=== PATIENT | female | born 1975 | race Caucasian/White ===

== ENCOUNTER → 2018-02-04 07:52 | Outpatient (CLI) | payer MEDICARE, MEDICAID, SELFPAY ==
--- NOTE | 2018-02-04 07:54 | CT_ITS ---
STUDY: CT ABDOMEN AND PELVIS WITHOUT CONTRAST REASON FOR EXAM: Female, 43 years old. Abdominal pain. History of kidney stones. RADIATION DOSAGE (If Supplied By Facility): CTDIvol = ( 22.59 ) mGy, DLP = ( 1083.76 ) mGycm TECHNIQUE: Transaxial images were obtained from the dome of the diaphragm to the symphysis pubis without oral contrast, and without intravenous contrast. Sagittal and coronal images were reconstructed. Individualized dose optimization techniques were used for this CT. COMPARISON: Comparison is made with prior examination dated May 05, 2016. FINDINGS: There is elevation of the left hemidiaphragm. Stable increased markings with areas of confluence in both lower lobes worse on the left side. This most likely than scarring. The visualized portions of the heart are within normal limits. Normal liver. Normal gallbladder and extrahepatic biliary system. Normal spleen. Normal pancreas. Normal bilateral adrenal glands. Normal right kidney. 3 mm calculus in the midportion of the left kidney. Normal visualized stomach. Normal small intestine. There are multiple colonic diverticula consistent with diverticulosis. The appendix is visualized and appears normal. Normal abdominal aorta. Normal inferior vena cava. There is borderline retroperitoneal lymphadenopathy with enlarged nodes no greater than 10mm in the short axis diameter. A Mccarthy catheter is seen within the urinary bladder. The urinary bladder is collapsed. There is evidence of a 0.9 cm x 2.5 cm calculus at the base of the bladder posteriorly. This appears to be entering the urethra. There is evidence of ulcerations in the medial aspect of the left buttock with underlying soft tissue changes. 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 There is evidence of prior Reed hip pinning of the proximal left femur. CT/Abdomen/Pelvis without Cont IMPRESSION: 2.5 cm x 0.9 cm focus at the base of the bladder posteriorly as it enters the urethra. Ulcerations in the medial aspect of the left buttock. Stable scarring and/or atelectasis at the lung bases Electronically Signed: Roosevelt Galvez MD at 13:38 EDT Tel [phone], Service support ,
--- OUTSIDE RECORDS SUMMARY | 2018-02-04 08:00 | XMS RPT_ITS ---
:1975 Author Organization [facility] Care Team Providers Name Role Phone Renzo Siu Attending Unavailable Primay Care Physicia, No Primary Care Unavailable Renzo Siu Attending Unavailable Primay Care Physicia, No Primary Care Unavailable Lavon Vicente Attending Unavailable Lavon Vicente Referring Unavailable Lavon Vicente Primary Care Unavailable PROBLEMS PROBLEMS DATE TYPE CONDITION / CODE ATTENDING STATUS SOURCE 04/13/2017 Unknown ENCOUNTER FOR SoledadabhishekRenzo Active [place] SCREENING FOR [facility] NEOPLASM OF Repository CERVIX / Z12.4(ICD-10) 03/26/2017 Unknown ABNORMAL UTERINE Renzo Siu Active [place] AND VAGINAL Community BLEEDING, Hospital UNSPECIFIED / Repository N93.9(ICD-10) PROCEDURES PROCEDURES No Procedure Records FoundRESULTS RESULTS TRANSVAGINAL Observed: 03/22/2017 Status: F Source: [place] NON- 8:13 AM [facility] REPOSITORY [facility] HOSPITALImaging [id number] [place] [id number] Non-MR#: [id number] Acct: [id number]: HENRIK GARCIA Rep #: [id number]: 1975 F 42 From: Bharathi Cade MDPCP: Care Physician,No Primary Status: REG CLIStudy: Transvaginal Non- Date of Exam: 03/22/17Exam# [id number] Ordering Dr: Renzo Siu MDSTUDY: ULTRASOUND TRANSVAGINALCLINICAL: Female, 42 years old. Postmenopausal vaginal bleedingTECHNIQUE: TransvaginalCOMPARISON: Prior study of 10/20/2016 FINDINGS:Uterus measures 7.2 x 4.5 x 3.4 cm. Uterus is heterogeneous inechogenicity. There are no myometrial masses.Normal endometrial thickness measuring 3 mm. There are no endometrialmasses, and there is no fluid in the endometrial cavity.Normal uterine cervix.Neither ovary was visualized.There is no free fluid in the pelvis. ORDER #: [id number] US/Transvaginal Non-IMPRESSION:The uterus is diffusely heterogeneous in echogenicity. There is noevidence of uterine mass. Endometrium measures 3 mm in thickness and ishyperechoic.Neither ovary was visualized.There is no fluid in the cul-de-sac.Electronically Signed:Bharathi Cade MD at 16:34 EDTTel , Service support , UP: Renzo Siu MD ; No Primary Care Physician Firestopper Technician:Signed PAP I-G W/RFX HRHPV Collected: 03/22/2017 Status: F Source: [place] 8:00 AM [facility] REPOSITORY Order Comment: CYTOLOGY INFORMATION:- CLINICAL INFORMATION: - DATE LMP/MENOPAUSE: MENOPAUSE- COLLECTION VIAL: Thin Prep Vial- SALES OFFICER SOURCE: CERVICAL/ENDOCERVICAL- COLLECTION TECHNIQUE: BRUSH/SPATULASpecimen Comment: [id number] Comment: No. of containers..01 ThinPrep Vial TYPE CODE TESTS RESULT OUT OF RANGE REFERENCE UNITS LAB L7400.0800 Normal . DIAGN Comment Result Comment: NEGATIVE FOR INTRAEPITHELIAL LESION AND MALIGNANCY. LAB L7400.0900 Normal . ADEQ Comment Result Comment: Satisfactory for evaluation. Endocervical and/or squamous metaplasticcells (endocervical component) are present. LAB L7400.1400 Normal . PERFORM Comment Result Comment: Rolo Bob, Air Press Operator (ASCP) LAB L7400.2575 Normal . TEST Comment METHOD Result Comment: This liquid based ThinPrep(R) pap test was screened withthe use of an image guided system. LAB L7400.2600 Normal . COMM . LAB L7400.2700 Normal . PAPSMR Comment Result Comment: The Pap smear is a screening test designed to aid in thedetection of premalignant and malignant conditions of theuterine cervix. It is not a diagnostic procedure andshould not be used as the sole means of detecting cervicalcancer. Both false-positive and false-negative reports dooccur. LAB L7400.2800 Normal . HPV Comment RFLX Result Comment: The HPV DNA reflex criteria were not met with this specimenresult therefore, no HPV testing was performed.Performed at: [address] [id number] Director: Joy Ryan MD, Phone: [phone] Performed By: #### L7400.0350 ####[facility] (refer to report for specific site)refer to report for address and phone number ALLERGIES ALLERGIES DATE TYPE / CODE NAME / CODE REACTION SEVERITY SOURCE 08/16/2016 Drug Sulfa Shortness of Unknown [place] Allergy/416 (Sulfonamide breath Community 303539([facility] Antibiotics)/F[address] [place]) 004450(RXNORM) Repository 08/16/2016 Drug morphine/[id number] Rash Unknown [place] Allergy/416 45(RXNORM) Community 784430([facility] ED CT) Repository 08/16/2016 Drug mometasone Rash Unknown [place] Allergy/416 furoate/[id number] Community 381944([facility] 5(RXNORM) [facility] ED [facility]) Repository 08/16/2016 Drug coconut cant breath Unknown [place] Allergy/416 oil/[id number](RX Community 094910([facility] NORM) [facility] ED CT) Repository 08/16/2016 Drug rivaroxaban/F0060 Rash Unknown [place] Allergy/416 05141(RXNORM) Community 537374([facility] ED CT) Repository 08/16/2016 Drug apixaban/[id number] Rash Unknown [place] Allergy/416 57(RXNORM) [facility] 163239([facility] ED CT) Repository 08/16/2016 Drug Sulfa Shortness of [place] Allergy/416 (Sulfonamide breath Community 979824([facility] Antibiotics)/[address] [place]) 314444(RXNORM) Repository 08/16/2016 Drug morphine/[id number] Rash [place] Allergy/416 45(RXNORM) Community 676083([facility] ED CT) Repository 08/16/2016 Drug mometasone Rash [place] Allergy/416 furoate/[id number] [facility] 354059[facility] ED [facility]) Repository 08/16/2016 Drug coconut cant breath [place] Allergy/416 oil/[id number](RX Community 407876([facility] ED CT) Repository 08/16/2016 Drug rivaroxaban/F0060 Rash [place] Allergy/416 71436(RXNORM) Community 467236([facility] ED CT) Repository 08/16/2016 Drug apixaban/[id number] Rash [place] Allergy/416 57(RXNORM) [facility] 816104([facility] ED CT) Repository ENCOUNTERS ENCOUNTERS ADMIT/DISCHARGE ACCOUNT ADMITTING ENCOUNTER LOCATION SOURCE NUMBER CLASS 02/04/2018 [id number] Ambulatory [place] 7 [facility] ing:CT Repository 03/22/2017 [id number] Ambulatory [place] 9 [facility] ing:LABSPEC Repository 03/22/2017 [id number] Ambulatory [place] 0 [facility] ing:US Repository PAYERS PAYERS ENCOUNTER GUARANTOR PAYER SUBSCRIBER SOURCE 02/04/2018 HENRIK Pascual Primary HENRIK S [place] [facility] Insurance:[place]: [facility] PART A BPolicy [id number] Number: [place] [address]Yfg: [id number] () Date:2018-01-25 02/04/2018 Secondary HENRIK S [place] Insurance:[facility]: [id number] [facility] [id number] Repository e Date:2018-01-25[address]ATTN: [place] [address]WM: 02/04/2018 Tertiary NOT GIVENUNK [place] Insurance:SELF PAY [facility] Number: Effective Repository Date:2018-01-25 03/22/2017 HENRIK [id number] Primary [facility]MEDICARE [facility] CENTERDOB: [place], [place] [address]Fka: PART A [facility] [id number] Hospital () Number: Repository [id number] Date: 03/22/2017 Secondary HENRIK [place] Insurance:[facility]: [facility] Number: [id number] Hospital [id number] Repository e Date:[address]ATTN: [place] [address]CN: 03/22/2017 HERNIK [id number] [address] Primary HENRIK [facility] Insurance:MEDICARE CANTERB[facility] CENTERDOB: [place], [place] [address]Mtk: PART A [facility] [id number] Hospital () Number: Repository [id number] Date: 03/22/2017 Secondary HENRIK [place] Insurance:CARESOURC FREE UNIONDOB: [facility] Number: [id number] Hospital [id number] Repository e Date:[address]ATTN: [place] [address]QZ:
== END ==
PROVIDERS: Family Provider Family Medicine; PCP Family Medicine; Visit Provider Family Medicine
DX: N31.9 Neuromuscular dysfunction of bladder, unspecified (principal); Z87.442 Personal history of urinary calculi
CPT/HCPCS: 74176

== ENCOUNTER 2018-03-09 08:08 | Day surgery (SDC) | payer MEDICARE, MEDICAID, SELFPAY ==
[2018-03-09 08:38] VITALS: BP 89/45; PULSE 72; RESP 16; TEMP 36.1; O2SAT 96; BMI 41.7
[2018-03-09] MEDS: Cefazolin 2 GM in 0.9% Normal Saline 100 ML IV (09:59)
--- NOTE | 2018-03-09 10:49 | PCM.DC.URO ---
Discharge Diet: No Restrictions, Light diet - advance as tolerated Discharge Activity: Return to Normal Activity, May Not Drive - for 2 days. Additional Activity Instructions:: f you have a catheter, remove on ___. If you have any problems after catheter is removed, call [phone] and ask for your doctor to be paged. Please be aware that pain medications may cause nausea. You should typically eat light foods as you take your pain medication. Pain medication may cause constipation, if this is a problem for you, please discuss with your doctor. Allergies/Adverse Reactions: Allergies apixaban [From Eliquis] Allergy (Verified 03/01/18 13:43) Rash coconut oil Allergy (Verified 03/01/18 13:43) cant breath mometasone furoate [From Elocon] Allergy (Verified 03/01/18 13:43) Rash morphine Allergy (Verified 03/01/18 13:43) Rash rivaroxaban [From Xarelto] Allergy (Verified 03/01/18 13:43) Rash Sulfa (Sulfonamide Antibiotics) Allergy (Verified 03/01/18 13:43) Shortness of breath Medications to take at Discharge Levothyroxine [Synthroid] 75 mcg PO DAILY 05/28/15 Duloxetine HCl 120 mg PO QHS 08/21/15 Nystatin [Nyamyc] 1 applicatio TOPICAL BID PRN 08/21/15 Oxybutynin Chloride [Ditropan Xl] 20 mg PO DAILY 05/26/16 Hydrocodone/Acetaminophen [[place] 5-325 Tablet] 1 each PO Q6H PRN 06/17/16 Baclofen [Lioresal] 40 mg PO Q6H 08/16/16 Gabapentin [Neurontin] 1,600 mg PO TIDCM 08/16/16 Acetaminophen [Tylenol] 650 mg PO PRN PRN 03/01/18 Ascorbic Acid [Vitamin C] 1,000 mg PO QHS 03/01/18 Bisacodyl 10 mg RC PRN PRN 03/01/18 Cephalexin [Keflex] 250 mg PO DAILY 03/01/18 Cholecalciferol (Vitamin D3) [Vitamin D3] 5,000 unit PO DAILY 03/01/18 Guaifenesin [Robitussin] 10 ml PO Q4H PRN PRN 03/01/18 Lactobacillus Rhamnosus GG [Culturelle] 1 each PO DAILY 03/01/18 Linaclotide [Linzess] 290 mcg PO DAILY 03/01/18 Methenamine Hippurate 0.5 gm PO QHS 03/01/18 Naproxen [Naprosyn] 500 mg PO BID 03/01/18 Omeprazole 20 mg PO DAILY 03/01/18 Trazodone HCl 75 mg PO QHS 03/01/18 Primary Care Physician: Lavon Vicente MD [Primary Care Provider] - Test Results: Test results from this visit will be discussed in further detail at your follow-up appointment, if applicable. Please Follow Up With: Flaco Choi MD When: please call to make an appointment.
--- NOTE | 2018-03-09 10:52 | PCM.OPRPT ---
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 This will be done with laser. Patient was taken back to the operating room at the smooth induction of general anesthesia she was placed supine on the table she underwent general anesthesia, she was placed in dorsal lithotomy position, she had SP tube this was clamped left this in place and then the urethra and vaginal area prepped and draped with Betadine in usual sterile fashion. Went into the bladder and immediately encountered a very large stone at the base of the bladder about 3 cm in size I then used 1000 laser fiber and with the settings of 3.5 J and 6 Hz laser the low stones and a tiny pieces and then as I would pull the scope out the pieces the past of the urethra and came out little tiny pieces, it took about an hour to laser out the stone once the stone was completely lasered and removed then left the SP tube in place no catheter was placed through the urethra the urine was fairly clear to the SP tube and patient anesthetic was reversed taken back to PACU good condition she will follow-up in the office in about a month for checkup. Type of Anesthesia:: General Drains: sp tube - Admit VTE Documentation VTE Present on Admission: No VTE Mechan Device Prophylaxis: SCD's VTE Pharm Prophylaxis ordered?: No
[2018-03-09 11:06] VITALS: BP 105/85; BP 89/45; PULSE 78; RESP 16; TEMP 36.3; O2SAT 94
[2018-03-09 11:17] VITALS: BP 89/45; BP 95/77; PULSE 71; RESP 16; O2SAT 93
[2018-03-09 11:32] VITALS: BP 85/40; BP 89/45; PULSE 64; RESP 16; TEMP 36.3; O2SAT 94
[2018-03-09] MEDS: Acetaminophen 325 MG Tablet 650 MG PO (12:16)
--- NOTE | 2018-03-09 12:24 | SUR.PHASEII ---
REPORT CALLED TO [facility], NURSE ALEXANDRO. TYLENOL GIVEN FOR DISCOMFORT AT 1215. [facility] CALLED TO ARRANGE TRANSPORT BACK TO [facility].
[2018-03-09 12:26] VITALS: BP 89/45
== END 2018-03-09 12:42 | disposition intermediate care facility (04) ==
LOC: SDC 08:15 → AC 08:15
PROVIDERS: Family Provider Family Medicine; PCP Family Medicine; Visit Provider Urology
PROC: (CPT 52318; principal; 2018-03-09 09:40)
DX: N21.0 Calculus in bladder (principal); N31.9 Neuromuscular dysfunction of bladder, unspecified; Z87.440 Personal history of urinary (tract) infections; G82.54 Quadriplegia, C5-C7 incomplete; I10 Essential (primary) hypertension; E66.9 Obesity, unspecified; Z68.41 Body mass index [BMI] 40.0-44.9, adult
CPT/HCPCS: 52318; J7120; J2405

== ENCOUNTER → 2018-04-05 11:25 | Outpatient (CLI) | payer MEDICARE, MEDICAID, SELFPAY ==
[2018-04-05 12:44] LABS: Follicle Stimulating Hormone 5.6 mIU/mL
[2018-04-07 11:21] LABS: HPV Reflexed? NOT INDICATED
== END ==
PROVIDERS: Visit Provider Obstetrics & Gynecology
DX: N92.6 Irregular menstruation, unspecified (principal); Z12.4 Encounter for screening for malignant neoplasm of cervix
CPT/HCPCS: 36415; 83001; 88175; G0145

== ENCOUNTER → 2018-04-15 13:21 | Outpatient (CLI) | payer MEDICARE, MEDICAID, SELFPAY ==
--- NOTE | 2018-04-15 13:25 | US_ITS ---
STUDY: ULTRASOUND BREAST - RIGHT REASON FOR EXAM: Female, 43 years old. Screening ultrasound. The patient is quadriplegic. TECHNIQUE: Axial and longitudinal images of the RIGHT breast were performed with a high resolution ultrasound transducer. COMPARISON: None. FINDINGS: RIGHT Breast: The entire breast was examined by ultrasound. 5 cysts are seen. The largest cyst measures 1.1 cm x 0.7 cm x 0.6 cm. This is at the 11:00 position in the breast at 4 cm from the nipple. IMPRESSION: Multiple cysts. ASSESSMENT CATEGORY: BIRADS Category 2: Benign. A letter regarding these results will be sent to the patient by the facility within 30 days. Electronically Signed: Roosevelt Galvez MD at 9:09 EST Tel [phone], Service support , STUDY: ULTRASOUND BREAST - LEFT REASON FOR EXAM: Female, 43 years old. Screening ultrasound. The patient is quadriplegic. TECHNIQUE: Axial and longitudinal images of the LEFT breast were performed with a high resolution ultrasound transducer. COMPARISON: None. FINDINGS: LEFT Breast: The entire breast was examined by ultrasound. 2 small cysts are seen at the 10:00 position in the breast. The larger measures 7 mm x 7 mm x 5 mm. There is a 1 cm x 1.1 cm x 0.6 cm slightly echogenic nodule at the lung o'clock position the breast at 3 cm from nipple. A similar-appearing nodule measuring 1.3 cm x 1.5 cm x 0.8 cm is seen at the 10:00 position of the breast 5 cm some nipple. It is also evidence of a 1.4 cm x 1.7 cm x 0.8 cm slightly echogenic nodule at the 9:00 position in the breast at 5 cm from nipple. These most likely represent small lipomas. US/Breast Complete Unilateral IMPRESSION: 2 small cysts in 3 small lipomas as dictated. ASSESSMENT CATEGORY: BIRADS Category 2: Benign. A letter regarding these results will be sent to the patient by the facility within 30 days. Electronically Signed: Roosevelt Galvez MD at 9:11 EST Tel [phone], Service support ,
== END ==
PROVIDERS: Family Provider Family Medicine; PCP Family Medicine; Referring Provider Obstetrics & Gynecology; Visit Provider Obstetrics & Gynecology
DX: N60.12 Diffuse cystic mastopathy of left breast (principal); G82.50 Quadriplegia, unspecified
CPT/HCPCS: 76641

== ENCOUNTER 2018-05-27 14:00 | Day surgery (SDC) | payer MEDICARE, MEDICAID, SELFPAY ==
[2018-05-27 14:24] VITALS: BP 115/74; PULSE 59; RESP 16; TEMP 36.3; O2SAT 95; BMI 40.1
--- NOTE | 2018-05-27 14:50 | RAD_ITS ---
PROCEDURE: Epidural block. DATE OF EXAMINATION: May 27, 2018. INDICATION: Female, 43 years old. Chronic back pain. FLUOROSCOPY TIME (if supplied): (0:11) minutes/seconds Intraoperative imaging provided for epidural block. RAD/Spine 1 View Any Level IMPRESSION: Intraoperative imaging provided for dural block. Electronically Signed: Roosevelt Galvez MD at 10:24 EST Tel [phone], Service support ,
[2018-05-27] MEDS: Triamcinolone Acetonide 40 MG/ML Vial (15:21)
[2018-05-27 15:30] VITALS: BP 107/81; BP 115/74; PULSE 63; RESP 16; TEMP 36.5; O2SAT 93
[2018-05-27 15:35] VITALS: BP 115/74; BP 130/72; PULSE 54; RESP 16; O2SAT 95
[2018-05-27 15:40] VITALS: BP 115/74; BP 120/66; PULSE 59; RESP 16; O2SAT 95
[2018-05-27 15:45] VITALS: BP 115/74; BP 118/83; PULSE 60; RESP 16; TEMP 36.5; O2SAT 96
[2018-05-27 17:31] VITALS: BP 115/74; BP 124/74; PULSE 63; RESP 16; O2SAT 96
--- OUTSIDE RECORDS SUMMARY | 2018-08-31 04:49 | XMS RPT_ITS ---
:1975 Author Organization OHIP Care Team Providers Name Role Phone Lavon Vicente Attending Unavailable Lavon Vicente Referring Unavailable Lavon Vicente Primary Care Unavailable Flaco Choi Attending Unavailable Flaco Choi Referring Unavailable Lavon Vicente Primary Care Unavailable Renzo Siu Attending Unavailable Renzo Siu Attending Unavailable Renzo Siu Referring Unavailable Lavon Vicente Primary Care Unavailable Kenia Hammond Attending Unavailable Kenia Hammond Referring Unavailable Lavon Vicente Primary Care Unavailable PROBLEMS PROBLEMS DATE TYPE CONDITION / CODE ATTENDING STATUS SOURCE 04/05/2018 Unknown Z12.4 - Encounter Renzo Siu Active [place]adal[place] for screening for [facility] malignant Hospital neoplasm of Repository cervix / Z12.4(ICD-10) 04/05/2018 Unknown N92.6 - Irregular Renzo Siu Active Jose Guadalupe menstruation, Community unspecified / Hospital N92.6(ICD-10) Repository PROCEDURES PROCEDURES No Procedure Records FoundRESULTS RESULTS SPINE 1 VIEW ANY Observed: 05/27/2018 Status: F Source: [place] LEVEL 3:45 AM [facility] Imaging Services [address] [place] [address] Spine 1 View Any Level MR#: [id number] Acct: [id number] Name: HENRIK GARCIA Rep #: [id number] : 1975 F 43 From: Roosevelt Galvez MD PCP: Lavon Vicente MD Status: [facility] Study: Spine 1 View Any Level Date of Exam: 05/27/18 Exam# [id number] Ordering Dr: Kenia Hammond MD PROCEDURE: Epidural block. DATE OF EXAMINATION: May 27, 2018. INDICATION: Female, 43 years old. Chronic back pain. FLUOROSCOPY TIME (if supplied): (0:11) minutes/seconds Intraoperative imaging provided for epidural block. RAD/Spine 1 View Any Level IMPRESSION: Intraoperative imaging provided for dural block. Electronically Signed: Roosevelt Galvez MD at 10:24 EST Tel [phone], Service support , CC: Kenia Hammond MD; Lavon Vicente MD Tuck Pointer: Signed BREAST COMPLETE Observed: 04/15/2018 Status: F Source: [place] UNILATERAL 1:43 PM [facility] Imaging Services [address] [place] [address] Breast Complete Unilateral MR#: [id number] Acct: [id number] Name: HENRIK GARCIA Rep #: [id number] : 1975 F 43 From: Roosevelt Galvez MD PCP: Vicente MD,Lavon Status: REG CLI Study: Breast Complete Unilateral Date of Exam: 04/15/18 Exam# [id number] Ordering Dr: Renzo Siu MD STUDY: ULTRASOUND BREAST - RIGHT REASON FOR EXAM: Female, 43 years old. Screening ultrasound. The patient is quadriplegic. TECHNIQUE: Axial and longitudinal images of the RIGHT breast were performed with a high resolution ultrasound transducer. COMPARISON: None. FINDINGS: RIGHT Breast: The entire breast was examined by ultrasound. 5 cysts are seen. The largest cyst measures 1.1 cm x 0.7 cm x 0.6 cm. This is at the 11:00 position in the breast at 4 cm from the nipple. IMPRESSION: Multiple cysts. ASSESSMENT CATEGORY: BIRADS Category 2: Benign. A letter regarding these results will be sent to the patient by the facility within 30 days. Electronically Signed: Roosevelt Galvez MD at 9:09 EST Tel [phone], Service support , STUDY: ULTRASOUND BREAST - LEFT REASON FOR EXAM: Female, 43 years old. Screening ultrasound. The patient is quadriplegic. TECHNIQUE: Axial and longitudinal images of the LEFT breast were performed with a high resolution ultrasound transducer. COMPARISON: None. FINDINGS: LEFT Breast: The entire breast was examined by ultrasound. 2 small cysts are seen at the 10:00 position in the breast. The larger measures 7 mm x 7 mm x 5 mm. There is a 1 cm x 1.1 cm x 0.6 cm slightly echogenic nodule at the lung o'clock position the breast at 3 cm from nipple. A similar-appearing nodule measuring 1.3 cm x 1.5 cm x 0.8 cm is seen at the 10:00 position of the breast 5 cm some nipple. It is also evidence of a 1.4 cm x 1.7 cm x 0.8 cm slightly echogenic nodule at the 9:00 position in the breast at 5 cm from nipple. These most likely represent small lipomas. US/Breast Complete Unilateral IMPRESSION: 2 small cysts in 3 small lipomas as dictated. ASSESSMENT CATEGORY: BIRADS Category 2: Benign. A letter regarding these results will be sent to the patient by the facility within 30 days. Electronically Signed: Roosevelt Galvez MD at 9:11 EST Tel [phone], Service support , CC: Renzo Sui MD; Lavon Vicente MD Tuck Pointer: Signed FOLLICLE STIMULATING Collected: 04/05/2018 Status: F Source: [place] HORMONE 11:29 AM [facility] [place] CODE TESTS RESULT OUT OF RANGE REFERENCE UNITS LAB L3100.5125 mIU/mL Normal FSH 5.6 Result Comment: NORMAL REFERENCE RANGES FEMALE FOLLICULAR 2.3 - 12.6 mIU/mL MID-CYCLE PEAK 5.2 - 17.5 mIU/mL LUTEAL 1.7 - 12.9 mIU/mL POST-MENOPAUSAL ON MHT 5.9 - 72.8 mIU/mL NOT ON MHT 12.7 - 132.2 mlU/mL MALE 0.7 - 10.8 mIU/mL NEW TEST METHOD AND REFERENCE RANGES NOVEMBER 02, 2011 Performed By: #### L3100.5125 #### [facility] [address] [place], [address] PAP I-G W/RFX HRHPV Collected: 04/05/2018 Status: F Source: [place] 11:20 AM [facility] [place] Order Comment: CYTOLOGY INFORMATION: - CLINICAL INFORMATION: - DATE LMP/MENOPAUSE: 03/08/18 LMP - COLLECTION VIAL: Thin Prep Vial - EMBROIDERY FINISHER SOURCE: CERVICAL/ENDOCERVICAL - COLLECTION TECHNIQUE: BRUSH/SPATULA Specimen Comment: [id number] Specimen Comment: Source.............Cervix;Endocervix Specimen Comment: LMP / Prev Treat...[id number]=[id number] Specimen Comment: No. of containers..01 ThinPrep Vial TYPE CODE TESTS RESULT OUT OF RANGE REFERENCE UNITS LAB L7400.0800 . Normal DIAGN Comment Result Comment: NEGATIVE FOR INTRAEPITHELIAL LESION AND MALIGNANCY. LAB L7400.0900 . Normal ADEQ Comment Result Comment: Satisfactory for evaluation. No endocervical component is identified. LAB L7400.1400 . Normal PERFORM Comment Result Comment: Misty Loera, Power Lineworker (ASCP) LAB L7400.2575 . Normal TEST METHOD Comment Result Comment: This liquid based ThinPrep(R) pap test was screened with the use of an image guided system. LAB L7400.2600 . Normal . COMM LAB L7400.2700 . Normal PAPSMR Comment Result Comment: The Pap smear is a screening test designed to aid in the detection of premalignant and malignant conditions of the uterine cervix. It is not a diagnostic procedure and should not be used as the sole means of detecting cervical cancer. Both false-positive and false-negative reports do occur. LAB L7400.2800 . Normal HPV RFLX Comment Result Comment: The HPV DNA reflex criteria were not met with this specimen result therefore, no HPV testing was performed. Performed at: [address] [id number] [employer] Powerplant Supervisor: Joy Ryan MD, Phone: [phone] Performed By: #### L7400.0350 #### [facility] (refer to report for specific site) refer to report for address and phone number OPERATIVE REPORT Observed: 03/09/2018 Status: F Source: [place] 10:56 AM [facility] [place] [facility] Medical Records Department [address] [place] [address] Operative Report 03/09/18 1052 MR#: [id number] Acct: [id number] Name: RADHAHENRIK S Rep #: [id number] : 1975 43 From: Flaco Choi MD PCP: Lavon Vicente MD Status: REG SDC Y Location: [place] [address] 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 This will be done with laser. Patient was taken back to the operating room at the smooth induction of general anesthesia she was placed supine on the table she underwent general anesthesia, she was placed in dorsal lithotomy position, she had SP tube this was clamped left this in place and then the urethra and vaginal area prepped and draped with Betadine in usual sterile fashion. Went into the bladder and immediately encountered a very large stone at the base of the bladder about 3 cm in size I then used 1000 laser fiber and with the settings of 3.5 J and 6 Hz laser the low stones and a tiny pieces and then as I would pull the scope out the pieces the past of the urethra and came out little tiny pieces, it took about an hour to laser out the stone once the stone was completely lasered and removed then left the SP tube in place no catheter was placed through the urethra the urine was fairly clear to the SP tube and patient anesthetic was reversed taken back to PACU good condition she will follow-up in the office in about a month for checkup. Type of Anesthesia:: General Drains: sp tube - Admit VTE Documentation VTE Present on Admission: No VTE Mechan Device Prophylaxis: SCD's VTE Pharm Prophylaxis ordered?: No 03/09/18 1056 <Electronically signed by Flaco Choi MD> Date Flaco Choi MD CC: Flaco Choi MD; Lavon Vicente MD Signed DISCHARGE INSTRUCTION Observed: 03/09/2018 Status: F Source: [place] 10:50 AM [facility] [place] [facility] Medical Records Department [address] [place] [address] Instructions for Home/Discharge Instructions 03/09/18 1049 MR#: [id number] Acct: [id number] Name: HENRIK GARCIA Rep #: [id number] : 1975 43 From: Flaco Choi MD PCP: Lavon Vicente MD Status: REG [facility] Discharge Diet: No Restrictions, Light diet - advance as tolerated Discharge Activity: Return to Normal Activity, May Not Drive - for 2 days. Additional Activity Instructions:: f you have a catheter, remove on ___. If you have any problems after catheter is removed, call [phone] and ask for your doctor to be paged. Please be aware that pain medications may cause nausea. You should typically eat light foods as you take your pain medication. Pain medication may cause constipation, if this is a problem for you, please discuss with your doctor. Allergies/Adverse Reactions: Allergies apixaban [From Eliquis] Allergy (Verified 03/01/18 13:43) Rash coconut oil Allergy (Verified 03/01/18 13:43) cant breath mometasone furoate [From Elocon] Allergy (Verified 03/01/18 13:43) Rash morphine Allergy (Verified 03/01/18 13:43) Rash rivaroxaban [From Xarelto] Allergy (Verified 03/01/18 13:43) Rash Sulfa (Sulfonamide Antibiotics) Allergy (Verified 03/01/18 13:43) Shortness of breath Medications to take at Discharge Levothyroxine [Synthroid] 75 mcg PO DAILY 05/28/15 Duloxetine HCl 120 mg PO QHS 08/21/15 Nystatin [Nyamyc] 1 applicatio TOPICAL BID PRN 08/21/15 Oxybutynin Chloride [Ditropan Xl] 20 mg PO DAILY 05/26/16 Hydrocodone/Acetaminophen [[place] 5-325 Tablet] 1 each PO Q6H PRN 06/17/16 Baclofen [Lioresal] 40 mg PO Q6H 08/16/16 Gabapentin [Neurontin] 1,600 mg PO TIDCM 08/16/16 Acetaminophen [Tylenol] 650 mg PO PRN PRN 03/01/18 Ascorbic Acid [Vitamin C] 1,000 mg PO QHS 03/01/18 Bisacodyl 10 mg RC PRN PRN 03/01/18 Cephalexin [Keflex] 250 mg PO DAILY 03/01/18 Cholecalciferol (Vitamin D3) [Vitamin D3] 5,000 unit PO DAILY 03/01/18 Guaifenesin [Robitussin] 10 ml PO Q4H PRN PRN 03/01/18 Lactobacillus Rhamnosus GG [Culturelle] 1 each PO DAILY 03/01/18 Linaclotide [Linzess] 290 mcg PO DAILY 03/01/18 Methenamine Hippurate 0.5 gm PO QHS 03/01/18 Naproxen [Naprosyn] 500 mg PO BID 03/01/18 Omeprazole 20 mg PO DAILY 03/01/18 Trazodone HCl 75 mg PO QHS 03/01/18 Primary Care Physician: Lavon Vicente MD [Primary Care Provider] - Test Results: Test results from this visit will be discussed in further detail at your follow-up appointment, if applicable. Please Follow Up With: Flaco Choi MD When: please call to make an appointment. 03/09/18 1050 <Electronically signed by Flaco Choi MD> Date Flaco Choi MD CC: Lavon Vicente MD ABDOMEN/PELVIS WITHOUT Observed: 02/04/2018 Status: F Source: [place] CONT 7:54 AM [facility] [place] [facility] Imaging Services [address] [place] [address] Abdomen/Pelvis without Cont MR#: [id number] Acct: [id number] Name: HENRIK GARCIA Rep #: [id number] : 1975 F 43 From: Roosevelt Glavez MD PCP: Lavon Vicente MD Status: REG CLI Study: Abdomen/Pelvis without Cont Date of Exam: 02/04/18 Exam# [id number] Ordering Dr: Lavon Vicente MD STUDY: CT ABDOMEN AND PELVIS WITHOUT CONTRAST REASON FOR EXAM: Female, 43 years old. Abdominal pain. History of kidney stones. RADIATION DOSAGE (If Supplied By Facility): CTDIvol = ( 22.59 ) mGy, DLP = ( 1083.76 ) mGycm TECHNIQUE: Transaxial images were obtained from the dome of the diaphragm to the symphysis pubis without oral contrast, and without intravenous contrast. Sagittal and coronal images were reconstructed. Individualized dose optimization techniques were used for this CT. COMPARISON: Comparison is made with prior examination dated May 05, 2016. FINDINGS: There is elevation of the left hemidiaphragm. Stable increased markings with areas of confluence in both lower lobes worse on the left side. This most likely than scarring. The visualized portions of the heart are within normal limits. Normal liver. Normal gallbladder and extrahepatic biliary system. Normal spleen. Normal pancreas. Normal bilateral adrenal glands. Normal right kidney. 3 mm calculus in the midportion of the left kidney. Normal visualized stomach. Normal small intestine. There are multiple colonic diverticula consistent with diverticulosis. The appendix is visualized and appears normal. Normal abdominal aorta. Normal inferior vena cava. There is borderline retroperitoneal lymphadenopathy with enlarged nodes no greater than 10mm in the short axis diameter. A Mccarthy catheter is seen within the urinary bladder. The urinary bladder is collapsed. There is evidence of a 0.9 cm x 2.5 cm calculus at the base of the bladder posteriorly. This appears to be entering the urethra. There is evidence of ulcerations in the medial aspect of the left buttock with underlying soft tissue changes. 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 There is evidence of prior Reed hip pinning of the proximal left femur. CT/Abdomen/Pelvis without Cont IMPRESSION: 2.5 cm x 0.9 cm focus at the base of the bladder posteriorly as it enters the urethra. Ulcerations in the medial aspect of the left buttock. Stable scarring and/or atelectasis at the lung bases Electronically Signed: Roosevelt Galvez MD at 13:38 EDT Tel [phone], Service support , CC: Lavon Vicente MD Tuck Pointer: Signed ALLERGIES ALLERGIES DATE TYPE / CODE NAME / CODE REACTION SEVERITY SOURCE 03/01/2018 Drug Sulfa Shortness of Unknown [place] Allergy/416 (Sulfonamide breath [facility] 338657([facility] Antibiotics)/[address]) 911141(RXNORM) Repository 03/01/2018 Drug morphine/[id number] Rash Unknown Jose Guadalupe Allergy/416 45(RXNORM) [place] 781242([facility] ED CT) Repository 03/01/2018 Drug mometasone Rash Unknown Jose Guadalupe Allergy/416 furoate/[id number] [place] [id number]([facility](RXNORM) [facility] ED [facility]) Repository 03/01/2018 Drug coconut cant breath Unknown Jose Guadalupe Allergy/416 oil/[id number](RX [facility] 688282([facility] 03/01/2018 Drug rivaroxaban/F0060 Rash Unknown Jose Guadal[place] Allergy/416 44140(RXNORM) [facility] 086350([facility] ED CT) Repository 03/01/2018 Drug apixaban/[id number] Rash Unknown [place] Allergy/416 57(RXNORM) [facility] 658373([facility] ED CT) Repository ENCOUNTERS ENCOUNTERS ADMIT/DISCHARGE ACCOUNT ADMITTING ENCOUNTER LOCATION SOURCE NUMBER CLASS 05/27/2018/ [id number] Ambulatory [place] 8 5 [facility] ing:SDCRoom: Repository AC07 04/15/2018 [id number] Ambulatory Jose Guadalupe [place] 9 [facility] ing:US Repository 04/05/2018 [id number] Ambulatory Jose Guadalupe [place] 5 [facility] ing:WOBLAB Repository 03/09/2018/ [id number] Ambulatory [place] 8 0 [facility] ing:SDCRoom: Repository AC14 02/04/2018 [id number] Ambulatory [place] 7 [facility] ing:CT Repository PAYERS PAYERS ENCOUNTER GUARANTOR PAYER SUBSCRIBER SOURCE 05/27/2018 HENRIK Pascual Primary [facility] [place]: [facility] PPOPolicy Number: [id number] [id number] Repository [place], [place] [address]Icz: e Date:4415-29-81OP () [address] [address], [place] [address]ZO: 05/27/2018 Secondary HENRIK S [place] Insurance:CARESOURC TACOMADOB: [facility] Number: [id number] Hospital [id number] Repository e Date:2018-05-06[address]ATTN: [place] [address]KW: 05/27/2018 Tertiary NOT GIVENUNK [place] Insurance:SELF PAY [facility] Number: Effective Repository Date:2018-05-06 04/15/2018 HENRIK GARCIA4110 E Primary HENRIK Dixon [facility] Insurance:MEDICARE [place]OB: [facility] PART A [place]lic [id number] Number: Repository [id number]: [id number] () Date:2018-04-05 04/15/2018 Secondary HENRIK S [place] Insurance:[facility]C [facility] Number: [id number] Hospital [id number] Repository e Date:2018-04-05[address]ATTN: [place] [address]LZ: 04/15/2018 Tertiary NOT GIVENUNK Jose Guadalupe Insurance:SELF PAY [facility] Number: Effective Repository Date:2018-04-05 04/05/2018 HENRIK GARCIA4110 E Primary HENRIK S Jose Guadalupe [facility] Insurance:MEDICARE [place]TER[place]YDOB: [facility] A [facility] [id number] Number: Repository [address]Phl: [id number] (HP) Date:2018-04-05 04/05/2018 Secondary HENRIK S [place] Insurance:[facility]: [facility] Number: [id number] Hospital [id number] Repository e Date:2018-04-05[address]ATTN: [place] [address]MD: 04/05/2018 Tertiary NOT GIVENUNK [place] Insurance:SELF PAY [facility] Number: Effective Repository Date:2018-04-05 03/09/2018 HENRIK S [id number] E Primary HENRIK S Jose Guadalupe [facility] Insurance:MEDICARE CANTERBAN[facility]UNDER[facility] CENTERDOB: [facility] A [facility] [id number] Number: Repository [id number]: [id number] (HP) Date:2018-02-15 03/09/2018 Secondary HENRIK S [place] Insurance:CAR[facility]OURC [facility]ITAL[facility]: [facility] Number: [id number] Hospital [id number] Repository e Date:2018-02-15[address]ATTN: [place] [address]YJ: 03/09/2018 Tertiary NOT GIVENUNK Jose Guadalupe Insurance:SELF PAY [facility] Number: Effective Repository Date:2018-02-15 02/04/2018 HENRIK S Primary HENRIK S Jose Guadalupe [facility] Insurance:MEDICARE CANTERBAN[facility]BIRD [facility]ICAL CENTERDOB: [address] A [facility] [id number] [facility] Number: Repository [place], [place] [address]Dbr: [id number] (HP) Date:2018-01-25 02/04/2018 Secondary HENRIK S [place] Insurance:CARESOURC [place]TER[place]YDOB: Community EPolicy Number: [id number] Hospital [id number] Repository e Date:2018-01-[address]ATTN: [place] [address]IX: 02/04/2018 Tertiary NOT GIVENUNK Jose Guadalupe Insurance:SELF PAY [facility] Number: Effective Repository Date:2018-01-25
== END 2018-05-27 17:39 | disposition home or self-care (01) ==
LOC: SDC 14:00 → AC 14:02
PROVIDERS: Family Provider Family Medicine; PCP Family Medicine; Referring Provider Anesthesiology Pain Medicine; Visit Provider Anesthesiology Pain Medicine
PROC: 3E0S3BZ Introduction of Anesthetic Agent into Epidural Space, Percutaneous Approach (ICD-10-PCS; CPT 62322; principal; 2018-05-27 14:45)
DX: M51.36 Other intervertebral disc degeneration, lumbar region (principal); G89.29 Other chronic pain; M54.9 Dorsalgia, unspecified; K21.9 Gastro-esophageal reflux disease without esophagitis; G82.50 Quadriplegia, unspecified; E03.9 Hypothyroidism, unspecified; G47.30 Sleep apnea, unspecified
CPT/HCPCS: 62323; 64483; 72020; J7120; J3490

== ENCOUNTER → 2018-07-18 13:25 | Outpatient (CLI) | payer MEDICARE, MEDICAID, SELFPAY ==
--- NOTE | 2018-07-18 13:30 | US_ITS ---
STUDY: ULTRASOUND OF THE FEMALE PELVIS - COMPLETE REASON FOR EXAM: Female, 43 years old. Prolonged menses. The patient is perimenopausal. LMP: June 03, 2018. TECHNIQUE: Transabdominal and Transvaginal TECHNICAL QUALITY: Adequate. COMPARISON: None. FINDINGS: The uterus is anteverted and is in a midline position. The uterus measures 10.7 cm x 5.5 cm x 4.6 cm. Normal uterine cervix. The endometrium measures 6.0 mm in thickness, and is hyperechoic. There is no demonstrated endometrial mass. The uterus is of heterogeneous echotexture. 2 fibroids are seen. The larger measures 2 cm x 2 cm x 1.5 cm. I.U.D. - The patient does not have an I.U.D. The right ovary is non-visualized. The left ovary is non-visualized. There is no fluid in the cul-de-sac. Polycystic ovary disease: No. US/Transvaginal Non- IMPRESSION: Enlarged fibroid uterus. Electronically Signed: Roosevelt Galvez MD at 14:54 EST , Service support ,
--- NOTE | 2018-07-18 13:30 | US_ITS ---
STUDY: ULTRASOUND OF THE FEMALE PELVIS - COMPLETE REASON FOR EXAM: Female, 43 years old. Prolonged menses. The patient is perimenopausal. LMP: June 03, 2018. TECHNIQUE: Transabdominal and Transvaginal TECHNICAL QUALITY: Adequate. COMPARISON: None. FINDINGS: The uterus is anteverted and is in a midline position. The uterus measures 10.7 cm x 5.5 cm x 4.6 cm. Normal uterine cervix. The endometrium measures 6.0 mm in thickness, and is hyperechoic. There is no demonstrated endometrial mass. The uterus is of heterogeneous echotexture. 2 fibroids are seen. The larger measures 2 cm x 2 cm x 1.5 cm. I.U.D. - The patient does not have an I.U.D. The right ovary is non-visualized. The left ovary is non-visualized. There is no fluid in the cul-de-sac. Polycystic ovary disease: No. US/Pelvic (Non ) IMPRESSION: Enlarged fibroid uterus. Electronically Signed: Roosevelt Galvez MD at 14:54 EST , Service support ,
== END ==
PROVIDERS: Family Provider Family Medicine; PCP Family Medicine; Referring Provider Obstetrics & Gynecology; Visit Provider Obstetrics & Gynecology
DX: N92.1 Excessive and frequent menstruation with irregular cycle (principal)
CPT/HCPCS: 76830; 76856

== ENCOUNTER 2018-08-27 21:01 | Observation (INO) | payer MEDICARE, MEDICAID, SELFPAY ==
[2018-08-23 11:06] VITALS: BMI 41.0
[2018-08-27 21:04] VITALS: BP 161/129; PULSE 77; RESP 20; TEMP 37.1; O2SAT 94; BMI 41.2
--- NOTE | 2018-08-27 22:04 | RAD_ITS ---
STUDY: X-RAY CHEST REASON FOR EXAM: Female, 43 years old. Decreased urine output. TECHNIQUE: 2 frontal images of the chest. COMPARISON: October 16, 2016 FINDINGS: There is no new focal consolidation. Normal size heart. Normal mediastinum and bia. Normal visualized pulmonary arteries. Normal visualized aortic arch and descending thoracic aorta. There is a dextroscoliosis of the lumbar spine. There are postsurgical changes of the lower visualized cervical spine. Normal visualized ribs, clavicles, and shoulders. There is no demonstrated abnormality of the visualized soft tissue structures of the upper abdomen. RAD/Chest 1 View (Portable) IMPRESSION: No acute cardiopulmonary process. Electronically Signed: Paula Rasheed MD at 22:49 EDT Tel , Service support ,
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
[2018-08-27 22:38] LABS: Anion Gap 5 (5-15); BUN 14 mg/dL (7-18); BUN/Creat Ratio 33.2 RATIO (10-20); Calcium,Total 8.1 mg/dL (8.5-10.1); Chloride 103 mmol/L (98-107); Creatinine, Serum 0.42 mg/dL (0.55-1.02); EST Glomerular Filtration Rate 173 mL/min (>60); Est Glom Filt Rate - Afr Amer 209 mL/min (>60); Glucose 114 mg/dL (74-106); Potassium 3.4 mmol/L (3.5-5.1); Sodium Level 135 mmol/L (136-145)
[2018-08-27 22:43] LABS: Absolute Lymphocyte Count 1.89 X10^3/ul (0.83-4.51); Absolute Neutrophil Count 12.6 X10^3/uL (2.0-7.7); Basophil# 0.02 X10^3/uL; Basophil% 0.1 % (0-1); Eosinophil# 0.01 X10^3/uL; Eosinophils% 0.1 % (0-5); Hematocrit 30.3 % (37-47); Hemoglobin 9.4 g/dl (12.0-15.0); Lymphocyte # 1.89 X10^3/ul (4.0); Lymphocyte % 11.3 % (19-41); Mean Corpuscular Hgb 25.1 pg (27.0-32.0); Mean Platelet Vol. 9.2 fl (6.2-12.0); Monocyte# 2.12 X10^3/uL; Monocyte% 12.7 % (0-10); Neutrophil # 12.57 X10^3/uL (2.7-7.7); Neutrophil % 75.4 % (47-70); Platelet Count 355 K/mm3 (150-450); RBC Distribution Width CV 16.1 % (11.6-14.6); RBC Distribution Width SD 47.9 fl (35.1-43.9); Red Blood Count 3.74 M/mm3 (4.2-5.4); White Blood Count 16.7 K/mm3 (4.4-11.0)
[2018-08-27 22:44] LABS: Differential Indicated SCAN CRITERIA MET; POSITIVE COUNT NO; POSITIVE DIFFERENTIAL YES; POSITIVE MORPHOLOGY NO
[2018-08-27] MEDS: 0.9% Normal Saline 1,000 ML 1000 ML IV (22:46)
[2018-08-27 22:51] LABS: Mucous, Urine 0 SEEN /hpf (<or=2+); Red Blood Cells-Urine 0 SEEN /hpf (0-5)
[2018-08-27 22:52] LABS: Color, Urine Yellow (Yellow); Glucose, Dipstick Normal (Normal); Ketone-Dipstick Negative (Negative); Leukocyte Esterase-Dipstick 500 /ul (Negative); Nitrite-Dipstick Negative (Negative); Occult Blood-Urine 25 /ul (Negative); Protein-Dipstick 30 mg/dl (Negative); Urine Bilirubin Dipstick Negative (Negative); Urine Clarity Sl. Cloudy (Clear); Urine Urobilinogen 1 mg/dl (Normal)
[2018-08-27] MEDS: Acetaminophen 500 MG Tablet 1000 MG PO (22:55)
[2018-08-27 22:57] VITALS: BP 82/60; PULSE 73; RESP 15; TEMP 36.6; O2SAT 97
[2018-08-27 22:59] LABS: Bacteria RARE /hpf (None Seen); White Blood Cells 0-5 SEEN /hpf (0-5)
[2018-08-27 23:00] LABS: Amorphous Sediment 1+; Squamous Epithelial Cells - UA 0-5 SEEN /hpf (5-10)
--- NOTE | 2018-08-27 23:09 | ED.RN ---
DR. FUNES MADE AWARE THAT PATIENT'S MANUAL BP IS 82/60. I WENT IN WITH HIM TO CHECK HER BACK SIDE AND SHE HAS TWO DECUBITI.
[2018-08-27 23:20] LABS: Differential Comment SCANNED; Platelet Estimate ADEQUATE (ADEQ)
[2018-08-27] MEDS: 0.9% Normal Saline 1,000 ML 999 ML IV (23:31)
[2018-08-27 23:45] VITALS: BP 80/50; PULSE 74; RESP 19
[2018-08-28] VITALS (14 sets, daily range): BP systolic 70–147; BP diastolic 40–99; PULSE 60–94; RESP 13–20; TEMP 36.1–36.7; O2SAT 93–97; BMI 40.4
--- NOTE | 2018-08-28 00:01 | ED.RN ---
PATIENT WAS REPOSITIONED ONTO HER LEFT SIDE WITH A PILLOW BEHIND HER BACK.
--- NOTE | 2018-08-28 00:02 | CT_ITS ---
STUDY: CT BRAIN WITHOUT CONTRAST REASON FOR EXAM: Female, 43 years old. Mental status changes RADIATION DOSAGE (If Supplied By Facility): CTDIvol = ( 44.99 ) mGy, DLP = ( 779.24 ) mGycm TECHNIQUE: Transaxial CT imaging of the brain was performed without administration of intravenous contrast material. Individualized dose optimization techniques were used for this CT. COMPARISON: None. FINDINGS: Normal soft tissue structures. Normal calvarium. Normal size ventricles and extra-axial spaces for the patient's age. Normal white matter tracts of the cerebral hemispheres. Normal basal ganglia and thalami. Normal brainstem. Normal cerebellum. There is no intracranial hemorrhage. There are no findings of an acute ischemic infarction. Normal visualized paranasal sinuses. CT/Brain/Head without Contrast IMPRESSION: Normal unenhanced CT scan of the brain. Electronically Signed: Cecilio Ugalde MD at 1:02 EDT , Service support ,
--- NOTE | 2018-08-28 00:10 | ED.RN ---
DR. FUNES MADE AWARE OF PATIENT'S BP OF 71/40. PATIENT HAS FLUIDS RUNNING. HE TOLD THIS NURSE TO CALL [facility] TO SEE WHAT HER BP NORMALLY IS. I CALLED [facility] AND SPOKE WITH THERESA AND SHE SAID SHE RUNS ANYWHERE FROM THE 80'S SYSTOLLIC TO [address] DR. FUNES MADE AWARE OF THIS. HE SAID TO CONTINUE GIVING PATIENT THE TWO LITERS.
[2018-08-28 00:24] LABS: Lactic Acid 0.6 mmol/L (0.4-2.0)
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
--- NOTE | 2018-08-28 02:12 | ED.RN ---
MADE AWARE OF PATIENT'S BP OF 70/52. AWAITING HOSPITALIST TO SEE HER.
[2018-08-28 03:36] LABS: Absolute Lymphocyte Count 2.37 X10^3/ul (0.83-4.51); Absolute Neutrophil Count 7.8 X10^3/uL (2.0-7.7); Basophil# 0.02 X10^3/uL; Basophil% 0.2 % (0-1); Eosinophil# 0.03 X10^3/uL; Eosinophils% 0.3 % (0-5); Hematocrit 27.8 % (37-47); Hemoglobin 8.4 g/dl (12.0-15.0); Lymphocyte # 2.37 X10^3/ul (4.0); Lymphocyte % 20.8 % (19-41); Mean Corp Hgb Conc 30.2 g/gl (32-36); Mean Corpuscular Hgb 24.5 pg (27.0-32.0); Mean Platelet Vol. 8.5 fl (6.2-12.0); Monocyte# 1.12 X10^3/uL; Monocyte% 9.8 % (0-10); Neutrophil # 7.84 X10^3/uL (2.7-7.7); Neutrophil % 68.5 % (47-70); Platelet Count 278 K/mm3 (150-450); RBC Distribution Width CV 16.1 % (11.6-14.6); Red Blood Count 3.43 M/mm3 (4.2-5.4); White Blood Count 11.4 K/mm3 (4.4-11.0)
[2018-08-28 03:37] LABS: POSITIVE COUNT NO; POSITIVE DIFFERENTIAL NO; POSITIVE MORPHOLOGY NO
[2018-08-28 03:49] LABS: Anion Gap 6 (5-15); BUN 13 mg/dL (7-18); BUN/Creat Ratio 34.8 RATIO (10-20); Calcium,Total 7.9 mg/dL (8.5-10.1); Chloride 108 mmol/L (98-107); Creatinine, Serum 0.37 mg/dL (0.55-1.02); EST Glomerular Filtration Rate 199 mL/min (>60); Est Glom Filt Rate - Afr Amer 240 mL/min (>60); Estimated Creatinine Clearance 153.46 ml/min; Glucose 96 mg/dL (74-106); Magnesium 2.2 mg/dL (1.6-2.6); Potassium 3.5 mmol/L (3.5-5.1); Sodium Level 140 mmol/L (136-145)
[2018-08-28 03:53] LABS: Ammonia < 10.0 umol/L (11-32)
[2018-08-28] MEDS: Baclofen 10 MG Tablet 40 MG PO ×4 (05:00→21:13)
[2018-08-28] MEDS: HYDROcodone Bitartrate/Apap 5/325 Tablet PO ×2 (05:00→11:59)
[2018-08-28] MEDS: Levothyroxine 75 MCG Tablet PO (05:00)
[2018-08-28] MEDS: 0.9% Normal Saline 1,000 ML 125 ML IV (05:01)
--- NOTE | 2018-08-28 05:55 | RAD_ITS ---
STUDY: X-RAY CHEST REASON FOR EXAM: Female, 43 years old. Encephalopathy, fever, hypotension TECHNIQUE: AP and lateral. Limited by patient mobility factors. COMPARISON: 08/27/2018 FINDINGS: Fusion hardware of cervical spine partially visualized. On the frontal view, there is asymmetric attenuation along the periphery of the right lung base which was not evident on the prior study, although the patient is substantially positioned differently. The opacity is not definitively seen on the lateral view, however. There is no demonstrated pleural abnormality. Normal size heart. Normal mediastinum and bia. Normal visualized pulmonary arteries. Normal visualized aortic arch and descending thoracic aorta. There is scoliosis of the thoracolumbar spine. There is no demonstrated abnormality of the visualized soft tissue structures of the upper abdomen. RAD/Chest PA and Lateral IMPRESSION: 1. Right basilar opacity on the frontal view is felt to be chest wall artifact rather than true parenchymal infiltrate. 2. No pleural effusion. Electronically Signed: Darinel Cullen MD at 7:58 EDT , Service support ,
[2018-08-28] MEDS: Gabapentin 800 MG Tablet 1600 MG PO ×3 (08:03→16:57)
--- NOTE | 2018-08-28 08:04 | NURSING ---
took pills whole easily with applesauce.
[2018-08-28] MEDS: oxyCODONE HCl Cr 10 MG Tablet PO (09:39)
[2018-08-28] MEDS: DULoxetine Hcl 60 MG Capsule 120 MG PO (09:39)
[2018-08-28] MEDS: Senna Tablet 2 TABLET PO ×2 (09:39→21:13)
[2018-08-28] MEDS: Polyethylene Glycol 3350 17 GM PACKET PO ×2 (09:43→21:13)
[2018-08-28] MEDS: Enoxaparin 40 MG/0.4 ML Syringe SC (09:43)
[2018-08-28] MEDS: Trimethoprim 100 MG Tablet PO (09:50)
[2018-08-28] MEDS: Naproxen 500 MG Tablet PO (09:50)
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
[2018-08-28] MEDS: Tolterodine Tartrate 4 MG CAP.SA PO (11:59)
[2018-08-28] MEDS: Pantoprazole Sodium 20 MG Tablet PO (12:00)
[2018-08-28] MEDS: oxyCODONE 5 MG Tablet PO ×2 (14:32→18:26)
[2018-08-28] MEDS: 0.9% Normal Saline 1,000 ML 100 ML IV (14:33)
[2018-08-28 16:14] LABS: Ferritin 78 ng/mL (8-252); Iron 27 ug/dL (50-170); Iron Binding Capacity,Total 288 ug/dL (250-450); PERCENT IRON SATURATION 9.4 % (15.0-55.0)
[2018-08-28] MEDS: traZODone 50 MG Tablet PO (21:12)
[2018-08-28] MEDS: Ascorbic Acid 500 MG Tablet 1000 MG PO (21:13)
[2018-08-28] MEDS: METHENAMINE HIPPURATE 1 GM TABLET 0.5 GM PO (21:15)
[2018-08-29] MEDS: Baclofen 10 MG Tablet 40 MG PO ×2 (02:42→08:17)
[2018-08-29] MEDS: oxyCODONE 5 MG Tablet PO ×3 (02:42→14:23)
[2018-08-29 04:00] VITALS: BP 108/54; PULSE 89; RESP 16; TEMP 36.9; O2SAT 94
[2018-08-29] MEDS: Levothyroxine 75 MCG Tablet PO (05:03)
[2018-08-29 06:17] LABS: Absolute Lymphocyte Count 2.28 X10^3/ul (0.83-4.51); Absolute Neutrophil Count 8.2 X10^3/uL (2.0-7.7); Basophil# 0.03 X10^3/uL; Basophil% 0.3 % (0-1); Eosinophil# 0.12 X10^3/uL; Hematocrit 28.6 % (37-47); Hemoglobin 8.5 g/dl (12.0-15.0); Lymphocyte # 2.28 X10^3/ul (4.0); Lymphocyte % 19.3 % (19-41); Mean Corp Hgb Conc 29.7 g/gl (32-36); Mean Corpuscular Hgb 24.7 pg (27.0-32.0); Mean Corpuscular Volume 83.1 fL (81-99); Mean Platelet Vol. 9.3 fl (6.2-12.0); Monocyte% 9.3 % (0-10); Neutrophil # 8.21 X10^3/uL (2.7-7.7); Neutrophil % 69.6 % (47-70); Platelet Count 330 K/mm3 (150-450); RBC Distribution Width CV 16.4 % (11.6-14.6); RBC Distribution Width SD 48.9 fl (35.1-43.9); Red Blood Count 3.44 M/mm3 (4.2-5.4); White Blood Count 11.8 K/mm3 (4.4-11.0)
[2018-08-29 06:28] LABS: POSITIVE COUNT NO; POSITIVE DIFFERENTIAL NO; POSITIVE MORPHOLOGY NO
[2018-08-29 06:31] LABS: Anion Gap 5 (5-15); BUN 9 mg/dL (7-18); BUN/Creat Ratio 24.4 RATIO (10-20); Calcium,Total 8.1 mg/dL (8.5-10.1); Chloride 105 mmol/L (98-107); Creatinine, Serum 0.37 mg/dL (0.55-1.02); EST Glomerular Filtration Rate 202 mL/min (>60); Est Glom Filt Rate - Afr Amer 244 mL/min (>60); Estimated Creatinine Clearance 153.46 ml/min; Glucose 125 mg/dL (74-106); Potassium 4.1 mmol/L (3.5-5.1); Sodium Level 134 mmol/L (136-145)
[2018-08-29 08:03] VITALS: O2SAT 95
[2018-08-29 08:05] VITALS: BP 109/55; PULSE 96; RESP 14; TEMP 37.5; O2SAT 94; O2SAT 95
[2018-08-29] MEDS: Enoxaparin 40 MG/0.4 ML Syringe SC (08:15)
[2018-08-29] MEDS: Gabapentin 800 MG Tablet 1600 MG PO ×2 (08:15→11:20)
[2018-08-29] MEDS: Trimethoprim 100 MG Tablet PO (08:15)
[2018-08-29] MEDS: DULoxetine Hcl 60 MG Capsule 120 MG PO (08:19)
[2018-08-29] MEDS: Senna Tablet 2 TABLET PO (08:19)
[2018-08-29] MEDS: Ondansetron ODT 4 MG Tablet PO (08:28)
--- NOTE | 2018-08-29 08:49 | NURSING ---
wound photo: right upper/inner thigh
[2018-08-29] MEDS: oxyCODONE HCl Cr 10 MG Tablet PO (10:03)
[2018-08-29 11:06] VITALS: TEMP 37.2
[2018-08-29] MEDS: Polyethylene Glycol 3350 17 GM PACKET PO (11:19)
[2018-08-29] MEDS: Pantoprazole Sodium 20 MG Tablet PO (11:21)
[2018-08-29] MEDS: Tolterodine Tartrate 4 MG CAP.SA PO (11:24)
[2018-08-29 11:57] LABS: Pathologist Review Reviewed
--- NOTE | 2018-08-29 11:58 | CASEMGMT ---
Social Work: Spoke with hospitalist who states that patient will be discharged back to [facility] today. TC to [facility]. Spoke with Lauren who is aware of D/C back to [facility] today. Clinicals faxed to Lauren. Spoke with patient regarding D/C back to [facility] today. Patient is requesting [facility] for transportation. TC to [facility]. Transport scheduled for 3:00pm. andreea Brody RN, Debora, RN and patient all aware of transportation scheduled for 3:00pm. PLAN: Patient to be discharged back to [facility] today. MEGHANN Bernard
--- NOTE | 2018-08-29 13:40 | PCM.TXEXTCAR ---
- Diet 08/28/18 03:02 Diet: Cardiac/Low Cholesterol Food consistency:: Regular Liquid Consistency:: Regular/Thin - Routine Orders/Code Status Routine Lab Work: CBC - within 3 days, BMP - within 3 days - Wound(s) RT UPPPER THIGH Wound Type: ? moisture related open area Dressing Change: AntiMicrobial (Aquacel AG, etc) - Therapies Physical Therapy: Eval and Treat Occupational Therapy: Eval and Treat - Allergies/Procedures Done in Hospital Allergies/Adverse Reactions: Allergies apixaban [From Eliquis] Allergy (Verified 08/27/18 21:04) Rash coconut oil Allergy (Verified 08/27/18 21:04) cant breath mometasone furoate [From Elocon] Allergy (Verified 08/27/18 21:04) Rash morphine Allergy (Verified 08/27/18 21:04) Rash rivaroxaban [From Xarelto] Allergy (Verified 08/27/18 21:04) Rash Sulfa (Sulfonamide Antibiotics) Allergy (Verified 08/27/18 21:04) Shortness of breath Procedures: None - Type of Care/Length of Stay Estimated LOS: Convalescent Care Less Than 30 days Type of Care Needed: Skilled Rehab Potential: Good Prognosis: Good - Additional Orders/Day of Discharge Additional Orders: Urine culture results were pending at discharge. Day of Discharge: 08/29/18 - Dietary and Speech Recommendations Dietitian Recommendations/Changes: Rec Darío bid to help w/ skin healing - please order from pharmacy. Rec diet change to 1800 marialuisa Cardiac d/t pmhx and BMI - pt confined to wheelchair. - Follow Up Care Primary Care Physician: Lavon Vicente MD [Primary Care Provider] - Please follow up with your Primary Care Physician in: as scheduled
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
[2018-08-29 13:55] VITALS: BP 106/63; PULSE 94; RESP 16; TEMP 37; O2SAT 92
[2018-08-29 14:16] VITALS: BP 106/63; PULSE 94; RESP 16; TEMP 37; O2SAT 92
--- NOTE | 2018-08-29 14:42 | NURSING ---
Report called to nurseGrace at [facility].
== END 2018-08-29 15:05 | disposition skilled nursing facility (03) ==
LOC: ED 21:54 → MS3 08-28 02:29
PROVIDERS: Admitting Provider Family Medicine; Emergency Provider Emergency Medicine; Family Provider Family Medicine; PCP Family Medicine; Visit Provider Internal Medicine
DX: T83.518A Infection and inflammatory reaction due to other urinary catheter, initial encounter (principal); Y73.8 Miscellaneous gastroenterology and urology devices associated with adverse incidents, not elsewhere classified; N39.0 Urinary tract infection, site not specified; B96.4 Proteus (mirabilis) (morganii) as the cause of diseases classified elsewhere; G93.41 Metabolic encephalopathy; E87.6 Hypokalemia; B34.9 Viral infection, unspecified; D64.9 Anemia, unspecified; E66.01 Morbid (severe) obesity due to excess calories; G82.50 Quadriplegia, unspecified; L89.109 Pressure ulcer of unspecified part of back, unspecified stage; L89.214 Pressure ulcer of right hip, stage 4; I45.6 Pre-excitation syndrome; R94.31 Abnormal electrocardiogram [ECG] [EKG]; E03.9 Hypothyroidism, unspecified; G89.4 Chronic pain syndrome; Z68.41 Body mass index [BMI] 40.0-44.9, adult; Z71.3 Dietary counseling and surveillance; Z79.899 Other long term (current) drug therapy; Z86.718 Personal history of other venous thrombosis and embolism; D50.0 Iron deficiency anemia secondary to blood loss (chronic); D25.9 Leiomyoma of uterus, unspecified; F41.9 Anxiety disorder, unspecified; F32.9 Major depressive disorder, single episode, unspecified; I10 Essential (primary) hypertension; K21.9 Gastro-esophageal reflux disease without esophagitis
CPT/HCPCS: 36415; 70450; 71045; 71046; 80048; 81001; 82140; 82728; 83540; 83550; 83605; 83735; 85025; 87040; 87077; 87086; 87088; 87186; 87633; 92610; 96360; 96361; 96372; 97802; 99218; 99285; J7030; G0378

== ENCOUNTER → 2018-08-31 14:08 | Outpatient (CLI) | payer MEDICARE, MEDICAID, SELFPAY ==
[2018-08-23 11:06] VITALS: BMI 41.0
[2018-08-28 02:46] VITALS: BMI 40.4
--- NOTE | 2018-08-31 14:11 | ECHOCS_ITS ---
Reason For Study: Preop Procedure This was a 2D Doppler, Color Flow transthoracic echocardiogram. The study was technically difficult. Contrast injection was performed. Exam performed in department. Left Ventricle Normal size and thickness. The estimated ejection fraction is 65 %. Normal diastology for age. No regional wall motion abnormalities noted. Right Ventricle Mildly dilated right ventricle. Normal systolic function. Atria Normal left atrium. Normal right atrium. Normal atrial septum. Mitral Valve The mitral valve is structurally normal. No prolapse or stenosis seen. Trivial mitral valve insufficiency. Tricuspid Valve Normal tricuspid valve. Trivial tricuspid valve insufficiency. Right ventricular systolic pressure estimated to be 23 mmHg. Aortic Valve Normal aortic valve. Trisinus/trileaflet aortic valve. Pulmonic Valve Normal pulmonic valve. Great Vessels Normal aortic root. Normal arch. Normal inferior vena cava. Inferior vena cava collapse with sniff. Pericardium/Pleural No pericardial effusion. Medication Definity0.3ml given slow IV push to enhance endocardial definition. MMode/2D Measurements & Calculations LVIDd: 4.0 cm IVSd: 1.2 cm Ao root diam: 2.4 cm LVIDs: 2.7 cm LVPWd: 1.0 cm RVDd: 4.0 cm FS: 32.6 % LAV(MOD-bp): 26.3 ml LVAd ap4: 25.8 cm2 SV(MOD-sp4): 48.5 ml LAV(MOD-bp) Indexed: 13.5 ml/m2 EDV(MOD-sp4): 75.9 ml LAV(MOD-sp2): 28.0 ml EDV(sp4-el): 79.8 ml LAV(MOD-sp4): 20.6 ml LVAs ap4: 14.2 cm2 ESV(MOD-sp4): 27.4 ml ESV(sp4-el): 28.2 ml EF(MOD-sp4): 63.9 % EF(sp4-el): 64.6 % SV(sp4-el): 51.5 ml LA A4 area: 12.3 cm2 LA dimension(2D): 2.2 cm RA A4 area: 11.2 cm2 Doppler Measurements & Calculations MV E max david: 73.2 cm/sec Lat Peak E' David: 12.6 cm/sec Med Peak E' David: 7.6 cm/sec MV A max david: 42.7 cm/sec E/E' lat: 5.8 E/E' med: 9.6 MV E/A: 1.7 Ao V2 max: 107.2 cm/sec LV V1 max: 83.8 cm/sec PA V2 max: 79.0 cm/sec Ao max P.6 mmHg LV V1 max P.8 mmHg Ao V2 mean: 79.7 cm/sec Ao mean P.8 mmHg Ao V2 VTI: 21.9 cm TR max david: 214.4 cm/sec TR max P.4 mmHg Interpretation Summary The estimated ejection fraction is 65 %. Mildly dilated right ventricle. Trivial tricuspid valve insufficiency. Right ventricular systolic pressure estimated to be 23 mmHg. There is no comparison study available. The study was technically difficult. Contrast injection was performed. Ordering Physician: Matteo [place] Referring Physician: Lavon Vicente Performed By: Aurelia Franco RDCS, RVT
== END ==
PROVIDERS: Family Provider Family Medicine; PCP Family Medicine; Referring Provider Internal Medicine Cardiovascular Disease; Visit Provider Internal Medicine Cardiovascular Disease
DX: Z01.810 Encounter for preprocedural cardiovascular examination (principal); R94.31 Abnormal electrocardiogram [ECG] [EKG]
CPT/HCPCS: 93306; Q9957; A4216; C8929

== ENCOUNTER → 2018-09-01 13:22 | Outpatient (CLI) | payer MEDICARE, MEDICAID, SELFPAY ==
[2018-08-23 11:06] VITALS: BMI 41.0
[2018-08-28 02:46] VITALS: BMI 40.4
--- NOTE | 2018-09-01 13:24 | STEWCON_ITS ---
Reason For Study: PRE-OP, ABN EKG Stress Results Protocol: Dobutamine Stress Echocardiogram Maximum Predicted HR: 176 bpm Target HR: 150 bpm % Maximum Predicted HR: 92 % DurationHeart Rate Stage (mm:ss) (bpm) BP Dose Comment BASELINE 67 102/67 DILUTED DEFINITY 6 ML USED DSE- 10 MCG 4:08 80 121/7910.00 DSE- 20 MCG 3:00 99 155/9520.00 DSE- 30 MCG 3:03 131 138/7530.00 DSE- 40 MCG 3:34 162 142/8440.00ATROPINE 0.25 MG IVP GIVEN @ 1435 RECOVERY 90 120/80 Stress Duration: 13:45 mm:ss Maximum Stress HR: 162 bpm Baseline Echocardiogram Findings The estimated ejection fraction is 65 %. Stress Echo Wall motion Data Resting WM Intermediate WM Stress WM Resting Wall Motion No regional wall motion abnormalities noted. EKG Data Normal intervals are noted. The patient was titrated from 10 mcg to a maximum of 40 mcg of dobutamine during the stress. The maximum heart rate attained was 162 beats per minute. This was 92% of maximum predicted heart rate. During dobutamine infusion, there were no ST or T wave changes noted to suggest ischemia. No clinical angina was noted. No arrhythmias noted. Interpretation Summary The estimated ejection fraction is 65 %. Normal, adequate, dobutamine echocardiogram. Negative for ischemia by EKG and echocardiographic anterior. No anginal symptoms noted. No arrhythmias noted. Appropriate blood pressure response to dobutamine. Decreased sensitivity due to poor echo windows requiring Definity agent. Test terminated due to the attainment of target heart rate. Final LVEF is 75%. No complications. The study was technically difficult. Contrast injection was performed. Ordering Physician: Matteo Perea Referring Physician: Matteo Perea Performed By: Amparo Hudson RDCS
== END ==
PROVIDERS: Family Provider Family Medicine; PCP Family Medicine; Referring Provider Internal Medicine Cardiovascular Disease; Visit Provider Internal Medicine Cardiovascular Disease
DX: Z01.810 Encounter for preprocedural cardiovascular examination (principal); R94.31 Abnormal electrocardiogram [ECG] [EKG]
CPT/HCPCS: 93017; 93350; J7040; Q9957; A4216; C8928

== ENCOUNTER 2018-09-30 09:09 | Day surgery (SDC) | payer MEDICARE, SELFPAY ==
[2018-08-28 02:46] VITALS: BMI 40.4
[2018-09-30 09:29] VITALS: BP 99/62; PULSE 83; RESP 18; TEMP 36.6; O2SAT 93; BMI 38.0
--- NOTE | 2018-09-30 09:30 | RAD_ITS ---
PROCEDURE: Lumbar epidural block L5-S1 DATE OF EXAMINATION: September 30, 2018. INDICATION: Female, 43 years old. Pain. PHYSICIAN: Alexeii FLUOROSCOPY TIME (if supplied): (0:03) minutes/seconds PROCEDURE/TECHNIQUE: No interprocedural fluoroscopic spot images are submitted. Fluoroscopy services provided for clinical procedure. Please refer to operating physician's procedure note for additional detail.. RAD/Spine 1 View Any Level IMPRESSION: Fluoroscopy services provided for clinical procedure. Please refer to operating physician's procedure note for additional detail. Electronically Signed: Robbi Cabral MD at 8:47 EDT , Service support ,
[2018-09-30] MEDS: Cefazolin 2 GM in 0.9% Normal Saline 100 ML IV (09:58)
[2018-09-30] MEDS: Triamcinolone Acetonide 40 MG/ML Vial (10:09)
[2018-09-30 10:17] VITALS: BP 111/70; BP 99/62; PULSE 71; RESP 16; TEMP 36.8; O2SAT 97
[2018-09-30 10:20] VITALS: BP 127/85; BP 99/62; PULSE 71; RESP 16; O2SAT 94
[2018-09-30 10:25] VITALS: BP 112/69; BP 99/62; PULSE 71; RESP 16; O2SAT 93
[2018-09-30 10:30] VITALS: BP 124/82; BP 99/62; PULSE 68; RESP 16; TEMP 36.6; O2SAT 92
[2018-09-30 11:26] VITALS: BP 99/62
== END 2018-09-30 11:28 | disposition skilled nursing facility (03) ==
LOC: SDC 09:10 → AC 09:11
PROVIDERS: Family Provider Family Medicine; PCP Family Medicine; Referring Provider Anesthesiology Pain Medicine; Visit Provider Anesthesiology Pain Medicine
PROC: 3E0S3BZ Introduction of Anesthetic Agent into Epidural Space, Percutaneous Approach (ICD-10-PCS; CPT 62322; principal; 2018-09-30 09:25)
DX: M54.9 Dorsalgia, unspecified (principal); E03.9 Hypothyroidism, unspecified; G82.50 Quadriplegia, unspecified; G20 Parkinson's disease; K21.9 Gastro-esophageal reflux disease without esophagitis; Z86.718 Personal history of other venous thrombosis and embolism
CPT/HCPCS: 01935; 62323; 64483; 72020; J7120

== ENCOUNTER 2018-10-05 09:00 | Inpatient (IN) | payer MEDICARE, MEDICAID, SELFPAY ==
[2018-08-28 02:46] VITALS: BMI 40.4
[2018-09-28 16:24] LABS: Hematocrit 34.2 % (37-47); Hemoglobin 10.4 g/dl (12.0-15.0); Mean Corp Hgb Conc 30.4 g/gl (32-36); Mean Corpuscular Hgb 24.5 pg (27.0-32.0); Mean Corpuscular Volume 80.5 fL (81-99); Mean Platelet Vol. 9.4 fl (6.2-12.0); Platelet Count 324 K/mm3 (150-450); RBC Distribution Width CV 17.3 % (11.6-14.6); RBC Distribution Width SD 50.7 fl (35.1-43.9); Red Blood Count 4.25 M/mm3 (4.2-5.4); White Blood Count 9.1 K/mm3 (4.4-11.0)
[2018-09-28 16:45] LABS: Scan Indicated on CBC? Y/N NO
[2018-09-28 16:47] LABS: International Normalized Ratio 1.1; Prothrombin Time (Protime)PT. 14.3 SECONDS (11.7-14.9)
[2018-09-28 16:48] LABS: Partial Thromboplast Time 33.7 Seconds (24.1-36.2)
[2018-09-28 16:56] LABS: ALB/GLOB Ratio 0.7 RATIO (0.9-2.4); AST(SGOT) 16 U/L (15-37); Alanine Aminotransfer ALT/SGPT 24 U/L (13-56); Albumin, Serum 3.1 g/dL (3.2-5.0); Alkaline Phosphatase 64 U/L (45-117); Anion Gap 8 (5-15); BUN 7 mg/dL (7-18); BUN/Creat Ratio 23.8 RATIO (10-20); Calcium,Total 8.2 mg/dL (8.5-10.1); Chloride 103 mmol/L (98-107); Creatinine, Serum 0.29 mg/dL (0.55-1.02); EST Glomerular Filtration Rate 262 mL/min (>60); Est Glom Filt Rate - Afr Amer 317 mL/min (>60); Globulin 4.7 g/dL (2.2-4.2); Glucose 83 mg/dL (74-106); Potassium 3.4 mmol/L (3.5-5.1); Protein, Total 7.8 g/dL (6.4-8.2); Sodium Level 138 mmol/L (136-145)
[2018-09-28 17:03] LABS: Internal QC Validated? YES +Cl - CLEAR BKGD; Pregnancy, Serum, hCG Quali. NEGATIVE Negative
[2018-09-28 17:30] LABS: Thyroid Stim Hormone (TSH) 0.99 uIU/mL (0.358-3.74)
[2018-10-05] VITALS (11 sets, daily range): BP systolic 88–121; BP diastolic 55–78; PULSE 67–85; RESP 16–18; TEMP 36.4–37.2; O2SAT 92–98; BMI 38.5
--- NOTE | 2018-10-05 | HYST_PTH ---
PATIENT: HENRIK GARCIA LOC: MS2 U#:[id number] AGE/SX: 43/F ROOM: MS217 RE10/05/[address]: Dr. Renzo Siu MD : 1975 BED: 1 DIS: 10/07/2018 SPEC #: [id number] RECD: 10/05/18 16:30 STATUS: NESTOR REQ #: [id number] PURNIMA: 10/05/18 00:[address]: Renzo Siu DEPT: SURGICAL PATHOLOGY RECD BY: John Pablo ENTERED: 10/06/18 08:56 SP TYPE: HYSTERECT OTHR DR: Dr. Lavon Vicente MD Tissues: Uterus, NOS Procedures: Surgery Specimen Level V HEADER OPERATION: Laparoscopy, laparotomy with repair colonic enterotomies PRE-OP DIAGNOSIS: Irregular menstruation TISSUE SUBMITTED: Uterus MICROSCOPIC DIAGNOSIS Uterus, hysterectomy: Cervix - squamous metaplasia and mild chronic inflammation. Endometrium - proliferative endometrium. Myometrium - leiomyoma and adenomyosis. AM:trevor 10/07/18 MICROSCOPIC DESCRIPTION Slides are reviewed. GROSS DESCRIPTION Received in fixative is one container labeled with the patient's name and designated uterus. The specimen consists of a hysterectomy specimen consisting of uterus with cervix weighing 104 gm and measuring 10 x 7 x 5 cm. The body of the uterus is partly disrupted at the level of cervix. A subserosal nodule is noted. The serosa is focally ragged. The ectocervical mucosa is focally congested. The external os is oval in contour. The endocervical canal measures 3.5 cm in length and the endocervical mucosa is ya, glistening and unremarkable. The triangular endometrial cavity measures 3.5 cm in length and 3 cm in width. The endometrium is congested without any mass lesion and measures <0.1 cm in thickness. Sections of the uterine wall reveal one subserosal nodule measuring 1.5 cm in diameter. Sections of this mass reveals ya whorled cut surfaces without areas of hemorrhage, necrosis or cystic degeneration. The uninvolved uterine wall measures up to 2 cm in thickness. Accounting Associate sections are submitted in seven cassettes as follows: 1 - anterior cervix, 2 - posterior cervix, 3 & 4 - anterior uterine wall, 5 & 6 - posterior uterine wall, 7 - subserosal nodular mass. / SJ:trevor 10/06/18 TC:1 CPT: 20417
--- NOTE | 2018-10-05 09:13 | DCINST_ITS ---
Discharge Diet: No Restrictions Discharge Activity: Return to Normal Activity, May Shower May shower in (days): 0 May resume sexual activity in: 8 weeks Call your doctor if your incision/area has: Continuous Slow Oozing, Sudden Increased Bleeding, Increased Pain/ Swelling, Increased Redness, Foul Smelling Discharge, Swelling at the incision site Call your doctor if you observe: Fever of 101 or Higher, Inability to urinate, Inability to have a bowel movement, Using more than one pad per hour, Shortness of breath, Chest pain, Calf discomfort, Uncontrolled pain Remove Dressing in (days):: 2 Cleanse incision/area with: Soap & Water Allergies/Adverse Reactions: Allergies apixaban [From Eliquis] Allergy (Verified 10/05/18 08:42) Rash coconut oil Allergy (Verified 10/05/18 08:42) cant breath mometasone furoate [From Elocon] Allergy (Verified 10/05/18 08:42) Rash morphine Allergy (Verified 10/05/18 08:42) Rash rivaroxaban [From Xarelto] Allergy (Verified 10/05/18 08:42) Rash Sulfa (Sulfonamide Antibiotics) Allergy (Verified 10/05/18 08:42) Shortness of breath Medications to take at Discharge Levothyroxine [Synthroid] 75 mcg PO DAILY 05/28/15 Duloxetine HCl 120 mg PO DAILY 08/21/15 Nystatin [Nyamyc] 1 applicatio TOPICAL BID PRN 08/21/15 Hydrocodone/Acetaminophen [[place] 5-325 Tablet] 1 ea PO Q8H PRN 06/17/16 Baclofen [Lioresal] 40 mg PO Q6H 08/16/16 Gabapentin [Neurontin] 1,600 mg PO TIDCM 08/16/16 Acetaminophen [Tylenol] 650 mg PO PRN PRN 03/01/18 Bisacodyl 10 mg ME PRN PRN 03/01/18 Cholecalciferol (Vitamin D3) [Vitamin D3] 5,000 unit PO DAILY 03/01/18 Guaifenesin [Robitussin] 10 ml PO Q4H PRN PRN 03/01/18 Lactobacillus Rhamnosus GG [Culturelle] 1 ea PO DAILY 03/01/18 Linaclotide [Linzess] 290 mcg PO DAILY 03/01/18 Methenamine Hippurate 0.5 gm PO QHS 03/01/18 Omeprazole 20 mg PO LUNCH 03/01/18 Trazodone HCl 50 mg PO QHS 03/01/18 Furosemide [Lasix] 40 mg PO DAILY 05/26/18 Oxybutynin Chloride [Ditropan Xl] 20 mg PO LUNCH 08/16/18 Polyethylene Glycol 3350 [Miralax] 17 gm PO QHS 08/16/18 Sennosides [Senna] 17.2 mg PO BID 08/16/18 Trimethoprim 100 mg PO DAILY 08/16/18 Citric AC/Gluconolact/Mag Carb [Renacidin Irrigation Solution] 30 ml INTRA-UTER QHS 08/27/18 Ondansetron [Zofran Odt] 4 mg PO Q12H PRN PRN 08/27/18 Oxycodone [Oxyir] 5 - 10 mg PO Q4H PRN PRN 7 Days #30 tab 10/05/18 The following prescriptions were given: Oxycodone [Oxyir] 5 - 10 mg PO Q4H PRN PRN 7 Days #30 tab PRN Reason: Mod-Severe Pain (4-10/10) Orders to be completed after discharge: Thyroid Stim Hormone (TSH) Time Frame: 09/29/18, Location: Laboratory Primary Care Physician: Lavon Vicente MD [Primary Care Provider] - Test Results: Test results from this visit will be discussed in further detail at your follow- up appointment, if applicable. Please Follow Up With: Renzo Siu MD When: one week Proposed Discharge Date: 10/06/18
--- NOTE | 2018-10-05 09:48 | OP.PCM_ITS ---
Problem List (1) Menometrorrhagia Status: Chronic Report of Operation Date of Procedure: 10/05/18 Pre-Operative Diagnosis: Menometrorrhagia Post-Operative Diagnosis: Same Surgery/Procedure Performed:: Laparoscopy, Laparotomy, Repair of Large Bowel Injury, Vaginal Hysterectomy Description of Surgical Findings:: During placement of laparoscopic ports an incidental large bowel perforation occured with trocar entering bowel in two places. The small bowel was run with no other injuries noted. There was a normal appearing uterus, cervix, ovaries, and fallopian tubes. The tubes had been previously ligated. cable installer repairer: Matteo Andre cable installer repairer: Mickie Love Type of Anesthesia:: General Anesthesiologist: Louis Lee Special Medications: none Specimen's removed: Uterus, cervix, and fallopian tubes Drains: Suprapubic catheter Estimated Blood Loss (mL): 200cc Fluids Replaced: 1400cc LR Description of Procedure: Tra was taken to the OR with IV running. She was given two grams of Cefotetan intravenously for surgical prophylaxis. General anesthesia was induced without complication. She was then prepped and draped in the dorsal lithotomy position. Attention wasa first directed to the vagina where a uterine manipulator was placed. Attention was then directed to the abdomen. A 5mm vertical incision was made in the lower base of the umbilicus and the underlying subcutaneous tissue was bluntly dissected down to the level of the fascia. The abdominal wall was then elevated and a Veress needle was placed through the umbilical defect into the abdominal cavity. The abdomen was then inflated to 15 Torr with CO2 gas. The Veress needle was then removed and replaced with a 5mm laparoscopic trocar and sleeve. The trocar was removed and replaced with the laparoscope. One additional 5 mm laparoscopic port was placed. It was placed on the left side at the level of the umbilicus and lateral to the inferior ep igastric vessel on the left side. Another 5 mm laparoscopic port was placed in the midline between the umbilicus and the pubic symphysis. Hemostasis was excellent after placement of the laparoscopic ports. At this point it was noticed that bowel contents were noted in the umbilical port site tube. Dr. Andre was called for evaluation. Decision was made to perform a laparotomy to assess for bowel injury. A midline incision was made from the umbilicus to the suprapubic area with the scalpel. The underlying subcutaneous tissue was dissected down to the level of the fascia. The fascia was then grasped with a Carolee clamp, elevated and the abdomen was entered. The fascial defect was then entended and the peritoneum entered . The large bowel injuries were then noted with two distinct laparoscopic trocar injuries noted and one small area of bowel with serosal injury. The puncture sites were repaired by Dr. Andre with interrupted sutures of silk. The bowel appeared to be closed and leak free after closure. The small bowel was inspected and found to be intact. The fascia, peritoneum and rectus muscles were closed in a mass close with 0 PDS susture. The subcutaneous tissue was closed in three layers with 2-0 Vicryl. The skin was closed with antolin. The left laparoscopic port site was closed with 4-0 Monocryl. Attention was then directed to the vagina. The cervix gra sped with two single toothed tenaculum. The cervicovaginal epithelium was then injected superficially with a dilute Pitressin solution. The Bovie cautery was then used to incise the cervicovaginal epithelium in a circumfrential manner. The vagina mucosa was then pushed superiorly. The vesicovaginal peritoneum was then identified and entered sharply. The rectovaginal peritoneum was the entered sharply and a long weighted speculum was placed through the posterior defect. The uterosacral ligaments were then grasped with curved Shimon clamps, cut, and suture ligated. These ties were held for incorporation into the vaginal cuff. The left and right uterine arteries were then grasped with Shimon clamps cut and suture ligated. The Broad ligament on each side was grasped with Shimon clamps, cut and suture ligated. The left uteroovarian ligament was then clamped cut and suture ligated. In a similar fashion the right uteroovarian ligament was clamped cut and suture ligated. The pedicles were inspected for hemostasis. Will this assured the vaginal cuff was closed. The vaginal mucosa was then closed in the midline with a single interrupted suture of 0-Vicryl. The angles were closed with 0-Vicryl with incorporation of the uterosacral ligament ties on the right and left respectively. The remainder of the vaginal cuf was closed with figure of eight sutures of 0-Vicryl. Sponge, needle, instrument, and lap counts were correct. She was reversed from anesthesia and taken to the recovery room in stable condition. Grafts/Implants Used: none - Complications Incidental enterotomy of large bowel. - Admit VTE Documentation VTE Present on Admission: No VTE Mechan Device Prophylaxis: SCD's VTE Pharm Prophylaxis ordered?: Yes
[2018-10-05] MEDS: Vasopressin 20 UNITS/ML Vial (12:20)
--- NOTE | 2018-10-05 12:29 | PCM.OPRPT ---
Problem List (1) Iatrogenic enterotomy Status: Acute Report of Operation Date of Procedure: 10/05/18 Pre-Operative Diagnosis: Iatrogenic enterotomy of the transverse colon Post-Operative Diagnosis: Same Surgery/Procedure Performed:: Exploratory laparotomy and repair of iatrogenic enterotomies to transverse colon Type of Anesthesia:: General Description of Procedure: Patient was already in the operating room and Dr. Siu was attempting to place trochars for his LAVH. He identified that his trocar at the umbilicus was in the colon and I was immediately notified. A midline incision was made from the umbilicus down to the pubic bone. Electrocautery was used we entered the abdomen sharply without difficulty and electrocautery was used to open the midline incision. I grabbed the transverse colon with a [place] identified the insertion into the colon subsequently remove this and oversewed this enterotomy which was approximately 5 mm in length with 2 layered of 3-0 silk. I then rotated the colon and looked posteriorly and saw another enterotomy I closed this with 2 layers of 3-0 GI silk there was a small serosal tear I also closed this with 2 layers of GI silk. The colon had air in it I felt and saw no other enterotomies within the colon. I proceeded to run the small bowel all of the small bowel was greatly decompressed there is no signs of any serosal injuries. I saw no hematomas the mesentery all looked viable throughout the colon and the small intestine. There was no fecal spillage. Remarkable is that may seen it was very well clean. However she obviously did not have a bowel prep. After this I reinspected my repairs they all looked intact blood supply was intact Dr. Siu closed the abdomen. - Admit VTE Documentation VTE Present on Admission: No VTE Mechan Device Prophylaxis: SCD's VTE Pharm Prophylaxis ordered?: No Reason prophylaxis not ordered:: Treatment Not Indicated
[2018-10-05] MEDS: Heparin Injection (Vial) 5,000 UNIT/ML VIAL 5000 UNIT SC ×3 (14:21→22:15)
[2018-10-05] MEDS: Ketorolac 30 MG/ML Syringe IV ×3 (14:25→22:15)
[2018-10-05] MEDS: Dextrose 5%-Lactated Ringers 1,000 ML 125 ML IV (16:06)
[2018-10-05] MEDS: HYDROmorphone 1 MG/ML Syringe IV (16:42)
[2018-10-05] MEDS: Gabapentin 800 MG Tablet 1600 MG PO (16:50)
[2018-10-05] MEDS: Baclofen 10 MG Tablet 40 MG PO ×2 (16:50→22:13)
[2018-10-05] MEDS: Furosemide 40 MG Tablet PO (16:51)
[2018-10-05] MEDS: Pantoprazole Sodium 20 MG Tablet PO (16:51)
[2018-10-05] MEDS: oxyCODONE 5 MG Tablet PO ×2 (18:21→22:23)
[2018-10-05] MEDS: HYDROmorphone 1 MG/ML Syringe 2 MG IV (19:40)
[2018-10-05] MEDS: METHENAMINE HIPPURATE 1 GM TABLET 0.5 GM PO (22:13)
[2018-10-05] MEDS: traZODone 50 MG Tablet PO (22:14)
[2018-10-05] MEDS: Acetaminophen 500 MG Tablet 1000 MG PO (22:34)
[2018-10-06] VITALS (7 sets, daily range): BP systolic 88–112; BP diastolic 54–67; PULSE 55–94; RESP 16–18; TEMP 36.3–37.2; O2SAT 93–98
[2018-10-06] MEDS: HYDROmorphone 1 MG/ML Syringe 2 MG IV ×3 (00:04→11:44)
[2018-10-06] MEDS: Dextrose 5%-Lactated Ringers 1,000 ML 125 ML IV ×2 (00:14→08:15)
[2018-10-06] MEDS: Baclofen 10 MG Tablet 40 MG PO ×4 (04:51→22:16)
[2018-10-06] MEDS: Ketorolac 30 MG/ML Syringe IV ×2 (04:51→10:32)
[2018-10-06] MEDS: Levothyroxine 75 MCG Tablet PO (04:53)
[2018-10-06] MEDS: Heparin Injection (Vial) 5,000 UNIT/ML VIAL 5000 UNIT SC ×3 (04:54→22:16)
[2018-10-06] MEDS: oxyCODONE 5 MG Tablet PO ×3 (06:23→20:06)
[2018-10-06 06:42] LABS: Hemoglobin 9.2 g/dl (12.0-15.0); Mean Corp Hgb Conc 30.7 g/gl (32-36); Mean Corpuscular Hgb 24.6 pg (27.0-32.0); Mean Corpuscular Volume 80.2 fL (81-99); Platelet Count 281 K/mm3 (150-450); RBC Distribution Width SD 49.1 fl (35.1-43.9); Red Blood Count 3.74 M/mm3 (4.2-5.4)
[2018-10-06 06:54] LABS: Neutrophil % 76.7 % (47-70); POSITIVE COUNT NO; POSITIVE DIFFERENTIAL NO; POSITIVE MORPHOLOGY NO
[2018-10-06 06:55] LABS: Absolute Lymphocyte Count 2.15 X10^3/ul (0.83-4.51); Absolute Neutrophil Count 10.4 X10^3/uL (2.0-7.7); Basophil# 0.01 X10^3/uL; Basophil% 0.1 % (0-1); Lymphocyte # 2.15 X10^3/ul (4.0); Lymphocyte % 15.9 % (19-41); Monocyte# 0.95 X10^3/uL; Neutrophil # 10.35 X10^3/uL (2.7-7.7)
[2018-10-06 07:15] LABS: ALB/GLOB Ratio 0.6 RATIO (0.9-2.4); AST(SGOT) 10 U/L (15-37); Alanine Aminotransfer ALT/SGPT 13 U/L (13-56); Albumin, Serum 2.4 g/dL (3.2-5.0); Alkaline Phosphatase 58 U/L (45-117); Anion Gap 7 (5-15); BUN 9 mg/dL (7-18); BUN/Creat Ratio 20.3 RATIO (10-20); Calcium,Total 7.6 mg/dL (8.5-10.1); Chloride 101 mmol/L (98-107); Creatinine, Serum 0.44 mg/dL (0.55-1.02); EST Glomerular Filtration Rate 163 mL/min (>60); Est Glom Filt Rate - Afr Amer 197 mL/min (>60); Estimated Creatinine Clearance 123.12 ml/min; Globulin 3.8 g/dL (2.2-4.2); Glucose 123 mg/dL (74-106); Potassium 3.4 mmol/L (3.5-5.1); Protein, Total 6.2 g/dL (6.4-8.2); Sodium Level 136 mmol/L (136-145)
--- NOTE | 2018-10-06 08:10 | PN_ITS ---
Patient Problems: Active and Suspected Problems (Last Updated 08/23/18 @ 11:29 by Elisa Vasquez) Iatrogenic enterotomy (Acute) Subjective: Other than pain she is doing well. No nausea. States passed flatus last night. Tolerating clears. Objective: Afeb VSS Urine output adequate. Hgb stable. Creatinine stable. - Physical Exam General: Alert, Oriented x3, Cooperative, No apparent distress Lungs: Clear to auscultation, Normal air movement Cardiovascular: Regular rate, Regular Rhythm Abdomen: Soft, - - Distended but not overly tender. Incision intact, no erythema. Extremities: No edema Skin: No rashes Psych/Mental Status: Normal Affect Comment: No vaginal bleeding Vital Signs Temp Pulse Resp BP Pulse Ox 97.4 F L 55 L 18 112/67 97 10/06/18 04:59 10/06/18 04:59 10/06/18 04:59 10/06/18 04:59 10/06/18 07:00 Oxygen Flow Rate (L/min) 2 Oxygen Delivery Method Room Air Weight: 204 lb Body Mass Index (BMI) 38.5 Intake and Output for Last 24 Hours 10/04/18 10/05/18 10/06/18 23:59 23:59 23:59 Intake Total 2050 / 2050 3308 / 3308 Output Total 1300 / 1300 1750 / 1750 Balance 750 / 750 1558 / 1558 Laboratory Tests Past 24 Hrs 10/06/18 10/06/18 10/06/18 06:15 06:15 06:15 WBC 13.0 H Corrected WBC RBC 3.74 L Hgb 9.2 L Hct 30.0 L MCV 80.2 L MCH 24.6 L MCHC 30.7 L RDW 17.0 H RDW Differential 49.1 H Plt Count 281 MPV 9.0 Immature Gran % (Auto) 0.300 Neut % (Auto) 76.7 H Lymph % (Auto) 15.9 L Schuyler % (Auto) 7.0 Eos % (Auto) 0.0 Baso % (Auto) 0.1 Absolute Neuts (auto) 10.4 H Absolute Lymphs (auto) 2.15 Total Counted Not Reportable Neutrophils % (Manual) Band Neutrophils % Lymphocytes % (Manual) Monocytes % (Manual) Eosinophils % (Manual) Basophils % (Manual) Metamyelocytes % Myelocytes % Promyelocytes % Blast Cells % Plasma Cell % (Manual) Other Cells % Nucleated RBCs/100 WBC Differential Comment Diff Path Review Hypersegmented Neuts Atypical Lymphocytes Reactive Lymphocytes Smudge Cells Toxic Granulation Dohle Bodies Yvonne Rods Platelet Estimate Plt Morphology Comment RBC Morphology Polychromasia Hypochromasia Poikilocytosis Basophilic Stippling Anisocytosis Microcytosis Macrocytosis Spherocytes Sickle Cells Target Cells Tear Drop Cells Ovalocytes Stomatocytes [place] Bodies [place] Cells Bite Cells Acanthocytes (Spur) Rouleaux Schistocytes Sodium Potassium Chloride Carbon Dioxide Anion Gap BUN Creatinine Cancelled Estim Creat Clear Calc Cancelled Est GFR (MDRD) Af Amer Cancelled Est GFR (MDRD) Non-Af Cancelled BUN/Creatinine Ratio Glucose Calcium Total Bilirubin AST ALT Alkaline Phosphatase Total Protein Albumin Globulin Albumin/Globulin Ratio Blood Type A POSITIVE Antibody Screen NEGATIVE 10/06/18 10/06/18 06:15 06:15 WBC Cancelled Corrected WBC Cancelled RBC Cancelled Hgb Cancelled Hct Cancelled MCV Cancelled MCH Cancelled MCHC Cancelled RDW Cancelled RDW Differential Cancelled Plt Count Cancelled MPV Cancelled Immature Gran % (Auto) Cancelled Neut % (Auto) Cancelled Lymph % (Auto) Cancelled Schuyler % (Auto) Cancelled Eos % (Auto) Cancelled Baso % (Auto) Cancelled Absolute Neuts (auto) Cancelled Absolute Lymphs (auto) Cancelled Total Counted Cancelled Neutrophils % (Manual) Cancelled Band Neutrophils % Cancelled Lymphocytes % (Manual) Cancelled Monocytes % (Manual) Cancelled Eosinophils % (Manual) Cancelled Basophils % (Manual) Cancelled Metamyelocytes % Cancelled Myelocytes % Cancelled Promyelocytes % Cancelled Blast Cells % Cancelled Plasma Cell % (Manual) Cancelled Other Cells % Cancelled Nucleated RBCs/100 WBC Cancelled Differential Comment Cancelled Diff Path Review Cancelled Hypersegmented Neuts Cancelled Atypical Lymphocytes Cancelled Reactive Lymphocytes Cancelled Smudge Cells Cancelled Toxic Granulation Cancelled Dohle Bodies Cancelled Yvonne Rods Cancelled Platelet Estimate Cancelled Plt Morphology Comment Cancelled RBC Morphology Cancelled Polychromasia Cancelled Hypochromasia Cancelled Poikilocytosis Cancelled Basophilic Stippling Cancelled Anisocytosis Cancelled Microcytosis Cancelled Macrocytosis Cancelled Spherocytes Cancelled Sickle Cells Cancelled Target Cells Cancelled Tear Drop Cells Cancelled Ovalocytes Cancelled Stomatocytes Cancelled Sanders-[place] Bodies Cancelled Kelsey Cells Cancelled Bite Cells Cancelled Acanthocytes (Spur) Cancelled Rouleaux Cancelled Schistocytes Cancelled Sodium 136 Potassium 3.4 L Chloride 101 Carbon Dioxide 28.0 Anion Gap 7 BUN 9 Creatinine 0.44 L Estim Creat Clear Calc 123.12 Est GFR (MDRD) Af Amer 197 Est GFR (MDRD) Non-Af 163 BUN/Creatinine Ratio 20.3 H Glucose 123 H Calcium 7.6 L Total Bilirubin 0.30 AST 10 L ALT 13 Alkaline Phosphatase 58 Total Protein 6.2 L Albumin 2.4 L Globulin 3.8 Albumin/Globulin Ratio 0.6 L Blood Type Antibody Screen Medical Necessity - Tobacco Use Smoking Status: Never smoker Tobacco Use: Non-smoker Assessment/Plan All Active Problems (Last Updated 08/23/18 @ 11:29 by Elisa Vasquez) Encephalopathy acute (Acute) Leukocytosis (Acute) Fever (Acute) Iatrogenic enterotomy (Acute) Pre-operative cardiovascular exam, new EKG abnormalities c/w ischemia (Acute) Abnormal EKG (Acute) Open wound of knee with complication (Acute) Open wound of left thigh (Acute) Pneumonia (Acute) Paronychia of toe of left foot (Acute) Lethargy (Acute) Altered mental status (Acute) Cocaine abuse (Resolved) DVT (deep venous thrombosis) (Resolved) HCAP (healthcare-associated pneumonia) (Resolved) Heroin use (Resolved) Doing well on POD#1 s/p Laparoscopy, laparotomy, repair of large bowel enterotomy, vaginal hysterectomy. Continue to treat pain as needed. Patient has high opiod tolerance due to chronic use. Will advance diet to regular. Anticipate discharge tomorrow if course dictates. Will repeat CBC tomorrow.
[2018-10-06] MEDS: Gabapentin 800 MG Tablet 1600 MG PO ×3 (08:14→16:30)
[2018-10-06] MEDS: Ensure Clear 120 ML Liquid PO (08:14)
--- NOTE | 2018-10-06 08:34 | CASEMGMT ---
Pt is here from [facility]. MAIKEL called Yeimy at [facility], message left and updates faxed. MAIKEL will continue to follow. MEGHANN Swann
[2018-10-06] MEDS: Bisacodyl 10 MG Suppository RECTAL (10:29)
[2018-10-06] MEDS: Polyethylene Glycol 3350 17 GM PACKET PO (10:29)
[2018-10-06] MEDS: DULoxetine Hcl 60 MG Capsule 120 MG PO (10:31)
[2018-10-06] MEDS: Furosemide 40 MG Tablet PO (10:32)
[2018-10-06] MEDS: Senna/Docusate Sodium 1 Tablet PO ×2 (10:32→22:16)
[2018-10-06] MEDS: Linacolotide 145 MCG CAPSULE 290 MCG PO (10:34)
--- NOTE | 2018-10-06 10:44 | CASEMGMT ---
Addendum entered by Audrey Chen 10/06/18 11:44: SW spoke w/pt, confirmed the plan is for pt to return to [facility] at discharge. SW will continue to follow. MEGHANN Swann Original Note: SW received a call back from [facility] confirming pt is a jail resident with [facility], they do not need a precert for pt to return as pt is there under Medicaid. They will work on getting a skilled level of care for pt when she returns to the facility. MEGHANN Swann
--- NOTE | 2018-10-06 11:02 | PCM.PN.SRG ---
Patient Problems: Active and Suspected Problems (Last Updated 08/23/18 @ 11:29 by Elisa Vasquez) Iatrogenic enterotomy (Acute) Subjective: Patient evaluated resting comfortably in bed. Patient is a paraplegic. She notes having feeling in her abdomen. Patient notes some discomfort in her abdomen. She notes she does not have regular bowel movements. - Physical Exam General: Alert, Oriented x3, Cooperative Abdomen: Bowel Sounds Present, Soft, Distended, Tender - generalized Vital Signs Temp Pulse Resp BP Pulse Ox 98.3 F 60 18 96/55 L 98 10/06/18 09:00 10/06/18 09:00 10/06/18 09:00 10/06/18 09:00 10/06/18 09:00 Oxygen Flow Rate (L/min) 2 Oxygen Delivery Method Room Air Weight: 204 lb 0.005 oz Body Mass Index (BMI) 38.5 Intake and Output for Last 24 Hours 10/04/18 10/05/18 10/06/18 23:59 23:59 23:59 Intake Total 2050 / 2050 3308 / 3308 Output Total 1300 / 1300 1750 / 1750 Balance 750 / 750 1558 / 1558 Laboratory Tests Past 24 Hrs 10/06/18 10/06/18 10/06/18 06:15 06:15 06:15 WBC 13.0 H Corrected WBC RBC 3.74 L Hgb 9.2 L Hct 30.0 L MCV 80.2 L MCH 24.6 L MCHC 30.7 L RDW 17.0 H RDW Differential 49.1 H Plt Count 281 MPV 9.0 Immature Gran % (Auto) 0.300 Neut % (Auto) 76.7 H Lymph % (Auto) 15.9 L [place] % (Auto) 7.0 Eos % (Auto) 0.0 Baso % (Auto) 0.1 Absolute Neuts (auto) 10.4 H Absolute Lymphs (auto) 2.15 Total Counted Not Reportable Neutrophils % (Manual) Band Neutrophils % Lymphocytes % (Manual) Monocytes % (Manual) Eosinophils % (Manual) Basophils % (Manual) Metamyelocytes % Myelocytes % Promyelocytes % Blast Cells % Plasma Cell % (Manual) Other Cells % Nucleated RBCs/100 WBC Differential Comment Diff Path Review Hypersegmented Neuts Atypical Lymphocytes Reactive Lymphocytes Smudge Cells Toxic Granulation Dohle Bodies Yvonne Rods Platelet Estimate Plt Morphology Comment RBC Morphology Polychromasia Hypochromasia Poikilocytosis Basophilic Stippling Anisocytosis Microcytosis Macrocytosis Spherocytes Sickle Cells Target Cells Tear Drop Cells Ovalocytes Stomatocytes [place] Bodies Kelsey Cells Bite Cells Acanthocytes (Spur) Rouleaux Schistocytes Sodium Potassium Chloride Carbon Dioxide Anion Gap BUN Creatinine Cancelled Estim Creat Clear Calc Cancelled Est GFR (MDRD) Af Amer Cancelled Est GFR (MDRD) Non-Af Cancelled BUN/Creatinine Ratio Glucose Calcium Total Bilirubin AST ALT Alkaline Phosphatase Total Protein Albumin Globulin Albumin/Globulin Ratio Blood Type A POSITIVE Antibody Screen NEGATIVE 10/06/18 10/06/18 06:15 06:15 WBC Cancelled Corrected WBC Cancelled RBC Cancelled Hgb Cancelled Hct Cancelled MCV Cancelled MCH Cancelled MCHC Cancelled RDW Cancelled RDW Differential Cancelled Plt Count Cancelled MPV Cancelled Immature Gran % (Auto) Cancelled Neut % (Auto) Cancelled Lymph % (Auto) Cancelled [place] % (Auto) Cancelled Eos % (Auto) Cancelled Baso % (Auto) Cancelled Absolute Neuts (auto) Cancelled Absolute Lymphs (auto) Cancelled Total Counted Cancelled Neutrophils % (Manual) Cancelled Band Neutrophils % Cancelled Lymphocytes % (Manual) Cancelled Monocytes % (Manual) Cancelled Eosinophils % (Manual) Cancelled Basophils % (Manual) Cancelled Metamyelocytes % Cancelled Myelocytes % Cancelled Promyelocytes % Cancelled Blast Cells % Cancelled Plasma Cell % (Manual) Cancelled Other Cells % Cancelled Nucleated RBCs/100 WBC Cancelled Differential Comment Cancelled Diff Path Review Cancelled Hypersegmented Neuts Cancelled Atypical Lymphocytes Cancelled Reactive Lymphocytes Cancelled Smudge Cells Cancelled Toxic Granulation Cancelled Dohle Bodies Cancelled Yvonne Rods Cancelled Platelet Estimate Cancelled Plt Morphology Comment Cancelled RBC Morphology Cancelled Polychromasia Cancelled Hypochromasia Cancelled Poikilocytosis Cancelled Basophilic Stippling Cancelled Anisocytosis Cancelled Microcytosis Cancelled Macrocytosis Cancelled Spherocytes Cancelled Sickle Cells Cancelled Target Cells Cancelled Tear Drop Cells Cancelled Ovalocytes Cancelled Stomatocytes Cancelled [place] Bodies Cancelled Kelsey Cells Cancelled Bite Cells Cancelled Acanthocytes (Spur) Cancelled Rouleaux Cancelled Schistocytes Cancelled Sodium 136 Potassium 3.4 L Chloride 101 Carbon Dioxide 28.0 Anion Gap 7 BUN 9 Creatinine 0.44 L Estim Creat Clear Calc 123.12 Est GFR (MDRD) Af Amer 197 Est GFR (MDRD) Non-Af 163 BUN/Creatinine Ratio 20.3 H Glucose 123 H Calcium 7.6 L Total Bilirubin 0.30 AST 10 L ALT 13 Alkaline Phosphatase 58 Total Protein 6.2 L Albumin 2.4 L Globulin 3.8 Albumin/Globulin Ratio 0.6 L Blood Type Antibody Screen Medical Necessity - Tobacco Use Smoking Status: Never smoker Tobacco Use: Non-smoker Assessment/Plan All Active Problems (Last Updated 08/23/18 @ 11:29 by Elisa Vasquez) Encephalopathy acute (Acute) Leukocytosis (Acute) Fever (Acute) Iatrogenic enterotomy (Acute) Pre-operative cardiovascular exam, new EKG abnormalities c/w ischemia (Acute) Abnormal EKG (Acute) Open wound of knee with complication (Acute) Open wound of left thigh (Acute) Pneumonia (Acute) Paronychia of toe of left foot (Acute) Lethargy (Acute) Altered mental status (Acute) Cocaine abuse (Resolved) DVT (deep venous thrombosis) (Resolved) HCAP (healthcare-associated pneumonia) (Resolved) Heroin use (Resolved) I am following this patient in conjunction with Dr. Andre S/p laparotomy with enterotomies x 2 of the transverse colon. S/p vaginal hysterectomy by Dr. Siu. Patient progressing well. Code Visit Inpatient E&M: 52414 Subs Hosp L1 - Post-op/ No charge
[2018-10-06] MEDS: Pantoprazole Sodium 20 MG Tablet PO (12:02)
[2018-10-06] MEDS: Ketorolac 10 MG Tablet PO ×2 (16:29→22:15)
[2018-10-06] MEDS: traZODone 50 MG Tablet PO (22:15)
[2018-10-06] MEDS: METHENAMINE HIPPURATE 1 GM TABLET 0.5 GM PO (22:16)
[2018-10-07] MEDS: oxyCODONE 5 MG Tablet PO ×2 (02:16→08:58)
[2018-10-07 04:42] VITALS: BP 100/52; PULSE 82; RESP 18; TEMP 36.9; O2SAT 94
[2018-10-07] MEDS: Ketorolac 10 MG Tablet PO ×2 (04:43→09:01)
[2018-10-07] MEDS: Baclofen 10 MG Tablet 40 MG PO ×2 (04:43→08:59)
[2018-10-07] MEDS: Levothyroxine 75 MCG Tablet PO (04:46)
[2018-10-07] MEDS: Heparin Injection (Vial) 5,000 UNIT/ML VIAL 5000 UNIT SC (04:46)
[2018-10-07 05:47] LABS: Absolute Lymphocyte Count 1.98 X10^3/ul (0.83-4.51); Absolute Neutrophil Count 9.1 X10^3/uL (2.0-7.7); Basophil# 0.01 X10^3/uL; Basophil% 0.1 % (0-1); Eosinophil# 0.02 X10^3/uL; Eosinophils% 0.2 % (0-5); Hematocrit 27.7 % (37-47); Hemoglobin 8.3 g/dl (12.0-15.0); Lymphocyte # 1.98 X10^3/ul (4.0); Lymphocyte % 16.8 % (19-41); Mean Corpuscular Hgb 24.2 pg (27.0-32.0); Mean Corpuscular Volume 80.8 fL (81-99); Mean Platelet Vol. 9.6 fl (6.2-12.0); Monocyte# 0.63 X10^3/uL; Monocyte% 5.3 % (0-10); Neutrophil # 9.09 X10^3/uL (2.7-7.7); Neutrophil % 77.2 % (47-70); Platelet Count 302 K/mm3 (150-450); RBC Distribution Width CV 17.2 % (11.6-14.6); RBC Distribution Width SD 48.5 fl (35.1-43.9); Red Blood Count 3.43 M/mm3 (4.2-5.4); White Blood Count 11.8 K/mm3 (4.4-11.0)
[2018-10-07 05:48] LABS: POSITIVE COUNT NO; POSITIVE DIFFERENTIAL NO; POSITIVE MORPHOLOGY NO
--- NOTE | 2018-10-07 08:51 | PCM.DC.VHY ---
Discharge Diet: No Restrictions Discharge Activity: Return to Normal Activity, May Shower May shower in (days): 0 May resume sexual activity in: 8 weeks Call your doctor if your incision/area has: Continuous Slow Oozing, Sudden Increased Bleeding, Increased Pain/ Swelling, Increased Redness, Foul Smelling Discharge, Swelling at the incision site Call your doctor if you observe: Fever of 101 or Higher, Inability to urinate, Inability to have a bowel movement, Using more than one pad per hour, Shortness of breath, Chest pain, Calf discomfort, Uncontrolled pain Remove Dressing in (days):: 3 Cleanse incision/area with: Soap & Water Allergies/Adverse Reactions: Allergies apixaban [From Eliquis] Allergy (Verified 10/05/18 08:42) Rash coconut oil Allergy (Verified 10/05/18 08:42) cant breath mometasone furoate [From Elocon] Allergy (Verified 10/05/18 08:42) Rash morphine Allergy (Verified 10/05/18 08:42) Rash rivaroxaban [From Xarelto] Allergy (Verified 10/05/18 08:42) Rash Sulfa (Sulfonamide Antibiotics) Allergy (Verified 10/05/18 08:42) Shortness of breath Medications to take at Discharge Levothyroxine [Synthroid] 75 mcg PO DAILY 05/28/15 Duloxetine HCl 120 mg PO DAILY 08/21/15 Nystatin [Nyamyc] 1 applicatio TOPICAL BID PRN 08/21/15 Hydrocodone/Acetaminophen [[place] 5-325 Tablet] 1 ea PO Q8H PRN 06/17/16 Baclofen [Lioresal] 40 mg PO Q6H 08/16/16 Gabapentin [Neurontin] 1,600 mg PO TIDCM 08/16/16 Acetaminophen [Tylenol] 650 mg PO PRN PRN 03/01/18 Bisacodyl 10 mg [place] PRN PRN 03/01/18 Cholecalciferol (Vitamin D3) [Vitamin D3] 5,000 unit PO DAILY 03/01/18 Guaifenesin [Robitussin] 10 ml PO Q4H PRN PRN 03/01/18 Lactobacillus Rhamnosus GG [Culturelle] 1 ea PO DAILY 03/01/18 Linaclotide [Linzess] 290 mcg PO DAILY 03/01/18 Methenamine Hippurate 0.5 gm PO QHS 03/01/18 Omeprazole 20 mg PO LUNCH 03/01/18 Trazodone HCl 50 mg PO QHS 03/01/18 Furosemide [Lasix] 40 mg PO DAILY 05/26/18 Oxybutynin Chloride [Ditropan Xl] 20 mg PO LUNCH 08/16/18 Polyethylene Glycol 3350 [Miralax] 17 gm PO QHS 08/16/18 Sennosides [Senna] 17.2 mg PO BID 08/16/18 Trimethoprim 100 mg PO DAILY 08/16/18 Citric AC/Gluconolact/Mag Carb [Renacidin Irrigation Solution] 30 ml INTRA-UTER QHS 08/27/18 Ondansetron [Zofran Odt] 4 mg PO Q12H PRN PRN 08/27/18 Oxycodone [Oxyir] 5 - 10 mg PO Q4H PRN PRN 7 Days #30 tab 10/05/18 HYDROmorphone tablet [Dilaudid] 2 mg PO Q3H PRN PRN 7 Days #30 tab 10/07/18 Ibuprofen 600 mg PO 4X/DAY #30 tab 10/07/18 The following prescriptions were given: HYDROmorphone tablet [Dilaudid] 2 mg PO Q3H PRN PRN 7 Days #30 tab PRN Reason: strong pain Oxycodone [Oxyir] 5 - 10 mg PO Q4H PRN PRN 7 Days #30 tab PRN Reason: Mod-Severe Pain (4-10/10) Ibuprofen 600 mg PO 4X/DAY #30 tab Orders to be completed after discharge: Thyroid Stim Hormone (TSH) Time Frame: 09/29/18, Location: Laboratory Primary Care Physician: Lavon Vicente MD [Primary Care Provider] - Test Results: Test results from this visit will be discussed in further detail at your follow-up appointment, if applicable. Please Follow Up With: Renzo Siu MD When: one week Proposed Discharge Date: 10/06/18
--- NOTE | 2018-10-07 08:55 | PN_ITS ---
Patient Problems: Active and Suspected Problems (Last Updated 08/23/18 @ 11:29 by Elisa Vasquez) Iatrogenic enterotomy (Acute) Subjective: Uncomfortable but pain reasonably controlled. No nausea or vomitting. No fevers. Tolerating PO Objective: Afeb VSS WBC decreased - Physical Exam General: Alert, Oriented x3, Cooperative, No apparent distress Lungs: Clear to auscultation, Normal air movement Cardiovascular: Regular rate, Regular Rhythm Abdomen: Soft, Obese, - - Mild distension. Incision intact, no erythema Extremities: No edema Skin: No rashes Neurological: Neuro grossly intact Psych/Mental Status: Normal Affect Comment: Scant vaginal bleeding Vital Signs Temp Pulse Resp BP Pulse Ox 98.5 F 82 18 100/52 L 94 10/07/18 04:42 10/07/18 04:42 10/07/18 04:42 10/07/18 04:42 10/07/18 04:42 Oxygen Flow Rate (L/min) 2 Oxygen Delivery Method Room Air Weight: 204 lb 0.005 oz Body Mass Index (BMI) 38.5 Intake and Output for Last 24 Hours 10/05/18 10/06/18 10/07/18 23:59 23:59 23:59 Intake Total 2049 / 2049 5298 / 5298 850 / 850 Output Total 1300 / 1300 2900 / 2900 1200 / 1200 Balance 750 / 750 2398 / 2398 -350 / -350 Laboratory Tests Past 24 Hrs 10/07/18 05:30 WBC 11.8 H RBC 3.43 L Hgb 8.3 L Hct 27.7 L MCV 80.8 L MCH 24.2 L MCHC 30.0 L RDW 17.2 H RDW Differential 48.5 H Plt Count 302 MPV 9.6 Immature Gran % (Auto) 0.400 Neut % (Auto) 77.2 H Lymph % (Auto) 16.8 L [place] % (Auto) 5.3 Eos % (Auto) 0.2 Baso % (Auto) 0.1 Absolute Neuts (auto) 9.1 H Absolute Lymphs (auto) 1.98 Total Counted Not Reportable Medical Necessity - Tobacco Use Smoking Status: Never smoker Tobacco Use: Non-smoker Assessment/Plan All Active Problems (Last Updated 08/23/18 @ 11:29 by Elisa Vasquez) Encephalopathy acute (Acute) Leukocytosis (Acute) Fever (Acute) Iatrogenic enterotomy (Acute) Pre-operative cardiovascular exam, new EKG abnormalities c/w ischemia (Acute) Abnormal EKG (Acute) Open wound of knee with complication (Acute) Open wound of left thigh (Acute) Pneumonia (Acute) Paronychia of toe of left foot (Acute) Lethargy (Acute) Altered mental status (Acute) Cocaine abuse (Resolved) DVT (deep venous thrombosis) (Resolved) HCAP (healthcare-associated pneumonia) (Resolved) Heroin use (Resolved) Doing reasonably well from postoperative standpoint. Is cleared for discharge home today. Will send home with prescriptions for ibuprofen, dilaudi, and oxycodone for pain due to narcotic tolerance issue. Will followup in office next week to remove antolin.
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
[2018-10-07] MEDS: Senna/Docusate Sodium 1 Tablet PO (08:59)
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
[2018-10-07] MEDS: Linacolotide 145 MCG CAPSULE 290 MCG PO (09:00)
[2018-10-07] MEDS: DULoxetine Hcl 60 MG Capsule 120 MG PO (09:00)
[2018-10-07] MEDS: Furosemide 40 MG Tablet PO (09:00)
[2018-10-07] MEDS: Gabapentin 800 MG Tablet 1600 MG PO (09:00)
[2018-10-07 09:05] VITALS: BP 107/56; PULSE 96; RESP 20; TEMP 37.2; O2SAT 96
--- NOTE | 2018-10-07 10:00 | NURSING ---
report called to [facility].
--- NOTE | 2018-10-07 10:08 | CASEMGMT ---
Pt is ready for discharge today back to [facility]. MAIKEL faxed all discharge instructions to [facility], schedule II to [facility]. MAIKEL set up 11am ambulance w/[facility], MAIKEL let pt, pt's RN here, Yeimy at [facility] and pt know time of discharge. SW asked pt if she would like SW to call her son to let him know she is being discharged. She states that he is working, spoke about letting her daughter know. Pt states that her daughter is in [place], then said she was in [place] somewhere. SW explained will look at the paperwork from [facility] for a number and call her, pt agreeable. SW looked at the paperwork, there is no information on daughter in the information from [facility]. SW asked pt if she has a number for daughter, and she states she does not know where daughter is. SW did then call son to let him know pt is returning to [facility] today at 11 as there seems to be no way to reach daughter. MAIKEL also asked Yeimy about pt's daughter, they have no record of pt having a daughter. No further needs, pt to [facility] today. MEGHANN Swann
--- NOTE | 2018-10-07 18:33 | NURSING ---
doug called to [facility].. conf # [id number]
== END 2018-10-07 11:05 | disposition intermediate care facility (04) | DRG 742 ==
LOC: MS2 09:02
PROVIDERS: Anesthesiology; Surgery; Admitting Provider Obstetrics & Gynecology; Family Provider Family Medicine; PCP Family Medicine; Referring Provider Obstetrics & Gynecology; Visit Provider Obstetrics & Gynecology
PROC: 0UT9FZZ Resection of Uterus, Via Natural or Artificial Opening With Percutaneous Endoscopic Assistance (ICD-10-PCS; principal; 2018-10-05 09:05)
DX: N92.1 Excessive and frequent menstruation with irregular cycle (principal); G82.50 Quadriplegia, unspecified; K91.72 Accidental puncture and laceration of a digestive system organ or structure during other procedure; Y83.8 Other surgical procedures as the cause of abnormal reaction of the patient, or of later complication, without mention of misadventure at the time of the procedure; Z53.31 Laparoscopic surgical procedure converted to open procedure; E66.01 Morbid (severe) obesity due to excess calories; Z68.38 Body mass index [BMI] 38.0-38.9, adult; S14.107S Unspecified injury at C7 level of cervical spinal cord, sequela; W16.42XS Fall into unspecified water causing other injury, sequela; E03.9 Hypothyroidism, unspecified
CPT/HCPCS: 36415; 80053; 84443; 84703; 85025; 85027; 85610; 85730; 86850; 86900; 88307; 97802; J7120; J2405

== ENCOUNTER 2018-10-09 21:22 | Inpatient (IN) | payer MEDICARE, MEDICAID, SELFPAY ==
[2018-10-09 21:23] VITALS: BP 107/83; PULSE 114; RESP 20; TEMP 38.9; O2SAT 97; BMI 41.0
[2018-10-09 22:00] VITALS: BP 110/66; PULSE 110; RESP 20; TEMP 38.9; O2SAT 97
--- NOTE | 2018-10-09 22:00 | CT_ITS ---
STUDY: CT ABDOMEN AND PELVIS WITH CONTRAST REASON FOR EXAM: Female, 43 years old. Fever and mental status changes RADIATION DOSAGE (If Supplied By Facility): CTDIvol = ( 20.57 ) mGy, DLP = ( 1800.61 ) mGycm TECHNIQUE: Transaxial images were obtained from the dome of the diaphragm to the symphysis pubis without oral contrast. 100ML IV Isovue 300 was administered. Sagittal and coronal images were reconstructed. Individualized dose optimization techniques were used for this CT. COMPARISON: Prior study of 02/04/2018 FINDINGS: There are mild streaky fibrotic or atelectatic changes of the lung bases and right middle lobe. The visualized portions of the heart are within normal limits. Normal liver. The gallbladder is mildly distended. Normal spleen. Normal pancreas. Normal bilateral adrenal glands. Normal right kidney. Normal left kidney. Normal visualized stomach. There is diffuse fatty stranding of the abdomen and pelvis. There is no evidence of small bowel ileus or obstruction. There are numerous small dense radiopacities in the cecum. There is a moderate colonic stool burden. The appendix is not identified. Normal abdominal aorta. Normal inferior vena cava. Normal retroperitoneum. A catheter is seen within a decompressed urinary bladder. There is absence of the uterus consistent with a prior hysterectomy. There is a row of vertical midline abdominal wall skin antolin. There are multiple tiny air densities along the abdominal wall deep to the staple line. There is a small fat-containing umbilical hernia with several tiny air densities within. There is a deep subcutaneous fluid collection of the anterior right pelvic region measuring 7.2 x 5.5 x 2.2 cm. There is a tiny gas collection anterior to this fluid collection. This may represent a postoperative seroma or abscess. Status post old ORIF changes of the left femur are noted. There is deformity of the right femoral head and acetabulum. There is an increase lower lumbar lordosis. CT/Abdomen/Pelvis W IV Cont ONLY IMPRESSION: 1. Mild streaky fibrotic or atelectatic changes of the lung bases and right middle lobe. 2. Mildly distended gallbladder. No calcified gallstones are seen within. 3. There is diffuse fatty stranding within the abdomen and pelvis. There is no evidence of small bowel ileus or obstruction. 4. There are numerous small dense radiopacities in the cecum. There is a moderate colonic stool burden. 5. A catheter is seen within a decompressed urinary bladder. 6. Status post hysterectomy. 7. Small fat-containing umbilical hernia with several tiny air densities within. 8. There is a deep subcutaneous fluid collection of the anterior right pelvic region with a tiny gas collection anterior to this focus. This may represent a postoperative seroma or abscess. 9. Status post old ORIF changes of the left femur. 10. Deformity of the right femoral head and acetabulum. Electronically Signed: Bharathi Cade MD at 23:14 EDT , Service support ,
--- NOTE | 2018-10-09 22:02 | ED.VISSUMM ---
- ER Visit Summary Date of Service: 10/09/18 Chief Complaint: Fever History of Present Illness: The patient is a 43 F history of anemia, quadriplegia from a prior spine injury, Pjwoy-Nzfgqcrmz-Dbjqe and kidney stones. Patient underwent a hysterectomy last week here at this hospital and had a bowel injury at the time of surgery. Patient was discharged on Wednesday. He has an indwelling Mccarthy catheter. Not having fevers since Wednesday evening. Nausea but no vomiting. Physical Examination: Middle-aged female vital signs stable temperature 102. Patient does not look septic or toxic. No acute distress. HEENT exam unremarkable. Moist with membranes. Neck nontender. Prior tracheostomy scar. Closed. Lungs clear to all station bilaterally. Heart regular rhythm rate about 115. No murmur. Chest nontender. Abdomen obese. Soft. Well-healing midline vertical hysterectomy incision. Ostomy is clean. No signs of cellulitis. No discharge. She does have bruising on her lower abdomen that I suspect was anticoagulation. Indwelling Mccarthy catheter. She is severely decreased weakness in both upper extremities from her prior quadriplegia. And has flaccid paralysis and no sensation in the lower extremities. Neurologically she is awake alert answering questions. Test Results: Because chest x-ray shows no acute on normality read by myself and radiologist. CBC shows a white count of 19,100. Hemoglobin of 9.9 previously was 8. Hematocrit 30. Electrolytes unremarkable. Normal gap and creatinine. UA positive nitrites 25-50 white cells 1+ bacteria culture was sent. She does have a chronic indwelling Mccarthy catheter. Lactic acid 1.3. Blood cultures x1 were done they were unable get the second. CT abdomen pelvis with IV contrast reveals a fluid collection in the pelvis with some air which may be a postop abscess versus a seroma per the radiologist. This will be treated as a anterior abdominal abscess until proven otherwise. Emergency Department Course and Treatment: Fever post surgery. Treated with IV fluids and Tylenol. Repeat exam no change. Patient started on IV Zosyn for both UTI and possible anterior abdominal postop abscess Treatment Plan: Admission for fever, UTI and suspected intra-abdominal postop abscess. I spoke to Dr. Brant Lauren FORMAL SERVICE WAITER covering for Dr. Renzo Siu. Disposition: Admission Impression: Status post hysterectomy Acute fever Acute intra-abdominal abscess status post hysterectomy UTI History of quadriplegia This note was generated with Dragon dictation software. It may contain incorrect words, spelling, and punctuation that were not noted in review of the chart prior to signing ED Disposition - Plan for ED Patient: Referrals: Lavon Vicente MD [Primary Care Provider] -
--- NOTE | 2018-10-09 22:05 | ED.DCSUM_ITS ---
- ER Visit Summary Date of Service: 10/09/18 Chief Complaint: Fever History of Present Illness: The patient is a 43 F history of anemia, quadriplegia from a prior spine injury, Vanqa-Cfagmeuxi-Fdcdo and kidney stones. Patient underwent a hysterectomy last week here at this hospital and had a bowel injury at the time of surgery. Patient was discharged on Wednesday. He has an indwelling Mccarthy catheter. Not having fevers since Wednesday evening. Nausea but no vomiting. Physical Examination: Middle-aged female vital signs stable temperature 102. Patient does not look septic or toxic. No acute distress. HEENT exam unremarkable. Moist with membranes. Neck nontender. Prior tracheostomy scar. Closed. Lungs clear to all station bilaterally. Heart regular rhythm rate about 115. No murmur. Chest nontender. Abdomen obese. Soft. Well-healing midline vertical hysterectomy incision. Ostomy is clean. No signs of cellulitis. No discharge. She does have bruising on her lower abdomen that I suspect was anticoagulation. Indwelling Mccarthy catheter. She is severely decreased weakness in both upper extremities from her prior quadriplegia. And has flaccid paralysis and no sensation in the lower extremities. Neurologically she is awake alert answering questions. Test Results: Because chest x-ray shows no acute on normality read by myself and radiologist. CBC shows a white count of 19,100. Hemoglobin of 9.9 previously was 8. Hematocrit 30. Electrolytes unremarkable. Normal gap and creatinine. UA positive nitrites 25-50 white cells 1+ bacteria culture was sent. She does have a chronic indwelling Mccarthy catheter. Lactic acid 1.3. Blood cultures x1 were done they were unable get the second. CT abdomen pelvis with IV contrast reveals a fluid collection in the pelvis with some air which may be a postop abscess versus a seroma per the radiologist. This will be treated as a anterior abdominal abscess until proven otherwise. Emergency Department Course and Treatment: Fever post surgery. Treated with IV fluids and Tylenol. Repeat exam no change. Patient started on IV Zosyn for both UTI and possible anterior abdominal postop abscess Treatment Plan: Admission for fever, UTI and suspected intra-abdominal postop abscess. I spoke to Dr. Brant Lauren GATE SERVICES SUPERVISOR covering for Dr. Renzo Siu. Disposition: Admission Impression: Status post hysterectomy Acute fever Acute intra-abdominal abscess status post hysterectomy UTI History of quadriplegia This note was generated with Dragon dictation software. It may contain incorrect words, spelling, and punctuation that were not noted in review of the chart prior to signing ED Disposition - Plan for ED Patient: Referrals: Lavon Vicente MD [Primary Care Provider] -
[2018-10-09 22:20] LABS: Color, Urine Yellow (Yellow); Glucose, Dipstick Normal (Normal); Ketone-Dipstick 15 mg/dl (Negative); Leukocyte Esterase-Dipstick 500 /ul (Negative); Nitrite-Dipstick Positive (Negative); Occult Blood-Urine 10 /ul (Negative); Protein-Dipstick 30 mg/dl (Negative); Urine Bilirubin Dipstick Negative (Negative); Urine Clarity Clear (Clear); Urine Urobilinogen 1 mg/dl (Normal)
[2018-10-09 22:22] LABS: Absolute Lymphocyte Count 2.52 X10^3/ul (0.83-4.51); Absolute Neutrophil Count 14.9 X10^3/uL (2.0-7.7); Basophil# 0.02 X10^3/uL; Basophil% 0.1 % (0-1); Eosinophil# 0.13 X10^3/uL; Eosinophils% 0.7 % (0-5); Hematocrit 30.9 % (37-47); Hemoglobin 9.9 g/dl (12.0-15.0); Lymphocyte # 2.52 X10^3/ul (4.0); Lymphocyte % 13.2 % (19-41); Mean Corpuscular Hgb 24.9 pg (27.0-32.0); Mean Corpuscular Volume 77.6 fL (81-99); Mean Platelet Vol. 9.1 fl (6.2-12.0); Monocyte# 1.45 X10^3/uL; Monocyte% 7.6 % (0-10); Neutrophil # 14.85 X10^3/uL (2.7-7.7); Neutrophil % 77.9 % (47-70); Platelet Count 468 K/mm3 (150-450); RBC Distribution Width CV 17.1 % (11.6-14.6); RBC Distribution Width SD 48.8 fl (35.1-43.9); Red Blood Count 3.98 M/mm3 (4.2-5.4); White Blood Count 19.1 K/mm3 (4.4-11.0)
[2018-10-09 22:29] LABS: POSITIVE COUNT NO; POSITIVE DIFFERENTIAL NO; POSITIVE MORPHOLOGY NO
--- NOTE | 2018-10-09 22:30 | RAD_ITS ---
STUDY: X-RAY CHEST REASON FOR EXAM: Female, 43 years old. Mental status change TECHNIQUE: Single AP portable view of the chest. COMPARISON: Prior study of 08/28/2018 FINDINGS: The lungs are clear and expanded. There is no demonstrated pleural abnormality. Normal size heart. Normal mediastinum and bia. Normal visualized pulmonary arteries. Normal visualized aortic arch and descending thoracic aorta. There is a thoracic dextroscoliosis. Orthopedic hardware is seen overlying the cervical region. Normal visualized ribs, clavicles, and shoulders. There is no demonstrated abnormality of the visualized soft tissue structures of the upper abdomen. RAD/Chest 1 View (Portable) IMPRESSION: Thoracic dextroscoliosis. Orthopedic hardware seen overlying the cervical region. No acute cardiopulmonary disease process is seen. Electronically Signed: Bharathi Cade MD at 23:30 EDT , Service support ,
[2018-10-09 22:31] LABS: Bacteria 1+ /hpf (None Seen); Red Blood Cells-Urine 0-5 SEEN /hpf (0-5); Squamous Epithelial Cells - UA 0-5 SEEN /hpf (5-10); White Blood Cells 25-50 SEEN /hpf (0-5)
[2018-10-09 22:32] LABS: Mucous, Urine 2+ /hpf (<or=2+)
[2018-10-09 22:33] LABS: Anion Gap 10 (5-15); BUN 11 mg/dL (7-18); BUN/Creat Ratio 27.7 RATIO (10-20); Calcium,Total 8.5 mg/dL (8.5-10.1); Chloride 101 mmol/L (98-107); EST Glomerular Filtration Rate 185 mL/min (>60); Est Glom Filt Rate - Afr Amer 224 mL/min (>60); Estimated Creatinine Clearance 135.43 ml/min; Glucose 115 mg/dL (74-106); Potassium 3.4 mmol/L (3.5-5.1); Sodium Level 138 mmol/L (136-145)
[2018-10-09] MEDS: Acetaminophen 500 MG Tablet 1000 MG PO (22:36)
[2018-10-09] MEDS: 0.9% Normal Saline 1,000 ML 999 ML IV (22:36)
[2018-10-09 22:37] LABS: Lactic Acid 1.3 mmol/L (0.4-2.0)
[2018-10-09 23:00] VITALS: BP 107/56; PULSE 102; RESP 19; TEMP 37.7; O2SAT 93
--- NOTE | 2018-10-09 23:28 | ED.RN ---
pt arrives to ed with pearl catheter in place from [facility].
[2018-10-10] VITALS (8 sets, daily range): BP systolic 96–137; BP diastolic 44–67; PULSE 74–100; RESP 16–22; TEMP 36.8–38.1; O2SAT 95–100; BMI 39.3
[2018-10-10] MEDS: HYDROcodone Bitartrate/Apap 5/325 Tablet PO (00:31)
--- NOTE | 2018-10-10 00:33 | ED.RN ---
PT WITH HX OF SLEEP APNEA. 90% ON ROOM AIR WHEN RESTING WITH EYES CLOSED. 2L NC APPLIED. SATTING 94-97% WHEN ASLEEP. DR. FUNES INFORMED.
[2018-10-10] MEDS: Ketorolac 30 MG/ML Syringe IV (00:44)
--- NOTE | 2018-10-10 01:03 | ED.RN ---
PT WITH LOW BP READING ON MONITOR, PT CUFF HAD SLID OFF HER ARM. BP CUFF RE-ADJUSTED AND REPEATED BP 111/76.
[2018-10-10] MEDS: Lactated Ringers 1,000 ML 125 ML IV ×3 (03:38→19:42)
[2018-10-10] MEDS: oxyCODONE 5 MG Tablet PO ×2 (08:39→17:23)
--- NOTE | 2018-10-10 09:17 | CASEMGMT ---
Addendum entered by Debra Rodrigues 10/10/18 11:38: SW placed transfer to extended care form on pt's chart. Original Note: Addendum entered by Debra Rodrigues 10/10/18 11:12: SW spoke with pt, introduced self and role at [facility]. Pt is alert and orientated x3. Pt confirms that she is from [facility] and plan is for pt to return there at discharge. Original Note: Social Work Note Pt was previously at 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 SW placed a call to Lauren at [facility] and left her a message regarding pt. SW faxed clinicals to [facility]. SW to continue to follow. Debra Rodrigues CUSTOMER SOLUTIONS REPRESENTATIVE, MEAT AND SEAFOOD MANAGER
--- NOTE | 2018-10-10 10:04 | NURSING ---
wound photo: abdomen
--- NOTE | 2018-10-10 10:05 | NURSING ---
wound photo: right gluteal crease
--- NOTE | 2018-10-10 12:42 | CASEMGMT ---
Social Work Note SW received message from Lauren at [facility] confirming pt is half-way resident and is able to return once medically cleared. Plan: Return to [facility] once medically cleared Debra Rodrigues REVENUE FIELD AUDITOR, BAR TACKER
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
[2018-10-10] MEDS: Gabapentin 400 MG Capsule 1600 MG PO (14:02)
[2018-10-10] MEDS: Ondansetron ODT 4 MG Tablet PO (14:02)
[2018-10-10] MEDS: Baclofen 10 MG Tablet 40 MG PO ×3 (14:03→23:32)
[2018-10-10] MEDS: Ketorolac 30 MG/ML Syringe IM ×2 (17:24→23:32)
[2018-10-10] MEDS: Polyethylene Glycol 3350 17 GM PACKET PO (21:26)
[2018-10-10] MEDS: METHENAMINE HIPPURATE 1 GM TABLET 0.5 GM PO (21:26)
[2018-10-10] MEDS: Ascorbic Acid 500 MG Tablet 1000 MG PO (21:27)
[2018-10-10] MEDS: Senna Tablet 2 TABLET PO (21:27)
[2018-10-10] MEDS: traZODone 50 MG Tablet PO (21:27)
[2018-10-11] MEDS: Lactated Ringers 1,000 ML 125 ML IV ×3 (02:59→21:07)
[2018-10-11 05:04] VITALS: BP 108/67; PULSE 70; RESP 18; TEMP 36.9; O2SAT 95
[2018-10-11] MEDS: Levothyroxine 75 MCG Tablet PO (05:10)
[2018-10-11] MEDS: Ketorolac 30 MG/ML Syringe IM (05:10)
[2018-10-11] MEDS: Baclofen 10 MG Tablet 40 MG PO ×4 (05:11→23:36)
[2018-10-11] MEDS: Acetaminophen 325 MG Tablet 650 MG PO (05:14)
[2018-10-11] MEDS: oxyCODONE 5 MG Tablet PO ×2 (05:14→20:46)
[2018-10-11 07:07] LABS: Absolute Neutrophil Count 7.2 X10^3/uL (2.0-7.7); Basophil# 0.02 X10^3/uL; Basophil% 0.2 % (0-1); Eosinophil# 0.22 X10^3/uL; Hematocrit 24.5 % (37-47); Hemoglobin 7.4 g/dl (12.0-15.0); Lymphocyte % 21.3 % (19-41); Mean Corp Hgb Conc 30.2 g/gl (32-36); Mean Corpuscular Hgb 24.2 pg (27.0-32.0); Mean Corpuscular Volume 80.1 fL (81-99); Mean Platelet Vol. 8.9 fl (6.2-12.0); Monocyte# 0.96 X10^3/uL; Monocyte% 8.9 % (0-10); Neutrophil # 7.17 X10^3/uL (2.7-7.7); Neutrophil % 66.3 % (47-70); Platelet Count 411 K/mm3 (150-450); RBC Distribution Width CV 17.5 % (11.6-14.6); RBC Distribution Width SD 48.7 fl (35.1-43.9); Red Blood Count 3.06 M/mm3 (4.2-5.4); White Blood Count 10.8 K/mm3 (4.4-11.0)
[2018-10-11 07:09] LABS: POSITIVE COUNT NO; POSITIVE DIFFERENTIAL NO; POSITIVE MORPHOLOGY NO
[2018-10-11] MEDS: Gabapentin 400 MG Capsule 1600 MG PO ×3 (07:57→18:24)
--- NOTE | 2018-10-11 08:29 | PN_ITS ---
Subjective: Appears well. No specific complaints. Tolerating PO well. States has had bowel movement. No cough or difficulty breathing. Objective: Afeb VSS. WBC decreased to 10 today. Hct 24. - Physical Exam General: Alert, Oriented x3, Cooperative, No apparent distress Lungs: Clear to auscultation, Normal air movement Cardiovascular: Regular rate, Regular Rhythm Abdomen: Bowel Sounds Present, Soft, Non Tender, Non-Distended, - - Incision appearis intact with no erythema. Sacnat drainage from upper portion of incision. Nithya in place. Extremities: No edema Skin: No rashes Psych/Mental Status: Normal Affect Comment: No vaginal bleeding Vital Signs Temp Pulse Resp BP Pulse Ox 98.5 F 70 18 108/67 95 10/11/18 05:04 10/11/18 05:04 10/11/18 05:04 10/11/18 05:04 10/11/18 05:04 Oxygen Flow Rate (L/min) 1.5 Oxygen Delivery Method Room Air Weight: 208 lb 1.862 oz Body Mass Index (BMI) 39.3 Intake and Output for Last 24 Hours 10/09/18 10/10/18 10/11/18 23:59 23:59 23:59 Intake Total 2732 / 2732 1914 / 1914 Output Total 1950 / 1950 950 / 950 Balance 782 / 782 964 / 964 Laboratory Tests Past 24 Hrs 10/11/18 06:50 WBC 10.8 RBC 3.06 L Hgb 7.4 L Hct 24.5 L MCV 80.1 L MCH 24.2 L MCHC 30.2 L RDW 17.5 H RDW Differential 48.7 H Plt Count 411 MPV 8.9 Immature Gran % (Auto) 1.300 H Neut % (Auto) 66.3 Lymph % (Auto) 21.3 Mckean % (Auto) 8.9 Eos % (Auto) 2.0 Baso % (Auto) 0.2 Absolute Neuts (auto) 7.2 Absolute Lymphs (auto) 2.30 Total Counted Not Reportable Medical Necessity - Tobacco Use Smoking Status: Never smoker Assessment/Plan All Active Problems (Last Updated 08/23/18 @ 11:29 by Elisa Vasquez) Encephalopathy acute (Acute) Leukocytosis (Acute) Fever (Acute) Iatrogenic enterotomy (Acute) Pre-operative cardiovascular exam, new EKG abnormalities c/w ischemia (Acute) Abnormal EKG (Acute) Open wound of knee with complication (Acute) Open wound of left thigh (Acute) Pneumonia (Acute) Paronychia of toe of left foot (Acute) Lethargy (Acute) Altered mental status (Acute) Cocaine abuse (Resolved) DVT (deep venous thrombosis) (Resolved) HCAP (healthcare-associated pneumonia) (Resolved) Heroin use (Resolved) Post operative fever. Urine analysis indicates UTI. Chest xray normal. CT scan with small fluid collection. fever improved and WBC lower today. WOund culture sent. Will await urine culture results and blood culture results. WIll continue piperacillin for now. Repeat CBC with diff in am tomorrow. She does not want toradol due to burning in IV. Will switch to ibuprofen.
--- NOTE | 2018-10-11 08:45 | CASEMGMT ---
Social Work Note Per progress notes, pt is not discharging today. SW faxed updated clinicals to [facility], wrote on fax sheet that pt is not medically cleared for discharge. Plan: Return to [facility] once medically cleared Debra Rodrigues MSW, PRECISION LENS GRINDER APPRENTICE
[2018-10-11 09:53] VITALS: BP 98/65; PULSE 58; RESP 18; TEMP 37.1; O2SAT 95
[2018-10-11] MEDS: Senna Tablet 2 TABLET PO ×2 (10:24→21:05)
[2018-10-11] MEDS: DULoxetine Hcl 60 MG Capsule 120 MG PO (10:25)
[2018-10-11] MEDS: Linacolotide 145 MCG CAPSULE 290 MCG PO (10:26)
[2018-10-11] MEDS: Enoxaparin 40 MG/0.4 ML Syringe SC (10:27)
[2018-10-11] MEDS: Furosemide 40 MG Tablet PO (10:27)
[2018-10-11] MEDS: Tolterodine Tartrate 4 MG CAP.SA PO (12:23)
[2018-10-11] MEDS: Pantoprazole Sodium 20 MG Tablet PO (12:23)
[2018-10-11 14:22] VITALS: BP 156/84; PULSE 54; RESP 18; TEMP 37.2; O2SAT 96
[2018-10-11 20:42] VITALS: BP 134/80; PULSE 90; RESP 16; TEMP 36.9; O2SAT 100
[2018-10-11] MEDS: Ascorbic Acid 500 MG Tablet 1000 MG PO (21:05)
[2018-10-11] MEDS: traZODone 50 MG Tablet PO (21:05)
[2018-10-11] MEDS: METHENAMINE HIPPURATE 1 GM TABLET 0.5 GM PO (21:06)
[2018-10-11] MEDS: Polyethylene Glycol 3350 17 GM PACKET PO (21:07)
[2018-10-11] MEDS: Ibuprofen 600 MG Tablet PO (23:36)
[2018-10-12 02:20] VITALS: BP 101/53; PULSE 72; RESP 18; TEMP 36.5; O2SAT 96
[2018-10-12] MEDS: Levothyroxine 75 MCG Tablet PO (05:06)
[2018-10-12] MEDS: oxyCODONE 5 MG Tablet PO ×3 (05:06→20:58)
[2018-10-12] MEDS: Baclofen 10 MG Tablet 40 MG PO ×4 (05:06→23:39)
[2018-10-12] MEDS: Lactated Ringers 1,000 ML 125 ML IV ×3 (05:08→21:46)
[2018-10-12 06:11] LABS: Absolute Lymphocyte Count 2.17 X10^3/ul (0.83-4.51); Absolute Neutrophil Count 6.6 X10^3/uL (2.0-7.7); Basophil# 0.02 X10^3/uL; Basophil% 0.2 % (0-1); Eosinophil# 0.21 X10^3/uL; Eosinophils% 2.1 % (0-5); Hematocrit 25.4 % (37-47); Hemoglobin 7.5 g/dl (12.0-15.0); Lymphocyte # 2.17 X10^3/ul (4.0); Lymphocyte % 21.5 % (19-41); Mean Corp Hgb Conc 29.5 g/gl (32-36); Mean Corpuscular Volume 81.4 fL (81-99); Mean Platelet Vol. 8.8 fl (6.2-12.0); Monocyte# 0.86 X10^3/uL; Monocyte% 8.5 % (0-10); Neutrophil # 6.62 X10^3/uL (2.7-7.7); Neutrophil % 65.7 % (47-70); Platelet Count 426 K/mm3 (150-450); RBC Distribution Width CV 17.7 % (11.6-14.6); RBC Distribution Width SD 50.1 fl (35.1-43.9); Red Blood Count 3.12 M/mm3 (4.2-5.4); White Blood Count 10.1 K/mm3 (4.4-11.0)
[2018-10-12 06:25] LABS: POSITIVE COUNT YES; POSITIVE DIFFERENTIAL NO; POSITIVE MORPHOLOGY YES
[2018-10-12] MEDS: Gabapentin 400 MG Capsule 1600 MG PO ×3 (07:33→16:44)
[2018-10-12] MEDS: DULoxetine Hcl 60 MG Capsule 120 MG PO (07:33)
[2018-10-12] MEDS: Furosemide 40 MG Tablet PO (07:33)
[2018-10-12] MEDS: Enoxaparin 40 MG/0.4 ML Syringe SC (07:34)
[2018-10-12] MEDS: Senna Tablet 2 TABLET PO (07:34)
[2018-10-12 07:43] VITALS: BP 132/97; PULSE 78; RESP 16; TEMP 36.8; O2SAT 94
--- NOTE | 2018-10-12 08:21 | PCM.PROGNOTE ---
Subjective: Seems to be doing well. No specific complaints. No BM for a few days but is passing flatus. No N/V. No chills or cough. Objective: Afeb VSS WBC stable and normal. Hgb stable - Physical Exam General: Alert, Oriented x3, Cooperative, No apparent distress Lungs: Clear to auscultation, Normal air movement Cardiovascular: Regular rate, Regular Rhythm Abdomen: Soft, Non Tender, Non-Distended, Passing Flatus, - - Incision intact with antolin in place. No erythema Extremities: No edema Psych/Mental Status: Normal Affect Comment: No vaginal bleeding Vital Signs Temp Pulse Resp BP Pulse Ox 98.3 F 78 16 132/97 H 94 10/12/18 07:43 10/12/18 07:43 10/12/18 07:43 10/12/18 07:43 10/12/18 07:43 Oxygen Flow Rate (L/min) 2 Oxygen Delivery Method Room Air Weight: 208 lb 1.862 oz Body Mass Index (BMI) 39.3 Intake and Output for Last 24 Hours 10/10/18 10/11/18 10/12/18 23:59 23:59 23:59 Intake Total 2732 / 2732 5685.2 / 5685.2 1078.6 / 1078.6 Output Total 1950 / 1950 2350 / 2350 1000 / 1000 Balance 782 / 782 3335.2 / 3335.2 78.6 / 78.6 Microbiology Past 72 Hours 10/10/18 00:27 Urine Culture - Preliminary Urine Catheter - Mccarthy Pseudomonas aeroginosa GPC Poss Enterococcus sp 10/11/18 08:00 Gram Stain - Final Wound Drainage - Aerobic & Anaerobic Swabs Laboratory Tests Past 24 Hrs 10/12/18 05:40 WBC 10.1 RBC 3.12 L Hgb 7.5 L Hct 25.4 L MCV 81.4 MCH 24.0 L MCHC 29.5 L RDW 17.7 H RDW Differential 50.1 H Plt Count 426 MPV 8.8 Immature Gran % (Auto) 2.000 H Neut % (Auto) 65.7 Lymph % (Auto) 21.5 Bandera % (Auto) 8.5 Eos % (Auto) 2.1 Baso % (Auto) 0.2 Absolute Neuts (auto) 6.6 Absolute Lymphs (auto) 2.17 Total Counted Not Reportable Diff Path Review October Medical Necessity - Tobacco Use Smoking Status: Never smoker Assessment/Plan All Active Problems (Last Updated 08/23/18 @ 11:29 by Elisa Vasquez) Encephalopathy acute (Acute) Leukocytosis (Acute) Fever (Acute) Iatrogenic enterotomy (Acute) Pre-operative cardiovascular exam, new EKG abnormalities c/w ischemia (Acute) Abnormal EKG (Acute) Open wound of knee with complication (Acute) Open wound of left thigh (Acute) Pneumonia (Acute) Paronychia of toe of left foot (Acute) Lethargy (Acute) Altered mental status (Acute) Cocaine abuse (Resolved) DVT (deep venous thrombosis) (Resolved) HCAP (healthcare-associated pneumonia) (Resolved) Heroin use (Resolved) Continues to be afebrile. Urine culture with Pseudomonas. Wound culture and blood cultures pending. Will continue antibiotics for an additional 24 hours then consider d/s antibiotics. Will consider removing surgical antolin tomorrow.
[2018-10-12] MEDS: Linacolotide 145 MCG CAPSULE 290 MCG PO (09:43)
[2018-10-12] MEDS: Pantoprazole Sodium 20 MG Tablet PO (11:44)
[2018-10-12] MEDS: Tolterodine Tartrate 4 MG CAP.SA PO (13:34)
[2018-10-12 13:39] VITALS: BP 153/85; PULSE 53; RESP 16; TEMP 36.7; O2SAT 95
[2018-10-12 21:30] VITALS: BP 130/73; PULSE 74; RESP 16; TEMP 37; O2SAT 97
[2018-10-12] MEDS: METHENAMINE HIPPURATE 1 GM TABLET 0.5 GM PO (21:44)
[2018-10-12] MEDS: traZODone 50 MG Tablet PO (21:44)
[2018-10-12] MEDS: Ascorbic Acid 500 MG Tablet 1000 MG PO (21:44)
[2018-10-12] MEDS: Ibuprofen 600 MG Tablet PO (23:39)
[2018-10-13] MEDS: Acetaminophen 325 MG Tablet 650 MG PO ×2 (01:07→20:55)
[2018-10-13] MEDS: Ondansetron ODT 4 MG Tablet PO ×2 (01:07→08:55)
[2018-10-13 02:21] VITALS: BP 122/74; PULSE 74; RESP 16; TEMP 38.2; O2SAT 94
[2018-10-13] MEDS: oxyCODONE 5 MG Tablet PO ×3 (03:24→17:26)
[2018-10-13] MEDS: 0.9% NaCl Peripheral Flush Adult/Peds IV (03:25)
[2018-10-13] MEDS: Baclofen 10 MG Tablet 40 MG PO ×3 (06:50→17:22)
[2018-10-13] MEDS: Levothyroxine 75 MCG Tablet PO (06:51)
[2018-10-13] MEDS: Ibuprofen 600 MG Tablet PO (06:51)
[2018-10-13 07:00] VITALS: TEMP 36.4
--- NOTE | 2018-10-13 08:11 | PCM.PROGNOTE ---
Subjective: Feeling more uncomfortable today. Complains the catheter is bothering her. Tolerating PO well. States had BM and is passing flatus. No N/V. Objective: Tm100.8 at 2 am today otherwise afebrile - Physical Exam General: Alert, Oriented x3, Cooperative, No apparent distress Lungs: Clear to auscultation, Normal air movement Cardiovascular: Regular rate, Regular Rhythm Abdomen: Soft, Non Tender, Non-Distended, - - Incision appears intact without erythema. Nithya were removed today and replaced with steri strips. Very small amount or serous drainage at umbilicus. Extremities: No edema Skin: - - Bruising present left lower abdomen. Psych/Mental Status: Normal Affect Comment: No vaginal bleeding. Vital Signs Temp Pulse Resp BP Pulse Ox 97.5 F L 74 16 122/74 H 94 10/13/18 07:00 10/13/18 02:21 10/13/18 02:21 10/13/18 02:21 10/13/18 02:21 Oxygen Flow Rate (L/min) 2 Oxygen Delivery Method Nasal Cannula Weight: 208 lb 1.862 oz Body Mass Index (BMI) 39.3 Intake and Output for Last 24 Hours 10/11/18 10/12/18 10/13/18 23:59 23:59 23:59 Intake Total 5685.2 / 5685.2 3552.6 / 3552.6 2307.3 / 2307.3 Output Total 2350 / 2350 2500 / 2500 2850 / 2850 Balance 3335.2 / 3335.2 1052.6 / 1052.6 -542.7 / -542.7 Microbiology Past 72 Hours 10/10/18 00:27 Urine Culture - Final Urine Catheter - Mccarthy Pseudomonas aeroginosa Enterococcus faecalis 10/11/18 08:00 Gram Stain - Final Wound Drainage - Aerobic & Anaerobic Swabs Wound Culture - Preliminary Staphylococcus aureus 10/09/18 23:20 Blood Culture - Preliminary Blood Culture (Wb) - Anticubital Left No growth in 48 hours. 10/09/18 21:35 Blood Culture - Preliminary Blood Culture (Wb) - Anticubital Left No growth in 48 hours. Medical Necessity - Tobacco Use Smoking Status: Never smoker Assessment/Plan All Active Problems (Last Updated 08/23/18 @ 11:29 by Elisa Vasquez) Encephalopathy acute (Acute) Leukocytosis (Acute) Fever (Acute) Iatrogenic enterotomy (Acute) Pre-operative cardiovascular exam, new EKG abnormalities c/w ischemia (Acute) Abnormal EKG (Acute) Open wound of knee with complication (Acute) Open wound of left thigh (Acute) Pneumonia (Acute) Paronychia of toe of left foot (Acute) Lethargy (Acute) Altered mental status (Acute) Cocaine abuse (Resolved) DVT (deep venous thrombosis) (Resolved) HCAP (healthcare-associated pneumonia) (Resolved) Heroin use (Resolved) Admitted for postoperative fever. Was afebrile until last night with one temp of 100.8. No further fevers. WBC checked again today. Urine culture results with Pseudomonas and enterococcus which has been treated with piperacillin. Wound culture with lei mueller but may have been skin contaminant. Will add Bactrim to regimen. Jenera were removed today without difficulty and incision appears intact without erythema. Given fever last night will not discharge at this time. Will continue antibiotics and reassess tomorrow. Will consult with Dr. Choi regarding suprapubic catheter discomfort as was due for monthly replacement last week.
[2018-10-13 08:21] LABS: Absolute Lymphocyte Count 2.15 X10^3/ul (0.83-4.51); Absolute Neutrophil Count 7.2 X10^3/uL (2.0-7.7); Basophil# 0.02 X10^3/uL; Basophil% 0.2 % (0-1); Eosinophil# 0.14 X10^3/uL; Eosinophils% 1.4 % (0-5); Hematocrit 24.5 % (37-47); Hemoglobin 7.5 g/dl (12.0-15.0); Lymphocyte # 2.15 X10^3/ul (4.0); Lymphocyte % 20.9 % (19-41); Mean Corp Hgb Conc 30.6 g/gl (32-36); Mean Corpuscular Volume 78.3 fL (81-99); Mean Platelet Vol. 8.2 fl (6.2-12.0); Monocyte# 0.65 X10^3/uL; Monocyte% 6.3 % (0-10); Neutrophil % 69.9 % (47-70); POSITIVE COUNT NO; POSITIVE DIFFERENTIAL NO; POSITIVE MORPHOLOGY NO; Platelet Count 413 K/mm3 (150-450); RBC Distribution Width CV 17.6 % (11.6-14.6); Red Blood Count 3.13 M/mm3 (4.2-5.4); White Blood Count 10.3 K/mm3 (4.4-11.0)
[2018-10-13 08:42] VITALS: BP 117/57; PULSE 85; RESP 16; TEMP 36.9; O2SAT 94
[2018-10-13] MEDS: Gabapentin 400 MG Capsule 1600 MG PO ×3 (08:45→21:05)
[2018-10-13] MEDS: Lactated Ringers 1,000 ML 125 ML IV ×2 (08:45→17:22)
[2018-10-13] MEDS: Enoxaparin 40 MG/0.4 ML Syringe SC (08:47)
[2018-10-13] MEDS: Linacolotide 145 MCG CAPSULE 290 MCG PO (08:48)
[2018-10-13] MEDS: Furosemide 40 MG Tablet PO (08:48)
[2018-10-13] MEDS: DULoxetine Hcl 60 MG Capsule 120 MG PO (08:49)
[2018-10-13 08:56] VITALS: PULSE 80
[2018-10-13 09:28] LABS: Pathologist Review Reviewed
--- NOTE | 2018-10-13 09:54 | CASEMGMT ---
As per Dr. Siu' note, pt is not ready today. SW faxed clinicals to [facility], will continue to follow. MEGHANN Swann
[2018-10-13] MEDS: Tolterodine Tartrate 4 MG CAP.SA PO (12:48)
[2018-10-13] MEDS: Pantoprazole Sodium 20 MG Tablet PO (12:49)
[2018-10-13 16:03] VITALS: BP 142/69; PULSE 72; RESP 16; TEMP 36.9; O2SAT 92
[2018-10-13 20:17] VITALS: BP 113/72; PULSE 71; RESP 16; TEMP 36.7; O2SAT 96
[2018-10-13] MEDS: Ascorbic Acid 500 MG Tablet 1000 MG PO (21:06)
[2018-10-13] MEDS: traZODone 50 MG Tablet PO (21:06)
[2018-10-13] MEDS: METHENAMINE HIPPURATE 1 GM TABLET 0.5 GM PO (21:07)
[2018-10-14] MEDS: Baclofen 10 MG Tablet 40 MG PO ×4 (01:48→18:02)
[2018-10-14] MEDS: Lactated Ringers 1,000 ML 125 ML IV ×2 (01:49→10:08)
[2018-10-14 02:04] VITALS: BP 127/79; PULSE 77; RESP 16; TEMP 36.7; O2SAT 95
[2018-10-14] MEDS: oxyCODONE 5 MG Tablet PO ×3 (02:10→18:02)
[2018-10-14] MEDS: Acetaminophen 325 MG Tablet 650 MG PO ×2 (06:42→15:50)
[2018-10-14] MEDS: Gabapentin 400 MG Capsule 1600 MG PO ×3 (06:43→22:22)
[2018-10-14] MEDS: Levothyroxine 75 MCG Tablet PO (06:44)
--- NOTE | 2018-10-14 08:25 | PCM.PROGNOTE ---
Subjective: Feels well this morning. Suprapubic catheter seems to be leaking. Tolerating PO. Passing flatus and having BMs. Objective: Afeb VSS WBC normal yesterday. Hgb stable - Physical Exam General: Alert, Oriented x3, Cooperative, No apparent distress Lungs: Clear to auscultation, Normal air movement Cardiovascular: Regular rate, Regular Rhythm Abdomen: Soft, Non Tender, Non-Distended, - - Incision intact. No erythema or significant drainage Psych/Mental Status: Normal Affect Comment: No vaginal bleeding Vital Signs Temp Pulse Resp BP Pulse Ox 98.0 F 77 16 127/79 H 95 10/14/18 02:04 10/14/18 02:04 10/14/18 02:04 10/14/18 02:04 10/14/18 02:04 Oxygen Flow Rate (L/min) 2 Oxygen Delivery Method Nasal Cannula Weight: 208 lb 1.862 oz Body Mass Index (BMI) 39.3 Intake and Output for Last 24 Hours 10/12/18 10/13/18 10/14/18 23:59 23:59 23:59 Intake Total 3552.6 / 3552.6 4626.3 / 4626.3 2852 / 2852 Output Total 2500 / 2500 5050 / 5050 3350 / 3350 Balance 1052.6 / 1052.6 -423.7 / -423.7 -498 / -498 Microbiology Past 72 Hours 10/11/18 08:00 Gram Stain - Final Wound Drainage - Aerobic & Anaerobic Swabs Wound Culture - Final Meth. resistant Staph. aureus Enterococcus faecalis Anaerobic Culture - Preliminary Checking for anaerobes, further studies to follow. 10/10/18 00:27 Urine Culture - Final Urine Catheter - Mccarthy Pseudomonas aeroginosa Enterococcus faecalis 10/09/18 23:20 Blood Culture - Preliminary Blood Culture (Wb) - Anticubital Left No growth in 48 hours. 10/09/18 21:35 Blood Culture - Preliminary Blood Culture (Wb) - Anticubital Left No growth in 48 hours. Laboratory Tests Past 24 Hrs 10/12/18 05:40 Diff Path Review Reviewed Medical Necessity - Tobacco Use Smoking Status: Never smoker Assessment/Plan All Active Problems (Last Updated 08/23/18 @ 11:29 by Elisa Vasquez) Encephalopathy acute (Acute) Leukocytosis (Acute) Fever (Acute) Iatrogenic enterotomy (Acute) Pre-operative cardiovascular exam, new EKG abnormalities c/w ischemia (Acute) Abnormal EKG (Acute) Open wound of knee with complication (Acute) Open wound of left thigh (Acute) Pneumonia (Acute) Paronychia of toe of left foot (Acute) Lethargy (Acute) Altered mental status (Acute) Cocaine abuse (Resolved) DVT (deep venous thrombosis) (Resolved) HCAP (healthcare-associated pneumonia) (Resolved) Heroin use (Resolved) Doing well with no fevers and normal WBC yesterday. Will stop zosyn. Will add PO doxycycline after skin/wound culture from umbilical site grew MRSA. There is no evidence of significant infection and culture may be skin eligio. Dr. Rodriguez will see patient today and possibly change suprapubic catheter. If is stable could consider discharge this afternoon or tomorrow. Continue to watch fever profile.
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
[2018-10-14 09:30] VITALS: O2SAT 94
--- NOTE | 2018-10-14 10:01 | CASEMGMT ---
Addendum entered by Debra Rodrigues 10/14/18 14:33: Pt is not discharging today. MAIKEL placed a call to Lauren at [facility] and left her a message informing her that pt is not discharging today, likely D/C tomorrow. Original Note: Social Work Note SW faxed updated clinicals to [facility]. Green sheet and transportation form on pt's chart. Plan: Return to [facility] once medically cleared Debra Rodrigues ENGINE WIPER, NEUROLOGIST
[2018-10-14 10:16] VITALS: BP 123/58; PULSE 65; RESP 16; TEMP 36.7; O2SAT 97
[2018-10-14] MEDS: Furosemide 40 MG Tablet PO (10:22)
[2018-10-14] MEDS: Enoxaparin 40 MG/0.4 ML Syringe SC (10:23)
[2018-10-14] MEDS: Doxycycline 100 MG CAPSULE PO ×2 (10:24→22:28)
[2018-10-14] MEDS: DULoxetine Hcl 60 MG Capsule 120 MG PO (10:36)
--- NOTE | 2018-10-14 12:22 | PCM.DC ---
- Discharge Diagnoses Reason(s) for Visit for Discharge Instructions: Post operative fever, urinary tract infection You will use the following diet at home:: No restrictions Your food should be the consistency of: Regular Your liquids should be the consistency of: Regular/Thin Discharge Activity: Return to Normal Activity Call your doctor if your incision/area has: Sudden Increased Bleeding, Increased Pain/ Swelling, Increased Redness, Foul Smelling Discharge, Swelling at the incision site Call your doctor if you observe: Fever of 101 or Higher, Change in Color, Inability to have a bowel movement, Shortness of breath, Chest pain, Calf discomfort, Uncontrolled pain Change Dressing in (Days):: 1 - change abdominal dressing three times daily or if becomes wet Cleanse incision/area with: Soap & Water, Keep Dressing Clean & Dry, - - May cleanse area with routine sanitary wipes Catheter: - - suprapubic catheter to S/D Additional Dressing/Incision Instructions:: Apply Bactroban (mupirocin ointment ) three times daily to umbilical portion of incision Additional Instructions: change steri strips daily Allergies/Adverse Reactions: Allergies apixaban [From Eliquis] Allergy (Verified 10/09/18 21:32) Rash coconut oil Allergy (Verified 10/09/18 21:32) cant breath mometasone furoate [From Elocon] Allergy (Verified 10/09/18 21:32) Rash morphine Allergy (Verified 10/09/18 21:32) Rash rivaroxaban [From Xarelto] Allergy (Verified 10/09/18 21:32) Rash Sulfa (Sulfonamide Antibiotics) Allergy (Verified 10/09/18 21:32) Shortness of breath Medications to take at Discharge Levothyroxine [Synthroid] 75 mcg PO DAILY 05/28/15 Duloxetine HCl 120 mg PO DAILY 08/21/15 Hydrocodone/Acetaminophen [[place] 5-325 Tablet] 1 ea PO Q4H PRN 06/17/16 Baclofen [Lioresal] 40 mg PO Q6H 08/16/16 Gabapentin [Neurontin] 1,600 mg PO TIDCM 08/16/16 Acetaminophen [Tylenol] 650 mg PO Q4H PRN PRN 03/01/18 Bisacodyl 10 mg UT PRN PRN 03/01/18 Cholecalciferol (Vitamin D3) [Vitamin D3] 5,000 unit PO DAILY 03/01/18 Guaifenesin [Robitussin] 10 ml PO Q4H PRN PRN 03/01/18 Lactobacillus Rhamnosus GG [Culturelle] 1 ea PO DAILY 03/01/18 Linaclotide [Linzess] 290 mcg PO DAILY 03/01/18 Methenamine Hippurate 0.5 gm PO QHS 03/01/18 Omeprazole 20 mg PO LUNCH 03/01/18 Trazodone HCl 50 mg PO QHS 03/01/18 Furosemide [Lasix] 40 mg PO DAILY 05/26/18 Oxybutynin Chloride [Ditropan Xl] 20 mg PO LUNCH 08/16/18 Polyethylene Glycol 3350 [Miralax] 17 gm PO QHS 08/16/18 Sennosides [Senna] 17.2 mg PO BID 08/16/18 Trimethoprim 100 mg PO DAILY 08/16/18 Citric AC/Gluconolact/Mag Carb [Renacidin Irrigation Solution] 30 ml INTRA-UTER QHS 08/27/18 Ascorbic Acid [C-1000] 1,000 mg PO QHS 10/09/18 Oxycodone Myristate [Xtampza ER] 9 mg PO BID 10/09/18 Ibuprofen [Motrin] 600 mg PO Q6H PRN PRN #30 tab 10/13/18 Nystatin Powder [Mycostatin Powder] 1 applic TOPICAL BID PRN bottle 10/13/18 Ondansetron [Zofran Odt] 4 mg PO Q4H PRN PRN tablet 10/13/18 Oxycodone [Oxyir] 5 mg PO Q6H PRN PRN 7 Days #30 tab 10/13/18 Tolterodine Tartrate [Detrol LA] 4 mg PO LUNCH cap.sa 10/13/18 Amox/Clavulanate Tablet [Augmentin Tablet] 500 mg PO Q8 #21 tab 10/14/18 Doxycycline 100 mg PO BID #20 cap 10/14/18 Mupirocin [Bactroban] 1 applic TOPICAL TID 10 Days #1 tube 10/14/18 The following prescriptions were given: Ibuprofen [Motrin] 600 mg PO Q6H PRN PRN #30 tab PRN Reason: Mild Pain (1-3/10) Oxycodone [Oxyir] 5 mg PO Q6H PRN PRN 7 Days #30 tab PRN Reason: Severe Pain (6-03/23) Amox/Clavulanate Tablet [Augmentin Tablet] 500 mg PO Q8 #21 tab Doxycycline 100 mg PO BID #20 cap Mupirocin [Bactroban] 1 applic TOPICAL TID 10 Days #1 tube Primary Care Physician: Lavon Vicente MD [Primary Care Provider] - Test Results: Test results from this visit will be discussed in further detail at your follow-up appointment, if applicable. Please Follow Up With: Renzo Siu MD - When comes for post op visit please have come on gurney/flat When: one week Proposed Discharge Date: 10/15/18
--- NOTE | 2018-10-14 12:26 | DCINST_ITS ---
- Discharge Diagnoses Reason(s) for Visit for Discharge Instructions: Post operative fever, urinary tract infection You will use the following diet at home:: No restrictions Your food should be the consistency of: Regular Your liquids should be the consistency of: Regular/Thin Discharge Activity: Return to Normal Activity Call your doctor if your incision/area has: Sudden Increased Bleeding, Increased Pain/ Swelling, Increased Redness, Foul Smelling Discharge, Swelling at the incision site Call your doctor if you observe: Fever of 101 or Higher, Change in Color, Inability to have a bowel movement, Shortness of breath, Chest pain, Calf discomfort, Uncontrolled pain Change Dressing in (Days):: 1 - change abdominal dressing three times daily or if becomes wet Cleanse incision/area with: Soap & Water, Keep Dressing Clean & Dry, - - May cleanse area with routine sanitary wipes Catheter: - - suprapubic catheter to S/D Additional Dressing/Incision Instructions:: Apply Bactroban (mupirocin ointment ) three times daily to umbilical portion of incision Additional Instructions: change steri strips daily Allergies/Adverse Reactions: Allergies apixaban [From Eliquis] Allergy (Verified 10/09/18 21:32) Rash coconut oil Allergy (Verified 10/09/18 21:32) cant breath mometasone furoate [From Elocon] Allergy (Verified 10/09/18 21:32) Rash morphine Allergy (Verified 10/09/18 21:32) Rash rivaroxaban [From Xarelto] Allergy (Verified 10/09/18 21:32) Rash Sulfa (Sulfonamide Antibiotics) Allergy (Verified 10/09/18 21:32) Shortness of breath Medications to take at Discharge Levothyroxine [Synthroid] 75 mcg PO DAILY 05/28/15 Duloxetine HCl 120 mg PO DAILY 08/21/15 Hydrocodone/Acetaminophen [[place] 5-325 Tablet] 1 ea PO Q4H PRN 06/17/16 Baclofen [Lioresal] 40 mg PO Q6H 08/16/16 Gabapentin [Neurontin] 1,600 mg PO TIDCM 08/16/16 Acetaminophen [Tylenol] 650 mg PO Q4H PRN PRN 03/01/18 Bisacodyl 10 mg ME PRN PRN 03/01/18 Cholecalciferol (Vitamin D3) [Vitamin D3] 5,000 unit PO DAILY 03/01/18 Guaifenesin [Robitussin] 10 ml PO Q4H PRN PRN 03/01/18 Lactobacillus Rhamnosus GG [Culturelle] 1 ea PO DAILY 03/01/18 Linaclotide [Linzess] 290 mcg PO DAILY 03/01/18 Methenamine Hippurate 0.5 gm PO QHS 03/01/18 Omeprazole 20 mg PO LUNCH 03/01/18 Trazodone HCl 50 mg PO QHS 03/01/18 Furosemide [Lasix] 40 mg PO DAILY 05/26/18 Oxybutynin Chloride [Ditropan Xl] 20 mg PO LUNCH 08/16/18 Polyethylene Glycol 3350 [Miralax] 17 gm PO QHS 08/16/18 Sennosides [Senna] 17.2 mg PO BID 08/16/18 Trimethoprim 100 mg PO DAILY 08/16/18 Citric AC/Gluconolact/Mag Carb [Renacidin Irrigation Solution] 30 ml INTRA-UTER QHS 08/27/18 Ascorbic Acid [C-1000] 1,000 mg PO QHS 10/09/18 Oxycodone Myristate [Xtampza ER] 9 mg PO BID 10/09/18 Ibuprofen [Motrin] 600 mg PO Q6H PRN PRN #30 tab 10/13/18 Nystatin Powder [Mycostatin Powder] 1 applic TOPICAL BID PRN bottle 10/13/18 Ondansetron [Zofran Odt] 4 mg PO Q4H PRN PRN tablet 10/13/18 Oxycodone [Oxyir] 5 mg PO Q6H PRN PRN 7 Days #30 tab 10/13/18 Tolterodine Tartrate [Detrol LA] 4 mg PO LUNCH cap.sa 10/13/18 Amox/Clavulanate Tablet [Augmentin Tablet] 500 mg PO Q8 #21 tab 10/14/18 Doxycycline 100 mg PO BID #20 cap 10/14/18 Mupirocin [Bactroban] 1 applic TOPICAL TID 10 Days #1 tube 10/14/18 The following prescriptions were given: Ibuprofen [Motrin] 600 mg PO Q6H PRN PRN #30 tab PRN Reason: Mild Pain (1-3/10) Oxycodone [Oxyir] 5 mg PO Q6H PRN PRN 7 Days #30 tab PRN Reason: Severe Pain (6-03/23) Amox/Clavulanate Tablet [Augmentin Tablet] 500 mg PO Q8 #21 tab Doxycycline 100 mg PO BID #20 cap Mupirocin [Bactroban] 1 applic TOPICAL TID 10 Days #1 tube Primary Care Physician: Lavon Vicente MD [Primary Care Provider] - Test Results: Test results from this visit will be discussed in further detail at your follow- up appointment, if applicable. Please Follow Up With: Renzo Siu MD - When comes for post op visit please have come on gurney/flat When: one week Proposed Discharge Date: 10/15/18
[2018-10-14] MEDS: Amox/Clavulanate 500 MG Tablet PO ×2 (13:56→18:03)
[2018-10-14] MEDS: Tolterodine Tartrate 4 MG CAP.SA PO (13:57)
[2018-10-14] MEDS: Pantoprazole Sodium 20 MG Tablet PO (13:58)
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
[2018-10-14] MEDS: Lidocaine Jelly 2% 20 ML Syringe (URO-JET) 20 APPLIC TOPICAL (16:40)
[2018-10-14 18:35] VITALS: BP 98/67; PULSE 95; RESP 18; TEMP 36.6; O2SAT 97
[2018-10-14 21:27] VITALS: BP 125/90; PULSE 78; RESP 18; TEMP 36.9; O2SAT 99
[2018-10-14] MEDS: Ibuprofen 600 MG Tablet PO (21:29)
[2018-10-14] MEDS: Senna Tablet 2 TABLET PO (22:22)
[2018-10-14] MEDS: traZODone 50 MG Tablet PO (22:22)
[2018-10-14] MEDS: Ascorbic Acid 500 MG Tablet 1000 MG PO (22:23)
[2018-10-14] MEDS: Nystatin Powder 15gm Bottle 1 APPLIC TOPICAL (22:25)
[2018-10-14] MEDS: METHENAMINE HIPPURATE 1 GM TABLET 0.5 GM PO (22:28)
[2018-10-15] MEDS: oxyCODONE 5 MG Tablet PO (00:30)
[2018-10-15] MEDS: Baclofen 10 MG Tablet 40 MG PO ×2 (00:30→06:56)
[2018-10-15 02:50] VITALS: BP 109/67; PULSE 74; RESP 16; TEMP 36.8; O2SAT 98
[2018-10-15] MEDS: Levothyroxine 75 MCG Tablet PO (06:56)
[2018-10-15] MEDS: Gabapentin 400 MG Capsule 1600 MG PO (06:56)
[2018-10-15 07:35] VITALS: O2SAT 98
[2018-10-15] MEDS: Amox/Clavulanate 500 MG Tablet PO (08:22)
[2018-10-15 08:23] VITALS: BP 113/73; PULSE 71; RESP 16; TEMP 36.6; O2SAT 96
[2018-10-15 08:25] VITALS: PULSE 80; O2SAT 96
--- NOTE | 2018-10-15 09:19 | PCM.PROGNOTE ---
Patient Problems: Active and Suspected Problems (Last Reviewed 10/14/18 @ 16:33 by Jocelin Rodriguez MD) Neurogenic bladder (Acute) Urinary retention (Acute) Subjective: Appears well today. Tolerating PO well. Passing flatus. No N/V. Pain well managed. No fevers/chills. Objective: Afeb VSS - Physical Exam General: Alert, Oriented x3, Cooperative, No apparent distress Abdomen: Soft, Non Tender, Non-Distended, - - Incision with no erythema--some serous drainage from upper portion of incision but no significant areas of separation Psych/Mental Status: Normal Affect Comment: No vaginal bleeding Vital Signs Temp Pulse Resp BP Pulse Ox 97.9 F 71 16 113/73 96 10/15/18 08:23 10/15/18 08:23 10/15/18 08:23 10/15/18 08:23 10/15/18 08:23 Oxygen Flow Rate (L/min) 1 Oxygen Delivery Method Nasal Cannula Weight: 208 lb 1.862 oz Body Mass Index (BMI) 39.3 Intake and Output for Last 24 Hours 10/13/18 10/14/18 10/15/18 23:59 23:59 23:59 Intake Total 4626.3 / 4626.3 4754 / 4754 1320 / 1320 Output Total 5050 / 5050 7500 / 7500 4000 / 4000 Balance -423.7 / -423.7 -2746 / -2746 -2680 / -2680 Microbiology Past 72 Hours 10/09/18 23:20 Blood Culture - Final Blood Culture (Wb) - Anticubital Left No growth in 5 days. 10/09/18 21:35 Blood Culture - Final Blood Culture (Wb) - Anticubital Left No growth in 5 days. 10/11/18 08:00 Gram Stain - Final Wound Drainage - Aerobic & Anaerobic Swabs Wound Culture - Final Meth. resistant Staph. aureus Enterococcus faecalis Anaerobic Culture - Preliminary Checking for anaerobes, further studies to follow. 10/10/18 00:27 Urine Culture - Final Urine Catheter - [place] Pseudomonas aeroginosa Enterococcus faecalis Medical Necessity - Tobacco Use Smoking Status: Never smoker Assessment/Plan All Active Problems (Last Reviewed 10/14/18 @ 16:33 by Jocelin Rodriguez MD) Encephalopathy acute (Acute) Leukocytosis (Acute) Fever (Acute) Iatrogenic enterotomy (Acute) Neurogenic bladder (Acute) Urinary retention (Acute) Pre-operative cardiovascular exam, new EKG abnormalities c/w ischemia (Acute) Abnormal EKG (Acute) Open wound of knee with complication (Acute) Open wound of left thigh (Acute) Pneumonia (Acute) Paronychia of toe of left foot (Acute) Lethargy (Acute) Altered mental status (Acute) Cocaine abuse (Resolved) DVT (deep venous thrombosis) (Resolved) HCAP (healthcare-associated pneumonia) (Resolved) Heroin use (Resolved) Doing well on HD#6. Suprapubic catheter was replaced yesterday by Dr. Rodriguez. She remains afebrile. Will discharge to her nursing facility. Instructions given. Will continue PO antibiotics for 7-10 days. Followup in my office in one week.
[2018-10-15] MEDS: DULoxetine Hcl 60 MG Capsule 120 MG PO (10:15)
[2018-10-15] MEDS: Linacolotide 145 MCG CAPSULE 290 MCG PO (10:15)
[2018-10-15] MEDS: Senna Tablet 2 TABLET PO (10:15)
[2018-10-15] MEDS: Doxycycline 100 MG CAPSULE PO (10:15)
[2018-10-15] MEDS: Furosemide 40 MG Tablet PO (10:15)
[2018-10-15] MEDS: Enoxaparin 40 MG/0.4 ML Syringe SC (10:16)
[2018-10-15 10:23] VITALS: BP 98/58; PULSE 80; RESP 18; TEMP 36.7; O2SAT 93
== END 2018-10-15 11:04 | disposition skilled nursing facility (03) | DRG 698 ==
LOC: ED 10-10 00:21 → MS2 10-10 00:59 → MS3 10-13 17:49
PROVIDERS: Admitting Provider Obstetrics & Gynecology; Emergency Provider Emergency Medicine; Family Provider Family Medicine; PCP Family Medicine; Visit Provider Obstetrics & Gynecology
DX: T83.518A Infection and inflammatory reaction due to other urinary catheter, initial encounter (principal); G82.50 Quadriplegia, unspecified; N39.0 Urinary tract infection, site not specified; E03.9 Hypothyroidism, unspecified; E66.01 Morbid (severe) obesity due to excess calories; Z68.39 Body mass index [BMI] 39.0-39.9, adult; S14.107S Unspecified injury at C7 level of cervical spinal cord, sequela; W16.42XS Fall into unspecified water causing other injury, sequela
CPT/HCPCS: 36415; 71045; 74177; 80048; 81001; 83605; 85025; 87040; 87070; 87075; 87077; 87086; 87088; 87184; 87186; 87205; 97802; 99285; J7030; J7040; J7120; Q9967; A4216

== ENCOUNTER 2019-03-16 12:04 | Day surgery (SDC) | payer MEDICARE, MEDICAID, SELFPAY ==
[2018-10-10 02:04] VITALS: BMI 39.3
[2019-03-16 12:40] VITALS: BP 115/74; PULSE 85; RESP 16; TEMP 36.6; O2SAT 93; BMI 38.1
[2019-03-16] MEDS: Lactated Ringers 1,000 ML 30 ML IV (13:25)
--- NOTE | 2019-03-16 15:30 | RAD_ITS ---
STUDY: X-RAY - LUMBAR SPINE REASON FOR EXAM: Female, 44 years old. Lumbar block TECHNIQUE: 1 view(s) of the lumbar spine were obtained. COMPARISON: None FINDINGS: Single fluoroscopic view of the lumbar spine submitted for documentation purposes. Localization examination. RAD/Spine 1 View Any Level IMPRESSION: Single fluoroscopic view of the lumbar spine for localization. Electronically Signed: Brendon Nguyen, at 16:06 EDT Tel , Service support ,
[2019-03-16] MEDS: Triamcinolone Acetonide 40 MG/ML Vial (15:39)
[2019-03-16 15:48] VITALS: BP 115/74; BP 87/63; PULSE 86; RESP 14; TEMP 36.3; O2SAT 95
[2019-03-16 15:55] VITALS: BP 115/74; BP 91/61; PULSE 75; RESP 16; O2SAT 94
[2019-03-16 16:00] VITALS: BP 115/74; BP 93/61; PULSE 82; RESP 16; O2SAT 91
[2019-03-16 16:05] VITALS: BP 115/74; BP 96/66; PULSE 81; RESP 16; TEMP 36.2; O2SAT 94
[2019-03-16 16:27] VITALS: BP 115/74
== END 2019-03-16 16:52 | disposition skilled nursing facility (03) ==
LOC: SDC 12:05 → AC 12:07
PROVIDERS: Family Provider Family Medicine; PCP Family Medicine; Referring Provider Anesthesiology Pain Medicine; Visit Provider Anesthesiology Pain Medicine
PROC: 3E0S3BZ Introduction of Anesthetic Agent into Epidural Space, Percutaneous Approach (ICD-10-PCS; CPT 62322; principal; 2019-03-16 13:25)
DX: M51.16 Intervertebral disc disorders with radiculopathy, lumbar region (principal); M51.17 Intervertebral disc disorders with radiculopathy, lumbosacral region; G62.9 Polyneuropathy, unspecified; G82.50 Quadriplegia, unspecified; Z79.899 Other long term (current) drug therapy; Z79.891 Long term (current) use of opiate analgesic; K21.9 Gastro-esophageal reflux disease without esophagitis; Z86.718 Personal history of other venous thrombosis and embolism; N31.9 Neuromuscular dysfunction of bladder, unspecified; F41.9 Anxiety disorder, unspecified; I45.6 Pre-excitation syndrome; G47.30 Sleep apnea, unspecified; F12.21 Cannabis dependence, in remission; F11.11 Opioid abuse, in remission
CPT/HCPCS: 64483; 72020; J7120

== ENCOUNTER → 2019-06-20 08:01 | Outpatient (CLI) | payer MEDICARE, MEDICAID, SELFPAY ==
--- NOTE | 2019-06-20 08:04 | CT_ITS ---
STUDY: CT ABDOMEN AND PELVIS WITH CONTRAST REASON FOR EXAM: Female, 44 years old. 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 Oral and amp; IV Readi-CAT and amp; 100mL Isovue-300 was administered. Sagittal and coronal images were reconstructed. Individualized dose optimization techniques were used for this CT. COMPARISON: Comparison is made with prior study dated January 24, 2010. FINDINGS: Mild increased linear markings at the lung bases suggestive of bibasilar atelectasis. The visualized portions of the heart are within normal limits. Normal liver. Normal gallbladder and extrahepatic biliary system. Normal spleen. Normal pancreas. Normal bilateral adrenal glands. Normal right kidney. Normal left kidney. Normal visualized stomach. Normal small intestine. Normal colon. The appendix is visualized and appears normal. Normal abdominal aorta. Normal inferior vena cava. Normal retroperitoneum. Contracted small capacity urinary bladder with the bladder wall thickening. A catheter is seen within. There is a 4.3 cm x 3.2 cm cyst in the left ovary. Normal abdominal wall. Known spina bifida. I suspect a 4.7 cm x 6.6 cm soft tissue density in the region of the perineum extending into the overlying skin most likely represent an decubitus ulceration. Deformity of the right femoral head most likely secondary to avascular necrosis. There is evidence of a screw in compressive sideplate device in the left femur. CT/Abdomen/Pelvis WITH Contrast IMPRESSION: Left ovarian cyst. Small capacity urinary bladder. A Mccarthy catheter seen within it. Deformity of the right femoral head. Electronically Signed: Roosevelt Galvez at 9:30 EST , Service support ,
== END ==
PROVIDERS: Family Provider Family Medicine; PCP Family Medicine
DX: R10.9 Unspecified abdominal pain (principal); K59.00 Constipation, unspecified
CPT/HCPCS: 74177; Q9967

== ENCOUNTER 2019-08-09 15:21 | Day surgery (SDC) | payer MEDICARE, MEDICAID, SELFPAY ==
[2019-08-09] VITALS (10 sets, daily range): BP systolic 85–118; BP diastolic 52–76; PULSE 76–87; RESP 16–18; TEMP 36.4–36.7; O2SAT 93–99; BMI 38.7
[2019-08-09] MEDS: Lactated Ringers 1,000 ML 100 ML IV (16:19)
--- NOTE | 2019-08-09 16:45 | RAD_ITS ---
STUDY: X-RAY - LUMBAR SPINE REASON FOR EXAM: Female, 44 years old. BLOCK, LUMBAR, L5-S1 -- 9.6 SEC TECHNIQUE: 9.6 seconds of fluoroscopy was utilized and 2 C-arm images were performed. COMPARISON: None FINDINGS: An epidural injection with a small amount of contrast material was performed by Dr. Hammond, and films and imaging were completed to Dr. Hammond satisfaction. RAD/Spine 1 View Any Level IMPRESSION: An epidural injection was performed under the direction of Dr. Hammond and completed to Dr. Conklin''s satisfaction Electronically Signed: Brant Curiel, at 14:41 EST Tel , Service support ,
[2019-08-09] MEDS: Triamcinolone Acetonide 40 MG/ML Vial (17:17)
== END 2019-08-09 18:42 | disposition skilled nursing facility (03) ==
LOC: SDC 15:22 → AC 15:23
PROVIDERS: PCP Family Medicine; Referring Provider Anesthesiology Pain Medicine; Visit Provider Anesthesiology Pain Medicine
PROC: 3E0S3BZ Introduction of Anesthetic Agent into Epidural Space, Percutaneous Approach (ICD-10-PCS; CPT 62322; principal; 2019-08-09 16:40)
DX: M51.16 Intervertebral disc disorders with radiculopathy, lumbar region (principal); G20 Parkinson's disease; G82.50 Quadriplegia, unspecified; G62.9 Polyneuropathy, unspecified
CPT/HCPCS: 62323; 64483; 72020; J7120

== ENCOUNTER → 2019-10-18 15:13 | Outpatient (CLI) | payer MEDICARE, MEDICAID, SELFPAY ==
[2019-08-09 16:01] VITALS: BMI 38.7
== END ==
PROVIDERS: PCP Family Medicine; Visit Provider Family Medicine
DX: J98.8 Other specified respiratory disorders (principal)
CPT/HCPCS: 87635; U0004

== ENCOUNTER 2020-01-19 11:44 | Day surgery (SDC) | payer MEDICARE, MEDICAID, SELFPAY ==
[2019-08-09 16:01] VITALS: BMI 38.7
[2020-01-19] VITALS (9 sets, daily range): BP systolic 97–139; BP diastolic 62–82; PULSE 72–80; RESP 12–16; TEMP 36.4–36.8; O2SAT 94–96; BMI 40.6
[2020-01-19] MEDS: Lactated Ringers 1,000 ML 100 ML IV (12:13)
--- NOTE | 2020-01-19 12:59 | RAD_ITS ---
STUDY: X-RAY - LUMBAR SPINE REASON FOR EXAM: Female, 45 years old. LUMBAR EPIDURAL L5-S1 -- 21.3 SECONDS, 9.08 MGY TECHNIQUE: Single coned-down view(s) of the lumbar spine were obtained. COMPARISON: None FINDINGS: A spinal needle is seen overlying the L4-L5 level. Contrast is seen. RAD/Spine 1 View Any Level IMPRESSION: Spinal needle is at the L4-L5 level. Electronically Signed: Roosevelt Galvez, at 13:45 EDT , Service support ,
[2020-01-19] MEDS: Triamcinolone Acetonide 40 MG/ML Vial (13:10)
== END 2020-01-19 14:33 ==
LOC: SDC 11:45
PROVIDERS: PCP Family Medicine; Referring Provider Anesthesiology Pain Medicine; Visit Provider Anesthesiology Pain Medicine
PROC: 3E0S3BZ Introduction of Anesthetic Agent into Epidural Space, Percutaneous Approach (ICD-10-PCS; CPT 62322; principal; 2020-01-19 12:10)
DX: M54.16 Radiculopathy, lumbar region (principal); M54.17 Radiculopathy, lumbosacral region; M54.2 Cervicalgia; M54.12 Radiculopathy, cervical region; G82.20 Paraplegia, unspecified; M54.13 Radiculopathy, cervicothoracic region; M51.37 Other intervertebral disc degeneration, lumbosacral region; M51.36 Other intervertebral disc degeneration, lumbar region; Z99.3 Dependence on wheelchair
CPT/HCPCS: 62323; 64483; 72020

== ENCOUNTER 2020-05-24 05:51 | Day surgery (SDC) | payer MEDICARE, SELFPAY ==
[2020-01-19 12:01] VITALS: BMI 40.6
[2020-05-24 06:15] VITALS: BP 110/55; PULSE 97; RESP 18; TEMP 36.5; O2SAT 94; BMI 40.2
[2020-05-24] MEDS: Lactated Ringers 1,000 ML 100 ML IV (06:45)
--- NOTE | 2020-05-24 07:30 | RAD_ITS ---
PROCEDURE: Epidural injection. DATE OF EXAMINATION: 05/24/2020 INDICATION: Female, 45 years old. Chronic back pain. FLUOROSCOPY TIME (if supplied): (4 seconds) minutes/seconds. A single intraoperative image was submitted. Intraoperative imaging provided for lumbar epidural injection. RAD/Spine 1 View Any Level IMPRESSION: Intraoperative imaging provided for lumbar epidural injection. Electronically Signed: Roosevelt Galvez, at 14:16 EST , Service support ,
[2020-05-24] MEDS: Triamcinolone Acetonide 40 MG/ML Vial (07:50)
[2020-05-24] MEDS: Lidocaine 0.5% (50 ml) 50 ML Vial (07:50)
[2020-05-24 08:00] VITALS: BP 110/55; BP 90/60; PULSE 72; RESP 16; TEMP 36.4; O2SAT 92
[2020-05-24 08:05] VITALS: BP 110/55; BP 96/60; PULSE 72; RESP 16; O2SAT 94
[2020-05-24 08:10] VITALS: BP 105/71; BP 110/55; PULSE 68; RESP 16; O2SAT 92
[2020-05-24 08:15] VITALS: BP 100/68; BP 110/55; PULSE 68; RESP 16; TEMP 36.8; O2SAT 94
[2020-05-24 09:13] VITALS: BP 110/55
== END 2020-05-24 09:16 | disposition skilled nursing facility (03) ==
LOC: SDC 05:52 → AC 05:53
PROVIDERS: PCP Family Medicine; Referring Provider Anesthesiology Pain Medicine; Visit Provider Anesthesiology Pain Medicine
PROC: 3E0S3BZ Introduction of Anesthetic Agent into Epidural Space, Percutaneous Approach (ICD-10-PCS; CPT 62322; principal; 2020-05-24 07:25)
DX: M54.16 Radiculopathy, lumbar region (principal); M54.17 Radiculopathy, lumbosacral region; M51.36 Other intervertebral disc degeneration, lumbar region; M96.1 Postlaminectomy syndrome, not elsewhere classified; G82.50 Quadriplegia, unspecified
CPT/HCPCS: 62323; 64483; 72020; J7120

== ENCOUNTER 2020-10-11 13:11 | Day surgery (SDC) | payer MEDICARE, SELFPAY ==
[2020-10-11] VITALS (10 sets, daily range): BP systolic 78–114; BP diastolic 50–74; PULSE 65–79; RESP 16–18; TEMP 36.3–36.5; O2SAT 92–95; BMI 40.2
[2020-10-11] MEDS: Lactated Ringers 1,000 ML 100 ML IV (13:54)
--- NOTE | 2020-10-11 14:15 | RAD_ITS ---
PROCEDURE: Caudal block. DATE OF EXAMINATION: 10/11/2020 INDICATION: Female, 45 years old. Chronic low back pain. FLUOROSCOPY TIME (if supplied): (8 seconds) minutes/seconds. One image was obtained. Intraoperative image provided for caudal block. RAD/Fluor Guidance for Spine Inj IMPRESSION: Intraoperative imaging provided for caudal block. Electronically Signed: Roosevelt Galvez MD at 8:50 EDT , Service support ,
[2020-10-11] MEDS: Triamcinolone Acetonide 40 MG/ML Vial (14:25)
[2020-10-11] MEDS: Lidocaine 0.5% (50 ml) 50 ML Vial (14:25)
== END 2020-10-11 16:37 ==
LOC: SDC 13:11 → AC 13:12
PROVIDERS: PCP Family Medicine; Referring Provider Anesthesiology Pain Medicine; Visit Provider Anesthesiology Pain Medicine
PROC: 3E0S3BZ Introduction of Anesthetic Agent into Epidural Space, Percutaneous Approach (ICD-10-PCS; CPT 62282; principal; 2020-10-11 11:25)
DX: M54.5 Low back pain (principal); G89.29 Other chronic pain; M51.36 Other intervertebral disc degeneration, lumbar region; M54.16 Radiculopathy, lumbar region; M51.37 Other intervertebral disc degeneration, lumbosacral region; M54.17 Radiculopathy, lumbosacral region
CPT/HCPCS: 20552; 64483; 77003; J7120

== ENCOUNTER → 2020-11-22 05:11 | Outpatient (REF) | payer MEDICARE, SELFPAY ==
[2020-10-11 13:36] VITALS: BMI 40.2
[2020-11-22 08:55] LABS: Color, Urine Yellow (Yellow); Glucose, Dipstick Normal (Normal); Ketone-Dipstick Negative (Negative); Leukocyte Esterase-Dipstick 500 /ul (Negative); Nitrite-Dipstick Negative (Negative); Occult Blood-Urine 150 /ul (Negative); Protein-Dipstick 30 mg/dl (Negative); Specific Gravity, Urine 1.005 (1.002-1.030); Urine Bilirubin Dipstick Negative (Negative); Urine Clarity Sl. Cloudy (Clear); Urine Urobilinogen Normal (Normal)
== END ==
LOC: OLS.SW500 05:11
PROVIDERS: PCP Family Medicine; Visit Provider Family Medicine
DX: R10.30 Lower abdominal pain, unspecified (principal)
CPT/HCPCS: 81002; 87077; 87086; 87088; 87186

== ENCOUNTER → 2020-11-24 17:58 | Outpatient (REF) | payer MEDICARE, SELFPAY ==
[2020-10-11 13:36] VITALS: BMI 40.2
[2020-11-24 18:38] LABS: Absolute Neutrophil Count 6.6 X10^3/uL (2.0-7.7); Basophil# 0.04 X10^3/uL; Basophil% 0.4 % (0-1); Eosinophil# 0.06 X10^3/uL; Eosinophils% 0.6 % (0-5); Hematocrit 41.5 % (37-47); Hemoglobin 12.9 g/dL (12.0-15.0); Lymphocyte % 26.4 % (19-41); Mean Corp Hgb Conc 31.1 g/dL (32-36); Mean Corpuscular Hgb 26.2 pg (27.0-32.0); Mean Corpuscular Volume 84.3 fL (81-99); Mean Platelet Vol. 9.4 fl (6.2-12.0); Monocyte# 0.45 X10^3/uL; Monocyte% 4.6 % (0-10); NRBC Flagged by Analyzer 0 % (0-5); Neutrophil # 6.63 X10^3/uL (2.7-7.7); Neutrophil % 67.5 % (47-70); Platelet Count 362 K/mm3 (150-450); RBC Distribution Width CV 15.6 % (11.6-14.6); RBC Distribution Width SD 47.6 fl (35.1-43.9); Red Blood Count 4.92 M/mm3 (4.2-5.4); White Blood Count 9.8 K/mm3 (4.4-11.0)
[2020-11-24 19:28] LABS: ALB/GLOB Ratio 0.7 RATIO (0.9-2.4); AST(SGOT) 27 U/L (15-37); Alanine Aminotransfer ALT/SGPT 38 U/L (13-56); Alkaline Phosphatase 86 U/L (45-117); Anion Gap 12 (5-15); BUN 10 mg/dL (7-18); BUN/Creat Ratio 30.8 RATIO (10-20); Chloride 98 mmol/L (98-107); Creatinine, Serum 0.32 mg/dL (0.55-1.02); EST Glomerular Filtration Rate 231 mL/min (>60); Est Glom Filt Rate - Afr Amer 280 mL/min (>60); Globulin 4.5 g/dL (2.2-4.2); Glucose 119 mg/dL (74-106); Potassium 2.6 mmol/L (3.5-5.1); Protein, Total 7.5 g/dL (6.4-8.2); Sodium Level 138 mmol/L (136-145)
== END ==
LOC: OLS.SW500 17:58
PROVIDERS: PCP Family Medicine; Referring Provider Family Medicine; Visit Provider Family Medicine
DX: R53.83 Other fatigue (principal)
CPT/HCPCS: 36415; 80053; 85025

== ENCOUNTER → 2020-11-25 04:00 | Outpatient (REF) | payer MEDICARE, SELFPAY ==
[2020-10-11 13:36] VITALS: BMI 40.2
[2020-11-25 07:43] LABS: Anion Gap 4 (5-15); BUN 9 mg/dL (7-18); BUN/Creat Ratio 22.4 RATIO (10-20); Calcium,Total 9.2 mg/dL (8.5-10.1); Chloride 101 mmol/L (98-107); EST Glomerular Filtration Rate 181 mL/min (>60); Est Glom Filt Rate - Afr Amer 219 mL/min (>60); Glucose 105 mg/dL (74-106); Potassium 3.2 mmol/L (3.5-5.1); Sodium Level 137 mmol/L (136-145)
== END ==
LOC: OLS.SW500 04:00
PROVIDERS: PCP Family Medicine; Visit Provider Family Medicine
DX: E87.6 Hypokalemia (principal); G82.50 Quadriplegia, unspecified
CPT/HCPCS: 36415; 80048

== ENCOUNTER → 2020-12-24 05:00 | Outpatient (REF) | payer MEDICARE, SELFPAY ==
[2020-10-11 13:36] VITALS: BMI 40.2
[2020-12-24 08:15] LABS: Anion Gap 6 (5-15); BUN 9 mg/dL (7-18); Calcium,Total 8.3 mg/dL (8.5-10.1); Chloride 102 mmol/L (98-107); Creatinine, Serum 0.29 mg/dL (0.55-1.02); EST Glomerular Filtration Rate 264 mL/min (>60); Est Glom Filt Rate - Afr Amer 319 mL/min (>60); Glucose 92 mg/dL (74-106); Potassium 3.4 mmol/L (3.5-5.1); Sodium Level 140 mmol/L (136-145)
== END ==
LOC: OLS.SW500 05:00
PROVIDERS: PCP Family Medicine; Visit Provider Family Medicine
DX: E87.5 Hyperkalemia (principal)
CPT/HCPCS: 36415; 80048

== ENCOUNTER → 2021-01-17 05:00 | Outpatient (REF) | payer MEDICARE, SELFPAY ==
[2020-10-11 13:36] VITALS: BMI 40.2
[2021-01-17 07:57] LABS: Anion Gap 4 (5-15); BUN 11 mg/dL (7-18); BUN/Creat Ratio 49.1 RATIO (10-20); Calcium,Total 8.6 mg/dL (8.5-10.1); Chloride 104 mmol/L (98-107); Creatinine, Serum 0.22 mg/dL (0.55-1.02); EST Glomerular Filtration Rate 355 mL/min (>60); Est Glom Filt Rate - Afr Amer 430 mL/min (>60); Glucose 83 mg/dL (74-106); Potassium 3.4 mmol/L (3.5-5.1); Sodium Level 140 mmol/L (136-145)
== END ==
LOC: OLS.SW500 05:00
PROVIDERS: PCP Family Medicine; Referring Provider Family Medicine; Visit Provider Family Medicine
DX: N31.9 Neuromuscular dysfunction of bladder, unspecified (principal)
CPT/HCPCS: 36415; 80048

== ENCOUNTER 2021-02-03 13:47 | Day surgery (SDC) | payer MEDICARE, MEDICAID, SELFPAY ==
[2021-02-03] VITALS (7 sets, daily range): BP systolic 89–131; BP diastolic 63–90; PULSE 69–80; RESP 16–18; TEMP 36.2–36.7; O2SAT 92–97; BMI 38.4
[2021-02-03] MEDS: Lactated Ringers 1,000 ML 100 ML IV (15:14)
--- NOTE | 2021-02-03 15:35 | RAD_ITS ---
PROCEDURE: Caudal block. DATE OF EXAMINATION: 02/03/2021 INDICATION: Female, 46 years old. Chronic low back pain FLUOROSCOPY TIME (if supplied): (6 seconds) minutes/seconds. One image was obtained. RAD/Fluor Guidance for Spine Inj IMPRESSION: Intraoperative imaging provided for caudal block. Electronically Signed: Roosevelt Galvez MD at 16:06 EDT , Service support ,
[2021-02-03] MEDS: Triamcinolone Acetonide 40 MG/ML Vial (15:45)
[2021-02-03] MEDS: Lidocaine 0.5% (50 ml) 50 ML Vial (15:45)
== END 2021-02-03 16:26 ==
LOC: SDC 13:48 → AC 13:50
PROVIDERS: PCP Family Medicine; Visit Provider Anesthesiology Pain Medicine
PROC: 3E0S3BZ Introduction of Anesthetic Agent into Epidural Space, Percutaneous Approach (ICD-10-PCS; CPT 62282; principal; 2021-02-03 15:25)
DX: M54.16 Radiculopathy, lumbar region (principal); M51.36 Other intervertebral disc degeneration, lumbar region; M51.37 Other intervertebral disc degeneration, lumbosacral region; G20 Parkinson's disease; G82.50 Quadriplegia, unspecified
CPT/HCPCS: 62323; 64483; 77003; J7120

== ENCOUNTER → 2021-02-20 05:00 | Outpatient (REF) | payer MEDICARE, SELFPAY ==
[2021-02-20 07:27] LABS: Hematocrit 40.5 % (37-47); Hemoglobin 12.4 g/dL (12.0-15.0); Mean Corp Hgb Conc 30.6 g/dL (32-36); Mean Corpuscular Hgb 26.9 pg (27.0-32.0); Mean Corpuscular Volume 87.9 fL (81-99); Mean Platelet Vol. 9.5 fl (6.2-12.0); Platelet Count 385 K/mm3 (150-450); RBC Distribution Width CV 15.4 % (11.6-14.6); RBC Distribution Width SD 50.3 fl (35.1-43.9); Red Blood Count 4.61 M/mm3 (4.2-5.4); White Blood Count 10.1 K/mm3 (4.4-11.0)
[2021-02-20 08:15] LABS: Anion Gap 5 (5-15); BUN 14 mg/dL (7-18); BUN/Creat Ratio 43.2 RATIO (10-20); Calcium,Total 8.5 mg/dL (8.5-10.1); Chloride 103 mmol/L (98-107); Creatinine, Serum 0.32 mg/dL (0.55-1.02); EST Glomerular Filtration Rate 232 mL/min (>60); Est Glom Filt Rate - Afr Amer 281 mL/min (>60); Glucose 79 mg/dL (74-106); Potassium 3.5 mmol/L (3.5-5.1); Sodium Level 139 mmol/L (136-145); Thyroid Stim Hormone (TSH) 1.45 uIU/mL (0.358-3.74)
[2021-02-20 10:49] LABS: Vitamin D,25 Hydroxy 30.9 ng/mL
== END ==
LOC: OLS.SW500 05:00
PROVIDERS: PCP Family Medicine; Visit Provider Family Medicine
DX: E55.9 Vitamin D deficiency, unspecified (principal); R53.83 Other fatigue; E03.9 Hypothyroidism, unspecified
CPT/HCPCS: 36415; 80048; 82306; 84443; 85027

== ENCOUNTER → 2021-03-18 04:00 | Outpatient (REF) | payer MEDICARE, SELFPAY ==
[2021-03-18 07:28] LABS: Iron 48 ug/dL (50-170); Iron Binding Capacity,Total 291 ug/dL (250-450)
== END ==
LOC: OLS.SW500 04:00
PROVIDERS: PCP Family Medicine; Visit Provider Family Medicine
DX: D50.9 Iron deficiency anemia, unspecified (principal)
CPT/HCPCS: 36415; 83540; 83550

== ENCOUNTER 2021-04-21 13:17 | Emergency (ER) | payer MEDICARE, SELFPAY ==
[2021-04-21 13:18] VITALS: BP 153/84; PULSE 60; RESP 18; TEMP 37; O2SAT 93; BMI 44.4
--- NOTE | 2021-04-21 14:24 | EKG12_ITS ---
Test Reason : CP Blood Pressure : / mmHG Vent. Rate : 064 BPM Atrial Rate : 064 BPM P-R Int : 140 ms QRS Dur : 084 ms QT Int : 412 ms P-R-T Axes : 066 041 033 degrees QTc Int : 425 ms Normal sinus rhythm Normal ECG Confirmed by LUIS HAMILTON, LORNA ([id number]), editor city MAUREEN RAMIREZ ([id number]) on 04/23/2021 9:16:56 AM Referred By: RUTHIE Confirmed By:LORNA SMITH MD
[2021-04-21] MEDS: Morphine 4 MG/ML Syringe IV (14:54)
[2021-04-21] MEDS: 0.9% Normal Saline 1,000 ML 1000 ML IV (14:55)
[2021-04-21 14:57] LABS: Absolute Lymphocyte Count 3.57 X10^3/uL (0.83-4.51); Absolute Neutrophil Count 6.5 X10^3/uL (2.0-7.7); Basophil# 0.04 X10^3/uL; Basophil% 0.4 % (0-1); Eosinophil# 0.22 X10^3/uL; Hematocrit 41.8 % (37-47); Lymphocyte # 3.57 X10^3/ul (0.83-4.51); Mean Corp Hgb Conc 31.1 g/dL (32-36); Mean Corpuscular Hgb 27.1 pg (27.0-32.0); Mean Corpuscular Volume 87.1 fL (81-99); Mean Platelet Vol. 9.6 fl (6.2-12.0); Monocyte# 0.85 X10^3/uL; Monocyte% 7.6 % (0-10); NRBC Flagged by Analyzer 0 % (0-5); Neutrophil # 6.45 X10^3/uL (2.7-7.7); Neutrophil % 57.6 % (47-70); Platelet Count 338 K/mm3 (150-450); RBC Distribution Width CV 15.1 % (11.6-14.6); RBC Distribution Width SD 48.4 fl (35.1-43.9); White Blood Count 11.2 K/mm3 (4.4-11.0)
[2021-04-21 15:04] LABS: Mucous, Urine 0 SEEN /hpf (<or=2+)
[2021-04-21 15:19] LABS: Color, Urine Yellow (Yellow); Glucose, Dipstick Normal (Normal); Ketone-Dipstick Negative (Negative); Leukocyte Esterase-Dipstick 500 /ul (Negative); Nitrite-Dipstick Positive (Negative); Occult Blood-Urine 150 /ul (Negative); Protein-Dipstick 100 mg/dl (Negative); Urine Clarity Sl. Cloudy (Clear); Urine Urobilinogen 4 mg/dl (Normal)
[2021-04-21 15:20] LABS: Urine Bilirubin Dipstick 1 mg/dL (Negative)
--- NOTE | 2021-04-21 15:25 | EDS_ITS ---
HPI History of Present Illness Chief Complaint: Complaint Informant: patient Onset/Context/Timing Onset: Weeks (1) Context: Gradual Onset Timing: Continuous Quality: Sharp Location: Suprapubic Worsened by: Spasms Relieved by: Nothing Narrative Narrative: Patient presents with bladder pain and spasms that have been getting worse over the past few days. Patient states she also has had an elevated blood pressure over the last week. Patient states her pain is localized to the suprapubic area. Patient states the pain is sharp. Patient states it is worse whenever her bladder spasms. Patient states nothing seems to help with it. Patient does admit to a headache. Patient also admits to some pain in her chest whenever her bladder spasms. Patient admits to some nausea and vomiting with the bladder spasms as well. Patient denies any fevers or chills. Patient is a quadriplegic and has a chronic suprapubic catheter in place. [facility] Medical History Abnormal EKG Chronic headaches Chronic pain Cocaine abuse Deep vein thrombosis of right lower extremity Depression Exogenous obesity Heroin use History of Rsguc-Tjajjizxu-Dczwt (WPW) syndrome Hx: UTI (urinary tract infection) Hypothyroidism Left femoral shaft fracture Malnutrition of mild degree Paraplegia Pre-operative cardiovascular exam, new EKG abnormalities c/w ischemia Quadriparesis Right ischial pressure sore, stage 4 Spinal cord injury (2010) Suprapubic catheter Home Medications levothyroxine 75 mcg PO DAILY 05/28/15 [History Last Taken 05/23/20] duloxetine 120 mg PO QHS 08/21/15 [History Last Taken 05/23/20] baclofen 40 mg PO Q6H 08/16/16 [History Last Taken 05/23/20] gabapentin 1,600 mg PO TIDCM 08/16/16 [History Last Taken 10/11/20] acetaminophen 650 mg PO Q4H PRN PRN 03/01/18 [History Last Taken 05/23/20] bisacodyl 10 mg [place] QHS 03/01/18 [History Last Taken 05/23/20] omeprazole 20 mg PO LUNCH 03/01/18 [History Last Taken 05/23/20] furosemide 40 mg PO BREAKFAST 05/26/18 [History Last Taken 05/23/20] sennosides 17.2 mg PO BID 08/16/18 [History Last Taken 05/23/20] trimethoprim 100 mg PO 1500 08/16/18 [History Last Taken 05/23/20] ibuprofen 600 mg PO Q6H PRN PRN #30 tab 10/13/18 [Rx Last Taken 05/23/20] nystatin 1 applic TOPICAL BID PRN bottle 10/13/18 [Rx Last Taken 05/23/20] ondansetron 4 mg PO Q4H PRN PRN tab 10/13/18 [Rx Last Taken 05/23/20] cholecalciferol (vitamin D3) 2,000 unit PO 1500 08/08/19 [History Last Taken 05/23/20] oxycodone 5 mg PO Q8H PRN 08/08/19 [History Last Taken 05/24/20] phenazopyridine 200 mg PO PRN PRN 08/08/19 [History Last Taken 05/23/20] polyethylene glycol 3350 17 gm PO QHS 08/08/19 [History Last Taken 05/23/20] ferrous gluconate 239 mg PO 1500 05/22/20 [History Last Taken 05/23/20] Artificial Tears 2 drp EACH EYE Q4H PRN PRN 10/11/20 [History Last Taken Unknown] buspirone 7.5 mg PO TID 10/11/20 [History Last Taken Unknown] cetirizine [Zyrtec] 10 mg PO DAILY 10/11/20 [History Last Taken Unknown] docusate sodium [Colace] 100 mg PO DAILY 10/11/20 [History Last Taken Unknown] fluticasone furoate 1 spray NASAL DAILY 10/11/20 [History Last Taken Unknown] melatonin 5 mg PO QHS 10/11/20 [History Last Taken Unknown] oxybutynin chloride 5 mg PO BID 10/11/20 [History Last Taken Unknown] simethicone 80 mg PO 4X/DAY PRN 10/11/20 [History Last Taken Unknown] sodium chloride [Saline Mist] 2 spray INTRANASAL Q2H PRN 10/11/20 [History Last Taken Unknown] amoxicillin-pot clavulanate 875 mg PO Q12H #20 tablet 04/21/21 [Rx Last Taken Unknown] furosemide 20 mg PO DAILY 04/21/21 [History Last Taken Unknown] oxycodone [OxyContin] 10 mg PO Q12H 04/21/21 [History Last Taken Unknown] Allergy/AdvReac Type Severity Reaction Status Date / Time apixaban [From Eliquis] Allergy Rash Verified 04/21/21 13:22 coconut oil Allergy cant breath Verified 04/21/21 13:22 mometasone furoate Allergy Rash Verified 04/21/21 13:22 [From Elocon] nitrofurantoin Allergy Unknown Verified 04/21/21 13:22 rivaroxaban [From Xarelto] Allergy Rash Verified 04/21/21 13:22 Sulfa (Sulfonamide Allergy Shortness Verified 04/21/21 13:22 Antibiotics) of breath Family History (System 02/01/19 @ 15:39 by Janelle Farnsworth) Mother Diabetes Grandfather CAD (coronary artery disease) Colon cancer Grandmother Breast cancer Aunt Ovarian cancer Surgical History History of tracheostomy (2010) Social History Smoking Status: Never smoker ROS ROS ED Constitutional Constitutional ED: Denies chills or fever(s) Eyes Eyes: Denies blurry vision or change in vision ENT ENT ED: Denies rhinorrhea or sore throat Cardiovascular Cardiovascular: Reports chest pain; Denies palpitations Respiratory/Chest Respiratory/Chest: Denies cough or dyspnea Gastrointestinal Gastrointestinal: Reports nausea and vomiting Genitourinary Genitourinary ED: Denies dysuria or hematuria Musculoskeletal Musculoskeletal: Reports back pain; Denies neck pain Integumentary Denies abscess or rash Neurologic Neurologic: Reports headache(s); Denies weakness Allergic/Immunologic Allergic/Immunologic ED: Denies mouth swelling or urticaria EXAM Physical Exam Const Vital Signs: 04/21/21 13:18 04/21/21 16:20 Temperature 98.6 F Temperature Source Oral Pulse Rate 60 65 Respiratory Rate 18 14 Blood Pressure 153/84 H 131/82 H Blood Pressure Mean 107 98 Pulse Ox 93 96 Oxygen Delivery Method Room Air Room Air Positive well nourished and well developed General Appearance ED: well developed HEENT Reports moist mucous membranes Neck supple and no JVD Resp normal respiratory effort and clear to auscultation bilaterally Cardio regular rate, regular rhythm and no murmurs GI normal to inspection, nondistended, normoactive bowel sounds Palpation: soft and tender suprapubic; Negative for guarding or rebound tenderness present Extremity normal to inspection General Extremety ED: Negative for edema or tenderness General Extremity: Negative for edema Neuro oriented x3, CN's II-XII intact bilaterally and no sensory deficits noted Sensorium / Orientation: alert Motor Exam: strength 5/5 throughout Psych mental status grossly normal Skin no rashes or lesions noted MDM MDM MDM Narrative Medical decision making narrative: EKG was obtained. On my interpretation, it showed a normal sinus rhythm with a rate of 64. OH interval, QRS interval, and QTc intervals were all normal. [place] was normal. There are no acute ST or T wave changes. CBC shows a slight leukocytosis of 11.2. Comprehensive metabolic profile was essentially within normal limits. Urinalysis shows leukocyte esterase of 500 with 25-50 white blood cells. There is 3+ bacteria. There is positive nitrates. Occult blood was 150 with 10-25 red blood cells. Urine culture was ordered. Patient was given a dose of Rocephin here. Patient was given a prescription for Augmentin. Patient was instructed to follow-up with her primary care physician in 3 to 5 days. Patient understood and was agreeable with the plan. All questions were answered. Lab Data Attestation: I reviewed the patient's lab results. Labs: Laboratory Results - last 24 hr 04/21/21 04/21/21 04/21/21 14:45 14:45 15:00 WBC 11.2 H RBC 4.80 Hgb 13.0 Hct 41.8 MCV 87.1 MCH 27.1 MCHC 31.1 L RDW Std Deviation 48.4 H RDW Coeff of Juan Antonio 15.1 H Plt Count 338 MPV 9.6 Immature Gran % (Auto) 0.400 Neut % (Auto) 57.6 Lymph % (Auto) 32.0 [place] % (Auto) 7.6 Eos % (Auto) 2.0 Baso % (Auto) 0.4 Absolute Neuts (auto) 6.5 Absolute Lymphs (auto) 3.57 Nucleated RBC % 0 Sodium 139 Potassium 3.4 L Chloride 105 Carbon Dioxide 28.0 Anion Gap 6 BUN 10 Creatinine 0.58 Estim Creat Clear Calc 90.48 Est GFR (MDRD) Af Amer 142 Est GFR (MDRD) Non-Af 118 BUN/Creatinine Ratio 17.2 Glucose 115 H Calcium 8.8 Total Bilirubin 0.40 AST 16 ALT 29 Alkaline Phosphatase 87 Troponin I High Sens 20 Total Protein 7.8 Albumin 2.9 L Globulin 4.9 H Albumin/Globulin Ratio 0.6 L Urine Color Yellow Urine Clarity Sl. Cloudy Urine pH 7.0 Ur Specific [place] 1.010 Urine Protein 100 H Urine Glucose (UA) Normal Urine Ketones Negative Urine Occult Blood 150 H Urine Nitrite Positive H Urine Bilirubin 1 H Urine Urobilinogen 4 H Ur Leukocyte Esterase 500 H Urine RBC 10-25 SEEN Urine WBC 25-50 SEEN Ur Squamous Epith Cells 0-5 SEEN Urine Bacteria 3+ Urine Mucus 0 SEEN EKG Initial EKG: Attestation: I personally reviewed and interpreted this EKG as follows: Interpretation: Sinus Rhythm (64) and No Acute Injury Pattern Prior EKG tracings: available for review Prior: Unchanged (05/25/2016) Discharge Plan Triage Chief Complaint: Complaint ED Provider: [place] Dx/Rx/DC Orders Clinical Impression: Urinary tract infection Prescriptions: New amoxicillin-pot clavulanate [amoxicillin-pot clavulanate] 875 MG tablet 875 mg PO Q12H Qty: 20 RF: 0 No Action levothyroxine 75 MCG tablet 75 mcg PO DAILY RF: 0 duloxetine 60 MG capsule,delayed release(DR/EC) 120 mg PO QHS RF: 0 gabapentin 400 MG capsule 1,600 mg PO TIDCM RF: 0 baclofen 10 MG tablet 40 mg PO Q6H RF: 0 acetaminophen 325 MG tablet 650 mg PO Q4H PRN PRN (Reason: Pain) RF: 0 bisacodyl 10 MG suppository 10 mg [place] QHS RF: 0 omeprazole 20 MG capsule,delayed release(DR/EC) 20 mg PO LUNCH RF: 0 furosemide 40 MG tablet 40 mg PO BREAKFAST RF: 0 sennosides 8.6 MG tablet 17.2 mg PO BID RF: 0 trimethoprim 100 MG tablet 100 mg PO 1500 RF: 0 nystatin 1 APPLIC bottle 1 applic topical BID PRN (Reason: skin irritation) RF: 0 ibuprofen 600 MG tablet 600 mg PO Q6H PRN PRN (Reason: Mild Pain (1-3/10)) Qty: 30 RF: 1 ondansetron 4 MG tablet 4 mg PO Q4H PRN PRN (Reason: Nausea) RF: 0 polyethylene glycol 3350 17 GM packet 17 gm PO QHS RF: 0 phenazopyridine 100 MG tablet 200 mg PO PRN PRN (Reason: Bladder Spasm) RF: 0 oxycodone 5 MG tablet 5 mg PO Q8H PRN (Reason: Pain Or Fever) RF: 0 cholecalciferol (vitamin D3) 2,000 UNIT capsule 2,000 unit PO 1500 RF: 0 ferrous gluconate 236 MG tablet 239 mg PO 1500 RF: 0 Artificial Tears 2 drp EACH EYE Q4H PRN PRN (Reason: Dry Eyes) RF: 0 buspirone 5 mg Tablet 7.5 mg PO TID RF: 0 docusate sodium [Colace] 100 mg Capsule 100 mg PO DAILY RF: 0 oxybutynin chloride 5 mg Tablet 5 mg PO BID RF: 0 sodium chloride [Saline Mist] 0.65 % Aerosol,[place] 2 spray INTRANASAL Q2H PRN (Reason: Congestion) RF: 0 Zyrtec 10 mg Capsule 10 mg PO DAILY RF: 0 simethicone 80 mg Tablet 80 mg PO 4X/DAY PRN (Reason: Abdominal Distention) RF: 0 melatonin 3 mg Capsule 5 mg PO QHS RF: 0 fluticasone furoate 1 spray NASAL DAILY RF: 0 furosemide 20 mg Tablet 20 mg PO DAILY RF: 0 oxycodone [OxyContin] 10 mg Tablet,Oral Only,Ext.Rel.12 Hr 10 mg PO Q12H RF: 0 Primary Care Provider: Lavon Vicente Referrals: Lavon Vicente MD [Primary Care Provider] - 3-5 Days Disposition Disposition: [facility] Facility Discharge Location: [facility]
[2021-04-21 15:30] LABS: ALB/GLOB Ratio 0.6 RATIO (0.9-2.4); AST(SGOT) 16 U/L (15-37); Alanine Aminotransfer ALT/SGPT 29 U/L (13-56); Albumin, Serum 2.9 g/dL (3.2-5.0); Alkaline Phosphatase 87 U/L (45-117); Anion Gap 6 (5-15); BUN 10 mg/dL (7-18); BUN/Creat Ratio 17.2 RATIO (10-20); Calcium,Total 8.8 mg/dL (8.5-10.1); Chloride 105 mmol/L (98-107); Creatinine, Serum 0.58 mg/dL (0.55-1.02); EST Glomerular Filtration Rate 118 mL/min (>60); Est Glom Filt Rate - Afr Amer 142 mL/min (>60); Estimated Creatinine Clearance 90.48 ml/min; Globulin 4.9 g/dL (2.2-4.2); Glucose 115 mg/dL (74-106); Potassium 3.4 mmol/L (3.5-5.1); Protein, Total 7.8 g/dL (6.4-8.2); Sodium Level 139 mmol/L (136-145); Troponin-I HS 20 pg/mL (3.0-54.0)
[2021-04-21 15:32] LABS: White Blood Cells 25-50 SEEN /hpf (0-5)
[2021-04-21 15:33] LABS: Bacteria 3+ /hpf (None Seen); Red Blood Cells-Urine 10-25 SEEN /hpf (0-5); Squamous Epithelial Cells - UA 0-5 SEEN /hpf (5-10)
[2021-04-21 16:20] VITALS: BP 131/82; PULSE 65; RESP 14; O2SAT 96
[2021-04-21] MEDS: Ceftriaxone 1 GM/50 ML BAG IV (16:33)
--- NOTE | 2021-04-21 16:53 | NURSING ---
CALLED [facility], ETA IS 45 TO 60 MIN
== END 2021-04-21 18:14 | disposition skilled nursing facility (03) ==
PROVIDERS: Emergency Provider Emergency Medicine; PCP Family Medicine
DX: N39.0 Urinary tract infection, site not specified (principal); Z93.0 Tracheostomy status; G82.50 Quadriplegia, unspecified; E03.9 Hypothyroidism, unspecified; F14.10 Cocaine abuse, uncomplicated; F32.9 Major depressive disorder, single episode, unspecified; G89.29 Other chronic pain; Z79.01 Long term (current) use of anticoagulants; Z79.51 Long term (current) use of inhaled steroids; Z79.891 Long term (current) use of opiate analgesic; Z87.440 Personal history of urinary (tract) infections
CPT/HCPCS: 80053; 81001; 84484; 85025; 87077; 87086; 87088; 87186; 87426; 93005; 96361; 96365; 96375; 99285; J7030

== ENCOUNTER 2021-04-22 19:42 | Emergency (ER) | payer MEDICARE, SELFPAY ==
[2021-04-22 19:45] VITALS: BP 155/103; PULSE 72; RESP 10; TEMP 36.6; O2SAT 96; BMI 43.8
[2021-04-22 19:49] VITALS: BP 155/103; PULSE 72; RESP 10; TEMP 36.6; O2SAT 96
--- NOTE | 2021-04-22 20:22 | RAD_ITS ---
EXAM: XR CHEST, 1 VIEW CLINICAL INDICATION: weakness TECHNIQUE: Frontal view of the chest. This report was created using [employer] report generation technology. COMPARISON: None. FINDINGS: LUNGS AND PLEURAL SPACES: Unremarkable. No consolidation or edema. No pneumothorax. No effusion. HEART: Unremarkable. Cardiac silhouette not enlarged. MEDIASTINUM: Central airways and mediastinal contour are unremarkable. BONES/JOINTS: Cervical spinal fusion hardware noted. SOFT TISSUES: Unremarkable. RAD/Chest 1 View (Portable) IMPRESSION: No acute findings in the chest. Electronically Signed: Yusuf Melo MD at 21:15 EST , Service support ,
[2021-04-22 20:55] LABS: Absolute Lymphocyte Count 4.23 X10^3/uL (0.83-4.51); Absolute Neutrophil Count 6.4 X10^3/uL (2.0-7.7); Basophil# 0.05 X10^3/uL; Basophil% 0.4 % (0-1); Eosinophil# 0.27 X10^3/uL; Eosinophils% 2.3 % (0-5); Hematocrit 42.5 % (37-47); Hemoglobin 13.1 g/dL (12.0-15.0); Lymphocyte # 4.23 X10^3/ul (0.83-4.51); Lymphocyte % 36.2 % (19-41); Mean Corp Hgb Conc 30.8 g/dL (32-36); Mean Corpuscular Hgb 27.3 pg (27.0-32.0); Mean Corpuscular Volume 88.5 fL (81-99); Mean Platelet Vol. 9.6 fl (6.2-12.0); Monocyte# 0.68 X10^3/uL; Monocyte% 5.8 % (0-10); NRBC Flagged by Analyzer 0 % (0-5); Neutrophil # 6.41 X10^3/uL (2.7-7.7); Platelet Count 314 K/mm3 (150-450); RBC Distribution Width CV 15.3 % (11.6-14.6); RBC Distribution Width SD 49.5 fl (35.1-43.9); White Blood Count 11.7 K/mm3 (4.4-11.0)
[2021-04-22 21:18] LABS: Anion Gap 6 (5-15); BUN 9 mg/dL (7-18); BUN/Creat Ratio 18.9 RATIO (10-20); Calcium,Total 9.1 mg/dL (8.5-10.1); Chloride 102 mmol/L (98-107); Creatinine, Serum 0.48 mg/dL (0.55-1.02); EST Glomerular Filtration Rate 148 mL/min (>60); Est Glom Filt Rate - Afr Amer 179 mL/min (>60); Estimated Creatinine Clearance 109.33 ml/min; Glucose 103 mg/dL (74-106); Lactic Acid 1.7 mmol/L (0.4-1.9); Potassium 4.3 mmol/L (3.5-5.1); Sodium Level 136 mmol/L (136-145)
[2021-04-22] MEDS: Ketorolac 30 MG/ML Syringe IV (21:42)
--- NOTE | 2021-04-22 21:49 | ED.RN ---
pt refused covid test stating she was tested at [facility] and it was negative.
--- NOTE | 2021-04-22 22:31 | ED.RN ---
PT has asked again for more anxiety medication for her generalized anxiety. PT has a hx of anxiety but no PRN meds she gets at her ECF. PT also stated her pain has not improved. aware.
[2021-04-22 22:32] VITALS: BP 108/58; PULSE 75; RESP 18
--- NOTE | 2021-04-22 22:40 | EDS_ITS ---
HPI History of Present Illness Chief Complaint: Weakness Narrative Narrative: Patient is a 46-year-old female from the [place] [facility] who stays there because of quadriplegia. She has a chronic indwelling suprapubic catheter. She was seen in the ER yesterday and diagnosed with a UTI. She states today she has had increased generalized weakness and therefore was sent back to the hospital for evaluation. [facility] Medical History Abnormal EKG Chronic headaches Chronic pain Cocaine abuse Deep vein thrombosis of right lower extremity Depression Exogenous obesity Heroin use History of Sjzqd-Nwmruxrgt-Ezcrn (WPW) syndrome Hx: UTI (urinary tract infection) Hypothyroidism Left femoral shaft fracture Malnutrition of mild degree Paraplegia Pre-operative cardiovascular exam, new EKG abnormalities c/w ischemia Quadriparesis Right ischial pressure sore, stage 4 Spinal cord injury (2010) Suprapubic catheter Home Medications levothyroxine 75 mcg PO DAILY 05/28/15 [History Last Taken 04/22/21] duloxetine 120 mg PO QHS 08/21/15 [History Last Taken 04/21/21] baclofen 40 mg PO Q6H 08/16/16 [History Last Taken 04/22/21] acetaminophen 650 mg PO Q4H PRN PRN 03/01/18 [History Last Taken 04/21/21] bisacodyl 10 mg NE QHS 03/01/18 [History Last Taken 04/21/21] omeprazole 20 mg PO LUNCH 03/01/18 [History Last Taken 04/22/21] furosemide 40 mg PO BREAKFAST 05/26/18 [History Last Taken 04/22/21] sennosides 17.2 mg PO BID 08/16/18 [History Last Taken 04/22/21] trimethoprim 100 mg PO 1500 08/16/18 [History Last Taken 04/22/21] cholecalciferol (vitamin D3) 2,000 unit PO LUNCH 08/08/19 [History Last Taken 04/22/21] oxycodone 5 mg PO Q8H PRN 08/08/19 [History Last Taken 04/22/21] polyethylene glycol 3350 17 gm PO QHS 08/08/19 [History Last Taken 04/21/21] docusate sodium [Colace] 200 mg PO QHS 10/11/20 [History Last Taken 04/21/21] amoxicillin-pot clavulanate 875 mg PO Q12H #20 tablet 04/21/21 [Rx Last Taken 04/22/21] furosemide 20 mg PO LUNCH 04/21/21 [History Last Taken 04/22/21] oxycodone [OxyContin] 10 mg PO Q12H 04/21/21 [History Last Taken 04/22/21] acetaminophen 650 mg NE Q4H PRN 04/22/21 [History Last Taken 04/22/21] acidophilus-pectin, citrus [Acidophilus Probiotic] 1 cap PO DAILY 04/22/21 [History Last Taken 04/22/21] buspirone 7.5 mg PO BID 04/22/21 [History Last Taken 04/22/21] ferrous gluconate 240 mg PO DAILY 04/22/21 [History Last Taken 04/22/21] gabapentin 1,600 mg PO TID 04/22/21 [History Last Taken 04/22/21] isosorbide mononitrate 30 mg PO QHS 04/22/21 [History Last Taken 04/21/21] oxybutynin chloride 30 mg PO DAILY 04/22/21 [History Last Taken 04/22/21] potassium chloride 10 meq PO DAILY 04/22/21 [History Last Taken 04/22/21] Allergy/AdvReac Type Severity Reaction Status Date / Time apixaban [From Eliquis] Allergy Rash Verified 04/21/21 13:22 coconut oil Allergy cant breath Verified 04/21/21 13:22 mometasone furoate Allergy Rash Verified 04/21/21 13:22 [From Elocon] morphine Allergy NEEDS Verified 04/22/21 19:43 FOLLOW-UP nitrofurantoin Allergy Unknown Verified 04/21/21 13:22 rivaroxaban [From Xarelto] Allergy Rash Verified 04/21/21 13:22 Sulfa (Sulfonamide Allergy Shortness Verified 04/21/21 13:22 Antibiotics) of breath Family History (System 02/01/19 @ 15:39 by Janelle Farnsworth) Mother Diabetes Grandfather CAD (coronary artery disease) Colon cancer Grandmother Breast cancer Aunt Ovarian cancer Surgical History History of tracheostomy (2010) Social History Smoking Status: Never smoker ROS ROS ED Constitutional Constitutional ED: Denies chills or fever(s) ENT ENT ED: Denies sore throat Cardiovascular Cardiovascular: Denies chest pain Respiratory/Chest Respiratory/Chest: Denies cough or dyspnea Gastrointestinal Gastrointestinal: Reports abdominal pain; Denies diarrhea, nausea or vomiting Genitourinary Genitourinary ED: Denies dysuria Musculoskeletal Musculoskeletal: Reports myalgias Integumentary Denies rash Neurologic Neurologic: Reports weakness; Denies headache(s) EXAM Physical Exam Const Vital Signs: 04/22/21 19:45 04/22/21 19:49 04/22/21 19:50 Temperature 97.9 F 97.9 F Temperature Source Oral Oral Pulse Rate 72 72 Respiratory Rate 10 L 10 L Respiratory Effort Normal Respiratory Pattern Normal Blood Pressure 155/103 H 155/103 H Blood Pressure Mean 120 120 Pulse Ox 96 96 Oxygen Delivery Method Room Air Room Air 04/22/21 22:32 Temperature Temperature Source Pulse Rate 75 Respiratory Rate 18 Respiratory Effort Respiratory Pattern Blood Pressure 108/58 L Blood Pressure Mean 74 Pulse Ox Oxygen Delivery Method Positive well nourished, well developed and obese General Appearance ED: well developed Nutritional Appearance: obese Eyes PERRL and EOMs intact bilaterally Neck supple Neck Narrative: No meningeal signs Chest Wall palpation of chest normal Resp normal respiratory effort and clear to auscultation bilaterally Cardio regular rate and regular rhythm GI normal to inspection, nondistended, normoactive bowel sounds, non-tender, non- distended and no masses GI Narrative: No voluntary guarding or rigidity no pulsatile mass Auscultation: normoactive bowel sounds Palpation: soft Narrative: Patient has a suprapubic catheter in place with no surrounding secondary soft tissue changes to suggest infection Extremity Extremity Narrative: Patient has chronic changes to her extremity secondary to the quadriplegia but no new/acute findings Neuro oriented x3 and CN's II-XII intact bilaterally Sensorium / Orientation: alert Psych mental status grossly normal MDM MDM MDM Narrative Medical decision making narrative: Patient presented to the ER afebrile and had a normal neurologic exam excluding her normal quadriplegia. She was just diagnosed with a UTI the other day and otherwise has no obvious changes to suggest urosepsis at this time. A basic work-up was obtained which shows just slight elevation to the white count at 11.7 but this is stable compared to her value from yesterday to 11.2. Lactic acid is also normal and she does not have acute kidney injury changes noted. Therefore this time I do not feel there is need for placement in the hospital and patient will be discharged back to [place] [facility]. Lab Data Attestation: I reviewed the patient's lab results. Labs: Laboratory Results - last 24 hr 04/22/21 04/22/21 04/22/21 19:58 19:58 19:58 WBC 11.7 H RBC 4.80 Hgb 13.1 Hct 42.5 MCV 88.5 MCH 27.3 MCHC 30.8 L RDW Std Deviation 49.5 H RDW Coeff of Juan Antonio 15.3 H Plt Count 314 MPV 9.6 Immature Gran % (Auto) 0.300 Neut % (Auto) 55.0 Lymph % (Auto) 36.2 [place] % (Auto) 5.8 Eos % (Auto) 2.3 Baso % (Auto) 0.4 Absolute Neuts (auto) 6.4 Absolute Lymphs (auto) 4.23 Nucleated RBC % 0 Sodium 136 Potassium 4.3 Chloride 102 Carbon Dioxide 28.0 Anion Gap 6 BUN 9 Creatinine 0.48 L Estim Creat Clear Calc 109.33 Est GFR (MDRD) Af Amer 179 Est GFR (MDRD) Non-Af 148 BUN/Creatinine Ratio 18.9 Glucose 103 Lactic Acid 1.7 Calcium 9.1 Magnesium 2.0 Radiography Diagnostic Testing: Clinical Impression(s) from Imaging Studies Chest X-Ray 04/22/21 20:22 IMPRESSION: No acute findings in the chest. Electronically Signed: Yusuf Melo MD at 21:15 EST , Service support , Discharge Plan Triage Chief Complaint: Weakness ED Provider: Vic Howe Dx/Rx/DC Orders Clinical Impression: Urinary tract infection Instructions: Urinary Tract Infections in Women Prescriptions: No Action levothyroxine 75 MCG tablet 75 mcg PO DAILY RF: 0 duloxetine 60 MG capsule,delayed release(DR/EC) 120 mg PO QHS RF: 0 baclofen 10 MG tablet 40 mg PO Q6H RF: 0 acetaminophen 325 MG tablet 650 mg PO Q4H PRN PRN (Reason: Pain) RF: 0 bisacodyl 10 MG suppository 10 mg NE QHS RF: 0 omeprazole 20 MG capsule,delayed release(DR/EC) 20 mg PO LUNCH RF: 0 furosemide 40 MG tablet 40 mg PO BREAKFAST RF: 0 sennosides 8.6 MG tablet 17.2 mg PO BID RF: 0 trimethoprim 100 MG tablet 100 mg PO 1500 RF: 0 polyethylene glycol 3350 17 GM packet 17 gm PO QHS RF: 0 oxycodone 5 MG tablet 5 mg PO Q8H PRN (Reason: Severe Pain (Scale Score 7-10)) RF: 0 cholecalciferol (vitamin D3) 2,000 UNIT capsule 2,000 unit PO LUNCH RF: 0 docusate sodium [Colace] 100 mg Capsule 200 mg PO QHS RF: 0 furosemide 20 mg Tablet 20 mg PO LUNCH RF: 0 oxycodone [OxyContin] 10 mg Tablet,Oral Only,Ext.Rel.12 Hr 10 mg PO Q12H RF: 0 amoxicillin-pot clavulanate [amoxicillin-pot clavulanate] 875 MG tablet 875 mg PO Q12H Qty: 20 RF: 0 isosorbide mononitrate 30 mg Tablet Extended Release 24 Hr 30 mg PO QHS RF: 0 acidophilus-pectin, citrus [Acidophilus Probiotic] 100 million cell-10 mg Capsule 1 cap PO DAILY RF: 0 potassium chloride 10 mEq Capsule, Extended Release 10 meq PO DAILY RF: 0 acetaminophen 650 mg Suppository 650 mg NE Q4H PRN (Reason: Pain) RF: 0 oxybutynin chloride 10 mg Tablet Extended Release 24hr 30 mg PO DAILY RF: 0 gabapentin 800 mg Tablet 1,600 mg PO TID RF: 0 ferrous gluconate 240 mg (27 mg iron) Tablet 240 mg PO DAILY RF: 0 buspirone 7.5 mg Tablet 7.5 mg PO BID RF: 0 Primary Care Provider: Lavon Vicente Referrals: Lavon Vicente MD [Primary Care Provider] - Disposition Disposition: Home, Self Care
[2021-04-22] MEDS: Ceftriaxone 1 GM/50 ML BAG IV (23:13)
[2021-04-22] MEDS: fentaNYL 100 MCG/2 ML Ampul 25 MCG IV (23:13)
[2021-04-22] MEDS: hydrOXYzine 50 MG/ML Vial IM (23:13)
[2021-04-22] MEDS: Ondansetron 4 MG/2 ML Vial IV (23:14)
--- NOTE | 2021-04-22 23:14 | ED.RN ---
Attempted to use scanner multiple times, unable.
[2021-04-23 00:06] VITALS: BP 108/70; PULSE 80; RESP 14; O2SAT 94
== END 2021-04-23 01:26 | disposition home or self-care (01) ==
PROVIDERS: Emergency Provider Emergency Medicine; PCP Family Medicine
DX: N39.0 Urinary tract infection, site not specified (principal); E03.9 Hypothyroidism, unspecified; F32.9 Major depressive disorder, single episode, unspecified; G82.50 Quadriplegia, unspecified; G89.29 Other chronic pain; E66.9 Obesity, unspecified; F14.10 Cocaine abuse, uncomplicated; Z79.01 Long term (current) use of anticoagulants; Z79.51 Long term (current) use of inhaled steroids; Z79.891 Long term (current) use of opiate analgesic; Z87.440 Personal history of urinary (tract) infections; Z93.0 Tracheostomy status; Z86.718 Personal history of other venous thrombosis and embolism
CPT/HCPCS: 71045; 80048; 83605; 83735; 85025; 96361; 96365; 96372; 96375; 99285; J7030; J7040; A4216; J2405

== ENCOUNTER → 2021-05-02 05:00 | Outpatient (REF) | payer MEDICARE, MEDICAID, SELFPAY ==
[2021-05-02 08:05] LABS: Anion Gap 5 (5-15); BUN 11 mg/dL (7-18); BUN/Creat Ratio 27.8 RATIO (10-20); Calcium,Total 8.8 mg/dL (8.5-10.1); Chloride 104 mmol/L (98-107); EST Glomerular Filtration Rate 184 mL/min (>60); Est Glom Filt Rate - Afr Amer 222 mL/min (>60); Glucose 96 mg/dL (74-106); Potassium 3.5 mmol/L (3.5-5.1); Sodium Level 138 mmol/L (136-145)
== END ==
LOC: OLS.SW500 05:00
PROVIDERS: PCP Family Medicine; Visit Provider Family Medicine
DX: Z01.818 Encounter for other preprocedural examination (principal)
CPT/HCPCS: 36415; 80048

== ENCOUNTER → 2021-05-06 05:00 | Outpatient (REF) | payer MEDICARE, SELFPAY ==
[2021-05-06 09:47] LABS: Hematocrit 37.6 % (37-47); Hemoglobin 11.3 g/dL (12.0-15.0); Mean Corp Hgb Conc 30.1 g/dL (32-36); Mean Corpuscular Hgb 26.9 pg (27.0-32.0); Mean Corpuscular Volume 89.5 fL (81-99); Mean Platelet Vol. 9.3 fl (6.2-12.0); Platelet Count 348 K/mm3 (150-450); RBC Distribution Width CV 15.2 % (11.6-14.6); RBC Distribution Width SD 50.1 fl (35.1-43.9); White Blood Count 9.4 K/mm3 (4.4-11.0)
[2021-05-06 10:01] LABS: Anion Gap 5 (5-15); BUN 9 mg/dL (7-18); BUN/Creat Ratio 25.4 RATIO (10-20); Calcium,Total 8.4 mg/dL (8.5-10.1); Chloride 105 mmol/L (98-107); Creatinine, Serum 0.36 mg/dL (0.55-1.02); EST Glomerular Filtration Rate 208 mL/min (>60); Est Glom Filt Rate - Afr Amer 252 mL/min (>60); Glucose 100 mg/dL (74-106); Potassium 3.5 mmol/L (3.5-5.1); Sodium Level 139 mmol/L (136-145)
== END ==
LOC: OLS.SW500 05:00
PROVIDERS: PCP Family Medicine; Visit Provider Family Medicine
DX: R53.83 Other fatigue (principal)
CPT/HCPCS: 36415; 80048; 85027

== ENCOUNTER → 2021-05-07 06:10 | Outpatient (REF) | payer MEDICARE, SELFPAY ==
[2021-05-07 08:28] LABS: Color, Urine Yellow (Yellow); Glucose, Dipstick Normal (Normal); Ketone-Dipstick Negative (Negative); Leukocyte Esterase-Dipstick 500 /ul (Negative); Nitrite-Dipstick Negative (Negative); Occult Blood-Urine 50 /ul (Negative); Protein-Dipstick 15 mg/dl (Negative); Urine Bilirubin Dipstick Negative (Negative); Urine Clarity Clear (Clear); Urine Urobilinogen Normal (Normal)
== END ==
LOC: OLS.SW500 06:10
PROVIDERS: PCP Family Medicine; Visit Provider Family Medicine
DX: N31.9 Neuromuscular dysfunction of bladder, unspecified (principal); R53.83 Other fatigue
CPT/HCPCS: 81002; 87077; 87086; 87088; 87186

== ENCOUNTER → 2021-05-26 04:30 | Outpatient (REF) | payer MEDICARE, SELFPAY ==
[2021-05-26 07:35] LABS: Mucous, Urine 0 SEEN /hpf (<or=2+)
[2021-05-26 08:52] LABS: Color, Urine Yellow (Yellow); Glucose, Dipstick Normal (Normal); Ketone-Dipstick Negative (Negative); Leukocyte Esterase-Dipstick 500 /ul (Negative); Nitrite-Dipstick Positive (Negative); Occult Blood-Urine 250 /ul (Negative); Protein-Dipstick 100 mg/dl (Negative); Urine Clarity Sl. Cloudy (Clear); Urine Urobilinogen 12 mg/dl (Normal)
[2021-05-26 08:53] LABS: Urine Bilirubin Dipstick 6 mg/dL (Negative)
[2021-05-26 08:58] LABS: Bacteria 1+ /hpf (None Seen); Red Blood Cells-Urine 5-10 SEEN /hpf (0-5); Squamous Epithelial Cells - UA 0-5 SEEN /hpf (5-10); White Blood Cells 50-100 SEEN /hpf (0-5)
== END ==
LOC: OLS.SW500 04:30
PROVIDERS: PCP Family Medicine; Visit Provider Family Medicine
DX: N39.0 Urinary tract infection, site not specified (principal)
CPT/HCPCS: 81001; 87077; 87086; 87088; 87186

== ENCOUNTER 2021-05-27 18:25 | Emergency (ER) | payer MEDICARE, SELFPAY ==
[2021-05-27 18:27] VITALS: BP 138/97; PULSE 87; RESP 18; TEMP 36; O2SAT 89; BMI 44.1
[2021-05-27 18:48] VITALS: BP 94/67; PULSE 51; RESP 11; O2SAT 97
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
--- NOTE | 2021-05-27 19:41 | RAD_ITS ---
EXAM: XR CHEST, 1 VIEW CLINICAL INDICATION: Hypoxia TECHNIQUE: Frontal view of the chest. This report was created using [employer] report generation technology. COMPARISON: 04/22/2021 9:14 PM.. FINDINGS: LUNGS AND PLEURAL SPACES: Unremarkable. No consolidation or edema. No pneumothorax. No effusion. HEART: Unremarkable. Cardiac silhouette not enlarged. MEDIASTINUM: Central airways and mediastinal contour are unremarkable. BONES/JOINTS: Cervical spinal fusion hardware noted. Stable scoliosis. SOFT TISSUES: Unremarkable. RAD/Chest 1 View (Portable) IMPRESSION: No acute findings in the chest. No change from XR Chest 1 View with report dated 04/22/2021 9:14 PM. Electronically Signed: Yusuf Melo MD at 20:09 EST , Service support ,
[2021-05-27 19:53] LABS: Mucous, Urine 0 SEEN /hpf (<or=2+)
[2021-05-27 19:53] LABS: Absolute Lymphocyte Count 2.72 X10^3/uL (0.83-4.51); Absolute Neutrophil Count 6.7 X10^3/uL (2.0-7.7); Basophil# 0.05 X10^3/uL; Basophil% 0.5 % (0-1); Eosinophil# 0.24 X10^3/uL; Eosinophils% 2.3 % (0-5); Hematocrit 43.3 % (37-47); Hemoglobin 13.2 g/dL (12.0-15.0); Lymphocyte # 2.72 X10^3/ul (0.83-4.51); Mean Corp Hgb Conc 30.5 g/dL (32-36); Mean Corpuscular Hgb 26.7 pg (27.0-32.0); Mean Corpuscular Volume 87.5 fL (81-99); Mean Platelet Vol. 9.5 fl (6.2-12.0); Monocyte% 6.7 % (0-10); NRBC Flagged by Analyzer 0 % (0-5); Neutrophil # 6.73 X10^3/uL (2.7-7.7); Neutrophil % 64.2 % (47-70); Platelet Count 388 K/mm3 (150-450); RBC Distribution Width CV 14.7 % (11.6-14.6); RBC Distribution Width SD 47.5 fl (35.1-43.9); Red Blood Count 4.95 M/mm3 (4.2-5.4); White Blood Count 10.5 K/mm3 (4.4-11.0)
[2021-05-27 19:57] LABS: Color, Urine Amber (Yellow); Glucose, Dipstick Normal (Normal); Ketone-Dipstick 5 mg/dl (Negative); Leukocyte Esterase-Dipstick 500 /ul (Negative); Nitrite-Dipstick Positive (Negative); Occult Blood-Urine 250 /ul (Negative); Protein-Dipstick 100 mg/dl (Negative); Specific Gravity, Urine 1.015 (1.002-1.030); Urine Bilirubin Dipstick 3 mg/dL (Negative); Urine Clarity Cloudy (Clear); Urine Urobilinogen 8 mg/dl (Normal); Urine pH 6.5 (5.0 - 8.0)
[2021-05-27 20:02] LABS: Anion Gap 11 (5-15); BUN 17 mg/dL (7-18); BUN/Creat Ratio 31.3 RATIO (10-20); Calcium,Total 9.2 mg/dL (8.5-10.1); Chloride 102 mmol/L (98-107); Creatinine, Serum 0.54 mg/dL (0.55-1.02); EST Glomerular Filtration Rate 128 mL/min (>60); Est Glom Filt Rate - Afr Amer 154 mL/min (>60); Estimated Creatinine Clearance 97.19 ml/min; Glucose 125 mg/dL (74-106); Potassium 3.3 mmol/L (3.5-5.1); Sodium Level 139 mmol/L (136-145)
[2021-05-27 20:13] LABS: White Blood Cells >100 SEEN /hpf (0-5)
[2021-05-27 20:14] LABS: Bacteria 2+ /hpf (None Seen); Red Blood Cells-Urine 50-100 SEEN /hpf (0-5); Squamous Epithelial Cells - UA 5-10 SEEN /hpf (5-10)
[2021-05-27] MEDS: Ceftriaxone 1 GM/50 ML BAG IV (20:34)
[2021-05-27 20:59] VITALS: BP 106/60; PULSE 63; RESP 18; O2SAT 96
[2021-05-27 21:43] VITALS: BP 116/81; PULSE 73; RESP 18; O2SAT 92
--- NOTE | 2021-05-27 21:46 | NURSING ---
spoke with KALI king [facility]-told her the changes that are being made to pts antibiotic and she verbalized understanding.
== END 2021-05-27 23:07 | disposition home or self-care (01) ==
PROVIDERS: Emergency Provider Emergency Medicine; PCP Family Medicine
DX: N39.0 Urinary tract infection, site not specified (principal); G82.50 Quadriplegia, unspecified; Z87.440 Personal history of urinary (tract) infections; E03.9 Hypothyroidism, unspecified; F32.A Depression, unspecified; G89.29 Other chronic pain; Z79.01 Long term (current) use of anticoagulants; Z79.51 Long term (current) use of inhaled steroids; Z79.891 Long term (current) use of opiate analgesic
CPT/HCPCS: 71045; 80048; 81001; 85025; 87077; 87086; 87088; 87186; 99285; J7040; A4216

== ENCOUNTER → 2021-06-16 04:00 | Outpatient (REF) | payer MEDICARE, SELFPAY ==
[2021-06-16 09:07] LABS: Hematocrit 37.4 % (37-47); Hemoglobin 11.2 g/dL (12.0-15.0); Mean Corp Hgb Conc 29.9 g/dL (32-36); Mean Corpuscular Hgb 26.5 pg (27.0-32.0); Mean Corpuscular Volume 88.6 fL (81-99); Mean Platelet Vol. 9.3 fl (6.2-12.0); Platelet Count 353 K/mm3 (150-450); RBC Distribution Width CV 15.1 % (11.6-14.6); Red Blood Count 4.22 M/mm3 (4.2-5.4); White Blood Count 8.3 K/mm3 (4.4-11.0)
[2021-06-16 09:29] LABS: Anion Gap 4 (5-15); BUN 10 mg/dL (7-18); BUN/Creat Ratio 21.1 RATIO (10-20); Calcium,Total 8.7 mg/dL (8.5-10.1); Chloride 107 mmol/L (98-107); Creatinine, Serum 0.47 mg/dL (0.55-1.02); EST Glomerular Filtration Rate 149 mL/min (>60); Est Glom Filt Rate - Afr Amer 181 mL/min (>60); Glucose 87 mg/dL (74-106); Potassium 4.1 mmol/L (3.5-5.1); Sodium Level 141 mmol/L (136-145)
== END ==
LOC: OLS.SW500 04:00
PROVIDERS: PCP Family Medicine; Referring Provider Family Medicine; Visit Provider Family Medicine
DX: Z87.442 Personal history of urinary calculi (principal)
CPT/HCPCS: 36415; 80048; 85027

== ENCOUNTER 2021-07-21 14:02 | Day surgery (SDC) | payer MEDICARE, SELFPAY ==
[2021-07-21 14:17] VITALS: BP 102/66; PULSE 85; RESP 16; TEMP 37; O2SAT 93; BMI 41.1
--- NOTE | 2021-07-21 14:30 | RAD_ITS ---
PROCEDURE: Caudal block. DATE OF EXAMINATION: 07/21/2021. INDICATION: Female, 46 years old. Chronic low back pain. FLUOROSCOPY TIME (if supplied): (7.2 seconds) minutes/seconds. 2 images were obtained. RAD/Fluor Guidance for Spine Inj IMPRESSION: Intraoperative imaging provided for caudal. Electronically Signed: Roosevelt Galvez MD at 8:08 EST ,
[2021-07-21] MEDS: Lactated Ringers 1,000 ML 15 ML IV (15:00)
[2021-07-21] MEDS: Lidocaine 0.5% (50 ml) 50 ML Vial (15:17)
[2021-07-21] MEDS: Triamcinolone Acetonide 40 MG/ML Vial (15:20)
[2021-07-21 15:25] VITALS: BP 102/66; BP 109/73; PULSE 89; RESP 16; TEMP 37; O2SAT 94
[2021-07-21 15:30] VITALS: BP 102/66; BP 92/57; PULSE 83; RESP 16; O2SAT 92
[2021-07-21 15:40] VITALS: BP 102/66; BP 109/78; PULSE 81; RESP 16; O2SAT 91
[2021-07-21 15:45] VITALS: BP 102/66; BP 105/70; PULSE 78; RESP 16; TEMP 36.6; O2SAT 94
[2021-07-21 16:15] VITALS: BP 102/66
== END 2021-07-21 23:59 | disposition home or self-care (01) ==
LOC: SDC 14:07 → AC 14:08
PROVIDERS: PCP Family Medicine; Referring Provider Anesthesiology Pain Medicine; Visit Provider Anesthesiology Pain Medicine
PROC: 3E0S3BZ Introduction of Anesthetic Agent into Epidural Space, Percutaneous Approach (ICD-10-PCS; CPT 62282; principal; 2021-07-21 14:25)
DX: M54.16 Radiculopathy, lumbar region (principal); G82.50 Quadriplegia, unspecified; G82.20 Paraplegia, unspecified; G20 Parkinson's disease; M54.17 Radiculopathy, lumbosacral region; M51.36 Other intervertebral disc degeneration, lumbar region; M51.37 Other intervertebral disc degeneration, lumbosacral region; M19.90 Unspecified osteoarthritis, unspecified site; K21.9 Gastro-esophageal reflux disease without esophagitis; Z86.79 Personal history of other diseases of the circulatory system; Z87.440 Personal history of urinary (tract) infections; E03.9 Hypothyroidism, unspecified
CPT/HCPCS: 62323; 64483; 77003; J2405

== ENCOUNTER 2021-08-13 00:45 | Outpatient (REF) | payer MEDICARE, SELFPAY ==
[2021-08-13 09:01] LABS: Mucous, Urine 0 SEEN /hpf (<or=2+); Red Blood Cells-Urine 0 SEEN /hpf (0-5)
[2021-08-13 09:24] LABS: Color, Urine Yellow (Yellow); Glucose, Dipstick Normal (Normal); Ketone-Dipstick 5 mg/dl (Negative); Leukocyte Esterase-Dipstick 500 /ul (Negative); Nitrite-Dipstick Positive (Negative); Occult Blood-Urine 250 /ul (Negative); Protein-Dipstick 100 mg/dl (Negative); Urine Bilirubin Dipstick Negative (Negative); Urine Clarity Clear (Clear); Urine Urobilinogen Normal (Normal)
[2021-08-13 09:34] LABS: Bacteria 4+ /hpf (None Seen); Squamous Epithelial Cells - UA 0-5 SEEN /hpf (5-10); White Blood Cells 50-100 SEEN /hpf (0-5)
== END 2021-08-13 23:59 | disposition home or self-care (01) ==
LOC: OLS.SW500 00:45
PROVIDERS: PCP Family Medicine; Referring Provider Family Medicine; Visit Provider Family Medicine
DX: N39.0 Urinary tract infection, site not specified (principal)
CPT/HCPCS: 81001; 87077; 87086; 87088; 87186

== ENCOUNTER → 2021-08-21 | Outpatient (REF) | payer MEDICARE, SELFPAY ==
[2021-08-21 08:13] LABS: Hematocrit 36.4 % (37-47); Hemoglobin 11.3 g/dL (12.0-15.0); Mean Corpuscular Hgb 28.4 pg (27.0-32.0); Mean Corpuscular Volume 91.5 fL (81-99); Mean Platelet Vol. 8.9 fl (6.2-12.0); Platelet Count 351 K/mm3 (150-450); RBC Distribution Width CV 15.7 % (11.6-14.6); RBC Distribution Width SD 51.8 fl (35.1-43.9); Red Blood Count 3.98 M/mm3 (4.2-5.4)
[2021-08-21 08:27] LABS: Vitamin D,25 Hydroxy 26.9 ng/mL
[2021-08-21 08:38] LABS: Anion Gap 4 (5-15); BUN 13 mg/dL (7-18); BUN/Creat Ratio 38.8 RATIO (10-20); Calcium,Total 8.7 mg/dL (8.5-10.1); Chloride 106 mmol/L (98-107); Creatinine, Serum 0.34 mg/dL (0.55-1.02); EST Glomerular Filtration Rate 223 mL/min (>60); Est Glom Filt Rate - Afr Amer 269 mL/min (>60); Glucose 120 mg/dL (74-106); Potassium 3.7 mmol/L (3.5-5.1); Sodium Level 138 mmol/L (136-145); Thyroid Stim Hormone (TSH) 1.55 uIU/mL (0.358-3.74)
== END | disposition home or self-care (01) ==
LOC: OLS.SW500 04:00
PROVIDERS: PCP Family Medicine; Visit Provider Family Medicine
DX: E03.9 Hypothyroidism, unspecified (principal); R53.83 Other fatigue; E55.9 Vitamin D deficiency, unspecified
CPT/HCPCS: 36415; 80048; 82306; 84443; 85027

== ENCOUNTER 2021-09-12 08:01 | Day surgery (SDC) | payer MEDICARE, MEDICAID, SELFPAY ==
[2021-09-12] VITALS (8 sets, daily range): BP systolic 95–127; BP diastolic 60–79; PULSE 80–94; RESP 16; TEMP 36.9–37.4; O2SAT 89–97; BMI 43.4
[2021-09-12] MEDS: Lactated Ringers 1,000 ML 15 ML IV (08:32)
[2021-09-12] MEDS: Vancomycin IV 1,000 MG/200 ML BAG 200 MG IV (08:49)
--- NOTE | 2021-09-12 09:00 | RAD_ITS ---
PROCEDURE: SI joint injections DATE OF EXAMINATION: 09/12/2021 INDICATION: Female, 46 years old. Pelvic pain and stiffness PHYSICIAN: Dr. Hammond FLUOROSCOPY TIME (if supplied): (9.7) seconds, 1 cm image RADIATION DOSAGE (If Supplied By Facility): CTDIvol = ( 5.71 ) mGy, DLP = ( ) mGycm CONSENT: The risks, benefits and alternatives to the procedure were explained to the patient, and the patient agreed to the procedure and signed the consent. SEDATION: Local STERILE BARRIER TECHNIQUE: The following sterile barrier precautions were used during the procedure: hand hygiene; use of 2% chlorhexidine aseptic; use of a cap, mask, sterile gown, sterile gloves, sterile full body drape, and a large sterile sheet. PROCEDURE/TECHNIQUE: (All elements of maximal sterile barrier technique followed, including US elements as applicable) The risks, benefits, and alternatives to the procedure were explained to patient, and the patient agreed to the procedure and signed a consent form for the procedure. A timeout was performed to confirm the patient''s identity, the type of procedure, to be performed and the site of entry. Fluoroscopic guidance was performed by the operating room technologist to aid Dr. Hammond with bilateral SI joint injections. No complications noted. RAD/Fluoro Guided Needle Placement IMPRESSION: No complications noted during bilateral SI joint injections Electronically Signed: Fidel Ambrose MD at 8:40 EDT ,
[2021-09-12] MEDS: Bupivacaine 0.25% 30 ML Vial (11:24)
[2021-09-12] MEDS: Triamcinolone Acetonide 40 MG/ML Vial (11:24)
[2021-09-12] MEDS: oxyCODONE HCl Cr 10 MG Tablet PO (12:26)
== END 2021-09-12 23:59 | disposition home or self-care (01) ==
LOC: SDC 08:08 → AC 08:11
PROVIDERS: PCP Family Medicine; Referring Provider Anesthesiology Pain Medicine; Visit Provider Anesthesiology Pain Medicine
PROC: 3E0U3GC Introduction of Other Therapeutic Substance into Joints, Percutaneous Approach (ICD-10-PCS; CPT 27096; principal; 2021-09-12 09:30)
DX: M54.16 Radiculopathy, lumbar region (principal); L89.314 Pressure ulcer of right buttock, stage 4; G82.50 Quadriplegia, unspecified; G82.20 Paraplegia, unspecified; G20 Parkinson's disease; Z93.59 Other cystostomy status; M46.1 Sacroiliitis, not elsewhere classified; M51.36 Other intervertebral disc degeneration, lumbar region; M51.37 Other intervertebral disc degeneration, lumbosacral region; M54.17 Radiculopathy, lumbosacral region; E03.9 Hypothyroidism, unspecified; G89.29 Other chronic pain; F32.A Depression, unspecified; Z86.79 Personal history of other diseases of the circulatory system; Z87.440 Personal history of urinary (tract) infections
CPT/HCPCS: 27096; 01250; 76000; 77002; J7120

== ENCOUNTER → 2021-10-27 | Outpatient (REF) | payer MEDICARE, MEDICAID, SELFPAY ==
[2021-10-29 08:55] LABS: Mucous, Urine 0 SEEN /hpf (<or=2+); Red Blood Cells-Urine 0 SEEN /hpf (0-5)
[2021-10-29 09:20] LABS: Color, Urine Yellow (Yellow); Glucose, Dipstick Normal (Normal); Ketone-Dipstick Negative (Negative); Leukocyte Esterase-Dipstick 500 /ul (Negative); Nitrite-Dipstick Positive (Negative); Occult Blood-Urine 25 /ul (Negative); Protein-Dipstick 15 mg/dl (Negative); Urine Bilirubin Dipstick Negative (Negative); Urine Clarity Cloudy (Clear); Urine Urobilinogen Normal (Normal)
[2021-10-29 10:07] LABS: Amorphous Sediment 2+; Bacteria 2+ /hpf (None Seen); Squamous Epithelial Cells - UA 0-5 SEEN /hpf (5-10); Triple Phosphate Crystals Ur 1+ /hpf (<or=1+); White Blood Cells 10-25 SEEN /hpf (0-5)
== END | disposition home or self-care (01) ==
LOC: OLS.SW500 04:00
PROVIDERS: PCP Family Medicine; Visit Provider Family Medicine
DX: R30.0 Dysuria (principal)
CPT/HCPCS: 81001; 87077; 87086; 87088; 87186

== ENCOUNTER → 2021-11-24 | Outpatient (REF) | payer MEDICARE, MEDICAID, SELFPAY ==
[2021-11-24 09:14] LABS: Ferritin 90 ng/mL (8-252); Iron 59 ug/dL (50-170); Iron Binding Capacity,Total 294 ug/dL (250-450)
== END | disposition home or self-care (01) ==
LOC: OLS.SW500 04:00
PROVIDERS: PCP Family Medicine; Referring Provider Family Medicine; Visit Provider Family Medicine
DX: D64.9 Anemia, unspecified (principal); G82.50 Quadriplegia, unspecified
CPT/HCPCS: 36415; 82728; 83540; 83550

== ENCOUNTER → 2021-12-24 | Outpatient (REF) | payer MEDICARE, MEDICAID, SELFPAY ==
[2021-12-24 08:21] LABS: Bacteria 0 SEEN /hpf (None Seen); Mucous, Urine 0 SEEN /hpf (<or=2+)
[2021-12-24 09:27] LABS: Color, Urine Yellow (Yellow); Glucose, Dipstick Normal (Normal); Ketone-Dipstick Negative (Negative); Leukocyte Esterase-Dipstick 500 /ul (Negative); Nitrite-Dipstick Negative (Negative); Occult Blood-Urine 50 /ul (Negative); Protein-Dipstick 30 mg/dl (Negative); Urine Bilirubin Dipstick Negative (Negative); Urine Clarity Sl. Cloudy (Clear); Urine Urobilinogen Normal (Normal)
[2021-12-24 09:37] LABS: Squamous Epithelial Cells - UA 0-5 SEEN /hpf (5-10); White Blood Cells 0-5 SEEN /hpf (0-5)
[2021-12-24 09:38] LABS: Red Blood Cells-Urine 0-5 SEEN /hpf (0-5)
== END | disposition home or self-care (01) ==
LOC: OLS.SW500 08:20
PROVIDERS: PCP Family Medicine; Visit Provider Family Medicine
DX: R30.0 Dysuria (principal)
CPT/HCPCS: 81001; 87077; 87086; 87088; 87186

== ENCOUNTER 2022-01-09 09:20 | Day surgery (SDC) | payer MEDICARE, MEDICAID, SELFPAY ==
[2022-01-09 09:51] VITALS: BP 101/40; PULSE 91; RESP 18; TEMP 36.7; O2SAT 92; BMI 45.3
[2022-01-09] MEDS: Lactated Ringers 1,000 ML 15 ML IV (10:11)
--- NOTE | 2022-01-09 11:35 | RAD_ITS ---
PROCEDURE: Caudal block DATE OF EXAMINATION: 01/09/2022. INDICATION: Female, 46 years old. Chronic low back pain. FLUOROSCOPY TIME (if supplied): (9.9 seconds) minutes/seconds. 2 images were submitted. RAD/Fluor Guidance for Spine Inj IMPRESSION: Intraoperative imaging provided for caudal block. Electronically Signed: Roosevelt Galvez MD at 12:27 EDT ,
[2022-01-09] MEDS: Triamcinolone Acetonide 40 MG/ML Vial (11:45)
[2022-01-09] MEDS: Lidocaine 0.5% (50 ml) 50 ML Vial (11:45)
[2022-01-09 11:56] VITALS: BP 101/40; BP 101/73; PULSE 99; RESP 16; TEMP 37.3; O2SAT 94
[2022-01-09 12:01] VITALS: BP 101/40; BP 148/100; PULSE 106; RESP 16; O2SAT 92
[2022-01-09 12:06] VITALS: BP 101/40; BP 113/82; PULSE 105; RESP 16; O2SAT 92
[2022-01-09 12:11] VITALS: BP 101/40; BP 125/85; PULSE 102; RESP 16; TEMP 36.9; O2SAT 93
[2022-01-09 12:34] VITALS: BP 101/40
== END 2022-01-09 12:53 | disposition home or self-care (01) ==
LOC: SDC 09:25 → AC 09:25
PROVIDERS: PCP Family Medicine; Referring Provider Anesthesiology Pain Medicine; Visit Provider Anesthesiology Pain Medicine
PROC: 3E0S3BZ Introduction of Anesthetic Agent into Epidural Space, Percutaneous Approach (ICD-10-PCS; CPT 62282; principal; 2022-01-09 10:25)
DX: M51.16 Intervertebral disc disorders with radiculopathy, lumbar region (principal); G82.50 Quadriplegia, unspecified; G20 Parkinson's disease; M54.50 Low back pain, unspecified; G89.29 Other chronic pain; E03.9 Hypothyroidism, unspecified
CPT/HCPCS: 62323; 64483; 77003; J7120

== ENCOUNTER → 2022-01-13 | Outpatient (REF) | payer MEDICARE, MEDICAID, SELFPAY ==
[2022-01-13 08:47] LABS: Mucous, Urine 0 SEEN /hpf (<or=2+); Squamous Epithelial Cells - UA 0 SEEN /hpf (5-10)
[2022-01-13 09:32] LABS: Color, Urine Yellow (Yellow); Glucose, Dipstick Normal (Normal); Ketone-Dipstick Negative (Negative); Leukocyte Esterase-Dipstick 500 /ul (Negative); Nitrite-Dipstick Positive (Negative); Occult Blood-Urine 50 /ul (Negative); Protein-Dipstick 15 mg/dl (Negative); Urine Clarity Sl. Cloudy (Clear); Urine Urobilinogen 4 mg/dl (Normal)
[2022-01-13 09:33] LABS: Urine Bilirubin Dipstick 3 mg/dL (Negative)
[2022-01-13 09:49] LABS: Bacteria 1+ /hpf (None Seen); Red Blood Cells-Urine 0-5 SEEN /hpf (0-5); Triple Phosphate Crystals Ur 2+ /hpf (<or=1+); White Blood Cells 25-50 SEEN /hpf (0-5)
== END ==
LOC: OLS.SW500 04:30
PROVIDERS: PCP Family Medicine; Visit Provider Family Medicine
DX: N39.0 Urinary tract infection, site not specified (principal)
CPT/HCPCS: 81001; 87077; 87086; 87088; 87186

== ENCOUNTER → 2022-02-19 | Outpatient (REF) | payer MEDICARE, MEDICAID, SELFPAY ==
[2022-02-19 07:37] LABS: Hemoglobin 11.3 g/dL (12.0-15.0); Mean Corp Hgb Conc 30.5 g/dL (32-36); Mean Corpuscular Hgb 27.6 pg (27.0-32.0); Mean Corpuscular Volume 90.2 fL (81-99); Mean Platelet Vol. 9.2 fl (6.2-12.0); Platelet Count 301 K/mm3 (150-450); RBC Distribution Width SD 52.4 fl (35.1-43.9); White Blood Count 6.8 K/mm3 (4.4-11.0)
[2022-02-19 07:57] LABS: Anion Gap 8 (5-15); BUN 11 mg/dL (7-18); Calcium,Total 8.8 mg/dL (8.5-10.1); Chloride 103 mmol/L (98-107); Creatinine, Serum 0.46 mg/dL (0.55-1.02); EST Glomerular Filtration Rate 154 mL/min (>60); Est Glom Filt Rate - Afr Amer 187 mL/min (>60); Glucose 191 mg/dL (74-106); Potassium 3.8 mmol/L (3.5-5.1); Sodium Level 140 mmol/L (136-145); Thyroid Stim Hormone (TSH) 2.26 uIU/mL (0.358-3.74)
[2022-02-19 08:21] LABS: Vitamin D,25 Hydroxy 32.3 ng/mL
== END ==
LOC: OLS.SW500 05:00
PROVIDERS: PCP Family Medicine; Visit Provider Family Medicine
DX: E03.9 Hypothyroidism, unspecified (principal); E55.9 Vitamin D deficiency, unspecified
CPT/HCPCS: 36415; 80048; 82306; 84443; 85027

== ENCOUNTER → 2022-02-27 | Outpatient (REF) | payer MEDICARE, MEDICAID, SELFPAY ==
[2022-02-27 08:06] LABS: Mucous, Urine 0 SEEN /hpf (<or=2+)
[2022-02-27 08:22] LABS: Color, Urine Yellow (Yellow); Glucose, Dipstick Normal (Normal); Ketone-Dipstick Negative (Negative); Leukocyte Esterase-Dipstick 500 /ul (Negative); Nitrite-Dipstick Negative (Negative); Occult Blood-Urine 250 /ul (Negative); Protein-Dipstick 15 mg/dl (Negative); Urine Bilirubin Dipstick Negative (Negative); Urine Clarity Sl. Cloudy (Clear); Urine Urobilinogen Normal (Normal)
[2022-02-27 08:37] LABS: Red Blood Cells-Urine 25-50 SEEN /hpf (0-5); Squamous Epithelial Cells - UA 0-5 SEEN /hpf (5-10); White Blood Cells 25-50 SEEN /hpf (0-5)
[2022-02-27 08:38] LABS: Bacteria 1+ /hpf (None Seen)
== END ==
LOC: OLS.SW500 08:05
PROVIDERS: PCP Family Medicine; Visit Provider Family Medicine
DX: R41.82 Altered mental status, unspecified (principal)
CPT/HCPCS: 81001; 87077; 87086; 87088; 87186

== ENCOUNTER → 2022-03-18 | Outpatient (REF) | payer MEDICARE, MEDICAID, SELFPAY ==
[2022-03-18 09:05] LABS: Iron 45 ug/dL (50-170); Iron Binding Capacity,Total 281 ug/dL (250-450)
== END ==
LOC: OLS.SW500 05:00
PROVIDERS: PCP Family Medicine; Visit Provider Family Medicine
DX: D50.9 Iron deficiency anemia, unspecified (principal)
CPT/HCPCS: 36415; 83540; 83550

== ENCOUNTER → 2022-03-27 | Outpatient (REF) | payer MEDICARE, MEDICAID, SELFPAY ==
[2022-03-27 15:29] LABS: Mucous, Urine 0 SEEN /hpf (<or=2+)
[2022-03-27 15:32] LABS: Color, Urine Yellow (Yellow); Glucose, Dipstick Normal (Normal); Ketone-Dipstick Negative (Negative); Leukocyte Esterase-Dipstick 500 /ul (Negative); Nitrite-Dipstick Positive (Negative); Occult Blood-Urine 250 /ul (Negative); Protein-Dipstick 30 mg/dl (Negative); Urine Bilirubin Dipstick Negative (Negative); Urine Clarity Cloudy (Clear); Urine Urobilinogen Normal (Normal)
[2022-03-27 15:51] LABS: Bacteria 4+ /hpf (None Seen); Red Blood Cells-Urine 10-25 SEEN /hpf (0-5); Squamous Epithelial Cells - UA 0-5 SEEN /hpf (5-10); White Blood Cells 10-25 SEEN /hpf (0-5)
[2022-03-27 15:52] LABS: Triple Phosphate Crystals Ur 3+ /hpf (<or=1+)
== END ==
LOC: OLS.SW500 14:35
PROVIDERS: PCP Family Medicine; Referring Provider Family Medicine; Visit Provider Family Medicine
DX: N31.9 Neuromuscular dysfunction of bladder, unspecified (principal); N39.0 Urinary tract infection, site not specified
CPT/HCPCS: 81001; 87077; 87086; 87088; 87186

== ENCOUNTER 2022-06-03 05:59 | Inpatient (IN) | payer MEDICARE, MEDICAID, SELFPAY ==
[2022-06-03] VITALS (7 sets, daily range): BP systolic 95–159; BP diastolic 60–108; PULSE 59–99; RESP 11–20; TEMP 36–36.9; O2SAT 90–97; BMI 44.4; BMI 49.9
--- NOTE | 2022-06-03 06:14 | EKG12_ITS ---
Test Reason : alt ms Blood Pressure : / mmHG Vent. Rate : 059 BPM Atrial Rate : 059 BPM P-R Int : 192 ms QRS Dur : 092 ms QT Int : 460 ms P-R-T Axes : 049 037 067 degrees QTc Int : 455 ms Sinus bradycardia Otherwise normal ECG Confirmed by LUIS HAMILTON, LORNA ([id number]), photograph editor MAUREEN RAMIREZ ([id number]) on 06/04/2022 8:18:06 AM Referred By: Confirmed By:LORNA SMITH MD
--- NOTE | 2022-06-03 06:14 | CT_ITS ---
EXAM: CT HEAD WITHOUT INTRAVENOUS CONTRAST CLINICAL INDICATION: Altered mental status TECHNIQUE: Multiple axial images were obtained of the head without intravenous contrast. This CT exam was performed using one or more of the following dose reduction techniques: automated exposure control, adjustment of the mA and/or kV according to patient size, and/or use of iterative reconstruction technique. This report was created using [employer] report generation technology. RADIATION DOSE: CTDIvol = 44.99 mGy, DLP = 1727.20 mGy-cm. COMPARISON: None. FINDINGS: BRAIN AND EXTRA-AXIAL SPACES: Unremarkable. No intra- or extra-axial hemorrhage. No evidence of acute infarct. No intracranial mass or mass effect. There is preservation of the patterson/white matter interface. Posterior fossa structures are unremarkable. Ventricles are appropriate for age. No hydrocephalus. Basal cisterns are patent. BONES/JOINTS: Unremarkable. No discrete lytic or blastic abnormalities. SINUSES: Unremarkable as visualized. Clear. MASTOID AIR CELLS: Unremarkable. Clear. ORBITS: Visualized globes, extraocular muscles, optic nerves and retrobulbar fat appear unremarkable. CT/Brain/Head without Contrast IMPRESSION: Negative head/brain CT without intravenous contrast. Electronically Signed: Juan Luis Todd MD at 7:16 EST ,
--- NOTE | 2022-06-03 06:14 | RAD_ITS ---
EXAM: XR CHEST, 1 VIEW CLINICAL INDICATION: Altered mental status TECHNIQUE: Frontal view of the chest. This report was created using [employer] report generation technology. COMPARISON: None. FINDINGS: LIMITATIONS: Rotated LPO. LUNGS AND PLEURAL SPACES: Diffuse increased density left mid and lower hemithorax. No pneumothorax. No effusion. HEART: Unremarkable. Cardiac silhouette not enlarged. MEDIASTINUM: Central airways and mediastinal contour are unremarkable. BONES/JOINTS: Anterior and posterior cervical fusion hardware are unchanged. SOFT TISSUES: Unremarkable. RAD/Chest 1 View (Portable) IMPRESSION: Diffuse increased density left mid and lower hemithorax. This may in part be due to artifact from rotation but consolidation cannot be excluded. Right lung is clear. Electronically Signed: Juan Luis Todd MD at 7:13 EST ,
--- NOTE | 2022-06-03 06:25 | EX.ED.DYSGE1 ---
HPI History of Present Illness Chief Complaint: Alt LOC Informant: EMS and SNF Limited: stupor Onset/Context/Timing Onset: Today Timing: Continuous Quality: Altered mental status Location: Generalized Narrative Narrative: Patient presents with altered mental status that was noticed this morning. Patient was noted to be unresponsive this morning. care home staff states that patient has had similar symptoms with prior urinary tract infections. Patient is nonverbal and is a poor informant. care home denies any fevers or chills. care home denies any nausea or vomiting. [facility] Medical History Abnormal EKG Chronic headaches Chronic pain Cocaine abuse Deep vein thrombosis of right lower extremity Depression Exogenous obesity Heroin use History of Ewnsb-Uqipsgncd-Icqzy (WPW) syndrome Hx: UTI (urinary tract infection) Hypothyroidism Left femoral shaft fracture Malnutrition of mild degree Neuromuscular dysfunction of bladder Paraplegia Pre-operative cardiovascular exam, new EKG abnormalities c/w ischemia Quadriparesis Right ischial pressure sore, stage 4 Spinal cord injury (2010) Suprapubic catheter Home Medications levothyroxine 75 mcg tablet 75 mcg PO DAILY 05/28/15 [History Last Taken 04/22/21] duloxetine 60 mg capsule,delayed release 90 mg PO QHS 08/21/15 [History Last Taken 04/21/21] baclofen 10 mg tablet 40 mg PO Q6H SPASMS 08/16/16 [History Last Taken 04/22/21] acetaminophen 325 mg tablet 650 mg PO Q4H PRN PRN Pain 03/01/18 [History Last Taken 04/21/21] bisacodyl 10 mg rectal suppository 10 mg NM QHS PRN Constipation 03/01/18 [History Last Taken 04/21/21] omeprazole 20 mg capsule,delayed release 20 mg PO LUNCH 03/01/18 [History Last Taken 04/22/21] furosemide 40 mg tablet 40 mg PO BREAKFAST 05/26/18 [History Last Taken 04/22/21] sennosides 8.6 mg tablet 17.2 mg PO BID 08/16/18 [History Last Taken 04/22/21] trimethoprim 100 mg tablet 100 mg PO 1500 08/16/18 [History Last Taken 04/22/21] cholecalciferol (vitamin D3) 50 mcg (2,000 unit) capsule 2,000 unit PO LUNCH SUPPLEMENT 08/08/19 [History Last Taken 04/22/21] oxycodone 5 mg tablet 5 mg PO Q8H PRN Severe Pain (Scale Score 7-10) 08/08/19 [History Last Taken 04/22/21] polyethylene glycol 3350 17 gram oral powder packet 17 gm PO QHS 08/08/19 [History Last Taken 04/21/21] docusate sodium 100 mg capsule (Colace) 200 mg PO QHS 10/11/20 [History Last Taken 04/21/21] furosemide 20 mg tablet 20 mg PO LUNCH 04/21/21 [History Last Taken 04/22/21] oxycodone 10 mg tablet,crush resistant,extended release 12 hr (OxyContin) 10 mg PO Q12H 04/21/21 [History Last Taken 04/22/21] acetaminophen 650 mg rectal suppository 650 mg NM Q4H PRN Pain 04/22/21 [History Last Taken 04/22/21] buspirone 7.5 mg tablet 10 mg PO TID 04/22/21 [History Last Taken 04/22/21] ferrous gluconate 240 mg (27 mg iron) tablet 240 mg PO DAILY 04/22/21 [History Last Taken 04/22/21] gabapentin 800 mg tablet 1,600 mg PO TID NEUROPATHY 04/22/21 [History Last Taken 04/22/21] isosorbide mononitrate 30 mg tablet,extended release 24 hr 30 mg PO QHS 04/22/21 [History Last Taken 04/21/21] oxybutynin chloride 10 mg tablet,extended release 24 hr 30 mg PO DAILY BLADDER 04/22/21 [History Last Taken 04/22/21] potassium chloride 10 mEq capsule,extended release 10 meq PO DAILY 04/22/21 [History Last Taken 04/22/21] phenazopyridine 200 mg tablet (Pyridium) 200 mg PO TID PRN Bladder Spasms 05/27/21 [History Last Taken Unknown] guaifenesin 600 mg tablet,extended release 600 mg PO BID PRN Cough 06/03/22 [History Last Taken Unknown] melatonin 5 mg tablet 5 mg PO QHS 06/03/22 [History Last Taken Unknown] mirtazapine 30 mg tablet 30 mg PO QHS 06/03/22 [History Last Taken Unknown] paroxetine HCl 10 mg tablet 10 mg PO QHS 06/03/22 [History Last Taken Unknown] Allergy/AdvReac Type Severity Reaction Status Date / Time apixaban [From Eliquis] Allergy Rash Verified 01/09/22 09:50 coconut oil Allergy cant breath Verified 01/09/22 09:50 mometasone furoate Allergy Rash Verified 01/09/22 09:50 [From Elocon] nitrofurantoin Allergy Unknown Verified 01/09/22 09:50 rivaroxaban [From Xarelto] Allergy Rash Verified 01/09/22 09:50 Sulfa (Sulfonamide Allergy Shortness Verified 01/09/22 09:50 Antibiotics) of breath Penicillins AdvReac NEEDS Verified 01/09/22 09:50 FOLLOW-UP Family History Mother Diabetes Grandfather CAD (coronary artery disease) Colon cancer Grandmother Breast cancer Aunt Ovarian cancer Surgical History History of tracheostomy (2010) Social History Smoking Status: Never smoker ROS ROS ED Review of Systems ROS Unobtainable: due to mental status EXAM Physical Exam Const Vital Signs: 06/03/22 06:00 06/03/22 06:14 Temperature 96.8 F L Temperature Source Temporal Pulse Rate 59 L Respiratory Rate 11 L Blood Pressure 95/60 Blood Pressure Mean 71 Pulse Ox 92 90 Oxygen Delivery Method Nasal Cannula Nasal Cannula Oxygen Flow Rate (L/min) 2 2 Positive well nourished, well developed and obese General Appearance ED: well developed Nutritional Appearance: obese HEENT Reports moist mucous membranes Neck supple and no JVD Resp normal respiratory effort and clear to auscultation bilaterally Cardio regular rate and regular rhythm GI non-tender and non-distended Palpation: soft Neuro Sensorium / Orientation: lethargic Skin no rashes or lesions noted MDM MDM MDM Narrative Medical decision making narrative: Patient was given IV fluids. EKG was obtained. On my interpretation, it showed a normal sinus rhythm with a rate of 59. NM interval, QRS interval, and QTc intervals were all normal. [place] was normal. There are no acute ST or T wave changes. CBC showed a mild anemia with a hemoglobin of 10.7 and hematocrit 35.3. Comprehensive metabolic profile was obtained and was essentially within normal limits. Lactate was normal. Urinalysis shows leukocyte esterase of 500 with positive nitrites. There were greater than 100 white blood cells. There is 4+ bacteria. There were 10-25 red blood cells. Blood cultures were obtained. Urine culture was obtained. Patient was given a dose of Rocephin here. Chest x-ray was obtained. There is 1 view. On my interpretation, there is a left-sided infiltrate. There is a questionable effusion. There is cardiomegaly noted. Bony thorax is normal. Radiologist interpretation is pending. CT scan of the brain was obtained and is pending. COVID-19 rapid antigen was obtained and was negative. Influenza A and influenza B rapid antigens were negative. Care of the patient was turned over to the oncoming physician. Patient will likely need to be admitted. Lab Data Attestation: I reviewed the patient's lab results. Labs: Laboratory Results - last 24 hr 06/03/22 06/03/22 06/03/22 06:15 06:15 06:15 WBC 7.9 RBC 4.04 L Hgb 10.7 L Hct 35.3 L MCV 87.4 MCH 26.5 L MCHC 30.3 L RDW Std Deviation 50.6 H RDW Coeff of Juan Antonio 15.8 H Plt Count 363 MPV 8.8 Immature Gran % (Auto) 0.500 Neut % (Auto) 52.3 Lymph % (Auto) 36.2 [place] % (Auto) 6.8 Eos % (Auto) 3.7 Baso % (Auto) 0.5 Absolute Neuts (auto) 4.1 Absolute Lymphs (auto) 2.86 Nucleated RBC % 0 Sodium 138 Potassium 3.8 Chloride 102 Carbon Dioxide 31.0 Anion Gap 5 BUN 20 H Creatinine 0.40 L Estim Creat Clear Calc 142.28 Est GFR (MDRD) Af Amer 216 Est GFR (MDRD) Non-Af 178 BUN/Creatinine Ratio 49.4 H Glucose 127 H Lactic Acid 0.8 Calcium 8.7 Total Bilirubin 0.20 AST 39 H ALT 69 H Alkaline Phosphatase 96 Total Protein 7.6 Albumin 2.9 L Globulin 4.7 H Albumin/Globulin Ratio 0.6 L Urine Color Urine Clarity Urine pH Ur Specific [place] Urine Protein Urine Glucose (UA) Urine Ketones Urine Occult Blood Urine Nitrite Urine Bilirubin Urine Urobilinogen Ur Leukocyte Esterase Urine RBC Urine WBC Ur Squamous Epith Cells Ur Transition Epith Cell Ur Renal Epithelial Cell Triple Phos Crystals Amorphous Sediment Urine Bacteria Urine Mucus 06/03/22 06:30 WBC RBC Hgb Hct MCV MCH MCHC RDW Std Deviation RDW Coeff of Juan Antonio Plt Count MPV Immature Gran % (Auto) Neut % (Auto) Lymph % (Auto) [place] % (Auto) Eos % (Auto) Baso % (Auto) Absolute Neuts (auto) Absolute Lymphs (auto) Nucleated RBC % Sodium Potassium Chloride Carbon Dioxide Anion Gap BUN Creatinine Estim Creat Clear Calc Est GFR (MDRD) Af Amer Est GFR (MDRD) Non-Af BUN/Creatinine Ratio Glucose Lactic Acid Calcium Total Bilirubin AST ALT Alkaline Phosphatase Total Protein Albumin Globulin Albumin/Globulin Ratio Urine Color Yellow Urine Clarity Cloudy Urine pH 7.0 Ur Specific [place] 1.015 Urine Protein 100 H Urine Glucose (UA) Normal Urine Ketones 15 H Urine Occult Blood 150 H Urine Nitrite Positive H Urine Bilirubin 3 H Urine Urobilinogen 4 H Ur Leukocyte Esterase 500 H Urine RBC 10-25 SEEN Urine WBC >100 SEEN Ur Squamous Epith Cells 0-5 SEEN Ur Transition Epith Cell 0-5 SEEN Ur Renal Epithelial Cell 0-5 SEEN Triple Phos Crystals 1+ Amorphous Sediment 2+ Urine Bacteria 4+ Urine Mucus 0 SEEN Radiography Chest X-Ray - ED: 1 View, Read by ED Physician, Read by Radiologist and Left Infiltrate EKG Initial EKG: Attestation: I personally reviewed and interpreted this EKG as follows: Interpretation: Sinus Rhythm (59) and No Acute Injury Pattern Prior EKG tracings: available for review Prior: Unchanged (04/21/2021) Discharge Plan Triage Chief Complaint: Alt LOC ED Provider: [place] Dx/Rx/DC Orders Clinical Impression: Encephalopathy, Urinary tract infection Prescriptions: No Action levothyroxine 75 MCG tablet 75 mcg PO DAILY Label Comments: HYPOTHYROIDISM duloxetine 60 MG capsule,delayed release(DR/EC) 90 mg PO QHS Label Comments: ANXIETY baclofen 10 MG tablet 40 mg PO Q6H acetaminophen 325 MG tablet 650 mg PO Q4H PRN PRN (Reason: Pain) bisacodyl 10 MG suppository 10 mg NM QHS PRN (Reason: Constipation) omeprazole 20 MG capsule,delayed release(DR/EC) 20 mg PO LUNCH furosemide 40 MG tablet 40 mg PO BREAKFAST sennosides 8.6 MG tablet 17.2 mg PO BID trimethoprim 100 MG tablet 100 mg PO 1500 polyethylene glycol 3350 17 GM packet 17 gm PO QHS oxycodone 5 MG tablet 5 mg PO Q8H PRN (Reason: Severe Pain (Scale Score 7-10)) cholecalciferol (vitamin D3) 2,000 UNIT capsule 2,000 unit PO LUNCH docusate sodium [Colace] 100 mg Capsule 200 mg PO QHS furosemide 20 mg Tablet 20 mg PO LUNCH oxycodone [OxyContin] 10 mg Tablet,Oral Only,Ext.Rel.12 Hr 10 mg PO Q12H isosorbide mononitrate 30 mg Tablet Extended Release 24 Hr 30 mg PO QHS potassium chloride 10 mEq Capsule, Extended Release 10 meq PO DAILY acetaminophen 650 mg Suppository 650 mg NM Q4H PRN (Reason: Pain) oxybutynin chloride 10 mg Tablet Extended Release 24hr 30 mg PO DAILY gabapentin 800 mg Tablet 1,600 mg PO TID ferrous gluconate 240 mg (27 mg iron) Tablet 240 mg PO DAILY buspirone 7.5 mg Tablet 10 mg PO TID phenazopyridine [Pyridium] 200 mg Tablet 200 mg PO TID PRN (Reason: Bladder Spasms) guaifenesin 600 mg Tablet Extended Release 600 mg PO BID PRN (Reason: Cough) melatonin 5 mg Tablet 5 mg PO QHS mirtazapine 30 mg Tablet 30 mg PO QHS Primary Care Provider: Lavon Vicente Referrals: Lavon Vicente MD [Primary Care Provider] -
[2022-06-03 06:28] LABS: Absolute Lymphocyte Count 2.86 X10^3/uL (0.83-4.51); Absolute Neutrophil Count 4.1 X10^3/uL (2.0-7.7); Basophil# 0.04 X10^3/uL; Basophil% 0.5 % (0-1); Eosinophil# 0.29 X10^3/uL; Eosinophils% 3.7 % (0-5); Hematocrit 35.3 % (37-47); Hemoglobin 10.7 g/dL (12.0-15.0); Lymphocyte # 2.86 X10^3/ul (0.83-4.51); Lymphocyte % 36.2 % (19-41); Mean Corp Hgb Conc 30.3 g/dL (32-36); Mean Corpuscular Hgb 26.5 pg (27.0-32.0); Mean Corpuscular Volume 87.4 fL (81-99); Mean Platelet Vol. 8.8 fl (6.2-12.0); Monocyte# 0.54 X10^3/uL; Monocyte% 6.8 % (0-10); NRBC Flagged by Analyzer 0 % (0-5); Neutrophil # 4.13 X10^3/uL (2.7-7.7); Neutrophil % 52.3 % (47-70); Platelet Count 363 K/mm3 (150-450); RBC Distribution Width CV 15.8 % (11.6-14.6); RBC Distribution Width SD 50.6 fl (35.1-43.9); Red Blood Count 4.04 M/mm3 (4.2-5.4); White Blood Count 7.9 K/mm3 (4.4-11.0)
[2022-06-03 06:38] LABS: Mucous, Urine 0 SEEN /hpf (<or=2+)
[2022-06-03 06:44] LABS: Color, Urine Yellow (Yellow); Glucose, Dipstick Normal (Normal); Ketone-Dipstick 15 mg/dl (Negative); Leukocyte Esterase-Dipstick 500 /ul (Negative); Nitrite-Dipstick Positive (Negative); Occult Blood-Urine 150 /ul (Negative); Protein-Dipstick 100 mg/dl (Negative); Specific Gravity, Urine 1.015 (1.002-1.030); Urine Bilirubin Dipstick 3 mg/dL (Negative); Urine Clarity Cloudy (Clear); Urine Urobilinogen 4 mg/dl (Normal)
[2022-06-03 06:47] LABS: ALB/GLOB Ratio 0.6 RATIO (0.9-2.4); AST(SGOT) 39 U/L (15-37); Alanine Aminotransfer ALT/SGPT 69 U/L (13-56); Albumin, Serum 2.9 g/dL (3.2-5.0); Alkaline Phosphatase 96 U/L (45-117); Anion Gap 5 (5-15); BUN 20 mg/dL (7-18); BUN/Creat Ratio 49.4 RATIO (10-20); Calcium,Total 8.7 mg/dL (8.5-10.1); Chloride 102 mmol/L (98-107); EST Glomerular Filtration Rate 178 mL/min (>60); Est Glom Filt Rate - Afr Amer 216 mL/min (>60); Estimated Creatinine Clearance 142.28 ml/min; Globulin 4.7 g/dL (2.2-4.2); Glucose 127 mg/dL (74-106); Potassium 3.8 mmol/L (3.5-5.1); Protein, Total 7.6 g/dL (6.4-8.2); Sodium Level 138 mmol/L (136-145)
[2022-06-03 06:51] LABS: Lactic Acid 0.8 mmol/L (0.4-1.9)
[2022-06-03 07:05] LABS: Amorphous Sediment 2+; Bacteria 4+ /hpf (None Seen); Red Blood Cells-Urine 10-25 SEEN /hpf (0-5); Squamous Epithelial Cells - UA 0-5 SEEN /hpf (5-10); Triple Phosphate Crystals Ur 1+ /hpf (<or=1+); White Blood Cells >100 SEEN /hpf (0-5)
[2022-06-03 07:06] LABS: Renal Epithelial Cells 0-5 SEEN /hpf (0-5); Transitional Epithelial - Ur 0-5 SEEN /hpf (0-5)
[2022-06-03 07:09] LABS: International Normalized Ratio 1.2; Prothrombin Time (Protime)PT. 14.6 SECONDS (11.7-14.9)
[2022-06-03 07:10] LABS: Partial Thromboplast Time 34.1 Seconds (24.1-36.2)
[2022-06-03] MEDS: Ceftriaxone 1 GM/50 ML BAG IV (07:11)
--- NOTE | 2022-06-03 07:50 | NURSING ---
DR MAYELA SAXENA
--- NOTE | 2022-06-03 08:00 | NURSING ---
MED SURG NUAMAH ENCEPHALOPATHY, UTI, PNEUMONIA
--- NOTE | 2022-06-03 08:00 | NURSING ---
CV ICU 204
--- NOTE | 2022-06-03 08:02 | HP.PCM.HOS_ITS ---
HPI - General General Date of Admission: 06/03/22 Date of Service: 06/03/22 Chief Complaint: Altered mental status HPI Narrative HENRIK GARCIA, is a 47 F who presents with the above that was noted on the morning of admission. Patient was said to be unresponsive in the [place] [facility]. Patient has history of quadriplegia, recurrent history of UTI. She is at the moment alert oriented to self. She has a history of Proteus UTI. Her vitals in the ED showed blood pressure of 95/60, heart rate 59, respiratory rate 11, temperature 96.8 F, oxygen sat is 92% on 2 L of oxygen. WBC count is 7.9, hemoglobin 10.7, platelet count 363, INR 1.2, CMP is unremarkable. UA was cloudy, nitrite positive, leukocyte esterase positive, WBC more than 100. CT of the brain was unremarkable. Admitting chest x-ray showed diffuse increased density in the left mid and lower hemithorax. [facility] Medical History Abnormal EKG Chronic headaches Chronic pain Cocaine abuse Deep vein thrombosis of right lower extremity Depression Exogenous obesity Heroin use History of Rqchh-Gtksxtalp-Gslht (WPW) syndrome Hx: UTI (urinary tract infection) Hypothyroidism Left femoral shaft fracture Malnutrition of mild degree Neuromuscular dysfunction of bladder Paraplegia Pre-operative cardiovascular exam, new EKG abnormalities c/w ischemia Quadriparesis Right ischial pressure sore, stage 4 Spinal cord injury (2010) Suprapubic catheter Home Medications levothyroxine 75 mcg tablet 75 mcg PO DAILY 05/28/15 [History Last Taken 04/22/21] duloxetine 60 mg capsule,delayed release 90 mg PO QHS 08/21/15 [History Last Taken 04/21/21] baclofen 10 mg tablet 40 mg PO Q6H SPASMS 08/16/16 [History Last Taken 04/22/21] acetaminophen 325 mg tablet 650 mg PO Q4H PRN PRN Pain 03/01/18 [History Last Taken 04/21/21] bisacodyl 10 mg rectal suppository 10 mg MI QHS PRN Constipation 03/01/18 [History Last Taken 04/21/21] omeprazole 20 mg capsule,delayed release 20 mg PO LUNCH 03/01/18 [History Last Taken 04/22/21] furosemide 40 mg tablet 40 mg PO BREAKFAST 05/26/18 [History Last Taken 04/22/21] sennosides 8.6 mg tablet 17.2 mg PO BID 08/16/18 [History Last Taken 04/22/21] trimethoprim 100 mg tablet 100 mg PO 1500 08/16/18 [History Last Taken 04/22/21] cholecalciferol (vitamin D3) 50 mcg (2,000 unit) capsule 2,000 unit PO LUNCH SUPPLEMENT 08/08/19 [History Last Taken 04/22/21] oxycodone 5 mg tablet 5 mg PO Q8H PRN Severe Pain (Scale Score 7-10) 08/08/19 [History Last Taken 04/22/21] polyethylene glycol 3350 17 gram oral powder packet 17 gm PO QHS 08/08/19 [History Last Taken 04/21/21] docusate sodium 100 mg capsule (Colace) 200 mg PO QHS 10/11/20 [History Last Taken 04/21/21] furosemide 20 mg tablet 20 mg PO LUNCH 04/21/21 [History Last Taken 04/22/21] oxycodone 10 mg tablet,crush resistant,extended release 12 hr (OxyContin) 10 mg PO Q12H 04/21/21 [History Last Taken 04/22/21] acetaminophen 650 mg rectal suppository 650 mg MI Q4H PRN Pain 04/22/21 [History Last Taken 04/22/21] buspirone 7.5 mg tablet 10 mg PO TID 04/22/21 [History Last Taken 04/22/21] ferrous gluconate 240 mg (27 mg iron) tablet 240 mg PO DAILY 04/22/21 [History Last Taken 04/22/21] gabapentin 800 mg tablet 1,600 mg PO TID NEUROPATHY 04/22/21 [History Last Taken 04/22/21] isosorbide mononitrate 30 mg tablet,extended release 24 hr 30 mg PO QHS 04/22/21 [History Last Taken 04/21/21] oxybutynin chloride 10 mg tablet,extended release 24 hr 30 mg PO DAILY BLADDER 04/22/21 [History Last Taken 04/22/21] potassium chloride 10 mEq capsule,extended release 10 meq PO DAILY 04/22/21 [History Last Taken 04/22/21] phenazopyridine 200 mg tablet (Pyridium) 200 mg PO TID PRN Bladder Spasms 05/27/21 [History Last Taken Unknown] diphenhydramine HCl 25 mg capsule (Benadryl) 25 mg PO TID PRN ITCHING 06/03/22 [History Last Taken Unknown] diphenhydramine HCl 25 mg tablet (Benadryl Allergy) 25 mg PO Q6H PRN Itching 06/03/22 [History Last Taken Unknown] guaifenesin 600 mg tablet,extended release 600 mg PO BID PRN Cough 06/03/22 [History Last Taken Unknown] ibuprofen 600 mg tablet 600 mg PO Q6H PRN Pain 06/03/22 [History Last Taken Unknown] loperamide 2 mg tablet 1 mg PO Q4H PRN Diarrhea 06/03/22 [History Last Taken Unknown] magnesium hydroxide 400 mg/5 mL oral suspension (Milk of Magnesia) 30 ml PO DAILY PRN Constipation 06/03/22 [History Last Taken Unknown] melatonin 5 mg tablet 5 mg PO QHS 06/03/22 [History Last Taken Unknown] mirtazapine 30 mg tablet 30 mg PO QHS 06/03/22 [History Last Taken Unknown] ondansetron HCl 4 mg tablet 4 mg PO Q4H PRN Nausea 06/03/22 [History Last Taken Unknown] paroxetine HCl 10 mg tablet 10 mg PO QHS 06/03/22 [History Last Taken Unknown] simethicone 80 mg tablet 80 mg PO DAILY PRN Gastric Reflux 06/03/22 [History Last Taken Unknown] Allergy/AdvReac Type Severity Reaction Status Date / Time apixaban [From Eliquis] Allergy Rash Verified 01/09/22 09:50 coconut oil Allergy cant breath Verified 01/09/22 09:50 mometasone furoate Allergy Rash Verified 01/09/22 09:50 [From Elocon] nitrofurantoin Allergy Unknown Verified 01/09/22 09:50 rivaroxaban [From Xarelto] Allergy Rash Verified 01/09/22 09:50 Sulfa (Sulfonamide Allergy Shortness Verified 01/09/22 09:50 Antibiotics) of breath Penicillins AdvReac NEEDS Verified 01/09/22 09:50 FOLLOW-UP Family History Mother Diabetes Grandfather CAD (coronary artery disease) Colon cancer Grandmother Breast cancer Aunt Ovarian cancer Surgical History History of tracheostomy (2010) Social History Smoking Status: Never smoker ROS Review of Systems ROS Unobtainable: due to encephalopathy Vital Signs Vital Signs Vital Signs: 06/03/22 06:00 06/03/22 06:14 06/03/22 07:33 Temperature 96.8 F L Temperature Source Temporal Pulse Rate 59 L Respiratory Rate 11 L Blood Pressure 95/60 121/64 H Blood Pressure Mean 71 83 Pulse Ox 92 90 Oxygen Delivery Method Nasal Cannula Nasal Cannula Oxygen Flow Rate (L/min) 2 2 Weight Weight: 113.9 kg Body Mass Index (BMI) 44.4 Physical Exam Narrative Physical exam: General: Alert, Oriented only to self, morbidly obese, pale, no jaundice HEENT: Atraumatic Oral: Moist Mucosa Neck: Supple Lungs: Diminished to auscultation Cardiovascular: HS I+II, regular, no murmurs Abdomen: Bowel Sounds Present, Soft, Non Tender Extremities: Bilateral pedal edema +1, deformity of both feet Skin: No rashes, No breakdown Neurological: Quadriplegic Psych/Mental Status: Appropriate Results Lab / Micro Data Result Diagrams: 06/03/22 06:15 06/03/22 06:15 Labs: Laboratory Results - last 24 hr 06/03/22 06:15: WBC 7.9, RBC 4.04 L, Hgb 10.7 L, Hct 35.3 L, MCV 87.4, MCH 26.5 L, MCHC 30.3 L, RDW Std Deviation 50.6 H, RDW Coeff of Juan Antonio 15.8 H, Plt Count 363, MPV 8.8, Immature Gran % (Auto) 0.500, Neut % (Auto) 52.3, Lymph % (Auto) 36.2, [place] % (Auto) 6.8, Eos % (Auto) 3.7, Baso % (Auto) 0.5, Absolute Neuts (auto) 4.1, Absolute Lymphs (auto) 2.86, Nucleated RBC % 0 06/03/22 06:15: PT 14.6, INR 1.2, APTT 34.1 06/03/22 06:15: Sodium 138, Potassium 3.8, Chloride 102, Carbon Dioxide 31.0, Anion Gap 5, BUN 20 H, Creatinine 0.40 L, Estim Creat Clear Calc 142.28, Est GFR (MDRD) Af Amer 216, Est GFR (MDRD) Non-Af 178, BUN/Creatinine Ratio 49.4 H, Glucose 127 H, Calcium 8.7, Total Bilirubin 0.20, AST 39 H, ALT 69 H, Alkaline Phosphatase 96, Total Protein 7.6, Albumin 2.9 L, Globulin 4.7 H, A lbumin/Globulin Ratio 0.6 L 06/03/22 06:15: Lactic Acid 0.8 06/03/22 06:30: Urine Color Yellow, Urine Clarity Cloudy, Urine pH 7.0, Ur Specific [place] 1.015, Urine Protein 100 H, Urine Glucose (UA) Normal, Urine Ketones 15 H, Urine Occult Blood 150 H, Urine Nitrite Positive H, Urine Bilirubin 3 H, Urine Urobilinogen 4 H, Ur Leukocyte Esterase 500 H, Urine RBC 10-25 SEEN, Urine WBC >100 SEEN, Ur Squamous Epith Cells 0-5 SEEN, Ur Transition Epith Cell 0-5 SEEN, Ur Renal Epithelial Cell 0-5 SEEN, Triple Phos Crystals 1+, Amorphous Sediment 2+, Urine Bacteria 4+, Urine Mucus 0 SEEN Micro: Microbiology 06/03/22 06:30 Nasal Secretion SARS-CoV-2 & FLU Antigen (Rapid) - Final Radiology Impression Brain CT 06/03/22 06:14 IMPRESSION: Negative head/brain CT without intravenous contrast. Electronically Signed: Juan Luis Todd MD at 7:16 EST , Chest X-Ray 06/03/22 06:14 IMPRESSION: Diffuse increased density left mid and lower hemithorax. This may in part be due to artifact from rotation but consolidation cannot be excluded. Right lung is clear. Electronically Signed: Juan Luis Todd MD at 7:13 EST , Assessment & Plan Assessment/Plan (1) Altered mental status: QUALIFIERS: Altered mental status type: somnolence Qualified Code(s): R40.0 - Somnolence PLAN: Plan 1. Acute metabolic encephalopathy secondary to acute UTI/acute pneumonia We will hold Benadryl, gabapentin, Remeron, melatonin, baclofen, cymbalta, oxybutynin on home med list Will continue to monitor 2. Acute left-sided pneumonia, without hypoxia Chest x-ray shows left-sided pneumonia Started on IV ceftriaxone and doxycycline; will continue same Check urine Legionella and streptococcal antigen 3. Acute UTI , admitting UA suggestive of acute UTI. History of Proteus UTI, continue on IV ceftriaxone Follow-up on urine cultures 4. Hypothyroidism, continue on Synthroid 5. Anxiety/depression, continue Paxil 6. Morbid obesity, BMI 50.0, patient may be a candidate for referral to obesity clinic 7. Quadriplegia, bedbound, complicates care 8. DVT PPx- Lovenox SC Charges/Coding Visit Charges Inpatient E&M: 89667 Init Hosp L3
--- NOTE | 2022-06-03 08:57 | NURSING ---
removed buprenorphine patch from left shoulder from ECF, flushed down the toilet with Nathaniel Cifuentes RN witness.
[2022-06-03] MEDS: 0.9% Normal Saline 1,000 ML 75 ML IV ×2 (09:19→22:08)
[2022-06-03] MEDS: Enoxaparin 40 MG/0.4 ML Syringe SC (12:46)
[2022-06-03] MEDS: busPIRone 5 MG Tablet 10 MG PO ×2 (12:46→22:12)
[2022-06-03] MEDS: Levothyroxine 75 MCG Tablet PO (12:46)
[2022-06-03] MEDS: Pantoprazole Sodium 20 MG Tablet PO (12:46)
[2022-06-03] MEDS: Cholecalciferol (VIT D3) 25 MCG TABLET (1,000 UNITS) 50 MCG PO (12:46)
[2022-06-03] MEDS: Senna Tablet 2 TABLET PO ×2 (12:46→22:12)
[2022-06-03] MEDS: Ondansetron 4 MG/2 ML Vial IV ×2 (15:39→23:42)
[2022-06-03] MEDS: PARoxetine 10 MG Tablet PO (22:12)
[2022-06-03] MEDS: Polyethylene Glycol 3350 17 GM PACKET PO (22:13)
[2022-06-03] MEDS: Docusate Sodium 100 MG Capsule 200 MG PO (22:13)
[2022-06-03] MEDS: Isosorbide Mononitrate 30 MG Tablet PO (22:13)
[2022-06-04] VITALS (8 sets, daily range): BP systolic 101–171; BP diastolic 59–98; PULSE 93–110; RESP 16–20; TEMP 35.8–37.2; O2SAT 86–94
[2022-06-04] MEDS: hydrALAZINE 20 MG/ML Vial 5 MG IV (03:05)
[2022-06-04 03:30] LABS: Absolute Lymphocyte Count 2.27 X10^3/uL (0.83-4.51); Absolute Neutrophil Count 3.7 X10^3/uL (2.0-7.7); Basophil# 0.04 X10^3/uL; Basophil% 0.6 % (0-1); Eosinophil# 0.25 X10^3/uL; Eosinophils% 3.7 % (0-5); Hematocrit 33.4 % (37-47); Hemoglobin 9.9 g/dL (12.0-15.0); Lymphocyte # 2.27 X10^3/ul (0.83-4.51); Lymphocyte % 33.2 % (19-41); Mean Corp Hgb Conc 29.6 g/dL (32-36); Mean Corpuscular Hgb 26.2 pg (27.0-32.0); Mean Corpuscular Volume 88.4 fL (81-99); Mean Platelet Vol. 9.2 fl (6.2-12.0); Monocyte# 0.54 X10^3/uL; Monocyte% 7.9 % (0-10); NRBC Flagged by Analyzer 0 % (0-5); Neutrophil # 3.71 X10^3/uL (2.7-7.7); Neutrophil % 54.3 % (47-70); Platelet Count 331 K/mm3 (150-450); RBC Distribution Width CV 15.9 % (11.6-14.6); RBC Distribution Width SD 51.3 fl (35.1-43.9); Red Blood Count 3.78 M/mm3 (4.2-5.4); White Blood Count 6.8 K/mm3 (4.4-11.0)
[2022-06-04 04:11] LABS: ALB/GLOB Ratio 0.6 RATIO (0.9-2.4); AST(SGOT) 53 U/L (15-37); Alanine Aminotransfer ALT/SGPT 59 U/L (13-56); Albumin, Serum 2.8 g/dL (3.2-5.0); Alkaline Phosphatase 87 U/L (45-117); Anion Gap 5 (5-15); BUN 17 mg/dL (7-18); BUN/Creat Ratio 61.2 RATIO (10-20); Calcium,Total 8.6 mg/dL (8.5-10.1); Chloride 105 mmol/L (98-107); Creatinine, Serum 0.28 mg/dL (0.55-1.02); EST Glomerular Filtration Rate 275 mL/min (>60); Est Glom Filt Rate - Afr Amer 333 mL/min (>60); Estimated Creatinine Clearance 176.49 ml/min; Globulin 4.4 g/dL (2.2-4.2); Glucose 122 mg/dL (74-106); Potassium 4.1 mmol/L (3.5-5.1); Protein, Total 7.2 g/dL (6.4-8.2); Sodium Level 139 mmol/L (136-145)
[2022-06-04] MEDS: Levothyroxine 75 MCG Tablet PO (05:06)
[2022-06-04] MEDS: busPIRone 5 MG Tablet 10 MG PO ×3 (05:06→20:38)
[2022-06-04] MEDS: Enoxaparin 40 MG/0.4 ML Syringe SC (08:58)
[2022-06-04] MEDS: Senna Tablet 2 TABLET PO ×2 (08:59→20:39)
[2022-06-04] MEDS: Ceftriaxone 1 GM/50 ML BAG IV (09:02)
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
[2022-06-04] MEDS: Gabapentin 800 MG Tablet 1600 MG PO ×3 (09:44→20:42)
--- NOTE | 2022-06-04 11:11 | CASEMGMT ---
SW Note SW met with patient's RN Nirmala and inquired about patient's orientation. RN reported patient was oriented x3 and [place] [facility] [place] SW met with patient and introduced herself and role as [facility] at [facility]. SW inquired about patient's living arrangements and length of stay at [facility]. Patient explained she has lived at [facility] since 2017 and wanted to return there. SW explained she would contact [facility] and provide updates regarding patient's stay at [facility]. SW also explained the plan for discharge at this moment was for tomorrow. Patient stated she was ready to go back today but understood she needed to be medically ready before discharge. Updates sent to [facility] via [employer]. Plan: Return to [facility] Sparkle SALGADO,JUNIOR
[2022-06-04] MEDS: Pantoprazole Sodium 20 MG Tablet PO (12:04)
[2022-06-04] MEDS: Ondansetron 4 MG/2 ML Vial IV ×2 (12:04→20:38)
[2022-06-04] MEDS: 0.9% Saline Lock 10 ML Syringe IV ×2 (12:05→20:38)
[2022-06-04] MEDS: Cholecalciferol (VIT D3) 25 MCG TABLET (1,000 UNITS) 50 MCG PO (12:05)
[2022-06-04] MEDS: Polyethylene Glycol 3350 17 GM PACKET PO (20:36)
[2022-06-04] MEDS: Isosorbide Mononitrate 30 MG Tablet PO (20:38)
[2022-06-04] MEDS: PARoxetine 10 MG Tablet PO (20:38)
[2022-06-05 03:13] VITALS: BP 97/39; PULSE 92; RESP 20; TEMP 36.8; O2SAT 94
[2022-06-05 05:26] LABS: Absolute Lymphocyte Count 2.91 X10^3/uL (0.83-4.51); Absolute Neutrophil Count 3.7 X10^3/uL (2.0-7.7); Basophil# 0.05 X10^3/uL; Basophil% 0.7 % (0-1); Eosinophil# 0.21 X10^3/uL; Eosinophils% 2.8 % (0-5); Hematocrit 33.7 % (37-47); Hemoglobin 10.4 g/dL (12.0-15.0); Lymphocyte # 2.91 X10^3/ul (0.83-4.51); Lymphocyte % 38.7 % (19-41); Mean Corp Hgb Conc 30.9 g/dL (32-36); Mean Corpuscular Hgb 27.1 pg (27.0-32.0); Mean Corpuscular Volume 87.8 fL (81-99); Mean Platelet Vol. 8.7 fl (6.2-12.0); Monocyte# 0.57 X10^3/uL; Monocyte% 7.6 % (0-10); NRBC Flagged by Analyzer 0.3 % (0-5); Neutrophil # 3.74 X10^3/uL (2.7-7.7); Neutrophil % 49.7 % (47-70); Platelet Count 313 K/mm3 (150-450); RBC Distribution Width CV 15.7 % (11.6-14.6); RBC Distribution Width SD 50.2 fl (35.1-43.9); Red Blood Count 3.84 M/mm3 (4.2-5.4); White Blood Count 7.5 K/mm3 (4.4-11.0)
[2022-06-05 05:55] LABS: ALB/GLOB Ratio 0.6 RATIO (0.9-2.4); AST(SGOT) 27 U/L (15-37); Alanine Aminotransfer ALT/SGPT 56 U/L (13-56); Albumin, Serum 2.8 g/dL (3.2-5.0); Alkaline Phosphatase 83 U/L (45-117); Anion Gap 7 (5-15); BUN 9 mg/dL (7-18); BUN/Creat Ratio 20.1 RATIO (10-20); Calcium,Total 8.7 mg/dL (8.5-10.1); Chloride 104 mmol/L (98-107); Creatinine, Serum 0.45 mg/dL (0.55-1.02); EST Glomerular Filtration Rate 159 mL/min (>60); Est Glom Filt Rate - Afr Amer 192 mL/min (>60); Estimated Creatinine Clearance 109.82 ml/min; Globulin 4.6 g/dL (2.2-4.2); Glucose 142 mg/dL (74-106); Potassium 3.6 mmol/L (3.5-5.1); Protein, Total 7.4 g/dL (6.4-8.2); Sodium Level 138 mmol/L (136-145)
[2022-06-05] MEDS: busPIRone 5 MG Tablet 10 MG PO (07:07)
[2022-06-05] MEDS: Levothyroxine 75 MCG Tablet PO (07:07)
[2022-06-05] MEDS: Ondansetron 4 MG/2 ML Vial IV (07:07)
[2022-06-05] MEDS: 0.9% Saline Lock 10 ML Syringe IV ×2 (07:10→09:40)
[2022-06-05] MEDS: Gabapentin 800 MG Tablet 1600 MG PO (07:13)
[2022-06-05 08:52] VITALS: O2SAT 95
[2022-06-05] MEDS: Senna Tablet 2 TABLET PO (09:43)
[2022-06-05 09:47] VITALS: BP 116/69; PULSE 100; RESP 18; TEMP 36.6; O2SAT 94
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
[2022-06-05] MEDS: oxyCODONE 5 MG Tablet 10 MG PO (10:47)
--- NOTE | 2022-06-05 10:52 | CASEMGMT ---
Social Work Per physician pt is ready for discharge today. Discharge orders sent to [facility] via [facility]. Transportation arranged with [facility] for [address] via cot. Nursing updated and informed pt. Pt states she will notify her family. [facility] updated on time of discharge. Disposition: [facility], intermediate level of care MARYANN Mccord
== END 2022-06-05 12:08 | disposition skilled nursing facility (03) | DRG 193 ==
LOC: ED 07:37 → ICU 08:07 → MS3 06-04 11:55
PROVIDERS: Admitting Provider Internal Medicine; Emergency Provider Emergency Medicine; PCP Family Medicine; Visit Provider Internal Medicine
DX: J18.9 Pneumonia, unspecified organism (principal); G93.41 Metabolic encephalopathy; G82.50 Quadriplegia, unspecified; Z68.43 Body mass index [BMI] 50.0-59.9, adult; N39.0 Urinary tract infection, site not specified; E66.01 Morbid (severe) obesity due to excess calories; E03.9 Hypothyroidism, unspecified; M54.9 Dorsalgia, unspecified; Z79.01 Long term (current) use of anticoagulants; G89.29 Other chronic pain; R40.0 Somnolence; B96.4 Proteus (mirabilis) (morganii) as the cause of diseases classified elsewhere; Z66 Do not resuscitate; Z51.5 Encounter for palliative care; F32.A Depression, unspecified
CPT/HCPCS: 36415; 70450; 71045; 80053; 81001; 83605; 85025; 85610; 85730; 87040; 87077; 87086; 87088; 87186; 87428; 87449; 93005; 97802; 99251; 99285; J7030; J7040; A4216; G0463; J2405

== ENCOUNTER → 2022-07-02 | Outpatient (REF) | payer MEDICARE, MEDICAID, SELFPAY ==
[2022-07-03 08:53] LABS: Color, Urine Straw (Yellow); Glucose, Dipstick Normal (Normal); Ketone-Dipstick Negative (Negative); Leukocyte Esterase-Dipstick 500 /ul (Negative); Nitrite-Dipstick Negative (Negative); Occult Blood-Urine Negative /ul (Negative); Protein-Dipstick Negative (Negative); Specific Gravity, Urine 1.005 (1.002-1.030); Urine Bilirubin Dipstick Negative (Negative); Urine Clarity Clear (Clear); Urine Urobilinogen Normal (Normal)
== END ==
LOC: OLS.SW 10:00
PROVIDERS: PCP Family Medicine; Visit Provider Family Medicine
DX: R41.82 Altered mental status, unspecified (principal)
CPT/HCPCS: 81002; 87077; 87086; 87088; 87186

== ENCOUNTER 2022-07-24 19:05 | Emergency (ER) | payer MEDICARE, MEDICAID, SELFPAY ==
[2022-07-24] VITALS (7 sets, daily range): BP systolic 91–166; BP diastolic 54–112; PULSE 80–107; RESP 12–20; TEMP 36.7–36.9; O2SAT 92–98; BMI 52.3
--- NOTE | 2022-07-24 19:14 | EKG12_ITS ---
Test Reason : EDEMA Blood Pressure : / mmHG Vent. Rate : 071 BPM Atrial Rate : 071 BPM P-R Int : 166 ms QRS Dur : 084 ms QT Int : 400 ms P-R-T Axes : 058 014 059 degrees QTc Int : 434 ms Normal sinus rhythm Normal ECG Confirmed by BRONWYN HAMILTON, BRANDON ([id number]), purchase request editor MAUREEN RAMIREZ ([id number]) on 07/27/2022 12:44:58 PM Referred By: Confirmed By:BRANDON BARNHART MD
--- NOTE | 2022-07-24 19:14 | CT_ITS ---
INDICATION: Confusion EXAMINATION: CT BRAIN - CT Head or Brain W/O Contrast Injection TECHNIQUE: Multiple axial images were obtained of the head without intravenous contrast. A radiation dose optimization technique was used for this scan. IV Contrast dosage and agent: None. COMPARISON: 06/03/2022 FINDINGS: BRAIN PARENCHYMA: No intra- or extra-axial hemorrhage. No evidence of acute infarct. No intracranial mass or mass effect. Posterior fossa structures are unremarkable. CSF SPACES: Stable. No hydrocephalus. Basal cisterns are patent. CALVARIUM, SKULL BASE, PARANASAL SINUSES AND MASTOID AIR CELLS: Scattered mucoperiosteal thickening. No discrete lytic or blastic abnormalities. ORBITS: Both globes, extraocular muscles, optic nerves and retrobulbar fat appear unremarkable. CT/Brain/Head without Contrast IMPRESSION: No acute intracranial findings. Electronically Signed: Bradley Matthews MD at 20:54 EST ,
--- NOTE | 2022-07-24 19:17 | EDS_ITS ---
HPI History of Present Illness Chief Complaint: Confusion Narrative Narrative: 47-year-old female, multiple medical problems, presents with reported confusion, and reported hypoxia. She states that she may have felt like she started feeling confused this morning. She states that she is a resident of [facility] [place], and they sent her in because they told her she was acting confused. She has had problems like this in the past when she has a urinary tract infection. In review of her EMR, she does have a suprapubic catheter. She denies any fevers or chills, but states, it spann when she urinates. Additionally, it was reported that she was hypoxic at the snf but she denies any fevers or chills. No cough or shortness of breath. She states she wears 4 L of oxygen at all times and that started when COVID-19 started in 2019. She has chronic headaches, and states she has had a headache today. She presents for evaluation of her reported confusion. 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 Hx: UTI (urinary tract infection) Hypothyroidism Left femoral shaft fracture Malnutrition of mild degree Neuromuscular dysfunction of bladder Paraplegia Pre-operative cardiovascular exam, new EKG abnormalities c/w ischemia Quadriparesis Right ischial pressure sore, stage 4 Spinal cord injury (2010) Suprapubic catheter Home Medications levothyroxine 75 mcg tablet 75 mcg PO DAILY 05/28/15 [History Last Taken 04/22/21] duloxetine 60 mg capsule,delayed release 90 mg PO QHS 08/21/15 [History Last Taken 04/21/21] baclofen 10 mg tablet 40 mg PO Q6H SPASMS 08/16/16 [History Last Taken 04/22/21] acetaminophen 325 mg tablet 650 mg PO Q4H PRN PRN Pain 03/01/18 [History Last Taken 04/21/21] bisacodyl 10 mg rectal suppository 10 mg TX QHS PRN Constipation 03/01/18 [History Last Taken 04/21/21] omeprazole 20 mg capsule,delayed release 20 mg PO LUNCH 03/01/18 [History Last Taken 04/22/21] furosemide 40 mg tablet 40 mg PO BREAKFAST 05/26/18 [History Last Taken 04/22/21] sennosides 8.6 mg tablet 17.2 mg PO BID 08/16/18 [History Last Taken 04/22/21] cholecalciferol (vitamin D3) 50 mcg (2,000 unit) capsule 2,000 unit PO LUNCH SUPPLEMENT 08/08/19 [History Last Taken 04/22/21] polyethylene glycol 3350 17 gram oral powder packet 17 gm PO QHS 08/08/19 [History Last Taken 04/21/21] docusate sodium 100 mg capsule (Colace) 200 mg PO QHS 10/11/20 [History Last Taken 04/21/21] furosemide 20 mg tablet 20 mg PO LUNCH 04/21/21 [History Last Taken 04/22/21] buspirone 7.5 mg tablet 10 mg PO TID 04/22/21 [History Last Taken 04/22/21] gabapentin 800 mg tablet 1,600 mg PO TID NEUROPATHY 04/22/21 [History Last Taken 04/22/21] isosorbide mononitrate 30 mg tablet,extended release 24 hr 30 mg PO QHS 04/22/21 [History Last Taken 04/21/21] oxybutynin chloride 10 mg tablet,extended release 24 hr 30 mg PO DAILY BLADDER 04/22/21 [History Last Taken 04/22/21] potassium chloride 10 mEq capsule,extended release 10 meq PO DAILY 04/22/21 [History Last Taken 04/22/21] phenazopyridine 200 mg tablet (Pyridium) 200 mg PO TID PRN Bladder Spasms 05/27/21 [History Last Taken Unknown] loperamide 2 mg tablet 1 mg PO Q4H PRN Diarrhea 06/03/22 [History Last Taken Unknown] magnesium hydroxide 400 mg/5 mL oral suspension (Milk of Magnesia) 30 ml PO DAILY PRN Constipation 06/03/22 [History Last Taken Unknown] melatonin 5 mg tablet 5 mg PO QHS 06/03/22 [History Last Taken Unknown] mirtazapine 30 mg tablet 30 mg PO QHS 06/03/22 [History Last Taken Unknown] ondansetron HCl 4 mg tablet 4 mg PO Q4H PRN Nausea 06/03/22 [History Last Taken Unknown] paroxetine HCl 10 mg tablet 10 mg PO QHS 06/03/22 [History Last Taken Unknown] simethicone 80 mg tablet 80 mg PO DAILY PRN Gastric Reflux 06/03/22 [History Last Taken Unknown] buprenorphine 10 mcg/hour weekly transdermal patch (Butrans) 1 patch transdermal Q7D pain 06/04/22 [History Last Taken Unknown] cefdinir 300 mg capsule 300 mg PO BID 5 days #10 caps 06/05/22 [Rx Last Taken Unknown] doxycycline monohydrate 100 mg capsule 100 mg PO BID 3 days #6 caps 06/05/22 [Rx Last Taken Unknown] Allergy/AdvReac Type Severity Reaction Status Date / Time apixaban [From Eliquis] Allergy Rash Verified 07/24/22 19:15 coconut oil Allergy cant breath Verified 07/24/22 19:15 mometasone furoate Allergy Rash Verified 07/24/22 19:15 [From Elocon] morphine Allergy NEEDS Verified 07/24/22 19:15 FOLLOW-UP nitrofurantoin Allergy Unknown Verified 07/24/22 19:15 rivaroxaban [From Xarelto] Allergy Rash Verified 07/24/22 19:15 Sulfa (Sulfonamide Allergy Shortness Verified 07/24/22 19:15 Antibiotics) of breath Penicillins AdvReac NEEDS Verified 07/24/22 19:15 FOLLOW-UP Family History Mother Diabetes Grandfather CAD (coronary artery disease) Colon cancer Grandmother Breast cancer Aunt Ovarian cancer Surgical History History of tracheostomy (2010) Social History Smoking Status: Never smoker ROS ROS ED ROS Narrative Constitutional: No fever, no chills. HEENT: No sore throat. No neck pain. No loss of vision. No rhinorrhea. Cardiovascular: No chest pain. No palpitations. No pedal edema. Respiratory: No cough, no shortness of breath. Reported hypoxia at snf facility. Abdominal: No abdominal pain. No nausea. No vomiting. Genitourinary: Positive burning with urination/dysuria. No hematuria. Musculoskeletal: No myalgias. No arthralgias. Neurologic: No headaches. No dizziness. No lightheadedness. Skin: No rash. No change in color. Psychiatric: No depression. No anxiety. EXAM Physical Exam Narrative Exam Narrative: Afebrile. Vital signs noted. HEENT: Normocephalic. Atraumatic. PERRL, EOMI. Neck soft and supple. No point tenderness or step off. Cardiovascular: Regular rate and rhythm. No murmurs, rubs, or gallops appreciated. Respiratory: No tachypnea. Lungs clear to auscultation bilaterally. Gastrointestinal: Abdomen soft, nontender, with normoactive bowel sounds. No re bound or guarding. Neurological: Awake. Alert. Oriented to person, place, and time. When asked year, initially she said 2017-psych. Nonfocal, nonlateralizing. Skin: No rash. Normal color. No pallor. Musculoskeletal: No pedal edema. Full range of motion extremities. Const Vital Signs: 07/24/22 19:06 07/24/22 19:11 07/24/22 19:11 Temperature 98.4 F 98.4 F 98.4 F Temperature Source Temporal Temporal Temporal Pulse Rate 99 107 H 107 H Respiratory Rate 18 14 18 Blood Pressure 159/104 H 159/104 H 159/104 H Blood Pressure Mean 122 122 122 Pulse Ox 98 96 97 Oxygen Delivery Method Room Air Nasal Cannula Nasal Cannula Oxygen Flow Rate (L/min) 4 4 07/24/22 20:44 07/24/22 20:44 07/24/22 21:02 Temperature 98.0 F 98.0 F Temperature Source Oral Oral Pulse Rate 105 H 104 H 102 H Respiratory Rate 13 12 17 Blood Pressure 91/65 91/65 166/107 H Blood Pressure Mean 73 73 126 Pulse Ox 92 92 92 Oxygen Delivery Method Room Air Room Air Room Air Oxygen Flow Rate (L/min) MDM MDM MDM Narrative Medical decision making narrative: Comprehensive work-up was pursued. I reviewed her laboratory work. CBC shows normal white count of 9.7 with hemoglobin normal at 12.9, hematocrit 42.6. Platelet count normal at 343. To look for electrolyte imbalance as a cause of her confusion or dehydration, I obtained a CMP and reviewed it but she has a normal sodium of 138, potassium normal at 4.7, CO2 of 25. Creatinine low at 0.39 with a normal BUN of 9. Glucose appropriately elevated at 128 with a normal anion gap of 8. In review of his AST is slightly elevated at 55 with an ALT of 45. Urinalysis from the suprapubic catheter was obtained and she has 5- 10 WBCs and 2+ bacteria with it being turbid. She may be colonized, but given her confusion, this will be sent for culture. I will start her on Keflex which she has taken in the past. However, she states that an order needs to be written instead of a prescription. I discussed patient with Dr. Vitale who will write a prescription or orders for 3 days for antibiotics to cover her while urine culture awaits. Her lactic acid is normal at 1.4 so she is not septic. To look for causes of her confusion that was reported such as hepatic encephalopathy I obtained an ammonia level which is normal and less than 10. CT of the brain was obtained. I reviewed the radiology report after my interpretation shows no evidence of acute hemorrhage, and radiology confirms no acute process. I reviewed and interpreted her chest x-ray which shows no evidence of pneumonia or pneumothorax. I reviewed the radiology report and they also confirmed that there is no acute process. At this point in time, I do feel she can be discharged back to the snf facility. Regarding her reported hypoxia, so only certain positions that she lies in, and she has been satting well on her nasal cannula oxygen here. Furthermore, I reviewed her snf paperwork independently and there is a DNR comfort care only order from the [facility]. I feel she be discharged back to the snf facility. Disposition is discharged in stable condition. Lab Data Attestation: I reviewed the patient's lab results. Labs: Laboratory Results - last 24 hr 07/24/22 07/24/22 07/24/22 19:33 20:01 20:27 WBC 9.7 RBC 4.90 Hgb 12.9 Hct 42.6 MCV 86.9 MCH 26.3 L MCHC 30.3 L RDW Std Deviation 49.7 H RDW Coeff of Juan Antonio 15.8 H Plt Count 349 MPV 9.0 Immature Gran % (Auto) 0.200 Neut % (Auto) 58.0 Lymph % (Auto) 32.8 [place] % (Auto) 5.5 Eos % (Auto) 3.1 Baso % (Auto) 0.4 Absolute Neuts (auto) 5.6 Absolute Lymphs (auto) 3.18 Nucleated RBC % 0 Sodium 138 Potassium 4.7 Chloride 105 Carbon Dioxide 25.0 Anion Gap 8 BUN 9 Creatinine 0.39 L Estim Creat Clear Calc 126.71 Est GFR (MDRD) Af Amer 227 Est GFR (MDRD) Non-Af 188 BUN/Creatinine Ratio 23.3 H Glucose 128 H Lactic Acid Calcium 9.6 Total Bilirubin 0.50 AST 55 H ALT 45 Alkaline Phosphatase 91 Ammonia Total Protein 9.0 H Albumin 3.4 Globulin 5.6 H Albumin/Globulin Ratio 0.6 L Urine Color Yellow Urine Clarity Turbid Urine pH 7.0 Ur Specific [place] 1.010 Urine Protein 30 H Urine Glucose (UA) Normal Urine Ketones Negative Urine Occult Blood 150 H Urine Nitrite Negative Urine Bilirubin Negative Urine Urobilinogen Normal Ur Leukocyte Esterase 500 H Urine RBC 5-10 SEEN Urine WBC 5-10 SEEN Ur Squamous Epith Cells 0 SEEN Amorphous Sediment 2+ Urine Bacteria 2+ Urine Mucus 0 SEEN 07/24/22 07/24/22 20:27 20:27 WBC RBC Hgb Hct MCV MCH MCHC RDW Std Deviation RDW Coeff of Juan Antonio Plt Count MPV Immature Gran % (Auto) Neut % (Auto) Lymph % (Auto) [place] % (Auto) Eos % (Auto) Baso % (Auto) Absolute Neuts (auto) Absolute Lymphs (auto) Nucleated RBC % Sodium Potassium Chloride Carbon Dioxide Anion Gap BUN Creatinine Estim Creat Clear Calc Est GFR (MDRD) Af Amer Est GFR (MDRD) Non-Af BUN/Creatinine Ratio Glucose Lactic Acid 1.4 Calcium Total Bilirubin AST ALT Alkaline Phosphatase Ammonia < 10.0 L Total Protein Albumin Globulin Albumin/Globulin Ratio Urine Color Urine Clarity Urine pH Ur Specific [place] Urine Protein Urine Glucose (UA) Urine Ketones Urine Occult Blood Urine Nitrite Urine Bilirubin Urine Urobilinogen Ur Leukocyte Esterase Urine RBC Urine WBC Ur Squamous Epith Cells Amorphous Sediment Urine Bacteria Urine Mucus Radiography Diagnostic Testing: Clinical Impression(s) from Imaging Studies Brain CT 07/24/22 19:14 IMPRESSION: No acute intracranial findings. Electronically Signed: Bradley Matthews MD at 20:54 EST , Chest X-Ray 07/24/22 19:54 IMPRESSION: No radiographic evidence of acute cardiopulmonary disease. Electronically Signed: Bradley Matthews MD at 20:32 EST , Discharge Plan Triage Chief Complaint: Confusion ED Provider: Marc Beasley Dx/Rx/DC Orders Clinical Impression: UTI (urinary tract infection), Suprapubic catheter, Morbid obesity, Confusion Instructions: ED Confusion, ED Cystitis Female Adult Prescriptions: No Action levothyroxine 75 MCG tablet 75 mcg PO DAILY Label Comments: HYPOTHYROIDISM duloxetine 60 MG capsule,delayed release(DR/EC) 90 mg PO QHS Label Comments: ANXIETY baclofen 10 MG tablet 40 mg PO Q6H acetaminophen 325 MG tablet 650 mg PO Q4H PRN PRN (Reason: Pain) bisacodyl 10 MG suppository 10 mg TX QHS PRN (Reason: Constipation) omeprazole 20 MG capsule,delayed release(DR/EC) 20 mg PO LUNCH furosemide 40 MG tablet 40 mg PO BREAKFAST sennosides 8.6 MG tablet 17.2 mg PO BID polyethylene glycol 3350 17 GM packet 17 gm PO QHS cholecalciferol (vitamin D3) 2,000 UNIT capsule 2,000 unit PO LUNCH docusate sodium [Colace] 100 mg Capsule 200 mg PO QHS furosemide 20 mg Tablet 20 mg PO LUNCH isosorbide mononitrate 30 mg Tablet Extended Release 24 Hr 30 mg PO QHS potassium chloride 10 mEq Capsule, Extended Release 10 meq PO DAILY oxybutynin chloride 10 mg Tablet Extended Release 24hr 30 mg PO DAILY gabapentin 800 mg Tablet 1,600 mg PO TID buspirone 7.5 mg Tablet 10 mg PO TID phenazopyridine [Pyridium] 200 mg Tablet 200 mg PO TID PRN (Reason: Bladder Spasms) melatonin 5 mg Tablet 5 mg PO QHS mirtazapine 30 mg Tablet 30 mg PO QHS paroxetine HCl 10 mg Tablet 10 mg PO QHS simethicone 80 mg Tablet 80 mg PO DAILY PRN (Reason: Gastric Reflux) magnesium hydroxide [Milk of Magnesia] 400 mg/5 mL Suspension 30 ml PO DAILY PRN (Reason: Constipation) loperamide 2 mg Tablet 1 mg PO Q4H PRN (Reason: Diarrhea) Rx Instructions: administer after each loose stool until symptoms controlled; do not exceed 8 mg per 24 hrs ondansetron HCl 4 mg Tablet 4 mg PO Q4H PRN (Reason: Nausea) buprenorphine [Butrans] 10 mcg/hour Patch Weekly 1 patch TRANSDERMAL Q7D cefdinir 300 mg capsule 300 mg PO BID 5 Days Qty: 10 0RF doxycycline monohydrate 100 mg capsule 100 mg PO BID 3 Days Qty: 6 0RF Primary Care Provider: Lavon Vicente Referrals: Lavon Vicente MD [Primary Care Provider] - As soon as possible Disposition Disposition: Shelter Facility Discharge Location: [facility]
--- NOTE | 2022-07-24 19:54 | RAD_ITS ---
INDICATION: Shortness of Breath EXAMINATION/TECHNIQUE: X-RAY - portable upright AP chest x-ray COMPARISON: 04/22/2021 FINDINGS: LINES/DEVICES: None. LUNGS: No consolidation, edema or effusion. No pneumothorax. MEDIASTINUM AND CARDIOVASCULAR STRUCTURES: Cardiac silhouette stable and upper normal limits. BONES AND SOFT TISSUES: No acute changes. RAD/Chest 1 View (Portable) IMPRESSION: No radiographic evidence of acute cardiopulmonary disease. Electronically Signed: Bradley Matthews MD at 20:32 EST ,
[2022-07-24 20:15] LABS: Mucous, Urine 0 SEEN /hpf (<or=2+); Squamous Epithelial Cells - UA 0 SEEN /hpf (5-10)
[2022-07-24 20:16] LABS: Color, Urine Yellow (Yellow); Glucose, Dipstick Normal (Normal); Ketone-Dipstick Negative (Negative); Leukocyte Esterase-Dipstick 500 /ul (Negative); Nitrite-Dipstick Negative (Negative); Occult Blood-Urine 150 /ul (Negative); Protein-Dipstick 30 mg/dl (Negative); Urine Bilirubin Dipstick Negative (Negative); Urine Clarity Turbid (Clear); Urine Urobilinogen Normal (Normal)
[2022-07-24 20:26] LABS: ALB/GLOB Ratio 0.6 RATIO (0.9-2.4); AST(SGOT) 55 U/L (15-37); Alanine Aminotransfer ALT/SGPT 45 U/L (13-56); Albumin, Serum 3.4 g/dL (3.2-5.0); Alkaline Phosphatase 91 U/L (45-117); Anion Gap 8 (5-15); BUN 9 mg/dL (7-18); BUN/Creat Ratio 23.3 RATIO (10-20); Calcium,Total 9.6 mg/dL (8.5-10.1); Chloride 105 mmol/L (98-107); Creatinine, Serum 0.39 mg/dL (0.55-1.02); EST Glomerular Filtration Rate 188 mL/min (>60); Est Glom Filt Rate - Afr Amer 227 mL/min (>60); Estimated Creatinine Clearance 126.71 ml/min; Globulin 5.6 g/dL (2.2-4.2); Glucose 128 mg/dL (74-106); Potassium 4.7 mmol/L (3.5-5.1); Sodium Level 138 mmol/L (136-145)
[2022-07-24 20:30] LABS: Amorphous Sediment 2+; Bacteria 2+ /hpf (None Seen); Red Blood Cells-Urine 5-10 SEEN /hpf (0-5); White Blood Cells 5-10 SEEN /hpf (0-5)
[2022-07-24 20:37] LABS: Absolute Lymphocyte Count 3.18 X10^3/uL (0.83-4.51); Absolute Neutrophil Count 5.6 X10^3/uL (2.0-7.7); Basophil# 0.04 X10^3/uL; Basophil% 0.4 % (0-1); Eosinophils% 3.1 % (0-5); Hematocrit 42.6 % (37-47); Hemoglobin 12.9 g/dL (12.0-15.0); Lymphocyte # 3.18 X10^3/ul (0.83-4.51); Lymphocyte % 32.8 % (19-41); Mean Corp Hgb Conc 30.3 g/dL (32-36); Mean Corpuscular Hgb 26.3 pg (27.0-32.0); Mean Corpuscular Volume 86.9 fL (81-99); Monocyte# 0.53 X10^3/uL; Monocyte% 5.5 % (0-10); NRBC Flagged by Analyzer 0 % (0-5); Neutrophil # 5.62 X10^3/uL (2.7-7.7); Platelet Count 349 K/mm3 (150-450); RBC Distribution Width CV 15.8 % (11.6-14.6); RBC Distribution Width SD 49.7 fl (35.1-43.9); White Blood Count 9.7 K/mm3 (4.4-11.0)
[2022-07-24 21:01] LABS: Lactic Acid 1.4 mmol/L (0.4-1.9)
[2022-07-24 21:07] LABS: Ammonia < 10.0 umol/L (11-32)
[2022-07-24] MEDS: Cephalexin 250 MG Capsule 500 MG PO (21:59)
== END 2022-07-24 22:35 | disposition skilled nursing facility (03) ==
PROVIDERS: Emergency Provider Emergency Medicine; PCP Family Medicine; Visit Provider Emergency Medicine
DX: N39.0 Urinary tract infection, site not specified (principal); L89.134 Pressure ulcer of right lower back, stage 4; G82.20 Paraplegia, unspecified; E44.1 Mild protein-calorie malnutrition; E66.01 Morbid (severe) obesity due to excess calories; R09.02 Hypoxemia; E03.9 Hypothyroidism, unspecified; R41.0 Disorientation, unspecified
CPT/HCPCS: 70450; 71045; 80053; 81001; 82140; 83605; 85025; 87077; 87086; 87088; 87186; 93005; 99285; A4216

== ENCOUNTER 2022-09-12 09:06 | Inpatient (IN) | payer MEDICARE, MEDICAID, SELFPAY ==
[2022-09-12] VITALS (13 sets, daily range): BP systolic 86–181; BP diastolic 61–109; PULSE 68–110; RESP 16–29; TEMP 36.4–37.8; O2SAT 94–99; BMI 50.5; BMI 49.6
--- NOTE | 2022-09-12 10:03 | EKG12_ITS ---
Test Reason : SOB/CP Blood Pressure : / mmHG Vent. Rate : 088 BPM Atrial Rate : 088 BPM P-R Int : 164 ms QRS Dur : 080 ms QT Int : 366 ms P-R-T Axes : 051 036 068 degrees QTc Int : 442 ms Normal sinus rhythm Nonspecific ST and T wave abnormality Abnormal ECG Confirmed by DEJA HAMILTON, SOURAV ([id number]), deputy editor in chief STEFANI SARMIENTO ([id number]) on 09/14/2022 11:16:33 AM Referred By: KHOA Confirmed By:ALEKS SHORT MD
--- NOTE | 2022-09-12 10:03 | RAD_ITS ---
HISTORY: chest pain. TECHNIQUE: XR Chest 1 View. COMPARISON: 07/24/2022. FINDINGS: CARDIOMEDIASTINAL BORDERS: Stable borderline cardiomegaly. LUNGS: Mild pulmonary vascular congestion and perihilar opacities. PLEURA: Probable trace pleural effusions. OSSEOUS STRUCTURES: Cervical spinal fixation hardware again seen. Scoliosis. RAD/Chest 1 View (Portable) IMPRESSION: Mild pulmonary vascular congestion and perihilar opacities, concerning for mild pulmonary edema. Electronically Signed: Mary Keller MD at 11:03 EDT ,
--- NOTE | 2022-09-12 10:05 | ED.VIS.DYS ---
HPI History of Present Illness Chief Complaint: Shortness of Breath Narrative Narrative: 47-year-old female with history of paraplegia, neurogenic bladder presenting with cough, shortness of breath x3 to 4 days. Patient states that she is producing sputum. She does not noted any body aches or fevers. She states she was told when she arrived that she had a temperature of 100.1. She also reports intermittent chest pains which occur when she is coughing. Patient also states she has blood in her urine. She is concerned she might have a UTI. She states that she supposed to be establishing with Dr. Rodriguez next week. Previously she saw somebody at [place]. She has a suprapubic catheter. 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 Hx: UTI (urinary tract infection) Hypothyroidism Left femoral shaft fracture Malnutrition of mild degree Neuromuscular dysfunction of bladder Paraplegia Pre-operative cardiovascular exam, new EKG abnormalities c/w ischemia Quadriparesis Right ischial pressure sore, stage 4 Spinal cord injury (2010) Suprapubic catheter Home Medications levothyroxine 75 mcg tablet 75 mcg PO DAILY 05/28/15 [History Last Taken 04/22/21] duloxetine 60 mg capsule,delayed release 90 mg PO QHS 08/21/15 [History Last Taken 04/21/21] baclofen 10 mg tablet 40 mg PO Q6H SPASMS 08/16/16 [History Last Taken 04/22/21] acetaminophen 325 mg tablet 650 mg PO Q4H PRN PRN Pain 03/01/18 [History Last Taken 04/21/21] bisacodyl 10 mg rectal suppository 10 mg OH QHS PRN Constipation 03/01/18 [History Last Taken 04/21/21] omeprazole 20 mg capsule,delayed release 20 mg PO LUNCH 03/01/18 [History Last Taken 04/22/21] furosemide 40 mg tablet 40 mg PO BREAKFAST 05/26/18 [History Last Taken 04/22/21] sennosides 8.6 mg tablet 17.2 mg PO BID 08/16/18 [History Last Taken 04/22/21] cholecalciferol (vitamin D3) 50 mcg (2,000 unit) capsule 2,000 unit PO LUNCH SUPPLEMENT 08/08/19 [History Last Taken 04/22/21] polyethylene glycol 3350 17 gram oral powder packet 17 gm PO QHS 08/08/19 [History Last Taken 04/21/21] docusate sodium 100 mg capsule (Colace) 200 mg PO QHS 10/11/20 [History Last Taken 04/21/21] furosemide 20 mg tablet 20 mg PO LUNCH 04/21/21 [History Last Taken 04/22/21] buspirone 7.5 mg tablet 10 mg PO TID 04/22/21 [History Last Taken 04/22/21] gabapentin 800 mg tablet 1,600 mg PO TID NEUROPATHY 04/22/21 [History Last Taken 04/22/21] isosorbide mononitrate 30 mg tablet,extended release 24 hr 30 mg PO QHS 04/22/21 [History Last Taken 04/21/21] oxybutynin chloride 10 mg tablet,extended release 24 hr 30 mg PO DAILY BLADDER 04/22/21 [History Last Taken 04/22/21] potassium chloride 10 mEq capsule,extended release 10 meq PO DAILY 04/22/21 [History Last Taken 04/22/21] phenazopyridine 200 mg tablet (Pyridium) 200 mg PO TID PRN Bladder Spasms 05/27/21 [History Last Taken Unknown] loperamide 2 mg tablet 1 mg PO Q4H PRN Diarrhea 06/03/22 [History Last Taken Unknown] magnesium hydroxide 400 mg/5 mL oral suspension (Milk of Magnesia) 30 ml PO DAILY PRN Constipation 06/03/22 [History Last Taken Unknown] melatonin 5 mg tablet 5 mg PO QHS 06/03/22 [History Last Taken Unknown] mirtazapine 30 mg tablet 15 mg PO QHS 06/03/22 [History Last Taken Unknown] ondansetron HCl 4 mg tablet 4 mg PO Q4H PRN Nausea 06/03/22 [History Last Taken Unknown] paroxetine HCl 10 mg tablet 10 mg PO QHS 06/03/22 [History Last Taken Unknown] simethicone 80 mg tablet 80 mg PO DAILY PRN Gastric Reflux 06/03/22 [History Last Taken Unknown] buprenorphine 15 mcg/hour weekly transdermal patch (Butrans) 1 mcg transdermal QWEEK 09/12/22 [History Last Taken Unknown] cephalexin 250 mg capsule 250 mg PO DAILY 09/12/22 [History Last Taken Unknown] cetirizine 10 mg tablet 10 mg PO DAILY 09/12/22 [History Last Taken Unknown] Allergy/AdvReac Type Severity Reaction Status Date / Time apixaban [From Eliquis] Allergy Rash Verified 09/12/22 09:06 coconut oil Allergy cant breath Verified 09/12/22 09:06 mometasone furoate Allergy Rash Verified 09/12/22 09:06 [From Elocon] morphine Allergy NEEDS Verified 09/12/22 09:06 FOLLOW-UP nitrofurantoin Allergy Unknown Verified 09/12/22 09:06 rivaroxaban [From Xarelto] Allergy Rash Verified 09/12/22 09:06 Sulfa (Sulfonamide Allergy Shortness Verified 09/12/22 09:06 Antibiotics) of breath Penicillins AdvReac NEEDS Verified 09/12/22 09:06 FOLLOW-UP Family History Mother Diabetes Grandfather CAD (coronary artery disease) Colon cancer Grandmother Breast cancer Aunt Ovarian cancer Surgical History History of tracheostomy (2010) Social History Smoking Status: Never smoker ROS ROS ED Review of Systems ROS Unobtainable: Denies due to encephalopathy Constitutional Constitutional ED: Reports fever(s); Denies chills Eyes Eyes: Denies change in vision or diplopia ENT ENT ED: Denies rhinorrhea or sore throat Cardiovascular Cardiovascular: Reports chest pain Respiratory/Chest Respiratory/Chest: Reports cough and dyspnea Gastrointestinal Gastrointestinal: Denies abdominal pain, nausea or other Genitourinary Genitourinary ED: Reports hematuria Musculoskeletal Musculoskeletal: Denies arthralgias or back pain Integumentary Denies abscess Neurologic Neurologic: Denies headache(s) or paresthesias EXAM Physical Exam Const Vital Signs: 09/12/22 09:06 09/12/22 09:29 09/12/22 09:31 Temperature 100.1 F H 100.1 F H Temperature Source Oral Oral Pulse Rate 91 68 Respiratory Rate 29 H 16 Respiratory Effort Short of Breath Labored Accessory Muscle Use Respiratory Depth Normal Respiratory Pattern Tachypnea Blood Pressure 181/109 H 96/78 Blood Pressure Mean 133 84 Pulse Ox 94 94 Oxygen Delivery Method Nasal Cannula Nasal Cannula Nasal Cannula Oxygen Flow Rate (L/min) 4 4 4 09/12/22 10:10 09/12/22 11:53 09/12/22 13:12 Temperature 98.9 F Temperature Source Oral Pulse Rate 110 H 96 Respiratory Rate 22 H 16 Respiratory Effort Respiratory Depth Respiratory Pattern Blood Pressure 116/69 86/61 L Blood Pressure Mean 84 69 Pulse Ox 94 96 94 Oxygen Delivery Method Nasal Cannula Nasal Cannula Oxygen Flow Rate (L/min) 4 4 09/12/22 13:54 Temperature 97.6 F L Temperature Source Oral Pulse Rate 92 Respiratory Rate 20 H Respiratory Effort Respiratory Depth Respiratory Pattern Blood Pressure 107/67 Blood Pressure Mean 80 Pulse Ox 99 Oxygen Delivery Method Nasal Cannula Oxygen Flow Rate (L/min) 6 Positive well nourished and obese General Appearance ED: NAD Nutritional Appearance: obese HEENT Reports moist mucous membranes atraumatic Eyes PERRL and EOMs intact bilaterally Neck no lymphadenopathy Resp normal respiratory effort and clear to auscultation bilaterally Auscultation: Negative for rales, rhonchi or wheezes Cardio regular rate and regular rhythm GI non-tender Auscultation: normoactive bowel sounds Neuro oriented x3 and CN's II-XII intact bilaterally Motor Exam: strength 5/5 throughout Psych mental status grossly normal MDM MDM MDM Narrative Medical decision making narrative: Patient presenting with shortness of breath and coughing for the last few days. Is a low-grade fever on arrival. Otherwise her vital signs are stable. Patient complaining of intermittent chest pain with coughing as well. Differential includes but is not limited to ACS, PE, aortic dissection, pneumonia, pneumothorax, muscle strain, costochondritis. CBC to assess white blood cell count, hemoglobin, platelets, differential. BMP to assess renal function, electrolytes, glucose, anion gap. D-dimer to assess for PE/DVT. High-sensitivity troponin. Test for cardiac source as well as EKG and chest x-ray. EKG on my interpretation shows a sinus rhythm 88 bpm without sign ischemic change or dysrhythmia. Chest x-ray on my interpretation shows concern for vascular congestion but does appear to show a right-sided infiltrate. CBC shows leukocytosis at 17.3 with left shift. Hemoglobin macular stable. Platelets are normal. D-dimer not elevated 1.11 and patient had a CTA of the chest which shows right-sided pneumonia fairly diffusely. No evidence of PE or dissection. High-sensitivity troponin came back at 7 BMP shows normal renal function and electrolytes. Glucose slightly elevated 141 without anion gap. Urinalysis consistent with UTI. Review of the medical record shows that her last urine culture showed resistance pattern to oral antibiotics. She also has VRE. Given the pneumonia and UTI I think she benefit from inpatient care. Discussed with the hospitalist who recommended meropenem given her allergy to penicillin and linezolid given she has a history of VRE. Patient was amenable to hospitalization. Admitted in stable condition. Impression: 1. Chest pain 2. Right-sided pneumonia 3. UTI Lab Data Labs: Laboratory Results - last 24 hr 09/12/22 09/12/22 09/12/22 09:20 09:20 09:20 WBC 17.3 H RBC 4.67 Hgb 12.3 Hct 40.2 MCV 86.1 MCH 26.3 L MCHC 30.6 L RDW Std Deviation 50.2 H RDW Coeff of Juan Antonio 15.9 H Plt Count 321 MPV 9.4 Immature Gran % (Auto) 0.300 Neut % (Auto) 84.0 H Lymph % (Auto) 8.3 L Dickinson % (Auto) 5.4 Eos % (Auto) 1.7 Baso % (Auto) 0.3 Absolute Neuts (auto) 14.5 H Absolute Lymphs (auto) 1.43 Nucleated RBC % 0 D-Dimer Quant (PE/DVT) 1.11 H* Sodium 136 Potassium 3.5 Chloride 100 Carbon Dioxide 29.0 Anion Gap 7 BUN 6 L Creatinine 0.35 L Estim Creat Clear Calc 148.33 Est GFR (MDRD) Af Amer 256 Est GFR (MDRD) Non-Af 211 BUN/Creatinine Ratio 17.2 Glucose 141 H Calcium 9.0 Troponin I High Sens 8 B-Natriuretic Peptide Urine Color Urine Clarity Urine pH Ur Specific [place] Urine Protein Urine Glucose (UA) Urine Ketones Urine Occult Blood Urine Nitrite Urine Bilirubin Urine Urobilinogen Ur Leukocyte Esterase Urine RBC Urine WBC Ur Squamous Epith Cells Urine Bacteria Urine Mucus 09/12/22 09/12/22 09/12/22 09:20 10:05 12:55 WBC RBC Hgb Hct MCV MCH MCHC RDW Std Deviation RDW Coeff of Juan Antonio Plt Count MPV Immature Gran % (Auto) Neut % (Auto) Lymph % (Auto) Dickinson % (Auto) Eos % (Auto) Baso % (Auto) Absolute Neuts (auto) Absolute Lymphs (auto) Nucleated RBC % D-Dimer Quant (PE/DVT) Sodium Potassium Chloride Carbon Dioxide Anion Gap BUN Creatinine Estim Creat Clear Calc Est GFR (MDRD) Af Amer Est GFR (MDRD) Non-Af BUN/Creatinine Ratio Glucose Calcium Troponin I High Sens 7 B-Natriuretic Peptide 45.3 Urine Color Red Urine Clarity Cloudy Urine pH 8.0 Ur Specific [place] 1.015 Urine Protein 100 H Urine Glucose (UA) Normal Urine Ketones Negative Urine Occult Blood 250 H Urine Nitrite Negative Urine Bilirubin Negative Urine Urobilinogen Normal Ur Leukocyte Esterase 500 H Urine RBC > 100 SEEN Urine WBC 10-25 SEEN Ur Squamous Epith Cells 0 SEEN Urine Bacteria 2+ Urine Mucus 0 SEEN Radiography Diagnostic Testing: Clinical Impression(s) from Imaging Studies Chest X-Ray 09/12/22 10:03 IMPRESSION: Mild pulmonary vascular congestion and perihilar opacities, concerning for mild pulmonary edema. Electronically Signed: Mary Keller MD at 11:03 EDT , Chest CTA 09/12/22 10:52 IMPRESSION: No evidence of acute pulmonary embolism or aortic aneurysm or dissection. Diffuse right-sided pneumonia. Bibasilar atelectasis. Enlarged steatotic liver. Electronically Signed: Steven Rodney MD at 12:23 EDT , Discharge Plan Disposition Disposition: Acute Care Hospital [facility] Discharge Date/Time: 09/12/22 15:44
[2022-09-12] MEDS: fentaNYL 100 MCG/2 ML Ampul 25 MCG IV (10:12)
[2022-09-12] MEDS: Ondansetron 4 MG/2 ML Vial IV (10:12)
[2022-09-12] MEDS: Acetaminophen 500 MG Tablet 1000 MG PO (10:13)
[2022-09-12 10:20] LABS: Mucous, Urine 0 SEEN /hpf (<or=2+); Squamous Epithelial Cells - UA 0 SEEN /hpf (5-10)
[2022-09-12 10:29] LABS: Color, Urine Red (Yellow); Glucose, Dipstick Normal (Normal); Ketone-Dipstick Negative (Negative); Leukocyte Esterase-Dipstick 500 /ul (Negative); Nitrite-Dipstick Negative (Negative); Occult Blood-Urine 250 /ul (Negative); Protein-Dipstick 100 mg/dl (Negative); Specific Gravity, Urine 1.015 (1.002-1.030); Urine Bilirubin Dipstick Negative (Negative); Urine Clarity Cloudy (Clear); Urine Urobilinogen Normal (Normal)
[2022-09-12 10:33] LABS: Absolute Lymphocyte Count 1.43 X10^3/uL (0.83-4.51); Absolute Neutrophil Count 14.5 X10^3/uL (2.0-7.7); Basophil# 0.05 X10^3/uL; Basophil% 0.3 % (0-1); Eosinophil# 0.29 X10^3/uL; Eosinophils% 1.7 % (0-5); Hematocrit 40.2 % (37-47); Hemoglobin 12.3 g/dL (12.0-15.0); Lymphocyte # 1.43 X10^3/ul (0.83-4.51); Lymphocyte % 8.3 % (19-41); Mean Corp Hgb Conc 30.6 g/dL (32-36); Mean Corpuscular Hgb 26.3 pg (27.0-32.0); Mean Corpuscular Volume 86.1 fL (81-99); Mean Platelet Vol. 9.4 fl (6.2-12.0); Monocyte# 0.94 X10^3/uL; Monocyte% 5.4 % (0-10); NRBC Flagged by Analyzer 0 % (0-5); Neutrophil # 14.49 X10^3/uL (2.7-7.7); Platelet Count 321 K/mm3 (150-450); RBC Distribution Width CV 15.9 % (11.6-14.6); RBC Distribution Width SD 50.2 fl (35.1-43.9); Red Blood Count 4.67 M/mm3 (4.2-5.4); White Blood Count 17.3 K/mm3 (4.4-11.0)
[2022-09-12 10:50] LABS: D-Dimer Quantitative (DVT/PE) 1.11 FEU/ug/m (0.27-0.49)
--- NOTE | 2022-09-12 10:52 | CT_ITS ---
EXAM: CT ANGIOGRAPHY CHEST WITH INTRAVENOUS CONTRAST CLINICAL INDICATION: chest pain TECHNIQUE: Helically acquired angiography images were obtained of the chest with intravenous contrast. This CT exam was performed using one or more of the following dose reduction techniques: automated exposure control, adjustment of the mA and/or kV according to patient size, and/or use of iterative reconstruction technique. This report was created using [employer] report generation technology. MIP reconstructed images were created and reviewed. CONTRAST: IV 100mL [id number] COMPARISON: None. FINDINGS: PULMONARY ARTERIES: Normal. Normal in caliber. No evidence of pulmonary embolism. AORTA: Normal. Normal in caliber. No evidence of dissection. GREAT VESSELS OF AORTIC ARCH: Normal. Normal in caliber. No evidence of dissection. LUNGS AND PLEURAL SPACES: Airspace opacification throughout the right lung consistent with pneumonia. Additional bibasilar atelectatic changes. No mass. No pleural effusion or thickening. HEART: Normal. Heart size is normal. No pericardial effusion. No signs of right heart strain, ratio of right ventricle to left ventricle measures less than 1. MEDIASTINUM: Normal. No mediastinal or hilar adenopathy. Esophagus is unremarkable. No hiatal hernia. THYROID: Normal. No thyroid lesions. BONES/JOINTS: Normal. No suspicious lytic or blastic abnormality. LYMPH NODES: Mildly enlarged right pretracheal lymph nodes may represent reactive change. LIVER: Liver appears enlarged and diffusely steatotic. CT/CTA Chest W/WO Contrast IMPRESSION: No evidence of acute pulmonary embolism or aortic aneurysm or dissection. Diffuse right-sided pneumonia. Bibasilar atelectasis. Enlarged steatotic liver. Electronically Signed: Steven Rodney MD at 12:23 EDT ,
[2022-09-12 10:54] LABS: Bacteria 2+ /hpf (None Seen); Red Blood Cells-Urine > 100 SEEN /hpf (0-5); White Blood Cells 10-25 SEEN /hpf (0-5)
[2022-09-12 11:14] LABS: Anion Gap 7 (5-15); BUN 6 mg/dL (7-18); BUN/Creat Ratio 17.2 RATIO (10-20); Chloride 100 mmol/L (98-107); Creatinine, Serum 0.35 mg/dL (0.55-1.02); EST Glomerular Filtration Rate 211 mL/min (>60); Est Glom Filt Rate - Afr Amer 256 mL/min (>60); Estimated Creatinine Clearance 148.33 ml/min; Glucose 141 mg/dL (74-106); Potassium 3.5 mmol/L (3.5-5.1); Sodium Level 136 mmol/L (136-145); Troponin-I HS (w/2H Reflex) 8 pg/mL (3.0-54.0)
[2022-09-12] MEDS: 0.9% Normal Saline 1,000 ML 1000 ML IV (11:59)
[2022-09-12 12:17] LABS: Reflex Troponin-HS? (from REC) Y
[2022-09-12 13:04] LABS: BNP,B-Type NATRIURETIC PEPTIDE 45.3 pg/mL (0-100)
[2022-09-12] MEDS: Ceftriaxone 1 GM/50 ML BAG IV (13:09)
[2022-09-12 13:16] LABS: Troponin-I HS 7 pg/mL (3.0-54.0)
[2022-09-12] MEDS: 0.9% Normal Saline 1,000 ML 999 ML IV (13:53)
--- NOTE | 2022-09-12 14:49 | PCM.HP.STD ---
HPI - General General Date of Admission: 09/12/22 Date of Service: 09/12/22 Chief Complaint: SOB HPI Narrative Ms. Reed is a 47-year-old female with a history of paraplegia since 2010 with a suprapubic catheter and history of UTIs as well as DVT of right lower extremity, and morbid obesity who presented to [facility] from [facility] 09/12 due to shortness of breath for 3 to 4 days with sputum production and she was also concerned she might have a UTI because there was blood in her suprapubic catheter. In ED her white blood cell count was 17.3, D-dimer 1.11, troponin 8 and then 7, BNP 45, and UA suggestive of UTI. CT obtained that demonstrated diffuse right-sided pneumonia and bibasilar atelectasis as well as enlarged steatotic liver. Hospitalist consulted for admission for UTI, pneumonia, IV antibiotics. Patient evaluated at bedside and she reports she has had shortness of breath worsening over the past week and productive cough that she has felt very bad overall. Has not had her temperature measured and she is unsure if she was febrile. Reports that she has chest pain when she coughs or takes a deep breath and that is very uncomfortable for her. Had a slight headache earlier today. Also concerned she had a UTI due to blood in her suprapubic catheter. Denies any bedsores at present or other wounds of note. 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 Hx: UTI (urinary tract infection) Hypothyroidism Left femoral shaft fracture Malnutrition of mild degree Neuromuscular dysfunction of bladder Paraplegia Pre-operative cardiovascular exam, new EKG abnormalities c/w ischemia Quadriparesis Right ischial pressure sore, stage 4 Spinal cord injury (2010) Suprapubic catheter Home Medications levothyroxine 75 mcg tablet 75 mcg PO DAILY 05/28/15 [History Last Taken 04/22/21] duloxetine 60 mg capsule,delayed release 90 mg PO QHS 08/21/15 [History Last Taken 04/21/21] baclofen 10 mg tablet 40 mg PO Q6H SPASMS 08/16/16 [History Last Taken 04/22/21] acetaminophen 325 mg tablet 650 mg PO Q4H PRN PRN Pain 03/01/18 [History Last Taken 04/21/21] bisacodyl 10 mg rectal suppository 10 mg [place] QHS PRN Constipation 03/01/18 [History Last Taken 04/21/21] omeprazole 20 mg capsule,delayed release 20 mg PO LUNCH 03/01/18 [History Last Taken 04/22/21] furosemide 40 mg tablet 40 mg PO BREAKFAST 05/26/18 [History Last Taken 04/22/21] sennosides 8.6 mg tablet 17.2 mg PO BID 08/16/18 [History Last Taken 04/22/21] cholecalciferol (vitamin D3) 50 mcg (2,000 unit) capsule 2,000 unit PO LUNCH SUPPLEMENT 08/08/19 [History Last Taken 04/22/21] polyethylene glycol 3350 17 gram oral powder packet 17 gm PO QHS 08/08/19 [History Last Taken 04/21/21] docusate sodium 100 mg capsule (Colace) 200 mg PO QHS 10/11/20 [History Last Taken 04/21/21] furosemide 20 mg tablet 20 mg PO LUNCH 04/21/21 [History Last Taken 04/22/21] buspirone 7.5 mg tablet 10 mg PO TID 04/22/21 [History Last Taken 04/22/21] gabapentin 800 mg tablet 1,600 mg PO TID NEUROPATHY 04/22/21 [History Last Taken 04/22/21] isosorbide mononitrate 30 mg tablet,extended release 24 hr 30 mg PO QHS 04/22/21 [History Last Taken 04/21/21] oxybutynin chloride 10 mg tablet,extended release 24 hr 30 mg PO DAILY BLADDER 04/22/21 [History Last Taken 04/22/21] potassium chloride 10 mEq capsule,extended release 10 meq PO DAILY 04/22/21 [History Last Taken 04/22/21] phenazopyridine 200 mg tablet (Pyridium) 200 mg PO TID PRN Bladder Spasms 05/27/21 [History Last Taken Unknown] loperamide 2 mg tablet 1 mg PO Q4H PRN Diarrhea 06/03/22 [History Last Taken Unknown] magnesium hydroxide 400 mg/5 mL oral suspension (Milk of Magnesia) 30 ml PO DAILY PRN Constipation 06/03/22 [History Last Taken Unknown] melatonin 5 mg tablet 5 mg PO QHS 06/03/22 [History Last Taken Unknown] mirtazapine 30 mg tablet 15 mg PO QHS 06/03/22 [History Last Taken Unknown] ondansetron HCl 4 mg tablet 4 mg PO Q4H PRN Nausea 06/03/22 [History Last Taken Unknown] paroxetine HCl 10 mg tablet 10 mg PO QHS 06/03/22 [History Last Taken Unknown] simethicone 80 mg tablet 80 mg PO DAILY PRN Gastric Reflux 06/03/22 [History Last Taken Unknown] buprenorphine 15 mcg/hour weekly transdermal patch (Butrans) 1 mcg transdermal QWEEK 09/12/22 [History Last Taken Unknown] cephalexin 250 mg capsule 250 mg PO DAILY 09/12/22 [History Last Taken Unknown] cetirizine 10 mg tablet 10 mg PO DAILY 09/12/22 [History Last Taken Unknown] Allergy/AdvReac Type Severity Reaction Status Date / Time apixaban [From Eliquis] Allergy Rash Verified 09/12/22 09:06 coconut oil Allergy cant breath Verified 09/12/22 09:06 mometasone furoate Allergy Rash Verified 09/12/22 09:06 [From Elocon] morphine Allergy NEEDS Verified 09/12/22 09:06 FOLLOW-UP nitrofurantoin Allergy Unknown Verified 09/12/22 09:06 rivaroxaban [From Xarelto] Allergy Rash Verified 09/12/22 09:06 Sulfa (Sulfonamide Allergy Shortness Verified 09/12/22 09:06 Antibiotics) of breath Penicillins AdvReac NEEDS Verified 09/12/22 09:06 FOLLOW-UP Family History Mother Diabetes Grandfather CAD (coronary artery disease) Colon cancer Grandmother Breast cancer Aunt Ovarian cancer Surgical History History of tracheostomy (2010) Social History Smoking Status: Never smoker ROS ROS Narrative General: Has felt generally unwell HENT: Earlier had a headache, denies stuffy nose, denies sore throat EYES: Denies changes in vision Resp: Shortness of breath and productive cough Cardiac: Denies chest pain GI: Denies abdominal pain, feels she needs to have a bowel movement, denies nausea/vomiting : Red in her suprapubic catheter bag Extremity: Reports she does feel little bit swollen MSK: Cannot move legs Neuro: Paraplegic Heme: Bleeding and suprapubic catheter Skin: Denies rashes Psychiatric: No complaints voiced Vital Signs Vital Signs Vital Signs: 09/12/22 09:06 09/12/22 09:29 09/12/22 09:31 Temperature 100.1 F H 100.1 F H Temperature Source Oral Oral Pulse Rate 91 68 Respiratory Rate 29 H 16 Respiratory Effort Short of Breath Labored Accessory Muscle Use Respiratory Depth Normal Respiratory Pattern Tachypnea Blood Pressure 181/109 H 96/78 Blood Pressure Mean 133 84 Pulse Ox 94 94 Oxygen Delivery Method Nasal Cannula Nasal Cannula Nasal Cannula Oxygen Flow Rate (L/min) 4 4 4 09/12/22 10:10 09/12/22 11:53 09/12/22 13:12 Temperature 98.9 F Temperature Source Oral Pulse Rate 110 H 96 Respiratory Rate 22 H 16 Respiratory Effort Respiratory Depth Respiratory Pattern Blood Pressure 116/69 86/61 L Blood Pressure Mean 84 69 Pulse Ox 94 96 94 Oxygen Delivery Method Nasal Cannula Nasal Cannula Oxygen Flow Rate (L/min) 4 4 09/12/22 13:54 Temperature 97.6 F L Temperature Source Oral Pulse Rate 92 Respiratory Rate 20 H Respiratory Effort Respiratory Depth Respiratory Pattern Blood Pressure 107/67 Blood Pressure Mean 80 Pulse Ox 99 Oxygen Delivery Method Nasal Cannula Oxygen Flow Rate (L/min) 6 Weight Weight: 121.5 kg Body Mass Index (BMI) 50.5 Physical Exam Narrative General: Alert, oriented, no apparent distress HEENT: Atraumatic, normocephalic Eyes: Anicteric, normal conjunctiva, extraocular movements grossly intact Neck: Supple Respiratory: Diffuse wheezes, coarse throughout, slight increased work of breathing Cardiovascular: Regular rate and rhythm GI: Soft, nontender, nondistended Extremities: Trace edema bilateral lower extremities Musculoskeletal: Does not move lower extremities Neuro: Paraplegic Skin: Seems to have a faint red rash on left arm Psych: Cooperative Results Lab / Micro Data Result Diagrams: 09/12/22 09:20 09/12/22 09:20 Labs: Laboratory Results - last 24 hr 09/12/22 09:20: WBC 17.3 H, RBC 4.67, Hgb 12.3, Hct 40.2, MCV 86.1, MCH 26.3 L, MCHC 30.6 L, RDW Std Deviation 50.2 H, RDW Coeff of [place] 15.9 H, Plt Count 321, MPV 9.4, Immature Gran % (Auto) 0.300, Neut % (Auto) 84.0 H, Lymph % (Auto) 8.3 L, [place] % (Auto) 5.4, Eos % (Auto) 1.7, Baso % (Auto) 0.3, Absolute Neuts (auto) 14.5 H, Absolute Lymphs (auto) 1.43, Nucleated RBC % 0 09/12/22 09:20: Sodium 136, Potassium 3.5, Chloride 100, Carbon Dioxide 29.0, Anion Gap 7, BUN 6 L, Creatinine 0.35 L, Estim Creat Clear Calc 148.33, Est GFR (MDRD) Af Amer 256, Est GFR (MDRD) Non-Af 211, BUN/Creatinine Ratio 17.2, Glucose 141 H, Calcium 9.0, Troponin I High Sens 8 09/12/22 09:20: D-Dimer Quant (PE/DVT) 1.11 H* 09/12/22 09:20: B-Natriuretic Peptide 45.3 09/12/22 10:05: Urine Color Red, Urine Clarity Cloudy, Urine pH 8.0, Ur Specific [place] 1.015, Urine Protein 100 H, Urine Glucose (UA) Normal, Urine Ketones Negative, Urine Occult Blood 250 H, Urine Nitrite Negative, Urine Bilirubin Negative, Urine Urobilinogen Normal, Ur Leukocyte Esterase 500 H, Urine RBC > 100 SEEN, Urine WBC 10-25 SEEN, Ur Squamous Epith Cells 0 SEEN, Urine Bacteria 2+, Urine Mucus 0 SEEN 09/12/22 12:55: Troponin I High Sens 7 Micro: Microbiology 09/12/22 09:32 Nasal Secretion SARS-CoV-2 & FLU Antigen (Rapid) - Final Radiology Impression Chest X-Ray 09/12/22 10:03 IMPRESSION: Mild pulmonary vascular congestion and perihilar opacities, concerning for mild pulmonary edema. Electronically Signed: Mary Keller MD at 11:03 EDT , Chest CTA 09/12/22 10:52 IMPRESSION: No evidence of acute pulmonary embolism or aortic aneurysm or dissection. Diffuse right-sided pneumonia. Bibasilar atelectasis. Enlarged steatotic liver. Electronically Signed: Steven Rodney MD at 12:23 EDT , Assessment & Plan Assessment/Plan (1) Pneumonia: PLAN: Plan #Urinary tract infection/neurogenic bladder status post suprapubic catheter -In the past she has grown VRE as well as Morganella and Proteus with various resistance patterns. -White blood cell count 17 but is vitally stable, blood pressure recorded of 86/61 was rechecked by ED physician and systolic was in the 1 teens. Tmax of 100.1. Heart rates been in the 90s, had one heart rate of 110 -Do not think that she is septic at this time -Given penicillin allergy she will be started on Merrem given VRE she will be given linezolid -UA suggestive of UTI -Cultures ordered -We will plan to consult ID -Of note she is supposed to see Dr. Rodriguez next week to establish care #Right-sided pneumonia/shortness of breath/history of sleep apnea noncompliant with CPAP -CT with diffuse right-sided pneumonia -COVID-negative -We will obtain respiratory cultures, respiratory panel -DuoNebs and as needed albuterol -Sputum culture -Urine antigens -We will also send Pro-Ye for antibiotic de-escalation purposes -Mucinex, I/S -On Merrem and linezolid, will add azithromycin for atypicals though less likely -Received 2 L of IV fluid -CTA negative for PE, BNP 45 -Suspect this is all secondary to pneumonia -Discussed BiPAP if breathing worsens and she is very resistant to this. Does report that she is DO NOT RESUSCITATE but okay for intubation however -Theoretically willing to try BiPAP if no other option #Paraplegia secondary to spinal cord injury in 2010 -Continue home pain medications -Suprapubic catheter care -Home medications listed as BuSpar, mirtazapine, Paxil, Cymbalta. Paxil is an SSRI and Cymbalta as an SNRI certainly should not be used together due to increased risk of side effects, will attempt to verify if she is taking both of these. We will hold BuSpar, Paxil, Cymbalta while getting linezolid but will de-escalate this as quickly as possible so she can resume her home medications #Hypothyroidism -Continue Synthroid #Morbid obesity -BMI 50.6 kg/m? -Complicates treatment, prognosis, outcomes -Recommend weight loss and lifestyle changes #DVT ppx: Lovenox subcu Shari Pastor MD Time spent in the patient's overall evaluation,decision-making process, review of diagnostic data, adjustment of management, discussion with other providers, nursing nursing and ancillary staff involved in patient's care documentation, 60 minutes Charges/Coding Visit Charges Inpatient E&M: 34892 Init Hosp L2
[2022-09-12] MEDS: Linezolid 600 MG 600 MG/300 ML BAG 200 MG IV ×2 (15:30→23:08)
[2022-09-12 15:53] LABS: Lactic Acid 0.9 mmol/L (0.4-1.9)
[2022-09-12 15:57] LABS: Procalcitonin 0.15 ng/mL (0.00-0.09)
[2022-09-12] MEDS: Baclofen 10 MG Tablet 40 MG PO ×2 (17:38→22:41)
[2022-09-12] MEDS: Ipratropium/Albuterol Sulfate 3 ML AMPUL.NEB INHALATION ×2 (20:37→23:25)
[2022-09-12] MEDS: MELATONIN 10 MG TABLET 5 MG PO (22:37)
[2022-09-12] MEDS: Polyethylene Glycol 3350 17 GM PACKET PO (22:38)
[2022-09-12] MEDS: guaiFENesin 1,200 MG Tablet 1200 MG PO (22:38)
[2022-09-12] MEDS: Mirtazapine 15 MG Tablet PO (22:40)
[2022-09-12] MEDS: Senna Tablet 2 TABLET PO (22:40)
[2022-09-12] MEDS: 0.9% Saline Lock 10 ML Syringe IV (23:07)
[2022-09-12] MEDS: Gabapentin 800 MG Tablet 1600 MG PO (23:07)
[2022-09-13] VITALS (10 sets, daily range): BP systolic 93–123; BP diastolic 60–78; PULSE 82–114; RESP 17–26; TEMP 36.1–36.9; O2SAT 87–99; BMI 49.9
[2022-09-13] MEDS: Ipratropium/Albuterol Sulfate 3 ML AMPUL.NEB INHALATION ×6 (03:44→23:55)
[2022-09-13] MEDS: Gabapentin 800 MG Tablet 1600 MG PO ×3 (05:35→23:00)
[2022-09-13] MEDS: Baclofen 10 MG Tablet 40 MG PO ×4 (05:37→22:52)
[2022-09-13] MEDS: Levothyroxine 75 MCG Tablet PO (05:37)
[2022-09-13 08:23] LABS: Absolute Lymphocyte Count 2.59 X10^3/uL (0.83-4.51); Absolute Neutrophil Count 6.5 X10^3/uL (2.0-7.7); Basophil# 0.04 X10^3/uL; Basophil% 0.4 % (0-1); Eosinophil# 0.31 X10^3/uL; Eosinophils% 3.1 % (0-5); Hematocrit 33.5 % (37-47); Hemoglobin 9.9 g/dL (12.0-15.0); Lymphocyte # 2.59 X10^3/ul (0.83-4.51); Lymphocyte % 25.5 % (19-41); Mean Corp Hgb Conc 29.6 g/dL (32-36); Mean Corpuscular Hgb 26.2 pg (27.0-32.0); Mean Corpuscular Volume 88.6 fL (81-99); Mean Platelet Vol. 9.1 fl (6.2-12.0); Monocyte# 0.62 X10^3/uL; Monocyte% 6.1 % (0-10); NRBC Flagged by Analyzer 0 % (0-5); Neutrophil # 6.53 X10^3/uL (2.7-7.7); Neutrophil % 64.4 % (47-70); Platelet Count 298 K/mm3 (150-450); RBC Distribution Width CV 16.3 % (11.6-14.6); RBC Distribution Width SD 52.8 fl (35.1-43.9); Red Blood Count 3.78 M/mm3 (4.2-5.4); White Blood Count 10.1 K/mm3 (4.4-11.0)
[2022-09-13 08:47] LABS: ALB/GLOB Ratio 0.6 RATIO (0.9-2.4); AST(SGOT) 21 U/L (15-37); Alanine Aminotransfer ALT/SGPT 38 U/L (13-56); Albumin, Serum 2.6 g/dL (3.2-5.0); Alkaline Phosphatase 77 U/L (45-117); Anion Gap 3 (5-15); BUN 6 mg/dL (7-18); BUN/Creat Ratio 18.3 RATIO (10-20); Calcium,Total 8.7 mg/dL (8.5-10.1); Chloride 105 mmol/L (98-107); Creatinine, Serum 0.33 mg/dL (0.55-1.02); EST Glomerular Filtration Rate 227 mL/min (>60); Est Glom Filt Rate - Afr Amer 275 mL/min (>60); Estimated Creatinine Clearance 157.32 ml/min; Globulin 4.4 g/dL (2.2-4.2); Glucose 113 mg/dL (74-106); Sodium Level 138 mmol/L (136-145); Thyroid Stim Hormone (TSH) 1.88 uIU/mL (0.358-3.74)
[2022-09-13] MEDS: Linezolid 600 MG 600 MG/300 ML BAG 200 MG IV ×2 (09:44→22:54)
[2022-09-13] MEDS: Loratadine 10 MG Tablet PO (09:51)
[2022-09-13] MEDS: guaiFENesin 1,200 MG Tablet 1200 MG PO ×2 (09:51→22:50)
[2022-09-13] MEDS: Senna Tablet 2 TABLET PO ×2 (09:51→22:51)
[2022-09-13] MEDS: Tolterodine Tartrate 4 MG CAP.SA PO (09:52)
--- NOTE | 2022-09-13 10:02 | PN.HOSP_ITS ---
Reason for Visit Reason for Visit: Diagnoses Pneumonia, unspecified organism (09/12/22) Subjective Subjective Continues to have shortness of breath and cough, reports she feels slightly improved Objective Data Objective Data Vital Signs: Vital Signs Temp Pulse Resp BP Pulse Ox O2 Del Method O2 Flow Rate 97 F L 88 18 110/68 87 Nasal Cannula 6 09/13/22 04:20 09/13/22 07:30 09/13/22 07:30 09/13/22 04:20 09/13/22 07:30 09/13/22 07:30 09/13/22 07:30 Oxygen Flow Rate (L/min) 6 Oxygen Delivery Method Nasal Cannula Weight: 120 kg Body Mass Index (BMI) 49.9 Intake & Output: Intake and Output for Last 24 Hours 09/11/22 09/12/22 09/13/22 23:59 23:59 23:59 Intake Total 2865 / 2865 540 / 540 Output Total 1 / 501 900 / 900 Balance 2864 / 2364 -360 / -360 Lab / Micro Data Result Diagrams: 09/13/22 08:00 09/13/22 08:00 Labs: Laboratory Results - last 24 hr 09/12/22 09:20: WBC 17.3 H, RBC 4.67, Hgb 12.3, Hct 40.2, MCV 86.1, MCH 26.3 L, MCHC 30.6 L, RDW Std Deviation 50.2 H, RDW Coeff of Juan Antonio 15.9 H, Plt Count 321, MPV 9.4, Immature Gran % (Auto) 0.300, Neut % (Auto) 84.0 H, Lymph % (Auto) 8.3 L, [place] % (Auto) 5.4, Eos % (Auto) 1.7, Baso % (Auto) 0.3, Absolute Neuts (auto) 14.5 H, Absolute Lymphs (auto) 1.43, Nucleated RBC % 0 09/12/22 09:20: Sodium 136, Potassium 3.5, Chloride 100, Carbon Dioxide 29.0, Anion Gap 7, BUN 6 L, Creatinine 0.35 L, Estim Creat Clear Calc 148.33, Est GFR (MDRD) Af Amer 256, Est GFR (MDRD) Non-Af 211, BUN/Creatinine Ratio 17.2, Glucose 141 H, Calcium 9.0, Troponin I High Sens 8 09/12/22 09:20: D-Dimer Quant (PE/DVT) 1.11 H* 09/12/22 09:20: B-Natriuretic Peptide 45.3 09/12/22 10:05: Urine Color Red, Urine Clarity Cloudy, Urine pH 8.0, Ur Specific [place] 1.015, Urine Protein 100 H, Urine Glucose (UA) Normal, Urine Ketones Negative, Urine Occult Blood 250 H, Urine Nitrite Negative, Urine Bilirubin Negative, Urine Urobilinogen Normal, Ur Leukocyte Esterase 500 H, Urine RBC > 100 SEEN, Urine WBC 10-25 SEEN, Ur Squamous Epith Cells 0 SEEN, Urine Bacteria 2+, Urine Mucus 0 SEEN 09/12/22 12:55: Troponin I High Sens 7 09/12/22 15:15: Lactic Acid 0.9 09/12/22 15:15: Procalcitonin 0.15 H 09/13/22 08:00: WBC 10.1, RBC 3.78 L, Hgb 9.9 L, Hct 33.5 L, MCV 88.6, MCH 26.2 L, MCHC 29.6 L, RDW Std Deviation 52.8 H, RDW Coeff of [place] 16.3 H, Plt Count 298, MPV 9.1, Immature Gran % (Auto) 0.500, Neut % (Auto) 64.4, Lymph % (Auto) 25.5, [place] % (Auto) 6.1, Eos % (Auto) 3.1, Baso % (Auto) 0.4, Absolute Neuts (auto) 6.5, Absolute Lymphs (auto) 2.59, Nucleated RBC % 0 09/13/22 08:00: Sodium 138, Potassium 3.0 L, Chloride 105, Carbon Dioxide 30.0, Anion Gap 3 L, BUN 6 L, Creatinine 0.33 L, Estim Creat Clear Calc 157.32, Est GFR (MDRD) Af Amer 275, Est GFR (MDRD) Non-Af 227, BUN/Creatinine Ratio 18.3, Glucose 113 H, Calcium 8.7, Total Bilirubin 0.30, AST 21, ALT 38, Alkaline Phosphatase 77, Total Protein 7.0, Albumin 2.6 L, Globulin 4.4 H, Albumin/Globulin Ratio 0.6 L, TSH 1.88 Micro: Microbiology 09/12/22 16:29 Mucosa - Nose Respiratory Panel (PCR) - Final Rhinovirus 09/12/22 09:32 Nasal Secretion SARS-CoV-2 & FLU Antigen (Rapid) - Final Radiography Diagnostic Testing: Radiology Impression Chest X-Ray 09/12/22 10:03 IMPRESSION: Mild pulmonary vascular congestion and perihilar opacities, concerning for mild pulmonary edema. Electronically Signed: Mary Keller MD at 11:03 EDT , Chest CTA 09/12/22 10:52 IMPRESSION: No evidence of acute pulmonary embolism or aortic aneurysm or dissection. Diffuse right-sided pneumonia. Bibasilar atelectasis. Enlarged steatotic liver. Electronically Signed: Steven Rodney MD at 12:23 EDT , Physical Exam Narrative General: Alert, oriented, no apparent distress HEENT: Atraumatic, normocephalic Eyes: Anicteric, normal conjunctiva, extraocular movements grossly intact Neck: Supple Respiratory: Diffuse wheezes, coarse throughout, slight increased work of breathing Cardiovascular: Regular rate and rhythm GI: Soft, nontender, nondistended Extremities: Trace edema bilateral lower extremities Musculoskeletal: Does not move lower extremities Neuro: Paraplegic Skin: No overt rashes appreciated Psych: Cooperative Assessment & Plan Assessment/Plan (1) Pneumonia: PLAN: Plan #Urinary tract infection/neurogenic bladder status post suprapubic catheter -In the past she has grown VRE as well as Morganella and Proteus with various resistance patterns. -White blood cell count 17 but is vitally stable, blood pressure recorded of 86/61 was rechecked by ED physician and systolic was in the 1 teens. Tmax of 100.1. Heart rates been in the 90s, had one heart rate of 110 -Do not think that she is septic at this time -Given penicillin allergy she will be started on Merrem given VRE she will be given linezolid -UA suggestive of UTI -Cultures ordered -We will plan to consult ID -Of note she is supposed to see Dr. Rodriguez next week to establish care -/2: Urine culture and blood culture is pending, ID consult pending #Right-sided pneumonia/shortness of breath/history of sleep apnea noncompliant with CPAP/rhinovirus -CT with diffuse right-sided pneumonia -COVID-negative -We will obtain respiratory cultures, respiratory panel -DuoNebs and as needed albuterol -Sputum culture -Urine antigens -We will also send Pro-Ye for antibiotic de-escalation purposes -Mucinex, I/S -On Merrem and linezolid, will add azithromycin for atypicals though less likely -Received 2 L of IV fluid -CTA negative for PE, BNP 45 -Suspect this is all secondary to pneumonia -Discussed BiPAP if breathing worsens and she is very resistant to this. Does report that she is DO NOT RESUSCITATE but okay for intubation however -Theoretically willing to try BiPAP if no other option -/2: Positive for rhinovirus, continue supportive care. Antibiotics continued as per #1 and will de-escalate as appropriate with cultures and appreciate ID recommendations #Paraplegia secondary to spinal cord injury in 2010 -Continue home pain medications -Suprapubic catheter care -Home medications listed as BuSpar, mirtazapine, Paxil, Cymbalta. Paxil is an SSRI and Cymbalta as an SNRI certainly should not be used together due to increased risk of side effects, will attempt to verify if she is taking both of these. We will hold BuSpar, Paxil, Cymbalta while getting linezolid but will de-escalate this as quickly as possible so she can resume her home medications #Hypothyroidism -Continue Synthroid #Morbid obesity -BMI 50.6 kg/m? -Complicates treatment, prognosis, outcomes -Recommend weight loss and lifestyle changes #DVT ppx: Lovenox subcu Shari Pastor MD Time spent in the patient's overall evaluation,decision-making process, review of diagnostic data, adjustment of management, discussion with other providers, nursing nursing and ancillary staff involved in patient's care documentation, 30 minutes Charges/Coding Visit Charges Inpatient E&M: 98042 Subs Hosp L2
[2022-09-13] MEDS: Pantoprazole Sodium 20 MG Tablet PO (11:34)
[2022-09-13] MEDS: Potassium Chloride Oral Tablet 20 MEQ 60 MEQ PO (11:34)
[2022-09-13 11:49] LABS: Probe Check PASS
[2022-09-13 11:50] LABS: M R Staph aureus DNA By PCR POSITIVE (Negative)
[2022-09-13] MEDS: Lactulose 20 GM/30 ML UDC PO (14:05)
[2022-09-13] MEDS: MELATONIN 10 MG TABLET 5 MG PO (22:50)
[2022-09-13] MEDS: Mirtazapine 15 MG Tablet PO (22:52)
[2022-09-13] MEDS: Polyethylene Glycol 3350 17 GM PACKET PO (23:00)
[2022-09-14 03:45] VITALS: PULSE 90; RESP 16
[2022-09-14] MEDS: Ipratropium/Albuterol Sulfate 3 ML AMPUL.NEB INHALATION ×4 (03:45→14:35)
[2022-09-14 04:20] VITALS: BP 112/60; PULSE 89; RESP 18; TEMP 36.1; O2SAT 95
[2022-09-14] MEDS: Gabapentin 800 MG Tablet 1600 MG PO ×2 (05:58→14:02)
[2022-09-14] MEDS: Levothyroxine 75 MCG Tablet PO (05:59)
[2022-09-14] MEDS: Baclofen 10 MG Tablet 40 MG PO ×2 (05:59→12:26)
[2022-09-14 06:00] VITALS: BMI 50.7
[2022-09-14 06:14] LABS: Absolute Lymphocyte Count 2.16 X10^3/uL (0.83-4.51); Absolute Neutrophil Count 5.6 X10^3/uL (2.0-7.7); Basophil# 0.05 X10^3/uL; Basophil% 0.6 % (0-1); Eosinophil# 0.38 X10^3/uL; Eosinophils% 4.2 % (0-5); Hematocrit 34.7 % (37-47); Hemoglobin 10.1 g/dL (12.0-15.0); Lymphocyte # 2.16 X10^3/ul (0.83-4.51); Mean Corp Hgb Conc 29.1 g/dL (32-36); Mean Corpuscular Hgb 26.2 pg (27.0-32.0); Mean Corpuscular Volume 89.9 fL (81-99); Mean Platelet Vol. 9.2 fl (6.2-12.0); Monocyte# 0.75 X10^3/uL; Monocyte% 8.3 % (0-10); NRBC Flagged by Analyzer 0 % (0-5); Neutrophil # 5.62 X10^3/uL (2.7-7.7); Neutrophil % 62.5 % (47-70); Platelet Count 277 K/mm3 (150-450); RBC Distribution Width CV 16.1 % (11.6-14.6); RBC Distribution Width SD 53.1 fl (35.1-43.9); Red Blood Count 3.86 M/mm3 (4.2-5.4)
[2022-09-14 06:36] LABS: ALB/GLOB Ratio 0.6 RATIO (0.9-2.4); AST(SGOT) 23 U/L (15-37); Alanine Aminotransfer ALT/SGPT 36 U/L (13-56); Albumin, Serum 2.5 g/dL (3.2-5.0); Alkaline Phosphatase 73 U/L (45-117); Anion Gap 2 (5-15); BUN 8 mg/dL (7-18); BUN/Creat Ratio 34.8 RATIO (10-20); Calcium,Total 8.3 mg/dL (8.5-10.1); Chloride 106 mmol/L (98-107); Creatinine, Serum 0.23 mg/dL (0.55-1.02); EST Glomerular Filtration Rate 342 mL/min (>60); Est Glom Filt Rate - Afr Amer 414 mL/min (>60); Estimated Creatinine Clearance 225.72 ml/min; Globulin 4.2 g/dL (2.2-4.2); Glucose 117 mg/dL (74-106); Potassium 3.8 mmol/L (3.5-5.1); Protein, Total 6.7 g/dL (6.4-8.2); Sodium Level 139 mmol/L (136-145)
[2022-09-14 08:05] VITALS: PULSE 92; RESP 18; O2SAT 98
[2022-09-14 09:40] VITALS: BP 108/53; PULSE 95; RESP 18; TEMP 37.2; O2SAT 95
[2022-09-14] MEDS: guaiFENesin 1,200 MG Tablet 1200 MG PO (11:00)
[2022-09-14] MEDS: Senna Tablet 2 TABLET PO (11:00)
[2022-09-14] MEDS: Loratadine 10 MG Tablet PO (11:00)
[2022-09-14] MEDS: Tolterodine Tartrate 4 MG CAP.SA PO (11:00)
--- NOTE | 2022-09-14 11:00 | PCM.CONS.GEN ---
Assessment & Plan Assessment/Plan (1) Pneumonia: PLAN: Strongly suspect viral pneumonia at this point will discontinue parenteral antibacterial therapy and continue supportive care. HPI Consult Data Date of Consult: 09/14/22 HPI Narrative Reason for Consultation: Pneumonia/urinary tract infection HPI Narrative: HENRIK GARCIA, is a 47 F who presents from [facility] with a history of spinal cord disease has a suprapubic Mccarthy catheter in place who presents with chest congestion/productive phlegm. Patient has underlying lung disease and baseline on 4 L of oxygen at the facility. Low-grade fever during this admission initially. Chest film reviewed. Blood cultures remain sterile. Respiratory specimen isolated rhinovirus. No hemoptysis. No pleuritic chest pain. Patient overall clinically stable on broad-spectrum antimicrobial therapy empirically. No gastrointestinal distress. Overall hemodynamically stable. 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 Hx: UTI (urinary tract infection) Hypothyroidism Left femoral shaft fracture Malnutrition of mild degree Neuromuscular dysfunction of bladder Paraplegia Pre-operative cardiovascular exam, new EKG abnormalities c/w ischemia Quadriparesis Right ischial pressure sore, stage 4 Spinal cord injury (2010) Suprapubic catheter Home Medications levothyroxine 75 mcg tablet 75 mcg PO DAILY 05/28/15 [History Last Taken 04/22/21] duloxetine 60 mg capsule,delayed release 90 mg PO QHS 08/21/15 [History Last Taken 04/21/21] baclofen 10 mg tablet 40 mg PO Q6H SPASMS 08/16/16 [History Last Taken 04/22/21] acetaminophen 325 mg tablet 650 mg PO Q4H PRN PRN Pain 03/01/18 [History Last Taken 04/21/21] bisacodyl 10 mg rectal suppository 10 mg [place] QHS PRN Constipation 03/01/18 [History Last Taken 04/21/21] omeprazole 20 mg capsule,delayed release 20 mg PO LUNCH 03/01/18 [History Last Taken 04/22/21] furosemide 40 mg tablet 40 mg PO BREAKFAST 05/26/18 [History Last Taken 04/22/21] sennosides 8.6 mg tablet 17.2 mg PO BID 08/16/18 [History Last Taken 04/22/21] cholecalciferol (vitamin D3) 50 mcg (2,000 unit) capsule 2,000 unit PO LUNCH SUPPLEMENT 08/08/19 [History Last Taken 04/22/21] polyethylene glycol 3350 17 gram oral powder packet 17 gm PO QHS 08/08/19 [History Last Taken 04/21/21] docusate sodium 100 mg capsule (Colace) 200 mg PO QHS 10/11/20 [History Last Taken 04/21/21] furosemide 20 mg tablet 20 mg PO LUNCH 04/21/21 [History Last Taken 04/22/21] buspirone 7.5 mg tablet 10 mg PO TID 04/22/21 [History Last Taken 04/22/21] gabapentin 800 mg tablet 1,600 mg PO TID NEUROPATHY 04/22/21 [History Last Taken 04/22/21] isosorbide mononitrate 30 mg tablet,extended release 24 hr 30 mg PO QHS 04/22/21 [History Last Taken 04/21/21] oxybutynin chloride 10 mg tablet,extended release 24 hr 30 mg PO DAILY BLADDER 04/22/21 [History Last Taken 04/22/21] potassium chloride 10 mEq capsule,extended release 10 meq PO DAILY 04/22/21 [History Last Taken 04/22/21] phenazopyridine 200 mg tablet (Pyridium) 200 mg PO TID PRN Bladder Spasms 05/27/21 [History Last Taken Unknown] loperamide 2 mg tablet 1 mg PO Q4H PRN Diarrhea 06/03/22 [History Last Taken Unknown] magnesium hydroxide 400 mg/5 mL oral suspension (Milk of Magnesia) 30 ml PO DAILY PRN Constipation 06/03/22 [History Last Taken Unknown] melatonin 5 mg tablet 5 mg PO QHS 06/03/22 [History Last Taken Unknown] mirtazapine 30 mg tablet 15 mg PO QHS 06/03/22 [History Last Taken Unknown] ondansetron HCl 4 mg tablet 4 mg PO Q4H PRN Nausea 06/03/22 [History Last Taken Unknown] paroxetine HCl 10 mg tablet 10 mg PO QHS 06/03/22 [History Last Taken Unknown] simethicone 80 mg tablet 80 mg PO DAILY PRN Gastric Reflux 06/03/22 [History Last Taken Unknown] buprenorphine 15 mcg/hour weekly transdermal patch (Butrans) 1 mcg transdermal QWEEK 09/12/22 [History Last Taken Unknown] cephalexin 250 mg capsule 250 mg PO DAILY 09/12/22 [History Last Taken Unknown] cetirizine 10 mg tablet 10 mg PO DAILY 09/12/22 [History Last Taken Unknown] Allergy/AdvReac Type Severity Reaction Status Date / Time apixaban [From Eliquis] Allergy Rash Verified 09/12/22 09:06 coconut oil Allergy cant breath Verified 09/12/22 09:06 mometasone furoate Allergy Rash Verified 09/12/22 09:06 [From Elocon] morphine Allergy NEEDS Verified 09/12/22 09:06 FOLLOW-UP nitrofurantoin Allergy Unknown Verified 09/12/22 09:06 rivaroxaban [From Xarelto] Allergy Rash Verified 09/12/22 09:06 Sulfa (Sulfonamide Allergy Shortness Verified 09/12/22 09:06 Antibiotics) of breath Penicillins AdvReac NEEDS Verified 09/12/22 09:06 FOLLOW-UP Family History Mother Diabetes Grandfather CAD (coronary artery disease) Colon cancer Grandmother Breast cancer Aunt Ovarian cancer Surgical History History of tracheostomy (2010) Social History Smoking Status: Never smoker ROS ROS Narrative As stated in history of present illness others negative Physical Exam Narrative Alert responsive does not appear toxic on nasal cannula O2. Lungs with some scattered rhonchi heart exam S1-S2 abdomen is obese but soft. Mccarthy catheter in place/suprapubic Lab / Micro Data Result Diagrams: 09/14/22 05:29 09/14/22 05:29 Labs: Laboratory Results - last 24 hr 09/13/22 09:35: MRSA (PCR) POSITIVE H 09/14/22 05:29: WBC 9.0, RBC 3.86 L, Hgb 10.1 L, Hct 34.7 L, MCV 89.9, MCH 26.2 L, MCHC 29.1 L, RDW Std Deviation 53.1 H, RDW Coeff of Juan Antonio 16.1 H, Plt Count 277, MPV 9.2, Immature Gran % (Auto) 0.400, Neut % (Auto) 62.5, Lymph % (Auto) 24.0, [place] % (Auto) 8.3, Eos % (Auto) 4.2, Baso % (Auto) 0.6, Absolute Neuts (auto) 5.6, Absolute Lymphs (auto) 2.16, Nucleated RBC % 0 09/14/22 05:29: Sodium 139, Potassium 3.8, Chloride 106, Carbon Dioxide 31.0, Anion Gap 2 L, BUN 8, Creatinine 0.23 L, Estim Creat Clear Calc 225.72, Est GFR (MDRD) Af Amer 414, Est GFR (MDRD) Non-Af 342, BUN/Creatinine Ratio 34.8 H, Glucose 117 H, Calcium 8.3 L, Total Bilirubin 0.20, AST 23, ALT 36, Alkaline Phosphatase 73, Total Protein 6.7, Albumin 2.5 L, Globulin 4.2, Albumin/Globulin Ratio 0.6 L Micro: Microbiology 09/13/22 09:35 Suprapubic Tap Urine Culture - Preliminary 09/13/22 09:35 Urine Catheter - Catheter Legionella Antigen - Final 09/13/22 09:35 Urine Catheter - Catheter Streptococcus pneumoniae Antigen (M - Final
[2022-09-14 11:20] VITALS: PULSE 88; RESP 18
--- NOTE | 2022-09-14 11:29 | CASEMGMT ---
SW spoke with patient regarding discharge planning and patient reports she would like to return to [facility] [place]. Pt declined list of SNF providers. Kelly Kim FOOD AND BEVERAGE ASSISTANT, HIGH LIFT DRIVER
--- NOTE | 2022-09-14 11:43 | PCM.PN.HOSP ---
Reason for Visit Reason for Visit: Diagnoses Pneumonia, unspecified organism (09/12/22) Subjective Subjective Patient is a 47-year-old lady with paraplegia secondary to spinal cord injury in 2010 presented with shortness of breath CT demonstrated a right-sided pneumonia admitted to monitored bed for further manage Objective Data Objective Data Vital Signs: Vital Signs Temp Pulse Resp BP Pulse Ox O2 Del Method O2 Flow Rate 99.0 F 95 18 108/53 L 95 Nasal Cannula 5 09/14/22 09:40 09/14/22 09:40 09/14/22 09:40 09/14/22 09:40 09/14/22 09:40 09/14/22 09:40 09/14/22 09:40 Oxygen Flow Rate (L/min) 5 Oxygen Delivery Method Nasal Cannula Weight: 121.8 kg Body Mass Index (BMI) 50.7 Intake & Output: Intake and Output for Last 24 Hours 09/12/22 09/13/22 09/14/22 23:59 23:59 23:59 Intake Total 2865 / 2865 1795 / 1795 540 / 540 Output Total 1575 / 1975 1000 / 1000 Balance 2864 / 2364 220 / -180 -460 / -460 Lab / Micro Data Result Diagrams: 09/14/22 05:29 09/14/22 05:29 Labs: Laboratory Results - last 24 hr 09/13/22 09:35: MRSA (PCR) POSITIVE H 09/14/22 05:29: WBC 9.0, RBC 3.86 L, Hgb 10.1 L, Hct 34.7 L, MCV 89.9, MCH 26.2 L, MCHC 29.1 L, RDW Std Deviation 53.1 H, RDW Coeff of Juan [place] 16.1 H, Plt Count 277, MPV 9.2, Immature Gran % (Auto) 0.400, Neut % (Auto) 62.5, Lymph % (Auto) 24.0, [place] % (Auto) 8.3, Eos % (Auto) 4.2, Baso % (Auto) 0.6, Absolute Neuts (auto) 5.6, Absolute Lymphs (auto) 2.16, Nucleated RBC % 0 09/14/22 05:29: Sodium 139, Potassium 3.8, Chloride 106, Carbon Dioxide 31.0, Anion Gap 2 L, BUN 8, Creatinine 0.23 L, Estim Creat Clear Calc 225.72, Est GFR (MDRD) Af Amer 414, Est GFR (MDRD) Non-Af 342, BUN/Creatinine Ratio 34.8 H, Glucose 117 H, Calcium 8.3 L, Total Bilirubin 0.20, AST 23, ALT 36, Alkaline Phosphatase 73, Total Protein 6.7, Albumin 2.5 L, Globulin 4.2, Albumin/Globulin Ratio 0.6 L Micro: Microbiology 09/13/22 09:35 Suprapubic Tap Urine Culture - Preliminary 09/13/22 09:35 Urine Catheter - Catheter Legionella Antigen - Final 09/13/22 09:35 Urine Catheter - Catheter Streptococcus pneumoniae Antigen (M - Final 09/12/22 16:29 Mucosa - Nose Respiratory Panel (PCR) - Final Rhinovirus 09/12/22 09:32 Nasal Secretion SARS-CoV-2 & FLU Antigen (Rapid) - Final Physical Exam Narrative GENERAL: cooperative HEENT: Atraumatic; normocephalic EYES; Anicteric, Normal Conjunctiva NECK; supple, normal thyroid, RESPIRATORY: Diminished to auscultation CARDIOVASCULAR: Regular S1 S2, GI: soft, normoactive bowel sounds, : No Renal angle tenderness; EXTREMITIES: No edema, no clubbing, MUSCULOSKELETAL: no muscle wasting NEURO: Awake; paraplegic SKIN: No Rash PSYCH; Flat affect Assessment & Plan Assessment/Plan (1) Pneumonia: PLAN: Plan Patient is a 47-year-old lady with paraplegia secondary to spinal cord injury in 2010 presented with shortness of breath CT demonstrated a right-sided pneumonia admitted to monitored bed for further management 1. Pneumonia ? Initially thought to be bacterial placed on broad-spectrum antibiotic therapy. Patient seen by Dr. Ho with ID who recommended discontinuation of IV antibiotics his suspicion was patient 2. Neurogenic bladder ? Status post suprapubic catheter placement ? Patient has history of recurrent bladder infection 3. Paraplegia ? From spinal cord injury supportive care 4. GERD ? On PPI 5. Hypothyroidism - Patient is on levothyroxine home dose continued 6. Class III obesity with BMI of 50.7 ? Weight loss advised 7. DVT prophylaxis - On enoxaparin Time spent in the patient's overall evaluation,decision-making process, review of diagnostic data, adjustment of management, discussion with other providers, nursing nursing and ancillary staff involved in patient's care documentation, 38-minute minutes Charges/Coding Visit Charges Inpatient E&M: 24216 Subs Hosp L2
--- NOTE | 2022-09-14 11:44 | CASEMGMT ---
Addendum entered by Audrey Chen 09/14/22 11:45: Social Work No precert is needed for pt to return, she has a bed hold. MEGHANN Swann Original Note: Social Work SW sent updates via [facility] to [facility]. MEGHANN Swann
[2022-09-14] MEDS: 0.9% Saline Lock 10 ML Syringe IV (12:28)
[2022-09-14] MEDS: Pantoprazole Sodium 20 MG Tablet PO (12:28)
--- NOTE | 2022-09-14 12:41 | PCM.TXEXTCAR ---
Diet Diet Order/Speech Therapy: 09/12/22 15:51 Diet: Cardiac: Calorie-Controlled Food consistency:: Regular Liquid Consistency:: Regular/Thin How many daily calories?: 1999 calorie Problem/Diagnosis (1) Pneumonia: Status: Acute Code(s): J18.9 - Pneumonia, unspecified organism Plan Patient is a 47-year-old lady with paraplegia secondary to spinal cord injury in 2010 presented with shortness of breath CT demonstrated a right-sided pneumonia admitted to monitored bed for further management 1. Pneumonia ? Initially thought to be bacterial placed on broad-spectrum antibiotic therapy. Patient seen by Dr. Ho with ID who recommended discontinuation of IV antibiotics his suspicion was patient 2. Neurogenic bladder ? Status post suprapubic catheter placement ? Patient has history of recurrent bladder infection 3. Paraplegia ? From spinal cord injury supportive care 4. GERD ? On PPI 5. Hypothyroidism - Patient is on levothyroxine home dose continued 6. Class III obesity with BMI of 50.7 ? Weight loss advised 7. DVT prophylaxis - On enoxaparin Time spent in the patient's overall evaluation,decision-making process, review of diagnostic data, adjustment of management, discussion with other providers, nursing nursing and ancillary staff involved in patient's care documentation, 38-minute minutes Allergies/Procedures Done in Hospital Allergies apixaban [From Eliquis] Allergy (Verified 09/12/22 09:06) Rash coconut oil Allergy (Verified 09/12/22 09:06) cant breath mometasone furoate [From Elocon] Allergy (Verified 09/12/22 09:06) Rash morphine Allergy (Verified 09/12/22 09:06) NEEDS FOLLOW-UP nitrofurantoin Allergy (Verified 09/12/22 09:06) Unknown rivaroxaban [From Xarelto] Allergy (Verified 09/12/22 09:06) Rash Sulfa (Sulfonamide Antibiotics) Allergy (Verified 09/12/22 09:06) Shortness of breath Penicillins Adverse Reaction (Verified 09/12/22 09:06) NEEDS FOLLOW-UP Type of Care/Length of Stay Estimated LOS: Convalescent Care Less Than 30 days Type of Care Needed: Skilled Rehab Potential: Good Prognosis: Good Additional Orders/Day of Discharge Day of Discharge: 09/14/22 Discharge Plan Admission Admit Date/Time: 09/12/22 14:49 Attending Provider: Renzo Alva Primary Care Provider: Lavon Vicente Consulting Providers: Shari Pastor ; Paul Walsh Discharge Orders/Prescriptions Prescriptions: Continued levothyroxine 75 MCG tablet 75 mcg PO DAILY Label Comments: HYPOTHYROIDISM duloxetine 60 MG capsule,delayed release(DR/EC) 90 mg PO QHS Label Comments: ANXIETY baclofen 10 MG tablet 40 mg PO Q6H acetaminophen 325 MG tablet 650 mg PO Q4H PRN PRN (Reason: Pain) bisacodyl 10 MG suppository 10 mg [place] QHS PRN (Reason: Constipation) omeprazole 20 MG capsule,delayed release(DR/EC) 20 mg PO LUNCH furosemide 40 MG tablet 40 mg PO BREAKFAST sennosides 8.6 MG tablet 17.2 mg PO BID polyethylene glycol 3350 17 GM packet 17 gm PO QHS cholecalciferol (vitamin D3) 2,000 UNIT capsule 2,000 unit PO LUNCH docusate sodium [Colace] 100 mg Capsule 200 mg PO QHS furosemide 20 mg Tablet 20 mg PO LUNCH isosorbide mononitrate 30 mg Tablet Extended Release 24 Hr 30 mg PO QHS potassium chloride 10 mEq Capsule, Extended Release 10 meq PO DAILY oxybutynin chloride 10 mg Tablet Extended Release 24hr 30 mg PO DAILY gabapentin 800 mg Tablet 1,600 mg PO TID buspirone 7.5 mg Tablet 10 mg PO TID phenazopyridine [Pyridium] 200 mg Tablet 200 mg PO TID PRN (Reason: Bladder Spasms) melatonin 5 mg Tablet 5 mg PO QHS mirtazapine 30 mg Tablet 15 mg PO QHS paroxetine HCl 10 mg Tablet 10 mg PO QHS simethicone 80 mg Tablet 80 mg PO DAILY PRN (Reason: Gastric Reflux) magnesium hydroxide [Milk of Magnesia] 400 mg/5 mL Suspension 30 ml PO DAILY PRN (Reason: Constipation) loperamide 2 mg Tablet 1 mg PO Q4H PRN (Reason: Diarrhea) Rx Instructions: administer after each loose stool until symptoms controlled; do not exceed 8 mg per 24 hrs ondansetron HCl 4 mg Tablet 4 mg PO Q4H PRN (Reason: Nausea) buprenorphine [Butrans] 15 mcg/hour patch weekly 1 mcg transdermal QWEEK cetirizine 10 mg Tablet 10 mg PO DAILY Discontinued cephalexin 250 mg capsule 250 mg PO DAILY Referrals / Follow Up: Lavon Vicente MD [Primary Care Provider] - Within 1 Week Disposition Disposition (needs filled in before D/C Order can be placed): Nursing Home Facility
--- NOTE | 2022-09-14 12:42 | DS.PCM_ITS ---
Providers Date of Admission: 09/12/22 Date of Discharge: 09/14/22 Primary Care Physician: Dr. 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 Pneumonia ? Initially thought to be bacterial placed on broad-spectrum antibiotic therapy. Patient seen by Dr. Ho with ID who recommended discontinuation of IV a ntibiotics his suspicion was patient 2. Neurogenic bladder ? Status post suprapubic catheter placement ? Patient has history of recurrent bladder infection 3. Paraplegia ? From spinal cord injury supportive care 4. GERD ? On PPI 5. Hypothyroidism - Patient is on levothyroxine home dose continued 6. Class III obesity with BMI of 50.7 ? Weight loss advised 7. DVT prophylaxis - On enoxaparin Time spent in the patient's overall evaluation,decision-making process, review of diagnostic data, adjustment of management, discussion with other providers, nursing nursing and ancillary staff involved in patient's care documentation, 38-minute minutes Medications at Discharge Home Medications levothyroxine 75 mcg tablet 75 mcg PO DAILY 05/28/15 duloxetine 60 mg capsule,delayed release 90 mg PO QHS 08/21/15 baclofen 10 mg tablet 40 mg PO Q6H SPASMS 08/16/16 acetaminophen 325 mg tablet 650 mg PO Q4H PRN PRN Pain 03/01/18 bisacodyl 10 mg rectal suppository 10 mg [place] QHS PRN Constipation 03/01/18 omeprazole 20 mg capsule,delayed release 20 mg PO LUNCH 03/01/18 furosemide 40 mg tablet 40 mg PO BREAKFAST 05/26/18 sennosides 8.6 mg tablet 17.2 mg PO BID 08/16/18 cholecalciferol (vitamin D3) 50 mcg (2,000 unit) capsule 2,000 unit PO LUNCH SUPPLEMENT 08/08/19 polyethylene glycol 3350 17 gram oral powder packet 17 gm PO QHS 08/08/19 docusate sodium 100 mg capsule (Colace) 200 mg PO QHS 10/11/20 furosemide 20 mg tablet 20 mg PO LUNCH 04/21/21 buspirone 7.5 mg tablet 10 mg PO TID 04/22/21 gabapentin 800 mg tablet 1,600 mg PO TID NEUROPATHY 04/22/21 isosorbide mononitrate 30 mg tablet,extended release 24 hr 30 mg PO QHS 04/22/21 oxybutynin chloride 10 mg tablet,extended release 24 hr 30 mg PO DAILY BLADDER 04/22/21 potassium chloride 10 mEq capsule,extended release 10 meq PO DAILY 04/22/21 phenazopyridine 200 mg tablet (Pyridium) 200 mg PO TID PRN Bladder Spasms 05/27/21 loperamide 2 mg tablet 1 mg PO Q4H PRN Diarrhea 06/03/22 magnesium hydroxide 400 mg/5 mL oral suspension (Milk of Magnesia) 30 ml PO DAILY PRN Constipation 06/03/22 melatonin 5 mg tablet 5 mg PO QHS 06/03/22 mirtazapine 30 mg tablet 15 mg PO QHS 06/03/22 ondansetron HCl 4 mg tablet 4 mg PO Q4H PRN Nausea 06/03/22 paroxetine HCl 10 mg tablet 10 mg PO QHS 06/03/22 simethicone 80 mg tablet 80 mg PO DAILY PRN Gastric Reflux 06/03/22 buprenorphine 15 mcg/hour weekly transdermal patch (Butrans) 1 mcg transdermal QWEEK 09/12/22 cetirizine 10 mg tablet 10 mg PO DAILY 09/12/22 Hospital Course Summary of Care Provided Minutes Spent on Discharge: 38 Physical Exam Narrative GENERAL: cooperative HEENT: Atraumatic; normocephalic EYES; Anicteric, Normal Conjunctiva NECK; supple, normal thyroid, RESPIRATORY: Diminished to auscultation CARDIOVASCULAR: Regular S1 S2, GI: soft, normoactive bowel sounds, : No Renal angle tenderness; EXTREMITIES: No edema, no clubbing, MUSCULOSKELETAL: no muscle wasting NEURO: Awake; paraplegic SKIN: No Rash PSYCH; Flat affect Weight / BMI Weight Weight: 121.8 kg Body Mass Index (BMI) 50.7 ABG / Lab / Microbiology Data Result Diagrams: 09/14/22 05:29 09/14/22 05:29 Laboratory: Laboratory Results - last 24 hr 09/14/22 05:29: WBC 9.0, RBC 3.86 L, Hgb 10.1 L, Hct 34.7 L, MCV 89.9, MCH 26.2 L, MCHC 29.1 L, RDW Std Deviation 53.1 H, RDW Coeff of Juan Antonio 16.1 H, Plt Count 277, MPV 9.2, Immature Gran % (Auto) 0.400, Neut % (Auto) 62.5, Lymph % (Auto) 24.0, [place] % (Auto) 8.3, Eos % (Auto) 4.2, Baso % (Auto) 0.6, Absolute Neuts (auto) 5.6, Absolute Lymphs (auto) 2.16, Nucleated RBC % 0 09/14/22 05:29: Sodium 139, Potassium 3.8, Chloride 106, Carbon Dioxide 31.0, Anion Gap 2 L, BUN 8, Creatinine 0.23 L, Estim Creat Clear Calc 225.72, Est GFR (MDRD) Af Amer 414, Est GFR (MDRD) Non-Af 342, BUN/Creatinine Ratio 34.8 H, Glucose 117 H, Calcium 8.3 L, Total Bilirubin 0.20, AST 23, ALT 36, Alkaline Phosphatase 73, Total Protein 6.7, Albumin 2.5 L, Globulin 4.2, Albumin/Globulin Ratio 0.6 L Microbiology: Microbiology 09/13/22 09:35 Suprapubic Tap Urine Culture - Preliminary 09/13/22 09:35 Urine Catheter - Catheter Legionella Antigen - Final 09/13/22 09:35 Urine Catheter - Catheter Streptococcus pneumoniae Antigen (M - Final 09/12/22 16:29 Mucosa - Nose Respiratory Panel (PCR) - Final Rhinovirus 09/12/22 09:32 Nasal Secretion SARS-CoV-2 & FLU Antigen (Rapid) - Final D/C Instructions Discharge Diet: No restrictions Discharge Activity: Return to Normal Activity Call your doctor if you observe: Fever of 101 or Higher, Shortness of breath, Fainting spells and Chest pain Meaningful Use Info Meaningful Use Diagnoses (Choose all that apply): None applicable Discharge Plan Admission Admit Date/Time: 09/12/22 14:49 Attending Provider: Renzo Alva Primary Care Provider: Lavon Vicente Consulting Providers: Shari Pastor ; Paul Walsh Discharge Orders/Prescriptions Prescriptions: Continued levothyroxine 75 MCG tablet 75 mcg PO DAILY Label Comments: HYPOTHYROIDISM duloxetine 60 MG capsule,delayed release(DR/EC) 90 mg PO QHS Label Comments: ANXIETY baclofen 10 MG tablet 40 mg PO Q6H acetaminophen 325 MG tablet 650 mg PO Q4H PRN PRN (Reason: Pain) bisacodyl 10 MG suppository 10 mg [place] QHS PRN (Reason: Constipation) omeprazole 20 MG capsule,delayed release(DR/EC) 20 mg PO LUNCH furosemide 40 MG tablet 40 mg PO BREAKFAST sennosides 8.6 MG tablet 17.2 mg PO BID polyethylene glycol 3350 17 GM packet 17 gm PO QHS cholecalciferol (vitamin D3) 2,000 UNIT capsule 2,000 unit PO LUNCH docusate sodium [Colace] 100 mg Capsule 200 mg PO QHS furosemide 20 mg Tablet 20 mg PO LUNCH isosorbide mononitrate 30 mg Tablet Extended Release 24 Hr 30 mg PO QHS potassium chloride 10 mEq Capsule, Extended Release 10 meq PO DAILY oxybutynin chloride 10 mg Tablet Extended Release 24hr 30 mg PO DAILY gabapentin 800 mg Tablet 1,600 mg PO TID buspirone 7.5 mg Tablet 10 mg PO TID phenazopyridine [Pyridium] 200 mg Tablet 200 mg PO TID PRN (Reason: Bladder Spasms) melatonin 5 mg Tablet 5 mg PO QHS mirtazapine 30 mg Tablet 15 mg PO QHS paroxetine HCl 10 mg Tablet 10 mg PO QHS simethicone 80 mg Tablet 80 mg PO DAILY PRN (Reason: Gastric Reflux) magnesium hydroxide [Milk of Magnesia] 400 mg/5 mL Suspension 30 ml PO DAILY PRN (Reason: Constipation) loperamide 2 mg Tablet 1 mg PO Q4H PRN (Reason: Diarrhea) Rx Instructions: administer after each loose stool until symptoms controlled; do not exceed 8 mg per 24 hrs ondansetron HCl 4 mg Tablet 4 mg PO Q4H PRN (Reason: Nausea) buprenorphine [Butrans] 15 mcg/hour patch weekly 1 mcg transdermal QWEEK cetirizine 10 mg Tablet 10 mg PO DAILY Discontinued cephalexin 250 mg capsule 250 mg PO DAILY Referrals / Follow Up: Vicente,Lavon, MD [Primary Care Provider] - Within 1 Week Disposition Disposition (needs filled in before D/C Order can be placed): Custodial Facility Charges/Coding Visit Charges Inpatient E&M: 89658 Disch Hosp >30min
--- NOTE | 2022-09-14 13:25 | CASEMGMT ---
SW notified patient of transportation time scheduled at 2:30. Pt reports needing help gathering her things when she leaves and reported right shoulder pain. Pt's nurse notified. Kelly Kim MANAGER TESTING, SUPERVISOR MULTIFOCAL LENS
--- NOTE | 2022-09-14 13:27 | CASEMGMT ---
Social Work Pt is ready for discharge back to [facility]. Pt has a bed hold there, intermediate level of care. SW sent all discharge paperwork to [facility] via [facility]. SW set up 2:30pm ambulance w/Physicians. SW let pt, pt's daughter, bedside RN and CC know time of transport, all in agreement. MEGHANN Swann
--- NOTE | 2022-09-14 13:49 | PHA.DC.MR ---
Pharmacy Service has performed discharge medication reconciliation for this patient. The patient's discharge medication list was reviewed for discrepancies and discrepancies were resolved. Home Medications levothyroxine 75 mcg tablet 75 mcg PO DAILY 05/28/15 duloxetine 60 mg capsule,delayed release 90 mg PO QHS 08/21/15 baclofen 10 mg tablet 40 mg PO Q6H SPASMS 08/16/16 acetaminophen 325 mg tablet 650 mg PO Q4H PRN PRN Pain 03/01/18 bisacodyl 10 mg rectal suppository 10 mg [place] QHS PRN Constipation 03/01/18 omeprazole 20 mg capsule,delayed release 20 mg PO LUNCH 03/01/18 furosemide 40 mg tablet 40 mg PO BREAKFAST 05/26/18 sennosides 8.6 mg tablet 17.2 mg PO BID 08/16/18 cholecalciferol (vitamin D3) 50 mcg (2,000 unit) capsule 2,000 unit PO LUNCH SUPPLEMENT 08/08/19 polyethylene glycol 3350 17 gram oral powder packet 17 gm PO QHS 08/08/19 docusate sodium 100 mg capsule (Colace) 200 mg PO QHS 10/11/20 furosemide 20 mg tablet 20 mg PO LUNCH 04/21/21 buspirone 7.5 mg tablet 10 mg PO TID 04/22/21 gabapentin 800 mg tablet 1,600 mg PO TID NEUROPATHY 04/22/21 isosorbide mononitrate 30 mg tablet,extended release 24 hr 30 mg PO QHS 04/22/21 oxybutynin chloride 10 mg tablet,extended release 24 hr 30 mg PO DAILY BLADDER 04/22/21 potassium chloride 10 mEq capsule,extended release 10 meq PO DAILY 04/22/21 phenazopyridine 200 mg tablet (Pyridium) 200 mg PO TID PRN Bladder Spasms 05/27/21 loperamide 2 mg tablet 1 mg PO Q4H PRN Diarrhea 06/03/22 magnesium hydroxide 400 mg/5 mL oral suspension (Milk of Magnesia) 30 ml PO DAILY PRN Constipation 06/03/22 melatonin 5 mg tablet 5 mg PO QHS 06/03/22 mirtazapine 30 mg tablet 15 mg PO QHS 06/03/22 ondansetron HCl 4 mg tablet 4 mg PO Q4H PRN Nausea 06/03/22 paroxetine HCl 10 mg tablet 10 mg PO QHS 12/21/22 simethicone 80 mg tablet 80 mg PO DAILY PRN Gastric Reflux 06/03/22 buprenorphine 15 mcg/hour weekly transdermal patch (Butrans) 1 mcg transdermal QWEEK 09/12/22 cetirizine 10 mg tablet 10 mg PO DAILY 09/12/22
[2022-09-14] MEDS: Acetaminophen 325 MG Tablet 650 MG PO (14:02)
[2022-09-14 14:07] VITALS: BP 110/64; PULSE 97; RESP 20; TEMP 36.5; O2SAT 97
--- NOTE | 2022-09-14 14:51 | NURSING ---
[facility] called and report given
== END 2022-09-14 14:57 | disposition skilled nursing facility (03) | DRG 194 ==
LOC: ED 13:52 → PCU 09-13 08:25
PROVIDERS: Admitting Provider Internal Medicine; Emergency Provider Student in an Organized Health Care Education/Training Program; PCP Family Medicine; Visit Provider Internal Medicine
DX: J18.9 Pneumonia, unspecified organism (principal); G82.20 Paraplegia, unspecified; Z68.43 Body mass index [BMI] 50.0-59.9, adult; N39.0 Urinary tract infection, site not specified; E66.01 Morbid (severe) obesity due to excess calories; E03.9 Hypothyroidism, unspecified; K21.9 Gastro-esophageal reflux disease without esophagitis; G89.29 Other chronic pain; B95.2 Enterococcus as the cause of diseases classified elsewhere; N31.9 Neuromuscular dysfunction of bladder, unspecified; Z79.899 Other long term (current) drug therapy; Z79.01 Long term (current) use of anticoagulants; Z66 Do not resuscitate; Z80.0 Family history of malignant neoplasm of digestive organs
CPT/HCPCS: 36415; 71045; 71275; 80048; 80053; 81001; 83605; 83880; 84145; 84443; 84484; 85025; 85379; 87040; 87086; 87088; 87186; 87428; 87449; 87633; 87641; 93005; 94640; 94668; 97161; 97165; 99252; 99285; J2020; J2185; J7030; Q9967; A4216; G0463; J2405

== ENCOUNTER → 2022-09-16 | Outpatient (REF) | payer MEDICARE, MEDICAID, SELFPAY ==
[2022-09-16 08:51] LABS: Hematocrit 33.6 % (37-47); Hemoglobin 9.8 g/dL (12.0-15.0); Mean Corp Hgb Conc 29.2 g/dL (32-36); Mean Corpuscular Volume 89.1 fL (81-99); Mean Platelet Vol. 9.1 fl (6.2-12.0); Platelet Count 304 K/mm3 (150-450); RBC Distribution Width CV 15.8 % (11.6-14.6); Red Blood Count 3.77 M/mm3 (4.2-5.4); White Blood Count 7.9 K/mm3 (4.4-11.0)
[2022-09-16 09:03] LABS: Anion Gap 6 (5-15); BUN 6 mg/dL (7-18); BUN/Creat Ratio 21.1 RATIO (10-20); Calcium,Total 8.7 mg/dL (8.5-10.1); Chloride 99 mmol/L (98-107); Creatinine, Serum 0.28 mg/dL (0.55-1.02); EST Glomerular Filtration Rate 268 mL/min (>60); Est Glom Filt Rate - Afr Amer 324 mL/min (>60); Glucose 131 mg/dL (74-106); Potassium 3.5 mmol/L (3.5-5.1); Sodium Level 137 mmol/L (136-145)
== END ==
LOC: OLS.SW 05:00
PROVIDERS: PCP Family Medicine; Visit Provider Family Medicine
DX: D64.9 Anemia, unspecified (principal)
CPT/HCPCS: 36415; 80048; 85027

== ENCOUNTER → 2022-09-18 | Outpatient (REF) | payer MEDICARE, MEDICAID, SELFPAY ==
[2022-09-18 07:27] LABS: Hematocrit 35.4 % (37-47); Hemoglobin 11.3 g/dL (12.0-15.0); Mean Corp Hgb Conc 31.9 g/dL (32-36); Mean Corpuscular Volume 81.6 fL (81-99); Mean Platelet Vol. 9.7 fl (6.2-12.0); Platelet Count 255 K/mm3 (150-450); RBC Distribution Width CV 15.1 % (11.6-14.6); Red Blood Count 4.34 M/mm3 (4.2-5.4); White Blood Count 8.1 K/mm3 (4.4-11.0)
== END ==
LOC: OLS.SW 05:55
PROVIDERS: PCP Family Medicine; Visit Provider Family Medicine
DX: D64.9 Anemia, unspecified (principal)
CPT/HCPCS: 36415; 85027

== ENCOUNTER 2022-10-28 13:30 | Day surgery (SDC) | payer MEDICARE, MEDICAID, SELFPAY ==
[2022-10-28] VITALS (8 sets, daily range): BP systolic 84–120; BP diastolic 52–102; PULSE 83–94; RESP 16–18; TEMP 36.4–36.8; O2SAT 95–98; BMI 49.7
[2022-10-28] MEDS: Lidocaine 0.5% (50 ml) 50 ML Vial (13:43)
[2022-10-28] MEDS: Triamcinolone Acetonide 40 MG/ML Vial (13:43)
[2022-10-28] MEDS: Lactated Ringers 1,000 ML 15 ML IV (14:05)
--- NOTE | 2022-10-28 14:15 | RAD_ITS ---
PROCEDURE: Caudal block. DATE OF EXAMINATION: October 28, 2022 INDICATION: Female, 47 years old. Chronic low back pain. FLUOROSCOPY TIME (if supplied): (9 seconds) minutes/seconds. 9.31 mGy. One image was submitted. RAD/Spine 1 View Any Level IMPRESSION: Intraoperative imaging provided for caudal block. Electronically Signed: Roosevelt Galvez MD at 9:02 EDT ,
--- NOTE | 2022-10-28 15:55 | SUR.PHASEII ---
patient awaiting transport back to care facility.
== END 2022-10-28 18:05 | disposition home or self-care (01) ==
LOC: SDC 13:38 → AC 13:38
PROVIDERS: PCP Family Medicine; Referring Provider Anesthesiology Pain Medicine; Visit Provider Anesthesiology Pain Medicine
PROC: 3E0S3BZ Introduction of Anesthetic Agent into Epidural Space, Percutaneous Approach (ICD-10-PCS; CPT 62282; principal; 2022-10-28 13:55)
DX: M51.17 Intervertebral disc disorders with radiculopathy, lumbosacral region (principal); L89.314 Pressure ulcer of right buttock, stage 4; G82.50 Quadriplegia, unspecified; G20 Parkinson's disease; E44.1 Mild protein-calorie malnutrition; M51.36 Other intervertebral disc degeneration, lumbar region; N31.9 Neuromuscular dysfunction of bladder, unspecified; E03.9 Hypothyroidism, unspecified; E66.9 Obesity, unspecified; F32.9 Major depressive disorder, single episode, unspecified; M19.90 Unspecified osteoarthritis, unspecified site; Z79.899 Other long term (current) drug therapy; Z79.890 Hormone replacement therapy
CPT/HCPCS: 62323; 01992; 64483; 72020; J7120

== ENCOUNTER 2022-11-06 08:59 | Emergency (ER) | payer MEDICARE, MEDICAID, SELFPAY ==
[2022-11-06 09:05] VITALS: BP 102/71; PULSE 78; TEMP 36; O2SAT 95; BMI 52.9
--- NOTE | 2022-11-06 09:07 | CT_ITS ---
STUDY: CT BRAIN WITHOUT CONTRAST REASON FOR EXAM: Female, 47 years old. mental status changes, paralyze, best scan possible due to body habitus RADIATION DOSAGE (If Supplied By Facility): CTDIvol = ( 44.99 ) mGy, DLP = ( 863.60 ) mGycm TECHNIQUE: Transaxial CT imaging of the brain was performed without administration of intravenous contrast material. Individualized dose optimization techniques were used for this CT. COMPARISON: Head CT dated July 24, 2022 FINDINGS: Obvious attenuation artifact is present throughout the lower part of the brain and posterior fossa as well as asymmetrically prominent on the left side of the cerebral hemisphere. No dense artery sign is seen that would indicate an acute MCA infarct. Normal soft tissue structures. Normal calvarium. Normal size ventricles and extra-axial spaces for the patient''s age. There are areas of decreased attenuation within the white matter tracts of the supratentorial brain, consistent with microvascular disease changes. Normal basal ganglia and thalami. There is no intracranial hemorrhage. There are no findings of an acute ischemic infarction. Normal visualized paranasal sinuses. CT/Brain/Head without Contrast IMPRESSION: Chronic ischemic changes of the brain. Electronically Signed: Juanjo Regalado MD at 10:34 EDT ,
--- NOTE | 2022-11-06 09:08 | EKG12_ITS ---
Test Reason : ALT LOC Blood Pressure : / mmHG Vent. Rate : 077 BPM Atrial Rate : 077 BPM P-R Int : 134 ms QRS Dur : 090 ms QT Int : 444 ms P-R-T Axes : 022 021 069 degrees QTc Int : 502 ms Normal sinus rhythm Prolonged QT Abnormal ECG Confirmed by BRONWYN HAMILTON, BRANDON ([id number]), news copy editor MAUREEN RAMIREZ ([id number]) on 11/10/2022 10:12:53 AM Referred By: GÓMEZ Confirmed By:BRANDON BARNHART MD
--- NOTE | 2022-11-06 09:11 | EX.ED.DYSGE1 ---
HPI History of Present Illness Chief Complaint: Alt LOC Narrative Narrative: Patient is a 47-year-old female who is presenting from [place] with change in mental status, confusion. Patient has a history of illicit drug use. EMS reports that family has a history of illicit drug use as well. Patient has been to the ER in hospital previously for illicit drug overdoses. It is uncertain if patient ingested anything today or not. Patient is coming from [facility] which is a longterm facility. Patient's physician is Dr. Lavon Vicente. Patient has past medical history of quadriplegia, unspecified. Patient has polyneuropathy, chronic anemia, major depressive disorder, anxiety, hypothyroidism, metabolic encephalopathy, chronic urinary tract infections, GERD. Patient has allergies to Macrobid, penicillins, sulfa. Patient does use baclofen as needed for muscle relaxation, patient also wears a extended buprenorphine transdermal patch. Patient takes Wellbutrin. Patient takes Keflex prophylactically 250 mg a day to help prevent recurrent UTIs. Patient is on Lasix, thyroid medication. Patient appears to be acting at baseline at this time. Patient is answering questions appropriately. Patient has no acute complaints of headache, chest pain, shortness of breath, nausea or vomiting. Patient is moving her arms and legs, does not appear to be quadriplegic. Patient arrived by EMS. No other acute complaints. 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 Hx: UTI (urinary tract infection) Hypothyroidism Left femoral shaft fracture Malnutrition of mild degree Neuromuscular dysfunction of bladder Paraplegia Pre-operative cardiovascular exam, new EKG abnormalities c/w ischemia Quadriparesis Right ischial pressure sore, stage 4 Spinal cord injury (2010) Suprapubic catheter Home Medications levothyroxine 75 mcg tablet 75 mcg PO DAILY 05/28/15 [History Last Taken 04/22/21] duloxetine 60 mg capsule,delayed release 90 mg PO QHS 08/21/15 [History Last Taken 04/21/21] baclofen 10 mg tablet 40 mg PO Q6H SPASMS 08/16/16 [History Last Taken 04/22/21] acetaminophen 325 mg tablet 650 mg PO Q4H PRN PRN Pain 03/01/18 [History Last Taken 04/21/21] bisacodyl 10 mg rectal suppository 10 mg [place] QHS PRN Constipation 03/01/18 [History Last Taken 04/21/21] omeprazole 20 mg capsule,delayed release 20 mg PO LUNCH 03/01/18 [History Last Taken 04/22/21] furosemide 40 mg tablet 40 mg PO BREAKFAST 05/26/18 [History Last Taken 04/22/21] sennosides 8.6 mg tablet 17.2 mg PO BID 08/16/18 [History Last Taken 04/22/21] cholecalciferol (vitamin D3) 50 mcg (2,000 unit) capsule 2,000 unit PO LUNCH SUPPLEMENT 08/08/19 [History Last Taken 04/22/21] polyethylene glycol 3350 17 gram oral powder packet 17 gm PO QHS 08/08/19 [History Last Taken 04/21/21] docusate sodium 100 mg capsule (Colace) 200 mg PO QHS 10/11/20 [History Last Taken 04/21/21] furosemide 20 mg tablet 20 mg PO LUNCH 04/21/21 [History Last Taken 04/22/21] buspirone 7.5 mg tablet 10 mg PO TID 04/22/21 [History Last Taken 04/22/21] gabapentin 800 mg tablet 1,600 mg PO TID NEUROPATHY 04/22/21 [History Last Taken 04/22/21] isosorbide mononitrate 30 mg tablet,extended release 24 hr 30 mg PO QHS 04/22/21 [History Last Taken 04/21/21] oxybutynin chloride 10 mg tablet,extended release 24 hr 30 mg PO DAILY BLADDER 04/22/21 [History Last Taken 04/22/21] potassium chloride 10 mEq capsule,extended release 10 meq PO DAILY 04/22/21 [History Last Taken 04/22/21] phenazopyridine 200 mg tablet (Pyridium) 200 mg PO TID PRN Bladder Spasms 05/27/21 [History Last Taken Unknown] loperamide 2 mg tablet 1 mg PO Q4H PRN Diarrhea 06/03/22 [History Last Taken Unknown] magnesium hydroxide 400 mg/5 mL oral suspension (Milk of Magnesia) 30 ml PO DAILY PRN Constipation 06/03/22 [History Last Taken Unknown] melatonin 5 mg tablet 5 mg PO QHS 06/03/22 [History Last Taken Unknown] mirtazapine 30 mg tablet 15 mg PO QHS 06/03/22 [History Last Taken Unknown] ondansetron HCl 4 mg tablet 4 mg PO Q4H PRN Nausea 06/03/22 [History Last Taken Unknown] paroxetine HCl 10 mg tablet 20 mg PO QHS 06/03/22 [History Last Taken Unknown] simethicone 80 mg tablet 80 mg PO DAILY PRN Gastric Reflux 06/03/22 [History Last Taken Unknown] buprenorphine 15 mcg/hour weekly transdermal patch (Butrans) 1 mcg transdermal QWEEK 09/12/22 [History Last Taken Unknown] cetirizine 10 mg tablet 10 mg PO DAILY 09/12/22 [History Last Taken Unknown] cephalexin 250 mg capsule 250 mg PO DAILY 11/06/22 [History Last Taken Unknown] ciprofloxacin HCl 500 mg tablet 500 mg PO BID #20 TABLETS 11/06/22 [Rx Last Taken Unknown] Allergy/AdvReac Type Severity Reaction Status Date / Time apixaban [From Eliquis] Allergy Rash Verified 09/12/22 09:06 coconut oil Allergy cant breath Verified 09/12/22 09:06 mometasone furoate Allergy Rash Verified 09/12/22 09:06 [From Elocon] nitrofurantoin Allergy Unknown Verified 09/12/22 09:06 rivaroxaban [From Xarelto] Allergy Rash Verified 09/12/22 09:06 Sulfa (Sulfonamide Allergy Shortness Verified 09/12/22 09:06 Antibiotics) of breath Penicillins AdvReac NEEDS Verified 09/12/22 09:06 FOLLOW-UP Family History Mother Diabetes Grandfather CAD (coronary artery disease) Colon cancer Grandmother Breast cancer Aunt Ovarian cancer Surgical History History of tracheostomy (2010) Social History Smoking Status: Never smoker ROS ROS ED ROS Narrative REVIEW OF SYSTEMS: Unless otherwise stated in this report the patient's positive and negative responses for review of systems for constitutional, eyes, ENT, cardiovascular, respiratory, gastrointestinal, neurological, , musculoskeletal, and integument systems and related systems to the presenting problem are either stated in the history of present illness or were not pertinent or were negative for the symptoms and/or complaints related to the presenting medical problem. EXAM Physical Exam Narrative Exam Narrative: Vital signs reviewed and patient is not hypoxic. General: The patient appears well and in no apparent distress. Patient is resting comfortably on cart. Not toxic, lethargic, or listless. Poor hygiene, patient arrived from nursing facility. Skin: Warm, dry, no pallor noted. There is no rash noted. Patient states that she has no skin breakdown to her sacrum or coccyx. Head: Normocephalic, atraumatic Eye: Normal conjunctiva, no drainage, EOMI. PERRL. Pupils are 3/2, equal, bilateral. Ears, Nose, Mouth, and Throat: oral mucosa is moist. Nares patent. Mouth without vesicles. Cardiovascular: Regular Rate and Rhythm, no murmurs, gallops, or rubs Respiratory: Patient is in no distress, no accessory muscle use, lungs are clear to auscultation, no wheezing, rales or rhonchi Back: non-tender, no CVA tenderness bilaterally to percussion. NO CTLS midline or paraspinal tenderness to palpation. GI: Soft, morbidly obese, morbidly obese, no tenderness to palpation, no masses appreciated. No rebound, guarding, or rigidity noted. Musculoskeletal: The patient has full range of motion of all extremities and joints with no difficulty. Patient does have movement of her arms, patient does have plantar and dorsiflexion of bilateral feet equally. Patient has no motor, no sensory deficits that are new or acute according to EMS inside her normal baseline.. Patient does have indwelling Mccarthy catheter. Neurological: A&O x2, slightly confused at time, normal speech, no focal or acute new neurological deficits. Psychiatric: Cooperative Const Vital Signs: 11/06/22 09:05 11/06/22 09:15 11/06/22 10:03 Temperature 96.8 F L Temperature Source Temporal Pulse Rate 78 62 Respiratory Rate 10 L Blood Pressure 102/71 120/89 H Blood Pressure Mean 81 99 Pulse Ox 95 97 Oxygen Delivery Method Nasal Cannula Nasal Cannula Nasal Cannula Oxygen Flow Rate (L/min) 2 2 2 11/06/22 12:13 11/06/22 12:50 11/06/22 13:13 Temperature Temperature Source Pulse Rate 64 65 76 Respiratory Rate 16 16 18 Blood Pressure 102/85 H 109/74 117/85 H Blood Pressure Mean 90 95 Pulse Ox 96 96 99 Oxygen Delivery Method Nasal Cannula Nasal Cannula Oxygen Flow Rate (L/min) 2 [facility] Lab Data Labs: Laboratory Results - last 24 hr 11/06/22 11/06/22 11/06/22 09:10 09:10 09:10 WBC 11.9 H RBC 4.64 Hgb 11.8 L Hct 38.5 MCV 83.0 MCH 25.4 L MCHC 30.6 L RDW Std Deviation 47.9 H RDW Coeff of Juan Antonio 15.9 H Plt Count 360 MPV 9.0 Immature Gran % (Auto) 0.600 Neut % (Auto) 64.3 Lymph % (Auto) 28.6 [place] % (Auto) 4.8 Eos % (Auto) 1.3 Baso % (Auto) 0.4 Absolute Neuts (auto) 7.6 Absolute Lymphs (auto) 3.39 Nucleated RBC % 0 Sodium 143 Potassium 4.5 Chloride 103 Carbon Dioxide 36.0 H Anion Gap 4 L BUN 12 Creatinine 0.45 L Estim Creat Clear Calc 115.37 Est GFR (MDRD) Af Amer 192 Est GFR (MDRD) Non-Af 159 BUN/Creatinine Ratio 26.8 H Glucose 157 H Lactic Acid Calcium 8.7 Total Bilirubin 0.30 AST 33 ALT 58 H Alkaline Phosphatase 117 Total Protein 7.7 Albumin 3.1 L Globulin 4.6 H Albumin/Globulin Ratio 0.7 L Lipase 42 Urine Color Urine Clarity Urine pH Ur Specific [place] Urine Protein Urine Glucose (UA) Urine Ketones Urine Occult Blood Urine Nitrite Urine Bilirubin Urine Urobilinogen Ur Leukocyte Esterase Urine RBC Urine WBC Ur Squamous Epith Cells Urine Bacteria Urine Mucus Urine Opiates Screen Urine Methadone Screen Ur Barbiturates Screen Ur Phencyclidine Scrn Ur Amphetamines Screen MDMA (Ecstasy) Screen U Benzodiazepines Scrn Urine Cocaine Screen U Cannabinoids Screen Ur Drug Screen Comment Ethyl Alcohol 6.0 11/06/22 11/06/22 11/06/22 09:10 10:51 10:51 WBC RBC Hgb Hct MCV MCH MCHC RDW Std Deviation RDW Coeff of Juan Antonio Plt Count MPV Immature Gran % (Auto) Neut % (Auto) Lymph % (Auto) [place] % (Auto) Eos % (Auto) Baso % (Auto) Absolute Neuts (auto) Absolute Lymphs (auto) Nucleated RBC % Sodium Potassium Chloride Carbon Dioxide Anion Gap BUN Creatinine Estim Creat Clear Calc Est GFR (MDRD) Af Amer Est GFR (MDRD) Non-Af BUN/Creatinine Ratio Glucose Lactic Acid 1.2 Calcium Total Bilirubin AST ALT Alkaline Phosphatase Total Protein Albumin Globulin Albumin/Globulin Ratio Lipase Urine Color Yellow Urine Clarity Cloudy Urine pH 6.5 Ur Specific [place] 1.020 Urine Protein 100 H Urine Glucose (UA) Normal Urine Ketones Negative Urine Occult Blood 150 H Urine Nitrite Positive H Urine Bilirubin Negative Urine Urobilinogen Normal Ur Leukocyte Esterase 500 H Urine RBC 0 SEEN Urine WBC >100 SEEN Ur Squamous Epith Cells 0-5 SEEN Urine Bacteria 3+ Urine Mucus 0 SEEN Urine Opiates Screen NEGATIVE Urine Methadone Screen NEGATIVE Ur Barbiturates Screen NEGATIVE Ur Phencyclidine Scrn NEGATIVE Ur Amphetamines Screen NEGATIVE MDMA (Ecstasy) Screen NEGATIVE U Benzodiazepines Scrn NEGATIVE Urine Cocaine Screen NEGATIVE U Cannabinoids Screen NEGATIVE Ur Drug Screen Comment Ethyl Alcohol Patient has positive nitrites, leuk esterase positive, greater than 100 white blood cells, bacteria seen as well, urine culture is pending. ABG Data ABG results: ABG 11/06/22 09:27 Specimen Type BHUPINDER VBG pH 7.41 VBG pO2 48 H VBG HCO3 34 H VBG Total CO2 36 H VBG O2 Sat (Calc) 82 H VBG Base Excess 9 H POC Mix VBG pCO2 Pt Tmp 54.1 H O2 Delivery Device Cannula Liter Flow 2.0 Radiography Chest X-Ray - ED: 2 View and Read by ED Physician (Chest x-ray shows no acute new pleural effusions, infiltrate, or any new acute cardiopulmonary disease. ) Diagnostic Testing: Clinical Impression(s) from Imaging Studies Brain CT 11/06/22 09:07 IMPRESSION: Chronic ischemic changes of the brain. Electronically Signed: Juanjo Regalado MD at 10:34 EDT , Chest X-Ray 11/06/22 10:20 IMPRESSION: 1. Appearance of chronic pulmonary vascular congestion and interstitial prominence similar to what was seen on the September 12, 2022 study. No definite new area of consolidation is seen. Electronically Signed: Juanjo Regalado MD at 10:58 EDT Reading Location ID and State: [facility] / [place] , Service support , EKG Initial EKG: Attestation: I personally reviewed and interpreted this EKG as follows: Comments: EKG interpretation. Artifact noted. Normal sinus rhythm at 77 beats a minute. Normal axis deviation. No acute ST elevation, no acute ectopy. QTc of 502 Additional Tests and Interventions Additional Tests or Interventions: Patient has responded somewhat to IV fluids and feels better. Patient does have evidence of urinary tract infection, IV Rocephin has been given. Patient does take Keflex prophylactically every day to prevent her chronic urinary tract infections. Patient will be placed on Cipro for 7 days to help treat chronic urinary tract infection. Patient does have indwelling Mccarthy catheter. Patient will be transferred back to nursing facility for antibiotics, continue hydration, and follow-up with correction physician Dr Jay Discharge Plan Triage Chief Complaint: Alt LOC ED Provider: Brendon Acharya Dx/Rx/DC Orders Clinical Impression: Confusion, Dehydration, UTI (urinary tract infection) Instructions: Urinary Tract Infections in Women, Dehydration, ED Confusion Prescriptions: New ciprofloxacin HCl [ciprofloxacin HCl] 500 mg tablet 500 mg PO BID Qty: 20 0RF No Action levothyroxine 75 MCG tablet 75 mcg PO DAILY Label Comments: HYPOTHYROIDISM duloxetine 60 MG capsule,delayed release(DR/EC) 90 mg PO QHS Label Comments: ANXIETY baclofen 10 MG tablet 40 mg PO Q6H acetaminophen 325 MG tablet 650 mg PO Q4H PRN PRN (Reason: Pain) bisacodyl 10 MG suppository 10 mg [place] QHS PRN (Reason: Constipation) omeprazole 20 MG capsule,delayed release(DR/EC) 20 mg PO LUNCH furosemide 40 MG tablet 40 mg PO BREAKFAST sennosides 8.6 MG tablet 17.2 mg PO BID polyethylene glycol 3350 17 GM packet 17 gm PO QHS cholecalciferol (vitamin D3) 2,000 UNIT capsule 2,000 unit PO LUNCH docusate sodium [Colace] 100 mg Capsule 200 mg PO QHS furosemide 20 mg Tablet 20 mg PO LUNCH isosorbide mononitrate 30 mg Tablet Extended Release 24 Hr 30 mg PO QHS potassium chloride 10 mEq Capsule, Extended Release 10 meq PO DAILY oxybutynin chloride 10 mg Tablet Extended Release 24hr 30 mg PO DAILY gabapentin 800 mg Tablet 1,600 mg PO TID buspirone 7.5 mg Tablet 10 mg PO TID phenazopyridine [Pyridium] 200 mg Tablet 200 mg PO TID PRN (Reason: Bladder Spasms) melatonin 5 mg Tablet 5 mg PO QHS mirtazapine 30 mg Tablet 15 mg PO QHS paroxetine HCl 10 mg Tablet 20 mg PO QHS simethicone 80 mg Tablet 80 mg PO DAILY PRN (Reason: Gastric Reflux) magnesium hydroxide [Milk of Magnesia] 400 mg/5 mL Suspension 30 ml PO DAILY PRN (Reason: Constipation) loperamide 2 mg Tablet 1 mg PO Q4H PRN (Reason: Diarrhea) Rx Instructions: administer after each loose stool until symptoms controlled; do not exceed 8 mg per 24 hrs ondansetron HCl 4 mg Tablet 4 mg PO Q4H PRN (Reason: Nausea) buprenorphine [Butrans] 15 mcg/hour patch weekly 1 mcg transdermal QWEEK cetirizine 10 mg Tablet 10 mg PO DAILY cephalexin 250 mg capsule 250 mg PO DAILY Primary Care Provider: Lavon Vicente Referrals: Lavon Vicente MD [Primary Care Provider] - Activity Restrictions/Additional Instructions: Increase fluids Disposition Disposition: Home, Self Care
[2022-11-06] MEDS: 0.9% Normal Saline 1,000 ML 150 ML IV (09:26)
[2022-11-06 09:27] LABS: Absolute Lymphocyte Count 3.39 X10^3/uL (0.83-4.51); Absolute Neutrophil Count 7.6 X10^3/uL (2.0-7.7); Basophil# 0.05 X10^3/uL; Basophil% 0.4 % (0-1); Eosinophil# 0.15 X10^3/uL; Eosinophils% 1.3 % (0-5); Hematocrit 38.5 % (37-47); Hemoglobin 11.8 g/dL (12.0-15.0); Lymphocyte # 3.39 X10^3/ul (0.83-4.51); Lymphocyte % 28.6 % (19-41); Mean Corp Hgb Conc 30.6 g/dL (32-36); Mean Corpuscular Hgb 25.4 pg (27.0-32.0); Monocyte# 0.57 X10^3/uL; Monocyte% 4.8 % (0-10); NRBC Flagged by Analyzer 0 % (0-5); Neutrophil # 7.64 X10^3/uL (2.7-7.7); Neutrophil % 64.3 % (47-70); Platelet Count 360 K/mm3 (150-450); RBC Distribution Width CV 15.9 % (11.6-14.6); RBC Distribution Width SD 47.9 fl (35.1-43.9); Red Blood Count 4.64 M/mm3 (4.2-5.4); White Blood Count 11.9 K/mm3 (4.4-11.0)
[2022-11-06 09:31] LABS: Blood Gas Specimen Type VEN; O2 Delivery Device Cannula; VBG BASE EXCESS 9 mmol/L (-1.0-3.5); VBG Bicarbonate 34 mmol/L (22-26); VBG PO2 48 mmHg (25-40); VBG SO2 82 % (50-70); VBG TCO2 36 mmol/L (23-33); VBG pCO2 54.1 mmHg (41-51); VBG pH 7.41 (7.32-7.42)
[2022-11-06 09:41] LABS: ALB/GLOB Ratio 0.7 RATIO (0.9-2.4); AST(SGOT) 33 U/L (15-37); Alanine Aminotransfer ALT/SGPT 58 U/L (13-56); Albumin, Serum 3.1 g/dL (3.2-5.0); Alkaline Phosphatase 117 U/L (45-117); Anion Gap 4 (5-15); BUN 12 mg/dL (7-18); BUN/Creat Ratio 26.8 RATIO (10-20); Calcium,Total 8.7 mg/dL (8.5-10.1); Chloride 103 mmol/L (98-107); Creatinine, Serum 0.45 mg/dL (0.55-1.02); EST Glomerular Filtration Rate 159 mL/min (>60); Est Glom Filt Rate - Afr Amer 192 mL/min (>60); Estimated Creatinine Clearance 115.37 ml/min; Globulin 4.6 g/dL (2.2-4.2); Glucose 157 mg/dL (74-106); Lipase 42 U/L (13-75); Potassium 4.5 mmol/L (3.5-5.1); Protein, Total 7.7 g/dL (6.4-8.2); Sodium Level 143 mmol/L (136-145)
[2022-11-06 09:45] LABS: Lactic Acid 1.2 mmol/L (0.4-1.9)
[2022-11-06 10:03] VITALS: BP 120/89; PULSE 62; RESP 10; O2SAT 97
--- NOTE | 2022-11-06 10:20 | RAD_ITS ---
STUDY: X-RAY CHEST REASON FOR EXAM: Female, 47 years old. confusion TECHNIQUE: Single AP portable view of the chest. The images are under penetrated. COMPARISON: September 12, 2022 FINDINGS: Stable cervical spine hardware. The patient is not positioned correctly and there is underpenetration of the film due to large body habitus. Appearance of chronic pulmonary vascular congestion and interstitial prominence similar to what was seen on the September 12, 2022 study. No definite new area of consolidation is seen. There is mild cardiac enlargement. Normal mediastinum and bia. Normal visualized pulmonary arteries. There is atherosclerotic tortuosity of the aortic arch and descending thoracic aorta. There are diffuse degenerative changes of the visualized thoracic spine. Normal visualized ribs, clavicles, and shoulders. There is no demonstrated abnormality of the visualized soft tissue structures of the upper abdomen. RAD/Chest 1 View (Portable) IMPRESSION: 1. Appearance of chronic pulmonary vascular congestion and interstitial prominence similar to what was seen on the September 12, 2022 study. No definite new area of consolidation is seen. Electronically Signed: Juanjo Regalado MD at 10:58 EDT ,
[2022-11-06 10:56] LABS: Mucous, Urine 0 SEEN /hpf (<or=2+); Red Blood Cells-Urine 0 SEEN /hpf (0-5)
[2022-11-06 10:58] LABS: Color, Urine Yellow (Yellow); Glucose, Dipstick Normal (Normal); Ketone-Dipstick Negative (Negative); Leukocyte Esterase-Dipstick 500 /ul (Negative); Nitrite-Dipstick Positive (Negative); Occult Blood-Urine 150 /ul (Negative); Protein-Dipstick 100 mg/dl (Negative); Urine Bilirubin Dipstick Negative (Negative); Urine Clarity Cloudy (Clear); Urine Urobilinogen Normal (Normal); Urine pH 6.5 (5.0 - 8.0)
[2022-11-06 11:05] LABS: Bacteria 3+ /hpf (None Seen); Squamous Epithelial Cells - UA 0-5 SEEN /hpf (5-10); White Blood Cells >100 SEEN /hpf (0-5)
[2022-11-06 11:17] LABS: Amphetamine Urine VISTA NEGATIVE (<1000 ng/mL); Barbiturate Urine VISTA NEGATIVE (< 200 ng/mL); Benzodiazepine Urine VISTA NEGATIVE (< 200 ng/mL); Cocaine Urine VISTA NEGATIVE (< 300 ng/mL); Ecstacy Urine VISTA NEGATIVE (< 500 ng/mL); Methadone Urine VISTA NEGATIVE (< 300 ng/mL); PCP Urine VISTA NEGATIVE (< 25 ng/mL); THC Urine VISTA NEGATIVE (< 50 ng/mL); Vista UDS pH Range 7
[2022-11-06 12:13] VITALS: BP 102/85; PULSE 64; RESP 16; O2SAT 96
[2022-11-06 12:50] VITALS: BP 109/74; PULSE 65; RESP 16; O2SAT 96
[2022-11-06 13:13] VITALS: BP 117/85; PULSE 76; RESP 18; O2SAT 99
[2022-11-06] MEDS: Ceftriaxone 1 GM/50 ML BAG IV (13:15)
== END 2022-11-06 16:30 | disposition home or self-care (01) ==
PROVIDERS: Emergency Provider Emergency Medicine; PCP Family Medicine; Visit Provider Emergency Medicine
DX: N39.0 Urinary tract infection, site not specified (principal); D64.9 Anemia, unspecified; E03.9 Hypothyroidism, unspecified; G62.9 Polyneuropathy, unspecified; G93.41 Metabolic encephalopathy; F41.9 Anxiety disorder, unspecified; F32.9 Major depressive disorder, single episode, unspecified; E86.0 Dehydration; R41.0 Disorientation, unspecified; Z79.899 Other long term (current) drug therapy
CPT/HCPCS: 70450; 71045; 80053; 80307; 81001; 82077; 82803; 83605; 83690; 85025; 93005; 99285; J7030; A4216

== ENCOUNTER 2022-11-09 14:40 | Emergency (ER) | payer MEDICARE, MEDICAID, SELFPAY ==
[2022-11-09] VITALS (7 sets, daily range): BP systolic 107–198; BP diastolic 66–99; PULSE 78–89; RESP 15–20; TEMP 36.4–37; O2SAT 94–97; BMI 48.1
--- NOTE | 2022-11-09 15:13 | CT_ITS ---
STUDY: CT ABDOMEN AND PELVIS WITHOUT CONTRAST REASON FOR EXAM: Female, 47 years old. Abdominal pain. RADIATION DOSAGE (If Supplied By Facility): CTDIvol = ( 32.37 ) mGy, DLP = ( 1795.35 ) mGycm TECHNIQUE: Transaxial images were obtained from the dome of the diaphragm to the symphysis pubis without oral contrast, and without intravenous contrast. Sagittal and coronal images were reconstructed. Individualized dose optimization techniques were used for this CT. COMPARISON: June 20, 2019. FINDINGS: The study is limited due to poor patient positioning and misalignment of the sagittal and coronal images to the position of the patient. The visualized lung bases are unremarkable. The visualized portions of the heart are within normal limits. Hepatic steatosis without mass. Normal gallbladder and extrahepatic biliary system. Normal spleen. Normal pancreas. Normal bilateral adrenal glands. Normal right kidney. Normal left kidney. Normal visualized ureters. Normal visualized stomach. Normal small intestine. Normal colon. There is non-visualization of the appendix. Normal abdominal aorta. Normal inferior vena cava. Normal retroperitoneum. Urinary bladder is thick-walled and collapsed about a purpura Mccarthy catheter. There appear to be multiple large calculi dependently within the bladder lumen. Status post hysterectomy. There is no adnexal mass or pelvic lymphadenopathy. No free air or free fluid is seen within the peritoneal cavity Normal abdominal wall. There is marked erosive changes of the right hip with surrounding fluid. This could be secondary to infection or inflammatory process. There is evidence of internal fixation of a now healed left femoral fracture. CT/Abdomen/Pelvis without Cont IMPRESSION: 1. Limited study due to patient condition. 2. Multiple bladder calculi with suprapubic Mccarthy catheter within the urinary bladder lumen. 3. Hepatic steatosis. 4. Question infection versus marked arthrosis of the right hip. Electronically Signed: Oral Dodd DO at 17:02 EDT ,
--- NOTE | 2022-11-09 15:40 | EDS_ITS ---
HPI History of Present Illness Chief Complaint: Complaint Informant: patient Onset/Context/Timing Onset: Today Context: Sudden Onset Timing: Continuous Quality: Hematuria Location: Urine Worsened by: Nothing Relieved by: Nothing Narrative Narrative: Patient presents with hematuria that was noticed today. Patient has a suprapubic catheter in place chronically. long-term staff noted some blood in the urine today. Patient denies any dysuria however. Patient admits to some nausea and vomiting. Patient denies any fevers or chills. Patient denies any pain. long-term staff does report the patient did have some vaginal bleeding today as well. Patient is a poor informant. 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 Hx: UTI (urinary tract infection) Hypothyroidism Left femoral shaft fracture Malnutrition of mild degree Neuromuscular dysfunction of bladder Paraplegia Pre-operative cardiovascular exam, new EKG abnormalities c/w ischemia Quadriparesis Right ischial pressure sore, stage 4 Spinal cord injury (2010) Suprapubic catheter Home Medications levothyroxine 75 mcg tablet 75 mcg PO DAILY 05/28/15 [History Last Taken 04/22/21] duloxetine 60 mg capsule,delayed release 90 mg PO QHS 08/21/15 [History Last Taken 04/21/21] baclofen 10 mg tablet 40 mg PO Q6H SPASMS 08/16/16 [History Last Taken 04/22/21] acetaminophen 325 mg tablet 650 mg PO Q4H PRN PRN Pain 03/01/18 [History Last Taken 04/21/21] bisacodyl 10 mg rectal suppository 10 mg MD QHS PRN Constipation 03/01/18 [History Last Taken 04/21/21] omeprazole 20 mg capsule,delayed release 20 mg PO LUNCH 03/01/18 [History Last Taken 04/22/21] furosemide 40 mg tablet 40 mg PO BREAKFAST 05/26/18 [History Last Taken 04/22/21] sennosides 8.6 mg tablet 17.2 mg PO BID 08/16/18 [History Last Taken 04/22/21] cholecalciferol (vitamin D3) 50 mcg (2,000 unit) capsule 2,000 unit PO LUNCH SUPPLEMENT 08/08/19 [History Last Taken 04/22/21] polyethylene glycol 3350 17 gram oral powder packet 17 gm PO QHS 08/08/19 [History Last Taken 04/21/21] docusate sodium 100 mg capsule (Colace) 200 mg PO QHS 10/11/20 [History Last Taken 04/21/21] furosemide 20 mg tablet 20 mg PO LUNCH 04/21/21 [History Last Taken 04/22/21] buspirone 7.5 mg tablet 10 mg PO TID 04/22/21 [History Last Taken 04/22/21] gabapentin 800 mg tablet 1,600 mg PO TID NEUROPATHY 04/22/21 [History Last Taken 04/22/21] isosorbide mononitrate 30 mg tablet,extended release 24 hr 30 mg PO QHS 04/22/21 [History Last Taken 04/21/21] oxybutynin chloride 10 mg tablet,extended release 24 hr 30 mg PO DAILY BLADDER 04/22/21 [History Last Taken 04/22/21] potassium chloride 10 mEq capsule,extended release 10 meq PO DAILY 04/22/21 [History Last Taken 04/22/21] phenazopyridine 200 mg tablet (Pyridium) 200 mg PO TID PRN Bladder Spasms 05/27/21 [History Last Taken Unknown] loperamide 2 mg tablet 1 mg PO Q4H PRN Diarrhea 06/03/22 [History Last Taken Unknown] magnesium hydroxide 400 mg/5 mL oral suspension (Milk of Magnesia) 30 ml PO DAILY PRN Constipation 06/03/22 [History Last Taken Unknown] melatonin 5 mg tablet 5 mg PO QHS 06/03/22 [History Last Taken Unknown] mirtazapine 30 mg tablet 15 mg PO QHS 06/03/22 [History Last Taken Unknown] ondansetron HCl 4 mg tablet 4 mg PO Q4H PRN Nausea 06/03/22 [History Last Taken Unknown] paroxetine HCl 10 mg tablet 20 mg PO QHS 06/03/22 [History Last Taken Unknown] simethicone 80 mg tablet 80 mg PO DAILY PRN Gastric Reflux 06/03/22 [History Last Taken Unknown] buprenorphine 15 mcg/hour weekly transdermal patch (Butrans) 1 mcg transdermal Q WEEK 09/12/22 [History Last Taken Unknown] cetirizine 10 mg tablet 10 mg PO DAILY 09/12/22 [History Last Taken Unknown] cephalexin 250 mg capsule 250 mg PO DAILY 11/06/22 [History Last Taken Unknown] ciprofloxacin HCl 500 mg tablet 500 mg PO BID #20 TABLETS 11/06/22 [Rx Last Taken Unknown] levofloxacin 500 mg tablet 500 mg PO DAILY #7 tabs 11/09/22 [Rx Last Taken Unknown] Allergy/AdvReac Type Severity Reaction Status Date / Time apixaban [From Eliquis] Allergy Rash Verified 09/12/22 09:06 coconut oil Allergy cant breath Verified 09/12/22 09:06 mometasone furoate Allergy Rash Verified 09/12/22 09:06 [From Elocon] nitrofurantoin Allergy Unknown Verified 09/12/22 09:06 rivaroxaban [From Xarelto] Allergy Rash Verified 09/12/22 09:06 Sulfa (Sulfonamide Allergy Shortness Verified 09/12/22 09:06 Antibiotics) of breath Penicillins AdvReac NEEDS Verified 09/12/22 09:06 FOLLOW-UP Family History Mother Diabetes Grandfather CAD (coronary artery disease) Colon cancer Grandmother Breast cancer Aunt Ovarian cancer Surgical History History of tracheostomy (2010) Social History Smoking Status: Never smoker ROS ROS ED Constitutional Constitutional ED: Denies chills or fever(s) Eyes Eyes: Denies blurry vision or change in vision ENT ENT ED: Denies rhinorrhea or sore throat Cardiovascular Cardiovascular: Denies chest pain or palpitations Respiratory/Chest Respiratory/Chest: Denies cough or dyspnea Gastrointestinal Gastrointestinal: Reports nausea and vomiting Genitourinary Genitourinary ED: Reports hematuria; Denies dysuria Musculoskeletal Musculoskeletal: Denies back pain or neck pain Integumentary Denies abscess or rash Neurologic Neurologic: Denies headache(s) or weakness Allergic/Immunologic Allergic/Immunologic ED: Denies mouth swelling or urticaria EXAM Physical Exam Const Vital Signs: 11/09/22 14:41 11/09/22 14:45 11/09/22 16:35 Temperature 98.6 F 98.6 F 98 F Temperature Source Oral Oral Temporal Pulse Rate 83 78 82 Respiratory Rate 15 19 H 20 H Blood Pressure 120/79 107/66 147/98 H Blood Pressure Mean 92 79 114 Pulse Ox 95 94 Oxygen Delivery Method Room Air Room Air 11/09/22 16:55 11/09/22 17:13 Temperature 97.5 F L Temperature Source Temporal Pulse Rate 80 82 Respiratory Rate 20 H 20 H Blood Pressure 198/96 H 157/99 H Blood Pressure Mean 130 118 Pulse Ox 97 Oxygen Delivery Method Room Air Positive well nourished, well developed and obese General Appearance ED: well developed and NAD Nutritional Appearance: obese HEENT Reports moist mucous membranes Neck supple and no JVD Resp normal respiratory effort and clear to auscultation bilaterally Cardio regular rate and regular rhythm GI normal to inspection, nondistended, normoactive bowel sounds and non-tender GI Narrative: There is a suprapubic catheter in place. There is no erythema or edema around the catheter. It is draining yellow urine with some blood in it. Palpation: soft Extremity normal to inspection General Extremety ED: Negative for edema or tenderness General Extremity: Negative for edema Neuro oriented x3, CN's II-XII intact bilaterally and no sensory deficits noted Sensorium / Orientation: alert Motor Exam: strength 5/5 throughout Psych mental status grossly normal Skin no rashes or lesions noted MDM MDM MDM Narrative Medical decision making narrative: Differential diagnosis includes urinary tract infection, coagulopathy, ureteral calculus, bladder mass, and renal mass. CBC will be obtained to assess for leukocytosis and anemia. Basic metabolic profile will be obtained to assess for renal function and electrolyte abnormality. Urinalysis will be obtained to assess for urinary tract infection and hematuria. Lactate will be obtained to assess for sepsis. PT with INR and PTT will be obtained to assess for coagulopathy. Blood cultures and urine culture will be ordered to assess for urine infection and sepsis. CT scan of the abdomen and pelvis will be obtained to assess for ureteral calculus, bladder mass, and renal mass. Lab Data Attestation: I reviewed the patient's lab results. Lab results narrative: CBC shows a mild leukocytosis of 12.3 but was otherwise within normal limits. PT was INR and PTT were reviewed and were within normal limits. Basic metabolic profile was reviewed and was essentially within normal limits. Serum lactate was reviewed and was normal at 1.6. Urinalysis was reviewed. Urine ketones were 150. Leukocyte esterase was 500 with greater than 100 red blood cells and 50-100 white blood cells. There is rare bacteria. There are positive nitrites. Urine culture was obtained. Labs: Laboratory Results - last 24 hr 11/09/22 11/09/22 11/09/22 15:26 15:50 15:50 WBC 12.3 H RBC 4.68 Hgb 12.4 Hct 38.9 MCV 83.1 MCH 26.5 L MCHC 31.9 L RDW Std Deviation 46.9 H RDW Coeff of Juan Antonio 15.9 H Plt Count 391 MPV 9.1 Immature Gran % (Auto) 0.300 Neut % (Auto) 65.6 Lymph % (Auto) 23.2 Leslie % (Auto) 7.2 Eos % (Auto) 3.3 Baso % (Auto) 0.4 Absolute Neuts (auto) 8.1 H Absolute Lymphs (auto) 2.85 Nucleated RBC % 0 PT 14.0 INR 1.1 APTT 30.2 Sodium 139 Potassium 3.6 Chloride 106 Carbon Dioxide 20.0 L Anion Gap 13 BUN 18 Creatinine 0.30 L Estim Creat Clear Calc 173.05 Est GFR (MDRD) Af Amer 299 Est GFR (MDRD) Non-Af 247 BUN/Creatinine Ratio 59.0 H Glucose 100 Lactic Acid Calcium 8.6 Urine Color Urine Clarity Urine pH Ur Specific [place] Urine Protein Urine Glucose (UA) Urine Ketones Urine Occult Blood Urine Nitrite Urine Bilirubin Urine Urobilinogen Ur Leukocyte Esterase Urine RBC Urine WBC Ur Squamous Epith Cells Urine Bacteria Urine Mucus 11/09/22 11/09/22 15:50 16:32 WBC RBC Hgb Hct MCV MCH MCHC RDW Std Deviation RDW Coeff of Juan Antonio Plt Count MPV Immature Gran % (Auto) Neut % (Auto) Lymph % (Auto) Leslie % (Auto) Eos % (Auto) Baso % (Auto) Absolute Neuts (auto) Absolute Lymphs (auto) Nucleated RBC % PT INR APTT Sodium Potassium Chloride Carbon Dioxide Anion Gap BUN Creatinine Estim Creat Clear Calc Est GFR (MDRD) Af Amer Est GFR (MDRD) Non-Af BUN/Creatinine Ratio Glucose Lactic Acid 1.6 Calcium Urine Color Latonya Urine Clarity Cloudy Urine pH 6.0 Ur Specific [place] 1.025 Urine Protein 100 H Urine Glucose (UA) Normal Urine Ketones 150 A* Urine Occult Blood 250 H Urine Nitrite Positive H Urine Bilirubin 1 H Urine Urobilinogen 1 H Ur Leukocyte Esterase 500 H Urine RBC > 100 SEEN Urine WBC 50-100 SEEN Ur Squamous Epith Cells 0-5 SEEN Urine Bacteria RARE Urine Mucus 0 SEEN Radiography Diagnostic Testing: Clinical Impression(s) from Imaging Studies Abdomen/Pelvis CT 11/09/22 15:13 IMPRESSION: 1. Limited study due to patient condition. 2. Multiple bladder calculi with suprapubic Mccarthy catheter within the urinary bladder lumen. 3. Hepatic steatosis. 4. Question infection versus marked arthrosis of the right hip. Electronically Signed: Oral DoddDO at 17:02 EDT Reading Location ID and State: [address] [place] [address] Tel [phone], Service support , CT scan of the abdomen pelvis was obtained. There are multiple bladder calculi and a suprapubic catheter. There is arthritis of the right hip and questionable infection. This was interpreted by the radiologist and was also independently reviewed by myself. Treatment and Re-Evaluation :: Patient was advised of her findings. Prior records were reviewed. Urine culture from 09/13/22 was reviewed and showed Enterococcus and Morganella which was sensitive to meropenem and vancomycin. Patient was given a dose of this h ere in the emergency department. Patient has no sirs criteria or evidence of sepsis. I feel the patient to be discharged back to the extended care facility. Patient is agreeable with this. Urine and blood cultures were obtained and are pending. Patient will be given a prescription for Levaquin. Patient understood and was agreeable with the plan. All questions were answered. Discharge Plan Triage Chief Complaint: Complaint ED Provider: [place] Dx/Rx/DC Orders Clinical Impression: Urinary tract infection, Hemorrhagic cystitis Prescriptions: New levofloxacin [levofloxacin] 500 mg tablet 500 mg PO DAILY Qty: 7 0RF No Action levothyroxine 75 MCG tablet 75 mcg PO DAILY Label Comments: HYPOTHYROIDISM duloxetine 60 MG capsule,delayed release(DR/EC) 90 mg PO QHS Label Comments: ANXIETY baclofen 10 MG tablet 40 mg PO Q6H acetaminophen 325 MG tablet 650 mg PO Q4H PRN PRN (Reason: Pain) bisacodyl 10 MG suppository 10 mg MD QHS PRN (Reason: Constipation) omeprazole 20 MG capsule,delayed release(DR/EC) 20 mg PO LUNCH furosemide 40 MG tablet 40 mg PO BREAKFAST sennosides 8.6 MG tablet 17.2 mg PO BID polyethylene glycol 3350 17 GM packet 17 gm PO QHS cholecalciferol (vitamin D3) 2,000 UNIT capsule 2,000 unit PO LUNCH docusate sodium [Colace] 100 mg Capsule 200 mg PO QHS furosemide 20 mg Tablet 20 mg PO LUNCH isosorbide mononitrate 30 mg Tablet Extended Release 24 Hr 30 mg PO QHS potassium chloride 10 mEq Capsule, Extended Release 10 meq PO DAILY oxybutynin chloride 10 mg Tablet Extended Release 24hr 30 mg PO DAILY gabapentin 800 mg Tablet 1,600 mg PO TID buspirone 7.5 mg Tablet 10 mg PO TID phenazopyridine [Pyridium] 200 mg Tablet 200 mg PO TID PRN (Reason: Bladder Spasms) melatonin 5 mg Tablet 5 mg PO QHS mirtazapine 30 mg Tablet 15 mg PO QHS paroxetine HCl 10 mg Tablet 20 mg PO QHS simethicone 80 mg Tablet 80 mg PO DAILY PRN (Reason: Gastric Reflux) magnesium hydroxide [Milk of Magnesia] 400 mg/5 mL Suspension 30 ml PO DAILY PRN (Reason: Constipation) loperamide 2 mg Tablet 1 mg PO Q4H PRN (Reason: Diarrhea) Rx Instructions: administer after each loose stool until symptoms controlled; do not exceed 8 mg per 24 hrs ondansetron HCl 4 mg Tablet 4 mg PO Q4H PRN (Reason: Nausea) buprenorphine [Butrans] 15 mcg/hour patch weekly 1 mcg transdermal QWEEK cetirizine 10 mg Tablet 10 mg PO DAILY cephalexin 250 mg capsule 250 mg PO DAILY ciprofloxacin HCl [ciprofloxacin HCl] 500 mg tablet 500 mg PO BID Qty: 20 0RF Primary Care Provider: Lavon Vicente Referrals: Lavon Vicente MD [Primary Care Provider] - 5-7 Days Disposition Disposition: Home, Self Care
[2022-11-09 16:13] LABS: Absolute Lymphocyte Count 2.85 X10^3/uL (0.83-4.51); Absolute Neutrophil Count 8.1 X10^3/uL (2.0-7.7); Basophil# 0.05 X10^3/uL; Basophil% 0.4 % (0-1); Eosinophil# 0.41 X10^3/uL; Eosinophils% 3.3 % (0-5); Hematocrit 38.9 % (37-47); Hemoglobin 12.4 g/dL (12.0-15.0); Lymphocyte # 2.85 X10^3/ul (0.83-4.51); Lymphocyte % 23.2 % (19-41); Mean Corp Hgb Conc 31.9 g/dL (32-36); Mean Corpuscular Hgb 26.5 pg (27.0-32.0); Mean Corpuscular Volume 83.1 fL (81-99); Mean Platelet Vol. 9.1 fl (6.2-12.0); Monocyte# 0.89 X10^3/uL; Monocyte% 7.2 % (0-10); NRBC Flagged by Analyzer 0 % (0-5); Neutrophil # 8.05 X10^3/uL (2.7-7.7); Neutrophil % 65.6 % (47-70); Platelet Count 391 K/mm3 (150-450); RBC Distribution Width CV 15.9 % (11.6-14.6); RBC Distribution Width SD 46.9 fl (35.1-43.9); Red Blood Count 4.68 M/mm3 (4.2-5.4); White Blood Count 12.3 K/mm3 (4.4-11.0)
[2022-11-09 16:15] LABS: POSITIVE COUNT NO; POSITIVE DIFFERENTIAL NO; POSITIVE MORPHOLOGY NO
[2022-11-09 16:17] LABS: International Normalized Ratio 1.1; Partial Thromboplast Time 30.2 Seconds (24.1-36.2)
[2022-11-09 16:19] LABS: Anion Gap 13 (5-15); BUN 18 mg/dL (7-18); Calcium,Total 8.6 mg/dL (8.5-10.1); Chloride 106 mmol/L (98-107); EST Glomerular Filtration Rate 247 mL/min (>60); Est Glom Filt Rate - Afr Amer 299 mL/min (>60); Estimated Creatinine Clearance 173.05 ml/min; Glucose 100 mg/dL (74-106); Potassium 3.6 mmol/L (3.5-5.1); Sodium Level 139 mmol/L (136-145)
[2022-11-09 16:33] LABS: Lactic Acid 1.6 mmol/L (0.4-1.9)
[2022-11-09 16:39] LABS: Mucous, Urine 0 SEEN /hpf (<or=2+)
[2022-11-09 16:46] LABS: Color, Urine Amber (Yellow); Glucose, Dipstick Normal (Normal); Leukocyte Esterase-Dipstick 500 /ul (Negative); Nitrite-Dipstick Positive (Negative); Occult Blood-Urine 250 /ul (Negative); Protein-Dipstick 100 mg/dl (Negative); Specific Gravity, Urine 1.025 (1.002-1.030); Urine Clarity Cloudy (Clear); Urine Urobilinogen 1 mg/dl (Normal)
[2022-11-09 17:03] LABS: Ketone-Dipstick 150 mg/dl (Negative); Urine Bilirubin Dipstick 1 mg/dL (Negative)
[2022-11-09 17:04] LABS: Red Blood Cells-Urine > 100 SEEN /hpf (0-5); White Blood Cells 50-100 SEEN /hpf (0-5)
[2022-11-09 17:05] LABS: Bacteria RARE /hpf (None Seen); Squamous Epithelial Cells - UA 0-5 SEEN /hpf (5-10)
--- NOTE | 2022-11-09 18:23 | NURSING ---
CALLED AND SET UP TRANSPORT BACK TO [facility]-- ETA [id number]
== END 2022-11-09 22:16 | disposition home or self-care (01) ==
PROVIDERS: Emergency Provider Emergency Medicine; PCP Family Medicine; Visit Provider Emergency Medicine
DX: N39.0 Urinary tract infection, site not specified (principal); E03.9 Hypothyroidism, unspecified; Z79.899 Other long term (current) drug therapy; F32.A Depression, unspecified
CPT/HCPCS: 74176; 80048; 81001; 83605; 85025; 85610; 85730; 87040; 87077; 87086; 87088; 87186; 99285; J2185; J7040; J7050; A4216

== ENCOUNTER → 2022-11-10 | Outpatient (REF) | payer MEDICARE, MEDICAID, SELFPAY ==
[2022-11-10 09:01] LABS: Anion Gap 15 (5-15); BUN 15 mg/dL (7-18); BUN/Creat Ratio 39.5 RATIO (10-20); Calcium,Total 8.2 mg/dL (8.5-10.1); Chloride 106 mmol/L (98-107); Creatinine, Serum 0.38 mg/dL (0.55-1.02); EST Glomerular Filtration Rate 191 mL/min (>60); Est Glom Filt Rate - Afr Amer 232 mL/min (>60); Glucose 87 mg/dL (74-106); Potassium 3.7 mmol/L (3.5-5.1); Sodium Level 137 mmol/L (136-145)
== END ==
LOC: OLS.SW 05:00
PROVIDERS: PCP Family Medicine; Visit Provider Family Medicine
DX: R41.82 Altered mental status, unspecified (principal)
CPT/HCPCS: 36415; 80048

== ENCOUNTER → 2022-11-11 | Outpatient (REF) | payer MEDICARE, MEDICAID, SELFPAY ==
[2022-11-11 18:42] LABS: Hematocrit 37.5 % (37-47); Hemoglobin 11.9 g/dL (12.0-15.0); Mean Corp Hgb Conc 31.7 g/dL (32-36); Mean Corpuscular Hgb 25.9 pg (27.0-32.0); Mean Corpuscular Volume 81.5 fL (81-99); Mean Platelet Vol. 9.3 fl (6.2-12.0); Platelet Count 384 K/mm3 (150-450); RBC Distribution Width SD 47.1 fl (35.1-43.9); White Blood Count 11.2 K/mm3 (4.4-11.0)
[2022-11-11 18:57] LABS: Vitamin D,25 Hydroxy 35.2 ng/mL
[2022-11-11 19:03] LABS: ALB/GLOB Ratio 0.7 RATIO (0.9-2.4); AST(SGOT) 62 U/L (15-37); Alanine Aminotransfer ALT/SGPT 72 U/L (13-56); Albumin, Serum 3.1 g/dL (3.2-5.0); Alkaline Phosphatase 94 U/L (45-117); Anion Gap 13 (5-15); BUN 22 mg/dL (7-18); BUN/Creat Ratio 40.7 RATIO (10-20); Calcium,Total 9.2 mg/dL (8.5-10.1); Chloride 105 mmol/L (98-107); Creatinine, Serum 0.54 mg/dL (0.55-1.02); EST Glomerular Filtration Rate 127 mL/min (>60); Est Glom Filt Rate - Afr Amer 154 mL/min (>60); Globulin 4.6 g/dL (2.2-4.2); Glucose 102 mg/dL (74-106); Potassium 3.3 mmol/L (3.5-5.1); Protein, Total 7.7 g/dL (6.4-8.2); Sodium Level 139 mmol/L (136-145); Thyroid Stim Hormone (TSH) 1.58 uIU/mL (0.358-3.74)
[2022-11-12 10:23] LABS: Color, Urine Yellow (Yellow); Glucose, Dipstick Normal (Normal); Leukocyte Esterase-Dipstick 500 /ul (Negative); Nitrite-Dipstick Negative (Negative); Occult Blood-Urine 250 /ul (Negative); Protein-Dipstick 100 mg/dl (Negative); Urine Clarity Sl. Cloudy (Clear); Urine Urobilinogen Normal (Normal)
[2022-11-12 10:39] LABS: Amphetamine Urine VISTA NEGATIVE (<1000 ng/mL); Barbiturate Urine VISTA NEGATIVE (< 200 ng/mL); Benzodiazepine Urine VISTA NEGATIVE (< 200 ng/mL); Cocaine Urine VISTA NEGATIVE (< 300 ng/mL); Ecstacy Urine VISTA NEGATIVE (< 500 ng/mL); Methadone Urine VISTA NEGATIVE (< 300 ng/mL); PCP Urine VISTA NEGATIVE (< 25 ng/mL); THC Urine VISTA NEGATIVE (< 50 ng/mL); Vista UDS pH Range 6
[2022-11-12 11:34] LABS: Urine Bilirubin Dipstick 1 mg/dL (Negative)
[2022-11-12 11:36] LABS: Ketone-Dipstick 150 mg/dl (Negative)
== END ==
LOC: OLS.SW 18:07
PROVIDERS: PCP Family Medicine; Visit Provider Family Medicine
DX: R41.82 Altered mental status, unspecified (principal); E55.9 Vitamin D deficiency, unspecified; Z79.899 Other long term (current) drug therapy
CPT/HCPCS: 36415; 80053; 80307; 81002; 82140; 82306; 84443; 85027; 87086; 87088; 87186

== ENCOUNTER 2022-11-14 19:39 | Inpatient (IN) | payer MEDICARE, MEDICAID, SELFPAY ==
[2022-11-14] VITALS (7 sets, daily range): BP systolic 131–149; BP diastolic 74–91; PULSE 97–116; RESP 18–20; TEMP 36.5–37.3; O2SAT 92–100; BMI 37.1
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
[2022-11-14 21:14] LABS: Color, Urine Yellow (Yellow); Glucose, Dipstick Normal (Normal); Ketone-Dipstick 15 mg/dl (Negative); Leukocyte Esterase-Dipstick 500 /ul (Negative); Nitrite-Dipstick Negative (Negative); Occult Blood-Urine 250 /ul (Negative); Protein-Dipstick 500 mg/dl (Negative); Urine Clarity Cloudy (Clear); Urine Urobilinogen 1 mg/dl (Normal); Urine pH 6.5 (5.0 - 8.0)
--- NOTE | 2022-11-14 21:14 | ED.RN ---
superpubic cath changed by dr terry. urine speciman obtained from new catheter. nazia louie.
[2022-11-14 21:21] LABS: Urine Bilirubin Dipstick 1 mg/dL (Negative)
[2022-11-14 21:25] LABS: Absolute Lymphocyte Count 3.91 X10^3/uL (0.83-4.51); Absolute Neutrophil Count 7.3 X10^3/uL (2.0-7.7); Basophil# 0.05 X10^3/uL; Basophil% 0.4 % (0-1); Eosinophils% 1.6 % (0-5); Hematocrit 41.7 % (37-47); Hemoglobin 13.2 g/dL (12.0-15.0); Lymphocyte # 3.91 X10^3/ul (0.83-4.51); Mean Corp Hgb Conc 31.7 g/dL (32-36); Mean Corpuscular Hgb 26.2 pg (27.0-32.0); Mean Corpuscular Volume 82.7 fL (81-99); Mean Platelet Vol. 9.4 fl (6.2-12.0); Monocyte# 1.15 X10^3/uL; Monocyte% 9.1 % (0-10); NRBC Flagged by Analyzer 0 % (0-5); Neutrophil # 7.27 X10^3/uL (2.7-7.7); Neutrophil % 57.6 % (47-70); Platelet Count 376 K/mm3 (150-450); RBC Distribution Width CV 16.8 % (11.6-14.6); RBC Distribution Width SD 50.3 fl (35.1-43.9); Red Blood Count 5.04 M/mm3 (4.2-5.4); White Blood Count 12.6 K/mm3 (4.4-11.0)
[2022-11-14 21:39] LABS: International Normalized Ratio 1.1; Prothrombin Time (Protime)PT. 13.8 SECONDS (11.7-14.9)
[2022-11-14 21:40] LABS: Partial Thromboplast Time 20.8 Seconds (24.1-36.2)
[2022-11-14 21:44] LABS: ALB/GLOB Ratio 0.6 RATIO (0.9-2.4); AST(SGOT) 55 U/L (15-37); Alanine Aminotransfer ALT/SGPT 72 U/L (13-56); Albumin, Serum 3.3 g/dL (3.2-5.0); Alkaline Phosphatase 99 U/L (45-117); Anion Gap 8 (5-15); BUN 22 mg/dL (7-18); BUN/Creat Ratio 29.5 RATIO (10-20); Calcium,Total 9.4 mg/dL (8.5-10.1); Chloride 101 mmol/L (98-107); Creatinine, Serum 0.75 mg/dL (0.55-1.02); EST Glomerular Filtration Rate 88 mL/min (>60); Est Glom Filt Rate - Afr Amer 106 mL/min (>60); Estimated Creatinine Clearance 69.22 ml/min; Globulin 5.2 g/dL (2.2-4.2); Glucose 116 mg/dL (74-106); Potassium 3.3 mmol/L (3.5-5.1); Protein, Total 8.5 g/dL (6.4-8.2); Sodium Level 140 mmol/L (136-145)
[2022-11-14 21:55] LABS: Lactic Acid 2.3 mmol/L (0.4-1.9)
[2022-11-14] MEDS: Ondansetron 4 MG/2 ML Vial IV (21:56)
[2022-11-14 23:52] LABS: Bacteria 2+ /hpf (None Seen); Hyaline Cast 0-5 SEEN /lpf (0-5); Mucous, Urine 1+ /hpf (<or=2+); Red Blood Cells-Urine 10-25 SEEN /hpf (0-5); Squamous Epithelial Cells - UA 10-25 SEEN /hpf (5-10); Transitional Epithelial - Ur 0-5 SEEN /hpf (0-5); White Blood Cells 50-100 SEEN /hpf (0-5)
[2022-11-15] VITALS (7 sets, daily range): BP systolic 98–148; BP diastolic 60–104; PULSE 89–105; RESP 18; TEMP 37.1–38; O2SAT 93–100; BMI 46.1
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
[2022-11-15 01:21] LABS: Reflex Lactate? Y
[2022-11-15] MEDS: Baclofen 10 MG Tablet 40 MG PO ×4 (01:51→16:58)
[2022-11-15] MEDS: Potassium Chloride Oral Tablet 20 MEQ 40 MEQ PO (01:51)
[2022-11-15] MEDS: Nystatin Ointment 1 APPLIC TOPICAL ×2 (01:51→21:22)
[2022-11-15 02:11] LABS: Lactic Acid 1.1 mmol/L (0.4-1.9)
[2022-11-15] MEDS: FLUCONAZOLE 150 MG TABLET PO (04:30)
[2022-11-15 05:49] LABS: Absolute Lymphocyte Count 3.63 X10^3/uL (0.83-4.51); Basophil# 0.05 X10^3/uL; Basophil% 0.5 % (0-1); Eosinophil# 0.25 X10^3/uL; Eosinophils% 2.3 % (0-5); Hematocrit 39.7 % (37-47); Hemoglobin 12.5 g/dL (12.0-15.0); Lymphocyte # 3.63 X10^3/ul (0.83-4.51); Lymphocyte % 33.3 % (19-41); Mean Corp Hgb Conc 31.5 g/dL (32-36); Mean Corpuscular Hgb 26.1 pg (27.0-32.0); Mean Corpuscular Volume 82.9 fL (81-99); Mean Platelet Vol. 9.4 fl (6.2-12.0); Monocyte# 0.93 X10^3/uL; Monocyte% 8.5 % (0-10); NRBC Flagged by Analyzer 0 % (0-5); Neutrophil % 55.1 % (47-70); Platelet Count 324 K/mm3 (150-450); RBC Distribution Width CV 16.5 % (11.6-14.6); Red Blood Count 4.79 M/mm3 (4.2-5.4); White Blood Count 10.9 K/mm3 (4.4-11.0)
[2022-11-15] MEDS: Gabapentin 800 MG Tablet 1600 MG PO ×3 (06:11→21:19)
[2022-11-15] MEDS: Menthol/Lanolin/Calamine/Znox 113 GM Tube 1 APPLIC TOPICAL ×2 (06:11→21:20)
[2022-11-15] MEDS: busPIRone 5 MG Tablet 10 MG PO ×3 (06:11→21:20)
[2022-11-15] MEDS: Levothyroxine 75 MCG Tablet PO (06:11)
[2022-11-15 06:18] LABS: ALB/GLOB Ratio 0.7 RATIO (0.9-2.4); AST(SGOT) 48 U/L (15-37); Alanine Aminotransfer ALT/SGPT 60 U/L (13-56); Alkaline Phosphatase 87 U/L (45-117); Anion Gap 8 (5-15); BUN 20 mg/dL (7-18); BUN/Creat Ratio 48.5 RATIO (10-20); Calcium,Total 8.8 mg/dL (8.5-10.1); Chloride 102 mmol/L (98-107); Creatinine, Serum 0.41 mg/dL (0.55-1.02); EST Glomerular Filtration Rate 174 mL/min (>60); Est Glom Filt Rate - Afr Amer 211 mL/min (>60); Estimated Creatinine Clearance 126.62 ml/min; Globulin 4.4 g/dL (2.2-4.2); Glucose 110 mg/dL (74-106); Potassium 3.7 mmol/L (3.5-5.1); Protein, Total 7.4 g/dL (6.4-8.2); Sodium Level 138 mmol/L (136-145)
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
[2022-11-15] MEDS: Furosemide 40 MG Tablet PO (08:48)
[2022-11-15] MEDS: Tolterodine Tartrate 2 MG CAP.SA PO (08:59)
[2022-11-15] MEDS: Loratadine 10 MG Tablet PO (08:59)
[2022-11-15] MEDS: Linezolid 600 MG Tablet PO ×2 (08:59→21:20)
[2022-11-15] MEDS: Potassium Chloride Oral Tablet 10 MEQ PO (09:00)
[2022-11-15] MEDS: NYSTATIN 500,000 UNIT/5 ML UDC 500000 UNIT PO ×2 (09:00→14:16)
[2022-11-15] MEDS: Senna Tablet 1 TABLET PO ×2 (09:01→21:22)
--- NOTE | 2022-11-15 12:03 | NURSING ---
This RN called [facility] and informed of order for PICC line. Waiting call back from them for ETA.
[2022-11-15] MEDS: Pantoprazole Sodium 20 MG Tablet PO (12:27)
[2022-11-15] MEDS: Furosemide 20 MG Tablet PO (12:27)
[2022-11-15] MEDS: Cholecalciferol (VIT D3) 25 MCG TABLET (1,000 UNITS) 50 MCG PO (12:29)
[2022-11-15] MEDS: Ondansetron ODT 4 MG Tablet PO ×2 (16:57→21:19)
[2022-11-15] MEDS: Mirtazapine 15 MG Tablet PO (21:19)
[2022-11-15] MEDS: MELATONIN 10 MG TABLET 5 MG PO (21:20)
[2022-11-15] MEDS: Isosorbide Mononitrate 30 MG Tablet PO (21:21)
[2022-11-15] MEDS: Acetaminophen 325 MG Tablet 650 MG PO (21:25)
[2022-11-15] MEDS: Phenazopyridine 95 MG Tablet 190 MG PO (21:25)
[2022-11-16 04:00] VITALS: BP 122/69; PULSE 97; RESP 20; TEMP 36.9; O2SAT 97
[2022-11-16] MEDS: Baclofen 10 MG Tablet 40 MG PO ×2 (04:35→11:20)
[2022-11-16] MEDS: Levothyroxine 75 MCG Tablet PO (04:35)
[2022-11-16] MEDS: Gabapentin 800 MG Tablet 1600 MG PO ×2 (04:35→14:36)
[2022-11-16] MEDS: Bisacodyl 10 MG Suppository RC (04:35)
[2022-11-16] MEDS: busPIRone 5 MG Tablet 10 MG PO ×2 (04:35→14:36)
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
[2022-11-16 07:28] LABS: Absolute Lymphocyte Count 1.85 X10^3/uL (0.83-4.51); Absolute Neutrophil Count 6.1 X10^3/uL (2.0-7.7); Basophil# 0.03 X10^3/uL; Basophil% 0.3 % (0-1); Eosinophil# 0.17 X10^3/uL; Eosinophils% 1.9 % (0-5); Hematocrit 39.1 % (37-47); Hemoglobin 12.2 g/dL (12.0-15.0); Lymphocyte # 1.85 X10^3/ul (0.83-4.51); Lymphocyte % 21.1 % (19-41); Mean Corp Hgb Conc 31.2 g/dL (32-36); Mean Corpuscular Hgb 25.8 pg (27.0-32.0); Mean Corpuscular Volume 82.8 fL (81-99); Mean Platelet Vol. 9.5 fl (6.2-12.0); Monocyte# 0.56 X10^3/uL; Monocyte% 6.4 % (0-10); NRBC Flagged by Analyzer 0 % (0-5); Neutrophil # 6.13 X10^3/uL (2.7-7.7); Platelet Count 260 K/mm3 (150-450); RBC Distribution Width CV 15.9 % (11.6-14.6); RBC Distribution Width SD 48.6 fl (35.1-43.9); Red Blood Count 4.72 M/mm3 (4.2-5.4); White Blood Count 8.8 K/mm3 (4.4-11.0)
[2022-11-16] MEDS: Furosemide 40 MG Tablet PO ×2 (08:51→11:19)
[2022-11-16] MEDS: Linezolid 600 MG Tablet PO (08:53)
[2022-11-16] MEDS: Senna Tablet 1 TABLET PO (08:53)
[2022-11-16] MEDS: Tolterodine Tartrate 2 MG CAP.SA PO (08:53)
[2022-11-16] MEDS: Potassium Chloride Oral Tablet 10 MEQ PO (08:56)
[2022-11-16] MEDS: Nystatin Powder 15gm Bottle 1 APPLIC TOPICAL (08:57)
[2022-11-16] MEDS: Nystatin Ointment 1 APPLIC TOPICAL (08:57)
[2022-11-16] MEDS: Loratadine 10 MG Tablet PO (08:57)
[2022-11-16] MEDS: Menthol/Lanolin/Calamine/Znox 113 GM Tube 1 APPLIC TOPICAL (08:58)
[2022-11-16 09:00] LABS: ALB/GLOB Ratio 0.6 RATIO (0.9-2.4); AST(SGOT) 25 U/L (15-37); Alanine Aminotransfer ALT/SGPT 42 U/L (13-56); Albumin, Serum 2.7 g/dL (3.2-5.0); Alkaline Phosphatase 90 U/L (45-117); Anion Gap 9 (5-15); BUN 16 mg/dL (7-18); BUN/Creat Ratio 42.3 RATIO (10-20); Calcium,Total 8.8 mg/dL (8.5-10.1); Chloride 100 mmol/L (98-107); Creatinine, Serum 0.38 mg/dL (0.55-1.02); EST Glomerular Filtration Rate 193 mL/min (>60); Est Glom Filt Rate - Afr Amer 233 mL/min (>60); Estimated Creatinine Clearance 136.62 ml/min; Globulin 4.6 g/dL (2.2-4.2); Glucose 121 mg/dL (74-106); Potassium 3.1 mmol/L (3.5-5.1); Protein, Total 7.3 g/dL (6.4-8.2); Sodium Level 135 mmol/L (136-145)
[2022-11-16 10:00] VITALS: BP 99/72; PULSE 88; RESP 18; TEMP 36.2; O2SAT 97
--- NOTE | 2022-11-16 10:52 | CASEMGMT ---
Social Work Pt is admitted from [facility]. SW met with pt and introduced self and role of SW. 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 beverley Pérez internet marketing assistant updated and to send clinical updates to [facility]. Plan: [facility], when medically ready MARYANN Mccord
--- NOTE | 2022-11-16 11:07 | CASEMGMT ---
Discharge Planning Patient resides at [facility]. Referral sent via [employer]. Inquired if she was bedhold and/or need a pre-cert. Elisa Pinto
[2022-11-16] MEDS: Potassium Chloride Oral Soln 20 MEQ/15 ML UDC 60 MEQ PO (11:18)
[2022-11-16] MEDS: Furosemide 20 MG Tablet PO (11:20)
[2022-11-16] MEDS: Cholecalciferol (VIT D3) 25 MCG TABLET (1,000 UNITS) 50 MCG PO (11:32)
[2022-11-16] MEDS: Pantoprazole Sodium 20 MG Tablet PO (11:32)
--- NOTE | 2022-11-16 12:31 | PCM.CONS.GEN ---
Assessment & Plan Assessment/Plan (1) UTI (urinary tract infection): QUALIFIERS: Urinary tract infection type: acute cystitis Hematuria presence: without hematuria Qualified Code(s): N30.00 - Acute cystitis without hematuria (2) VRE infection (vancomycin resistant Enterococcus): PLAN: Cont linezolid, plan on 10 days total of abx. Ok for d/c back to ECF with one more week of linezolid. Will stop zosyn. Sx improving. If she continues to have recurrent uti, would consider methenamine for usp prophylaxis. Will follow, thank you, wrote rx HPI Consult Data Date of Consult: 11/16/22 HPI Narrative Reason for Consultation: uti HPI Narrative: HENRIK GARCIA, is a 47 F with quadriplegia and suprapubic catheter in place, c/o 2-3 weeks of persistent uti with associated dysuria, burning, and not feeling well. No improvement with outpt po cipro and keflex at ECF. Ucx grew VRE, admitted here on linezolid/zosyn. Feeling better, pain much improved. No abd pain or flankpain. No n/v/d. Full ROS performed and neg except as noted above. 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 Hx: UTI (urinary tract infection) Hypothyroidism Left femoral shaft fracture Malnutrition of mild degree Neuromuscular dysfunction of bladder Paraplegia Pre-operative cardiovascular exam, new EKG abnormalities c/w ischemia Quadriparesis Right ischial pressure sore, stage 4 Spinal cord injury (2010) Suprapubic catheter Home Medications levothyroxine 75 mcg tablet 75 mcg PO DAILY hypothyroidism 05/28/15 [History Last Taken 04/22/21] duloxetine 60 mg capsule,delayed release 90 mg PO QHS depression 08/21/15 [History Last Taken 04/21/21] baclofen 10 mg tablet 40 mg PO Q6H SPASMS 08/16/16 [History Last Taken 04/22/21] acetaminophen 325 mg tablet 650 mg PO Q4H PRN PRN Pain or fever 03/01/18 [History Last Taken 04/21/21] bisacodyl 10 mg rectal suppository 10 mg MT QHS PRN Constipation 03/01/18 [History Last Taken 04/21/21] omeprazole 20 mg capsule,delayed release 20 mg PO DAILY GERD 03/01/18 [History Last Taken 04/22/21] furosemide 40 mg tablet 40 mg PO BREAKFAST edema 05/26/18 [History Last Taken 04/22/21] sennosides 8.6 mg tablet 17.2 mg PO BID constipation 08/16/18 [History Last Taken 04/22/21] cholecalciferol (vitamin D3) 50 mcg (2,000 unit) capsule 2,000 unit PO LUNCH SUPPLEMENT 08/08/19 [History Last Taken 04/22/21] polyethylene glycol 3350 17 gram oral powder packet 17 gm PO QHS constipation 08/08/19 [History Last Taken 04/21/21] docusate sodium 100 mg capsule (Colace) 200 mg PO QHS constipation 10/11/20 [History Last Taken 04/21/21] furosemide 20 mg tablet 20 mg PO LUNCH edema 04/21/21 [History Last Taken 04/22/21] buspirone 7.5 mg tablet 10 mg PO TID anxiety 04/22/21 [History Last Taken 04/22/21] gabapentin 800 mg tablet 1,600 mg PO TID NEUROPATHY 04/22/21 [History Last Taken 04/22/21] isosorbide mononitrate 30 mg tablet,extended release 24 hr 30 mg PO QHS angina 04/22/21 [History Last Taken 04/21/21] oxybutynin chloride 10 mg tablet,extended release 24 hr 30 mg PO DAILY Bladder spasms 04/22/21 [History Last Taken 04/22/21] potassium chloride 10 mEq capsule,extended release 10 meq PO DAILY hypokalemia 04/22/21 [History Last Taken 04/22/21] phenazopyridine 200 mg tablet (Pyridium) 200 mg PO TID PRN Bladder Spasms 05/27/21 [History Last Taken Unknown] loperamide 2 mg tablet 1 mg PO Q4H PRN Diarrhea 06/03/22 [History Last Taken Unknown] magnesium hydroxide 400 mg/5 mL oral suspension (Milk of Magnesia) 30 ml PO DAILY PRN Constipation 06/03/22 [History Last Taken Unknown] melatonin 5 mg tablet 5 mg PO QHS insomnia 06/03/22 [History Last Taken Unknown] mirtazapine 30 mg tablet 15 mg PO QHS insomnia 06/03/22 [History Last Taken Unknown] ondansetron HCl 4 mg tablet 4 mg PO Q4H PRN Nausea 06/03/22 [History Last Taken Unknown] paroxetine HCl 10 mg tablet 20 mg PO DINNER anxiety 06/03/22 [History Last Taken Unknown] simethicone 80 mg tablet 80 mg PO DAILY PRN Gastric Reflux 06/03/22 [History Last Taken Unknown] buprenorphine 15 mcg/hour weekly transdermal patch (Butrans) 1 mcg transdermal FR pain 09/12/22 [History Last Taken 11/14/22] cetirizine 10 mg tablet 10 mg PO QPM allergies 09/12/22 [History Last Taken Unknown] cephalexin 250 mg capsule 250 mg PO DAILY Recurrent UTI 11/06/22 [History Last Taken Unknown] ciprofloxacin HCl 500 mg tablet 500 mg PO BID #20 TABLETS 11/06/22 [Rx Last Taken Unknown] levofloxacin 500 mg tablet 500 mg PO DAILY #7 tabs 11/09/22 [Rx Last Taken Unknown] albuterol sulfate 0.63 mg/3 mL solution for nebulization 0.63 mg inhalation Q4H PRN sob/wheezing 11/14/22 [History Last Taken Unknown] Allergy/AdvReac Type Severity Reaction Status Date / Time apixaban [From Eliquis] Allergy Rash Verified 09/12/22 09:06 coconut oil Allergy cant breath Verified 09/12/22 09:06 mometasone furoate Allergy Rash Verified 09/12/22 09:06 [From Elocon] nitrofurantoin Allergy Unknown Verified 09/12/22 09:06 rivaroxaban [From Xarelto] Allergy Rash Verified 09/12/22 09:06 Sulfa (Sulfonamide Allergy Shortness Verified 09/12/22 09:06 Antibiotics) of breath Penicillins AdvReac NEEDS Verified 09/12/22 09:06 FOLLOW-UP Family History Mother Diabetes Grandfather CAD (coronary artery disease) Colon cancer Grandmother Breast cancer Aunt Ovarian cancer Surgical History History of tracheostomy (2010) Social History Smoking Status: Never smoker Physical Exam Const alert, oriented x3 and no apparent distress General Appearance: cooperative HEENT normocephalic and head/scalp atraumatic Eyes PERRL and EOMs intact bilaterally Resp normal air movement and clear to auscultation bilaterally Cardio regular rate and regular rhythm GI soft to palpation, non-tender and non-distended Extremity General Extremity: edema Skin no rashes or lesions noted Neuro CN's II-XII intact bilaterally Lab / Micro Data Result Diagrams: 11/16/22 06:25 11/16/22 06:25 Labs: Laboratory Results - last 24 hr 11/16/22 06:25: WBC 8.8, RBC 4.72, Hgb 12.2, Hct 39.1, MCV 82.8, MCH 25.8 L, MCHC 31.2 L, RDW Std Deviation 48.6 H, RDW Coeff of Juan Antonio 15.9 H, Plt Count 260, MPV 9.5, Immature Gran % (Auto) 0.300, Neut % (Auto) 70.0, Lymph % (Auto) 21.1, [place] % (Auto) 6.4, Eos % (Auto) 1.9, Baso % (Auto) 0.3, Absolute Neuts (auto) 6.1, Absolute Lymphs (auto) 1.85, Nucleated RBC % 0 11/16/22 06:25: Sodium 135 L, Potassium 3.1 L, Chloride 100, Carbon Dioxide 26.0, Anion Gap 9, BUN 16, Creatinine 0.38 L, Estim Creat Clear Calc 136.62, Est GFR (MDRD) Af Amer 233, Est GFR (MDRD) Non-Af 193, BUN/Creatinine Ratio 42.3 H, Glucose 121 H, Calcium 8.8, Total Bilirubin 0.50, AST 25, ALT 42, Alkaline Phosphatase 90, Total Protein 7.3, Albumin 2.7 L, Globulin 4.6 H, Albumin/Globulin Ratio 0.6 L Micro: Microbiology 11/14/22 20:50 Urine, Catheterized Urine Culture - Final Escherichia coli Vancomycin Resist. E. faecium
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
[2022-11-16 14:40] VITALS: BP 113/69; PULSE 100; RESP 18; TEMP 36.9; O2SAT 97
--- NOTE | 2022-11-16 14:40 | CASEMGMT ---
Social Work Per physician, pt is ready for discharge today. Orders sent to [facility] via [facility]. [facility] arranged [facility] for 4:30 corn picker via cot. Pt updated on discharge status and agreeable to plan. Pt denies SW calling family to notify. Pt, nurse and [facility] updated on discharge time. Plan: [facility], intermediate level of care MARYANN Mccord
--- NOTE | 2022-11-16 15:17 | PHA.DC.MR ---
Pharmacy Service has performed discharge medication reconciliation for this patient. The patient's discharge medication list was reviewed for discrepancies and discrepancies were resolved. Home Medications levothyroxine 75 mcg tablet 75 mcg PO DAILY hypothyroidism 05/28/15 duloxetine 60 mg capsule,delayed release 90 mg PO QHS depression 08/21/15 baclofen 10 mg tablet 40 mg PO Q6H SPASMS 08/16/16 acetaminophen 325 mg tablet 650 mg PO Q4H PRN PRN Pain or fever 03/01/18 bisacodyl 10 mg rectal suppository 10 mg [place] QHS PRN Constipation 03/01/18 omeprazole 20 mg capsule,delayed release 20 mg PO DAILY GERD 03/01/18 furosemide 40 mg tablet 40 mg PO BREAKFAST edema 05/26/18 sennosides 8.6 mg tablet 17.2 mg PO BID constipation 08/16/18 cholecalciferol (vitamin D3) 50 mcg (2,000 unit) capsule 2,000 unit PO LUNCH SUPPLEMENT 08/08/19 polyethylene glycol 3350 17 gram oral powder packet 17 gm PO QHS constipation 08/08/19 docusate sodium 100 mg capsule (Colace) 200 mg PO QHS constipation 10/11/20 furosemide 20 mg tablet 20 mg PO LUNCH edema 04/21/21 buspirone 7.5 mg tablet 10 mg PO TID anxiety 04/22/21 gabapentin 800 mg tablet 1,600 mg PO TID NEUROPATHY 04/22/21 isosorbide mononitrate 30 mg tablet,extended release 24 hr 30 mg PO QHS angina 04/22/21 oxybutynin chloride 10 mg tablet,extended release 24 hr 30 mg PO DAILY Bladder spasms 04/22/21 potassium chloride 10 mEq capsule,extended release 10 meq PO DAILY hypokalemia 04/22/21 phenazopyridine 200 mg tablet (Pyridium) 200 mg PO TID PRN Bladder Spasms 05/27/21 loperamide 2 mg tablet 1 mg PO Q4H PRN Diarrhea 06/03/22 magnesium hydroxide 400 mg/5 mL oral suspension (Milk of Magnesia) 30 ml PO DAILY PRN Constipation 06/03/22 melatonin 5 mg tablet 5 mg PO QHS insomnia 06/03/22 mirtazapine 30 mg tablet 15 mg PO QHS insomnia 06/03/22 ondansetron HCl 4 mg tablet 4 mg PO Q4H PRN Nausea 06/03/22 simethicone 80 mg tablet 80 mg PO DAILY PRN Gastric Reflux 06/03/22 buprenorphine 15 mcg/hour weekly transdermal patch (Butrans) 1 mcg transdermal FR pain 09/12/22 cetirizine 10 mg tablet 10 mg PO QPM allergies 09/12/22 linezolid 600 mg tablet 600 mg PO BID 7 days #14 tabs 11/16/22 nystatin 100,000 unit/gram topical powder (Nyamyc) 1 applic topical BID #15 grams 11/16/22
== END 2022-11-16 18:34 | disposition skilled nursing facility (03) | DRG 698 ==
LOC: ED 23:51 → MS3 11-15 00:21
PROVIDERS: Physician Assistant; Emergency Provider Emergency Medicine; PCP Family Medicine; Visit Provider Internal Medicine
DX: T83.510A Infection and inflammatory reaction due to cystostomy catheter, initial encounter (principal); G82.50 Quadriplegia, unspecified; E44.0 Moderate protein-calorie malnutrition; J96.11 Chronic respiratory failure with hypoxia; Z68.42 Body mass index [BMI] 45.0-49.9, adult; N30.00 Acute cystitis without hematuria; Z16.21 Resistance to vancomycin; E66.01 Morbid (severe) obesity due to excess calories; E03.9 Hypothyroidism, unspecified; F41.9 Anxiety disorder, unspecified; F32.A Depression, unspecified; E66.9 Obesity, unspecified; Z79.01 Long term (current) use of anticoagulants; Z79.899 Other long term (current) drug therapy; G89.29 Other chronic pain; B37.9 Candidiasis, unspecified; A49.1 Streptococcal infection, unspecified site
CPT/HCPCS: 36415; 80053; 81002; 83605; 83735; 85025; 85610; 85730; 87040; 87077; 87086; 87088; 87186; 94668; 99252; 99285; A4216; G0463; J2405

== ENCOUNTER → 2023-01-21 | Outpatient (REF) | payer MEDICARE, MEDICAID, SELFPAY ==
[2023-01-21 09:08] LABS: Absolute Lymphocyte Count 3.22 X10^3/uL (0.83-4.51); Absolute Neutrophil Count 6.7 X10^3/uL (2.0-7.7); Basophil# 0.06 X10^3/uL; Basophil% 0.5 % (0-1); Eosinophil# 0.37 X10^3/uL; Eosinophils% 3.3 % (0-5); Hematocrit 37.7 % (37-47); Hemoglobin 10.9 g/dL (12.0-15.0); Lymphocyte # 3.22 X10^3/ul (0.83-4.51); Lymphocyte % 28.8 % (19-41); Mean Corp Hgb Conc 28.9 g/dL (32-36); Mean Corpuscular Hgb 24.8 pg (27.0-32.0); Mean Corpuscular Volume 85.7 fL (81-99); Mean Platelet Vol. 9.9 fl (6.2-12.0); Monocyte% 7.1 % (0-10); NRBC Flagged by Analyzer 0 % (0-5); Neutrophil % 59.9 % (47-70); Platelet Count 352 K/mm3 (150-450); RBC Distribution Width CV 17.1 % (11.6-14.6); RBC Distribution Width SD 53.5 fl (35.1-43.9); White Blood Count 11.2 K/mm3 (4.4-11.0)
[2023-01-21 09:12] LABS: Color, Urine Brown (Yellow); Glucose, Dipstick Normal (Normal); Ketone-Dipstick 5 mg/dl (Negative); Leukocyte Esterase-Dipstick 100 /ul (Negative); Nitrite-Dipstick Positive (Negative); Occult Blood-Urine 150 /ul (Negative); Protein-Dipstick 500 mg/dl (Negative); Specific Gravity, Urine 1.015 (1.002-1.030); Urine Clarity Cloudy (Clear); Urine Urobilinogen 8 mg/dl (Normal)
[2023-01-21 09:14] LABS: Urine Bilirubin Dipstick 6 mg/dL (Negative)
== END ==
LOC: OLS.SW 05:00
PROVIDERS: PCP Family Medicine; Visit Provider Family Medicine
DX: N39.0 Urinary tract infection, site not specified (principal)
CPT/HCPCS: 36415; 81002; 85025; 87077; 87086; 87088; 87186

== ENCOUNTER 2023-01-26 20:05 | Emergency (ER) | payer MEDICARE, MEDICAID, SELFPAY ==
[2023-01-26 20:06] VITALS: BP 169/109; PULSE 82; RESP 20; TEMP 36.9; BMI 46.9
[2023-01-26 21:11] VITALS: BP 98/60; PULSE 87; RESP 20; TEMP 36.6; O2SAT 93
[2023-01-26 21:49] LABS: Absolute Lymphocyte Count 3.16 X10^3/uL (0.83-4.51); Absolute Neutrophil Count 4.8 X10^3/uL (2.0-7.7); Basophil# 0.06 X10^3/uL; Basophil% 0.7 % (0-1); Eosinophil# 0.25 X10^3/uL; Eosinophils% 2.8 % (0-5); Hematocrit 36.2 % (37-47); Lymphocyte # 3.16 X10^3/ul (0.83-4.51); Lymphocyte % 35.3 % (19-41); Mean Corp Hgb Conc 30.4 g/dL (32-36); Mean Corpuscular Hgb 25.7 pg (27.0-32.0); Mean Corpuscular Volume 84.6 fL (81-99); Mean Platelet Vol. 8.9 fl (6.2-12.0); Monocyte# 0.63 X10^3/uL; NRBC Flagged by Analyzer 0 % (0-5); Neutrophil % 53.6 % (47-70); Platelet Count 370 K/mm3 (150-450); RBC Distribution Width CV 16.4 % (11.6-14.6); RBC Distribution Width SD 50.8 fl (35.1-43.9); Red Blood Count 4.28 M/mm3 (4.2-5.4)
[2023-01-26 22:05] VITALS: BP 98/60; PULSE 77; RESP 18; TEMP 36.6; O2SAT 96
[2023-01-26 22:10] LABS: ALB/GLOB Ratio 0.6 RATIO (0.9-2.4); AST(SGOT) 21 U/L (15-37); Alanine Aminotransfer ALT/SGPT 29 U/L (13-56); Albumin, Serum 2.8 g/dL (3.2-5.0); Alkaline Phosphatase 95 U/L (45-117); Anion Gap 4 (5-15); BUN 11 mg/dL (7-18); BUN/Creat Ratio 23.6 RATIO (10-20); Calcium,Total 8.8 mg/dL (8.5-10.1); Chloride 103 mmol/L (98-107); Creatinine, Serum 0.47 mg/dL (0.55-1.02); EST Glomerular Filtration Rate 151 mL/min (>60); Est Glom Filt Rate - Afr Amer 183 mL/min (>60); Estimated Creatinine Clearance 109.26 ml/min; Globulin 4.9 g/dL (2.2-4.2); Glucose 112 mg/dL (74-106); Potassium 3.9 mmol/L (3.5-5.1); Protein, Total 7.7 g/dL (6.4-8.2); Sodium Level 139 mmol/L (136-145)
[2023-01-26 22:34] VITALS: PULSE 144
--- NOTE | 2023-01-26 22:49 | EKG12_ITS ---
Test Reason : RYTHM CHANGE Blood Pressure : / mmHG Vent. Rate : 090 BPM Atrial Rate : 090 BPM P-R Int : 156 ms QRS Dur : 088 ms QT Int : 374 ms P-R-T Axes : 062 -04 070 degrees QTc Int : 457 ms Normal sinus rhythm with sinus arrhythmia Normal ECG When compared with ECG of 06-NOV-2022 09:05, No significant change was found Confirmed by BRONWYN HAMILTON, BRANDON ([id number]), associate entertainment editor STEFANI SARMIENTO ([id number]) on 03/31/2023 1:58:00 PM Referred By: BETTIE Confirmed By:BRANDON BARNHART MD
[2023-01-26 23:42] VITALS: BP 108/77; PULSE 88; RESP 18; O2SAT 93
--- NOTE | 2023-01-26 23:42 | EDS_ITS ---
HPI HPI - Female History of Present Illness Chief Complaint: Vag Bleeding Informant: patient Narrative Narrative: Patient is a 48-year-old female with history of C7 quadriplegia, suprapubic indwelling catheter and prior hysterectomy presenting with vaginal bleeding. Apparently patient developed vaginal bleeding tonight at her nursing facility ([facility]). She wanted to be evaluated in the emergency room so she was transferred here. Shows the past few days she has had some burning around her bladder and her left lower pelvis and was prescribed antibiotics for this today however she has not started them yet. She is not any blood thinners. She states she has had some increased fatigue and feeling hot and cold denies any fever. No other complaints or concerns at this time. She states her last bowel movement was 5 days ago and quite large. She feels confident the bleeding is not coming from her rectum. 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 Hx: UTI (urinary tract infection) Hypothyroidism Left femoral shaft fracture Malnutrition of mild degree Neuromuscular dysfunction of bladder Paraplegia Pre-operative cardiovascular exam, new EKG abnormalities c/w ischemia Quadriparesis Right ischial pressure sore, stage 4 Spinal cord injury (2010) Suprapubic catheter Home Medications levothyroxine 75 mcg tablet 75 mcg PO DAILY hypothyroidism 05/28/15 [History Last Taken 04/22/21] duloxetine 60 mg capsule,delayed release 90 mg PO QHS depression 08/21/15 [History Last Taken 04/21/21] baclofen 10 mg tablet 40 mg PO Q6H SPASMS 08/16/16 [History Last Taken 04/22/21] acetaminophen 325 mg tablet 650 mg PO Q4H PRN PRN Pain or fever 03/01/18 [History Last Taken 04/21/21] bisacodyl 10 mg rectal suppository 10 mg DC QHS PRN Constipation 03/01/18 [History Last Taken 04/21/21] omeprazole 20 mg capsule,delayed release 20 mg PO DAILY GERD 03/01/18 [History L ast Taken 04/22/21] furosemide 40 mg tablet 40 mg PO BREAKFAST edema 05/26/18 [History Last Taken 04/22/21] sennosides 8.6 mg tablet 17.2 mg PO BID constipation 08/16/18 [History Last Taken 04/22/21] cholecalciferol (vitamin D3) 50 mcg (2,000 unit) capsule 2,000 unit PO LUNCH SUPPLEMENT 08/08/19 [History Last Taken 04/22/21] polyethylene glycol 3350 17 gram oral powder packet 17 gm PO QHS constipation 08/08/19 [History Last Taken 04/21/21] docusate sodium 100 mg capsule (Colace) 200 mg PO QHS constipation 10/11/20 [History Last Taken 04/21/21] furosemide 20 mg tablet 20 mg PO LUNCH edema 04/21/21 [History Last Taken 04/22/21] buspirone 7.5 mg tablet 10 mg PO TID anxiety 04/22/21 [History Last Taken 04/22/21] gabapentin 800 mg tablet 1,600 mg PO TID NEUROPATHY 04/22/21 [History Last Taken 04/22/21] isosorbide mononitrate 30 mg tablet,extended release 24 hr 30 mg PO QHS angina 04/22/21 [History Last Taken 04/21/21] oxybutynin chloride 10 mg tablet,extended release 24 hr 30 mg PO DAILY Bladder spasms 04/22/21 [History Last Taken 04/22/21] potassium chloride 10 mEq capsule,extended release 10 meq PO DAILY hypokalemia 04/22/21 [History Last Taken 04/22/21] phenazopyridine 200 mg tablet (Pyridium) 200 mg PO TID PRN Bladder Spasms 05/27/21 [History Last Taken Unknown] loperamide 2 mg tablet 1 mg PO Q4H PRN Diarrhea 06/03/22 [History Last Taken Unknown] magnesium hydroxide 400 mg/5 mL oral suspension (Milk of Magnesia) 30 ml PO DAILY PRN Constipation 06/03/22 [History Last Taken Unknown] melatonin 5 mg tablet 5 mg PO QHS insomnia 06/03/22 [History Last Taken Unknown] mirtazapine 30 mg tablet 15 mg PO QHS insomnia 06/03/22 [History Last Taken Unknown] ondansetron HCl 4 mg tablet 4 mg PO Q4H PRN Nausea 06/03/22 [History Last Taken Unknown] simethicone 80 mg tablet 80 mg PO DAILY PRN Gastric Reflux 06/03/22 [History Last Taken Unknown] buprenorphine 15 mcg/hour weekly transdermal patch (Butrans) 1 mcg transdermal FR pain 09/12/22 [History Last Taken 11/14/22] cetirizine 10 mg tablet 10 mg PO QPM allergies 09/12/22 [History Last Taken Unknown] linezolid 600 mg tablet 600 mg PO BID 7 days #14 tabs 11/16/22 [Rx Last Taken Unknown] nystatin 100,000 unit/gram topical powder (Nyamyc) 1 applic topical BID #15 grams 11/16/22 [Rx Last Taken Unknown] Allergy/AdvReac Type Severity Reaction Status Date / Time apixaban [From Eliquis] Allergy Rash Verified 09/12/22 09:06 coconut oil Allergy cant breath Verified 09/12/22 09:06 mometasone furoate Allergy Rash Verified 09/12/22 09:06 [From Elocon] nitrofurantoin Allergy Unknown Verified 09/12/22 09:06 rivaroxaban [From Xarelto] Allergy Rash Verified 09/12/22 09:06 Sulfa (Sulfonamide Allergy Shortness Verified 09/12/22 09:06 Antibiotics) of breath Penicillins AdvReac NEEDS Verified 09/12/22 09:06 FOLLOW-UP Family History Mother Diabetes Grandfather CAD (coronary artery disease) Colon cancer Grandmother Breast cancer Aunt Ovarian cancer Surgical History History of tracheostomy (2010) Social History Smoking Status: Never smoker ROS ROS ED Constitutional Constitutional ED: Reports chills; Denies fever(s) Cardiovascular Cardiovascular: Denies chest pain Respiratory/Chest Respiratory/Chest: Denies cough or dyspnea Gastrointestinal Gastrointestinal: Reports abdominal pain; Denies diarrhea, nausea or vomiting Genitourinary Genitourinary ED: Reports other Details: Vaginal bleeding, suprapubic pain Musculoskeletal Musculoskeletal: Denies arthralgias or myalgias Integumentary Denies rash Neurologic Neurologic: Reports other Details: C6/7 quadriplegic ; Denies headache(s) Psychiatric Psychiatric: Denies anxiety Hematologic/Lymphatic Hematologic/Lymphatic: Denies easy bleeding or easy bruising EXAM Physical Exam Const Vital Signs: 01/26/23 20:06 01/26/23 21:11 01/26/23 22:05 Temperature 98.5 F 97.8 F 98 F Temperature Source Oral Temporal Temporal Pulse Rate 82 87 77 Respiratory Rate 20 H 20 H 18 Blood Pressure 169/109 H 98/60 Blood Pressure Mean 129 72 Pulse Ox 93 96 Oxygen Delivery Method Nasal Cannula Nasal Cannula Oxygen Flow Rate (L/min) 4 4 01/26/23 22:05 01/26/23 22:34 Temperature 98 F Temperature Source Temporal Pulse Rate 77 144 H Respiratory Rate 18 Blood Pressure 98/60 Blood Pressure Mean 72 Pulse Ox 96 Oxygen Delivery Method Nasal Cannula Oxygen Flow Rate (L/min) 4 Positive well nourished, well developed and obese Constitutional Narrative: Chronically ill-appearing General Appearance ED: well developed Nutritional Appearance: obese HEENT Reports moist mucous membranes Eyes PERRL Neck supple Chest Wall inspection of chest normal and palpation of chest normal Resp normal respiratory effort and clear to auscultation bilaterally Cardio regular rate and regular rhythm GI normal to inspection, nondistended, normoactive bowel sounds, soft to palpation and non-tender GI Narrative: Suprapubic Mccarthy catheter in place, mild maceration of the surrounding skin but no cellulitic changes, no drainage appreciated Narrative: Patient does appear to have bleeding coming from her vagina. There seems to be a slow trickle. No laceration or skin tear of the area appreciated. No blood on rectal exam. Extremity Extremity Narrative: Atrophy and abnormal tone of the extremities Neuro oriented x3 Sensorium / Orientation: alert Psych mental status grossly normal Skin no rashes or lesions noted MDM MDM MDM Narrative Medical decision making narrative: I waited for vaginal bleeding. Her hemoglobin is actually improved today from her baseline at 11.0. Her vital signs are normal. She does not have signs of acute blood loss. She does have vaginal bleeding that will need to be evaluated further by BUSINESS CONTINUITY COORDINATOR. Initially spoke with [facility], she is previously seen Dr. Lauren however she is not currently established with them. I then spoke with [facility] BUSINESS CONTINUITY COORDINATOR, Dr. Storm. She does not feel that imaging or emergent gynecologic evaluation is indicated patient can follow-up in the office in the next week or so. Given return precautions including symptomatic anemia, significant hemorrhage or heavy bleeding. Discharged in stable condition. While in the ER patient does develop episode of tachycardia. She goes up to 144 beats per minutes but is completely asymptomatic and resting. She then normalizes again on her own without any intervention. EKG was obtained but did not capture this tachycardia. It showed normal sinus rhythm at a rate of 90 bpm with sinus arrhythmia. This is interpreted by myself. No ST segment changes. Patient tells me that she gets these episodes from time to time. I do not think this requires further inpatient/ER evaluation. Lab Data Attestation: I reviewed the patient's lab results. Labs: Laboratory Results - last 24 hr 01/26/23 21:35 WBC 9.0 RBC 4.28 Hgb 11.0 L Hct 36.2 L MCV 84.6 MCH 25.7 L MCHC 30.4 L RDW Std Deviation 50.8 H RDW Coeff of Juan Antonio 16.4 H Plt Count 370 MPV 8.9 Immature Gran % (Auto) 0.600 Neut % (Auto) 53.6 Lymph % (Auto) 35.3 Castro % (Auto) 7.0 Eos % (Auto) 2.8 Baso % (Auto) 0.7 Absolute Neuts (auto) 4.8 Absolute Lymphs (auto) 3.16 Nucleated RBC % 0 Sodium 139 Potassium 3.9 Chloride 103 Carbon Dioxide 32.0 Anion Gap 4 L BUN 11 Creatinine 0.47 L Estim Creat Clear Calc 109.26 Est GFR (MDRD) Af Amer 183 Est GFR (MDRD) Non-Af 151 BUN/Creatinine Ratio 23.6 H Glucose 112 H Calcium 8.8 Total Bilirubin 0.20 AST 21 ALT 29 Alkaline Phosphatase 95 Total Protein 7.7 Albumin 2.8 L Globulin 4.9 H Albumin/Globulin Ratio 0.6 L Blood Type A POSITIVE Antibody Screen NEGATIVE Differential Diagnosis Differential Diagnosis: Acute blood loss anemia, cervical bleeding, vaginal tear, rectal bleeding Discharge Plan Triage Chief Complaint: Vag Bleeding ED Provider: Christine Lee Dx/Rx/DC Orders Clinical Impression: Abnormal vaginal bleeding Prescriptions: No Action levothyroxine 75 MCG tablet 75 mcg PO DAILY Patient Comments: HYPOTHYROIDISM duloxetine 60 MG capsule,delayed release(DR/EC) 90 mg PO QHS Hold Instructions: Resume on 11/23/22. Patient Comments: ANXIETY baclofen 10 MG tablet 40 mg PO Q6H acetaminophen 325 MG tablet 650 mg PO Q4H PRN PRN (Reason: Pain or fever) bisacodyl 10 MG suppository 10 mg DC QHS PRN (Reason: Constipation) omeprazole 20 MG capsule,delayed release(DR/EC) 20 mg PO DAILY furosemide 40 MG tablet 40 mg PO BREAKFAST sennosides 8.6 MG tablet 17.2 mg PO BID polyethylene glycol 3350 17 GM packet 17 gm PO QHS cholecalciferol (vitamin D3) 2,000 UNIT capsule 2,000 unit PO LUNCH docusate sodium [Colace] 100 mg Capsule 200 mg PO QHS furosemide 20 mg Tablet 20 mg PO LUNCH isosorbide mononitrate 30 mg Tablet Extended Release 24 Hr 30 mg PO QHS potassium chloride 10 mEq Capsule, Extended Release 10 meq PO DAILY oxybutynin chloride 10 mg Tablet Extended Release 24hr 30 mg PO DAILY gabapentin 800 mg Tablet 1,600 mg PO TID buspirone 7.5 mg Tablet 10 mg PO TID phenazopyridine [Pyridium] 200 mg Tablet 200 mg PO TID PRN (Reason: Bladder Spasms) melatonin 5 mg Tablet 5 mg PO QHS mirtazapine 30 mg Tablet 15 mg PO QHS simethicone 80 mg Tablet 80 mg PO DAILY PRN (Reason: Gastric Reflux) magnesium hydroxide [Milk of Magnesia] 400 mg/5 mL Suspension 30 ml PO DAILY PRN (Reason: Constipation) loperamide 2 mg Tablet 1 mg PO Q4H PRN (Reason: Diarrhea) Rx Instructions: administer after each loose stool until symptoms controlled; do not exceed 8 mg per 24 hrs ondansetron HCl 4 mg Tablet 4 mg PO Q4H PRN (Reason: Nausea) buprenorphine [Butrans] 15 mcg/hour patch weekly 1 mcg transdermal FR cetirizine 10 mg Tablet 10 mg PO QPM linezolid 600 mg Tablet 600 mg PO BID 7 Days Qty: 14 0RF nystatin [Nyamyc] 100,000 unit/gram Powder 1 applic topical BID Qty: 15 0RF Protocol: *Topical Application Instructions APPLICATION INSTRUCTIONS: to folds and groin Rx Instructions: Apply to [facility] Primary Care Provider: Lavon Vicente Referrals: Trista Elizabeth MD [Med Staff - Active Staff] - 1 Week Lavon Vicente MD [Primary Care Provider] - Activity Restrictions/Additional Instructions: Hemoglobin is stable today. While you are having bleeding from your vagina the exact cause is not clear. I spoke with the quality control assessor who recommends follow- up in the next week or so. If you start passing large lots multiple times, soak through a pad an hour for 2 to 3 hours in a row, become lightheaded or have a change in vital signs please return to the emergency room. Otherwise you should be able to follow-up with a quality control assessor. Disposition Disposition: Prison Facility Discharge Location: [facility]
--- NOTE | 2023-01-27 02:30 | ED.RN ---
REPORT CALLED TO [facility].
== END 2023-01-27 02:47 | disposition skilled nursing facility (03) ==
PROVIDERS: Emergency Provider Emergency Medicine; PCP Family Medicine; Visit Provider Emergency Medicine
DX: N93.9 Abnormal uterine and vaginal bleeding, unspecified (principal); G82.20 Paraplegia, unspecified; I49.8 Other specified cardiac arrhythmias; E03.9 Hypothyroidism, unspecified
CPT/HCPCS: 80053; 85025; 86850; 86900; 86901; 93005; 99285; A4216

== ENCOUNTER → 2023-02-01 | Outpatient (REF) | payer MEDICARE, MEDICAID, SELFPAY ==
[2023-02-01 08:23] LABS: Hematocrit 37.3 % (37-47); Hemoglobin 10.9 g/dL (12.0-15.0); Mean Corp Hgb Conc 29.2 g/dL (32-36); Mean Corpuscular Hgb 25.2 pg (27.0-32.0); Mean Corpuscular Volume 86.1 fL (81-99); Mean Platelet Vol. 9.4 fl (6.2-12.0); Platelet Count 359 K/mm3 (150-450); RBC Distribution Width CV 16.2 % (11.6-14.6); Red Blood Count 4.33 M/mm3 (4.2-5.4); White Blood Count 9.9 K/mm3 (4.4-11.0)
== END ==
LOC: OLS.SW 06:25
PROVIDERS: PCP Family Medicine; Referring Provider Family Medicine; Visit Provider Family Medicine
DX: Z79.899 Other long term (current) drug therapy (principal)
CPT/HCPCS: 36415; 85027

== ENCOUNTER → 2023-02-02 | Outpatient (REF) | payer MEDICARE, MEDICAID, SELFPAY ==
[2023-02-02 09:22] LABS: Hematocrit 33.6 % (37-47); Hemoglobin 10.1 g/dL (12.0-15.0); Mean Corp Hgb Conc 30.1 g/dL (32-36); Mean Corpuscular Hgb 25.2 pg (27.0-32.0); Mean Corpuscular Volume 83.8 fL (81-99); Mean Platelet Vol. 9.4 fl (6.2-12.0); Platelet Count 346 K/mm3 (150-450); RBC Distribution Width SD 49.2 fl (35.1-43.9); Red Blood Count 4.01 M/mm3 (4.2-5.4); White Blood Count 9.1 K/mm3 (4.4-11.0)
== END ==
LOC: OLS.SW 05:00
PROVIDERS: PCP Family Medicine; Visit Provider Family Medicine
DX: D64.9 Anemia, unspecified (principal)
CPT/HCPCS: 36415; 85027

== ENCOUNTER → 2023-02-22 | Outpatient (REF) | payer MEDICARE, MEDICAID, SELFPAY | LOC: OLS.SW 05:00 | PROVIDERS: PCP Family Medicine; Visit Provider Family Medicine | DX: T14.8XXA Other injury of unspecified body region, initial encounter (principal) | CPT/HCPCS: 87070; 87077; 87186; 87205 ==

== ENCOUNTER → 2023-02-26 | Outpatient (REF) | payer MEDICARE, MEDICAID, SELFPAY | LOC: OLS.SW 05:50 | PROVIDERS: PCP Family Medicine; Visit Provider Family Medicine | DX: R07.0 Pain in throat (principal) | CPT/HCPCS: 87070 ==

== ENCOUNTER → 2023-03-09 | Outpatient (REF) | payer MEDICARE, MEDICAID, SELFPAY ==
[2023-03-09 08:28] LABS: Mucous, Urine 0 SEEN /hpf (<or=2+); Red Blood Cells-Urine 0 SEEN /hpf (0-5)
[2023-03-09 08:47] LABS: Color, Urine Yellow (Yellow); Glucose, Dipstick Normal (Normal); Ketone-Dipstick Negative (Negative); Leukocyte Esterase-Dipstick 500 /ul (Negative); Nitrite-Dipstick Positive (Negative); Occult Blood-Urine 10 /ul (Negative); Protein-Dipstick 30 mg/dl (Negative); Urine Bilirubin Dipstick Negative (Negative); Urine Clarity Cloudy (Clear); Urine Urobilinogen Normal (Normal)
[2023-03-09 09:22] LABS: Amorphous Sediment 1+; Bacteria 1+ /hpf (None Seen); Squamous Epithelial Cells - UA 5-10 SEEN /hpf (5-10); Triple Phosphate Crystals Ur 1+ /hpf (<or=1+); White Blood Cells 10-25 SEEN /hpf (0-5)
== END ==
LOC: OLS.SW 06:45
PROVIDERS: PCP Family Medicine; Referring Provider Family Medicine; Visit Provider Family Medicine
DX: R82.90 Unspecified abnormal findings in urine (principal)
CPT/HCPCS: 81001; 87077; 87086; 87088; 87186

== ENCOUNTER 2023-03-17 11:47 | Day surgery (SDC) | payer MEDICARE, MEDICAID, SELFPAY ==
[2023-03-17] VITALS (9 sets, daily range): BP systolic 72–100; BP diastolic 43–65; PULSE 77–97; RESP 16–18; TEMP 36.4–37.1; O2SAT 91–99; BMI 44.9
[2023-03-17] MEDS: Lactated Ringers 1,000 ML 15 ML IV (12:33)
--- NOTE | 2023-03-17 13:56 | RAD_ITS ---
PROCEDURE: Caudal block. DATE OF EXAMINATION: March 17, 2023. INDICATION: Female, 48 years old. Chronic low back pain. FLUOROSCOPY TIME (if supplied): (6.5 seconds) minutes/seconds. 4.84 mGy RAD/Fluor Guidance for Spine Inj IMPRESSION: Intraoperative imaging provided for caudal block. Electronically Signed: Roosevelt Galvez MD at 15:05 EDT ,
[2023-03-17] MEDS: Triamcinolone Acetonide 40 MG/ML Vial (14:10)
[2023-03-17] MEDS: Lidocaine 0.5% (50 ml) 50 ML Vial (14:10)
== END 2023-03-17 15:42 | disposition home or self-care (01) ==
LOC: SDC 11:51 → AC 11:52
PROVIDERS: PCP Family Medicine; Referring Provider Anesthesiology Pain Medicine; Visit Provider Anesthesiology Pain Medicine
PROC: 3E0S3BZ Introduction of Anesthetic Agent into Epidural Space, Percutaneous Approach (ICD-10-PCS; CPT 62282; principal; 2023-03-17 13:25)
DX: M54.50 Low back pain, unspecified (principal); G89.29 Other chronic pain; G20.A1 Parkinson's disease without dyskinesia, without mention of fluctuations; M54.18 Radiculopathy, sacral and sacrococcygeal region; M51.36 Other intervertebral disc degeneration, lumbar region; M51.37 Other intervertebral disc degeneration, lumbosacral region
CPT/HCPCS: 62323; 64483; 77003; J7120; J2405

== ENCOUNTER 2023-07-02 22:21 | Inpatient (IN) | payer MEDICARE, MEDICAID, SELFPAY ==
[2023-07-02 22:22] VITALS: BP 186/104; PULSE 87; RESP 16; TEMP 36.7; O2SAT 97; BMI 42.7
--- NOTE | 2023-07-02 22:25 | ED.RN ---
Witnessed approximate one minute tonic clonic seizure. MD notified, orders received.
--- NOTE | 2023-07-02 22:30 | RAD_ITS ---
STUDY: X-RAY CHEST REASON FOR EXAM: Female, 48 years old. altered mental status TECHNIQUE: Single AP portable view of the chest. COMPARISON: 11/06/2022 FINDINGS: Poor inspiration with some bibasilar atelectasis. There is no demonstrated pleural abnormality. There is moderate cardiac enlargement. Normal mediastinum and bia. Normal visualized pulmonary arteries. Normal visualized aortic arch and descending thoracic aorta. There is a dextroscoliosis of the thoracic spine. Normal visualized ribs, clavicles, and shoulders. There is no demonstrated abnormality of the visualized soft tissue structures of the upper abdomen. RAD/Chest 1 View (Portable) IMPRESSION: Poor inspiration with some bibasilar atelectasis. Cardiomegaly. Electronically Signed: Yuri Cerna MD at 23:56 EST ,
--- NOTE | 2023-07-02 22:36 | ED.RN ---
2228 pt started rolling her eyes in the back of her head and her arms flailing in the air. pulse ox [address] Aguila made aware,orders entered.
--- NOTE | 2023-07-02 22:42 | EX.ED.DYSGE1 ---
HPI History of Present Illness Chief Complaint: Alt LOC Narrative Narrative: 48-year-old female presenting to the ER with altered mental status. She is unable to give a history. Nurses report was limited. Last known well was dinnertime around 6 PM. 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 Hx: UTI (urinary tract infection) Hypothyroidism Left femoral shaft fracture Malnutrition of mild degree Neuromuscular dysfunction of bladder Paraplegia Pre-operative cardiovascular exam, new EKG abnormalities c/w ischemia Quadriparesis Right ischial pressure sore, stage 4 Spinal cord injury (2010) Suprapubic catheter Home Medications levothyroxine 75 mcg tablet 75 mcg PO DAILY hypothyroidism 05/28/15 [History Last Taken 04/22/21] duloxetine 60 mg capsule,delayed release 90 mg PO QHS depression 08/21/15 [History Last Taken 04/21/21] baclofen 10 mg tablet 40 mg PO Q6H SPASMS 08/16/16 [History Last Taken 04/22/21] acetaminophen 325 mg tablet 650 mg PO Q4H PRN PRN Pain or fever 03/01/18 [History Last Taken 04/21/21] bisacodyl 10 mg rectal suppository 10 mg NC QHS PRN Constipation 03/01/18 [History Last Taken 04/21/21] omeprazole 20 mg capsule,delayed release 20 mg PO LUNCH GERD 03/01/18 [History Last Taken 04/22/21] furosemide 40 mg tablet 40 mg PO BREAKFAST edema 05/26/18 [History Last Taken 04/22/21] sennosides 8.6 mg tablet 17.2 mg PO BID constipation 08/16/18 [History Last Taken 04/22/21] cholecalciferol (vitamin D3) 50 mcg (2,000 unit) capsule 2,000 unit PO LUNCH SUPPLEMENT 08/08/19 [History Last Taken 04/22/21] polyethylene glycol 3350 17 gram oral powder packet 17 gm PO QHS constipation 08/08/19 [History Last Taken 04/21/21] docusate sodium 100 mg capsule (Colace) 200 mg PO BID constipation 10/11/20 [History Last Taken 04/21/21] furosemide 20 mg tablet 20 mg PO LUNCH edema 04/21/21 [History Last Taken 04/22/21] gabapentin 800 mg tablet 1,600 mg PO TID NEUROPATHY 04/22/21 [History Last Taken 04/22/21] isosorbide mononitrate 30 mg tablet,extended release 24 hr 30 mg PO QHS angina 04/22/21 [History Last Taken 04/21/21] oxybutynin chloride 10 mg tablet,extended release 24 hr 30 mg PO DAILY Bladder spasms 04/22/21 [History Last Taken 04/22/21] potassium chloride 10 mEq capsule,extended release 10 meq PO LUNCH hypokalemia 04/22/21 [History Last Taken 04/22/21] phenazopyridine 200 mg tablet (Pyridium) 200 mg PO TID PRN Bladder Spasms 05/27/21 [History Last Taken Unknown] loperamide 2 mg tablet 1 mg PO Q4H PRN Diarrhea 06/03/22 [History Last Taken Unknown] magnesium hydroxide 400 mg/5 mL oral suspension (Milk of Magnesia) 30 ml PO DAILY PRN Constipation 06/03/22 [History Last Taken Unknown] melatonin 5 mg tablet 5 mg PO QHS insomnia 06/03/22 [History Last Taken Unknown] mirtazapine 30 mg tablet 15 mg PO QHS insomnia 06/03/22 [History Last Taken Unknown] ondansetron HCl 4 mg tablet 4 mg PO Q4H PRN Nausea 06/03/22 [History Last Taken Unknown] simethicone 80 mg tablet 80 mg PO DAILY PRN Gastric Reflux 06/03/22 [History Last Taken Unknown] buprenorphine 15 mcg/hour weekly transdermal patch (Butrans) 20 mcg transdermal Q7D pain 09/12/22 [History Last Taken 07/01/23] cetirizine 10 mg tablet 10 mg PO QPM allergies 09/12/22 [History Last Taken Unknown] linezolid 600 mg tablet 600 mg PO BID 7 days #14 tabs 11/16/22 [Rx Last Taken Unknown] nystatin 100,000 unit/gram topical powder (Nyamyc) 1 applic topical BID #15 grams 11/16/22 [Rx Last Taken Unknown] benzonatate 100 mg capsule 100 mg PO Q6H PRN 07/02/23 [History Last Taken Unknown] buspirone 10 mg tablet 10 mg PO BID 07/02/23 [History Last Taken Unknown] cetirizine 10 mg capsule (All Day Allergy (cetirizine)) 10 mg PO DAILY PRN allergies 07/02/23 [History Last Taken Unknown] diphenhydramine HCl 25 mg tablet (Allergy (diphenhydramine)) 50 mg PO Q8H PRN itching 07/02/23 [History Last Taken Unknown] fosfomycin tromethamine 3 gram oral packet 3 g PO X1 07/02/23 [History Last Taken Unknown] ibuprofen 200 mg tablet (Advil) 400 mg PO Q6H 07/02/23 [History Last Taken Unknown] linaclotide 145 mcg capsule (Linzess) 145 mcg PO LUNCH constipation 07/02/23 [History Last Taken Unknown] mirabegron 25 mg tablet,extended release 24 hr (Myrbetriq) 25 mg PO LUNCH 07/02/23 [History Last Taken Unknown] paroxetine HCl 10 mg tablet 20 mg PO QHS 07/02/23 [History Last Taken Unknown] trazodone 50 mg tablet 50 mg PO QHS 07/02/23 [History Last Taken Unknown] Allergy/AdvReac Type Severity Reaction Status Date / Time apixaban [From Eliquis] Allergy Rash Verified 07/02/23 22:41 coconut oil Allergy cant breath Verified 07/02/23 22:41 mometasone furoate Allergy Rash Verified 07/02/23 22:41 [From Elocon] nitrofurantoin Allergy Unknown Verified 07/02/23 22:41 rivaroxaban [From Xarelto] Allergy Rash Verified 07/02/23 22:41 Sulfa (Sulfonamide Allergy Shortness Verified 07/02/23 22:41 Antibiotics) of breath Penicillins AdvReac NEEDS Verified 07/02/23 22:41 FOLLOW-UP Family History Mother Diabetes Grandfather CAD (coronary artery disease) Colon cancer Grandmother Breast cancer Aunt Ovarian cancer Surgical History History of tracheostomy (2010) Social History Smoking Status: Never smoker ROS ROS ED Review of Systems ROS Unobtainable: due to mental condition and due to mental status EXAM Physical Exam Const Vital Signs: 07/02/23 22:22 07/02/23 23:13 07/02/23 23:14 Temperature 98.0 F Temperature Source Temporal Pulse Rate 87 132 H Respiratory Rate 16 26 H Blood Pressure 186/104 H Blood Pressure Mean 131 Pulse Ox 97 96 Oxygen Delivery Method Room Air Nasal Cannula Nasal Cannula Oxygen Flow Rate (L/min) 4 2 07/02/23 23:55 Temperature 98.1 F Temperature Source Temporal Pulse Rate 118 H Respiratory Rate 23 H Blood Pressure 167/96 H Blood Pressure Mean 119 Pulse Ox 94 Oxygen Delivery Method Nasal Cannula Oxygen Flow Rate (L/min) 2 Positive obese General Appearance ED: Negative for pallor Nutritional Appearance: obese HEENT Reports moist mucous membranes Eyes PERRL Resp normal respiratory effort and clear to auscultation bilaterally Auscultation: Negative for rales, rhonchi or wheezes Cardio regular rate and regular rhythm GI normal to inspection, nondistended, normoactive bowel sounds Neuro Neuro Narrative: Altered mental status Psych Psych Narrative: Confused Skin General Skin Exam: Negative for jaundice or pallor MDM MDM MDM Narrative Medical decision making narrative: Patient presenting with altered mental status. Apparently last known to be well at dinnertime this evening. Discussed with her daughter Hailey who stated that she saw her the day before yesterday at her [facility] and she was awake and alert at her baseline. She did note that the patient at that time had chunks in her suprapubic catheter and this was changed. Patient's daughter states that when she gets UTIs she gets very lethargic. There was concern for possible seizure when the patient arrived as the patient was very confused. On examination she is not having anything tonic-clonic. Her arms and are rigid. She is staring straight ahead with no visual threat. Differential includes seizure, intracranial hemorrhage, UTI, pneumonia, COVID, influenza, RSV, dehydration, anemia, electrolyte abnormalities. Septic workup was undertaken as the patient had an episode of hypoxia while was in the room and appears to be altered. Will obtain COVID, influenza, RSV swabs. Urinalysis to assess for UTI. Patient given IV fluids. Patient initially had a normal sinus rhythm but became tachycardic. His second liter of fluids was ordered. I did roll the patient to look at her sacral region and I do not see any signs of decubitus ulcer present currently. There are some erythema noted in the perineal region. Patient covered in stool. Patient with history of VRE and Pseudomonas UTI and she was covered with linezolid and Zosyn which she had been given before by infectious disease. Urinalysis consistent with UTI. Patient pancultured prior to antibiotics given. CBC shows a leukocytosis of 17.1. Hemoglobin 11.9. Platelets normal at 408. Renal function and electrolytes within normal limits. Glucose 162 without anion gap. LFTs are normal. CPK within normal limits. Lactic acid elevated at 5.7. Patient has remained slightly hypertensive. She still little tachycardic. She is on 2 L of oxygen via nasal cannula which is not outside of her baseline by looking back in the record. CT brain was obtained and is negative for acute intracranial findings. Chest x-ray my interpretation shows no acute process. Reevaluation at 11:55 PM the patient's heart rate is down to about 112. Patient is still normotensive and actually little hypertensive. COVID, flu, RSV all negative. Patient is still receiving IV fluids. Discussed with hospitalist for admission and is recommended the patient be put in ICU. Impression: 1. Delirium 2. UTI 3. Sepsis 4. Tachycardia 5. Lactic acidosis Lab Data Attestation: I reviewed the patient's lab results. Labs: Laboratory Results - last 24 hr 07/02/23 07/02/23 07/02/23 22:45 22:45 23:10 WBC Cancelled Corrected WBC Cancelled RBC Cancelled Hgb Cancelled Hct Cancelled MCV Cancelled MCH Cancelled MCHC Cancelled RDW Std Deviation Cancelled RDW Coeff of Juan Antonio Cancelled Plt Count Cancelled MPV Cancelled Immature Gran % (Auto) Cancelled Neut % (Auto) Cancelled Lymph % (Auto) Cancelled [place] % (Auto) Cancelled Eos % (Auto) Cancelled Baso % (Auto) Cancelled Absolute Neuts (auto) Cancelled Absolute Lymphs (auto) Cancelled Total Counted Cancelled Neutrophils % (Manual) Cancelled Band Neutrophils % Cancelled Lymphocytes % (Manual) Cancelled Monocytes % (Manual) Cancelled Eosinophils % (Manual) Cancelled Basophils % (Manual) Cancelled Metamyelocytes % Cancelled Myelocytes % Cancelled Promyelocytes % Cancelled Blast Cells % Cancelled Plasma Cell % (Manual) Cancelled Other Cells % Cancelled Nucleated RBC % Cancelled Nucleated RBCs/100 WBC Cancelled Differential Comment Cancelled Diff Path Review Cancelled Hypersegmented Neuts Cancelled Atypical Lymphocytes Cancelled Reactive Lymphocytes Cancelled Smudge Cells Cancelled Toxic Granulation Cancelled Toxic Vacuolation Cancelled Dohle Bodies Cancelled Yvonne Rods Cancelled Platelet Estimate Cancelled Plt Morphology Comment Cancelled RBC Morphology Cancelled Cancelled Polychromasia Cancelled Hypochromasia Cancelled Poikilocytosis Cancelled Basophilic Stippling Cancelled Anisocytosis Cancelled Microcytosis Cancelled Macrocytosis Cancelled Spherocytes Cancelled Sickle Cells Cancelled Target Cells Cancelled Tear Drop Cells Cancelled Ovalocytes Cancelled Stomatocytes Cancelled Sanders-[place] Bodies Cancelled Brimson Cells Cancelled Bite Cells Cancelled Crenated Cell Cancelled Acanthocytes (Spur) Cancelled Rouleaux Cancelled Schistocytes Cancelled PT Cancelled INR Cancelled APTT Cancelled Sodium 139 Potassium 3.7 Chloride 101 Carbon Dioxide 27.0 Anion Gap 11 BUN 10 Creatinine 0.56 Estim Creat Clear Calc 149.60 Est GFR (MDRD) Af Amer 149 Est GFR (MDRD) Non-Af 123 BUN/Creatinine Ratio 18.0 Glucose 162 H Lactic Acid 5.7 H* Calcium 9.6 Total Bilirubin 0.50 AST 25 ALT 40 Alkaline Phosphatase 96 Total Creatine Kinase 137 Troponin I High Sens 35 Total Protein 9.2 H Albumin 3.6 Globulin 5.6 H Albumin/Globulin Ratio 0.6 L Urine Color Yellow Urine Clarity Turbid Urine pH 7.0 Ur Specific [place] 1.010 Urine Protein 500 H Urine Glucose (UA) Normal Urine Ketones 150 A* Urine Occult Blood 250 H Urine Nitrite Positive H Urine Bilirubin 1 H Urine Urobilinogen 1 H Ur Leukocyte Esterase 500 H Urine RBC 10-25 SEEN Urine WBC 50-100 SEEN Ur Squamous Epith Cells 0-5 SEEN Ur Transition Epith Cell 0-5 SEEN Amorphous Sediment 1+ Urine Bacteria 3+ Urine Mucus 0 SEEN 07/02/23 23:15 WBC 17.1 H Corrected WBC RBC 4.65 Hgb 11.9 L Hct 38.5 MCV 82.8 MCH 25.6 L MCHC 30.9 L RDW Std Deviation 47.5 H RDW Coeff of Juan Antonio 15.8 H Plt Count 408 MPV 9.3 Immature Gran % (Auto) 0.500 Neut % (Auto) 86.2 H Lymph % (Auto) 8.7 L [place] % (Auto) 4.0 Eos % (Auto) 0.3 Baso % (Auto) 0.3 Absolute Neuts (auto) 14.7 H Absolute Lymphs (auto) 1.49 Total Counted Neutrophils % (Manual) Band Neutrophils % Lymphocytes % (Manual) Monocytes % (Manual) Eosinophils % (Manual) Basophils % (Manual) Metamyelocytes % Myelocytes % Promyelocytes % Blast Cells % Plasma Cell % (Manual) Other Cells % Nucleated RBC % 0 Nucleated RBCs/100 WBC Differential Comment Diff Path Review Hypersegmented Neuts Atypical Lymphocytes Reactive Lymphocytes Smudge Cells Toxic Granulation Toxic Vacuolation Dohle Bodies Yvonne Rods Platelet Estimate Plt Morphology Comment RBC Morphology Polychromasia Hypochromasia Poikilocytosis Basophilic Stippling Anisocytosis Microcytosis Macrocytosis Spherocytes Sickle Cells Target Cells Tear Drop Cells Ovalocytes Stomatocytes Sanders-[place] Bodies Brimson Cells Bite Cells Crenated Cell Acanthocytes (Spur) Rouleaux Schistocytes PT 14.2 INR 1.1 APTT 29.3 Sodium Potassium Chloride Carbon Dioxide Anion Gap BUN Creatinine Estim Creat Clear Calc Est GFR (MDRD) Af Amer Est GFR (MDRD) Non-Af BUN/Creatinine Ratio Glucose Lactic Acid Calcium Total Bilirubin AST ALT Alkaline Phosphatase Total Creatine Kinase Troponin I High Sens Total Protein Albumin Globulin Albumin/Globulin Ratio Urine Color Urine Clarity Urine pH Ur Specific [place] Urine Protein Urine Glucose (UA) Urine Ketones Urine Occult Blood Urine Nitrite Urine Bilirubin Urine Urobilinogen Ur Leukocyte Esterase Urine RBC Urine WBC Ur Squamous Epith Cells Ur Transition Epith Cell Amorphous Sediment Urine Bacteria Urine Mucus Radiography Diagnostic Testing: Clinical Impression(s) from Imaging Studies Chest X-Ray 07/02/23 22:30 IMPRESSION: Poor inspiration with some bibasilar atelectasis. Cardiomegaly. Electronically Signed: Yuri Cerna MD at 23:56 EST , Brain CT 07/02/23 23:25 IMPRESSION: Normal unenhanced CT scan of the brain. Acute left sphenoid sinusitis Electronically Signed: Yuri Cerna MD at 23:45 EST , Discharge Plan Triage Chief Complaint: Alt LOC ED Provider: Estevan Aguila Dx/Rx/DC Orders Prescriptions: No Action levothyroxine 75 MCG tablet 75 mcg PO DAILY Patient Comments: HYPOTHYROIDISM duloxetine 60 MG capsule,delayed release(DR/EC) 90 mg PO QHS Hold Instructions: Resume on 11/23/22. Patient Comments: ANXIETY baclofen 10 MG tablet 40 mg PO Q6H acetaminophen 325 MG tablet 650 mg PO Q4H PRN PRN (Reason: Pain or fever) bisacodyl 10 MG suppository 10 mg NC QHS PRN (Reason: Constipation) omeprazole 20 MG capsule,delayed release(DR/EC) 20 mg PO LUNCH furosemide 40 MG tablet 40 mg PO BREAKFAST sennosides 8.6 MG tablet 17.2 mg PO BID polyethylene glycol 3350 17 GM packet 17 gm PO QHS cholecalciferol (vitamin D3) 2,000 UNIT capsule 2,000 unit PO LUNCH docusate sodium [Colace] 100 mg Capsule 200 mg PO BID furosemide 20 mg Tablet 20 mg PO LUNCH isosorbide mononitrate 30 mg Tablet Extended Release 24 Hr 30 mg PO QHS potassium chloride 10 mEq Capsule, Extended Release 10 meq PO LUNCH oxybutynin chloride 10 mg Tablet Extended Release 24hr 30 mg PO DAILY gabapentin 800 mg Tablet 1,600 mg PO TID phenazopyridine [Pyridium] 200 mg Tablet 200 mg PO TID PRN (Reason: Bladder Spasms) melatonin 5 mg Tablet 5 mg PO QHS mirtazapine 30 mg Tablet 15 mg PO QHS simethicone 80 mg Tablet 80 mg PO DAILY PRN (Reason: Gastric Reflux) magnesium hydroxide [Milk of Magnesia] 400 mg/5 mL Suspension 30 ml PO DAILY PRN (Reason: Constipation) loperamide 2 mg Tablet 1 mg PO Q4H PRN (Reason: Diarrhea) Rx Instructions: administer after each loose stool until symptoms controlled; do not exceed 8 mg per 24 hrs ondansetron HCl 4 mg Tablet 4 mg PO Q4H PRN (Reason: Nausea) buprenorphine [Butrans] 15 mcg/hour patch weekly 20 mcg transdermal Q7D cetirizine 10 mg Tablet 10 mg PO QPM linezolid 600 mg Tablet 600 mg PO BID 7 Days Qty: 14 0RF nystatin [Nyamyc] 100,000 unit/gram Powder 1 applic topical BID Qty: 15 0RF Protocol: *Topical Application Instructions APPLICATION INSTRUCTIONS: to folds and groin Rx Instructions: Apply to p[place] diphenhydramine HCl [Allergy (diphenhydramine)] 25 mg tablet 50 mg PO Q8H PRN (Reason: itching) benzonatate 100 mg capsule 100 mg PO Q6H PRN buspirone 10 mg tablet 10 mg PO BID fosfomycin tromethamine 3 gram packet 3 g PO X1 Rx Instructions: one time only for uti ibuprofen [Advil] 200 mg tablet 400 mg PO Q6H Linzess 145 mcg capsule 145 mcg PO LUNCH paroxetine HCl 10 mg tablet 20 mg PO QHS trazodone 50 mg tablet 50 mg PO QHS All Day Allergy (cetirizine) 10 mg capsule 10 mg PO DAILY PRN (Reason: allergies) Myrbetriq 25 mg tablet extended release 24 hr 25 mg PO LUNCH Primary Care Provider: Lavon Vicente Referrals: Lavon Vicente MD [Primary Care Provider] -
[2023-07-02] MEDS: LORazepam 2 MG/ML Syringe 1 MG IV (22:43)
[2023-07-02] MEDS: 0.9% Normal Saline (1000mL) 1,000 ML 999 ML IV ×2 (22:49→23:54)
--- OUTSIDE RECORDS SUMMARY | 2023-07-02 22:55 | XMS RPT_ITS | CCD ---
Author Name Unknown Address [facility] [place] [address] Organization [facility] Care Team Providers Care Financial Administration Officer Name Role Phone PHYSICIAN, PATIENT UNSURE Primary Care Physician Unavailable Patricia Guo Unavailable [phone] Lavon Dowd MD Unavailable [phone] Lavon Dowd MD Primary Care Provider [phone] LAVON DOWD Referring Unavailable LAVON DOWD Primary Care Unavailable ROSA MARIA MARTINEZ Attending Unavailable LONI CUEVAS Attending Unav ailable PHYSICIAN, PATIENT UNSURE Primary Care Unavai labrajni PHYSICIAN, PATIENT UNSURE Primary Care Unavai lable LONI CUEVAS Attending Unav ailable Allergies Allergy Classification Reported Allergen(s) Allergy Type Date of Onset Reaction(s) Facility (5 sources) Coconut extract; Translations: [Cocos nucifera (organism)] Drug Allergy RASH, CLOSES OFF AIRWAY [facility] (4 sources) Morphine; Translations: [morphine] Drug Allergy 5 Unknown [facility] (3 sources) Amoxicillin; Translations: [amoxicillin] Drug Allergy [facility] (3 sources) Penicillin; Translations: [penicillin] Drug Allergy [facility] (2 sources) apixaban; Translations: [APIXABAN] Drug Allergy 5 Unknown [facility] (2 sources) Mometasone; Translations: [MOMETASONE] Drug Allergy 9 Unknown [facility] Work Phone: (2 sources) Nitrofurantoin; Translations: [NITROFURANTOIN] Drug Allergy 9 Unknown [facility] Work Phone: (2 sources) Sulfonamides (Antibiotic); Translations: [SULFA (SULFONAMIDE ANTIBIOTICS)] Propensity to adverse reactions to drug 9 Unknown [facility] Work Phone: Medications Current Medications Medication Drug Class(es) Dates Sig (Normalized) Sig (Original) acetaminophen 325 mg oral capsule (6 sources) Start: 04-03-2019 Tylenol 325 mg oral capsule Dose : 325 mg = 1 cap(s), Oral, q4h, PRN as needed for fever, # 20 cap(s), 0 Refill(s) Start Date: 04/03/19 Status: Ordered Completed/Discontinued Medications Medication Drug Class(es) Dates Sig (Normalized) Sig (Original) ALPRAZolam 0.5 mg oral tablet (1 source) Benzodiazepine take 1 tablet by yuliet th every eight hours as needed ALPRAZolam (XANAX) 0.5 mg tablet Take 0.5 mg by mouth three times daily as needed. 0 Active Problems Problem Classification Problem Date Documented Da te Episodic/Chronic Abdominal pain (5 sources) Acute abdominal pain 07-01-2020 Episodic Anxiety disorders (5 sources) Anxiety disorder 07-01-2020 Chronic Calculus of urinary tract (7 sources) Urinary bladder stone; Translations: [Calculus in bladder] Onset: 07-28-2021 07-01-2020 Episodic Results Test Name Value Interpretation Reference Range Facil ity Vital Signs Date Time Vital Sign Value Performing Clinician Faci lity 10-06-2022 11:29-0400 Body height 160 cm Rosa Maria Wakoopa Work Phone: [facility] 10-06-2022 11:29-0400 Body temperature 97 [degF] Rosa Maria ToroDrip In Work Phone: [facility] 10-06-2022 11:29-0400 Body weight 104.33 kg Rosa Maria Wakoopa Work Phone: [facility] 10-06-2022 11:29-0400 Diastolic blood pressure 70 mm[Hg] Rosa Maria Martinez PA-C Work Phone: [facility] 10-06-2022 11:29-0400 Heart rate 86 /min Rosa Maria Martinez PA-C Work Phone: [facility] 10-06-2022 11:29-0400 Respiratory rate 16 /min Rosa Maria Martinez PA-C Work Phone: [facility] 10-06-2022 11:29-0400 SaO2% (BldA) [Mass fraction] 100 % Rosa Maria Martinez PA-C Work Phone: [facility] 10-06-2022 11:29-0400 Systolic blood pressure 110 mm[Hg] Rosa Maria Martinez PA-C Work Phone: [facility] 07-28-2021 17:53-0500 Body temperature 97.34 [degF] DR MAGDY VOGT MD [facility] 07-28-2021 17:53-0500 Diastolic blood pressure 90 mm[Hg] DR MAGDY VOGT MD [facility] 07-28-2021 17:53-0500 Heart rate 85 /min DR MAGDY VOGT MD [facility] 07-28-2021 17:53-0500 Mean blood pressure 109 mm[Hg] DR MAGDY VOGT MD [facility] 07-28-2021 17:53-0500 Reason For Taking VItal Signs DR MAGDY VOGT MD [facility] 07-28-2021 17:53-0500 Respiratory rate 16 /min DR MAGDY VOGT MD [facility] 07-28-2021 17:53-0500 Systolic blood pressure 146 mm[Hg] DR MAGDY VOGT MD [facility] 07-28-2021 16:09-0500 Body temperature 97.16 [degF] DR MAGDY VOGT MD [facility] 07-28-2021 16:09-0500 Diastolic blood pressure 91 mm[Hg] DR MAGDY VOGT MD [facility] 07-28-2021 16:09-0500 Heart rate 81 /min DR MAGDY VOGT MD [facility] 07-28-2021 16:09-0500 Mean blood pressure 110 mm[Hg] DR MAGDY VOGT MD [facility] 07-28-2021 16:09-0500 Reason For Taking VItal Signs DR MAGDY VOGT MD [facility] 07-28-2021 16:09-0500 Respiratory rate 16 /min DR MAGDY VOGT MD [facility] 07-28-2021 16:09-0500 Systolic blood pressure 148 mm[Hg] DR MAGDY VOGT MD [facility] 07-28-2021 15:56-0500 Body temperature 98.06 [degF] DR MAGDY VOGT MD [facility] 07-28-2021 15:56-0500 Diastolic Blood Pressure NBP [address] MAGDY VOGT MD [facility] 07-28-2021 15:56-0500 Heart rate 85 /min DR MAGDY VOGT MD [facility] 07-28-2021 15:56-0500 Mean blood pressure 101 mm[Hg] DR MAGDY VOGT MD [facility] 07-28-2021 15:56-0500 Respiratory rate 16 /min DR MAGDY VOGT MD [facility] 07-28-2021 15:56-0500 Systolic Blood Pressure NBP [address] MAGDY VOGT MD [facility] 07-28-2021 15:40-0500 Diastolic Blood Pressure NBP [address] MAGDY VOGT MD [facility] 07-28-2021 15:40-0500 Heart rate 87 /min DR MAGDY VOGT MD [facility] 07-28-2021 15:40-0500 Mean blood pressure 108 mm[Hg] DR MAGDY VOGT MD [facility] 07-28-2021 15:40-0500 Systolic Blood Pressure NBP [address] MAGDY VOGT MD [facility] 07-28-2021 15:24-0500 Diastolic Blood Pressure NBP [address] MAGDY VOGT MD [facility] 07-28-2021 15:24-0500 Heart rate 91 /min DR MAGDY VOGT MD [facility] 07-28-2021 15:24-0500 Mean blood pressure 103 mm[Hg] DR MAGDY VOGT MD [facility] 07-28-2021 15:24-0500 Systolic Blood Pressure NBP [address] MAGDY VOGT MD [facility] 07-28-2021 10:28-0500 Body height [address] MAGDY VOGT MD [facility] 07-28-2021 10:28-0500 Diastolic blood pressure 93 mm[Hg] DR MAGDY VOGT MD [facility] 07-28-2021 10:28-0500 Heart rate 79 /min DR MAGDY VOGT MD [facility] 07-28-2021 10:28-0500 Mean blood pressure 113 mm[Hg] DR MAGDY VOGT MD [facility] 07-28-2021 10:28-0500 Systolic blood pressure 153 mm[Hg] DR MAGDY VOGT MD [facility] 07-28-2021 10:23-0500 Body weight 100.[address] MAGDY VOGT MD [facility] Encounters Encounter Date Encounter Type Care Provider Facility Start: 07-01-2023 End: 07-01-2023 Patient encounter procedure LONI GARCIA [facility] Start: 06-21-2023 ambulatory PATIENT UNSURE PHYSICIAN Facility:B Start: 04-21-2023 End: 04-22-2023 ambulatory LONI GARCIA Facility:A Start: 04-21-2023 End: 04-21-2023 Patient encounter procedure LONI PAGE CERTIFIED PHYSICAL 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-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 Start: 06-14-2022 DEPRESSION ASSESSMENT DEPRESSION ASSESSMENT [facility] Start: 2019 COLOGUARD (FIT-DNA) COLOGUARD (FIT-DNA) [facility] Start: 2019 Colonoscopy COLONOSCOPY [facility] Start: 2019 COLORECTAL CANCER SCREENING COLORECTAL CANCER SCREENING [facility] Start: [address] COLONOGRAPHY [facility] Start: 2019 DIABETES SCREEN DIABETES SCREEN [facility] Start: 2019 FECAL OCCULT BLOOD FECAL OCCULT BLOOD [facility] Start: 2019 LIPID SCREEN LIPID SCREEN [facility] Start: 2019 SIGMOIDOSCOPY SIGMOIDOSCOPY [facility] Start: 2014 Mammography MAMMOGRAM [facility] Start: 01-11-2004 HPV TESTING HPV TESTING [facility] Start: 1995 PAP TESTING PAP TESTING [facility] Start: 1993 Urine microalbumin profile DTAP,TDAP,TD (1 - Tdap) [facility] Start: 01-11-1992 HEPATITIS C SCREENING HEPATITIS C SCREENING [facility] Start: 01-11-1992 HIV SCREENING HIV SCREENING [facility] Start: 1974 HEPATITIS B (1 of 3 - 3-dose series) HEPATITIS B (1 of 3 - 3-dose series) [facility] End: 11-05-2023 US KIDNEY/BLADDER US KIDNEY/BLADDER Radiology Routine Bladder stones 1 Occurrences starting 10/06/2022 until 11/05/2023 [facility] Work Phone: Payers Date Payer Category Payer Medicare [employer] PPO [id number] 2022-Present [phone] [address] [address] [place] [address] PPO [id number] 2022 Medicare [id number] 2014 Medicaid [employer] [id number] 2014-Present [phone] [address] [place] [address] Medicaid [id number] 2014 Medicaid [id number] 1974 Unknown [id number] 1974 Unknown [id number] Social History Date Type Detail Facility Start: 04-03-2019 End: 04-05-2019 Never smoked tobacco (finding) [facility] Sex Assigned At Female [facility] Start: 04-05-2019 Tobacco use and exposure Smokeless tobacco non-user [facility] Start: 10-06-2022 Alcohol intake Current non-dr curatorial specialist of alcohol (finding) [facility] Start: 1975 Sex Assigned At Not on file [facility] Clinical Notes 01-15-2021 to 07-01-2023 Rosa Maria Martinez PA-C - 10/06/2022 7:02 PM [facility]iology[facility]iologyRadiology Note Date & Type Note Facility 07-01-2023 Note ORIGINAL EXAMINATION: CT OF THE ABDOMEN AND PELVIS WITHOUT CONTRAST 07/01/2023 12:01 pm TECHNIQUE: CT of the abdomen and pelvis was performed without the administration of intravenous contrast. Multiplanar reformatted images are provided for review. Automated exposure control, iterative reconstruction, and/or weight based adjustment of the mA/kV was utilized to reduce the radiation dose to as low as reasonably achievable. COMPARISON: 04/09/2021. HISTORY: ORDERING SYSTEM PROVIDED HISTORY: Reason for Exam: bladder stones FINDINGS: There is fatty infiltration of the liver. Spleen, pancreas, and left kidney are unremarkable. There is mild right hydronephrosis. The urinary bladder is decompressed with a Mccarthy catheter in place. There are 6 urinary bladder calculi measuring 1.2-1.6 cm in diameter. Previously there were larger but fewer calculi with an overall similar volume. There is no abdominal aortic aneurysm. There is no lymphadenopathy. There is no bowel obstruction. There is no free air or free fluid. ORIF hardware is again demonstrated in the left hip. There is stable dysplastic appearance of the right hip with stable degenerative changes. There is no acute bony abnormality. There is subsegmental atelectasis at the lung bases. IMPRESSION: Mild right hydronephrosis. Multiple prominent urinary bladder calculi again demonstrated. Fatty infiltration of the liver. Other stable chronic findings as described above. Interpreted by: Yaya Todd Preliminary Report By: Yaya Todd Electronically signed By Yaya Todd Dictated Date: 07/01/2023 1:02:43 PM Prelim Date: 07/01/2023 1:15:25 PM Sign Date: 07/01/2023 1:15:25 PM Ordering Provider: [facility] 10-06-2022 Note HNO ID: [id number] Author: Rosa Maria Martinez PA-C Service: ? Author Type: Physician Protective Services Officer Type: Progress Notes Filed: 10/06/2022 7:08 PM Note Text: [facility] NEW PATIENT CLINIC NOTE SERVICE DATE: 10/06/2022 SERVICE TIME: 7:02 PM NAME: Tra Reed CHIEF COMPLAINT: Bladder Stone History HISTORY OF PRESENT ILLNESS: Tra Reed is a 47 year old female presenting with known history of Bladder Stones s/p Cystolithopaxy 1Numerous 1-2 cm bladder calculi s/p cystolitholapaxy (04/03/19) The patient reports she is concerned that she may have more bladder stones and may need therapy Will get a new US to check on this issuw and then make referral to Staff Urologist if needed. LUTS: DYSURIA: no URGENCY: No FREQUENCY:6 per day NOCTURIA: 2 per night STRAINING TO VOID: No EMPTIES COMPLETELY: No UTI: 2 past 12 months GROSS HEMATURIA: no UA DIPSTICK POSITIVE ONLY: no Other symptoms: LABS: No results found for: TESTOST No results found for: TESTFREE No results found for: PSA Hematocrit (%) Date Value 02/18/2019 35.4 No results found for: PSA No results found for: CREAT . MEDICATIONS: Sennosides 8.6 mg cap Take 17.2 mg by mouth twice daily. POLYETHYLENE GLYCOL 3350 ORAL Take 17 g by mouth daily at bedtime. docusate sodium (COLACE) 100 mg capsule Take 200 mg by mouth daily at bedtime. ISOSORBIDE MONONITRATE ORAL Take 30 mg by mouth daily at bedtime. potassium chloride ER (KLOR-CON M10) 10 mEq tablet Take 10 mEq by mouth once daily. busPIRone (BUSPAR) 7.5 mg tablet Take 7.5 mg by mouth three times daily. OXYBUTYNIN CHLORIDE ORAL Take 30 mg by mouth once daily. phenazopyridine (PYRIDIUM) 200 mg tablet Take 200 mg by mouth three times daily as needed. melatonin 5 mg tablet Take 5 mg by mouth daily at bedtime. mirtazapine (REMERON) 30 mg tablet Take 30 mg by mouth daily at bedtime. PARoxetine (PAXIL) 10 mg tablet Take 10 mg by mouth daily at bedtime. simethicone, chewable (GAS RELIEF, SIMETHICONE,) 80 mg chewable tablet Take 80 mg by mouth once daily as needed. magnesium hydroxide (MILK OF MAGNESIA) 400 mg/5 mL suspension Take 30 mL by mouth once daily as needed. buprenorphine (BUTRANS) 15 mcg/hour patch Apply 1 Patch as directed one time a week. Cetirizine 10 mg cap Take 10 mg by mouth once daily. omeprazole (PRILOSEC) 20 mg capsule Take 20 mg by mouth once daily. Cholecalciferol, Vitamin D3, 1,000 unit cap Take 2,000 Units by mouth once daily. baclofen (LIORESAL) 20 mg tablet Take 40 mg by mouth every 6 hours as needed. DULoxetine (CYMBALTA) 60 mg capsule Take 60 mg by mouth twice daily. 90 mg by mouth at bedtime furosemide (LASIX) 40 mg tablet Take 40 mg by mouth once daily. Also takes 20 MG by mouth at lunch gabapentin (NEURONTIN) 800 mg tablet Take 800 mg by mouth. 2 tablets every 8 hours levothyroxine (SYNTHROID) 75 mcg tablet Take 75 mcg by mouth once daily. acetaminophen (TYLENOL) 325 mg tablet Take 650 mg by mouth every 6 hours as needed. Every 4 hours as needed BISACODYL RECTAL 10 mg by RECTAL route at bedtime as needed. sodium phosphate,mono-dibasic (FLEET ENEMA RECTAL) by RECTAL route as needed. (Patient not taking: Reported on 10/06/2022) mirabegron (MYRBETRIQ) 25 mg Tb24 Take 25 mg by mouth once daily. (Patient not taking: Reported on 10/06/2022) lactobacillus rhamnosus (CULTURELLE) 10 billion cell capsule Take 1 capsule by mouth once daily. (Patient not taking: Reported on 10/06/2022) oxyCODONE myristate (XTAMPZA ER) 36 mg CSpT Take 36 mg by mouth twice daily for 30 days. peg 3350-Electrolytes (GOLYTELY) 236-22.74-6.74 -5.86 gram suspension Refer to printed patient instructions that will be mailed to you. (Patient not taking: Reported on 10/06/2022) nystatin (MYCOSTATIN) powder Apply to affected area four times daily. (Patient not taking: Reported on 10/06/2022) clotrimazole (LOTRIMIN, CLOTRIM) 1 % cream Apply to affected area twice daily. (Patient not taking: Reported on 10/06/2022) Ascorbic Acid 1,000 mg tablet Take 1,000 mg by mouth once daily. (Patient not taking: Reported on 10/06/2022) amitriptyline (ELAVIL) 25 mg tablet Take 25 mg by mouth daily at bedtime. (Patient not taking: Reported on 10/06/2022) Ascorbic Acid 500 mg wafr Take by mouth twice daily. (Patient not taking: Reported on 10/06/2022) IRON POLYSACCHARIDE COMPLEX (FERREX 150 ORAL) Take by mouth once daily. (Patient not taking: Reported on 10/06/2022) ALPRAZolam (XANAX) 0.5 mg tablet Take 0.5 mg by mouth three times daily as needed. 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 [facility] 10-06-2022 History of Present illness Narrative Images from the original note were not included. [facility] NEW PATIENT CLINIC NOTE SERVICE DATE: 10/06/2022 SERVICE TIME: 7:02 PM NAME: Tra Reed CHIEF COMPLAINT: Bladder Stone History HISTORY OF PRESENT ILLNESS: Tra Reed is a 47 year old female presenting with known history of Bladder Stones s/p Cystolithopaxy 1Numerous 1-2 cm bladder calculi s/p cystolitholapaxy (04/03/19) The patient reports she is concerned that she may have more bladder stones and may need therapy Will get a new US to check on this issuw and then make referral to Staff Urologist if needed. LUTS: DYSURIA: no URGENCY: No FREQUENCY:6 per day NOCTURIA: 2 per night STRAINING TO VOID: No EMPTIES COMPLETELY: No UTI: 2 past 12 months GROSS HEMATURIA: no UA DIPSTICK POSITIVE ONLY: no Other symptoms: LABS: No results found for: TESTOST No results found for: TESTFREE No results found for: PSA Hematocrit (%) Date Value 02/18/2019 35.4 No results found for: PSA No results found for: CREAT . MEDICATIONS: Sennosides 8.6 mg cap Take 17.2 mg by mouth twice daily. POLYETHYLENE GLYCOL 3350 ORAL Take 17 g by mouth daily at bedtime. docusate sodium (COLACE) 100 mg capsule Take 200 mg by mouth daily at bedtime. ISOSORBIDE MONONITRATE ORAL Take 30 mg by mouth daily at bedtime. potassium chloride ER (KLOR-CON M10) 10 mEq tablet Take 10 mEq by mouth once daily. busPIRone (BUSPAR) 7.5 mg tablet Take 7.5 mg by mouth three times daily. OXYBUTYNIN CHLORIDE ORAL Take 30 mg by mouth once daily. phenazopyridine (PYRIDIUM) 200 mg tablet Take 200 mg by mouth three times daily as needed. melatonin 5 mg tablet Take 5 mg by mouth daily at bedtime. mirtazapine (REMERON) 30 mg tablet Take 30 mg by mouth daily at bedtime. PARoxetine (PAXIL) 10 mg tablet Take 10 mg by mouth daily at bedtime. simethicone, chewable (GAS RELIEF, SIMETHICONE,) 80 mg chewable tablet Take 80 mg by mouth once daily as needed. magnesium hydroxide (MILK OF MAGNESIA) 400 mg/5 mL suspension Take 30 mL by mouth once daily as needed. buprenorphine (BUTRANS) 15 mcg/hour patch Apply 1 Patch as directed one time a week. Cetirizine 10 mg cap Take 10 mg by mouth once daily. omeprazole (PRILOSEC) 20 mg capsule Take 20 mg by mouth once daily. Cholecalciferol, Vitamin D3, 1,000 unit cap Take 2,000 Units by mouth once daily. baclofen (LIORESAL) 20 mg tablet Take 40 mg by mouth every 6 hours as needed. DULoxetine (CYMBALTA) 60 mg capsule Take 60 mg by mouth twice daily. 90 mg by mouth at bedtime furosemide (LASIX) 40 mg tablet Take 40 mg by mouth once daily. Also takes 20 MG by mouth at lunch gabapentin (NEURONTIN) 800 mg tablet Take 800 mg by mouth. 2 tablets every 8 hours levothyroxine (SYNTHROID) 75 mcg tablet Take 75 mcg by mouth once daily. acetaminophen (TYLENOL) 325 mg tablet Take 650 mg by mouth every 6 hours as needed. Every 4 hours as needed BISACODYL RECTAL 10 mg by RECTAL route at bedtime as needed. sodium phosphate,mono-dibasic (FLEET ENEMA RECTAL) by RECTAL route as needed. (Patient not taking: Reported on 10/06/2022) mirabegron (MYRBETRIQ) 25 mg Tb24 Take 25 mg by mouth once daily. (Patient not taking: Reported on 10/06/2022) lactobacillus rhamnosus (CULTURELLE) 10 billion cell capsule Take 1 capsule by mouth once daily. (Patient not taking: Reported on 10/06/2022) oxyCODONE myristate (XTAMPZA ER) 36 mg CSpT Take 36 mg by mouth twice daily for 30 days. peg 3350-Electrolytes (GOLYTELY) 236-22.74-6.74 -5.86 gram suspension Refer to printed patient instructions that will be mailed to you. (Patient not taking: Reported on 10/06/2022) nystatin (MYCOSTATIN) powder Apply to affected area four times daily. (Patient not taking: Reported on 10/06/2022) clotrimazole (LOTRIMIN, CLOTRIM) 1 % cream Apply to affected area twice daily. (Patient not taking: Reported on 10/06/2022) Ascorbic Acid 1,000 mg tablet Take 1,000 mg by mouth once daily. (Patient not taking: Reported on 10/06/2022) amitriptyline (ELAVIL) 25 mg tablet Take 25 mg by mouth daily at bedtime. (Patient not taking: Reported on 10/06/2022) Ascorbic Acid 500 mg wafr Take by mouth twice daily. (Patient not taking: Reported on 10/06/2022) IRON POLYSACCHARIDE COMPLEX (FERREX 150 ORAL) Take by mouth once daily. (Patient not taking: Reported on 10/06/2022) ALPRAZolam (XANAX) 0.5 mg tablet Take 0.5 mg by mouth three times daily as needed. 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 Allergic rhinitis Anemia, unspecified Anxiety Constipated Edema Encephalopathy Hypothyroidism Hypothyroidism Laceration of unsp part of small intestine, subs encntr Major depressive disorder Muscle spasm Neuralgia and neuritis, unspecified Neuromuscular dysfunction of bladder Nutritional anemia past med WPWhite syndrome PMH - PAST MEDICAL HISTORY OF Back pain, torn ligaments Polyneuropathy Pressure ulcer of right buttock Quadriplegia (HCC) UTI (urinary tract infection) Vitamin D deficiency PAST SURGICAL HISTORY: PAST SURGICAL HISTORY Procedure Laterality Date LIG/TRNSXJ FLP TUBE ABDL/VAG APPR UNI/BI 1991 Tubal ligation FAMILY HISTORY: FAMILY HISTORY Problem Relation Age of Onset No Family History No Family History colon cancer/polyps SOCIAL HISTORY: Social Connections: Not on file REVIEW OF SYSTEMS: GENERAL: No fever, chills, weight loss, or fatigue. ENMT: Negative CARDIOVASCULAR:NO CHEST PAIN, PALPITATIONS, ANKLE EDEMA RESPIRATORY: No chronic cough, wheezing, dyspnea, hemoptysis. GENITOURINARY: SEE HPI MUSCULOSKELETAL:NO CHRONIC BACK PAIN, ARTHRITIS, CHRONIC NECK PAIN SKIN: NO VARICOSE VEINS, RASH, ABNORMAL ITCHING HEME/LYMPH/IMMUNE:Negative for prolonged bleeding, bruising easily or swollen nodes NEUROLOGICAL: NO HEADACHES, NUMBNESS, SEIZURES, STROKE DIABETES: no All other systems reviewed and are negative PHYSICAL EXAMINATION: Blood pressure 110/70, pulse 86, temperature 36.1 C (97 F), temperature source Temporal, resp. rate 16, height 160 cm (5' 3 ), weight 104.3 kg (230 lb), last menstrual period 07/15/2009, SpO2 100 %. GENERAL: WNL nutrition, no deformities, healthy appearing NEURO: Awake, alert and oriented x 3 and Normal gait PSYCH: No signs of depression, anxiety, or agitation ENMT (Ear, Nose, Mouth, Throat): No masses, adenopathy, icterus. Thyroid nonpalpable RESP: NL effort, no retractions or purse-lip breathing. CV: No extremity swelling, varices, edema, pallor, erythema GASTROINTESTINAL: Soft, nontender, nondistended, no masses. HERNIAS: None SKIN: No rash, lesions No palpable lymphadenopathy MUSCULOSKELETAL: Extremities normal. No deformities, edema, clubbing or skin discoloration. PROBLEM LIST REVIEW: Yes LABS: PROCEDURES: IMAGING: Renal/Bladder US - Pending IMPRESSION/PLAN: 47 year old female with 1. Bladder stones - ICD9: 594.1, ICD10: N21.0 (primary diagnosis) 2. Paraplegia (HCC) - ICD9: 344.1, ICD10: G82.20 > Renal /Bladder US - Pending I spent a total of 30 minutes on the date of the service which included preparing to see the patient, face to face patient care, completing clinical documentation, obtaining and/or reviewing separately obtained history, performing a medically appropriate examination, counseling and educating the patient/family/caregiver, ordering medications, tests, or procedures, and care coordination. LIZ Herrmann, MT, GUILHERME documented in this encounter [facility] [place] 07-28-2021 Hospital Discharge instructions Patient Education 07/28/2021 17:04:30 1-[facility] Discharge Instructions Template (03/2018)(CUSTOM) [facility] SAME DAY SURGERY DISCHARGE INSTRUCTIONS PLEASE FOLLOW THE INSTRUCTIONS BELOW MARKED WITH AN X: _x__ Regular Diet: Start with clear liquids, then soup and crackers and gradually add other foods. _x__ Drink extra fluids. ___ Special Diet Instructions: ___ ACTIVITY: _x__ Since you have had an anesthetic, it would be advisable not to drive, drink alcohol, or make major decisions over the next 24 hours. You may require more rest tonight and tomorrow. ___ May resume regular activity as tolerated. ___ Restrict activity as follows: ___ ___ Walk Only ___ ___ Do not go up and down stairs. ___ Do not ride in car until ___ ___ Do not drive car. ___ Do not have sexual intercourse. ___ No heavy lifting, pushing or straining. _x__ Other: _Follow all verbal and written post operative instructions from Dr Vogt.__ BATHING/SHOWERING: ___ Sponge bathe until office visit. ___ Sitting in tub of warm water may relieve discomfort. ___ May tub bathe ___ May shower ___ On day after surgery sit in tub of warm water to soak off dressing. DRESSING: ___ Keep operative area dry and clean for ___ ___ Check the operative area for signs of bleeding. Apply pressure to the bleeding site if necessary and call your physician. ___ Change dressing as necessary using sterile dressing material or bandaid. ___ Reinforce dressing as necessary. ___ Change and care for wound as follows: ___ ___ Wear bra for ___ days following breast surgery for comfort. ___ Change drip pad as needed. ___ Wear scrotal support for comfort. WATCH FOR SIGNS OF INFECTION: (Usually appears 36-48 hours after surgery) Increased temperature (101 degrees Fahrenheit or higher) Redness or swelling Increased pain Foul odor or drainage. If you have any questions, please call your doctor at the number listed on your follow up instructions. Follow all instructions given to you by your physician. Please complete and return the survey you will be receiving in the mail to help us better serve our patients. Form: 1522 ([id number]) R: 09/20 Follow Up Care 05/19/2021 14:15:41 With:MAGDY VOGT MD, [facility], Urology Service Address: [phone] When: Unknown Comments:Follow-up as scheduled [facility] 01-15-2021 Evaluation + Plan note Future Appointments Future Scheduled TestsBasic Metabolic Panel 01/15/21Basic Metabolic Panel 04/30/21Urine Culture 04/30/21Complete Blood Count 04/30/21XR Abdomen AP 01/15/21 [facility] 01-15-2021 Evaluation + Plan note Future Scheduled TestsBasic Metabolic Panel 01/15/21Basic Metabolic Panel 04/30/21Urine Culture 04/30/21Complete Blood Count 04/30/21XR Abdomen AP 01/15/21XR Abdomen AP 09/08/21 [facility] Evaluation + Plan note Future Appointments Appointment Date:04/30/2021 01:40:00 PM Scheduled Provider:LONI PAGE Location:[facility] Appointment Type:[facility] OV Future Scheduled TestsBasic Metabolic Panel 01/15/21XR Abdomen AP 01/15/21 [facility] Evaluation + Plan note Future Appointments Appointment Date:06/21/2023 02:40:00 PM Scheduled Provider:LONI PAGE APRN-TRACK SUPERINTENDENT Location:UROLOGY Appointment Type:URO OV Future Scheduled TestsCT Abdomen and Pelvis w/o contrast 04/21/23 [facility]arr[facility] No data available for this section [facility] Hospital Discharge instructions No data available for this section [facility] Progress note No data available for this section [facility] Reason for referral (narrative)* Diagnostic Procedure Only (Routine) - Authorized Specialty Diagnoses / Procedures Referred By Contac t Referred To Contact US IMAGING Diagnoses Bladder stones Procedures US KIDNEY/BLADDER US RETROPERITONEAL REAL TIME W/IMAGE COMPLETE Rosa Maria Martinez PA-C [address] [place] [address] Us Imaging Referral ID Status Reason Start Date Expiration Date Visits Requested Visits Authorized [id number] Authorized Auto-Generat ed Referral 10/06/2022 11/05/2023 1 1 [facility] Summary Purpose Family History No Family History Records Found No data available for this section No Family History Records Found No data available for this section Advance Directives No Advanced Directives Records FoundNo Advanced Directives Records Found Additional Source Comments Source Comments (unrecognize d section and content) In the event this informatio n is protected by the Federal Confidentiality of Alcohol and Drug Abuse Patient Records regulations: The Federal rules restrict any use of the information to criminally investigate or prosecute any alcohol or drug abuse patient.[facility] Reason for Visit (unrecogniz ed section and content) Care Teams (unrecognized sec tion and content) Care Team Personnel Name: PHYSICIAN, PATIENT UNSURE Member Role: Primary Care Physician Care Team Related Persons Name: HEMANT ONTIVEROS Name: ZARI ALVARADO Name: JOELLEN GERMAIN INFORMATION SOURCE (unrecogn ized section and content) DATE CREATED AUTHOR AUTHOR'S ORGANIZ ATION 06/22/2023 [facility] ([place]) FOR RECORDS PERTAINING TO PATIENTS WHO ARE OR HAVE BEEN ENROLLED IN A CHEMICAL DEPENDENCY/SUBSTANCEABUSE PROGRAM, SOME INFORMATION MAY BE OMITTED. This clinical summary was aggregated from multiple sources. Caution should be exercised in using it in the provision of clinical care. This summary normalizes information from multiple sources, and as a consequence, information in this document may materially change the coding, format and clinical context of patient data. In addition, data may be omitted in some cases. CLINICAL DECISIONS SHOULD BE BASED ON THE PRIMARY CLINICAL RECORDS. [facility]. provides no warranty or guarantee of the accuracy or completeness of information in this document.
[2023-07-02 23:13] LABS: Mucous, Urine 0 SEEN /hpf (<or=2+)
[2023-07-02 23:14] VITALS: PULSE 132; RESP 26; O2SAT 96
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
[2023-07-02 23:20] LABS: ALB/GLOB Ratio 0.6 RATIO (0.9-2.4); AST(SGOT) 25 U/L (15-37); Alanine Aminotransfer ALT/SGPT 40 U/L (13-56); Albumin, Serum 3.6 g/dL (3.2-5.0); Alkaline Phosphatase 96 U/L (45-117); Anion Gap 11 (5-15); BUN 10 mg/dL (7-18); CPK Total, Creatine Kinase 137 U/L (26-192); Calcium,Total 9.6 mg/dL (8.5-10.1); Chloride 101 mmol/L (98-107); Creatinine, Serum 0.56 mg/dL (0.55-1.02); EST Glomerular Filtration Rate 123 mL/min (>60); Est Glom Filt Rate - Afr Amer 149 mL/min (>60); Globulin 5.6 g/dL (2.2-4.2); Glucose 162 mg/dL (74-106); Potassium 3.7 mmol/L (3.5-5.1); Protein, Total 9.2 g/dL (6.4-8.2); Sodium Level 139 mmol/L (136-145); Troponin-I HS 35 pg/mL (3.0-54.0)
[2023-07-02 23:23] LABS: Color, Urine Yellow (Yellow); Glucose, Dipstick Normal (Normal); Leukocyte Esterase-Dipstick 500 /ul (Negative); Nitrite-Dipstick Positive (Negative); Occult Blood-Urine 250 /ul (Negative); Protein-Dipstick 500 mg/dl (Negative); Urine Clarity Turbid (Clear); Urine Urobilinogen 1 mg/dl (Normal)
[2023-07-02 23:24] LABS: Ketone-Dipstick 150 mg/dl (Negative); Urine Bilirubin Dipstick 1 mg/dL (Negative)
--- NOTE | 2023-07-02 23:25 | CT_ITS ---
STUDY: CT BRAIN WITHOUT CONTRAST REASON FOR EXAM: Female, 48 years old. SEIZURE RADIATION DOSAGE (If Supplied By Facility): CTDIvol = ( 44.99 ) mGy, DLP = ( 863.60 ) mGycm TECHNIQUE: Transaxial CT imaging of the brain was performed without administration of intravenous contrast material. Individualized dose optimization techniques were used for this CT. COMPARISON: 11/06/2022 FINDINGS: Normal soft tissue structures. Normal calvarium. Normal size ventricles and extra-axial spaces for the patient''s age. Normal white matter tracts of the cerebral hemispheres. Normal basal ganglia and thalami. Normal brainstem. Normal cerebellum. There is no intracranial hemorrhage. There are no findings of an acute ischemic infarction. Air-fluid level in the left sphenoid sinus consistent with acute sinusitis. CT/Brain/Head without Contrast IMPRESSION: Normal unenhanced CT scan of the brain. Acute left sphenoid sinusitis Electronically Signed: Yuri Cerna MD at 23:45 EST ,
[2023-07-02 23:26] LABS: Absolute Lymphocyte Count 1.49 X10^3/uL (0.83-4.51); Absolute Neutrophil Count 14.7 X10^3/uL (2.0-7.7); Basophil# 0.05 X10^3/uL; Basophil% 0.3 % (0-1); Eosinophil# 0.05 X10^3/uL; Eosinophils% 0.3 % (0-5); Hematocrit 38.5 % (37-47); Hemoglobin 11.9 g/dL (12.0-15.0); Lymphocyte # 1.49 X10^3/ul (0.83-4.51); Lymphocyte % 8.7 % (19-41); Mean Corp Hgb Conc 30.9 g/dL (32-36); Mean Corpuscular Hgb 25.6 pg (27.0-32.0); Mean Corpuscular Volume 82.8 fL (81-99); Mean Platelet Vol. 9.3 fl (6.2-12.0); Monocyte# 0.68 X10^3/uL; NRBC Flagged by Analyzer 0 % (0-5); Neutrophil # 14.74 X10^3/uL (2.7-7.7); Neutrophil % 86.2 % (47-70); Platelet Count 408 K/mm3 (150-450); RBC Distribution Width CV 15.8 % (11.6-14.6); RBC Distribution Width SD 47.5 fl (35.1-43.9); Red Blood Count 4.65 M/mm3 (4.2-5.4); White Blood Count 17.1 K/mm3 (4.4-11.0)
[2023-07-02 23:30] LABS: Lactic Acid 5.7 mmol/L (0.4-1.9)
[2023-07-02 23:31] VITALS: BP 155/97; PULSE 111; RESP 24; TEMP 37; O2SAT 95
[2023-07-02 23:42] LABS: International Normalized Ratio 1.1; Prothrombin Time (Protime)PT. 14.2 SECONDS (11.7-14.9)
[2023-07-02] MEDS: Piperacil/Tazobactam 3.375 GM in 0.9% Normal Saline (50mL MB+) 50 ML IV (23:42)
[2023-07-02 23:43] LABS: Partial Thromboplast Time 29.3 Seconds (24.1-36.2)
[2023-07-02 23:44] LABS: Amorphous Sediment 1+; Bacteria 3+ /hpf (None Seen); Red Blood Cells-Urine 10-25 SEEN /hpf (0-5); Squamous Epithelial Cells - UA 0-5 SEEN /hpf (5-10); Transitional Epithelial - Ur 0-5 SEEN /hpf (0-5); White Blood Cells 50-100 SEEN /hpf (0-5)
[2023-07-02 23:55] VITALS: BP 167/96; PULSE 118; RESP 23; TEMP 36.7; O2SAT 94
[2023-07-03] VITALS (38 sets, daily range): BP systolic 94–240; BP diastolic 49–167; PULSE 63–120; RESP 17–31; TEMP 36.1–36.6; O2SAT 90–96; BMI 41.0
--- NOTE | 2023-07-03 | ED.RN ---
Multiple attempts to put another iv in x3,unsuccessful at this time.
--- OUTSIDE RECORDS SUMMARY | 2023-07-03 00:05 | XMS RPT_ITS | CCD ---
Author Name Unknown Address [address] [place] [address] Organization [facility] Care Team Providers Care Cytogenetics Laboratory Manager Name Role Phone PHYSICIAN, PATIENT UNSURE Primary Care Physician Unavailable Patricia Guo Unavailable Lavon Dowd MD Unavailable Lavon Dowd MD Primary Care Provider [phone] LAVON DOWD Referring Unavailable LAVON DOWD Primary Care Unavailable ROSA MARIA HEWITT Attending Unavailable PHYSICIAN, PATIENT UNSURE Primary Care LONI Melissa Attending Unav ailable PHYSICIAN, PATIENT UNSURE Primary Care LONI Melissa Attending Dylan ailable Allergies Allergy Classification Reported Allergen(s) Allergy Type Date of Onset Reaction(s) Facility (5 sources) Coconut extract; Translations: [Cocos nucifera (organism)] Drug Allergy RASH, CLOSES OFF AIRWAY [facility] (4 sources) Morphine; Translations: [morphine] Drug Allergy 5 Unknown [facility] (3 sources) Amoxicillin; Translations: [amoxicillin] Drug Allergy [facility] (3 sources) Penicillin; Translations: [penicillin] Drug Allergy [facility] (2 sources) apixaban; Translations: [APIXABAN] Drug Allergy 5 Unknown [facility] (2 sources) Mometasone; Translations: [MOMETASONE] Drug Allergy 9 Unknown [facility] Work Phone: (2 sources) Nitrofurantoin; Translations: [NITROFURANTOIN] Drug Allergy 9 Unknown [facility] Work Phone: (2 sources) Sulfonamides (Antibiotic); Translations: [SULFA (SULFONAMIDE ANTIBIOTICS)] Propensity to adverse reactions to drug 9 Unknown [facility] Work Phone: Medications Current Medications Medication Drug [...] 11:29-0400 Body height 160 cm Rosa Maria [employer] Work Phone: [facility] 10-06-2022 11:290400 Body temperature 97 [degF] Rosa Maria [employer] Work Phone: [facility] 10-06-2022 11:29-0400 Body weight 104.33 kg Rosa Maria Hewitt PA-C Work Phone: [facility] 10-06-2022 11:29-0400 Diastolic blood pressure 70 mm[Hg] Rosa Maria Hewitt PA-C Work Phone: [facility] 10-06-2022 11:29-0400 Heart rate 86 /min Rosa Maria Hewitt PA-C Work Phone: [facility] 10-06-2022 11:29-0400 Respiratory rate 16 /min Rosa Maria Hewitt PA-C Work Phone: [facility] 10-06-2022 11:29-0400 SaO2% (BldA) [Mass fraction] 100 % Rosa Maria Hewitt PA-C Work Phone: [facility] 10-06-2022 11:29-0400 Systolic blood pressure 110 mm[Hg] Rosa Maria Hewitt PA-C Work Phone: [facility] 07-28-2021 17:53-0500 Body temperature 97.34 [degF] DR MAGDY ROE MD [facility] 07-28-2021 17:53-0500 Diastolic blood pressure 90 mm[Hg] DR MAGDY ROE MD [facility] 07-28-2021 17:53-0500 Heart rate 85 /min DR MAGDY ROE MD [facility] 07-28-2021 17:53-0500 Mean blood pressure 109 mm[Hg] DR MAGDY ROE MD [facility] 07-28-2021 17:53-0500 Reason For Taking VItal Signs DR MAGDY ROE MD [facility] 07-28-2021 17:53-0500 Respiratory rate 16 /min DR MAGDY ROE MD [facility] 07-28-2021 17:53-0500 Systolic blood pressure 146 mm[Hg] DR MAGDY ROE MD [facility] 07-28-2021 16:09-0500 Body temperature 97.16 [degF] DR MAGDY ROE MD [facility] 07-28-2021 16:09-0500 Diastolic blood pressure 91 mm[Hg] DR MAGDY ROE MD [facility] 07-28-2021 16:09-0500 Heart rate 81 /min DR MAGDY ROE MD [facility] 07-28-2021 16:09-0500 Mean blood pressure 110 mm[Hg] DR MAGDY ROE MD [facility] 07-28-2021 16:09-0500 Reason For Taking VItal Signs DR MAGDY ROE MD [facility] 07-28-2021 16:09-0500 Respiratory rate 16 /min DR MAGDY ROE MD [facility] 07-28-2021 16:09-0500 Systolic blood pressure 148 mm[Hg] DR MAGDY ROE MD [facility] 07-28-2021 15:56-0500 Body temperature 98.06 [degF] DR MAGDY ROE MD [facility] 07-28-2021 15:56-0500 Diastolic Blood Pressure NBP [address] MAGDY ROE MD [facility] 07-28-2021 15:56-0500 Heart rate 85 /min DR MAGDY ROE MD [facility] 07-28-2021 15:56-0500 Mean blood pressure 101 mm[Hg] DR MAGDY ROE MD [facility] 07-28-2021 15:56-0500 Respiratory rate 16 /min DR MAGDY ROE MD [facility] 07-28-2021 15:56-0500 Systolic Blood Pressure NBP [address] MAGDY ROE MD [facility] 07-28-2021 15:40-0500 Diastolic Blood Pressure NBP [address] MAGDY ROE MD [facility] 07-28-2021 15:40-0500 Heart rate 87 /min DR MAGDY ROE MD [facility] 07-28-2021 15:40-0500 Mean blood pressure 108 mm[Hg] DR MAGDY ROE MD [facility] 07-28-2021 15:40-0500 Systolic Blood Pressure NBP [address] MAGDY ROE MD [facility] 07-28-2021 15:24-0500 Diastolic Blood Pressure NBP [address] MAGDY ROE MD [facility] 07-28-2021 15:24-0500 Heart rate 91 /min DR MAGDY ROE MD [facility] 07-28-2021 15:24-0500 Mean blood pressure 103 mm[Hg] DR MAGDY ROE MD [facility] 07-28-2021 15:24-0500 Systolic Blood Pressure NBP [address] MAGDY ROE MD [facility] 07-28-2021 10:28-0500 Body height [address] MAGDY ROE MD [facility] 07-28-2021 10:28-0500 Diastolic blood pressure 93 mm[Hg] DR MAGDY ROE MD [facility] 07-28-2021 10:28-0500 Heart rate 79 /min DR MAGDY ROE MD [facility] 07-28-2021 10:28-0500 Mean blood pressure 113 mm[Hg] DR MAGDY ROE MD [facility] 07-28-2021 10:28-0500 Systolic blood pressure 153 mm[Hg] DR MAGDY ROE MD [facility] 07-28-2021 10:23-0500 Body weight 100.[address] MAGDY ROE MD [facility] Encounters Encounter Date Encounter Type Care Provider Facility Start: 07-01-2023 End: 07-02-2023 ambulatory PATIENT UNSURE PHYSICIAN Facility:B Start: 07-01-2023 End: 07-01-2023 Patient encounter procedure LONI PAGE EMPLOYMENT COUNSELOR-RADIOLOGY EQUIPMENT SERVICER [facility] Start: 04-21-2023 End: 04-22-2023 ambulatory PATIENT UNSURE PHYSICIAN Facility:A Start: 04-21-2023 End: 04-21-2023 Patient encounter procedure LONI Herron CAMILO EMPLOYMENT COUNSELOR-RADIOLOGY EQUIPMENT SERVICER [facility] Start: 10-06-2022 End: 10-06-2022 ambulatory LAVON DOWD Facility:[facility] Start: 10-06-2022 End: 10-06-2022 Patient encounter procedure Rosa Maria Hewitt PA-C Work Phone: Urology Procedures Date Procedure Procedure Detail Performing Clinician Abdominal hysterectomy CHASE HENLEY CAMILO EMPLOYMENT COUNSELOR-RADIOLOGY EQUIPMENT SERVICER Closed fracture of c ervical spine (disorder) DR MAGDY ROE MD Plan of Treatment Date Care Activity Detail Author Start: 02-12-2023 [facility] Start: 06-14-2022 DEPRESSION ASSESSMENT DEPRESSION ASSESSMENT [facility] Start: 2019 COLOGUARD (FIT-DNA) COLOGUARD (FIT-DNA) [facility] Start: 2019 Colonoscopy COLONOSCOPY [facility] Start: 2019 COLORECTAL CANCER SCREENING COLORECTAL CANCER SCREENING [facility] Start: [address] COLONOGRAPHY [facility] Start: 2019 DIABETES SCREEN DIABETES SCREEN [facility] Start: 2019 FECAL OCCULT BLOOD FECAL OCCULT BLOOD [facility] Start: 2019 LIPID SCREEN LIPID SCREEN [facility] Start: 2019 SIGMOIDOSCOPY SIGMOIDOSCOPY [facility] Start: 2014 Mammography MAMMOGRAM [facility] Start: 01-11-2004 HPV TESTING HPV TESTING [facility] Start: 1995 PAP TESTING PAP TESTING [facility] Start: 1993 Urine microalbumin profile DTAP,TDAP,TD (1 - Tdap) [facility] Start: 01-11-1992 HEPATITIS C SCREENING HEPATITIS C SCREENING [facility] Start: 01-11-1992 HIV SCREENING HIV SCREENING [facility] Start: 1974 HEPATITIS B (1 of 3 - 3-dose series) HEPATITIS B (1 of 3 - 3-dose series) [facility] End: 11-05-2023 US KIDNEY/BLADDER US KIDNEY/BLADDER Radiology Routine Bladder stones 1 Occurrences starting 10/06/2022 until 11/05/2023 [facility] Work Phone: Payers Date Payer Category Payer Medicare [facility] MED[facility] ADVANTAGE PPO [id number] 2022-Present [phone] [address] [address] [place] [address] PPO [id number] 2022 Medicare [id number] 2014 Medicaid [employer] [facility] [employer] [id number] 2014-Present [phone] [address] [place] [address] Medicaid [id number] 2014 Medicaid [id number] 1974 Unknown [id number] 1974 Unknown [id number] Social History Date Type Detail Facility Start: 04-03-2019 End: 04-05-2019 Never smoked tobacco (finding) [facility] Sex Assigned At Female [facility] Start: 04-05-2019 Tobacco use and exposure Smokeless tobacco non-user [facility] Start: 10-06-2022 Alcohol intake Current non-dr electrotype molder of alcohol (finding) [facility] Start: 1975 Sex Assigned At Not on file [facility] Clinical Notes 01-15-2021 to 07-01-2023 Rosa Maria Hewitt PA-C - 10/06/2022 7:02 PM EDTLaboratoryRadiologyLaboratoryRadiologyLaboratoryRadiologyRadiology Note [...] Sign Date: 07/01/2023 1:15:25 PM Ordering Provider: LONI SAXENAHMAN [facility] 10-06-2022 Note HNO ID: [id number] Author: Rosa Maria Hewitt PA-C Service: ? Author Type: Physician Hot Molder Type: Progress Notes Filed: 10/06/2022 7:08 PM Note Text: [facility] NEW PATIENT CLINIC NOTE SERVICE DATE: [...] of unsp part (more content not included)... [facility] 10-06-2022 History of Present illness Narrative Images from the original note were not included. [facility] NEW PATIENT CLINIC NOTE SERVICE DATE: [...] [place], [place], GUILHERME documented in this encounter [facility] 07-28-2021 Hospital Discharge instructions Patient Education 07/28/2021 17:04:30 1-[facility] Discharge Instructions Template (03/2018)(CUSTOM) JUAN JOSE [...] and written post operative instructions from Dr Roe.__ BATHING/SHOWERING: ___ Sponge bathe until office visit. [...] us better serve our patients. Form: 1522 ([id number]) R: 09/20 Follow Up Care 05/19/2021 14:15:41 With:MAGDY ROE MD, [facility], Urology Service Address: [phone] When: Unknown Comments:Follow-up as scheduled [facility] 01-15-2021 Evaluation + Plan note Future Appointments Future Scheduled TestsBasic Metabolic Panel 01/15/21Basic Metabolic Panel 04/30/21Urine Culture 04/30/21Complete Blood Count 04/30/21XR Abdomen AP 01/15/21 [facility] 01-15-2021 Evaluation + Plan note Future Scheduled TestsBasic Metabolic Panel 01/15/21Basic Metabolic Panel 04/30/21Urine Culture 04/30/21Complete Blood Count 04/30/21XR Abdomen AP 01/15/21XR Abdomen AP 09/08/21 [facility] Evaluation + Plan note Future Appointments Appointment Date:04/30/2021 01:40:00 PM Scheduled Provider:LONI PAGE Location:[facility] Appointment Type:[facility] Future Scheduled TestsBasic Metabolic Panel 01/15/21XR Abdomen AP 01/15/21 [facility] Evaluation + Plan note Future Appointments Appointment Date:06/21/2023 02:40:00 PM Scheduled Provider:LONI PAGE Location:UROLOGY Appointment Type:URO OV Future Scheduled TestsCT Abdomen and Pelvis w/o contrast 04/21/23 [facility] Narrative No data available for this section [facility] Hospital Discharge instructions No data available for this section [facility] Progress note No data available for this section [facility] Reason for referral (narrative)* Diagnostic Procedure Only (Routine) - Authorized Specialty Diagnoses / Procedures Referred By Contac t Referred To Contact US IMAGING Diagnoses Bladder stones Procedures US KIDNEY/BLADDER US RETROPERITONEAL REAL TIME W/IMAGE COMPLETE Rosa Maria Hewitt PA-C [address] [place] [address] [facility] Referral ID Status Reason Start Date Expiration Date Visits Requested Visits Authorized [id number] Authorized Auto-Generat ed Referral 10/06/2022 11/05/2023 1 1 [facility] Summary Purpose Family History No Family History Records Found No data available for this section No data available for this section No Family History Records Found Advance Directives No Advanced Directives Records FoundNo Advanced Directives Records Found Additional Source Comments Source Comments (unrecognize d section and content) In the event this informatio n is protected by the Federal Confidentiality of Alcohol and Drug Abuse Patient Records regulations: The Federal rules restrict any use of the information to criminally investigate or prosecute any alcohol or drug abuse patient.[facility] Reason for Visit (unrecogniz ed section and content) Care Teams (unrecognized sec tion and content) INFORMATION SOURCE (unrecogn ized section and content) DATE CREATED AUTHOR AUTHOR'S ORGANIZ ATION 07/02/2023 [facility] ([place] FOR RECORDS PERTAINING TO PATIENTS WHO ARE [...] BE BASED ON THE PRIMARY CLINICAL RECORDS. [facility] [employer] [facility]. provides no warranty or guarantee of the accuracy or completeness of information in this document.
[2023-07-03] MEDS: Linezolid 600 MG 600 MG/300 ML BAG 200 MG IV ×3 (00:08→21:06)
[2023-07-03] MEDS: 0.9% Normal Saline (1000mL) 1,000 ML 999 ML IV ×2 (00:10→01:46)
--- OUTSIDE RECORDS SUMMARY | 2023-07-03 00:55 | XMS RPT_ITS | CCD ---
Author Name Unknown Address [address] [place] [address] Organization [facility] Care Team Providers Care Marketing Designer Name Role Phone PHYSICIAN, PATIENT UNSURE Primary Care Physician Unavailable Patricia Guo Unavailable Lavon Dowd MD Unavailable Lavon Dowd MD Primary Care Provider LAVON DOWD Referring Unavailable LAVON DOWD Primary Care Unavailable ROSA MARIA HEWITT Attending Unavailable PHYSICIAN, PATIENT UNSURE Primary Care LONI Melissa Attending Unav ailable PHYSICIAN, PATIENT UNSURE Primary Care LONI Melissa Attending Dylan ailable Allergies Allergy Classification Reported Allergen(s) Allergy Type Date of Onset Reaction(s) Facility (5 sources) Coconut extract; Translations: [Cocos nucifera (organism)] Drug Allergy RASH, CLOSES OFF AIRWAY [facility] (4 sources) Morphine; Translations: [morphine] Drug Allergy [address] [facility] (3 sources) Amoxicillin; Translations: [amoxicillin] Drug Allergy [facility] (3 sources) Penicillin; Translations: [penicillin] Drug Allergy [facility] (2 sources) apixaban; Translations: [APIXABAN] Drug Allergy 5 Unknown [facility] (2 sources) Mometasone; Translations: [MOMETASONE] Drug Allergy 9 Unknown [facility] Work Phone: (2 sources) Nitrofurantoin; Translations: [NITROFURANTOIN] Drug Allergy 9 Unknown [facility] Work Phone: (2 sources) Sulfonamides (Antibiotic); Translations: [SULFA (SULFONAMIDE ANTIBIOTICS)] Propensity to adverse reactions to drug 9 Unknown [facility] Work Phone: Medications Current Medications Medication Drug [...] 11:29-0400 Body height 160 cm Rosa Maria [employer] Work Phone: [facility] 10-06-2022 11:290400 Body temperature 97 [degF] Rosa Maria [employer] Work Phone: [facility] 10-06-2022 11:29-0400 Body weight 104.33 kg Rosa Maria Hewitt PA-C Work Phone: [facility] 10-06-2022 11:29-0400 Diastolic blood pressure 70 mm[Hg] Rosa Maria Hewitt PA-C Work Phone: [facility] 10-06-2022 11:29-0400 Heart rate 86 /min Rosa Maria Hewitt PA-C Work Phone: [facility] 10-06-2022 11:29-0400 Respiratory rate 16 /min Rosa Maria Hewitt PA-C Work Phone: [facility] 10-06-2022 11:29-0400 SaO2% (BldA) [Mass fraction] 100 % Rosa Maria Hewitt PA-C Work Phone: [facility] 10-06-2022 11:29-0400 Systolic blood pressure 110 mm[Hg] Rosa Maria Hewitt PA-C Work Phone: [facility] 07-28-2021 17:53-0500 Body temperature 97.34 [degF] DR MAGDY ROE MD [facility] 07-28-2021 17:53-0500 Diastolic blood pressure 90 mm[Hg] DR MAGDY ROE MD [facility] 07-28-2021 17:53-0500 Heart rate 85 /min DR MAGDY ROE MD [facility] 07-28-2021 17:53-0500 Mean blood pressure 109 mm[Hg] DR MAGDY ROE MD [facility] 07-28-2021 17:53-0500 Reason For Taking VItal Signs DR MAGDY ROE MD [facility] 07-28-2021 17:53-0500 Respiratory rate 16 /min DR MAGDY ROE MD [facility] 07-28-2021 17:53-0500 Systolic blood pressure 146 mm[Hg] DR MAGDY ROE MD [facility] 07-28-2021 16:09-0500 Body temperature 97.16 [degF] DR MAGDY ROE MD [facility] 07-28-2021 16:09-0500 Diastolic blood pressure 91 mm[Hg] DR MAGDY ROE MD [facility] 07-28-2021 16:09-0500 Heart rate 81 /min DR MAGDY ROE MD [facility] 07-28-2021 16:09-0500 Mean blood pressure 110 mm[Hg] DR MAGDY ROE MD [facility] 07-28-2021 16:09-0500 Reason For Taking VItal Signs DR MAGDY ROE MD [facility] 07-28-2021 16:09-0500 Respiratory rate 16 /min DR MAGDY ROE MD [facility] 07-28-2021 16:09-0500 Systolic blood pressure 148 mm[Hg] DR MAGDY ROE MD [facility] 07-28-2021 15:56-0500 Body temperature 98.06 [degF] DR MAGDY ROE MD [facility] 07-28-2021 15:56-0500 Diastolic Blood Pressure NBP [address] MAGDY ROE MD [facility] 07-28-2021 15:56-0500 Heart rate 85 /min DR MAGDY ROE MD [facility] 07-28-2021 15:56-0500 Mean blood pressure 101 mm[Hg] DR MAGDY ROE MD [facility] 07-28-2021 15:56-0500 Respiratory rate 16 /min DR MAGDY ROE MD [facility] 07-28-2021 15:56-0500 Systolic Blood Pressure NBP [address] MAGDY ROE MD [facility] 07-28-2021 15:40-0500 Diastolic Blood Pressure NBP [address] MAGDY ROE MD [facility] 07-28-2021 15:40-0500 Heart rate 87 /min DR MAGDY ROE MD [facility] 07-28-2021 15:40-0500 Mean blood pressure 108 mm[Hg] DR MAGDY ROE MD [facility] 07-28-2021 15:40-0500 Systolic Blood Pressure NBP [address] MAGDY ROE MD [facility] 07-28-2021 15:24-0500 Diastolic Blood Pressure NBP [address] MAGDY ROE MD [facility] 07-28-2021 15:24-0500 Heart rate 91 /min DR MAGDY ROE MD [facility] 07-28-2021 15:24-0500 Mean blood pressure 103 mm[Hg] DR MAGDY ROE MD [facility] 07-28-2021 15:24-0500 Systolic Blood Pressure NBP [address] MAGDY ROE MD [facility] 07-28-2021 10:28-0500 Body height [address] MAGDY ROE MD [facility] 07-28-2021 10:28-0500 Diastolic blood pressure 93 mm[Hg] DR MAGDY ROE MD [facility] 07-28-2021 10:28-0500 Heart rate 79 /min DR MAGDY ROE MD [facility] 07-28-2021 10:28-0500 Mean blood pressure 113 mm[Hg] DR MAGDY ROE MD [facility] 07-28-2021 10:28-0500 Systolic blood pressure 153 mm[Hg] DR MAGDY ROE MD [facility] 07-28-2021 10:23-0500 Body weight 100.[address] MAGDY ROE MD [facility] Encounters Encounter Date Encounter Type Care Provider Facility Start: 07-01-2023 End: 07-02-2023 ambulatory PATIENT UNSURE PHYSICIAN Facility:B Start: 07-01-2023 End: 07-01-2023 Patient encounter procedure LONI PAGE COMPUTER DISCOVERY TEACHER-CAR RENTAL SALES ASSISTANT [facility] Start: 04-21-2023 End: 04-22-2023 ambulatory PATIENT UNSURE PHYSICIAN Facility:A Start: 04-21-2023 End: 04-21-2023 Patient encounter procedure LONI Herron CAMILO COMPUTER DISCOVERY TEACHER-CAR RENTAL SALES ASSISTANT [facility] Start: 10-06-2022 End: 10-06-2022 ambulatory LAVON DOWD Facility:[facility] Start: 10-06-2022 End: 10-06-2022 Patient encounter procedure Rosa Maria Hewitt PA-C Work Phone: Urology Procedures Date Procedure Procedure Detail Performing Clinician Abdominal hysterectomy CHASE HENLEY CAMILO COMPUTER DISCOVERY TEACHER-CAR RENTAL SALES ASSISTANT Closed fracture of c ervical spine (disorder) DR MAGDY ROE MD Plan of Treatment Date Care Activity Detail Author Start: 02-12-2023 [facility] Start: 06-14-2022 DEPRESSION ASSESSMENT DEPRESSION ASSESSMENT [facility] Start: 2019 COLOGUARD (FIT-DNA) COLOGUARD (FIT-DNA) [facility] Start: 2019 Colonoscopy COLONOSCOPY [facility] Start: 2019 COLORECTAL CANCER SCREENING COLORECTAL CANCER SCREENING [facility] Start: [address] COLONOGRAPHY [facility] Start: 2019 DIABETES SCREEN DIABETES SCREEN [facility] Start: 2019 FECAL OCCULT BLOOD FECAL OCCULT BLOOD [facility] Start: 2019 LIPID SCREEN LIPID SCREEN [facility] Start: 2019 SIGMOIDOSCOPY SIGMOIDOSCOPY [facility] Start: 2014 Mammography MAMMOGRAM [facility] Start: 01-11-2004 HPV TESTING HPV TESTING [facility] Start: 1995 PAP TESTING PAP TESTING [facility] Start: 1993 Urine microalbumin profile DTAP,TDAP,TD (1 - Tdap) [facility] Start: 01-11-1992 HEPATITIS C SCREENING HEPATITIS C SCREENING [facility] Start: 01-11-1992 HIV SCREENING HIV SCREENING [facility] Start: 1974 HEPATITIS B (1 of 3 - 3-dose series) HEPATITIS B (1 of 3 - 3-dose series) [facility] End: 11-05-2023 US KIDNEY/BLADDER US KIDNEY/BLADDER Radiology Routine Bladder stones 1 Occurrences starting 10/06/2022 until 11/05/2023 [facility] Work Phone: Payers Date Payer Category Payer Medicare [facility] MEDICARE [facility] MEDICARE ADVANTAGE PPO [id number] 2022-Present [phone] [address] [address] [place] [address] PPO [id number] 2022 Medicare [id number] 2014 Medicaid [employer] [facility] [employer] [id number] 2014-Present [phone] [address] [place] [address] Medicaid [id number] 2014 Medicaid [id number] 1975 Unknown [id number] 1974 Unknown [id number] Social History Date Type Detail Facility Start: 04-03-2019 End: 04-05-2019 Never smoked tobacco (finding) [facility] Sex Assigned At Female [facility] Start: 04-05-2019 Tobacco use and exposure Smokeless tobacco non-user [facility] Start: 10-06-2022 Alcohol intake Current non-dr engineering team supervisor of alcohol (finding) [facility] Start: 1975 Sex Assigned At Not on file [facility] Clinical Notes 01-15-2021 to 07-01-2023 Rosa Maria [...] 07/01/2023 1:15:25 PM Ordering Provider: LONI SAXENAHMAN [facility] 10-06-2022 Note HNO ID: [id number] Author: Rosa Maria Hewitt PA-C Service: ? Author Type: Physician Multigraph Operator Type: Progress Notes Filed: 10/06/2022 7:08 PM Note Text: [facility] [place] [facility] NEW PATIENT CLINIC NOTE SERVICE DATE: 10/06/2022 [...] of unsp part (more content not included)... [facility] 10-06-2022 History of Present illness Narrative Images from the original note were not included. [facility] [place] [facility] NEW PATIENT CLINIC NOTE SERVICE DATE: 10/06/2022 [...] [place], [place], GUILHERME documented in this encounter [facility] 07-28-2021 Hospital Discharge instructions Patient Education 07/28/2021 17:04:30 1-[facility] Discharge Instructions Template (03/2018)(CUSTOM) JUAN JOSE SAME [...] us better serve our patients. Form: 1522 (71001) R: 09/20 Follow Up Care 05/19/2021 14:15:41 With:MAGDY ROE MD, [facility], Urology Service Address: [phone] When: Unknown Comments:Follow-up as scheduled [facility] 01-15-2021 Evaluation + Plan note Future Appointments Future Scheduled TestsBasic Metabolic Panel 01/15/21Basic Metabolic Panel 04/30/21Urine Culture 04/30/21Complete Blood Count 04/30/21XR Abdomen AP 01/15/21 [facility] 01-15-2021 Evaluation + Plan note Future Scheduled TestsBasic Metabolic Panel 01/15/21Basic Metabolic Panel 04/30/21Urine Culture 04/30/21Complete Blood Count 04/30/21XR Abdomen AP 01/15/21XR Abdomen AP 09/08/21 [facility] Evaluation + Plan note Future Appointments Appointment Date:04/30/2021 01:40:00 PM Scheduled Provider:LONI PAGE Location:[facility] Appointment Type:[facility] Future Scheduled TestsBasic Metabolic Panel 01/15/21XR Abdomen AP 01/15/[address] [facility] Evaluation + Plan note Future Appointments Appointment Date:06/21/2023 02:40:00 PM Scheduled Provider:LONI PAGE Location:UROLOGY Appointment Type:URO OV Future Scheduled TestsCT Abdomen and Pelvis w/o contrast 04/21/23 [facility] Narrative No data available for this section [facility] Hospital Discharge instructions No data available for this section [facility] Progress note No data available for this section [facility] Reason for referral (narrative)* Diagnostic Procedure Only (Routine) - Authorized Specialty Diagnoses / Procedures Referred By Contac t Referred To Contact US IMAGING Diagnoses Bladder stones Procedures US KIDNEY/BLADDER US RETROPERITONEAL REAL TIME W/IMAGE COMPLETE Rosa Maria Hewitt PA-C [address] [place] [address] Us Imaging Referral ID Status Reason Start Date Expiration Date Visits Requested Visits Authorized [id number] Authorized Auto-Generat ed Referral 10/06/2022 11/05/2023 1 1 [facility] Summary Purpose Family History No Family History [...] or prosecute any alcohol or drug abuse patient.[facility] Reason for Visit (unrecogniz ed section and content) Care Teams (unrecognized sec tion and content) INFORMATION SOURCE (unrecogn ized section and content) DATE CREATED AUTHOR AUTHOR'S ORGANIZ ATION 07/02/2023 [facility] ([place]) FOR RECORDS PERTAINING TO PATIENTS [...] BE BASED ON THE PRIMARY CLINICAL RECORDS. [facility] [employer] [facility]. provides no warranty or guarantee of the accuracy or completeness of information in this document.
[2023-07-03] MEDS: hydrALAZINE 20 MG/ML Vial 10 MG IV ×2 (02:16→22:13)
[2023-07-03] MEDS: levETIRAcetam IV 1,000 MG/100 ML BAG 400 MG IV ×3 (02:16→21:05)
[2023-07-03] MEDS: 0.9% Saline Lock 10 ML Syringe IV ×2 (02:16→20:00)
[2023-07-03 02:55] LABS: Reflex Lactate? Y
[2023-07-03 03:26] LABS: Blood Gas Specimen Type VEN; O2 Delivery Device Not entered; SITE Not entered; VBG BASE EXCESS -1 mmol/L (-1.0-3.5); VBG Bicarbonate 23 mmol/L (22-26); VBG PO2 90 mmHg (25-40); VBG SO2 98 % (50-70); VBG TCO2 24 mmol/L (23-33); VBG pCO2 29.7 mmHg (41-51); VBG pH 7.49 (7.32-7.42)
[2023-07-03 03:35] LABS: Lactic Acid 1.2 mmol/L (0.4-1.9)
[2023-07-03] MEDS: Piperacil/Tazobactam 3.375 GM in 0.9% Normal Saline (50mL MB+) 50 ML IV ×3 (05:17→22:14)
--- NOTE | 2023-07-03 06:05 | EX.PCM.CONCC ---
Assessment & Plan Assessment/Plan (1) Sepsis: PLAN: Plan RECOMMENDATIONS: 1. Continue broad-spectrum antimicrobials as ordered. 2. Wean supplemental oxygen to maintain saturations at or above 90%. 3. Initiate seizure precautions. 4. Continue Keppra, pending evaluation by neurology. EEG is pending. 5. Check TSH and arterial blood gas. 6. Withhold sedating medications if feasible. IMPRESSIONS: 1. Sepsis The patient presented to the hospital with sepsis due to probable urinary tract source of infection with acute sepsis related organ dysfunction as evidenced by altered mental status and lactic acidemia. She did receive supplemental IV fluid hydration and remains hemodynamically stable at the present time. There is no need for vasopressor support. Plan to continue broad-spectrum antimicrobials. On account of the patient's history of multidrug-resistant organisms, will obtain infectious diseases consultation. 2. Encephalopathy Clinical concern for underlying sepsis as precipitating etiology. However, there was some concern documented in the emergency department about potential seizure activity. The patient does not have any pre-existing epilepsy diagnosis. She was treated with IV Ativan and started on Keppra. This will be continued, pending neurology evaluation and EEG. Recommend checking TSH and obtain arterial blood gas. 3. History of pressure ulcer with osteomyelitis/hypothyroidism/history of DVT/depression/anxiety/chronic pain syndrome Complicates care, management, recovery and prognosis. Attempt to minimize sedating medications as feasible. Check TSH level. Remainder of supportive care as noted above. This note was generated with [employer] dictation software. It may contain incorrect words, spelling, and punctuation that were not noted in checking the note before signing. HPI Consult Data Date of Consult: 07/04/23 HPI Narrative Reason for Consultation: Sepsis HPI Narrative: The patient is a 48-year-old female, with a history as outlined below, who presented to the emergency department on July 02 with altered mental status. The patient currently resides at a local [facility] facility. She has a history of morbid obesity, hypothyroidism, baseline quadriplegia, neurogenic bladder with suprapubic catheter and frequent UTIs, history of VRE, Esumv-Kvargrjyk-Bnpaa syndrome, chronic pain syndrome and chronic wounds. History pertinent to the patient's hospitalization was obtained primarily via chart review, as the patient is not able to provide any additional history. On presentation to the emergency department, the patient was documented to be afebrile and maintaining appropriate oxygen saturations on room air. Initial laboratory evaluation revealed a white blood cell count of 17,000. Coagulation profile was normal. Chemistry profile was unremarkable, with the exception of a lactate of 5.7. Urine analysis was positive for nitrites and leukocyte esterase. 3+ urine bacteria was noted. CT head was unremarkable. Chest x-ray demonstrated cardiomegaly along with bibasilar atelectasis. The patient received supplemental IV fluid hydration and was initiated on antimicrobials. There was apparent concern for potential seizures in the emergency department, which was medically managed with IV Ativan. The patient was also started on Keppra. She was admitted to the medical intensive care unit for further management. EEG and neurology consultations are pending. She is hemodynamically stable at the present time. Her lactic acidemia has resolved. [facility] Medical History Abnormal EKG Chronic headaches Chronic pain Cocaine abuse Deep vein thrombosis of right lower extremity Depression Exogenous obesity Heroin use History of Nkrun-Uifmmqjkx-Qthyy (WPW) syndrome Hx: UTI (urinary tract infection) Hypothyroidism Left femoral shaft fracture Malnutrition of mild degree Neuromuscular dysfunction of bladder Paraplegia Pre-operative cardiovascular exam, new EKG abnormalities c/w ischemia Quadriparesis Right ischial pressure sore, stage 4 Spinal cord injury (2010) Suprapubic catheter Home Medications levothyroxine 75 mcg tablet 75 mcg PO DAILY hypothyroidism 05/28/15 [History Last Taken 04/22/21] duloxetine 60 mg capsule,delayed release 90 mg PO QHS depression 08/21/15 [History Last Taken 04/21/21] baclofen 10 mg tablet 40 mg PO Q6H SPASMS 08/16/16 [History Last Taken 04/22/21] acetaminophen 325 mg tablet 650 mg PO Q4H PRN PRN Pain or fever 03/01/18 [History Last Taken 04/21/21] bisacodyl 10 mg rectal suppository 10 mg SC QHS PRN Constipation 03/01/18 [History Last Taken 04/21/21] omeprazole 20 mg capsule,delayed release 20 mg PO LUNCH GERD 03/01/18 [History Last Taken 04/22/21] furosemide 40 mg tablet 40 mg PO BREAKFAST edema 05/26/18 [History Last Taken 04/22/21] sennosides 8.6 mg tablet 17.2 mg PO BID constipation 08/16/18 [History Last Taken 04/22/21] cholecalciferol (vitamin D3) 50 mcg (2,000 unit) capsule 2,000 unit PO LUNCH SUPPLEMENT 08/08/19 [History Last Taken 04/22/21] polyethylene glycol 3350 17 gram oral powder packet 17 gm PO QHS constipation 08/08/19 [History Last Taken 04/21/21] docusate sodium 100 mg capsule (Colace) 200 mg PO BID constipation 10/11/20 [History Last Taken 04/21/21] furosemide 20 mg tablet 20 mg PO LUNCH edema 04/21/21 [History Last Taken 04/22/21] gabapentin 800 mg tablet 1,600 mg PO TID NEUROPATHY 04/22/21 [History Last Taken 04/22/21] isosorbide mononitrate 30 mg tablet,extended release 24 hr 30 mg PO QHS angina 04/22/21 [History Last Taken 04/21/21] oxybutynin chloride 10 mg tablet,extended release 24 hr 30 mg PO DAILY Bladder spasms 04/22/21 [History Last Taken 04/22/21] potassium chloride 10 mEq capsule,extended release 10 meq PO LUNCH hypokalemia 04/22/21 [History Last Taken 04/22/21] phenazopyridine 200 mg tablet (Pyridium) 200 mg PO TID PRN Bladder Spasms 05/27/21 [History Last Taken Unknown] loperamide 2 mg tablet 1 mg PO Q4H PRN Diarrhea 06/03/22 [History Last Taken Unknown] magnesium hydroxide 400 mg/5 mL oral suspension (Milk of Magnesia) 30 ml PO DAILY PRN Constipation 06/03/22 [History Last Taken Unknown] melatonin 5 mg tablet 5 mg PO QHS insomnia 06/03/22 [History Last Taken Unknown] mirtazapine 30 mg tablet 15 mg PO QHS insomnia 06/03/22 [History Last Taken Unknown] ondansetron HCl 4 mg tablet 4 mg PO Q4H PRN Nausea 06/03/22 [History Last Taken Unknown] simethicone 80 mg tablet 80 mg PO DAILY PRN Gastric Reflux 06/03/22 [History Last Taken Unknown] buprenorphine 15 mcg/hour weekly transdermal patch (Butrans) 20 mcg transdermal Q7D pain 09/12/22 [History Last Taken 07/01/23] cetirizine 10 mg tablet 10 mg PO QPM allergies 09/12/22 [History Last Taken Unknown] linezolid 600 mg tablet 600 mg PO BID 7 days #14 tabs 11/16/22 [Rx Last Taken Unknown] nystatin 100,000 unit/gram topical powder (Nyamyc) 1 applic topical BID #15 grams 11/16/22 [Rx Last Taken Unknown] benzonatate 100 mg capsule 100 mg PO Q6H PRN 07/02/23 [History Last Taken Unknown] buspirone 10 mg tablet 10 mg PO BID 07/02/23 [History Last Taken Unknown] cetirizine 10 mg capsule (All Day Allergy (cetirizine)) 10 mg PO DAILY PRN allergies 07/02/23 [History Last Taken Unknown] diphenhydramine HCl 25 mg tablet (Allergy (diphenhydramine)) 50 mg PO Q8H PRN itching 07/02/23 [History Last Taken Unknown] fosfomycin tromethamine 3 gram oral packet 3 g PO X1 07/02/23 [History Last Taken Unknown] ibuprofen 200 mg tablet (Advil) 400 mg PO Q6H 07/02/23 [History Last Taken Unknown] linaclotide 145 mcg capsule (Linzess) 145 mcg PO LUNCH constipation 07/02/23 [History Last Taken Unknown] mirabegron 25 mg tablet,extended release 24 hr (Myrbetriq) 25 mg PO LUNCH 07/02/23 [History Last Taken Unknown] paroxetine HCl 10 mg tablet 20 mg PO QHS 07/02/23 [History Last Taken Unknown] trazodone 50 mg tablet 50 mg PO QHS 07/02/23 [History Last Taken Unknown] Allergy/AdvReac Type Severity Reaction Status Date / Time apixaban [From Eliquis] Allergy Rash Verified 07/02/23 22:41 coconut oil Allergy cant breath Verified 07/02/23 22:41 mometasone furoate Allergy Rash Verified 07/02/23 22:41 [From Elocon] nitrofurantoin Allergy Unknown Verified 07/02/23 22:41 rivaroxaban [From Xarelto] Allergy Rash Verified 07/02/23 22:41 Sulfa (Sulfonamide Allergy Shortness Verified 07/02/23 22:41 Antibiotics) of breath Penicillins AdvReac NEEDS Verified 07/02/23 22:41 FOLLOW-UP Family History Mother Diabetes Grandfather CAD (coronary artery disease) Colon cancer Grandmother Breast cancer Aunt Ovarian cancer Surgical History History of tracheostomy (2010) Social History Smoking Status: Never smoker ROS Review of Systems ROS Unobtainable: due to mental status Physical Exam Const Constitutional Narrative: The patient is alert but not currently responsive or interactive in any meaningful manner. She repeatedly snorts but will not answer questions. HEENT normocephalic and head/scalp atraumatic Eyes PERRL, EOMs intact bilaterally and conjunctivae normal Neck supple General: trachea midline Chest inspection of chest normal Resp normal respiratory effort Auscultation: diminished lung sounds; Negative for rales, rhonchi or wheezes Cardio S1 normal heart sound and S2 normal heart sound Rate: tachycardic GI normal to inspection, nondistended, normoactive bowel sounds GI Narrative: Suprapubic catheter present Extremity no clubbing, cyanosis or edema Skin no rashes or lesions noted Psych Mood & Affect: flat affect Lab / Micro Data 07/04/23 04:40 07/04/23 04:40 Labs: Laboratory Results - last 24 hr 07/02/23 22:45: WBC Cancelled, Corrected WBC Cancelled, RBC Cancelled, Hgb Cancelled, Hct Cancelled, MCV Cancelled, MCH Cancelled, MCHC Cancelled, RDW Std Deviation Cancelled, RDW Coeff of Juan Antonio Cancelled, Plt Count Cancelled, MPV Cancelled, Immature Gran % (Auto) Cancelled, Neut % (Auto) Cancelled, Lymph % (Auto) Cancelled, [place] % (Auto) Cancelled, Eos % (Auto) Cancelled, Baso % (Auto) Cancelled, Absolute Neuts (auto) Cancelled, Absolute Lymphs (auto) Cancelled, Total Counted Cancelled, Neutrophils % (Manual) Cancelled, Band Neutrophils % Cancelled, Lymphocytes % (Manual) Cancelled, Monocytes % (Manual) Cancelled, Eosinophils % (Manual) Cancelled, Basophils % (Manual) Cancelled, Metamyelocytes % Cancelled, Myelocytes % Cancelled, Promyelocytes % Cancelled, Blast Cells % Cancelled, Plasma Cell % (Manual) Cancelled, Other Cells % Cancelled, Nucleated RBC % Cancelled, Nucleated RBCs/100 WBC Cancelled, Differential Comment Cancelled, Diff Path Review Cancelled, Hypersegmented Neuts Cancelled, Atypical Lymphocytes Cancelled, Reactive Lymphocytes Cancelled, Smudge Cells Cancelled, Toxic Granulation Cancelled, Toxic Vacuolation Cancelled, Dohle Bodies Cancelled, Yvonne Rods Cancelled, Platelet Estimate Cancelled, Plt Morphology Comment Cancelled, RBC Morphology Cancelled 07/02/23 22:45: RBC Morphology Cancelled, Polychromasia Cancelled, Hypochromasia Cancelled, Poikilocytosis Cancelled, Basophilic Stippling Cancelled, Anisocytosis Cancelled, Microcytosis Cancelled, Macrocytosis Cancelled, Spherocytes Cancelled, Sickle Cells Cancelled, Target Cells Cancelled, Tear Drop Cells Cancelled, Ovalocytes Cancelled, Stomatocytes Cancelled, Sanders-Radar Base Bodies Cancelled, [place] Cells Cancelled, Bite Cells Cancelled, Crenated Cell Cancelled, Acanthocytes (Spur) Cancelled, Rouleaux Cancelled, Schistocytes Cancelled, PT Cancelled, INR Cancelled, APTT Cancelled, Sodium 139, Potassium 3.7, Chloride 101, Carbon Dioxide 27.0, Anion Gap 11, BUN 10, Creatinine 0.56, Estim Creat Clear Calc 149.60, Est GFR (MDRD) Af Amer 149, Est GFR (MDRD) Non-Af 123, BUN/Creatinine Ratio 18.0, Glucose 162 H, Lactic Acid 5.7 H*, Calcium 9.6, Total Bilirubin 0.50, AST 25, ALT 40, Alkaline Phosphatase 96, Total Creatine Kinase 137, Troponin I High Sens 35, Total Protein 9.2 H, Albumin 3.6, Globulin 5.6 H, Albumin/Globulin Ratio 0.6 L 07/02/23 23:10: Urine Color Yellow, Urine Clarity Turbid, Urine pH 7.0, Ur Specific [place] 1.010, Urine Protein 500 H, Urine Glucose (UA) Normal, Urine Ketones 150 A*, Urine Occult Blood 250 H, Urine Nitrite Positive H, Urine Bilirubin 1 H, Urine Urobilinogen 1 H, Ur Leukocyte Esterase 500 H, Urine RBC 10-25 SEEN, Urine WBC 50-100 SEEN, Ur Squamous Epith Cells 0-5 SEEN, Ur Transition Epith Cell 0-5 SEEN, Amorphous Sediment 1+, Urine Bacteria 3+, Urine Mucus 0 SEEN 07/02/23 23:15: WBC 17.1 H, RBC 4.65, Hgb 11.9 L, Hct 38.5, MCV 82.8, MCH 25.6 L, MCHC 30.9 L, RDW Std Deviation 47.5 H, RDW Coeff of Juan Antonio 15.8 H, Plt Count 408, MPV 9.3, Immature Gran % (Auto) 0.500, Neut % (Auto) 86.2 H, Lymph % (Auto) 8.7 L, [place] % (Auto) 4.0, Eos % (Auto) 0.3, Baso % (Auto) 0.3, Absolute Neuts (auto) 14.7 H, Absolute Lymphs (auto) 1.49, Nucleated RBC % 0, PT 14.2, INR 1.1, APTT 29.3 07/03/23 03:04: Lactic Acid 1.2 Micro: Microbiology 07/02/23 22:55 Mucosa - Nose SARS-CoV-2, Influenza & RSV (PCR) - Final ABG Data ABG results: ABG 07/03/23 03:21 Specimen Type BHUPINDER Sample Site Not entered O2 % 2.0 VBG pH 7.49 H VBG pO2 90 H VBG HCO3 23 VBG Total CO2 24 VBG O2 Sat (Calc) 98 H VBG Base Excess -1 POC Mix VBG pCO2 Pt Tmp 29.7 L O2 Delivery Device Not entered Imagaing Radiology Impression Chest X-Ray 07/02/23 22:30 IMPRESSION: Poor inspiration with some bibasilar atelectasis. Cardiomegaly. Electronically Signed: Yuri Cerna MD at 23:56 EST , Brain CT 07/02/23 23:25 IMPRESSION: Normal unenhanced CT scan of the brain. Acute left sphenoid sinusitis Electronically Signed: Yuri Cerna MD at 23:45 EST , Charges/Coding Visit Charges Inpatient E&M: 06658 Init Hosp L3
[2023-07-03 07:11] LABS: Allen Test Positive; Base Excess 1 mmol/L (-2 to +2); Bicarbonate 24.3 mmol/L (22-26); Blood Gas Specimen Type ART; Mode Not entered; O2 Delivery Device Room Air; PO2 54 mmHG (75-100); SITE R Radial; SO2 90 % (95-99); Total Carbon Dioxide 25 mmol/L; pCO2 33.5 mmHg (35-45); pH 7.47 (7.35-7.45)
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
[2023-07-03 07:28] LABS: Thyroid Stim Hormone (TSH) 1.86 uIU/mL (0.358-3.74)
[2023-07-03 09:37] LABS: Hematocrit 33.2 % (37-47); Hemoglobin 10.1 g/dL (12.0-15.0); Mean Corp Hgb Conc 30.4 g/dL (32-36); Mean Corpuscular Hgb 25.8 pg (27.0-32.0); Mean Corpuscular Volume 84.9 fL (81-99); Mean Platelet Vol. 9.4 fl (6.2-12.0); POSITIVE DIFFERENTIAL YES; POSITIVE MORPHOLOGY YES; Platelet Count 336 K/mm3 (150-450); RBC Distribution Width CV 15.9 % (11.6-14.6); RBC Distribution Width SD 49.2 fl (35.1-43.9); Red Blood Count 3.91 M/mm3 (4.2-5.4); White Blood Count 14.8 K/mm3 (4.4-11.0)
[2023-07-03 09:58] LABS: Anion Gap 6 (5-15); BUN 7 mg/dL (7-18); BUN/Creat Ratio 23.7 RATIO (10-20); Calcium,Total 7.8 mg/dL (8.5-10.1); Chloride 110 mmol/L (98-107); EST Glomerular Filtration Rate 256 mL/min (>60); Est Glom Filt Rate - Afr Amer 309 mL/min (>60); Glucose 188 mg/dL (74-106); Potassium 3.3 mmol/L (3.5-5.1); Sodium Level 140 mmol/L (136-145)
[2023-07-03 09:59] LABS: Differential Indicated MANUAL DIFF
[2023-07-03 10:01] LABS: Lymphocyte 13 % (19-41); Monocyte 4 % (0-10); Neutrophil-Segmented 83 % (47-70); Platelet Estimate ADEQUATE (ADEQ); Red Cell Morphology NORM C+C NORMAL (NORM C&C); Total Cells Counted 100 (MANUAL DIFF)
[2023-07-03 10:02] LABS: Absolute Lymphocyte Count 1.92 X10^3/uL (0.83-4.51); Absolute Neutrophil Count 12.3 X10^3/uL (2.0-7.7)
[2023-07-03] MEDS: Miconazole Nitrate 43 GM Bottle 1 APPLIC TOPICAL ×2 (10:48→21:08)
[2023-07-03] MEDS: Enoxaparin 40 MG/0.4 ML Syringe SC ×2 (10:48→21:08)
[2023-07-03] MEDS: Potassium Chloride 10mEq/100mL 10 MEQ/100 ML IV.SOLN. 100 MEQ IV BOLUS ×2 (12:28→13:37)
--- NOTE | 2023-07-03 12:55 | NEURO.CONS ---
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 Spasms Polyethylene Glycol 17 gm 07/03/23 22:00 Polyethylene Glycol 3350 17 Gm Packet PO QHS [facility] Potassium Chloride 10 meq 07/03/23 12:00 07/03/23 11:57 Potassium Chloride Oral Tablet 10 Meq PO Not Given LUNCH [facility] Senna 1 tablet 07/03/23 10:00 07/03/23 09:40 Senna Tablet PO Not Given BID [facility] Simethicone 80 mg 07/03/23 00:50 Simethicone 80 Mg Chewable Tablet PO DAILY PRN PRN Gastric Reflux Sodium Chloride 10 - 40 ml 07/03/23 00:56 07/03/23 02:16 0.9% Saline Lock 10 Ml Syringe IV 20 ml UD PRN Administration SALINE FLUSH Tolterodine Tartrate 4 mg 07/03/23 10:00 07/03/23 09:40 Tolterodine Tartrate 4 Mg Cap.Sa PO Not Given DAILY MIRIAM Trazodone HCl 50 mg 07/03/23 22:00 Trazodone 50 Mg Tablet PO QHS MIRIAM
[2023-07-03] MEDS: Baclofen 10 MG Tablet 40 MG PO ×2 (14:20→20:00)
--- NOTE | 2023-07-03 14:24 | CASEMGMT ---
Social Work Pt is here from [facility]. SW called daughter as pt is not alert and oriented at this time. Daughter confirms plan will be for pt to return to [facility] at discharge, SNF list not needed at this time. SW sent updates to [facility] via [employer]. Pt has a bedhold and can return when medically ready. As per physician pt will be here through the weekend. SW to follow up on Wednesday. MEGHANN Swann
--- NOTE | 2023-07-03 15:23 | CASEMGMT ---
Social Work SW sent a message via [employer] requesting [facility] fax over LW/POA if they have them on file for pt. MEGHANN Swann
[2023-07-03] MEDS: busPIRone 5 MG Tablet 10 MG PO (20:00)
[2023-07-03] MEDS: SimETHICONE 80 MG Chewable Tablet PO (20:00)
[2023-07-03] MEDS: Ondansetron 4 MG/2 ML Vial IV (20:20)
[2023-07-03] MEDS: Docusate Sodium 100 MG Capsule 200 MG PO (21:08)
[2023-07-03] MEDS: Polyethylene Glycol 3350 17 GM PACKET PO (21:08)
[2023-07-03] MEDS: DULoxetine Hcl 30 MG Capsule 90 MG PO (21:08)
[2023-07-03] MEDS: Menthol/Lanolin/Calamine/Znox 113 GM Tube 1 APPLIC TOPICAL (21:14)
[2023-07-03] MEDS: Gabapentin 800 MG Tablet 1600 MG PO (22:14)
[2023-07-03] MEDS: MELATONIN 10 MG TABLET 5 MG PO (22:14)
[2023-07-04] VITALS (17 sets, daily range): BP systolic 91–176; BP diastolic 50–96; PULSE 67–102; RESP 16–28; TEMP 36.3–36.7; O2SAT 88–98; BMI 40.7
[2023-07-04] MEDS: Baclofen 10 MG Tablet 40 MG PO ×4 (00:16→18:01)
[2023-07-04 04:49] LABS: Absolute Lymphocyte Count 3.03 X10^3/uL (0.83-4.51); Absolute Neutrophil Count 5.9 X10^3/uL (2.0-7.7); Basophil# 0.04 X10^3/uL; Basophil% 0.4 % (0-1); Eosinophil# 0.11 X10^3/uL; Eosinophils% 1.1 % (0-5); Hematocrit 32.1 % (37-47); Lymphocyte # 3.03 X10^3/ul (0.83-4.51); Lymphocyte % 30.5 % (19-41); Mean Corp Hgb Conc 31.2 g/dL (32-36); Mean Corpuscular Hgb 25.7 pg (27.0-32.0); Mean Corpuscular Volume 82.5 fL (81-99); Mean Platelet Vol. 9.5 fl (6.2-12.0); Monocyte# 0.77 X10^3/uL; Monocyte% 7.8 % (0-10); NRBC Flagged by Analyzer 0 % (0-5); Neutrophil # 5.93 X10^3/uL (2.7-7.7); Neutrophil % 59.8 % (47-70); Platelet Count 325 K/mm3 (150-450); RBC Distribution Width CV 15.9 % (11.6-14.6); RBC Distribution Width SD 48.3 fl (35.1-43.9); Red Blood Count 3.89 M/mm3 (4.2-5.4); White Blood Count 9.9 K/mm3 (4.4-11.0)
[2023-07-04 05:07] LABS: ALB/GLOB Ratio 0.6 RATIO (0.9-2.4); AST(SGOT) 20 U/L (15-37); Alanine Aminotransfer ALT/SGPT 29 U/L (13-56); Albumin, Serum 2.7 g/dL (3.2-5.0); Alkaline Phosphatase 66 U/L (45-117); Anion Gap 5 (5-15); BUN 5 mg/dL (7-18); BUN/Creat Ratio 17.9 RATIO (10-20); Calcium,Total 8.2 mg/dL (8.5-10.1); Chloride 110 mmol/L (98-107); Creatinine, Serum 0.28 mg/dL (0.55-1.02); EST Glomerular Filtration Rate 273 mL/min (>60); Est Glom Filt Rate - Afr Amer 330 mL/min (>60); Estimated Creatinine Clearance 292.29 ml/min; Globulin 4.4 g/dL (2.2-4.2); Glucose 122 mg/dL (74-106); Potassium 2.8 mmol/L (3.5-5.1); Protein, Total 7.1 g/dL (6.4-8.2); Sodium Level 142 mmol/L (136-145)
--- NOTE | 2023-07-04 05:38 | PCM.PN.INT ---
Assessment & Plan Assessment/Plan (1) Sepsis: PLAN: Plan RECOMMENDATIONS: 1. Continue broad-spectrum antimicrobials as ordered. 2. Continue seizure precautions and Keppra per neurology. 3. Continue baclofen per home regimen. 4. Await results of EEG. 5. Electrolyte repletion. IMPRESSIONS: 1. Sepsis The patient presented to the hospital with sepsis due to probable urinary tract source of infection with acute sepsis related organ dysfunction as evidenced by altered mental status and lactic acidemia. She did receive supplemental IV fluid hydration and remains hemodynamically stable at the present time. There is no need for vasopressor support. Plan to continue broad-spectrum antimicrobials. On account of the patient's history of multidrug-resistant organisms, infectious diseases consultation is pending. 2. Encephalopathy Clinical concern for underlying sepsis as precipitating etiology. However, there was some concern documented in the emergency department about potential seizure activity. The patient does not have any pre-existing epilepsy diagnosis. She was treated with IV Ativan and started on Keppra. This will be continued, per neurology recommendations. EEG results are pending. The patient is much more alert and appropriately interactive today. 3. History of pressure ulcer with osteomyelitis/hypothyroidism/history of DVT/depression/anxiety/chronic pain syndrome Complicates care, management, recovery and prognosis. Continue current supportive care as noted above. This note was generated with onefinest[employer] dictation software. It may contain incorrect words, spelling, and punctuation that were not noted in checking the note before signing. Subjective Subjective The patient was seen and examined at the bedside this morning. Events from the last 24 hours have been reviewed. The patient is currently afebrile, hemodynamically stable and maintaining appropriate oxygen saturations on room air. The patient is documented to be overall net +2.9 L for the hospitalization. White count has normalized this morning. Hemoglobin is stable. Potassium is low at 2.8. The patient is much more alert and interactive this morning. She has no specific complaints. Objective Data Objective Data The patient's most recent lab work, culture data and imaging studies have all been personally reviewed. Preliminary urine culture dated July 02 is demonstrating growth of a gram-negative luann. Vital Signs: Vital Signs Temp Pulse Resp BP Pulse Ox O2 Del Method O2 Flow Rate 97.6 F L 72 20 H 159/90 H 94 Room Air 2 07/04/23 01:00 07/04/23 05:00 07/04/23 05:00 07/04/23 05:00 07/04/23 05:00 07/04/23 05:00 07/04/23 02:00 Oxygen Flow Rate (L/min) 2 Oxygen Delivery Method Room Air Weight: 238 lb 15.697 oz Body Mass Index (BMI) 41.0 Intake & Output: Intake and Output for Last 24 Hours 07/02/23 07/03/23 07/04/23 23:59 23:59 23:59 Intake Total 6030 / 6030 50 / 50 Output Total 3150 / 3150 Balance 2880 / 2880 50 / 50 Lab / Micro Data Attestation: I reviewed the patient's lab results. 07/04/23 04:40 07/04/23 04:40 Labs: Laboratory Results - last 24 hr 07/02/23 22:45: TSH 1.86 07/03/23 03:04: WBC 14.8 H, RBC 3.91 L, Hgb 10.1 L, Hct 33.2 L, MCV 84.9, MCH 25.8 L, MCHC 30.4 L, RDW Std Deviation 49.2 H, RDW Coeff of Juan Antonio 15.9 H, Plt Count 336, MPV 9.4, Neut % (Auto) Not Reportable, Absolute Neuts (auto) 12.3 H, Absolute Lymphs (auto) 1.92, Total Counted 100, Neutrophils % (Manual) 83 H, Lymphocytes % (Manual) 13 L, Monocytes % (Manual) 4, Platelet Estimate ADEQUATE, RBC Morphology NORM C+C, Sodium 140, Potassium 3.3 L, Chloride 110 H, Carbon Dioxide 24.0, Anion Gap 6, BUN 7, Creatinine 0.30 L, Estim Creat Clear Calc 272.80, Est GFR (MDRD) Af Amer 309, Est GFR (MDRD) Non-Af 256, BUN/Creatinine Ratio 23.7 H, Glucose 188 H, Calcium 7.8 L 07/04/23 04:40: WBC 9.9, RBC 3.89 L, Hgb 10.0 L, Hct 32.1 L, MCV 82.5, MCH 25.7 L, MCHC 31.2 L, RDW Std Deviation 48.3 H, RDW Coeff of Juan Antonio 15.9 H, Plt Count 325, MPV 9.5, Immature Gran % (Auto) 0.400, Neut % (Auto) 59.8, Lymph % (Auto) 30.5, [place] % (Auto) 7.8, Eos % (Auto) 1.1, Baso % (Auto) 0.4, Absolute Neuts (auto) 5.9, Absolute Lymphs (auto) 3.03, Nucleated RBC % 0, Sodium 142, Potassium 2.8 L, Chloride 110 H, Carbon Dioxide 27.0, Anion Gap 5, BUN 5 L, Creatinine 0.28 L, Estim Creat Clear Calc 292.29, Est GFR (MDRD) Af Amer 330, Est GFR (MDRD) Non-Af 273, BUN/Creatinine Ratio 17.9, Glucose 122 H, Calcium 8.2 L, Total Bilirubin 0.40, AST 20, ALT 29, Alkaline Phosphatase 66, Total Protein 7.1, Albumin 2.7 L, Globulin 4.4 H, Albumin/Globulin Ratio 0.6 L Micro: Microbiology 07/02/23 23:10 Urine, Catheterized Urine Culture - Preliminary Gram negative luann 07/02/23 22:55 Mucosa - Nose SARS-CoV-2, Influenza & RSV (PCR) - Final ABG Data ABG results: ABG 07/03/23 07:08 Specimen Type ART Sample Site R Radial pH 7.47 H Bicarbonate Actual 24.3 Total CO2 25 Base Excess 1 O2 Saturation 90 L O2 % 21.0 ABG pCO2 33.5 L ABG pO2 54 L Yeyo Test Positive O2 Delivery Device Room Air Vent Mode Not entered Physical Exam Const alert and no apparent distress Constitutional Narrative: Answers questions appropriately. HEENT normocephalic, head/scalp atraumatic and moist oral mucous membranes Eyes PERRL, EOMs intact bilaterally and conjunctivae normal Neck supple General: trachea midline Chest inspection of chest normal Resp normal respiratory effort Auscultation: diminished lung sounds; Negative for rales, rhonchi or wheezes Cardio regular rate, regular rhythm, S1 normal heart sound and S2 normal heart sound GI normal to inspection, nondistended, normoactive bowel sounds GI Narrative: Suprapubic catheter present Extremity no clubbing, cyanosis or edema Skin no rashes or lesions noted Neuro Neuro Narrative: Rhythmic contractions of right upper extremity. Psych Mood & Affect: flat affect Charges/Coding Visit Charges Inpatient E&M: 60374 Subs Hosp L2
[2023-07-04] MEDS: Levothyroxine 75 MCG Tablet PO (05:58)
[2023-07-04] MEDS: Gabapentin 800 MG Tablet 1600 MG PO ×3 (05:58→21:38)
[2023-07-04] MEDS: Piperacil/Tazobactam 3.375 GM in 0.9% Normal Saline (50mL MB+) 50 ML IV ×2 (05:59→14:16)
[2023-07-04] MEDS: Menthol/Lanolin/Calamine/Znox 113 GM Tube 1 APPLIC TOPICAL ×3 (05:59→21:39)
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
[2023-07-04] MEDS: Potassium Chloride 10mEq/100mL 10 MEQ/100 ML IV.SOLN. 100 MEQ IV BOLUS ×4 (08:02→11:46)
[2023-07-04] MEDS: Potassium Chloride Oral Soln 20 MEQ/15 ML UDC 40 MEQ PO (08:11)
[2023-07-04] MEDS: Miconazole Nitrate 43 GM Bottle 1 APPLIC TOPICAL ×2 (09:21→21:39)
[2023-07-04] MEDS: Enoxaparin 40 MG/0.4 ML Syringe SC (09:21)
[2023-07-04] MEDS: Docusate Sodium 100 MG Capsule 200 MG PO (09:21)
[2023-07-04] MEDS: Tolterodine Tartrate 4 MG CAP.SA PO (09:22)
[2023-07-04] MEDS: busPIRone 5 MG Tablet 10 MG PO ×2 (09:24→21:38)
--- NOTE | 2023-07-04 09:42 | NEURO.PNOTE ---
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 Unclear if this was a seizure or could be related to infection or event baclofen withdrawal (As unclear when last dose was taken). Exam significantly improved this morning and patient is back to baseline . She does not remember what happened. She is able to swallow PO medications . Suspect toxic metabolic encephalopathy, in the setting of UTI and baclofen widdrawl. Resolved now. EEG consistent with mild to moderate encephalopathy. No IEA or seizures. Diagnosis: Suspect toxic metabolic encephalopathy, in the setting of UTI and baclofen widdrawl. Resolved now. Plan: Awaiting MRI brain , if negative no fruther recommendations . EEG report is attached. Continue home baclofen and discontinue Keppra. Transfer to [facility] for the following reasons: none I personally attended this patient and spent a total time of 30 minutes evaluating this patient including clinical assessment, review of chart, medical history imaging, and determining appropriate treatment and workup. Jonna Mansfield MD [facility] Neurology Department Subject: Neurology Subjective HENRIK GARCIA is a 48 year old F, who we are seeing in consultation today for advice on the management of staring event and related patient care. EEG Results Procedure Details EEG Procedure Details: Patient: HENRIK GARCIA , Phone: Cell: 0 Weight: 0.0 lb lb Patient ID: [id number] Date of : 1975 Sex: Female Age: 48 years old Height: 0.0 in in Inpatient routine EEG report: Study start time: 07/03/2023 09:48 AM End Time: 07/03/2023 10:09 AM History: 48 year old female admitted with starting event concerning for seizure Indication: rule out seizure Technical Description: This is a 21-channel digital EEG recording with time-locked video and single-channel electrocardiogram. Electrodes are placed according to the 10 to 20 International System. Additional T1 and T2 electrodes were placed. The patient was monitored continuously by EEG technicians by video and EEG recording was reviewed intermittently with annotations to the EEG record made every two hours. Portions of this record are reviewed using bandpass filters of 1 to 70 Hz and sensitivity of 7mV/mm. EEG DESCRIPTION Background: This recording was obtained during awake and drowsy state. In the maximally alert state, a posterior dominant rhythm was a symmetric, poorly modulated 5-6 Hz with a normal frequency-amplitude gradient. During drowsiness, there was attenuation of the waking background. Stage II sleep architecture was not observed. Background was comprised of diffuse admixed delta theta slow activity. Activation Procedures: Photic stimulation induced normal physiological response. Sporadic Epileptiform Discharges: none Focal slow activity: none Rhythmic or Periodic activity: none Seizures: none Patient Events: none EEG DIAGNOSIS Diffuse slow activity, mild to moderate in degree CLINICAL INTERPRETATION This routine EEG is indicative of mild to moderate degree of encephalopathy. EEG performed by: [facility] JOHNSON Brown [facility] JOHNSON Brown M.D. Neurology Objective Data Objective Data Vital Signs: Vital Signs Temp Pulse Resp BP Pulse Ox O2 Del Method O2 Flow Rate 97.4 F L 83 28 H 103/56 L 94 Room Air 2 07/04/23 08:00 07/04/23 08:00 07/04/23 08:00 07/04/23 08:00 07/04/23 08:00 07/04/23 08:00 07/04/23 07:00 Oxygen Flow Rate (L/min) 2 Oxygen Delivery Method Room Air Weight: 108.2 kg Body Mass Index (BMI) 40.7 Intake & Output: Intake and Output for Last 24 Hours 07/02/23 07/03/23 07/04/23 23:59 23:59 23:59 Intake Total 6030 / 6030 150 / 150 Output Total 3150 / 3150 500 / 500 Balance 2880 / 2880 -350 / -350 Lab / Micro Data 07/04/23 04:40 07/04/23 04:40 Labs: Laboratory Results - last 24 hr 07/03/23 03:04: WBC 14.8 H, RBC 3.91 L, Hgb 10.1 L, Hct 33.2 L, MCV 84.9, MCH 25.8 L, MCHC 30.4 L, RDW Std Deviation 49.2 H, RDW Coeff of Juan Antonio 15.9 H, Plt Count 336, MPV 9.4, Neut % (Auto) Not Reportable, Absolute Neuts (auto) 12.3 H, Absolute Lymphs (auto) 1.92, Total Counted 100, Neutrophils % (Manual) 83 H, Lymphocytes % (Manual) 13 L, Monocytes % (Manual) 4, Platelet Estimate ADEQUATE, RBC Morphology NORM C+C, Sodium 140, Potassium 3.3 L, Chloride 110 H, Carbon Dioxide 24.0, Anion Gap 6, BUN 7, Creatinine 0.30 L, Estim Creat Clear Calc 272.80, Est GFR (MDRD) Af Amer 309, Est GFR (MDRD) Non-Af 256, BUN/Creatinine Ratio 23.7 H, Glucose 188 H, Calcium 7.8 L 07/04/23 04:40: WBC 9.9, RBC 3.89 L, Hgb 10.0 L, Hct 32.1 L, MCV 82.5, MCH 25.7 L, MCHC 31.2 L, RDW Std Deviation 48.3 H, RDW Coeff of Juan Antonio 15.9 H, Plt Count 325, MPV 9.5, Immature Gran % (Auto) 0.400, Neut % (Auto) 59.8, Lymph % (Auto) 30.5, [place] % (Auto) 7.8, Eos % (Auto) 1.1, Baso % (Auto) 0.4, Absolute Neuts (auto) 5.9, Absolute Lymphs (auto) 3.03, Nucleated RBC % 0, Sodium 142, Potassium 2.8 L, Chloride 110 H, Carbon Dioxide 27.0, Anion Gap 5, BUN 5 L, Creatinine 0.28 L, Estim Creat Clear Calc 292.29, Est GFR (MDRD) Af Amer 330, Est GFR (MDRD) Non-Af 273, BUN/Creatinine Ratio 17.9, Glucose 122 H, Calcium 8.2 L, Total Bilirubin 0.40, AST 20, ALT 29, Alkaline Phosphatase 66, Total Protein 7.1, Albumin 2.7 L, Globulin 4.4 H, Albumin/Globulin Ratio 0.6 L Micro: Microbiology 07/02/23 23:10 Urine, Catheterized Urine Culture - Preliminary Proteus mirabilis 07/02/23 22:55 Mucosa - Nose SARS-CoV-2, Influenza & RSV (PCR) - Final Physical Exam Neuro Neuro Narrative: -? General: Laying comfortably in bed; in no acute distress. -? HENT: Normal oropharynx and mucosa. Normal external appearance of ears and nose. Exophthalmos. -? Neck: Supple, no pain or tenderness -? CV:? No peripheral edema. -? Pulmonary:? Normal respiratory effort. -? Ext: No cyanosis, edema, or deformity -? Skin: No rash. Normal palpation of skin.? -? Musculoskeletal: full range of motion; no joint tenderness. Normal digits and nails by inspection. No clubbing. -? NEURO: -? Mental Status: The patient was -? Language: speech is .? Naming, repetition, fluency, and comprehension intact. -? Cranial Nerves: PERRL mm/brisk. EOMI, visual black full, no facial asymmetry, facial sensation intact, hearing intact, tongue midline, no evidence of atrophy or fibrillations. As performed by the nurse/MAGDALENA Sternocleidomastoid and trapezius were equally strong. Soft palate raises equally, no uvular deviations -? Motor: normal bulk, tone, and strength throughout. No pronator drift or satelliting. Upper and lower extremities equal bilaterally. -? R L SA EE EF WE WF Clinical Research Tech HF KE KF DF PF -? Detailed reflex exam as performed by the nurse/MAGDALENA and witnessed by the physician: R L Biceps Patellar Ankle Babinski -? Tone: is normal and bulk is normal -? Sensation- Intact to light touch bilaterally -? Coordination: No dysmetria on [id number], finger follow finger or [id number]. -? Gait- Gait initiation was normal. Narrow base with good heel strike and stride length was observed during ambulation. Turns were in stride. Patient was able to walk normally in tandem. Romberg was normal.
[2023-07-04] MEDS: Linezolid 600 MG 600 MG/300 ML BAG 200 MG IV ×2 (10:43→22:34)
[2023-07-04] MEDS: Cholecalciferol (VIT D3) 25 MCG TABLET (1,000 UNITS) 50 MCG PO (11:47)
[2023-07-04] MEDS: Pantoprazole Sodium 20 MG Tablet PO (11:47)
[2023-07-04] MEDS: Potassium Chloride Oral Tablet 10 MEQ PO (11:49)
[2023-07-04] MEDS: Vibegron 75 MG TABLET PO (11:49)
[2023-07-04 18:12] LABS: BUN 5 mg/dL (7-18); BUN/Creat Ratio 16.7 RATIO (10-20); EST Glomerular Filtration Rate 251 mL/min (>60); Est Glom Filt Rate - Afr Amer 304 mL/min (>60); Estimated Creatinine Clearance 272.52 ml/min; Glucose 138 mg/dL (74-106)
[2023-07-04 18:13] LABS: Anion Gap 4 (5-15); Calcium,Total 9.2 mg/dL (8.5-10.1); Chloride 112 mmol/L (98-107); Potassium 4.1 mmol/L (3.5-5.1); Sodium Level 142 mmol/L (136-145)
[2023-07-04] MEDS: 0.9% Saline Lock 10 ML Syringe IV (21:31)
[2023-07-04] MEDS: Paroxetine 20 MG Tablet PO (21:38)
[2023-07-04] MEDS: DULoxetine Hcl 30 MG Capsule 90 MG PO (21:38)
[2023-07-04] MEDS: Polyethylene Glycol 3350 17 GM PACKET PO (21:38)
[2023-07-04] MEDS: MELATONIN 10 MG TABLET 5 MG PO (21:38)
[2023-07-04] MEDS: Acetaminophen 325 MG Tablet 650 MG PO (22:57)
[2023-07-05] VITALS (10 sets, daily range): BP systolic 100–230; BP diastolic 58–119; PULSE 61–91; RESP 16–18; TEMP 36.1–36.8; O2SAT 92–96; BMI 41.0
[2023-07-05] MEDS: SimETHICONE 80 MG Chewable Tablet PO (00:10)
[2023-07-05] MEDS: Baclofen 10 MG Tablet 40 MG PO ×4 (00:10→17:52)
[2023-07-05] MEDS: Piperacil/Tazobactam 3.375 GM in 0.9% Normal Saline (50mL MB+) 50 ML IV ×4 (00:10→21:45)
[2023-07-05] MEDS: Acetaminophen 325 MG Tablet 650 MG PO ×4 (04:09→19:49)
[2023-07-05 04:32] LABS: Absolute Lymphocyte Count 3.76 X10^3/uL (0.83-4.51); Absolute Neutrophil Count 6.2 X10^3/uL (2.0-7.7); Basophil# 0.07 X10^3/uL; Basophil% 0.6 % (0-1); Eosinophil# 0.35 X10^3/uL; Eosinophils% 3.1 % (0-5); Hematocrit 34.8 % (37-47); Hemoglobin 10.7 g/dL (12.0-15.0); Lymphocyte # 3.76 X10^3/ul (0.83-4.51); Lymphocyte % 33.4 % (19-41); Mean Corp Hgb Conc 30.7 g/dL (32-36); Mean Corpuscular Hgb 25.5 pg (27.0-32.0); Mean Corpuscular Volume 82.9 fL (81-99); Mean Platelet Vol. 9.3 fl (6.2-12.0); Monocyte# 0.84 X10^3/uL; Monocyte% 7.5 % (0-10); NRBC Flagged by Analyzer 0 % (0-5); Neutrophil # 6.19 X10^3/uL (2.7-7.7); Platelet Count 337 K/mm3 (150-450); RBC Distribution Width SD 48.3 fl (35.1-43.9); White Blood Count 11.3 K/mm3 (4.4-11.0)
[2023-07-05 05:07] LABS: ALB/GLOB Ratio 0.6 RATIO (0.9-2.4); AST(SGOT) 31 U/L (15-37); Alanine Aminotransfer ALT/SGPT 36 U/L (13-56); Albumin, Serum 3.1 g/dL (3.2-5.0); Alkaline Phosphatase 83 U/L (45-117); Anion Gap 6 (5-15); BUN 6 mg/dL (7-18); BUN/Creat Ratio 18.9 RATIO (10-20); Calcium,Total 8.9 mg/dL (8.5-10.1); Chloride 109 mmol/L (98-107); Creatinine, Serum 0.32 mg/dL (0.55-1.02); EST Glomerular Filtration Rate 235 mL/min (>60); Est Glom Filt Rate - Afr Amer 284 mL/min (>60); Estimated Creatinine Clearance 256.42 ml/min; Globulin 4.8 g/dL (2.2-4.2); Glucose 121 mg/dL (74-106); Potassium 3.7 mmol/L (3.5-5.1); Protein, Total 7.9 g/dL (6.4-8.2); Sodium Level 140 mmol/L (136-145)
[2023-07-05] MEDS: Menthol/Lanolin/Calamine/Znox 113 GM Tube 1 APPLIC TOPICAL ×3 (05:44→20:02)
[2023-07-05] MEDS: Levothyroxine 75 MCG Tablet PO (05:44)
[2023-07-05] MEDS: Gabapentin 800 MG Tablet 1600 MG PO ×3 (05:44→23:00)
[2023-07-05] MEDS: Miconazole Nitrate 43 GM Bottle 1 APPLIC TOPICAL ×2 (08:05→20:01)
[2023-07-05] MEDS: Tolterodine Tartrate 4 MG CAP.SA PO (08:07)
--- NOTE | 2023-07-05 08:19 | PCM.PN.INT ---
Assessment & Plan Assessment/Plan (1) Sepsis: PLAN: Plan RECOMMENDATIONS: 1. Continue antibiotics, pending finalized culture results. 2. Continue baclofen per home regimen. 3. Encourage incentive spirometer use while in bed. 4. Will sign off from a critical care perspective. Please call with any additional questions. IMPRESSIONS: 1. Sepsis The patient presented to the hospital with sepsis due to probable urinary tract source of infection with acute sepsis related organ dysfunction as evidenced by altered mental status and lactic acidemia. She did receive supplemental IV fluid hydration and remains hemodynamically stable at the present time. There is no need for vasopressor support. The patient's mentation has improved with supportive care. Plan to continue antimicrobials, pending finalized culture results. 2. Encephalopathy Clinical concern for underlying sepsis as precipitating etiology. However, there was some concern documented in the emergency department about potential seizure activity. The patient does not have any pre-existing epilepsy diagnosis. She was treated with IV Ativan and started on Keppra. Although the patient was seen by neurology, her mental status has improved with supportive care, including antibiotics. 3. History of pressure ulcer with osteomyelitis/hypothyroidism/history of DVT/depression/anxiety/chronic pain syndrome Complicates care, management, recovery and prognosis. Continue current supportive care as noted above. This note was generated with [employer]ong[employer] dictation software. It may contain incorrect words, spelling, and punctuation that were not noted in checking the note before signing. Subjective Subjective The patient was seen and examined at the bedside this morning. Events from the last 24 hours have been reviewed. The patient is currently afebrile, hemodynamically stable and maintaining appropriate oxygen saturations on room air. Morning labs are stable. Objective Data Objective Data The patient's most recent lab work, culture data and imaging studies have all been personally reviewed. Preliminary urine culture dated July 02 is demonstrating growth of Proteus mirabilis. Vital Signs: Vital Signs Temp Pulse Resp BP Pulse Ox O2 Del Method O2 Flow Rate 98 F 66 16 190/119 H 95 Room Air 2 07/05/23 08:10 07/05/23 08:10 07/05/23 08:10 07/05/23 08:10 07/05/23 08:10 07/05/23 08:10 07/04/23 07:00 Oxygen Flow Rate (L/min) 2 Oxygen Delivery Method Room Air Weight: 240 lb 1.334 oz Body Mass Index (BMI) 41.0 Intake & Output: Intake and Output for Last 24 Hours 07/03/23 07/04/23 07/05/23 23:59 23:59 23:59 Intake Total 6030 / 6030 1250 / 1250 590 / 590 Output Total 3150 / 3150 1375 / 1725 625 / 625 Balance 2880 / 2880 -125 / -475 -35 / -35 Lab / Micro Data Attestation: I reviewed the patient's lab results. 07/05/23 03:50 07/05/23 03:50 Labs: Laboratory Results - last 24 hr 07/04/23 16:57: Sodium 142, Potassium 4.1, Chloride 112 H, Carbon Dioxide 26.0, Anion Gap 4 L, BUN 5 L, Creatinine 0.30 L, Estim Creat Clear Calc 272.52, Est GFR (MDRD) Af Amer 304, Est GFR (MDRD) Non-Af 251, BUN/Creatinine Ratio 16.7, Glucose 138 H, Calcium 9.2 07/05/23 03:50: WBC 11.3 H, RBC 4.20, Hgb 10.7 L, Hct 34.8 L, MCV 82.9, MCH 25.5 L, MCHC 30.7 L, RDW Std Deviation 48.3 H, RDW Coeff of Juan Antonio 16.0 H, Plt Count 337, MPV 9.3, Immature Gran % (Auto) 0.400, Neut % (Auto) 55.0, Lymph % (Auto) 33.4, [place] % (Auto) 7.5, Eos % (Auto) 3.1, Baso % (Auto) 0.6, Absolute Neuts (auto) 6.2, Absolute Lymphs (auto) 3.76, Nucleated RBC % 0, Sodium 140, Potassium 3.7, Chloride 109 H, Carbon Dioxide 25.0, Anion Gap 6, BUN 6 L, Creatinine 0.32 L, Estim Creat Clear Calc 256.42, Est GFR (MDRD) Af Amer 284, Est GFR (MDRD) Non-Af 235, BUN/Creatinine Ratio 18.9, Glucose 121 H, Calcium 8.9, Total Bilirubin 0.50, AST 31, ALT 36, Alkaline Phosphatase 83, Total Protein 7.9, Albumin 3.1 L, Globulin 4.8 H, Albumin/Globulin Ratio 0.6 L Micro: Microbiology 07/02/23 23:10 Urine, Catheterized Urine Culture - Preliminary Proteus mirabilis 07/03/23 02:05 Urine Catheter - Mccarthy Urine Culture - Preliminary Gram negative luann 07/02/23 22:55 Mucosa - Nose SARS-CoV-2, Influenza & RSV (PCR) - Final ABG Data ABG results: ABG 07/03/23 07:08 Specimen Type ART Sample Site R Radial pH 7.47 H Bicarbonate Actual 24.3 Total CO2 25 Base Excess 1 O2 Saturation 90 L O2 % 21.0 ABG pCO2 33.5 L ABG pO2 54 L Yeyo Test Positive O2 Delivery Device Room Air Vent Mode Not entered Physical Exam Const alert and no apparent distress Constitutional Narrative: Answers questions appropriately. HEENT normocephalic, head/scalp atraumatic and moist oral mucous membranes Eyes PERRL, EOMs intact bilaterally and conjunctivae normal Neck supple General: trachea midline Chest inspection of chest normal Resp normal respiratory effort Auscultation: diminished lung sounds; Negative for rales, rhonchi or wheezes Cardio regular rate, regular rhythm, S1 normal heart sound and S2 normal heart sound GI normal to inspection, nondistended, normoactive bowel sounds GI Narrative: Suprapubic catheter present Extremity no clubbing, cyanosis or edema Skin no rashes or lesions noted Neuro Neuro Narrative: Rhythmic contractions of right upper extremity. Psych Mood & Affect: flat affect Charges/Coding Visit Charges Inpatient E&M: 95995 Subs Hosp L2
--- NOTE | 2023-07-05 09:13 | PN.HOSP_ITS ---
Reason for Visit Reason for Visit: Diagnoses Sepsis, unspecified organism (07/03/23) Unspecified convulsions (07/03/23) Objective Data Objective Data Vital Signs: Vital Signs Temp Pulse Resp BP Pulse Ox O2 Del Method O2 Flow Rate 98 F 66 16 190/119 H 95 Room Air 2 07/05/23 08:10 07/05/23 08:10 07/05/23 08:10 07/05/23 08:10 07/05/23 08:10 07/05/23 08:10 07/04/23 07:00 Oxygen Flow Rate (L/min) 2 Oxygen Delivery Method Room Air Weight: 240 lb 1.334 oz Body Mass Index (BMI) 41.0 Intake & Output: Intake and Output for Last 24 Hours 07/03/23 07/04/23 07/05/23 23:59 23:59 23:59 Intake Total 6030 / 6030 1250 / 1250 590 / 590 Output Total 3150 / 3150 1375 / 1725 625 / 625 Balance 2880 / 2880 -125 / -475 -35 / -35 Lab / Micro Data 07/05/23 03:50 07/05/23 03:50 Labs: Laboratory Results - last 24 hr 07/04/23 16:57: Sodium 142, Potassium 4.1, Chloride 112 H, Carbon Dioxide 26.0, Anion Gap 4 L, BUN 5 L, Creatinine 0.30 L, Estim Creat Clear Calc 272.52, Est GFR (MDRD) Af Amer 304, Est GFR (MDRD) Non-Af 251, BUN/Creatinine Ratio 16.7, Glucose 138 H, Calcium 9.2 07/05/23 03:50: WBC 11.3 H, RBC 4.20, Hgb 10.7 L, Hct 34.8 L, MCV 82.9, MCH 25.5 L, MCHC 30.7 L, RDW Std Deviation 48.3 H, RDW Coeff of Juan Antonio 16.0 H, Plt Count 337, MPV 9.3, Immature Gran % (Auto) 0.400, Neut % (Auto) 55.0, Lymph % (Auto) 33.4, [place] % (Auto) 7.5, Eos % (Auto) 3.1, Baso % (Auto) 0.6, Absolute Neuts (auto) 6.2, Absolute Lymphs (auto) 3.76, Nucleated RBC % 0, Sodium 140, Potassium 3.7, Chloride 109 H, Carbon Dioxide 25.0, Anion Gap 6, BUN 6 L, Creatinine 0.32 L, Estim Creat Clear Calc 256.42, Est GFR (MDRD) Af Amer 284, Est GFR (MDRD) Non-Af 235, BUN/Creatinine Ratio 18.9, Glucose 121 H, Calcium 8.9, Total Bilirubin 0.50, AST 31, ALT 36, Alkaline Phosphatase 83, Total Protein 7.9, Albumin 3.1 L, Globulin 4.8 H, Albumin/Globulin Ratio 0.6 L Micro: Microbiology 07/03/23 02:05 Urine Catheter - Mccarthy Urine Culture - Preliminary Pseudomonas aeruginosa Gram negative luann GPC Poss Enterococcus sp Gram negative luann#2 07/02/23 23:10 Urine, Catheterized Urine Culture - Preliminary Proteus mirabilis 07/02/23 22:55 Mucosa - Nose SARS-CoV-2, Influenza & RSV (PCR) - Final Physical Exam Narrative Seen and examined. Nurse told me that patient is having severe abdominal pain. When asked questions he said it is all over diffuse. The pain started about last night, 10/10 intensity, cramping in nature and patient could not state the initial starting location of abdominal pain. She also had one-time loose bowel movement. No bloody bowel movement Physical exam: General: Alert, Oriented x3, Cooperative, morbid obesity BMI 41.2 kg square meter HEENT: Atraumatic, PERRLA, EOMI, Normocephalic Oral: Oral mucosa dry. No Gingival or Mucosal Lesions/ Ulcerations Neck: Supple, No JVD, Negative Carotid Bruits Lungs: Air entry diminished in bilateral lung bases. No crepitation/rhonchi Cardiovascular: Regular rate, Regular Rhythm, Normal S1, Normal S2, No murmurs Abdomen: Bowel Sounds hyper. Soft, mild tenderness but no appreciable : No renal angle tenderness. No suprapubic tenderness. Extremities: Slight edema, Capillary Refill Less than 3 Seconds Skin: No rashes, No breakdown Musculoskeletal: Functional quadriplegia. Could not move her legs, chronic paraplegia. No Tenderness to Palpation of Joints or Extremities Neurological: Cranial nerves II-XII grossly intact, chronic neurological deficit. Psych/Mental Status: Normal Affect, Appropriate. Assessment & Plan Assessment/Plan (1) Seizure: PLAN: Plan HENRIK RADHA, is a 48 F was [facility] for altered mental status. Per daughter she was at her baseline 6 PM the previous evening, brought to ED and had seizure-like activity and was also found to have evidence of UTI and concern for sepsis. Patient continued on Zosyn and linezolid and started on Keppra with EEG ordered and [facility] teleneurology consult. 1. Sepsis secondary to Acute Cystitis; without hematuria in the setting of C7 spinal cord injury with quadriplegia, neurogenic bladder and suprapubic catheter with frequent UTI's - Admit to ICU for treatment for treatment of sepsis protocol under contact precautions. Continue IV Zosyn begun in the ER and continue Linezolid as previous. Give Tylenol prn for pain or fever. 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 still. Lactic acid improved from 5.7 to 1.2. Infectious diseases consulted. -07/04: Patient on broad-spectrum antibiotics, urine culture with Proteus, ID consult pending, blood cultures pending 07/05: Urine culture shows multiple organisms Pseudomonas more than 100,000 colonies GNR, GPC possible Enterococcus and GNR 2 suggestive of contamination. 2. Septic/metabolic encephalopathy arising from #1 - Continue supportive care and monitor for improvement. -07/03: Treat underlying etiology, patient still confused -07/04: Patient on broad-spectrum antibiotics, underlying etiology being treated, patient significantly improving with treatment of infection 07/05: Patient screaming and moaning. She said her abdomen is hurting all over but could not give detailed history of characteristic of abdominal pain. On exam, abdomen feels soft with increased bowel sounds. No guarding/rigidity. Started on Seroquel. 3. Suspected absence-type seizure in the ER requiring treatment with IV Ativan compounding #1 & #2 - Check EEG to confirm suspicion. Start Keppra 1g IV BID. Finally, we will consult [facility] teleneurology with help appreciated in advance. -07/03: On Keppra, teleneurology consult, EEG ordered. CT in ED with acute left sphenoid sinusitis but otherwise unremarkable -07/04: Patient evaluated by teleneurology, EEG with mild to moderate encephalopathy with no seizure activity, neuro recommended to pursue MRI and lee Tovar 07/05 patient went for MRI 4. New onset abdominal pain: Abdomen is soft with generalized abdominal pain no other specific tender points. Pain medication given. Had one-time loose bowel movement. Monitor if abdominal pain does not get better will need imaging CT abdomen and pelvis. 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 Wound RN to see patient on-rounds in the AM with consult appreciated in advance. -07/03: Local wound care, cont linezolid -07/04: Wound care consult, ID consult, continue present management 5. Hypothyroidism - Resume Synthroid as previous and check TSH. -07/03: TSH within normal limits 6. Morbid obesity; with BMI of 42.7 this admission - Weight loss will be recommended but is unlikely given her paralysis. -07/03: Updated BMI 40.9 7. History of WPW syndrome - Noted. 8. History of RLE DVT; with listed allergies to Apixaban & Xarelto (rash) - Noted. 9. History of Left femur fracture - Noted. 10. History of cocaine and heroin abuse - Noted. 11. Depression with anxiety - Continue home medications as previous. 12. GERD - Resume PPI as previous. 13. Chronic headaches - Stable. 14. Chronic pain; on Buprenorphine patch - Continue Buprenorphine patch as previous. 15. DVT prophylaxis - Lovenox 40 mg sq BID Charges/Coding Visit Charges Inpatient E&M: 70149 Subs Hosp L2
[2023-07-05] MEDS: HYDROmorphone 0.5 MG/0.5 ML SYRINGE IV ×3 (09:32→19:50)
[2023-07-05] MEDS: hydrALAZINE 20 MG/ML Vial 10 MG IV (09:32)
--- NOTE | 2023-07-05 10:00 | MRI_ITS ---
HISTORY: AMS. TECHNIQUE: Multiplanar and multisequence MR images of the brain were obtained without contrast. 281 images. COMPARISON: CT 07/02/2023. FINDINGS: BRAIN PARENCHYMA: Mild zones of increased T2 FLAIR signal in the bilateral posterior parietal and temporal occipital lobes. Nonspecific white matter change in the right frontal lobe. No abnormal focus of restricted diffusion. No acute intracranial hemorrhage identified. CSF SPACES: Cerebral ventricles, cortical sulci, and other extra-axial CSF spaces within normal limits in size for age. No significant midline shift or other mass effect.No extra-axial fluid collection. VASCULAR SYSTEM: Major intracranial flow voids are maintained. PARANASAL SINUSES AND MASTOID AIR CELLS: Trace fluid in the sphenoid sinus. ORBITS: Symmetric contents. MRI/Brain without Contrast IMPRESSION: Mild zones of increased T2 FLAIR signal in the bilateral posterior parietal and temporal occipital lobes, which can be seen with acute hypertensive encephalopathy, status epilepticus, or hypoglycemia. No evidence for acute infarct. Very mild chronic white matter changes. Electronically Signed: Mary Keller MD at 15:56 EST ,
[2023-07-05] MEDS: QUEtiapine 25 MG Tablet PO (10:52)
[2023-07-05] MEDS: busPIRone 5 MG Tablet 10 MG PO ×2 (10:52→19:49)
[2023-07-05] MEDS: Pantoprazole Sodium 20 MG Tablet PO (10:53)
[2023-07-05] MEDS: Potassium Chloride Oral Tablet 10 MEQ PO (10:53)
[2023-07-05] MEDS: Cholecalciferol (VIT D3) 25 MCG TABLET (1,000 UNITS) 50 MCG PO (10:54)
[2023-07-05] MEDS: Vibegron 75 MG TABLET PO (10:54)
[2023-07-05] MEDS: Linezolid 600 MG 600 MG/300 ML BAG 200 MG IV ×2 (11:13→19:50)
--- NOTE | 2023-07-05 13:44 | CASEMGMT ---
Discharge Planning Updates sent via [facility] to [facility]. Elisa Pinto, Discharge Planning Asst.
[2023-07-05] MEDS: LORazepam 0.5 MG Tablet PO (14:01)
--- NOTE | 2023-07-05 15:16 | CON.PCM.ID_ITS ---
Assessment & Plan Assessment/Plan (1) VRE infection (vancomycin resistant Enterococcus): (2) UTI (urinary tract infection): QUALIFIERS: Urinary tract infection type: acute cystitis Hematuria presence: without hematuria Qualified Code(s): N30.00 - Acute cystitis without hematuria PLAN: Ucx with enterococcus, PsA-like, GNR x2. H/o VRE. On linezolid/zosyn, improving, will continue. Will follow, thank you HPI Consult Data Date of Consult: 07/05/23 HPI Narrative Reason for Consultation: uti HPI Narrative: HENRIK GARCIA, is a 48 F with quadriplegia, suprapubic catheter, recurrent uti, presented 07/02 with altered mental status. She does not recall what happened or when she got sick. Denies fever or chills, no abd pain. Admitted, now on zosyn and linezolid, feeling better. Full ROS performed and neg except as noted above. [facility] Medical History Abnormal EKG Chronic headaches Chronic pain Cocaine abuse Deep vein thrombosis of right lower extremity Depression Exogenous obesity Heroin use History of Eelif-Ylsdwdvgf-Cbvbu (WPW) syndrome Hx: UTI (urinary tract infection) Hypothyroidism Left femoral shaft fracture Malnutrition of mild degree Neuromuscular dysfunction of bladder Paraplegia Pre-operative cardiovascular exam, new EKG abnormalities c/w ischemia Quadriparesis Right ischial pressure sore, stage 4 Spinal cord injury (2010) Suprapubic catheter Home Medications levothyroxine 75 mcg tablet 75 mcg PO DAILY hypothyroidism 05/28/15 [History Last Taken 04/22/21] duloxetine 60 mg capsule,delayed release 90 mg PO QHS depression 08/21/15 [History Last Taken 04/21/21] baclofen 10 mg tablet 40 mg PO Q6H SPASMS 08/16/16 [History Last Taken 04/22/21] acetaminophen 325 mg tablet 650 mg PO Q4H PRN PRN Pain or fever 03/01/18 [History Last Taken 04/21/21] bisacodyl 10 mg rectal suppository 10 mg [place] QHS PRN Constipation 03/01/18 [History Last Taken 04/21/21] omeprazole 20 mg capsule,delayed release 20 mg PO LUNCH GERD 03/01/18 [History Last Taken 04/22/21] furosemide 40 mg tablet 40 mg PO BREAKFAST edema 05/26/18 [History Last Taken 04/22/21] sennosides 8.6 mg tablet 17.2 mg PO BID constipation 08/16/18 [History Last Taken 04/22/21] cholecalciferol (vitamin D3) 50 mcg (2,000 unit) capsule 2,000 unit PO LUNCH SUPPLEMENT 08/08/19 [History Last Taken 04/22/21] polyethylene glycol 3350 17 gram oral powder packet 17 gm PO QHS constipation 08/08/19 [History Last Taken 04/21/21] docusate sodium 100 mg capsule (Colace) 200 mg PO BID constipation 10/11/20 [History Last Taken 04/21/21] furosemide 20 mg tablet 20 mg PO LUNCH edema 04/21/21 [History Last Taken ] gabapentin 800 mg tablet 1,600 mg PO TID NEUROPATHY 04/22/21 [History Last Taken 04/22/21] isosorbide mononitrate 30 mg tablet,extended release 24 hr 30 mg PO QHS angina 04/22/21 [History Last Taken 04/21/21] oxybutynin chloride 10 mg tablet,extended release 24 hr 30 mg PO DAILY Bladder spasms 04/22/21 [History Last Taken 04/22/21] potassium chloride 10 mEq capsule,extended release 10 meq PO LUNCH hypokalemia 04/22/21 [History Last Taken 04/22/21] phenazopyridine 200 mg tablet (Pyridium) 200 mg PO TID PRN Bladder Spasms 05/27/21 [History Last Taken Unknown] loperamide 2 mg tablet 1 mg PO Q4H PRN Diarrhea 06/03/22 [History Last Taken Unknown] magnesium hydroxide 400 mg/5 mL oral suspension (Milk of Magnesia) 30 ml PO DAILY PRN Constipation 06/03/22 [History Last Taken Unknown] melatonin 5 mg tablet 5 mg PO QHS insomnia 06/03/22 [History Last Taken Unknown] mirtazapine 30 mg tablet 15 mg PO QHS insomnia 06/03/22 [History Last Taken Unknown] ondansetron HCl 4 mg tablet 4 mg PO Q4H PRN Nausea 06/03/22 [History Last Taken Unknown] simethicone 80 mg tablet 80 mg PO DAILY PRN Gastric Reflux 06/03/22 [History Last Taken Unknown] buprenorphine 15 mcg/hour weekly transdermal patch (Butrans) 20 mcg transdermal Q7D pain 09/12/22 [History Last Taken 07/01/23] cetirizine 10 mg tablet 10 mg PO QPM allergies 09/12/22 [History Last Taken Unknown] linezolid 600 mg tablet 600 mg PO BID 7 days #14 tabs 11/16/22 [Rx Last Taken Unknown] nystatin 100,000 unit/gram topical powder (Nyamyc) 1 applic topical BID #15 grams 11/16/22 [Rx Last Taken Unknown] benzonatate 100 mg capsule 100 mg PO Q6H PRN 07/02/23 [History Last Taken Unknown] buspirone 10 mg tablet 10 mg PO BID 07/02/23 [History Last Taken Unknown] cetirizine 10 mg capsule (All Day Allergy (cetirizine)) 10 mg PO DAILY PRN allergies 07/02/23 [History Last Taken Unknown] diphenhydramine HCl 25 mg tablet (Allergy (diphenhydramine)) 50 mg PO Q8H PRN itching 07/02/23 [History Last Taken Unknown] fosfomycin tromethamine 3 gram oral packet 3 g PO X1 07/02/23 [History Last Taken Unknown] ibuprofen 200 mg tablet (Advil) 400 mg PO Q6H 07/02/23 [History Last Taken Unknown] linaclotide 145 mcg capsule (Linzess) 145 mcg PO LUNCH constipation 07/02/23 [History Last Taken Unknown] mirabegron 25 mg tablet,extended release 24 hr (Myrbetriq) 25 mg PO LUNCH 07/02/23 [History Last Taken Unknown] paroxetine HCl 10 mg tablet 20 mg PO QHS 07/02/23 [History Last Taken Unknown] trazodone 50 mg tablet 50 mg PO QHS 07/02/23 [History Last Taken Unknown] Allergy/AdvReac Type Severity Reaction Status Date / Time apixaban [From Eliquis] Allergy Rash Verified 07/02/23 22:41 coconut oil Allergy cant breath Verified 07/02/23 22:41 mometasone furoate Allergy Rash Verified 07/02/23 22:41 [From Elocon] nitrofurantoin Allergy Unknown Verified 07/02/23 22:41 rivaroxaban [From Xarelto] Allergy Rash Verified 07/02/23 22:41 Sulfa (Sulfonamide Allergy Shortness Verified 07/02/23 22:41 Antibiotics) of breath Penicillins AdvReac NEEDS Verified 07/02/23 22:41 FOLLOW-UP Family History Mother Diabetes Grandfather CAD (coronary artery disease) Colon cancer Grandmother Breast cancer Aunt Ovarian cancer Surgical History History of tracheostomy (2010) Social History Smoking Status: Never smoker Physical Exam Const alert, oriented x3 and no apparent distress General Appearance: cooperative HEENT normocephalic and head/scalp atraumatic Eyes PERRL and EOMs intact bilaterally Neck supple and No nodes Resp normal air movement and clear to auscultation bilaterally Cardio regular rate and regular rhythm GI soft to palpation, non-tender and non-distended Extremity General Extremity: Negative for edema Skin no rashes or lesions noted Neuro CN's II-XII intact bilaterally Lab / Micro Data Attestation: I reviewed the patient's lab results. 07/05/23 03:50 07/05/23 03:50 Labs: Laboratory Results - last 24 hr 07/04/23 16:57: Sodium 142, Potassium 4.1, Chloride 112 H, Carbon Dioxide 26.0, Anion Gap 4 L, BUN 5 L, Creatinine 0.30 L, Estim Creat Clear Calc 272.52, Est GFR (MDRD) Af Amer 304, Est GFR (MDRD) Non-Af 251, BUN/Creatinine Ratio 16.7, Glucose 138 H, Calcium 9.2 07/05/23 03:50: WBC 11.3 H, RBC 4.20, Hgb 10.7 L, Hct 34.8 L, MCV 82.9, MCH 25.5 L, MCHC 30.7 L, RDW Std Deviation 48.3 H, RDW Coeff of Juan Antonio 16.0 H, Plt Count 337, MPV 9.3, Immature Gran % (Auto) 0.400, Neut % (Auto) 55.0, Lymph % (Auto) 33.4, [place] % (Auto) 7.5, Eos % (Auto) 3.1, Baso % (Auto) 0.6, Absolute Neuts (auto) 6.2, Absolute Lymphs (auto) 3.76, Nucleated RBC % 0, Sodium 140, Potassium 3.7, Chloride 109 H, Carbon Dioxide 25.0, Anion Gap 6, BUN 6 L, Creatinine 0.32 L, Estim Creat Clear Calc 256.42, Est GFR (MDRD) Af Amer 284, Est GFR (MDRD) Non-Af 235, BUN/Creatinine Ratio 18.9, Glucose 121 H, Calcium 8.9, Total Bilirubin 0.50, AST 31, ALT 36, Alkaline Phosphatase 83, Total Protein 7.9, Albumin 3.1 L, Globulin 4.8 H, Albumin/Globulin Ratio 0.6 L Micro: Microbiology 07/02/23 22:45 Blood Culture (Wb) - Arm Left Blood Culture - Preliminary No growth in 48 hours. 07/02/23 23:15 Blood Culture (Wb) - Arm Left Blood Culture - Preliminary No growth in 48 hours. 07/02/23 23:10 Urine, Catheterized Urine Culture - Preliminary Proteus mirabilis GPC Poss Enterococcus sp 07/03/23 02:05 Urine Catheter - Mccarthy Urine Culture - Preliminary Pseudomonas aeruginosa Gram negative luann GPC Poss Enterococcus sp Gram negative luann#2
--- NOTE | 2023-07-05 16:30 | RAD_ITS ---
STUDY: X-RAY - ABDOMEN/PELVIS REASON FOR EXAM: Female, 48 years old. abdominal pain TECHNIQUE: Single AP view of the abdomen / pelvis. COMPARISON: None. FINDINGS: Normal visualized lung bases. There is an unremarkable bowel gas pattern. There is no demonstrated free abdominal air. The visualized liver, spleen and kidneys are grossly normal in size and morphology. Normal soft tissue structures. Scoliosis. Severe DJD right hip. Hardware left hip. Diffuse demineralization decreases sensitivity. RAD/Abdomen Single View (Portable) IMPRESSION: Normal x-ray examination of the abdomen and pelvis. Electronically Signed: David Moreno MD at 17:43 EST ,
[2023-07-05] MEDS: MELATONIN 10 MG TABLET 5 MG PO (19:48)
[2023-07-05] MEDS: Paroxetine 20 MG Tablet PO (19:49)
[2023-07-05] MEDS: DULoxetine Hcl 30 MG Capsule 90 MG PO (19:49)
[2023-07-05] MEDS: DiphenhydrAMINE 25 MG Capsule 50 MG PO (19:50)
[2023-07-05] MEDS: Ondansetron 4 MG/2 ML Vial IV (20:08)
[2023-07-05] MEDS: 0.9% Saline Lock 10 ML Syringe IV (20:08)
[2023-07-06] MEDS: Baclofen 10 MG Tablet 40 MG PO ×5 (00:36→22:03)
[2023-07-06] MEDS: HYDROmorphone 0.5 MG/0.5 ML SYRINGE IV ×5 (02:08→21:59)
[2023-07-06] MEDS: 0.9% Saline Lock 10 ML Syringe IV ×5 (02:09→22:13)
[2023-07-06 05:45] VITALS: BP 110/64; PULSE 60; RESP 14; TEMP 36.6; O2SAT 96
[2023-07-06 06:00] VITALS: BMI 41.5
[2023-07-06] MEDS: Piperacil/Tazobactam 3.375 GM in 0.9% Normal Saline (50mL MB+) 50 ML IV ×3 (06:15→21:55)
[2023-07-06] MEDS: Gabapentin 800 MG Tablet 1600 MG PO ×3 (06:16→21:58)
[2023-07-06] MEDS: Levothyroxine 75 MCG Tablet PO (06:16)
[2023-07-06 07:59] LABS: Absolute Lymphocyte Count 1.79 X10^3/uL (0.83-4.51); Absolute Neutrophil Count 5.5 X10^3/uL (2.0-7.7); Basophil# 0.07 X10^3/uL; Basophil% 0.8 % (0-1); Eosinophil# 0.33 X10^3/uL; Hematocrit 37.4 % (37-47); Hemoglobin 11.5 g/dL (12.0-15.0); Lymphocyte # 1.79 X10^3/ul (0.83-4.51); Lymphocyte % 21.7 % (19-41); Mean Corp Hgb Conc 30.7 g/dL (32-36); Mean Corpuscular Hgb 25.4 pg (27.0-32.0); Mean Corpuscular Volume 82.6 fL (81-99); Mean Platelet Vol. 9.3 fl (6.2-12.0); Monocyte# 0.54 X10^3/uL; Monocyte% 6.5 % (0-10); NRBC Flagged by Analyzer 0 % (0-5); Neutrophil # 5.51 X10^3/uL (2.7-7.7); Neutrophil % 66.8 % (47-70); Platelet Count 282 K/mm3 (150-450); RBC Distribution Width CV 15.8 % (11.6-14.6); RBC Distribution Width SD 47.5 fl (35.1-43.9); Red Blood Count 4.53 M/mm3 (4.2-5.4); White Blood Count 8.3 K/mm3 (4.4-11.0)
[2023-07-06 08:02] VITALS: BP 175/94; PULSE 74; RESP 16; TEMP 36.6; O2SAT 97
[2023-07-06 08:26] LABS: ALB/GLOB Ratio 0.6 RATIO (0.9-2.4); AST(SGOT) 35 U/L (15-37); Alanine Aminotransfer ALT/SGPT 42 U/L (13-56); Alkaline Phosphatase 72 U/L (45-117); Anion Gap 5 (5-15); BUN 9 mg/dL (7-18); BUN/Creat Ratio 34.5 RATIO (10-20); Calcium,Total 9.5 mg/dL (8.5-10.1); Chloride 110 mmol/L (98-107); Creatinine, Serum 0.26 mg/dL (0.55-1.02); EST Glomerular Filtration Rate 295 mL/min (>60); Est Glom Filt Rate - Afr Amer 356 mL/min (>60); Estimated Creatinine Clearance 318.08 ml/min; Globulin 4.9 g/dL (2.2-4.2); Glucose 92 mg/dL (74-106); Potassium 3.5 mmol/L (3.5-5.1); Protein, Total 7.9 g/dL (6.4-8.2); Sodium Level 141 mmol/L (136-145)
[2023-07-06] MEDS: busPIRone 5 MG Tablet 10 MG PO ×2 (09:31→22:01)
[2023-07-06] MEDS: Miconazole Nitrate 43 GM Bottle 1 APPLIC TOPICAL ×2 (09:32→21:59)
[2023-07-06] MEDS: Tolterodine Tartrate 4 MG CAP.SA PO (09:32)
[2023-07-06] MEDS: Acetaminophen 325 MG Tablet 650 MG PO ×2 (09:33→18:26)
--- NOTE | 2023-07-06 10:25 | PN.ID_ITS ---
Physical Exam Narrative C/o moderate abd pain, no fever, no back pain Const alert and no apparent distress Resp normal air movement and clear to auscultation bilaterally Cardio regular rate and regular rhythm GI soft to palpation and non-distended Palpation: tender Skin no rashes or lesions noted ID ID: Route of nutrition/ use of supplements: [] Nutritional Intake: [] IV Site: [] Mccarthy Catheter: [] Assessment & Plan Assessment/Plan (1) VRE infection (vancomycin resistant Enterococcus): (2) UTI (urinary tract infection): QUALIFIERS: Urinary tract infection type: acute cystitis Hematuria presence: without hematuria Qualified Code(s): N30.00 - Acute c ystitis without hematuria PLAN: Ucx with enterococcus, PsA x2, GNR, proteus. H/o VRE. Will stop linezolid, cont zosyn. Will order midline. With worsened abd pain, will check CT. Will follow
--- NOTE | 2023-07-06 10:25 | CT_ITS ---
STUDY: CT ABDOMEN AND PELVIS WITH AND WITHOUT CONTRAST REASON FOR EXAM: Female, 48 years old. Diffuse abdominal pain. UTI and sepsis. Suprapubic catheter. The patient is paraplegic. RADIATION DOSAGE (If Supplied By Facility): CTDIvol = ( 34.07 ) mGy, DLP = ( 4113.18 ) mGycm TECHNIQUE: Transaxial images were obtained from the dome of the diaphragm to the symphysis pubis without oral contrast. IV 100mL Isovue-370 was administered. Sagittal and coronal images were reconstructed. Individualized dose optimization techniques were used for this CT. COMPARISON: Comparison is made with prior study dated November 09, 2022. FINDINGS: Focal infiltrate in the posterior medial segment of the left lower lobe. Minimal increased markings at the right lung base suggestive of a atelectasis and/or scarring. The visualized portions of the heart are within normal limits. There is decreased attenuation of the liver consistent with steatosis. Questionable tiny gallstones along the dependent portion of the gallbladder lumen. Normal spleen. Normal pancreas. Normal bilateral adrenal glands. Normal right kidney. Normal left kidney. Normal visualized stomach. Normal small intestine. Normal colon. The appendix is visualized and appears normal. Normal abdominal aorta. Normal inferior vena cava. Normal retroperitoneum. A suprapubic catheter is seen within the urinary bladder. Urinary bladder is empty. Multiple bladder calculi are seen. There is absence of the uterus consistent with a prior hysterectomy. Normal abdominal wall. There is evidence of spina bifida. Marked degree of levoconvex scoliosis. Prior pinning of the proximal left femur. As again, there is evidence of erosive changes of the right hip joint with a surrounding fluid suggestive of a joint effusion. Inflammatory processes should be pulled back. CT/CT Abd/Pelvis W/WO Contrast IMPRESSION: Multiple stones are seen within the urinary bladder and urethra. A catheter seen within a decompressed urinary bladder. Possible tiny gallstones. Left basilar infiltrate. Findings suggestive of a linear scarring and/or atelectasis at the right lung base. Stable appearance of the right hip joint with fluid and erosive changes of the femur. Electronically Signed: Roosevelt Galvez MD at 11:35 EST ,
[2023-07-06] MEDS: Vibegron 75 MG TABLET PO (11:42)
[2023-07-06] MEDS: Potassium Chloride Oral Tablet 10 MEQ PO (11:42)
[2023-07-06] MEDS: Cholecalciferol (VIT D3) 25 MCG TABLET (1,000 UNITS) 50 MCG PO (11:43)
[2023-07-06] MEDS: Pantoprazole Sodium 20 MG Tablet PO (11:43)
[2023-07-06] MEDS: Menthol/Lanolin/Calamine/Znox 113 GM Tube 1 APPLIC TOPICAL ×2 (13:35→21:59)
--- NOTE | 2023-07-06 13:48 | PCM.OP.PRO ---
Procedure Report Date of Procedure: 07/06/23 Assessment & Plan Assessment/Plan (1) VRE infection (vancomycin resistant Enterococcus): (2) UTI (urinary tract infection): QUALIFIERS: Urinary tract infection type: acute cystitis Hematuria presence: without hematuria Qualified Code(s): N30.00 - Acute cystitis without hematuria PLAN: Midline insertion in right basilic: Patient identity was verified with two patient identifiers. Hands were sanitized. The patient was positioned supine with right arm at 90 degrees. The patient's upper arm vasculature was assessed using ultrasound, and the right basilic vein was externally marked. An external measurement was obtained of 14 cm. Cap, mask, and prep gloves were donned. The underdrape was placed under the patient's arm. The site was prepped with chlorhexidine, and tourniquet was loosely applied. Prep gloves were discarded, and hands were sanitized. The sterile kit was opened with additional supplies dropped in. Sterile gown and gloves were donned, and the patient was draped. The sterile kit was assembled with all needle, introducer, connector, and catheter flushed with sterile normal saline. The marked site of insertion was anesthetized with 1% lidocaine. Patient tolerated well. The right basilic vein was then accessed using ultrasound guidance and guidewire was inserted to safety ethel. The tourniquet was released. The access needle was removed while securing the guidewire in place. The site was again anesthetized with 1% lidocaine, prior to insertion of introducer sheath and dilator. Patient tolerated well. The catheter was trimmed to a length of 14 cm, and a flushed needleless connector was attached. The catheter was then inserted through the introducer sheath, slowly. There was no resistance on insertion. The introducer sheath was retracted and peeled away, incrementally, while keeping the catheter secured. The catheter was fully inserted leaving 0 cm external. Blood return was verified and the midline was flushed with sterile normal saline in a pulsatile fashion. Total sterile flushes used for the insertion was to 10 ml syringes, one from the kit. Finally, the insertion site was cleaned with chlorhexidine, and the catheter was secured using a StatLock. The site was covered with a Tegaderm CHG Dressing. Baseline arm circumference was obtained at the insertion site and measured 46 cm. The primary and charge nurse are aware that the midline is ready for use. REF: [id number] LOT: [id number] Procedures Radiology Radiology Access Procedures: MIDL
[2023-07-06 14:00] VITALS: BP 127/79; PULSE 68; RESP 16; TEMP 36.5; O2SAT 95
--- NOTE | 2023-07-06 15:03 | PCM.CONS.U ---
HPI Consult Data Date of Consult: 07/06/23 HPI Narrative Reason for Consultation: Bladder stones HPI Narrative: HENRIK GARCIA, is a 48 F who presents To the hospital just multiple medical problems she has a chronic suprapubic tube she has large stones in her bladder that are probably at night is for infection. I put her on the schedule for tomorrow under general anesthesia if okay with hospitalist service for cystoscopy laser lithotripsy of stones in her bladder and placement of a new suprapubic catheter. And peeled midnight will get consent from the patient and add on for tomorrow for the operating room to laser the bladder stones. 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 Hx: UTI (urinary tract infection) Hypothyroidism Left femoral shaft fracture Malnutrition of mild degree Neuromuscular dysfunction of bladder Paraplegia Pre-operative cardiovascular exam, new EKG abnormalities c/w ischemia Quadriparesis Right ischial pressure sore, stage 4 Spinal cord injury (2010) Suprapubic catheter Home Medications levothyroxine 75 mcg tablet 75 mcg PO DAILY hypothyroidism 05/28/15 [History Last Taken 04/22/21] duloxetine 60 mg capsule,delayed release 90 mg PO QHS depression 08/21/15 [History Last Taken 04/21/21] baclofen 10 mg tablet 40 mg PO Q6H SPASMS 08/16/16 [History Last Taken 04/22/21] acetaminophen 325 mg tablet 650 mg PO Q4H PRN PRN Pain or fever 03/01/18 [History Last Taken 04/21/21] bisacodyl 10 mg rectal suppository 10 mg [place] QHS PRN Constipation 03/01/18 [History Last Taken 04/21/21] omeprazole 20 mg capsule,delayed release 20 mg PO LUNCH GERD 03/01/18 [History Last Taken 04/22/21] furosemide 40 mg tablet 40 mg PO BREAKFAST edema 05/26/18 [History Last Taken 04/22/21] sennosides 8.6 mg tablet 17.2 mg PO BID constipation 08/16/18 [History Last Taken 04/22/21] cholecalciferol (vitamin D3) 50 mcg (2,000 unit) capsule 2,000 unit PO LUNCH SUPPLEMENT 08/08/19 [History Last Taken 04/22/21] polyethylene glycol 3350 17 gram oral powder packet 17 gm PO QHS constipation 08/08/19 [History Last Taken 04/21/21] docusate sodium 100 mg capsule (Colace) 200 mg PO BID constipation 10/11/20 [History Last Taken 04/21/21] furosemide 20 mg tablet 20 mg PO LUNCH edema 04/21/21 [History Last Taken 04/22/21] gabapentin 800 mg tablet 1,600 mg PO TID NEUROPATHY 04/22/21 [History Last Taken 04/22/21] isosorbide mononitrate 30 mg tablet,extended release 24 hr 30 mg PO QHS angina 04/22/21 [History Last Taken 04/21/21] oxybutynin chloride 10 mg tablet,extended release 24 hr 30 mg PO DAILY Bladder spasms 04/22/21 [History Last Taken 04/22/21] potassium chloride 10 mEq capsule,extended release 10 meq PO LUNCH hypokalemia 04/22/21 [History Last Taken 04/22/21] phenazopyridine 200 mg tablet (Pyridium) 200 mg PO TID PRN Bladder Spasms 05/27/21 [History Last Taken Unknown] loperamide 2 mg tablet 1 mg PO Q4H PRN Diarrhea 06/03/22 [History Last Taken Unknown] magnesium hydroxide 400 mg/5 mL oral suspension (Milk of Magnesia) 30 ml PO DAILY PRN Constipation 06/03/22 [History Last Taken Unknown] melatonin 5 mg tablet 5 mg PO QHS insomnia 06/03/22 [History Last Taken Unknown] mirtazapine 30 mg tablet 15 mg PO QHS insomnia 06/03/22 [History Last Taken Unknown] ondansetron HCl 4 mg tablet 4 mg PO Q4H PRN Nausea 06/03/22 [History Last Taken Unknown] simethicone 80 mg tablet 80 mg PO DAILY PRN Gastric Reflux 06/03/22 [History Last Taken Unknown] buprenorphine 15 mcg/hour weekly transdermal patch (Butrans) 20 mcg transdermal Q7D pain 09/12/22 [History Last Taken 07/01/23] cetirizine 10 mg tablet 10 mg PO QPM allergies 09/12/22 [History Last Taken Unknown] nystatin 100,000 unit/gram topical powder (Nyamyc) 1 applic topical BID #15 grams 11/16/22 [Rx Last Taken Unknown] benzonatate 100 mg capsule 100 mg PO Q6H PRN 07/02/23 [History Last Taken Unknown] buspirone 10 mg tablet 10 mg PO BID 07/02/23 [History Last Taken Unknown] cetirizine 10 mg capsule (All Day Allergy (cetirizine)) 10 mg PO DAILY PRN allergies 07/02/23 [History Last Taken Unknown] diphenhydramine HCl 25 mg tablet (Allergy (diphenhydramine)) 50 mg PO Q8H PRN itching 07/02/23 [History Last Taken Unknown] ibuprofen 200 mg tablet (Advil) 400 mg PO Q6H 07/02/23 [History Last Taken Unknown] linaclotide 145 mcg capsule (Linzess) 145 mcg PO LUNCH constipation 07/02/23 [History Last Taken Unknown] mirabegron 25 mg tablet,extended release 24 hr (Myrbetriq) 25 mg PO LUNCH 07/02/23 [History Last Taken Unknown] paroxetine HCl 10 mg tablet 20 mg PO QHS 07/02/23 [History Last Taken Unknown] trazodone 50 mg tablet 50 mg PO QHS 07/02/23 [History Last Taken Unknown] piperacillin-tazobactam 3.375 gram intravenous solution 3.375 g IV Q8H 4 days 07/06/23 [Rx Last Taken Unknown] Allergy/AdvReac Type Severity Reaction Status Date / Time apixaban [From Eliquis] Allergy Rash Verified 07/02/23 22:41 coconut oil Allergy cant breath Verified 07/02/23 22:41 mometasone furoate Allergy Rash Verified 07/02/23 22:41 [From Elocon] nitrofurantoin Allergy Unknown Verified 07/02/23 22:41 rivaroxaban [From Xarelto] Allergy Rash Verified 07/02/23 22:41 Sulfa (Sulfonamide Allergy Shortness Verified 07/02/23 22:41 Antibiotics) of breath Penicillins AdvReac NEEDS Verified 07/02/23 22:41 FOLLOW-UP Family History Mother Diabetes Grandfather CAD (coronary artery disease) Colon cancer Grandmother Breast cancer Aunt Ovarian cancer Surgical History History of tracheostomy (2010) Social History Smoking Status: Never smoker Lab / Micro Data 07/06/23 07:20 07/06/23 07:20 Labs: Laboratory Results - last 24 hr 07/06/23 07:20: WBC 8.3, RBC 4.53, Hgb 11.5 L, Hct 37.4, MCV 82.6, MCH 25.4 L, MCHC 30.7 L, RDW Std Deviation 47.5 H, RDW Coeff of Juan Antonio 15.8 H, Plt Count 282, MPV 9.3, Immature Gran % (Auto) 0.200, Neut % (Auto) 66.8, Lymph % (Auto) 21.7, [place] % (Auto) 6.5, Eos % (Auto) 4.0, Baso % (Auto) 0.8, Absolute Neuts (auto) 5.5, Absolute Lymphs (auto) 1.79, Nucleated RBC % 0, Sodium 141, Potassium 3.5, Chloride 110 H, Carbon Dioxide 26.0, Anion Gap 5, BUN 9, Creatinine 0.26 L, Estim Creat Clear Calc 318.08, Est GFR (MDRD) Af Amer 356, Est GFR (MDRD) Non-Af 295, BUN/Creatinine Ratio 34.5 H, Glucose 92, Calcium 9.5, Total Bilirubin 0.40, AST 35, ALT 42, Alkaline Phosphatase 72, Total Protein 7.9, Albumin 3.0 L, Globulin 4.9 H, Albumin/Globulin Ratio 0.6 L Micro: Microbiology 07/03/23 02:05 Urine Catheter - Mccarthy Urine Culture - Preliminary Pseudomonas aeruginosa Pseudomonas aeruginosa#2 Enterococcus faecalis Gram negative luann 07/02/23 23:10 Urine, Catheterized Urine Culture - Final Proteus mirabilis Enterococcus faecalis 07/02/23 22:45 Blood Culture (Wb) - Arm Left Blood Culture - Preliminary No growth in 48 hours. 07/02/23 23:15 Blood Culture (Wb) - Arm Left Blood Culture - Preliminary No growth in 48 hours. Imagaing Radiology Impression Brain MRI 07/05/23 10:00 IMPRESSION: Mild zones of increased T2 FLAIR signal in the bilateral posterior parietal and temporal occipital lobes, which can be seen with acute hypertensive encephalopathy, status epilepticus, or hypoglycemia. No evidence for acute infarct. Very mild chronic white matter changes. Electronically Signed: Mary Keller MD at 15:56 EST , KUB X-Ray 07/05/23 16:30 IMPRESSION: Normal x-ray examination of the abdomen and pelvis. Electronically Signed: David Moreno MD at 17:43 EST , Abdomen/Pelvis CT 07/06/23 10:25 IMPRESSION: Multiple stones are seen within the urinary bladder and urethra. A catheter seen within a decompressed urinary bladder. Possible tiny gallstones. Left basilar infiltrate. Findings suggestive of a linear scarring and/or atelectasis at the right lung base. Stable appearance of the right hip joint with fluid and erosive changes of the femur. Electronically Signed: Roosevelt Galvez MD at 11:35 EST ,
--- NOTE | 2023-07-06 16:25 | PN.HOSP_ITS ---
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 (07/03/23) Objective Data Objective Data Vital Signs: Vital Signs Temp Pulse Resp BP Pulse Ox O2 Del Method O2 Flow Rate 97.7 F L 68 16 127/79 H 95 Room Air 2 07/06/23 14:00 07/06/23 14:00 07/06/23 14:00 07/06/23 14:00 07/06/23 14:00 07/06/23 14:16 07/06/23 04:36 Oxygen Flow Rate (L/min) 2 Oxygen Delivery Method Room Air Weight: 243 lb 6.245 oz Body Mass Index (BMI) 41.5 Intake & Output: Intake and Output for Last 24 Hours 07/04/23 07/05/23 07/06/23 23:59 23:59 23:59 Intake Total 1250 / 1250 1290 / 1530 580 / 580 Output Total 1375 / 1725 2025 / 2225 800 / 800 Balance -125 / -475 -735 / -695 -220 / -220 Lab / Micro Data 07/06/23 07:20 07/06/23 07:20 Labs: Laboratory Results - last 24 hr 07/06/23 07:20: WBC 8.3, RBC 4.53, Hgb 11.5 L, Hct 37.4, MCV 82.6, MCH 25.4 L, MCHC 30.7 L, RDW Std Deviation 47.5 H, RDW Coeff of Juan Antonio 15.8 H, Plt Count 282, MPV 9.3, Immature Gran % (Auto) 0.200, Neut % (Auto) 66.8, Lymph % (Auto) 21.7, Hendricks % (Auto) 6.5, Eos % (Auto) 4.0, Baso % (Auto) 0.8, Absolute Neuts (auto) 5.5, Absolute Lymphs (auto) 1.79, Nucleated RBC % 0, Sodium 141, Potassium 3.5, Chloride 110 H, Carbon Dioxide 26.0, Anion Gap 5, BUN 9, Creatinine 0.26 L, Estim Creat Clear Calc 318.08, Est GFR (MDRD) Af Amer 356, Est GFR (MDRD) Non-Af 295, BUN/Creatinine Ratio 34.5 H, Glucose 92, Calcium 9.5, Total Bilirubin 0.40, AST 35, ALT 42, Alkaline Phosphatase 72, Total Protein 7.9, Albumin 3.0 L, Globulin 4.9 H, Albumin/Globulin Ratio 0.6 L Micro: Microbiology 07/03/23 02:05 Urine Catheter - Mccarthy Urine Culture - Preliminary Pseudomonas aeruginosa Pseudomonas aeruginosa#2 Enterococcus faecalis Gram negative luann 07/02/23 23:10 Urine, Catheterized Urine Culture - Final Proteus mirabilis Enterococcus faecalis 07/02/23 22:45 Blood Culture (Wb) - Arm Left Blood Culture - Preliminary No growth in 48 hours. 07/02/23 23:15 Blood Culture (Wb) - Arm Left Blood Culture - Preliminary No growth in 48 hours. 07/02/23 22:55 Mucosa - Nose SARS-CoV-2, Influenza & RSV (PCR) - Final Radiography Diagnostic Testing: Radiology Impression KUB X-Ray 07/05/23 16:30 IMPRESSION: Normal x-ray examination of the abdomen and pelvis. Electronically Signed: David Moreno MD at 17:43 EST , Abdomen/Pelvis CT 07/06/23 10:25 IMPRESSION: Multiple stones are seen within the urinary bladder and urethra. A catheter seen within a decompressed urinary bladder. Possible tiny gallstones. Left basilar infiltrate. Findings suggestive of a linear scarring and/or atelectasis at the right lung base. Stable appearance of the right hip joint with fluid and erosive changes of the femur. Electronically Signed: Roosevelt Galvez MD at 11:35 EST , Physical Exam Narrative Seen and examined. Patient looks better as compared to yesterday still has abdominal pain. No fever. KUB reviewed. CT abdomen was ordered further. It shows bladder and ureteral stones. Has indwelling suprapubic catheter. Having bowel movement. Physical exam: General: Awake. Oriented x3, Cooperative, morbid obesity BMI 41.2 kg square meter HEENT: Atraumatic, PERRLA, EOMI, Normocephalic Oral: Oral mucosa dry. No Gingival or Mucosal Lesions/ Ulcerations Neck: Supple, No JVD, Negative Carotid Bruits Lungs: Air entry diminished in bilateral lung bases. No crepitation/rhonchi Cardiovascular: Regular rate, Regular Rhythm, Normal S1, Normal S2, No murmurs Abdomen: Bowel Sounds hyper. Soft, mild tenderness but no appreciable : Indwelling suprapubic catheter. No renal angle tenderness. No suprapubic tenderness. Extremities: Slight edema, Capillary Refill Less than 3 Seconds Skin: No rashes, No breakdown Musculoskeletal: Functional quadriplegia. Could not move her legs, chronic paraplegia. No Tenderness to Palpation of Joints or Extremities Neurological: Cranial nerves II-XII grossly intact, chronic neurological deficit. Psych/Mental Status: Flat affect. Patient more quiet today as compared to yesterday Assessment & Plan Assessment/Plan (1) Seizure: PLAN: Plan HENRIK GARCIA, is a 48 F was admitted on 07/02/2023 from [facility] for altered mental status. Per daughter she was at her baseline 6 PM the previous evening, brought to ED and had seizure-like activity and was also found to have evidence of UTI and concern for sepsis. Patient continued on Zosyn and linezolid and s tarted on Keppra with EEG ordered and [facility] teleneurology consult. 1. Sepsis secondary to Acute Cystitis; without hematuria in the setting of C7 spinal cord injury with quadriplegia, neurogenic bladder and suprapubic catheter with frequent UTI's - Admit to ICU for treatment for treatment of sepsis protocol under contact precautions. Continue IV Zosyn begun in the ER and continue Linezolid as previous. Give Tylenol prn for pain or fever. 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 still. Lactic acid improved from 5.7 to 1.2. Infectious diseases consulted. -07/04: Patient on broad-spectrum antibiotics, urine culture with Proteus, ID consult pending, blood cultures pending 07/05: Urine culture shows multiple organisms Pseudomonas more than 100,000 co lonies GNR, GPC possible Enterococcus and GNR 2 suggestive of contamination. 07/06: CT abdomen was done. It shows large bladder stone and multiple other stones in the bladder and urethra. Patient also has a midline inserted in right basilic vein. Chronic suprapubic indwelling catheter. Plan for cystoscopy with laser lithotripsy and placement of new suprapubic catheter tomorrow under general anesthesia. Patient on Tolterodine and Vibregron 2. Septic/metabolic encephalopathy arising from #1 - Continue supportive care and monitor for improvement. -07/03: Treat underlying etiology, patient still confused -07/04: Patient on broad-spectrum antibiotics, underlying etiology being treated, patient significantly improving with treatment of infection 07/05: Patient screaming and moaning. She said her abdomen is hurting all over but could not give detailed history of characteristic of abdominal pain. On exam, abdomen feels soft with increased bowel sounds. No guarding/rigidity. Started on Seroquel. 3. Suspected absence-type seizure in the ER requiring treatment with IV Ativan compounding #1 & #2 - Check EEG to confirm suspicion. Start Keppra 1g IV BID. Finally, we will consult [facility] telene[facility] with help appreciated in advance. -07/03: On Keppra, teleneurology consult, EEG ordered. CT in ED with acute left sphenoid sinusitis but otherwise unremarkable -07/04: Patient evaluated by teleneurology, EEG with mild to moderate encephalopathy with no seizure activity, neuro recommended to pursue MRI and discontinue Keppra 07/05 patient went for MRI 4. New onset abdominal pain: Abdomen is soft with generalized abdominal pain no other specific tender points. Pain medication given. Had one-time loose bowel movement. Monitor if abdominal pain does not get better will need imaging CT abdomen and pelvis. 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 Wound RN to see patient on-rounds in the AM with consult appreciated in advance. -07/03: Local wound care, cont linezolid -07/04: Wound care consult, ID consult, continue present management 5. Hypothyroidism - Resume Synthroid as previous and check TSH. -07/03: TSH within normal limits 6. Morbid obesity; with BMI of 42.7 this admission - Weight loss will be recommended but is unlikely given her paralysis. -07/03: Updated BMI 40.9 7. History of WPW syndrome - Noted. 8. History of RLE DVT; with listed allergies to Apixaban & Xarelto (rash) - Noted. 9. History of Left femur fracture - Noted. 10. History of cocaine and heroin abuse - Noted. 11. Depression with anxiety - Continue home medications as previous. 12. GERD - Resume PPI as previous. 13. Chronic headaches - Stable. 14. Chronic pain; on Buprenorphine patch - Continue Buprenorphine patch as previous. 15. DVT prophylaxis - Lovenox 40 mg sq BID Charges/Coding Visit Charges Inpatient E&M: 68705 Subs Hosp L2
[2023-07-06 20:00] VITALS: BP 110/81; PULSE 76; RESP 18; TEMP 36.1; O2SAT 100
[2023-07-06] MEDS: DiphenhydrAMINE 25 MG Capsule 50 MG PO (21:58)
[2023-07-06] MEDS: QUEtiapine 25 MG Tablet PO (22:00)
[2023-07-06] MEDS: Paroxetine 20 MG Tablet PO (22:01)
[2023-07-06] MEDS: MELATONIN 10 MG TABLET 5 MG PO (22:02)
[2023-07-06] MEDS: DULoxetine Hcl 30 MG Capsule 90 MG PO (22:03)
[2023-07-07] VITALS (12 sets, daily range): BP systolic 127–189; BP diastolic 76–119; PULSE 75–114; RESP 16–18; TEMP 36.3–36.6; O2SAT 95–100; BMI 41.5
[2023-07-07] MEDS: Piperacil/Tazobactam 3.375 GM in 0.9% Normal Saline (50mL MB+) 50 ML IV ×3 (05:40→20:34)
[2023-07-07 07:58] LABS: Absolute Lymphocyte Count 2.27 X10^3/uL (0.83-4.51); Absolute Neutrophil Count 3.5 X10^3/uL (2.0-7.7); Basophil# 0.04 X10^3/uL; Basophil% 0.6 % (0-1); Eosinophil# 0.32 X10^3/uL; Eosinophils% 4.8 % (0-5); Hematocrit 36.3 % (37-47); Hemoglobin 10.9 g/dL (12.0-15.0); Lymphocyte # 2.27 X10^3/ul (0.83-4.51); Lymphocyte % 33.9 % (19-41); Mean Corpuscular Hgb 25.4 pg (27.0-32.0); Mean Corpuscular Volume 84.6 fL (81-99); Mean Platelet Vol. 9.6 fl (6.2-12.0); Monocyte# 0.51 X10^3/uL; Monocyte% 7.6 % (0-10); NRBC Flagged by Analyzer 0 % (0-5); Neutrophil # 3.53 X10^3/uL (2.7-7.7); Neutrophil % 52.7 % (47-70); POSITIVE COUNT YES; Platelet Count 270 K/mm3 (150-450); RBC Distribution Width CV 16.1 % (11.6-14.6); RBC Distribution Width SD 49.4 fl (35.1-43.9); Red Blood Count 4.29 M/mm3 (4.2-5.4); White Blood Count 6.7 K/mm3 (4.4-11.0)
[2023-07-07 08:28] LABS: Differential Indicated SCAN CRITERIA MET
[2023-07-07 08:32] LABS: ALB/GLOB Ratio 0.6 RATIO (0.9-2.4); AST(SGOT) 27 U/L (15-37); Alanine Aminotransfer ALT/SGPT 43 U/L (13-56); Alkaline Phosphatase 72 U/L (45-117); Anion Gap 4 (5-15); BUN 11 mg/dL (7-18); BUN/Creat Ratio 42.1 RATIO (10-20); Calcium,Total 8.7 mg/dL (8.5-10.1); Chloride 109 mmol/L (98-107); Creatinine, Serum 0.26 mg/dL (0.55-1.02); EST Glomerular Filtration Rate 295 mL/min (>60); Est Glom Filt Rate - Afr Amer 356 mL/min (>60); Estimated Creatinine Clearance 317.09 ml/min; Globulin 4.8 g/dL (2.2-4.2); Glucose 117 mg/dL (74-106); Potassium 3.7 mmol/L (3.5-5.1); Protein, Total 7.8 g/dL (6.4-8.2); Sodium Level 137 mmol/L (136-145)
[2023-07-07] MEDS: HYDROmorphone 0.5 MG/0.5 ML SYRINGE IV (08:36)
[2023-07-07] MEDS: 0.9% Saline Lock 10 ML Syringe IV (08:36)
[2023-07-07] MEDS: Docusate Sodium 100 MG Capsule 200 MG PO (08:38)
[2023-07-07] MEDS: busPIRone 5 MG Tablet 10 MG PO ×2 (08:38→20:14)
[2023-07-07] MEDS: Miconazole Nitrate 43 GM Bottle 1 APPLIC TOPICAL ×2 (08:39→20:18)
[2023-07-07] MEDS: Tolterodine Tartrate 4 MG CAP.SA PO (08:39)
[2023-07-07] MEDS: Senna Tablet 1 TABLET PO ×2 (08:40→20:17)
[2023-07-07] MEDS: Pantoprazole Sodium 20 MG Tablet PO (08:46)
[2023-07-07] MEDS: Ondansetron 4 MG/2 ML Vial IV (09:19)
[2023-07-07] MEDS: Acetaminophen 325 MG Tablet 650 MG PO (09:24)
[2023-07-07] MEDS: 0.9% Normal Saline (1000mL) 1,000 ML 15 ML IV (13:17)
--- NOTE | 2023-07-07 13:58 | PCM.PN.HOSP ---
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 (07/03/23) Objective Data Objective Data Vital Signs: Vital Signs Temp Pulse Resp BP Pulse Ox O2 Del Method O2 Flow Rate 97.8 F 75 16 163/110 H 97 Room Air 2 07/07/23 08:00 07/07/23 08:00 07/07/23 08:00 07/07/23 08:00 07/07/23 08:00 07/07/23 08:00 07/06/23 04:36 Oxygen Flow Rate (L/min) 2 Oxygen Delivery Method Room Air Weight: 242 lb 1.081 oz Body Mass Index (BMI) 41.5 Intake & Output: Intake and Output for Last 24 Hours 07/05/23 07/06/23 07/07/23 23:59 23:59 23:59 Intake Total 1290 / 1530 630 / 870 340 / 340 Output Total 2025 / 2225 800 / 1100 550 / 550 Balance -735 / -695 -170 / -230 -210 / -210 Lab / Micro Data 07/07/23 06:55 07/07/23 06:55 Labs: Laboratory Results - last 24 hr 07/07/23 06:55: WBC 6.7, RBC 4.29, Hgb 10.9 L, Hct 36.3 L, MCV 84.6, MCH 25.4 L, MCHC 30.0 L, RDW Std Deviation 49.4 H, RDW Coeff of Juan Antonio 16.1 H, Plt Count 270, MPV 9.6, Immature Gran % (Auto) 0.400, Neut % (Auto) 52.7, Lymph % (Auto) 33.9, Gulf % (Auto) 7.6, Eos % (Auto) 4.8, Baso % (Auto) 0.6, Absolute Neuts (auto) 3.5, Absolute Lymphs (auto) 2.27, Nucleated RBC % 0, Sodium 137, Potassium 3.7, Chloride 109 H, Carbon Dioxide 24.0, Anion Gap 4 L, BUN 11, Creatinine 0.26 L, Estim Creat Clear Calc 317.09, Est GFR (MDRD) Af Amer 356, Est GFR (MDRD) Non-Af 295, BUN/Creatinine Ratio 42.1 H, Glucose 117 H, Calcium 8.7, Total Bilirubin 0.30, AST 27, ALT 43, Alkaline Phosphatase 72, Total Protein 7.8, Albumin 3.0 L, Globulin 4.8 H, Albumin/Globulin Ratio 0.6 L Micro: Microbiology 07/03/23 02:05 Urine Catheter - Mccarthy Urine Culture - Final Pseudomonas aeruginosa Enterococcus faecalis Proteus mirabilis 07/02/23 23:10 Urine, Catheterized Urine Culture - Final Proteus mirabilis Enterococcus faecalis 07/02/23 22:45 Blood Culture (Wb) - Arm Left Blood Culture - Preliminary No growth in 48 hours. 07/02/23 23:15 Blood Culture (Wb) - Arm Left Blood Culture - Preliminary No growth in 48 hours. 07/02/23 22:55 Mucosa - Nose SARS-CoV-2, Influenza & RSV (PCR) - Final Physical Exam Narrative Seen and examined. Patient is more awake and complaining of upper abdominal pain. CT abdomen reported bladder stone but abdominal pain not consistent with the CT report. CT abdomen/pelvis shows bladder and ureteral stones. Has indwelling suprapubic catheter. Had bowel movement. Physical exam: General: Awake. Oriented x3, Cooperative, morbid obesity BMI 41.2 kg square meter HEENT: Atraumatic, PERRLA, EOMI, Normocephalic Oral: Oral mucosa dry. No Gingival or Mucosal Lesions/ Ulcerations Neck: Supple, No JVD, Negative Carotid Bruits Lungs: Air entry diminished in bilateral lung bases. No crepitation/rhonchi Cardiovascular: Regular rate, Regular Rhythm, Normal S1, Normal S2, No murmurs Abdomen: Bowel Sounds present soft, mild upper abdominal tenderness, no guarding/rigidity. No rebound tenderness. : Indwelling suprapubic catheter. No renal angle tenderness. No suprapubic tenderness. Extremities: Slight edema, Capillary Refill Less than 3 Seconds Skin: No rashes, No breakdown Musculoskeletal: Functional quadriplegia. Could not move her legs, chronic paraplegia. No Tenderness to Palpation of Joints or Extremities Neurological: Cranial nerves II-XII grossly intact, chronic neurological deficit. Psych/Mental Status: Flat affect. Patient more quiet today as compared to yesterday Assessment & Plan Assessment/Plan (1) Seizure: PLAN: Plan HENRIK RADHA, is a 48 F was admitted on 07/02/2023 from [facility] for altered mental status. Per daughter she was at her baseline 6 PM the previous evening, brought to ED and had seizure-like activity and was also found to have evidence of UTI and concern for sepsis. Patient continued on Zosyn and linezolid and started on Keppra with EEG ordered and [facility] teleneurology consult. 1. Sepsis secondary to Acute Cystitis; without hematuria in the setting of C7 spinal cord injury with quadriplegia, neurogenic bladder and suprapubic catheter with frequent UTI's - Admit to ICU for treatment for treatment of sepsis protocol under contact precautions. Continue IV Zosyn begun in the ER and continue Linezolid as previous. Give Tylenol prn for pain or fever. 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 still. Lactic acid improved from 5.7 to 1.2. Infectious diseases consulted. -07/04: Patient on broad-spectrum antibiotics, urine culture with Proteus, ID consult pending, blood cultures pending 07/05: Urine culture shows multiple organisms Pseudomonas more than 100,000 colonies GNR, GPC possible Enterococcus and GNR 2 suggestive of contamination. 07/06: CT abdomen was done. It shows large bladder stone and multiple other stones in the bladder and urethra. Patient also has a midline inserted in right basilic vein. Chronic suprapubic indwelling catheter. Plan for cystoscopy with laser lithotripsy and placement of new suprapubic catheter tomorrow under general anesthesia. Patient on Tolterodine and Vibregron 07/07: Patient going for cystoscopy as mentioned above. 2. Septic/metabolic encephalopathy arising from #1 - Continue supportive care and monitor for improvement. -07/03: Treat underlying etiology, patient still confused -07/04: Patient on broad-spectrum antibiotics, underlying etiology being treated, patient significantly improving with treatment of infection 07/05: Patient screaming and moaning. She said her abdomen is hurting all over but could not give detailed history of characteristic of abdominal pain. On exam, abdomen feels soft with increased bowel sounds. No guarding/rigidity. Started on Seroquel. 07/07: Patient is more lucid and follows simple command. 3. Suspected absence-type seizure in the ER requiring treatment with IV Ativan compounding #1 & #2 - Check EEG to confirm suspicion. Start Keppra 1g IV BID. Finally, consult [facility] tel[facility] with help appreciated in advance. -07/03: On Keppra, teleneurology consult, EEG ordered. CT in ED with acute left sphenoid sinusitis but otherwise unremarkable -07/04: Patient evaluated by teleneurology, EEG with mild to moderate encephalopathy with no seizure activity, neuro recommended to pursue MRI and discontinue Keppra 07/05 patient went for MRI 07/07: MRI brain shows no evidence for acute infarct. Increased T2 flair signal in bilateral posterior parietal temporal and occipital lobes. 4. New onset abdominal pain: Abdomen is soft with generalized abdominal pain no other specific tender points. Pain medication given. Had one-time loose bowel movement. Patient having bowel movement. 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 Wound RN to see patient on-rounds in the AM with consult appreciated in advance. -07/03: Local wound care, cont linezolid -07/04: Wound care consult, ID consult, continue present management 5. Hypothyroidism - Resume Synthroid as previous and check TSH. -07/03: TSH within normal limits 6. Morbid obesity; with BMI of 42.7 this admission - Weight loss will be recommended but is unlikely given her paralysis. -07/03: Updated BMI 40.9 7. History of WPW syndrome - Noted. 8. History of RLE DVT; with listed allergies to Apixaban & Xarelto (rash) - Noted. 9. History of Left femur fracture - Noted. 10. History of cocaine and heroin abuse - Noted. 11. Depression with anxiety - Continue home medications as previous. 12. GERD - Resume PPI as previous. 13. Chronic headaches - Stable. 14. Chronic pain; on Buprenorphine patch - Continue Buprenorphine patch as previous. 15. DVT prophylaxis - Lovenox 40 mg sq BID Clinical Impression(s) from Imaging Studies Chest X-Ray 07/02/23 22:30 IMPRESSION: Poor inspiration with some bibasilar atelectasis. Cardiomegaly. Electronically Signed: Yuri Cerna MD at 23:56 EST , Brain CT 07/02/23 23:25 IMPRESSION: Normal unenhanced CT scan of the brain. Acute left sphenoid sinusitis Electronically Signed: Yuri Cerna MD at 23:45 EST , Brain MRI 07/05/23 10:00 IMPRESSION: Mild zones of increased T2 FLAIR signal in the bilateral posterior parietal and temporal occipital lobes, which can be seen with acute hypertensive encephalopathy, status epilepticus, or hypoglycemia. No evidence for acute infarct. Very mild chronic white matter changes. Electronically Signed: Mary Keller MD at 15:56 EST , KUB X-Ray 07/05/23 16:30 IMPRESSION: Normal x-ray examination of the abdomen and pelvis. Electronically Signed: David Moreno MD at 17:43 EST , Abdomen/Pelvis CT 07/06/23 10:25 IMPRESSION: Multiple stones are seen within the urinary bladder and urethra. A catheter seen within a decompressed urinary bladder. Possible tiny gallstones. Left basilar infiltrate. Findings suggestive of a linear scarring and/or atelectasis at the right lung base. Stable appearance of the right hip joint with fluid and erosive changes of the femur. Electronically Signed: Roosevelt Galvez MD at 11:35 EST , Charges/Coding Visit Charges Inpatient E&M: 07648 Subs Hosp L2
--- NOTE | 2023-07-07 15:39 | OP.PCM_ITS ---
Report of Operation Date of Procedure: 07/07/23 Pre-Operative Diagnosis: Bladder stones Post-Operative Diagnosis: Bladder stones Surgery/Procedure Performed:: Cystoscopy via an established suprapubic tube site and litholapaxy and laser of bladder stones greater than 5 cm in size Description of Surgical Findings:: Patient was taken back to the operating room at a smooth induction of anesthesia, she was taken back to the operating room where she was left supine on the table because of immobility put her in stirrups we took out the suprapubic catheter and then through the suprapubic site went in with a 26 [place] continuous-flow Olympus bipolar cystoscope with a laser sheath I then engaged the stones and laser lithotripsy took a long time to break the stones with laser lithotripsy and then Ellik out all the bladder stone pieces out of the bladder and continue lasering after about an hour and a half of lasering all the stones were taken care of flushed all the stones and then we placed a new 22 [place] catheter through the suprapubic site and placed to gravity drainage. She can continue with suprapubic catheter management as before her anesthetic was reversed taken back to PACU good good condition and successful removal of a si gnificant amount of stones that were accumulated within her bladder. Surgeon: Flaco Choi Type of Anesthesia: General Admit VTE Documentation VTE Present on Admission: No VTE Mechan Device Prophylaxis: SCD's VTE Pharm Prophylaxis ordered?: No
[2023-07-07] MEDS: Baclofen 10 MG Tablet 40 MG PO (18:13)
[2023-07-07] MEDS: Gabapentin 800 MG Tablet 1600 MG PO ×2 (18:13→20:17)
[2023-07-07] MEDS: MELATONIN 10 MG TABLET 5 MG PO (20:13)
[2023-07-07] MEDS: Polyethylene Glycol 3350 17 GM PACKET PO (20:16)
[2023-07-07] MEDS: Menthol/Lanolin/Calamine/Znox 113 GM Tube 1 APPLIC TOPICAL (20:18)
[2023-07-07] MEDS: Paroxetine 20 MG Tablet PO (20:18)
[2023-07-07] MEDS: DULoxetine Hcl 30 MG Capsule 90 MG PO (20:32)
[2023-07-07] MEDS: Buprenorphine 15 MCG PATCH.TDWK 1 PATCH TD (21:39)
[2023-07-08 00:25] VITALS: BP 122/79; PULSE 82; RESP 18; TEMP 36.4; O2SAT 98
[2023-07-08] MEDS: Baclofen 10 MG Tablet 40 MG PO ×3 (00:27→11:18)
[2023-07-08] MEDS: HYDROmorphone 0.5 MG/0.5 ML SYRINGE IV (00:33)
[2023-07-08] MEDS: 0.9% Saline Lock 10 ML Syringe IV ×2 (00:34→05:17)
[2023-07-08 04:19] VITALS: BMI 41.1
[2023-07-08] MEDS: Levothyroxine 75 MCG Tablet PO (05:12)
[2023-07-08] MEDS: Gabapentin 800 MG Tablet 1600 MG PO (05:12)
[2023-07-08] MEDS: Menthol/Lanolin/Calamine/Znox 113 GM Tube 1 APPLIC TOPICAL (05:12)
[2023-07-08] MEDS: Piperacil/Tazobactam 3.375 GM in 0.9% Normal Saline (50mL MB+) 50 ML IV (05:17)
[2023-07-08 05:21] VITALS: BP 134/79; PULSE 81; RESP 16; TEMP 36.4; O2SAT 98
[2023-07-08 07:10] LABS: Absolute Lymphocyte Count 1.94 X10^3/uL (0.83-4.51); Absolute Neutrophil Count 3.2 X10^3/uL (2.0-7.7); Basophil# 0.02 X10^3/uL; Basophil% 0.4 % (0-1); Hemoglobin 11.6 g/dL (12.0-15.0); Lymphocyte # 1.94 X10^3/ul (0.83-4.51); Lymphocyte % 34.4 % (19-41); Mean Corp Hgb Conc 30.5 g/dL (32-36); Mean Corpuscular Hgb 25.5 pg (27.0-32.0); Mean Corpuscular Volume 83.5 fL (81-99); Mean Platelet Vol. 9.2 fl (6.2-12.0); Monocyte# 0.43 X10^3/uL; Monocyte% 7.6 % (0-10); NRBC Flagged by Analyzer 0 % (0-5); Neutrophil # 3.21 X10^3/uL (2.7-7.7); Neutrophil % 56.9 % (47-70); Platelet Count 370 K/mm3 (150-450); RBC Distribution Width CV 15.9 % (11.6-14.6); RBC Distribution Width SD 48.1 fl (35.1-43.9); Red Blood Count 4.55 M/mm3 (4.2-5.4); White Blood Count 5.6 K/mm3 (4.4-11.0)
[2023-07-08 07:40] LABS: ALB/GLOB Ratio 0.7 RATIO (0.9-2.4); AST(SGOT) 42 U/L (15-37); Alanine Aminotransfer ALT/SGPT 64 U/L (13-56); Albumin, Serum 3.2 g/dL (3.2-5.0); Alkaline Phosphatase 72 U/L (45-117); Anion Gap 3 (5-15); BUN 9 mg/dL (7-18); BUN/Creat Ratio 32.4 RATIO (10-20); Calcium,Total 8.6 mg/dL (8.5-10.1); Chloride 103 mmol/L (98-107); Creatinine, Serum 0.28 mg/dL (0.55-1.02); EST Glomerular Filtration Rate 274 mL/min (>60); Est Glom Filt Rate - Afr Amer 331 mL/min (>60); Estimated Creatinine Clearance 292.59 ml/min; Globulin 4.9 g/dL (2.2-4.2); Glucose 111 mg/dL (74-106); Potassium 3.4 mmol/L (3.5-5.1); Protein, Total 8.1 g/dL (6.4-8.2); Sodium Level 134 mmol/L (136-145)
--- NOTE | 2023-07-08 09:09 | TREXTCAR_ITS ---
Diet Diet Order/Speech Therapy: 07/07/23 15:39 Diet: Regular - General Is pt able to select menu?: No Routine Orders/Code Status Suppository Type: Dulcolax 10mg Suppository Frequency: Daily PRN Therapies Weight Bearing: Weight bearing as tolerated Extremity Affected:: Bilateral Lower Physical Therapy: Eval and Treat Occupational Therapy: Eval and Treat Speech Therapy: Eval and Treat Problem/Diagnosis (1) Seizure: Status: Acute Code(s): R56.9 - Unspecified convulsions Plan HENRIK GARCIA, is a 48 F was admitted on 07/02/2023 from [facility] for altered mental status. Per daughter she was at her baseline 6 PM the previous evening, brought to ED and had seizure-like activity and was also found to have evidence of UTI and concern for sepsis. Patient continued on Zosyn and linezolid and started on Keppra with EEG ordered and [facility] tel[facility] consult. 1. Sepsis secondary to Acute Cystitis; without hematuria in the setting of C7 spinal cord injury with quadriplegia, neurogenic bladder and suprapubic catheter with frequent UTI's - Admit to ICU for treatment for treatment of sepsis protocol under contact precautions. Continue IV Zosyn begun in the ER and continue Linezolid as previous. Give Tylenol prn for pain or fever. 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 still. Lactic acid improved from 5.7 to 1.2. Infectious diseases consulted. -07/04: Patient on broad-spectrum antibiotics, urine culture with Proteus, ID consult pending, blood cultures pending 07/05: Urine culture shows multiple organisms Pseudomonas more than 100,000 colonies GNR, GPC possible Enterococcus and GNR 2 suggestive of contamination. 07/06: CT abdomen was done. It shows large bladder stone and multiple other stones in the bladder and urethra. Patient also has a midline inserted in right basilic vein. Chronic suprapubic indwelling catheter. Plan for cystoscopy with laser lithotripsy and placement of new suprapubic catheter tomorrow under general anesthesia. Patient on Tolterodine and Vibregron 07/07: Patient going for cystoscopy as mentioned above. 2. Septic/metabolic encephalopathy arising from #1 - Continue supportive care and monitor for improvement. -07/03: Treat underlying etiology, patient still confused -07/04: Patient on broad-spectrum antibiotics, underlying etiology being treated, patient significantly improving with treatment of infection 07/05: Patient screaming and moaning. She said her abdomen is hurting all over but could not give detailed history of characteristic of abdominal pain. On exam, abdomen feels soft with increased bowel sounds. No guarding/rigidity. Started on Seroquel. 07/07: Patient is more lucid and follows simple command. 3. Suspected absence-type seizure in the ER requiring treatment with IV Ativan compounding #1 & #2 - Check EEG to confirm suspicion. Start Keppra 1g IV BID. Finally, consult [facility] with help appreciated in advance. -07/03: On Keppra, teleneurology consult, EEG ordered. CT in ED with acute left sphenoid sinusitis but otherwise unremarkable -07/04: Patient evaluated by teleneurology, EEG with mild to moderate encephalopathy with no seizure activity, neuro recommended to pursue MRI and discontinue Keppra 07/05 patient went for MRI 07/07: MRI brain shows no evidence for acute infarct. Increased T2 flair signal in bilateral posterior parietal temporal and occipital lobes. 4. New onset abdominal pain: Abdomen is soft with generalized abdominal pain no other specific tender points. Pain medication given. Had one-time loose bowel movement. Patient having bowel movement. 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 Wound RN to see patient on-rounds in the AM with consult appreciated in advance. -07/03: Local wound care, cont linezolid -07/04: Wound care consult, ID consult, continue present management 5. Hypothyroidism - Resume Synthroid as previous and check TSH. -07/03: TSH within normal limits 6. Morbid obesity; with BMI of 42.7 this admission - Weight loss will be recommended but is unlikely given her paralysis. -07/03: Updated BMI 40.9 7. History of WPW syndrome - Noted. 8. History of RLE DVT; with listed allergies to Apixaban & Xarelto (rash) - Noted. 9. History of Left femur fracture - Noted. 10. History of cocaine and heroin abuse - Noted. 11. Depression with anxiety - Continue home medications as previous. 12. GERD - Resume PPI as previous. 13. Chronic headaches - Stable. 14. Chronic pain; on Buprenorphine patch - Continue Buprenorphine patch as previous. 15. DVT prophylaxis - Lovenox 40 mg sq BID Clinical Impression(s) from Imaging Studies Chest X-Ray 07/02/23 22:30 IMPRESSION: Poor inspiration with some bibasilar atelectasis. Cardiomegaly. Electronically Signed: Yuri Cerna MD at 23:56 EST , Brain CT 07/02/23 23:25 IMPRESSION: Normal unenhanced CT scan of the brain. Acute left sphenoid sinusitis Electronically Signed: Yuri Cerna MD at 23:45 EST , Brain MRI 07/05/23 10:00 IMPRESSION: Mild zones of increased T2 FLAIR signal in the bilateral posterior parietal and temporal occipital lobes, which can be seen with acute hypertensive encephalopathy, status epilepticus, or hypoglycemia. No evidence for acute infarct. Very mild chronic white matter changes. Electronically Signed: Mary Keller MD at 15:56 EST , KUB X-Ray 07/05/23 16:30 IMPRESSION: Normal x-ray examination of the abdomen and pelvis. Electronically Signed: David Moreno MD at 17:43 EST , Abdomen/Pelvis CT 07/06/23 10:25 IMPRESSION: Multiple stones are seen within the urinary bladder and urethra. A catheter seen within a decompressed urinary bladder. Possible tiny gallstones. Left basilar infiltrate. Findings suggestive of a linear scarring and/or atelectasis at the right lung base. Stable appearance of the right hip joint with fluid and erosive changes of the femur. Electronically Signed: Roosevelt Galvez MD at 11:35 EST , Allergies/Procedures Done in Hospital Allergies apixaban [From Eliquis] Allergy (Verified 07/02/23 22:41) Rash coconut oil Allergy (Verified 07/02/23 22:41) cant breath mometasone furoate [From Elocon] Allergy (Verified 07/02/23 22:41) Rash nitrofurantoin Allergy (Verified 07/02/23 22:41) Unknown rivaroxaban [From Xarelto] Allergy (Verified 07/02/23 22:41) Rash Sulfa (Sulfonamide Antibiotics) Allergy (Verified 07/02/23 22:41) Shortness of breath Penicillins Adverse Reaction (Verified 07/02/23 22:41) NEEDS FOLLOW-UP Type of Care/Length of Stay Estimated LOS: More Than 30 Days Type of Care Needed: Intermediate Rehab Potential: Fair Prognosis: Fair Additional Orders/Day of Discharge Day of Discharge: 07/08/23 Dietary and Speech Recommendations Dietitian Recommendations/Changes: continue regular diet w/ texture modifications as indicated; will monitor PO intake, results of CT and adjust diet/add ONS as indicated. Discharge Plan Admission Admit Date/Time: 07/03/23 00:01 Primary Reason for Your Visit: Complicated Pseudomonas CAUTI with stones Attending Provider: Raad Hope Primary Care Provider: Lavon Vicente Consulting Providers: Margarita Cortez; Alana Cavazos; Anabell Patterson; Jonna Mansfield; Renzo De Paz; Paul Walsh; Tyrell Rodriguez; Harper Quach; Wendy Correa; Javier Alfredo; Shelly Fernandez; John Minor; Roman Saunders; Keven Joseph; Jes Dumont; Fernando Salcedo; Urbano Oquendo; Duane Reyna; Jono Sharp; Heidi Carmona; Kladuia Mercado; Dulce Livingston; Yaya Neff; Beba Lewis; NAIDA CRUM; Navjot Meadows; Jacklyn Queen; Shari Pastor; Flaco Choi Instructions Additional Instructions / Restrictions: Patient has a right arm PICC line. Discharge Orders/Prescriptions Prescriptions: New Zosyn in dextrose (iso-osm) 3.375 gram/50 mL piggyback 3.375 g IV Q8H 7 Days Rx Instructions: dx: pseudomonas infection acidophilus-pectin, citrus 25 million cell -100 mg Tablet 2 tab PO BID Qty: 0 0RF menthol-zinc oxide [Calmoseptine] 0.44-20.6 % Ointment 1 applic topical TID Qty: 0 0RF Protocol: *Topical Application Instructions APPLICATION INSTRUCTIONS: Apply to affected area(s) Continued levothyroxine 75 MCG tablet 75 mcg PO DAILY Patient Comments: HYPOTHYROIDISM duloxetine 60 MG capsule,delayed release(DR/EC) 90 mg PO QHS Hold Instructions: Resume on 11/23/22. Patient Comments: ANXIETY baclofen 10 MG tablet 40 mg PO Q6H acetaminophen 325 MG tablet 650 mg PO Q4H PRN PRN (Reason: Pain or fever) bisacodyl 10 MG suppository [address] QHS PRN (Reason: Constipation) omeprazole 20 MG capsule,delayed release(DR/EC) 20 mg PO LUNCH furosemide 40 MG tablet 40 mg PO BREAKFAST sennosides 8.6 MG tablet 17.2 mg PO BID polyethylene glycol 3350 17 GM packet 17 gm PO QHS cholecalciferol (vitamin D3) 2,000 UNIT capsule 2,000 unit PO LUNCH docusate sodium [Colace] 100 mg Capsule 200 mg PO BID furosemide 20 mg Tablet 20 mg PO LUNCH isosorbide mononitrate 30 mg Tablet Extended Release 24 Hr 30 mg PO QHS oxybutynin chloride 10 mg Tablet Extended Release 24hr 30 mg PO DAILY gabapentin 800 mg Tablet 1,600 mg PO TID phenazopyridine [Pyridium] 200 mg Tablet 200 mg PO TID PRN (Reason: Bladder Spasms) melatonin 5 mg Tablet 5 mg PO QHS mirtazapine 30 mg Tablet 15 mg PO QHS simethicone 80 mg Tablet 80 mg PO DAILY PRN (Reason: Gastric Reflux) magnesium hydroxide [Milk of Magnesia] 400 mg/5 mL Suspension 30 ml PO DAILY PRN (Reason: Constipation) loperamide 2 mg Tablet 1 mg PO Q4H PRN (Reason: Diarrhea) Rx Instructions: administer after each loose stool until symptoms controlled; do not exceed 8 mg per 24 hrs ondansetron HCl 4 mg Tablet 4 mg PO Q4H PRN (Reason: Nausea) buprenorphine [Butrans] 15 mcg/hour patch weekly 20 mcg transdermal Q7D cetirizine 10 mg Tablet 10 mg PO QPM nystatin [Nyamyc] 100,000 unit/gram Powder 1 applic topical BID Qty: 15 0RF Protocol: *Topical Application Instructions APPLICATION INSTRUCTIONS: to folds and groin Rx Instructions: Apply to pannus diphenhydramine HCl [Allergy (diphenhydramine)] 25 mg tablet 50 mg PO Q8H PRN (Reason: itching) benzonatate 100 mg capsule 100 mg PO Q6H PRN buspirone 10 mg tablet 10 mg PO BID Linzess 145 mcg capsule 145 mcg PO LUNCH paroxetine HCl 10 mg tablet 20 mg PO QHS trazodone 50 mg tablet 50 mg PO QHS All Day Allergy (cetirizine) 10 mg capsule 10 mg PO DAILY PRN (Reason: allergies) Myrbetriq 25 mg tablet extended release 24 hr 25 mg PO LUNCH Changed potassium chloride 10 mEq Capsule, Extended Release 20 meq PO LUNCH Qty: 30 0RF Discontinued linezolid 600 mg Tablet 600 mg PO BID 7 Days Qty: 14 0RF fosfomycin tromethamine 3 gram packet 3 g PO X1 Rx Instructions: one time only for uti ibuprofen [Advil] 200 mg tablet 400 mg PO Q6H Referrals / Follow Up: Lavon Vicente MD [Primary Care Provider] - Flaco Choi MD [Med Staff - Active Staff] - Within 1 Month Paul Walsh MD [Med Staff - Active Staff] - Disposition Disposition (needs filled in before D/C Order can be placed): Intermediate Facility
[2023-07-08] MEDS: Loperamide 2 MG Capsule PO ×2 (09:19→13:22)
[2023-07-08] MEDS: busPIRone 5 MG Tablet 10 MG PO (09:19)
[2023-07-08] MEDS: Miconazole Nitrate 43 GM Bottle 1 APPLIC TOPICAL (09:20)
[2023-07-08] MEDS: Tolterodine Tartrate 4 MG CAP.SA PO (09:20)
[2023-07-08] MEDS: Acetaminophen 325 MG Tablet 650 MG PO (09:23)
--- NOTE | 2023-07-08 09:32 | CASEMGMT ---
Discharge Planning Updates [facility] Elisa Pinto, Discharge Planning Asst.
--- NOTE | 2023-07-08 10:08 | PCM.PN.ID ---
Physical Exam Narrative Feeling better, no abd pain, no fever Const alert and no apparent distress General Appearance: cooperative Resp normal air movement and clear to auscultation bilaterally Cardio regular rate and regular rhythm GI soft to palpation, non-tender and non-distended Skin no rashes or lesions noted ID ID: Route of nutrition/ use of supplements: [] Nutritional Intake: [] IV Site: [] Mccarthy Catheter: [] Assessment & Plan Assessment/Plan (1) VRE infection (vancomycin resistant Enterococcus): (2) UTI (urinary tract infection): QUALIFIERS: Urinary tract infection type: acute cystitis Hematuria presence: without hematuria Qualified Code(s): N30.00 - Acute cystitis without hematuria PLAN: Ucx with enterococcus, PsA x2, GNR, proteus. H/o VRE. Cont zosyn for one more week. Taken to OR 07/07/[address] Choi for bladder lithotripsy. Will follow as needed, wrote rx, d/w primary team
[2023-07-08] MEDS: Pantoprazole Sodium 20 MG Tablet PO (11:17)
[2023-07-08] MEDS: Potassium Chloride Oral Tablet 10 MEQ PO (11:17)
[2023-07-08] MEDS: Cholecalciferol (VIT D3) 25 MCG TABLET (1,000 UNITS) 50 MCG PO (11:17)
[2023-07-08] MEDS: Vibegron 75 MG TABLET PO (11:18)
--- NOTE | 2023-07-08 12:50 | PCM.DC.SUM ---
Providers Date of Admission: 07/03/23 Date of Discharge: 07/08/23 Primary Care Physician: Dr. Lavon Vicente MD Consultations 07/03/23 00:12 Tele [Consult: Tele-Neurology] Routine Consulting Provider: [facility] Reason for Consult: Suspected Absence-type Seizure EMERGENT Consult: No Notified: Yes Date Notified: 07/03/23 Time Notified: 09:20 Method of Notification: Answering Service Method of Consult:: Telemedicine Nursing Unit Staff Notify [facility] of Tele-Neurology Consult: Yes 07/03/23 00:50 Consult: Vocational Technical Education Director / Pulmonary Medicine Routine Consulting Provider: Intensivists/Pulmonary Med Reason for Consult: Sepsis with Septic Encephalopathy 2/2 UTI with suprapubic cath EMERGENT Consult: No Notified: Yes Date Notified: 07/03/23 Time Notified: 00:10 Method of Notification: Text 07/03/23 06:53 Consult: Infectious Disease Routine Consulting Provider: Paul Walsh Reason for Consult: Sepsis, h/o multidrug resistance EMERGENT Consult: No Notified: Yes Date Notified: 07/03/23 Time Notified: 06:53 Method of Notification: Answering Service 07/06/23 13:43 Consult: Urology Routine Consulting Provider: Flaco Choi Reason for Consult: Multiple stones in the urinary bladder and urethra. Indwelling suprapubic EMERGENT Consult: No Notified: Yes Date Notified: 07/06/23 Time Notified: 13:43 Method of Notification: Text Reason For Visit: UTI WITH SEPSIS AND SEPTIC ENCEPHALOPATHY Diagnosis Discharge Diagnosis (1) Seizure: Status: Acute Code(s): R56.9 - Unspecified convulsions ashutosh Ambrosio a 48 F was admitted on 07/02/2023 from [facility] for altered mental status. Per daughter she was at her baseline 6 PM the previous evening, brought to ED and had seizure-like activity and was also found to have evidence of UTI and concern for sepsis. Patient continued on Zosyn and linezolid and started on Keppra with EEG ordered and [facility] consult. 1. Sepsis secondary to Acute Cystitis; without hematuria in the setting of C7 spinal cord injury with quadriplegia, neurogenic bladder and suprapubic catheter with frequent UTI's - Admit to ICU for treatment for treatment of sepsis protocol under contact precautions. Continue IV Zosyn begun in the ER and continue Linezolid as previous. Give Tylenol prn for pain or fever. 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 still. Lactic acid improved from 5.7 to 1.2. Infectious diseases consulted. -07/04: Patient on broad-spectrum antibiotics, urine culture with Proteus, ID consult pending, blood cultures pending 07/05: Urine culture shows multiple organisms Pseudomonas more than 100,000 colonies GNR, GPC possible Enterococcus and GNR 2 suggestive of contamination. 07/06: CT abdomen was done. It shows large bladder stone and multiple other stones in the bladder and urethra. Patient also has a midline inserted in right basilic vein. Chronic suprapubic indwelling catheter. Plan for cystoscopy with laser lithotripsy and placement of new suprapubic catheter tomorrow under general anesthesia. Patient on Tolterodine and Vibregron 07/07: Patient going for cystoscopy as mentioned above. 07/08: Patient had cystoscopy on 07/07 and litholapaxy and laser of bladder stones greater than 5 cm in size was done and a new 22 [place]i suprapubic catheter was inserted. Successful removal of significant amount of stones were done. Patient was seen by ID and wrote prescription for Zosyn through midline which was inserted in right arm on 07/07. 2. Septic/metabolic encephalopathy arising from #1 - Continue supportive care and monitor for improvement. -07/03: Treat underlying etiology, patient still confused -07/04: Patient on broad-spectrum antibiotics, underlying etiology being treated, patient significantly improving with treatment of infection 07/05: Patient screaming and moaning. She said her abdomen is hurting all over but could not give detailed history of characteristic of abdominal pain. On exam, abdomen feels soft with increased bowel sounds. No guarding/rigidity. Started on Seroquel. 07/07: Patient is more lucid and follows simple command. 07/08: Acute encephalopathy resolved. 3. Suspected absence-type seizure in the ER requiring treatment with IV Ativan compounding #1 & #2 - Check EEG to confirm suspicion. Start Keppra 1g IV BID. Finally, consult [facility] with help appreciated in advance. -07/03: On Keppra, teleneurology consult, EEG ordered. CT in ED with acute left sphenoid sinusitis but otherwise unremarkable -07/04: Patient evaluated by teleneurology, EEG with mild to moderate encephalopathy with no seizure activity, neuro recommended to pursue MRI and discontinue Keppra 07/05 patient went for MRI 07/07: MRI brain shows no evidence for acute infarct. Increased T2 flair signal in bilateral posterior parietal temporal and occipital lobes. 4. New onset abdominal pain most likely due to stool/bladder stone: Abdomen is soft with generalized abdominal pain no other specific tender points. Pain medication given. Had one-time loose bowel movement. Patient having bowel movement. 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 Wound RN to see patient on-rounds in the AM with consult appreciated in advance. -07/03: Local wound care, cont linezolid -07/04: Wound care consult, ID consult, continue present management 5. Hypothyroidism - Resume Synthroid as previous and check TSH. -07/03: TSH within normal limits 6. Morbid obesity; with BMI of 42.7 this admission - Weight loss will be recommended but is unlikely given her paralysis. -07/03: Updated BMI 40.9 7. History of WPW syndrome - Noted. 8. History of RLE DVT; with listed allergies to Apixaban & Xarelto (rash) - Noted. 9. History of Left femur fracture - Noted. 10. History of cocaine and heroin abuse - Noted. 11. Depression with anxiety - Continue home medications as previous. 12. GERD - Resume PPI as previous. 13. Chronic headaches - Stable. 14. Chronic pain; on Buprenorphine patch - Continue Buprenorphine patch as previous. 15. DVT prophylaxis - Lovenox 40 mg sq BID Discharge medication reconciliation done. Discharge follow-up instructions completed. Discharge process discussed with the patient and all questions were answered to patient's satisfaction. Follow with PCP in 1 to 2 weeks Total time spent, exact 35 minutes on discharge meds reconciliation, examination, coordination of care with nurses and ancillary staff, review of imaging and blood test and discussion with the patient on follow-up instructions. Clinical Impression(s) from Imaging Studies Chest X-Ray 07/02/23 22:30 IMPRESSION: Poor inspiration with some bibasilar atelectasis. Cardiomegaly. Electronically Signed: Yuri Cerna MD at 23:56 EST , Brain CT 07/02/23 23:25 IMPRESSION: Normal unenhanced CT scan of the brain. Acute left sphenoid sinusitis Electronically Signed: Yuri Cerna MD at 23:45 EST , Brain MRI 07/05/23 10:00 IMPRESSION: Mild zones of increased T2 FLAIR signal in the bilateral posterior parietal and temporal occipital lobes, which can be seen with acute hypertensive encephalopathy, status epilepticus, or hypoglycemia. No evidence for acute infarct. Very mild chronic white matter changes. Electronically Signed: Mary Keller MD at 15:56 EST , KUB X-Ray 07/05/23 16:30 IMPRESSION: Normal x-ray examination of the abdomen and pelvis. Electronically Signed: David Moreno MD at 17:43 EST , Abdomen/Pelvis CT 07/06/23 10:25 IMPRESSION: Multiple stones are seen within the urinary bladder and urethra. A catheter seen within a decompressed urinary bladder. Possible tiny gallstones. Left basilar infiltrate. Findings suggestive of a linear scarring and/or atelectasis at the right lung base. Stable appearance of the right hip joint with fluid and erosive changes of the femur. Electronically Signed: Roosevelt Galvez MD at 11:35 EST , Medications at Discharge Home Medications levothyroxine 75 mcg tablet 75 mcg PO DAILY hypothyroidism 05/28/15 duloxetine 60 mg capsule,delayed release 90 mg PO QHS depression 08/21/15 baclofen 10 mg tablet 40 mg PO Q6H SPASMS 08/16/16 acetaminophen 325 mg tablet 650 mg PO Q4H PRN PRN Pain or fever 03/01/18 bisacodyl 10 mg rectal suppository 10 mg [place] QHS PRN Constipation 03/01/18 omeprazole 20 mg capsule,delayed release 20 mg PO LUNCH GERD 03/01/18 furosemide 40 mg tablet 40 mg PO BREAKFAST edema 05/26/18 sennosides 8.6 mg tablet 17.2 mg PO BID constipation 08/16/18 cholecalciferol (vitamin D3) 50 mcg (2,000 unit) capsule 2,000 unit PO LUNCH SUPPLEMENT 08/08/19 polyethylene glycol 3350 17 gram oral powder packet 17 gm PO QHS constipation 08/08/19 docusate sodium 100 mg capsule (Colace) 200 mg PO BID constipation 10/11/20 furosemide 20 mg tablet 20 mg PO LUNCH edema 04/21/21 gabapentin 800 mg tablet 1,600 mg PO TID NEUROPATHY 04/22/21 isosorbide mononitrate 30 mg tablet,extended release 24 hr 30 mg PO QHS angina 04/22/21 oxybutynin chloride 10 mg tablet,extended release 24 hr 30 mg PO DAILY Bladder spasms 04/22/21 phenazopyridine 200 mg tablet (Pyridium) 200 mg PO TID PRN Bladder Spasms 05/27/21 loperamide 2 mg tablet 1 mg PO Q4H PRN Diarrhea 06/03/22 magnesium hydroxide 400 mg/5 mL oral suspension (Milk of Magnesia) 30 ml PO DAILY PRN Constipation 06/03/22 melatonin 5 mg tablet 5 mg PO QHS insomnia 06/03/22 mirtazapine 30 mg tablet 15 mg PO QHS insomnia 06/03/22 ondansetron HCl 4 mg tablet 4 mg PO Q4H PRN Nausea 06/03/22 simethicone 80 mg tablet 80 mg PO DAILY PRN Gastric Reflux 06/03/22 buprenorphine 15 mcg/hour weekly transdermal patch (Butrans) 20 mcg transdermal Q7D pain 09/12/22 cetirizine 10 mg tablet 10 mg PO QPM allergies 09/12/22 nystatin 100,000 unit/gram topical powder (Nyamyc) 1 applic topical BID #15 grams 11/16/22 benzonatate 100 mg capsule 100 mg PO Q6H PRN 07/02/23 buspirone 10 mg tablet 10 mg PO BID 07/02/23 cetirizine 10 mg capsule (All Day Allergy (cetirizine)) 10 mg PO DAILY PRN allergies 07/02/23 diphenhydramine HCl 25 mg tablet (Allergy (diphenhydramine)) 50 mg PO Q8H PRN itching 07/02/23 linaclotide 145 mcg capsule (Linzess) 145 mcg PO LUNCH constipation 07/02/23 mirabegron 25 mg tablet,extended release 24 hr (Myrbetriq) 25 mg PO LUNCH 07/02/23 paroxetine HCl 10 mg tablet 20 mg PO QHS 07/02/23 trazodone 50 mg tablet 50 mg PO QHS 07/02/23 acidophilus 25 million cell-pectin, citrus 100 mg tablet 2 tab PO BID #0 tabs 07/08/23 menthol 0.44 %-zinc oxide 20.6 % topical ointment (Calmoseptine) 1 applic topical TID #0 grams 07/08/23 piperacillin-tazobactam 3.375 gram/50 mL dextrose(iso-os) IV piggyback (Zosyn) 3.375 g (56.25 mL) IV Q8H 7 days 07/08/23 potassium chloride 10 mEq capsule,extended release 20 meq (2 x 10 mEq) PO LUNCH hypokalemia #30 caps 07/08/23 Physical Exam Narrative Seen and examined. Patient is more awake and complaining of upper abdominal pain. CT abdomen reported bladder stone but abdominal pain not consistent with the CT report. CT abdomen/pelvis shows bladder and ureteral stones. Has indwelling suprapubic catheter. Had bowel movement. Physical exam: General: Awake. Oriented x3, Cooperative, morbid obesity BMI 41.2 kg square meter HEENT: Atraumatic, PERRLA, EOMI, Normocephalic Oral: Oral mucosa dry. No Gingival or Mucosal Lesions/ Ulcerations Neck: Supple, No JVD, Negative Carotid Bruits Lungs: Air entry diminished in bilateral lung bases. No crepitation/rhonchi Cardiovascular: Regular rate, Regular Rhythm, Normal S1, Normal S2, No murmurs Abdomen: Bowel Sounds present soft, no tenderness, no guarding/rigidity. No rebound tenderness. : Indwelling suprapubic catheter. Mild pus flecks. No renal angle tenderness. No suprapubic tenderness. Extremities: Right arm PICC line. No palpable swelling or tenderness in right arm. Slight edema, Capillary Refill Less than 3 Seconds Skin: No rashes, No breakdown Musculoskeletal: Functional quadriplegia. Could not move her legs, chronic paraplegia. No Tenderness to Palpation of Joints or Extremities Neurological: Cranial nerves II-XII grossly intact, chronic neurological deficit. Psych/Mental Status: Flat affect. Patient more quiet and lucid Weight / BMI Weight Weight: 239 lb 6.752 oz Body Mass Index (BMI) 41.1 ABG / Lab / Microbiology Data 07/08/23 06:15 07/08/23 06:15 Laboratory: Laboratory Results - last 24 hr 07/08/23 06:15: WBC 5.6, RBC 4.55, Hgb 11.6 L, Hct 38.0, MCV 83.5, MCH 25.5 L, MCHC 30.5 L, RDW Std Deviation 48.1 H, RDW Coeff of Juan Antonio 15.9 H, Plt Count 370, MPV 9.2, Immature Gran % (Auto) 0.700, Neut % (Auto) 56.9, Lymph % (Auto) 34.4, [place] % (Auto) 7.6, Eos % (Auto) 0.0, Baso % (Auto) 0.4, Absolute Neuts (auto) 3.2, Absolute Lymphs (auto) 1.94, Nucleated RBC % 0, Sodium 134 L, Potassium 3.4 L, Chloride 103, Carbon Dioxide 28.0, Anion Gap 3 L, BUN 9, Creatinine 0.28 L, Estim Creat Clear Calc 292.59, Est GFR (MDRD) Af Amer 331, Est GFR (MDRD) Non-Af 274, BUN/Creatinine Ratio 32.4 H, Glucose 111 H, Calcium 8.6, Total Bilirubin 0.30, AST 42 H, ALT 64 H, Alkaline Phosphatase 72, Total Protein 8.1, Albumin 3.2, Globulin 4.9 H, Albumin/Globulin Ratio 0.7 L Microbiology: Microbiology 07/02/23 23:15 Blood Culture (Wb) - Arm Left Blood Culture - Final No growth in 5 days. 07/02/23 22:45 Blood Culture (Wb) - Arm Left Blood Culture - Final No growth in 5 days. 07/03/23 02:05 Urine Catheter - Mccarthy Urine Culture - Final Pseudomonas aeruginosa Enterococcus faecalis Proteus mirabilis 07/02/23 23:10 Urine, Catheterized Urine Culture - Final Proteus mirabilis Enterococcus faecalis 07/02/23 22:55 Mucosa - Nose SARS-CoV-2, Influenza & RSV (PCR) - Final Meaningful Use Info Meaningful Use Diagnoses (Choose all that apply): None applicable Discharge Plan Admission Admit Date/Time: 07/03/23 00:01 Primary Reason for Your Visit: Complicated Pseudomonas CAUTI with stones Attending Provider: Raad Hope Primary Care Provider: Lavon Vicente Consulting Providers: Margarita Cortez; Alana Cavazos; Anabell Patterson; Jonna Mansfield; Renzo De Paz; Paul Walsh; Tyrell Rodriguez; Harper Quach; Wendy Correa; Javier Alfredo; Shelly Fernandez; John Minor; Roman Saunders; Keven Joseph; Jes Dumont; Fernando Salcedo; Urbano Oquendo; Duane Reyna; Jono Sharp; Heiid Carmona; Klaudia Mercado; Dulce Livingston; Yaya Neff; Beba Lewis; NAIDA CRUM; Navjot Meadows; Jacklyn Queen; Shari Pastor; Flaco Choi Instructions Additional Instructions / Restrictions: Patient has a right arm PICC line. Discharge Orders/Prescriptions Prescriptions: New Zosyn in dextrose (iso-osm) 3.375 gram/50 mL piggyback 3.375 g IV Q8H 7 Days Rx Instructions: dx: pseudomonas infection acidophilus-pectin, citrus 25 million cell -100 mg Tablet 2 tab PO BID Qty: 0 0RF menthol-zinc oxide [Calmoseptine] 0.44-20.6 % Ointment 1 applic topical TID Qty: 0 0RF Protocol: *Topical Application Instructions APPLICATION INSTRUCTIONS: Apply to affected area(s) Continued levothyroxine 75 MCG tablet 75 mcg PO DAILY Patient Comments: HYPOTHYROIDISM duloxetine 60 MG capsule,delayed release(DR/EC) 90 mg PO QHS Hold Instructions: Resume on 11/23/22. Patient Comments: ANXIETY baclofen 10 MG tablet 40 mg PO Q6H acetaminophen 325 MG tablet 650 mg PO Q4H PRN PRN (Reason: Pain or fever) bisacodyl 10 MG suppository 10 mg WV QHS PRN (Reason: Constipation) omeprazole 20 MG capsule,delayed release(DR/EC) 20 mg PO LUNCH furosemide 40 MG tablet 40 mg PO BREAKFAST sennosides 8.6 MG tablet 17.2 mg PO BID polyethylene glycol 3350 17 GM packet 17 gm PO QHS cholecalciferol (vitamin D3) 2,000 UNIT capsule 2,000 unit PO LUNCH docusate sodium [Colace] 100 mg Capsule 200 mg PO BID furosemide 20 mg Tablet 20 mg PO LUNCH isosorbide mononitrate 30 mg Tablet Extended Release 24 Hr 30 mg PO QHS oxybutynin chloride 10 mg Tablet Extended Release 24hr 30 mg PO DAILY gabapentin 800 mg Tablet 1,600 mg PO TID phenazopyridine [Pyridium] 200 mg Tablet 200 mg PO TID PRN (Reason: Bladder Spasms) melatonin 5 mg Tablet 5 mg PO QHS mirtazapine 30 mg Tablet 15 mg PO QHS simethicone 80 mg Tablet 80 mg PO DAILY PRN (Reason: Gastric Reflux) magnesium hydroxide [Milk of Magnesia] 400 mg/5 mL Suspension 30 ml PO DAILY PRN (Reason: Constipation) loperamide 2 mg Tablet 1 mg PO Q4H PRN (Reason: Diarrhea) Rx Instructions: administer after each loose stool until symptoms controlled; do not exceed 8 mg per 24 hrs ondansetron HCl 4 mg Tablet 4 mg PO Q4H PRN (Reason: Nausea) buprenorphine [Butrans] 15 mcg/hour patch weekly 20 mcg transdermal Q7D cetirizine 10 mg Tablet 10 mg PO QPM nystatin [Nyamyc] 100,000 unit/gram Powder 1 applic topical BID Qty: 15 0RF Protocol: *Topical Application Instructions APPLICATION INSTRUCTIONS: to folds and groin Rx Instructions: Apply to pannus diphenhydramine HCl [Allergy (diphenhydramine)] 25 mg tablet 50 mg PO Q8H PRN (Reason: itching) benzonatate 100 mg capsule 100 mg PO Q6H PRN buspirone 10 mg tablet 10 mg PO BID Linzess 145 mcg capsule 145 mcg PO LUNCH paroxetine HCl 10 mg tablet 20 mg PO QHS trazodone 50 mg tablet 50 mg PO QHS All Day Allergy (cetirizine) 10 mg capsule 10 mg PO DAILY PRN (Reason: allergies) Myrbetriq 25 mg tablet extended release 24 hr 25 mg PO LUNCH Changed potassium chloride 10 mEq Capsule, Extended Release 20 meq PO LUNCH Qty: 30 0RF Discontinued linezolid 600 mg Tablet 600 mg PO BID 7 Days Qty: 14 0RF fosfomycin tromethamine 3 gram packet 3 g PO X1 Rx Instructions: one time only for uti ibuprofen [Advil] 200 mg tablet 400 mg PO Q6H Referrals / Follow Up: Flaco Choi MD [Med Staff - Active Staff] - Within 1 Month Lavon Vicente MD [Primary Care Provider] - Paul Walsh MD [Med Staff - Active Staff] - Disposition Disposition (needs filled in before D/C Order can be placed): [facility] Charges/Coding Visit Charges Inpatient E&M: 18261 Disch Hosp >30min
--- NOTE | 2023-07-08 12:51 | CASEMGMT ---
Discharge Planning Discharge orders, signed med list, and transport time sent to [facility] via [facility]. Physicians will transport patient by cot at 1:30p. Nursing, SW, patient, and her daughter updated. Elisa Pinto, Discharge Planning Asst.
--- NOTE | 2023-07-08 13:38 | PHA.DC.MR.R ---
Pharmacy [place] Med Reconciliation Pharmacy Service has performed discharge medication reconciliation for this patient. The patient's discharge medication list was reviewed for discrepancies and discrepancies were resolved. Medications at Discharge Home Medications levothyroxine 75 mcg tablet 75 mcg PO DAILY hypothyroidism 05/28/15 duloxetine 60 mg capsule,delayed release 90 mg PO QHS depression 08/21/15 baclofen 10 mg tablet 40 mg PO Q6H SPASMS 08/16/16 acetaminophen 325 mg tablet 650 mg PO Q4H PRN PRN Pain or fever 03/01/18 bisacodyl 10 mg rectal suppository 10 mg [place] QHS PRN Constipation 03/01/18 omeprazole 20 mg capsule,delayed release 20 mg PO LUNCH GERD 03/01/18 furosemide 40 mg tablet 40 mg PO BREAKFAST edema 05/26/18 sennosides 8.6 mg tablet 17.2 mg PO BID constipation 08/16/18 cholecalciferol (vitamin D3) 50 mcg (2,000 unit) capsule 2,000 unit PO LUNCH SUPPLEMENT 08/08/19 polyethylene glycol 3350 17 gram oral powder packet 17 gm PO QHS constipation 08/08/19 docusate sodium 100 mg capsule (Colace) 200 mg PO BID constipation 10/11/20 furosemide 20 mg tablet 20 mg PO LUNCH edema 04/21/21 gabapentin 800 mg tablet 1,600 mg PO TID NEUROPATHY 04/22/21 isosorbide mononitrate 30 mg tablet,extended release 24 hr 30 mg PO QHS angina 04/22/21 oxybutynin chloride 10 mg tablet,extended release 24 hr 30 mg PO DAILY Bladder spasms 04/22/21 phenazopyridine 200 mg tablet (Pyridium) 200 mg PO TID PRN Bladder Spasms 05/27/21 loperamide 2 mg tablet 1 mg PO Q4H PRN Diarrhea 06/03/22 magnesium hydroxide 400 mg/5 mL oral suspension (Milk of Magnesia) 30 ml PO DAILY PRN Constipation 06/03/22 melatonin 5 mg tablet 5 mg PO QHS insomnia 06/03/22 mirtazapine 30 mg tablet 15 mg PO QHS insomnia 06/03/22 ondansetron HCl 4 mg tablet 4 mg PO Q4H PRN Nausea 06/03/22 simethicone 80 mg tablet 80 mg PO DAILY PRN Gastric Reflux 06/03/22 buprenorphine 15 mcg/hour weekly transdermal patch (Butrans) 20 mcg transdermal Q7D pain 09/12/22 cetirizine 10 mg tablet 10 mg PO QPM allergies 09/12/22 nystatin 100,000 unit/gram topical powder (Nyamyc) 1 applic topical BID #15 grams 11/16/22 benzonatate 100 mg capsule 100 mg PO Q6H PRN 07/02/23 buspirone 10 mg tablet 10 mg PO BID 07/02/23 cetirizine 10 mg capsule (All Day Allergy (cetirizine)) 10 mg PO DAILY PRN allergies 07/02/23 diphenhydramine HCl 25 mg tablet (Allergy (diphenhydramine)) 50 mg PO Q8H PRN itching 07/02/23 linaclotide 145 mcg capsule (Linzess) 145 mcg PO LUNCH constipation 07/02/23 mirabegron 25 mg tablet,extended release 24 hr (Myrbetriq) 25 mg PO LUNCH 07/02/23 paroxetine HCl 10 mg tablet 20 mg PO QHS 07/02/23 trazodone 50 mg tablet 50 mg PO QHS 07/02/23 acidophilus 25 million cell-pectin, citrus 100 mg tablet 2 tab PO BID #0 tabs 07/08/23 menthol 0.44 %-zinc oxide 20.6 % topical ointment (Calmoseptine) 1 applic topical TID #0 grams 07/08/23 piperacillin-tazobactam 3.375 gram/50 mL dextrose(iso-os) IV piggyback (Zosyn) 3.375 g (56.25 mL) IV Q8H 7 days 07/08/23 potassium chloride 10 mEq capsule,extended release 20 meq (2 x 10 mEq) PO LUNCH hypokalemia #30 caps 07/08/23
== END 2023-07-08 13:51 | disposition skilled nursing facility (03) | DRG 698 ==
LOC: ED 22:48 → ICU 07-03 00:47 → PCU 07-04 12:41
PROVIDERS: Internal Medicine; Internal Medicine Critical Care Medicine; Urology; Admitting Provider Internal Medicine; Emergency Provider Student in an Organized Health Care Education/Training Program; PCP Family Medicine; Referring Provider Internal Medicine; Visit Provider Internal Medicine
PROC: 0TCB8ZZ Extirpation of Matter from Bladder, Via Natural or Artificial Opening Endoscopic (ICD-10-PCS; principal; 2023-07-07 14:05)
DX: T83.511A Infection and inflammatory reaction due to indwelling urethral catheter, initial encounter (principal); G93.41 Metabolic encephalopathy; A41.59 Other Gram-negative sepsis; L89.134 Pressure ulcer of right lower back, stage 4; L89.314 Pressure ulcer of right buttock, stage 4; G82.20 Paraplegia, unspecified; E87.20 Acidosis, unspecified; Z68.41 Body mass index [BMI] 40.0-44.9, adult; Z16.21 Resistance to vancomycin; N30.00 Acute cystitis without hematuria; R56.9 Unspecified convulsions; E66.01 Morbid (severe) obesity due to excess calories; E03.9 Hypothyroidism, unspecified; F41.8 Other specified anxiety disorders; J01.30 Acute sphenoidal sinusitis, unspecified; K21.9 Gastro-esophageal reflux disease without esophagitis; N31.9 Neuromuscular dysfunction of bladder, unspecified; Z80.0 Family history of malignant neoplasm of digestive organs; Z79.01 Long term (current) use of anticoagulants; B96.5 Pseudomonas (aeruginosa) (mallei) (pseudomallei) as the cause of diseases classified elsewhere; G89.4 Chronic pain syndrome; N21.0 Calculus in bladder; Z86.14 Personal history of Methicillin resistant Staphylococcus aureus infection; Z86.718 Personal history of other venous thrombosis and embolism; R51.9 Headache, unspecified; B96.4 Proteus (mirabilis) (morganii) as the cause of diseases classified elsewhere; B95.2 Enterococcus as the cause of diseases classified elsewhere; Y84.8 Other medical procedures as the cause of abnormal reaction of the patient, or of later complication, without mention of misadventure at the time of the procedure
CPT/HCPCS: 36415; 36600; 70450; 70551; 71045; 74018; 74178; 80048; 80053; 81001; 82550; 82803; 83605; 84443; 84484; 85025; 85610; 85730; 87040; 87077; 87086; 87088; 87184; 87186; 87631; 93005; 95819; 99285; J2020; J7030; J7040; Q9967; A4216; J1940; J2405

== ENCOUNTER → 2023-07-28 | Outpatient (REF) | payer MEDICARE, MEDICAID, SELFPAY ==
[2023-07-28 09:54] LABS: Hematocrit 34.1 % (37-47); Hemoglobin 10.1 g/dL (12.0-15.0); Mean Corp Hgb Conc 29.6 g/dL (32-36); Mean Corpuscular Hgb 24.9 pg (27.0-32.0); Mean Platelet Vol. 9.7 fl (6.2-12.0); Platelet Count 362 K/mm3 (150-450); RBC Distribution Width CV 15.7 % (11.6-14.6); RBC Distribution Width SD 47.8 fl (35.1-43.9); Red Blood Count 4.06 M/mm3 (4.2-5.4); White Blood Count 7.4 K/mm3 (4.4-11.0)
[2023-07-28 10:30] LABS: ALB/GLOB Ratio 0.6 RATIO (0.9-2.4); AST(SGOT) 19 U/L (15-37); Alanine Aminotransfer ALT/SGPT 31 U/L (13-56); Albumin, Serum 2.8 g/dL (3.2-5.0); Alkaline Phosphatase 90 U/L (45-117); Anion Gap 5 (5-15); BUN 13 mg/dL (7-18); BUN/Creat Ratio 33.7 RATIO (10-20); Calcium,Total 8.8 mg/dL (8.5-10.1); Chloride 104 mmol/L (98-107); Creatinine, Serum 0.39 mg/dL (0.55-1.02); EST Glomerular Filtration Rate 188 mL/min (>60); Est Glom Filt Rate - Afr Amer 227 mL/min (>60); Globulin 4.8 g/dL (2.2-4.2); Glucose 124 mg/dL (74-106); Potassium 3.7 mmol/L (3.5-5.1); Protein, Total 7.6 g/dL (6.4-8.2); Sodium Level 140 mmol/L (136-145)
== END ==
LOC: OLS.SW 04:00
PROVIDERS: PCP Family Medicine; Referring Provider Family Medicine; Visit Provider Family Medicine
DX: D64.9 Anemia, unspecified (principal); E03.9 Hypothyroidism, unspecified; N39.0 Urinary tract infection, site not specified; E55.9 Vitamin D deficiency, unspecified; F33.9 Major depressive disorder, recurrent, unspecified; R41.82 Altered mental status, unspecified
CPT/HCPCS: 36415; 80053; 85027

== ENCOUNTER → 2023-08-11 | Outpatient (REF) | payer MEDICARE, MEDICAID, SELFPAY ==
[2023-08-11 08:28] LABS: Hematocrit 36.1 % (37-47); Hemoglobin 10.9 g/dL (12.0-15.0); Mean Corp Hgb Conc 30.2 g/dL (32-36); Mean Corpuscular Hgb 25.3 pg (27.0-32.0); Mean Corpuscular Volume 83.8 fL (81-99); Mean Platelet Vol. 9.4 fl (6.2-12.0); Platelet Count 323 K/mm3 (150-450); RBC Distribution Width CV 15.6 % (11.6-14.6); RBC Distribution Width SD 47.7 fl (35.1-43.9); Red Blood Count 4.31 M/mm3 (4.2-5.4); White Blood Count 7.8 K/mm3 (4.4-11.0)
[2023-08-11 09:16] LABS: ALB/GLOB Ratio 0.6 RATIO (0.9-2.4); AST(SGOT) 24 U/L (15-37); Alanine Aminotransfer ALT/SGPT 29 U/L (13-56); Alkaline Phosphatase 98 U/L (45-117); Anion Gap 7 (5-15); BUN 16 mg/dL (7-18); Calcium,Total 9.6 mg/dL (8.5-10.1); Chloride 102 mmol/L (98-107); Creatinine, Serum 0.41 mg/dL (0.55-1.02); EST Glomerular Filtration Rate 175 mL/min (>60); Est Glom Filt Rate - Afr Amer 212 mL/min (>60); Globulin 5.4 g/dL (2.2-4.2); Glucose 121 mg/dL (74-106); Potassium 3.8 mmol/L (3.5-5.1); Protein, Total 8.4 g/dL (6.4-8.2); Sodium Level 136 mmol/L (136-145)
== END ==
LOC: OLS.SW 05:00
PROVIDERS: PCP Family Medicine; Visit Provider Family Medicine
DX: D64.9 Anemia, unspecified (principal); N39.0 Urinary tract infection, site not specified; E03.9 Hypothyroidism, unspecified; N31.9 Neuromuscular dysfunction of bladder, unspecified; E46 Unspecified protein-calorie malnutrition; G93.41 Metabolic encephalopathy; G62.9 Polyneuropathy, unspecified
CPT/HCPCS: 36415; 80053; 85027

== ENCOUNTER → 2023-09-06 | Outpatient (REF) | payer MEDICARE, MEDICAID, SELFPAY ==
[2023-09-06 09:39] LABS: Color, Urine Yellow (Yellow); Glucose, Dipstick Normal (Normal); Ketone-Dipstick Negative (Negative); Leukocyte Esterase-Dipstick 500 /ul (Negative); Nitrite-Dipstick Positive (Negative); Occult Blood-Urine 25 /ul (Negative); Protein-Dipstick Negative (Negative); Urine Bilirubin Dipstick Negative (Negative); Urine Clarity Clear (Clear); Urine Urobilinogen Normal (Normal)
== END ==
LOC: OLS.SW 06:00
PROVIDERS: PCP Family Medicine; Visit Provider Family Medicine
DX: N39.0 Urinary tract infection, site not specified (principal)
CPT/HCPCS: 81002; 87077; 87086; 87088; 87186

== ENCOUNTER → 2023-09-07 | Outpatient (REF) | payer MEDICARE, MEDICAID, SELFPAY ==
[2023-09-07 09:31] LABS: Hematocrit 31.3 % (37-47); Hemoglobin 9.5 g/dL (12.0-15.0); Mean Corp Hgb Conc 30.4 g/dL (32-36); Mean Corpuscular Hgb 25.5 pg (27.0-32.0); Mean Corpuscular Volume 84.1 fL (81-99); Mean Platelet Vol. 9.5 fl (6.2-12.0); Platelet Count 267 K/mm3 (150-450); RBC Distribution Width CV 15.8 % (11.6-14.6); RBC Distribution Width SD 47.5 fl (35.1-43.9); Red Blood Count 3.72 M/mm3 (4.2-5.4); White Blood Count 6.6 K/mm3 (4.4-11.0)
[2023-09-07 09:47] LABS: Vitamin D,25 Hydroxy 39.8 ng/mL
[2023-09-07 09:53] LABS: ALB/GLOB Ratio 0.6 RATIO (0.9-2.4); AST(SGOT) 14 U/L (15-37); Alanine Aminotransfer ALT/SGPT 21 U/L (13-56); Albumin, Serum 2.7 g/dL (3.2-5.0); Alkaline Phosphatase 82 U/L (45-117); Anion Gap 8 (5-15); BUN 13 mg/dL (7-18); BUN/Creat Ratio 38.6 RATIO (10-20); Calcium,Total 8.6 mg/dL (8.5-10.1); Chloride 101 mmol/L (98-107); Creatinine, Serum 0.34 mg/dL (0.55-1.02); EST Glomerular Filtration Rate 219 mL/min (>60); Est Glom Filt Rate - Afr Amer 265 mL/min (>60); Globulin 4.3 g/dL (2.2-4.2); Glucose 158 mg/dL (74-106); Potassium 3.6 mmol/L (3.5-5.1); Sodium Level 138 mmol/L (136-145); T4 Free Direct 1.11 ng/dL (0.76-1.46); Thyroid Stim Hormone (TSH) 4.04 uIU/mL (0.358-3.74)
== END ==
LOC: OLS.SW 05:00
PROVIDERS: PCP Family Medicine; Visit Provider Family Medicine
DX: E03.9 Hypothyroidism, unspecified (principal); N39.0 Urinary tract infection, site not specified; E55.9 Vitamin D deficiency, unspecified; D64.9 Anemia, unspecified; E46 Unspecified protein-calorie malnutrition
CPT/HCPCS: 36415; 80053; 82306; 84439; 84443; 85027

== ENCOUNTER → 2023-10-01 | Outpatient (REF) | payer MEDICARE, MEDICAID, SELFPAY ==
[2023-10-01 07:43] LABS: Bacteria 0 SEEN /hpf (None Seen); Mucous, Urine 0 SEEN /hpf (<or=2+); Red Blood Cells-Urine 0 SEEN /hpf (0-5); Squamous Epithelial Cells - UA 0 SEEN /hpf (5-10); White Blood Cells 0 SEEN /hpf (0-5)
[2023-10-01 08:37] LABS: Color, Urine Yellow (Yellow); Glucose, Dipstick Normal (Normal); Ketone-Dipstick Negative (Negative); Leukocyte Esterase-Dipstick 500 /ul (Negative); Nitrite-Dipstick Positive (Negative); Occult Blood-Urine Negative /ul (Negative); Protein-Dipstick 30 mg/dl (Negative); Specific Gravity, Urine 1.015 (1.002-1.030); Urine Bilirubin Dipstick Negative (Negative); Urine Clarity Cloudy (Clear); Urine Urobilinogen Normal (Normal)
[2023-10-01 08:45] LABS: Triple Phosphate Crystals Ur 3+ /hpf (<or=1+)
== END ==
LOC: OLS.SW 00:30
PROVIDERS: PCP Family Medicine; Referring Provider Family Medicine; Visit Provider Family Medicine
DX: N39.0 Urinary tract infection, site not specified (principal)
CPT/HCPCS: 81001; 87077; 87086; 87088; 87186

== ENCOUNTER → 2023-10-19 | Outpatient (CLI) | payer MEDICARE, MEDICAID, SELFPAY ==
--- NOTE | 2023-10-19 08:25 | CT_ITS ---
STUDY: CT ABDOMEN AND PELVIS WITHOUT CONTRAST REASON FOR EXAM: Female, 48 years old. UTI RADIATION DOSAGE (If Supplied By Facility): CTDIvol = ( 20.14 ) mGy, DLP = ( 1512.03 ) mGycm TECHNIQUE: Transaxial images were obtained from the dome of the diaphragm to the symphysis pubis without oral contrast, and without intravenous contrast. Sagittal and coronal images were reconstructed. Individualized dose optimization techniques were used for this CT. COMPARISON: Comparison is made with prior study dated July 06, 2023. FINDINGS: Increased markings at the right lung base suggestive of scarring. Stable heterogeneous consolidation with bronchiectasis in the posterior medial segment of the left lower lobe. The visualized portions of the heart are within normal limits. There is decreased attenuation of the liver consistent with steatosis. I suspect layering gallstones within the gallbladder. Normal spleen. Normal pancreas. Normal bilateral adrenal glands. Normal right kidney. Normal left kidney. Normal visualized stomach. Normal small intestine. Large amount of fecal material is seen in the colon. The appendix is visualized and appears normal. Normal abdominal aorta. Normal inferior vena cava. There is a small retroperitoneal lymphadenopathy with enlarged nodes no greater than 10mm in the short axis diameter. A Mccarthy catheter is seen within an empty urinary bladder. There is absence of the uterus consistent with a prior hysterectomy. Normal abdominal wall. Once again, there is evidence of a levoconvex scoliosis as well as spina bifida. Stable marked degree of joint space timing of the right hip joint with evidence of erosive changes and the hip joint effusion. CT/Abdomen/Pelvis without Cont IMPRESSION: A Mccarthy catheter is seen within the urinary bladder. Urinary bladder is empty. Fatty infiltration of the liver. Findings suggestive of gallstones within the gallbladder lumen. Increased markings at the lung bases worse at the left lung base suggestive of bibasilar scarring. Electronically Signed: Roosevelt Galvez MD at 10:23 EDT ,
== END | disposition home or self-care (01) ==
LOC: CT 08:24
PROVIDERS: PCP Family Medicine; Referring Provider Internal Medicine Infectious Disease; Visit Provider Internal Medicine Infectious Disease
DX: N39.0 Urinary tract infection, site not specified (principal)
CPT/HCPCS: 74176

== ENCOUNTER → 2023-11-12 05:00 | Outpatient (REF) | payer MEDICARE, MEDICAID, SELFPAY ==
[2023-11-12 07:48] LABS: Mucous, Urine 0 SEEN /hpf (<or=2+)
[2023-11-12 07:48] LABS: Hematocrit 32.4 % (37-47); Hemoglobin 9.5 g/dL (12.0-15.0); Mean Corp Hgb Conc 29.3 g/dL (32-36); Mean Corpuscular Hgb 24.3 pg (27.0-32.0); Mean Corpuscular Volume 82.9 fL (81-99); Mean Platelet Vol. 9.2 fl (6.2-12.0); Platelet Count 282 K/mm3 (150-450); RBC Distribution Width CV 15.5 % (11.6-14.6); RBC Distribution Width SD 46.4 fl (35.1-43.9); Red Blood Count 3.91 M/mm3 (4.2-5.4); White Blood Count 5.4 K/mm3 (4.4-11.0)
[2023-11-12 08:00] LABS: Anion Gap 3 (5-15); BUN 13 mg/dL (7-18); BUN/Creat Ratio 29.2 RATIO (10-20); Calcium,Total 8.9 mg/dL (8.5-10.1); Chloride 100 mmol/L (98-107); Creatinine, Serum 0.44 mg/dL (0.55-1.02); EST Glomerular Filtration Rate 159 mL/min (>60); Est Glom Filt Rate - Afr Amer 192 mL/min (>60); Glucose 197 mg/dL (74-106); Potassium 3.8 mmol/L (3.5-5.1); Sodium Level 137 mmol/L (136-145)
[2023-11-12 08:18] LABS: Color, Urine Amber (Yellow); Glucose, Dipstick Normal (Normal); Ketone-Dipstick Negative (Negative); Leukocyte Esterase-Dipstick 500 /ul (Negative); Nitrite-Dipstick Positive (Negative); Occult Blood-Urine 25 /ul (Negative); Protein-Dipstick 30 mg/dl (Negative); Urine Clarity Sl. Cloudy (Clear); Urine Urobilinogen 4 mg/dl (Normal)
[2023-11-12 08:19] LABS: Urine Bilirubin Dipstick 3 mg/dL (Negative)
[2023-11-12 08:35] LABS: Amorphous Sediment 2+; Bacteria 2+ /hpf (None Seen); Triple Phosphate Crystals Ur 2+ /hpf (<or=1+)
[2023-11-12 08:36] LABS: Squamous Epithelial Cells - UA 0-5 SEEN /hpf (5-10)
[2023-11-12 08:42] LABS: Red Blood Cells-Urine 0-5 SEEN /hpf (0-5); White Blood Cells 0-5 SEEN /hpf (0-5)
== END ==
LOC: OLS.SW 05:00
PROVIDERS: PCP Family Medicine; Visit Provider Family Medicine
DX: N39.0 Urinary tract infection, site not specified (principal); I82.409 Acute embolism and thrombosis of unspecified deep veins of unspecified lower extremity; E78.5 Hyperlipidemia, unspecified
CPT/HCPCS: 36415; 80048; 81001; 85027; 87077; 87086; 87088; 87186

== ENCOUNTER → 2023-11-19 | Outpatient (REF) | payer MEDICARE, MEDICAID, SELFPAY ==
[2023-11-19 09:18] LABS: Hemoglobin A1c 5.9 % (3.8-5.6)
[2023-11-19 09:21] LABS: Vitamin D,25 Hydroxy 32.7 ng/mL
[2023-11-19 09:23] LABS: Thyroid Stim Hormone (TSH) 2.79 uIU/mL (0.358-3.74)
== END ==
LOC: OLS.SW 04:00
PROVIDERS: PCP Family Medicine; Referring Provider Family Medicine; Visit Provider Family Medicine
DX: E66.9 Obesity, unspecified (principal); E03.9 Hypothyroidism, unspecified
CPT/HCPCS: 36415; 82306; 83036; 84443

== ENCOUNTER → 2023-11-25 06:10 | Outpatient (REF) | payer MEDICARE, MEDICAID, SELFPAY ==
[2023-11-25 10:31] LABS: Anion Gap 6 (5-15); BUN 16 mg/dL (7-18); BUN/Creat Ratio 57.1 RATIO (10-20); Calcium,Total 9.1 mg/dL (8.5-10.1); Chloride 102 mmol/L (98-107); Creatinine, Serum 0.28 mg/dL (0.55-1.02); EST Glomerular Filtration Rate 271 mL/min (>60); Est Glom Filt Rate - Afr Amer 328 mL/min (>60); Glucose 120 mg/dL (74-106); Sodium Level 138 mmol/L (136-145)
== END ==
LOC: OLS.SW 06:10
PROVIDERS: PCP Family Medicine; Visit Provider Family Medicine
DX: E87.70 Fluid overload, unspecified (principal)
CPT/HCPCS: 36415; 80048

== ENCOUNTER 2024-01-28 10:06 | Day surgery (SDC) | payer MEDICARE, MEDICAID, SELFPAY ==
[2024-01-28 11:00] VITALS: BP 100/64; PULSE 87; RESP 16; TEMP 36.6; O2SAT 95; BMI 46.3
[2024-01-28] MEDS: Lactated Ringers 1,000 ML 15 ML IV (11:00)
[2024-01-28 11:48] VITALS: BP 160/80; O2SAT 100
--- NOTE | 2024-01-28 12:15 | RAD_ITS ---
HISTORY: CAUDAL BLOCK COMPARISON: None TECHNIQUE: A total of 1 fluoroscopic images were saved without a radiologist present. FINDINGS: Total fluoroscopy time: 3.6 seconds Cumulative air kerma: 4.32 mGy RAD/Fluor Guidance for Spine Inj IMPRESSION: Fluoroscopic assistance for caudal block. Please see operative report for additional information. Electronically Signed: Keven Mckoy MD at 8:20 EDT ,
[2024-01-28 12:17] VITALS: BP 184/138; O2SAT 100
[2024-01-28 12:20] VITALS: O2SAT 100
[2024-01-28] MEDS: Lidocaine 0.5% (50 ml) 50 ML Vial (12:22)
[2024-01-28] MEDS: Triamcinolone Acetonide 40 MG/ML Vial (12:23)
[2024-01-28 12:57] VITALS: BP 89/63; PULSE 71; RESP 18; O2SAT 94
--- NOTE | 2024-01-28 13:03 | SUR.PHASEII ---
THIS NURSE ATTEMPTED TO CALL [facility] AND GIVE REPORT ON THE PATIENT. I ASKED FOR HER NURSE AND WAS TRANSFERED. I GOT A VOICEMAIL AND LEFT ONE THE NURSE THAT SHE WAS RETURNING, VITALS STABLE AND SHE WAS DONE UNDER A STRAIGHT LOCAL AND TO CALL WITH ANY QUESTIONS.
--- NOTE | 2024-01-28 13:10 | SUR.PHASEII ---
SQUAD STAFF HELPED ME ROLL PATIENT TO THE SIDE SO I COULD LOOK AT HER CAUDAL PUNCTURE SITE. SITE IS COVERED WITH A BANDAID AND IT IS DRY AND INTACT.
== END 2024-01-28 13:12 | disposition home or self-care (01) ==
LOC: SDC 10:09 → AC 10:09
PROVIDERS: PCP Family Medicine; Referring Provider Anesthesiology Pain Medicine; Visit Provider Anesthesiology Pain Medicine
PROC: 3E0S3BZ Introduction of Anesthetic Agent into Epidural Space, Percutaneous Approach (ICD-10-PCS; CPT 62282; principal; 2024-01-28 12:15)
DX: M54.18 Radiculopathy, sacral and sacrococcygeal region (principal); M48.061 Spinal stenosis, lumbar region without neurogenic claudication
CPT/HCPCS: 62323; 64483; 77003; J7120

== ENCOUNTER → 2024-02-16 05:00 | Outpatient (REF) | payer MEDICARE, MEDICAID, SELFPAY ==
[2024-02-16 09:16] LABS: Hematocrit 34.7 % (37-47); Hemoglobin 10.3 g/dL (12.0-15.0); Mean Corp Hgb Conc 29.7 g/dL (32-36); Mean Corpuscular Hgb 23.7 pg (27.0-32.0); Mean Platelet Vol. 9.3 fl (6.2-12.0); Platelet Count 281 K/mm3 (150-450); RBC Distribution Width CV 16.2 % (11.6-14.6); RBC Distribution Width SD 46.5 fl (35.1-43.9); Red Blood Count 4.34 M/mm3 (4.2-5.4)
[2024-02-16 09:36] LABS: Anion Gap 6 (5-15); BUN 9 mg/dL (7-18); BUN/Creat Ratio 26.5 RATIO (10-20); Chloride 98 mmol/L (98-107); Creatinine, Serum 0.34 mg/dL (0.55-1.02); EST Glomerular Filtration Rate 217 mL/min (>60); Est Glom Filt Rate - Afr Amer 262 mL/min (>60); Glucose 105 mg/dL (74-106); Potassium 3.6 mmol/L (3.5-5.1); Sodium Level 135 mmol/L (136-145)
== END ==
LOC: OLS.SW 05:00
PROVIDERS: PCP Family Medicine; Visit Provider Family Medicine
DX: Z01.812 Encounter for preprocedural laboratory examination (principal)
CPT/HCPCS: 36415; 80048; 85027

== ENCOUNTER → 2024-02-17 05:00 | Outpatient (REF) | payer MEDICARE, MEDICAID, SELFPAY ==
[2024-02-17 08:57] LABS: Anion Gap 6 (5-15); BUN 11 mg/dL (7-18); BUN/Creat Ratio 26.4 RATIO (10-20); Calcium,Total 8.8 mg/dL (8.5-10.1); Chloride 101 mmol/L (98-107); Creatinine, Serum 0.42 mg/dL (0.55-1.02); EST Glomerular Filtration Rate 172 mL/min (>60); Est Glom Filt Rate - Afr Amer 208 mL/min (>60); Glucose 166 mg/dL (74-106); Potassium 3.2 mmol/L (3.5-5.1); Sodium Level 139 mmol/L (136-145)
== END ==
LOC: OLS.SW 05:00
PROVIDERS: PCP Family Medicine; Visit Provider Family Medicine
DX: R60.9 Edema, unspecified (principal)
CPT/HCPCS: 36415; 80048

== ENCOUNTER → 2024-02-24 | Outpatient (REF) | payer MEDICARE, MEDICAID, SELFPAY ==
[2024-02-24 10:00] LABS: Anion Gap 3 (5-15); BUN 14 mg/dL (7-18); BUN/Creat Ratio 43.2 RATIO (10-20); Calcium,Total 9.3 mg/dL (8.5-10.1); Chloride 102 mmol/L (98-107); Creatinine, Serum 0.32 mg/dL (0.55-1.02); EST Glomerular Filtration Rate 229 mL/min (>60); Est Glom Filt Rate - Afr Amer 277 mL/min (>60); Glucose 90 mg/dL (74-106); Potassium 4.2 mmol/L (3.5-5.1); Sodium Level 137 mmol/L (136-145)
== END ==
LOC: OLS.SW 05:50
PROVIDERS: PCP Family Medicine; Visit Provider Family Medicine
DX: J96.21 Acute and chronic respiratory failure with hypoxia (principal); G93.41 Metabolic encephalopathy
CPT/HCPCS: 36415; 80048

== ENCOUNTER → 2024-03-09 | Outpatient (REF) | payer MEDICARE, MEDICAID, SELFPAY ==
[2024-03-09 08:19] LABS: Hematocrit 32.4 % (37-47); Hemoglobin 9.5 g/dL (12.0-15.0); Mean Corp Hgb Conc 29.3 g/dL (32-36); Mean Corpuscular Hgb 23.8 pg (27.0-32.0); Mean Corpuscular Volume 81.2 fL (81-99); Mean Platelet Vol. 9.4 fl (6.2-12.0); Platelet Count 318 K/mm3 (150-450); RBC Distribution Width CV 17.2 % (11.6-14.6); Red Blood Count 3.99 M/mm3 (4.2-5.4); White Blood Count 6.6 K/mm3 (4.4-11.0)
[2024-03-09 08:45] LABS: ALB/GLOB Ratio 0.6 RATIO (0.9-2.4); AST(SGOT) 14 U/L (15-37); Alanine Aminotransfer ALT/SGPT 24 U/L (13-56); Albumin, Serum 2.7 g/dL (3.2-5.0); Alkaline Phosphatase 93 U/L (45-117); Anion Gap 5 (5-15); BUN 12 mg/dL (7-18); Calcium,Total 8.9 mg/dL (8.5-10.1); Chloride 104 mmol/L (98-107); Creatinine, Serum 0.29 mg/dL (0.55-1.02); EST Glomerular Filtration Rate 257 mL/min (>60); Est Glom Filt Rate - Afr Amer 311 mL/min (>60); Globulin 4.5 g/dL (2.2-4.2); Glucose 123 mg/dL (74-106); Potassium 3.4 mmol/L (3.5-5.1); Protein, Total 7.2 g/dL (6.4-8.2); Sodium Level 141 mmol/L (136-145); T4 Free Direct 1.26 ng/dL (0.76-1.46)
== END ==
LOC: OLS.SW 07:00
PROVIDERS: PCP Family Medicine; Visit Provider Family Medicine
DX: Z79.899 Other long term (current) drug therapy (principal)
CPT/HCPCS: 36415; 80053; 82306; 84439; 84443; 85027

== ENCOUNTER → 2024-03-16 | Outpatient (REF) | payer MEDICARE, MEDICAID, SELFPAY ==
[2024-03-16 10:57] LABS: Anion Gap 3 (5-15); BUN 9 mg/dL (7-18); BUN/Creat Ratio 34.6 RATIO (10-20); Calcium,Total 8.7 mg/dL (8.5-10.1); Chloride 102 mmol/L (98-107); Creatinine, Serum 0.26 mg/dL (0.55-1.02); EST Glomerular Filtration Rate 295 mL/min (>60); Est Glom Filt Rate - Afr Amer 357 mL/min (>60); Glucose 105 mg/dL (74-106); Potassium 3.7 mmol/L (3.5-5.1); Sodium Level 138 mmol/L (136-145)
== END ==
LOC: OLS.SW 05:55
PROVIDERS: PCP Family Medicine; Visit Provider Family Medicine
DX: E87.6 Hypokalemia (principal)
CPT/HCPCS: 36415; 80048

== ENCOUNTER → 2024-03-17 | Outpatient (REF) | payer MEDICARE, MEDICAID, SELFPAY ==
[2024-03-17 08:48] LABS: BNP,B-Type NATRIURETIC PEPTIDE 13.4 pg/mL (0-100)
== END ==
LOC: OLS.SW 07:38
PROVIDERS: PCP Family Medicine; Visit Provider Family Medicine
DX: R60.9 Edema, unspecified (principal)
CPT/HCPCS: 36415; 83880

== ENCOUNTER → 2024-04-12 | Outpatient (REF) | payer MEDICARE, MEDICAID, SELFPAY ==
[2024-04-12 08:31] LABS: Anion Gap 4 (5-15); BUN 13 mg/dL (7-18); BUN/Creat Ratio 39.2 RATIO (10-20); Calcium,Total 8.8 mg/dL (8.5-10.1); Chloride 104 mmol/L (98-107); Creatinine, Serum 0.33 mg/dL (0.55-1.02); EST Glomerular Filtration Rate 222 mL/min (>60); Est Glom Filt Rate - Afr Amer 269 mL/min (>60); Glucose 104 mg/dL (74-106); Potassium 3.7 mmol/L (3.5-5.1); Sodium Level 140 mmol/L (136-145)
== END ==
LOC: OLS.SW 05:00
PROVIDERS: PCP Family Medicine; Visit Provider Family Medicine
DX: E66.01 Morbid (severe) obesity due to excess calories (principal); J96.21 Acute and chronic respiratory failure with hypoxia; Z68.42 Body mass index [BMI] 45.0-49.9, adult
CPT/HCPCS: 36415; 80048

== ENCOUNTER → 2024-05-25 19:00 | Outpatient (REF) | payer MEDICARE, MEDICAID, SELFPAY | LOC: OLS.SW 19:00 | PROVIDERS: PCP Family Medicine; Visit Provider Family Medicine | DX: Z13.9 Encounter for screening, unspecified (principal); K59.00 Constipation, unspecified | CPT/HCPCS: 82274 ==

== ENCOUNTER → 2024-06-12 | Outpatient (REF) | payer MEDICARE, MEDICAID, SELFPAY ==
[2024-06-12 09:27] LABS: Absolute Lymphocyte Count 2.55 X10^3/uL (0.83-4.51); Absolute Neutrophil Count 3.3 X10^3/uL (2.0-7.7); Basophil# 0.05 X10^3/uL; Basophil% 0.7 % (0-1); Eosinophil# 0.35 X10^3/uL; Eosinophils% 5.2 % (0-5); Hematocrit 32.9 % (37-47); Hemoglobin 9.9 g/dL (12.0-15.0); Lymphocyte # 2.55 X10^3/ul (0.83-4.51); Lymphocyte % 37.6 % (19-41); Mean Corp Hgb Conc 30.1 g/dL (32-36); Mean Corpuscular Volume 83.1 fL (81-99); Mean Platelet Vol. 9.4 fl (6.2-12.0); Monocyte% 7.4 % (0-10); NRBC Flagged by Analyzer 0 % (0-5); Neutrophil # 3.32 X10^3/uL (2.7-7.7); Neutrophil % 48.8 % (47-70); Platelet Count 342 K/mm3 (150-450); RBC Distribution Width SD 48.2 fl (35.1-43.9); Red Blood Count 3.96 M/mm3 (4.2-5.4); White Blood Count 6.8 K/mm3 (4.4-11.0)
[2024-06-12 09:41] LABS: Vitamin B12 414 pg/mL (211-911); Vitamin D,25 Hydroxy 41.4 ng/mL
[2024-06-12 09:51] LABS: ALB/GLOB Ratio 0.5 RATIO (0.9-2.4); AST(SGOT) 18 U/L (15-37); Alanine Aminotransfer ALT/SGPT 27 U/L (13-56); Albumin, Serum 2.8 g/dL (3.2-5.0); Alkaline Phosphatase 94 U/L (45-117); Anion Gap 8 (5-15); BUN 11 mg/dL (7-18); BUN/Creat Ratio 30.7 RATIO (10-20); Calcium,Total 8.8 mg/dL (8.5-10.1); Chloride 102 mmol/L (98-107); Cholesterol 184 mg/dL (200); Creatinine, Serum 0.36 mg/dL (0.55-1.02); EST Glomerular Filtration Rate 204 mL/min (>60); Est Glom Filt Rate - Afr Amer 247 mL/min (>60); Globulin 5.1 g/dL (2.2-4.2); Glucose 106 mg/dL (74-106); High Density Lipoprotein 58 mg/dL; Potassium 3.4 mmol/L (3.5-5.1); Protein, Total 7.9 g/dL (6.4-8.2); Sodium Level 139 mmol/L (136-145); Triglycerides 91 mg/dL; Very Low Density Lipoprotein 18 mg/dL (5-40)
== END ==
LOC: OLS.SW 05:00
PROVIDERS: PCP Family Medicine; Visit Provider Internal Medicine
DX: E03.9 Hypothyroidism, unspecified (principal); Z79.899 Other long term (current) drug therapy
CPT/HCPCS: 36415; 80053; 80061; 82306; 82607; 84443; 85025

== ENCOUNTER 2024-07-03 10:51 | Day surgery (SDC) | payer MEDICARE, MEDICAID, SELFPAY ==
[2024-07-03] VITALS (8 sets, daily range): BP systolic 93–137; BP diastolic 71–108; PULSE 83–95; RESP 17–20; TEMP 36.3–36.6; O2SAT 95–98; BMI 47.2
--- NOTE | 2024-07-03 12:13 | PRE.ANES_ITS ---
ASA Classification* ASA Classification ASA Classification: 3 Assessment & Plan Anesthesia* Anesthesia Assessment Anesthesia Assessment: Discussed sedation and/or anesthesia options, risks, benefits, and alternatives with patient/parents/legal guardian/POA. Questions invited. The patient/parents/legal guardian/POA seems to understand and agrees to proceed with anesthesia plan. Reviewed the physical assessment, medical history, allergy history and patient home medications list prior to surgery/procedure/anesthetic and documented any changes. Performed airway and anesthesia risk assessments. Anesthesia Type Anesthesia Type: MAC History Source History Obtained from:: Patient and Chart Anesthesia Focused Assessment* Temperature: 97.4 F Pulse Rate: 84 Blood Pressure: 93/71 Respiratory Rate: 17 Pulse Ox: 98 Oxygen Delivery Method: Room Air Airway Assessment Mouth opens: 2 cm Mallampati Score: II Teeth Condition: Dentures and Full Neck Range of motion (ROM): Full ROM Focused Labs Anesthesia Preop lab: CBC WBC 7.0 K/mm3 (4.4-11.0) 07/03/24 07:50 RBC 3.95 M/mm3 (4.2-5.4) L 07/03/24 07:50 Hgb 10.1 g/dL (12.0-15.0) L 07/03/24 07:50 Hct 33.1 % (37-47) L 07/03/24 07:50 Plt Count 312 K/mm3 (150-450) 07/03/24 07:50 CHEMISTRY Potassium 3.8 mmol/L (3.5-5.1) 07/03/24 07:50 Sodium 138 mmol/L (136-145) 07/03/24 07:50 Magnesium 2.0 mg/dL (1.6-2.6) 11/15/22 05:08 BUN 12 mg/dL (7-18) 07/03/24 07:50 Creatinine 0.30 mg/dL (0.55-1.02) L 07/03/24 07:50 Glucose 105 mg/dL (74-106) 07/03/24 07:50 TSH 4.310 uIU/mL (0.358-3.740) H 06/12/24 07:35 COAG PT 14.2 SECONDS (11.7-14.9) 07/02/23 23:15 Pre-Assessment Diagnosis/Proposed Procedure Planned Operative Procedure(s): Caudal Injection Anesthesia History 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 When Was Last Pacemaker Check QUESTION #4 FULL TEXT: You/Your Family Experience fever (hyperthermia) with Anesthesia Any additional information?: Yes Hx Hospitalization: Yes Any Problems With Anesthesia: No Cholinesterase deficiency: No You/your family experience fever (hyperthermia) with anesthesia: No Last Oral Intake Last Oral intake: Last Oral Intake NPO since 06:00 07/03/24 11:20 Meds taken in AM with sips of Yes 07/03/24 11:20 water? 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 Female HX of Motion Sickness HX of N/V After Surgery Non-Smoker Duration of Surgery greater than 60 minutes Number of Risk Factors PONV Score Any additional information?: Yes Female: Yes HX of Motion Sickness: No HX of N/V After Surgery: No Non-Smoker: No Duration of Surgery greater than 60 minutes: No Number of Risk Factors: 1 PONV Score: Low Risk Height & Weight Height & Weight: Anesthesia: Height & Weight Height 5 ft 1 in 07/03/24 11:20 Weight: 113.398 kg 07/03/24 11:20 Body Mass Index (BMI) 47.2 07/03/24 11:20 Respiratory Assessment Respiratory Assessment - brake machine operator: Respiratory Tract Infection Hx - brake machine operator Hx Respiratory Tract Infection No 05/22/20 15:50 STOP Sleep Apnea STOP Sleep Apnea - brake machine operator: STOP Sleep Apnea - brake machine operator Hx Hypertension No 07/03/23 00:53 Hx Sleep Apnea Yes 07/07/23 17:33 CPAP No: noncompliant 07/07/23 15:55 BIPAP No 07/03/23 00:53 Do you snore loudly (louder than talking or can be heard Do you often feel tired/ fatigued/ sleepy during daytime? Has anyone observed you stop breathing during sleep? STOP Results QUESTION #5 FULL TEXT : Do you snore loudly (louder than talking or can be heard through closed doors)? 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 Specify any problems Hx of Preganancy in last 3 Months Nurse Filling Out Transfusion & Questions: Date: Time: Patient unable to answer at this time (ie. 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: /Reproductive Hx- brake machine operator Hx Now Gestational Age (in weeks): EDC: Hx Hx Para Hx Section SAB No 07/05/23 14:54 PFSH Medical History Seizure Neuromuscular dysfunction of bladder History of Kynle-Bmgsjcavc-Ucqrp (WPW) syndrome Spinal cord injury (2010) Abnormal EKG Pre-operative cardiovascular exam, new EKG abnormalities c/w ischemia Exogenous obesity Paraplegia Malnutrition of mild degree Cocaine abuse Heroin use Chronic headaches Right ischial pressure sore, stage 4 Left femoral shaft fracture Deep vein thrombosis of right lower extremity Hypothyroidism Chronic pain Hx: UTI (urinary tract infection) Depression Suprapubic catheter Quadriparesis Home Medications ?Medication ?Instructions ?Recorded ?Last Taken ?Type levothyroxine 75 mcg tablet 75 mcg PO DAILY hypothyroidism 05/28/15 07/03/24 History duloxetine 60 mg capsule,delayed 90 mg PO QHS depression 08/21/15 07/02/24 Hi story release baclofen 10 mg tablet 40 mg PO Q6H SPASMS 08/16/16 04/22/21 History acetaminophen 325 mg tablet 650 mg PO Q4H PRN PRN Pain or fever 03/01/18 04/21/21 History bisacodyl 10 mg rectal suppository 10 mg KS QHS PRN Constipation 03/01/18 04/21/21 History omeprazole 20 mg capsule,delayed 20 mg PO LUNCH GERD 03/01/18 07/02/24 History release furosemide 40 mg tablet 40 mg PO BREAKFAST edema 05/26/18 07/03/24 History sennosides 8.6 mg tablet 17.2 mg PO BID constipation 08/16/18 07/02/24 History cholecalciferol (vitamin D3) 50 2,000 unit PO LUNCH SUPPLEMENT 08/08/19 07/02/24 History mcg (2,000 unit) capsule polyethylene glycol 3350 17 gram 17 gm PO QHS constipation 08/08/19 04/21/21 History oral powder packet docusate sodium 100 mg capsule 200 mg PO BID constipation 10/11/20 04/21/21 History (Colace) furosemide 20 mg tablet 20 mg PO .evening edema 04/21/21 07/02/24 History gabapentin 800 mg tablet 1,600 mg PO BID NEUROPATHY 04/22/21 07/03/24 History isosorbide mononitrate 30 mg 30 mg PO QHS angina 04/22/21 07/02/24 History tablet,extended release 24 hr oxybutynin chloride 10 mg 30 mg PO DAILY Bladder spasms 04/22/21 07/02/24 History tablet,extended release 24 hr phenazopyridine 200 mg tablet 200 mg PO TID PRN Bladder Spasms 05/27/21 Unknown History (Pyridium) loperamide 2 mg tablet 1 mg PO Q4H PRN Diarrhea 06/03/22 Unknown History magnesium hydroxide 400 mg/5 mL 30 ml PO DAILY PRN Constipation 06/03/22 07/02/24 History oral suspension (Milk of Magnesia) melatonin 5 mg tablet 5 mg PO QHS insomnia 06/03/22 07/02/24 History mirtazapine 30 mg tablet 15 mg PO QHS insomnia 06/03/22 07/02/24 History ondansetron HCl 4 mg tablet 4 mg PO Q4H PRN Nausea 06/03/22 Unknown History simethicone 80 mg tablet 80 mg PO DAILY PRN Gastric Reflux 06/03/22 Unknown History buprenorphine 15 mcg/hour weekly 20 mcg transdermal Q7D pain 09/12/22 07/03/24 History transdermal patch (Butrans) cetirizine 10 mg tablet 10 mg PO QPM allergies 09/12/22 07/02/24 History nystatin 100,000 unit/gram topical 1 applic topical BID #15 grams 11/16/22 07/02/24 Rx powder (Nyamyc) benzonatate 100 mg capsule 100 mg PO Q6H PRN 07/02/23 Unknown History buspirone 10 mg tablet 10 mg PO BID 07/02/23 07/02/24 History cetirizine 10 mg capsule (All Day 10 mg PO DAILY PRN allergies 07/02/23 07/03/24 History Allergy (cetirizine)) diphenhydramine HCl 25 mg tablet 50 mg PO Q8H PRN itching 07/02/23 Unknown History (Allergy (diphenhydramine)) linaclotide 145 mcg capsule 145 mcg PO LUNCH constipation 07/02/23 07/02/24 History (Linzess) mirabegron 25 mg tablet,extended 25 mg PO LUNCH 07/02/23 07/02/24 History release 24 hr (Myrbetriq) paroxetine HCl 10 mg tablet 20 mg PO QHS 07/02/23 07/02/24 History trazodone 50 mg tablet 50 mg PO QHS 07/02/23 07/02/24 History acidophilus 25 million 2 tab PO BID #0 tabs 07/08/23 Unknown Rx cell-pectin, citrus 100 mg tablet menthol 0.44 %-zinc oxide 20.6 % 1 applic topical TID #0 grams 07/08/23 07/02/24 Rx topical ointment (Calmoseptine) piperacillin-tazobactam 3.375 3.375 g (56.25 mL) IV Q8H 7 days 07/08/23 Unknown Rx gram/50 mL dextrose(iso-os) IV piggyback (Zosyn) potassium chloride 10 mEq 20 meq (2 x 10 mEq) PO LUNCH 07/08/23 07/02/24 Rx capsule,extended release hypokalemia #30 caps gabapentin 600 mg tablet 1,200 mg PO QHS 07/03/24 07/02/24 History (Neurontin) Allergy/AdvReac Type Severity Reaction Status Date / Time apixaban (From Eliquis) Allergy Rash Verified 07/03/24 11:05 coconut oil Allergy cant breath Verified 07/03/24 11:05 mometasone furoate (From Allergy Rash Verified 07/03/24 11:05 Elocon) nitrofurantoin Allergy Unknown Verified 07/03/24 11:05 rivaroxaban (From Xarelto) Allergy Rash Verified 07/03/24 11:05 Sulfa (Sulfonamide Allergy Shortness Verified 07/03/24 11:05 Antibiotics) of breath Penicillins AdvReac NEEDS Verified 07/03/24 11:05 FOLLOW-UP Family History Mother Diabetes Grandfather CAD (coronary artery disease) Colon cancer Grandmother Breast cancer Aunt Ovarian cancer Surgical History History of tracheostomy (2010) Social History Smoking Status: Never smoker Review of Systems (Anesthesia) ROS Narrative System reviewed and no additional complaints, except as documented.
--- NOTE | 2024-07-03 12:15 | RAD_ITS ---
PROCEDURE: Caudal block. DATE OF EXAMINATION: July 03, 2024 INDICATION: Female, 49 years old. Chronic low-back pain FLUOROSCOPY TIME (if supplied): (5.1 second) minutes/seconds. 4.37 mGy. One image was provided. RAD/Fluor Guidance for Spine Inj IMPRESSION: Intraoperative imaging provided for caudal block. Electronically Signed: Roosevelt Galvez MD at 15:10 EST ,
[2024-07-03] MEDS: Triamcinolone Acetonide 40 MG/ML Vial (12:32)
[2024-07-03] MEDS: Lidocaine 0.5% (50 ml) 50 ML Vial (12:32)
--- NOTE | 2024-07-03 12:44 | PCM.POST.ANE ---
Anesthesia: Postop Eval I Current Vital Signs Temperature: 97.8 F Pulse Rate: 95 Blood Pressure: 108/78 Respiratory Rate: 20 Pulse Ox: 95 Assessment Airway patent: Yes Spontaneous unlabored respirations: Yes nausea: No Vomiting: No Anesthesia Complication: No Fluid Hydration Crystalloid volume administer (ml): 0 Total IV fluid infused: 0 Progress Note Anesthesia document: Postop Eval 1 completed: Yes
--- NOTE | 2024-07-03 14:21 | POSTOPAN2_ITS ---
Anesthesia Postop Eval I Sum Postop Eval Completion status Anesthesia document: Postop Eval 1 completed: Yes Anesthesia Postop Eval I Summary Anesthesia Postop Eval I Summary: Anesthesia Postop Eval I: Assessment Summary Airway patent Yes 07/03/24 12:44 MILL MACHINIST.CSIR Spontaneous unlabored Yes 07/03/24 12:44 MILL MACHINIST.CSIR respirations Mental status nausea No 07/03/24 12:44 MILL MACHINIST.CSIR Vomiting No 07/03/24 12:44 MILL MACHINIST.CSIR Anesthesia Postop Eval I: Fluid Summary Crystalloid volume administer 0 07/03/24 12:44 MILL MACHINIST.CSIR (ml) Colloids volume administered ( ml) Blood Product volume administered (ml) Total IV fluid infused 0 07/03/24 12:44 MILL MACHINIST.CSIR Anesthesia Postop Eval I: Summary Notes Anesthesia Complication No 07/03/24 12:44 MILL MACHINIST.CSIR Anesthesia Complication Comment: Post-operative progress note Anesthesia: Postop Eval II Evaluation Mental status: Awake Pain Level: 2 nausea: No Vomiting: No Complications Anesthesia Complication: No
--- NOTE | 2024-07-03 14:21 | PCM.POSTANE2 ---
Anesthesia Postop Eval I Sum Postop Eval Completion status Anesthesia document: Postop Eval 1 completed: Yes Anesthesia Postop Eval I Summary Anesthesia Postop Eval I Summary: Anesthesia Postop Eval I: Assessment Summary Airway patent Yes 07/03/24 12:44 HEATER OPERATOR.CSIR Spontaneous unlabored Yes 07/03/24 12:44 HEATER OPERATOR.CSIR respirations Mental status nausea No 07/03/24 12:44 HEATER OPERATOR.CSIR Vomiting No 07/03/24 12:44 HEATER OPERATOR.CSIR Anesthesia Postop Eval I: Fluid Summary Crystalloid volume administer 0 07/03/24 12:44 HEATER OPERATOR.CSIR (ml) Colloids volume administered ( ml) Blood Product volume administered (ml) Total IV fluid infused 0 07/03/24 12:44 HEATER OPERATOR.CSIR Anesthesia Postop Eval I: Summary Notes Anesthesia Complication No 07/03/24 12:44 HEATER OPERATOR.CSIR Anesthesia Complication Comment: Post-operative progress note Anesthesia: Postop Eval II Evaluation Mental status: Awake Pain Level: 2 nausea: No Vomiting: No Complications Anesthesia Complication: No
== END 2024-07-03 14:30 | disposition home or self-care (01) ==
LOC: SDC 10:51 → AC 10:52
PROVIDERS: PCP Family Medicine; Referring Provider Anesthesiology Pain Medicine; Visit Provider Anesthesiology Pain Medicine
PROC: 3E0S3BZ Introduction of Anesthetic Agent into Epidural Space, Percutaneous Approach (ICD-10-PCS; CPT 62282; principal; 2024-07-03 11:55)
DX: M54.18 Radiculopathy, sacral and sacrococcygeal region (principal); G82.50 Quadriplegia, unspecified; G20.A1 Parkinson's disease without dyskinesia, without mention of fluctuations; M54.50 Low back pain, unspecified; G89.29 Other chronic pain; Z99.3 Dependence on wheelchair
CPT/HCPCS: 62323; 64483; 77003; A4216

== ENCOUNTER → 2024-07-03 | Outpatient (REF) | payer MEDICARE, MEDICAID, SELFPAY ==
[2024-07-03 09:33] LABS: Mucous, Urine 0 SEEN /hpf (<or=2+); Red Blood Cells-Urine 0 SEEN /hpf (0-5)
[2024-07-03 10:05] LABS: Color, Urine Yellow (Yellow); Glucose, Dipstick Normal (Normal); Ketone-Dipstick Negative (Negative); Leukocyte Esterase-Dipstick 500 /ul (Negative); Nitrite-Dipstick Positive (Negative); Occult Blood-Urine 50 /ul (Negative); Protein-Dipstick 15 mg/dl (Negative); Urine Bilirubin Dipstick Negative (Negative); Urine Clarity Sl. Cloudy (Clear); Urine Urobilinogen 1 mg/dl (Normal)
[2024-07-03 10:05] LABS: Absolute Lymphocyte Count 2.57 X10^3/uL (0.83-4.51); Absolute Neutrophil Count 3.5 X10^3/uL (2.0-7.7); Basophil# 0.04 X10^3/uL; Basophil% 0.6 % (0-1); Eosinophil# 0.27 X10^3/uL; Eosinophils% 3.9 % (0-5); Hematocrit 33.1 % (37-47); Hemoglobin 10.1 g/dL (12.0-15.0); Lymphocyte # 2.57 X10^3/ul (0.83-4.51); Lymphocyte % 36.8 % (19-41); Mean Corp Hgb Conc 30.5 g/dL (32-36); Mean Corpuscular Hgb 25.6 pg (27.0-32.0); Mean Corpuscular Volume 83.8 fL (81-99); Mean Platelet Vol. 9.6 fl (6.2-12.0); Monocyte# 0.56 X10^3/uL; NRBC Flagged by Analyzer 0 % (0-5); Neutrophil # 3.53 X10^3/uL (2.7-7.7); Neutrophil % 50.4 % (47-70); Platelet Count 312 K/mm3 (150-450); RBC Distribution Width CV 15.4 % (11.6-14.6); Red Blood Count 3.95 M/mm3 (4.2-5.4)
[2024-07-03 10:15] LABS: Bacteria 1+ /hpf (None Seen); Squamous Epithelial Cells - UA 0-5 SEEN /hpf (5-10); White Blood Cells 0-5 SEEN /hpf (0-5)
[2024-07-03 10:16] LABS: Anion Gap 4 (5-15); BUN 12 mg/dL (7-18); BUN/Creat Ratio 40.3 RATIO (10-20); Chloride 100 mmol/L (98-107); EST Glomerular Filtration Rate 252 mL/min (>60); Est Glom Filt Rate - Afr Amer 305 mL/min (>60); Glucose 105 mg/dL (74-106); Potassium 3.8 mmol/L (3.5-5.1); Sodium Level 138 mmol/L (136-145)
[2024-07-03 10:16] LABS: Amorphous Sediment 2+; Triple Phosphate Crystals Ur 1+ /hpf (<or=1+)
== END ==
LOC: OLS.SW 07:50
PROVIDERS: PCP Family Medicine; Visit Provider Internal Medicine
DX: N39.0 Urinary tract infection, site not specified (principal); R53.81 Other malaise
CPT/HCPCS: 36415; 80048; 81001; 85025; 87086; 87088

== ENCOUNTER → 2024-07-05 16:00 | Outpatient (REF) | payer MEDICARE, MEDICAID, SELFPAY ==
[2024-07-06 08:00] LABS: Mucous, Urine 0 SEEN /hpf (<or=2+); Squamous Epithelial Cells - UA 0 SEEN /hpf (5-10)
[2024-07-06 08:35] LABS: Color, Urine Yellow (Yellow); Glucose, Dipstick Normal (Normal); Ketone-Dipstick 5 mg/dl (Negative); Leukocyte Esterase-Dipstick 500 /ul (Negative); Nitrite-Dipstick Positive (Negative); Occult Blood-Urine 250 /ul (Negative); Protein-Dipstick 30 mg/dl (Negative); Urine Bilirubin Dipstick Negative (Negative); Urine Clarity Sl. Cloudy (Clear); Urine Urobilinogen Normal (Normal)
[2024-07-06 09:13] LABS: Bacteria 1+ /hpf (None Seen); Calcium Oxalate Crystals Ur 2+ /hpf (<or=2+); Red Blood Cells-Urine 0-5 SEEN /hpf (0-5); Triple Phosphate Crystals Ur 1+ /hpf (<or=1+); White Blood Cells 25-50 SEEN /hpf (0-5)
== END ==
LOC: OLS.SW 16:00
PROVIDERS: PCP Family Medicine; Visit Provider Internal Medicine
DX: N39.0 Urinary tract infection, site not specified (principal)
CPT/HCPCS: 81001; 87077; 87086; 87088; 87186

== ENCOUNTER → 2024-07-07 | Outpatient (REF) | payer MEDICARE, MEDICAID, SELFPAY ==
[2024-07-07 07:47] LABS: Absolute Lymphocyte Count 3.08 X10^3/uL (0.83-4.51); Absolute Neutrophil Count 5.3 X10^3/uL (2.0-7.7); Basophil# 0.05 X10^3/uL; Basophil% 0.5 % (0-1); Eosinophil# 0.08 X10^3/uL; Eosinophils% 0.9 % (0-5); Hematocrit 33.2 % (37-47); Hemoglobin 10.2 g/dL (12.0-15.0); Lymphocyte # 3.08 X10^3/ul (0.83-4.51); Lymphocyte % 32.7 % (19-41); Mean Corp Hgb Conc 30.7 g/dL (32-36); Mean Corpuscular Hgb 25.5 pg (27.0-32.0); Mean Platelet Vol. 9.5 fl (6.2-12.0); Monocyte# 0.88 X10^3/uL; Monocyte% 9.4 % (0-10); NRBC Flagged by Analyzer 0 % (0-5); Neutrophil # 5.29 X10^3/uL (2.7-7.7); Neutrophil % 56.2 % (47-70); Platelet Count 359 K/mm3 (150-450); RBC Distribution Width CV 15.7 % (11.6-14.6); RBC Distribution Width SD 47.6 fl (35.1-43.9); White Blood Count 9.4 K/mm3 (4.4-11.0)
[2024-07-07 08:36] LABS: ALB/GLOB Ratio 0.6 RATIO (0.9-2.4); AST(SGOT) 10 U/L (15-37); Alanine Aminotransfer ALT/SGPT 15 U/L (13-56); Alkaline Phosphatase 86 U/L (45-117); Anion Gap 5 (5-15); BUN 18 mg/dL (7-18); BUN/Creat Ratio 52.6 RATIO (10-20); Chloride 101 mmol/L (98-107); Creatinine, Serum 0.34 mg/dL (0.55-1.02); EST Glomerular Filtration Rate 215 mL/min (>60); Est Glom Filt Rate - Afr Amer 260 mL/min (>60); Globulin 4.8 g/dL (2.2-4.2); Glucose 102 mg/dL (74-106); Protein, Total 7.8 g/dL (6.4-8.2); Sodium Level 138 mmol/L (136-145)
== END ==
LOC: OLS.SW 05:00
PROVIDERS: PCP Family Medicine; Visit Provider Internal Medicine
DX: N39.0 Urinary tract infection, site not specified (principal); E03.9 Hypothyroidism, unspecified; N31.9 Neuromuscular dysfunction of bladder, unspecified
CPT/HCPCS: 36415; 80053; 85025

== ENCOUNTER → 2024-07-25 05:00 | Outpatient (REF) | payer MEDICARE, MEDICAID, SELFPAY ==
[2024-07-25 08:33] LABS: Thyroid Stim Hormone (TSH) 0.989 uIU/mL (0.358-3.740)
== END ==
LOC: OLS.SW 05:00
PROVIDERS: PCP Family Medicine; Visit Provider Internal Medicine
DX: E03.9 Hypothyroidism, unspecified (principal); E55.9 Vitamin D deficiency, unspecified
CPT/HCPCS: 36415; 84443

== ENCOUNTER → 2024-09-06 | Outpatient (REF) | payer MEDICARE, MEDICAID, SELFPAY ==
[2024-09-06 08:38] LABS: Hematocrit 31.5 % (37-47); Hemoglobin 9.7 g/dL (12.0-15.0); Mean Corp Hgb Conc 30.8 g/dL (32-36); Mean Corpuscular Volume 84.5 fL (81-99); Mean Platelet Vol. 9.6 fl (6.2-12.0); Platelet Count 295 K/mm3 (150-450); RBC Distribution Width CV 16.5 % (11.6-14.6); RBC Distribution Width SD 51.1 fl (35.1-43.9); Red Blood Count 3.73 M/mm3 (4.2-5.4); White Blood Count 6.5 K/mm3 (4.4-11.0)
[2024-09-06 09:28] LABS: Vitamin D,25 Hydroxy 31.2 ng/mL (30-100)
[2024-09-06 09:31] LABS: AST(SGOT) 20 U/L (<=31); Alanine Aminotransfer ALT/SGPT 15 U/L (<=34); Albumin, Serum 3.4 g/dL (3.5-5.0); Alkaline Phosphatase 59 U/L (35-104); Anion Gap 11 (5-15); BUN 9 mg/dL (4-19); BUN/Creat Ratio 35.3 RATIO (10-20); Calcium,Total 6.8 mg/dL (7.6-11.0); Carbon Dioxide 27.9 mmol/L (21.0-32.0); Chloride 103 mmol/L (98-108); Creatinine, Serum 0.25 mg/dL (0.70-1.20); EST Glomerular Filtration Rate 135 (>60); Globulin 3.4 g/dL (2.2-4.2); Glucose 110 mg/dL (70-99); Potassium 3.9 mmol/L (3.3-5.1); Protein, Total 6.9 g/dL (5.9-8.4); Sodium Level 142 mmol/L (133-145); Total Bilirubin < 0.15 mg/dL (0.00-1.30)
== END ==
LOC: OLS.SW 05:00
PROVIDERS: PCP Family Medicine; Visit Provider Family Medicine
DX: D64.9 Anemia, unspecified (principal); E03.9 Hypothyroidism, unspecified; J96.21 Acute and chronic respiratory failure with hypoxia; E55.9 Vitamin D deficiency, unspecified; G62.9 Polyneuropathy, unspecified
CPT/HCPCS: 36415; 80053; 82306; 84439; 84443; 85027

== ENCOUNTER → 2024-10-06 | Outpatient (REF) | payer MEDICARE, MEDICAID, SELFPAY ==
[2024-10-06 08:32] LABS: Absolute Lymphocyte Count 2.68 X10^3/uL (0.83-4.51); Absolute Neutrophil Count 5.5 X10^3/uL (2.0-7.7); Basophil# 0.04 X10^3/uL; Basophil% 0.4 % (0-1); Eosinophil# 0.32 X10^3/uL; Eosinophils% 3.5 % (0-5); Lymphocyte # 2.68 X10^3/ul (0.83-4.51); Lymphocyte % 29.3 % (19-41); Mean Corp Hgb Conc 30.3 g/dL (32-36); Mean Corpuscular Hgb 25.3 pg (27.0-32.0); Mean Corpuscular Volume 83.5 fL (81-99); Mean Platelet Vol. 9.6 fl (6.2-12.0); Monocyte# 0.61 X10^3/uL; Monocyte% 6.7 % (0-10); NRBC Flagged by Analyzer 0 % (0-5); Neutrophil # 5.47 X10^3/uL (2.7-7.7); Neutrophil % 59.7 % (47-70); Platelet Count 357 K/mm3 (150-450); RBC Distribution Width CV 15.4 % (11.6-14.6); RBC Distribution Width SD 47.2 fl (35.1-43.9); Red Blood Count 3.95 M/mm3 (4.2-5.4); White Blood Count 9.2 K/mm3 (4.4-11.0)
[2024-10-06 09:04] LABS: AST(SGOT) 15 U/L (<=31); Alanine Aminotransfer ALT/SGPT 10 U/L (<=34); Albumin, Serum 3.6 g/dL (3.5-5.0); Alkaline Phosphatase 77 U/L (35-104); Anion Gap 14 (5-15); BUN 7 mg/dL (4-19); BUN/Creat Ratio 24.7 RATIO (10-20); Calcium,Total 8.3 mg/dL (7.6-11.0); Carbon Dioxide 26.1 mmol/L (21.0-32.0); Chloride 98 mmol/L (98-108); Creatinine, Serum 0.28 mg/dL (0.70-1.20); EST Glomerular Filtration Rate 131 (>60); Globulin 3.5 g/dL (2.2-4.2); Glucose 127 mg/dL (70-99); Potassium 3.7 mmol/L (3.3-5.1); Protein, Total 7.1 g/dL (5.9-8.4); Sodium Level 138 mmol/L (133-145); Total Bilirubin 0.23 mg/dL (0.00-1.30)
== END ==
LOC: OLS.SW 06:40
PROVIDERS: PCP Family Medicine; Visit Provider Internal Medicine
DX: D64.9 Anemia, unspecified (principal); J96.21 Acute and chronic respiratory failure with hypoxia
CPT/HCPCS: 36415; 80053; 85025

== ENCOUNTER → 2024-12-04 | Outpatient (REF) | payer MEDICARE, MEDICAID, SELFPAY ==
[2024-12-04 10:28] LABS: AST(SGOT) 17 U/L (<=31); Alanine Aminotransfer ALT/SGPT 11 U/L (<=34); Albumin, Serum 3.7 g/dL (3.5-5.0); Alkaline Phosphatase 86 U/L (35-104); Anion Gap 16 (5-15); BUN 10 mg/dL (4-19); BUN/Creat Ratio 39.2 RATIO (10-20); Carbon Dioxide 23.9 mmol/L (21.0-32.0); Chloride 99 mmol/L (98-108); Creatinine, Serum 0.27 mg/dL (0.70-1.20); EST Glomerular Filtration Rate 133 (>60); Globulin 3.7 g/dL (2.2-4.2); Glucose 120 mg/dL (70-99); Potassium 3.6 mmol/L (3.3-5.1); Protein, Total 7.4 g/dL (5.9-8.4); Sodium Level 139 mmol/L (133-145); T4 Total, Thyroxin 9.6 ug/dL (4.8-13.9); Total Bilirubin 0.18 mg/dL (0.00-1.30)
== END ==
LOC: OLS.SW 05:00
PROVIDERS: PCP Family Medicine; Visit Provider Internal Medicine
DX: D64.9 Anemia, unspecified (principal); E03.9 Hypothyroidism, unspecified
CPT/HCPCS: 36415; 80053; 84436; 84443

== ENCOUNTER → 2024-12-05 | Outpatient (REF) | payer MEDICARE, MEDICAID, SELFPAY ==
--- OUTSIDE RECORDS SUMMARY | 2024-12-05 04:55 | XMS RPT_ITS | CCD ---
Author Organization [facility] Care Team Providers Care Vending Mechanic Name Role Phone PHYSICIAN, PATIENT UNSURE Primary Care Physician Unavailable Dr. Lavon Vicente Primary Care Provider Dr. Romero River Emergency Provider Simin, Dr. Shaw Admit Provider Simin, Dr. Shaw Attending Provider [facility], Dr. Shaw Other Provider Dr. Lavon Vicente Primary Care Provider [facility] Valeria [place] [place], Dr. Shaw Attending Provider [facility], Dr. Shaw Other Provider Dr. Estevan Aguila Emergency Provider Dr. Shari Pastor Admit Provider Dr. Shari Pastor Attending Provider Dr. Shari Pastor Other Provider Dr. Renzo Alva Attending Provider Unavailable Dr. Renzo Alva Other Provider Unavailable Dr. Paul Walsh Other Provider Dr. Lavon Vicente Primary Care Provider Dr. Romero [place] Emergency Provider [place], Dr. [facility] Admit Provider Dr. Valeria Duval Attending Provider Dr. Valeria Duval Other Provider Patricia uGo Nancie Unavailable Lavon Vicente MD Unavailable Lavon Vicente MD Primary Care Provider Dr. Lavon Vicente Primary Care Provider Dr. Lavon Vicente Primary Care Provider Dr. Estevan Aguila Emergency Provider Dr. Shari aPstor Admit Provider Dr. Shari Pastor Attending Provider Dr. Shari Pastor Other Provider Dr. Renzo Alva Attending Provider Unavailable Dr. Renzo Alva Other Provider Unavailable Dr. Paul Walsh Other Provider Dr. Scott Downey Emergency Provider Dr. Romero Howe Admit Provider Dr. Romero Howe Attending Provider Dr. Romero Howe Other Provider LAVON VICENTE Referring Unavailable LAVON VICENTE Primary Care Unavailable ROSA MARIA MARTINEZ Attending Unavailable Dr. Lavon Vicente Primary Care Provider Dr. Shari Pastor Attending Provider Dr. Shari Pastor Other Provider Dr. Paul Walsh Other Provider Dr. Lavon Vicente Primary Care Provider Dr. Estevan Aguila Emergency Provider Dr. Renzo De Paz Admit Provider Unavailabl e De Paz, Dr. Muller Referring Provider Unavail able De Paz, Dr. Muller Other Provider Unavailabl e Dr. Salas Ely Other Provider Dr. Zana Fish Other Provider Dr. Francisco Pitts Attending Provider Dr. Francisco Pitts Other Provider Dr. Benjamin Morse Other Provider Dr. Janett Stallings Other Provider Dr. Barrie Berkowitz Other Provider Dr. Tia Marks Other Provider Dr. Isela Chris Other Provider Unavailable Dr. Sulaiman Hardin Other Provider [phone] Mesfin Van Other Provider Dr. Patricio Myers Other Provider Dr. Malik Fair Other Provider [phone] Margarita Cortez Other Provider Dr. Alana Cavazos Other Provider MD Dulce Livingston Other Provider Tawanda, MS Yaya Other Provider MD Beba Lewis Other Provider MD NAIDA MCCARTHY Other Provider MD Anabell Patterson Other Provider Dr. Jonna Mansfield Other Provider MD Navjot Meadows Other Provider MD Jacklyn Queen Other Provider Dr. Paul Walsh Other Provider Dr. Shari Pastor Other Provider MD Tyrell Rodriguez Other Provider Unavailable MD Harper Quach Other Provider Unavailable Dr. Wendy Correa Other Provider [phone] Javier Alfredo Other Provider [phone] Shelly Fernandez Other Provider Dr. John Minor Other Provider Dr. Roman Saunders Other Provider Dr. Keven Joseph Other Provider [phone] Jes Dumont Other Provider [phone] Fernando Salcedo Other Provider Dr. Urbano Oquendo Other Provider [phone] Duane Reyna Other Provider Dr. Jono Sharp Other Provider Dr. Heiid Carmona Other Provider Unavailable MD Klaudia Mercado Other Provider Unavailable Dr. Shari Pastor Attending Provider Dr. Raad Hope Other Provider Dr. Raad Hope Attending Provider Dr. Flaco Choi Other Provider ENRRIQUE Conte-Gopal West Attending Provider JULES HAMILTON, DR DOLL R Primary Care Physician Dr. Lavon Vicente Primary Care Provider Dr. Estevan Aguila Emergency Provider [phone] Dr. Renzo De Paz Admit Provider Unavailabl e Dr. Renzo De Paz Referring Provider Unavail able Dr. Renzo De Paz Other Provider Unavailabl e Dr. Salas Ely Other Provider Dr. Zana Fish Other Provider Dr. Francisco Pitts Attending Provider Dr. Francisco Pitts Other Provider Dr. Benjamin Morse Other Provider Dr. Janett Stallings Other Provider Dr. Barrie Berkowitz Other Provider Dr. Tia Marks Other Provider Dr. Isela Chris Other Provider Unavailable Dr. Sulaiman Hardin Other Provider Dr. Mesfin Van Other Provider Dr. Patricio Myers Other Provider Dr. Malik Fair Other Provider Dr. Margarita Cortez Other Provider Dr. Alana Cavazos Other Provider MD Dulce Livingston Other Provider Tawanda, MS Yaya Other Provider MD Beba Lewis Other Provider MD NAIDA MCCARTHY Other Provider MD Anabell Patterson Other Provider Dr. Jonna Mansfield Other Provider MD Navjot Meadows Other Provider MD Jacklyn Queen Other Provider Dr. Paul Walsh Other Provider Dr. Shari Pastor Other Provider MD Tyrell Rodriguez Other Provider Unavailable MD Harper Quach Other Provider Unavailable Dr. Wendy Correa Other Provider Dr. Javier Alfredo Other Provider Dr. Shelly Fernandez Other Provider Dr. John Minor Other Provider Dr. Roman Saunders Other Provider Dr. Keven Joseph Other Provider Dr. Jes Dumont Other Provider Dr. Fernando Salcedo Other Provider Dr. Urbano Oquendo Other Provider Dr. Duane Reyna Other Provider Dr. Jono Sharp Other Provider Dr. Heidi Carmona Other Provider Unavailable MD Klaudia Mercado Other Provider Unavailable Dr. Shari Pastor Attending Provider Jayy, Dr. Shankar Other Provider Jayy, Dr. Shankar Attending Provider Dr. Flaco Choi Other Provider DOV Conte Attending Provider CAMILO GARCIA, ISREAL Herron Attending Dylan VICENTE MD, DR LAVON Kapadia Primary Care Unavailabl e CAMILO GARCIA, ISREAL Herron Attending Dylan VICENTE MD, DR LAVON Kapadia Primary Care Unavailabl e CAMILO GARCIA, ISREAL Herron Attending Dylan VICENTE MD, DR LAVON Kapadia Primary Care Unavailabl e CAMILO GARCIA, ISREAL Herron Attending Unav ailable PHYSICIAN, PATIENT UNSURE Primary Care Danie GARCIA, ISREAL Herron Attending Unav ailable PHYSICIAN, PATIENT UNSURE Primary Care Danie VICENTE MD, DR LAVON Kapadia Primary Care Unavailabl e CAMILO GARCIA, ISREAL Herron Attending Dylan VICENTE MD, DR LAVON Kapadia Primary Care Unavailabl e CAMILO GARCIA, ISREAL Herron Attending Dylan RENEE MD, DR CRESPO Attending Unavailhayes VICENTE MD, DR LAVON Kapadia Primary Care Unavailsrinivas CANTU MD, [employer] Consulting Sheryl RENEE MD, DR CRESPO Consulting Unavailhayes Vicente MD, Dr. Doll Primary Care Provider Navdeep HAMILTON, Dr. Sheikh Attending Provider UnavailDr. Kenia Ca MD Attending Provider Manish HAMILTON, Dr. Aquino Referring Provider Lavon Charles Attending Provider Unavailable Jules HAMILTON, Dr. Doll Primary Care Provider Navdeep HAMILTON, Dr. Sheikh Attending Provider UnavailLavon Banks Primary Care Unavailable Lavon Vicente Attending Unavailable Vicente, Lavon Primary Care Unavailable Vicente, Lavon Attending Unavailable Vicente, Lavon Attending Unavailable Vicente, Lavon Primary Care Unavailable Vicente, Lavon Primary Care Unavailable Basali, Ayman Attending Unavailable Basali, Ayman Referring Unavailable Vicente, Lavon Primary Care Unavailable Basali, Ayman Attending Unavailable Basali, Ayman Referring Unavailable Vicente, Lavon Primary Care Unavailable Vicente, Lavon Attending Unavailable Gudla OLS, Kori Attending Unavailable Vicente, Lavon Primary Care Unavailable Vicente, Lavon Primary Care Unavailable Vicente, Lavon Attending Unavailable Vicente, Lavon Attending Unavailable Vicente, Lavon Primary Care Unavailable Gudla OLS, Kori Attending Unavailable Vicente, Lavon Primary Care Unavailable Vicente, Lavon Primary Care Unavailable Gudla OLS, Kori Attending Unavailable Vicente, Lavon Primary Care Unavailable Gudla OLS, Kori Attending Unavailable Vicente, Lavon Primary Care Unavailable Gudla OLS, Kori Attending Unavailable Gudla OLS, Kori Attending Unavailable Vicente, Lavon Primary Care Unavailable Vicente, Lavon Primary Care Unavailable Gudla OLS, Kori Attending Unavailable Vicetne, Lavon Primary Care Unavailable Vicente, Lavon Attending Unavailable Vicente, Lavon Primary Care Unavailable Gudla OLS, Kori Attending Unavailable Vicente, Lavon Attending Unavailable Vicente, Lavon Primary Care Unavailable Vicente, Lavon Attending Unavailable Vicente, Lavon Primary Care Unavailable Allergies Allergy Classification Reported Allergen(s) Allergy Type Date of Onset Reaction(s) Facility (9 sources) Coconut extract; Translations: [Cocos nucifera (organism)] Drug Allergy RASH, CLOSES OFF AIRWAY [facility] (12 sources) Morphine; Translations: [morphine] Drug Allergy 05-15-20 15 [facility] (7 sources) Amoxicillin; Translations: [amoxicillin] Drug Allergy [facility] (7 sources) Penicillin; Translations: [penicillin] Drug Allergy [facility] (20 sources) apixaban; Translations: [APIXABAN] Drug Allergy 05-15-20 15 [facility] (20 sources) Coconut Oil Drug Allergy 09-13-19 22 cant breath [facility] (20 sources) Mometasone Drug Allergy 04-05-20 Unknown [facility] (20 sources) Nitrofurantoin; Translations: [NITROFURANTOIN] Drug Allergy 04-05-20 Unknown [facility] (20 sources) Penicillins; Translations: [Penicillins] Propensity to adverse reactions 09-13-19 NEEDS FOLLOW-UP [facility] (20 sources) rivaroxaban Drug Allergy 09-13-19 Rash [facility] (20 sources) Sulfonamides (Antibiotic); Translations: [SULFA (SULFONAMIDE ANTIBIOTICS)] Allergy to substance 04-05-20 Unknown [facility] (1 source) Mometasone; Translations: [MOMETASONE] Drug Allergy 04-05-20 [facility] (1 source) apixaban Drug Allergy 07-03-19 [facility] (1 source) Coconut Oil Drug Allergy 07-03-19 [facility] (1 source) Mometasone Drug Allergy 07-03-19 [facility] (1 source) Nitrofurantoin Drug Allergy 07-03-19 [facility] (1 source) rivaroxaban Drug Allergy 07-03-19 [facility] Medications Current Medications Medication Drug Class(es) Dates Sig (Normalized) Sig (Original) acetaminophen 120 mg rectal suppository (20 sources) Start: 08-04-2023 take 1 dose rectal route four times daily acetaminophen 120 mg rectal suppository Dose : 120 mg = 1 supp, Rectal, q4hr, PRN for pain, 650mg QID, 0 Refill(s) Start Date: 08/04/23 Status: Ordered Start: 04-22-2021 End: 06-05-2022 Acetaminophen 650 mg Supposi tory Discontinued 650 mg RC Q4H as needed for Pain April 22, 2021 1:00am June 05, 2022 11:25am Start: 04-03-2019 Tylenol 325 mg oral capsule Dose : 325 mg = 1 cap(s), Oral, q4h, PRN as needed for fever, # 20 cap(s), 0 Refill(s) Start Date: 04/03/19 Status: Ordered Start: 03-01-2018 take 2 tablets by sc ut every four hours as needed for pain Acetaminophen 325 MG tablet Active 650 mg PO EVERY 4 HOURS NEEDED as needed for Pain or fever March 01, 2018 12:00am Start: 03-01-2018 Start: 08-10-2014 End: 10-01-2014 take 2 tablets by mouth every six hours as needed for pain Acetaminophen (Tylenol) 325 MG tablet Discontinued 650 mg PO EVERY 6 HOURS NEEDED as needed for HEADACHE/ACHES/PAIN August 10, 2014 1:00am October 01, 2014 3:29pm Start: 08-10-2014 End: 10-01-2014 Comment on above: Take 650 mg by mouth every 6 hours as needed. Every 4 hours as needed Acidophilus Extra Strength (7 sources) Start: 07-28-2021 Acidophilus Extra Strength Oral, qDay, 0 Refill(s) Start Date: 07/28/21 Status: Ordered Acidophilus-Pectin, Converse 25 million cell -100 mg Tablet (2 sources) Start: 07-08-2023 take 1 tablet by mouth twice daily Acidophilus-Pectin, Converse 25 million cell -100 mg Tablet Active 2 {tbl} PO TWICE A DAY July 08, 2023 1:00am Artificial Tears ophthalmic solution (9 sources) Start: 04-03-2019 take 1 dose into the eye(s) twice daily as needed Artificial Tears ophthalmic solution Dose = 1 drop(s), Eyes, both, BID, PRN as needed for dry eyes, # 30 mL, 0 Refill(s) Start Date: 04/03/19 Status: Ordered baclofen 20 mg oral tablet (20 sources) gamma-Aminobutyri c Acid-ergic Agonist Start: 04-03-2019 baclofen 20 mg oral tablet Dose : 40 mg = 2 tab(s), Oral, QID, 0 Refill(s) Start Date: 04/03/19 Status: Ordered Start: 08-16-2016 [facility] 4 tablets by [facility] every six hours Baclofen 10 MG tablet Active 40 mg PO EVERY 6 HOURS August 16, 2016 10:43pm Start: 05-27-2016 End: 08-16-2016 take 2 tablets by mouth every six hours as needed for muscle spasms Baclofen 10 MG tablet Discontinued 20 mg PO EVERY 6 HOURS NEEDED as needed for BLADDER SPASMS 0 May 27, 2016 1:00am August 16, 2016 10:44pm Start: 05-27-2016 End: 08-16-2016 Start: 05-27-2016 End: 08-16-2016 take 20 mg by mouth every six hours as needed Baclofen Discontinued 20 MG PO EVERY 6 HOURS NEEDED 0 May 27, 2016 12:00am August 16, 2016 9:44pm Start: 05-26-2016 End: 05-27-2016 Baclofen 20 MG tablet Discon tinued 1 - 2 {tbl} PO EVERY 6 HOURS NEEDED as needed for Bladder Spasms May 26, 2016 1:00am May 27, 2016 5:18pm Start: 05-28-2015 End: 08-22-2015 take 1 tablet by mouth every six hours as needed for muscle spasms Baclofen 20 MG tablet Discontinued 20 mg PO EVERY 6 HOURS as needed for Spasms May 28, 2015 1:00am August 22, 2015 3:02pm Start: 05-04-2014 End: 10-18-2014 take 1 tablet by mouth four times daily Baclofen 20 MG tablet Discontinued 20 mg PO 4 TIMES DAILY August 10, 2014 9:55am October 18, 2014 4:17pm Start: 05-04-2014 End: 10-18-2014 Start: 03-22-2013 End: 04-27-2014 take 2 tablets by mouth three times daily Baclofen 20 MG tablet Discontinued 40 mg PO THREE TIMES A DAY March 22, 2013 12:00am April 27, 2014 6:21pm Start: 03-22-2013 End: 04-27-2014 Start: 03-22-2013 End: 04-27-2014 take 40 mg by mouth three times daily Baclofen Discontinued 40 MG PO THREE TIMES A DAY March 21, 2013 11:00pm April 27, 2014 5:21pm take 2 tablets by [facility] every six hours as needed baclofen (LIORESAL) 20 mg tablet Take 40 mg by mouth every 6 hours as needed. 0 Active Comment on above: Take 40 mg by mouth every 6 hours as needed. benzonatate 100 mg oral capsule (10 sources) Non-narcotic Antitussive Start: 024 take 1 capsule by mouth every six hours as needed Benzonatate 100 mg capsule Active 100 mg PO EVERY 6 HOURS NEEDED July 02, 2023 1:00am bisacodyl 5 mg oral delayed release tablet (2 sources) Start: 019 bisacodyl 5 mg oral delayed release tablet Dose : 10 mg = 2 tab(s), Oral, qDay, PRN constipation, 0 Refill(s) Start Date: 04/03/19 Status: Ordered 168 hr buprenorphine 0.02 mg/hr transdermal system (20 sources) Partial Opioid Agonist Start: 024 apply 1 dose transdermal route every week buprenorphine 20 mcg/hr transdermal film, extended release Dose = 1 patch(es), Transdermal, qWeek, # 4 patch(es), 0 Refill(s), 113.6 Start Date: 08/04/23 Status: Ordered Start: 09-12-2022 apply 15 ug transder mal route every week Buprenorphine (Butrans) 15 mcg/hour patch weekly Active 20 ug TD Q7D September 12, 2022 12:00am Start: 09-12-2022 Start: 06-04-2022 apply 10 ug transder mal route every week Buprenorphine (Butrans) 10 mcg/hour Patch Weekly Active 1 PATCH TD Q7D June 04, 2022 12:00am Comment on above: Apply 1 Patch as dir ected one time a week. busPIRone hydrochloride 10 mg oral tablet (20 sources) Start: 07-02-2023 take 1 tablet by mouth twice daily Buspirone 10 mg tablet Active 10 mg PO TWICE A DAY July 02, 2023 1:00am Start: 06-23-2021 busPIRone 5 mg oral tablet 0 Refill(s) Start Date: 06/23/21 Status: Ordered Start: 04-22-2021 End: 07-02-2023 take 10 mg by mouth three times daily Buspirone 7.5 mg Tablet Discontinued 10 mg PO THREE TIMES A DAY April 22, 2021 1:00am July 03, 2023 12:18am Start: 04-22-2021 End: 07-02-2023 Start: 04-22-2021 take 7.5 mg by mouth twice daily Buspirone Active 7.5 MG PO TWICE A DAY April 22, 2021 12:00am Start: 02-26-2021 BUSPIRONE HYDR OCHLORIDE 7.5 MG TABS BUSPIRONE HYDROCHLORIDE 7.5 MG TABS, 0 Refill(s), 103 Start Date: 02/26/21 Status: Ordered take 1 tablet by yuliet th three times daily busPIRone (BUSPAR) 7.5 mg tablet Take 7.5 mg by mouth three times daily. 0 Active Comment on above: Take 7.5 mg by mouth three times daily. calcium carbonate 500 mg oral tablet (2 sources) Start: 04-03-20 Maalox Antacid Barrier 500 mg oral tablet, chewable Dose : 500 mg = 1 tab(s), Chewed, TID, PRN for indigestion, # 30 tab(s), 0 Refill(s) Start Date: 04/03/19 Status: Ordered cefdinir 300 mg oral capsule (3 sources) Cephalosporin Antibacterial Start: 06-05-20 take 300 mg by mouth twice daily Cefdinir Active 300 MG PO TWICE A DAY 03 18June 05, 2022 12:00am cetirizine hydrochloride 10 mg oral capsule (20 sources) Histamine-1 Receptor Antagonist Start: 07-02-19 take 1 capsule by mouth once daily as needed Cetirizine (All Day Allergy (Cetirizine)) 10 mg capsule Active 10 mg PO DAILY as needed for allergies July 02, 2023 1:00am Start: 09-12-2022 take 1 tablet by yuliet once daily in the evening Cetirizine 10 mg Tablet Active 10 mg PO EVERY EVENING September 12, 2022 12:00am Start: 04-30-2021 cetirizine 0 R efill(s) Start Date: 04/30/21 Status: Ordered take 1 capsule by mo [facility] once daily Cetirizine 10 mg cap Take 10 mg by mouth once daily. 0 Active Comment on above: Take 10 mg by mouth once daily. cholecalciferol 0.05 mg oral capsule (20 sources) Vitamin D Start: 08-08-19 take 1 capsule by mouth at lunch Cholecalciferol (Vitamin D3) 2,000 UNIT capsule Active 2000 U PO WITH LUNCH August 08, 2019 1:00am Start: 08-08-2019 take 2 capsules by m [facility] once daily Cholecalciferol, Vitamin D3, 1,000 unit cap Take 2,000 Units by mouth once daily. 0 Active Comment on above: Take 2,000 Units by mouth once daily. diphenhydrAMINE hydrochloride 25 mg oral tablet (20 sources) Histamine-1 Receptor Antagonist Start: 07-02-19 take 2 tablets by mouth every eight hours as needed Diphenhydramine Hcl (Allergy (Diphenhydramine)) 25 mg tablet Active 50 mg PO Q8H as needed for itching July 02, 2023 1:00am Start: 06-03-2022 End: 06-05-2022 take 1 tablet by mouth every six hours as needed Diphenhydramine Hcl (Benadryl Allergy) 25 mg Tablet Discontinued 25 mg PO EVERY 6 HOURS as needed for Itching June 03, 2022 1:00am June 05, 2022 11:14am Start: 06-03-2022 End: 06-05-2022 Start: 07-28-2021 End: 06-05-2022 take 1 capsule by mouth three times daily as needed Diphenhydramine Hcl (Benadryl) 25 mg Capsule Discontinued 25 mg PO THREE TIMES A DAY as needed for ITCHING June 03, 2022 1:00am June 05, 2022 11:14am docusate sodium 100 mg oral capsule (20 sources) Start: 02-26-2021 docusate sodiu m 100 mg oral capsule Dose : 100 mg = 1 cap(s), Oral, BID, PRN as needed for constipation, # 20 cap(s), 0 Refill(s) Start Date: 02/26/21 Status: Ordered Start: 10-11-2020 take 2 capsules by m outh twice daily Docusate Sodium (Colace) 100 mg Capsule Active 200 mg PO TWICE A DAY October 11, 2020 12:00am Start: 10-11-2020 Start: 08-10-2014 End: 10-01-2014 take 1 capsule by mouth twice daily Docusate Sodium (Dok) 100 MG capsule Discontinued 100 mg PO TWICE A DAY August 10, 2014 1:00am October 01, 2014 3:29pm Start: 08-10-2014 End: 10-01-2014 Comment on above: Take 200 mg by mouth daily at bedtime. doxycycline monohydrate 100 mg oral capsule (3 sources) Tetracycline-class Drug Start: 2 take 100 mg by mouth twice daily Doxycycline Monohydrate Active 100 MG PO TWICE A DAY 6 3 June 05, 2022 12:00am DULoxetine 60 mg delayed release oral capsule (20 sources) Serotonin and Norepinephrine Reuptake Inhibitor Start: 6 Duloxetine 60 MG capsule,delayed release(DR/EC) Active 90 mg PO AT BEDTIME August 21, 2015 1:00am Start: 08-21-2015 DULoxetine 60 mg oral delayed release capsule Dose : 120 mg = 2 cap(s), Oral, qDay, 0 Refill(s) Start Date: 04/03/19 Status: Ordered Start: 08-21-2015 take 90 mg by mouth at bedtime Duloxetine Active 90 MG PO AT BEDTIME August 21, 2015 12:00am Start: 08-21-2015 take 120 mg by mouth at bedtim e Duloxetine Active 120 MG PO AT BEDTIME August 21, 2015 12:00am Start: 03-22-2013 End: 08-10-2014 take 2 capsules by mouth at bedtime Duloxetine 60 MG capsule Discontinued 120 mg PO AT BEDTIME March 22, 2013 12:00am August 10, 2014 9:56am Start: 03-22-2013 End: 08-10-2014 Start: 03-22-2013 End: 08-10-2014 take 120 mg by mouth at bedtime Duloxetine Discontinue d 120 MG PO AT BEDTIME March 21, 2013 11:00pm August 10, 2014 8:56am Comment on above: Take 60 mg by mouth twice daily. 90 mg by mouth at bedtime ferrous gluconate 240 mg oral tablet (18 sources) Start: 1 ferrous gluconate 240 mg (27 mg elemental iron) oral tablet Dose : 240 mg = 1 tab(s), Oral, qDay, 0 Refill(s) Start Date: 07/28/21 Status: Ordered Fleet Enema 7 g-19 g rectal enema (9 sources) Start: 9 take 1 dose rectal route once as needed for constipation Fleet Enema 7 g-19 g rectal enema Dose = 1 EA, Rectal, Once, PRN for constipation, # 133 mL, 0 Refill(s) Start Date: 04/03/19 Status: Ordered Flonase 50 mcg/inh nasal spray (2 sources) Start: 1 take 1 dose nasal route twice daily Flonase 50 mcg/inh nasal spray Dose = 1 spray(s), Nostril, each, BID, 0 Refill(s) Start Date: 02/26/21 Status: Ordered furosemide 20 mg oral tablet (20 sources) Loop Diuretic Start: Start: 04-03-2019 Furosemide 20 mg Tablet Active 20 mg PO .evening April 21, 2021 1:00am Start: 05-26-2018 take 1 tablet by yuliet th at breakfast Furosemide 40 MG tablet Active 40 mg PO WITH BREAKFAST May 26, 2018 1:00am Start: 10-01-2014 End: 10-18-2014 take 1 tablet by mouth once daily Furosemide 40 MG tablet Discontinued 40 mg PO DAILY October 01, 2014 12:00am October 18, 2014 4:17pm Start: 03-22-2013 End: 08-10-2014 take 2 tablets by mouth once daily Furosemide 20 MG tablet Discontinued 40 mg PO DAILY March 22, 2013 12:00am August 10, 2014 9:56am Start: 03-22-2013 End: 08-10-2014 Comment on above: Take 40 mg by mouth once daily. Also takes 20 MG by mouth at lunch gabapentin 600 mg oral tablet (20 sources) Anti-epileptic Agent Start: 07-03-2024 take 2 tablets by mouth at bedtime Gabapentin (Neurontin) 600 mg tablet Active 1200 mg PO AT BEDTIME July 03, 2024 1:00am Start: 04-22-2021 take 2 tablets by mo ut twice daily Gabapentin 800 mg Tablet Active 1600 mg PO TWICE A DAY April 22, 2021 1:00am Start: 04-22-2021 Start: 04-03-2019 gabapentin 800 mg oral tablet Dose : 1,600 mg = 2 tab(s), Oral, TID, 0 Refill(s) Start Date: 04/03/19 Status: Ordered Start: 05-27-2016 End: 08-16-2016 take 2 capsules by mouth three times daily at mealtime Gabapentin 400 MG capsule Discontinued 800 mg PO 3 TIMES DAILY WITH MEALS May 27, 2016 1:00am August 16, 2016 10:44pm Start: 05-27-2016 End: 08-16-2016 Start: 05-05-2016 End: 05-27-2016 take 2 tablets by mouth three times daily at mealtime Gabapentin 800 MG tablet Discontinued 1600 mg PO 3 TIMES DAILY WITH MEALS May 05, 2016 1:00am May 27, 2016 5:18pm Start: 05-05-2016 End: 05-27-2016 Start: 05-28-2015 End: 08-22-2015 take 2 tablets by mouth every eight hours Gabapentin 800 MG tablet Discontinued 1600 mg PO Q8H May 28, 2015 1:00am August 22, 2015 3:00pm Start: 05-28-2015 End: 08-22-2015 Start: 05-28-2015 End: 08-22-2015 take 1600 mg by mouth every eight hours Gabapentin Discontinued 1600 MG PO Q8H May 28, 2015 12:00am August 22, 2015 2:00pm Start: 07-31-2014 End: 08-10-2014 Gabapentin 600 MG tablet Discontinued 1600 mg PO Q8H July 31, 2014 2:12pm August 10, 2014 9:45am Start: 07-31-2014 End: 08-10-2014 Start: 07-31-2014 End: 10-01-2014 take 2 tablets by mouth every eight hours Gabapentin 800 MG tablet Discontinued 1600 mg PO Q8H August 10, 2014 9:55am October 01, 2014 3:29pm Start: 07-31-2014 End: 10-01-2014 Start: 07-31-2014 End: 10-01-2014 take 1600 mg by mouth every eight hours Gabapentin Discontinued 1600 MG PO Q8H August 10, 2014 8:55am October 01, 2014 2:29pm Start: 04-27-2014 End: 05-03-2014 take 2 tablets by mouth three times daily at mealtime Gabapentin 600 MG tablet Discontinued 1200 mg PO 3 TIMES DAILY WITH MEALS April 27, 2014 1:00am May 03, 2014 4:02pm Start: 04-27-2014 End: 04-27-2014 take 1 tablet by mouth three times daily Gabapentin 800 MG tablet Discontinued 800 mg PO DIRECTED April 27, 2014 1:00am April 27, 2014 6:21pm take 1 1/2 three times a day Start: 04-27-2014 End: 05-03-2014 Start: 04-27-2014 End: 04-27-2014 Start: 04-27-2014 End: 05-03-2014 take 1200 mg by mouth three times daily at mealtime Gabapentin Discontinued 1200 MG PO 3 TIMES DAILY WITH MEALS April 27, 2014 12:00am May 03, 2014 3:02pm Start: 03-22-2013 End: 04-27-2014 take 4 capsules by mouth three times daily Gabapentin 400 MG capsule Discontinued 1600 mg PO THREE TIMES A DAY March 22, 2013 12:00am April 27, 2014 2:21pm Start: 03-22-2013 End: 04-27-2014 Start: 03-22-2013 End: 04-27-2014 take 1600 mg by mouth three times daily Gabapentin Discontinued 1600 MG PO THREE TIMES A DAY March 21, 2013 11:00pm April 27, 2014 1:21pm Comment on above: Take 800 mg by mouth . 2 tablets every 8 hours Inulin / Lactobacillus rhamnosus GG (2 sources) Start: 9 [facility] oral tablet, chewable Chewed, qDay, 0 Refill(s) Start Date: 04/03/19 Status: Ordered 24 hr isosorbide mononitrate 30 mg extended release oral tablet (20 sources) Nitrate Vasodilator Start: take 1 tablet by mouth at bedtime, then take 1 tablet by mouth every twenty-four hours Isosorbide Mononitrate 30 mg Tablet Extended Release 24 Hr Active 30 mg PO AT BEDTIME April 22, 2021 1:00am Comment on above: Take 30 mg by mouth daily at bedtime. lactobacillus acidophilus [id number] unt / pectin 100 mg oral tablet (10 sources) Start: 4 Start: 04-22-2021 take 1 capsule by [facility] once daily Acidophilus-Pectin, [place] (Acidophilus Probiotic) 100 million cell-10 mg Capsule Active 1 CAP PO DAILY April 22, 2021 8:50pm levothyroxine sodium 0.075 mg oral tablet (20 sources) l-Thyroxine Start: 04-03-2019 levothyroxine 75 mcg (0.075 mg) oral tablet Dose : 75 mcg = 1 tab(s), Oral, qDay, # 30 tab(s), 0 Refill(s) Start Date: 04/03/19 Status: Ordered Start: 05-28-2015 take 1 tablet by yuliet once daily Levothyroxine 75 MCG tablet Active 75 ug PO DAILY May 28, 2015 1:00am Start: 03-22-2013 End: 10-01-2014 Levothyroxine 50 MCG tablet Discontinued 75 ug PO DAILY August 10, 2014 9:55am October 01, 2014 3:29pm Start: 03-22-2013 End: 10-01-2014 Comment on above: Take 75 mcg by mouth once daily. linaclotide 0.145 mg oral capsule (20 sources) Guanylate Cyclase-C Agonist Start: 08-04-2023 Linzess 145 mcg oral capsule 0 Refill(s) Start Date: 08/04/23 Status: Ordered Start: 07-02-2023 take 1 capsule by mo [facility] at lunch Linaclotide (Linzess) 145 mcg capsule Active 145 ug PO WITH LUNCH July 02, 2023 1:00am Start: 07-02-2023 Start: 04-03-2019 Linzess 290 mc g oral capsule Dose : 290 mcg = 1 cap(s), Oral, qDay, # 30 cap(s), 0 Refill(s) Start Date: 04/03/19 Status: Ordered Start: 07-31-2014 End: 10-01-2014 take 1 capsule by mouth once daily Linaclotide (Linzess) 290 MCG capsule Discontinued 290 ug PO DAILY August 10, 2014 9:55am October 01, 2014 3:29pm Start: 03-22-2013 End: 05-03-2014 take 1 capsule by mouth once daily Linaclotide (Linzess) 290 MCG capsule Discontinued 290 ug PO DAILY March 22, 2013 12:00am May 03, 2014 4:03pm loperamide hydrochloride 2 mg oral tablet (20 sources) Opioid Agonist Start: 06-03-2022 take 4 tablets by mouth every twenty-four hours as needed for diarrhea Loperamide 2 mg Tablet Active 1 mg PO Q4H as needed for Diarrhea June 03, 2022 1:00am administer after each loose stool until symptoms controlled; do not exceed 8 mg per 24 hrs Start: 06-03-2022 Start: 02-26-2021 loperamide 2 m g oral tablet Dose : 2 mg = 1 tab(s), Oral, q4h, PRN as needed for loose stool, # 24 tab(s), 0 Refill(s) Start Date: 02/26/21 Status: Ordered Magnesium Hydroxide (13 sources) Start: 06-03-2022 take 1 mL by mouth o nce daily as needed for constipation Magnesium Hydroxide (Milk Of Magnesia) 400 mg/5 mL Suspension Active 30 mL PO DAILY as needed for Constipation June 03, 2022 1:00am Start: 06-03-2022 take 1 mL by mouth once daily Magnesium Hydroxide (Milk Of Magnesia) 400 mg/5 mL Suspension Active 30 ML PO DAILY June 03, 2022 1:00am Start: 06-03-2022 take 1 mL by mouth once daily Magnesium Hydroxide (Milk Of Magnesia) 400 mg/5 mL Suspension Active 30 ML PO DAILY June 03, 2022 12:00am take 30 mL by mouth once daily as needed magnesium hydroxide (MILK OF MAGNESIA) 400 mg/5 mL suspension Take 30 mL by mouth once daily as needed. 0 Active Comment on above: Take 30 mL by mouth once daily as needed. melatonin 5 mg oral tablet (20 sources) Start: 02-26-2021 take 1 tablet by mouth at bedtime Melatonin 5 mg Tablet Active 5 mg PO AT BEDTIME June 03, 2022 1:00am Comment on above: Take 5 mg by mouth d aily at bedtime. Menthol / Zinc Oxide (2 sources) Start: 07-08-2023 Menthol-Zinc Oxide (Calmoseptine) 0.44-20.6 % Ointment Active 1 NMA TOPICAL THREE TIMES A DAY 0 July 08, 2023 1:00am Please contact the information source for Protocol details. Milk of Magnesia 8% oral suspension (9 sources) Start: 04-03-2019 Milk of Magnesia 8% oral suspension 2.4 gram(s) Dose = 30 mL, Oral, qHS, PRN for constipation, 0 Refill(s) Start Date: 04/03/19 Status: Ordered 24 hr mirabegron 25 mg extended release oral tablet (17 sources) beta3-Adrenergic Agonist Start: 04-21-2023 End: 07-20-2023 take 1 tablet by mouth every twenty-four hours at lunch Mirabegron (Myrbetriq) 25 mg tablet extended release 24 hr Active 25 mg PO WITH LUNCH July 02, 2023 1:00am take 25 mg by mouth once daily m irabegron (MYRBETRIQ) 25 mg Tb24 Take 25 mg by mouth once daily. 0 Active Comment on above: Take 25 mg by mouth once daily. mirtazapine 30 mg oral tablet (20 sources) Start: 06-03-2022 Mirtazapine 30 mg Tablet Active 15 mg PO AT BEDTIME June 03, 2022 1:00am Start: 06-03-2022 Start: 12-21-2022 take 15 mg by mouth at bedtime Mirtazapine Active 15 MG PO AT BEDTIME June 03, 2022 12:00am Comment on above: Take 30 mg by mouth daily at bedtime. Nasacort Allergy 24HR 55 mcg/inh nasal spray (1 source) Start: 07-28-2021 take 1 dose nasal route once daily Nasacort Allergy 24HR 55 mcg/inh nasal spray Dose = 1 spray(s), Nostril, each, qDay, # 16.9 mL, 0 Refill(s) Start Date: 07/28/21 Status: Ordered nystatin 100 unt/mg topical powder (20 sources) Polyene Antifungal Start: 11-16-2022 Nystatin (Nyamyc) 100,000 unit/gram Powder Active 1 NMA TOPICAL TWICE A DAY November 16, 2022 12:00am Apply to pannus Please contact the information source for Protocol details. Start: 11-16-2022 Start: 11-16-2022 Nystatin (Nyam yc) 100,000 unit/gram Powder Active 1 APPLIC TOPICAL TWICE A DAY November 15, 2022 11:00pm Apply to pannus Start: 04-03-2019 nystatin 100,0 00 units/g topical cream Apply 1 magdalena, Topical, BID, # 15 gram(s), 0 Refill(s), Cream Start Date: 04/03/19 Status: Ordered Start: 08-21-2015 End: 10-13-2018 Nystatin 60 GM powder Discon tinued 1 APPLICATIO topical TWICE A DAY as needed for skin irritation August 21, 2015 1:00am October 13, 2018 7:46am Start: 08-21-2015 End: 10-13-2018 Start: 08-21-2015 End: 10-13-2018 Nystatin Discontinued 1 APPL ICATIO topical TWICE A DAY August 21, 2015 12:00am October 13, 2018 6:46am Start: 03-22-2013 End: 03-22-2013 [facility] Discontinued THREE TI MES A DAY March 22, 2013 6:34pm March 22, 2013 10:09pm Start: 03-22-2013 End: 03-22-2013 [facility] Discontinued THREE TI MES A DAY March 21, 2013 11:00pm March 22, 2013 9:09pm Start: 03-22-2013 End: 03-22-2013 [facility] Discontinued THREE TI MES A DAY March 22, 2013 12:00am March 22, 2013 10:09pm nystatin (MYCOST ATIN) powder Apply to affected area four times daily. 0 Active Comment on above: Apply to affected ar ea four times daily. nystatin 100,000 units/g topical cream (3 sources) Start: 9 nystatin 100,000 units/g topical cream Apply 1 amgdalena, Topical, BID, # 15 gram(s), 0 Refill(s), Cream Start Date: 04/03/19 Status: Ordered omeprazole 20 mg delayed release oral capsule (20 sources) Proton Pump Inhibitor Start: 8 take 1 capsule by mouth at lunch Omeprazole 20 MG capsule,delayed release(DR/EC) Active 20 mg PO WITH LUNCH March 01, 2018 12:00am Comment on above: Take 20 mg by mouth once daily. ondansetron 4 mg oral tablet (20 sources) Serotonin-3 Receptor Antagonist Start: 9 take 1 tablet by mouth every four hours as needed for nausea Ondansetron Hcl 4 mg Tablet Active 4 mg PO Q4H as needed for Nausea June 03, 2022 1:00am Start: 08-27-2018 End: 10-13-2018 take 1 tablet by mouth every four hours as needed for nausea Ondansetron 4 MG tablet Discontinued 4 mg PO EVERY 4 HOURS NEEDED as needed for Nausea August 27, 2018 12:00am October 13, 2018 7:46am Start: 02-01-2014 End: 04-24-2014 take 1 tablet by mouth every eight hours as needed for nausea Ondansetron Hcl 8 MG tablet Discontinued 8 mg PO EVERY 8 HOURS NEEDED as needed for nausea and emesis February 01, 2014 12:00am April 24, 2014 5:09pm oxybutynin chloride 5 mg oral tablet (20 sources) Cholinergic Muscarinic Antagonist Start: 03-01-2024 oxybutynin 5 mg oral tablet Dose : 10 mg = 2 tab(s), Oral, TID, 0 Refill(s) Start Date: 03/01/24 Status: Ordered Start: 06-23-2021 oxybutynin 15 mg/24 hr oral tablet, extended release 0 Refill(s) Start Date: 06/23/21 Status: Ordered Start: 04-22-2021 take 1 tablet by yuliet th once daily Oxybutynin Chloride 10 mg Tablet Extended Release 24hr Active 30 mg PO DAILY April 22, 2021 1:00am Start: 04-22-2021 take 30 mg by mouth once daily O XYBUTYNIN CHLORIDE ORAL Take 30 mg by mouth once daily. 0 Active Comment on above: Take 30 mg by mouth once daily. PARoxetine hydrochloride 20 mg oral tablet (20 sources) Serotonin Reuptake Inhibitor Start: 03-01-2024 PARoxetine 20 mg oral tablet Dose : 20 mg = 1 tab(s), Oral, qDay, 0 Refill(s) Start Date: 03/01/24 Status: Ordered Start: 07-02-2023 take 2 tablets by mo [facility] at bedtime Paroxetine Hcl 10 mg tablet Active 20 mg PO AT BEDTIME July 02, 2023 1:00am Start: 07-02-2023 Start: 07-02-2023 take 20 mg by mouth at bedtime Paroxetine Hcl Active 20 MG PO AT BEDTIME July 02, 2023 12:00am Start: 06-03-2022 End: 11-16-2022 take 2 tablets by mouth at dinner Paroxetine Hcl 10 mg Tablet Discontinued 20 mg PO WITH DINNER June 03, 2022 1:00am November 16, 2022 2:05pm On Hold: Resume on 11/23/22. Start: 06-03-2022 End: 11-16-2022 Start: 06-03-2022 End: 11-16-2022 take 20 mg by mouth at dinner Paroxetine Hcl Discontin ued 20 MG PO WITH DINNER June 03, 2022 12:00am November 16, 2022 1:05pm Comment on above: Take 10 mg by mouth daily at bedtime. phenazopyridine hydrochloride 100 mg oral tablet (20 sources) Start: take 1 tablet by mouth three times daily as needed Pyridium 100 mg oral tablet See Instructions, PRN as needed for urinary discomfort, 1 tab(s) Oral TID 3 day(s) PRN for catheter changes, # 3 cap(s), 0 Refill(s), Chronic suprapubic catheter Start Date: 05/17/24 Status: Ordered Start: 04-03-2019 take 1 tablet by yuliet three times daily as needed for muscle spasms Phenazopyridine (Pyridium) 200 mg Tablet Active 200 mg PO THREE TIMES A DAY as needed for Bladder Spasms May 27, 2021 1:00am Comment on above: Take 200 mg by mouth three times daily as needed. piperacillin 3000 mg / tazobactam 375 mg injection (20 sources) Penicillin-class Antibacterial, beta Lactamase Inhibitor Start: 07-08-2023 Piperacillin-Tazobactam -Dextrs (Zosyn In Dextrose (Iso-Osm)) 3.375 gram/50 mL piggyback Active 3.375 g IV Q8H July 08, 2023 1:00am dx: pseudomonas infection Start: 05-03-2014 End: 05-08-2014 take 3.375 g intravenously every six hours Piperacillin-Tazobactam Discontinued 3.375 GM IV EVERY 6 HOURS May 03, 2014 4:02pm May 08, 2014 1:55pm Start: 05-03-2014 End: 05-08-2014 Piperacillin-Tazobactam 3.37 5 GM/16.875 ML Vial Discontinued 3.375 g IV EVERY 6 HOURS May 03, 2014 1:00am May 08, 2014 1:55pm Start: 05-03-2014 End: 05-08-2014 Start: 05-03-2014 End: 05-08-2014 take 3.375 g intravenously every six hours Piperacillin-Tazobactam Discontinued 3.375 GM IV EVERY 6 HOURS May 03, 2014 12:00am May 08, 2014 12:55pm Start: 05-03-2014 End: 05-08-2014 take 3.375 g intravenously every six hours Piperacillin-Tazobactam Discontinued 3.375 GM IV EVERY 6 HOURS May 03, 2014 1:00am May 08, 2014 1:55pm polyethylene glycol 3350 83764 mg powder for oral solution (20 sources) Osmotic Laxative Start: 08-08-2019 take 17 g by mouth at bedtime Polyethylene Glycol 3350 17 GM packet Active 17 g PO AT BEDTIME August 08, 2019 1:00am Start: 03-22-2013 End: 10-01-2014 take 17 g by mouth once daily as needed for constipation Polyethylene Glycol 3350 17 GM Packet Discontinued 17 g PO DAILY as needed for Constipation August 10, 2014 9:55am October 01, 2014 3:29pm polyethylene glycol 3350 oral powder for reconstitution (1 source) Start: 07-28-2021 take 17 doses by mouth once daily as needed for constipation polyethylene glycol 3350 oral powder for reconstitution Dose : 17 gram(s) =, Oral, Daily, PRN Constipation, 0 Refill(s) Start Date: 07/28/21 Status: Ordered potassium chloride 10 meq extended release oral capsule (20 sources) Start: 07-08-2023 take 2 capsules by mouth at lunch Potassium Chloride 10 mEq Capsule, Extended Release Active 20 meq PO WITH LUNCH July 08, 2023 1:15pm Start: 04-22-2021 End: 07-08-2023 take 1 capsule by mouth at lunch Potassium Chloride 10 mEq Capsule, Extended Release Discontinued 10 meq PO WITH LUNCH April 22, 2021 1:00am July 08, 2023 1:16pm Start: 02-26-2021 Potassium Chlo ride (Qeb-Pfwb-Rgx M10) 10 mEq oral tablet, extended release 0 Refill(s) Start Date: 02/26/21 Status: Ordered potassium chlori de ER (KLOR-CON M10) 10 mEq tablet Take 10 mEq by mouth once daily. 0 Active Comment on above: Take 10 mEq by mouth once daily. Renacidin irrigation solution (2 sources) Start: 04-03-2019 Renacidin irrigation solution 0 Refill(s) Start Date: 04/03/19 Status: Ordered Senna Leaves (3 sources) Start: 04-03-2019 senna 8.6 mg oral tablet Dose : 8.6 mg = 1 tab(s), Oral, BID, PRN for constipation, 0 Refill(s) Start Date: 04/03/19 Status: Ordered Sennosides (6 sources) Start: 08-16-2018 take 17.2 mg by mouth twice daily Sennosides Active 17.2 MG PO TWICE A DAY August 16, 2018 12:00am Start: 08-16-2018 take 17.2 mg by mout h twice daily Sennosides Active 17.2 MG PO TWICE A DAY August 16, 2018 1:00am Sennosides 8.6 MG tablet (2 sources) Start: 08-16-2018 take 2 tablets by mouth twice daily Sennosides 8.6 MG tablet Active 17.2 mg PO TWICE A DAY August 16, 2018 1:00am sennosides, [facility] living 8.6 mg oral tablet (20 sources) Start: 04-03-2019 senna 8.6 mg o ral tablet Dose : 8.6 mg = 1 tab(s), Oral, BID, PRN for constipation, 0 Refill(s) Start Date: 04/03/19 Status: Ordered Start: 08-16-2018 take 17.2 mg by mout h twice daily Sennosides Active 17.2 MG PO TWICE A DAY August 16, 2018 12:00am Start: 09-11-2014 End: 10-01-2014 Sennosides (Senexon) 8.8 MG/ 5 ML Ml Discontinued 2 {tbl} PO DAILY September 11, 2014 12:00am October 01, 2014 3:29pm Start: 09-11-2014 End: 10-01-2014 Start: 09-11-2014 End: 10-01-2014 take 2 tablets by mouth once daily Sennosides (Senexon) 8.8 MG/5 ML Ml Discontinued 2 TABLET PO DAILY September 10, 2014 11:00pm October 01, 2014 2:29pm take 2 capsules by m outh twice daily Sennosides 8.6 mg cap Take 17.2 mg by mouth twice daily. 0 Active Comment on above: Take 17.2 mg by mout h twice daily. simethicone 80 mg oral capsule (20 sources) Start: 06-03-20 take 1 tablet by mouth once daily as needed for gastroesophageal reflux disease Simethicone 80 mg Tablet Active 80 mg PO DAILY as needed for Gastric Reflux June 03, 2022 1:00am Start: 04-03-2019 simethicone 80 mg oral tablet Dose : 80 mg = 1 tab(s), Chewed, QID, PRN for gas, # 60 tab(s), 0 Refill(s) Start Date: 04/03/19 Status: Ordered Comment on above: Take 80 mg by mouth once daily as needed. Trazodone (16 sources) Serotonin Reuptake Inhibitor Start: 08-04-2023 traZODone Oral, 0 Refill(s) Start Date: 08/04/23 Status: Ordered Start: 07-02-2023 take 1 tablet by mouth at bedt eda Trazodone 50 mg tablet Active 50 mg PO AT BEDTIME July 02, 2023 1:00am Start: 07-02-2023 Start: 04-03-2019 traZODone 100 mg oral tablet Dose : 100 mg = 1 tab(s), Oral, qHS, # 60 tab(s), 0 Refill(s) Start Date: 04/03/19 Status: Ordered triamcinolone acetonide 0.055 mg/actuat metered dose nasal spray (6 sources) Corticosteroid Start: 07-28-2021 take 1 dose nasal route once daily Nasacort Allergy 24HR 55 mcg/inh nasal spray Dose = 1 spray(s), Nostril, each, qDay, # 16.9 mL, 0 Refill(s) Start Date: 07/28/21 Status: Ordered Vitamin D with Minerals oral tablet, chewable (2 sources) Start: 04-03-2019 take 1 tablet by mouth once daily Vitamin D with Minerals oral tablet, chewable Dose = 1 tab(s), Chewed, qDay, # 90 tab(s), 0 Refill(s) Start Date: 04/03/19 Status: Ordered Vitamin D3 (9 sources) Start: 02-26-2021 Vitamin D3 Dos e : 2,000 unit(s) = 1 tab(s), Oral, Daily, # 60 tab(s), 0 Refill(s) Start Date: 02/26/21 Status: Ordered (20 sources) Start: 07-08-2023 Start: 06-03-2022 Start: 06-03-2022 End: 06-05-2022 Start: 08-16-2018 Start: 09-20-2014 End: 10-01-2014 Start: 09-20-2014 End: 10-01-2014 Start: 08-10-2014 End: 09-20-2014 Start: 03-22-2013 End: 03-22-2013 Completed/Discontinued Medications Medication Drug Class(es) Dates Sig (Normalized) Sig (Original) albuterol 0.21 mg/ml inhalation solution (18 sources) beta2-Adrenergic Agonist Start: 11-14-2022 End: 11-16-2022 take 0.63 mg by inhalation every four hours as needed for wheezing Albuterol Sulfate 0.63 mg/3 mL solution for nebulization Discontinued 0.63 mg INHALATION Q4H as needed for sob/wheezing November 14, 2022 12:00am November 16, 2022 2:05pm ALPRAZolam 0.25 mg oral tablet (20 sources) Benzodiazepine Start: 11-25-2014 End: 11-28-2014 take 1 tablet by mouth three times daily as needed for anxiety Alprazolam 0.25 MG tablet Discontinued 0.25 mg PO 3 TIMES DAILY NEEDED as needed for Anxiety November 25, 2014 12:00am November 28, 2014 12:44pm Start: 09-11-2014 End: 10-01-2014 take 1 tablet by mouth three times daily as needed for anxiety Alprazolam 0.25 MG tablet Discontinued 0.25 mg PO 3 TIMES DAILY NEEDED as needed for Anxiety September 20, 2014 3:17pm October 01, 2014 3:29pm take 1 tablet by yuliet th every eight hours as needed ALPRAZolam (XANAX) 0.5 mg tablet Take 0.5 mg by mouth three times daily as needed. 0 Active Comment on above: Take 0.5 mg by mouth three times daily as needed. amitriptyline hydrochloride 25 mg oral tablet (1 source) Tricyclic Antidepressant take 1 tablet by mouth once daily at bedtime amitriptyline (ELAVIL) 25 mg tablet Take 25 mg by mouth daily at bedtime. 0 Active Comment on above: Take 25 mg by mouth daily at bedtime. amoxicillin 875 mg / clavulanate 125 mg oral tablet (20 sources) Penicillin-class Antibacterial Start: End: take 1 tablet by mouth twice daily at mealtime Amoxicillin-Pot Clavulanate 875 MG tablet Discontinued 875 mg PO Q12H April 27, 2014 1:00am April 27, 2014 6:21pm one po bid with food Zderw-Xuej-Trvxx-Angel ag-Mv-Min (Darío (With Collagen)) 1 PACKET Packet (20 sources) Start: 015 End: take 1 dose by mouth twice daily at mealtime Vxytk-Brsf-Kdbep-Col lag-Mv-Min (Darío (With Collagen)) 1 PACKET Packet Discontinued 1 PACKET PO TWICE DAILY WITH MEALS September 20, 2014 3:12pm October 01, 2014 3:29pm Start: 09-20-2014 End: 10-01-2014 take 1 dose by mouth twice daily at mealtime Jkjys-Pvhj-Kijwk-Rjdpck-Yh-Jfc (Darío (W ith Collagen)) 1 PACKET Packet Discontinued 1 NMA PO TWICE DAILY WITH MEALS September 20, 2014 12:00am October 01, 2014 3:29pm Start: 09-20-2014 End: 10-01-2014 take 1 dose by mouth twice daily at mealtime Fzsgj-Dioj-Fsnsr-Rrbedv-Ij-Kbe (Darío (W ith Collagen)) 1 PACKET Packet Discontinued 1 PACKET PO TWICE DAILY WITH MEALS September 19, 2014 11:00pm October 01, 2014 2:29pm Start: 09-20-2014 End: 10-01-2014 take 1 dose by mouth twice daily at mealtime Dotug-Ipyz-Rfmqv-Drwmrj-Bd-Cuh (Darío (W ith Collagen)) 1 PACKET Packet Discontinued 1 PACKET PO TWICE DAILY WITH MEALS September 20, 2014 12:00am October 01, 2014 3:29pm ascorbic acid 500 mg oral tablet (20 sources) Vitamin C Start: 05-03-2014 End: 10-01-2014 take 2 tablets by mouth once daily Ascorbic Acid (Vitamin C) (Vitamin C) 500 MG tablet Discontinued 1000 mg PO DAILY August 10, 2014 9:55am October 01, 2014 3:29pm take 1 tablet by mouth once katya y Ascorbic Acid 1,000 mg tablet Take 1,000 mg by mouth once daily. 0 Active Ascorbic Acid 50 0 mg wafr Take by mouth twice daily. 0 Active Comment on above: Take by mouth twice daily. Take 1,000 mg by yuliet th once daily. bisacodyl 10 mg rectal suppository (20 sources) Stimulant Laxative Start: 04-03-2019 Bisac-Evac 10 mg rectal suppository Dose : 10 mg = 1 supp, Rectal, Daily, PRN for constipation, # 10 supp, 0 Refill(s) Start Date: 04/03/19 Status: Ordered Start: 03-01-2018 Bisacodyl 10 M G suppository Active 10 mg [place] AT BEDTIME as needed for Constipation March 01, 2018 12:00am Start: 03-01-2018 take 10 mg rectal ro [place] every twenty-four hours as needed BISACODYL RECTAL 10 mg by RECTAL route at bedtime as needed. 0 Active Comment on above: 10 mg by RECTAL route at bedtime as need ed. cefepime (20 sources) Cephalosporin Antibacterial Start: 09-21-19 End: 10-02-19 take 1 g intravenously every eight hours Cefepime Discontinued 1 GM IV EVERY 8 HOURS 126 September 20, 2014 2:17pm October 01, 2014 10:17am Start: 09-20-2014 End: 10-01-2014 take 1 g intravenously every eight hours Cefepime Discontinued 1 GM IV EVERY 8 HOURS 126 September 20, 2014 3:17pm October 01, 2014 11:17am Start: 08-10-2014 End: 09-20-2014 take 1 g intravenously every eight hours Cefepime Discontinued 1 GM IV EVERY 8 HOURS 126 August 10, 2014 9:39am September 20, 2014 3:17pm Start: 08-10-2014 End: 09-20-2014 take 1 g intravenously every eight hours Cefepime Discontinued 1 GM IV EVERY 8 HOURS 126 August 10, 2014 12:00am September 20, 2014 2:17pm Start: 08-10-2014 End: 09-20-2014 take 1 g intravenously every eight hours Cefepime Discontinued 1 GM IV EVERY 8 HOURS 126 August 10, 2014 1:00am September 20, 2014 3:17pm Cefepime 1 GM/10 ML Vial (4 sources) Start: 09-20-2014 End: 10-01-2014 Cefepime 1 GM/10 ML Vial Dis continued 1 g IV EVERY 8 HOURS 126 September 20, 2014 3:17pm October 01, 2014 11:17am Start: 08-10-2014 End: 09-20-2014 Cefepime 1 GM/10 ML Vial Dis continued 1 g IV EVERY 8 HOURS 126 August 10, 2014 1:00am September 20, 2014 3:17pm cephalexin 250 mg oral capsule (20 sources) Cephalosporin Antibacterial Start: 11-06-2022 End: 11-16-2022 take 1 capsule by mouth once daily Cephalexin 250 mg capsule Discontinued 250 mg PO DAILY November 06, 2022 12:00am November 16, 2022 12:36pm Start: 09-12-2022 End: 09-14-2022 take 1 capsule by mouth once daily Cephalexin 250 mg capsule Discontinued 250 mg PO DAILY September 12, 2022 12:00am September 14, 2022 12:17pm Start: 05-27-2021 End: 06-26-2021 take 1 capsule by mouth three times daily Cephalexin (Keflex) 500 mg Capsule Active 500 MG PO THREE TIMES A DAY May 27, 2021 8:09pm ciprofloxacin 500 mg oral tablet (20 sources) Quinolone Antimicrobial Start: 11-06-2022 End: 11-16-2022 take [id number] tablet by mouth twice daily Ciprofloxacin Hcl 500 mg tablet Discontinued 500 mg PO TWICE A DAY November 06, 2022 12:00am November 16, 2022 12:36pm for 10 days 11/06-11/17/22 Start: 11-06-2022 End: 11-16-2022 Start: 05-27-2021 take 500 mg by mouth twice daily Ciprofloxacin Hcl Active 500 MG PO TWICE A DAY May 27, 2021 10:03pm Start: 03-25-2013 End: 04-21-2013 take 1 tablet by mouth twice daily Ciprofloxacin Hcl 500 MG tablet Discontinued 500 mg PO TWICE A DAY March 25, 2013 12:00am April 21, 2013 11:42pm Start: 03-25-2013 End: 04-21-2013 clotrimazole 10 mg/ml topical cream (1 source) Azole Antifungal clotrimazole (L OTRIMIN, CLOTRIM) 1 % cream Apply to affected area twice daily. 0 Active Comment on above: Apply to affected ar ea twice daily. docusate sodium 50 mg / sennosides, senior living 8.6 mg oral tablet (20 sources) Start: 07-31-2014 End: 08-10-2014 Sennosides-Docusate Sodium (Senna Plus Tablet) 1 EACH tablet Discontinued 2 NMA PO DAILY July 31, 2014 1:00am August 10, 2014 9:56am Start: 07-31-2014 End: 08-10-2014 0.3 ml enoxaparin sodium 100 mg/ml prefilled syringe (20 sources) Low Molecular Weight Heparin Start: 05-03-2014 End: 05-08-2014 Enoxaparin 30 MG/0.3 ML syringe Discontinued 30 mg SC DAILY@0600 1 May 03, 2014 1:00am May 08, 2014 1:54pm Start: 05-03-2014 End: 05-08-2014 fluconazole 100 mg oral tablet (20 sources) Azole Antifungal Start: 07-31-2014 End: 10-01-2014 take 1 tablet by mouth once daily Fluconazole 100 MG tablet Discontinued 100 mg PO DAILY August 10, 2014 9:55am October 01, 2014 3:29pm fosfomycin 3000 mg powder for oral solution (10 sources) Start: 07-02-2023 End: 07-06-2023 take 3 g by mouth once for urinary tract infection Fosfomycin Tromethamine 3 gram packet Discontinued 3 g PO ONE TIME July 02, 2023 1:00am July 06, 2023 10:58am one time only for uti Start: 07-02-2023 End: 07-06-2023 12 hr guaiFENesin 600 mg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 [address] [place], [address] RDW CV Normal 11.6-14.6 [facility] Comment on above: Order Comment: - Result Comment: This specimen has been REJECTED due to Laboratory criteria: Clotted. LAB has been notified of need of recollection. 12/04/24 0850 [facility] Performed By: #### L 500.2500, M100.2200, L400.0001, L100.0100 #### [facility] [address] [place], [address] RDW SD Normal 35.1-43.9 [facility] Comment on above: Order Comment: 517-2 Result Comment: This specimen has been REJECTED due to Laboratory criteria: Clotted. LAB has been notified of need of recollection. 12/04/24 0850 [facility] Performed By: #### L 500.2500, M100.2200, L400.0001, L100.0100 #### [facility] [address] [place], [address] WBC Normal 4.4-11.0 [facility] Comment on above: Order Comment: -2 Result Comment: This specimen has been REJECTED due to Laboratory criteria: Clotted. LAB has been notified of need of recollection. 12/04/24 0850 [facility] Performed By: #### L 500.2500, M100.2200, L400.0001, L100.0100 #### [facility] [address] [place], [address] Comprehensive Metabolic Prof ilon 12-04-2024 Albumin [Mass/Vol] 3.7 g/dL Normal 3.5-5.0 [facility] Comment on above: Order Comment: 517-2 Performed By: #### L 500.2500, M100.2200, L400.0001, L100.0100 #### [facility] [address] [place], [address] Albumin/Globulin [Mass ratio] 1.0 {ratio} Normal 0.9-2.4 [facility] Comment on above: Order Comment: 517-2 Performed By: #### L 500.2500, M100.2200, L400.0001, L100.0100 #### [facility] [address] [place], [address] ALK PHOS 86 U/L Normal 35-104 [facility] Comment on above: Order Comment: 517-2 Performed By: #### L 500.2500, M100.2200, L400.0001, L100.0100 #### [facility] [address] [place], [address] ALT [Catalytic activity/Vol] 11 U/L Normal <=34 [facility] Comment on above: Order Comment: 517-2 Performed By: #### L 500.2500, M100.2200, L400.0001, L100.0100 #### [facility] [address] [place], [address] AST [Catalytic activity/Vol] 17 U/L Normal <=31 [facility] Comment on above: Order Comment: 517-2 Performed By: #### L 500.2500, M100.2200, L400.0001, L100.0100 #### [facility] [address] [place], [address] Bilirubin [Mass/Vol] 0.18 mg/dL Normal 0.00-1.30 [facility] Comment on above: Order Comment: 517-2 Performed By: #### L 500.2500, M100.2200, L400.0001, L100.0100 #### [facility] [address] [place], [address] BUN/CRE 39.2 RATIO High 10-20 [facility] Comment on above: Order Comment: 517-2 Performed By: #### L 500.2500, M100.2200, L400.0001, L100.0100 #### [facility] [address] [place], [address] Calcium [Mass/Vol] 9.0 mg/dL Normal 7.6-11.0 [facility] Comment on above: Order Comment: 517-2 Performed By: #### L 500.2500, M100.2200, L400.0001, L100.0100 #### [facility] [address] [place], [address] Chloride [Moles/Vol] 99 mmol/L Normal 98-108 [facility] Comment on above: Order Comment: 517-2 Performed By: #### L 500.2500, M100.2200, L400.0001, L100.0100 #### [facility] [address] [place], [address] CO2 [Moles/Vol] 23.9 mmol/L Normal 21.0-32.0 [facility] Comment on above: Order Comment: 517-2 Performed By: #### L 500.2500, M100.2200, L400.0001, L100.0100 #### [facility] [address] [place], [address] Creatinine [Mass/Vol] 0.27 mg/dL Low 0.70-1.20 [facility] Comment on above: Order Comment: 517-2 Performed By: #### L 500.2500, M100.2200, L400.0001, L100.0100 #### [facility] [address] [place], [address] GAP 16 High 5-15 [facility] Comment on above: Order Comment: 517-2 Performed By: #### L 500.2500, M100.2200, L400.0001, L100.0100 #### [facility] [address] [place], [address] GFR/1.73 sq M.predicted among non-blacks MDRD (S/P/Bld) [Vol rate/Area] 133 mL/min/{1.73_m2} Normal >60 [facility] Comment on above: Order Comment: 517-2 Result Comment: mL/m in/1.73m2 CKD-EPI Creatinine Equation (2020) Performed By: #### L 500.2500, M100.2200, L400.0001, L100.0100 #### [facility] [address] [place], [address] Globulin (S) [Mass/Vol] 3.7 g/dL Normal 2.2-4.2 [facility] Comment on above: Order Comment: 517-2 Performed By: #### L 500.2500, M100.2200, L400.0001, L100.0100 #### [facility] [address] [place], [address] Glucose [Mass/Vol] 120 mg/dL High 70-99 [facility] Comment on above: Order Comment: 517-2 Performed By: #### L 500.2500, M100.2200, L400.0001, L100.0100 #### [facility] [address] [place], [address] Potassium [Moles/Vol] 3.6 mmol/L Normal 3.3-5.1 [facility] Comment on above: Order Comment: 517-2 Performed By: #### L 500.2500, M100.2200, L400.0001, L100.0100 #### [facility] [address] [place], [address] Sodium [Moles/Vol] 139 mmol/L Normal 133-145 [facility] Comment on above: Order Comment: 517-2 Performed By: #### L 500.2500, M100.2200, L400.0001, L100.0100 #### [facility] [address] [place], [address] T PROT 7.4 g/dL Normal 5.9-8.4 [facility] Comment on above: Order Comment: 517-2 Performed By: #### L 500.2500, M100.2200, L400.0001, L100.0100 #### [facility] [address] [place], [address] Urea nitrogen [Mass/Vol] 10 mg/dL Normal 4-19 [facility] Comment on above: Order Comment: 517-2 Performed By: #### L 500.2500, M100.2200, L400.0001, L100.0100 #### [facility] [address] [place], [address] T4 Total, Thyroxinon 025 T4 [Mass/Vol] 9.6 ug/dL Normal 4.8-13.9 [facility] Comment on above: Order Comment: 517-2 Performed By: #### L 500.2500, M100.2200, L400.0001, L100.0100 #### [facility] [address] [place], [address] Thyroid Stim Hormone (TSH)on 12-04-2024 TSH 2.040 uIU/mL Normal 0.300-4.200 [facility] Comment on above: Order Comment: 517-2 Performed By: #### L 500.2500, M100.2200, L400.0001, L100.0100 #### [facility] [address] [place], [address] Absolute lymphocyte countOrd ered By: Kori Sethi on 10-06-2024 Lymphocytes Auto (Unsp spec) [#/Vol] 2.68 10*3/uL 0.83-4.51 [facility] Absolute neutrophil countOrd ered By: Kori Sethi on 10-06-2024 Neutrophils (Bld) [#/Vol] 5.5 10*3/uL 2.0-7.7 [facility] Anion gap in Serum or Plasma Ordered By: Kori Sethi on 10-06-2024 Anion gap [Moles/Vol] 14 mmol/L 5- [facility] Automated lymphocyte count a s percentage of total leukocytesOrdered By: Kori Sethi on 10-06-2024 Lymphocytes/100 WBC Auto (Unsp spec) 29.3 % 19- [facility] BUN/creatinine ratioOrdered By: Kori Sethi on 10-06-2024 Urea nitrogen/Creatinine [Mass ratio] 24.7 mg/mg High 10-20 [facility] Basophil percentageOrdered B y: Kori Sethi on 10-06-2024 Basophils/100 WBC (Bld) 0.4 % 0-1 [facility] Bilirubin, totalOrdered By: Kori Sethi on 10-06-2024 Bilirubin [Mass/Vol] 0.23 mg/dL 0.00-1.30 [facility] CBC W/Diff, Automatedon 09-13 Absolute Lymph 2.68 X10 3/uL Normal 0.83-4.51 [facility] Comment on above: Performed By: #### L 500.2500, M100.2200, L400.0001, L100.0100 #### [facility] [address] [place], [address] Absolute Neut 5.5 X10 3/uL Normal 2.0-7.7 [facility] Comment on above: Performed By: #### L 500.2500, M100.2200, L400.0001, L100.0100 #### [facility] [address] [place], [address] Basophils/100 WBC (Bld) 0.4 % Normal 0-1 [facility] Comment on above: Performed By: #### L 500.2500, M100.2200, L400.0001, L100.0100 #### [facility] [address] [place], [address] Eosinophils/100 WBC (Bld) 3.5 % Normal 0-5 [facility] Comment on above: Performed By: #### L 500.2500, M100.2200, L400.0001, L100.0100 #### [facility] [address] [place], [address] Erythrocyte distribution width (RBC) [Ratio] 15.4 % High 11.6-14.6 [facility] Comment on above: Performed By: #### L 500.2500, M100.2200, L400.0001, L100.0100 #### [facility] [address] [place], [address] Hematocrit (Bld) [Volume fraction] 33.0 % Low 37-47 [facility] Comment on above: Performed By: #### L 500.2500, M100.2200, L400.0001, L100.0100 #### [facility] [address] [place], [address] Hemoglobin (Bld) [Mass/Vol] 10.0 g/dL Low 12.0-15.0 [facility] Comment on above: Performed By: #### L 500.2500, M100.2200, L400.0001, L100.0100 #### [facility] [address] [place], [address] IG% 0.400 Normal 0.0-0.9 [facility] Comment on above: Result Comment: IG% - Immature Granulocytes (promyelocytes, myelocytes and metamyelocytes) > 1% indicates that a LEFT SHIFT is Present. Performed By: #### L 500.2500, M100.2200, L400.0001, L100.0100 #### [facility] [address] [place], [address] Lymphocytes/100 WBC (Bld) 29.3 % Normal 19-41 [facility] Comment on above: Performed By: #### L 500.2500, M100.2200, L400.0001, L100.0100 #### [facility] [address] [place], [address] MCH (RBC) [Entitic mass] 25.3 pg Low 27.0-32.0 [facility] Comment on above: Performed By: #### L 500.2500, M100.2200, L400.0001, L100.0100 #### [facility] [address] [place], [address] MCHC (RBC) [Mass/Vol] 30.3 g/dL Low 32-36 [facility] Comment on above: Performed By: #### L 500.2500, M100.2200, L400.0001, L100.0100 #### [facility] [address] [place], [address] MCV (RBC) [Entitic vol] 83.5 fL Normal 81-99 [facility] Comment on above: Performed By: #### L 500.2500, M100.2200, L400.0001, L100.0100 #### [facility] [address] [place], [address] Monocytes/100 WBC (Bld) 6.7 % Normal 0-10 [facility] Comment on above: Performed By: #### L 500.2500, M100.2200, L400.0001, L100.0100 #### [facility] [address] [place], [address] Neutrophils/100 WBC (Bld) 59.7 % Normal 47-70 [facility] Comment on above: Performed By: #### L 500.2500, M100.2200, L400.0001, L100.0100 #### [facility] [address] [place], [address] Nucleated RBC (Bld) [#/Vol] 0 10*3/uL Normal 0-5 [facility] Comment on above: Performed By: #### L 500.2500, M100.2200, L400.0001, L100.0100 #### [facility] [address] [place], [address] Platelet mean volume (Bld) [Entitic vol] 9.6 fL Normal 6.2-12.0 [facility] Comment on above: Performed By: #### L 500.2500, M100.2200, L400.0001, L100.0100 #### [facility] [address] [place], [address] Platelets (Bld) [#/Vol] 357 10*3/uL Normal 150-450 [facility] Comment on above: Performed By: #### L 500.2500, M100.2200, L400.0001, L100.0100 #### [facility] [address] [place], [address] RBC (Bld) [#/Vol] 3.95 10*6/uL Low 4.2-5.4 [facility] Comment on above: Performed By: #### L 500.2500, M100.2200, L400.0001, L100.0100 #### [facility] [address] [place], [address] RDW SD 47.2 fl High 35.1-43.9 [facility] Comment on above: Performed By: #### L 500.2500, M100.2200, L400.0001, L100.0100 #### [facility] [address] [place], [address] WBC (Bld) [#/Vol] 9.2 10*3/uL Normal 4.4-11.0 [facility] Comment on above: Performed By: #### L 500.2500, M100.2200, L400.0001, L100.0100 #### [facility] [address] [place], [address] Carbon dioxide, total [Moles /volume] in Central venous bloodOrdered By: Kori Sethi on 10-06-2024 CO2 [Moles/Vol] 26.1 mmol/L 21.0-32.0 [facility] Chloride assayOrdered By: Edenilson Sethi on 10-06-2024 Chloride [Moles/Vol] 98 mmol/L 98-108 [facility] Comprehensive Metabolic Prof ilon 10-06-2024 Albumin [Mass/Vol] 3.6 g/dL Normal 3.5-5.0 [facility] Comment on above: Performed By: #### L 500.2500, M100.2200, L400.0001, L100.0100 #### [facility] [address] [place], [address] Albumin/Globulin [Mass ratio] 1.0 {ratio} Normal 0.9-2.4 [facility] Comment on above: Performed By: #### L 500.2500, M100.2200, L400.0001, L100.0100 #### [facility] [address] [place], [address] ALK PHOS 77 U/L Normal 35-104 [facility] Comment on above: Performed By: #### L 500.2500, M100.2200, L400.0001, L100.0100 #### [facility] [address] [place], [address] ALT [Catalytic activity/Vol] 10 U/L Normal <=34 [facility] Comment on above: Performed By: #### L 500.2500, M100.2200, L400.0001, L100.0100 #### [facility] [address] [place], [address] AST [Catalytic activity/Vol] 15 U/L Normal <=31 [facility] Comment on above: Performed By: #### L 500.2500, M100.2200, L400.0001, L100.0100 #### [facility] [address] [place], [address] Bilirubin [Mass/Vol] 0.23 mg/dL Normal 0.00-1.30 [facility] Comment on above: Performed By: #### L 500.2500, M100.2200, L400.0001, L100.0100 #### [facility] [address] [place], [address] BUN/CRE 24.7 RATIO High 10-20 [facility] Comment on above: Performed By: #### L 500.2500, M100.2200, L400.0001, L100.0100 #### [facility] [address] [place], [address] Calcium [Mass/Vol] 8.3 mg/dL Normal 7.6-11.0 [facility] Comment on above: Performed By: #### L 500.2500, M100.2200, L400.0001, L100.0100 #### [facility] [address] [place], [address] Chloride [Moles/Vol] 98 mmol/L Normal 98-108 [facility] Comment on above: Performed By: #### L 500.2500, M100.2200, L400.0001, L100.0100 #### [facility] [address] [place], [address] CO2 [Moles/Vol] 26.1 mmol/L Normal 21.0-32.0 [facility] Comment on above: Performed By: #### L 500.2500, M100.2200, L400.0001, L100.0100 #### [facility] [address] [place], [address] Creatinine [Mass/Vol] 0.28 mg/dL Low 0.70-1.20 [facility] Comment on above: Performed By: #### L 500.2500, M100.2200, L400.0001, L100.0100 #### [facility] [address] [place], [address] GAP 14 Normal 5-15 [facility] Comment on above: Performed By: #### L 500.2500, M100.2200, L400.0001, L100.0100 #### [facility] [address] [place], [address] GFR/1.73 sq M.predicted among non-blacks MDRD (S/P/Bld) [Vol rate/Area] 131 mL/min/{1.73_m2} Normal >60 [facility] Comment on above: Result Comment: mL/m in/1.73m2 CKD-EPI Creatinine Equation (2020) Performed By: #### L 500.2500, M100.2200, L400.0001, L100.0100 #### [facility] [address] [place], [address] Globulin (S) [Mass/Vol] 3.5 g/dL Normal 2.2-4.2 [facility] Comment on above: Performed By: #### L 500.2500, M100.2200, L400.0001, L100.0100 #### [facility] [address] [place], [address] Glucose [Mass/Vol] 127 mg/dL High 70-99 [facility] Comment on above: Performed By: #### L 500.2500, M100.2200, L400.0001, L100.0100 #### [facility] [address] [place], [address] Potassium [Moles/Vol] 3.7 mmol/L Normal 3.3-5.1 [facility] Comment on above: Performed By: #### L 500.2500, M100.2200, L400.0001, L100.0100 #### [facility] [address] [place], [address] Sodium [Moles/Vol] 138 mmol/L Normal 133-145 [facility] Comment on above: Performed By: #### L 500.2500, M100.2200, L400.0001, L100.0100 #### [facility] [address] [place], [address] T PROT 7.1 g/dL Normal 5.9-8.4 [facility] Comment on above: Performed By: #### L 500.2500, M100.2200, L400.0001, L100.0100 #### [facility] [address] [place], [address] Urea nitrogen [Mass/Vol] 7 mg/dL Normal 4-19 [facility] Comment on above: Performed By: #### L 500.2500, M100.2200, L400.0001, L100.0100 #### [facility] [address] [place], [address] Eosinophil percentageOrdered By: Kori Sethi on 10-06-2024 Eosinophils/100 WBC (Bld) 3.5 % 0-5 [facility] Erythrocyte distribution wid th ratioOrdered By: Kori Sethi on 10-06-2024 Erythrocyte distribution width (RBC) [Ratio] 15.4 % High 11.6-14.6 [facility] Erythrocyte distribution wid th standard deviationOrdered By: Kori Sethi on 10-06-2024 Erythrocyte distribution width (RBC) [Ratio] 47.2 fl High 35.1-43.9 [facility] Glomerular filtration rate ( GFR) estimation/1.73 sq m using serum, plasma, or whole bOrdered By: Kori Sethi on 10-06-2024 GFR/1.73 sq M.predicted among non-blacks MDRD (S/P/Bld) [Vol rate/Area] 131 mL/min/{1.73_m2} >60 [facility] Comment on above: mL/min/1.73m2 CKD-EP I Creatinine Equation (2020) Hematocrit Auto (Bld) [Volum e fraction]Ordered By: Kori Sethi on 10-06-2024 Hematocrit (Bld) [Volume fraction] 33.0 % Low 37-47 [facility] Hemoglobin measurementOrdere d By: Kori Sethi on 10-06-2024 Hemoglobin (Bld) [Mass/Vol] 10.0 g/dL Low 12.0-15.0 [facility] Immature granulocytes/100 WB C Auto (Bld)Ordered By: Kori Sethi on 10-06-2024 Immature granulocytes/100 WBC (Bld) 0.400 % 0.0-0.9 [facility] Comment on above: IG% - Immature Granu locytes (promyelocytes, myelocytes and metamyelocytes) > 1% indicates that a LEFT SHIFT is Present. Laboratory - Chemistry and C hemistry - challengeOrdered By: Kori Sethi on 10-06-2024 AST [Catalytic activity/Vol] 15 U/L <32 [facility] MCV (mean corpuscular volume ) determinationOrdered By: Kori Sethi on 10-06-2024 MCV (RBC) [Entitic vol] 83.5 fL 81-99 [facility] Mean corpuscular hemoglobin (MCH) determinationOrdered By: Kori Sethi on 10-06-2024 MCH (RBC) [Entitic mass] 25.3 pg Low 27.0-32.0 [facility] Mean corpuscular hemoglobin concentration (MCHC) determinationOrdered By: Kori Sethi on 10-06-2024 MCHC (RBC) [Mass/Vol] 30.3 g/dL Low 32-36 [facility] Mean platelet volume determi nationOrdered By: Kori Sethi on 10-06-2024 Platelet mean volume (Bld) [Entitic vol] 9.6 fL 6.2-12.0 [facility] Monocyte percentageOrdered B y: Kori Sethi on 10-06-2024 Monocytes/100 WBC (Bld) 6.7 % 0-10 [facility] Neutrophil percentageOrdered By: Kori Sethi on 10-06-2024 Neutrophils/100 WBC (Bld) 59.7 % 47-70 [facility] Nucleated red blood cell per centageOrdered By: Kori Sethi on 10-06-2024 Nucleated RBC/100 WBC (Bld) [Ratio] 0 % 0-5 [facility] Platelet countOrdered By: Edenilson Sethi on 10-06-2024 Platelets (Bld) [#/Vol] 357 10*3/uL 150-450 [facility] Potassium measurement (mass/ volume)Ordered By: Kori Sethi on 10-06-2024 Potassium (Unsp spec) [Mass/Vol] 3.7 mmol/L 3.3-5.1 [facility] RBC Auto (Bld) [#/Vol]Ordere d By: Kori Sethi on 10-06-2024 RBC (Bld) [#/Vol] 3.95 10*6/uL Low 4.2-5.4 [facility] Serum creatinine measurement (mass/volume)Ordered By: Kori Sethi on 10-06-2024 Creatinine [Mass/Vol] 0.28 mg/dL Low 0.70-1.20 [facility] Serum globulin measurementOr dered By: Kori Sethi on 10-06-2024 Globulin (S) [Mass/Vol] 3.5 g/dL 2.2-4.2 [facility] Serum glucose measurement (m ass/volume)Ordered By: Kori Sethi on 10-06-2024 Glucose [Mass/Vol] 127 mg/dL High 70-99 [facility] Serum or plasma alanine lyon otransferase (ALT) measurementOrdered By: Kori Sethi on 10-06-2024 ALT [Catalytic activity/Vol] 10 U/L <35 [facility] Serum or plasma albumin miguel angel urement (mass/volume)Ordered By: Kori Sethi on 10-06-2024 Albumin [Mass/Vol] 3.6 g/dL 3.5-5.0 [facility] Serum or plasma albumin/glob ulin mass ratioOrdered By: Kori Sethi on 10-06-2024 Albumin/Globulin [Mass ratio] 1.0 {ratio} 0.9-2.4 [facility] Serum or plasma alkaline raghu sphatase measurementOrdered By: Kori Sethi on 10-06-2024 ALP [Catalytic activity/Vol] 77 U/L 35-104 [facility] Serum or plasma calcium miguel angel urement (mass/volume)Ordered By: Kori Sethi on 10-06-2024 Calcium [Mass/Vol] 8.3 mg/dL 7.6-11.0 [facility] Serum or plasma urea nitroge n measurement (mass/volume)Ordered By: Kori Sethi on 10-06-2024 Urea nitrogen [Mass/Vol] 7 mg/dL 4-19 [facility] Sodium levelOrdered By: Bailey Sethi on 10-06-2024 Sodium [Moles/Vol] 138 mmol/L 133-145 [facility] Total proteinOrdered By: Shavonne Sethi on 10-06-2024 Protein [Mass/Vol] 7.1 g/dL 5.9-8.4 [facility] White blood cell (WBC) count Ordered By: Kori Sethi on 10-06-2024 WBC (Bld) [#/Vol] 9.2 10*3/uL 4.4-11.0 [facility] Anion gap in Serum or Plasma Ordered By: Lavon Vicente on 09-06-2024 Anion gap [Moles/Vol] 11 mmol/L 5-15 [facility] BUN/creatinine ratioOrdered By: Lavon Vicente on 09-06-2024 Urea nitrogen/Creatinine [Mass ratio] 35.3 mg/mg High 10-20 [facility] Bilirubin, totalOrdered By: Lavon Vicente on 09-06-2024 Bilirubin [Mass/Vol] mg/dL 0.00-1.30 [facility] CBC-Complete Blood Cnt No Di ffon 09-06-2024 Erythrocyte distribution width (RBC) [Ratio] 16.5 % High 11.6-14.6 [facility] Comment on above: Order Comment: 517.2 Performed By: #### L 500.2500, M100.2200, L400.0001, L100.0100 #### [facility] [address] [place], [address] Hematocrit (Bld) [Volume fraction] 31.5 % Low 37-47 [facility] Comment on above: Order Comment: 517.2 Performed By: #### L 500.2500, M100.2200, L400.0001, L100.0100 #### [facility] [address] [place], [address] Hemoglobin (Bld) [Mass/Vol] 9.7 g/dL Low 12.0-15.0 [facility] Comment on above: Order Comment: 517.2 Performed By: #### L 500.2500, M100.2200, L400.0001, L100.0100 #### [facility] [facility] [address] [place], [address] MCH (RBC) [Entitic mass] 26.0 pg Low 27.0-32.0 [facility] Comment on above: Order Comment: 517.2 Performed By: #### L 500.2500, M100.2200, L400.0001, L100.0100 #### [facility] [address] [place], [address] MCHC (RBC) [Mass/Vol] 30.8 g/dL Low 32-36 [facility] Comment on above: Order Comment: 517.2 Performed By: #### L 500.2500, M100.2200, L400.0001, L100.0100 #### [facility] [address] [place], [address] MCV (RBC) [Entitic vol] 84.5 fL Normal 81-99 [facility] Comment on above: Order Comment: 517.2 Performed By: #### L 500.2500, M100.2200, L400.0001, L100.0100 #### [facility] [address] [place], [address] Platelet mean volume (Bld) [Entitic vol] 9.6 fL Normal 6.2-12.0 [facility] Comment on above: Order Comment: 517.2 Performed By: #### L 500.2500, M100.2200, L400.0001, L100.0100 #### [facility] [address] [place], [address] Platelets (Bld) [#/Vol] 295 10*3/uL Normal 150-450 [facility] Comment on above: Order Comment: 517.2 Performed By: #### L 500.2500, M100.2200, L400.0001, L100.0100 #### [facility] [address] [place], [address] RBC (Bld) [#/Vol] 3.73 10*6/uL Low 4.2-5.4 [facility] Comment on above: Order Comment: 517.2 Performed By: #### L 500.2500, M100.2200, L400.0001, L100.0100 #### [facility] [address] [place], [address] RDW SD 51.1 fl High 35.1-43.9 [facility] Comment on above: Order Comment: 517.2 Performed By: #### L 500.2500, M100.2200, L400.0001, L100.0100 #### [facility] [address] [place], [address] WBC (Bld) [#/Vol] 6.5 10*3/uL Normal 4.4-11.0 [facility] Comment on above: Order Comment: 517.2 Performed By: #### L 500.2500, M100.2200, L400.0001, L100.0100 #### [facility] [address] [place], [address] Carbon dioxide, total [Moles /volume] in Central venous bloodOrdered By: Lavon Vicente on 09-06-2024 CO2 [Moles/Vol] 27.9 mmol/L 21.0-32.0 [facility] Chloride assayOrdered By: Cristi Vicente on 09-06-2024 Chloride [Moles/Vol] 103 mmol/L 98-108 [facility] Comprehensive Metabolic Prof ilon 09-06-2024 Albumin [Mass/Vol] 3.4 g/dL Low 3.5-5.0 [facility] Comment on above: Order Comment: 517.2 Performed By: #### L 500.2500, M100.2200, L400.0001, L100.0100 #### [facility] [address] [place], [address] Albumin/Globulin [Mass ratio] 1.0 {ratio} Normal 0.9-2.4 [facility] Comment on above: Order Comment: 517.2 Performed By: #### L 500.2500, M100.2200, L400.0001, L100.0100 #### [facility] [address] [place], [address] ALK PHOS 59 U/L Normal 35-104 [facility] Comment on above: Order Comment: 517.2 Performed By: #### L 500.2500, M100.2200, L400.0001, L100.0100 #### [facility] [address] [place] [place], [address] ALT [Catalytic activity/Vol] 15 U/L Normal <=34 [facility] Comment on above: Order Comment: 517.2 Performed By: #### L 500.2500, M100.2200, L400.0001, L100.0100 #### [facility] [address] [place], [address] AST [Catalytic activity/Vol] 20 U/L Normal <=31 [facility] Comment on above: Order Comment: 517.2 Performed By: #### L 500.2500, M100.2200, L400.0001, L100.0100 #### [facility] [address] [place], [address] BUN/CRE 35.3 RATIO High 10-20 [facility] Comment on above: Order Comment: 517.2 Performed By: #### L 500.2500, M100.2200, L400.0001, L100.0100 #### [facility] [address] [place], [address] Calcium [Mass/Vol] 6.8 mg/dL Low 7.6-11.0 [facility] Comment on above: Order Comment: 517.2 Performed By: #### L 500.2500, M100.2200, L400.0001, L100.0100 #### [facility] [address] [place], [address] Chloride [Moles/Vol] 103 mmol/L Normal 98-108 [facility] Comment on above: Order Comment: 517.2 Performed By: #### L 500.2500, M100.2200, L400.0001, L100.0100 #### [facility] [address] [place], [address] CO2 [Moles/Vol] 27.9 mmol/L Normal 21.0-32.0 [facility] Comment on above: Order Comment: 517.2 Performed By: #### L 500.2500, M100.2200, L400.0001, L100.0100 #### [facility] [address] [place], [address] Creatinine [Mass/Vol] 0.25 mg/dL Low 0.70-1.20 [facility] Comment on above: Order Comment: 517.2 Performed By: #### L 500.2500, M100.2200, L400.0001, L100.0100 #### [facility] [address] [place], [address] GAP 11 Normal 5-15 [facility] Comment on above: Order Comment: 517.2 Performed By: #### L 500.2500, M100.2200, L400.0001, L100.0100 #### [facility] [address] [place], [address] GFR/1.73 sq M.predicted among non-blacks MDRD (S/P/Bld) [Vol rate/Area] 135 mL/min/{1.73_m2} Normal >60 [facility] Comment on above: Order Comment: 517.2 Result Comment: mL/m in/1.73m2 CKD-EPI Creatinine Equation (2020) Performed By: #### L 500.2500, M100.2200, L400.0001, L100.0100 #### [facility] [address] [place], [address] Globulin (S) [Mass/Vol] 3.4 g/dL Normal 2.2-4.2 [facility] Comment on above: Order Comment: 517.2 Performed By: #### L 500.2500, M100.2200, L400.0001, L100.0100 #### [facility] [address] [place], [address] Glucose [Mass/Vol] 110 mg/dL High 70-99 [facility] Comment on above: Order Comment: 517.2 Performed By: #### L 500.2500, M100.2200, L400.0001, L100.0100 #### [facility] [address] [place], [address] Potassium [Moles/Vol] 3.9 mmol/L Normal 3.3-5.1 [facility] Comment on above: Order Comment: 517.2 Performed By: #### L 500.2500, M100.2200, L400.0001, L100.0100 #### [facility] [address] [place], [address] Sodium [Moles/Vol] 142 mmol/L Normal 133-145 [facility] Comment on above: Order Comment: 517.2 Performed By: #### L 500.2500, M100.2200, L400.0001, L100.0100 #### [facility] [address] [place], [address] T BILI < 0.15 Normal 0.00-1.30 [facility] Comment on above: Order Comment: 517.2 Performed By: #### L 500.2500, M100.2200, L400.0001, L100.0100 #### [facility] [address] [place], [address] T PROT 6.9 g/dL Normal 5.9-8.4 [facility] Comment on above: Order Comment: 517.2 Performed By: #### L 500.2500, M100.2200, L400.0001, L100.0100 #### [facility] [address] [place], [address] Urea nitrogen [Mass/Vol] 9 mg/dL Normal 4-19 [facility] Comment on above: Order Comment: 517.2 Performed By: #### L 500.2500, M100.2200, L400.0001, L100.0100 #### [facility] [address] [place], [address] Erythrocyte distribution wid th (RBC) [Ratio]Ordered By: Lavon Vicente on 09-06-2024 Erythrocyte distribution width (RBC) [Entitic vol] 51.1 fL High 35.1-43.9 [facility] Erythrocyte distribution wid th ratioOrdered By: Lavon Vicente on 09-06-2024 Erythrocyte distribution width (RBC) [Ratio] 16.5 % High 11.6-14.6 [facility] Erythrocyte distribution wid th standard deviationOrdered By: Lavon Vicente on 09-06-2024 Erythrocyte distribution width (RBC) [Ratio] 51.1 fl High 35.1-43.9 [facility] GFR/1.73 sq M.predicted juvenal g non-blacks MDRD (S/P/Bld) [Vol rate/Area]Ordered By: Lavon Vicente on 09-06-2024 Estimated GFR (MDRD) Non-Af Amer 135 >60 [facility] Comment on above: mL/min/1.73m2 CKD-EP I Creatinine Equation (2020) Glomerular filtration rate ( GFR) estimation/1.73 sq m using serum, plasma, or whole bOrdered By: Lavon Vicente on 09-06-2024 GFR/1.73 sq M.predicted among non-blacks MDRD (S/P/Bld) [Vol rate/Area] 135 mL/min/{1.73_m2} >60 [facility] Comment on above: mL/min/1.73m2 CKD-EP I Creatinine Equation (2020) Hematocrit Auto (Bld) [Volum e fraction]Ordered By: Lavon Vicente on 09-06-2024 Hematocrit (Bld) [Volume fraction] 31.5 % Low 37-47 [facility] Hemoglobin measurementOrdere d By: Lavon Vicente on 09-06-2024 Hemoglobin (Bld) [Mass/Vol] 9.7 g/dL Low 12.0-15.0 [facility] L506.1001on 09-06-2024 Vitamin D 25-OH 31.2 ng/mL Normal 30-100 [facility] Comment on above: Order Comment: 517-2 Result Comment: Rosalba min D Status Deficiency: <20 ng/mL (50nmol/L) Insufficiency: 20-30 ng/mL (50-75 nmol/L) Sufficiency: 30-100 ng/mL (75-250 nmol/L) Toxicity: >100 ng/mL (>250 nmol/L) Performed By: #### L 500.4050, L503.0105, L506.1000, L100.0100, L500.4100, L501.9520 #### [facility] [address] [place], [place], [id number] Laboratory - Chemistry and C hemistry - challengeOrdered By: Lavon Vicente on 09-06-2024 AST [Catalytic activity/Vol] 20 U/L <32 [facility] MCV (mean corpuscular volume ) determinationOrdered By: Lavon Vicente on 09-06-2024 MCV (RBC) [Entitic vol] 84.5 fL 81-99 [facility] Mean corpuscular hemoglobin (MCH) determinationOrdered By: Lavon Vicente on 09-06-2024 MCH (RBC) [Entitic mass] 26.0 pg Low 27.0-32.0 [facility] Mean corpuscular hemoglobin concentration (MCHC) determinationOrdered By: Lavon Vicente on 09-06-2024 MCHC (RBC) [Mass/Vol] 30.8 g/dL Low 32-36 [facility] Mean platelet volume determi nationOrdered By: Lavon Vicente on 09-06-2024 Platelet mean volume (Bld) [Entitic vol] 9.6 fL 6.2-12.0 [facility] Platelet countOrdered By: Cristi Vicente on 09-06-2024 Platelets (Bld) [#/Vol] 295 10*3/uL 150-450 [facility] Potassium (Unsp spec) [Mass/ Vol]Ordered By: Lavon Vicente on 09-06-2024 Potassium [Moles/Vol] 3.9 mmol/L 3.3-5.1 [facility] Potassium measurement (mass/ volume)Ordered By: Lavon Vicente on 09-06-2024 Potassium (Unsp spec) [Mass/Vol] 3.9 mmol/L 3.3-5.1 [facility] RBC Auto (Bld) [#/Vol]Ordere d By: Lavon Vicente on 09-06-2024 RBC (Bld) [#/Vol] 3.73 10*6/uL Low 4.2-5.4 [facility] Serum creatinine measurement (mass/volume)Ordered By: Lavon Vicente on 09-06-2024 Creatinine [Mass/Vol] 0.25 mg/dL Low 0.70-1.20 [facility] Serum globulin measurementOr dered By: Lavon Vicente on 09-06-2024 Globulin (S) [Mass/Vol] 3.4 g/dL 2.2-4.2 [facility] Serum glucose measurement (m ass/volume)Ordered By: Lavon Vicente on 09-06-2024 Glucose [Mass/Vol] 110 mg/dL High 70-99 [facility] Serum or plasma alanine lyon otransferase (ALT) measurementOrdered By: Lavon Vicente on 09-06-2024 ALT [Catalytic activity/Vol] 15 U/L <35 [facility] Serum or plasma albumin miguel angel urement (mass/volume)Ordered By: Lavon Vicente on 09-06-2024 Albumin [Mass/Vol] 3.4 g/dL Low 3.5-5.0 [facility] Serum or plasma albumin/glob ulin mass ratioOrdered By: Lavon Vicente on 09-06-2024 Albumin/Globulin [Mass ratio] 1.0 {ratio} 0.9-2.4 [facility] Serum or plasma alkaline raghu sphatase measurementOrdered By: Lavon Vicente on 09-06-2024 ALP [Catalytic activity/Vol] 59 U/L 35-104 [facility] Serum or plasma calcium miguel angel urement (mass/volume)Ordered By: Lavon Vicente on 09-06-2024 Calcium [Mass/Vol] 6.8 mg/dL Low 7.6-11.0 [facility] Serum or plasma urea nitroge n measurement (mass/volume)Ordered By: Lavon Vicente on 09-06-2024 Urea nitrogen [Mass/Vol] 9 mg/dL 4-19 [facility] Sodium levelOrdered By: Lavon Vicente on 09-06-2024 Sodium [Moles/Vol] 142 mmol/L 133-145 [facility] T4 Free Directon 09-06-2024 T4 FREE DIRECT 1.40 ng/dL Normal 0.76-1.46 [facility] Comment on above: Order Comment: 517-2 Performed By: #### L 500.4050, L503.0105, L506.1000, L100.0100, L500.4100, L501.9520 #### [facility] [address] [place], [place], [address] T4 freeOrdered By: Lavon syed on 09-06-2024 Free T4 [Mass/Vol] 1.40 ng/dL 0.76-1.46 [facility] TSH DL <= 0.005 mIU/L QnOrde red By: Lavon Vicente on 09-06-2024 Thyroid Stimulating Hormone (TSH) 2.120 uIU/mL 0.300-4.200 [facility] TSH Qn 2.120 uIU/mL 0.300-4.200 [facility] Thyroid Stim Hormone (TSH)on 09-06-2024 TSH 2.120 uIU/mL Normal 0.300-4.200 [facility] Comment on above: Order Comment: 517-2 Performed By: #### L 500.4050, L503.0105, L506.1000, L100.0100, L500.4100, L501.9520 #### [facility] [address] [place], [place], [address] Total proteinOrdered By: Estefany Vicente on 09-06-2024 Protein [Mass/Vol] 6.9 g/dL 5.9-8.4 [facility] Vitamin D, 25-hydroxyOrdered By: Lavon Vicente on 09-06-2024 Vitamin D 25-Hydroxy 31.2 ng/mL 30-100 [facility] Comment on above: Vitamin D StatusDefi ciency: <20 ng/mL (50nmol/L)Insufficiency: 20-30 ng/mL (50-75 nmol/L)Sufficiency: 30-100 ng/mL (75-250 nmol/L)Toxicity: >100 ng/mL (>250 nmol/L) White blood cell (WBC) count Ordered By: Lavon Vicente on 09-06-2024 WBC (Bld) [#/Vol] 6.5 10*3/uL 4.4-11.0 [facility] Serum or plasma thyroid stim ulating hormone (TSH) measurement (units/volume)Ordered By: Kori Sethi on 07-25-2024 TSH Qn 0.989 uIU/mL 0.358-3.740 [facility] TSH QnOrdered By: Kori Robbins la on 07-25-2024 Thyroid Stimulating Hormone (TSH) 0.989 uIU/mL 0.358-3.740 [facility] Thyroid Stim Hormone (TSH)on 07-25-2024 TSH 0.989 uIU/mL Normal 0.358-3.740 [facility] Comment on above: Order Comment: 517.2 Performed By: #### L 500.2500, M100.2200, L400.0001, L100.0100 #### [facility] [address] [place], [address] Absolute lymphocyte countOrd ered By: Kori Sethi on 07-14-2024 Lymphocytes Auto (Unsp spec) [#/Vol] 2.86 10*3/uL 0.83-4.51 [facility] Absolute neutrophil countOrd ered By: Kori Sethi on 07-14-2024 Neutrophils (Bld) [#/Vol] 5.7 10*3/uL 2.0-7.7 [facility] Albumin to globulin ratioOrd ered By: Kori Sethi on 07-14-2024 Albumin/Globulin [Mass ratio] 0.6 {ratio} Low 0.9-2.4 [facility] Automated lymphocyte count a s percentage of total leukocytesOrdered By: Kori Sethi on 07-14-2024 Lymphocytes/100 WBC Auto (Unsp spec) 30.2 % 19-41 [facility] Basophil percentageOrdered B y: Kori Sethi on 07-14-2024 Basophils/100 WBC (Bld) 0.5 % 0-1 [facility] Bilirubin, totalOrdered By: Kori Sethi on 07-14-2024 Bilirubin [Mass/Vol] 0.20 mg/dL 0.20-1.00 [facility] Comment on above: For patients on eltr ombopag therapy, use of Dimension Amanda TBIL is not recommended. Blood urea nitrogen (BUN)/cr eatinine ratioOrdered By: Kori Sethi on 07-14-2024 Urea nitrogen/Creatinine [Mass ratio] 43.2 mg/mg High 10-20 [facility] CBC W/Diff, Automatedon -3 Absolute Lymph 2.86 X10 3/uL Normal 0.83-4.51 [facility] Comment on above: Order Comment: 517-2 Performed By: #### L 500.2500, M100.2200, L400.0001, L100.0100 #### [facility] [address] [place], [address] Absolute Neut 5.7 X10 3/uL Normal 2.0-7.7 [facility] Comment on above: Order Comment: 517-2 Performed By: #### L 500.2500, M100.2200, L400.0001, L100.0100 #### [facility] [address] [place], [address] Basophils/100 WBC (Bld) 0.5 % Normal 0-1 [facility] Comment on above: Order Comment: 517-2 Performed By: #### L 500.2500, M100.2200, L400.0001, L100.0100 #### [facility] [address] [place], [address] Eosinophils/100 WBC (Bld) 2.5 % Normal 0-5 [facility] Comment on above: Order Comment: 517-2 Performed By: #### L 500.2500, M100.2200, L400.0001, L100.0100 #### [facility] [address] [place], [address] Erythrocyte distribution width (RBC) [Ratio] 16.2 % High 11.6-14.6 [facility] Comment on above: Order Comment: 517-2 Performed By: #### L 500.2500, M100.2200, L400.0001, L100.0100 #### [facility] [address] [place], [address] Hematocrit (Bld) [Volume fraction] 32.1 % Low 37-47 [facility] Comment on above: Order Comment: 517-2 Performed By: #### L 500.2500, M100.2200, L400.0001, L100.0100 #### [facility] [address] [place], [address] Hemoglobin (Bld) [Mass/Vol] 9.9 g/dL Low 12.0-15.0 [facility] Comment on above: Order Comment: 517-2 Performed By: #### L 500.2500, M100.2200, L400.0001, L100.0100 #### [facility] [address] [place], [address] IG% 0.400 Normal 0.0-0.9 [facility] Comment on above: Order Comment: 517-2 Result Comment: IG% - Immature Granulocytes (promyelocytes, myelocytes and metamyelocytes) > 1% indicates that a LEFT SHIFT is Present. Performed By: #### L 500.2500, M100.2200, L400.0001, L100.0100 #### [facility] [address] [place], [address] Lymphocytes/100 WBC (Bld) 30.2 % Normal 19-41 [facility] Comment on above: Order Comment: 517-2 Performed By: #### L 500.2500, M100.2200, L400.0001, L100.0100 #### [facility] [address] [place], [address] MCH (RBC) [Entitic mass] 25.7 pg Low 27.0-32.0 [facility] Comment on above: Order Comment: 517-2 Performed By: #### L 500.2500, M100.2200, L400.0001, L100.0100 #### [facility] [address] [place], [address] MCHC (RBC) [Mass/Vol] 30.8 g/dL Low 32-36 [facility] Comment on above: Order Comment: 517-2 Performed By: #### L 500.2500, M100.2200, L400.0001, L100.0100 #### [facility] [address] [place], [address] MCV (RBC) [Entitic vol] 83.4 fL Normal 81-99 [facility] Comment on above: Order Comment: 517-2 Performed By: #### L 500.2500, M100.2200, L400.0001, L100.0100 #### [facility] [address] [place], [address] Monocytes/100 WBC (Bld) 6.8 % Normal 0-10 [facility] Comment on above: Order Comment: 517-2 Performed By: #### L 500.2500, M100.2200, L400.0001, L100.0100 #### [facility] [address] [place], [address] Neutrophils/100 WBC (Bld) 59.6 % Normal 47-70 [facility] Comment on above: Order Comment: 517-2 Performed By: #### L 500.2500, M100.2200, L400.0001, L100.0100 #### [facility] [address] [place], [address] Nucleated RBC (Bld) [#/Vol] 0 10*3/uL Normal 0-5 [facility] Comment on above: Order Comment: 517-2 Performed By: #### L 500.2500, M100.2200, L400.0001, L100.0100 #### [facility] [address] [place], [address] Platelet mean volume (Bld) [Entitic vol] 9.2 fL Normal 6.2-12.0 [facility] Comment on above: Order Comment: 517-2 Performed By: #### L 500.2500, M100.2200, L400.0001, L100.0100 #### [facility] [address] [place], [address] Platelets (Bld) [#/Vol] 338 10*3/uL Normal 150-450 [facility] Comment on above: Order Comment: 517-2 Performed By: #### L 500.2500, M100.2200, L400.0001, L100.0100 #### [facility] [address] [place], [address] RBC (Bld) [#/Vol] 3.85 10*6/uL Low 4.2-5.4 [facility] Comment on above: Order Comment: 517-2 Performed By: #### L 500.2500, M100.2200, L400.0001, L100.0100 #### [facility] [address] [place], [address] RDW SD 48.8 fl High 35.1-43.9 [facility] Comment on above: Order Comment: 517-2 Performed By: #### L 500.2500, M100.2200, L400.0001, L100.0100 #### [facility] [address] [place], [address] WBC (Bld) [#/Vol] 9.5 10*3/uL Normal 4.4-11.0 [facility] Comment on above: Order Comment: 517-2 Performed By: #### L 500.2500, M100.2200, L400.0001, L100.0100 #### [facility] [address] [place], [address] Carbon dioxide measurementOr dered By: Kori Sethi on 07-14-2024 CO2 [Moles/Vol] 32.0 mmol/L 21.0-32.0 [facility] Chloride measurementOrdered By: Kori Sethi on 07-14-2024 Chloride [Moles/Vol] 102 mmol/L 98-107 [facility] Comprehensive Metabolic Prof ilon 07-14-2024 Albumin [Mass/Vol] 2.8 g/dL Low 3.2-5.0 [facility] Comment on above: Order Comment: 517-2 Performed By: #### L 500.2500, M100.2200, L400.0001, L100.0100 #### [facility] [address] [place], [address] Albumin/Globulin [Mass ratio] 0.6 {ratio} Low 0.9-2.4 [facility] Comment on above: Order Comment: 517-2 Performed By: #### L 500.2500, M100.2200, L400.0001, L100.0100 #### [facility] [address] [place], [address] ALK P 86 U/L Normal 45-117 [facility] Comment on above: Order Comment: 517-2 Performed By: #### L 500.2500, M100.2200, L400.0001, L100.0100 #### [facility] [address] [place], [address] ALT [Catalytic activity/Vol] 15 U/L Normal 13-56 [facility] Comment on above: Order Comment: 517-2 Performed By: #### L 500.2500, M100.2200, L400.0001, L100.0100 #### [facility] [address] [place], [address] AST [Catalytic activity/Vol] 8 U/L Low 15-37 [facility] Comment on above: Order Comment: 517-2 Performed By: #### L 500.2500, M100.2200, L400.0001, L100.0100 #### [facility] [address] [place], [address] Bilirubin [Mass/Vol] 0.20 mg/dL Normal 0.20-1.00 [facility] Comment on above: Order Comment: 517-2 Result Comment: For patients on eltrombopag therapy, use of Dimension Amanda TBIL is not recommended. Performed By: #### L 500.2500, M100.2200, L400.0001, L100.0100 #### [facility] [address] [place], [address] BUN/CRE 43.2 RATIO High 10-20 [facility] Comment on above: Order Comment: 517-2 Performed By: #### L 500.2500, M100.2200, L400.0001, L100.0100 #### [facility] [address] [place], [address] CA,Total 8.6 mg/dL Normal 8.5-10.1 [facility] Comment on above: Order Comment: 517-2 Performed By: #### L 500.2500, M100.2200, L400.0001, L100.0100 #### [facility] [address] [place], [address] Chloride [Moles/Vol] 102 mmol/L Normal 98-107 [facility] Comment on above: Order Comment: 517-2 Performed By: #### L 500.2500, M100.2200, L400.0001, L100.0100 #### [facility] [address] [place], [address] CO2 [Moles/Vol] 32.0 mmol/L Normal 21.0-32.0 [facility] Comment on above: Order Comment: 517-2 Performed By: #### L 500.2500, M100.2200, L400.0001, L100.0100 #### [facility] [address] [place], [address] Creatinine [Mass/Vol] 0.32 mg/dL Low 0.55-1.02 [facility] Comment on above: Order Comment: 517-2 Result Comment: The validity of the calculated GFR GFRAA in patients over 70 years has not been determined. Clinical correlation is essential. Performed By: #### L 500.2500, M100.2200, L400.0001, L100.0100 #### [facility] [address] [place], [address] EST GFR - AA 277 mL/min Normal >60 [facility] Comment on above: Order Comment: 517-2 Result Comment: Afri can Guamanian GFR Calc Performed By: #### L 500.2500, M100.2200, L400.0001, L100.0100 #### [facility] [facility] [address] [place], [address] GAP 4 Low 5-15 [facility] Comment on above: Order Comment: 517-2 Performed By: #### L 500.2500, M100.2200, L400.0001, L100.0100 #### [facility] [address] [place], [address] GFR/1.73 sq M.predicted among non-blacks MDRD (S/P/Bld) [Vol rate/Area] 229 mL/min/{1.73_m2} Normal >60 [facility] Comment on above: Order Comment: -2 Result Comment: Non- GFR Calc Performed By: #### L 500.2500, M100.2200, L400.0001, L100.0100 #### [facility] [address] [place], [address] Globulin (S) [Mass/Vol] 4.5 g/dL High 2.2-4.2 [facility] Comment on above: Order Comment: 517-2 Performed By: #### L 500.2500, M100.2200, L400.0001, L100.0100 #### [facility] [address] [place], [address] Glucose [Mass/Vol] 105 mg/dL Normal 74-106 [facility] Comment on above: Order Comment: 517-2 Result Comment: Fast ing Glucose result from 100 to 125 mg/dL suggests IMPAIRED HOMEOSTASIS per A.D.A. criteria. Performed By: #### L 500.2500, M100.2200, L400.0001, L100.0100 #### [facility] [address] [place], [address] Potassium [Moles/Vol] 3.8 mmol/L Normal 3.5-5.1 [facility] Comment on above: Order Comment: 517-2 Performed By: #### L 500.2500, M100.2200, L400.0001, L100.0100 #### [facility] [address] [place], [address] Sodium [Moles/Vol] 137 mmol/L Normal 136-145 [facility] Comment on above: Order Comment: 517-2 Performed By: #### L 500.2500, M100.2200, L400.0001, L100.0100 #### [facility] [address] [place], [address] T PROT 7.3 g/dL Normal 6.4-8.2 [facility] Comment on above: Order Comment: 517-2 Performed By: #### L 500.2500, M100.2200, L400.0001, L100.0100 #### [facility] [address] [place], [address] Urea nitrogen [Mass/Vol] 14 mg/dL Normal 7-18 [facility] Comment on above: Order Comment: 517-2 Performed By: #### L 500.2500, M100.2200, L400.0001, L100.0100 #### [facility] [address] [place], [address] Eosinophil percentageOrdered By: Kori Sethi on 07-14-2024 Eosinophils/100 WBC (Bld) 2.5 % 0-5 [facility] Erythrocyte distribution wid th (RBC) [Ratio]Ordered By: Kori Sethi on 07-14-2024 Erythrocyte distribution width (RBC) [Entitic vol] 48.8 fL High 35.1-43.9 [facility] Erythrocyte distribution wid th ratioOrdered By: Kori eSthi on 07-14-2024 Erythrocyte distribution width (RBC) [Ratio] 16.2 % High 11.6-14.6 [facility] Erythrocyte distribution wid th standard deviationOrdered By: Kori Sethi on 07-14-2024 Erythrocyte distribution width (RBC) [Ratio] 48.8 fl High 35.1-43.9 [facility] Estimated glomerular filtrat ion rate (GFR) AmericanOrdered By: Kori Sethi on 07-14-2024 Estimated GFR (MDRD) Amer 277 mL/min >60 [facility] Comment on above: GFR Calc Glomerular filtration rate ( GFR) estimationOrdered By: Kori Sethi on 07-14-2024 Estimated GFR (MDRD) Non-Af Amer 229 mL/min >60 [facility] Comment on above: Non- GFR Calc GFR/1.73 sq M.predicted among non-blacks MDRD (S/P/Bld) [Vol rate/Area] 229 mL/min/{1.73_m2} >60 [facility] Comment on above: Non- GFR Calc Glucose measurementOrdered B y: Kori Sethi on 07-14-2024 Glucose [Mass/Vol] 105 mg/dL 74-106 [facility] Comment on above: Fasting Glucose resu lt from 100 to 125 mg/dL suggests IMPAIRED HOMEOSTASIS per A.D.A. criteria. Hematocrit Auto (Bld) [Volum e fraction]Ordered By: Kori Sethi on 07-14-2024 Hematocrit (Bld) [Volume fraction] 32.1 % Low 37-47 [facility] Hemoglobin measurementOrdere d By: Kori Sethi on 07-14-2024 Hemoglobin (Bld) [Mass/Vol] 9.9 g/dL Low 12.0-15.0 [facility] Immature granulocytes/100 WB C Auto (Bld)Ordered By: Kori Sethi on 07-14-2024 Immature granulocytes/100 WBC (Bld) 0.400 % 0.0-0.9 [facility] Comment on above: IG% - Immature Granu locytes (promyelocytes, myelocytes and metamyelocytes) > 1% indicates that a LEFT SHIFT is Present. Laboratory - Chemistry and C hemistry - challengeOrdered By: Kori Sethi on 07-14-2024 AST [Catalytic activity/Vol] 8 U/L Low 15-37 [facility] Lymphocytes Auto (Unsp spec) [#/Vol]Ordered By: Kori Sethi on 07-14-2024 Lymphocytes (Bld) [#/Vol] 2.86 10*3/uL 0.83-4.51 [facility] Lymphocytes/100 WBC Auto (Un sp spec)Ordered By: Kori Sethi on 07-14-2024 Lymphocytes/100 WBC (Bld) 30.2 % 19-41 [facility] MCV (mean corpuscular volume ) determinationOrdered By: Kori Sethi on 07-14-2024 MCV (RBC) [Entitic vol] 83.4 fL 81-99 [facility] Mean corpuscular hemoglobin (MCH) determinationOrdered By: Kori Sethi on 07-14-2024 MCH (RBC) [Entitic mass] 25.7 pg Low 27.0-32.0 [facility] Mean corpuscular hemoglobin concentration (MCHC) determinationOrdered By: Kori Sethi on 07-14-2024 MCHC (RBC) [Mass/Vol] 30.8 g/dL Low 32-36 [facility] Mean platelet volume determi nationOrdered By: Kori Sethi on 07-14-2024 Platelet mean volume (Bld) [Entitic vol] 9.2 fL 6.2-12.0 [facility] Monocyte percentageOrdered B y: Kori Sethi on 07-14-2024 Monocytes/100 WBC (Bld) 6.8 % 0-10 [facility] Neutrophil percentageOrdered By: Kori Sethi on 07-14-2024 Neutrophils/100 WBC (Bld) 59.6 % 47-70 [facility] Nucleated red blood cell per centageOrdered By: Kori Sethi on 07-14-2024 Nucleated RBC/100 WBC (Bld) [Ratio] 0 % 0-5 [facility] Platelet countOrdered By: Edenilson Sethi on 07-14-2024 Platelets (Bld) [#/Vol] 338 10*3/uL 150-450 [facility] Potassium measurementOrdered By: Kori Sethi on 07-14-2024 Potassium [Moles/Vol] 3.8 mmol/L 3.5-5.1 [facility] RBC Auto (Bld) [#/Vol]Ordere d By: Kori Sethi on 07-14-2024 RBC (Bld) [#/Vol] 3.85 10*6/uL Low 4.2-5.4 [facility] Serum anion gap measurementO rdered By: Kori Sethi on 07-14-2024 Anion gap [Moles/Vol] 4 mmol/L Low 5-15 [facility] Serum globulin measurementOr dered By: Kori Sethi on 07-14-2024 Globulin (S) [Mass/Vol] 4.5 g/dL High 2.2-4.2 [facility] Serum or plasma alanine lyon otransferase (ALT) measurementOrdered By: Kori Sethi on 07-14-2024 ALT [Catalytic activity/Vol] 15 U/L 13-56 [facility] Serum or plasma albumin miguel angel urement (mass/volume)Ordered By: Kori Sethi on 07-14-2024 Albumin [Mass/Vol] 2.8 g/dL Low 3.2-5.0 [facility] Serum or plasma alkaline raghu sphatase measurementOrdered By: Kori Sethi on 07-14-2024 ALP [Catalytic activity/Vol] 86 U/L 45-117 [facility] Serum or plasma calcium miguel angel urement (mass/volume)Ordered By: Kori Sethi on 07-14-2024 Calcium [Mass/Vol] 8.6 mg/dL 8.5-10.1 [facility] Serum or plasma creatinine m easurement (mass/volume)Ordered By: Kori Sethi on 07-14-2024 Creatinine [Mass/Vol] 0.32 mg/dL Low 0.55-1.02 [facility] Comment on above: The validity of the calculated GFR & GFRAA in patients over 70 years has not been determined. Clinical correlation is essential. Serum or plasma urea nitroge n measurement (mass/volume)Ordered By: Kori Sethi on 07-14-2024 Urea nitrogen [Mass/Vol] 14 mg/dL 7-18 [facility] Sodium levelOrdered By: Bailey Sethi on 07-14-2024 Sodium [Moles/Vol] 137 mmol/L 136-145 [facility] Total proteinOrdered By: Shavonne Sethi on 07-14-2024 Protein [Mass/Vol] 7.3 g/dL 6.4-8.2 [facility] White blood cell (WBC) count Ordered By: Kori Sethi on 07-14-2024 WBC (Bld) [#/Vol] 9.5 10*3/uL 4.4-11.0 [facility] Urine Cultureon 07-09-2024 [facility] Providencia stuartii [place] Count >100,000 Escherichia coli Escherichia coli EFAC [place] Count >100,000 Enterococcus faecalis Ampicillin Islt SUNG Ampicillin+Sulbac Islt SUNG 8 S Cefepime Islt SUNG <=0.12 cefTRIAXone Islt SUNG <=0.25 S Ciprofloxacin Islt SUNG 0.25 S Gentamicin Islt SUNG 8 R levoFLOXacin Islt SUNG 1 I Meropenem Islt SUNG <=0.25 S Nitrofurantoin Islt SUNG 128 R Pip+Tazo Islt SUNG <=4 S TMP SMX Islt SUNG 40 S Escherichia coli: REACTION Ampicillin Islt SUNG <=2 S Ampicillin+Sulbac Islt SUNG <=2 S Cefepime Islt SUNG <=0.12 cefTRIAXone Islt SUNG <=0.25 S Ciprofloxacin Islt SUNG >=4 R B-Lactamase Extended Susc Islt NEG Gentamicin Islt SUNG <=1 S levoFLOXacin Islt SUNG >=8 R Meropenem Islt SUNG <=0.25 S Nitrofurantoin Islt SUNG <=16 S Pip+Tazo Islt SUNG <=4 S TMP SMX Islt SUNG >=320 R Enterococcus faecalis: REACTION Ampicillin Islt SUNG <=2 S Ciprofloxacin Islt SUNG >=8 R Gentamicin Synergy Susc Islt SYN-R levoFLOXacin Islt SUNG >=8 R Linezolid Islt SUNG 2 S Nitrofurantoin Islt SUNG <=16 S Streptomycin High Pot Susc Islt SYN-S S Tetracycline Islt SUNG >=16 R Vancomycin Islt SUNG 1 S Normal [facility] Comment on above: Performed By: #### L 500.2500, M100.2200, L400.0001, L100.0100 #### [facility] [place], [address] Absolute lymphocyte countOrd ered By: Kori Sethi on 07-07-2024 Lymphocytes Auto (Unsp spec) [#/Vol] 3.08 10*3/uL 0.83-4.51 [facility] Absolute neutrophil countOrd ered By: Kori Sethi on 07-07-2024 Neutrophils (Bld) [#/Vol] 5.3 10*3/uL 2.0-7.7 [facility] Albumin to globulin ratioOrd ered By: Kori Sethi on 07-07-2024 Albumin/Globulin [Mass ratio] 0.6 {ratio} Low 0.9-2.4 [facility] Automated lymphocyte count a s percentage of total leukocytesOrdered By: Kori Sethi on 07-07-2024 Lymphocytes/100 WBC Auto (Unsp spec) 32.7 % 19-41 [facility] Basophil percentageOrdered B y: Kori Sethi on 07-07-2024 Basophils/100 WBC (Bld) 0.5 % 0-1 [facility] Bilirubin, totalOrdered By: Kori Sethi on 07-07-2024 Bilirubin [Mass/Vol] 0.20 mg/dL 0.20-1.00 [facility] Comment on above: For patients on eltr ombopag therapy, use of Dimension Amanda TBIL is not recommended. Blood urea nitrogen (BUN)/cr eatinine ratioOrdered By: Kori Sethi on 07-07-2024 Urea nitrogen/Creatinine [Mass ratio] 52.6 mg/mg High 10-20 [facility] CBC W/Diff, Automatedon 06-15 Absolute Lymph 3.08 X10 3/uL Normal 0.83-4.51 [facility] Comment on above: Order Comment: 517-2 Performed By: #### L 500.4050, L503.0105, L506.1000, L100.0100, L500.4100, L501.9520 #### [facility] [address] [place], [address] Absolute Neut 5.3 X10 3/uL Normal 2.0-7.7 [facility] Comment on above: Order Comment: 517-2 Performed By: #### L 500.4050, L503.0105, L506.1000, L100.0100, L500.4100, L501.9520 #### [facility] [address] [place], [address] Basophils/100 WBC (Bld) 0.5 % Normal 0-1 [facility] Comment on above: Order Comment: 517-2 Performed By: #### L 500.4050, L503.0105, L506.1000, L100.0100, L500.4100, L501.9520 #### [facility] [address] [place], [address] Eosinophils/100 WBC (Bld) 0.9 % Normal 0-5 [facility] Comment on above: Order Comment: 517-2 Performed By: #### L 500.4050, L503.0105, L506.1000, L100.0100, L500.4100, L501.9520 #### [facility] [address] [place], [address] Erythrocyte distribution width (RBC) [Ratio] 15.7 % High 11.6-14.6 [facility] Comment on above: Order Comment: 517-2 Performed By: #### L 500.4050, L503.0105, L506.1000, L100.0100, L500.4100, L501.9520 #### [facility] [address] [place], [address] Hematocrit (Bld) [Volume fraction] 33.2 % Low 37-47 [facility] Comment on above: Order Comment: 517-2 Performed By: #### L 500.4050, L503.0105, L506.1000, L100.0100, L500.4100, L501.9520 #### [facility] [address] [place], [address] Hemoglobin (Bld) [Mass/Vol] 10.2 g/dL Low 12.0-15.0 [facility] Comment on above: Order Comment: 517-2 Performed By: #### L 500.4050, L503.0105, L506.1000, L100.0100, L500.4100, L501.9520 #### [facility] [address] [place], [address] IG% 0.300 Normal 0.0-0.9 [facility] Comment on above: Order Comment: 517-2 Result Comment: IG% - Immature Granulocytes (promyelocytes, myelocytes and metamyelocytes) > 1% indicates that a LEFT SHIFT is Present. Performed By: #### L 500.4050, L503.0105, L506.1000, L100.0100, L500.4100, L501.9520 #### [facility] [address] [place], [address] Lymphocytes/100 WBC (Bld) 32.7 % Normal 19-41 [facility] Comment on above: Order Comment: 517-2 Performed By: #### L 500.4050, L503.0105, L506.1000, L100.0100, L500.4100, L501.9520 #### [facility] [address] [place], [address] MCH (RBC) [Entitic mass] 25.5 pg Low 27.0-32.0 [facility] Comment on above: Order Comment: 517-2 Performed By: #### L 500.4050, L503.0105, L506.1000, L100.0100, L500.4100, L501.9520 #### [facility] [address] [place], [address] MCHC (RBC) [Mass/Vol] 30.7 g/dL Low 32-36 [facility] Comment on above: Order Comment: 517-2 Performed By: #### L 500.4050, L503.0105, L506.1000, L100.0100, L500.4100, L501.9520 #### [facility] [address] [place], [address] MCV (RBC) [Entitic vol] 83.0 fL Normal 81-99 [facility] Comment on above: Order Comment: 517-2 Performed By: #### L 500.4050, L503.0105, L506.1000, L100.0100, L500.4100, L501.9520 #### [facility] [address] [place], [address] Monocytes/100 WBC (Bld) 9.4 % Normal 0-10 [facility] Comment on above: Order Comment: 517-2 Performed By: #### L 500.4050, L503.0105, L506.1000, L100.0100, L500.4100, L501.9520 #### [facility] [address] [place], [address] Neutrophils/100 WBC (Bld) 56.2 % Normal 47-70 [facility] Comment on above: Order Comment: 517-2 Performed By: #### L 500.4050, L503.0105, L506.1000, L100.0100, L500.4100, L501.9520 #### [facility] [address] [place], [address] Nucleated RBC (Bld) [#/Vol] 0 10*3/uL Normal 0-5 [facility] Comment on above: Order Comment: 517-2 Performed By: #### L 500.4050, L503.0105, L506.1000, L100.0100, L500.4100, L501.9520 #### [facility] [address] [place], [address] Platelet mean volume (Bld) [Entitic vol] 9.5 fL Normal 6.2-12.0 [facility] Comment on above: Order Comment: 517-2 Performed By: #### L 500.4050, L503.0105, L506.1000, L100.0100, L500.4100, L501.9520 #### [facility] [address] [place], [address] Platelets (Bld) [#/Vol] 359 10*3/uL Normal 150-450 [facility] Comment on above: Order Comment: 517-2 Performed By: #### L 500.4050, L503.0105, L506.1000, L100.0100, L500.4100, L501.9520 #### [facility] [address] [place], [address] RBC (Bld) [#/Vol] 4.00 10*6/uL Low 4.2-5.4 [facility] Comment on above: Order Comment: 517-2 Performed By: #### L 500.4050, L503.0105, L506.1000, L100.0100, L500.4100, L501.9520 #### [facility] [address] [place], [address] RDW SD 47.6 fl High 35.1-43.9 [facility] Comment on above: Order Comment: 517-2 Performed By: #### L 500.4050, L503.0105, L506.1000, L100.0100, L500.4100, L501.9520 #### [facility] [address] [place], [address] WBC (Bld) [#/Vol] 9.4 10*3/uL Normal 4.4-11.0 [facility] Comment on above: Order Comment: 517-2 Performed By: #### L 500.4050, L503.0105, L506.1000, L100.0100, L500.4100, L501.9520 #### [facility] [address] [place], [address] Carbon dioxide measurementOr dered By: Kori Sethi on 07-07-2024 CO2 [Moles/Vol] 32.0 mmol/L 21.0-32.0 [facility] Chloride measurementOrdered By: Kori Sethi on 07-07-2024 Chloride [Moles/Vol] 101 mmol/L 98-107 [facility] Comprehensive Metabolic Prof ilon 07-07-2024 Albumin [Mass/Vol] 3.0 g/dL Low 3.2-5.0 [facility] Comment on above: Order Comment: 517-2 Performed By: #### L 500.4050, L503.0105, L506.1000, L100.0100, L500.4100, L501.9520 #### [facility] [address] [place], [address] Albumin/Globulin [Mass ratio] 0.6 {ratio} Low 0.9-2.4 [facility] Comment on above: Order Comment: 517-2 Performed By: #### L 500.4050, L503.0105, L506.1000, L100.0100, L500.4100, L501.9520 #### [facility] [address] [place], [address] ALK P 86 U/L Normal 45-117 [facility] Comment on above: Order Comment: 517-2 Performed By: #### L 500.4050, L503.0105, L506.1000, L100.0100, L500.4100, L501.9520 #### [facility] [address] [place], [address] ALT [Catalytic activity/Vol] 15 U/L Normal 13-56 [facility] Comment on above: Order Comment: 517-2 Performed By: #### L 500.4050, L503.0105, L506.1000, L100.0100, L500.4100, L501.9520 #### [facility] [address] [place], [address] AST [Catalytic activity/Vol] 10 U/L Low 15-37 [facility] Comment on above: Order Comment: 517-2 Performed By: #### L 500.4050, L503.0105, L506.1000, L100.0100, L500.4100, L501.9520 #### [facility] [address] [place], [address] Bilirubin [Mass/Vol] 0.20 mg/dL Normal 0.20-1.00 [facility] Comment on above: Order Comment: 517-2 Result Comment: For patients on eltrombopag therapy, use of Dimension Amanda TBIL is not recommended. Performed By: #### L 500.4050, L503.0105, L506.1000, L100.0100, L500.4100, L501.9520 #### [facility] [address] [place], [address] BUN/CRE 52.6 RATIO High 10-20 [facility] Comment on above: Order Comment: 517-2 Performed By: #### L 500.4050, L503.0105, L506.1000, L100.0100, L500.4100, L501.9520 #### [facility] [address] [place], [address] CA,Total 9.0 mg/dL Normal 8.5-10.1 [facility] Comment on above: Order Comment: 517-2 Performed By: #### L 500.4050, L503.0105, L506.1000, L100.0100, L500.4100, L501.9520 #### [facility] [address] [place], [address] Chloride [Moles/Vol] 101 mmol/L Normal 98-107 [facility] Comment on above: Order Comment: 517-2 Performed By: #### L 500.4050, L503.0105, L506.1000, L100.0100, L500.4100, L501.9520 #### [facility] [address] [place], [address] CO2 [Moles/Vol] 32.0 mmol/L Normal 21.0-32.0 [facility] Comment on above: Order Comment: -2 Performed By: #### L 500.4050, L503.0105, L506.1000, L100.0100, L500.4100, L501.9520 #### [facility] [address] [place], [address] Creatinine [Mass/Vol] 0.34 mg/dL Low 0.55-1.02 [facility] Comment on above: Order Comment: -2 Result Comment: The validity of the calculated GFR GFRAA in patients over 70 years has not been determined. Clinical correlation is essential. Performed By: #### L 500.4050, L503.0105, L506.1000, L100.0100, L500.4100, L501.9520 #### [facility] [address] [place], [address] EST GFR - AA 260 mL/min Normal >60 [facility] Comment on above: Order Comment: -2 Result Comment: Afri can Guamanian GFR Calc Performed By: #### L 500.4050, L503.0105, L506.1000, L100.0100, L500.4100, L501.9520 #### [facility] [address] [place], [address] GAP 5 Normal 5-15 [facility] Comment on above: Order Comment: 517-2 Performed By: #### L 500.4050, L503.0105, L506.1000, L100.0100, L500.4100, L501.9520 #### [facility] [address] [place], [address] GFR/1.73 sq M.predicted among non-blacks MDRD (S/P/Bld) [Vol rate/Area] 215 mL/min/{1.73_m2} Normal >60 [facility] Comment on above: Order Comment: 517-2 Result Comment: Non- GFR Calc Performed By: #### L 500.4050, L503.0105, L506.1000, L100.0100, L500.4100, L501.9520 #### [facility] [address] [place], [address] Globulin (S) [Mass/Vol] 4.8 g/dL High 2.2-4.2 [facility] Comment on above: Order Comment: 517-2 Performed By: #### L 500.4050, L503.0105, L506.1000, L100.0100, L500.4100, L501.9520 #### [facility] [address] [place], [address] Glucose [Mass/Vol] 102 mg/dL Normal 74-106 [facility] Comment on above: Order Comment: 517-2 Result Comment: Fast ing Glucose result from 100 to 125 mg/dL suggests IMPAIRED HOMEOSTASIS per A.D.A. criteria. Performed By: #### L 500.4050, L503.0105, L506.1000, L100.0100, L500.4100, L501.9520 #### [facility] [address] [place], [address] Potassium [Moles/Vol] 4.0 mmol/L Normal 3.5-5.1 [facility] Comment on above: Order Comment: 517-2 Performed By: #### L 500.4050, L503.0105, L506.1000, L100.0100, L500.4100, L501.9520 #### [facility] [address] [place], [address] Sodium [Moles/Vol] 138 mmol/L Normal 136-145 [facility] Comment on above: Order Comment: 517-2 Performed By: #### L 500.4050, L503.0105, L506.1000, L100.0100, L500.4100, L501.9520 #### [facility] [address] [place], [place], [id number] T PROT 7.8 g/dL Normal 6.4-8.2 [facility] Comment on above: Order Comment: 517-2 Performed By: #### L 500.4050, L503.0105, L506.1000, L100.0100, L500.4100, L501.9520 #### [facility] [address] [place], [address] Urea nitrogen [Mass/Vol] 18 mg/dL Normal 7-18 [facility] Comment on above: Order Comment: 517-2 Performed By: #### L 500.4050, L503.0105, L506.1000, L100.0100, L500.4100, L501.9520 #### [facility] [address] [place], [place], [id number] Eosinophil percentageOrdered By: Kori Sethi on 07-07-2024 Eosinophils/100 WBC (Bld) 0.9 % 0-5 [facility] Erythrocyte distribution wid th (RBC) [Ratio]Ordered By: Kori Sethi on 07-07-2024 Erythrocyte distribution width (RBC) [Entitic vol] 47.6 fL High 35.1-43.9 [facility] Erythrocyte distribution wid th ratioOrdered By: Kori Sethi on 07-07-2024 Erythrocyte distribution width (RBC) [Ratio] 15.7 % High 11.6-14.6 [facility] Erythrocyte distribution wid th standard deviationOrdered By: Kori Sethi on 07-07-2024 Erythrocyte distribution width (RBC) [Ratio] 47.6 fl High 35.1-43.9 [facility] Estimated glomerular filtrat ion rate (GFR) AmericanOrdered By: Kori Sethi on 07-07-2024 Estimated GFR (MDRD) Amer 260 mL/min >60 [facility] Comment on above: GFR Calc Glomerular filtration rate ( GFR) estimationOrdered By: Kori Sethi on 07-07-2024 Estimated GFR (MDRD) Non-Af Amer 215 mL/min >60 [facility] Comment on above: Non- GFR Calc GFR/1.73 sq M.predicted among non-blacks MDRD (S/P/Bld) [Vol rate/Area] 215 mL/min/{1.73_m2} >60 [facility] Comment on above: Non- GFR Calc Glucose measurementOrdered B y: Kori Sethi on 07-07-2024 Glucose [Mass/Vol] 102 mg/dL 74-106 [facility] Comment on above: Fasting Glucose resu lt from 100 to 125 mg/dL suggests IMPAIRED HOMEOSTASIS per A.D.A. criteria. Hematocrit Auto (Bld) [Volum e fraction]Ordered By: Kori Sethi on 07-07-2024 Hematocrit (Bld) [Volume fraction] 33.2 % Low 37-47 [facility] Hemoglobin measurementOrdere d By: Kori Sethi on 07-07-2024 Hemoglobin (Bld) [Mass/Vol] 10.2 g/dL Low 12.0-15.0 [facility] Immature granulocytes/100 WB C Auto (Bld)Ordered By: Kroi Sethi on 07-07-2024 Immature granulocytes/100 WBC (Bld) 0.300 % 0.0-0.9 [facility] Comment on above: IG% - Immature Granu locytes (promyelocytes, myelocytes and metamyelocytes) > 1% indicates that a LEFT SHIFT is Present. Laboratory - Chemistry and C hemistry - challengeOrdered By: Kori Sethi on 07-07-2024 AST [Catalytic activity/Vol] 10 U/L Low 15-37 [facility] Lymphocytes Auto (Unsp spec) [#/Vol]Ordered By: Kori Sethi on 07-07-2024 Lymphocytes (Bld) [#/Vol] 3.08 10*3/uL 0.83-4.51 [facility] Lymphocytes/100 WBC Auto (Un sp spec)Ordered By: Kori Sethi on 07-07-2024 Lymphocytes/100 WBC (Bld) 32.7 % 19-41 [facility] MCV (mean corpuscular volume ) determinationOrdered By: Kori Sethi on 07-07-2024 MCV (RBC) [Entitic vol] 83.0 fL 81-99 [facility] Mean corpuscular hemoglobin (MCH) determinationOrdered By: Kori Sethi on 07-07-2024 MCH (RBC) [Entitic mass] 25.5 pg Low 27.0-32.0 [facility] Mean corpuscular hemoglobin concentration (MCHC) determinationOrdered By: Kori Sethi on 07-07-2024 MCHC (RBC) [Mass/Vol] 30.7 g/dL Low 32-36 [facility] Mean platelet volume determi nationOrdered By: Kori Sethi on 07-07-2024 Platelet mean volume (Bld) [Entitic vol] 9.5 fL 6.2-12.0 [facility] Monocyte percentageOrdered B y: Kori Sethi on 07-07-2024 Monocytes/100 WBC (Bld) 9.4 % 0-10 [facility] Neutrophil percentageOrdered By: Kori Sethi on 07-07-2024 Neutrophils/100 WBC (Bld) 56.2 % 47-70 [facility] Nucleated red blood cell per centageOrdered By: Kori Sethi on 07-07-2024 Nucleated RBC/100 WBC (Bld) [Ratio] 0 % 0-5 [facility] Platelet countOrdered By: Edenilson Sethi on 07-07-2024 Platelets (Bld) [#/Vol] 359 10*3/uL 150-450 [facility] Potassium measurementOrdered By: Kori Sethi on 07-07-2024 Potassium [Moles/Vol] 4.0 mmol/L 3.5-5.1 [facility] RBC Auto (Bld) [#/Vol]Ordere d By: Kori Sethi on 07-07-2024 RBC (Bld) [#/Vol] 4.00 10*6/uL Low 4.2-5.4 [facility] Serum anion gap measurementO rdered By: Kori Sethi on 07-07-2024 Anion gap [Moles/Vol] 5 mmol/L 5-15 [facility] Serum globulin measurementOr dered By: Kori Sethi on 07-07-2024 Globulin (S) [Mass/Vol] 4.8 g/dL High 2.2-4.2 [facility] Serum or plasma alanine lyon otransferase (ALT) measurementOrdered By: Kori Sethi on 07-07-2024 ALT [Catalytic activity/Vol] 15 U/L 13-56 [facility] Serum or plasma albumin miguel angel urement (mass/volume)Ordered By: Kori Sethi on 07-07-2024 Albumin [Mass/Vol] 3.0 g/dL Low 3.2-5.0 [facility] Serum or plasma alkaline raghu sphatase measurementOrdered By: Kori Sethi on 07-07-2024 ALP [Catalytic activity/Vol] 86 U/L 45-117 [facility] Serum or plasma calcium miguel angel urement (mass/volume)Ordered By: Kori Sethi on 07-07-2024 Calcium [Mass/Vol] 9.0 mg/dL 8.5-10.1 [facility] Serum or plasma creatinine m easurement (mass/volume)Ordered By: Kori Sethi on 07-07-2024 Creatinine [Mass/Vol] 0.34 mg/dL Low 0.55-1.02 [facility] Comment on above: The validity of the calculated GFR & GFRAA in patients over 70 years has not been determined. Clinical correlation is essential. Serum or plasma urea nitroge n measurement (mass/volume)Ordered By: Kori Sethi on 07-07-2024 Urea nitrogen [Mass/Vol] 18 mg/dL 7-18 [facility] Sodium levelOrdered By: Nanciejfjoel Sethi on 07-07-2024 Sodium [Moles/Vol] 138 mmol/L 136-145 [facility] Total proteinOrdered By: Shavonne Appiahnatividadhayes on 07-07-2024 Protein [Mass/Vol] 7.8 g/dL 6.4-8.2 [facility] White blood cell (WBC) count Ordered By: Koriojnathan Sethi on 07-07-2024 WBC (Bld) [#/Vol] 9.4 10*3/uL 4.4-11.0 [facility] Urinalysis, Completeon 07-06 BACTERIA 1+ /hpf Normal None Seen [facility] Comment on above: Order Comment: NORMA TER SPECIMEN Performed By: #### L 500.2500, M100.2200, L400.0001, L100.0100 #### [facility] [address] [place], [address] CA OX CRYSTAL 2+ /hpf Normal [facility] Comment on above: Order Comment: NORMA TER SPECIMEN Performed By: #### L 500.2500, M100.2200, L400.0001, L100.0100 #### [facility] [address] [place], [address] RBC 0-5 SEEN Normal 0-5 [facility] Comment on above: Order Comment: NORMA TER SPECIMEN Performed By: #### L 500.2500, M100.2200, L400.0001, L100.0100 #### [facility] [address] [place], [address] TRIPLE PHOS 1+ /hpf Normal [facility] Comment on above: Order Comment: NORMA TER SPECIMEN Performed By: #### L 500.2500, M100.2200, L400.0001, L100.0100 #### [facility] [address] [place], [address] WBC 25-50 SEEN Normal 0-5 [facility] Comment on above: Order Comment: NORMA TER SPECIMEN Performed By: #### L 500.2500, M100.2200, L400.0001, L100.0100 #### [facility] [address] [place], [address] EPI,SQUAMOUS 0 SEEN Normal 5-10 [facility] Comment on above: Order Comment: NORMA TER SPECIMEN Performed By: #### L 500.2500, M100.2200, L400.0001, L100.0100 #### [facility] [address] [place], [address] Mucus Ql (Urine sed) 0 SEEN Normal [facility] Comment on above: Order Comment: NORMA TER SPECIMEN Performed By: #### L 500.2500, M100.2200, L400.0001, L100.0100 #### [facility] [address] [place], [address] Bilirubin Test strip Ql (U)O rdered By: Kori Sethi on 07-05-2024 Bilirubin Ql (U) Negative Negative [facility] Calcium oxalate crystals LM Ql (Urine sed)Ordered By: Kori Sethi on 07-05-2024 Urine Calcium Oxalate Crystals 2+ /hpf [facility] Calcium oxalate crystals det ection in urine sediment by light microscopyOrdered By: Kori Sethi on 07-05-2024 Calcium oxalate crystals LM Ql (Urine sed) 2+ /hpf [facility] Epithelial cells.squamous LM Ql (Urine sed)Ordered By: Kori Sethi on 07-05-2024 Epithelial cells.squamous LM.HPF (Urine sed) [#/Area] 0 /[HPF] 5-10 [facility] Glucose Ql (U)Ordered By: Edenilson Sethi on 07-05-2024 Urine Glucose (UA) Normal mg/dl Normal [facility] Ketones Test strip Ql (U)Ord ered By: Kori Sethi on 07-05-2024 Ketones Ql (U) 5 mg/dl High Negative [facility] Microscopic analysis of urin e for red blood cells (RBC)Ordered By: Kori Sethi on 07-05-2024 Microscopic analysis of urine for red blood cells (RBC) 0-5 SEEN /hpf 0-5 [facility] Urine RBC 0-5 SEEN /hpf 0-5 [facility] Mucus LM Ql (Urine sed)Order ed By: Kori Sethi on 07-05-2024 Mucus Ql (Urine sed) 0 SEEN /hpf [facility] Nitrite Test strip Ql (U)Ord ered By: Kori Sethi on 07-05-2024 Nitrite Ql (U) Positive High Negative [facility] Protein Test strip Ql (U)Ord ered By: Kori Sethi on 07-05-2024 Protein Ql (U) 30 mg/dl High Negative [facility] Squamous epithelial cells de tection in urine sediment by light microscopyOrdered By: Kori Sethi on 07-05-2024 Epithelial cells.squamous LM Ql (Urine sed) 0 SEEN /hpf 5-10 [facility] Triple phosphate crystals LM Ql (Urine sed)Ordered By: Kori Sethi on 07-05-2024 Urine Triple Phosphate Crystals 1+ /hpf [facility] Triple phosphate crystals de tection in urine sediment by light microscopyOrdered By: Kori Sethi on 07-05-2024 Triple phosphate crystals LM Ql (Urine sed) 1+ /hpf [facility] Urine blood detectionOrdered By: Kori Sethi on 07-05-2024 Urine Occult Blood 250 /ul High Negative [facility] Urine clarityOrdered By: Shavonne Sethi on 07-05-2024 Clarity (U) Sl. Cloudy Clear [facility] Urine color determinationOrd ered By: Kori Sethi on 07-05-2024 Color (U) Yellow Yellow [facility] Urine cultureOrdered By: Shavonne Sethi on 07-05-2024 Bacteria identified Cx Nom (U) Providencia stuartii Abnormal [facility] Bacteria identified Cx Nom (U) Escherichia coli Abnormal [facility] Bacteria identified Cx Nom (U) Enterococcus faecalis Abnormal [facility] Urine glucose detectionOrder ed By: Kori Sethi on 07-05-2024 Glucose Ql (U) Normal mg/dl Normal [facility] Urine leukocyte esterase det ection by dipstickOrdered By: Kori Sethi on 07-05-2024 Leukocyte esterase Test strip Ql (U) 500 /ul High Negative [facility] Urine pHOrdered By: Kori finnegan on 07-05-2024 pH (U) 7.0 [pH] 5.0 - 8.0 [facility] Urine sediment bacteria coun t by microscopy (number/high power field)Ordered By: Kori Sethi on 07-05-2024 Bacteria LM.HPF (Urine sed) [#/Area] 1 /[HPF] None Seen [facility] Urine specific gravity measu rementOrdered By: Kori Sethi on 07-05-2024 Specific gravity (U) [Rel density] 1.010 1.002-1.030 [facility] Urine urobilinogen measureme ntOrdered By: Kori Sethi on 07-05-2024 Urobilinogen Ql (U) Normal mg/dl Normal [facility] Urobilinogen Ql (U)Ordered B y: Kori Sethi on 07-05-2024 Urine Urobilinogen Normal mg/dl Normal [facility] White blood cell countOrdere d By: Kori Sethi on 07-05-2024 Urine WBC 25-50 SEEN /hpf 0-5 [facility] White blood cell count 25-50 SEEN /hpf 0-5 [facility] Urine Cultureon 07-04-2024 URC Mixed Gram Pos Gram Neg Org [place] Count 80,000-100,000 [facility] Mixed contaminants. Submit a new specimen if indicated. Normal [facility] Comment on above: Performed By: #### L 500.2500, M100.2200, L400.0001, L100.0100 #### [facility] [address] [place], [address] Absolute lymphocyte countOrd ered By: Kori Sethi on 07-03-2024 Lymphocytes Auto (Unsp spec) [#/Vol] 2.57 10*3/uL 0.83-4.51 [facility] Absolute neutrophil countOrd ered By: Kori Sethi on 07-03-2024 Neutrophils (Bld) [#/Vol] 3.5 10*3/uL 2.0-7.7 [facility] Amorphous sediment detection in urine sediment by light microscopyOrdered By: Kori Sethi on 07-03-2024 Amorphous sediment LM Ql (Urine sed) 2+ [facility] Automated lymphocyte count a s percentage of total leukocytesOrdered By: Kori Sethi on 07-03-2024 Lymphocytes/100 WBC Auto (Unsp spec) 36.8 % - [facility] Basic Metabolic Profile (BMP )on 07-03-2024 BUN/CRE 40.3 RATIO High 10- [facility] Comment on above: Performed By: #### L 500.2500, M100.2200, L400.0001, L100.0100 #### [facility] [address] [place], [address] CA,Total 9.0 mg/dL Normal 8.5-10.1 [facility] Comment on above: Performed By: #### L 500.2500, M100.2200, L400.0001, L100.0100 #### [facility] [address] [place], [address] Chloride [Moles/Vol] 100 mmol/L Normal 98-107 [facility] Comment on above: Performed By: #### L 500.2500, M100.2200, L400.0001, L100.0100 #### [facility] [address] [place], [address] CO2 [Moles/Vol] 34.0 mmol/L High 21.0-32.0 [facility] Comment on above: Performed By: #### L 500.2500, M100.2200, L400.0001, L100.0100 #### [facility] [address] [place], [address] Creatinine [Mass/Vol] 0.30 mg/dL Low 0.55-1.02 [facility] Comment on above: Result Comment: The validity of the calculated GFR GFRAA in patients over 70 years has not been determined. Clinical correlation is essential. Performed By: #### L 500.2500, M100.2200, L400.0001, L100.0100 #### [facility] [address] [place], [address] EST GFR - AA 305 mL/min Normal >60 [facility] Comment on above: Result Comment: Afri can Guamanian GFR Calc Performed By: #### L 500.2500, M100.2200, L400.0001, L100.0100 #### [facility] [address] [place], [address] GAP 4 Low 5-15 [facility] Comment on above: Performed By: #### L 500.2500, M100.2200, L400.0001, L100.0100 #### [facility] [address] [place], [address] GFR/1.73 sq M.predicted among non-blacks MDRD (S/P/Bld) [Vol rate/Area] 252 mL/min/{1.73_m2} Normal >60 [facility] Comment on above: Result Comment: Non- GFR Calc Performed By: #### L 500.2500, M100.2200, L400.0001, L100.0100 #### [facility] [address] [place], [address] Glucose [Mass/Vol] 105 mg/dL Normal 74-106 [facility] Comment on above: Result Comment: Fast ing Glucose result from 100 to 125 mg/dL suggests IMPAIRED HOMEOSTASIS per A.D.A. criteria. Performed By: #### L 500.2500, M100.2200, L400.0001, L100.0100 #### [facility] [address] [place], [address] Potassium [Moles/Vol] 3.8 mmol/L Normal 3.5-5.1 [facility] Comment on above: Performed By: #### L 500.2500, M100.2200, L400.0001, L100.0100 #### [facility] [address] [place], [address] Sodium [Moles/Vol] 138 mmol/L Normal 136-145 [facility] Comment on above: Performed By: #### L 500.2500, M100.2200, L400.0001, L100.0100 #### [facility] [address] [place], [address] Urea nitrogen [Mass/Vol] 12 mg/dL Normal 7-18 [facility] Comment on above: Performed By: #### L 500.2500, M100.2200, L400.0001, L100.0100 #### [facility] [address] [place], [address] Basophil percentageOrdered B y: Kori Sethi on 07-03-2024 Basophils/100 WBC (Bld) 0.6 % 0-1 [facility] Bilirubin Test strip Ql (U)O rdered By: Kori Sethi on 07-03-2024 Bilirubin Ql (U) Negative Negative [facility] Blood urea nitrogen (BUN)/cr eatinine ratioOrdered By: Kori Sethi on 07-03-2024 Urea nitrogen/Creatinine [Mass ratio] 40.3 mg/mg High 10-20 [facility] CBC W/Diff, Automatedon 06-15 Absolute Lymph 2.57 X10 3/uL Normal 0.83-4.51 [facility] Comment on above: Performed By: #### L 500.2500, M100.2200, L400.0001, L100.0100 #### [facility] [address] [place], [address] Absolute Neut 3.5 X10 3/uL Normal 2.0-7.7 [facility] Comment on above: Performed By: #### L 500.2500, M100.2200, L400.0001, L100.0100 #### [facility] [address] [place], [address] Basophils/100 WBC (Bld) 0.6 % Normal 0-1 [facility] Comment on above: Performed By: #### L 500.2500, M100.2200, L400.0001, L100.0100 #### [facility] [address] [place], [address] Eosinophils/100 WBC (Bld) 3.9 % Normal 0-5 [facility] Comment on above: Performed By: #### L 500.2500, M100.2200, L400.0001, L100.0100 #### [facility] [address] [place], [address] Erythrocyte distribution width (RBC) [Ratio] 15.4 % High 11.6-14.6 [facility] Comment on above: Performed By: #### L 500.2500, M100.2200, L400.0001, L100.0100 #### [facility] [address] [place], [address] Hematocrit (Bld) [Volume fraction] 33.1 % Low 37-47 [facility] Comment on above: Performed By: #### L 500.2500, M100.2200, L400.0001, L100.0100 #### [facility] [address] [place], [address] Hemoglobin (Bld) [Mass/Vol] 10.1 g/dL Low 12.0-15.0 [facility] Comment on above: Performed By: #### L 500.2500, M100.2200, L400.0001, L100.0100 #### [facility] [address] [place], [address] IG% 0.300 Normal 0.0-0.9 [facility] Comment on above: Result Comment: IG% - Immature Granulocytes (promyelocytes, myelocytes and metamyelocytes) > 1% indicates that a LEFT SHIFT is Present. Performed By: #### L 500.2500, M100.2200, L400.0001, L100.0100 #### [facility] [address] [place], [address] Lymphocytes/100 WBC (Bld) 36.8 % Normal 19-41 [facility] Comment on above: Performed By: #### L 500.2500, M100.2200, L400.0001, L100.0100 #### [facility] [address] [place], [address] MCH (RBC) [Entitic mass] 25.6 pg Low 27.0-32.0 [facility] Comment on above: Performed By: #### L 500.2500, M100.2200, L400.0001, L100.0100 #### [facility] [address] [place], [address] MCHC (RBC) [Mass/Vol] 30.5 g/dL Low 32-36 [facility] Comment on above: Performed By: #### L 500.2500, M100.2200, L400.0001, L100.0100 #### [facility] [address] [place], [address] MCV (RBC) [Entitic vol] 83.8 fL Normal 81-99 [facility] Comment on above: Performed By: #### L 500.2500, M100.2200, L400.0001, L100.0100 #### [facility] [address] [place], [address] Monocytes/100 WBC (Bld) 8.0 % Normal 0-10 [facility] Comment on above: Performed By: #### L 500.2500, M100.2200, L400.0001, L100.0100 #### [facility] [address] [place], [address] Neutrophils/100 WBC (Bld) 50.4 % Normal 47-70 [facility] Comment on above: Performed By: #### L 500.2500, M100.2200, L400.0001, L100.0100 #### [facility] [address] [place], [address] Nucleated RBC (Bld) [#/Vol] 0 10*3/uL Normal 0-5 [facility] Comment on above: Performed By: #### L 500.2500, M100.2200, L400.0001, L100.0100 #### [facility] [address] [place], [address] Platelet mean volume (Bld) [Entitic vol] 9.6 fL Normal 6.2-12.0 [facility] Comment on above: Performed By: #### L 500.2500, M100.2200, L400.0001, L100.0100 #### [facility] [address] [place], [address] Platelets (Bld) [#/Vol] 312 10*3/uL Normal 150-450 [facility] Comment on above: Performed By: #### L 500.2500, M100.2200, L400.0001, L100.0100 #### [facility] [address] [place], [address] RBC (Bld) [#/Vol] 3.95 10*6/uL Low 4.2-5.4 [facility] Comment on above: Performed By: #### L 500.2500, M100.2200, L400.0001, L100.0100 #### [facility] [address] [place], [address] RDW SD 47.0 fl High 35.1-43.9 [facility] Comment on above: Performed By: #### L 500.2500, M100.2200, L400.0001, L100.0100 #### [facility] [address] [place], [address] WBC (Bld) [#/Vol] 7.0 10*3/uL Normal 4.4-11.0 [facility] Comment on above: Performed By: #### L 500.2500, M100.2200, L400.0001, L100.0100 #### [facility] [address] [place], [address] Carbon dioxide measurementOr dered By: Kori Sethi on 07-03-2024 CO2 [Moles/Vol] 34.0 mmol/L High 21.0-32.0 [facility] Chloride measurementOrdered By: Korijonathan Sethi on 07-03-2024 Chloride [Moles/Vol] 100 mmol/L 98-107 [facility] Eosinophil percentageOrdered By: Kori Sethi on 07-03-2024 Eosinophils/100 WBC (Bld) 3.9 % 0-5 [facility] Epithelial cells.squamous LM Ql (Urine sed)Ordered By: Kori Sethi on 07-03-2024 Epithelial cells.squamous LM.HPF (Urine sed) [#/Area] 0 /[HPF] 5-10 [facility] Erythrocyte distribution wid th (RBC) [Ratio]Ordered By: Kori Sethi on 07-03-2024 Erythrocyte distribution width (RBC) [Entitic vol] 47.0 fL High 35.1-43.9 [facility] Erythrocyte distribution wid th ratioOrdered By: Kori Sethi on 07-03-2024 Erythrocyte distribution width (RBC) [Ratio] 15.4 % High 11.6-14.6 [facility] Erythrocyte distribution wid th standard deviationOrdered By: Korijonathan Sethi on 07-03-2024 Erythrocyte distribution width (RBC) [Ratio] 47.0 fl High 35.1-43.9 [facility] Estimated glomerular filtrat ion rate (GFR) AmericanOrdered By: Kori Sethi on 07-03-2024 Estimated GFR (MDRD) Amer 305 mL/min >60 [facility] Comment on above: GFR Calc Fluor Guidance for Spine Inj on 07-03-2024 Fluor Guidance for Spine Inj [facility] Imaging Services [address] [place], [place] [address] Fluor Guidance for Spine Inj MR#: [id number] Acct: [id number] Name: HENRIK REED Rep #: [id number] : 1975 F 49 From: Roosevelt wall MD PCP: Dr. Lavon Vicente MD Status: [facility] Study: Fluor Guidance for Spine Inj Date of Exam: Exam# [id number] Ordering Dr: [place] [id number] PROCEDURE: Caudal block. DATE OF EXAMINATION: July 03, 2024 INDICATION: Female, 49 years old. Chronic low-back pain FLUOROSCOPY TIME (if supplied): (5.1 second) minutes/seconds. 4.37 mGy. One image was provided. RAD/Fluor Guidance for Spine Inj IMPRESSION: Intraoperative imaging provided for caudal block. Electronically Signed: Roosevelt Galvez MD at 15:10 EST Reading Location ID and State: [address] [place] [address] , Service support , CC: Dr. Kenia Hammond MD; Dr. Lavon Vicente MD Floor Assembler: Signed Normal [facility] Glomerular filtration rate ( GFR) estimationOrdered By: Kori Sethi on 07-03-2024 Estimated GFR (MDRD) Non-Af Amer 252 mL/min >60 [facility] Comment on above: Non- GFR Calc GFR/1.73 sq M.predicted among non-blacks MDRD (S/P/Bld) [Vol rate/Area] 252 mL/min/{1.73_m2} >60 [facility] Comment on above: Non- GFR Calc Glucose Ql (U)Ordered By: Edenilson Sethi on 07-03-2024 Urine Glucose (UA) Normal mg/dl Normal [facility] Glucose measurementOrdered B y: Kori Sethi on 07-03-2024 Glucose [Mass/Vol] 105 mg/dL 74-106 [facility] Comment on above: Fasting Glucose resu lt from 100 to 125 mg/dL suggests IMPAIRED HOMEOSTASIS per A.D.A. criteria. Hematocrit Auto (Bld) [Volum e fraction]Ordered By: Kori Sethi on 07-03-2024 Hematocrit (Bld) [Volume fraction] 33.1 % Low 37-47 [facility] Hemoglobin measurementOrdere d By: Kori Sethi on 07-03-2024 Hemoglobin (Bld) [Mass/Vol] 10.1 g/dL Low 12.0-15.0 [facility] Immature granulocytes/100 WB C Auto (Bld)Ordered By: Kori Sethi on 07-03-2024 Immature granulocytes/100 WBC (Bld) 0.300 % 0.0-0.9 [facility] Comment on above: IG% - Immature Granu locytes (promyelocytes, myelocytes and metamyelocytes) > 1% indicates that a LEFT SHIFT is Present. Ketones Test strip Ql (U)Ord ered By: Kori Sethi on 07-03-2024 Ketones Ql (U) Negative Negative [facility] Lymphocytes Auto (Unsp spec) [#/Vol]Ordered By: Kori Sethi on 07-03-2024 Lymphocytes (Bld) [#/Vol] 2.57 10*3/uL 0.83-4.51 [facility] Lymphocytes/100 WBC Auto (Un sp spec)Ordered By: Kori Sethi on 07-03-2024 Lymphocytes/100 WBC (Bld) 36.8 % 19-41 [facility] MCV (mean corpuscular volume ) determinationOrdered By: Kori Sethi on 07-03-2024 MCV (RBC) [Entitic vol] 83.8 fL 81-99 [facility] MR/POSTOP.ANEon 07-03-2024 MR/POSTOP.ANE [facility] Medical Records Department [address] [address] Anesthesia Postop Eval I 07/03/24 1244 MR#: [id number] Acct: [id number] Name: HENRIK REED Rep #: [id number] : 1975 49 From: Allie Ritchie PCP: Dr. Lavon Vicente MD Status:[facility] Y Race: C Location: [place] [address] Anesthesia: Postop Eval I Current Vital Signs Temperature: 97.8 F Pulse Rate: 95 Blood Pressure: 108/78 Respiratory Rate: 20 Pulse Ox: 95 Assessment Airway patent: Yes Spontaneous unlabored respirations: Yes nausea: No Vomiting: No Anesthesia Complication: No Fluid Hydration Crystalloid volume administer (ml): 0 Total IV fluid infused: 0 Progress Note Anesthesia document: Postop Eval 1 completed: Yes 07/03/24 1245 Date Allie Ahuja Signature: Date CC: Signed Normal [facility] MR/[id number] [facility]-03-2024 [facility] Medical Records Department [address] [place] [address] Anesthesia Postop Eval II 07/03/24 1421 MR#: [id number] Acct: [id number] Name: HENRIK REED Rep #: [id number] : 1975 49 From: Filiberto Ureña MD PCP: Dr. Lavon Vicente MD Status:[facility] Y Race: C Location: [place] [address] Anesthesia Postop Eval I Sum Postop Eval Completion status Anesthesia document: Postop Eval 1 completed: Yes Anesthesia Postop Eval I Summary Anesthesia Postop Eval I Summary: Anesthesia Postop Eval I: Assessment Summary Airway patent Yes 07/03/24 12:44 EXEC. CREATIVE DIRECTOR.CSIR Spontaneous unlabored Yes 07/03/24 12:44 EXEC. CREATIVE DIRECTOR.CSIR respirations Mental status nausea No 07/03/24 12:44 EXEC. CREATIVE DIRECTOR.CSIR Vomiting No 07/03/24 12:44 EXEC. CREATIVE DIRECTOR.CSIR Anesthesia Postop Eval I: Fluid Summary Crystalloid volume administer 0 07/03/24 12:44 EXEC. CREATIVE DIRECTOR.CSIR (ml) Colloids volume administered ( ml) Blood Product volume administered (ml) Total IV fluid infused 0 07/03/24 12:44 EXEC. CREATIVE DIRECTOR.CSIR Anesthesia Postop Eval I: Summary Notes Anesthesia Complication No 07/03/24 12:44 EXEC. CREATIVE DIRECTOR.CSIR Anesthesia Complication Comment: Post-operative progress note Anesthesia: Postop Eval II Evaluation Mental status: Awake Pain Level: 2 nausea: No Vomiting: No Complications Anesthesia Complication: No 07/03/24 1421 Date Filiberto Ureña MD Cosigner Signature: Date CC: Signed Normal [facility] Mean corpuscular hemoglobin (MCH) determinationOrdered By: Kori Sethi on 07-03-2024 MCH (RBC) [Entitic mass] 25.6 pg Low 27.0-32.0 [facility] Mean corpuscular hemoglobin concentration (MCHC) determinationOrdered By: Kori Stehi on 07-03-2024 MCHC (RBC) [Mass/Vol] 30.5 g/dL Low 32-36 [facility] Mean platelet volume determi nationOrdered By: Kori Sethi on 07-03-2024 Platelet mean volume (Bld) [Entitic vol] 9.6 fL 6.2-12.0 [facility] Microscopic analysis of urin e for red blood cells (RBC)Ordered By: Kori Sethi on 07-03-2024 Microscopic analysis of urine for red blood cells (RBC) 0 SEEN /hpf 0-5 [facility] Urine RBC 0 SEEN /hpf 0-5 [facility] Monocyte percentageOrdered B y: Kori Sethi on 07-03-2024 Monocytes/100 WBC (Bld) 8.0 % 0-10 [facility] Mucus LM Ql (Urine sed)Order ed By: Kori Sethi on 07-03-2024 Mucus Ql (Urine sed) 0 SEEN /hpf [facility] Neutrophil percentageOrdered By: Kori Sethi on 07-03-2024 Neutrophils/100 WBC (Bld) 50.4 % 47-70 [facility] Nitrite Test strip Ql (U)Ord ered By: Kori Sethi on 07-03-2024 Nitrite Ql (U) Positive High Negative [facility] Nucleated red blood cell per centageOrdered By: Kori Sethi on 07-03-2024 Nucleated RBC/100 WBC (Bld) [Ratio] 0 % 0-5 [facility] Platelet countOrdered By: Edenilson Sethi on 07-03-2024 Platelets (Bld) [#/Vol] 312 10*3/uL 150-450 [facility] Potassium measurementOrdered By: Kori Sethi on 07-03-2024 Potassium [Moles/Vol] 3.8 mmol/L 3.5-5.1 [facility] Protein Test strip Ql (U)Ord ered By: Kori Sethi on 07-03-2024 Protein Ql (U) 15 mg/dl High Negative [facility] RBC Auto (Bld) [#/Vol]Ordere d By: Kori Sethi on 07-03-2024 RBC (Bld) [#/Vol] 3.95 10*6/uL Low 4.2-5.4 Located [facility] Serum anion gap measurementO rdered By: Kori Sethi on 07-03-2024 Anion gap [Moles/Vol] 4 mmol/L Low 5-15 [facility] Serum or plasma calcium miguel angel urement (mass/volume)Ordered By: Kori Sethi on 07-03-2024 Calcium [Mass/Vol] 9.0 mg/dL 8.5-10.1 [facility] Serum or plasma creatinine m easurement (mass/volume)Ordered By: Kori Sethi on 01-20-2025 Creatinine [Mass/Vol] 0.30 mg/dL Low 0.55-1.02 [facility] Comment on above: The validity of the calculated GFR & GFRAA in patients over 70 years has not been determined. Clinical correlation is essential. Serum or plasma urea nitroge n measurement (mass/volume)Ordered By: Kori Sethi on 07-03-2024 Urea nitrogen [Mass/Vol] 12 mg/dL 7-18 [facility] Sodium levelOrdered By: Baiely Sethi on 07-03-2024 Sodium [Moles/Vol] 138 mmol/L 136-145 [facility] Squamous epithelial cells de tection in urine sediment by light microscopyOrdered By: Kori Sethi on 07-03-2024 Epithelial cells.squamous LM Ql (Urine sed) 0-5 SEEN /hpf 5-10 [facility] Triple phosphate crystals LM Ql (Urine sed)Ordered By: Kori Sethi on 07-03-2024 Urine Triple Phosphate Crystals 1+ /hpf [facility] Triple phosphate crystals de tection in urine sediment by light microscopyOrdered By: Kori Sethi on 07-03-2024 Triple phosphate crystals LM Ql (Urine sed) 1+ /hpf [facility] Urinalysis, Completeon 07-03 AMORPHOUS 2+ Normal [facility] Comment on above: Order Comment: NORMA TER SPECIMEN Performed By: #### L 500.2500, M100.2200, L400.0001, L100.0100 #### [facility] [address] [place], [address] TRIPLE PHOS 1+ /hpf Normal [facility] Comment on above: Order Comment: NORMA TER SPECIMEN Performed By: #### L 500.2500, M100.2200, L400.0001, L100.0100 #### [facility] [address] [place], [address] BACTERIA 1+ /hpf Normal None Seen [facility] Comment on above: Order Comment: NORMA TER SPECIMEN Performed By: #### L 500.2500, M100.2200, L400.0001, L100.0100 #### [facility] [address] [place], [address] EPI,SQUAMOUS 0-5 SEEN Normal 5-10 [facility] Comment on above: Order Comment: NORMA TER SPECIMEN Performed By: #### L 500.2500, M100.2200, L400.0001, L100.0100 #### [facility] [address] [place], [address] WBC 0-5 SEEN Normal 0-5 [facility] Comment on above: Order Comment: NORMA TER SPECIMEN Performed By: #### L 500.2500, M100.2200, L400.0001, L100.0100 #### [facility] [address] [place], [address] Mucus Ql (Urine sed) 0 SEEN Normal [facility] Comment on above: Order Comment: NORMA TER SPECIMEN Performed By: #### L 500.2500, M100.2200, L400.0001, L100.0100 #### [facility] [address] [place], [address] RBC 0 SEEN Normal 0-5 [facility] Comment on above: Order Comment: NORMA TER SPECIMEN Performed By: #### L 500.2500, M100.2200, L400.0001, L100.0100 #### [facility] [address] [place], [address] Urine blood detectionOrdered By: Kori Sethi on 07-03-2024 Urine Occult Blood 50 /ul High Negative [facility] Urine clarityOrdered By: Shavonne Sethi on 07-03-2024 Clarity (U) Sl. Cloudy Clear [facility] Urine color determinationOrd ered By: Kori Sethi on 07-03-2024 Color (U) Yellow Yellow [facility] Urine cultureOrdered By: Shavonne Sethi on 07-03-2024 Bacteria identified Cx Nom (U) Mixed Gram Pos & Gram Neg Org Abnormal [facility] Urine glucose detectionOrder ed By: Kori Sethi on 07-03-2024 Glucose Ql (U) Normal mg/dl Normal [facility] Urine leukocyte esterase det ection by dipstickOrdered By: Kori Sethi on 07-03-2024 Leukocyte esterase Test strip Ql (U) 500 /ul High Negative [facility] Urine pHOrdered By: Kori Rider udla on 07-03-2024 pH (U) 8.0 [pH] 5.0 - 8.0 [facility] Urine sediment bacteria coun t by microscopy (number/high power field)Ordered By: Kori Sethi on 07-03-2024 Bacteria LM.HPF (Urine sed) [#/Area] 1 /[HPF] None Seen [facility] Urine specific gravity measu rementOrdered By: Kori Sethi on 07-03-2024 Specific gravity (U) [Rel density] 1.010 1.002-1.030 [facility] Urine urobilinogen measureme ntOrdered By: Kori Sethi on 07-03-2024 Urobilinogen Ql (U) 1 mg/dl High Normal [facility] Urobilinogen Ql (U)Ordered B y: Kori Sethi on 07-03-2024 Urobilinogen (U) [Mass/Vol] 1 mg/dL High Normal [facility] White blood cell (WBC) count Ordered By: Kori Sethi on 07-03-2024 WBC (Bld) [#/Vol] 7.0 10*3/uL 4.4-11.0 [facility] White blood cell countOrdere d By: Kori Sethi on 07-03-2024 Urine WBC 0-5 SEEN /hpf 0-5 [facility] White blood cell count 0-5 SEEN /hpf 0-5 [facility] 29-HY-Zoyosgs DOrdered By: Nancie Sethi on 06-12-2024 Vitamin D 25-Hydroxy 41.4 ng/mL [facility] Comment on above: Vitamin D 25(OH) Sta tus Range Deficiency <20 ng/mL (50nmol/L) Insufficiency 20 - 30 ng/mL (50 - 75 nmol/L) Sufficiency 30 - 100 ng/mL (75 - 250 nmol/L) Toxicity >100 ng/mL (>250 nmol/L) Absolute neutrophil countOrd ered By: Kori Sethi on 06-12-2024 Neutrophils (Bld) [#/Vol] 3.3 10*3/uL 2.0-7.7 [facility] Albumin to globulin ratioOrd ered By: Kori Sethi on 06-12-2024 Albumin/Globulin [Mass ratio] 0.5 {ratio} Low 0.9-2.4 [facility] Basophil percentageOrdered B y: Kori Sethi on 06-12-2024 Basophils/100 WBC (Bld) 0.7 % 0-1 [facility] Bilirubin, totalOrdered By: Kori Sethi on 06-12-2024 Bilirubin [Mass/Vol] 0.30 mg/dL 0.20-1.00 [facility] Comment on above: For patients on eltr ombopag therapy, use of Dimension Amanda TBIL is not recommended. Blood urea nitrogen (BUN)/cr eatinine ratioOrdered By: Kori Sethi on 06-12-2024 Urea nitrogen/Creatinine [Mass ratio] 30.7 mg/mg High 10-20 [facility] CBC W/Diff, Automatedon 05-16 Absolute Lymph 2.55 X10 3/uL Normal 0.83-4.51 [facility] Comment on above: Order Comment: 517-2 Performed By: #### L 500.4050, L503.0105, L506.1000, L100.0100, L500.4100, L501.9520 #### [facility] [address] [place], [address] Absolute Neut 3.3 X10 3/uL Normal 2.0-7.7 [facility] Comment on above: Order Comment: 517-2 Performed By: #### L 500.4050, L503.0105, L506.1000, L100.0100, L500.4100, L501.9520 #### [facility] [address] [place], [address] Basophils/100 WBC (Bld) 0.7 % Normal 0-1 [facility] Comment on above: Order Comment: 517-2 Performed By: #### L 500.4050, L503.0105, L506.1000, L100.0100, L500.4100, L501.9520 #### [facility] [address] [place], [address] Eosinophils/100 WBC (Bld) 5.2 % High 0-5 [facility] Comment on above: Order Comment: 517-2 Performed By: #### L 500.4050, L503.0105, L506.1000, L100.0100, L500.4100, L501.9520 #### [facility] [address] [place], [address] Erythrocyte distribution width (RBC) [Ratio] 16.0 % High 11.6-14.6 [facility] Comment on above: Order Comment: 517-2 Performed By: #### L 500.4050, L503.0105, L506.1000, L100.0100, L500.4100, L501.9520 #### [facility] [address] [place], [address] Hematocrit (Bld) [Volume fraction] 32.9 % Low 37-47 [facility] Comment on above: Order Comment: 517-2 Performed By: #### L 500.4050, L503.0105, L506.1000, L100.0100, L500.4100, L501.9520 #### [facility] [address] [place], [address] Hemoglobin (Bld) [Mass/Vol] 9.9 g/dL Low 12.0-15.0 [facility] Comment on above: Order Comment: 517-2 Performed By: #### L 500.4050, L503.0105, L506.1000, L100.0100, L500.4100, L501.9520 #### [facility] [address] [place], [address] IG% 0.300 Normal 0.0-0.9 [facility] Comment on above: Order Comment: 517-2 Result Comment: IG% - Immature Granulocytes (promyelocytes, myelocytes and metamyelocytes) > 1% indicates that a LEFT SHIFT is Present. Performed By: #### L 500.4050, L503.0105, L506.1000, L100.0100, L500.4100, L501.9520 #### [facility] [address] [place], [address] Lymphocytes/100 WBC (Bld) 37.6 % Normal 19-41 [facility] Comment on above: Order Comment: 517-2 Performed By: #### L 500.4050, L503.0105, L506.1000, L100.0100, L500.4100, L501.9520 #### [facility] [address] [place], [address] MCH (RBC) [Entitic mass] 25.0 pg Low 27.0-32.0 [facility] Comment on above: Order Comment: 517-2 Performed By: #### L 500.4050, L503.0105, L506.1000, L100.0100, L500.4100, L501.9520 #### [facility] [address] [place], [address] MCHC (RBC) [Mass/Vol] 30.1 g/dL Low 32-36 [facility] Comment on above: Order Comment: 517-2 Performed By: #### L 500.4050, L503.0105, L506.1000, L100.0100, L500.4100, L501.9520 #### [facility] [address] [place], [address] MCV (RBC) [Entitic vol] 83.1 fL Normal 81-99 [facility] Comment on above: Order Comment: 517-2 Performed By: #### L 500.4050, L503.0105, L506.1000, L100.0100, L500.4100, L501.9520 #### [facility] [address] [place], [address] Monocytes/100 WBC (Bld) 7.4 % Normal 0-10 [facility] Comment on above: Order Comment: 517-2 Performed By: #### L 500.4050, L503.0105, L506.1000, L100.0100, L500.4100, L501.9520 #### [facility] [address] [place], [address] Neutrophils/100 WBC (Bld) 48.8 % Normal 47-70 [facility] Comment on above: Order Comment: 517-2 Performed By: #### L 500.4050, L503.0105, L506.1000, L100.0100, L500.4100, L501.9520 #### [facility] [address] [place], [address] Nucleated RBC (Bld) [#/Vol] 0 10*3/uL Normal 0-5 [facility] Comment on above: Order Comment: 517-2 Performed By: #### L 500.4050, L503.0105, L506.1000, L100.0100, L500.4100, L501.9520 #### [facility] [address] [place], [address] Platelet mean volume (Bld) [Entitic vol] 9.4 fL Normal 6.2-12.0 [facility] Comment on above: Order Comment: 517-2 Performed By: #### L 500.4050, L503.0105, L506.1000, L100.0100, L500.4100, L501.9520 #### [facility] [address] [place], [address] Platelets (Bld) [#/Vol] 342 10*3/uL Normal 150-450 [facility] Comment on above: Order Comment: 517-2 Performed By: #### L 500.4050, L503.0105, L506.1000, L100.0100, L500.4100, L501.9520 #### [facility] [address] [place], [address] RBC (Bld) [#/Vol] 3.96 10*6/uL Low 4.2-5.4 [facility] Comment on above: Order Comment: 517-2 Performed By: #### L 500.4050, L503.0105, L506.1000, L100.0100, L500.4100, L501.9520 #### [facility] [address] [place], [address] RDW SD 48.2 fl High 35.1-43.9 [facility] Comment on above: Order Comment: 517-2 Performed By: #### L 500.4050, L503.0105, L506.1000, L100.0100, L500.4100, L501.9520 #### [facility] [address] [place], [address] WBC (Bld) [#/Vol] 6.8 10*3/uL Normal 4.4-11.0 [facility] Comment on above: Order Comment: 517-2 Performed By: #### L 500.4050, L503.0105, L506.1000, L100.0100, L500.4100, L501.9520 #### [facility] [address] [place], [address] Carbon dioxide measurementOr dered By: Kori Sethi on 06-12-2024 CO2 [Moles/Vol] 29.0 mmol/L 21.0-32.0 [facility] Chloride measurementOrdered By: Kori Sethi on 06-12-2024 Chloride [Moles/Vol] 102 mmol/L 98-107 [facility] Comprehensive Metabolic Prof ilon 06-12-2024 Albumin [Mass/Vol] 2.8 g/dL Low 3.2-5.0 [facility] Comment on above: Order Comment: 517-2 Performed By: #### L 500.4050, L503.0105, L506.1000, L100.0100, L500.4100, L501.9520 #### [facility] [address] [place], [address] Albumin/Globulin [Mass ratio] 0.5 {ratio} Low 0.9-2.4 [facility] Comment on above: Order Comment: 517-2 Performed By: #### L 500.4050, L503.0105, L506.1000, L100.0100, L500.4100, L501.9520 #### [facility] [address] [place], [address] ALK P 94 U/L Normal 45-117 [facility] Comment on above: Order Comment: 517-2 Performed By: #### L 500.4050, L503.0105, L506.1000, L100.0100, L500.4100, L501.9520 #### [facility] [address] [place], [address] ALT [Catalytic activity/Vol] 27 U/L Normal 13-56 [facility] Comment on above: Order Comment: 517-2 Performed By: #### L 500.4050, L503.0105, L506.1000, L100.0100, L500.4100, L501.9520 #### [facility] [address] [place], [address] AST [Catalytic activity/Vol] 18 U/L Normal 15-37 [facility] Comment on above: Order Comment: 517-2 Performed By: #### L 500.4050, L503.0105, L506.1000, L100.0100, L500.4100, L501.9520 #### [facility] [address] [place], [address] Bilirubin [Mass/Vol] 0.30 mg/dL Normal 0.20-1.00 [facility] Comment on above: Order Comment: 517-2 Result Comment: For patients on eltrombopag therapy, use of Dimension Amanda TBIL is not recommended. Performed By: #### L 500.4050, L503.0105, L506.1000, L100.0100, L500.4100, L501.9520 #### [facility] [address] [place], [address] BUN/CRE 30.7 RATIO High 10-20 [facility] Comment on above: Order Comment: 517-2 Performed By: #### L 500.4050, L503.0105, L506.1000, L100.0100, L500.4100, L501.9520 #### [facility] [address] [place], [address] CA,Total 8.8 mg/dL Normal 8.5-10.1 [facility] Comment on above: Order Comment: 517-2 Performed By: #### L 500.4050, L503.0105, L506.1000, L100.0100, L500.4100, L501.9520 #### [facility] [address] [place], [address] Chloride [Moles/Vol] 102 mmol/L Normal 98-107 [facility] Comment on above: Order Comment: 517-2 Performed By: #### L 500.4050, L503.0105, L506.1000, L100.0100, L500.4100, L501.9520 #### [facility] [address] [place], [address] CO2 [Moles/Vol] 29.0 mmol/L Normal 21.0-32.0 [facility] Comment on above: Order Comment: 517-2 Performed By: #### L 500.4050, L503.0105, L506.1000, L100.0100, L500.4100, L501.9520 #### [facility] [address] [place], [address] Creatinine [Mass/Vol] 0.36 mg/dL Low 0.55-1.02 [facility] Comment on above: Order Comment: Result Comment: The validity of the calculated GFR GFRAA in patients over 70 years has not been determined. Clinical correlation is essential. Performed By: #### L 500.4050, L503.0105, L506.1000, L100.0100, L500.4100, L501.9520 #### [facility] [address] [place], [address] EST GFR - AA 247 mL/min Normal >60 [facility] Comment on above: Order Comment: Result Comment: Afri can Guamanian GFR Calc Performed By: #### L 500.4050, L503.0105, L506.1000, L100.0100, L500.4100, L501.9520 #### [facility] [address] [place], [address] GAP 8 Normal 5-15 [facility] Comment on above: Order Comment: -2 Performed By: #### L 500.4050, L503.0105, L506.1000, L100.0100, L500.4100, L501.9520 #### [facility] [address] [place], [address] GFR/1.73 sq M.predicted among non-blacks MDRD (S/P/Bld) [Vol rate/Area] 204 mL/min/{1.73_m2} Normal >60 [facility] Comment on above: Order Comment: Result Comment: Non- GFR Calc Performed By: #### L 500.4050, L503.0105, L506.1000, L100.0100, L500.4100, L501.9520 #### [facility] [address] [place], [address] Globulin (S) [Mass/Vol] 5.1 g/dL High 2.2-4.2 [facility] Comment on above: Order Comment: 517-2 Performed By: #### L 500.4050, L503.0105, L506.1000, L100.0100, L500.4100, L501.9520 #### [facility] [address] [place], [address] Glucose [Mass/Vol] 106 mg/dL Normal 74-106 [facility] Comment on above: Order Comment: 517-2 Result Comment: Fast ing Glucose result from 100 to 125 mg/dL suggests IMPAIRED HOMEOSTASIS per A.D.A. criteria. Performed By: #### L 500.4050, L503.0105, L506.1000, L100.0100, L500.4100, L501.9520 #### [facility] [address] [place], [address] Potassium [Moles/Vol] 3.4 mmol/L Low 3.5-5.1 [facility] Comment on above: Order Comment: 517-2 Performed By: #### L 500.4050, L503.0105, L506.1000, L100.0100, L500.4100, L501.9520 #### [facility] [address] [place], [address] Sodium [Moles/Vol] 139 mmol/L Normal 136-145 [facility] Comment on above: Order Comment: 517-2 Performed By: #### L 500.4050, L503.0105, L506.1000, L100.0100, L500.4100, L501.9520 #### [facility] [address] [place], [address] T PROT 7.9 g/dL Normal 6.4-8.2 [facility] Comment on above: Order Comment: 517-2 Performed By: #### L 500.4050, L503.0105, L506.1000, L100.0100, L500.4100, L501.9520 #### [facility] [address] [place], [address] Urea nitrogen [Mass/Vol] 11 mg/dL Normal 7-18 [facility] Comment on above: Order Comment: 517-2 Performed By: #### L 500.4050, L503.0105, L506.1000, L100.0100, L500.4100, L501.9520 #### [facility] [address] [place], [address] Eosinophil percentageOrdered By: Kori Sethi on 06-12-2024 Eosinophils/100 WBC (Bld) 5.2 % High 0-5 [facility] Erythrocyte distribution wid th (RBC) [Ratio]Ordered By: Kori Sethi on 06-12-2024 Erythrocyte distribution width (RBC) [Entitic vol] 48.2 fL High 35.1-43.9 [facility] Erythrocyte distribution wid th ratioOrdered By: Kori Sethi on 06-12-2024 Erythrocyte distribution width (RBC) [Ratio] 16.0 % High 11.6-14.6 [facility] Estimated glomerular filtrat ion rate (GFR) AmericanOrdered By: Kori Sethi on 06-12-2024 Estimated GFR (MDRD) Amer 247 mL/min >60 [facility] Comment on above: GFR Calc Glomerular filtration rate ( GFR) estimationOrdered By: Kori Sethi on 06-12-2024 Estimated GFR (MDRD) Non-Af Amer 204 mL/min >60 [facility] Comment on above: Non- GFR Calc Glucose measurementOrdered B y: Kori Sethi on 06-12-2024 Glucose [Mass/Vol] 106 mg/dL 74-106 [facility] Comment on above: Fasting Glucose resu lt from 100 to 125 mg/dL suggests IMPAIRED HOMEOSTASIS per A.D.A. criteria. Hematocrit Auto (Bld) [Volum e fraction]Ordered By: Kori Sethi on 06-12-2024 Hematocrit (Bld) [Volume fraction] 32.9 % Low 37-47 [facility] Hemoglobin measurementOrdere d By: Kori Sethi on 06-12-2024 Hemoglobin (Bld) [Mass/Vol] 9.9 g/dL Low 12.0-15.0 [facility] High density lipoprotein (HD L) measurementOrdered By: Kori Sethi on 06-12-2024 Cholesterol in HDL [Mass/Vol] 58 mg/dL >40 [facility] Comment on above: The drugs N-Acetylcy steine and Metamizole may falsely depress this assay. Reference Range HDL <40 mg/dL Low HDL Cholesterol HDL >or= 60 mg/dL High HDL Cholesterol Immature granulocytes/100 WB C Auto (Bld)Ordered By: Kori Sethi on 06-12-2024 Immature granulocytes/100 WBC (Bld) 0.300 % 0.0-0.9 [facility] Comment on above: IG% - Immature Granu locytes (promyelocytes, myelocytes and metamyelocytes) > 1% indicates that a LEFT SHIFT is Present. Laboratory - Chemistry and C hemistry - challengeOrdered By: Kori Sethi on 06-12-2024 AST [Catalytic activity/Vol] 18 U/L 15-37 [facility] Lipid Profileon 06-12-2024 Cholesterol [Mass/Vol] 184 mg/dL Normal 200 [facility] Comment on above: Order Comment: 517-2 Result Comment: <200 mg/dL Desirable 200-240 mg/dL Borderline >240 mg/dL High Risk Performed By: #### L 500.4050, L503.0105, L506.1000, L100.0100, L500.4100, L501.9520 #### [facility] [address] [place], [address] Cholesterol in HDL [Mass/Vol] 58 mg/dL Normal [facility] Comment on above: Order Comment: 517-2 Result Comment: The drugs N-Acetylcysteine and Metamizole may falsely depress this assay. Reference Range HDL <40 mg/dL Low HDL Cholesterol HDL >or= 60 mg/dL High HDL Cholesterol Performed By: #### L 500.4050, L503.0105, L506.1000, L100.0100, L500.4100, L501.9520 #### [facility] [address] [place], [address] Cholesterol in LDL [Mass/Vol] 108 mg/dL Normal 0-130 [facility] Comment on above: Order Comment: 517-2 Performed By: #### L 500.4050, L503.0105, L506.1000, L100.0100, L500.4100, L501.9520 #### [facility] [address] [place], [address] Cholesterol in VLDL [Mass/Vol] 18 mg/dL Normal 5-40 [facility] Comment on above: Order Comment: 517-2 Performed By: #### L 500.4050, L503.0105, L506.1000, L100.0100, L500.4100, L501.9520 #### [facility] [address] [place], [address] Triglyceride [Mass/Vol] 91 mg/dL Normal [facility] Comment on above: Order Comment: 517-2 Result Comment: The drugs N-Acetylcysteine and Metamizole may falsely depress this assay. Serum Triglycerides Reference Interval Normal <150 mg/dL Borderline high 150 - 199 mg/dL High 200 - 499 mg/dL Very High > or = 500 mg/dL Performed By: #### L 500.4050, L503.0105, L506.1000, L100.0100, L500.4100, L501.9520 #### [facility] [address] [place], [address] Low density lipoprotein (LDL ) cholesterol measurementOrdered By: Kori Sethi on 06-12-2024 Cholesterol in LDL [Mass/Vol] 108 mg/dL 0-130 [facility] Lymphocytes Auto (Unsp spec) [#/Vol]Ordered By: Kori Sethi on 06-12-2024 Lymphocytes (Bld) [#/Vol] 2.55 10*3/uL 0.83-4.51 [facility] Lymphocytes/100 WBC Auto (Un sp spec)Ordered By: Kori Sethi on 06-12-2024 Lymphocytes/100 WBC (Bld) 37.6 % 19-41 [facility] MCV (mean corpuscular volume ) determinationOrdered By: Kori Sethi on 06-12-2024 MCV (RBC) [Entitic vol] 83.1 fL 81-99 [facility] Mean corpuscular hemoglobin (MCH) determinationOrdered By: Kori Sethi on 06-12-2024 MCH (RBC) [Entitic mass] 25.0 pg Low 27.0-32.0 [facility] Mean corpuscular hemoglobin concentration (MCHC) determinationOrdered By: Kori Sethi on 06-12-2024 MCHC (RBC) [Mass/Vol] 30.1 g/dL Low 32-36 [facility] Mean platelet volume determi nationOrdered By: Kori Sethi on 06-12-2024 Platelet mean volume (Bld) [Entitic vol] 9.4 fL 6.2-12.0 [facility] Monocyte percentageOrdered B y: Kori Sethi on 06-12-2024 Monocytes/100 WBC (Bld) 7.4 % 0-10 [facility] Neutrophil percentageOrdered By: Kori Sethi on 06-12-2024 Neutrophils/100 WBC (Bld) 48.8 % 47-70 [facility] Nucleated red blood cell per centageOrdered By: Kori Sethi on 06-12-2024 Nucleated RBC/100 WBC (Bld) [Ratio] 0 % 0-5 [facility] Platelet countOrdered By: Edenilson Sethi on 06-12-2024 Platelets (Bld) [#/Vol] 342 10*3/uL 150-450 [facility] Potassium measurementOrdered By: Kori Sethi on 06-12-2024 Potassium [Moles/Vol] 3.4 mmol/L Low 3.5-5.1 [facility] RBC Auto (Bld) [#/Vol]Ordere d By: Kori Sethi on 06-12-2024 RBC (Bld) [#/Vol] 3.96 10*6/uL Low 4.2-5.4 [facility] Serum anion gap measurementO rdered By: Kori Sethi on 06-12-2024 Anion gap [Moles/Vol] 8 mmol/L 5-15 [facility] Serum globulin measurementOr dered By: Kori Sethi on 06-12-2024 Globulin (S) [Mass/Vol] 5.1 g/dL High 2.2-4.2 [facility] Serum or plasma alanine lyon otransferase (ALT) measurementOrdered By: Kori Sethi on 06-12-2024 ALT [Catalytic activity/Vol] 27 U/L 13-56 [facility] Serum or plasma albumin miguel angel urement (mass/volume)Ordered By: Kori Sethi on 06-12-2024 Albumin [Mass/Vol] 2.8 g/dL Low 3.2-5.0 [facility] Serum or plasma alkaline raghu sphatase measurementOrdered By: Kori Sethi on 06-12-2024 ALP [Catalytic activity/Vol] 94 U/L 45-117 [facility] Serum or plasma calcium miguel angel urement (mass/volume)Ordered By: Kori Sethi on 06-12-2024 Calcium [Mass/Vol] 8.8 mg/dL 8.5-10.1 [facility] Serum or plasma cholesterol measurement (mass/volume)Ordered By: Kori Sethi on 06-12-2024 Cholesterol [Mass/Vol] 184 mg/dL <200 [facility] Comment on above: <200 mg/dL Desirable 200-240 mg/dL Borderline >240 mg/dL High Risk Serum or plasma creatinine m easurement (mass/volume)Ordered By: Kori Sethi on 06-12-2024 Creatinine [Mass/Vol] 0.36 mg/dL Low 0.55-1.02 [facility] Comment on above: The validity of the calculated GFR & GFRAA in patients over 70 years has not been determined. Clinical correlation is essential. Serum or plasma urea nitroge n measurement (mass/volume)Ordered By: Kori Sethi on 06-12-2024 Urea nitrogen [Mass/Vol] 11 mg/dL 7-18 [facility] Sodium levelOrdered By: Bailey Sethi on 06-12-2024 Sodium [Moles/Vol] 139 mmol/L 136-145 [facility] TSH QnOrdered By: Kori patterson on 06-12-2024 Thyroid Stimulating Hormone (TSH) 4.310 uIU/mL High 0.358-3.740 [facility] Thyroid Stim Hormone (TSH)on 06-12-2024 TSH 4.310 uIU/mL High 0.358-3.740 [facility] Comment on above: Order Comment: 517-2 Performed By: #### L 500.4050, L503.0105, L506.1000, L100.0100, L500.4100, L501.9520 #### [facility] [address] [place], [address] Total proteinOrdered By: Shavonne Sethi on 06-12-2024 Protein [Mass/Vol] 7.9 g/dL 6.4-8.2 [facility] Triglycerides measurementOrd ered By: Kori Sethi on 06-12-2024 Triglyceride [Mass/Vol] 91 mg/dL <199 [facility] Comment on above: The drugs N-Acetylcy steine and Metamizole may falsely depress this assay.Serum Triglycerides Reference Interval Normal <150 mg/dL Borderline high 150 - 199 mg/dL High 200 - 499 mg/dL Very High > or = 500 mg/dL Very low density lipoprotein (VLDL) cholesterol measurementOrdered By: Kori Sethi on 06-12-2024 VLDL Cholesterol 18 mg/dL 5-40 [facility] Vitamin B12on 06-12-2024 Cobalamin (Vitamin B12) [Mass/Vol] 414 pg/mL Normal 211-911 [facility] Comment on above: Order Comment: 517-2 Performed By: #### L 500.4050, L503.0105, L506.1000, L100.0100, L500.4100, L501.9520 #### [facility] [address] [place], [address] Vitamin B12 measurementOrder ed By: Kori Sethi on 06-12-2024 Cobalamin (Vitamin B12) [Mass/Vol] 414 pg/mL 211-911 [facility] Vitamin D,25 Hydroxyon 06-12 Vitamin D 25-OH 41.4 ng/mL Normal [facility] Comment on above: Order Comment: 517-2 Result Comment: Rosalba min D 25(OH) Status Range Deficiency <20 ng/mL (50nmol/L) Insufficiency 20 - 30 ng/mL (50 - 75 nmol/L) Sufficiency 30 - 100 ng/mL (75 - 250 nmol/L) Toxicity >100 ng/mL (>250 nmol/L) Performed By: #### L 500.4050, L503.0105, L506.1000, L100.0100, L500.4100, L501.9520 #### [facility] [address] [place], [address] White blood cell (WBC) count Ordered By: Kori Sethi on 06-12-2024 WBC (Bld) [#/Vol] 6.8 10*3/uL 4.4-11.0 [facility] Stool Occult Blood iFOBon STOB Negative Normal [facility] Comment on above: Performed By: #### L 500.2500, M100.2200, L400.0001, L100.0100 #### [facility] [address] [place], [address] Basic Metabolic Profile (BMP )on 04-12-2024 BUN/CRE 39.2 RATIO High 04-02 [facility] Comment on above: Order Comment: 517.2 Performed By: #### L 500.2500, M100.2200, L400.0001, L100.0100 #### [facility] [address] [place], [address] CA,Total 8.8 mg/dL Normal 8.5-10.1 [facility] Comment on above: Order Comment: 517.2 Performed By: #### L 500.2500, M100.2200, L400.0001, L100.0100 #### [facility] [address] [place], [address] Chloride [Moles/Vol] 104 mmol/L Normal 98-107 [facility] Comment on above: Order Comment: 517.2 Performed By: #### L 500.2500, M100.2200, L400.0001, L100.0100 #### [facility] [address] [place], [address] CO2 [Moles/Vol] 32.0 mmol/L Normal 21.0-32.0 [facility] Comment on above: Order Comment: 517.2 Performed By: #### L 500.2500, M100.2200, L400.0001, L100.0100 #### [facility] [address] [place], [address] Creatinine [Mass/Vol] 0.33 mg/dL Low 0.55-1.02 [facility] Comment on above: Order Comment: 517.2 Result Comment: The validity of the calculated GFR GFRAA in patients over 70 years has not been determined. Clinical correlation is essential. Performed By: #### L 500.2500, M100.2200, L400.0001, L100.0100 #### [facility] [address] [place], [address] EST GFR - AA 269 mL/min Normal >60 [facility] Comment on above: Order Comment: 517.2 Result Comment: Afri can Guamanian GFR Calc Performed By: #### L 500.2500, M100.2200, L400.0001, L100.0100 #### [facility] [address] [place], [address] GAP 4 Low 5-15 [facility] Comment on above: Order Comment: 517.2 Performed By: #### L 500.2500, M100.2200, L400.0001, L100.0100 #### [facility] [address] [place], [address] GFR/1.73 sq M.predicted among non-blacks MDRD (S/P/Bld) [Vol rate/Area] 222 mL/min/{1.73_m2} Normal >60 [facility] Comment on above: Order Comment: 517.2 Result Comment: Non- GFR Calc Performed By: #### L 500.2500, M100.2200, L400.0001, L100.0100 #### [facility] [address] [place], [address] Glucose [Mass/Vol] 104 mg/dL Normal 74-106 [facility] Comment on above: Order Comment: 517.2 Result Comment: Fast ing Glucose result from 100 to 125 mg/dL suggests IMPAIRED HOMEOSTASIS per A.D.A. criteria. Performed By: #### L 500.2500, M100.2200, L400.0001, L100.0100 #### [facility] [address] [place], [address] Potassium [Moles/Vol] 3.7 mmol/L Normal 3.5-5.1 [facility] Comment on above: Order Comment: 517.2 Performed By: #### L 500.2500, M100.2200, L400.0001, L100.0100 #### [facility] [address] [place], [address] Sodium [Moles/Vol] 140 mmol/L Normal 136-145 [facility] Comment on above: Order Comment: 517.2 Performed By: #### L 500.2500, M100.2200, L400.0001, L100.0100 #### [facility] [address] [place], [address] Urea nitrogen [Mass/Vol] 13 mg/dL Normal 7-18 [facility] Comment on above: Order Comment: 517.2 Performed By: #### L 500.2500, M100.2200, L400.0001, L100.0100 #### [facility] [address] [place], [address] BNP,B-Type NATRIURETIC PEPTI Zuhair 03-17-2024 Natriuretic peptide B (Bld) [Mass/Vol] 13.4 pg/mL Normal 0-100 [facility] Comment on above: Order Comment: 516-1 Performed By: #### L 500.2500, M100.2200, L400.0001, L100.0100 #### [facility] [address] [place], [address] Basic Metabolic Profile (BMP )on 03-16-2024 BUN/CRE 34.6 RATIO High 10-20 [facility] Comment on above: Performed By: #### L 500.2500, M100.2200, L400.0001, L100.0100 #### [facility] [address] [place], [address] CA,Total 8.7 mg/dL Normal 8.5-10.1 [facility] Comment on above: Performed By: #### L 500.2500, M100.2200, L400.0001, L100.0100 #### [facility] [address] [place], [address] Chloride [Moles/Vol] 102 mmol/L Normal 98-107 [facility] Comment on above: Performed By: #### L 500.2500, M100.2200, L400.0001, L100.0100 #### [facility] [address] [place], [address] CO2 [Moles/Vol] 32.0 mmol/L Normal 21.0-32.0 [facility] Comment on above: Performed By: #### L 500.2500, M100.2200, L400.0001, L100.0100 #### [facility] [address] [place], [address] Creatinine [Mass/Vol] 0.26 mg/dL Low 0.55-1.02 [facility] Comment on above: Result Comment: The validity of the calculated GFR GFRAA in patients over 70 years has not been determined. Clinical correlation is essential. Performed By: #### L 500.2500, M100.2200, L400.0001, L100.0100 #### [facility] [address] [place], [address] EST GFR - AA 357 mL/min Normal >60 [facility] Comment on above: Result Comment: Afri can Guamanian GFR Calc Performed By: #### L 500.2500, M100.2200, L400.0001, L100.0100 #### [facility] [address] [place], [address] GAP 3 Low 5-15 [facility] Comment on above: Performed By: #### L 500.2500, M100.2200, L400.0001, L100.0100 #### [facility] [address] [place], [address] GFR/1.73 sq M.predicted among non-blacks MDRD (S/P/Bld) [Vol rate/Area] 295 mL/min/{1.73_m2} Normal >60 [facility] Comment on above: Result Comment: Non- GFR Calc Performed By: #### L 500.2500, M100.2200, L400.0001, L100.0100 #### [facility] [address] [place], [address] Glucose [Mass/Vol] 105 mg/dL Normal 74-106 [facility] Comment on above: Result Comment: Fast ing Glucose result from 100 to 125 mg/dL suggests IMPAIRED HOMEOSTASIS per A.D.A. criteria. Performed By: #### L 500.2500, M100.2200, L400.0001, L100.0100 #### [facility] [address] [place], [address] Potassium [Moles/Vol] 3.7 mmol/L Normal 3.5-5.1 [facility] Comment on above: Performed By: #### L 500.2500, M100.2200, L400.0001, L100.0100 #### [facility] [address] [place], [address] Sodium [Moles/Vol] 138 mmol/L Normal 136-145 [facility] Comment on above: Performed By: #### L 500.2500, M100.2200, L400.0001, L100.0100 #### [facility] [address] [place], [address] Urea nitrogen [Mass/Vol] 9 mg/dL Normal 7-18 [facility] Comment on above: Performed By: #### L 500.2500, M100.2200, L400.0001, L100.0100 #### [facility] [address] [place], [address] CBC-Complete Blood Cnt No Di ffon 03-09-2024 Erythrocyte distribution width (RBC) [Ratio] 17.2 % High 11.6-14.6 [facility] Comment on above: Performed By: #### L 500.2500, M100.2200, L400.0001, L100.0100 #### [facility] [address] [place], [address] Hematocrit (Bld) [Volume fraction] 32.4 % Low 37-47 [facility] Comment on above: Performed By: #### L 500.2500, M100.2200, L400.0001, L100.0100 #### [facility] [address] [place], [address] Hemoglobin (Bld) [Mass/Vol] 9.5 g/dL Low 12.0-15.0 [facility] Comment on above: Performed By: #### L 500.2500, M100.2200, L400.0001, L100.0100 #### [facility] [address] [place], [address] MCH (RBC) [Entitic mass] 23.8 pg Low 27.0-32.0 [facility] Comment on above: Performed By: #### L 500.2500, M100.2200, L400.0001, L100.0100 #### [facility] [address] [place], [address] MCHC (RBC) [Mass/Vol] 29.3 g/dL Low 32-36 [facility] Comment on above: Performed By: #### L 500.2500, M100.2200, L400.0001, L100.0100 #### [facility] [address] [place], [address] MCV (RBC) [Entitic vol] 81.2 fL Normal 81-99 [facility] Comment on above: Performed By: #### L 500.2500, M100.2200, L400.0001, L100.0100 #### [facility] [address] [place], [address] Platelet mean volume (Bld) [Entitic vol] 9.4 fL Normal 6.2-12.0 [facility] Comment on above: Performed By: #### L 500.2500, M100.2200, L400.0001, L100.0100 #### [facility] [address] [place], [address] Platelets (Bld) [#/Vol] 318 10*3/uL Normal 150-450 [facility] Comment on above: Performed By: #### L 500.2500, M100.2200, L400.0001, L100.0100 #### [facility] [address] [place], [address] RBC (Bld) [#/Vol] 3.99 10*6/uL Low 4.2-5.4 [facility] Comment on above: Performed By: #### L 500.2500, M100.2200, L400.0001, L100.0100 #### [facility] [address] [place], [address] RDW SD 50.0 fl High 35.1-43.9 [facility] Comment on above: Performed By: #### L 500.2500, M100.2200, L400.0001, L100.0100 #### [facility] [address] [place], [address] WBC (Bld) [#/Vol] 6.6 10*3/uL Normal 4.4-11.0 [facility] Comment on above: Performed By: #### L 500.2500, M100.2200, L400.0001, L100.0100 #### [facility] [address] [place], [address] Comprehensive Metabolic Prof [facility] 03-09-2024 Albumin [Mass/Vol] 2.7 g/dL Low 3.2-5.0 [facility] Comment on above: Order Comment: N Performed By: #### L 500.2500, M100.2200, L400.0001, L100.0100 #### [facility] [address] [place], [address] Albumin/Globulin [Mass ratio] 0.6 {ratio} Low 0.9-2.4 [facility] Comment on above: Order Comment: N Performed By: #### L 500.2500, M100.2200, L400.0001, L100.0100 #### [facility] [address] [place], [address] ALK P 93 U/L Normal 45-117 [facility] Comment on above: Order Comment: N Performed By: #### L 500.2500, M100.2200, L400.0001, L100.0100 #### [facility] [address] [place], [address] ALT [Catalytic activity/Vol] 24 U/L Normal 13-56 [facility] Comment on above: Order Comment: N Performed By: #### L 500.2500, M100.2200, L400.0001, L100.0100 #### [facility] [address] [place], [address] AST [Catalytic activity/Vol] 14 U/L Low 15-37 [facility] Comment on above: Order Comment: N Performed By: #### L 500.2500, M100.2200, L400.0001, L100.0100 #### [facility] [address] [place], [address] Bilirubin [Mass/Vol] 0.20 mg/dL Normal 0.20-1.00 [facility] Comment on above: Order Comment: N Result Comment: For patients on eltrombopag therapy, use of Dimension Amanda TBIL is not recommended. Performed By: #### L 500.2500, M100.2200, L400.0001, L100.0100 #### [facility] [address] [place], [address] BUN/CRE 41.0 RATIO High 10-20 [facility] Comment on above: Order Comment: N Performed By: #### L 500.2500, M100.2200, L400.0001, L100.0100 #### [facility] [address] [place], [address] CA,Total 8.9 mg/dL Normal 8.5-10.1 [facility] Comment on above: Order Comment: N Performed By: #### L 500.2500, M100.2200, L400.0001, L100.0100 #### [facility] [address] [place], [address] Chloride [Moles/Vol] 104 mmol/L Normal 98-107 [facility] Comment on above: Order Comment: N Performed By: #### L 500.2500, M100.2200, L400.0001, L100.0100 #### [facility] [address] [place], [address] CO2 [Moles/Vol] 32.0 mmol/L Normal 21.0-32.0 [facility] Comment on above: Order Comment: N Performed By: #### L 500.2500, M100.2200, L400.0001, L100.0100 #### [facility] [address] [place], [address] Creatinine [Mass/Vol] 0.29 mg/dL Low 0.55-1.02 [facility] Comment on above: Order Comment: N Result Comment: The validity of the calculated GFR GFRAA in patients over 70 years has not been determined. Clinical correlation is essential. Performed By: #### L 500.2500, M100.2200, L400.0001, L100.0100 #### [facility] [address] [place], [address] EST GFR - AA 311 mL/min Normal >60 [facility] Comment on above: Order Comment: N Result Comment: Afri can Guamanian GFR Calc Performed By: #### L 500.2500, M100.2200, L400.0001, L100.0100 #### [facility] [address] [place], [address] GAP 5 Normal 5-15 [facility] Comment on above: Order Comment: N Performed By: #### L 500.2500, M100.2200, L400.0001, L100.0100 #### [facility] [address] [place], [address] GFR/1.73 sq M.predicted among non-blacks MDRD (S/P/Bld) [Vol rate/Area] 257 mL/min/{1.73_m2} Normal >60 [facility] Comment on above: Order Comment: N Result Comment: Non- GFR Calc Performed By: #### L 500.2500, M100.2200, L400.0001, L100.0100 #### [facility] [address] [place], [address] Globulin (S) [Mass/Vol] 4.5 g/dL High 2.2-4.2 [facility] Comment on above: Order Comment: N Performed By: #### L 500.2500, M100.2200, L400.0001, L100.0100 #### [facility] [address] [place], [address] Glucose [Mass/Vol] 123 mg/dL High 74-106 [facility] Comment on above: Order Comment: N Result Comment: Fast ing Glucose result from 100 to 125 mg/dL suggests IMPAIRED HOMEOSTASIS per A.D.A. criteria. Performed By: #### L 500.2500, M100.2200, L400.0001, L100.0100 #### [facility] [address] [place], [address] Potassium [Moles/Vol] 3.4 mmol/L Low 3.5-5.1 [facility] Comment on above: Order Comment: N Performed By: #### L 500.2500, M100.2200, L400.0001, L100.0100 #### [facility] [address] [place], [address] Sodium [Moles/Vol] 141 mmol/L Normal 136-145 [facility] Comment on above: Order Comment: N Performed By: #### L 500.2500, M100.2200, L400.0001, L100.0100 #### [facility] [address] [place], [address] T PROT 7.2 g/dL Normal 6.4-8.2 [facility] Comment on above: Order Comment: N Performed By: #### L 500.2500, M100.2200, L400.0001, L100.0100 #### [facility] [address] [place], [address] Urea nitrogen [Mass/Vol] 12 mg/dL Normal 7-18 [facility] Comment on above: Order Comment: N Performed By: #### L 500.2500, M100.2200, L400.0001, L100.0100 #### [facility] [address] [place], [address] T4 Free Directon 03-09-2024 T4 FREE DIRECT 1.26 ng/dL Normal 0.76-1.46 [facility] Comment on above: Order Comment: N Performed By: #### L 500.2500, M100.2200, L400.0001, L100.0100 #### [facility] [address] [place], [address] Thyroid Stim Hormone (TSH)on 03-09-2024 TSH 1.790 uIU/mL Normal 0.358-3.740 [facility] Comment on above: Order Comment: N Performed By: #### L 500.2500, M100.2200, L400.0001, L100.0100 #### [facility] [address] [place], [address] Vitamin D,25 Hydroxyon 03-09 Vitamin D 25-OH 37.0 ng/mL Normal [facility] Comment on above: Result Comment: Rosalba min D 25(OH) Status Range Deficiency <20 ng/mL (50nmol/L) Insufficiency 20 - 30 ng/mL (50 - 75 nmol/L) Sufficiency 30 - 100 ng/mL (75 - 250 nmol/L) Toxicity >100 ng/mL (>250 nmol/L) Performed By: #### L 500.2500, M100.2200, L400.0001, L100.0100 #### [facility] [place], [address] [facility] 03-04-2024 Calculi constituents See Below Normal [facility] Comment on above: Result Comment: The calculus has been analyzed and found to contain the following substances: Calcium Oxalate, Calcium Phosphate and Magnesium Ammonium Phosphate. Performed By: #### Z CALC #### [place] [address] Final Surgical Pathology Rep [facility] 03-03-2024 Final Surgical Pathology Report . Pathology Reports Accession: Collected Date/Time: Received Date/Time: Pathologist: [id number] 03/01/2024 12:30 EDT 03/01/2024 14:13 EDT CURRY BRADEN MD Final Surgical Pathology Report DIAGNOSIS: BLADDER STONES: - URINARY CALCULI, SEE GROSS DESCRIPTION FOR DETAILS CLINICAL INFORMATION: Procedure: CYSTOLITHOLAPAXY WITH THULIUM LASER ND CYSTOGRAM Preoperative Diagnosis: BLADDER STONES Postoperative Diagnosis: BLADDER STONES SPECIMEN: A BLADDER STONES GROSS DESCRIPTION: All parts labelled with patient name and [id number] Received in a fresh container labeled "bladder calculi" are 2 light ya stones measuring 0.7 cm greatest dimension and 0.9 x 0.8 cm greatest dimension. Gross examination only. Belkys Marr, Grossing Skull Splitter/ Dr. Matteo Vieira, Pathologist Performed by Belkys Marr MICROSCOPIC DESCRIPTION: The microscopic examination is performed, except in the case of Gross Only. Electronically Signed by TALIA BRADEN Sign out Date: 03/03/2024 16:25 Performing Lab: [facility], [address] [place] [address] Pathology Dept Disclaimer If ancillary studies were utilized, the following Laboratory Developed Test (LDT) disclaimer will apply: Under CLIA requirements, [facility] is qualified to perform high complexity testing. For all ancillary stains, positive and negative controls stain appropriately. Performance characteristics of immunohistochemical and chromogenic in-situ hybridization tests have been determined by [facility]. These tests are used for clinical purposes, They should not be regarded as investigational or for research. Normal [facility] XR FLUORO < 1HR TECH TIMEon 03-02-2024 XR FLUORO < 1HR TECH TIME ORIGINAL EXAMINATION: SPOT FLUOROSCOPIC IMAGES 03/01/2024 4:15 pm TECHNIQUE: Fluoroscopy was provided by the radiology department for procedure. Radiologist was not present during examination. FLUOROSCOPY DOSE AND TYPE: Total dose: 2.97 cumulative air kerma (mGy) Fluoro time: 0 minutes 5 seconds COMPARISON: Abdominal radiograph 02/28/2024 HISTORY: ORDERING SYSTEM PROVIDED HISTORY: Reason for Exam: cystogram/bladder stones Intra-procedural imaging. FINDINGS: 4 fluoroscopic images were obtained demonstrating guidance for cystogram. Limited distension of urinary bladder limits evaluation. Left vesicoureteral reflux is noted. IMPRESSION: Intra-procedural fluoroscopic spot images as above. Please see procedure report for further details. I have personally reviewed the images of this examination, and agree with the resident's findings and interpretation. Interpreted by: Corey Lomeli MD Preliminary Report By: Isreal Viera Electronically signed By Corey Lomeli MD Dictated Date: 03/02/2024 12:12:55 AM Prelim Date: 03/02/2024 12:14:26 AM Sign Date: 03/02/2024 3:50:53 AM Ordering Provider: CHERIE Martinez [facility] .Auto Diffon 03-01-2024 Basophil, Absolute 0.1 10 3/mcL Normal 0.0-0.3 [facility] Comment on above: Performed By: #### A DAPHNIE, CBC, BMP, ADIFF, GFR #### [address] [address] Basophils/100 WBC (Bld) 0.7 % Normal 0.0-2.5 [facility] Comment on above: Performed By: #### A DAPHNEI, CBC, BMP, ADIFF, GFR #### [address] [address] Eosinophil, Absolute 0.2 10 3/mcL Normal 0.0-0.7 [facility] Comment on above: Performed By: #### A DAPHNIE, CBC, BMP, ADIFF, GFR #### [address] [address] Eosinophils/100 WBC (Bld) 2.3 % Normal 0.0-6.0 [facility] Comment on above: Performed By: #### A DAPHNIE, CBC, BMP, ADIFF, GFR #### [address] [address] Lymphocyte, Absolute 2.5 10 3/mcL Normal 0.9-4.3 [facility] Comment on above: Performed By: #### A DAPHNIE, CBC, BMP, ADIFF, GFR #### [address] [address] Lymphocytes/100 WBC (Bld) 30.7 % Normal 20.0-40.0 [facility] Comment on above: Performed By: #### A DAPHNIE, CBC, BMP, ADIFF, GFR #### [address] [address] Monocyte, Absolute 0.5 10 3/mcL Normal 0.1-1.4 [facility] Comment on above: Performed By: #### A DAPHNIE, CBC, BMP, ADIFF, GFR #### [address] [address] Monocytes/100 WBC (Bld) 6.7 % Normal 2.0-13.0 [facility] Comment on above: Performed By: #### A DAPHNIE, CBC, BMP, ADIFF, GFR #### [address] [address] Neutrophils/100 WBC (Bld) 59.6 % Normal 50.0-75.0 [facility] Comment on above: Performed By: #### A DAPHNIE, CBC, BMP, ADIFF, GFR #### [address] [address] .GFRon 03-01-2024 GFR Non- >60 Normal [facility] Comment on above: Result Comment: GFR Population mean for , Non- Americans Ages 20-29 = 116 mL/min/1.73 sq.m. Ages 30-39 = 107 mL/min/1.73 sq.m. Ages 40-49 = 99 mL/min/1.73 sq.m. Ages 50-59 = 93 mL/min/1.73 sq.m. Ages 60-69 = 85 mL/min/1.73 sq.m. Ages 70+ = 75 mL/min/1.73 sq.m. Chronic Kidney Disease: Less than 60 mL/min/1.73 square meters End Stage Renal Disease: Less than 15 mL/min/1.73 square meters Performed By: #### A DAPHNIE, CBC, BMP, ADIFF, GFR #### [address] [address] GFR >60 Normal [facility] Comment on above: Result Comment: GFR Population mean for , Non- Americans Ages 20-29 = 116 mL/min/1.73 sq.m. Ages 30-39 = 107 mL/min/1.73 sq.m. Ages 40-49 = 99 mL/min/1.73 sq.m. Ages 50-59 = 93 mL/min/1.73 sq.m. Ages 60-69 = 85 mL/min/1.73 sq.m. Ages 70+ = 75 mL/min/1.73 sq.m. Chronic Kidney Disease: Less than 60 mL/min/1.73 square meters End Stage Renal Disease: Less than 15 mL/min/1.73 square meters Performed By: #### A DAPHNIE, CBC, BMP, ADIFF, GFR #### [address] [address] .NEUABSon 03-01-2024 Neutrophil, Absolute 4.8 10 3/mcL Normal 2.3-8.1 [facility] Comment on above: Performed By: #### A DAPHNIE, CBC, BMP, ADIFF, GFR #### [address] [address] [facility] BUN/Creatinine Ratio 59.1 ratio High 10.0-22.0 [facility] Comment on above: Order Comment: hemol yzed 03/01/2024 08:54:15 EDJoel landeros Performed By: #### A DAPHNIE, CBC, BMP, ADIFF, GFR #### [address] [address] Calcium [Mass/Vol] 9.3 mg/dL Normal 8.7-10.4 [facility] Comment on above: Order Comment: hemol yzed 03/01/2024 08:54:15 EDT leti Performed By: #### A DAPHNIE, CBC, BMP, ADIFF, GFR #### [address] [address] Chloride [Moles/Vol] 103 mmol/L Normal 98-110 [facility] Comment on above: Order Comment: hemol yzed 03/01/2024 08:54:15 EDT leti Performed By: #### A DAPHNIE, CBC, BMP, ADIFF, GFR #### [address] [address] CO2 [Moles/Vol] 36 mmol/L High 22-32 [facility] Comment on above: Order Comment: hemol yzed 03/01/2024 08:54:15 EDT leti Performed By: #### A DAPHNIE, CBC, BMP, ADIFF, GFR #### [address] [address] Creatinine [Mass/Vol] 0.22 mg/dL Low 0.50-1.20 [facility] Comment on above: Order Comment: hemol yzed 03/01/2024 08:54:15 EDT leti Result Comment: Test ing performed on [employer] analyzer using enzymatic creatinine methodology. Performed By: #### A DAPHNIE, CBC, BMP, ADIFF, GFR #### [address] [address] Electrolyte Balance 1.0 mEq/L Low 4.0-15.0 [facility] Comment on above: Order Comment: hemol yzed 03/01/2024 08:54:15 EDT leti Performed By: #### A DAPHNIE, CBC, BMP, ADIFF, GFR #### [address] [address] Glucose [Mass/Vol] 111 mg/dL High 70-110 [facility] Comment on above: Order Comment: hemol yzed 03/01/2024 08:54:15 EDT leti Performed By: #### A DAPHNIE, CBC, BMP, ADIFF, GFR #### [address] [address] Potassium [Moles/Vol] 3.8 mmol/L Normal 3.5-5.0 [facility] Comment on above: Order Comment: hemol yzed 03/01/2024 08:54:15 EDT leti Performed By: #### A DAPHNIE, CBC, BMP, ADIFF, GFR #### [address] [address] Sodium [Moles/Vol] 140 mmol/L Normal 136-145 [facility] Comment on above: Order Comment: hemol yzed 03/01/2024 08:54:15 EDT leti Performed By: #### A DAPHNIE, CBC, BMP, ADIFF, GFR #### [place] [id number] Urea nitrogen [Mass/Vol] 13.0 mg/dL Normal 8.0-22.0 [facility] Comment on above: Order Comment: hemol yzed 03/01/2024 08:54:15 EDT leti Performed By: #### A DAPHNIE, CBC, BMP, ADIFF, GFR #### [place] [id number] CBCon 03-01-2024 Erythrocyte distribution width (RBC) [Ratio] 17.3 % High 11.5-15.5 [facility] Comment on above: Performed By: #### A DAPHNIE, CBC, BMP, ADIFF, GFR #### [address] [address] Hematocrit (Bld) [Volume fraction] 33.0 % Low 34.0-46.0 [facility] Comment on above: Performed By: #### A DAPHNIE, CBC, BMP, ADIFF, GFR #### [address] [address] Hgb 10.6 G/dL Low 12.0-16.0 [facility] Comment on above: Performed By: #### A DAPHNIE, CBC, BMP, ADIFF, GFR #### [address] [address] MCH (RBC) [Entitic mass] 24.8 pg Low 27.0-33.0 [facility] Comment on above: Performed By: #### A DAPHNIE, CBC, BMP, ADIFF, GFR #### [address] [address] MCHC 32.1 G/dL Normal 32.0-36.0 [facility] Comment on above: Performed By: #### A DAPHNIE, CBC, BMP, ADIFF, GFR #### [address] [address] MCV (RBC) [Entitic vol] 77.1 fL Low 80.0-99.0 [facility] Comment on above: Performed By: #### A DAPHNIE, CBC, BMP, ADIFF, GFR #### [address] [address] Platelet 304 10 3/mcL Normal 150-450 [facility] Comment on above: Performed By: #### A DAPHNIE, CBC, BMP, ADIFF, GFR #### [address] [address] Platelet mean volume (Bld) [Entitic vol] 7.4 fL Normal 6.6-10.5 [facility] Comment on above: Performed By: #### A DAPHNIE, CBC, BMP, ADIFF, GFR #### [address] [address] RBC 4.28 10 6/mcL Normal 4.10-5.30 [facility] Comment on above: Performed By: #### A DAPHNIE, CBC, BMP, ADIFF, GFR #### [address] [address] WBC 8.1 10 3/mcL Normal 4.5-10.8 [facility] Comment on above: Performed By: #### A DAPHNIE, CBC, BMP, ADIFF, GFR #### [address] [address] LABORATORYOrdered By: SYSTEM SYSTEM on 03-01-2024 Calcium [Mass/Vol] 9.3 mg/dL Normal 8.7 - 10. 4 mg/dL AH ADM SS Chloride [Moles/Vol] 103 mmol/L Normal 98 - 11 0 mEq/L AH ADM SS CO2 [Moles/Vol] 36 mmol/L High 22 - 32 mEq/L AH ADM SS Creatinine [Mass/Vol] 0.22 mg/dL Low 0.50 - 1.20 mg/dL ADM SS Comment on above: Interpretive Data: T esting performed on [employer] analyzer using enzymatic creatinine methodology. Electrolyte Balance 1.0 mEq/L Low 4.0 - 15 .0 mEq/L ADM SS GFR/1.73 sq M.predicted among blacks MDRD (S/P/Bld) [Vol rate/Area] ml/min/1.73sqm Invalid Interpretation Code [employer] S Comment on above: Interpretive Data: GFR Population mean for , Non- Americans Ages 20-29 = 116 mL/min/1.73 sq.m. Ages 30-39 = 107 mL/min/1.73 sq.m. Ages 40-49 = 99 mL/min/1.73 sq.m. Ages 50-59 = 93 mL/min/1.73 sq.m. Ages 60-69 = 85 mL/min/1.73 sq.m. Ages 70+ = 75 mL/min/1.73 sq.m. Chronic Kidney Disease: Less than 60 mL/min/1.73 square meters End Stage Renal Disease: Less than 15 mL/min/1.73 square meters GFR/1.73 sq M.predicted among non-blacks MDRD (S/P/Bld) [Vol rate/Area] ml/min/1.73sqm Invalid Interpretation Code [employer] S Comment on above: Interpretive Data: GFR Population mean for , Non- Americans Ages 20-29 = 116 mL/min/1.73 sq.m. Ages 30-39 = 107 mL/min/1.73 sq.m. Ages 40-49 = 99 mL/min/1.73 sq.m. Ages 50-59 = 93 mL/min/1.73 sq.m. Ages 60-69 = 85 mL/min/1.73 sq.m. Ages 70+ = 75 mL/min/1.73 sq.m. Chronic Kidney Disease: Less than 60 mL/min/1.73 square meters End Stage Renal Disease: Less than 15 mL/min/1.73 square meters Glucose [Mass/Vol] 111 mg/dL High 70 - 110 mg/dL ADM SS Potassium [Moles/Vol] 3.8 mmol/L Normal 3.5 - 5.0 mEq/L ADM SS Sodium [Moles/Vol] 140 mmol/L Normal 136 - 145 mEq/L AH ADM SS Urea nitrogen [Mass/Vol] 13.0 mg/dL Normal 8.0 - 22.0 mg/dL AH ADM SS Urea nitrogen/Creatinine [Mass ratio] 59.1 ratio High 10.0 - 22.0 ratio AH ADM SS Basophils (Bld) [#/Vol] 0.1 103/mcL Normal 0.0 - 0.3 10^3/mcL AH Workflow SS Basophils/100 WBC (Bld) 0.7 % Normal 0.0 - 2.5 % AH Workflow SS Eosinophils (Bld) [#/Vol] 0.2 103/mcL Normal 0.0 - 0.7 10^3/mcL AH Workflow SS Eosinophils/100 WBC (Bld) 2.3 % Normal 0.0 - 6.0 % AH Workflow SS Erythrocyte distribution width (RBC) [Ratio] 17.3 % High 11.5 - 15.5 % AH Workflow SS Hematocrit (Bld) [Volume fraction] 33.0 % Low 34.0 - 46.0 % AH Workflow SS Hemoglobin (Bld) [Mass/Vol] 10.6 G/dL Low 12.0 - 16.0 G/dL AH Workflow SS Lymphocytes (Bld) [#/Vol] 2.5 103/mcL Normal 0.9 - 4.3 10^3/mcL AH Workflow SS Lymphocytes/100 WBC (Bld) 30.7 % Normal 20.0 - 40.0 % AH Workflow SS MCH (RBC) [Entitic mass] 24.8 pg Low 27.0 - 33.0 pg AH Workflow SS MCHC 32.1 G/dL Normal 32.0 - 36.0 G/dL AH Workflow SS MCV (RBC) [Entitic vol] 77.1 fL Low 80.0 - 99.0 fL AH Workflow SS Monocytes (Bld) [#/Vol] 0.5 103/mcL Normal 0.1 - 1.4 10^3/mcL AH Workflow SS Monocytes/100 WBC (Bld) 6.7 % Normal 2.0 - 13.0 % AH Workflow SS Neutrophils (Bld) [#/Vol] 4.8 103/mcL Normal 2.3 - 8.1 10^3/mcL AH Workflow SS Neutrophils/100 WBC (Bld) 59.6 % Normal 50.0 - 75.0 % AH Workflow SS Platelet mean volume (Bld) [Entitic vol] 7.4 fL Normal 6.6 - 10.5 fL AH Workflow SS Platelets (Bld) [#/Vol] 304 103/mcL Normal 150 - 450 10^3/mcL AH Workflow SS RBC (Bld) [#/Vol] 4.28 106/mcL Normal 4.10 - 5.3 0 10^6/mcL AH Workflow SS WBC (Bld) [#/Vol] 8.1 103/mcL Normal 4.5 - 10.8 10^3/mcL AH Workflow SS XR ABDOMEN APon 03-01-2024 XR ABDOMEN AP ORIGINAL EXAMINATION: 2 SUPINE XRAY VIEW(S) OF THE ABDOMEN 03/01/2024 8:15 am COMPARISON: Abdominal x-ray January 27, 2024 CT abdomen and pelvis November 30, 2023 HISTORY: ORDERING SYSTEM PROVIDED HISTORY: Reason for Exam: bladder stones FINDINGS: This exam is limited due to body habitus and patient positioning. There is paucity of gas. Pelvic phleboliths are seen. The previously visualized large bladder uroliths are not in the field of view on this exam. No acute osseous abnormality. IMPRESSION: Limited exam with paucity of bowel gas. Previously visualized bladder uroliths were not in the field of view of this exam. I have personally reviewed the images of this examination and agree with the resident's findings and interpretation. Interpreted by: Niko Rendon DO Preliminary Report By: Gadiel Brito Electronically signed By Niko Rendon DO Dictated Date: 03/01/2024 1:46:11 PM Prelim Date: 03/01/2024 2:10:42 PM Sign Date: 03/01/2024 2:10:42 PM Ordering Provider: CHERIE RENEE [facility] MAIN Basic Metabolic Profile (BMP )on 02-24-2024 BUN/CRE 43.2 RATIO High 10-20 [facility] Comment on above: Performed By: #### L 500.2500, M100.2200, L400.0001, L100.0100 #### [facility] [address] [place], [address] CA,Total 9.3 mg/dL Normal 8.5-10.1 [facility] Comment on above: Performed By: #### L 500.2500, M100.2200, L400.0001, L100.0100 #### [facility] [address] [place], [address] Chloride [Moles/Vol] 102 mmol/L Normal 98-107 [facility] Comment on above: Performed By: #### L 500.2500, M100.2200, L400.0001, L100.0100 #### [facility] [address] [place], [address] CO2 [Moles/Vol] 32.0 mmol/L Normal 21.0-32.0 [facility] Comment on above: Performed By: #### L 500.2500, M100.2200, L400.0001, L100.0100 #### [facility] [address] [place], [address] Creatinine [Mass/Vol] 0.32 mg/dL Low 0.55-1.02 [facility] Comment on above: Result Comment: The validity of the calculated GFR GFRAA in patients over 70 years has not been determined. Clinical correlation is essential. Performed By: #### L 500.2500, M100.2200, L400.0001, L100.0100 #### [facility] [address] [place], [address] EST GFR - AA 277 mL/min Normal >60 [facility] Comment on above: Result Comment: Afri can Guamanian GFR Calc Performed By: #### L 500.2500, M100.2200, L400.0001, L100.0100 #### [facility] [address] [place], [address] GAP 3 Low 5-15 [facility] Comment on above: Performed By: #### L 500.2500, M100.2200, L400.0001, L100.0100 #### [facility] [address] [place], [address] GFR/1.73 sq M.predicted among non-blacks MDRD (S/P/Bld) [Vol rate/Area] 229 mL/min/{1.73_m2} Normal >60 [facility] Comment on above: Result Comment: Non- GFR Calc Performed By: #### L 500.2500, M100.2200, L400.0001, L100.0100 #### [facility] [address] [place], [address] Glucose [Mass/Vol] 90 mg/dL Normal 74-106 [facility] Comment on above: Performed By: #### L 500.2500, M100.2200, L400.0001, L100.0100 #### [facility] [address] [place], [address] Potassium [Moles/Vol] 4.2 mmol/L Normal 3.5-5.1 [facility] Comment on above: Performed By: #### L 500.2500, M100.2200, L400.0001, L100.0100 #### [facility] [address] [place], [address] Sodium [Moles/Vol] 137 mmol/L Normal 136-145 [facility] Comment on above: Performed By: #### L 500.2500, M100.2200, L400.0001, L100.0100 #### [facility] [address] [place], [address] Urea nitrogen [Mass/Vol] 14 mg/dL Normal 7-18 [facility] Comment on above: Performed By: #### L 500.2500, M100.2200, L400.0001, L100.0100 #### [facility] [address] [place], [address] Basic Metabolic Profile (BMP )on 02-17-2024 BUN/CRE 26.4 RATIO High 10-20 [facility] Comment on above: Order Comment: 517.2 Performed By: #### L 500.2500, M100.2200, L400.0001, L100.0100 #### [facility] [address] [place], [address] CA,Total 8.8 mg/dL Normal 8.5-10.1 [facility] Comment on above: Order Comment: 517.2 Performed By: #### L 500.2500, M100.2200, L400.0001, L100.0100 #### [facility] [address] [place], [address] Chloride [Moles/Vol] 101 mmol/L Normal 98-107 [facility] Comment on above: Order Comment: 517.2 Performed By: #### L 500.2500, M100.2200, L400.0001, L100.0100 #### [facility] [address] [place], [address] CO2 [Moles/Vol] 32.0 mmol/L Normal 21.0-32.0 [facility] Comment on above: Order Comment: 517.2 Performed By: #### L 500.2500, M100.2200, L400.0001, L100.0100 #### [facility] [address] [place], [address] Creatinine [Mass/Vol] 0.42 mg/dL Low 0.55-1.02 [facility] Comment on above: Order Comment: 517.2 Result Comment: The validity of the calculated GFR GFRAA in patients over 70 years has not been determined. Clinical correlation is essential. Performed By: #### L 500.2500, M100.2200, L400.0001, L100.0100 #### [facility] [address] [place], [address] EST GFR - AA 208 mL/min Normal >60 [facility] Comment on above: Order Comment: 517.2 Result Comment: Afri can Guamanian GFR Calc Performed By: #### L 500.2500, M100.2200, L400.0001, L100.0100 #### [facility] [address] [place], [address] GAP 6 Normal 5-15 [facility] Comment on above: Order Comment: 517.2 Performed By: #### L 500.2500, M100.2200, L400.0001, L100.0100 #### [facility] [address] [place], [address] GFR/1.73 sq M.predicted among non-blacks MDRD (S/P/Bld) [Vol rate/Area] 172 mL/min/{1.73_m2} Normal >60 [facility] Comment on above: Order Comment: 517.2 Result Comment: Non- GFR Calc Performed By: #### L 500.2500, M100.2200, L400.0001, L100.0100 #### [facility] [address] [place], [address] Glucose [Mass/Vol] 166 mg/dL High 74-106 [facility] Comment on above: Order Comment: 517.2 Result Comment: Fast ing Glucose result greater than or equal to 126 mg/dL suggests DIABETES MELLITUS per A.D.A. criteria. Performed By: #### L 500.2500, M100.2200, L400.0001, L100.0100 #### [facility] [address] [place], [address] Potassium [Moles/Vol] 3.2 mmol/L Low 3.5-5.1 [facility] Comment on above: Order Comment: 517.2 Performed By: #### L 500.2500, M100.2200, L400.0001, L100.0100 #### [facility] [address] [place], [address] Sodium [Moles/Vol] 139 mmol/L Normal 136-145 [facility] Comment on above: Order Comment: 517.2 Performed By: #### L 500.2500, M100.2200, L400.0001, L100.0100 #### [facility] [address] [place], [address] Urea nitrogen [Mass/Vol] 11 mg/dL Normal 7-18 [facility] Comment on above: Order Comment: 517.2 Performed By: #### L 500.2500, M100.2200, L400.0001, L100.0100 #### [facility] [address] [place], [address] Basic Metabolic Profile (BMP )on 02-16-2024 BUN/CRE 26.5 RATIO High 10-20 [facility] Comment on above: Order Comment: 517.2 Performed By: #### L 500.2500, M100.2200, L400.0001, L100.0100 #### [facility] [address] [place], [address] CA,Total 9.0 mg/dL Normal 8.5-10.1 [facility] Comment on above: Order Comment: 517.2 Performed By: #### L 500.2500, M100.2200, L400.0001, L100.0100 #### [facility] [address] [place], [address] Chloride [Moles/Vol] 98 mmol/L Normal 98-107 [facility] Comment on above: Order Comment: 517.2 Performed By: #### L 500.2500, M100.2200, L400.0001, L100.0100 #### [facility] [address] [place], [address] CO2 [Moles/Vol] 31.0 mmol/L Normal 21.0-32.0 [facility] Comment on above: Order Comment: 517.2 Performed By: #### L 500.2500, M100.2200, L400.0001, L100.0100 #### [facility] [address] [place], [address] Creatinine [Mass/Vol] 0.34 mg/dL Low 0.55-1.02 [facility] Comment on above: Order Comment: 517.2 Result Comment: The validity of the calculated GFR GFRAA in patients over 70 years has not been determined. Clinical correlation is essential. Performed By: #### L 500.2500, M100.2200, L400.0001, L100.0100 #### [facility] [address] [place], [address] EST GFR - AA 262 mL/min Normal >60 [facility] Comment on above: Order Comment: 517.2 Result Comment: Afri can Guamanian GFR Calc Performed By: #### L 500.2500, M100.2200, L400.0001, L100.0100 #### [facility] [address] [place], [address] GAP 6 Normal 5-15 [facility] Comment on above: Order Comment: 517.2 Performed By: #### L 500.2500, M100.2200, L400.0001, L100.0100 #### [facility] [address] [place], [address] GFR/1.73 sq M.predicted among non-blacks MDRD (S/P/Bld) [Vol rate/Area] 217 mL/min/{1.73_m2} Normal >60 [facility] Comment on above: Order Comment: 517.2 Result Comment: Non- GFR Calc Performed By: #### L 500.2500, M100.2200, L400.0001, L100.0100 #### [facility] [address] [place], [address] Glucose [Mass/Vol] 105 mg/dL Normal 74-106 [facility] Comment on above: Order Comment: 517.2 Result Comment: Fast ing Glucose result from 100 to 125 mg/dL suggests IMPAIRED HOMEOSTASIS per A.D.A. criteria. Performed By: #### L 500.2500, M100.2200, L400.0001, L100.0100 #### [facility] [address] [place], [address] Potassium [Moles/Vol] 3.6 mmol/L Normal 3.5-5.1 [facility] Comment on above: Order Comment: 517.2 Performed By: #### L 500.2500, M100.2200, L400.0001, L100.0100 #### [facility] [address] [place], [address] Sodium [Moles/Vol] 135 mmol/L Low 136-145 [facility] Comment on above: Order Comment: 517.2 Performed By: #### L 500.2500, M100.2200, L400.0001, L100.0100 #### [facility] [address] [place], [address] Urea nitrogen [Mass/Vol] 9 mg/dL Normal 7-18 [facility] Comment on above: Order Comment: 517.2 Performed By: #### L 500.2500, M100.2200, L400.0001, L100.0100 #### [facility] [address] [place], [address] CBC-Complete Blood Cnt No Di ffon 02-16-2024 Erythrocyte distribution width (RBC) [Ratio] 16.2 % High 11.6-14.6 [facility] Comment on above: Order Comment: 517.2 Performed By: #### L 500.2500, M100.2200, L400.0001, L100.0100 #### [facility] [address] [place], [address] Hematocrit (Bld) [Volume fraction] 34.7 % Low 37-47 [facility] Comment on above: Order Comment: 517.2 Performed By: #### L 500.2500, M100.2200, L400.0001, L100.0100 #### [facility] [address] [place], [address] Hemoglobin (Bld) [Mass/Vol] 10.3 g/dL Low 12.0-15.0 [facility] Comment on above: Order Comment: 517.2 Performed By: #### L 500.2500, M100.2200, L400.0001, L100.0100 #### [facility] [address] [place], [address] MCH (RBC) [Entitic mass] 23.7 pg Low 27.0-32.0 [facility] Comment on above: Order Comment: 517.2 Performed By: #### L 500.2500, M100.2200, L400.0001, L100.0100 #### [facility] [address] [place], [address] MCHC (RBC) [Mass/Vol] 29.7 g/dL Low 32-36 [facility] Comment on above: Order Comment: 517.2 Performed By: #### L 500.2500, M100.2200, L400.0001, L100.0100 #### [facility] [address] [place], [address] MCV (RBC) [Entitic vol] 80.0 fL Low 81-99 [facility] Comment on above: Order Comment: 517.2 Performed By: #### L 500.2500, M100.2200, L400.0001, L100.0100 #### [facility] [address] [place], [address] Platelet mean volume (Bld) [Entitic vol] 9.3 fL Normal 6.2-12.0 [facility] Comment on above: Order Comment: 517.2 Performed By: #### L 500.2500, M100.2200, L400.0001, L100.0100 #### [facility] [address] [place], [address] Platelets (Bld) [#/Vol] 281 10*3/uL Normal 150-450 [facility] Comment on above: Order Comment: 517.2 Performed By: #### L 500.2500, M100.2200, L400.0001, L100.0100 #### [facility] [address] [place] [place], [address] RBC (Bld) [#/Vol] 4.34 10*6/uL Normal 4.2-5.4 [facility] Comment on above: Order Comment: 517.2 Performed By: #### L 500.2500, M100.2200, L400.0001, L100.0100 #### [facility] [address] [place], [address] RDW SD 46.5 fl High 35.1-43.9 [facility] Comment on above: Order Comment: 517.2 Performed By: #### L 500.2500, M100.2200, L400.0001, L100.0100 #### [facility] [address] [place] [place], [address] WBC (Bld) [#/Vol] 5.0 10*3/uL Normal 4.4-11.0 [facility] Comment on above: Order Comment: 517.2 Performed By: #### L 500.2500, M100.2200, L400.0001, L100.0100 #### [facility] [address] [place] [place], [address] [facility] Sp[facility] Inj on 01-28-2024 [facility] Imaging Services [address] [place] [address] [facility] MR#: [id number] Acct: [id number] Name: HENRIK REED Rep #: [id number] : 1975 F 49 From: Keven Mckoy MD PCP: Dr. Lavon Vicente MD Status: [facility] Study: [facility] for Spine Inj Date of Exam: Exam# [id number] Ordering [place]: [place] [id number] HISTORY: CAUDAL BLOCK COMPARISON: None TECHNIQUE: A total of 1 fluoroscopic images were saved without a radiologist present. FINDINGS: Total fluoroscopy time: 3.6 seconds Cumulative air kerma: 4.32 mGy RAD/Fluor Guidance for Spine Inj IMPRESSION: Fluoroscopic assistance for caudal block. Please see operative report for additional information. Electronically Signed: Keven Mckoy MD at 8:20 EDT , CC: Dr. Kenia Hammond MD; Dr. Lavon Vicente MD Floor Assembler: Signed Normal [facility] US RENALon 01-27-2024 US RENAL ORIGINAL EXAMINATION: ULTRASOUND OF THE KIDNEYS 01/27/2024 9:08 am COMPARISON: CT abdomen pelvis 07/01/2023. HISTORY: ORDERING SYSTEM PROVIDED HISTORY: Reason for Exam: right hydronephrosis All images are recorded and archived. FINDINGS: Right and left kidneys measured 2.8 x 4.6 x 5.8 cm, and 11.0 x 5.6 x 5.5 cm respectively. Kidneys demonstrate normal cortical echogenicity. No hydronephrosis or intrarenal stones. No focal lesions. Urinary bladder drained via functioning Mccarthy catheter. Bladder mucosa is not diagnostically imaged. IMPRESSION: 1. Normal ultrasound of the kidneys. 2. Urinary bladder drained via functioning Mccarthy catheter. Interpreted by: Niko Rendon DO Preliminary Report By: Niko Rendon DO Electronically signed By Niko Rendon DO Dictated Date: 01/27/2024 1:15:11 PM Prelim Date: 01/27/2024 1:20:23 PM Sign Date: 01/27/2024 1:20:23 PM Ordering Provider: ISREAL PAGE [facility] ([place]) XR ABDOMEN APon 01-27-2024 XR ABDOMEN AP ORIGINAL EXAMINATION: ONE SUPINE XRAY VIEW(S) OF THE ABDOMEN01/27/2024 9:42 am ABDOMEN 1 VIEW/KUB EXAM DESCRIPTION: COMPARISON: CT abdomen pelvis July 01, 2023 HISTORY: ORDERING SYSTEM PROVIDED HISTORY: Reason for Exam: Bladder stones FINDINGS: Examination is limited due to patient body habitus and positioning. 2 supine views of the abdomen and pelvis were obtained. Bowel gas pattern is nonobstructed without dilatation, air-fluid level, or free air. Large stool burden is present. Large calcifications partially obscured by overlying stool near the pubic symphysis... The osseous structures are unremarkable. IMPRESSION: Limited exam. Nonspecific nonobstructed bowel gas pattern. Large stool burden. Multiple large bladder uroliths partially obscured by stool. Interpreted by: Renzo Sheridan MD Preliminary Report By: Renzo Sheridan MD Electronically signed By Renzo Sheridan MD Dictated Date: 01/27/2024 10:46:52 PM Prelim Date: 01/27/2024 10:48:47 PM Sign Date: 01/27/2024 10:48:47 PM Ordering Provider: ISREAL PAGE [facility] ([place]) Basophil percentageOrdered B y: Lavon Vicente on 10-21-2023 Basophil percentage 9.4 g/dL 12.0-15.0 [facility] Basophil percentage 137 mg/dL 74-106 [facility] Basophil percentage 7.5 g/dL 6.4-8.2 [facility] Basophil percentage 0.20 mg/dL 0.20-1.00 [facility] Basophil percentage 138 mmol/L 136-145 [facility] Basophil percentage 3.4 mmol/L 3.5-5.1 [facility] Basophil percentage 101 mmol/L 98-107 [facility] Basophils (Bld) [#/Vol] 8.3 10*3/uL 4.4-11.0 [facility] Determination of erythrocyte mean corpuscular volume (MCV)Ordered By: Lavon Vicente on 10-21-2023 MCV (RBC) [Entitic vol] 83.5 fL 81-99 [facility] Erythrocyte distribution wid th ratioOrdered By: Lavon Vicente on 10-21-2023 Erythrocyte distribution width (RBC) [Ratio] 15.6 % 11.6-14.6 [facility] Erythrocyte distribution wid th standard deviationOrdered By: Lavon Vicente on 10-21-2023 Erythrocyte distribution width (RBC) [Entitic vol] 47.5 fL 35.1-43.9 [facility] Hematocrit Auto (Bld) [Volum e fraction]Ordered By: Lavon Vicente on 10-21-2023 Hematocrit (Bld) [Volume fraction] 31.3 % 37-47 [facility] No Panel InformationOrdered By: Lavon Vicente on 10-21-2023 25.1 pg 27.0-32.0 [facility] 30.0 g/dL 32-36 [facility] 293 K/mm3 150-450 [facility] 9.3 fl 6.2-12.0 [facility] 304 mL/min >60 [facility] 367 mL/min >60 [facility] 47.2 RATIO 10-20 [facility] 4.8 g/dL 2.2-4.2 [facility] 0.6 RATIO 0.9-2.4 [facility] 114 U/L 45-117 [facility] 20 U/L 13-56 [facility] 34.0 mmol/L 21.0-32.0 [facility] RBC Auto (Bld) [#/Vol]Ordere d By: Lavon Vicente on 10-21-2023 RBC (Bld) [#/Vol] 3.75 10*6/uL 4.2-5.4 [facility] Serum or plasma calcium miguel angel urement (mass/volume)Ordered By: Lavon Vicente on 10-21-2023 Calcium [Mass/Vol] 8.5 mg/dL 8.5-10.1 [facility] Serum or plasma creatinine m easurement (mass/volume)Ordered By: Lavon Vicente on 10-21-2023 Creatinine [Mass/Vol] 0.25 mg/dL 0.55-1.02 [facility] Serum or plasma urea nitroge n measurement (mass/volume)Ordered By: Lavon Vicente on 10-21-2023 Urea nitrogen [Mass/Vol] 12 mg/dL 7-18 [facility] Thin prep Papanicolaou smear with manual screeningOrdered By: Lavon Vicente on 10-21-2023 Thin prep Papanicolaou smear with manual screening 2.7 g/dL 3.2-5.0 [facility] Thin prep Papanicolaou smear with manual screening 14 U/L 15-37 [facility] Thin prep Papanicolaou smear with manual screening 3 5-15 [facility] Basophil percentageOrdered B y: Lavon Vicente on 10-15-2023 Basophil percentage 10.2 g/dL 12.0-15.0 [facility] Basophil percentage 126 mg/dL 74-106 [facility] Basophil percentage 7.8 g/dL 6.4-8.2 [facility] Basophil percentage 0.20 mg/dL 0.20-1.00 [facility] Basophil percentage 137 mmol/L 136-145 [facility] Basophil percentage 4.0 mmol/L 3.5-5.1 [facility] Basophil percentage 100 mmol/L 98-107 [facility] Basophils (Bld) [#/Vol] 8.8 10*3/uL 4.4-11.0 [facility] Determination of erythrocyte mean corpuscular volume (MCV)Ordered By: Laovn Vicente on 10-15-2023 MCV (RBC) [Entitic vol] 81.8 fL 81-99 [facility] Erythrocyte distribution wid th ratioOrdered By: Lavon Vicente on 10-15-2023 Erythrocyte distribution width (RBC) [Ratio] 15.5 % 11.6-14.6 [facility] Erythrocyte distribution wid th standard deviationOrdered By: Lavon Vicente on 10-15-2023 Erythrocyte distribution width (RBC) [Entitic vol] 46.4 fL 35.1-43.9 [facility] Hematocrit Auto (Bld) [Volum e fraction]Ordered By: Lavon Vicente on 10-15-2023 Hematocrit (Bld) [Volume fraction] 33.8 % 37-47 [facility] No Panel InformationOrdered By: Lavon Vicente on 10-15-2023 24.7 pg 27.0-32.0 [facility] 30.2 g/dL 32-36 [facility] 301 K/mm3 150-450 [facility] 9.4 fl 6.2-12.0 [facility] 253 mL/min >60 [facility] 306 mL/min >60 [facility] 50.3 RATIO 10-20 [facility] 4.9 g/dL 2.2-4.2 [facility] 0.6 RATIO 0.9-2.4 [facility] 121 U/L 45-117 [facility] 27 U/L 13-56 [facility] 35.0 mmol/L 21.0-32.0 [facility] RBC Auto (Bld) [#/Vol]Ordere d By: Lavon Vicente on 10-15-2023 RBC (Bld) [#/Vol] 4.13 10*6/uL 4.2-5.4 [facility] Serum or plasma calcium miguel angel urement (mass/volume)Ordered By: Lavon Vicente on 10-15-2023 Calcium [Mass/Vol] 9.2 mg/dL 8.5-10.1 [facility] Serum or plasma creatinine m easurement (mass/volume)Ordered By: Lavon Vicente on 10-15-2023 Creatinine [Mass/Vol] 0.30 mg/dL 0.55-1.02 [facility] Serum or plasma urea nitroge n measurement (mass/volume)Ordered By: Lavon Vicente on 10-15-2023 Urea nitrogen [Mass/Vol] 15 mg/dL 7-18 [facility] Thin prep Papanicolaou smear with manual screeningOrdered By: Lavon Vicente on 10-15-2023 Thin prep Papanicolaou smear with manual screening 2.9 g/dL 3.2-5.0 [facility] Thin prep Papanicolaou smear with manual screening 20 U/L 15-37 [facility] Thin prep Papanicolaou smear with manual screening 2 5-15 [facility] Bacteria identified Cx Nom ( U)Ordered By: Lavon Vicente on 10-01-2023 Culture, urine Proteus mirabilis [facility] Basophil percentageOrdered B y: Lavon Vicente on 10-01-2023 Basophil percentage 0 SEEN /hpf 0-5 [facility] Bilirubin Test strip Ql (U)O rdered By: Lavon Vicente on 10-01-2023 Bilirubin Ql (U) Negative Negative [facility] Ketones Test strip Ql (U)Ord ered By: Lavon Vicente on 10-01-2023 Ketones Ql (U) Negative Negative [facility] Magnesium ammonium phosphate crystal detectionOrdered By: Lavon Vicente on 10-01-2023 Triple phosphate crystals LM Ql (Urine sed) 3+ /hpf [facility] Mucus LM Ql (Urine sed)Order ed By: Lavon Vicente on 10-01-2023 Mucus Ql (Urine sed) 0 SEEN /hpf [facility] Nitrite Test strip Ql (U)Ord ered By: Lavon Vicente on 10-01-2023 Nitrite Ql (U) Positive Negative [facility] No Panel InformationOrdered By: Lavon Vicente on 10-01-2023 0 SEEN /hpf 0-5 [facility] Protein Test strip Ql (U)Ord ered By: Lavon Vicente on 10-01-2023 Protein Ql (U) 30 mg/dl Negative [facility] Squamous epithelial cells de tection in urine sediment by light microscopyOrdered By: Lavon Vicente on 10-01-2023 Epithelial cells.squamous LM Ql (Urine sed) 0 SEEN /hpf 5-10 [facility] Urine blood detectionOrdered By: Lavon Vicente on 10-01-2023 RBC Ql (U) Negative Negative [facility] Urine clarityOrdered By: Estefany Vicente on 10-01-2023 Clarity (U) Cloudy Clear [facility] Urine color determinationOrd ered By: Lavon Vicente on 10-01-2023 Color (U) Yellow Yellow [facility] Urine glucose detectionOrder ed By: Lavon Vicente on 10-01-2023 Glucose Ql (U) Normal mg/dl Normal [facility] Urine leukocyte esterase det ection by dipstickOrdered By: Lavon Vicente on 10-01-2023 Leukocyte esterase Test strip Ql (U) 500 /ul Negative [facility] Urine pHOrdered By: Lavon alcala on 10-01-2023 pH (U) 9.0 [pH] 5.0 - 8.0 [facility] Urine sediment bacteria coun t by microscopy (number/high power field)Ordered By: Lavon Vicente on 10-01-2023 Bacteria LM.HPF (Urine sed) [#/Area] 0 /[HPF] None Seen [facility] Urine specific gravity measu rementOrdered By: Lavon Vicente on 10-01-2023 Specific gravity (U) [Rel density] 1.015 1.002-1.030 [facility] Urine urobilinogen measureme ntOrdered By: Lavon Vicente on 10-01-2023 Urobilinogen Ql (U) Normal mg/dl Normal [facility] Basophil percentageOrdered B y: Lavon Vicente on 09-07-2023 Basophil percentage 9.5 g/dL 12.0-15.0 [facility] Basophil percentage 158 mg/dL 74-106 [facility] Basophil percentage 7.0 g/dL 6.4-8.2 [facility] Basophil percentage 0.20 mg/dL 0.20-1.00 [facility] Basophil percentage 138 mmol/L 136-145 [facility] Basophil percentage 3.6 mmol/L 3.5-5.1 [facility] Basophil percentage 101 mmol/L 98-107 [facility] Basophils (Bld) [#/Vol] 6.6 10*3/uL 4.4-11.0 [facility] Determination of erythrocyte mean corpuscular volume (MCV)Ordered By: Lavon Vicente on 09-07-2023 MCV (RBC) [Entitic vol] 84.1 fL 81-99 [facility] Erythrocyte distribution wid th ratioOrdered By: Lavon Vicente on 09-07-2023 Erythrocyte distribution width (RBC) [Ratio] 15.8 % 11.6-14.6 [facility] Erythrocyte distribution wid th standard deviationOrdered By: Lavon Vicente on 09-07-2023 Erythrocyte distribution width (RBC) [Entitic vol] 47.5 fL 35.1-43.9 [facility] Hematocrit Auto (Bld) [Volum e fraction]Ordered By: Lavon Vicente on 09-07-2023 Hematocrit (Bld) [Volume fraction] 31.3 % 37-47 [facility] No Panel InformationOrdered By: Lavon Vicente on 09-07-2023 25.5 pg 27.0-32.0 [facility] 30.4 g/dL 32-36 [facility] 267 K/mm3 150-450 [facility] 9.5 fl 6.2-12.0 [facility] 219 mL/min >60 [facility] 265 mL/min >60 [facility] 38.6 RATIO 10-20 [facility] 4.3 g/dL 2.2-4.2 [facility] 0.6 RATIO 0.9-2.4 [facility] 82 U/L 45-117 [facility] 21 U/L 13-56 [facility] 29.0 mmol/L 21.0-32.0 [facility] 39.8 ng/mL [facility] RBC Auto (Bld) [#/Vol]Ordere d By: Lavon Vicente on 09-07-2023 RBC (Bld) [#/Vol] 3.72 10*6/uL 4.2-5.4 [facility] Serum or plasma calcium miguel angel urement (mass/volume)Ordered By: Lavon Vicente on 09-07-2023 Calcium [Mass/Vol] 8.6 mg/dL 8.5-10.1 [facility] Serum or plasma creatinine m easurement (mass/volume)Ordered By: Lavon Vicente on 09-07-2023 Creatinine [Mass/Vol] 0.34 mg/dL 0.55-1.02 [facility] Serum or plasma thyroid stim ulating hormone (TSH) measurement (units/volume)Ordered By: Lavon Vicente on 09-07-2023 TSH Qn 4.04 uIU/mL 0.358-3.74 [facility] Serum or plasma urea nitroge n measurement (mass/volume)Ordered By: Lavon Vicente on 09-07-2023 Urea nitrogen [Mass/Vol] 13 mg/dL 7-18 [facility] Thin prep Papanicolaou smear with manual screeningOrdered By: Lavon Vicente on 09-07-2023 Thin prep Papanicolaou smear with manual screening 2.7 g/dL 3.2-5.0 [facility] Thin prep Papanicolaou smear with manual screening 14 U/L 15-37 [facility] Thin prep Papanicolaou smear with manual screening 8 5-15 [facility] Thin prep Papanicolaou smear with manual screening 1.11 ng/dL 0.76-1.46 [facility] Bacteria identified Cx Nom ( U)Ordered By: Lavon Vicente on 09-06-2023 Culture, urine Proteus mirabilis [facility] Culture, urine Meth. resistant Stap h. aureus [facility] Bilirubin Test strip Ql (U)O rdered By: Lavon Vicente on 09-06-2023 Bilirubin Ql (U) Negative Negative [facility] Ketones Test strip Ql (U)Ord ered By: Lavon Vicente on 09-06-2023 Ketones Ql (U) Negative Negative [facility] Nitrite Test strip Ql (U)Ord ered By: Lavon Vicente on 09-06-2023 Nitrite Ql (U) Positive Negative [facility] Protein Test strip Ql (U)Ord ered By: Lavon Vicente on 09-06-2023 Protein Ql (U) Negative Negative [facility] Urine blood detectionOrdered By: Lavon Vicente on 09-06-2023 RBC Ql (U) 25 /ul Negative [facility] Urine clarityOrdered By: Estefany Vicente on 09-06-2023 Clarity (U) Clear Clear [facility] Urine color determinationOrd ered By: Lavon Vicente on 09-06-2023 Color (U) Yellow Yellow [facility] Urine glucose detectionOrder ed By: Lavon Vicente on 09-06-2023 Glucose Ql (U) Normal mg/dl Normal [facility] Urine leukocyte esterase det ection by dipstickOrdered By: Lavon Vicente on 09-06-2023 Leukocyte esterase Test strip Ql (U) 500 /ul Negative [facility] Urine pHOrdered By: Lavon alcala on 09-06-2023 pH (U) 8.0 [pH] 5.0 - 8.0 [facility] Urine specific gravity measu rementOrdered By: Lavon Vicente on 09-06-2023 Specific gravity (U) [Rel density] 1.010 1.002-1.030 [facility] Urine urobilinogen measureme ntOrdered By: Lavon Vicente on 09-06-2023 Urobilinogen Ql (U) Normal mg/dl Normal [facility] Basophil percentageOrdered B y: Lavon Vicente on 08-11-2023 Basophil percentage 10.9 g/dL 12.0-15.0 [facility] Basophil percentage 121 mg/dL 74-106 [facility] Basophil percentage 8.4 g/dL 6.4-8.2 [facility] Basophil percentage 0.30 mg/dL 0.20-1.00 [facility] Basophil percentage 136 mmol/L 136-145 [facility] Basophil percentage 3.8 mmol/L 3.5-5.1 [facility] Basophil percentage 102 mmol/L 98-107 [facility] Basophils (Bld) [#/Vol] 7.8 10*3/uL 4.4-11.0 [facility] Determination of erythrocyte mean corpuscular volume (MCV)Ordered By: Lavon Vicente on 08-11-2023 MCV (RBC) [Entitic vol] 83.8 fL 81-99 [facility] Erythrocyte distribution wid th ratioOrdered By: Lavon Vicente on 08-11-2023 Erythrocyte distribution width (RBC) [Ratio] 15.6 % 11.6-14.6 [facility] Erythrocyte distribution wid th standard deviationOrdered By: Lavon Vicente on 08-11-2023 Erythrocyte distribution width (RBC) [Entitic vol] 47.7 fL 35.1-43.9 [facility] Hematocrit Auto (Bld) [Volum e fraction]Ordered By: Lavon Vicente on 08-11-2023 Hematocrit (Bld) [Volume fraction] 36.1 % 37-47 [facility] No Panel InformationOrdered By: Lavon Vicente on 08-11-2023 25.3 pg 27.0-32.0 [facility] 30.2 g/dL 32-36 [facility] 323 K/mm3 150-450 [facility] 9.4 fl 6.2-12.0 [facility] 175 mL/min >60 [facility] 212 mL/min >60 [facility] 39.0 RATIO 10-20 [facility] 5.4 g/dL 2.2-4.2 [facility] 0.6 RATIO 0.9-2.4 [facility] 98 U/L 45-117 [facility] 29 U/L 13-56 [facility] 27.0 mmol/L 21.0-32.0 [facility] RBC Auto (Bld) [#/Vol]Ordere d By: Lavon Vicente on 08-11-2023 RBC (Bld) [#/Vol] 4.31 10*6/uL 4.2-5.4 [facility] Serum or plasma calcium miguel angel urement (mass/volume)Ordered By: Lavon Vicente on 08-11-2023 Calcium [Mass/Vol] 9.6 mg/dL 8.5-10.1 [facility] Serum or plasma creatinine m easurement (mass/volume)Ordered By: Lavon Vicente on 08-11-2023 Creatinine [Mass/Vol] 0.41 mg/dL 0.55-1.02 [facility] Serum or plasma urea nitroge n measurement (mass/volume)Ordered By: Lavon Vicente on 08-11-2023 Urea nitrogen [Mass/Vol] 16 mg/dL 7-18 [facility] Thin prep Papanicolaou smear with manual screeningOrdered By: Lavon Vicente on 08-11-2023 Thin prep Papanicolaou smear with manual screening 3.0 g/dL 3.2-5.0 [facility] Thin prep Papanicolaou smear with manual screening 24 U/L 15-37 [facility] Thin prep Papanicolaou smear with manual screening 7 5-15 [facility] Basophil percentageOrdered B y: Lavon Vicente on 07-28-2023 Basophil percentage 10.1 g/dL 12.0-15.0 [facility] Basophil percentage 124 mg/dL 74-106 [facility] Basophil percentage 7.6 g/dL 6.4-8.2 [facility] Basophil percentage 0.20 mg/dL 0.20-1.00 [facility] Basophil percentage 140 mmol/L 136-145 [facility] Basophil percentage 3.7 mmol/L 3.5-5.1 [facility] Basophil percentage 104 mmol/L 98-107 [facility] Basophils (Bld) [#/Vol] 7.4 10*3/uL 4.4-11.0 [facility] Determination of erythrocyte mean corpuscular volume (MCV)Ordered By: Lavon Vicente on 07-28-2023 MCV (RBC) [Entitic vol] 84.0 fL 81-99 [facility] Erythrocyte distribution wid th ratioOrdered By: Lavon Vicente on 07-28-2023 Erythrocyte distribution width (RBC) [Ratio] 15.7 % 11.6-14.6 [facility] Erythrocyte distribution wid th standard deviationOrdered By: Lavon Vicente on 07-28-2023 Erythrocyte distribution width (RBC) [Entitic vol] 47.8 fL 35.1-43.9 [facility] Hematocrit Auto (Bld) [Volum e fraction]Ordered By: Lavon Vicente on 07-28-2023 Hematocrit (Bld) [Volume fraction] 34.1 % 37-47 [facility] No Panel InformationOrdered By: Lavon Vicente on 07-28-2023 24.9 pg 27.0-32.0 [facility] 29.6 g/dL 32-36 [facility] 362 K/mm3 150-450 [facility] 9.7 fl 6.2-12.0 [facility] 188 mL/min >60 [facility] 227 mL/min >60 [facility] 33.7 RATIO 10-20 [facility] 4.8 g/dL 2.2-4.2 [facility] 0.6 RATIO 0.9-2.4 [facility] 90 U/L 45-117 [facility] 31 U/L 13-56 [facility] 31.0 mmol/L 21.0-32.0 [facility] RBC Auto (Bld) [#/Vol]Ordere d By: Lavon Vicente on 07-28-2023 RBC (Bld) [#/Vol] 4.06 10*6/uL 4.2-5.4 [facility] Serum or plasma calcium miguel angel urement (mass/volume)Ordered By: Lavon Vicente on 07-28-2023 Calcium [Mass/Vol] 8.8 mg/dL 8.5-10.1 [facility] Serum or plasma creatinine m easurement (mass/volume)Ordered By: Lavon Vicente on 07-28-2023 Creatinine [Mass/Vol] 0.39 mg/dL 0.55-1.02 [facility] Serum or plasma urea nitroge n measurement (mass/volume)Ordered By: Lavon Vicente on 07-28-2023 Urea nitrogen [Mass/Vol] 13 mg/dL 7-18 [facility] Thin prep Papanicolaou smear with manual screeningOrdered By: Lavon Vicente on 07-28-2023 Thin prep Papanicolaou smear with manual screening 2.8 g/dL 3.2-5.0 [facility] Thin prep Papanicolaou smear with manual screening 19 U/L 15-37 [facility] Thin prep Papanicolaou smear with manual screening 5 5-15 [facility] Basophil percentageOrdered B y: Lavon Vicente on 07-14-2023 Basophil percentage 10.0 g/dL 12.0-15.0 [facility] Basophil percentage 102 mg/dL 74-106 [facility] Basophil percentage 6.8 g/dL 6.4-8.2 [facility] Basophil percentage 0.20 mg/dL 0.20-1.00 [facility] Basophil percentage 142 mmol/L 136-145 [facility] Basophil percentage 3.8 mmol/L 3.5-5.1 [facility] Basophil percentage 104 mmol/L 98-107 [facility] Basophils (Bld) [#/Vol] 7.3 10*3/uL 4.4-11.0 [facility] Determination of erythrocyte mean corpuscular volume (MCV)Ordered By: Lavon Vicente on 07-14-2023 MCV (RBC) [Entitic vol] 86.5 fL 81-99 [facility] Erythrocyte distribution wid th ratioOrdered By: Lavon Vicente on 07-14-2023 Erythrocyte distribution width (RBC) [Ratio] 16.2 % 11.6-14.6 [facility] Erythrocyte distribution wid th standard deviationOrdered By: Lavon Vicente on 07-14-2023 Erythrocyte distribution width (RBC) [Entitic vol] 50.8 fL 35.1-43.9 [facility] Hematocrit Auto (Bld) [Volum e fraction]Ordered By: Lavon Vicente on 07-14-2023 Hematocrit (Bld) [Volume fraction] 33.9 % 37-47 [facility] No Panel InformationOrdered By: Lavon Vicente on 07-14-2023 25.5 pg 27.0-32.0 [facility] 29.5 g/dL 32-36 [facility] 304 K/mm3 150-450 [facility] 258 mL/min >60 [facility] 312 mL/min >60 [facility] 47.8 RATIO 10-20 [facility] 4.0 g/dL 2.2-4.2 [facility] 0.7 RATIO 0.9-2.4 [facility] 70 U/L 45-117 [facility] 32 U/L 13-56 [facility] 30.0 mmol/L 21.0-32.0 [facility] 37.3 ng/mL [facility] Platelet mean volume Ankur-Ec ker (Bld) [Entitic vol]Ordered By: Lavon Vicente on 07-14-2023 Platelet mean volume (Bld) [Entitic vol] 10.0 fL 6.2-12.0 [facility] RBC Auto (Bld) [#/Vol]Ordere d By: Lavon Vicente on 07-14-2023 RBC (Bld) [#/Vol] 3.92 10*6/uL 4.2-5.4 [facility] Serum or plasma calcium miguel angel urement (mass/volume)Ordered By: Lavon Vicente on 07-14-2023 Calcium [Mass/Vol] 8.6 mg/dL 8.5-10.1 oste [facility] Serum or plasma creatinine m easurement (mass/volume)Ordered By: Lavon Vicente on 07-14-2023 Creatinine [Mass/Vol] 0.29 mg/dL 0.55-1.02 [facility] Serum or plasma thyroid stim ulating hormone (TSH) measurement (units/volume)Ordered By: Lavon Vicente on 07-14-2023 TSH Qn 1.99 uIU/mL 0.358-3.74 [facility] Serum or plasma urea nitroge n measurement (mass/volume)Ordered By: Lavon Vicente on 07-14-2023 Urea nitrogen [Mass/Vol] 14 mg/dL 7-18 [facility] Thin prep Papanicolaou smear with manual screeningOrdered By: Lavon Vicente on 07-14-2023 Thin prep Papanicolaou smear with manual screening 2.8 g/dL 3.2-5.0 [facility] Thin prep Papanicolaou smear with manual screening 23 U/L 15-37 [facility] Thin prep Papanicolaou smear with manual screening 8 5-15 [facility] Thin prep Papanicolaou smear with manual screening 1.48 ng/dL 0.76-1.46 [facility] Whole blood hemoglobin A1c/t otal hemoglobin ratio (mass fraction)Ordered By: Lavon Vicente on 07-14-2023 HbA1c (Bld) [Mass fraction] 5.6 % 3.8-5.6 [facility] Absolute lymphocyte countOrd ered By: Shari Pastor on 07-08-2023 Lymphocytes Auto (Unsp spec) [#/Vol] 1.94 10*3/uL 0.83-4.51 [facility] Automated lymphocyte count a s percentage of total leukocytesOrdered By: Shari Pastor on 07-08-2023 Lymphocytes/100 WBC Auto (Unsp spec) 34.4 % 19-41 [facility] Basophil percentageOrdered B y: Shari Pastor on 07-08-2023 Basophil percentage 11.6 g/dL 12.0-15.0 [facility] Basophil percentage 111 mg/dL 74-106 [facility] Basophil percentage 8.1 g/dL 6.4-8.2 [facility] Basophil percentage 0.30 mg/dL 0.20-1.00 [facility] Basophil percentage 134 mmol/L 136-145 [facility] Basophil percentage 3.4 mmol/L 3.5-5.1 [facility] Basophil percentage 103 mmol/L 98-107 [facility] Basophils (Bld) [#/Vol] 5.6 10*3/uL 4.4-11.0 [facility] Basophils (Bld) [#/Vol] 3.2 10*3/uL 2.0-7.7 [facility] Basophils/100 WBC (Bld) 56.9 % 47-70 [facility] Basophils/100 WBC (Bld) 7.6 % 0-10 [facility] Basophils/100 WBC (Bld) 0.0 % 0-5 [facility] Basophils/100 WBC (Bld) 0.4 % 0-1 [facility] Determination of erythrocyte mean corpuscular volume (MCV)Ordered By: Shari Pastor on 07-08-2023 MCV (RBC) [Entitic vol] 83.5 fL 81-99 [facility] Erythrocyte distribution wid th ratioOrdered By: Shari Pastor on 07-08-2023 Erythrocyte distribution width (RBC) [Ratio] 15.9 % 11.6-14.6 [facility] Erythrocyte distribution wid th standard deviationOrdered By: Shari Pastor on 07-08-2023 Erythrocyte distribution width (RBC) [Entitic vol] 48.1 fL 35.1-43.9 [facility] Hematocrit Auto (Bld) [Volum e fraction]Ordered By: Shari Pastor on 07-08-2023 Hematocrit (Bld) [Volume fraction] 38.0 % 37-47 [facility] Immature granulocytes/100 WB C Auto (Bld)Ordered By: Shari Pastor on 07-08-2023 Immature granulocytes/100 WBC (Bld) 0.700 % 0.0-0.9 [facility] No Panel InformationOrdered By: Shari Pastor on 07-08-2023 25.5 pg 27.0-32.0 [facility] 30.5 g/dL 32-36 [facility] 370 K/mm3 150-450 [facility] 0 % 0-5 [facility] 274 mL/min >60 [facility] 331 mL/min >60 [facility] 292.59 ml/min [facility] 32.4 RATIO 10-20 [facility] 4.9 g/dL 2.2-4.2 [facility] 0.7 RATIO 0.9-2.4 [facility] 72 U/L 45-117 [facility] 64 U/L 13-56 [facility] 28.0 mmol/L 21.0-32.0 [facility] Platelet mean volume Ankur-Ec ker (Bld) [Entitic vol]Ordered By: Shari Pastor on 07-08-2023 Platelet mean volume (Bld) [Entitic vol] 9.2 fL 6.2-12.0 [facility] RBC Auto (Bld) [#/Vol]Ordere d By: Shari Pastor on 07-08-2023 RBC (Bld) [#/Vol] 4.55 10*6/uL 4.2-5.4 [facility] Serum or plasma calcium miguel angel urement (mass/volume)Ordered By: Shari Pastor on 07-08-2023 Calcium [Mass/Vol] 8.6 mg/dL 8.5-10.1 [facility] Serum or plasma creatinine m easurement (mass/volume)Ordered By: Shari Pastor on 07-08-2023 Creatinine [Mass/Vol] 0.28 mg/dL 0.55-1.02 [facility] Serum or plasma urea nitroge n measurement (mass/volume)Ordered By: Shari Pastor on 07-08-2023 Urea nitrogen [Mass/Vol] 9 mg/dL 7-18 [facility] Thin prep Papanicolaou smear with manual screeningOrdered By: Shari Pastor on 07-08-2023 Thin prep Papanicolaou smear with manual screening 3.2 g/dL 3.2-5.0 [facility] Thin prep Papanicolaou smear with manual screening 42 U/L 15-37 [facility] Thin prep Papanicolaou smear with manual screening 3 5-15 [facility] Assessment of wrist artery p atency prior to arterial punctureOrdered By: Renzo Del Angel on 07-03-2023 Arterial patency Wrist artery --pre arterial puncture Positive [facility] Bacteria identified Cx Nom ( U)Ordered By: Renzo Del Angel on 07-03-2023 Culture, urine Pseudomonas aeruginosa [facility] Culture, urine Enterococcus faecalis [facility] Culture, urine Proteus mirabilis [facility] Culture, urine Pseudomonas aeruginosa [facility] Culture, urine Enterococcus faecalis [facility] Culture, urine Proteus mirabilis [facility] Base excessOrdered By: Renzo Del Angel on 07-03-2023 Base excess Calc (BldV) [Moles/Vol] 1 mmol/L -2-2 [facility] Base excess Calc (BldV) [Moles/Vol] -1 mmol/L -1.0-3.5 [facility] Basophil percentageOrdered B y: Renzo Del Angel on 07-03-2023 Basophil percentage 25 mmol/L [facility] Basophils/100 WBC (Bld) 90 % 95-99 [facility] Basophil percentageOrdered B y: Estevan Aguila on 07-03-2023 Basophil percentage 1.2 mmol/L 0.4-2.0 [facility] Blood lymphocytes/100 leukoc ytesOrdered By: Shari Pastor on 07-03-2023 Lymphocytes/100 WBC (Bld) 13 % 19-41 [facility] Blood monocytes/100 leukocyt esOrdered By: Shari Pastor on 07-03-2023 Monocytes/100 WBC (Bld) 4 % 0-10 [facility] Blood platelet adequacy dete ction by light microscopyOrdered By: Shari Pastor on 07-03-2023 Platelets LM Ql (Bld) ADEQUATE ADEQ [facility] Blood segmented neutrophils/ 100 leukocytesOrdered By: Shari Pastor on 01-20-2024 Segmented neutrophils/100 WBC (Bld) 83 % 47-70 [facility] CO2 (BldV) [Moles/Vol]Ordere d By: Renzo Del Angel on 07-03-2023 CO2 [Moles/Vol] 24 mmol/L 23-33 [facility] Measurement, pHOrdered By: Judd Del Angel on 07-03-2023 pH (Unsp spec) 7.47 [pH] 7.35-7.45 [facility] No Panel InformationOrdered By: Renzo Del Angel on 07-03-2023 ART [facility] R Radial [facility] Not entered [facility] Room Air [facility] 21.0 [facility] 24.3 mmol/L - [facility] PCO2 venousOrdered By: Renzo Del Angel on 07-03-2023 CO2 (BldV) [Partial pressure] 29.7 mm[Hg] 41-51 [facility] PO2 venousOrdered By: Renzo Del Angel on 07-03-2023 Oxygen (BldV) [Partial pressure] 90 mm[Hg] 25-40 [facility] Partial pressure of carbon d ioxide measurementOrdered By: Renzo Del Angel on 07-03-2023 CO2 (Dial fld) [Partial pressure] 33.5 mmHg 35-45 [facility] Partial pressure of oxygen m easurementOrdered By: Renzo Del Angel on 07-03-2023 Oxygen [Partial pressure] in Capillary blood by Transcutaneous O2 monitor 54 mmHG 75-100 [facility] RBC morphologyOrdered By: Cristi Pastor on 07-03-2023 RBC morphology finding Nom (Bld) NORM C+C NORMAL NORM C&C [facility] Total cell countOrdered By: Shari Pastor on 07-03-2023 Cells counted Molgen (Bld/Tiss) [#] 100 MANUAL DIFF [facility] Venous blood bicarbonate shantel surementOrdered By: Renzo Del Angel on 07-03-2023 HCO3 (BldCoV) [Moles/Vol] 23 mmol/L - [facility] Venous blood oxygen saturati on (pure mass fraction)Ordered By: Renzo Del Angel on 07-03-2023 SaO2% (BldV) [Pure mass fraction] 98 % 50-70 [facility] Venous blood pH measurementO rdered By: Renzo Del Angel on 07-03-2023 pH (BldV) 7.49 [pH] 7.32-7.42 [facility] Absolute lymphocyte countOrd ered By: Estevan Aguila on 07-02-2023 Lymphocytes Auto (Unsp spec) [#/Vol] 1.49 10*3/uL 0.83-4.51 [facility] Activated partial thrombopla stin time (aPTT) in platelet poor plasma by coagulation aOrdered By: Estevan Aguila on 07-02-2023 aPTT Coag (PPP) [Time] 29.3 s 24.1-36.2 [facility] Amorphous sediment detection in urine sediment by light microscopyOrdered By: Estevan Aguila on 07-02-2023 Amorphous sediment LM Ql (Urine sed) 1+ [facility] Automated lymphocyte count a s percentage of total leukocytesOrdered By: Estevan Aguila on 07-02-2023 Lymphocytes/100 WBC Auto (Unsp spec) 8.7 % 19-41 [facility] Basophil percentageOrdered B y: Estevan Aguila on 07-02-2023 Basophils/100 WBC (Bld) 0.3 % 0-1 [facility] Eosinophils/100 WBC (Bld) 0.3 % 0-5 [facility] Hemoglobin (Bld) [Mass/Vol] 11.9 g/dL 12.0-15.0 [facility] Monocytes/100 WBC (Bld) 4.0 % 0-10 [facility] Neutrophils (Bld) [#/Vol] 14.7 10*3/uL 2.0-7.7 [facility] Neutrophils/100 WBC (Bld) 86.2 % 47-70 [facility] WBC (Bld) [#/Vol] 17.1 10*3/uL 4.4-11.0 [facility] Basophil percentage 50-100 SEEN /hpf 0-5 [facility] Bilirubin [Mass/Vol] 0.50 mg/dL 0.20-1.00 [facility] Comment on above: For patients on eltr ombopag therapy, use of Dimension Amanda TBIL is not recommended. Chloride [Moles/Vol] 101 mmol/L 98-107 [facility] Glucose [Mass/Vol] 162 mg/dL 74-106 [facility] Comment on above: Fasting Glucose resu lt greater than or equal to 126 mg/dL suggests DIABETES MELLITUS per A.D.A. criteria. Lactate [Moles/Vol] 5.7 mmol/L 0.4-2.0 [facility] Comment on above: Critical Result(s) C alled at: 23:28:10 07/02/2023 by: Boo Nieves. TO BLANKA RN (ED). Results read back by same. Potassium [Moles/Vol] 3.7 mmol/L 3.5-5.1 [facility] Protein [Mass/Vol] 9.2 g/dL 6.4-8.2 [facility] Sodium [Moles/Vol] 139 mmol/L 136-145 [facility] Bilirubin Test strip Ql (U)O rdered By: Estevan Aguila on 07-02-2023 Bilirubin Ql (U) 1 mg/dL Negative [facility] Comment on above: COLOR OF URINE MAY A FFECT DIPSTICK RESULTS. Determination of erythrocyte mean corpuscular volume (MCV)Ordered By: Estevan Aguila on 07-02-2023 MCV (RBC) [Entitic vol] 82.8 fL 81-99 [facility] Erythrocyte distribution wid th ratioOrdered By: Estevan Aguila on 07-02-2023 Erythrocyte distribution width (RBC) [Ratio] 15.8 % 11.6-14.6 [facility] Erythrocyte distribution wid th standard deviationOrdered By: Estevan Aguila on 07-02-2023 Erythrocyte distribution width (RBC) [Entitic vol] 47.5 fL 35.1-43.9 [facility] Hematocrit Auto (Bld) [Volum e fraction]Ordered By: Estevan Aguila on 07-02-2023 Hematocrit (Bld) [Volume fraction] 38.5 % 37-47 [facility] Immature granulocytes/100 WB C Auto (Bld)Ordered By: Estevan Aguila on 07-02-2023 Immature granulocytes/100 WBC (Bld) 0.500 % 0.0-0.9 [facility] Comment on above: IG% - Immature Granu locytes (promyelocytes, myelocytes and metamyelocytes) > 1% indicates that a LEFT SHIFT is Present. International normalized rat io (INR) calculationOrdered By: Estevan Aguila on 07-02-2023 INR Coag (PPP) [Relative time] 1.1 {INR} [facility] Ketones Test strip Ql (U)Ord ered By: Estevan Aguila on 07-02-2023 Ketones Ql (U) 150 mg/dl Negative [facility] Comment on above: CRITICAL VALUE *HCRI TICAL VALUE VERIFIED. CALLED TO [id number] [facility].RESULTS READ BACK BY SAME . Laboratory - Chemistry and C hemistry - challengeOrdered By: Estevan Aguila on 07-02-2023 Albumin/Globulin [Mass ratio] 0.6 {ratio} 0.9-2.4 [facility] ALP [Catalytic activity/Vol] 96 U/L 45-117 [facility] ALT [Catalytic activity/Vol] 40 U/L 13-56 [facility] CK [Catalytic activity/Vol] 137 U/L 26-192 [facility] CO2 [Moles/Vol] 27.0 mmol/L 21.0-32.0 [facility] Globulin (S) [Mass/Vol] 5.6 g/dL 2.2-4.2 [facility] Urea nitrogen/Creatinine [Mass ratio] 18.0 mg/mg 10-20 [facility] Laboratory - CoagulationOrde red By: Estevan Aguila on 07-02-2023 PT Coag (PPP) [Time] 14.2 s 11.7-14.9 [facility] Laboratory - Hematology and Cell countsOrdered By: Estevan Aguila on 07-02-2023 MCH (RBC) [Entitic mass] 25.6 pg 27.0-32.0 [facility] MCHC (RBC) [Mass/Vol] 30.9 g/dL 32-36 [facility] Nucleated RBC/100 WBC (Bld) [Ratio] 0 % 0-5 [facility] Platelets (Bld) [#/Vol] 408 10*3/uL 150-450 [facility] Laboratory - Microbiology an d Antimicrobial susceptibilityOrdered By: Estevan Aguila on 07-02-2023 SARS-CoV-2 (COVID-19) RNA NBA+probe Ql (Unsp spec) [facility] Mucus LM Ql (Urine sed)Order ed By: Estevan Aguila on 07-02-2023 Mucus Ql (Urine sed) 0 SEEN /hpf [facility] Nitrite Test strip Ql (U)Ord ered By: Estevan Aguila on 07-02-2023 Nitrite Ql (U) Positive Negative [facility] No Panel InformationOrdered By: Estevan Aguila on 07-02-2023 14.2 SECONDS 11.7-14.9 [facility] No growth in 5 days. [facility] Urine RBC 10-25 SEEN /hpf 0-5 [facility] 10-25 SEEN /hpf 0-5 [facility] Estimated Creatinine Clearance Calc 149.60 ml/min [facility] Estimated GFR (MDRD) Amer 149 mL/min >60 [facility] Comment on above: GFR Calc Estimated GFR (MDRD) Non-Af Amer 123 mL/min >60 [facility] Comment on above: Non- GFR Calc Troponin I High Sensitivity 35 pg/mL 3.0-54.0 [facility] Comment on above: Please Note: New [place] t Units and Gender Specific Reference Ranges. For more information see Policy Stat Procedure Amanda High Sensitivity Troponin (TNIH) and attachments. 137 U/L 26-192 [facility] 35 pg/mL 3.0-54.0 [facility] No growth in 5 days. [facility] Platelet mean volume Ankur-Ec ker (Bld) [Entitic vol]Ordered By: Estevan Aguila on 07-02-2023 Platelet mean volume (Bld) [Entitic vol] 9.3 fL 6.2-12.0 [facility] Protein Test strip Ql (U)Ord ered By: Estevan Aguila on 07-02-2023 Protein Ql (U) 500 mg/dl Negative [facility] RBC Auto (Bld) [#/Vol]Ordere d By: Estevan Aguila on 07-02-2023 RBC (Bld) [#/Vol] 4.65 10*6/uL 4.2-5.4 [facility] Serum or plasma calcium miguel angel urement (mass/volume)Ordered By: Estevan Aguila on 07-02-2023 Calcium [Mass/Vol] 9.6 mg/dL 8.5-10.1 [facility] Serum or plasma creatinine m easurement (mass/volume)Ordered By: Estevan Aguila on 07-02-2023 Creatinine [Mass/Vol] 0.56 mg/dL 0.55-1.02 [facility] Comment on above: The validity of the calculated GFR & GFRAA in patients over 70 years has not been determined. Clinical correlation is essential. Serum or plasma thyroid stim ulating hormone (TSH) measurement (units/volume)Ordered By: Francisco Pitts on 07-02-2023 TSH Qn 1.86 uIU/mL 0.358-3.74 [facility] Serum or plasma urea nitroge n measurement (mass/volume)Ordered By: Estevan Aguila on 07-02-2023 Urea nitrogen [Mass/Vol] 10 mg/dL 7-18 [facility] Squamous epithelial cells de tection in urine sediment by light microscopyOrdered By: Estevan Aguila on 07-02-2023 Epithelial cells.squamous LM Ql (Urine sed) 0-5 SEEN /hpf 5-10 [facility] Thin prep Papanicolaou smear with manual screeningOrdered By: Estevan Aguila on 07-02-2023 Thin prep Papanicolaou smear with manual screening 3.6 g/dL 3.2-5.0 [facility] Thin prep Papanicolaou smear with manual screening 25 U/L 15-37 [facility] Thin prep Papanicolaou smear with manual screening 11 5-15 [facility] Transitional cells detection in urine sediment by light microscopyOrdered By: Esetvan Aguila on 07-02-2023 Transitional cells LM Ql (Urine sed) 0-5 SEEN /hpf 0-5 [facility] Urine blood detectionOrdered By: Estevan Aguila on 07-02-2023 RBC Ql (U) 250 /ul Negative [facility] Urine clarityOrdered By: Alejandro Aguila on 07-02-2023 Clarity (U) Turbid Clear [facility] Urine color determinationOrd ered By: Estevan Aguila on 07-02-2023 Color (U) Yellow Yellow [facility] Urine glucose detectionOrder ed By: Estevan Aguila on 07-02-2023 Glucose Ql (U) Normal mg/dl Normal [facility] Urine leukocyte esterase det ection by dipstickOrdered By: Estevan Aguila on 07-02-2023 Leukocyte esterase Test strip Ql (U) 500 /ul Negative [facility] Urine pHOrdered By: Estevan Dorman chuck on 07-02-2023 pH (U) 7.0 [pH] 5.0 - 8.0 [facility] Urine sediment bacteria coun t by microscopy (number/high power field)Ordered By: Estevan Aguila on 07-02-2023 Bacteria LM.HPF (Urine sed) [#/Area] 3 /[HPF] None Seen [facility] Urine specific gravity measu rementOrdered By: Estevan Aguila on 07-02-2023 Specific gravity (U) [Rel density] 1.010 1.002-1.030 [facility] Urine urobilinogen measureme ntOrdered By: Estevan Aguila on 07-02-2023 Urobilinogen Ql (U) 1 mg/dl Normal [facility] CT ABDOMEN/PELVIS W/O CONTRA STon 07-01-2023 CT ABDOMEN/PELVIS W/O CONTRAST ORIGINAL EXAMINATION: CT OF THE ABDOMEN AND [...] Sign Date: 07/01/2023 1:15:25 PM Ordering Provider: ISREAL PAGE [facility] ([place]) Amorphous sediment detection in urine sediment by light microscopyOrdered By: Lavon Vicente on 03-09-2023 Amorphous sediment LM Ql (Urine sed) 1+ [facility] Basophil percentageOrdered B y: Lavon Vicente on 03-09-2023 Basophil percentage 10-25 SEEN /hpf 0-5 [facility] Bilirubin Test strip Ql (U)O rdered By: Lavon Vicente on 03-09-2023 Bilirubin Ql (U) Negative Negative [facility] Culture, urineOrdered By: Cristi Vicente on 03-09-2023 Bacteria identified Cx Nom (U) Pseudomonas aeruginosa [facility] Bacteria identified Cx Nom (U) Proteus mirabilis [facility] Bacteria identified Cx Nom (U) Vancomycin Resist. E. faecalis [facility] Ketones Test strip Ql (U)Ord ered By: Lavon Vicente on 03-09-2023 Ketones Ql (U) Negative Negative [facility] Magnesium ammonium phosphate crystal detectionOrdered By: Lavon Vicente on 03-09-2023 Triple phosphate crystals LM Ql (Urine sed) 1+ /hpf [facility] Mucus LM Ql (Urine sed)Order ed By: Lavon Vicente on 03-09-2023 Mucus Ql (Urine sed) 0 SEEN /hpf [facility] Nitrite Test strip Ql (U)Ord ered By: Lavon Vicente on 03-09-2023 Nitrite Ql (U) Positive Negative [facility] Protein Test strip Ql (U)Ord ered By: Lavon Vicente on 03-09-2023 Protein Ql (U) 30 mg/dl Negative [facility] Squamous epithelial cells de tection in urine sediment by light microscopyOrdered By: Lavon Vicente on 03-09-2023 Epithelial cells.squamous LM Ql (Urine sed) 5-10 SEEN /hpf 5-10 [facility] Urine blood detectionOrdered By: Lavon Vicente on 03-09-2023 RBC Ql (U) 10 /ul Negative [facility] RBC Ql (U) 0 SEEN /hpf 0-5 [facility] Urine clarityOrdered By: Estefany Vicente on 03-09-2023 Clarity (U) Cloudy Clear [facility] Urine color determinationOrd ered By: Lavon Vicente on 03-09-2023 Color (U) Yellow Yellow [facility] Urine glucose detectionOrder ed By: Lavon Vicente on 03-09-2023 Glucose Ql (U) Normal mg/dl Normal [facility] Urine leukocyte esterase det ection by dipstickOrdered By: Lavon Vicente on 03-09-2023 Leukocyte esterase Test strip Ql (U) 500 /ul Negative [facility] Urine pHOrdered By: Lavon alcala on 03-09-2023 pH (U) 7.0 [pH] 5.0 - 8.0 [facility] Urine sediment bacteria coun t by microscopy (number/high power field)Ordered By: Lavon Vicente on 03-09-2023 Bacteria LM.HPF (Urine sed) [#/Area] 1 /[HPF] None Seen [facility] Urine specific gravity measu rementOrdered By: Lavon Vicente on 03-09-2023 Specific gravity (U) [Rel density] 1.010 1.002-1.030 [facility] Urobilinogen Auto test strip Ql (U)Ordered By: Lavon Vicente on 03-09-2023 Urobilinogen Ql (U) Normal mg/dl Normal [facility] Throat specimen bacteria irma ntification by cultureOrdered By: Lavon Vicente on 02-26-2023 Bacteria identified Cx Nom (Throat) streptococcus isolated. [facility] Bacteria identified Cx Nom ( Wound)Ordered By: Lavon Vicente on 02-22-2023 Routine wound culture Meth. resistant St aph. aureus [facility] Routine wound culture Streptococcus group A [facility] Gram stain for investigation of transfusion reactionOrdered By: Lavon Vicente on 02-22-2023 Microscopic observation Gram stain Nom (Unsp spec) [facility] Basophil percentageOrdered B y: Lavon Vicente on 02-02-2023 Basophils (Bld) [#/Vol] 9.1 10*3/uL 4.4-11.0 [facility] Blood erythrocytes count (nu mber/volume)Ordered By: Lavon Vicente on 02-02-2023 RBC (Bld) [#/Vol] 4.01 10*6/uL 4.2-5.4 [facility] Blood hemoglobin measurement (mass/volume)Ordered By: Lavon Vicente on 02-02-2023 Hemoglobin (Bld) [Mass/Vol] 10.1 g/dL 12.0-15.0 [facility] Blood platelet mean volumeOr dered By: Lavon Vicente on 02-02-2023 Platelet mean volume (Bld) [Entitic vol] 9.4 fL 6.2-12.0 [facility] Determination of erythrocyte mean corpuscular volume (MCV)Ordered By: Lavon Vicente on 02-02-2023 MCV (RBC) [Entitic vol] 83.8 fL 81-99 [facility] Hematocrit Auto (Bld) [Volum e fraction]Ordered By: Lavon Vicente on 02-02-2023 Hematocrit (Bld) [Volume fraction] 33.6 % 37-47 [facility] MCHC Auto (RBC) [Mass/Vol]Or dered By: Lavon Vicente on 02-02-2023 MCHC (RBC) [Mass/Vol] 30.1 g/dL 32-36 [facility] No Panel InformationOrdered By: Lavon Vicente on 02-02-2023 25.2 pg 27.0-32.0 [facility] 16.0 % 11.6-14.6 [facility] 49.2 fl 35.1-43.9 [facility] Platelets bldOrdered By: Estefany Vicente on 02-02-2023 Platelets (Bld) [#/Vol] 346 10*3/uL 150-450 [facility] Basophil percentageOrdered B y: Lavon Vicente on 02-01-2023 Basophils (Bld) [#/Vol] 9.9 10*3/uL 4.4-11.0 [facility] Blood erythrocytes count (nu mber/volume)Ordered By: Lavon Vicente on 02-01-2023 RBC (Bld) [#/Vol] 4.33 10*6/uL 4.2-5.4 [facility] Blood hemoglobin measurement (mass/volume)Ordered By: Lavon Vicente on 02-01-2023 Hemoglobin (Bld) [Mass/Vol] 10.9 g/dL 12.0-15.0 [facility] Blood platelet mean volumeOr dered By: Lavon Vicente on 02-01-2023 Platelet mean volume (Bld) [Entitic vol] 9.4 fL 6.2-12.0 [facility] Determination of erythrocyte mean corpuscular volume (MCV)Ordered By: Lavon Vicente on 02-01-2023 MCV (RBC) [Entitic vol] 86.1 fL 81-99 [facility] Hematocrit Auto (Bld) [Volum e fraction]Ordered By: Lavon Vicente on 02-01-2023 Hematocrit (Bld) [Volume fraction] 37.3 % 37-47 [facility] MCHC Auto (RBC) [Mass/Vol]Or dered By: Lavon Vicente on 02-01-2023 MCHC (RBC) [Mass/Vol] 29.2 g/dL 32-36 [facility] No Panel InformationOrdered By: Lavon Vicente on 02-01-2023 25.2 pg 27.0-32.0 [facility] 16.2 % 11.6-14.6 [facility] 51.0 fl 35.1-43.9 [facility] Platelets bldOrdered By: Estefany Vicente on 02-01-2023 Platelets (Bld) [#/Vol] 359 10*3/uL 150-450 [facility] Absolute lymphocyte countOrd ered By: Christine Lee on 01-26-2023 Lymphocytes Auto (Unsp spec) [#/Vol] 3.16 10*3/uL 0.83-4.51 [facility] Basophil percentageOrdered B y: Christine Lee on 01-26-2023 Basophil percentage 112 mg/dL 74-106 [facility] Basophil percentage 7.7 g/dL 6.4-8.2 [facility] Basophil percentage 0.20 mg/dL 0.20-1.00 [facility] Basophil percentage 139 mmol/L 136-145 [facility] Basophil percentage 3.9 mmol/L 3.5-5.1 [facility] Basophil percentage 103 mmol/L 98-107 [facility] Basophils (Bld) [#/Vol] 9.0 10*3/uL 4.4-11.0 [facility] Basophils (Bld) [#/Vol] 4.8 10*3/uL 2.0-7.7 [facility] Basophils/100 WBC (Bld) 53.6 % 47-70 [facility] Basophils/100 WBC (Bld) 2.8 % 0-5 [facility] Basophils/100 WBC (Bld) 0.7 % 0-1 [facility] Blood erythrocytes count (nu mber/volume)Ordered By: Christine Lee on 01-26-2023 RBC (Bld) [#/Vol] 4.28 10*6/uL 4.2-5.4 [facility] Blood hemoglobin measurement (mass/volume)Ordered By: Christine Lee on 01-26-2023 Hemoglobin (Bld) [Mass/Vol] 11.0 g/dL 12.0-15.0 [facility] Blood lymphocytes/100 leukoc ytesOrdered By: Christine Lee on 01-26-2023 Lymphocytes/100 WBC (Bld) 35.3 % 19-41 [facility] Blood monocytes/100 leukocyt esOrdered By: Christine Lee on 01-26-2023 Monocytes/100 WBC (Bld) 7.0 % 0-10 [facility] Blood platelet mean volumeOr dered By: Christine Lee on 01-26-2023 Platelet mean volume (Bld) [Entitic vol] 8.9 fL 6.2-12.0 [facility] Determination of erythrocyte mean corpuscular volume (MCV)Ordered By: Christine Lee on 01-26-2023 MCV (RBC) [Entitic vol] 84.6 fL 81-99 [facility] Hematocrit Auto (Bld) [Volum e fraction]Ordered By: Christine Lee on 01-26-2023 Hematocrit (Bld) [Volume fraction] 36.2 % 37-47 [facility] MCHC Auto (RBC) [Mass/Vol]Or dered By: Christine Lee on 01-26-2023 MCHC (RBC) [Mass/Vol] 30.4 g/dL 32-36 [facility] No Panel InformationOrdered By: Christine Lee on 01-26-2023 25.7 pg 27.0-32.0 [facility] 16.4 % 11.6-14.6 [facility] 50.8 fl 35.1-43.9 [facility] 0.600 % 0.0-0.9 [facility] 0 % 0-5 [facility] 151 mL/min >60 [facility] 183 mL/min >60 [facility] 109.26 ml/min [facility] 23.6 RATIO 10-20 [facility] 4.9 g/dL 2.2-4.2 [facility] 95 U/L 45-117 [facility] 29 U/L 13-56 [facility] 32.0 mmol/L 21.0-32.0 [facility] Platelets bldOrdered By: Diya Lee on 01-26-2023 Platelets (Bld) [#/Vol] 370 10*3/uL 150-450 [facility] Serum or plasma albumin miguel angel urement (mass/volume)Ordered By: Christine Lee on 01-26-2023 Albumin [Mass/Vol] 2.8 g/dL 3.2-5.0 [facility] Serum or plasma albumin/glob ulin mass ratioOrdered By: Christine Lee on 01-26-2023 Albumin/Globulin [Mass ratio] 0.6 {ratio} 0.9-2.4 [facility] Serum or plasma calcium miguel angel urement (mass/volume)Ordered By: Christine Lee on 01-26-2023 Calcium [Mass/Vol] 8.8 mg/dL 8.5-10.1 [facility] Serum or plasma creatinine m easurement (mass/volume)Ordered By: Christine Lee on 01-26-2023 Creatinine [Mass/Vol] 0.47 mg/dL 0.55-1.02 [facility] Serum or plasma urea nitroge n measurement (mass/volume)Ordered By: Christine Lee on 01-26-2023 Urea nitrogen [Mass/Vol] 11 mg/dL 7-18 [facility] Thin prep Papanicolaou smear with manual screeningOrdered By: Christine Lee on 01-26-2023 Thin prep Papanicolaou smear with manual screening 21 U/L 15-37 [facility] Thin prep Papanicolaou smear with manual screening 4 5-15 [facility] Absolute lymphocyte countOrd ered By: Lavon Vicente on 01-21-2023 Lymphocytes Auto (Unsp spec) [#/Vol] 3.22 10*3/uL 0.83-4.51 [facility] Bacteria identified Cx Nom ( U)Ordered By: Lavon Vicente on 01-21-2023 Culture, urine Morganella morganii sp morgani [facility] Culture, urine Pseudomonas aeruginosa [facility] Basophil percentageOrdered B y: Lavon Vicente on 01-21-2023 Basophils (Bld) [#/Vol] 11.2 10*3/uL 4.4-11.0 [facility] Basophils (Bld) [#/Vol] 6.7 10*3/uL 2.0-7.7 [facility] Basophils/100 WBC (Bld) 59.9 % 47-70 [facility] Basophils/100 WBC (Bld) 3.3 % 0-5 [facility] Basophils/100 WBC (Bld) 0.5 % 0-1 [facility] Bilirubin Test strip Ql (U)O rdered By: Lavon Vicente on 01-21-2023 Bilirubin Ql (U) 6 mg/dL Negative [facility] Blood erythrocytes count (nu mber/volume)Ordered By: Lavon Vicente on 01-21-2023 RBC (Bld) [#/Vol] 4.40 10*6/uL 4.2-5.4 [facility] Blood hemoglobin measurement (mass/volume)Ordered By: Lavon Vicente on 01-21-2023 Hemoglobin (Bld) [Mass/Vol] 10.9 g/dL 12.0-15.0 [facility] Blood lymphocytes/100 leukoc ytesOrdered By: Lavon Vicente on 01-21-2023 Lymphocytes/100 WBC (Bld) 28.8 % 19-41 [facility] Blood monocytes/100 leukocyt esOrdered By: Lavon Vicente on 01-21-2023 Monocytes/100 WBC (Bld) 7.1 % 0-10 [facility] Blood platelet mean volumeOr dered By: Lavon Vicente on 01-21-2023 Platelet mean volume (Bld) [Entitic vol] 9.9 fL 6.2-12.0 [facility] Determination of erythrocyte mean corpuscular volume (MCV)Ordered By: Lavon Vicente on 01-21-2023 MCV (RBC) [Entitic vol] 85.7 fL 81-99 [facility] Hematocrit Auto (Bld) [Volum e fraction]Ordered By: Lavon Vicente on 01-21-2023 Hematocrit (Bld) [Volume fraction] 37.7 % 37-47 [facility] Ketones Test strip Ql (U)Ord ered By: Lavon Vicente on 01-21-2023 Ketones Ql (U) 5 mg/dl Negative [facility] MCHC Auto (RBC) [Mass/Vol]Or dered By: Lavon Vicente on 01-21-2023 MCHC (RBC) [Mass/Vol] 28.9 g/dL 32-36 [facility] Nitrite Test strip Ql (U)Ord ered By: Lavon Vicente on 01-21-2023 Nitrite Ql (U) Positive Negative [facility] No Panel InformationOrdered By: Lavon Vicente on 01-21-2023 24.8 pg 27.0-32.0 [facility] 17.1 % 11.6-14.6 [facility] 53.5 fl 35.1-43.9 [facility] 0.400 % 0.0-0.9 [facility] 0 % 0-5 [facility] Platelets bldOrdered By: Estefany Vicente on 01-21-2023 Platelets (Bld) [#/Vol] 352 10*3/uL 150-450 [facility] Protein Test strip Ql (U)Ord ered By: Lavon Vicente on 01-21-2023 Protein Ql (U) 500 mg/dl Negative [facility] Urine blood detectionOrdered By: Lavon Vicente on 01-21-2023 RBC Ql (U) 150 /ul Negative [facility] Urine clarityOrdered By: Estefany Vicente on 01-21-2023 Clarity (U) Cloudy Clear [facility] Urine color determinationOrd ered By: Lavon Vicente on 01-21-2023 Color (U) Brown Yellow [facility] Urine glucose detectionOrder ed By: Lavon Vicente on 01-21-2023 Glucose Ql (U) Normal mg/dl Normal [facility] Urine leukocyte esterase det ection by dipstickOrdered By: Lavon Vicente on 01-21-2023 Leukocyte esterase Test strip Ql (U) 100 /ul Negative [facility] Urine pHOrdered By: Lavon alcala on 01-21-2023 pH (U) 8.0 [pH] 5.0 - 8.0 [facility] Urine specific gravity measu rementOrdered By: Lavon Vicente on 01-21-2023 Specific gravity (U) [Rel density] 1.015 1.002-1.030 [facility] Urobilinogen Auto test strip Ql (U)Ordered By: Lavon Vicente on 01-21-2023 Urobilinogen Ql (U) 8 mg/dl Normal [facility] Absolute lymphocyte countOrd ered By: Dr. Pastor on 11-16-2022 Lymphocytes Auto (Unsp spec) [#/Vol] 1.85 10*3/uL 0.83-4.51 [facility] Bacteria identified Cx Nom ( U)Ordered By: Nancy Wilcox on 11-16-2022 Culture, urine Escherichia coli [facility] Culture, urine Vancomycin Resist. E . faecium [facility] Basophil percentageOrdered B y: Dr. Pastor on 11-16-2022 Basophil percentage 121 mg/dL 74-106 [facility] Basophil percentage 7.3 g/dL 6.4-8.2 [facility] Basophil percentage 0.50 mg/dL 0.20-1.00 [facility] Basophil percentage 135 mmol/L 136-145 [facility] Basophil percentage 3.1 mmol/L 3.5-5.1 [facility] Basophil percentage 100 mmol/L 98-107 [facility] Basophils (Bld) [#/Vol] 8.8 10*3/uL 4.4-11.0 [facility] Basophils (Bld) [#/Vol] 6.1 10*3/uL 2.0-7.7 [facility] Basophils/100 WBC (Bld) 70.0 % 47-70 [facility] Basophils/100 WBC (Bld) 1.9 % 0-5 [facility] Basophils/100 WBC (Bld) 0.3 % 0-1 [facility] Blood erythrocytes count (nu mber/volume)Ordered By: Dr. Pastor on 11-16-2022 RBC (Bld) [#/Vol] 4.72 10*6/uL 4.2-5.4 [facility] Blood hemoglobin measurement (mass/volume)Ordered By: Dr. Pastor on 11-16-2022 Hemoglobin (Bld) [Mass/Vol] 12.2 g/dL 12.0-15.0 [facility] Blood lymphocytes/100 leukoc ytesOrdered By: Dr. Pastor on 11-16-2022 Lymphocytes/100 WBC (Bld) 21.1 % 19-41 [facility] Blood monocytes/100 leukocyt esOrdered By: Dr. Pastor on 11-16-2022 Monocytes/100 WBC (Bld) 6.4 % 0-10 [facility] Blood platelet mean volumeOr dered By: Dr. Pastor on 11-16-2022 Platelet mean volume (Bld) [Entitic vol] 9.5 fL 6.2-12.0 [facility] Determination of erythrocyte mean corpuscular volume (MCV)Ordered By: Dr. Pastor on 11-16-2022 MCV (RBC) [Entitic vol] 82.8 fL 81-99 [facility] Hematocrit Auto (Bld) [Volum e fraction]Ordered By: Dr. Pastor on 11-16-2022 Hematocrit (Bld) [Volume fraction] 39.1 % 37-47 [facility] MCHC Auto (RBC) [Mass/Vol]Or dered By: Dr. Pastor on 11-16-2022 MCHC (RBC) [Mass/Vol] 31.2 g/dL 32-36 [facility] No Panel InformationOrdered By: Dr. Pastor on 11-16-2022 25.8 pg 27.0-32.0 [facility] 15.9 % 11.6-14.6 [facility] 48.6 fl 35.1-43.9 [facility] 0.300 % 0.0-0.9 [facility] 0 % 0-5 [facility] 193 mL/min >60 [facility] 233 mL/min >60 [facility] 136.62 ml/min [facility] 42.3 RATIO 10-20 [facility] 4.6 g/dL 2.2-4.2 [facility] 90 U/L 45-117 [facility] 42 U/L 13-56 [facility] 26.0 mmol/L 21.0-32.0 [facility] Platelets bldOrdered By: Dr. Pastor on 11-16-2022 Platelets (Bld) [#/Vol] 260 10*3/uL 150-450 [facility] Serum or plasma albumin miguel angel urement (mass/volume)Ordered By: Dr. Pastor on 11-16-2022 Albumin [Mass/Vol] 2.7 g/dL 3.2-5.0 [facility] Serum or plasma albumin/glob ulin mass ratioOrdered By: Dr. Pastor on 11-16-2022 Albumin/Globulin [Mass ratio] 0.6 {ratio} 0.9-2.4 [facility] Serum or plasma calcium miguel angel urement (mass/volume)Ordered By: Dr. Pastor on 11-16-2022 Calcium [Mass/Vol] 8.8 mg/dL 8.5-10.1 [facility] Serum or plasma creatinine m easurement (mass/volume)Ordered By: Dr. Pastor on 11-16-2022 Creatinine [Mass/Vol] 0.38 mg/dL 0.55-1.02 [facility] Serum or plasma urea nitroge n measurement (mass/volume)Ordered By: Dr. Pastor on 11-16-2022 Urea nitrogen [Mass/Vol] 16 mg/dL 7-18 [facility] Thin prep Papanicolaou smear with manual screeningOrdered By: Dr. Pastor on 11-16-2022 Thin prep Papanicolaou smear with manual screening 25 U/L 15-37 [facility] Thin prep Papanicolaou smear with manual screening 9 5-15 [facility] Basophil percentageOrdered B y: Nancy Wilcox on 11-15-2022 Basophil percentage 1.1 mmol/L 0.4-2.0 [facility] No Panel InformationOrdered By: Dr. Howe on 11-15-2022 2.0 mg/dL 1.6-2.6 [facility] No Panel InformationOrdered By: Dr. River on 11-15-2022 No growth in 5 days. [facility] Absolute lymphocyte countOrd ered By: Nancy Wilcox on 11-14-2022 Lymphocytes Auto (Unsp spec) [#/Vol] 3.91 10*3/uL 0.83-4.51 [facility] Bacteria identified Cx Nom ( U)Ordered By: Nancy Wilcox on 11-14-2022 Culture, urine Escherichia coli [facility] Culture, urine Vancomycin Resist. E . faecium [facility] Bacteria identified Cx Nom ( U)Ordered By: Lavon Vicente on 11-14-2022 Culture, urine Vancomycin Resist. E . faecium [facility] Basophil percentageOrdered B y: Nancy Wilcox on 11-14-2022 Basophil percentage 116 mg/dL 74-106 [facility] Basophil percentage 8.5 g/dL 6.4-8.2 [facility] Basophil percentage 0.40 mg/dL 0.20-1.00 [facility] Basophil percentage 140 mmol/L 136-145 [facility] Basophil percentage 3.3 mmol/L 3.5-5.1 [facility] Basophil percentage 101 mmol/L 98-107 [facility] Basophil percentage 2.3 mmol/L 0.4-2.0 [facility] Basophils (Bld) [#/Vol] 12.6 10*3/uL 4.4-11.0 [facility] Basophils (Bld) [#/Vol] 7.3 10*3/uL 2.0-7.7 [facility] Basophils/100 WBC (Bld) 57.6 % 47-70 [facility] Basophils/100 WBC (Bld) 1.6 % 0-5 [facility] Basophils/100 WBC (Bld) 0.4 % 0-1 [facility] Basophil percentage 50-100 SEEN /hpf 0-5 [facility] Bilirubin Test strip Ql (U)O rdered By: Nancy Wilcox on 11-14-2022 Bilirubin Ql (U) 1 mg/dL Negative [facility] Blood erythrocytes count (nu mber/volume)Ordered By: Nancy Wilcox on 11-14-2022 RBC (Bld) [#/Vol] 5.04 10*6/uL 4.2-5.4 [facility] Blood hemoglobin measurement (mass/volume)Ordered By: Nancy Wilcox on 11-14-2022 Hemoglobin (Bld) [Mass/Vol] 13.2 g/dL 12.0-15.0 [facility] Blood lymphocytes/100 leukoc ytesOrdered By: Nancy Wilcox on 11-14-2022 Lymphocytes/100 WBC (Bld) 31.0 % 19-41 [facility] Blood monocytes/100 leukocyt esOrdered By: Nancy Wilcox on 11-14-2022 Monocytes/100 WBC (Bld) 9.1 % 0-10 [facility] Blood platelet mean volumeOr dered By: Nancy Wilcox on 11-14-2022 Platelet mean volume (Bld) [Entitic vol] 9.4 fL 6.2-12.0 [facility] Determination of erythrocyte mean corpuscular volume (MCV)Ordered By: Nancy Wilcox on 11-14-2022 MCV (RBC) [Entitic vol] 82.7 fL 81-99 [facility] Hematocrit Auto (Bld) [Volum e fraction]Ordered By: Nancy Wilcox on 11-14-2022 Hematocrit (Bld) [Volume fraction] 41.7 % 37-47 [facility] Hyaline casts LM.LPF (Urine sed) [#/Area]Ordered By: Nancy Wilcox on 11-14-2022 Hyaline casts (Urine sed) [#/Area] 0 /[LPF] 0-5 [facility] INR in Blood by Coagulation assayOrdered By: Nancy Wilcox on 11-14-2022 INR Coag (Bld) [Relative time] 1.1 {INR} [facility] Ketones Test strip Ql (U)Ord ered By: Nancy Wilcox on 11-14-2022 Ketones Ql (U) 15 mg/dl Negative [facility] MCHC Auto (RBC) [Mass/Vol]Or dered By: Nancy Wilcox on 11-14-2022 MCHC (RBC) [Mass/Vol] 31.7 g/dL 32-36 [facility] Mucus LM Ql (Urine sed)Order ed By: Nancy Wilcox on 11-14-2022 Mucus Ql (Urine sed) 1+ /hpf [facility] Nitrite Test strip Ql (U)Ord ered By: Nancy Wilcox on 11-14-2022 Nitrite Ql (U) Negative Negative [facility] No Panel InformationOrdered By: Nancy Wilcox on 11-14-2022 No growth in 5 days. [facility] 26.2 pg 27.0-32.0 [facility] 16.8 % 11.6-14.6 [facility] 50.3 fl 35.1-43.9 [facility] 0.300 % 0.0-0.9 [facility] 0 % 0-5 [facility] 13.8 SECONDS 11.7-14.9 [facility] 20.8 Seconds 24.1-36.2 [facility] 88 mL/min >60 [facility] 106 mL/min >60 [facility] 69.22 ml/min [facility] 29.5 RATIO 10-20 [facility] 5.2 g/dL 2.2-4.2 [facility] 99 U/L 45-117 [facility] 72 U/L 13-56 [facility] 31.0 mmol/L 21.0-32.0 [facility] 0-5 SEEN /hpf 0-5 [facility] Platelets bldOrdered By: Rebecca Wilcox on 11-14-2022 Platelets (Bld) [#/Vol] 376 10*3/uL 150-450 [facility] Protein Test strip Ql (U)Ord ered By: Nancy Wilcox on 11-14-2022 Protein Ql (U) 500 mg/dl Negative [facility] Serum or plasma albumin miguel angel urement (mass/volume)Ordered By: Nancy Wilcox on 11-14-2022 Albumin [Mass/Vol] 3.3 g/dL 3.2-5.0 [facility] Serum or plasma albumin/glob ulin mass ratioOrdered By: Nancy Wilcox on 11-14-2022 Albumin/Globulin [Mass ratio] 0.6 {ratio} 0.9-2.4 [facility] Serum or plasma calcium miguel angel urement (mass/volume)Ordered By: Nancy Wilcox on 11-14-2022 Calcium [Mass/Vol] 9.4 mg/dL 8.5-10.1 [facility] Serum or plasma creatinine m easurement (mass/volume)Ordered By: Nancy Wilcox on 11-14-2022 Creatinine [Mass/Vol] 0.75 mg/dL 0.55-1.02 [facility] Serum or plasma urea nitroge n measurement (mass/volume)Ordered By: Nancy Wilcox on 11-14-2022 Urea nitrogen [Mass/Vol] 22 mg/dL 7-18 [facility] Squamous epithelial cells de tection in urine sediment by light microscopyOrdered By: Nancy Wilcox on 11-14-2022 Epithelial cells.squamous LM Ql (Urine sed) 10-25 SEEN /hpf 5-10 [facility] Thin prep Papanicolaou smear with manual screeningOrdered By: Nancy Wilcox on 11-14-2022 Thin prep Papanicolaou smear with manual screening 55 U/L 15-37 [facility] Thin prep Papanicolaou smear with manual screening 8 5-15 [facility] Urine blood detectionOrdered By: Nancy Wilcox on 11-14-2022 RBC Ql (U) 250 /ul Negative [facility] RBC Ql (U) 10-25 SEEN /hpf 0-5 [facility] Urine clarityOrdered By: Rebecca Wilcox on 11-14-2022 Clarity (U) Cloudy Clear [facility] Urine color determinationOrd ered By: Nancy Wilcox on 11-14-2022 Color (U) Yellow Yellow [facility] Urine glucose detectionOrder ed By: Nancy Wilcox on 11-14-2022 Glucose Ql (U) Normal mg/dl Normal [facility] Urine leukocyte esterase det ection by dipstickOrdered By: Nancy Wilcox on 11-14-2022 Leukocyte esterase Test strip Ql (U) 500 /ul Negative [facility] Urine pHOrdered By: Nancy martinez on 11-14-2022 pH (U) 6.5 [pH] 5.0 - 8.0 [facility] Urine sediment bacteria coun t by microscopy (number/high power field)Ordered By: Nancy Wilcox on 11-14-2022 Bacteria LM.HPF (Urine sed) [#/Area] 2 /[HPF] None Seen [facility] Urine specific gravity measu rementOrdered By: Nancy Wilcox on 11-14-2022 Specific gravity (U) [Rel density] 1.020 1.002-1.030 [facility] Urobilinogen Auto test strip Ql (U)Ordered By: Nancy Wilcox on 11-14-2022 Urobilinogen Ql (U) 1 mg/dl Normal [facility] Bacteria identified Cx Nom ( U)Ordered By: Dr. River on 11-13-2022 Culture, urine Vancomycin Resist. E . faecium [facility] Bacteria identified Cx Nom ( U)Ordered By: Lavon Vicente on 11-12-2022 Culture, urine Vancomycin Resist. E . faecium [facility] Bilirubin Test strip Ql (U)O rdered By: Lavon Vicente on 11-12-2022 Bilirubin Ql (U) 1 mg/dL Negative [facility] Ketones Test strip Ql (U)Ord ered By: Lavon Vicente on 11-12-2022 Ketones Ql (U) 150 mg/dl Negative [facility] Nitrite Test strip Ql (U)Ord ered By: Lavon Vicente on 11-12-2022 Nitrite Ql (U) Negative Negative [facility] No Panel InformationOrdered By: Lavon Vicente on 11-12-2022 [facility] Negative < 50 ng/mL [facility] Protein Test strip Ql (U)Ord ered By: Lavon Vicente on 11-12-2022 Protein Ql (U) 100 mg/dl Negative [facility] Urine blood detectionOrdered By: Lavon Vicente on 11-12-2022 RBC Ql (U) 250 /ul Negative [facility] Urine clarityOrdered By: Estefany Vicente on 11-12-2022 Clarity (U) Sl. Cloudy Clear [facility] Urine color determinationOrd ered By: Lavon Vicente on 11-12-2022 Color (U) Yellow Yellow [facility] Urine glucose detectionOrder ed By: Lavon Vicente on 11-12-2022 Glucose Ql (U) Normal mg/dl Normal [facility] Urine leukocyte esterase det ection by dipstickOrdered By: Lavon Vicente on 11-12-2022 Leukocyte esterase Test strip Ql (U) 500 /ul Negative [facility] Urine pHOrdered By: Lavon alcala on 11-12-2022 pH (U) 6.0 [pH] 5.0 - 8.0 [facility] Urine phencyclidine (PCP) de tectionOrdered By: Lavon Vicente on 11-12-2022 Phencyclidine Ql (U) Negative < 25 ng/mL [facility] Urine specific gravity measu rementOrdered By: Lavon Vicente on 11-12-2022 Specific gravity (U) [Rel density] 1.020 1.002-1.030 [facility] Urobilinogen Auto test strip Ql (U)Ordered By: Lavon Vicente on 11-12-2022 Urobilinogen Ql (U) Normal mg/dl Normal [facility] Basophil percentageOrdered B y: Lavon Vicente on 11-11-2022 Basophil percentage 102 mg/dL 74-106 [facility] Basophil percentage 7.7 g/dL 6.4-8.2 [facility] Basophil percentage 0.40 mg/dL 0.20-1.00 [facility] Basophil percentage 139 mmol/L 136-145 [facility] Basophil percentage 3.3 mmol/L 3.5-5.1 [facility] Basophil percentage 105 mmol/L 98-107 [facility] Basophil percentage 26.0 umol/L 11-32 [facility] Basophils (Bld) [#/Vol] 11.2 10*3/uL 4.4-11.0 [facility] Blood erythrocytes count (nu mber/volume)Ordered By: Lavon Vicente on 11-11-2022 RBC (Bld) [#/Vol] 4.60 10*6/uL 4.2-5.4 [facility] Blood hemoglobin measurement (mass/volume)Ordered By: Lavon Vicente on 11-11-2022 Hemoglobin (Bld) [Mass/Vol] 11.9 g/dL 12.0-15.0 [facility] Blood platelet mean volumeOr dered By: Lavon Vicente on 11-11-2022 Platelet mean volume (Bld) [Entitic vol] 9.3 fL 6.2-12.0 [facility] Determination of erythrocyte mean corpuscular volume (MCV)Ordered By: Lavon Vicente on 11-11-2022 MCV (RBC) [Entitic vol] 81.5 fL 81-99 [facility] Hematocrit Auto (Bld) [Volum e fraction]Ordered By: Lavon Vicente on 11-11-2022 Hematocrit (Bld) [Volume fraction] 37.5 % 37-47 [facility] MCHC Auto (RBC) [Mass/Vol]Or dered By: Lavon Vicente on 11-11-2022 MCHC (RBC) [Mass/Vol] 31.7 g/dL 32-36 [facility] No Panel InformationOrdered By: Lavon Vicente on 11-11-2022 25.9 pg 27.0-32.0 [facility] 16.0 % 11.6-14.6 [facility] 47.1 fl 35.1-43.9 [facility] 127 mL/min >60 [facility] 154 mL/min >60 [facility] [facility]7 RATIO 10-20 [facility] 4.6 g/dL 2.2-4.2 [facility] 94 U/L 45-117 [facility] 72 U/L 13-56 [facility] 21.0 mmol/L 21.0-32.0 [facility] 1.58 uIU/mL 0.358-3.74 [facility] 35.2 ng/mL [facility] Platelets bldOrdered By: Estefany Vicente on 11-11-2022 Platelets (Bld) [#/Vol] 384 10*3/uL 150-450 [facility] Serum or plasma albumin miguel angel urement (mass/volume)Ordered By: Lavon Vicente on 11-11-2022 Albumin [Mass/Vol] 3.1 g/dL 3.2-5.0 [facility] Serum or plasma albumin/glob ulin mass ratioOrdered By: Lavon Vicente on 11-11-2022 Albumin/Globulin [Mass ratio] 0.7 {ratio} 0.9-2.4 [facility] Serum or plasma calcium miguel angel urement (mass/volume)Ordered By: Lavon Vicente on 11-11-2022 Calcium [Mass/Vol] 9.2 mg/dL 8.5-10.1 [facility] Serum or plasma creatinine m easurement (mass/volume)Ordered By: Lavon Vicente on 11-11-2022 Creatinine [Mass/Vol] 0.54 mg/dL 0.55-1.02 [facility] Serum or plasma urea nitroge n measurement (mass/volume)Ordered By: Lavon Vicente on 11-11-2022 Urea nitrogen [Mass/Vol] 22 mg/dL 7-18 [facility] Thin prep Papanicolaou smear with manual screeningOrdered By: Lavon Vicente on 11-11-2022 Thin prep Papanicolaou smear with manual screening 62 U/L 15-37 [facility] Thin prep Papanicolaou smear with manual screening 13 5-15 [facility] Basophil percentageOrdered B y: Lavon Vicente on 11-10-2022 Basophil percentage 87 mg/dL 74-106 [facility] Basophil percentage 137 mmol/L 136-145 [facility] Basophil percentage 3.7 mmol/L 3.5-5.1 [facility] Basophil percentage 106 mmol/L 98-107 [facility] No Panel InformationOrdered By: Lavon Vicente on 11-10-2022 191 mL/min >60 [facility] 232 mL/min >60 [facility] 39.5 RATIO 10-20 [facility] 16.0 mmol/L 21.0-32.0 [facility] Serum or plasma calcium miguel angel urement (mass/volume)Ordered By: Lavon Vicente on 11-10-2022 Calcium [Mass/Vol] 8.2 mg/dL 8.5-10.1 [facility] Serum or plasma creatinine m easurement (mass/volume)Ordered By: Lavon Vicente on 11-10-2022 Creatinine [Mass/Vol] 0.38 mg/dL 0.55-1.02 [facility] Serum or plasma urea nitroge n measurement (mass/volume)Ordered By: Lavon Vicente on 11-10-2022 Urea nitrogen [Mass/Vol] 15 mg/dL - [facility] Thin prep Papanicolaou smear with manual screeningOrdered By: Lavon Vicente on 11-10-2022 Thin prep Papanicolaou smear with manual screening 15 -15 [facility] Absolute lymphocyte countOrd ered By: Dr. River on 11-09-2022 Lymphocytes Auto (Unsp spec) [#/Vol] 2.85 10*3/uL 0.83-4.51 [facility] Bacteria identified Cx Nom ( U)Ordered By: Romero River on 11-09-2022 Culture, urine Vancomycin Resist. E . faecium [facility] Basophil percentageOrdered B y: Dr. River on 11-09-2022 Basophil percentage 50-100 SEEN /hpf 0-5 [facility] Basophil percentage 1.6 mmol/L 0.4-2.0 [facility] Basophils (Bld) [#/Vol] 12.3 10*3/uL 4.4-11.0 [facility] Basophils (Bld) [#/Vol] 8.1 10*3/uL 2.0-7.7 [facility] Basophils/100 WBC (Bld) 0.4 % 0-1 [facility] Basophils/100 WBC (Bld) 65.6 % 47-70 [facility] Basophils/100 WBC (Bld) 3.3 % 0-5 [facility] Eosinophils/100 WBC (Bld) 3.3 % 0-5 [facility] Lactate [Moles/Vol] 1.6 mmol/L 0.4-2.0 [facility] Neutrophils (Bld) [#/Vol] 8.1 10*3/uL 2.0-7.7 [facility] Neutrophils/100 WBC (Bld) 65.6 % 47-70 [facility] WBC (Bld) [#/Vol] 12.3 10*3/uL 4.4-11.0 [facility] Basophil percentage 100 mg/dL 74-106 [facility] Basophil percentage 139 mmol/L 136-145 [facility] Basophil percentage 3.6 mmol/L 3.5-5.1 [facility] Basophil percentage 106 mmol/L 98-107 [facility] Chloride [Moles/Vol] 106 mmol/L 98-107 [facility] Glucose [Mass/Vol] 100 mg/dL 74-106 [facility] Comment on above: Fasting Glucose resu lt from 100 to 125 mg/dL suggests IMPAIRED HOMEOSTASIS per A.D.A. criteria. Potassium [Moles/Vol] 3.6 mmol/L 3.5-5.1 [facility] Comment on above: Moderate Hemolysis, Result may be falsely increased. Sodium [Moles/Vol] 139 mmol/L 136-145 [facility] Bilirubin Test strip Ql (U)O rdered By: Dr. River on 11-09-2022 Bilirubin Ql (U) 1 mg/dL Negative [facility] Comment on above: COLOR OF URINE MAY A FFECT DIPSTICK RESULTS. Blood erythrocytes count (nu mber/volume)Ordered By: Dr. River on 11-09-2022 RBC (Bld) [#/Vol] 4.68 10*6/uL 4.2-5.4 [facility] Blood hemoglobin measurement (mass/volume)Ordered By: Dr. River on 11-09-2022 Hemoglobin (Bld) [Mass/Vol] 12.4 g/dL 12.0-15.0 [facility] Blood lymphocytes/100 leukoc ytesOrdered By: Dr. River on 11-09-2022 Lymphocytes/100 WBC (Bld) 23.2 % 19-41 [facility] Blood monocytes/100 leukocyt esOrdered By: Dr. River on 11-09-2022 Monocytes/100 WBC (Bld) 7.2 % 0-10 [facility] Blood platelet mean volumeOr dered By: Dr. River on 11-09-2022 Platelet mean volume (Bld) [Entitic vol] 9.1 fL 6.2-12.0 [facility] Determination of erythrocyte mean corpuscular volume (MCV)Ordered By: Dr. River on 11-09-2022 MCV (RBC) [Entitic vol] 83.1 fL 81-99 [facility] Hematocrit Auto (Bld) [Volum e fraction]Ordered By: Dr. Rivre on 11-09-2022 Hematocrit (Bld) [Volume fraction] 38.9 % 37-47 [facility] INR in Blood by Coagulation assayOrdered By: Dr. River on 11-09-2022 INR Coag (Bld) [Relative time] 1.1 {INR} [facility] Ketones Test strip Ql (U)Ord ered By: Dr. River on 11-09-2022 Ketones Ql (U) 150 mg/dl Negative [facility] Comment on above: CRITICAL VALUE *HCRI TICAL VALUE VERIFIED. CALLED TO 11/09/22 1703 Roman Bradford.RESULTS READ BACK BY SAME JUN CHAVEZ. Laboratory - Chemistry and C hemistry - challengeOrdered By: Dr. River on 11-09-2022 CO2 [Moles/Vol] 20.0 mmol/L 21.0-32.0 [facility] Urea nitrogen/Creatinine [Mass ratio] 59.0 mg/mg 10-20 [facility] Laboratory - CoagulationOrde red By: Dr. River on 11-09-2022 aPTT Coag (Bld) [Time] 30.2 s 24.1-36.2 [facility] PT Coag (PPP) [Time] 14.0 s 11.7-14.9 [facility] Laboratory - Hematology and Cell countsOrdered By: Dr. River on 11-09-2022 Erythrocyte distribution width (RBC) [Entitic vol] 46.9 fL 35.1-43.9 [facility] Erythrocyte distribution width (RBC) [Ratio] 15.9 % 11.6-14.6 [facility] Immature granulocytes/100 WBC (Bld) 0.300 % 0.0-0.9 [facility] Comment on above: IG% - Immature Granu locytes (promyelocytes, myelocytes and metamyelocytes) > 1% indicates that a LEFT SHIFT is Present. MCH (RBC) [Entitic mass] 26.5 pg 27.0-32.0 [facility] Nucleated RBC/100 WBC (Bld) [Ratio] 0 % 0-5 [facility] MCHC Auto (RBC) [Mass/Vol]Or dered By: Dr. River on 11-09-2022 MCHC (RBC) [Mass/Vol] 31.9 g/dL 32-36 [facility] Mucus LM Ql (Urine sed)Order ed By: Dr. River on 11-09-2022 Mucus Ql (Urine sed) 0 SEEN /hpf [facility] Nitrite Test strip Ql (U)Ord ered By: Dr. River on 11-09-2022 Nitrite Ql (U) Positive Negative [facility] No Panel InformationOrdered By: Dr. River on 11-09-2022 26.5 pg 27.0-32.0 [facility] 15.9 % 11.6-14.6 [facility] 46.9 fl 35.1-43.9 [facility] 0.300 % 0.0-0.9 [facility] 0 % 0-5 [facility] 14.0 SECONDS 11.7-14.9 [facility] 30.2 Seconds 24.1-36.2 [facility] Estimated Creatinine Clearance Calc 173.05 ml/min [facility] Estimated GFR (MDRD) Amer 299 mL/min >60 [facility] Comment on above: GFR Calc Estimated GFR (MDRD) Non-Af Amer 247 mL/min >60 [facility] Comment on above: Non- GFR Calc 247 mL/min >60 [facility] 299 mL/min >60 [facility] 173.05 ml/min [facility] 59.0 RATIO 10-20 [facility] 20.0 mmol/L 21.0-32.0 [facility] No Panel InformationOrdered By: Romero River on 11-09-2022 No growth in 5 days. [facility] Platelets bldOrdered By: Dr. River on 11-09-2022 Platelets (Bld) [#/Vol] 391 10*3/uL 150-450 [facility] Protein Test strip Ql (U)Ord ered By: Dr. River on 11-09-2022 Protein Ql (U) 100 mg/dl Negative [facility] Serum or plasma calcium miguel angel urement (mass/volume)Ordered By: Dr. River on 11-09-2022 Calcium [Mass/Vol] 8.6 mg/dL 8.5-10.1 [facility] Serum or plasma creatinine m easurement (mass/volume)Ordered By: Dr. River on 11-09-2022 Creatinine [Mass/Vol] 0.30 mg/dL 0.55-1.02 [facility] Comment on above: The validity of the calculated GFR & GFRAA in patients over 70 years has not been determined. Clinical correlation is essential. Serum or plasma urea nitroge n measurement (mass/volume)Ordered By: Dr. River on 11-09-2022 Urea nitrogen [Mass/Vol] 18 mg/dL 7-18 [facility] Squamous epithelial cells de tection in urine sediment by light microscopyOrdered By: Dr. River on 11-09-2022 Epithelial cells.squamous LM Ql (Urine sed) 0-5 SEEN /hpf 5-10 [facility] Thin prep Papanicolaou smear with manual screeningOrdered By: Dr. River on 11-09-2022 Thin prep Papanicolaou smear with manual screening 13 5-15 [facility] Urine blood detectionOrdered By: Dr. River on 11-09-2022 RBC Ql (U) 250 /ul Negative [facility] RBC Ql (U) > 100 SEEN /hpf 0-5 [facility] Urine clarityOrdered By: Dr. River on 11-09-2022 Clarity (U) Cloudy Clear [facility] Urine color determinationOrd ered By: Dr. River on 11-09-2022 Color (U) Latonya Yellow [facility] Urine glucose detectionOrder ed By: Dr. River on 11-09-2022 Glucose Ql (U) Normal mg/dl Normal [facility] Urine leukocyte esterase det ection by dipstickOrdered By: Dr. River on 11-09-2022 Leukocyte esterase Test strip Ql (U) 500 /ul Negative [facility] Urine pHOrdered By: Dr. Janae payton on 11-09-2022 pH (U) 6.0 [pH] 5.0 - 8.0 [facility] Urine sediment bacteria coun t by microscopy (number/high power field)Ordered By: Dr. River on 11-09-2022 Bacteria LM.HPF (Urine sed) [#/Area] RARE /hpf None Seen [facility] Urine specific gravity measu rementOrdered By: Dr. River on 11-09-2022 Specific gravity (U) [Rel density] 1.025 1.002-1.030 [facility] Urobilinogen Auto test strip Ql (U)Ordered By: Dr. River on 11-09-2022 Urobilinogen Ql (U) 1 mg/dl Normal [facility] Absolute lymphocyte countOrd ered By: Dr. Acharya on 11-06-2022 Lymphocytes Auto (Unsp spec) [#/Vol] 3.39 10*3/uL 0.83-4.51 [facility] Basophil percentageOrdered B y: Dr. Acharya on 11-06-2022 Basophil percentage >100 SEEN /hpf 0-5 [facility] Basophil percentage 157 mg/dL 74-106 [facility] Basophil percentage 7.7 g/dL 6.4-8.2 [facility] Basophil percentage 0.30 mg/dL 0.20-1.00 [facility] Basophil percentage 143 mmol/L 136-145 [facility] Basophil percentage 4.5 mmol/L 3.5-5.1 [facility] Basophil percentage 103 mmol/L 98-107 [facility] Basophil percentage 1.2 mmol/L 0.4-2.0 [facility] Basophils (Bld) [#/Vol] 11.9 10*3/uL 4.4-11.0 [facility] Basophils (Bld) [#/Vol] 7.6 10*3/uL 2.0-7.7 [facility] Basophils/100 WBC (Bld) 0.4 % 0-1 [facility] Basophils/100 WBC (Bld) 64.3 % 47-70 [facility] Basophils/100 WBC (Bld) 1.3 % 0-5 [facility] Bilirubin [Mass/Vol] 0.30 mg/dL 0.20-1.00 [facility] Comment on above: For patients on eltr ombopag therapy, use of Dimension Amanda TBIL is not recommended. Chloride [Moles/Vol] 103 mmol/L 98-107 [facility] Eosinophils/100 WBC (Bld) 1.3 % 0-5 [facility] Glucose [Mass/Vol] 157 mg/dL 74-106 [facility] Comment on above: Fasting Glucose resu lt greater than or equal to 126 mg/dL suggests DIABETES MELLITUS per A.D.A. criteria. Lactate [Moles/Vol] 1.2 mmol/L 0.4-2.0 [facility] Neutrophils (Bld) [#/Vol] 7.6 10*3/uL 2.0-7.7 [facility] Neutrophils/100 WBC (Bld) 64.3 % 47-70 [facility] Potassium [Moles/Vol] 4.5 mmol/L 3.5-5.1 [facility] Protein [Mass/Vol] 7.7 g/dL 6.4-8.2 [facility] Sodium [Moles/Vol] 143 mmol/L 136-145 [facility] WBC (Bld) [#/Vol] 11.9 10*3/uL 4.4-11.0 [facility] Bilirubin Test strip Ql (U)O rdered By: Dr. Acharya on 11-06-2022 Bilirubin Ql (U) Negative Negative [facility] Blood erythrocytes count (nu mber/volume)Ordered By: Dr. Acharya on 11-06-2022 RBC (Bld) [#/Vol] 4.64 10*6/uL 4.2-5.4 [facility] Blood hemoglobin measurement (mass/volume)Ordered By: Dr. Acharya on 11-06-2022 Hemoglobin (Bld) [Mass/Vol] 11.8 g/dL 12.0-15.0 [facility] Blood lymphocytes/100 leukoc ytesOrdered By: Dr. Acharya on 11-06-2022 Lymphocytes/100 WBC (Bld) 28.6 % 19-41 [facility] Blood monocytes/100 leukocyt esOrdered By: Dr. Acharya on 11-06-2022 Monocytes/100 WBC (Bld) 4.8 % 0-10 [facility] Blood platelet mean volumeOr dered By: Dr. Acharya on 11-06-2022 Platelet mean volume (Bld) [Entitic vol] 9.0 fL 6.2-12.0 [facility] Determination of erythrocyte mean corpuscular volume (MCV)Ordered By: Dr. Acharya on 11-06-2022 MCV (RBC) [Entitic vol] 83.0 fL 81-99 [facility] HCO3 (BldA) [Moles/Vol]Order ed By: Dr. Acharya on 11-06-2022 HCO3 (Bld) [Moles/Vol] 34 mmol/L - [facility] Hematocrit Auto (Bld) [Volum e fraction]Ordered By: Dr. Acharya on 11-06-2022 Hematocrit (Bld) [Volume fraction] 38.5 % 37-47 [facility] Ketones Test strip Ql (U)Ord ered By: Dr. Acharya on 11-06-2022 Ketones Ql (U) Negative Negative [facility] Laboratory - Chemistry and C hemistry - challengeOrdered By: Dr. Acharya on 11-06-2022 CO2 [Moles/Vol] 36 mmol/L 23-33 [facility] ALP [Catalytic activity/Vol] 117 U/L 45-117 [facility] ALT [Catalytic activity/Vol] 58 U/L 13-56 [facility] CO2 [Moles/Vol] 36.0 mmol/L 21.0-32.0 [facility] Globulin (S) [Mass/Vol] 4.6 g/dL 2.2-4.2 [facility] Lipase [Catalytic activity/Vol] 42 U/L 13-75 [facility] Comment on above: Please note:LIPASE r evised reference range effective 22. New Lipase methodology. Expected to produce lower values than the previous assay method. NEW Reference Range: 13 - 75 U/L Urea nitrogen/Creatinine [Mass ratio] 26.8 mg/mg 10-20 [facility] Laboratory - Drug toxicology Ordered By: Dr. Acharya on 11-06-2022 Amphetamines Ql (U) Negative <1000 ng/mL [facility] Benzodiazepines Ql (U) Negative < 200 ng/mL [facility] Cannabinoids Screen Ql (U) Negative < 50 ng/mL [facility] Cocaine Ql (U) Negative < 300 ng/mL [facility] Opiates Ql (U) Negative < 300 ng/mL [facility] Laboratory - Hematology and Cell countsOrdered By: Dr. Acharya on 11-06-2022 Erythrocyte distribution width (RBC) [Entitic vol] 47.9 fL 35.1-43.9 [facility] Erythrocyte distribution width (RBC) [Ratio] 15.9 % 11.6-14.6 [facility] Immature granulocytes/100 WBC (Bld) 0.600 % 0.0-0.9 [facility] Comment on above: IG% - Immature Granu locytes (promyelocytes, myelocytes and metamyelocytes) > 1% indicates that a LEFT SHIFT is Present. MCH (RBC) [Entitic mass] 25.4 pg 27.0-32.0 [facility] Nucleated RBC/100 WBC (Bld) [Ratio] 0 % 0-5 [facility] MCHC Auto (RBC) [Mass/Vol]Or dered By: Dr. Acharya on 11-06-2022 MCHC (RBC) [Mass/Vol] 30.6 g/dL 32-36 [facility] Mucus LM Ql (Urine sed)Order ed By: Dr. Acharya on 11-06-2022 Mucus Ql (Urine sed) 0 SEEN /hpf [facility] Nitrite Test strip Ql (U)Ord ered By: Dr. Acharya on 11-06-2022 Nitrite Ql (U) Positive Negative [facility] No Panel InformationOrdered By: Dr. Acharya on 11-06-2022 MDMA (Ecstasy) Screen Negative < 500 ng/mL [facility] Urine Barbiturates Screen Negative < 200 ng/mL [facility] Urine Drug Screen Comment [facility] Comment on above: CONFIRMATORY TESTING FOR ALL POSITIVE URINE DRUG SCREENRESULTS WILL ONLY BE SENT OUT UPON PHYSICIAN ORDER. VISTA Urine Drug Screen methods provide only preliminaryanalytical test results. A more specific alternate chemicalmethod must be used in order to obtain a confirmedanalytical result. Gas chromatography/mass spectrometery(GC/MS) is the preferred confirmatory method. Clinicalconsideration and professional judgement should be appliedto any drug of abuse test result, particularly whenpreliminary positive results are used. URINE TCA TESTING MUST BE ORDERED SEPARATELY. USE TESTMNEMONIC: [facility] Urine Methadone Screen Negative < 300 ng/mL [facility] Negative < 50 ng/mL [facility] Bed Mix Venous Bld PCO2 at Pat Temp 54.1 mmHg 41-51 [facility] Blood Gas Liter Flow 2.0 /min [facility] Blood Gas Specimen Type BHUPINDER [facility] Oxygen Delivery Device Cannula [facility] Venous Blood Base Excess 9 mmol/L -1.0-3.5 [facility] BHUPINDER [facility] Cannula [facility] 2.0 /min [facility] 54.1 mmHg 41-51 [facility] 9 mmol/L -1.0-3.5 [facility] 82 % 50-70 [facility] 36 mmol/L 23-33 [facility] Estimated Creatinine Clearance Calc 115.37 ml/min [facility] Estimated GFR (MDRD) Amer 192 mL/min >60 [facility] Comment on above: GFR Calc Estimated GFR (MDRD) Non-Af Amer 159 mL/min >60 [facility] Comment on above: Non- GFR Calc Ethyl Alcohol Level 6.0 mg/dL [facility] Comment on above: The serum:whole bloo d ethanol ratio is approximately 1.14and varies slightly with hematocrit. Medical Alcohol reference interval and critical value innon-tolerant individuals; 50 - 100 Impairment 100 Intoxication 100 - 250 Severe Poisoning 250 - 400 Deep/possible fatal coma 25.4 pg 27.0-32.0 [facility] 15.9 % 11.6-14.6 [facility] 47.9 fl 35.1-43.9 [facility] 0.600 % 0.0-0.9 [facility] 0 % 0-5 [facility] 159 mL/min >60 [facility] 192 mL/min >60 [facility] 115.37 ml/min [facility] 26.8 RATIO 10-20 [facility] 4.6 g/dL 2.2-4.2 [facility] 42 U/L 13-75 [facility] 117 U/L 45-117 [facility] 58 U/L 13-56 [facility] 36.0 mmol/L 21.0-32.0 [facility] 6.0 mg/dL [facility] PO2 venousOrdered By: Dr. Cristi otto on 11-06-2022 Oxygen (BldV) [Partial pressure] 48 mm[Hg] 25-40 [facility] Platelets bldOrdered By: Dr. Acharya on 11-06-2022 Platelets (Bld) [#/Vol] 360 10*3/uL 150-450 [facility] Protein Test strip Ql (U)Ord ered By: Dr. Acharya on 11-06-2022 Protein Ql (U) 100 mg/dl Negative [facility] Serum or plasma albumin miguel angel urement (mass/volume)Ordered By: Dr. Acharya on 11-06-2022 Albumin [Mass/Vol] 3.1 g/dL 3.2-5.0 [facility] Serum or plasma albumin/glob ulin mass ratioOrdered By: Dr. Acharya on 11-06-2022 Albumin/Globulin [Mass ratio] 0.7 {ratio} 0.9-2.4 [facility] Serum or plasma calcium miguel angel urement (mass/volume)Ordered By: Dr. Acharya on 11-06-2022 Calcium [Mass/Vol] 8.7 mg/dL 8.5-10.1 [facility] Serum or plasma creatinine m easurement (mass/volume)Ordered By: Dr. Acharya on 11-06-2022 Creatinine [Mass/Vol] 0.45 mg/dL 0.55-1.02 [facility] Comment on above: The validity of the calculated GFR & GFRAA in patients over 70 years has not been determined. Clinical correlation is essential. Serum or plasma urea nitroge n measurement (mass/volume)Ordered By: Dr. Acharya on 11-06-2022 Urea nitrogen [Mass/Vol] 12 mg/dL 7-18 [facility] Squamous epithelial cells de tection in urine sediment by light microscopyOrdered By: Dr. Acharya on 11-06-2022 Epithelial cells.squamous LM Ql (Urine sed) 0-5 SEEN /hpf 5-10 [facility] Thin prep Papanicolaou smear with manual screeningOrdered By: Dr. Acharya on 11-06-2022 Thin prep Papanicolaou smear with manual screening 33 U/L 15-37 [facility] Thin prep Papanicolaou smear with manual screening 4 5-15 [facility] Urine blood detectionOrdered By: Dr. Acharya on 11-06-2022 RBC Ql (U) 150 /ul Negative [facility] RBC Ql (U) 0 SEEN /hpf 0-5 [facility] Urine clarityOrdered By: Dr. Acharya on 11-06-2022 Clarity (U) Cloudy Clear [facility] Urine color determinationOrd ered By: Dr. Acharya on 11-06-2022 Color (U) Yellow Yellow [facility] Urine glucose detectionOrder ed By: Dr. Acharya on 11-06-2022 Glucose Ql (U) Normal mg/dl Normal [facility] Urine leukocyte esterase det ection by dipstickOrdered By: Dr. Acharya on 11-06-2022 Leukocyte esterase Test strip Ql (U) 500 /ul Negative [facility] Urine pHOrdered By: Dr. Acharya on 11-06-2022 pH (U) 6.5 [pH] 5.0 - 8.0 [facility] Urine phencyclidine (PCP) de tectionOrdered By: Dr. Acharya on 11-06-2022 Phencyclidine Ql (U) Negative < 25 ng/mL [facility] Urine sediment bacteria coun t by microscopy (number/high power field)Ordered By: Dr. Acharya on 11-06-2022 Bacteria LM.HPF (Urine sed) [#/Area] 3 /[HPF] None Seen [facility] Urine specific gravity measu rementOrdered By: Dr. Acharya on 11-06-2022 Specific gravity (U) [Rel density] 1.020 1.002-1.030 [facility] Urobilinogen Auto test strip Ql (U)Ordered By: Dr. Acharya on 11-06-2022 Urobilinogen Ql (U) Normal mg/dl Normal [facility] Vital signsOrdered By: Dr. Edmundo cruz on 11-06-2022 Oxygen saturation in Blood 82 % 50-70 [facility] pH measurementOrdered By: Dr Kimberly Acharya on 11-06-2022 pH (Unsp spec) 7.41 [pH] 7.32-7.42 [facility] CNPNon 10-21-2022 CNPN Telephone (UROLWS) HENRIK REED ([id number]) 1975 F Date Time Provider Department 10/21/22 ROSA MARIA MARTINEZ During your visit today, we recorded the following information about you: Justine Morrow Pss 10/21/2022 12:53 PM Signed long-term is calling to let provider know that patient is declining to complete ultrasound at this time so they have stopped r/s. Will call us back to schedule when patient is ready to schedule Allergies As of Date: 10/21/2022 Noted Allergy Reaction ELIQUIS (APIXABAN) 05/15/2015 16 - Unknown MOMETASONE 04/05/2019 16 - Unknown MORPHINE 05/15/2015 16 - Unknown NITROFURANTOIN 04/05/2019 16 - Unknown SULFA (SULFONAMIDE ANTIBIOTICS) 04/05/2019 16 - Unknown Date Reviewed: 04/12/2019 Reviewed by: Karis Calderon Ct - Fully Assessed Reason for Visit: Patient Update [1234] Prescriptions as of 11/20/2022 - Sennosides 8.6 mg cap Take 17.2 mg by mouth twice daily. - POLYETHYLENE GLYCOL 3350 ORAL Take 17 g by mouth daily at bedtime. - docusate sodium (COLACE) 100 mg capsule Take 200 mg by mouth daily at bedtime. - ISOSORBIDE MONONITRATE ORAL Take 30 mg by mouth daily at bedtime. - potassium chloride ER (KLOR-CON M10) 10 mEq tablet Take 10 mEq by mouth once daily. - busPIRone (BUSPAR) 7.5 mg tablet Take 7.5 mg by mouth three times daily. - OXYBUTYNIN CHLORIDE ORAL Take 30 mg by mouth once daily. - phenazopyridine (PYRIDIUM) 200 mg tablet Take 200 mg by mouth three times daily as needed. - melatonin 5 mg tablet Take 5 mg by mouth daily at bedtime. - mirtazapine (REMERON) 30 mg tablet Take 30 mg by mouth daily at bedtime. - PARoxetine (PAXIL) 10 mg tablet Take 10 mg by mouth daily at bedtime. - simethicone, chewable (GAS RELIEF, SIMETHICONE,) 80 mg chewable tablet Take 80 mg by mouth once daily as needed. - magnesium hydroxide (MILK OF MAGNESIA) 400 mg/5 mL suspension Take 30 mL by mouth once daily as needed. - buprenorphine (BUTRANS) 15 mcg/hour patch Apply 1 Patch as directed one time a week. - Cetirizine 10 mg cap Take 10 mg by mouth once daily. - sodium phosphate,mono-dibasic (FLEET ENEMA RECTAL) by RECTAL route as needed. - omeprazole (PRILOSEC) 20 mg capsule Take 20 mg by mouth once daily. - mirabegron (MYRBETRIQ) 25 mg Tb24 Take 25 mg by mouth once daily. - lactobacillus rhamnosus (CULTURELLE) 10 billion cell capsule Take 1 capsule by mouth once daily. - oxyCODONE myristate (XTAMPZA ER) 36 mg CSpT Take 36 mg by mouth twice daily for 30 days. - peg 3350-Electrolytes (GOLYTELY) 236-22.74-6.74 -5.86 gram suspension Refer to printed patient instructions that will be mailed to you. - nystatin (MYCOSTATIN) powder Apply to affected area four times daily. - clotrimazole (LOTRIMIN, CLOTRIM) 1 % cream Apply to affected area twice daily. - Cholecalciferol, Vitamin D3, 1,000 unit cap Take 2,000 Units by mouth once daily. - Ascorbic Acid 1,000 mg tablet Take 1,000 mg by mouth once daily. - amitriptyline (ELAVIL) 25 mg tablet Take 25 mg by mouth daily at bedtime. - Ascorbic Acid 500 mg wafr Take by mouth twice daily. - baclofen (LIORESAL) 20 mg tablet Take 40 mg by mouth every 6 hours as needed. - DULoxetine (CYMBALTA) 60 mg capsule Take 60 mg by mouth twice daily. 90 mg by mouth at bedtime - IRON POLYSACCHARIDE COMPLEX (FERREX 150 ORAL) Take by mouth once daily. - furosemide (LASIX) 40 mg tablet Take 40 mg by mouth once daily. Also takes 20 MG by mouth at lunch - gabapentin (NEURONTIN) 800 mg tablet Take 800 mg by mouth. 2 tablets every 8 hours - levothyroxine (SYNTHROID) 75 mcg tablet Take 75 mcg by mouth once daily. - acetaminophen (TYLENOL) 325 mg tablet Take 650 mg by mouth every 6 hours as needed. Every 4 hours as needed - ALPRAZolam (XANAX) 0.5 mg tablet Take 0.5 mg by mouth three times daily as needed. - BISACODYL RECTAL 10 mg by RECTAL route at bedtime as needed. Problem List As Of Date 10/21/2022 Noted Resolved Chronic pain disorder [G89.4] 05/15/2015 Paraplegia (HCC) [G82.20] 05/15/2015 Encounter Status:Closed by JUSTINE SIMMONS on 11/20/22 [facility] 10-06-2022 CNOV Office Visit (UROLWS ) HENRIK REED ([id number]) 1975 F Date Time Provider Department 10/06/22 11:20 AM ROSA MARIA MARTINEZ During your visit today, we recorded the following information about you: Temperature Pulse Respiration Blood pressure 97 degrees 86/minute 16/minute 110/70 Weight Height 104.3 kg 1.6 m Rosa Maria Martinez PA-C 10/06/2022 7:08 PM Signed [facility] NEW PATIENT CLINIC NOTE SERVICE DATE: 10/06/2022 SERVICE TIME: 7:02 PM NAME: Henrik Reed CHIEF COMPLAINT: Bladder Stone History HISTORY OF PRESENT ILLNESS: Henrik Reed is a 47 year old female [...] needed. (Patient not taking: Reported on 10/06/2022) PAS (more content not included)... Normal [facility] 09-30-2022 DARRIAN Telephone (AIDAN) HENRIK REED ([id number]) 1975 F Date Time Provider Department 09/30/22 ROSA MARIA MARTINEZ During your visit today, we recorded the following information about you: Karis Valdez LPN 09/30/2022 4:46 PM Signed Wrong number. Karis José Miguel HOSPITAL SECRETARY 09/30/2022 4:47 PM Signed Busy signal. Karis José Miguel HOSPITAL SECRETARY Karis José Miguel HOSPITAL SECRETARY 10/02/2022 3:36 PM Signed Busy signal. Karis José Miguel HOSPITAL SECRETARY Karis José Miguel CABRERA 10/05/2022 8:33 AM Signed Called patient's mothers number- no answer. Left message. Karis Valdez RICK Karis Valdez RICK 10/06/2022 2:39 PM Signed Patient seen today for office visit with Rosa Maria Martinez PA-C and updated phone number in MeeDoc. Patient does reside at [facility]. Karis Valdez RICK Allergies As of Date: 09/30/2022 Noted Allergy Reaction ELIQUIS (APIXABAN) 05/15/2015 16 - Unknown MOMETASONE 04/05/2019 16 - Unknown MORPHINE 05/15/2015 16 - Unknown NITROFURANTOIN 04/05/2019 16 - Unknown SULFA (SULFONAMIDE ANTIBIOTICS) 04/05/2019 16 - Unknown Date Reviewed: 04/12/2019 Reviewed by: Karis Hernández - Fully Assessed Reason for Visit: Appointment [[id number]] Prescriptions as of 10/06/2022 - Sennosides 8.6 mg cap Take 17.2 mg by mouth twice daily. - POLYETHYLENE GLYCOL 3350 ORAL Take 17 g by mouth daily at bedtime. - docusate sodium (COLACE) 100 mg capsule Take 200 mg by mouth daily at bedtime. - ISOSORBIDE MONONITRATE ORAL Take 30 mg by mouth daily at bedtime. - potassium chloride ER (KLOR-CON M10) 10 mEq tablet Take 10 mEq by mouth once daily. - busPIRone (BUSPAR) 7.5 mg tablet Take 7.5 mg by mouth three times daily. - OXYBUTYNIN CHLORIDE ORAL Take 30 mg by mouth once daily. - phenazopyridine (PYRIDIUM) 200 mg tablet Take 200 mg by mouth three times daily as needed. - melatonin 5 mg tablet Take 5 mg by mouth daily at bedtime. - mirtazapine (REMERON) 30 mg tablet Take 30 mg by mouth daily at bedtime. - PARoxetine (PAXIL) 10 mg tablet Take 10 mg by mouth daily at bedtime. - simethicone, chewable (GAS RELIEF, SIMETHICONE,) 80 mg chewable tablet Take 80 mg by mouth once daily as needed. - magnesium hydroxide (MILK OF MAGNESIA) 400 mg/5 mL suspension Take 30 mL by mouth once daily as needed. - buprenorphine (BUTRANS) 15 mcg/hour patch Apply 1 Patch as directed one time a week. - Cetirizine 10 mg cap Take 10 mg by mouth once daily. - sodium phosphate,mono-dibasic (FLEET ENEMA RECTAL) by RECTAL route as needed. - omeprazole (PRILOSEC) 20 mg capsule Take 20 mg by mouth once daily. - mirabegron (MYRBETRIQ) 25 mg Tb24 Take 25 mg by mouth once daily. - lactobacillus rhamnosus (CULTURELLE) 10 billion cell capsule Take 1 capsule by mouth once daily. - oxyCODONE myristate (XTAMPZA ER) 36 mg CSpT Take 36 mg by mouth twice daily for 30 days. - peg 3350-Electrolytes (GOLYTELY) 236-22.74-6.74 -5.86 gram suspension Refer to printed patient instructions that will be mailed to you. - nystatin (MYCOSTATIN) powder Apply to affected area four times daily. - clotrimazole (LOTRIMIN, CLOTRIM) 1 % cream Apply to affected area twice daily. - Cholecalciferol, Vitamin D3, 1,000 unit cap Take 2,000 Units by mouth once daily. - Ascorbic Acid 1,000 mg tablet Take 1,000 mg by mouth once daily. - amitriptyline (ELAVIL) 25 mg tablet Take 25 mg by mouth daily at bedtime. - Ascorbic Acid 500 mg wafr Take by mouth twice daily. - baclofen (LIORESAL) 20 mg tablet Take 40 mg by mouth every 6 hours as needed. - DULoxetine (CYMBALTA) 60 mg capsule Take 60 mg by mouth twice daily. 90 mg by mouth at bedtime - IRON POLYSACCHARIDE COMPLEX (FERREX 150 ORAL) Take by mouth once daily. - furosemide (LASIX) 40 mg tablet Take 40 mg by mouth once daily. Also takes 20 MG by mouth at lunch - gabapentin (NEURONTIN) 800 mg tablet Take 800 mg by mouth. 2 tablets every 8 hours - levothyroxine (SYNTHROID) 75 mcg tablet Take 75 mcg by mouth once daily. - acetaminophen (TYLENOL) 325 mg tablet Take 650 mg by mouth every 6 hours as needed. Every 4 hours as needed - ALPRAZolam (XANAX) 0.5 mg tablet Take 0.5 mg by mouth three times daily as needed. - BISACODYL RECTAL 10 mg by RECTAL route at bedtime as needed. Problem List As Of Date 09/30/2022 Noted Resolved Chronic pain disorder [G89.4] 05/15/2015 Paraplegia (HCC) [G82.20] 05/15/2015 Encounter Status:Closed by KARIS VALDEZ LPN on 10/02/22 Normal [facility] Basophil percentageOrdered B y: Lavon Vicente on 09-18-2022 Basophils (Bld) [#/Vol] 8.1 10*3/uL 4.4-11.0 [facility] WBC (Bld) [#/Vol] 8.1 10*3/uL 4.4-11.0 [facility] Blood erythrocytes count (nu mber/volume)Ordered By: Lavon Vicente on 09-18-2022 RBC (Bld) [#/Vol] 4.34 10*6/uL 4.2-5.4 [facility] Blood hemoglobin measurement (mass/volume)Ordered By: Lavon Vicente on 09-18-2022 Hemoglobin (Bld) [Mass/Vol] 11.3 g/dL 12.0-15.0 [facility] Blood platelet mean volumeOr dered By: Lavon Vicente on 09-18-2022 Platelet mean volume (Bld) [Entitic vol] 9.7 fL 6.2-12.0 [facility] Determination of erythrocyte mean corpuscular volume (MCV)Ordered By: Lavon Vicente on 09-18-2022 MCV (RBC) [Entitic vol] 81.6 fL 81-99 [facility] Comment on above: Delta: 89.1 on 09/16 Hematocrit Auto (Bld) [Volum e fraction]Ordered By: Lavon Vicente on 09-18-2022 Hematocrit (Bld) [Volume fraction] 35.4 % 37-47 [facility] Laboratory - Hematology and Cell countsOrdered By: Lavon Vicente on 09-18-2022 Erythrocyte distribution width (RBC) [Entitic vol] 45.0 fL 35.1-43.9 [facility] Erythrocyte distribution width (RBC) [Ratio] 15.1 % 11.6-14.6 [facility] MCH (RBC) [Entitic mass] 26.0 pg 27.0-32.0 [facility] - Microbiology an d Antimicrobial susceptibilityOrdered By: Dr. Pastor on 09-18-2022 Bacteria identified Cx Nom (Bld) No growth in 5 days. [facility] MCHC Auto (RBC) [Mass/Vol]Or dered By: Lavon Vicente on 09-18-2022 MCHC (RBC) [Mass/Vol] 31.9 g/dL 32-36 [facility] Comment on above: Delta: 29.2 on 09/16 No Panel InformationOrdered By: Lavon Vicente on 09-18-2022 26.0 pg 27.0-32.0 [facility] 15.1 % 11.6-14.6 [facility] 45.0 fl 35.1-43.9 [facility] No Panel InformationOrdered By: Dr. Pastor on 09-18-2022 No growth in 5 days. [facility] Platelets bldOrdered By: Estefany Vicente on 09-18-2022 Platelets (Bld) [#/Vol] 255 10*3/uL 150-450 [facility] Bacteria identified Cx Nom ( U)Ordered By: Dr. Pastor on 09-16-2022 Culture, urine Enterococcus faecalis [facility] Culture, urine Morganella morganii sp morgani [facility] Basophil percentageOrdered B y: Lavon Vicente on 09-16-2022 Basophil percentage 131 mg/dL 74-106 [facility] Basophil percentage 137 mmol/L 136-145 [facility] Basophil percentage 3.5 mmol/L 3.5-5.1 [facility] Basophil percentage 99 mmol/L 98-107 [facility] Basophils (Bld) [#/Vol] 7.9 10*3/uL 4.4-11.0 [facility] Chloride [Moles/Vol] 99 mmol/L 98-107 [facility] Glucose [Mass/Vol] 131 mg/dL 74-106 [facility] Comment on above: Fasting Glucose resu lt greater than or equal to 126 mg/dL suggests DIABETES MELLITUS per A.D.A. criteria. Potassium [Moles/Vol] 3.5 mmol/L 3.5-5.1 [facility] Sodium [Moles/Vol] 137 mmol/L 136-145 [facility] WBC (Bld) [#/Vol] 7.9 10*3/uL 4.4-11.0 [facility] Blood erythrocytes count (nu mber/volume)Ordered By: Lavon Vicente on 09-16-2022 RBC (Bld) [#/Vol] 3.77 10*6/uL 4.2-5.4 [facility] Blood hemoglobin measurement (mass/volume)Ordered By: Lavon Vicente on 09-16-2022 Hemoglobin (Bld) [Mass/Vol] 9.8 g/dL 12.0-15.0 [facility] Blood platelet mean volumeOr dered By: Lavon Vicente on 09-16-2022 Platelet mean volume (Bld) [Entitic vol] 9.1 fL 6.2-12.0 [facility] Culture, urineOrdered By: Dr Kimberly Pastor on 09-16-2022 Bacteria identified Cx Nom (U) Enterococcus faecalis [facility] Bacteria identified Cx Nom (U) Morganella morganii sp morgani [facility] Determination of erythrocyte mean corpuscular volume (MCV)Ordered By: Lavon Vicente on 09-16-2022 MCV (RBC) [Entitic vol] 89.1 fL 81-99 [facility] Hematocrit Auto (Bld) [Volum e fraction]Ordered By: Lavon Vicente on 09-16-2022 Hematocrit (Bld) [Volume fraction] 33.6 % 37-47 [facility] Laboratory - Chemistry and C hemistry - challengeOrdered By: Lavon Vicente on 09-16-2022 CO2 [Moles/Vol] 32.0 mmol/L 21.0-32.0 [facility] Urea nitrogen/Creatinine [Mass ratio] 21.1 mg/mg 10-20 [facility] - Hematology and Cell countsOrdered By: Lavon Vicente on 09-16-2022 Erythrocyte distribution width (RBC) [Entitic vol] 52.0 fL 35.1-43.9 [facility] Erythrocyte distribution width (RBC) [Ratio] 15.8 % 11.6-14.6 [facility] MCH (RBC) [Entitic mass] 26.0 pg 27.0-32.0 [facility] MCHC Auto (RBC) [Mass/Vol]Or dered By: Lavon Vicente on 09-16-2022 MCHC (RBC) [Mass/Vol] 29.2 g/dL 32-36 [facility] No Panel InformationOrdered By: Lavon Vicente on 09-16-2022 Estimated GFR (MDRD) Amer 324 mL/min >60 [facility] Comment on above: GFR Calc Estimated GFR (MDRD) Non-Af Amer 268 mL/min >60 [facility] Comment on above: Non- GFR Calc 26.0 pg 27.0-32.0 [facility] 15.8 % 11.6-14.6 [facility] 52.0 fl 35.1-43.9 [facility] 268 mL/min >60 [facility] 324 mL/min >60 [facility] 21.1 RATIO 10-20 [facility] 32.0 mmol/L 21.0-32.0 [facility] Platelets bldOrdered By: Estefany Vicente on 09-16-2022 Platelets (Bld) [#/Vol] 304 10*3/uL 150-450 [facility] Serum or plasma calcium miguel angel urement (mass/volume)Ordered By: Lavon Vicente on 09-16-2022 Calcium [Mass/Vol] 8.7 mg/dL 8.5-10.1 [facility] Serum or plasma creatinine m easurement (mass/volume)Ordered By: Lavon Vicente on 09-16-2022 Creatinine [Mass/Vol] 0.28 mg/dL 0.55-1.02 [facility] Comment on above: The validity of the calculated GFR & GFRAA in patients over 70 years has not been determined. Clinical correlation is essential. Serum or plasma urea nitroge n measurement (mass/volume)Ordered By: Lavon Vicente on 09-16-2022 Urea nitrogen [Mass/Vol] 6 mg/dL 7-18 [facility] Thin prep Papanicolaou smear with manual screeningOrdered By: Lavon Vicente on 09-16-2022 Thin prep Papanicolaou smear with manual screening 6 5-15 [facility] Absolute lymphocyte countOrd ered By: Dr. Pastor on 09-14-2022 Lymphocytes Auto (Unsp spec) [#/Vol] 2.16 10*3/uL 0.83-4.51 [facility] Basophil percentageOrdered B y: Dr. Pastor on 09-14-2022 Basophil percentage 117 mg/dL 74-106 [facility] Basophil percentage 6.7 g/dL 6.4-8.2 [facility] Basophil percentage 0.20 mg/dL 0.20-1.00 [facility] Basophil percentage 139 mmol/L 136-145 [facility] Basophil percentage 3.8 mmol/L 3.5-5.1 [facility] Basophil percentage 106 mmol/L 98-107 [facility] Basophils (Bld) [#/Vol] 9.0 10*3/uL 4.4-11.0 [facility] Basophils (Bld) [#/Vol] 5.6 10*3/uL 2.0-7.7 [facility] Basophils/100 WBC (Bld) 0.6 % 0-1 [facility] Basophils/100 WBC (Bld) 62.5 % 47-70 [facility] Basophils/100 WBC (Bld) 4.2 % 0-5 [facility] Bilirubin [Mass/Vol] 0.20 mg/dL 0.20-1.00 [facility] Comment on above: For patients on eltr ombopag therapy, use of Dimension Amanda TBIL is not recommended. Chloride [Moles/Vol] 106 mmol/L 98-107 [facility] Eosinophils/100 WBC (Bld) 4.2 % 0-5 [facility] Glucose [Mass/Vol] 117 mg/dL 74-106 [facility] Comment on above: Fasting Glucose resu lt from 100 to 125 mg/dL suggests IMPAIRED HOMEOSTASIS per A.D.A. criteria. Neutrophils (Bld) [#/Vol] 5.6 10*3/uL 2.0-7.7 [facility] Neutrophils/100 WBC (Bld) 62.5 % 47-70 [facility] Potassium [Moles/Vol] 3.8 mmol/L 3.5-5.1 [facility] Protein [Mass/Vol] 6.7 g/dL 6.4-8.2 [facility] Sodium [Moles/Vol] 139 mmol/L 136-145 [facility] WBC (Bld) [#/Vol] 9.0 10*3/uL 4.4-11.0 [facility] Blood erythrocytes count (nu mber/volume)Ordered By: Dr. Pastor on 09-14-2022 RBC (Bld) [#/Vol] 3.86 10*6/uL 4.2-5.4 [facility] Blood hemoglobin measurement (mass/volume)Ordered By: Dr. Pastor on 09-14-2022 Hemoglobin (Bld) [Mass/Vol] 10.1 g/dL 12.0-15.0 [facility] Blood lymphocytes/100 leukoc ytesOrdered By: Dr. Pastor on 09-14-2022 Lymphocytes/100 WBC (Bld) 24.0 % 19-41 [facility] Blood monocytes/100 leukocyt esOrdered By: Dr. Pastor on 09-14-2022 Monocytes/100 WBC (Bld) 8.3 % 0-10 [facility] Blood platelet mean volumeOr dered By: Dr. Pastor on 09-14-2022 Platelet mean volume (Bld) [Entitic vol] 9.2 fL 6.2-12.0 [facility] Determination of erythrocyte mean corpuscular volume (MCV)Ordered By: Dr. Pastor on 09-14-2022 MCV (RBC) [Entitic vol] 89.9 fL 81-99 [facility] Hematocrit Auto (Bld) [Volum e fraction]Ordered By: Dr. Pastor on 09-14-2022 Hematocrit (Bld) [Volume fraction] 34.7 % 37-47 [facility] Laboratory - Chemistry and C hemistry - challengeOrdered By: Dr. Pastor on 09-14-2022 ALP [Catalytic activity/Vol] 73 U/L 45-117 [facility] ALT [Catalytic activity/Vol] 36 U/L 13-56 [facility] CO2 [Moles/Vol] 31.0 mmol/L 21.0-32.0 [facility] Globulin (S) [Mass/Vol] 4.2 g/dL 2.2-4.2 [facility] Urea nitrogen/Creatinine [Mass ratio] 34.8 mg/mg 10-20 [facility] Laboratory - Hematology and Cell countsOrdered By: Dr. Pastor on 09-14-2022 Erythrocyte distribution width (RBC) [Entitic vol] 53.1 fL 35.1-43.9 [facility] Erythrocyte distribution width (RBC) [Ratio] 16.1 % 11.6-14.6 [facility] Immature granulocytes/100 WBC (Bld) 0.400 % 0.0-0.9 [facility] Comment on above: IG% - Immature Granu locytes (promyelocytes, myelocytes and metamyelocytes) > 1% indicates that a LEFT SHIFT is Present. MCH (RBC) [Entitic mass] 26.2 pg 27.0-32.0 [facility] Nucleated RBC/100 WBC (Bld) [Ratio] 0 % 0-5 [facility] MCHC Auto (RBC) [Mass/Vol]Or dered By: Dr. Pastor on 09-14-2022 MCHC (RBC) [Mass/Vol] 29.1 g/dL 32-36 [facility] No Panel InformationOrdered By: Dr. Pastor on 09-14-2022 Estimated Creatinine Clearance Calc 225.72 ml/min [facility] Estimated GFR (MDRD) Amer 414 mL/min >60 [facility] Comment on above: GFR Calc Estimated GFR (MDRD) Non-Af Amer 342 mL/min >60 [facility] Comment on above: Non- GFR Calc 26.2 pg 27.0-32.0 [facility] 16.1 % 11.6-14.6 [facility] 53.1 fl 35.1-43.9 [facility] 0.400 % 0.0-0.9 [facility] 0 % 0-5 [facility] 342 mL/min >60 [facility] 414 mL/min >60 [facility] 225.72 ml/min [facility] 34.8 RATIO 10-20 [facility] 4.2 g/dL 2.2-4.2 [facility] 73 U/L 45-117 [facility] 36 U/L 13-56 [facility] 31.0 mmol/L 21.0-32.0 [facility] Platelets bldOrdered By: Dr. Pastor on 09-14-2022 Platelets (Bld) [#/Vol] 277 10*3/uL 150-450 [facility] Serum or plasma albumin miguel angel urement (mass/volume)Ordered By: Dr. Pastor on 09-14-2022 Albumin [Mass/Vol] 2.5 g/dL 3.2-5.0 [facility] Serum or plasma albumin/glob ulin mass ratioOrdered By: Dr. Pastor on 09-14-2022 Albumin/Globulin [Mass ratio] 0.6 {ratio} 0.9-2.4 [facility] Serum or plasma calcium miguel angel urement (mass/volume)Ordered By: Dr. Pastor on 09-14-2022 Calcium [Mass/Vol] 8.3 mg/dL 8.5-10.1 [facility] Serum or plasma creatinine m easurement (mass/volume)Ordered By: Dr. Pastor on 09-14-2022 Creatinine [Mass/Vol] 0.23 mg/dL 0.55-1.02 [facility] Comment on above: The validity of the calculated GFR & GFRAA in patients over 70 years has not been determined. Clinical correlation is essential. Serum or plasma urea nitroge n measurement (mass/volume)Ordered By: Dr. Pastor on 09-14-2022 Urea nitrogen [Mass/Vol] 8 mg/dL 7-18 [facility] Thin prep Papanicolaou smear with manual screeningOrdered By: Dr. Pastor on 09-14-2022 Thin prep Papanicolaou smear with manual screening 23 U/L 15-37 [facility] Thin prep Papanicolaou smear with manual screening 2 5-15 [facility] No Panel InformationOrdered By: Dr. Pastor on 09-13-2022 Methicillin-Resist S.aureus DNA PCR Positive Negative [facility] Comment on above: RESULTS CALLED TO JOSE CARLOS MORGAN 09/13/22 1150 Ma[address] Nolen.REPORT READ BACK BY JOSE MARIA.Copy of report sent to Infection Control Printer MS#[id number] NIMA. Positive Negative [facility] Thyroid Stimulating Hormone (TSH) 1.88 uIU/mL 0.358-3.74 [facility] 1.88 uIU/mL 0.358-3.74 [facility] Absolute lymphocyte countOrd ered By: Dr. Aguila on 09-12-2022 Lymphocytes Auto (Unsp spec) [#/Vol] 1.43 10*3/uL 0.83-4.51 [facility] Basophil percentageOrdered B y: Dr. Pastor on 09-12-2022 Basophil percentage 0.9 mmol/L 0.4-2.0 [facility] Lactate [Moles/Vol] 0.9 mmol/L 0.4-2.0 [facility] Basophil percentageOrdered B y: Dr. Aguila on 09-12-2022 Basophil percentage 10-25 SEEN /hpf 0-5 [facility] Basophils/100 WBC (Bld) 0.3 % 0-1 [facility] Chloride [Moles/Vol] 100 mmol/L 98-107 [facility] Eosinophils/100 WBC (Bld) 1.7 % 0-5 [facility] Glucose [Mass/Vol] 141 mg/dL 74-106 [facility] Comment on above: Fasting Glucose resu lt greater than or equal to 126 mg/dL suggests DIABETES MELLITUS per A.D.A. criteria. Neutrophils (Bld) [#/Vol] 14.5 10*3/uL 2.0-7.7 [facility] Neutrophils/100 WBC (Bld) 84.0 % 47-70 [facility] Potassium [Moles/Vol] 3.5 mmol/L 3.5-5.1 [facility] Sodium [Moles/Vol] 136 mmol/L 136-145 [facility] WBC (Bld) [#/Vol] 17.3 10*3/uL 4.4-11.0 [facility] Bilirubin Test strip Ql (U)O rdered By: Dr. Aguila on 09-12-2022 Bilirubin Ql (U) Negative Negative [facility] Blood erythrocytes count (nu mber/volume)Ordered By: Dr. Aguila on 09-12-2022 RBC (Bld) [#/Vol] 4.67 10*6/uL 4.2-5.4 [facility] Blood hemoglobin measurement (mass/volume)Ordered By: Dr. Aguila on 09-12-2022 Hemoglobin (Bld) [Mass/Vol] 12.3 g/dL 12.0-15.0 [facility] Blood lymphocytes/100 leukoc ytesOrdered By: Dr. Aguila on 09-12-2022 Lymphocytes/100 WBC (Bld) 8.3 % 19-41 [facility] Blood monocytes/100 leukocyt esOrdered By: Dr. Aguila on 09-12-2022 Monocytes/100 WBC (Bld) 5.4 % 0-10 [facility] Blood platelet mean volumeOr dered By: Dr. Aguila on 09-12-2022 Platelet mean volume (Bld) [Entitic vol] 9.4 fL 6.2-12.0 [facility] Determination of erythrocyte mean corpuscular volume (MCV)Ordered By: Dr. Aguila on 09-12-2022 MCV (RBC) [Entitic vol] 86.1 fL 81-99 [facility] Hematocrit Auto (Bld) [Volum e fraction]Ordered By: Dr. Aguila on 09-12-2022 Hematocrit (Bld) [Volume fraction] 40.2 % 37-47 [facility] Influenza virus A and B and SARS-CoV-2 (COVID-19) Ag panel - Upper respiratory specimOrdered By: Dr. Aguila on 09-12-2022 SARS-CoV-2 (COVID-19) RNA NBA+probe Ql (Resp) [facility] Ketones Test strip Ql (U)Ord ered By: Dr. Aguila on 09-12-2022 Ketones Ql (U) Negative Negative [facility] Laboratory - Chemistry and C hemistry - challengeOrdered By: Dr. Aguila on 09-12-2022 CO2 [Moles/Vol] 29.0 mmol/L 21.0-32.0 [facility] Natriuretic peptide B (Bld) [Mass/Vol] 45.3 pg/mL 0-100 [facility] Urea nitrogen/Creatinine [Mass ratio] 17.2 mg/mg 10-20 [facility] Laboratory - Hematology and Cell countsOrdered By: Dr. Aguila on 09-12-2022 Erythrocyte distribution width (RBC) [Entitic vol] 50.2 fL 35.1-43.9 [facility] Erythrocyte distribution width (RBC) [Ratio] 15.9 % 11.6-14.6 [facility] Immature granulocytes/100 WBC (Bld) 0.300 % 0.0-0.9 [facility] Comment on above: IG% - Immature Granu locytes (promyelocytes, myelocytes and metamyelocytes) > 1% indicates that a LEFT SHIFT is Present. MCH (RBC) [Entitic mass] 26.3 pg 27.0-32.0 [facility] Nucleated RBC/100 WBC (Bld) [Ratio] 0 % 0-5 [facility] MCHC Auto (RBC) [Mass/Vol]Or dered By: Dr. Aguila on 09-12-2022 MCHC (RBC) [Mass/Vol] 30.6 g/dL 32-36 [facility] Mucus LM Ql (Urine sed)Order ed By: Dr. Aguila on 09-12-2022 Mucus Ql (Urine sed) 0 SEEN /hpf [facility] Nitrite Test strip Ql (U)Ord ered By: Dr. Aguila on 09-12-2022 Nitrite Ql (U) Negative Negative [facility] No Panel InformationOrdered By: Dr. Aguila on 09-12-2022 Troponin I High Sensitivity 7 pg/mL 3.0-54.0 [facility] Comment on above: Please Note: New Tameka t Units and Gender Specific Reference Ranges. For more information see Policy Stat Procedure Amanda High Sensitivity Troponin (TNIH) and attachments. 7 pg/mL 3.0-54.0 [facility] D-Dimer Quantitative (PE/DVT) 1.11 FEU/ug/m 0.27-0.49 [facility] Comment on above: D-Dimer ELEVATED (>0 .49): Additional studies and clinicalassessments are indicated to conclude diagnosis of:Deep Vein Thrombosis (DVT) or Pulmonary Embolism (PE)CRITICAL VALUE VERIFIED. CALLED TO BALWINDER BETANCOURT09/12/22 1050 Whit Brito.RESULTS READ BACK BY SAME . Estimated Creatinine Clearance Calc 148.33 ml/min [facility] Estimated GFR (MDRD) Amer 256 mL/min >60 [facility] Comment on above: GFR Calc Estimated GFR (MDRD) Non-Af Amer 211 mL/min >60 [facility] Comment on above: Non- GFR Calc 1.11 FEU/ug/m 0.27-0.49 [facility] 45.3 pg/mL 0-100 [facility] Platelets bldOrdered By: Dr. Aguila on 09-12-2022 Platelets (Bld) [#/Vol] 321 10*3/uL 150-450 [facility] Protein Test strip Ql (U)Ord ered By: Dr. Aguila on 09-12-2022 Protein Ql (U) 100 mg/dl Negative [facility] Respiratory pathogens DNA an d RNA 12b panel NBA+probe (Unsp spec)Ordered By: Dr. Pastor on 09-12-2022 Respiratory Panel (PCR) Rhinovirus [facility] Rhinovirus [facility] Serum or plasma calcium miguel angel urement (mass/volume)Ordered By: Dr. Aguila on 09-12-2022 Calcium [Mass/Vol] 9.0 mg/dL 8.5-10.1 [facility] Serum or plasma creatinine m easurement (mass/volume)Ordered By: Dr. Agiula on 09-12-2022 Creatinine [Mass/Vol] 0.35 mg/dL 0.55-1.02 [facility] Comment on above: The validity of the calculated GFR & GFRAA in patients over 70 years has not been determined. Clinical correlation is essential. Serum or plasma urea nitroge n measurement (mass/volume)Ordered By: Dr. Aguila on 09-12-2022 Urea nitrogen [Mass/Vol] 6 mg/dL 7-18 [facility] Serum procalcitonin measurem entOrdered By: Dr. Pastor on 09-12-2022 Procalcitonin [Mass/Vol] 0.15 ng/mL 0.00-0.09 [facility] Comment on above: A procalcitonin (PCT ) level above 2.0 ng/mL on the first day of ICU admission is associated with a high risk for progression to severe sepsis and/or septic shock. A PCT level below 0.5 ng/mL on the first day of ICU admission is associated with a low risk for progression to severe and/or septic shock. Note: Concentrations <0.5 ng/mL do not exclude an infection on account of localized infections (without systemic signs) which can be associated with such low concentrations, or a systemic infection in its initial stages (<6 hours). Furthermore, increased procalcitonin can occur without infection. PCT concentrations between 0.5 and 2.0 ng/mL should be interpreted taking into account the patient's history. It is recommended to retest PCT within 6-24 hours if any concentrations <2 ng/mL are obtained. Squamous epithelial cells de tection in urine sediment by light microscopyOrdered By: Dr. Aguila on 09-12-2022 Epithelial cells.squamous LM Ql (Urine sed) 0 SEEN /hpf 5-10 [facility] Thin prep Papanicolaou smear with manual screeningOrdered By: Dr. Aguila on 09-12-2022 Thin prep Papanicolaou smear with manual screening 7 5-15 [facility] Urine blood detectionOrdered By: Dr. Aguila on 09-12-2022 RBC Ql (U) 250 /ul Negative [facility] RBC Ql (U) > 100 SEEN /hpf 0-5 [facility] Urine clarityOrdered By: Dr. Aguila on 09-12-2022 Clarity (U) Cloudy Clear [facility] Urine color determinationOrd ered By: Dr. Aguila on 09-12-2022 Color (U) Red Yellow [facility] Urine glucose detectionOrder ed By: Dr. Aguila on 09-12-2022 Glucose Ql (U) Normal mg/dl Normal [facility] Urine leukocyte esterase det ection by dipstickOrdered By: Dr. Aguila on 09-12-2022 Leukocyte esterase Test strip Ql (U) 500 /ul Negative [facility] Urine pHOrdered By: Dr. Taiwo rosado on 09-12-2022 pH (U) 8.0 [pH] 5.0 - 8.0 [facility] Urine sediment bacteria coun t by microscopy (number/high power field)Ordered By: Dr. Aguila on 09-12-2022 Bacteria LM.HPF (Urine sed) [#/Area] 2 /[HPF] None Seen [facility] Urine specific gravity measu rementOrdered By: Dr. Aguila on 09-12-2022 Specific gravity (U) [Rel density] 1.015 1.002-1.030 [facility] Urobilinogen Auto test strip Ql (U)Ordered By: Dr. Aguila on 09-12-2022 Urobilinogen Ql (U) Normal mg/dl Normal [facility] Bacteria identified Cx Nom ( U)Ordered By: Dr. Beasley on 07-26-2022 Culture, urine Morganella morganii sp [facility] Culture, urineOrdered By: Dr Kimberly Beasley on 07-26-2022 Bacteria identified Cx Nom (U) Morganella morganii sp [facility] Absolute lymphocyte countOrd ered By: Dr. Beasley on 07-24-2022 Lymphocytes Auto (Unsp spec) [#/Vol] 3.18 10*3/uL 0.83-4.51 [facility] Amorphous sediment detection in urine sediment by light microscopyOrdered By: Dr. Beasley on 07-24-2022 Amorphous sediment LM Ql (Urine sed) 2+ [facility] Basophil percentageOrdered B y: Dr. Beasley on 07-24-2022 Basophil percentage < 10.0 umol/L 11-32 [facility] Basophil percentage 1.4 mmol/L 0.4-2.0 [facility] Basophils (Bld) [#/Vol] 9.7 10*3/uL 4.4-11.0 [facility] Basophils (Bld) [#/Vol] 5.6 10*3/uL 2.0-7.7 [facility] Basophils/100 WBC (Bld) 0.4 % 0-1 [facility] Basophils/100 WBC (Bld) 58.0 % 47-70 [facility] Basophils/100 WBC (Bld) 3.1 % 0-5 [facility] Eosinophils/100 WBC (Bld) 3.1 % 0-5 [facility] Lactate [Moles/Vol] 1.4 mmol/L 0.4-2.0 [facility] Neutrophils (Bld) [#/Vol] 5.6 10*3/uL 2.0-7.7 [facility] Neutrophils/100 WBC (Bld) 58.0 % 47-70 [facility] WBC (Bld) [#/Vol] 9.7 10*3/uL 4.4-11.0 [facility] Basophil percentage 5-10 SEEN /hpf 0-5 [facility] Basophil percentage 128 mg/dL 74-106 [facility] Basophil percentage 9.0 g/dL 6.4-8.2 [facility] Basophil percentage 0.50 mg/dL 0.20-1.00 [facility] Basophil percentage 138 mmol/L 136-145 [facility] Basophil percentage 4.7 mmol/L 3.5-5.1 [facility] Basophil percentage 105 mmol/L 98-107 [facility] Bilirubin [Mass/Vol] 0.50 mg/dL 0.20-1.00 [facility] Comment on above: For patients on eltr ombopag therapy, use of Dimension Amanda TBIL is not recommended. Chloride [Moles/Vol] 105 mmol/L 98-107 [facility] Glucose [Mass/Vol] 128 mg/dL 74-106 [facility] Comment on above: Fasting Glucose resu lt greater than or equal to 126 mg/dL suggests DIABETES MELLITUS per A.D.A. criteria. Potassium [Moles/Vol] 4.7 mmol/L 3.5-5.1 [facility] Comment on above: Moderate Hemolysis, Result may be falsely increased. Protein [Mass/Vol] 9.0 g/dL 6.4-8.2 [facility] Sodium [Moles/Vol] 138 mmol/L 136-145 [facility] Bilirubin Test strip Ql (U)O rdered By: Dr. Beasley on 07-24-2022 Bilirubin Ql (U) Negative Negative [facility] Blood erythrocytes count (nu mber/volume)Ordered By: Dr. Beasley on 07-24-2022 RBC (Bld) [#/Vol] 4.90 10*6/uL 4.2-5.4 [facility] Blood hemoglobin measurement (mass/volume)Ordered By: Dr. Beasley on 07-24-2022 Hemoglobin (Bld) [Mass/Vol] 12.9 g/dL 12.0-15.0 [facility] Blood lymphocytes/100 leukoc ytesOrdered By: Dr. Beasley on 07-24-2022 Lymphocytes/100 WBC (Bld) 32.8 % 19-41 [facility] Blood monocytes/100 leukocyt esOrdered By: Dr. Beasley on 07-24-2022 Monocytes/100 WBC (Bld) 5.5 % 0-10 [facility] Blood platelet mean volumeOr dered By: Dr. Beasley on 07-24-2022 Platelet mean volume (Bld) [Entitic vol] 9.0 fL 6.2-12.0 [facility] Determination of erythrocyte mean corpuscular volume (MCV)Ordered By: Dr. Beasley on 07-24-2022 MCV (RBC) [Entitic vol] 86.9 fL 81-99 [facility] Hematocrit Auto (Bld) [Volum e fraction]Ordered By: Dr. Beasley on 07-24-2022 Hematocrit (Bld) [Volume fraction] 42.6 % 37-47 [facility] Ketones Test strip Ql (U)Ord ered By: Dr. Beasley on 07-24-2022 Ketones Ql (U) Negative Negative [facility] Laboratory - Chemistry and C hemistry - challengeOrdered By: Dr. Beasley on 07-24-2022 ALP [Catalytic activity/Vol] 91 U/L 45-117 [facility] ALT [Catalytic activity/Vol] 45 U/L 13-56 [facility] CO2 [Moles/Vol] 25.0 mmol/L 21.0-32.0 [facility] Globulin (S) [Mass/Vol] 5.6 g/dL 2.2-4.2 [facility] Urea nitrogen/Creatinine [Mass ratio] 23.3 mg/mg 10-20 [facility] Laboratory - Hematology and Cell countsOrdered By: Dr. Beasley on 07-24-2022 Erythrocyte distribution width (RBC) [Entitic vol] 49.7 fL 35.1-43.9 [facility] Erythrocyte distribution width (RBC) [Ratio] 15.8 % 11.6-14.6 [facility] Immature granulocytes/100 WBC (Bld) 0.200 % 0.0-0.9 [facility] Comment on above: IG% - Immature Granu locytes (promyelocytes, myelocytes and metamyelocytes) > 1% indicates that a LEFT SHIFT is Present. MCH (RBC) [Entitic mass] 26.3 pg 27.0-32.0 [facility] Nucleated RBC/100 WBC (Bld) [Ratio] 0 % 0-5 [facility] MCHC Auto (RBC) [Mass/Vol]Or dered By: Dr. Beasley on 07-24-2022 MCHC (RBC) [Mass/Vol] 30.3 g/dL 32-36 [facility] Mucus LM Ql (Urine sed)Order ed By: Dr. Beasley on 07-24-2022 Mucus Ql (Urine sed) 0 SEEN /hpf [facility] Nitrite Test strip Ql (U)Ord ered By: Dr. Beasley on 07-24-2022 Nitrite Ql (U) Negative Negative [facility] No Panel InformationOrdered By: Dr. Beasley on 07-24-2022 26.3 pg 27.0-32.0 [facility] 15.8 % 11.6-14.6 [facility] 49.7 fl 35.1-43.9 [facility] 0.200 % 0.0-0.9 [facility] 0 % 0-5 [facility] Estimated Creatinine Clearance Calc 126.71 ml/min [facility] Estimated GFR (MDRD) Amer 227 mL/min >60 [facility] Comment on above: GFR Calc Estimated GFR (MDRD) Non-Af Amer 188 mL/min >60 [facility] Comment on above: Non- GFR Calc 188 mL/min >60 [facility] 227 mL/min >60 [facility] 126.71 ml/min [facility] 23.3 RATIO 10-20 [facility] 5.6 g/dL 2.2-4.2 [facility] 91 U/L 45-117 [facility] 45 U/L 13-56 [facility] 25.0 mmol/L 21.0-32.0 [facility] Platelets bldOrdered By: Dr. Beasley on 07-24-2022 Platelets (Bld) [#/Vol] 349 10*3/uL 150-450 [facility] Protein Test strip Ql (U)Ord ered By: Dr. Beasley on 07-24-2022 Protein Ql (U) 30 mg/dl Negative [facility] Serum or plasma albumin miguel angel urement (mass/volume)Ordered By: Dr. Beasley on 07-24-2022 Albumin [Mass/Vol] 3.4 g/dL 3.2-5.0 [facility] Serum or plasma albumin/glob ulin mass ratioOrdered By: Dr. Beasley on 07-24-2022 Albumin/Globulin [Mass ratio] 0.6 {ratio} 0.9-2.4 [facility] Serum or plasma calcium miguel angel urement (mass/volume)Ordered By: Dr. Beasley on 07-24-2022 Calcium [Mass/Vol] 9.6 mg/dL 8.5-10.1 [facility] Serum or plasma creatinine m easurement (mass/volume)Ordered By: Dr. Beasley on 07-24-2022 Creatinine [Mass/Vol] 0.39 mg/dL 0.55-1.02 [facility] Comment on above: The validity of the calculated GFR & GFRAA in patients over 70 years has not been determined. Clinical correlation is essential. Serum or plasma urea nitroge n measurement (mass/volume)Ordered By: Dr. Beasley on 07-24-2022 Urea nitrogen [Mass/Vol] 9 mg/dL 7-18 [facility] Squamous epithelial cells de tection in urine sediment by light microscopyOrdered By: Dr. Beasley on 07-24-2022 Epithelial cells.squamous LM Ql (Urine sed) 0 SEEN /hpf 5-10 [facility] Thin prep Papanicolaou smear with manual screeningOrdered By: Dr. Beasley on 07-24-2022 Thin prep Papanicolaou smear with manual screening 55 U/L 15-37 [facility] Comment on above: Moderate Hemolysis, Result may be falsely increased. Thin prep Papanicolaou smear with manual screening 8 5-15 [facility] Urine blood detectionOrdered By: Dr. Beasley on 07-24-2022 RBC Ql (U) 150 /ul Negative [facility] RBC Ql (U) 5-10 SEEN /hpf 0-5 [facility] Urine clarityOrdered By: Dr. Beasley on 07-24-2022 Clarity (U) Turbid Clear [facility] Urine color determinationOrd ered By: Dr. Beasley on 07-24-2022 Color (U) Yellow Yellow [facility] Urine glucose detectionOrder ed By: Dr. Beasley on 07-24-2022 Glucose Ql (U) Normal mg/dl Normal [facility] Urine leukocyte esterase det ection by dipstickOrdered By: Dr. Beasley on 07-24-2022 Leukocyte esterase Test strip Ql (U) 500 /ul Negative [facility] Urine pHOrdered By: Dr. Devika stout on 07-24-2022 pH (U) 7.0 [pH] 5.0 - 8.0 [facility] Urine sediment bacteria coun t by microscopy (number/high power field)Ordered By: Dr. Beasley on 07-24-2022 Bacteria LM.HPF (Urine sed) [#/Area] 2 /[HPF] None Seen [facility] Urine specific gravity measu rementOrdered By: Dr. Beasley on 07-24-2022 Specific gravity (U) [Rel density] 1.010 1.002-1.030 [facility] Urobilinogen Auto test strip Ql (U)Ordered By: Dr. Beasley on 07-24-2022 Urobilinogen Ql (U) Normal mg/dl Normal [facility] Culture, urineOrdered By: Cristi Vicente on 07-07-2022 Bacteria identified Cx Nom (U) Morganella morganii sp morgani [facility] Bacteria identified Cx Nom (U) Proteus mirabilis [facility] Bacteria identified Cx Nom (U) Vancomycin Resist. E. faecalis [facility] Bilirubin Test strip Ql (U)O rdered By: Lavon Vicente on 07-02-2022 Bilirubin Ql (U) Negative Negative [facility] Ketones Test strip Ql (U)Ord ered By: Lavon Vicente on 07-02-2022 Ketones Ql (U) Negative Negative [facility] Nitrite Test strip Ql (U)Ord ered By: Lavon Vicente on 07-02-2022 Nitrite Ql (U) Negative Negative [facility] Protein Test strip Ql (U)Ord ered By: Lavon Vicente on 07-02-2022 Protein Ql (U) Negative Negative [facility] Urine blood detectionOrdered By: Lavon Vicente on 07-02-2022 RBC Ql (U) Negative Negative [facility] Urine clarityOrdered By: Estefany Vicente on 07-02-2022 Clarity (U) Clear Clear [facility] Urine color determinationOrd ered By: Lavon Vicente on 07-02-2022 Color (U) Straw Yellow [facility] Urine glucose detectionOrder ed By: Lavon Vicente on 07-02-2022 Glucose Ql (U) Normal mg/dl Normal [facility] Urine leukocyte esterase det ection by dipstickOrdered By: Lavon Vicente on 07-02-2022 Leukocyte esterase Test strip Ql (U) 500 /ul Negative [facility] Urine pHOrdered By: Lavon alcala on 07-02-2022 pH (U) 7.0 [pH] 5.0 - 8.0 [facility] Urine specific gravity measu rementOrdered By: Lavon Vicente on 07-02-2022 Specific gravity (U) [Rel density] 1.005 1.002-1.030 [facility] Urobilinogen Auto test strip Ql (U)Ordered By: Lavon Vicente on 07-02-2022 Urobilinogen Ql (U) Normal mg/dl Normal [facility] Laboratory - Microbiology an d Antimicrobial susceptibilityOrdered By: Dr. River on 06-08-2022 Bacteria identified Cx Nom (Bld) No growth in 5 days. [facility] Absolute lymphocyte countOrd ered By: Dr. Duval on 06-05-2022 Lymphocytes Auto (Unsp spec) [#/Vol] 2.91 10*3/uL 0.83-4.51 [facility] Basophil percentageOrdered B y: Dr. Duval on 06-05-2022 Basophils/100 WBC (Bld) 0.7 % 0-1 [facility] Bilirubin [Mass/Vol] 0.30 mg/dL 0.20-1.00 [facility] Comment on above: For patients on eltr ombopag therapy, use of Dimension Amanda TBIL is not recommended. Chloride [Moles/Vol] 104 mmol/L 98-107 [facility] Eosinophils/100 WBC (Bld) 2.8 % 0-5 [facility] Glucose [Mass/Vol] 142 mg/dL 74-106 [facility] Comment on above: Fasting Glucose resu lt greater than or equal to 126 mg/dL suggests DIABETES MELLITUS per A.D.A. criteria. Neutrophils (Bld) [#/Vol] 3.7 10*3/uL 2.0-7.7 [facility] Neutrophils/100 WBC (Bld) 49.7 % 47-70 [facility] Potassium [Moles/Vol] 3.6 mmol/L 3.5-5.1 [facility] Protein [Mass/Vol] 7.4 g/dL 6.4-8.2 [facility] Sodium [Moles/Vol] 138 mmol/L 136-145 [facility] WBC (Bld) [#/Vol] 7.5 10*3/uL 4.4-11.0 [facility] Blood erythrocytes count (nu mber/volume)Ordered By: Dr. Duval on 06-05-2022 RBC (Bld) [#/Vol] 3.84 10*6/uL 4.2-5.4 [facility] Blood hemoglobin measurement (mass/volume)Ordered By: Dr. Duval on 06-05-2022 Hemoglobin (Bld) [Mass/Vol] 10.4 g/dL 12.0-15.0 [facility] Blood lymphocytes/100 leukoc ytesOrdered By: Dr. Duval on 06-05-2022 Lymphocytes/100 WBC (Bld) 38.7 % 19-41 [facility] Blood monocytes/100 leukocyt esOrdered By: Dr. Duval on 06-05-2022 Monocytes/100 WBC (Bld) 7.6 % 0-10 [facility] Blood platelet mean volumeOr dered By: Dr. Duval on 06-05-2022 Platelet mean volume (Bld) [Entitic vol] 8.7 fL 6.2-12.0 [facility] Culture, urineOrdered By: Dr Kimberly River on 06-05-2022 Bacteria identified Cx Nom (U) Proteus mirabilis [facility] Determination of erythrocyte mean corpuscular volume (MCV)Ordered By: Dr. Duval on 06-05-2022 MCV (RBC) [Entitic vol] 87.8 fL 81-99 [facility] Hematocrit Auto (Bld) [Volum e fraction]Ordered By: Dr. Duval on 06-05-2022 Hematocrit (Bld) [Volume fraction] 33.7 % 37-47 [facility] Laboratory - Chemistry and C hemistry - challengeOrdered By: Dr. Duval on 06-05-2022 ALP [Catalytic activity/Vol] 83 U/L 45-117 [facility] ALT [Catalytic activity/Vol] 56 U/L 13-56 [facility] CO2 [Moles/Vol] 27.0 mmol/L 21.0-32.0 [facility] Globulin (S) [Mass/Vol] 4.6 g/dL 2.2-4.2 [facility] Urea nitrogen/Creatinine [Mass ratio] 20.1 mg/mg 10-20 [facility] Laboratory - Hematology and Cell countsOrdered By: Dr. Duval on 06-05-2022 Erythrocyte distribution width (RBC) [Entitic vol] 50.2 fL 35.1-43.9 [facility] Erythrocyte distribution width (RBC) [Ratio] 15.7 % 11.6-14.6 [facility] Immature granulocytes/100 WBC (Bld) 0.500 % 0.0-0.9 [facility] Comment on above: IG% - Immature Granu locytes (promyelocytes, myelocytes and metamyelocytes) > 1% indicates that a LEFT SHIFT is Present. MCH (RBC) [Entitic mass] 27.1 pg 27.0-32.0 [facility] Nucleated RBC/100 WBC (Bld) [Ratio] 0.3 % 0-5 [facility] MCHC Auto (RBC) [Mass/Vol]Or dered By: Dr. Duval on 06-05-2022 MCHC (RBC) [Mass/Vol] 30.9 g/dL 32-36 [facility] No Panel InformationOrdered By: Dr. Duval on 06-05-2022 Estimated Creatinine Clearance Calc 109.82 ml/min [facility] Estimated GFR (MDRD) Amer 192 mL/min >60 [facility] Comment on above: GFR Calc Estimated GFR (MDRD) Non-Af Amer 159 mL/min >60 [facility] Comment on above: Non- GFR Calc Platelets bldOrdered By: Dr. Duval on 06-05-2022 Platelets (Bld) [#/Vol] 313 10*3/uL 150-450 [facility] Serum or plasma albumin miguel angel urement (mass/volume)Ordered By: Dr. Duval on 06-05-2022 Albumin [Mass/Vol] 2.8 g/dL 3.2-5.0 [facility] Serum or plasma albumin/glob ulin mass ratioOrdered By: Dr. Duval on 06-05-2022 Albumin/Globulin [Mass ratio] 0.6 {ratio} 0.9-2.4 [facility] Serum or plasma calcium miguel angel urement (mass/volume)Ordered By: Dr. Duval on 06-05-2022 Calcium [Mass/Vol] 8.7 mg/dL 8.5-10.1 [facility] Serum or plasma creatinine m easurement (mass/volume)Ordered By: Dr. Duval on 06-05-2022 Creatinine [Mass/Vol] 0.45 mg/dL 0.55-1.02 [facility] Comment on above: The validity of the calculated GFR & GFRAA in patients over 70 years has not been determined. Clinical correlation is essential. Serum or plasma urea nitroge n measurement (mass/volume)Ordered By: Dr. Duval on 06-05-2022 Urea nitrogen [Mass/Vol] 9 mg/dL 7-18 [facility] Thin prep Papanicolaou smear with manual screeningOrdered By: Dr. Duval on 06-05-2022 Thin prep Papanicolaou smear with manual screening 27 U/L 15-37 [facility] Thin prep Papanicolaou smear with manual screening 7 5-15 [facility] Absolute lymphocyte counton 06-03-2022 Lymphocytes Auto (Unsp spec) [#/Vol] 2.86 10*3/uL 0.83-4.51 [facility] Work Phone: Amorphous sediment detection in urine sediment by light microscopyOrdered By: Dr. River on 06-03-2022 Amorphous sediment LM Ql (Urine sed) 2+ [facility] Basophil percentageOrdered B y: Dr. River on 06-03-2022 Basophil percentage >100 SEEN /hpf 0-5 [facility] Lactate [Moles/Vol] 0.8 mmol/L 0.4-2.0 [facility] Basophil percentageon 2021 Basophils/100 WBC (Bld) 0.5 % 0-1 [facility] Work Phone: Bilirubin [Mass/Vol] 0.20 mg/dL 0.20-1.00 [facility] Work Phone: Comment on above: For patients on eltr ombopag therapy, use of Dimension Amanda TBIL is not recommended. Chloride [Moles/Vol] 102 mmol/L 98-107 [facility] Work Phone: Eosinophils/100 WBC (Bld) 3.7 % 0-5 [facility] Work Phone: Glucose [Mass/Vol] 127 mg/dL 74-106 [facility] Work Phone: [phone] Comment on above: Fasting Glucose resu lt greater than or equal to 126 mg/dL suggests DIABETES MELLITUS per A.D.A. criteria. Neutrophils (Bld) [#/Vol] 4.1 10*3/uL 2.0-7.7 [facility] Work Phone: Neutrophils/100 WBC (Bld) 52.3 % 47-70 [facility] Work Phone: Potassium [Moles/Vol] 3.8 mmol/L 3.5-5.1 [facility] Work Phone: Comment on above: Slight Hemolysis, Re sult may be falsely increased. Protein [Mass/Vol] 7.6 g/dL 6.4-8.2 [facility] Work Phone: Sodium [Moles/Vol] 138 mmol/L 136-145 [facility] Work Phone: WBC (Bld) [#/Vol] 7.9 10*3/uL 4.4-11.0 [facility] Work Phone: Bilirubin Test strip Ql (U)O rdered By: Dr. River on 06-03-2022 Bilirubin Ql (U) 3 mg/dL Negative [facility] Comment on above: COLOR OF URINE MAY A FFECT DIPSTICK RESULTS. Blood erythrocytes count (nu mber/volume)on 06-03-2022 RBC (Bld) [#/Vol] 4.04 10*6/uL 4.2-5.4 [facility] Work Phone: Blood hemoglobin measurement (mass/volume)on 06-03-2022 Hemoglobin (Bld) [Mass/Vol] 10.7 g/dL 12.0-15.0 [facility] Work Phone: Blood lymphocytes/100 leukoc yteson 06-03-2022 Lymphocytes/100 WBC (Bld) 36.2 % 19-41 [facility] Work Phone: Blood monocytes/100 leukocyt eson 06-03-2022 Monocytes/100 WBC (Bld) 6.8 % 0-10 [facility] Work Phone: Blood platelet mean volumeon 06-03-2022 Platelet mean volume (Bld) [Entitic vol] 8.8 fL 6.2-12.0 [facility] Work Phone: Determination of erythrocyte mean corpuscular volume (MCV)on 06-03-2022 MCV (RBC) [Entitic vol] 87.4 fL 81-99 [facility] Work Phone: [phone] Hematocrit Auto (Bld) [Volum e fraction]on 06-03-2022 Hematocrit (Bld) [Volume fraction] 35.3 % 37-47 [facility] Work Phone: INR in Blood by Coagulation assayOrdered By: Dr. River on 06-03-2022 INR Coag (Bld) [Relative time] 1.2 {INR} [facility] Influenza virus A and B and SARS-CoV-2 (COVID-19) Ag panel - Upper respiratory specimOrdered By: Dr. River on 06-03-2022 SARS-CoV-2 (COVID-19) RNA NBA+probe Ql (Resp) [facility] Ketones Test strip Ql (U)Ord ered By: Dr. River on 06-03-2022 Ketones Ql (U) 15 mg/dl Negative [facility] Laboratory - Chemistry and C hemistry - challengeon 06-03-2022 ALP [Catalytic activity/Vol] 96 U/L 45-117 [facility] Work Phone: ALT [Catalytic activity/Vol] 69 U/L 13-56 [facility] Work Phone: CO2 [Moles/Vol] 31.0 mmol/L 21.0-32.0 [facility] Work Phone: Globulin (S) [Mass/Vol] 4.7 g/dL 2.2-4.2 [facility] Work Phone: Urea nitrogen/Creatinine [Mass ratio] 49.4 mg/mg 10-20 [facility] Work Phone: Laboratory - CoagulationOrde red By: Dr. River on 06-03-2022 aPTT Coag (Bld) [Time] 34.1 s 24.1-36.2 [facility] PT Coag (PPP) [Time] 14.6 s 11.7-14.9 [facility] Laboratory - Hematology and Cell countson 06-03-2022 Erythrocyte distribution width (RBC) [Entitic vol] 50.6 fL 35.1-43.9 [facility] Work Phone: Erythrocyte distribution width (RBC) [Ratio] 15.8 % 11.6-14.6 [facility] Work Phone: Immature granulocytes/100 WBC (Bld) 0.500 % 0.0-0.9 [facility] Work Phone: Comment on above: IG% - Immature Granu locytes (promyelocytes, myelocytes and metamyelocytes) > 1% indicates that a LEFT SHIFT is Present. MCH (RBC) [Entitic mass] 26.5 pg 27.0-32.0 [facility] Work Phone: Nucleated RBC/100 WBC (Bld) [Ratio] 0 % 0-5 [facility] Work Phone: MCHC Auto (RBC) [Mass/Vol]on 06-03-2022 MCHC (RBC) [Mass/Vol] 30.3 g/dL 32-36 [facility] Work Phone: Magnesium ammonium phosphate crystal detectionOrdered By: Dr. River on 06-03-2022 Triple phosphate crystals LM Ql (Urine sed) 1+ /hpf [facility] Mucus LM Ql (Urine sed)Order ed By: Dr. River on 06-03-2022 Mucus Ql (Urine sed) 0 SEEN /hpf [facility] Nitrite Test strip Ql (U)Ord ered By: Dr. River on 06-03-2022 Nitrite Ql (U) Positive Negative [facility] No Panel InformationOrdered By: Dr. River on 06-03-2022 Urine Transitional Epithelial Cells 0-5 SEEN /hpf 0-5 [facility] No Panel Informationon 06-03 Estimated Creatinine Clearance Calc 142.28 ml/min [facility] Work Phone: Estimated GFR (MDRD) Amer 216 mL/min >60 [facility] Work Phone: Comment on above: GFR Calc Estimated GFR (MDRD) Non-Af Amer 178 mL/min >60 [facility] Work Phone: Comment on above: Non- GFR Calc Platelets bldon 06-03-2022 Platelets (Bld) [#/Vol] 363 10*3/uL 150-450 [facility] Work Phone: Protein Test strip Ql (U)Ord ered By: Dr. River on 06-03-2022 Protein Ql (U) 100 mg/dl Negative [facility] Serum or plasma albumin miguel angel urement (mass/volume)on 06-03-2022 Albumin [Mass/Vol] 2.9 g/dL 3.2-5.0 [facility] Work Phone: Serum or plasma albumin/glob ulin mass ratioon 06-03-2022 Albumin/Globulin [Mass ratio] 0.6 {ratio} 0.9-2.4 [facility] Work Phone: Serum or plasma calcium miguel angel urement (mass/volume)on 06-03-2022 Calcium [Mass/Vol] 8.7 mg/dL 8.5-10.1 [facility] Work Phone: [phone] Serum or plasma creatinine m easurement (mass/volume)on 06-03-2022 Creatinine [Mass/Vol] 0.40 mg/dL 0.55-1.02 [facility] Work Phone: Comment on above: The validity of the calculated GFR & GFRAA in patients over 70 years has not been determined. Clinical correlation is essential. Serum or plasma urea nitroge n measurement (mass/volume)on 06-03-2022 Urea nitrogen [Mass/Vol] 20 mg/dL 7-18 [facility] Work Phone: Squamous epithelial cells de tection in urine sediment by light microscopyOrdered By: Dr. River on 06-03-2022 Epithelial cells.squamous LM Ql (Urine sed) 0-5 SEEN /hpf 5-10 [facility] Thin prep Papanicolaou smear with manual screeningon 06-03-2022 Thin prep Papanicolaou smear with manual screening 39 U/L 15-37 [facility] Work Phone: Comment on above: Slight Hemolysis, Re sult may be falsely increased. Thin prep Papanicolaou smear with manual screening 5 5-15 [facility] Work Phone: Urine blood detectionOrdered By: Dr. River on 06-03-2022 RBC Ql (U) 150 /ul Negative [facility] RBC Ql (U) 10-25 SEEN /hpf 0-5 [facility] Urine clarityOrdered By: Dr. River on 06-03-2022 Clarity (U) Cloudy Clear [facility] Urine color determinationOrd ered By: Dr. River on 06-03-2022 Color (U) Yellow Yellow [facility] Urine glucose detectionOrder ed By: Dr. River on 06-03-2022 Glucose Ql (U) Normal mg/dl Normal [facility] Urine leukocyte esterase det ection by dipstickOrdered By: Dr. River on 06-03-2022 Leukocyte esterase Test strip Ql (U) 500 /ul Negative [facility] Urine pHOrdered By: Dr. Janae payton on 06-03-2022 pH (U) 7.0 [pH] 5.0 - 8.0 [facility] Urine sediment bacteria coun t by microscopy (number/high power field)Ordered By: Dr. River on 06-03-2022 Bacteria LM.HPF (Urine sed) [#/Area] 4 /[HPF] None Seen [facility] Urine sediment renal epithel ial cell count by microscopy (number/high power field)Ordered By: Dr. River on 06-03-2022 Epithelial cells.renal LM.HPF (Urine sed) [#/Area] 0 /[HPF] 0-5 [facility] Urine specific gravity measu rementOrdered By: Dr. River on 06-03-2022 Specific gravity (U) [Rel density] 1.015 1.002-1.030 [facility] Urobilinogen Auto test strip Ql (U)Ordered By: Dr. River on 06-03-2022 Urobilinogen Ql (U) 4 mg/dl Normal [facility] Culture, urineOrdered By: Cristi Vicente on 04-01-2022 Bacteria identified Cx Nom (U) Proteus mirabilis [facility] Basophil percentageOrdered B y: Lavon Vicente on 03-27-2022 Basophil percentage 10-25 SEEN /hpf 0-5 [facility] Bilirubin Test strip Ql (U)O rdered By: Lavon Vicente on 03-27-2022 Bilirubin Ql (U) Negative Negative [facility] Ketones Test strip Ql (U)Ord ered By: Lavon Vicente on 03-27-2022 Ketones Ql (U) Negative Negative [facility] Magnesium ammonium phosphate crystal detectionOrdered By: Lavon Vicente on 03-27-2022 Triple phosphate crystals LM Ql (Urine sed) 3+ /hpf [facility] Mucus LM Ql (Urine sed)Order ed By: Lavon Vicente on 03-27-2022 Mucus Ql (Urine sed) 0 SEEN /hpf [facility] Nitrite Test strip Ql (U)Ord ered By: Lavon Vicente on 03-27-2022 Nitrite Ql (U) Positive Negative [facility] Protein Test strip Ql (U)Ord ered By: Lavon Vicente on 03-27-2022 Protein Ql (U) 30 mg/dl Negative [facility] Squamous epithelial cells de tection in urine sediment by light microscopyOrdered By: Lavon Vicente on 03-27-2022 Epithelial cells.squamous LM Ql (Urine sed) 0-5 SEEN /hpf 5-10 [facility] Urine blood detectionOrdered By: Lavon Vicente on 03-27-2022 RBC Ql (U) 250 /ul Negative [facility] RBC Ql (U) 10-25 SEEN /hpf 0-5 [facility] Urine clarityOrdered By: Estefany Vicente on 03-27-2022 Clarity (U) Cloudy Clear [facility] Urine color determinationOrd ered By: Lavon Vicente on 03-27-2022 Color (U) Yellow Yellow [facility] Urine glucose detectionOrder ed By: Lavon Vicente on 03-27-2022 Glucose Ql (U) Normal mg/dl Normal [facility] Urine leukocyte esterase det ection by dipstickOrdered By: Lavon Vicente on 03-27-2022 Leukocyte esterase Test strip Ql (U) 500 /ul Negative [facility] Urine pHOrdered By: Lavon alcala on 03-27-2022 pH (U) 8.0 [pH] 5.0 - 8.0 [facility] Urine sediment bacteria coun t by microscopy (number/high power field)Ordered By: Lavon Vicente on 03-27-2022 Bacteria LM.HPF (Urine sed) [#/Area] 4 /[HPF] None Seen [facility] Urine specific gravity measu rementOrdered By: Lavon Vicente on 03-27-2022 Specific gravity (U) [Rel density] 1.010 1.002-1.030 [facility] Urobilinogen Auto test strip Ql (U)Ordered By: Lavon Vicente on 03-27-2022 Urobilinogen Ql (U) Normal mg/dl Normal [facility] Iron measurement (mass/mass) on 03-18-2022 Iron (Unsp spec) [Mass/Mass] 45 ug/dL 50-170 [facility] Work Phone: No Panel Informationon 03-18 Total Iron Binding Capacity 281 ug/dL 250-450 [facility] Work Phone: Serum or plasma iron saturat ion measurement (mass fraction)on 03-18-2022 Iron saturation [Mass fraction] 16.0 % 15.0-55.0 [facility] Work Phone: Basophil percentageon 2021 Basophil percentage 25-50 SEEN /hpf 0-5 [facility] Work Phone: Bilirubin Test strip Ql (U)o n 02-27-2022 Bilirubin Ql (U) Negative Negative [facility] Work Phone: Ketones Test strip Ql (U)on 02-27-2022 Ketones Ql (U) Negative Negative [facility] Work Phone: Mucus LM Ql (Urine sed)on Mucus Ql (Urine sed) 0 SEEN /hpf [facility] Work Phone: Nitrite Test strip Ql (U)on 02-27-2022 Nitrite Ql (U) Negative Negative [facility] Work Phone: Protein Test strip Ql (U)on 02-27-2022 Protein Ql (U) 15 mg/dl Negative [facility] Work Phone: Squamous epithelial cells de tection in urine sediment by light microscopyon 02-27-2022 Epithelial cells.squamous LM Ql (Urine sed) 0-5 SEEN /hpf 5-10 [facility] Work Phone: Urine blood detectionon 02-12 RBC Ql (U) 250 /ul Negative [facility] Work Phone: RBC Ql (U) 25-50 SEEN /hpf 0-5 [facility] Work Phone: Urine clarityon 02-27-2022 Clarity (U) Sl. Cloudy Clear [facility] Work Phone: Urine color determinationon 02-27-2022 Color (U) Yellow Yellow [facility] Work Phone: Urine glucose detectionon Glucose Ql (U) Normal mg/dl Normal [facility] Work Phone: Urine leukocyte esterase det ection by dipstickon 02-27-2022 Leukocyte esterase Test strip Ql (U) 500 /ul Negative [facility] Work Phone: Urine pHon 02-27-2022 pH (U) 8.0 [pH] 5.0 - 8.0 [facility] Work Phone: Urine sediment bacteria coun t by microscopy (number/high power field)on 02-27-2022 Bacteria LM.HPF (Urine sed) [#/Area] 1 /[HPF] None Seen [facility] Work Phone: Urine specific gravity measu rementon 02-27-2022 Specific gravity (U) [Rel density] 1.010 1.002-1.030 [facility] Work Phone: Urobilinogen Auto test strip Ql (U)on 02-27-2022 Urobilinogen Ql (U) Normal mg/dl Normal [facility] Work Phone: Basophil percentageon 2021 Chloride [Moles/Vol] 103 mmol/L 98-107 [facility] Work Phone: Glucose [Mass/Vol] 191 mg/dL 74-106 [facility] Work Phone: Comment on above: Fasting Glucose resu lt greater than or equal to 126 mg/dL suggests DIABETES MELLITUS per A.D.A. criteria. Potassium [Moles/Vol] 3.8 mmol/L 3.5-5.1 [facility] Work Phone: Sodium [Moles/Vol] 140 mmol/L 136-145 [facility] Work Phone: [phone] WBC (Bld) [#/Vol] 6.8 10*3/uL 4.4-11.0 [facility] Work Phone: Blood erythrocytes count (nu mber/volume)on 02-19-2022 RBC (Bld) [#/Vol] 4.10 10*6/uL 4.2-5.4 [facility] Work Phone: [phone] Blood hemoglobin measurement (mass/volume)on 02-19-2022 Hemoglobin (Bld) [Mass/Vol] 11.3 g/dL 12.0-15.0 [facility] Work Phone: [phone] Blood platelet mean volumeon 02-19-2022 Platelet mean volume (Bld) [Entitic vol] 9.2 fL 6.2-12.0 [facility] Work Phone: [phone] Determination of erythrocyte mean corpuscular volume (MCV)on 02-19-2022 MCV (RBC) [Entitic vol] 90.2 fL 81-99 [facility] Work Phone: [phone] Hematocrit Auto (Bld) [Volum e fraction]on 02-19-2022 Hematocrit (Bld) [Volume fraction] 37.0 % 37-47 [facility] Work Phone: Laboratory - Chemistry and C hemistry - challengeon 02-19-2022 CO2 [Moles/Vol] 29.0 mmol/L 21.0-32.0 [facility] Work Phone: Urea nitrogen/Creatinine [Mass ratio] 24.0 mg/mg 10-20 [facility] Work Phone: [phone] Laboratory - Hematology and Cell countson 02-19-2022 Erythrocyte distribution width (RBC) [Entitic vol] 52.4 fL 35.1-43.9 [facility] Work Phone: Erythrocyte distribution width (RBC) [Ratio] 16.0 % 11.6-14.6 [facility] Work Phone: MCH (RBC) [Entitic mass] 27.6 pg 27.0-32.0 [facility] Work Phone: MCHC Auto (RBC) [Mass/Vol]on 02-19-2022 MCHC (RBC) [Mass/Vol] 30.5 g/dL 32-36 [facility] Work Phone: No Panel Informationon 02-19 Estimated GFR (MDRD) Amer 187 mL/min >60 [facility] Work Phone: Comment on above: GFR Calc Estimated GFR (MDRD) Non-Af Amer 154 mL/min >60 [facility] Work Phone: [phone] Comment on above: Non- GFR Calc Thyroid Stimulating Hormone (TSH) 2.26 uIU/mL 0.358-3.74 [facility] Work Phone: [phone] Vitamin D 25-Hydroxy 32.3 ng/mL [facility] Work Phone: Comment on above: Vitamin D 25(OH) Sta tus Range Deficiency <20 ng/mL (50nmol/L) Insufficiency 20 - 30 ng/mL (50 - 75 nmol/L) Sufficiency 30 - 100 ng/mL (75 - 250 nmol/L) Toxicity >100 ng/mL (>250 nmol/L) Platelets bldon 02-19-2022 Platelets (Bld) [#/Vol] 301 10*3/uL 150-450 [facility] Work Phone: Serum or plasma calcium miguel angel urement (mass/volume)on 02-19-2022 Calcium [Mass/Vol] 8.8 mg/dL 8.5-10.1 [facility] Work Phone: Serum or plasma creatinine m easurement (mass/volume)on 02-19-2022 Creatinine [Mass/Vol] 0.46 mg/dL 0.55-1.02 [facility] Work Phone: Comment on above: The validity of the calculated GFR & GFRAA in patients over 70 years has not been determined. Clinical correlation is essential. Serum or plasma urea nitroge n measurement (mass/volume)on 02-19-2022 Urea nitrogen [Mass/Vol] 11 mg/dL 7-18 [facility] Work Phone: Thin prep Papanicolaou smear with manual screeningon 02-19-2022 Thin prep Papanicolaou smear with manual screening 8 5-15 [facility] Work Phone: Basophil percentageon 2021 Basophil percentage 25-50 SEEN /hpf 0-5 [facility] Work Phone: Bilirubin Test strip Ql (U)o n 01-13-2022 Bilirubin Ql (U) 3 mg/dL Negative [facility] Work Phone: Comment on above: COLOR OF URINE MAY A FFECT DIPSTICK RESULTS. Ketones Test strip Ql (U)on 01-13-2022 Ketones Ql (U) Negative Negative [facility] Work Phone: Magnesium ammonium phosphate crystal detectionon 01-13-2022 Triple phosphate crystals LM Ql (Urine sed) 2+ /hpf [facility] Work Phone: Mucus LM Ql (Urine sed)on Mucus Ql (Urine sed) 0 SEEN /hpf [facility] Work Phone: Nitrite Test strip Ql (U)on 01-13-2022 Nitrite Ql (U) Positive Negative [facility] Work Phone: Protein Test strip Ql (U)on 01-13-2022 Protein Ql (U) 15 mg/dl Negative [facility] Work Phone: [phone] Squamous epithelial cells de tection in urine sediment by light microscopyon 01-13-2022 Epithelial cells.squamous LM Ql (Urine sed) 0 SEEN /hpf 5-10 [facility] Work Phone: Urine blood detectionon 08-0 RBC Ql (U) 50 /ul Negative [facility] Work Phone: [phone] RBC Ql (U) 0-5 SEEN /hpf 0-5 [facility] Work Phone: Urine clarityon 01-13-2022 Clarity (U) Sl. Cloudy Clear [facility] Work Phone: Urine color determinationon 01-13-2022 Color (U) Yellow Yellow [facility] Work Phone: Urine glucose detectionon Glucose Ql (U) Normal mg/dl Normal [facility] Work Phone: Urine leukocyte esterase det ection by dipstickon 01-13-2022 Leukocyte esterase Test strip Ql (U) 500 /ul Negative [facility] Work Phone: Urine pHon 01-13-2022 pH (U) 8.0 [pH] 5.0 - 8.0 [facility] Work Phone: [phone] Urine sediment bacteria coun t by microscopy (number/high power field)on 01-13-2022 Bacteria LM.HPF (Urine sed) [#/Area] 1 /[HPF] None Seen [facility] Work Phone: Urine specific gravity measu rementon 01-13-2022 Specific gravity (U) [Rel density] 1.010 1.002-1.030 [facility] Work Phone: Urobilinogen Auto test strip Ql (U)on 01-13-2022 Urobilinogen Ql (U) 4 mg/dl Normal [facility] Work Phone: Basophil percentageon 2021 Basophil percentage 0-5 SEEN /hpf 0-5 [facility] Work Phone: Bilirubin Test strip Ql (U)o n 12-24-2021 Bilirubin Ql (U) Negative Negative [facility] Work Phone: Ketones Test strip Ql (U)on 12-24-2021 Ketones Ql (U) Negative Negative [facility] Work Phone: Mucus LM Ql (Urine sed)on Mucus Ql (Urine sed) 0 SEEN /hpf [facility] Work Phone: Nitrite Test strip Ql (U)on 12-24-2021 Nitrite Ql (U) Negative Negative [facility] Work Phone: Protein Test strip Ql (U)on 12-24-2021 Protein Ql (U) 30 mg/dl Negative [facility] Work Phone: Squamous epithelial cells de tection in urine sediment by light microscopyon 12-24-2021 Epithelial cells.squamous LM Ql (Urine sed) 0-5 SEEN /hpf 5-10 [facility] Work Phone: Urine blood detectionon 12-12 RBC Ql (U) 50 /ul Negative [facility] Work Phone: RBC Ql (U) 0-5 SEEN /hpf 0-5 [facility] Work Phone: Urine clarityon 12-24-2021 Clarity (U) Sl. Cloudy Clear [facility] Work Phone: Urine color determinationon 12-24-2021 Color (U) Yellow Yellow [facility] Work Phone: Urine glucose detectionon Glucose Ql (U) Normal mg/dl Normal [facility] Work Phone: Urine leukocyte esterase det ection by dipstickon 12-24-2021 Leukocyte esterase Test strip Ql (U) 500 /ul Negative [facility] Work Phone: Urine pHon 12-24-2021 pH (U) 7.0 [pH] 5.0 - 8.0 [facility] Work Phone: Urine sediment bacteria coun t by microscopy (number/high power field)on 12-24-2021 Bacteria LM.HPF (Urine sed) [#/Area] 0 /[HPF] None Seen [facility] Work Phone: Urine specific gravity measu rementon 12-24-2021 Specific gravity (U) [Rel density] 1.010 1.002-1.030 [facility] Work Phone: Urobilinogen Auto test strip Ql (U)on 12-24-2021 Urobilinogen Ql (U) Normal mg/dl Normal [facility] Work Phone: Iron measurement (mass/mass) on 11-24-2021 Iron (Unsp spec) [Mass/Mass] 59 ug/dL 50-170 [facility] Work Phone: No Panel Informationon 11-24 Total Iron Binding Capacity 294 ug/dL 250-450 [facility] Work Phone: Serum or plasma ferritin shantel surement (mass/volume)on 11-24-2021 Ferritin [Mass/Vol] 90 ng/mL 8-252 [facility] Work Phone: Amorphous sediment detection in urine sediment by light microscopyon 10-27-2021 Amorphous sediment LM Ql (Urine sed) 2+ [facility] Work Phone: Basophil percentageon 2021 Basophil percentage 10-25 SEEN /hpf 0-5 [facility] Work Phone: Bilirubin Test strip Ql (U)o n 10-27-2021 Bilirubin Ql (U) Negative Negative [facility] Work Phone: Culture, urineon 10-27-2021 Bacteria identified Cx Nom (U) Proteus mirabilis [facility] Work Phone: Ketones Test strip Ql (U)on 10-27-2021 Ketones Ql (U) Negative Negative [facility] Work Phone: Magnesium ammonium phosphate crystal detectionon 10-27-2021 Triple phosphate crystals LM Ql (Urine sed) 1+ /hpf [facility] Work Phone: Mucus LM Ql (Urine sed)on Mucus Ql (Urine sed) 0 SEEN /hpf [facility] Work Phone: Nitrite Test strip Ql (U)on 10-27-2021 Nitrite Ql (U) Positive Negative [facility] Work Phone: Protein Test strip Ql (U)on 10-27-2021 Protein Ql (U) 15 mg/dl Negative [facility] Work Phone: Squamous epithelial cells de tection in urine sediment by light microscopyon 10-27-2021 Epithelial cells.squamous LM Ql (Urine sed) 0-5 SEEN /hpf 5-10 [facility] Work Phone: Urine blood detectionon 10-12 RBC Ql (U) 25 /ul Negative [facility] Work Phone: RBC Ql (U) 0 SEEN /hpf 0-5 [facility] Work Phone: Urine clarityon 10-27-2021 Clarity (U) Cloudy Clear [facility] Work Phone: Urine color determinationon 10-27-2021 Color (U) Yellow Yellow [facility] Work Phone: Urine glucose detectionon Glucose Ql (U) Normal mg/dl Normal [facility] Work Phone: Urine leukocyte esterase det ection by dipstickon 10-27-2021 Leukocyte esterase Test strip Ql (U) 500 /ul Negative [facility] Work Phone: Urine pHon 10-27-2021 pH (U) 8.0 [pH] 5.0 - 8.0 [facility] Work Phone: Urine sediment bacteria coun t by microscopy (number/high power field)on 10-27-2021 Bacteria LM.HPF (Urine sed) [#/Area] 2 /[HPF] None Seen [facility] Work Phone: Urine specific gravity measu rementon 10-27-2021 Specific gravity (U) [Rel density] 1.010 1.002-1.030 [facility] Work Phone: [phone] Urobilinogen Auto test strip Ql (U)on 10-27-2021 Urobilinogen Ql (U) Normal mg/dl Normal [facility] Work Phone: Basophil percentageon 2021 Chloride [Moles/Vol] 106 mmol/L 98-107 [facility] Work Phone: [phone] Glucose [Mass/Vol] 120 mg/dL 74-106 [facility] Work Phone: [phone] Comment on above: Fasting Glucose resu lt from 100 to 125 mg/dL suggests IMPAIRED HOMEOSTASIS per A.D.A. criteria. Potassium [Moles/Vol] 3.7 mmol/L 3.5-5.1 [facility] Work Phone: [phone] Sodium [Moles/Vol] 138 mmol/L 136-145 [facility] Work Phone: [phone] WBC (Bld) [#/Vol] 9.0 10*3/uL 4.4-11.0 [facility] Work Phone: Blood erythrocytes count (nu mber/volume)on 08-21-2021 RBC (Bld) [#/Vol] 3.98 10*6/uL 4.2-5.4 [facility] Work Phone: [phone] Blood hemoglobin measurement (mass/volume)on 08-21-2021 Hemoglobin (Bld) [Mass/Vol] 11.3 g/dL 12.0-15.0 [facility] Work Phone: [phone] Blood platelet mean volumeon 08-21-2021 Platelet mean volume (Bld) [Entitic vol] 8.9 fL 6.2-12.0 [facility] Work Phone: [phone] Determination of erythrocyte mean corpuscular volume (MCV)on 08-21-2021 MCV (RBC) [Entitic vol] 91.5 fL 81-99 [facility] Work Phone: [phone] Hematocrit Auto (Bld) [Volum e fraction]on 08-21-2021 Hematocrit (Bld) [Volume fraction] 36.4 % 37-47 [facility] Work Phone: [phone] Laboratory - Chemistry and C hemistry - challengeon 08-21-2021 CO2 [Moles/Vol] 28.0 mmol/L 21.0-32.0 [facility] Work Phone: [phone] Urea nitrogen/Creatinine [Mass ratio] 38.8 mg/mg 10-20 [facility] Work Phone: [phone] Laboratory - Hematology and Cell countson 08-21-2021 Erythrocyte distribution width (RBC) [Entitic vol] 51.8 fL 35.1-43.9 [facility] Work Phone: [phone] Erythrocyte distribution width (RBC) [Ratio] 15.7 % 11.6-14.6 [facility] Work Phone: [phone] MCH (RBC) [Entitic mass] 28.4 pg 27.0-32.0 [facility] Work Phone: [phone] MCHC Auto (RBC) [Mass/Vol]on 08-21-2021 MCHC (RBC) [Mass/Vol] 31.0 g/dL 32-36 [facility] Work Phone: No Panel Informationon 08-21 Estimated GFR (MDRD) Amer 269 mL/min >60 [facility] Work Phone: [phone] Comment on above: GFR Calc Estimated GFR (MDRD) Non-Af Amer 223 mL/min >60 [facility] Work Phone: [phone] Comment on above: Non- GFR Calc Thyroid Stimulating Hormone (TSH) 1.55 uIU/mL 0.358-3.74 [facility] Work Phone: [phone] Vitamin D 25-Hydroxy 26.9 ng/mL [facility] Work Phone: [phone] Comment on above: Vitamin D 25(OH) Sta tus Range Deficiency <20 ng/mL (50nmol/L) Insufficiency 20 - 30 ng/mL (50 - 75 nmol/L) Sufficiency 30 - 100 ng/mL (75 - 250 nmol/L) Toxicity >100 ng/mL (>250 nmol/L) Platelets bldon 08-21-2021 Platelets (Bld) [#/Vol] 351 10*3/uL 150-450 [facility] Work Phone: Serum or plasma calcium miguel angel urement (mass/volume)on 08-21-2021 Calcium [Mass/Vol] 8.7 mg/dL 8.5-10.1 [facility] Work Phone: Serum or plasma creatinine m easurement (mass/volume)on 08-21-2021 Creatinine [Mass/Vol] 0.34 mg/dL 0.55-1.02 [facility] Work Phone: Comment on above: The validity of the calculated GFR & GFRAA in patients over 70 years has not been determined. Clinical correlation is essential. Serum or plasma urea nitroge n measurement (mass/volume)on 08-21-2021 Urea nitrogen [Mass/Vol] 13 mg/dL 7-18 [facility] Work Phone: Thin prep Papanicolaou smear with manual screeningon 08-21-2021 Thin prep Papanicolaou smear with manual screening 4 5-15 [facility] Work Phone: Basophil percentageon 2021 Basophil percentage 50-100 SEEN /hpf [facility] Work Phone: Bilirubin Test strip Ql (U)o n 08-13-2021 Bilirubin Ql (U) Negative Negative [facility] Work Phone: [phone] Ketones Test strip Ql (U)on 08-13-2021 Ketones Ql (U) 5 mg/dl Negative [facility] Work Phone: Mucus LM Ql (Urine sed)on Mucus Ql (Urine sed) 0 SEEN /hpf [facility] Work Phone: [phone] Nitrite Test strip Ql (U)on 08-13-2021 Nitrite Ql (U) Positive Negative [facility] Work Phone: Protein Test strip Ql (U)on 08-13-2021 Protein Ql (U) 100 mg/dl Negative [facility] Work Phone: Squamous epithelial cells de tection in urine sediment by light microscopyon 08-13-2021 Epithelial cells.squamous LM Ql (Urine sed) 0-5 SEEN /hpf [facility] Work Phone: Urine blood detectionon 03- RBC Ql (U) 250 /ul Negative [facility] Work Phone: RBC Ql (U) 0 SEEN /hpf [facility] Work Phone: Urine clarityon 08-13-2021 Clarity (U) Clear Clear [facility] Work Phone: Urine color determinationon 08-13-2021 Color (U) Yellow Yellow [facility] Work Phone: Urine glucose detectionon Glucose Ql (U) Normal mg/dl Normal [facility] Work Phone: Urine leukocyte esterase det ection by dipstickon 08-13-2021 Leukocyte esterase Test strip Ql (U) 500 /ul Negative [facility] Work Phone: Urine pHon 08-13-2021 pH (U) 8.0 [pH] [facility] Work Phone: Urine sediment bacteria coun t by microscopy (number/high power field)on 08-13-2021 Bacteria LM.HPF (Urine sed) [#/Area] 4 /[HPF] None Seen [facility] Work Phone: Urine specific gravity measu rementon 08-13-2021 Specific gravity (U) [Rel density] 1.010 [facility] Work Phone: Urobilinogen Auto test strip Ql (U)on 08-13-2021 Urobilinogen Ql (U) Normal mg/dl Normal [facility] Work Phone: Culture, urineon 08-12-2021 Bacteria identified Cx Nom (U) Proteus mirabilis [facility] Work Phone: Bacteria identified Cx Nom (U) Vancomycin Resist. E. faecalis [facility] Work Phone: LABORATORYOrdered By: SYSTEM SYSTEM on 07-28-2021 Basophils (Bld) [#/Vol] 0.00 103/mcL Invalid Interpretation Code 0.00 - 0.27 10^3/mcL Remisol SS Basophils/100 WBC (Bld) 0.2 % Invalid Interpretation Code 0.0 - 2.5 % AH Remisol SS Eosinophils (Bld) [#/Vol] 0.10 103/mcL Invalid Interpretation Code 0.00 - 0.65 10^3/mcL Remisol SS Eosinophils/100 WBC (Bld) 0.9 % Invalid Interpretation Code 0.0 - 6.0 % AH Remisol SS Erythrocyte distribution width (RBC) [Ratio] 16.5 % Invalid Interpretation Code 11.5 - 15.5 % AH Remisol SS Hematocrit (Bld) [Volume fraction] 40.9 % Invalid Interpretation Code 34.0 - 46.0 % AH Remisol SS Hemoglobin (Bld) [Mass/Vol] 13.1 G/dL Invalid Interpretation Code 12.0 - 16.0 G/dL AH Remisol SS Lymphocytes (Bld) [#/Vol] 3.40 103/mcL Invalid Interpretation Code 0.90 - 4.32 10^3/mcL AH Remisol SS Lymphocytes/100 WBC (Bld) 26.2 % Invalid Interpretation Code 20.0 - 40.0 % AH Remisol SS MCH (RBC) [Entitic mass] 27.4 pg Invalid Interpretation Code 27.0 - 33.0 pg AH Remisol SS MCHC (RBC) [Mass/Vol] 32.1 G/dL Invalid Interpretation Code 32.0 - 36.0 G/dL AH Remisol SS MCV (RBC) [Entitic vol] 85.3 fL Invalid Interpretation Code 80.0 - 99.0 fL AH Remisol SS Monocytes (Bld) [#/Vol] 0.80 103/mcL Invalid Interpretation Code 0.09 - 1.40 10^3/mcL AH Remisol SS Monocytes/100 WBC (Bld) 6.3 % Invalid Interpretation Code 2.0 - 13.0 % AH Remisol SS Neutrophils (Bld) [#/Vol] 8.60 103/mcL Invalid Interpretation Code 2.25 - 8.10 10^3/mcL AH Remisol SS Neutrophils/100 WBC (Bld) 66.4 % Invalid Interpretation Code 50.0 - 75.0 % AH Remisol SS Platelet mean volume (Bld) [Entitic vol] 7.5 fL Invalid Interpretation Code 6.6 - 10.5 fL AH Remisol SS Platelets (Bld) [#/Vol] 320 103/mcL Invalid Interpretation Code 150 - 450 10^3/mcL Remisol SS RBC (Bld) [#/Vol] 4.80 106/mcL Invalid Interpretation Code 4.10 - 5.30 10^6/mcL AH Remisol SS WBC (Bld) [#/Vol] 12.90 103/mcL Invalid Interpretation Code 4.50 - 10.80 10^3/mcL Remisol SS Basophil percentageon 2021 Chloride [Moles/Vol] 107 mmol/L 98-107 [facility] Work Phone: Glucose [Mass/Vol] 87 mg/dL 74-106 [facility] Work Phone: Comment on above: Please note revised GLUCOSE reference range effective 2017. Potassium [Moles/Vol] 4.1 mmol/L 3.5-5.1 [facility] Work Phone: Sodium [Moles/Vol] 141 mmol/L 136-145 [facility] Work Phone: WBC (Bld) [#/Vol] 8.3 10*3/uL 4.4-11.0 [facility] Work Phone: Blood erythrocytes count (nu mber/volume)on 06-16-2021 RBC (Bld) [#/Vol] 4.22 10*6/uL 4.2-5.4 [facility] Work Phone: Blood hemoglobin measurement (mass/volume)on 06-16-2021 Hemoglobin (Bld) [Mass/Vol] 11.2 g/dL 12.0-15.0 [facility] Work Phone: [phone] Blood platelet mean volumeon 06-16-2021 Platelet mean volume (Bld) [Entitic vol] 9.3 fL 6.2-12.0 [facility] Work Phone: [phone] Determination of erythrocyte mean corpuscular volume (MCV)on 06-16-2021 MCV (RBC) [Entitic vol] 88.6 fL 81-99 [facility] Work Phone: [phone] Hematocrit Auto (Bld) [Volum e fraction]on 06-16-2021 Hematocrit (Bld) [Volume fraction] 37.4 % 37-47 [facility] Work Phone: [phone] Laboratory - Chemistry and C hemistry - challengeon 06-16-2021 CO2 [Moles/Vol] 30.0 mmol/L 21.0-32.0 [facility] Work Phone: [phone] Urea nitrogen/Creatinine [Mass ratio] 21.1 mg/mg 10-20 [facility] Work Phone: [phone] Laboratory - Hematology and Cell countson 06-16-2021 Erythrocyte distribution width (RBC) [Entitic vol] 48.0 fL 35.1-43.9 [facility] Work Phone: [phone] Erythrocyte distribution width (RBC) [Ratio] 15.1 % 11.6-14.6 [facility] Work Phone: [phone] MCH (RBC) [Entitic mass] 26.5 pg 27.0-32.0 [facility] Work Phone: [phone] MCHC Auto (RBC) [Mass/Vol]on 06-16-2021 MCHC (RBC) [Mass/Vol] 29.9 g/dL 32-36 [facility] Work [facility]: [phone] No Panel Informationon 06-16 Estimated GFR (MDRD) Amer 181 mL/min >60 [facility] Work Phone: [phone] Comment on above: GFR Calc Estimated GFR (MDRD) Non-Af Amer 149 mL/min >60 [facility] Work Phone: [phone] Comment on above: Non- GFR Calc Platelets bldon 06-16-2021 Platelets (Bld) [#/Vol] 353 10*3/uL 150-450 [facility] Work Phone: Serum or plasma calcium miguel angel urement (mass/volume)on 06-16-2021 Calcium [Mass/Vol] 8.7 mg/dL 8.5-10.1 [facility] Work Phone: Serum or plasma creatinine m easurement (mass/volume)on 06-16-2021 Creatinine [Mass/Vol] 0.47 mg/dL 0.55-1.02 [facility] Work Phone: Comment on above: The validity of the calculated GFR & GFRAA in patients over 70 years has not been determined. Clinical correlation is essential. Serum or plasma urea nitroge n measurement (mass/volume)on 06-16-2021 Urea nitrogen [Mass/Vol] 10 mg/dL 7-18 [facility] Work Phone: Thin prep Papanicolaou smear with manual screeningon 06-16-2021 Thin prep Papanicolaou smear with manual screening 4 5-15 [facility] Work Phone: Absolute lymphocyte counton 05-27-2021 Lymphocytes Auto (Unsp spec) [#/Vol] 2.72 10*3/uL 0.83-4.51 [facility] Work Phone: Basophil percentageon 2020 Basophil percentage >100 SEEN /hpf [facility] Work Phone: Chloride [Moles/Vol] 102 mmol/L 98-107 [facility] Work Phone: Eosinophils/100 WBC (Bld) 2.3 % 0-5 [facility] Work Phone: Glucose [Mass/Vol] 125 mg/dL 74-106 [facility] Work Phone: Comment on above: Fasting Glucose resu lt from 100 to 125 mg/dL suggests IMPAIRED HOMEOSTASIS per A.D.A. criteria.Please note revised GLUCOSE reference range effective 2017. Neutrophils (Bld) [#/Vol] 6.7 10*3/uL 2.0-7.7 [facility] Work Phone: [phone] Potassium [Moles/Vol] 3.3 mmol/L 3.5-5.1 [facility] Work Phone: [phone] Sodium [Moles/Vol] 139 mmol/L 136-145 [facility] Work Phone: [phone] WBC (Bld) [#/Vol] 10.5 10*3/uL 4.4-11.0 [facility] Work Phone: [phone] Bilirubin Test strip Ql (U)o n 05-27-2021 Bilirubin Ql (U) 3 mg/dL Negative [facility] Work Phone: [phone] Comment on above: COLOR OF URINE MAY A FFECT DIPSTICK RESULTS. Blood erythrocytes count (nu mber/volume)on 05-27-2021 RBC (Bld) [#/Vol] 4.95 10*6/uL 4.2-5.4 [facility] Work Phone: [phone] Blood hemoglobin measurement (mass/volume)on 05-27-2021 Hemoglobin (Bld) [Mass/Vol] 13.2 g/dL 12.0-15.0 [facility] Work Phone: Blood lymphocytes/100 leukoc yteson 05-27-2021 Lymphocytes/100 WBC (Bld) 26.0 % 19-41 [facility] Work Phone: [phone] Blood monocytes/100 leukocyt eson 05-27-2021 Monocytes/100 WBC (Bld) 6.7 % 0-10 [facility] Work Phone: [phone] Blood platelet mean volumeon 05-27-2021 Platelet mean volume (Bld) [Entitic vol] 9.5 fL 6.2-12.0 [facility] Work Phone: [phone] Culture, urineon 05-27-2021 Bacteria identified Cx Nom (U) Enterococcus faecalis [facility] Work Phone: [phone] Determination of erythrocyte mean corpuscular volume (MCV)on 05-27-2021 MCV (RBC) [Entitic vol] 87.5 fL 81-99 [facility] Work Phone: Hematocrit Auto (Bld) [Volum e fraction]on 05-27-2021 Hematocrit (Bld) [Volume fraction] 43.3 % 37-47 [facility] Work Phone: Ketones Test strip Ql (U)on 05-27-2021 Ketones Ql (U) 5 mg/dl Negative [facility] Work Phone: [phone] Laboratory - Chemistry and C hemistry - challengeon 05-27-2021 CO2 [Moles/Vol] 26.0 mmol/L 21.0-32.0 [facility] Work Phone: [phone] Urea nitrogen/Creatinine [Mass ratio] 31.3 mg/mg 10-20 [facility] Work Phone: Laboratory - Hematology and Cell countson 05-27-2021 Basophils/100 WBC (Unsp spec) 0.5 % 0-1 [facility] Work Phone: Erythrocyte distribution width (RBC) [Entitic vol] 47.5 fL 35.1-43.9 [facility] Work Phone: [phone] Erythrocyte distribution width (RBC) [Ratio] 14.7 % 11.6-14.6 [facility] Work Phone: [phone] Immature granulocytes/100 WBC (Bld) 0.300 % 0.0-0.9 [facility] Work Phone: Comment on above: IG% - Immature Granu locytes (promyelocytes, myelocytes and metamyelocytes) > 1% indicates that a LEFT SHIFT is Present. MCH (RBC) [Entitic mass] 26.7 pg 27.0-32.0 [facility] Work Phone: Neutrophils/100 WBC (Bld) 64.2 % 47-70 [facility] Work Phone: Nucleated RBC/100 WBC (Bld) [Ratio] 0 % 0-5 [facility] Work Phone: MCHC Auto (RBC) [Mass/Vol]on 05-27-2021 MCHC (RBC) [Mass/Vol] 30.5 g/dL 32-36 [facility] Work Phone: Mucus LM Ql (Urine sed)on Mucus Ql (Urine sed) 0 SEEN /hpf [facility] Work Phone: [phone] Nitrite Test strip Ql (U)on 05-27-2021 Nitrite Ql (U) Positive Negative [facility] Work Phone: No Panel Informationon 05-27 Estimated Creatinine Clearance Calc 97.19 ml/min [facility] Work Phone: [phone] Estimated GFR (MDRD) Amer 154 mL/min >60 [facility] Work Phone: Comment on above: GFR Calc Estimated GFR (MDRD) Non-Af Amer 128 mL/min >60 [facility] Work Phone: Comment on above: Non- GFR Calc Platelets bldon 05-27-2021 Platelets (Bld) [#/Vol] 388 10*3/uL 150-450 [facility] Work Phone: Protein Test strip Ql (U)on 05-27-2021 Protein Ql (U) 100 mg/dl Negative [facility] Work Phone: [phone] Serum or plasma calcium miguel angel urement (mass/volume)on 05-27-2021 Calcium [Mass/Vol] 9.2 mg/dL 8.5-10.1 [facility] Work Phone: [phone] Serum or plasma creatinine m easurement (mass/volume)on 05-27-2021 Creatinine [Mass/Vol] 0.54 mg/dL 0.55-1.02 [facility] Work Phone: Comment on above: The validity of the calculated GFR & GFRAA in patients over 70 years has not been determined. Clinical correlation is essential. Serum or plasma urea nitroge n measurement (mass/volume)on 05-27-2021 Urea nitrogen [Mass/Vol] 17 mg/dL 7-18 [facility] Work Phone: Squamous epithelial cells de tection in urine sediment by light microscopyon 05-27-2021 Epithelial cells.squamous LM Ql (Urine sed) 5-10 SEEN /hpf [facility] Work Phone: Thin prep Papanicolaou smear with manual screeningon 05-27-2021 Thin prep Papanicolaou smear with manual screening 11 5-15 [facility] Work Phone: Urine blood detectionon 05-14 RBC Ql (U) 250 /ul Negative [facility] Work Phone: RBC Ql (U) 50-100 SEEN /hpf [facility] Work Phone: [phone] Urine clarityon 05-27-2021 Clarity (U) Cloudy Clear [facility] Work Phone: Urine color determinationon 05-27-2021 Color (U) Latonya Yellow [facility] Work Phone: Urine glucose detectionon Glucose Ql (U) Normal mg/dl Normal [facility] Work Phone: Urine leukocyte esterase det ection by dipstickon 05-27-2021 Leukocyte esterase Test strip Ql (U) 500 /ul Negative [facility] Work Phone: Urine pHon 05-27-2021 pH (U) 6.5 [pH] [facility] Work Phone: Urine sediment bacteria coun t by microscopy (number/high power field)on 05-27-2021 Bacteria LM.HPF (Urine sed) [#/Area] 2 /[HPF] None Seen [facility] Work Phone: Urine specific gravity measu rementon 05-27-2021 Specific gravity (U) [Rel density] 1.015 [facility] Work Phone: Urobilinogen Auto test strip Ql (U)on 05-27-2021 Urobilinogen Ql (U) 8 mg/dl Normal [facility] Work Phone: Basophil percentageon 2020 Basophil percentage 50-100 SEEN /hpf [facility] Work Phone: Bilirubin Test strip Ql (U)o n 05-26-2021 Bilirubin Ql (U) 6 mg/dL Negative [facility] Work Phone: Comment on above: COLOR OF URINE MAY A FFECT DIPSTICK RESULTS. Culture, urineon 05-26-2021 Bacteria identified Cx Nom (U) Enterococcus faecalis [facility] Work Phone: Ketones Test strip Ql (U)on 05-26-2021 Ketones Ql (U) Negative Negative [facility] Work Phone: Mucus LM Ql (Urine sed)on Mucus Ql (Urine sed) 0 SEEN /hpf [facility] Work Phone: Nitrite Test strip Ql (U)on 05-26-2021 Nitrite Ql (U) Positive Negative [facility] Work Phone: [phone] Protein Test strip Ql (U)on 05-26-2021 Protein Ql (U) 100 mg/dl Negative [facility] Work Phone: Squamous epithelial cells de tection in urine sediment by light microscopyon 05-26-2021 Epithelial cells.squamous LM Ql (Urine sed) 0-5 SEEN /hpf [facility] Work Phone: Urine blood detectionon 05-14 RBC Ql (U) 250 /ul Negative [facility] Work Phone: RBC Ql (U) 5-10 SEEN /hpf [facility] Work Phone: Urine clarityon 05-26-2021 Clarity (U) Sl. Cloudy Clear [facility] Work Phone: Urine color determinationon 05-26-2021 Color (U) Yellow Yellow [facility] Work Phone: Urine glucose detectionon Glucose Ql (U) Normal mg/dl Normal [facility] Work Phone: Urine leukocyte esterase det ection by dipstickon 05-26-2021 Leukocyte esterase Test strip Ql (U) 500 /ul Negative [facility] Work Phone: Urine pHon 05-26-2021 pH (U) 7.0 [pH] [facility] Work Phone: Urine sediment bacteria coun t by microscopy (number/high power field)on 05-26-2021 Bacteria LM.HPF (Urine sed) [#/Area] 1 /[HPF] None Seen [facility] Work Phone: Urine specific gravity measu rementon 05-26-2021 Specific gravity (U) [Rel density] 1.010 [facility] Work Phone: Urobilinogen Auto test strip Ql (U)on 05-26-2021 Urobilinogen Ql (U) 12 mg/dl Normal [facility] Work Phone: Culture, urine Bacteria identified Cx Nom (U) Proteus mirabilis [facility] Work Phone: Bacteria identified Cx Nom (U) Morganella morganii sp sibonii [facility] Work Phone: Influenza virus A and B and SARS-CoV-2 (COVID-19) Ag panel - Upper respiratory specim SARS-CoV-2 (COVID-19) RNA NBA+probe Ql (Resp) [facility] Work Phone: Vital Signs Date Time Vital Sign Value Performing Clinician Faci lity 07-03-2024 13:03-0500 Body temperature 97.5 [degF] Dr. Lavon Vicente MD Work Phone: [facility] 07-03-2024 13:03-0500 Diastolic blood pressure 77 mm[Hg] Dr. Lavon Vicente MD Work Phone: [facility] 07-03-2024 13:03-0500 Heart rate 93 /min Dr. Lavon Vicente MD Work Phone: [facility] 07-03-2024 13:03-0500 Inhaled oxygen flow rate 4 L/min Dr. Lavon Vicente MD Work Phone: [facility] 07-03-2024 13:03-0500 Respiratory rate 20 /min Dr. Lavon Vicente MD Work Phone: [facility] 07-03-2024 13:03-0500 SaO2% (BldA) [Mass fraction] 96 % Dr. Lavon Vicente MD Work Phone: [facility] 07-03-2024 13:03-0500 Systolic blood pressure 103 mm[Hg] Dr. Lavon Vicente MD Work Phone: [facility] 07-03-2024 11:20-0500 Body height 154.[address] Lavon Vicente MD Work Phone: [facility] 07-03-2024 11:20-0500 Body mass index (BMI) [Ratio] 47.2 kg/m2 Dr. Lavon Vicente MD Work Phone: [facility] 07-03-2024 11:20-0500 Body weight 113.[address] Lavon Vicente MD Work Phone: [facility] 03-01-2024 15:11-0400 Body temperature 98.24 [degF] DR CHERIE RENEE MD [facility] 03-01-2024 15:11-0400 Diastolic Blood Pressure Non-Invasive 91 mm[Hg] DR CHERIE RENEE MD [facility] 03-01-2024 15:11-0400 Heart rate 97 /min DR CHERIE RENEE MD [facility] 03-01-2024 15:11-0400 Respiratory rate 18 /min DR CHERIE RENEE MD [facility] 03-01-2024 15:11-0400 Systolic Blood Pressure Non-Invasive 135 mm[Hg] DR CHERIE RENEE MD [facility] 03-01-2024 13:40-0400 Body temperature 97.52 [degF] DR CHERIE RENEE MD [facility] 03-01-2024 13:40-0400 Diastolic Blood Pressure Non-Invasive 96 mm[Hg] DR CHERIE RENEE MD [facility] 03-01-2024 13:40-0400 Heart rate 75 /min DR CHERIE RENEE MD [facility] 03-01-2024 13:40-0400 Respiratory rate 16 /min DR CHERIE RENEE MD [facility] 03-01-2024 13:40-0400 Systolic Blood Pressure Non-Invasive 133 mm[Hg] DR CHERIE RENEE MD [facility] 03-01-2024 13:13-0400 Body temperature 98.42 [degF] DR CHERIE RENEE MD [facility] 03-01-2024 13:13-0400 Diastolic Blood Pressure Non-Invasive 80 mm[Hg] DR CHREIE RENEE MD [facility] 03-01-2024 13:13-0400 Heart rate 78 /min DR CHERIE RENEE MD [facility] 03-01-2024 13:13-0400 Mean blood pressure 89 mm[Hg] DR CHERIE RENEE MD [facility] 03-01-2024 13:13-0400 Respiratory rate 16 /min DR CHERIE RENEE MD [facility] 03-01-2024 13:13-0400 Systolic Blood Pressure Non-Invasive 118 mm[Hg] DR CHERIE RENEE MD [facility] 03-01-2024 12:58-0400 Mean blood pressure 102 mm[Hg] DR CHERIE RENEE MD [facility] 03-01-2024 12:43-0400 Mean blood pressure 103 mm[Hg] DR CHERIE RENEE MD [facility] 03-01-2024 12:20-0400 Respiratory Rate - Anes 11 br/min DR CHERIE RENEE MD [facility] 03-01-2024 12:15-0400 Body temperature 98.42 [degF] DR CHERIE RENEE MD [facility] 03-01-2024 12:15-0400 Respiratory Rate - Anes 10 br/min DR CHEREI RENEE MD [facility] 03-01-2024 12:10-0400 Body temperature 98.4 [degF] DR CHERIE RENEE MD [facility] 03-01-2024 12:10-0400 Respiratory Rate - Anes 10 br/min DR CHERIE RENEE MD [facility] 03-01-2024 12:05-0400 Body temperature 98.29 [degF] DR CHERIE RENEE MD [facility] 03-01-2024 07:48-0400 Body height 154.[address] CHERIE RENEE MD [facility] 03-01-2024 07:48-0400 Body weight 113.[address] CHERIE RENEE MD [facility] 03-01-2024 07:48-0400 Heart rate 84 /min DR CHERIE RENEE MD [facility] 07-08-2023 05:21-0500 Body temperature 97.6 [degF] Dr. Lavon Vicente Work Phone: [facility] 07-08-2023 05:21-0500 Diastolic blood pressure 79 mm[Hg] Dr. Lavon Vicente Work Phone: [facility] 07-08-2023 05:21-0500 Heart rate 81 /min Dr. Lavon Vicente Work Phone: [facility] 07-08-2023 05:21-0500 Respiratory rate 16 /min Dr. Lavon Vicente Work Phone: [facility] 07-08-2023 05:21-0500 SaO2% (BldA) [Mass fraction] 98 % Dr. Lavon Vicente Work Phone: [facility] 07-08-2023 05:21-0500 Systolic blood pressure 134 mm[Hg] Dr. Lavon Vicente Work Phone: [facility] 07-08-2023 04:19-0500 Body mass index (BMI) [Ratio] 41.1 kg/m2 Dr. Lavon Vicente Work Phone: [facility] 07-08-2023 04:19-0500 Body weight 108.[address] Lavon Vicente Work Phone: [facility] 07-08-2023 00:25-0500 Inhaled oxygen flow rate 3 L/min Dr. Lavon Vicente Work Phone: [facility] 07-06-2023 14:28-0500 Body height 162.[address] Lavon Vicente Work Phone: [facility] 07-02-2023 23:55-0500 Body temperature 98.1 [degF] [facility] 07-02-2023 23:55-0500 Diastolic blood pressure 96 mm[Hg] [facility] 07-02-2023 23:55-0500 Heart rate 118 /min [facility] 07-02-2023 23:55-0500 Inhaled oxygen flow rate 2 L/min [facility] 07-02-2023 23:55-0500 Respiratory rate 23 /min [facility] 07-02-2023 23:55-0500 SaO2% (BldA) [Mass fraction] 94 % [facility] 07-02-2023 23:55-0500 Systolic blood pressure 167 mm[Hg] [facility] 07-02-2023 22:22-0500 Body height 162.56 cm [facility] 07-02-2023 22:22-0500 Body mass index (BMI) [Ratio] 42.7 kg/m2 [facility] 07-02-2023 22:22-0500 Body weight 112.9 kg [facility] 03-17-2023 14:50-0400 Diastolic blood pressure 43 mm[Hg] [facility] 03-17-2023 14:50-0400 Heart rate 90 /min [facility] 03-17-2023 14:50-0400 Inhaled oxygen flow rate 4 L/min [facility] 03-17-2023 14:50-0400 Respiratory rate 16 /min [facility] 03-17-2023 14:50-0400 SaO2% (BldA) [Mass fraction] 94 % [facility] 03-17-2023 14:50-0400 Systolic blood pressure 83 mm[Hg] [facility] 03-17-2023 14:45-0400 Body temperature 98.2 [degF] [facility] 03-17-2023 12:28-0400 Body mass index (BMI) [Ratio] 44.9 kg/m2 [facility] 03-17-2023 12:28-0400 Body weight 111.58 kg [facility] 01-26-2023 23:42-0400 Diastolic blood pressure 77 mm[Hg] Dr. Lavon Vicente Work Phone: [facility] 01-26-2023 23:42-0400 Heart rate 88 /min Dr. Lavon Vicente Work Phone: [facility] 01-26-2023 23:42-0400 Respiratory rate 18 /min Dr. Lavon Vicente Work Phone: [facility] 01-26-2023 23:42-0400 SaO2% (BldA) [Mass fraction] 93 % Dr. Lavon Vicente Work Phone: [facility] 01-26-2023 23:42-0400 Systolic blood pressure 108 mm[Hg] Dr. Lavon Vicente Work Phone: [facility] 01-26-2023 22:05-0400 Body temperature 98 [degF] Dr. Lavon Vicente Work Phone: [facility] 01-26-2023 22:05-0400 Inhaled oxygen flow rate 4 L/min Dr. Lavon Vicente Work Phone: [facility] 01-26-2023 20:06-0400 Body height 154.[address] Lavon Vicente Work Phone: [facility] 01-26-2023 20:06-0400 Body mass index (BMI) [Ratio] 46.9 kg/m2 Dr. Lavon Vicente Work Phone: [facility] 01-26-2023 20:06-0400 Body weight 112.[address] Lavon Vicente Work Phone: [facility] 11-16-2022 14:40-0400 Body temperature 98.5 [degF] Dr. Lavon Vicente Work Phone: [facility] 11-16-2022 14:40-0400 Diastolic blood pressure 69 mm[Hg] Dr. Lavon Vicente Work Phone: [facility] 11-16-2022 14:40-0400 Heart rate 100 /min Dr. Lavon Vicente Work Phone: [phone] [place] [address] 11-16-2022 14:40-0400 Inhaled oxygen flow rate 1 L/min Dr. Lavon Vicente Work Phone: [facility] 11-16-2022 14:40-0400 Respiratory rate 18 /min Dr. Lavon Vicente Work Phone: 4(606)354-288131 [place] [address] 11-16-2022 14:40-0400 SaO2% (BldA) [Mass fraction] 97 % Dr. Lavon Vicente Work Phone: [facility] 11-16-2022 14:40-0400 Systolic blood pressure 113 mm[Hg] Dr. Lavon Vicente Work Phone: [facility] 11-15-2022 10:27-0400 Body height 154.[address] Lavon Vicente Work Phone: 3(488)[phone] [place] [address] 11-15-2022 10:27-0400 Body weight 110.[address] Lavon Vicente Work Phone: [facility] 11-15-2022 00:51-0400 Body mass index (BMI) [Ratio] 46.1 kg/m2 Dr. Lavon Vicente Work Phone: [facility] 11-14-2022 23:48-0400 Body temperature 99.1 [degF] Dr. Lavon Vicente Work Phone: [facility] 11-14-2022 23:48-0400 Diastolic blood pressure 91 mm[Hg] Dr. Lavon Vicente Work Phone: [facility] 11-14-2022 23:48-0400 Heart rate 97 /min Dr. Lavon Vicente Work Phone: [facility] 11-14-2022 23:48-0400 Inhaled oxygen flow rate 4 L/min Dr. Lavon Vicente Work Phone: [facility] 11-14-2022 23:48-0400 Respiratory rate 20 /min Dr. Lavon Vicente Work Phone: [facility] 11-14-2022 23:48-0400 SaO2% (BldA) [Mass fraction] 97 % Dr. Lavon Vicente Work Phone: [facility] 11-14-2022 23:48-0400 Systolic blood pressure 137 mm[Hg] Dr. Lavon Vicente Work Phone: [facility] 11-14-2022 19:40-0400 Body height 154.[address] Lavon Vicente Work Phone: [facility] 11-14-2022 19:40-0400 Body mass index (BMI) [Ratio] 37.1 kg/m2 Dr. Lavon Vicente Work Phone: [facility] 11-14-2022 19:40-0400 Body weight 89.[address] Lavon Vicente Work Phone: [facility] 11-09-2022 19:16-0400 Heart rate 79 /min Dr. Lavon Vicente Work Phone: [facility] 11-09-2022 19:16-0400 Respiratory rate 16 /min Dr. Lavon Vicente Work Phone: [facility] 11-09-2022 18:49-0400 Diastolic blood pressure 99 mm[Hg] Dr. Lavon Vicente Work Phone: [facility] 11-09-2022 18:49-0400 SaO2% (BldA) [Mass fraction] 97 % Dr. Lavon Vicente Work Phone: [facility] 11-09-2022 18:49-0400 Systolic blood pressure 149 mm[Hg] Dr. Lavon Vicente Work Phone: [facility] 11-09-2022 17:13-0400 Body temperature 97.5 [degF] Dr. Lavon Vicente Work Phone: [facility] 11-09-2022 14:41-0400 Body height 154.[address] Lavon Vicente Work Phone: [facility] 11-09-2022 14:41-0400 Body mass index (BMI) [Ratio] 48.1 kg/m2 Dr. Lavon Vicente Work Phone: [facility] 11-09-2022 14:41-0400 Body weight 115.[address] Lavon Vicente Work Phone: [facility] 11-06-2022 13:13-0400 Diastolic blood pressure 85 mm[Hg] Dr. Lavon Vicente Work Phone: [facility] 11-06-2022 13:13-0400 Heart rate 76 /min Dr. Lavon Vicente Work Phone: [facility] 11-06-2022 13:13-0400 Inhaled oxygen flow rate 2 L/min Dr. Lavon Vicente Work Phone: [facility] 11-06-2022 13:13-0400 Respiratory rate 18 /min Dr. Lavon Vicente Work Phone: [facility] 11-06-2022 13:13-0400 SaO2% (BldA) [Mass fraction] 99 % Dr. Lavon Vicente Work Phone: [facility] 11-06-2022 13:13-0400 Systolic blood pressure 117 mm[Hg] Dr. Lavon Vicente Work Phone: [facility] 11-06-2022 09:05-0400 Body mass index (BMI) [Ratio] 52.9 kg/m2 Dr. Lavon Vicente Work Phone: [facility] 11-06-2022 09:05-0400 Body temperature 96.8 [degF] Dr. Lavon Vicente Work Phone: [facility] 11-06-2022 09:05-0400 Body weight 127.[address] Lavon Vicente Work Phone: [facility] 10-28-2022 15:20-0400 Body temperature 98 [degF] Dr. Lavon Vicente Work Phone: [facility] 10-28-2022 15:20-0400 Diastolic blood pressure 56 mm[Hg] Dr. Lavon Vicente Work Phone: [facility] 10-28-2022 15:20-0400 Heart rate 86 /min Dr. Lavon Vicente Work Phone: [facility] 10-28-2022 15:20-0400 Inhaled oxygen flow rate 4 L/min Dr. Lavon Vicente Work Phone: [facility] 10-28-2022 15:20-0400 Respiratory rate 16 /min Dr. Lavon Vicente Work Phone: [facility] 10-28-2022 15:20-0400 SaO2% (BldA) [Mass fraction] 96 % Dr. Lavon Vicente Work Phone: [facility] 10-28-2022 15:20-0400 Systolic blood pressure 86 mm[Hg] Dr. Lavon Vicente Work Phone: [facility] 10-28-2022 13:56-0400 Body height 154.[address] Lavon Vicente Work Phone: [facility] 10-28-2022 13:56-0400 Body mass index (BMI) [Ratio] 49.7 kg/m2 Dr. Lavon Vicente Work Phone: [facility] 10-28-2022 13:56-0400 Body weight 119.[address] Lavon Vicente Work Phone: [facility] 10-06-2022 11:29-0400 Body height 160 cm Rosa Maria Martinez PA-C Work Phone: [facility] 10-06-2022 11:29-0400 Body temperature 97 [degF] Rosa Maria Martinez PA-C Work Phone: [facility] 10-06-2022 11:29-0400 Body weight 104.33 kg Rosa Maria Martinez PA-C Work Phone: [facility] 10-06-2022 11:29-0400 Diastolic blood pressure 70 mm[Hg] Rosa Maria Martinez PA-C Work Phone: [facility] 10-06-2022 11:29-0400 Heart rate 86 /min Rosa Maria Martinez PA-C Work Phone: [facility] 10-06-2022 11:29-0400 Respiratory rate 16 /min Rosa Maria Martinez PA-C Work Phone: [facility] 10-06-2022 11:29-0400 SaO2% (BldA) [Mass fraction] 100 % Rosa Maria Martinez PA-C Work Phone: [facility] 10-06-2022 11:29-0400 Systolic blood pressure 110 mm[Hg] Rosa Maria Martinez PA-C Work Phone: [facility] 09-14-2022 15:00-0400 Inhaled oxygen flow rate 2 L/min Dr. Lavon Vicente Work Phone: [facility] 09-14-2022 14:07-0400 Body temperature 97.7 [degF] Dr. Lavon Vicente Work Phone: [facility] 09-14-2022 14:07-0400 Diastolic blood pressure 64 mm[Hg] Dr. Lavon Vicente Work Phone: [facility] 09-14-2022 14:07-0400 Heart rate 97 /min Dr. Lavon Vicente Work Phone: [facility] 09-14-2022 14:07-0400 Respiratory rate 20 /min Dr. Lavon Vicente Work Phone: [facility] 09-14-2022 14:07-0400 SaO2% (BldA) [Mass fraction] 97 % Dr. Lavon Vicente Work Phone: [facility] 09-14-2022 14:07-0400 Systolic blood pressure 110 mm[Hg] Dr. Lavon Vicente Work Phone: [facility] 09-14-2022 06:00-0400 Body mass index (BMI) [Ratio] 50.7 kg/m2 Dr. Lavon Vicente Work Phone: [facility] 09-14-2022 06:00-0400 Body weight 121.[address] Lavon Vicente Work Phone: [facility] 09-12-2022 16:22-0400 Body height 154.[address] Lavon Vicente Work Phone: [facility] 09-12-2022 15:23-0400 Body temperature 98 [degF] Dr. Lavon Vicente Work Phone: [facility] 09-12-2022 15:23-0400 Diastolic blood pressure 84 mm[Hg] Dr. Lavon Vicente Work Phone: [facility] 09-12-2022 15:23-0400 Heart rate 102 /min Dr. Lavon Vicente Work Phone: [facility] 09-12-2022 15:23-0400 Inhaled oxygen flow rate 6 L/min Dr. Lavon Vicente Work Phone: [facility] 09-12-2022 15:23-0400 Respiratory rate 18 /min Dr. Lavon Vicente Work Phone: [facility] 09-12-2022 15:23-0400 SaO2% (BldA) [Mass fraction] 95 % Dr. Lavon Vicente Work Phone: [facility] 09-12-2022 15:23-0400 Systolic blood pressure 127 mm[Hg] Dr. Lavon Vicente Work Phone: [facility] 09-12-2022 09:06-0400 Body height 154.[address] Lavon Vicente Work Phone: [facility] 09-12-2022 09:06-0400 Body mass index (BMI) [Ratio] 50.5 kg/m2 Dr. Lavon Vicente Work Phone: [facility] 09-12-2022 09:06-0400 Body weight 121.[address] Lavon Vicente Work Phone: [facility] 07-24-2022 22:33-0500 Diastolic blood pressure 54 mm[Hg] Dr. Lavon Vicente Work Phone: [facility] 07-24-2022 22:33-0500 SaO2% (BldA) [Mass fraction] 93 % Dr. Lavon Vicente Work Phone: [facility] 07-24-2022 22:33-0500 Systolic blood pressure 104 mm[Hg] Dr. Lavon Vicente Work Phone: [facility] 07-24-2022 22:11-0500 Heart rate 101 /min Dr. Lavon Vicente Work Phone: [facility] 07-24-2022 22:11-0500 Respiratory rate 20 /min Dr. Lavon Vicente Work Phone: [facility] 07-24-2022 21:57-0500 Body temperature 98 [degF] Dr. Lavon Vicente Work Phone: [facility] 07-24-2022 19:11-0500 Body temperature 98.4 [degF] Dr. Lavon Vicente Work Phone: [facility] 07-24-2022 19:11-0500 Diastolic blood pressure 104 mm[Hg] Dr. Lavon Vicente Work Phone: [facility] 07-24-2022 19:11-0500 Heart rate 107 /min Dr. Lavon Vicente Work Phone: [facility] 07-24-2022 19:11-0500 Inhaled oxygen flow rate 4 L/min Dr. Lavon Vicente Work Phone: [facility] 07-24-2022 19:11-0500 Respiratory rate 18 /min Dr. Lavon Vicente Work Phone: [facility] 07-24-2022 19:11-0500 SaO2% (BldA) [Mass fraction] 97 % Dr. Lavon Vicente Work Phone: 0(607)291-100731 [place] [address] 07-24-2022 19:11-0500 Systolic blood pressure 159 mm[Hg] Dr. Lavon Vicente Work Phone: 2(649)[phone] [place] [address] 07-24-2022 19:06-0500 Body height 152.[address] Lavon Vicente Work Phone: 9(951)074-177936 [place] [address] 07-24-2022 19:06-0500 Body mass index (BMI) [Ratio] 52.3 kg/m2 Dr. Lavon Vicente Work Phone: 3(260)415-940431 [place] [address] 07-24-2022 19:06-0500 Body weight 121.[address] Lavon Vicente Work Phone: 2(408)447-584741 [address] 06-05-2022 09:49-0500 Inhaled oxygen flow rate 4 L/min Dr. Lavon Vicente Work Phone: 4(823)823-916141 [address] 06-05-2022 09:47-0500 Body temperature 98 [degF] Dr. Lavon Vicente Work Phone: 5(153)718-077731 [place] [address] 06-05-2022 09:47-0500 Diastolic blood pressure 69 mm[Hg] Dr. Lavon Vicente Work Phone: 1(322)276-369741 [address] 06-05-2022 09:47-0500 Heart rate 100 /min Dr. Lavon Vicente Work Phone: [facility] 06-05-2022 09:47-0500 Respiratory rate 18 /min Dr. Lavon Vicente Work Phone: [facility] 06-05-2022 09:47-0500 SaO2% (BldA) [Mass fraction] 94 % Dr. Lavon Vicente Work Phone: [facility] 06-05-2022 09:47-0500 Systolic blood pressure 116 mm[Hg] Dr. Lavon Vicente Work Phone: [facility] 06-05-2022 04:34-0500 Body weight 121.[address] Lavon Vicente Work Phone: [facility] 06-03-2022 15:20-0500 Body height 152.[address] Lavon Vicente Work Phone: [facility] Work Phone: 06-03-2022 08:58-0500 Body mass index (BMI) [Ratio] 49.9 kg/m2 Dr. Lavon Vicente Work Phone: [facility] 06-03-2022 07:52-0500 Body temperature 98.3 [degF] [facility] Work Phone: 06-03-2022 07:52-0500 Diastolic blood pressure 108 mm[Hg] [facility] Work Phone: 06-03-2022 07:52-0500 Heart rate 63 /min [facility] Work Phone: 06-03-2022 07:52-0500 Inhaled oxygen flow rate 2 L/min [facility] Work Phone: 06-03-2022 07:52-0500 Respiratory rate 20 /min [facility] Work Phone: 06-03-2022 07:52-0500 SaO2% (BldA) [Mass fraction] 94 % [facility] Work Phone: 06-03-2022 07:52-0500 Systolic blood pressure 129 mm[Hg] [facility] Work Phone: 06-03-2022 06:00-0500 Body height 160.02 cm [facility] Work Phone: 06-03-2022 06:00-0500 Body mass index (BMI) [Ratio] 44.4 kg/m2 [facility] Work Phone: 06-03-2022 06:00-0500 Body weight 113.9 kg [facility] Work Phone: 01-09-2022 12:11-0400 Body temperature 98.5 [degF] [facility] Work Phone: 01-09-2022 12:11-0400 Diastolic blood pressure 85 mm[Hg] [facility] Work Phone: 01-09-2022 12:11-0400 Heart rate 102 /min [facility] Work Phone: 01-09-2022 12:11-0400 Inhaled oxygen flow rate 2 L/min [facility] Work Phone: 01-09-2022 12:11-0400 Respiratory rate 16 /min [facility] Work Phone: 01-09-2022 12:11-0400 SaO2% (BldA) [Mass fraction] 93 % [facility] Work Phone: 01-09-2022 12:11-0400 Systolic blood pressure 125 mm[Hg] [facility] Work Phone: 01-09-2022 09:51-0400 Body height 154.94 cm [facility] Work Phone: 01-09-2022 09:51-0400 Body mass index (BMI) [Ratio] 45.3 kg/m2 [facility] Work Phone: 01-09-2022 09:51-0400 Body weight 108.86 kg [facility] Work Phone: 09-12-2021 12:00-0400 Body temperature 99.4 [degF] [facility] Work Phone: 09-12-2021 12:00-0400 Diastolic blood pressure 68 mm[Hg] [facility] Work Phone: 09-12-2021 12:00-0400 Heart rate 85 /min [facility] Work Phone: 09-12-2021 12:00-0400 Respiratory rate 16 /min [facility] Work Phone: 09-12-2021 12:00-0400 SaO2% (BldA) [Mass fraction] 92 % [facility] Work Phone: 09-12-2021 12:00-0400 Systolic blood pressure 117 mm[Hg] [facility] Work Phone: 09-12-2021 11:40-0400 Inhaled oxygen flow rate 4 L/min [facility] Work Phone: 09-12-2021 08:27-0400 Body height 154.94 cm [facility] Work Phone: 09-12-2021 08:27-0400 Body mass index (BMI) [Ratio] 43.4 kg/m2 [facility] Work Phone: 09-12-2021 08:27-0400 Body weight 104.32 kg [facility] Work Phone: 07-28-2021 17:53-0500 Body temperature 97.34 [degF] DR MAGYD VOGT MD [facility] 07-28-2021 17:53-0500 Diastolic blood pressure 90 mm[Hg] DR MAGDY VOGT MD [facility] 07-28-2021 17:53-0500 Heart rate 85 /min DR MAGDY VOGT MD [facility] 07-28-2021 17:53-0500 Mean blood pressure 109 mm[Hg] DR MAGDY VOGT MD [facility] 07-28-2021 17:53-0500 Reason For Taking VItal Signs DR MAGDY VOGT MD [facility] 07-28-2021 17:53-0500 Respiratory rate 16 /min DR MAGDY VOGT MD [facility] 07-28-2021 17:53-0500 Systolic blood pressure 146 mm[Hg] DR MAGDY VOGT MD [facility] 07-28-2021 16:09-0500 Body temperature 97.16 [degF] DR MAGDY VOGT MD [facility] 07-28-2021 16:09-0500 Diastolic blood pressure 91 mm[Hg] DR MAGDY VOGT MD [facility] 07-28-2021 16:09-0500 Heart rate 81 /min DR MAGDY VOGT MD [facility] 07-28-2021 16:09-0500 Mean blood pressure 110 mm[Hg] DR MAGDY VOGT MD [facility] 07-28-2021 16:09-0500 Reason For Taking VItal Signs DR MAGDY VOGT MD [facility] 07-28-2021 16:09-0500 Respiratory rate 16 /min DR MAGDY VOGT MD [facility] 07-28-2021 16:09-0500 Systolic blood pressure 148 mm[Hg] DR MAGDY VOGT MD [facility] 07-28-2021 15:56-0500 Body temperature 98.06 [degF] DR MAGDY VOGT MD [facility] 07-28-2021 15:56-0500 Diastolic Blood Pressure NBP [address] MAGDY VOGT MD [facility] 07-28-2021 15:56-0500 Heart rate 85 /min DR MAGDY VOGT MD [facility] 07-28-2021 15:56-0500 Mean blood pressure 101 mm[Hg] DR MAGDY VOGT MD [facility] 07-28-2021 15:56-0500 Respiratory rate 16 /min DR MAGDY VOGT MD [facility] 07-28-2021 15:56-0500 Systolic Blood Pressure NBP [address] MAGDY VOGT MD [facility] 07-28-2021 15:40-0500 Diastolic Blood Pressure NBP [address] MAGDY VOGT MD [facility] 07-28-2021 15:40-0500 Heart rate 87 /min DR MAGDY VOGT MD [facility] 07-28-2021 15:40-0500 Mean blood pressure 108 mm[Hg] DR MAGDY VOGT MD [facility] 07-28-2021 15:40-0500 Systolic Blood Pressure NBP [address] MAGDY VOGT MD [facility] 07-28-2021 15:24-0500 Diastolic Blood Pressure NBP [address] MAGDY VOGT MD [facility] 07-28-2021 15:24-0500 Heart rate 91 /min DR MAGDY VOGT MD [facility] 07-28-2021 15:24-0500 Mean blood pressure 103 mm[Hg] DR MAGDY VOGT MD [facility] 07-28-2021 15:24-0500 Systolic Blood Pressure NBP [address] MAGDY VOGT MD [facility] 07-28-2021 10:28-0500 Body height [address] MAGDY VOGT MD [facility] 07-28-2021 10:28-0500 Diastolic blood pressure 93 mm[Hg] DR MAGDY VOGT MD [facility] 07-28-2021 10:28-0500 Heart rate 79 /min DR MAGDY VOGT MD [facility] 07-28-2021 10:28-0500 Mean blood pressure 113 mm[Hg] DR MAGDY VOGT MD [facility] 07-28-2021 10:28-0500 Systolic blood pressure 153 mm[Hg] DR MAGDY VOGT MD [facility] 07-28-2021 10:23-0500 Body weight 100.[address] MAGDY VOGT MD [facility] 07-21-2021 14:45-0500 Body temperature 97.8 [degF] [facility] Work Phone: 07-21-2021 14:45-0500 Diastolic blood pressure 70 mm[Hg] [facility] Work Phone: 07-21-2021 14:45-0500 Heart rate 78 /min [facility] Work Phone: 07-21-2021 14:45-0500 Respiratory rate 16 /min [facility] Work Phone: 07-21-2021 14:45-0500 SaO2% (BldA) [Mass fraction] 94 % [facility] Work Phone: 07-21-2021 14:45-0500 Systolic blood pressure 105 mm[Hg] [facility] Work Phone: 07-21-2021 13:17-0500 Body mass index (BMI) [Ratio] 41.1 kg/m2 [facility] Work Phone: 07-21-2021 13:17-0500 Body weight 105.23 kg [facility] Work Phone: 05-27-2021 20:43-0500 Diastolic blood pressure 81 mm[Hg] [facility] Work Phone: 05-27-2021 20:43-0500 Heart rate 73 /min [facility] Work Phone: 05-27-2021 20:43-0500 Respiratory rate 18 /min [facility] Work Phone: 05-27-2021 20:43-0500 SaO2% (BldA) [Mass fraction] 92 % [facility] Work Phone: 05-27-2021 20:43-0500 Systolic blood pressure 116 mm[Hg] [facility] Work Phone: 05-27-2021 17:27-0500 Body mass index (BMI) [Ratio] 44.1 kg/m2 [facility] Work Phone: 05-27-2021 17:27-0500 Body temperature 96.8 [degF] [facility] Work Phone: 05-27-2021 17:270500 Body weight 105.99 kg [facility] Work Phone: Encounters Encounter Date Encounter Type Care Provider Facility Start: 12-04-2024 ambulatory Lavon Vicente Facility:[facility] Start: 10-06-2024 End: 10-06-[address] Lavon Vicente MD Work Phone: [facility] Work Phone: Start: 10-06-2024 End: 10-06-[address] Kori Sethi MD [facility] Start: 10-06-2024 End: 10-06-2024 ambulatory Lavon Vicente Facility:[facility] Start: 09-06-2024 End: 09-06-[address] Lavon Vicente MD Work Phone: [facility] Work Phone: Start: 09-06-2024 End: 09-06-2024 Departed Referred Lavon Vicente -[facility] Start: 09-06-2024 End: 09-06-2024 ambulatory Lavon Vicente Facility:[facility] Start: 07-25-2024 ambulatory Kori Pacheco ty:[facility] Start: 07-25-[address] Kori Sethi MD [facility] Start: 07-14-2024 ambulatory Lavon Vicente Facility:[facility] Start: 07-14-[address] Kori Sethi MD [facility] Start: 07-07-2024 End: 07-07-[address] Kori Sethi MD [facility] Start: 07-07-2024 End: 07-07-2024 ambulatory Lavon Vicente Facility:[facility] Start: 07-05-2024 ambulatory Lavon Vicente Facility:[facility] Start: 07-05-[address] Kori Sethi MD [facility] Start: 07-03-2024 End: 07-03-2024 Admission to same day surgery center Dr. Kenia Hammond [facility] Start: 07-03-2024 End: 07-03-2024 ambulatory Lavon Vicente Facility:[facility] Start: 07-03-2024 End: 07-03-[address] Kori Sethi MD -[facility] Start: 07-03-2024 End: 07-03-2024 ambulatory Kori SERRANO Facility:[facility] Start: 06-12-2024 End: 06-12-[address] Kori Setih MD -[facility] Start: 06-12-2024 End: 06-12-2024 ambulatory Kori SERRANO Facility:[facility] Start: 05-25-2024 ambulatory Lavon Vicente Facility:[facility] Start: 05-17-2024 End: 05-17-[address] LAVON VICENTE MD Facility:[facility] Start: 05-17-2024 End: 05-17-2024 Patient encounter procedure ISREAL PAGE APRN-[facility] Start: 04-12-2024 End: 04-12-2024 ambulatory Lavon Vicente Facility:[facility] Start: 03-17-2024 End: 03-17-2024 ambulatory Lavon Vicente Facility:[facility] Start: 03-16-2024 End: 03-16-2024 ambulatory Lavon Vicente Facility:[facility] Start: 03-09-2024 End: 03-09-2024 ambulatory Lavon Vicente Facility:[facility] Start: 03-07-2024 Encounter for preprocedural laboratory examination Lavon Vicente [facility] Start: 03-01-2024 End: 03-01-[address] CHERIE RENEE MD Facility:[facility] Start: 03-01-2024 End: 03-01-[address] CHERIE RENEE MD [facility] Start: 02-24-2024 End: 02-24-2024 ambulatory Lavon Vicente Facility:[facility] Start: 02-17-2024 ambulatory Lavon Vicente Facility:[facility] Start: 02-16-2024 ambulatory Lavon Vicente Facility:[facility] Start: 02-02-2024 End: 02-02-2024 ambulatory 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MATERIAL HANDLING TECHNICIAN Facility:[facility] Start: 01-28-2024 End: 01-28-2024 ambulatory Lavon Vicente Facility:[facility] Start: 01-27-2024 End: 01-27-2024 ambulatory ISREAL Herron CAMILO BOILERMAKING SUPERVISOR-MATERIAL HANDLING TECHNICIAN Facility:[facility] Start: 01-27-2024 End: 01-27-2024 Patient encounter procedure ISREAL Herron CAMILO [employer]ILERMAKING SUPERVISOR-MATERIAL HANDLING TECHNICIAN [facility] Start: 10-21-2023 Dr. Lavon croft Work Phone: [facility] Start: 10-19-2023 End: 10-19-[address] Lavon Vicente Work Phone: [facility] Work Phone: Start: 10-19-2023 End: 10-19-2023 Dr. Lavon Vicente Work Phone: [facility] Work Phone: Start: 10-15-2023 Dr. Lavon Bernstein en Work Phone: [facility] Start: 10-01-2023 Dr. Lavon Bernstein en Work Phone: [facility] Start: 09-07-2023 End: 09-07-[address] Lavon Vicente Work Phone: [facility] Work Phone: Start: 09-07-2023 End: 09-07-2023 Dr. Lavon Vicente Work Phone: [facility] Start: 09-06-2023 End: 09-06-[address] Lavon Vicente Work Phone: [facility] Work Phone: Start: 09-06-2023 End: 09-06-2023 Dr. Lavon Vicente Work Phone: [facility] Start: 08-11-2023 End: 08-11-[address] Lavon Vicente Work Phone: [facility] Work Phone: Start: 08-11-2023 End: 08-11-2023 Dr. Lavon Vicente Work Phone: [facility] Start: 08-04-2023 End: 08-04-2023 ambulatory 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MATERIAL HANDLING TECHNICIAN Facility:[facility] Start: 08-04-2023 End: 08-04-2023 Patient encounter procedure 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MATERIAL HANDLING TECHNICIAN [facility] Start: 07-28-2023 End: 07-28-[address] Lavon Vicente Work Phone: [facility] Work Phone: Start: 07-28-2023 End: 07-28-2023 Dr. Lavon Vicente Work Phone: [facility] Start: 07-14-2023 Dr. Lavon Bernstein en Work Phone: [facility] Start: 07-08-2023 Dr. Lavon Bernstein en Work Phone: [facility] Work Phone: Start: 07-07-2023 Dr. Lavon Bernstein en Work Phone: [facility] Work Phone: Start: 07-06-2023 Dr. Lavon Bernstein en Work Phone: [facility] Work Phone: Start: 07-06-2023 Dr. Lavon Bernstein en Work Phone: [facility] Start: 07-05-2023 Dr. aLvon Bernstein en Work Phone: [facility] Work Phone: Start: 07-04-2023 Dr. Lavon Bernstein en Work Phone: [facility] Work Phone: Start: 07-04-2023 Dr. Lavon Bernstein en Work Phone: [facility] Start: 07-03-2023 Dr. Lavon Bernstein en Work Phone: [facility] Work Phone: Start: 07-03-2023 Dr. [facility] Start: 07-03-2023 End: 07-08-2023 Dr. 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 Lavon Vicente [facility] Start: 03-09-2023 End: 03-09-2023 Departed Referred [facility] Start: 02-26-2023 Dr. Lavon Bernstein en Work Phone: [facility] Start: 02-22-2023 End: 02-22-[address] Lavon Vicente Work Phone: [facility] Work Phone: Start: 02-22-2023 End: 02-22-2023 Dr. Lavon Vicente Work Phone: [facility] Start: 02-02-2023 End: 02-02-[address] Lavon Vicente Work Phone: [facility] Work Phone: Start: 02-02-2023 End: 02-02-2023 Dr. Lavon Vicente Work Phone: [facility] Start: 02-01-2023 End: 02-01-[address] Lavon Vicente Work Phone: [facility] Work Phone: Start: 02-01-2023 End: 02-01-2023 Dr. Lavon Vicente Work Phone: [facility] Start: 01-26-2023 End: 01-27-2023 Emergency department patient visit Dr. Lavon Vicente Work Phone: [facility] Work Phone: Start: 01-26-2023 End: 01-27-2023 Dr. Lavon Vicente Work Phone: [facility] Work Phone: Start: 01-21-2023 End: 01-21-[address] Lavon Vicente Work Phone: [facility] Work Phone: Start: 01-21-2023 End: 01-21-2023 Dr. Lavon Vicente Work Phone: [facility] Start: 11-16-2022 Dr. Lavon Bernstein en Work Phone: [facility] Start: 11-15-2022 End: 11-16-2022 Evaluation and management of inpatient Dr. Lavon Vicente Work Phone: [facility] Work Phone: Start: 11-15-2022 End: 11-16-2022 Dr. Lavon Vicente Work Phone: [facility] 3 Start: 11-11-2022 End: 11-11-[address] Lavon Vicente Work Phone: [facility] Work Phone: Start: 11-11-2022 End: 11-11-2022 Dr. Lavon Vicente Work Phone: [facility] Start: 11-10-2022 Dr. Lavon Bernstein en Work Phone: [facility] Start: 11-09-2022 End: 11-09-2022 Emergency department patient visit Dr. Lavon Vicente Work Phone: [facility] Start: 11-09-2022 End: 11-09-2022 Dr. Lavon Vicente Work Phone: [facility] Start: 11-06-2022 End: 11-06-2022 Emergency department patient visit Dr. Lavon Vicente Work Phone: [facility] Start: 11-06-2022 End: 11-06-2022 Dr. Lavon Vicente Work Phone: [facility] Start: 10-28-2022 End: 10-28-2022 Admission to same day surgery center Dr. Lavon Vicente Work Phone: [facility] Start: 10-28-2022 End: 10-28-[address] Lavon Vicente Work Phone: [facility] Work Phone: Start: 10-28-2022 End: 10-28-2022 Dr. [facility] Vicente [facility] Start: 10-06-2022 End: 10-06-2022 ambulatory LAVON VICENTE Facility:[facility] Start: 10-06-2022 End: 10-06-2022 Patient encounter procedure Rosa Maria Martinez PA-C Work Phone: Urology Comment on above: Bladder stones (Prim jorge Dx); Paraplegia (HCC) Start: 09-18-2022 End: 09-18-[address] Lavon Vicente Work Phone: [facility] Work Phone: Start: 09-18-2022 End: 09-18-[address] Lavon Vicente Work Phone: [facility] Start: 09-18-2022 End: 09-18-2022 Dr. Lavon Vicente Work Phone: [facility] Start: 09-16-[address] Lavon herrera Work Phone: [facility] Start: 09-16-2022 Dr. Lavon Bernstein en Work Phone: [facility] Start: 09-14-2022 Non-patient / Non-visit Dr. Cristi Vicente Work Phone: [facility] Start: 09-14-2022 Dr. Lavon Bernstein en Work Phone: [facility] Start: 09-13-2022 Non-patient / Non-visit Dr. Cristi Vicente Work Phone: [facility] Start: 09-13-2022 Dr. Lavon Bernstein en Work Phone: [facility] Start: 09-12-2022 End: 09-14-2022 Evaluation and management of inpatient Dr. Lavon Vicente [facility] Start: 09-12-2022 End: 09-14-2022 Dr. Lavon Vicente Work Phone: [facility] Start: 07-24-2022 End: 07-24-2022 Emergency department patient visit Dr. Lavon Vicente Work Phone: [facility] Start: 07-24-2022 End: 07-24-2022 Dr. Lavon Vicente Work Phone: [facility] Start: 07-02-2022 End: 07-02-[address] Lavon Vicente Work Phone: [facility] Work Phone: Start: 07-02-2022 End: 07-02-[address] Lavon Vicente Work Phone: [facility] Start: 06-05-2022 Non-patient / Non-visit Dr. Cristi Vicente Work Phone: [facility] Start: 06-04-2022 Non-patient / Non-visit Dr. Cristi Vicente Work Phone: [facility] Start: 06-03-2022 Non-patient / Non-visit Dr. Cristi Vicente Work Phone: [facility] Start: 06-03-2022 End: 06-05-2022 Evaluation and management of inpatient [facility] Start: 03-27-2022 End: 03-27-2022 ambulatory [facility] Work Phone: Start: 03-27-2022 End: 03-27-2022 Departed Referred [place] [id number] Start: 03-27-2022 Registered Referred [place] [id number] Start: 03-18-2022 End: 03-18-2022 ambulatory [facility] Work Phone: Start: 03-18-2022 End: 03-18-2022 Departed Referred [place] [id number] Start: 03-18-2022 Registered Referred [place] [id number] Start: 02-27-2022 End: 02-27-2022 ambulatory [facility] Work Phone: Start: 02-27-2022 End: 02-27-2022 Departed Referred [place] [id number] Start: 02-27-2022 Registered Referred [place] [id number] Start: 02-19-2022 End: 02-19-2022 ambulatory [facility] Work Phone: Start: 02-19-2022 End: 02-19-2022 Departed Referred [place] [id number] Start: 01-13-2022 End: 01-13-2022 ambulatory [facility] Work Phone: Start: 01-13-2022 End: 01-13-2022 Departed Referred [place] [id number] Start: 01-09-2022 End: 01-09-2022 Admission to same day surgery center [facility] Start: 12-24-2021 End: 12-24-2021 Departed Referred [place] [id number] Start: 12-24-2021 Registered Referred [place] [id number] Start: 11-24-2021 End: 11-24-2021 Departed Referred [place] [id number] Start: 10-27-2021 End: 10-27-2021 Departed Referred [place] [id number] Start: 09-12-2021 End: 09-12-2021 [facility] Start: 08-21-2021 End: 08-21-2021 Departed Referred [place] [id number] Start: 08-21-2021 Registered Referred [place] [id number] Start: 08-13-2021 End: 08-13-2021 Departed Referred [place] [id number] Start: 07-28-2021 End: 07-28-[address] MAGDY VOGT MD [facility] Start: 07-21-2021 End: 07-21-2021 [facility] Start: 06-23-2021 End: 06-23-2021 Patient encounter procedure 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[employer] [facility] Start: 06-16-2021 Registered Referred [place] [id number] Start: 05-27-2021 End: 05-27-2021 Emergency department patient visit [facility] Start: 05-26-2021 Registered Referred [place] [id number] Start: 04-09-2021 End: 04-09-2021 Patient encounter procedure 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 Lavon Vicente MD Work Phone: Comment on above: Vitamin D StatusDefi ciency: <20 ng/mL (50nmol/L)Insufficiency: 20-30 ng/mL (50-75 nmol/L)Sufficiency: 30-100 ng/mL (75-250 nmol/L)Toxicity: >100 ng/mL (>250 nmol/L) Start: 07-14-2024 Measurement of renal function Dr. Lavon Vicente MD Work Phone: Comment on above: GFR Calc Start: 07-07-2024 Measurement of renal function Dr. Lavon Vicente MD Work Phone: Comment on above: GFR Calc Start: 07-05-2024 Urnls dip stick/tabl et reagent auto microscopy Dr. Lavon Vicente MD Work Phone: Start: 07-05-[address] Lavon Vicente MD Work Phone: Start: 07-03-[address] Lavon Vicente MD Work Phone: Start: 07-03-2024 Injection of spinal epidural space Dr. Lavon Vicente MD Work Phone: Start: 07-03-2024 Injection using fluoroscopic guidance Dr. Lavon Vicente MD Work Phone: Start: 07-03-2024 Measurement of renal function Dr. Lavon Vicente MD Work Phone: Comment on above: GFR Calc Start: 07-03-2024 Urnls dip stick/tabl et reagent auto microscopy Dr. Lavon Vicente MD Work Phone: Start: 03-31-2024 Cystoscopy ISREAL MONTANEZ BOILERMAKING SUPERVISOR-MATERIAL HANDLING TECHNICIAN Start: 10-19-2023 CT of abdomen and pe lvis without contrast Dr. Lavon Vicente Work Phone: Start: 10-01-[address] Lavon Vicente Work Phone: Start: 09-06-[address] Lavon Vicente Work Phone: Start: 07-07-2023 [place] operation, litholapaxy Dr. Lavon Vicente Work Phone: Start: 07-06-2023 Computed tomography of abdomen and pelvis with contrast Dr. Lavon Vicente Work Phone: Start: 07-05-2023 Plain X-ray abdomen Dr. Lavon Vicente Work Phone: Start: 07-05-2023 MRI of brain without contrast Dr. Lavon Vicente Work Phone: Start: 07-03-[address] Lavon Vicente Work Phone: Start: 07-02-2023 CT of head without contrast Start: 07-02-2023 Plain chest X-ray Start: 07-02-2023 SARS-CoV-2, Influenz a & RSV (PCR) Start: 07-02-2023 Dr. Lavon herrera Work Phone: Start: 03-17-2023 Injection of spinal epidural space Start: 03-17-2023 Injection using fluoroscopic guidance Start: 03-09-2023 Urine culture Start: 02-26-2023 Bacteria identificat ion test Dr. Lavon Vicente Work Phone: Start: 02-22-2023 Investigation of transfusion reaction Dr. Lavon Vicente Work Phone: Start: 02-22-2023 Microbial culture, routine Dr. Lavon Vicente Work Phone: Start: 01-21-[address] Lavon Vicente Work Phone: Start: 11-14-[address] Lavon Vicente Work Phone: Start: 11-14-2022 Dr. Lavon herrera Work Phone: Start: 11-12-[address] Lavon Vicente Work Phone: Start: 11-09-2022 CT of abdomen and pe lvis without contrast Dr. Lavon Vicente Work Phone: Start: 11-09-[address] Lavon Vicente Work Phone: Start: 11-09-2022 Dr. Lavon herrera Work Phone: Start: 11-06-2022 Plain chest X-ray Dr. Edmundo Vicente Work Phone: Start: 11-06-2022 CT of head without contrast Dr. Lavon Vicente Work Phone: Start: 10-28-2022 Injection of spinal epidural space Dr. Lavno Vicente Work Phone: Start: 10-28-[address] Kimberly Vicente Work Phone: Start: 10-28-2022 Local anesthetic sac ral epidural block Dr. Lvaon Vicente Work Phone: Start: 09-12-2022 CT angiography of ch est with contrast Dr. Lavon Vicente Work Phone: Start: 09-12-2022 Plain chest X-ray Dr. Edmundo Vicente Work Phone: Start: 07-24-2022 Plain chest X-ray Dr. Edmundo Vicente Work Phone: Start: 07-24-2022 CT of head without contrast Dr. Lavon Vicente Work Phone: Start: 06-03-2022 CT of head without contrast Start: 06-03-2022 Plain chest X-ray Start: 01-09-2022 Injection of spinal epidural space Start: 01-09-2022 Injection using fluoroscopic guidance Start: 01-09-2022 Local anesthetic sac ral epidural block Start: 10-27-2021 Urine culture Start: 09-12-2021 Injection of sacroil iac joint Start: 09-12-2021 Fluoroscopic guidance Start: 08-13-2021 Urine culture Start: 07-21-2021 Injection using fluoroscopic guidance Start: 07-21-2021 OR-Steroi/Epid Inj/L um Sac/1st Start: 05-27-2021 Plain chest X-ray Start: 05-27-2021 Urine culture Start: 05-26-2021 Urine culture Abdominal hysterectomy CHASE PAGE BOILERMAKING SUPERVISOR-MATERIAL HANDLING TECHNICIAN Bacteria identified in Blood by Culture Dr. Lavon Vicente Work Phone: Bacteria identified in Blood by Culture Dr. Lavon Vicente Work Phone: Closed fracture of c ervical spine (disorder) DR MAGDY VOGT MD Comment on above: c7 fracture after di ving accident causing quadraplegia H/O: tracheostomy ISREAL MONTANEZ BOILERMAKING SUPERVISOR-MATERIAL HANDLING TECHNICIAN Laparotomy 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MATERIAL HANDLING TECHNICIAN Comment on above: for repair of bowel after hysterectomy Respiratory Panel (PCR) Dr. Lavon Vicente Work Phone: SARS-CoV-2 & FLU Ant igen (Rapid) SARS-CoV-2 & FLU Ant igen (Rapid) Dr. Lavon Vicente Work Phone: SARS-CoV-2 & FLU Ant igen (Rapid) Dr. Lavon Vicente Work Phone: Urine culture Urine culture Dr. Lavon Bernstein en Work Phone: Urine culture Dr. Lavon Bernstein en Work Phone: Urine culture Dr. Lavon Bernstein en Work Phone: Urine culture Dr. Lavon croft Work Phone: Urine culture Dr. Lavon croft Work Phone: Urine culture Dr. Lavon Bernstein en Work Phone: Urine culture Dr. Lavon Bernstein en Work Phone: Dr. Lavon guthrie Work Phone: Dr. Lavon guthrie Work Phone: Dr. Lavon guthrie Work Phone: Plan of Treatment Date Care Activity Detail Author Start: 07-03-2024 Njx dx/ther sbst intrlmnr lmbr/sac w/img gdn NJX INTERLAMINAR LMBR/SAC [facility] Start: 07-03-2024 Patient discharge [facility] Start: 07-08-2023 Patient discharge [facility] Start: 07-06-2023 Electrocardiographic monitoring [facility] Start: 07-06-2023 Consultation [facility] Start: 07-05-2023 [facility] Start: 07-04-2023 Care planning and problem solving actions [facility] Start: 07-03-2023 [facility] Start: 07-03-2023 Insertion of nasogastric tube [facility] Start: 07-03-2023 Electroencephalogram [facility] Start: 07-03-2023 Consultation [facility] Start: 07-03-2023 Following clinical pathway protocol [facility] Start: 07-03-2023 Cardiac monitoring [facility] Start: 07-03-2023 Catheterization of vein [facility] Start: 07-03-2023 Notification of physician [facility] Start: 07-03-2023 Contact precautions [facility] Start: 07-03-2023 Telemedicine consultation with patient [facility] Start: 07-03-2023 End: 07-03-2023 [facility] Start: 07-03-2023 Admission procedure [facility] Start: 07-02-2023 Hospital admission, emergency, from emergency room, medical nature [facility] Start: 07-02-2023 End: 07-03-2023 Blood culture [facility] Start: 07-02-2023 End: 07-02-2023 [facility] Start: 07-02-2023 Bacteria identified in Blood by Culture Blood Culture [facility] Start: 07-02-2023 Bacteria identified in Urine by Culture [facility] Start: 03-17-2023 Njx dx/ther sbst intrlmnr lmbr/sac w/img gdn [facility] Start: 03-17-2023 Patient discharge [facility] Start: 02-12-2023 Influenza vaccination INFLUENZA (Season Ended) [facility] Start: 11-22-2022 [facility] Start: 11-21-2022 [facility] Start: 11-20-2022 [facility] Start: 11-19-2022 [facility] Start: 11-18-2022 [facility] Start: 11-17-2022 [facility] Start: 11-16-2022 Patient discharge [facility] Start: 11-16-2022 Assessment of risk of venous thromboembolism [facility] Start: 11-16-2022 Consultation [facility] Start: 11-15-2022 Incentive spirometry [facility] Start: 11-15-2022 [facility] Start: 11-15-2022 Oxygen therapy [facility] Start: 11-15-2022 Following clinical pathway protocol [facility] Start: 11-15-2022 Assessment of risk of venous thromboembolism [facility] Start: 11-15-2022 Insertion of catheter into peripheral vein [facility] Start: 11-15-2022 Providing care according to standard [facility] Start: 11-15-2022 Referral to occupational therapist [facility] Start: 11-15-2022 Referral to service [facility] Start: 11-15-2022 [facility] Start: 11-15-2022 Admission procedure [facility] Start: 11-15-2022 Inhalation therapy procedure [facility] Start: 11-15-2022 Patient referral to dietitian [facility] Start: 11-14-2022 End: 11-14-2022 Blood culture [facility] Start: 11-14-2022 End: 11-15-2022 [facility] Start: 11-12-2022 [facility] Start: 11-09-2022 [facility] Start: 11-09-2022 End: 11-09-2022 Blood culture [facility] Start: 11-06-2022 [facility] Start: 10-28-2022 Radiography of spine [facility] Start: 10-28-2022 Anes dx/ther nerve block/injection prone pos [facility] Start: 10-28-2022 Njx dx/ther sbst intrlmnr lmbr/sac w/img gdn [facility] Start: 10-28-2022 Patient discharge [facility] Start: 09-14-2022 Patient discharge [facility] Start: 09-13-2022 Care planning and problem solving actions [facility] Start: 09-13-2022 [facility] Start: 09-13-2022 Respiratory secretion precautions [facility] Start: 09-12-2022 Following clinical pathway protocol [facility] Start: 09-12-2022 Assessment of risk of venous thromboembolism [facility] Start: 09-12-2022 Consultation [facility] Start: 09-12-2022 Elevation of head of bed [facility] Start: 09-12-2022 Incentive spirometry [facility] Start: 09-12-2022 Insertion of catheter into peripheral vein [facility] Start: 09-12-2022 Measuring intake and output [facility] Start: 09-12-2022 Oxygen therapy [facility] Start: 09-12-2022 Patient education [facility] Start: 09-12-2022 Providing care according to standard [facility] Start: 09-12-2022 Provision of activity privileges [facility] Start: 09-12-2022 Referral to occupational therapist [facility] Start: 09-12-2022 Referral to service [facility] Start: 09-12-2022 End: 09-12-2022 Blood culture [facility] Start: 09-12-2022 End: 09-12-2022 [facility] Start: 09-12-2022 Verification routine [facility] Start: 09-12-2022 Admission procedure [facility] Start: 09-12-2022 [facility] Start: 09-12-2022 End: 09-12-2022 [facility] Start: 07-24-2022 [facility] Start: 07-24-2022 [facility] Start: 07-24-2022 CT of head without contrast Brain/Head without Contrast [facility] Start: 07-24-2022 Plain chest X-ray Chest 1 View (Portable) [facility] Start: 06-14-2022 DEPRESSION ASSESSMENT DEPRESSION ASSESSMENT [facility] Start: 06-05-2022 Patient discharge [facility] Start: 06-05-2022 [facility] Start: 06-03-2022 Oxygen therapy [facility] Start: 06-03-2022 Following clinical pathway protocol [facility] Start: 06-03-2022 Assessment of risk of venous thromboembolism [facility] Start: 06-03-2022 Catheterization of vein [facility] Start: 06-03-2022 Incentive spirometry [facility] Start: 06-03-2022 Insertion of catheter into peripheral vein [facility] Start: 06-03-2022 Providing care according to standard [facility] Start: 06-03-2022 Provision of activity privileges [facility] Start: 06-03-2022 Referral to service [facility] Start: 06-03-2022 [facility] Start: 06-03-2022 Admission procedure [facility] Start: 06-03-2022 End: 06-04-2022 [facility] Start: 06-03-2022 End: 06-03-2022 Blood culture [facility] Work Phone: Start: 06-03-2022 Patient referral to dietitian [facility] Start: 01-09-2022 Anes dx/ther nerve block/injection prone pos ANESTH N BLOCK/INJ PRONE [facility] Work Phone: Start: 01-09-2022 Njx dx/ther sbst intrlmnr lmbr/sac w/img gdn NJX INTERLAMINAR LMBR/SAC [facility] Work Phone: Start: 01-09-2022 Patient discharge [facility] Work Phone: Start: 09-12-2021 Anes nerve musc tendon fascia & bursae upper leg ANESTH UPPER LEG SURGERY [facility] Work Phone: Start: 09-12-2021 Inject si joint arthrgrphy&/anes/steroid w/peter INJECT SACROILIAC JOINT [facility] Work Phone: Start: 09-12-2021 Fluoroscopic guidance [facility] Work Phone: Start: 09-12-2021 Patient discharge [facility] Work Phone: Start: 07-21-2021 Njx dx/ther sbst intrlmnr lmbr/sac w/img gdn NJX INTERLAMINAR LMBR/SAC [facility] Work Phone: Start: 2019 COLOGUARD (FIT-DNA) COLOGUARD (FIT-DNA) [facility] Start: 2019 Colonoscopy COLONOSCOPY [facility] Start: 2019 COLORECTAL CANCER SCREENING COLORECTAL CANCER SCREENING [facility] Start: [address] COLONOGRAPHY [facility] Start: 2019 DIABETES SCREEN DIABETES SCREEN [facility] Start: 2019 FECAL OCCULT BLOOD FECAL OCCULT BLOOD [facility] Start: 2019 LIPID SCREEN LIPID SCREEN [facility] Start: 2019 SIGMOIDOSCOPY SIGMOIDOSCOPY [facility] Start: 2014 Mammography MAMMOGRAM [facility] Start: 01-11-2004 HPV TESTING HPV TESTING [facility] Start: 1995 PAP TESTING PAP TESTING [facility] Start: 1993 Urine microalbumin profile DTAP,TDAP,TD (1 - Tdap) [facility] Start: 01-11-1992 HEPATITIS C SCREENING HEPATITIS C SCREENING [facility] Start: 01-11-1992 HIV SCREENING HIV SCREENING [facility] Start: 1974 HEPATITIS B (1 of 3 - 3-dose series) HEPATITIS B (1 of 3 - 3-dose series) [facility] Alanine aminotransfe rase [Enzymatic activity/volume] in Serum or Plasma [facility] Albumin [Mass/volume ] in Serum or Plasma [facility] Alkaline phosphatase [Enzymatic activity/volume] in Serum or Plasma [facility] Anion gap measurement [facility] Aspartate aminotrans ferase [Enzymatic activity/volume] in Serum or Plasma [facility] Bacteria identified in Blood by Culture Blood Culture [facility] Bacteria identified in Urine by Culture Urine Culture [facility] Bacteria identified in Urine by Culture [facility] Bilirubin measurement, urine [facility] Bilirubin, total measurement [facility] Blood ammonia measurement [facility] Blood culture [facility] Work Phone: BUN/Creatinine ratio [facility] Calcium [Mass/volume ] in Serum or Plasma [facility] Carbon dioxide, tota l [Moles/volume] in Serum or Plasma [facility] Chloride [Moles/volu me] in Serum or Plasma [facility] Creatinine [Moles/vo lume] in Serum or Plasma [facility] Glucose [Mass/volume ] in Serum or Plasma [facility] Hematocrit [Volume F raction] of Blood [facility] Hemoglobin [Mass/vol ume] in Blood [facility] Hemoglobin [Presence ] in Urine [facility] Lactic acid measurement [facility] Lactic acid measurement [facility] Lactic acid measurement [facility] Leukocytes [#/volume ] in Blood [facility] Mean corpuscular hem oglobin concentration determination [facility] Mean corpuscular hem oglobin determination [facility] Measurement of keton es in urine using dipstick [facility] Measurement of renal function [facility] Microscopic urinalysis [facility] Neutrophil count [facility] Neutrophil percent differential count [facility] Patient Education [facility] Work Phone: Patient referral [facility] Work Phone: pH of Urine [facility] Platelets [#/volume] in Blood [facility] Potassium [Moles/vol ume] in Serum or Plasma [facility] Red blood cell count [facility] Red cell distributio n width determination [facility] Sodium [Moles/volume ] in Serum or Plasma [facility] Specific gravity of Urine [facility] Total protein measurement [facility] Urea nitrogen [Mass/ volume] in Serum or Plasma [facility] Urinalysis, blood, qualitative [facility] Urine culture Urine Culture [facility] Urine culture [facility] Urine culture [facility] Urine dipstick for glucose [facility] Urine dipstick for l eukocyte esterase [facility] Urine dipstick for nitrite [facility] Urine dipstick for protein [facility] Urine examination [facility] Urine microscopy: ep ithelial cells [facility] Urine Microscopy: white cells [facility] Urobilinogen [Presen ce] in Urine [facility] End: 11-05-2023 US KIDNEY/BLADDER US KIDNEY/BLADDER Radiology Routine Bladder stones 1 Occurrences starting 10/06/2022 until 11/05/2023 [facility] Work Phone: Comment on above: 1 Occurrences starting 10/06/2022 until 11/05/2023 [facility] Immunizations Immunization Date Immunization Notes Care Provider Fa cility 06-23-2022 Covid Pfizer Bivalen t Booster Dr. Lavon Vicente Work Phone: [facility] 03-24-2021 Covid (Pfizer) Dr. Lavon syed Work Phone: [facility] 07-10-2020 Covid (Pfizer) Dr. Lavno syed Work Phone: [facility] 06-19-2020 Covid (Pfizer) Dr. Lavon syed Work Phone: [facility] 04-12-2018 Influenza virus vaccine [facility] 05-27-2016 influenza, injectabl e, quadrivalent, preservative free Dr. Lavon Vicente Work Phone: [facility] 05-27-2016 influenza, seasonal, injectable [facility] 03-17-2014 influenza, injectabl e, quadrivalent, preservative free Dr. Lavon Vicente Work Phone: [facility] 03-17-2014 influenza, seasonal, injectable [facility] 03-24-2013 Influenza virus vaccine [facility] 03-24-2013 influenza, injectabl e, quadrivalent, preservative free Dr. Lavon Vicente Work Phone: [facility] 03-24-2013 influenza, seasonal, injectable Dr. Lavon Vicente Work Phone: [facility] 03-18-2011 Pneumococcal Vaccine [facility] Work Phone: 03-18-2011 pneumococcal vaccine , unspecified formulation [facility] 11-12-2010 tetanus toxoid, redu chirag diphtheria toxoid, and acellular pertussis vaccine, adsorbed Dr. Lavon Vicente Work Phone: [facility] Payers Date Payer Category Payer Self-pay [id number] 2022 Medicare UHC MEDICARE UHC MEDICARE ADVANTAGE PPO [id number] 2022-Present [phone] [address] [address] [place] [address] PPO [id number] 2022 Unknown [id number] 2014 Medicaid [facility] [id number] 2014-Present [phone] [address] [place] [address] Medicaid [id number] 2014 Unknown [id number] 2009 Unknown [id number] 1974 Unknown [id number] [id number] 1974 Unknown [id number] 2.840.1.644670.3.579.2.627 1974 Unknown [id number] .840.1.746948.3.579.2.627 1974 Unknown [id number] 2.840.1.912216.3.579.2.62 1974 Unknown [id number] 2.840.1.373111.3.579.2.627 1974 Unknown [id number] .840.1.974427.3.579.2.627 1974 Unknown [id number] 2.840.1.343430.3.579.2.627 1974 Unknown [id number] 2.840.1.310826.3.579.2.627 Unknown [id number] Unknown [id number] 2.16840.1.562999.3.579.2.462 Unknown [id number] 2.16840.1.168887.3.579.2.462 Unknown [id number] 2.16840.1.447116.3.579.2.462 Unknown [id number] 2.16840.1.776159.3.579.2.462 Unknown [id number] 2.16840.1.417753.3.579.2.462 Unknown [id number] 2.16.840.1.285804.3.579.2.462 Unknown [id number] 2.16.840.1.616383.3.579.2.462 Unknown [id number] 2.16.840.1.496743.3.579.2.462 Unknown [id number] 2.16.840.1.039593.3.579.2.462 Unknown [id number] 2.16.840.1.496263.3.579.2.462 Unknown [id number] 2.16.840.1.625897.3.579.2.462 Unknown [id number] 2.16.840.1.290280.3.579.2.462 Unknown [id number] 2.16.840.1.660521.3.579.2.462 Unknown [id number] 2.16.840.1.577914.3.579.2.462 Unknown [id number] 2.16.840.1.701205.3.579.2.462 Unknown [id number] 2.16.840.1.162937.3.579.2.462 Unknown [id number] 2.16.840.1.724106.3.579.2.462 Unknown [id number] 2.16.840.1.153290.3.579.2.462 Unknown [id number] 2.16840.1.051261.3.579.2.462 Social History Date Type Detail Facility Start: 04-03-2019 End: 07-02-2023 Never smoked tobacco (finding) [facility] Start: 1975 Sex Assigned At Female [facility] Start: 05-27-2021 End: 07-02-2023 Tobacco smoking status IAIS Unknown if ever smoked [facility] Start: 01-30-2021 None [facility] Start: 08-28-2018 [facility] Start: 08-08-2019 Non-smoker [facility] Start: 04-05-2019 Tobacco use and exposure Smokeless tobacco non-user [facility] Start: 10-06-2022 Alcohol intake 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 (finding) [facility] Start: 1975 Sex Assigned At Not on file [facility] Start: 09-29-2024 Sex Female (finding) [facility] NEGATED: Highlighted row [facility] Goals Date Patient Goal Desired Activity /State Functional Status Date Assessment Result Facility 03-01-2024 Functional Status Awake, Other: up to wheelchair with terra and 3 assist [facility] 03-01-2024 Functional Status [facility] 03-01-2024 Functional Status [facility] 03-01-2024 Functional Status Maintained [facility] 07-08-2023 Functional status Bedrest [facility] Work Phone: 11-16-2022 Functional status Bedrest [facility] Work Phone: 09-14-2022 Functional status Bedrest [facility] Work Phone: 06-05-2022 Functional status Bedrest [facility] Work Phone: Mental Status Date Assessment Result Facility 07-03-2024 Cognitive function Voice/Name [facility] Work Phone: 03-01-2024 Mental Status Oriented x 4 [facility] 03-01-2024 Mental Status [facility] 03-01-2024 Mental Status Orientation Asse ssment Oriented x 4 [facility] 07-08-2023 Cognitive function Voice/Name [facility] Work Phone: 07-02-2023 Cognitive function Level Of Consciousness Awake [facility] Work Phone: 03-17-2023 Cognitive function Voice/Name [facility] Work Phone: 11-16-2022 Cognitive function Voice/Name [facility] Work Phone: 11-06-2022 Cognitive function Deep Pain [facility] Work Phone: 10-28-2022 Cognitive function Voice/Name [facility] Work Phone: 09-14-2022 Cognitive function Voice/Name [facility] Work Phone: 07-24-2022 Cognitive function Voice/Name [facility] Work Phone: 06-05-2022 Cognitive function Voice/Name [facility] Work Phone: 06-03-2022 Cognitive function [facility]/Name [facility] Work Phone: 01-09-2022 Cognitive function Voice/Name [facility] Work Phone: 09-12-2021 Cognitive function Voice/Name [facility] Work Phone: 07-21-2021 Cognitive function Voice/Name [facility] Work Phone: 05-27-2021 Cognitive function Level Of Cons ciousness Awake;Alert;Appropriate;Follow s Commands [facility] Work Phone: Clinical Notes 01-15-2021 to 03-01-2024 LaboratoryRadiology Note Date & Type Note Facility 03-01-2024 Hospital Discharge instructions Patient Education 03/01/2024 14:05:50 1-[facility] URO Cystoscopy (03/2022) (Custom) YOU HAVE BEEN SCHEDULED FOR OFFICE CYSTOSCOPY DESCRIPTION OF CYSTOSCOPY: Cystoscopy is a procedure that is used to visually inspect the bladder and the urethra using a small telescope. This can be done in most cases with minimal discomfort using a local anesthetic jelly. The end of the urinary channel (urethra) will be cleaned and a local anesthetic placed into the bladder. The entire exam takes less than 10 minutes. POSSIBLE RISKS WITH CYSTOSCOPY: Burning with urination or blood in the urine may occur that should subside within a day of the procedure. Should you develop persistent symptoms of burning with urination, blood in the urine, frequent urination, fever, or chills please contact our office immediately at [phone], Option 1 for the nurse line. POST CYSTOSCOPY: After the cystoscopy, you might experience mild discomfort with the first little urination and possibly experience some blood in the urine. You should increase your water intake for the next 1-2 days following the procedure. You will also get a prescription of antibiotics to take following the procedure. 03/01/2024 14:05:50 Cystogram Cystogram A cystogram, which is also called cystography, is a type of X-ray exam that is used to check for problems with the bladder. You may need this exam if you have blood in your urine (hematuria), urinary tract infections that keep coming back, or possible damage to your bladder from an injury. During the exam, a type of dye will be injected into your bladder. This dye shows up on an X-ray. The dye makes it easier for your health care provider to see your bladder and check for any possible problems. A cystogram can be used to help diagnose problems such as: Cysts. Blood clots (hematoma). Punctures, tears, or other damage to the bladder. Bladder tumors. Backward flow of urine from the bladder to the ureter (vesicoureteral reflux). An abnormal tunnel (fistula) from the bladder to another organ. Tell a health care provider about: Any allergies you have. All medicines you are taking, including vitamins, herbs, eye drops, creams, and tedv-ofc-wkqmrfk medicines. Any problems you or family members have had with anesthetic medicines or injectable dyes. Any blood disorders you have. Any surgeries you have had. Any medical conditions you have. Whether you are or may be . What are the risks? Generally, this is a safe procedure. However, problems may occur, including: Exposure to a small amount of radiation. Urinary tract infection. Bleeding. Allergic reaction to the dye. This is rare. What happens before the procedure? Ask your health care provider about: ?Changing or stopping your regular medicines. This is especially important if you are taking diabetes medicines or blood thinners. ?Taking medicines such as aspirin and ibuprofen. These medicines can thin your blood. Do not take these medicines unless your health care provider tells you to take them. ?Taking ggvj-bof-sjuopol medicines, vitamins, herbs, and supplements. Follow instructions from your health care provider about eating or drinking restrictions. What happens during the procedure? You will lie on your back on an X-ray table. A thin, flexible tube (catheter) will be passed through your urethra and into your bladder. The urethra is the part of your body that drains urine from the bladder. The health care provider will inject dye into your bladder through the catheter. When your bladder is full, the catheter will be clamped. X-ray images of your bladder area will be taken. You may be asked to move into different positions for some of the scans. The catheter will then be removed. In some cases, you may be asked to urinate while more X-rays are taken of your bladder and urethra (voiding cystogram). The procedure may vary among health care providers and hospitals. What happens after the procedure? Return to your normal activities and your normal diet as told by your health care provider. Drink enough fluid to keep your urine pale yellow. This will help to flush the dye out of your body. It is up to you to get your test results. Ask your health care provider, or the department that is doing the test, when your results will be ready. Summary A cystogram, which is also called cystography, is a type of X-ray exam that is used to check for problems with the bladder. A catheter will be passed through your urethra and inserted into your bladder. Your health care provider will inject dye into your bladder through the catheter. The dye shows up on an X-ray, making it easier for your health care provider to see your bladder and check for any possible problems. After the procedure, you should drink enough fluid to keep your urine pale yellow. This will help to flush the dye out of your body. This information is not intended to replace advice given to you by your health care provider. Make sure you discuss any questions you have with your health care provider. Document Released: 07/02/2005 Document Revised: 05/13/2018 Document Reviewed: 05/09/2018 [employer] Patient Education 2020 [employer]. 03/01/2024 14:01:34 1- SDS General Discharge Guidelines (02/26/2023) (CUSTOM) [facility] SAME DAY SURGERY DISCHARGE INSTRUCTIONS PLEASE FOLLOW THE INSTRUCTIONS BELOW MARKED WITH AN X: __X_Regular Diet: Start with clear liquids, then soup and crackers. Gradually add other foods unless otherwise instructed by your surgeon __X_Drink extra fluids ACTIVTY: __X_Since you have had anesthetic, it would be advisable not to drive, drink alcohol, or make major decisions over the next 24 hours. You may require more rest tonight and tomorrow __X_Do not drive vehicle while taking narcotics and as directed by your Surgeon ____Restrict activity as follows: ____Do not have sexual intercourse. Nothing in the vagina-No tampons or Douching ____No heavy lifting, pushing, or straining ____Elevate operative limb ____Ice as directed __X_Follow all written and verbal instructions given to you by your Doctor ____Other: BATHING/SHOWERING ____Sponge bathe until office visit. ____Sitting in tub of warm water may relieve discomfort ____May tub bathe ____May shower in 24-48 hours with clean linen unless otherwise instructed by your Doctor DRESSING: ____Keep operative area clean and dry ____Check the operative area for signs of bleeding. Apply pressure to the bleeding site if necessary. ____Change drip pad as needed ____Wear scrotal support for comfort WATCH FOR SIGNS OF INFECTION: (Usually appears 36-48 hours after surgery) Increased temperature (101 degrees Fahrenheit or higher) Redness or swelling Increased pain Foul odor or drainage If you have any questions, please call your doctor at the number listed on your follow-up instructions. Follow Up Care 02/10/2024 13:34:32 With:CHERIE RENEE MD, [facility], Urology Service Address: [address] [place] [address] [address] [place] [address]- [phone] When: Unknown Comments:Follow-up as scheduled With:ISREAL PAGE, [facility], Urology Service Address: [address] [place] [address] [address] [place] [address] [phone] When: Unknown [facility] 03-01-2024 Summary of episode note Discharge Instructions Thank you for allowing [facility] to assist you with your healthcare needs. The following is important discharge information regarding your hospital visit. Your Diagnosis Neurogenic bladder: s/p SPT (placed by Dr. Choi) Bladder calculi Chronic suprapubic catheter What to do next Instructions From Your Doctor It is very important that the suprapubic tube be irrigated twice per day. I would recommend irrigating it with 50 to 100 mL of sterile water for every irrigation. Be sure to draw back, drawing back any sediment. Scheduled Follow-Up Appointments Appointment Type When With Where Contact Information StatusURO OV Post Op 03/17/2024 10:20 AM EDT CHERIE RENEE MD [facility] Confirmed Follow Up Appointments Follow Up [facility] Where:[address] [facility] [address] [place] [address] [phone] Additional Information: Follow-up as scheduled Follow Up with ISREAL PAGE, [facility], Urology Service Where:[address] [facility] [address] [place] [address] [phone] The Following Activity and Diet Have Been Ordered for You Discharge Activity - Ordered -- NO activity restrictions, 03/01/24 13:56:00 EDT Discharge Diet - Ordered -- No changes were made to your diet during your hospital stay. Please resume your pre hospitalization diet on discharge., 03/01/24 13:56:00 EDT Allergies Coconut RASH, CLOSES OFF AIRWAY amoxicillin penicillin Medications Please ask your primary doctor or pharmacist before taking any other medication not listed, including over the counter drugs, herbal medications, vitamins and or supplements as they may interact with your home medications. What How Much When Why Instructions Last Dose Unchanged acetaminophen (acetaminophen 120 mg rectal suppository) 1 suppository(ies) in the rectum Every 4 hours as needed for for pain 650mg QID Unchanged acetaminophen (Tylenol 325 mg oral capsule) 1 cap by mouth Every 4 hours as needed for as needed for fever Unchanged baclofen (baclofen 20 mg oral tablet) 2 tab(s) by mouth Four (4) times a day Unchanged buprenorphine (buprenorphine 20 mcg/ hr transdermal film, extended release) 1 patch(es) Transdermal Every week Unchanged busPIRone (busPIRone 5 mg oral tablet) Unchanged cholecalciferol (Vitamin D3) 2,000 unit(s) by mouth Every day Unchanged diphenhydrAMINE (Benadryl 25 mg oral capsule) 1 cap by mouth Three (3) times a day as needed for for itching Unchanged docusate (docusate sodium 100 mg oral capsule) 1 cap by mouth Two (2) times a day as needed for as needed for constipation Unchanged DULoxetine (DULoxetine 60 mg oral delayed release capsule) 2 cap by mouth Once a day Unchanged ferrous gluconate (ferrous gluconate 240 mg (27 mg elemental iron) oral tablet) 1 tab(s) by mouth Once a day Unchanged furosemide (Lasix 20 mg oral tablet) 2 tab(s) by mouth Once a day (in the morning) Unchanged furosemide (Lasix 20 mg oral tablet) 1 tab(s) by mouth Once a day (in the evening) Unchanged gabapentin (gabapentin 800 mg oral tablet) 2 tab(s) by mouth Three (3) times a day Unchanged guaifenesin-pseudoephedrine (Mucinex D 60 mg-600 mg oral tablet, extended release) 1 tab(s) by mouth Two (2) times a day as needed for as needed for cold symptoms Unchanged ibuprofen (ibuprofen 600 mg oral tablet) 1 tab(s) by mouth Four (4) times a day as needed for as needed for pain Unchanged isosorbide mononitrate (isosorbide mononitrate 30 mg oral tablet, extended release) 1 tab(s) by mouth Once a day (in the morning) Unchanged lactobacillus acidophilus (Acidophilus Extra Strength) by mouth Once a day Unchanged levothyroxine (levothyroxine 75 mcg (0.075 mg) oral tablet) 1 tab(s) by mouth Once a day Unchanged linaclotide (Linzess 145 mcg oral capsule) Unchanged magnesium hydroxide (Milk of Magnesia 8% oral suspension) 30 Milliliter by mouth Daily at bedtime as needed for for constipation Unchanged melatonin (melatonin 5 mg oral tablet) 1 tab(s) by mouth Daily at bedtime as needed for as needed for insomnia Unchanged mirabegron (Myrbetriq 25 mg oral tablet, extended release) 1 tab(s) by mouth Once a day Bladder spasms Duration: 30 Days Unchanged Misc Medication (BUSPIRONE HYDROCHLORIDE 7.5 MG TABS) Unchanged nystatin topical (nystatin 100,000 units/ g topical cream) 1 application Topical Two (2) times a day Unchanged ocular lubricant (Artificial Tears ophthalmic solution) 1 Drops Both eyes Two (2) times a day as needed for as needed for dry eyes Unchanged omeprazole (omeprazole 20 mg oral delayed release capsule) 1 cap by mouth Once a day Unchanged ondansetron (Zofran 4 mg oral tablet) 1 tab(s) by mouth Every 6 hours as needed for Nausea/Vomiting Unchanged oxybutynin (oxybutynin 5 mg oral tablet) 2 tab(s) by mouth Three (3) times a day Unchanged PARoxetine (PARoxetine 20 mg oral tablet) 1 tab(s) by mouth Once a day Unchanged phenazopyridine (Pyridium 200 mg oral tablet) 1 tab(s) by mouth Three (3) times a day Unchanged polyethylene glycol 3350 (polyethylene glycol 3350 oral powder for reconstitution) 17 gram(s) by mouth Every day as needed for Constipation Unchanged potassium chloride (Potassium Chloride (Uuy-Ebjn-Svk M10) 10 mEq oral tablet, extended release) Unchanged senna (senna 8.6 mg oral tablet) 1 tab(s) by mouth Two (2) times a day as needed for for constipation Unchanged simethicone (simethicone 80 mg oral tablet) 1 tab(s) Chewed Four (4) times a day as needed for for gas Unchanged sodium biphosphate-sodium phosphate (Fleet Enema 7 g-19 g rectal enema) 1 Each in the rectum Once as needed for for constipation Unchanged traMADol (Ultram 50 mg oral tablet) 1 tab(s) by mouth Two (2) times a day Unchanged traZODone by mouth Unchanged triamcinolone nasal (Nasacort Allergy 24HR 55 mcg/ inh nasal spray) 1 spray(s) each nostril Once a day Unchanged trimethoprim (trimethoprim 100 mg oral tablet) 1 tab(s) by mouth Every day Please take this list to your next doctor s visit. Bring all medications you take, including over the counter medications, herbals and other supplements with you to your doctor s visit. Patients and families are reminded to discard old lists and to update any records with all medication providers or retail pharmacies. Education Materials YOU HAVE BEEN SCHEDULED FOR OFFICE CYSTOSCOPY DESCRIPTION OF CYSTOSCOPY: Cystoscopy is a procedure that is used to visually inspect the bladder and the urethra using a small telescope. This can be done in most cases with minimal discomfort using a local anesthetic jelly. The end of the urinary channel (urethra) will be cleaned and a local anesthetic placed into the bladder. The entire exam takes less than 10 minutes. POSSIBLE RISKS WITH CYSTOSCOPY: Burning with urination or blood in the urine may occur that should subside within a day of the procedure. Should you develop persistent symptoms of burning with urination, blood in the urine, frequent urination, fever, or chills please contact our office immediately at [phone], Option 1 for the nurse line. POST CYSTOSCOPY: After the cystoscopy, you might experience mild discomfort with the first little urination and possibly experience some blood in the urine. You should increase your water intake for the next 1-2 days following the procedure. You will also get a prescription of antibiotics to take following the procedure. Cystogram A cystogram, which is also called cystography, is a type of X-ray exam that is used to check for problems with the bladder. You may need this exam if you have blood in your urine (hematuria), urinary tract infections that keep coming back, or possible damage to your bladder from an injury. During the exam, a type of dye will be injected into your bladder. This dye shows up on an X-ray. The dye makes it easier for your health care provider to see your bladder and check for any possible problems. A cystogram can be used to help diagnose problems such as: Cysts. Blood clots (hematoma). Punctures, tears, or other damage to the bladder. Bladder tumors. Backward flow of urine from the bladder to the ureter (vesicoureteral reflux). An abnormal tunnel (fistula) from the bladder to another organ. Tell a health care provider about: Any allergies you have. All medicines you are taking, including vitamins, herbs, eye drops, creams, and cmxp-kwh-sakzabj medicines. Any problems you or family members have had with anesthetic medicines or injectable dyes. Any blood disorders you have. Any surgeries you have had. Any medical conditions you have. Whether you are or may be . What are the risks? Generally, this is a safe procedure. However, problems may occur, including: Exposure to a small amount of radiation. Urinary tract infection. Bleeding. Allergic reaction to the dye. This is rare. What happens before the procedure? Ask your health care provider about: ? Changing or stopping your regular medicines. This is especially important if you are taking diabetes medicines or blood thinners. ? Taking medicines such as aspirin and ibuprofen. These medicines can thin your blood. Do not take these medicines unless your health care provider tells you to take them. ? Taking xhgx-ebk-qknrbnz medicines, vitamins, herbs, and supplements. Follow instructions from your health care provider about eating or drinking restrictions. What happens during the procedure? You will lie on your back on an X-ray table. A thin, flexible tube (catheter) will be passed through your urethra and into your bladder. The urethra is the part of your body that drains urine from the bladder. The health care provider will inject dye into your bladder through the catheter. When your bladder is full, the catheter will be clamped. X-ray images of your bladder area will be taken. You may be asked to move into different positions for some of the scans. The catheter will then be removed. In some cases, you may be asked to urinate while more X-rays are taken of your bladder and urethra (voiding cystogram). The procedure may vary among health care providers and hospitals. What happens after the procedure? Return to your normal activities and your normal diet as told by your health care provider. Drink enough fluid to keep your urine pale yellow. This will help to flush the dye out of your body. It is up to you to get your test results. Ask your health care provider, or the department that is doing the test, when your results will be ready. Summary A cystogram, which is also called cystography, is a type of X-ray exam that is used to check for problems with the bladder. A catheter will be passed through your urethra and inserted into your bladder. Your health care provider will inject dye into your bladder through the catheter. The dye shows up on an X-ray, making it easier for your health care provider to see your bladder and check for any possible problems. After the procedure, you should drink enough fluid to keep your urine pale yellow. This will help to flush the dye out of your body. This information is not intended to replace advice given to you by your health care provider. Make sure you discuss any questions you have with your health care provider. Document Released: 07/02/2005 Document Revised: 05/13/2018 Document Reviewed: 05/09/2018 Elsevier Patient Education 2020 [employer] [place] SAME DAY SURGERY DISCHARGE INSTRUCTIONS PLEASE FOLLOW THE INSTRUCTIONS BELOW MARKED WITH AN X: __X_Regular Diet: Start with clear liquids, then soup and crackers. Gradually add other foods unless otherwise instructed by your surgeon __X_Drink extra fluids ACTIVTY: __X_Since you have had anesthetic, it would be advisable not to drive, drink alcohol, or make major decisions over the next 24 hours. You may require more rest tonight and tomorrow __X_Do not drive vehicle while taking narcotics and as directed by your Surgeon ____Restrict activity as follows: ____Do not have sexual intercourse. Nothing in the vagina-No tampons or Douching ____No heavy lifting, pushing, or straining ____Elevate operative limb ____Ice as directed __X_Follow all written and verbal instructions given to you by your Doctor ____Other: BATHING/SHOWERING ____Sponge bathe until office visit. ____Sitting in tub of warm water may relieve discomfort ____May tub bathe ____May shower in 24-48 hours with clean linen unless otherwise instructed by your Doctor DRESSING: ____Keep operative area clean and dry ____Check the operative area for signs of bleeding. Apply pressure to the bleeding site if necessary. ____Change drip pad as needed ____Wear scrotal support for comfort WATCH FOR SIGNS OF INFECTION: (Usually appears 36-48 hours after surgery) Increased temperature (101 degrees Fahrenheit or higher) Redness or swelling Increased pain Foul odor or drainage If you have any questions, please call your doctor at the number listed on your follow-up instructions. Additional Information VACCINATE! IT SAVES LIVES! Members of the community who have not yet received the COVID-19 vaccine and would like to receive it can visit one of [facility] vaccine clinics. There are many vaccine clinic locations within the [facility]. For locations and available times, please visit [email or web address] It is important to note that some COVID mobile vaccine clinics are held outdoors and may be canceled in rainy or stormy conditions. To learn more about pediatric vaccinations (ages 5-11), we invite you to visit the [facility] webpage. [email or web address] To learn more about the COVID-19 vaccine, we invite you to visit the CDC website for a list of frequently asked questions.https://www.cdc.gov/[place] virus/2019-ncov/vaccines/faq.html [facility] Patient Portal Access Instructions: Stay connected with your healthcare team and access your personal medical information anytime with the [facility] Patient Portal. Please follow the directions below to create your [facility] account: 1.Access the email account you provided upon registration to the hospital/physician office.2.Look for an invitation email from [facility].3.Open the email and access the invitation link: Accept Invitation to [facility].4.Fill in the required black to create your account. To access your account, visit [email or web address]. Click the blue button labeled "Access Patient Portal" and then log in with the username and password that you created in the steps above. You will be able to view your test results, lab results, a summary of your visits, upcoming appointments and more. There is also a convenient messaging option where you can send secure messages to your provider. In addition, you will have the ability to download any documents or summaries to your computer and/or send the information securely to a physician. Remember that your healthcare information is confidential, so carefully consider who you will allow to register on the [facility] Patient Portal for access to your information. You can also access the [facility] Patient Portal on the [facility]. Simply click on "Patient Portal" and then log into your account. If you would like to receive a full copy of your medical records, please contact the [facility] Medical Records Department by calling [phone], Wednesday through Wednesday between 8 a.m. and 4:30 p.m. HOW TO SAFELY DISPOSE OF PRESCRIPTION MEDICATIONS Please use one of the following methods to safely dispose of your unused medications. 1.Use a drug disposal kit: the drug disposal pouch allows you to safely discard your old and unused drugs. Ask your nurse to give you one when you are discharged.2.Visit a local take-back location: Many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 aeruginosa Enterococcus faecalis Proteus mirabilis 07/02/23 23:10 Urine, Catheterized Urine Culture - Final Proteus mirabilis Enterococcus faecalis 07/02/23 22:45 Blood Culture (Wb) - Arm Left Blood Culture - Preliminary No growth in 48 hours. 07/02/23 23:15 Blood Culture (Wb) - Arm Left Blood Culture - Preliminary No growth in 48 hours. 07/02/23 22:55 Mucosa - Nose SARS-CoV-2, Influenza & RSV (PCR) - Final Physical Exam Narrative Seen and examined. Patient is more awake and complaining of upper abdominal pain. CT abdomen reported bladder stone but abdominal pain not consistent with the CT report. CTabdomen/pelvis shows bladder and ureteral stones. Has indwelling suprapubic catheter. Had bowel movement. Physical exam: General: Awake. Oriented x3, Cooperative, morbid obesity BMI 41.2 kg square meter HEENT: Atraumatic, PERRLA, EOMI, Normocephalic Oral: Oral mucosa dry. No Gingival or Mucosal Lesions/ Ulcerations Neck: Supple, No JVD, Negative Carotid Bruits Lungs: Air entry diminished in bilateral lung bases. No crepitation/rhonchi Cardiovascular: Regular rate, Regular Rhythm, Normal S1, Normal S2, No murmurs Abdomen: Bowel Sounds present soft, mild upper abdominal tenderness, no guarding/rigidity. No rebound tenderness. : Indwelling suprapubic catheter. No renal angle tenderness. No suprapubic tenderness. Extremities: Slight edema, Capillary Refill Less than 3 Seconds Skin: No rashes, No breakdown Musculoskeletal: Functional quadriplegia. Could not move her legs, chronic paraplegia. No Tenderness to Palpation of Joints or Extremities Neurological: Cranial nerves II-XII grossly intact, chronic neurological deficit. Psych/Mental Status: Flat affect. Patient more quiet today as compared to yesterday Assessment & Plan Assessment/Plan (1) Seizure: PLAN: Aidan HENRIK REED, ashutosh a 48 F was admitted on 07/02/2023 from [facility] for altered mental status. Per daughter she was at her baseline 6 PM the previous evening, brought to ED and had seizure-like activity and was also found to have evidence of UTI and concern for sepsis. Patient continued on Zosyn and linezolid and started on Keppra with EEG ordered and [facility] teleneurology consult. 1. Sepsis secondary to Acute Cystitis; without hematuria in the setting of C7 spinal cord injury with quadriplegia, neurogenic bladder and suprapubic catheterwith frequent UTI's - Admit to ICU for treatment for treatment of sepsis protocol under contact precautions. Continue IV Zosyn begun in the ER and continue Linezolid as previous. Give Tylenol prn for pain or fever. 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 still. Lactic acid improved from 5.7 to 1.2. Infectious diseases consulted. -07/04: Patient on broad-spectrum antibiotics, urine culture with Proteus, ID consult pending, blood cultures pending 07/05: Urine culture shows multiple organisms Pseudomonas more than 100,000 colonies GNR, GPC possible Enterococcus and GNR 2 suggestive of contamination. 07/06: CT abdomen was done. It shows large bladder stone and multiple other stones in the bladder and urethra. Patient also has a midline inserted in right basilic vein. Chronic suprapubic indwelling catheter. Plan for cystoscopy with laser lithotripsy and placement of new suprapubic catheter tomorrow under general anesthesia. Patient on Tolterodine and Vibregron 07/07: Patient going for cystoscopy as mentioned above. 2. Septic/metabolic encephalopathy arising from #1 - Continue supportive care and monitor for improvement. -07/03: Treat underlying etiology, patient still confused -07/04: Patient on broad-spectrum antibiotics, underlying etiology being treated,patient significantly improving with treatment of infection 07/05: Patient screaming and moaning. She said her abdomen is hurting all over but could not give detailed history of characteristic of abdominal pain. On exam, abdomen feels soft with increased bowel sounds. No guarding/rigidity. Started on Seroquel. 07/07: Patient is more lucid and follows simple command. 3. Suspected absence-type seizure in the ER requiring treatment with IV Ativan compounding #1 & #2 - Check EEG to confirm suspicion. Start Keppra 1g IV BID. Finally, consult [facility] teleneurology with help appreciated in advance. -07/03: On Keppra, teleneurology consult, EEG ordered. CT in ED with acute left sphenoid sinusitis but otherwise unremarkable -07/04: Patient evaluated by teleneurology, EEG with mild to moderate encephalopathy with no seizure activity, neuro recommended to pursue MRI and discontinue Keppra 07/05 patient went for MRI 07/07: MRI brain shows no evidence for acute infarct. Increased T2 flair signal in bilateral posterior parietal temporal and occipital lobes. 4. New onset abdominal pain: Abdomen is soft with generalized abdominal pain noother specific tender points. Pain medication given. Had one-time loose bowel movement. Patient having bowel movement. 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 Wound RN to see patient on-rounds in the AM with consult appreciated in advance. -07/03: Local wound care, cont linezolid -07/04: Wound care consult, ID consult, continue present management 5. Hypothyroidism - Resume Synthroid as previous and check TSH. -07/03: TSH within normal limits 6. Morbid obesity; with BMI of 42.7 this admission - Weight loss will be recommended but is unlikely given her paralysis. -07/03: Updated BMI 40.9 7. History of WPW syndrome - Noted. 8. History of RLE DVT; with listed allergies to Apixaban & Xarelto (rash) - Noted. 9. History of Left femur fracture - Noted. 10. History of cocaine and heroin abuse - Noted. 11. Depression with anxiety - Continue home medications as previous. 12. GERD - Resume PPI as previous. 13. Chronic headaches - Stable. 14. Chronic pain; on Buprenorphine patch - Continue Buprenorphine patch as previous. 15. DVT prophylaxis - Lovenox 40 mg sq BID Clinical Impression(s) from Imaging Studies Chest X-Ray 07/02/23 22:30 IMPRESSION: Poor inspiration with some bibasilar atelectasis. Cardiomegaly. Electronically Signed: Yuri Cerna MD at 23:56 EST , Brain CT 07/02/23 23:25 IMPRESSION: Normal unenhanced CT scan of the brain. Acute left sphenoid sinusitis Electronically Signed: Yuri Cerna MD at 23:45 EST , Brain MRI 07/05/23 10:00 IMPRESSION: Mild zones of increased T2 FLAIR signal in the bilateral posterior parietal and temporal occipital lobes, which can be seen with acute hypertensive encephalopathy, status epilepticus, or hypoglycemia. No evidence for acute infarct. Very mild chronic white matter changes. Electronically Signed: Mary Keller MD at 15:56 EST , KUB X-Ray 07/05/23 16:30 IMPRESSION: Normal x-ray examination of the abdomen and pelvis. Electronically Signed: David Moreno MD at 17:43 EST , Abdomen/Pelvis CT 07/06/23 10:25 IMPRESSION: Multiple stones are seen within the urinary bladder and urethra. A catheter seen within a decompressed urinary bladder. Possible tiny gallstones. Left basilar infiltrate. Findings suggestive of a linear scarring and/or atelectasis at the right lung base. Stable appearance of the right hip joint with fluid and erosive changes of the femur. Electronically Signed: Roosevelt Galvez MD at 11:35 EST , Charges/Coding Visit Charges Inpatient E&M: 62836 Subs Hosp L2 07/07/23 1402 <Electronically signed by Raad Hope MD> Cosigner Signature (if applicable): CC: ~ Signed [facility] Work Phone: 1(749) 428-540401-24-2024 Procedure [facility] 07-06-2023 Progress note Author Raad Hope [facility] July 06, 2023 4:34pm Note Date/Time July 06, 2023 4 :34pm [facility] Medical Records Department [facility] [place] [address] Progress Note - Hospitalist 07/06/23 1625 MR#: [id number] Acct: [id number] Name: HENRIK REED Rep #:[id number] : 1975 48 From: Raad Whaley PCP: Dr. Lavon Vicente MD Status:ADM I N Location: [place] [address] 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 (07/03/23) Objective Data Objective Data Vital Signs: Vital Signs Temp Pulse Resp BP Pulse Ox O2 Del Method O2 Flow Rate 97.7 F L 68 16 127/79 H 95 Room Air 2 07/06/23 14:00 07/06/23 14:00 07/06/23 14:00 07/06/23 14:00 07/06/23 14:00 07/06/23 14:16 07/06/23 04:36 Oxygen Flow Rate (L/min) 2 Oxygen Delivery Method Room Air Weight: 243 lb 6.245 oz Body Mass Index (BMI) 41.5 Intake & Output: Intake and Output for Last 24 Hours 07/04/23 07/05/23 07/06/23 23:59 23:59 23:59 Intake Total 1250 / 1250 1290 / 1530 580 / 580 Output Total 1375 / 1725 2025 / 2225 800 / 800 Balance -125 / -475 -735 / -695 -220 / -220 Lab / Micro Data 07/06/23 07:20 07/06/23 07:20 Labs: Laboratory Results - last 24 hr 07/06/23 07:20: WBC 8.3, RBC 4.53, Hgb 11.5 L, Hct 37.4, MCV 82.6, MCH 25.4 L, MCHC 30.7 L, RDW Std Deviation 47.5 H, RDW Coeff of Juan Antonio 15.8 H, Plt Count 282, MPV 9.3, Immature Gran % (Auto) 0.200, Neut % (Auto) 66.8, Lymph % (Auto) 21.7, Mower % (Auto) 6.5, Eos % (Auto) 4.0, Baso % (Auto) 0.8, Absolute Neuts (auto) 5.5, Absolute Lymphs (auto) 1.79, Nucleated RBC % 0, Sodium 141, Potassium 3.5, Chloride 110 H, Carbon Dioxide 26.0, Anion Gap 5, BUN 9, Creatinine 0.26 L, Estim Creat Clear Calc 318.08, Est GFR (MDRD) Af Amer 356, Est GFR (MDRD) Non-Af295, BUN/Creatinine Ratio 34.5 H, Glucose 92, Calcium 9.5, Total Bilirubin 0.40,AST 35, ALT 42, Alkaline Phosphatase 72, Total Protein 7.9, Albumin 3.0 L, Globulin 4.9 H, Albumin/Globulin Ratio 0.6 L Micro: Microbiology 07/03/23 02:05 Urine Catheter - Mccarthy Urine Culture - Preliminary Pseudomonas aeruginosa Pseudomonas aeruginosa#2 Enterococcus faecalis Gram negative luann 07/02/23 23:10 Urine, Catheterized Urine Culture - Final Proteus mirabilis Enterococcus faecalis 07/02/23 22:45 Blood Culture (Wb) - Arm Left Blood Culture - Preliminary No growth in 48 hours. 07/02/23 23:15 Blood Culture (Wb) - Arm Left Blood Culture - Preliminary No growth in 48 hours. 07/02/23 22:55 Mucosa - Nose SARS-CoV-2, Influenza & RSV (PCR) - Final Radiography Diagnostic Testing: Radiology Impression KUB X-Ray 07/05/23 16:30 IMPRESSION: Normal x-ray examination of the abdomen and pelvis. Electronically Signed: David Moreno MD at 17:43 EST , Abdomen/Pelvis CT 07/06/23 10:25 IMPRESSION: Multiple stones are seen within the urinary bladder and urethra. A catheter seen within a decompressed urinary bladder. Possible tiny gallstones. Left basilar infiltrate. Findings suggestive of a linear scarring and/or atelectasis at the right lung base. Stable appearance of the right hip joint with fluid and erosive changes of the femur. Electronically Signed: Roosevelt Galvez MD at 11:35 EST , Physical Exam Narrative Seen and examined. Patient looks better as compared to yesterday still has abdominal pain. No fever. KUB reviewed. CT abdomen was ordered further. It shows bladder and ureteral stones. Has indwelling suprapubic catheter. Having bowel movement. Physical exam: General: Awake. Oriented x3, Cooperative, morbid obesity BMI 41.2 kg square meter HEENT: Atraumatic, PERRLA, EOMI, Normocephalic Oral: Oral mucosa dry. No Gingival or Mucosal Lesions/ Ulcerations Neck: Supple, No JVD, Negative Carotid Bruits Lungs: Air entry diminished in bilateral lung bases. No crepitation/rhonchi Cardiovascular: Regular rate, Regular Rhythm, Normal S1, Normal S2, No murmurs Abdomen: Bowel Sounds hyper. Soft, mild tenderness but no appreciable : Indwelling suprapubic catheter. No renal angle tenderness. No suprapubic tenderness. Extremities: Slight edema, Capillary Refill Less than 3 Seconds Skin: No rashes, No breakdown Musculoskeletal: Functional quadriplegia. Could not move her legs, chronic paraplegia. No Tenderness to Palpation of Joints or Extremities Neurological: Cranial nerves II-XII grossly intact, chronic neurological deficit. Psych/Mental Status: Flat affect. Patient more quiet today as compared to yesterday Assessment & Plan Assessment/Plan (1) Seizure: PLAN: Plan HENRIK REED, is a 48 F was admitted on 07/02/2023 from [facility] for altered mental status. Per daughter she was at her baseline 6 PM the previous evening, brought to ED and had seizure-like activity and was also found to have evidence of UTI and concern for sepsis. Patient continued on Zosyn and linezolid and started on Keppra with EEG ordered and [facility] teleneurology consult. 1. Sepsis secondary to Acute Cystitis; without hematuria in the setting of C7 spinal cord injury with quadriplegia, neurogenic bladder and suprapubic catheterwith frequent UTI's - Admit to ICU for treatment for treatment of sepsis protocol under contact precautions. Continue IV Zosyn begun in the ER and continue Linezolid as previous. Give Tylenol prn for pain or fever. 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 still. Lactic acid improved from 5.7 to 1.2. Infectious diseases consulted. -07/04: Patient on broad-spectrum antibiotics, urine culture with Proteus, ID consult pending, blood cultures pending 07/05: Urine culture shows multiple organisms Pseudomonas more than 100,000 colonies GNR, GPC possible Enterococcus and GNR 2 suggestive of contamination. 07/06: CT abdomen was done. It shows large bladder stone and multiple other stones in the bladder and urethra. Patient also has a midline inserted in right basilic vein. Chronic suprapubic indwelling catheter. Plan for cystoscopy with laser lithotripsy and placement of new suprapubic catheter tomorrow under general anesthesia. Patient on Tolterodine and Vibregron 2. Septic/metabolic encephalopathy arising from #1 - Continue supportive care and monitor for improvement. -07/03: Treat underlying etiology, patient still confused -07/04: Patient on broad-spectrum antibiotics, underlying etiology being treated,patient significantly improving with treatment of infection 07/05: Patient screaming and moaning. She said her abdomen is hurting all over but could not give detailed history of characteristic of abdominal pain. On exam, abdomen feels soft with increased bowel sounds. No guarding/rigidity. Started on Seroquel. 3. Suspected absence-type seizure in the ER requiring treatment with IV Ativan compounding #1 & #2 - Check EEG to confirm suspicion. Start Keppra 1g IV BID. Finally, we will consult [facility] teleneu[facility] with help appreciated in advance. -07/03: On Keppra, teleneurology consult, EEG ordered. CT in ED with acute left sphenoid sinusitis but otherwise unremarkable -07/04: Patient evaluated by teleneurology, EEG with mild to moderate encephalopathy with no seizure activity, neuro recommended to pursue MRI and discontinue Keppra 07/05 patient went for MRI 4. New onset abdominal pain: Abdomen is soft with generalized abdominal pain noother specific tender points. Pain medication given. Had one-time loose bowel movement. Monitor if abdominal pain does not get better will need imaging CT abdomen and pelvis. 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 Wound RN to see patient on-rounds in the AM with consult appreciated in advance. -07/03: Local wound care, cont linezolid -07/04: Wound care consult, ID consult, continue present management 5. Hypothyroidism - Resume Synthroid as previous and check TSH. -07/03: TSH within normal limits 6. Morbid obesity; with BMI of 42.7 this admission - Weight loss will be recommended but is unlikely given her paralysis. -07/03: Updated BMI 40.9 7. History of WPW syndrome - Noted. 8. History of RLE DVT; with listed allergies to Apixaban & Xarelto (rash) - Noted. 9. History of Left femur fracture - Noted. 10. History of cocaine and heroin abuse - Noted. 11. Depression with anxiety - Continue home medications as previous. 12. GERD - Resume PPI as previous. 13. Chronic headaches - Stable. 14. Chronic pain; on Buprenorphine patch - Continue Buprenorphine patch as previous. 15. DVT prophylaxis - Lovenox 40 mg sq BID Charges/Coding Visit Charges Inpatient E&M: 82642 Subs Hosp L2 07/06/23 0464 <Electronically signed by Raad Hope MD> Cosigner Signature (if applicable): CC: ~ Signed [facility] Work Phone: 1(488) 231-775701-23-2024 Consult note Author Flaco Choi [facility] July 06, 2023 3:04pm Note Date/Time July 06, 2023 3 :04pm [facility] Medical Records Department [address] [place] [id number] Consultation - Urology 07/06/23 1503 MR#: [id number] Acct: [id number] Name: HENRIK REED Rep #:[id number] : 1975 48 From: Flaco Choi MD PCP: Dr. Lavon Vicente MD Status:ADM I N Location: [place] [address] HPI Consult Data Date of Consult: 07/06/23 HPI Narrative Reason for Consultation: Bladder stones HPI Narrative: HENRIK REED, is a 48 F who presents To the hospital just multiple medical problems she has a chronic suprapubic tube she has large stones in her bladder that are probably at night is for infection. I put her on the schedule for tomorrow under general anesthesia if okay with hospitalist service for cystoscopy laser lithotripsy of stones in her bladder and placement of a new suprapubic catheter. And peeled midnight will get consent from the patient and add on for tomorrow for the operating room to laser the bladder stones. [facility] Medical History Abnormal EKG Chronic headaches Chronic pain Cocaine abuse Deep vein thrombosis of right lower extremity Depression Exogenous obesity Heroin use History of Xoemz-Uvedjbaeq-Mlgkb (WPW) syndrome Hx: UTI (urinary tract infection) Hypothyroidism Left femoral shaft fracture Malnutrition of mild degree Neuromuscular dysfunction of bladder Paraplegia Pre-operative cardiovascular exam, new EKG abnormalities c/w ischemia Quadriparesis Right ischial pressure sore, stage 4 Spinal cord injury (2010) Suprapubic catheter Home Medications levothyroxine 75 mcg tablet 75 mcg PO DAILY hypothyroidism 05/28/15 [History Last Taken 04/22/21] duloxetine 60 mg capsule,delayed release 90 mg PO QHS depression 08/21/15 [History Last Taken 04/21/21] baclofen 10 mg tablet 40 mg PO Q6H SPASMS 08/16/16 [History Last Taken 04/22/21] acetaminophen 325 mg tablet 650 mg PO Q4H PRN PRN Pain or fever 03/01/18 [History Last Taken 04/21/21] bisacodyl 10 mg rectal suppository 10 mg [place] QHS PRN Constipation 03/01/18 [History Last Taken 04/21/21] omeprazole 20 mg capsule,delayed release 20 mg PO LUNCH GERD 03/01/18 [History Last Taken 04/22/21] furosemide 40 mg tablet 40 mg PO BREAKFAST edema 05/26/18 [History Last Taken 04/22/21] sennosides 8.6 mg tablet 17.2 mg PO BID constipation 08/16/18 [History Last Taken 04/22/21] cholecalciferol (vitamin D3) 50 mcg (2,000 unit) capsule 2,000 unit PO LUNCH SUPPLEMENT 08/08/19 [History Last Taken 04/22/21] polyethylene glycol 3350 17 gram oral powder packet 17 gm PO QHS constipation 08/08/19 [History Last Taken 04/21/21] docusate sodium 100 mg capsule (Colace) 200 mg PO BID constipation 10/11/20 [History Last Taken 04/21/21] furosemide 20 mg tablet 20 mg PO LUNCH edema 04/21/21 [History Last Taken 04/22/21] gabapentin 800 mg tablet 1,600 mg PO TID NEUROPATHY 04/22/21 [History Last Taken 04/22/21] isosorbide mononitrate 30 mg tablet,extended release 24 hr 30 mg PO QHS angina 04/22/21 [History Last Taken 04/21/21] oxybutynin chloride 10 mg tablet,extended release 24 hr 30 mg PO DAILY Bladder spasms 04/22/21 [History Last Taken 04/22/21] potassium chloride 10 mEq capsule,extended release 10 meq PO LUNCH hypokalemia 04/22/21 [History Last Taken 04/22/21] phenazopyridine 200 mg tablet (Pyridium) 200 mg PO TID PRN Bladder Spasms 05/27/21 [History Last Taken Unknown] loperamide 2 mg tablet 1 mg PO Q4H PRN Diarrhea 06/03/22 [History Last Taken Unknown] magnesium hydroxide 400 mg/5 mL oral suspension (Milk of Magnesia) 30 ml PO DAILY PRN Constipation 06/03/22 [History Last Taken Unknown] melatonin 5 mg tablet 5 mg PO QHS insomnia 06/03/22 [History Last Taken Unknown] mirtazapine 30 mg tablet 15 mg PO QHS insomnia 06/03/22 [History Last Taken Unknown] ondansetron HCl 4 mg tablet 4 mg PO Q4H PRN Nausea 06/03/22 [History Last Taken Unknown] simethicone 80 mg tablet 80 mg PO DAILY PRN Gastric Reflux 06/03/22 [History Last Taken Unknown] buprenorphine 15 mcg/hour weekly transdermal patch (Butrans) 20 mcg transdermal Q7D pain 09/12/22 [History Last Taken 07/01/23] cetirizine 10 mg tablet 10 mg PO QPM allergies 09/12/22 [History Last Taken Unknown] nystatin 100,000 unit/gram topical powder (Nyamyc) 1 applic topical BID #15 grams 11/16/22 [Rx Last Taken Unknown] benzonatate 100 mg capsule 100 mg PO Q6H PRN 07/02/23 [History Last Taken Unknown] buspirone 10 mg tablet 10 mg PO BID 07/02/23 [History Last Taken Unknown] cetirizine 10 mg capsule (All Day Allergy (cetirizine)) 10 mg PO DAILY PRN allergies 07/02/23 [History Last Taken Unknown] diphenhydramine HCl 25 mg tablet (Allergy (diphenhydramine)) 50 mg PO Q8H PRN itching 07/02/23 [History Last Taken Unknown] ibuprofen 200 mg tablet (Advil) 400 mg PO Q6H 07/02/23 [History Last Taken Unknown] linaclotide 145 mcg capsule (Linzess) 145 mcg PO LUNCH constipation 07/02/23 [History Last Taken Unknown] mirabegron 25 mg tablet,extended release 24 hr (Myrbetriq) 25 mg PO LUNCH 07/02/23 [History Last Taken Unknown] paroxetine HCl 10 mg tablet 20 mg PO QHS 07/02/23 [History Last Taken Unknown] trazodone 50 mg tablet 50 mg PO QHS 07/02/23 [History Last Taken Unknown] piperacillin-tazobactam 3.375 gram intravenous solution 3.375 g IV Q8H 4 days 07/06/23 [Rx Last Taken Unknown] Allergy/AdvReac Type Severity Reaction Status Date / Time apixaban [From Eliquis] Allergy Rash Verified 07/02/23 22:41 coconut oil Allergy cant breath Verified 07/02/23 22:41 mometasone furoate Allergy Rash Verified 07/02/23 22:41 [From Elocon] nitrofurantoin Allergy Unknown Verified 07/02/23 22:41 rivaroxaban [From Xarelto] Allergy Rash Verified 07/02/23 22:41 Sulfa (Sulfonamide Allergy Shortness Verified 07/02/23 22:41 Antibiotics) of breath Penicillins AdvReac NEEDS Verified 07/02/23 22:41 FOLLOW-UP Family History Mother Diabetes Grandfather CAD (coronary artery disease) Colon cancer Grandmother Breast cancer Aunt Ovarian cancer Surgical History History of tracheostomy (2010) Social History Smoking Status: Never smoker Lab / Micro Data 07/06/23 07:20 07/06/23 07:20 Labs: Laboratory Results - last 24 hr 07/06/23 07:20: WBC 8.3, RBC 4.53, Hgb 11.5 L, Hct 37.4, MCV 82.6, MCH 25.4 L, MCHC 30.7 L, RDW Std Deviation 47.5 H, RDW Coeff of Juan Antonio 15.8 H, Plt Count 282, MPV 9.3, Immature Gran % (Auto) 0.200, Neut % (Auto) 66.8, Lymph % (Auto) 21.7, Mower % (Auto) 6.5, Eos % (Auto) 4.0, Baso % (Auto) 0.8, Absolute Neuts (auto) 5.5, Absolute Lymphs (auto) 1.79, Nucleated RBC % 0, Sodium 141, Potassium 3.5, Chloride 110 H, Carbon Dioxide 26.0, Anion Gap 5, BUN 9, Creatinine 0.26 L, Estim Creat Clear Calc 318.08, Est GFR (MDRD) Af Amer 356, Est GFR (MDRD) Non-Af295, BUN/Creatinine Ratio 34.5 H, Glucose 92, Calcium 9.5, Total Bilirubin 0.40,AST 35, ALT 42, Alkaline Phosphatase 72, Total Protein 7.9, Albumin 3.0 L, Globulin 4.9 H, Albumin/Globulin Ratio 0.6 L Micro: Microbiology 07/03/23 02:05 Urine Catheter - Mccarthy Urine Culture - Preliminary Pseudomonas aeruginosa Pseudomonas aeruginosa#2 Enterococcus faecalis Gram negative luann 07/02/23 23:10 Urine, Catheterized Urine Culture - Final Proteus mirabilis Enterococcus faecalis 07/02/23 22:45 Blood Culture (Wb) - Arm Left Blood Culture - Preliminary No growth in 48 hours. 07/02/23 23:15 Blood Culture (Wb) - Arm Left Blood Culture - Preliminary No growth in 48 hours. Imagaing Radiology Impression Brain MRI 07/05/23 10:00 IMPRESSION: Mild zones of increased T2 FLAIR signal in the bilateral posterior parietal and temporal occipital lobes, which can be seen with acute hypertensive encephalopathy, status epilepticus, or hypoglycemia. No evidence for acute infarct. Very mild chronic white matter changes. Electronically Signed: Mary Keller MD at 15:56 EST , KUB X-Ray 07/05/23 16:30 IMPRESSION: Normal x-ray examination of the abdomen and pelvis. Electronically Signed: David Moreno MD at 17:43 EST , Abdomen/Pelvis CT 07/06/23 10:25 IMPRESSION: Multiple stones are seen within the urinary bladder and urethra. A catheter seen within a decompressed urinary bladder. Possible tiny gallstones. Left basilar infiltrate. Findings suggestive of a linear scarring and/or atelectasis at the right lung base. Stable appearance of the right hip joint with fluid and erosive changes of the femur. Electronically Signed: Roosevelt Galvez MD at 11:35 EST , 07/06/23 1504 <Electronically signed by Flaco Choi MD> Cosigner Signature (if applicable): CC: Wendy Correa; Margarita Cortez; Jonna Mansfield; Urbano Wagner; Alana Cavazos MD;Harper Quach MD; Tyrell Rodriguez MD; Dulce Livingston MD; Dr. Kendy Mccarthy MD; Dr. Renzo De Paz DO; Dr. Javier Alfredo MD; Dr. Shelly Frenandez MD; Dr. Roman Saunders MD; Dr. John Minor MD; Dr. Flaco Choi MD; Dr. Keven Joseph DO; Dr. Fernando Salcedo MD; Dr. Jes Dumont MD; Dr. Shari Pastor MD; Dr. Lavon Vicente MD; Dr. Duane Reyna MD; Dr. Paul Walsh MD; Dr. Jono Sharp MD; Dr. Heidi Carmona MD; Beba Lewis MD; Yaya Neff MD; Anabell Patterson DO; Navjot Meadows MD; Jacklyn Queen DO; Klaudia Mercado MD~ Signed [facility] Work Phone: 1(548) 990-237101-23-2024 Procedure [facility] 07-06-2023 Progress note Author Paul [facility] July 06, 2023 10:28am Note Date/Time July 06, 2023 1 0:28am [facility] Medical Records Department [address] [place] [address] Progress Note - Infect Disease 07/06/23 1025 MR#: [id number] Acct: [id number] Name: HENRIK REED Rep #:[id number] : 1975 48 From: Paul kapadia MD PCP: Dr. Lavon Vicente MD Status:ADM I N Location: [place] [address] Physical Exam Narrative C/o moderate abd pain, no fever, no back pain Const alert and no apparent distress Resp normal air movement and clear to auscultation bilaterally Cardio regular rate and regular rhythm GI soft to palpation and non-distended Palpation: tender Skin no rashes or lesions noted ID ID: Route of nutrition/ use of supplements: [] Nutritional Intake: [] IV Site: [] Mccarthy Catheter: [] Assessment & Plan Assessment/Plan (1) VRE infection (vancomycin resistant Enterococcus): (2) UTI (urinary tract infection): QUALIFIERS: Urinary tract infection type: acute cystitis Hematuria presence: without hematuria Qualified Code(s): N30.00 - Acute cystitis without hematuria PLAN: Ucx with enterococcus, PsA x2, GNR, proteus. H/o VRE. Will stop linezolid, cont zosyn. Will order midline. With worsened abd pain, will check CT. Will follow 07/06/23 1028 <Electronically signed by Paul Walsh MD> Cosigner Signature (if applicable): CC: ~ Signed [facility] Work Phone: 1(392) 252-324601-22-2024 Consult note Author Paul [facility] July 05, 2023 3:18pm Note Date/Time July 05, 2023 3 :19pm [facility] Medical Records Department [address] [place] [address] Consultation - Infectious Dx 07/05/23 1516 MR#: [id number] Acct: [id number] Name: HENRIK REED Rep #:[id number] : 1975 48 From: Paul kapadia MD PCP: Dr. Lavon Vicente MD Status:ADM I N Location: [place] [address] Assessment & Plan Assessment/Plan (1) VRE infection (vancomycin resistant Enterococcus): (2) UTI (urinary tract infection): QUALIFIERS: Urinary tract infection type: acute cystitis Hematuria presence: without hematuria Qualified Code(s): N30.00 - Acute cystitis without hematuria PLAN: Ucx with enterococcus, PsA-like, GNR x2. H/o VRE. On linezolid/zosyn, improving, will continue. Will follow, thank you HPI Consult Data Date of Consult: 07/05/23 HPI Narrative Reason for Consultation: uti HPI Narrative: HENRIK REED, is a 48 F with quadriplegia, suprapubic catheter, recurrent uti, presented 07/02 with altered mental status. She does not recall what happened or when she got sick. Denies fever or chills, no abd pain. Admitted, now on zosyn and linezolid, feeling better. Full ROS performed and neg except as noted above. [facility] Medical History Abnormal EKG Chronic headaches Chronic pain Cocaine abuse Deep vein thrombosis of right lower extremity Depression Exogenous obesity Heroin use History of Fanxn-Omnxvnkur-Gccuq (WPW) syndrome Hx: UTI (urinary tract infection) Hypothyroidism Left femoral shaft fracture Malnutrition of mild degree Neuromuscular dysfunction of bladder Paraplegia Pre-operative cardiovascular exam, new EKG abnormalities c/w ischemia Quadriparesis Right ischial pressure sore, stage 4 Spinal cord injury (2010) Suprapubic catheter Home Medications levothyroxine 75 mcg tablet 75 mcg PO DAILY hypothyroidism 05/28/15 [History Last Taken 04/22/21] duloxetine 60 mg capsule,delayed release 90 mg PO QHS depression 08/21/15 [History Last Taken 04/21/21] baclofen 10 mg tablet 40 mg PO Q6H SPASMS 08/16/16 [History Last Taken 04/22/21] acetaminophen 325 mg tablet 650 mg PO Q4H PRN PRN Pain or fever 03/01/18 [History Last Taken 04/21/21] bisacodyl 10 mg rectal suppository 10 mg [place] QHS PRN Constipation 03/01/18 [History Last Taken 04/21/21] omeprazole 20 mg capsule,delayed release 20 mg PO LUNCH GERD 03/01/18 [History Last Taken 04/22/21] furosemide 40 mg tablet 40 mg PO BREAKFAST edema 05/26/18 [History Last Taken 04/22/21] sennosides 8.6 mg tablet 17.2 mg PO BID constipation 08/16/18 [History Last Taken 04/22/21] cholecalciferol (vitamin D3) 50 mcg (2,000 unit) capsule 2,000 unit PO LUNCH SUPPLEMENT 08/08/19 [History Last Taken 04/22/21] polyethylene glycol 3350 17 gram oral powder packet 17 gm PO QHS constipation 08/08/19 [History Last Taken 04/21/21] docusate sodium 100 mg capsule (Colace) 200 mg PO BID constipation 10/11/20 [History Last Taken 04/21/21] furosemide 20 mg tablet 20 mg PO LUNCH edema 04/21/21 [History Last Taken 04/22/21] gabapentin 800 mg tablet 1,600 mg PO TID NEUROPATHY 04/22/21 [History Last Taken 04/22/21] isosorbide mononitrate 30 mg tablet,extended release 24 hr 30 mg PO QHS angina 04/22/21 [History Last Taken 04/21/21] oxybutynin chloride 10 mg tablet,extended release 24 hr 30 mg PO DAILY Bladder spasms 04/22/21 [History Last Taken 04/22/21] potassium chloride 10 mEq capsule,extended release 10 meq PO LUNCH hypokalemia 04/22/21 [History Last Taken 04/22/21] phenazopyridine 200 mg tablet (Pyridium) 200 mg PO TID PRN Bladder Spasms 05/27/21 [History Last Taken Unknown] loperamide 2 mg tablet 1 mg PO Q4H PRN Diarrhea 06/03/22 [History Last Taken Unknown] magnesium hydroxide 400 mg/5 mL oral suspension (Milk of Magnesia) 30 ml PO DAILY PRN Constipation 06/03/22 [History Last Taken Unknown] melatonin 5 mg tablet 5 mg PO QHS insomnia 06/03/22 [History Last Taken Unknown] mirtazapine 30 mg tablet 15 mg PO QHS insomnia 06/03/22 [History Last Taken Unknown] ondansetron HCl 4 mg tablet 4 mg PO Q4H PRN Nausea 06/03/22 [History Last Taken Unknown] simethicone 80 mg tablet 80 mg PO DAILY PRN Gastric Reflux 06/03/22 [History Last Taken Unknown] buprenorphine 15 mcg/hour weekly transdermal patch (Butrans) 20 mcg transdermal Q7D pain 09/12/22 [History Last Taken 07/01/23] cetirizine 10 mg tablet 10 mg PO QPM allergies 09/12/22 [History Last Taken Unknown] linezolid 600 mg tablet 600 mg PO BID 7 days #14 tabs 11/16/22 [Rx Last Taken Unknown] nystatin 100,000 unit/gram topical powder (Nyamyc) 1 applic topical BID #15 grams 11/16/22 [Rx Last Taken Unknown] benzonatate 100 mg capsule 100 mg PO Q6H PRN 07/02/23 [History Last Taken Unknown] buspirone 10 mg tablet 10 mg PO BID 07/02/23 [History Last Taken Unknown] cetirizine 10 mg capsule (All Day Allergy (cetirizine)) 10 mg PO DAILY PRN allergies 07/02/23 [History Last Taken Unknown] diphenhydramine HCl 25 mg tablet (Allergy (diphenhydramine)) 50 mg PO Q8H PRN itching 07/02/23 [History Last Taken Unknown] fosfomycin tromethamine 3 gram oral packet 3 g PO X1 07/02/23 [History Last Taken Unknown] ibuprofen 200 mg tablet (Advil) 400 mg PO Q6H 07/02/23 [History Last Taken Unknown] linaclotide 145 mcg capsule (Linzess) 145 mcg PO LUNCH constipation 07/02/23 [History Last Taken Unknown] mirabegron 25 mg tablet,extended release 24 hr (Myrbetriq) 25 mg PO LUNCH 07/02/23 [History Last Taken Unknown] paroxetine HCl 10 mg tablet 20 mg PO QHS 07/02/23 [History Last Taken Unknown] trazodone 50 mg tablet 50 mg PO QHS 07/02/23 [History Last Taken Unknown] Allergy/AdvReac Type Severity Reaction Status Date / Time apixaban [From Eliquis] Allergy Rash Verified 07/02/23 22:41 coconut oil Allergy cant breath Verified 07/02/23 22:41 mometasone furoate Allergy Rash Verified 07/02/23 22:41 [From Elocon] nitrofurantoin Allergy Unknown Verified 07/02/23 22:41 rivaroxaban [From Xarelto] Allergy Rash Verified 07/02/23 22:41 Sulfa (Sulfonamide Allergy Shortness Verified 07/02/23 22:41 Antibiotics) of breath Penicillins AdvReac NEEDS Verified 07/02/23 22:41 FOLLOW-UP Family History Mother Diabetes Grandfather CAD (coronary artery disease) Colon cancer Grandmother Breast cancer Aunt Ovarian cancer Surgical History History of tracheostomy (2010) Social History Smoking Status: Never smoker Physical Exam Const alert, oriented x3 and no apparent distress General Appearance: cooperative HEENT normocephalic and head/scalp atraumatic Eyes PERRL and EOMs intact bilaterally Neck supple and No nodes Resp normal air movement and clear to auscultation bilaterally Cardio regular rate and regular rhythm GI soft to palpation, non-tender and non-distended Extremity General Extremity: Negative for edema Skin no rashes or lesions noted Neuro CN's II-XII intact bilaterally Lab / Micro Data Attestation: I reviewed the patient's lab results. 07/05/23 03:50 07/05/23 03:50 Labs: Laboratory Results - last 24 hr 07/04/23 16:57: Sodium 142, Potassium 4.1, Chloride 112 H, Carbon Dioxide 26.0, Anion Gap 4 L, BUN 5 L, Creatinine 0.30 L, Estim Creat Clear Calc 272.52, Est GFR (MDRD) Af Amer 304, Est GFR (MDRD) Non-Af 251, BUN/Creatinine Ratio 16.7, Glucose 138 H, Calcium 9.2 07/05/23 03:50: WBC 11.3 H, RBC 4.20, Hgb 10.7 L, Hct 34.8 L, MCV 82.9, MCH 25.5L, MCHC 30.7 L, RDW Std Deviation 48.3 H, RDW Coeff of Juan Antonio 16.0 H, Plt Count 337, MPV 9.3, Immature Gran % (Auto) 0.400, Neut % (Auto) 55.0, Lymph % (Auto) 33.4, Mower % (Auto) 7.5, Eos % (Auto) 3.1, Baso % (Auto) 0.6, Absolute Neuts (auto) 6.2, Absolute Lymphs (auto) 3.76, Nucleated RBC % 0, Sodium 140, Potassium 3.7, Chloride 109 H, Carbon Dioxide 25.0, Anion Gap 6, BUN 6 L, Creatinine 0.32 L, Estim Creat Clear Calc 256.42, Est GFR (MDRD) Af Amer 284, Est GFR (MDRD) Non-Af 235, BUN/Creatinine Ratio 18.9, Glucose 121 H, Calcium 8.9, Total Bilirubin 0.50, AST 31, ALT 36, Alkaline Phosphatase 83, Total Protein 7.9, Albumin 3.1 L, Globulin 4.8 H, Albumin/Globulin Ratio 0.6 L Micro: Microbiology 07/02/23 22:45 Blood Culture (Wb) - Arm Left Blood Culture - Preliminary No growth in 48 hours. 07/02/23 23:15 Blood Culture (Wb) - Arm Left Blood Culture - Preliminary No growth in 48 hours. 07/02/23 23:10 Urine, Catheterized Urine Culture - Preliminary Proteus mirabilis GPC Poss Enterococcus sp 07/03/23 02:05 Urine Catheter - Mccarthy Urine Culture - Preliminary Pseudomonas aeruginosa Gram negative luann GPC Poss Enterococcus sp Gram negative luann#2 07/05/23 8068 <Electronically signed by Paul Walsh MD> Cosigner Signature (if applicable): CC: Wendy Correa; Margarita Cortez; Jonna Mansfield; Urbano Wagner; Alana Cavazos MD;Harper Quach MD; Tyrell Rodriguez MD; Dulce Livingston MD; Dr. Kendy Mccarthy MD; Dr. Renzo De Paz DO; Dr. Javier Alfredo MD; Dr. Shelly Fernandez MD; Dr. Roman Saunders MD; Dr. John Minor MD; Dr. Keven Joseph DO; Dr. Fernando Salcedo MD; Dr. Jes Dumont MD; Dr. Shari Pastor MD; Dr. Lavon Vicente MD; Dr. Duane Reyna MD; Dr. Paul Walsh MD; Dr. Jono Sharp MD; Dr. Heidi Carmona MD; Beba Lewis MD; Yaya Neff MD; Anabell Patterson DO; MD Woody; Jacklyn Queen DO; Klaudia Mercado MD~ Signed [facility] Work Phone: 1(633) 660-342001-22-2024 Progress note Author Raad [facility] July 05, 2023 2:43pm Note Date/Time July 05, 2023 9 :18am [facility] Medical Records Department [address] [place] [address] Progress Note - Hospitalist 07/05/23912 MR#: [id number] Acct: [id number] Name: HENRIK REED Rep #:[id number] : 1975 48 From: Raad Whaley PCP: Dr. Lavon Vicente MD Status:ADM I N Location: [place] [address] Reason for Visit Reason for Visit: Diagnoses Sepsis, unspecified organism (07/03/23) Unspecified convulsions (07/03/23) Objective Data Objective Data Vital Signs: Vital Signs Temp Pulse Resp BP Pulse Ox O2 Del Method O2 Flow Rate 98 F 66 16 190/119 H 95 Room Air 2 07/05/23 08:10 07/05/23 08:10 07/05/23 08:10 07/05/23 08:10 07/05/23 08:10 07/05/23 08:10 07/04/23 07:00 Oxygen Flow Rate (L/min) 2 Oxygen Delivery Method Room Air Weight: 240 lb 1.334 oz Body Mass Index (BMI) 41.0 Intake & Output: Intake and Output for Last 24 Hours 07/03/23 07/04/23 07/05/23 23:59 23:59 23:59 Intake Total 6030 / 6030 1250 / 1250 590 / 590 Output Total 3150 / 3150 1375 / 1725 625 / 625 Balance 2880 / 2880 -125 / -475 -35 / -35 Lab / Micro Data 07/05/23 03:50 07/05/23 03:50 Labs: Laboratory Results - last 24 hr 07/04/23 16:57: Sodium 142, Potassium 4.1, Chloride 112 H, Carbon Dioxide 26.0, Anion Gap 4 L, BUN 5 L, Creatinine 0.30 L, Estim Creat Clear Calc 272.52, Est GFR (MDRD) Af Amer 304, Est GFR (MDRD) Non-Af 251, BUN/Creatinine Ratio 16.7, Glucose 138 H, Calcium 9.2 07/05/23 03:50: WBC 11.3 H, RBC 4.20, Hgb 10.7 L, Hct 34.8 L, MCV 82.9, MCH 25.5L, MCHC 30.7 L, RDW Std Deviation 48.3 H, RDW Coeff of Juan Antonio 16.0 H, Plt Count 337, MPV 9.3, Immature Gran % (Auto) 0.400, Neut % (Auto) 55.0, Lymph % (Auto) 33.4, Mower % (Auto) 7.5, Eos % (Auto) 3.1, Baso % (Auto) 0.6, Absolute Neuts (auto) 6.2, Absolute Lymphs (auto) 3.76, Nucleated RBC % 0, Sodium 140, Potassium 3.7, Chloride 109 H, Carbon Dioxide 25.0, Anion Gap 6, BUN 6 L, Creatinine 0.32 L, Estim Creat Clear Calc 256.42, Est GFR (MDRD) Af Amer 284, Est GFR (MDRD) Non-Af 235, BUN/Creatinine Ratio 18.9, Glucose 121 H, Calcium 8.9, Total Bilirubin 0.50, AST 31, ALT 36, Alkaline Phosphatase 83, Total Protein 7.9, Albumin 3.1 L, Globulin 4.8 H, Albumin/Globulin Ratio 0.6 L Micro: Microbiology 07/03/23 02:05 Urine Catheter - Mccarthy Urine Culture - Preliminary Pseudomonas aeruginosa Gram negative luann GPC Poss Enterococcus sp Gram negative luann#2 07/02/23 23:10 Urine, Catheterized Urine Culture - Preliminary Proteus mirabilis 07/02/23 22:55 Mucosa - Nose SARS-CoV-2, Influenza & RSV (PCR) - Final Physical Exam Narrative Seen and examined. Nurse told me that patient is having severe abdominal pain. When asked questions he said it is all over diffuse. The pain started about last night, 10/10 intensity, cramping in nature and patient could not state the initial starting location of abdominal pain. She also had one-time loose bowel movement. No bloody bowel movement Physical exam: General: Alert, Oriented x3, Cooperative, morbid obesity BMI 41.2 kg square meter HEENT: Atraumatic, PERRLA, EOMI, Normocephalic Oral: Oral mucosa dry. No Gingival or Mucosal Lesions/ Ulcerations Neck: Supple, No JVD, Negative Carotid Bruits Lungs: Air entry diminished in bilateral lung bases. No crepitation/rhonchi Cardiovascular: Regular rate, Regular Rhythm, Normal S1, Normal S2, No murmurs Abdomen: Bowel Sounds hyper. Soft, mild tenderness but no appreciable : No renal angle tenderness. No suprapubic tenderness. Extremities: Slight edema, Capillary Refill Less than 3 Seconds Skin: No rashes, No breakdown Musculoskeletal: Functional quadriplegia. Could not move her legs, chronic paraplegia. No Tenderness to Palpation of Joints or Extremities Neurological: Cranial nerves II-XII grossly intact, chronic neurological deficit. Psych/Mental Status: Normal Affect, Appropriate. Assessment & Plan Assessment/Plan (1) Seizure: PLAN: Plan HENRIK REED, is a 48 F was admitted on 07/02/2023 from [facility] for altered mental status. Per daughter she was at her baseline 6 PM the previous evening, brought to ED and had seizure-like activity and was also found to have evidence of UTI and concern for sepsis. Patient continued on Zosyn and linezolid and started on Keppra with EEG ordered and [facility] teleneurology consult. 1. Sepsis secondary to Acute Cystitis; without hematuria in the setting of C7 spinal cord injury with quadriplegia, neurogenic bladder and suprapubic catheterwith frequent UTI's - Admit to ICU for treatment for treatment of sepsis protocol under contact precautions. Continue IV Zosyn begun in the ER and continue Linezolid as previous. Give Tylenol prn for pain or fever. 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 still. Lactic acid improved from 5.7 to 1.2. Infectious diseases consulted. -07/04: Patient on broad-spectrum antibiotics, urine culture with Proteus, ID consult pending, blood cultures pending 07/05: Urine culture shows multiple organisms Pseudomonas more than 100,000 colonies GNR, GPC possible Enterococcus and GNR 2 suggestive of contamination. 2. Septic/metabolic encephalopathy arising from #1 - Continue supportive care and monitor for improvement. -07/03: Treat underlying etiology, patient still confused -07/04: Patient on broad-spectrum antibiotics, underlying etiology being treated,patient significantly improving with treatment of infection 07/05: Patient screaming and moaning. She said her abdomen is hurting all over but could not give detailed history of characteristic of abdominal pain. On exam, abdomen feels soft with increased bowel sounds. No guarding/rigidity. Started on Seroquel. 3. Suspected absence-type seizure in the ER requiring treatment with IV Ativan compounding #1 & #2 - Check EEG to confirm suspicion. Start Keppra 1g IV BID. Finally, we will consult [facility] teleneurology with help appreciated in advance. -07/03: On Keppra, teleneurology consult, EEG ordered. CT in ED with acute left sphenoid sinusitis but otherwise unremarkable -07/04: Patient evaluated by teleneurology, EEG with mild to moderate encephalopathy with no seizure activity, neuro recommended to pursue MRI and discontinue Keppra 07/05 patient went for MRI 4. New onset abdominal pain: Abdomen is soft with generalized abdominal pain noother specific tender points. Pain medication given. Had one-time loose bowel movement. Monitor if abdominal pain does not get better will need imaging CT abdomen and pelvis. 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 Wound RN to see patient on-rounds in the AM with consult appreciated in advance. -07/03: Local wound care, cont linezolid -07/04: Wound care consult, ID consult, continue present management 5. Hypothyroidism - Resume Synthroid as previous and check TSH. -07/03: TSH within normal limits 6. Morbid obesity; with BMI of 42.7 this admission - Weight loss will be recommended but is unlikely given her paralysis. -07/03: Updated BMI 40.9 7. History of WPW syndrome - Noted. 8. History of RLE DVT; with listed allergies to Apixaban & Xarelto (rash) - Noted. 9. History of Left femur fracture - Noted. 10. History of cocaine and heroin abuse - Noted. 11. Depression with anxiety - Continue home medications as previous. 12. GERD - Resume PPI as previous. 13. Chronic headaches - Stable. 14. Chronic pain; on Buprenorphine patch - Continue Buprenorphine patch as previous. 15. DVT prophylaxis - Lovenox 40 mg sq BID Charges/Coding Visit Charges Inpatient E&M: 89804 Subs Hosp L2 07/05/23 1443 <Electronically signed by Raad Hope MD> Cosigner Signature (if applicable): CC: ~ Signed [facility] Work Phone: 1(399) 962-878201-22-2024 Progress note Author Francisco Pitts [facility] July 05, 2023 11:33am Note Date/Time July 05, 2023 8 :19am [facility] Medical Records Department [address] [place] [id number] Progress Note - Physician President 07/05/23 0819 MR#: [id number] Acct: [id number] Name: HENRIK REED Rep #:[id number] : 1975 48 From: Francisco Pitts DO PCP: Dr. Lavon Vicente MD Status:ADM I N Location: [place] [address] Assessment & Plan Assessment/Plan (1) Sepsis: PLAN: Plan RECOMMENDATIONS: 1. Continue antibiotics, pending finalized culture results. 2. Continue baclofen per home regimen. 3. Encourage incentive spirometer use while in bed. 4. Will sign off from a critical care perspective. Please call with any additional questions. IMPRESSIONS: 1. Sepsis The patient presented to the hospital with sepsis due to probable urinary tract source of infection with acute sepsis related organ dysfunction as evidenced by altered mental status and lactic acidemia. She did receive supplemental IV fluid hydration and remains hemodynamically stable at the present time. There is no need for vasopressor support. The patient's mentation has improved with supportive care. Plan to continue antimicrobials, pending finalized culture results. 2. Encephalopathy Clinical concern for underlying sepsis as precipitating etiology. However, there was some concern documented in the emergency department about potential seizure activity. The patient does not have any pre-existing epilepsy diagnosis. She was treated with IV Ativan and started on Keppra. Although the patient was seen by neurology, her mental status has improved with supportive care, including antibiotics. 3. History of pressure ulcer with osteomyelitis/hypothyroidism/history of DVT/depression/anxiety/chronic pain syndrome Complicates care, management, recovery and prognosis. Continue current supportive care as noted above. This note was generated with [employer] dictation software. It may contain incorrectwords, spelling, and punctuation that were not noted in checking the note beforesigning. Subjective Subjective The patient was seen and examined at the bedside this morning. Events from the last 24 hours have been reviewed. The patient is currently afebrile, hemodynamically stable and maintaining appropriate oxygen saturations on room air. Morning labs are stable. Objective Data Objective Data The patient's most recent lab work, culture data and imaging studies have all been personally reviewed. Preliminary urine culture dated July 02 is demonstrating growth of Proteus mirabilis. Vital Signs: Vital Signs Temp Pulse Resp BP Pulse Ox O2 Del Method O2 Flow Rate 98 F 66 16 190/119 H 95 Room Air 2 07/05/23 08:10 07/05/23 08:10 07/05/23 08:10 07/05/23 08:10 07/05/23 08:10 07/05/23 08:10 07/04/23 07:00 Oxygen Flow Rate (L/min) 2 Oxygen Delivery Method Room Air Weight: 240 lb 1.334 oz Body Mass Index (BMI) 41.0 Intake & Output: Intake and Output for Last 24 Hours 07/03/23 07/04/23 07/05/23 23:59 23:59 23:59 Intake Total 6030 / 6030 1250 / 1250 590 / 590 Output Total 3150 / 3150 1375 / 1725 625 / 625 Balance 2880 / 2880 -125 / -475 -35 / -35 Lab / Micro Data Attestation: I reviewed the patient's lab results. 07/05/23 03:50 07/05/23 03:50 Labs: Laboratory Results - last 24 hr 07/04/23 16:57: Sodium 142, Potassium 4.1, Chloride 112 H, Carbon Dioxide 26.0, Anion Gap 4 L, BUN 5 L, Creatinine 0.30 L, Estim Creat Clear Calc 272.52, Est GFR (MDRD) Af Amer 304, Est GFR (MDRD) Non-Af 251, BUN/Creatinine Ratio 16.7, Glucose 138 H, Calcium 9.2 07/05/23 03:50: WBC 11.3 H, RBC 4.20, Hgb 10.7 L, Hct 34.8 L, MCV 82.9, MCH 25.5L, MCHC 30.7 L, RDW Std Deviation 48.3 H, RDW Coeff of Juan Antonio 16.0 H, Plt Count 337, MPV 9.3, Immature Gran % (Auto) 0.400, Neut % (Auto) 55.0, Lymph % (Auto) 33.4, Mower % (Auto) 7.5, Eos % (Auto) 3.1, Baso % (Auto) 0.6, Absolute Neuts (auto) 6.2, Absolute Lymphs (auto) 3.76, Nucleated RBC % 0, Sodium 140, Potassium 3.7, Chloride 109 H, Carbon Dioxide 25.0, Anion Gap 6, BUN 6 L, Creatinine 0.32 L, Estim Creat Clear Calc 256.42, Est GFR (MDRD) Af Amer 284, Est GFR (MDRD)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 release 90 mg PO QHS depression 08/21/15 [History Last Taken 04/21/21] baclofen 10 mg tablet 40 mg PO Q6H SPASMS 08/16/16 [History Last Taken 04/22/21] acetaminophen 325 mg tablet 650 mg PO Q4H PRN PRN Pain or fever 03/01/18 [History Last Taken 04/21/21] bisacodyl 10 mg rectal suppository 10 mg [place] QHS PRN Constipation 03/01/18 [History Last Taken 04/21/21] omeprazole 20 mg capsule,delayed release 20 mg PO LUNCH GERD 03/01/18 [History Last Taken 04/22/21] furosemide 40 mg tablet 40 mg PO BREAKFAST edema 05/26/18 [History Last Taken 04/22/21] sennosides 8.6 mg tablet 17.2 mg PO BID constipation 08/16/18 [History Last Taken 04/22/21] cholecalciferol (vitamin D3) 50 mcg (2,000 unit) capsule 2,000 unit PO LUNCH SUPPLEMENT 08/08/19 [History Last Taken 04/22/21] polyethylene glycol 3350 17 gram oral powder packet 17 gm PO QHS constipation 08/08/19 [History Last Taken 04/21/21] docusate sodium 100 mg capsule (Colace) 200 mg PO BID constipation 10/11/20 [History Last Taken 04/21/21] furosemide 20 mg tablet 20 mg PO LUNCH edema 04/21/21 [History Last Taken 04/22/21] gabapentin 800 mg tablet 1,600 mg PO TID NEUROPATHY 04/22/21 [History Last Taken 04/22/21] isosorbide mononitrate 30 mg tablet,extended release 24 hr 30 mg PO QHS angina 04/22/21 [History Last Taken 04/21/21] oxybutynin chloride 10 mg tablet,extended release 24 hr 30 mg PO DAILY Bladder spasms 04/22/21 [History Last Taken 04/22/21] potassium chloride 10 mEq capsule,extended release 10 meq PO LUNCH hypokalemia 04/22/21 [History Last Taken 04/22/21] phenazopyridine 200 mg tablet (Pyridium) 200 mg PO TID PRN Bladder Spasms 05/27/21 [History Last Taken Unknown] loperamide 2 mg tablet 1 mg PO Q4H PRN Diarrhea 06/03/22 [History Last Taken Unknown] magnesium hydroxide 400 mg/5 mL oral suspension (Milk of Magnesia) 30 ml PO DAILY PRN Constipation 06/03/22 [History Last Taken Unknown] melatonin 5 mg tablet 5 mg PO QHS insomnia 06/03/22 [History Last Taken Unknown] mirtazapine 30 mg tablet 15 mg PO QHS insomnia 06/03/22 [History Last Taken Unknown] ondansetron HCl 4 mg tablet 4 mg PO Q4H PRN Nausea 06/03/22 [History Last Taken Unknown] simethicone 80 mg tablet 80 mg PO DAILY PRN Gastric Reflux 06/03/22 [History Last Taken Unknown] buprenorphine 15 mcg/hour weekly transdermal patch (Butrans) 20 mcg transdermal Q7D pain 09/12/22 [History Last Taken 07/01/23] cetirizine 10 mg tablet 10 mg PO QPM allergies 09/12/22 [History Last Taken Unknown] linezolid 600 mg tablet 600 mg PO BID 7 days #14 tabs 11/16/22 [Rx Last Taken Unknown] nystatin 100,000 unit/gram topical powder (Nyamyc) 1 applic topical BID #15 grams 11/16/22 [Rx Last Taken Unknown] benzonatate 100 mg capsule 100 mg PO Q6H PRN 07/02/23 [History Last Taken Unknown] buspirone 10 mg tablet 10 mg PO BID 07/02/23 [History Last Taken Unknown] cetirizine 10 mg capsule (All Day Allergy (cetirizine)) 10 mg PO DAILY PRN allergies 07/02/23 [History Last Taken Unknown] diphenhydramine HCl 25 mg tablet (Allergy (diphenhydramine)) 50 mg PO Q8H PRN itching 07/02/23 [History Last Taken Unknown] fosfomycin tromethamine 3 gram oral packet 3 g PO X1 07/02/23 [History Last Taken Unknown] ibuprofen 200 mg tablet (Advil) 400 mg PO Q6H 07/02/23 [History Last Taken Unknown] linaclotide 145 mcg capsule (Linzess) 145 mcg PO LUNCH constipation 07/02/23 [History Last Taken Unknown] mirabegron 25 mg tablet,extended release 24 hr (Myrbetriq) 25 mg PO LUNCH 07/02/23 [History Last Taken Unknown] paroxetine HCl 10 mg tablet 20 mg PO QHS 07/02/23 [History Last Taken Unknown] trazodone 50 mg tablet 50 mg PO QHS 07/02/23 [History Last Taken Unknown] Allergy/AdvReac Type Severity Reaction Status Date / Time apixaban [From Eliquis] Allergy Rash Verified 07/02/23 22:41 coconut oil Allergy cant breath Verified 07/02/23 22:41 mometasone furoate Allergy Rash Verified 07/02/23 22:41 [From Elocon] nitrofurantoin Allergy Unknown Verified 07/02/23 22:41 rivaroxaban [From Xarelto] Allergy Rash Verified 07/02/23 22:41 Sulfa (Sulfonamide Allergy Shortness Verified 07/02/23 22:41 Antibiotics) of breath Penicillins AdvReac NEEDS Verified 07/02/23 22:41 FOLLOW-UP Family History Mother Diabetes Grandfather CAD (coronary artery disease) Colon cancer Grandmother Breast cancer Aunt Ovarian cancer Surgical History History of tracheostomy (2010) Social History Smoking Status: Never smoker ROS ROS Narrative Patient is confused with septic encephalopathy at this time. Therefore, she cannot complete a ROS at this time. Review of Systems ROS Unobtainable: due to encephalopathy Vital Signs Vital Signs Vital Signs: 07/02/23 22:22 07/02/23 23:13 07/02/23 23:14 Temperature 98.0 F Temperature Source Temporal Pulse Rate 87 132 H Respiratory Rate 16 26 H Blood Pressure 186/104 H Blood Pressure Mean 131 Pulse Ox 97 96 Oxygen Delivery Method Room Air Nasal Cannula Nasal Cannula Oxygen Flow Rate (L/min) 4 2 Weight Weight: 248 lb 14.43 oz Body Mass Index (BMI) 42.7 Physical Exam Const no apparent distress Constitutional Narrative: Patient morbidly obese and so lethargic she is unable to answer questions. Orientation / Consciousness: lethargic HEENT normocephalic, head/scalp atraumatic, hearing grossly normal bilaterally and moist oral mucous membranes Eyes PERRL and EOMs intact bilaterally Neck no lymphadenopathy and supple Resp normal respiratory effort, no retractions, no use of accessory muscles and clearto auscultation bilaterally Cardio regular rate and regular rhythm GI normal to inspection, nondistended, normoactive bowel sounds, soft to palpation,non-tender and non-distended Extremity Extremity Narrative: Atrophy noted. Skin Skin Narrative: Patient has a linear, vertical series of tattoos over her Right lateral forearm. Neuro Neuro Narrative: Patient is lethargic but arousable. Results Medical Records Data Attestation: I reviewed the patient's medical records Lab / Micro Data Attestation: I reviewed the patient's lab results. 07/02/23 23:15 07/02/23 22:45 Labs: Laboratory Results - last 24 hr 07/02/23 22:45: WBC Cancelled, Corrected WBC Cancelled, RBC Cancelled, Hgb Cancelled, Hct Cancelled, MCV Cancelled, MCH Cancelled, MCHC Cancelled, RDW Std Deviation Cancelled, RDW Coeff of Juan Antonio Cancelled, Plt Count Cancelled, MPV Cancelled, Immature Gran % (Auto) Cancelled, Neut % (Auto) Cancelled, Lymph % (Auto) Cancelled, Mower % (Auto) Cancelled, Eos % (Auto) Cancelled, Baso % (Auto)Cancelled, Absolute Neuts (auto) Cancelled, Absolute Lymphs (auto) Cancelled, Total Counted Cancelled, Neutrophils % (Manual) Cancelled, Band Neutrophils % Cancelled, Lymphocytes % (Manual) Cancelled, Monocytes % (Manual) Cancelled, Eosinophils % (Manual) Cancelled, Basophils % (Manual) Cancelled, Metamyelocytes% Cancelled, Myelocytes % Cancelled, Promyelocytes % Cancelled, Blast Cells % Cancelled, Plasma Cell % (Manual) Cancelled, Other Cells % Cancelled, Nucleated RBC % Cancelled, Nucleated RBCs/100 WBC Cancelled, Differential Comment Cancelled, Diff Path Review Cancelled, Hypersegmented Neuts Cancelled, Atypical Lymphocytes Cancelled, Reactive Lymphocytes Cancelled, Smudge Cells Cancelled, Toxic Granulation Cancelled, Toxic Vacuolation Cancelled, Dohle Bodies Cancelled, Yvonne Rods Cancelled, Platelet Estimate Cancelled, Plt Morphology Comment Cancelled, RBC Morphology Cancelled 07/02/23 22:45: RBC Morphology Cancelled, Polychromasia Cancelled, HypochromasiaCancelled, Poikilocytosis Cancelled, Basophilic Stippling Cancelled, Anisocytosis Cancelled, Microcytosis Cancelled, Macrocytosis Cancelled, Spherocytes Cancelled, Sickle Cells Cancelled, Target Cells Cancelled, Tear DropCells Cancelled, Ovalocytes Cancelled, Stomatocytes Cancelled, [place] Bodies Cancelled, Kelsey Cells Cancelled, Bite Cells Cancelled, Crenated Cell Cancelled, Acanthocytes (Spur) Cancelled, Rouleaux Cancelled, Schistocytes Cancelled, PT Cancelled, INR Cancelled, APTT Cancelled Assessment & Plan Assessment/Plan (1) Seizure: PLAN: Plan 1. Sepsis secondary to Acute Cystitis; without hematuria in the setting of C7 spinal cord injury with quadriplegia, neurogenic bladder and suprapubic catheterwith frequent UTI's - Admit to ICU for treatment for treatment of sepsis protocol under contact precautions. Continue IV Zosyn begun in the ER and continue Linezolid as previous. Give Tylenol prn for pain or fever. 2. Septic encephalopathy arising from #1 - Continue supportive care and monitorfor improvement. 3. Suspected absence-type seizure in the ER requiring treatment with IV Ativan compounding #1 & #2 - Check EEG to confirm suspicion. Check prolactin level. Start Keppra 1g IV BID. Finally, we will consult [facility] tel[facility] with help appreciated in advance. 4. 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 Wound RN to see patient on-rounds in the AM with consult appreciated in advance. 5. Hypothyroidism - Resume Synthroid as previous and check TSH. 6. Morbid obesity; with BMI of 42.7 this admission - Weight loss will be recommended but is unlikely given her paralysis. 7. History of WPW syndrome - Noted. 8. History of RLE DVT; with listed allergies to Apixaban & Xarelto (rash) - Noted. 9. History of Left femur fracture - Noted. 10. History of cocaine and heroin abuse - Noted. 11. Depression with anxiety - Continue home medications as previous. 12. GERD - Resume PPI as previous. 13. Chronic headaches - Stable. 14. Chronic pain; on Buprenorphine patch - Continue Buprenorphine patch as previous. 15. DVT prophylaxis - Lovenox 40 mg sq BID. Total time: Approximately 95 minutes. Update: Patient was rechecked approximately four hours after admission and was noted to have her lactic acidosis of 5.7 mmol/L present on admission dropping to1.2 mmol/L on second check. Her blood pressure was elevated in the 180 mm Hg systolic range so she was treated with one dose of Iv Hydralazine. [employer] was updated with plan. Sepsis Attestation Sepsis Alert: Yes Sepsis Attestation: Agree w/Sepsis Date exam was performed: 07/02/23 Time exam was performed: 23:00 Possible Source of Sepsis: Genitourinary and Wound Sepsis Organ Dysfunction Criteria Present: Lactic Acid > 2 mmol/L and New/Unexplained change in mental status Fluid Resuscitation Fluid resuscitation indicated?: Yes Fluid Resuscitation ordered: 30 ml/kg fluid bolus ordered Amount of fluid ordered: 3 Sepsis Note Date exam was performed: 07/03/23 Time exam was performed: 03:00 Sepsis Attestation: Sepsis re-evaluation was performed Response to fluids: Fluid responsive hypotension Charges/Coding Visit Charges Inpatient E&M: 98924 Init Hosp L3 07/03/23 0704 <Electronically signed by Renzo De Paz DO> Cosigner Signature (if applicable): CC: Dr. Renzo De Paz DO; Dr. Lavon Vicente MD~ Signed [facility] Work Phone: 1(810) 525-861401-20-2024 Discharge summary Author Estevan Aguila [facility] July 02, 2023 11:58pm Note Date/Time July 02, 2023 1 0:45pm [facility] Medical Records Department [address] [place] [address] Emergency Department Summary 07/02/23 MR#: [id number] Acct: [id number] Name: HENRIK REED Rep #:[id number] : 1975 48 From: Estevan Aguila DO PCP: Dr. Lavon Vicente MD Status:REG E R Location: ED HPI History of Present Illness Chief Complaint: Alt LOC Narrative Narrative: 48-year-old female presenting to the ER with altered mental status. She is unable to give a history. Nurses report was limited. Last known well was dinnertime around 6 PM. [facility] Medical History Abnormal EKG Chronic headaches Chronic pain Cocaine abuse Deep vein thrombosis of right lower extremity Depression Exogenous obesity Heroin use History of Trilr-Coewdmdzv-Ghxun (WPW) syndrome Hx: UTI (urinary tract infection) Hypothyroidism Left femoral shaft fracture Malnutrition of mild degree Neuromuscular dysfunction of bladder Paraplegia Pre-operative cardiovascular exam, new EKG abnormalities c/w ischemia Quadriparesis Right ischial pressure sore, stage 4 Spinal cord injury (2010) Suprapubic catheter Home Medications levothyroxine 75 mcg tablet 75 mcg PO DAILY hypothyroidism 05/28/15 [History Last Taken 04/22/21] duloxetine 60 mg capsule,delayed release 90 mg PO QHS depression 08/21/15 [History Last Taken 04/21/21] baclofen 10 mg tablet 40 mg PO Q6H SPASMS 08/16/16 [History Last Taken 04/22/21] acetaminophen 325 mg tablet 650 mg PO Q4H PRN PRN Pain or fever 03/01/18 [History Last Taken 04/21/21] bisacodyl 10 mg rectal suppository 10 mg [place] QHS PRN Constipation 03/01/18 [History Last Taken 04/21/21] omeprazole 20 mg capsule,delayed release 20 mg PO LUNCH GERD 03/01/18 [History Last Taken 04/22/21] furosemide 40 mg tablet 40 mg PO BREAKFAST edema 05/26/18 [History Last Taken 04/22/21] sennosides 8.6 mg tablet 17.2 mg PO BID constipation 08/16/18 [History Last Taken 04/22/21] cholecalciferol (vitamin D3) 50 mcg (2,000 unit) capsule 2,000 unit PO LUNCH SUPPLEMENT 08/08/19 [History Last Taken 04/22/21] polyethylene glycol 3350 17 gram oral powder packet 17 gm PO QHS constipation 08/08/19 [History Last Taken 04/21/21] docusate sodium 100 mg capsule (Colace) 200 mg PO BID constipation 10/11/20 [History Last Taken 04/21/21] furosemide 20 mg tablet 20 mg PO LUNCH edema 04/21/21 [History Last Taken 04/22/21] gabapentin 800 mg tablet 1,600 mg PO TID NEUROPATHY 04/22/21 [History Last Taken 04/22/21] isosorbide mononitrate 30 mg tablet,extended release 24 hr 30 mg PO QHS angina 04/22/21 [History Last Taken 04/21/21] oxybutynin chloride 10 mg tablet,extended release 24 hr 30 mg PO DAILY Bladder spasms 04/22/21 [History Last Taken 04/22/21] potassium chloride 10 mEq capsule,extended release 10 meq PO LUNCH hypokalemia 04/22/21 [History Last Taken 04/22/21] phenazopyridine 200 mg tablet (Pyridium) 200 mg PO TID PRN Bladder Spasms 05/27/21 [History Last Taken Unknown] loperamide 2 mg tablet 1 mg PO Q4H PRN Diarrhea 06/03/22 [History Last Taken Unknown] magnesium hydroxide 400 mg/5 mL oral suspension (Milk of Magnesia) 30 ml PO DAILY PRN Constipation 06/03/22 [History Last Taken Unknown] melatonin 5 mg tablet 5 mg PO QHS insomnia 06/03/22 [History Last Taken Unknown] mirtazapine 30 mg tablet 15 mg PO QHS insomnia 06/03/22 [History Last Taken Unknown] ondansetron HCl 4 mg tablet 4 mg PO Q4H PRN Nausea 06/03/22 [History Last Taken Unknown] simethicone 80 mg tablet 80 mg PO DAILY PRN Gastric Reflux 06/03/22 [History Last Taken Unknown] buprenorphine 15 mcg/hour weekly transdermal patch (Butrans) 20 mcg transdermal Q7D pain 09/12/22 [History Last Taken 07/01/23] cetirizine 10 mg tablet 10 mg PO QPM allergies 09/12/22 [History Last Taken Unknown] linezolid 600 mg tablet 600 mg PO BID 7 days #14 tabs 11/16/22 [Rx Last Taken Unknown] nystatin 100,000 unit/gram topical powder (Nyamyc) 1 applic topical BID #15 grams 11/16/22 [Rx Last Taken Unknown] benzonatate 100 mg capsule 100 mg PO Q6H PRN 07/02/23 [History Last Taken Unknown] buspirone 10 mg tablet 10 mg PO BID 07/02/23 [History Last Taken Unknown] cetirizine 10 mg capsule (All Day Allergy (cetirizine)) 10 mg PO DAILY PRN allergies 07/02/23 [History Last Taken Unknown] diphenhydramine HCl 25 mg tablet (Allergy (diphenhydramine)) 50 mg PO Q8H PRN itching 07/02/23 [History Last Taken Unknown] fosfomycin tromethamine 3 gram oral packet 3 g PO X1 07/02/23 [History Last Taken Unknown] ibuprofen 200 mg tablet (Advil) 400 mg PO Q6H 07/02/23 [History Last Taken Unknown] linaclotide 145 mcg capsule (Linzess) 145 mcg PO LUNCH constipation 07/02/23 [History Last Taken Unknown] mirabegron 25 mg tablet,extended release 24 hr (Myrbetriq) 25 mg PO LUNCH 07/02/23 [History Last Taken Unknown] paroxetine HCl 10 mg tablet 20 mg PO QHS 07/02/23 [History Last Taken Unknown] trazodone 50 mg tablet 50 mg PO QHS 07/02/23 [History Last Taken Unknown] Allergy/AdvReac Type Severity Reaction Status Date / Time apixaban [From [facility]] Allergy Rash Verified 07/02/23 22:41 coconut oil Allergy cant breath Verified 07/02/23 22:41 mometasone furoate Allergy Rash Verified 07/02/23 22:41 [From Elocon] nitrofurantoin Allergy Unknown Verified 07/02/23 22:41 rivaroxaban [From Xarelto] Allergy Rash Verified 07/02/23 22:41 Sulfa (Sulfonamide Allergy Shortness Verified 07/02/23 22:41 Antibiotics) of breath Penicillins AdvReac NEEDS Verified 07/02/23 22:41 FOLLOW-UP Family History Mother Diabetes Grandfather CAD (coronary artery disease) Colon cancer Grandmother Breast cancer Aunt Ovarian cancer Surgical History History of tracheostomy (2010) Social History Smoking Status: Never smoker ROS ROS ED Review of Systems ROS Unobtainable: due to mental condition and due to mental status EXAM Physical Exam Const Vital Signs: 07/02/23 22:22 07/02/23 23:13 07/02/23 23:14 Temperature 98.0 F Temperature Source Temporal Pulse Rate 87 132 H Respiratory Rate 16 26 H Blood Pressure 186/104 H Blood Pressure Mean 131 Pulse Ox 97 96 Oxygen Delivery Method Room Air Nasal Cannula Nasal Cannula Oxygen Flow Rate (L/min) 4 2 07/02/23 23:55 Temperature 98.1 F Temperature Source Temporal Pulse Rate 118 H Respiratory Rate 23 H Blood Pressure 167/96 H Blood Pressure Mean 119 Pulse Ox 94 Oxygen Delivery Method Nasal Cannula Oxygen Flow Rate (L/min) 2 Positive obese General Appearance ED: Negative for pallor Nutritional Appearance: obese HEENT Reports moist mucous membranes Eyes PERRL Resp normal respiratory effort and clear to auscultation bilaterally Auscultation: Negative for rales, rhonchi or wheezes Cardio regular rate and regular rhythm GI normal to inspection, nondistended, normoactive bowel sounds Neuro Neuro Narrative: Altered mental status Psych Psych Narrative: Confused Skin General Skin Exam: Negative for jaundice or pallor MDM MDM MDM Narrative Medical decision making narrative: Patient presenting with altered mental status. Apparently last known to be wellat dinnertime this evening. Discussed with her daughter Zari who stated that she saw her the day before yesterday at her intermediate and she was awake and alert at her baseline. She did note that the patient at that time had chunks in her suprapubic catheter and this was changed. Patient's daughter states that when she gets UTIs she gets very lethargic. There was concern for possible seizure when the patient arrived as the patient was very confused. On examination she is not having anything tonic-clonic. Her arms and are rigid. She is staring straight ahead with no visual threat. Differential includes seizure, intracranial hemorrhage, UTI, pneumonia, COVID, influenza, RSV, dehydration, anemia, electrolyte abnormalities. Septic workup was undertaken asthe patient had an episode of hypoxia while was in the room and appears to be altered. Will obtain COVID, influenza, RSV swabs. Urinalysis to assess for UTI. Patient given IV fluids. Patient initially had a normal sinus rhythm but became tachycardic. His second liter of fluids was ordered. I did roll the patient to look at her sacral region and I do not see any signs of decubitus ulcer present currently. There are some erythema noted in the perineal region. Patient covered in stool. Patient with history of VRE and Pseudomonas UTI and she was covered with linezolid and Zosyn which she had been given before by infectious disease. Urinalysis consistent with UTI. Patient pancultured prior to antibiotics given. CBC shows a leukocytosis of 17.1. Hemoglobin 11.9. Platelets normal at 408. Renal function and electrolytes within normal limits. Glucose 162 without anion gap. LFTs are normal. CPK within normal limits. Lactic acid elevated at 5.7. Patient has remained slightly hypertensive. She still little tachycardic. She is on 2 L of oxygen via nasal cannula which is not outside of her baseline by looking back in the record. CT brain was obtained and is negative for acute intracranial findings. Chest x-ray my interpretation shows no acute process. Reevaluation at 11:55 PM the patient's heart rate is down to about 112. Patient is still normotensive and actually little hypertensive. COVID, flu, RSV all negative. Patient is still receiving IV fluids. Discussed with hospitalist for admission and is recommended the patient be put in ICU. Impression: 1. Delirium 2. UTI 3. Sepsis 4. Tachycardia 5. Lactic acidosis Lab Data Attestation: I reviewed the patient's lab results. Labs: Laboratory Results - last 24 hr 07/02/23 07/02/23 07/02/23 22:45 22:45 23:10 WBC Cancelled Corrected WBC Cancelled RBC Cancelled Hgb Cancelled Hct Cancelled MCV Cancelled MCH Cancelled MCHC Cancelled RDW Std Deviation Cancelled RDW Coeff of Juan Antonio Cancelled Plt Count Cancelled MPV Cancelled Immature Gran % (Auto) Cancelled Neut % (Auto) Cancelled Lymph % (Auto) Cancelled Mower % (Auto) Cancelled Eos % (Auto) Cancelled Baso % (Auto) Cancelled Absolute Neuts (auto) Cancelled Absolute Lymphs (auto) Cancelled Total Counted Cancelled Neutrophils % (Manual) Cancelled Band Neutrophils % Cancelled Lymphocytes % (Manual) Cancelled Monocytes % (Manual) Cancelled Eosinophils % (Manual) Cancelled Basophils % (Manual) Cancelled Metamyelocytes % Cancelled Myelocytes % Cancelled Promyelocytes % Cancelled Blast Cells % Cancelled Plasma Cell % (Manual) Cancelled Other Cells % Cancelled Nucleated RBC % Cancelled Nucleated RBCs/100 WBC Cancelled Differential Comment Cancelled Diff Path Review Cancelled Hypersegmented Neuts Cancelled Atypical Lymphocytes Cancelled Reactive Lymphocytes Cancelled Smudge Cells Cancelled Toxic Granulation Cancelled Toxic Vacuolation Cancelled Dohle Bodies Cancelled Yvonne Rods Cancelled Platelet Estimate Cancelled Plt Morphology Comment Cancelled RBC Morphology Cancelled Cancelled Polychromasia Cancelled Hypochromasia Cancelled Poikilocytosis Cancelled Basophilic Stippling Cancelled Anisocytosis Cancelled Microcytosis Cancelled Macrocytosis Cancelled Spherocytes Cancelled Sickle Cells Cancelled Target Cells Cancelled Tear Drop Cells Cancelled Ovalocytes Cancelled Stomatocytes Cancelled [place] Bodies Cancelled Kelsey Cells Cancelled Bite Cells Cancelled Crenated Cell Cancelled Acanthocytes (Spur) Cancelled Rouleaux Cancelled Schistocytes Cancelled PT Cancelled INR Cancelled APTT Cancelled Sodium 139 Potassium 3.7 Chloride 101 Carbon Dioxide 27.0 Anion Gap 11 BUN 10 Creatinine 0.56 Estim Creat Clear Calc 149.60 Est GFR (MDRD) Af Amer 149 Est GFR (MDRD) Non-Af 123 BUN/Creatinine Ratio 18.0 Glucose 162 H Lactic Acid 5.7 H* Calcium 9.6 Total Bilirubin 0.50 AST 25 ALT 40 Alkaline Phosphatase 96 Total Creatine Kinase 137 Troponin I High Sens 35 Total Protein 9.2 H Albumin 3.6 Globulin 5.6 H Albumin/Globulin Ratio 0.6 L Urine Color Yellow Urine Clarity Turbid Urine pH 7.0 Ur Specific Prince 1.010 Urine Protein 500 H Urine Glucose (UA) Normal Urine Ketones 150 A* Urine Occult Blood 250 H Urine Nitrite Positive H Urine Bilirubin 1 H Urine Urobilinogen 1 H Ur Leukocyte Esterase 500 H Urine RBC 10-25 SEEN Urine WBC 50-100 SEEN Ur Squamous Epith Cells 0-5 SEEN Ur Transition Epith Cell 0-5 SEEN Amorphous Sediment 1+ Urine Bacteria 3+ Urine Mucus 0 SEEN 07/02/23 23:15 WBC 17.1 H Corrected WBC RBC 4.65 Hgb 11.9 L Hct 38.5 MCV 82.8 MCH 25.6 L MCHC 30.9 L RDW Std Deviation 47.5 H RDW Coeff of Juan Antonio 15.8 H Plt Count 408 MPV 9.3 Immature Gran % (Auto) 0.500 Neut % (Auto) 86.2 H Lymph % (Auto) 8.7 L Mower % (Auto) 4.0 Eos % (Auto) 0.3 Baso % (Auto) 0.3 Absolute Neuts (auto) 14.7 H Absolute Lymphs (auto) 1.49 Total Counted Neutrophils % (Manual) Band Neutrophils % Lymphocytes % (Manual) Monocytes % (Manual) Eosinophils % (Manual) Basophils % (Manual) Metamyelocytes % Myelocytes % Promyelocytes % Blast Cells % Plasma Cell % (Manual) Other Cells % Nucleated RBC % 0 Nucleated RBCs/100 WBC Differential Comment Diff Path Review Hypersegmented Neuts Atypical Lymphocytes Reactive Lymphocytes Smudge Cells Toxic Granulation Toxic Vacuolation Dohle Bodies Yvonne Rods Platelet Estimate Plt Morphology Comment RBC Morphology Polychromasia Hypochromasia Poikilocytosis Basophilic Stippling Anisocytosis Microcytosis Macrocytosis Spherocytes Sickle Cells Target Cells Tear Drop Cells Ovalocytes Stomatocytes [place] Bodies Kelsey Cells Bite Cells Crenated Cell Acanthocytes (Spur) Rouleaux Schistocytes PT 14.2 INR 1.1 APTT 29.3 Sodium Potassium Chloride Carbon Dioxide Anion Gap BUN Creatinine Estim Creat Clear Calc Est GFR (MDRD) Af Amer Est GFR (MDRD) Non-Af BUN/Creatinine Ratio Glucose Lactic Acid Calcium Total Bilirubin AST ALT Alkaline Phosphatase Total Creatine Kinase Troponin I High Sens Total Protein Albumin Globulin Albumin/Globulin Ratio Urine Color Urine Clarity Urine pH Ur Specific Prince Urine Protein Urine Glucose (UA) Urine Ketones Urine Occult Blood Urine Nitrite Urine Bilirubin Urine Urobilinogen Ur Leukocyte Esterase Urine RBC Urine WBC Ur Squamous Epith Cells Ur Transition Epith Cell Amorphous Sediment Urine Bacteria Urine Mucus Radiography Diagnostic Testing: Clinical Impression(s) from Imaging Studies Chest X-Ray 07/02/23 22:30 IMPRESSION: Poor inspiration with some bibasilar atelectasis. Cardiomegaly. Electronically Signed: Yuri Cerna MD at 23:56 EST Reading Location ID and State: [id number] / [email or web address] Tel , Service support , Brain CT 07/02/23 23:25 IMPRESSION: Normal unenhanced CT scan of the brain. Acute left sphenoid sinusitis Electronically Signed: Yuri Cerna MD at 23:45 EST Reading Location ID and State: [id number] / [email or web address] Tel , Service support , Discharge Plan Triage Chief Complaint: Alt LOC ED Provider: Estevan Aguila Dx/Rx/DC Orders Prescriptions: No Action levothyroxine 75 MCG tablet 75 mcg PO DAILY Patient Comments: HYPOTHYROIDISM duloxetine 60 MG capsule,delayed release(DR/EC) 90 mg PO QHS Hold Instructions: Resume on 11/23/22. Patient Comments: ANXIETY baclofen 10 MG tablet 40 mg PO Q6H acetaminophen 325 MG tablet 650 mg PO Q4H PRN PRN (Reason: Pain or fever) bisacodyl 10 MG suppository 10 mg [place] QHS PRN (Reason: Constipation) omeprazole 20 MG capsule,delayed release(DR/EC) 20 mg PO LUNCH furosemide 40 MG tablet 40 mg PO BREAKFAST sennosides 8.6 MG tablet 17.2 mg PO BID polyethylene glycol 3350 17 GM packet 17 gm PO QHS cholecalciferol (vitamin D3) 2,000 UNIT capsule 2,000 unit PO LUNCH docusate sodium [Colace] 100 mg Capsule 200 mg PO BID furosemide 20 mg Tablet 20 mg PO LUNCH isosorbide mononitrate 30 mg Tablet Extended Release 24 Hr 30 mg PO QHS potassium chloride 10 mEq Capsule, Extended Release 10 meq PO LUNCH oxybutynin chloride 10 mg Tablet Extended Release 24hr 30 mg PO DAILY gabapentin 800 mg Tablet 1,600 mg PO TID phenazopyridine [Pyridium] 200 mg Tablet 200 mg PO TID PRN (Reason: Bladder Spasms) melatonin 5 mg Tablet 5 mg PO QHS mirtazapine 30 mg Tablet 15 mg PO QHS simethicone 80 mg Tablet 80 mg PO DAILY PRN (Reason: Gastric Reflux) magnesium hydroxide [Milk of Magnesia] 400 mg/5 mL Suspension 30 ml PO DAILY PRN (Reason: Constipation) loperamide 2 mg Tablet 1 mg PO Q4H PRN (Reason: Diarrhea) Rx Instructions: administer after each loose stool until symptoms controlled; do not exceed 8 mg per 24 hrs ondansetron HCl 4 mg Tablet 4 mg PO Q4H PRN (Reason: Nausea) buprenorphine [Butrans] 15 mcg/hour patch weekly 20 mcg transdermal Q7D cetirizine 10 mg Tablet 10 mg PO QPM linezolid 600 mg Tablet 600 mg PO BID 7 Days Qty: 14 0RF nystatin [Nyamyc] 100,000 unit/gram Powder 1 applic topical BID Qty: 15 0RF Protocol: *Topical Application Instructions APPLICATION INSTRUCTIONS: to folds and groin Rx Instructions: Apply to pannus diphenhydramine HCl [Allergy (diphenhydramine)] 25 mg tablet 50 mg PO Q8H PRN (Reason: itching) benzonatate 100 mg capsule 100 mg PO Q6H PRN buspirone 10 mg tablet 10 mg PO BID fosfomycin tromethamine 3 gram packet 3 g PO X1 Rx Instructions: one time only for uti ibuprofen [Advil] 200 mg tablet 400 mg PO Q6H Linzess 145 mcg capsule 145 mcg PO LUNCH paroxetine HCl 10 mg tablet 20 mg PO QHS trazodone 50 mg tablet 50 mg PO QHS All Day Allergy (cetirizine) 10 mg capsule 10 mg PO DAILY PRN (Reason: allergies) Myrbetriq 25 mg tablet extended release 24 hr 25 mg PO LUNCH Primary Care Provider: Lavon Vicente Referrals: Lavon Vicente MD [Primary Care Provider] - What to do if you have Problems For any increased pain, shortness of breath, bleeding, nausea or vomiting, chestpain, or any unexpected problems, contact your Primary Care Provider. Call [facility] ([phone]) or report to the closest Emergency Room. Call 911 if necessary. 07/02/23 [id number] <Electronically signed by Estevan Aguila DO> Cosigner Signature (if applicable): CC: Dr. Lavon Vicente MD ~ Signed [facility] Work Phone: [phone] Discharge summary Author Estevan Aguila [facility] July 02, 2023 11:58pm Note Date/Time July 02, 2023 1 0:45pm [facility] Medical Records Department [address] [place] [address] Emergency Department Summary 07/02/23 MR#: [id number] Acct: [id number] Name: HENRIK REED Rep #:[id number] : 1975 48 From: Estevan Aguila DO PCP: Dr. Lavon Vicente MD Status:REG E R Location: ED HPI History of Present Illness Chief Complaint: Alt LOC Narrative Narrative: 48-year-old female presenting to the ER with altered mental status. She is unable to give a history. Nurses report was limited. Last known well was dinnertime around 6 PM. [facility] Medical History Abnormal EKG Chronic headaches Chronic pain Cocaine abuse Deep vein thrombosis of right lower extremity Depression Exogenous obesity Heroin use History of Ssoqw-Avfxoyecj-Zxrfe (WPW) syndrome Hx: UTI (urinary tract infection) Hypothyroidism Left femoral shaft fracture Malnutrition of mild degree Neuromuscular dysfunction of bladder Paraplegia Pre-operative cardiovascular exam, new EKG abnormalities c/w ischemia Quadriparesis Right ischial pressure sore, stage 4 Spinal cord injury (2010) Suprapubic catheter Home Medications levothyroxine 75 mcg tablet 75 mcg PO DAILY hypothyroidism 05/28/15 [History Last Taken 04/22/21] duloxetine 60 mg capsule,delayed release 90 mg PO QHS depression 08/21/15 [History Last Taken 04/21/21] baclofen 10 mg tablet 40 mg PO Q6H SPASMS 08/16/16 [History Last Taken 04/22/21] acetaminophen 325 mg tablet 650 mg PO Q4H PRN PRN Pain or fever 03/01/18 [History Last Taken 04/21/21] bisacodyl 10 mg rectal suppository 10 mg [place] QHS PRN Constipation 03/01/18 [History Last Taken 04/21/21] omeprazole 20 mg capsule,delayed release 20 mg PO LUNCH GERD 03/01/18 [History Last Taken 04/22/21] furosemide 40 mg tablet 40 mg PO BREAKFAST edema 05/26/18 [History Last Taken 04/22/21] sennosides 8.6 mg tablet 17.2 mg PO BID constipation 08/16/18 [History Last Taken 04/22/21] cholecalciferol (vitamin D3) 50 mcg (2,000 unit) capsule 2,000 unit PO LUNCH SUPPLEMENT 08/08/19 [History Last Taken 04/22/21] polyethylene glycol 3350 17 gram oral powder packet 17 gm PO QHS constipation 08/08/19 [History Last Taken 04/21/21] docusate sodium 100 mg capsule (Colace) 200 mg PO BID constipation 10/11/20 [History Last Taken 04/21/21] furosemide 20 mg tablet 20 mg PO LUNCH edema 04/21/21 [History Last Taken 04/22/21] gabapentin 800 mg tablet 1,600 mg PO TID NEUROPATHY 04/22/21 [History Last Taken 04/22/21] isosorbide mononitrate 30 mg tablet,extended release 24 hr 30 mg PO QHS angina 04/22/21 [History Last Taken 04/21/21] oxybutynin chloride 10 mg tablet,extended release 24 hr 30 mg PO DAILY Bladder spasms 04/22/21 [History Last Taken 04/22/21] potassium chloride 10 mEq capsule,extended release 10 meq PO LUNCH hypokalemia 04/22/21 [History Last Taken 04/22/21] phenazopyridine 200 mg tablet (Pyridium) 200 mg PO TID PRN Bladder Spasms 05/27/21 [History Last Taken Unknown] loperamide 2 mg tablet 1 mg PO Q4H PRN Diarrhea 06/03/22 [History Last Taken Unknown] magnesium hydroxide 400 mg/5 mL oral suspension (Milk of Magnesia) 30 ml PO DAILY PRN Constipation 06/03/22 [History Last Taken Unknown] melatonin 5 mg tablet 5 mg PO QHS insomnia 06/03/22 [History Last Taken Unknown] mirtazapine 30 mg tablet 15 mg PO QHS insomnia 06/03/22 [History Last Taken Unknown] ondansetron HCl 4 mg tablet 4 mg PO Q4H PRN Nausea 06/03/22 [History Last Taken Unknown] simethicone 80 mg tablet 80 mg PO DAILY PRN Gastric Reflux 06/03/22 [History Last Taken Unknown] buprenorphine 15 mcg/hour weekly transdermal patch (Butrans) 20 mcg transdermal Q7D pain 09/12/22 [History Last Taken 07/01/23] cetirizine 10 mg tablet 10 mg PO QPM allergies 09/12/22 [History Last Taken Unknown] linezolid 600 mg tablet 600 mg PO BID 7 days #14 tabs 11/16/22 [Rx Last Taken Unknown] nystatin 100,000 unit/gram topical powder (Nyamyc) 1 applic topical BID #15 grams 11/16/22 [Rx Last Taken Unknown] benzonatate 100 mg capsule 100 mg PO Q6H PRN 07/02/23 [History Last Taken Unknown] buspirone 10 mg tablet 10 mg PO BID 07/02/23 [History Last Taken Unknown] cetirizine 10 mg capsule (All Day Allergy (cetirizine)) 10 mg PO DAILY PRN allergies 07/02/23 [History Last Taken Unknown] diphenhydramine HCl 25 mg tablet (Allergy (diphenhydramine)) 50 mg PO Q8H PRN itching 07/02/23 [History Last Taken Unknown] fosfomycin tromethamine 3 gram oral packet 3 g PO X1 07/02/23 [History Last Taken Unknown] ibuprofen 200 mg tablet (Advil) 400 mg PO Q6H 07/02/23 [History Last Taken Unknown] linaclotide 145 mcg capsule (Linzess) 145 mcg PO LUNCH constipation 07/02/23 [History Last Taken Unknown] mirabegron 25 mg tablet,extended release 24 hr (Myrbetriq) 25 mg PO LUNCH 07/02/23 [History Last Taken Unknown] paroxetine HCl 10 mg tablet 20 mg PO QHS 07/02/23 [History Last Taken Unknown] trazodone 50 mg tablet 50 mg PO QHS 07/02/23 [History Last Taken Unknown] Allergy/AdvReac Type Severity Reaction Status Date / Time apixaban [From Eliquis] Allergy Rash Verified 07/02/23 22:41 coconut oil Allergy cant breath Verified 07/02/23 22:41 mometasone furoate Allergy Rash Verified 07/02/23 22:41 [From Elocon] nitrofurantoin Allergy Unknown Verified 07/02/23 22:41 rivaroxaban [From Xarelto] Allergy Rash Verified 07/02/23 22:41 Sulfa (Sulfonamide Allergy Shortness Verified 07/02/23 22:41 Antibiotics) of breath Penicillins AdvReac NEEDS Verified 07/02/23 22:41 FOLLOW-UP Family History Mother Diabetes Grandfather CAD (coronary artery disease) Colon cancer Grandmother Breast cancer Aunt Ovarian cancer Surgical History History of tracheostomy (2010) Social History Smoking Status: Never smoker ROS ROS ED Review of Systems ROS Unobtainable: due to mental condition and due to mental status EXAM Physical Exam Const Vital Signs: 07/02/23 22:22 07/02/23 23:13 07/02/23 23:14 Temperature 98.0 F Temperature Source Temporal Pulse Rate 87 132 H Respiratory Rate 16 26 H Blood Pressure 186/104 H Blood Pressure Mean 131 Pulse Ox 97 96 Oxygen Delivery Method Room Air Nasal Cannula Nasal Cannula Oxygen Flow Rate (L/min) 4 2 07/02/23 23:55 Temperature 98.1 F Temperature Source Temporal Pulse Rate 118 H Respiratory Rate 23 H Blood Pressure 167/96 H Blood Pressure Mean 119 Pulse Ox 94 Oxygen Delivery Method Nasal Cannula Oxygen Flow Rate (L/min) 2 Positive obese General Appearance ED: Negative for pallor Nutritional Appearance: obese HEENT Reports moist mucous membranes Eyes PERRL Resp normal respiratory effort and clear to auscultation bilaterally Auscultation: Negative for rales, rhonchi or wheezes Cardio regular rate and regular rhythm GI normal to inspection, nondistended, normoactive bowel sounds Neuro Neuro Narrative: Altered mental status Psych Psych Narrative: Confused Skin General Skin Exam: Negative for jaundice or pallor MDM MDM MDM Narrative Medical decision making narrative: Patient presenting with altered mental status. Apparently last known to be wellat dinnertime this evening. Discussed with her daughter Zari who stated that she saw her the day before yesterday at her intermediate and she was awake and alert at her baseline. She did note that the patient at that time had chunks in her suprapubic catheter and this was changed. Patient's daughter states that when she gets UTIs she gets very lethargic. There was concern for possible seizure when the patient arrived as the patient was very confused. On examination she is not having anything tonic-clonic. Her arms and are rigid. She is staring straight ahead with no visual threat. Differential includes seizure, intracranial hemorrhage, UTI, pneumonia, COVID, influenza, RSV, dehydration, anemia, electrolyte abnormalities. Septic workup was undertaken asthe patient had an episode of hypoxia while was in the room and appears to be altered. Will obtain COVID, influenza, RSV swabs. Urinalysis to assess for UTI. Patient given IV fluids. Patient initially had a normal sinus rhythm but became tachycardic. His second liter of fluids was ordered. I did roll the patient to look at her sacral region and I do not see any signs of decubitus ulcer present currently. There are some erythema noted in the perineal region. Patient covered in stool. Patient with history of VRE and Pseudomonas UTI and she was covered with linezolid and Zosyn which she had been given before by infectious disease. Urinalysis consistent with UTI. Patient pancultured prior to antibiotics given. CBC shows a leukocytosis of 17.1. Hemoglobin 11.9. Platelets normal at 408. Renal function and electrolytes within normal limits. Glucose 162 without anion gap. LFTs are normal. CPK within normal limits. Lactic acid elevated at 5.7. Patient has remained slightly hypertensive. She still little tachycardic. She is on 2 L of oxygen via nasal cannula which is not outside of her baseline by looking back in the record. CT brain was obtained and is negative for acute intracranial findings. Chest x-ray my interpretation shows no acute process. Reevaluation at 11:55 PM the patient's heart rate is down to about 112. Patient is still normotensive and actually little hypertensive. COVID, flu, RSV all negative. Patient is still receiving IV fluids. Discussed with hospitalist for admission and is recommended the patient be put in ICU. Impression: 1. Delirium 2. UTI 3. Sepsis 4. Tachycardia 5. Lactic acidosis Lab Data Attestation: I reviewed the patient's lab results. Labs: Laboratory Results - last 24 hr 07/02/23 07/02/23 07/02/23 22:45 22:45 23:10 WBC Cancelled Corrected WBC Cancelled RBC Cancelled Hgb Cancelled Hct Cancelled MCV Cancelled MCH Cancelled MCHC Cancelled RDW Std Deviation Cancelled RDW Coeff of Juan Antonio Cancelled Plt Count Cancelled MPV Cancelled Immature Gran % (Auto) Cancelled Neut % (Auto) Cancelled Lymph % (Auto) Cancelled Mower % (Auto) Cancelled Eos % (Auto) Cancelled Baso % (Auto) Cancelled Absolute Neuts (auto) Cancelled Absolute Lymphs (auto) Cancelled Total Counted Cancelled Neutrophils % (Manual) Cancelled Band Neutrophils % Cancelled Lymphocytes % (Manual) Cancelled Monocytes % (Manual) Cancelled Eosinophils % (Manual) Cancelled Basophils % (Manual) Cancelled Metamyelocytes % Cancelled Myelocytes % Cancelled Promyelocytes % Cancelled Blast Cells % Cancelled Plasma Cell % (Manual) Cancelled Other Cells % Cancelled Nucleated RBC % Cancelled Nucleated RBCs/100 WBC Cancelled Differential Comment Cancelled Diff Path Review Cancelled Hypersegmented Neuts Cancelled Atypical Lymphocytes Cancelled Reactive Lymphocytes Cancelled Smudge Cells Cancelled Toxic Granulation Cancelled Toxic Vacuolation Cancelled Dohle Bodies Cancelled Yvonne Rods Cancelled Platelet Estimate Cancelled Plt Morphology Comment Cancelled RBC Morphology Cancelled Cancelled Polychromasia Cancelled Hypochromasia Cancelled Poikilocytosis Cancelled Basophilic Stippling Cancelled Anisocytosis Cancelled Microcytosis Cancelled Macrocytosis Cancelled Spherocytes Cancelled Sickle Cells Cancelled Target Cells Cancelled Tear Drop Cells Cancelled Ovalocytes Cancelled Stomatocytes Cancelled [place] Bodies Cancelled [place] Cells Cancelled Bite Cells Cancelled Crenated Cell Cancelled Acanthocytes (Spur) Cancelled Rouleaux Cancelled Schistocytes Cancelled PT Cancelled INR Cancelled APTT Cancelled Sodium 139 Potassium 3.7 Chloride 101 Carbon Dioxide 27.0 Anion Gap 11 BUN 10 Creatinine 0.56 Estim Creat Clear Calc 149.60 Est GFR (MDRD) Af Amer 149 Est GFR (MDRD) Non-Af 123 BUN/Creatinine Ratio 18.0 Glucose 162 H Lactic Acid 5.7 H* Calcium 9.6 Total Bilirubin 0.50 AST 25 ALT 40 Alkaline Phosphatase 96 Total Creatine Kinase 137 Troponin I High Sens 35 Total Protein 9.2 H Albumin 3.6 Globulin 5.6 H Albumin/Globulin Ratio 0.6 L Urine Color Yellow Urine Clarity Turbid Urine pH 7.0 Ur Specific Prince 1.010 Urine Protein 500 H Urine Glucose (UA) Normal Urine Ketones 150 A* Urine Occult Blood 250 H Urine Nitrite Positive H Urine Bilirubin 1 H Urine Urobilinogen 1 H Ur Leukocyte Esterase 500 H Urine RBC 10-25 SEEN Urine WBC 50-100 SEEN Ur Squamous Epith Cells 0-5 SEEN Ur Transition Epith Cell 0-5 SEEN Amorphous Sediment 1+ Urine Bacteria 3+ Urine Mucus 0 SEEN 07/02/23 23:15 WBC 17.1 H Corrected WBC RBC 4.65 Hgb 11.9 L Hct 38.5 MCV 82.8 MCH 25.6 L MCHC 30.9 L RDW Std Deviation 47.5 H RDW Coeff of Juan Antonio 15.8 H Plt Count 408 MPV 9.3 Immature Gran % (Auto) 0.500 Neut % (Auto) 86.2 H Lymph % (Auto) 8.7 L Mower % (Auto) 4.0 Eos % (Auto) 0.3 Baso % (Auto) 0.3 Absolute Neuts (auto) 14.7 H Absolute Lymphs (auto) 1.49 Total Counted Neutrophils % (Manual) Band Neutrophils % Lymphocytes % (Manual) Monocytes % (Manual) Eosinophils % (Manual) Basophils % (Manual) Metamyelocytes % Myelocytes % Promyelocytes % Blast Cells % Plasma Cell % (Manual) Other Cells % Nucleated RBC % 0 Nucleated RBCs/100 WBC Differential Comment Diff Path Review Hypersegmented Neuts Atypical Lymphocytes Reactive Lymphocytes Smudge Cells Toxic Granulation Toxic Vacuolation Dohle Bodies Yvonne Rods Platelet Estimate Plt Morphology Comment RBC Morphology Polychromasia Hypochromasia Poikilocytosis Basophilic Stippling Anisocytosis Microcytosis Macrocytosis Spherocytes Sickle Cells Target Cells Tear Drop Cells Ovalocytes Stomatocytes [place] Bodies [place] Cells Bite Cells Crenated Cell Acanthocytes (Spur) Rouleaux Schistocytes PT 14.2 INR 1.1 APTT 29.3 Sodium Potassium Chloride Carbon Dioxide Anion Gap BUN Creatinine Estim Creat Clear Calc Est GFR (MDRD) Af Amer Est GFR (MDRD) Non-Af BUN/Creatinine Ratio Glucose Lactic Acid Calcium Total Bilirubin AST ALT Alkaline Phosphatase Total Creatine Kinase Troponin I High Sens Total Protein Albumin Globulin Albumin/Globulin Ratio Urine Color Urine Clarity Urine pH Ur Specific Prince Urine Protein Urine Glucose (UA) Urine Ketones Urine Occult Blood Urine Nitrite Urine Bilirubin Urine Urobilinogen Ur Leukocyte Esterase Urine RBC Urine WBC Ur Squamous Epith Cells Ur Transition Epith Cell Amorphous Sediment Urine Bacteria Urine Mucus Radiography Diagnostic Testing: Clinical Impression(s) from Imaging Studies Chest X-Ray 07/02/23 22:30 IMPRESSION: Poor inspiration with some bibasilar atelectasis. Cardiomegaly. Electronically Signed: Yuri Cerna MD at 23:56 EST Reading Location ID and State: [id number] / [email or web address] Tel , Service support , Brain CT 07/02/23 23:25 IMPRESSION: Normal unenhanced CT scan of the brain. Acute left sphenoid sinusitis Electronically Signed: Yuri Cerna MD at 23:45 EST Reading Location ID and State: [id number] [email or web address] Tel , Service support , Discharge Plan Triage Chief Complaint: Alt LOC ED Provider: Estevan Aguila Dx/Rx/DC Orders Prescriptions: No Action levothyroxine 75 MCG tablet 75 mcg PO DAILY Patient Comments: HYPOTHYROIDISM duloxetine 60 MG capsule,delayed release(DR/EC) 90 mg PO QHS Hold Instructions: Resume on 11/23/22. Patient Comments: ANXIETY baclofen 10 MG tablet 40 mg PO Q6H acetaminophen 325 MG tablet 650 mg PO Q4H PRN PRN (Reason: Pain or fever) bisacodyl 10 MG suppository 10 mg [place] QHS PRN (Reason: Constipation) omeprazole 20 MG capsule,delayed release(DR/EC) 20 mg PO LUNCH furosemide 40 MG tablet 40 mg PO BREAKFAST sennosides 8.6 MG tablet 17.2 mg PO BID polyethylene glycol 3350 17 GM packet 17 gm PO QHS cholecalciferol (vitamin D3) 2,000 UNIT capsule 2,000 unit PO LUNCH docusate sodium [Colace] 100 mg Capsule 200 mg PO BID furosemide 20 mg Tablet 20 mg PO LUNCH isosorbide mononitrate 30 mg Tablet Extended Release 24 Hr 30 mg PO QHS potassium chloride 10 mEq Capsule, Extended Release 10 meq PO LUNCH oxybutynin chloride 10 mg Tablet Extended Release 24hr 30 mg PO DAILY gabapentin 800 mg Tablet 1,600 mg PO TID phenazopyridine [Pyridium] 200 mg Tablet 200 mg PO TID PRN (Reason: Bladder Spasms) melatonin 5 mg Tablet 5 mg PO QHS mirtazapine 30 mg Tablet 15 mg PO QHS simethicone 80 mg Tablet 80 mg PO DAILY PRN (Reason: Gastric Reflux) magnesium hydroxide [Milk of Magnesia] 400 mg/5 mL Suspension 30 ml PO DAILY PRN (Reason: Constipation) loperamide 2 mg Tablet 1 mg PO Q4H PRN (Reason: Diarrhea) Rx Instructions: administer after each loose stool until symptoms controlled; do not exceed 8 mg per 24 hrs ondansetron HCl 4 mg Tablet 4 mg PO Q4H PRN (Reason: Nausea) buprenorphine [Butrans] 15 mcg/hour patch weekly 20 mcg transdermal Q7D cetirizine 10 mg Tablet 10 mg PO QPM linezolid 600 mg Tablet 600 mg PO BID 7 Days Qty: 14 0RF nystatin [Nyamyc] 100,000 unit/gram Powder 1 applic topical BID Qty: 15 0RF Protocol: *Topical Application Instructions APPLICATION INSTRUCTIONS: to folds and groin Rx Instructions: Apply to pannus diphenhydramine HCl [Allergy (diphenhydramine)] 25 mg tablet 50 mg PO Q8H PRN (Reason: itching) benzonatate 100 mg capsule 100 mg PO Q6H PRN buspirone 10 mg tablet 10 mg PO BID fosfomycin tromethamine 3 gram packet 3 g PO X1 Rx Instructions: one time only for uti ibuprofen [Advil] 200 mg tablet 400 mg PO Q6H Linzess 145 mcg capsule 145 mcg PO LUNCH paroxetine HCl 10 mg tablet 20 mg PO QHS trazodone 50 mg tablet 50 mg PO QHS All Day Allergy (cetirizine) 10 mg capsule 10 mg PO DAILY PRN (Reason: allergies) Myrbetriq 25 mg tablet extended release 24 hr 25 mg PO LUNCH Primary Care Provider: Lavon Vicente Referrals: Lavon Vicente MD [Primary Care Provider] - What to do if you have Problems For any increased pain, shortness of breath, bleeding, nausea or vomiting, chestpain, or any unexpected problems, contact your Primary Care Provider. Call [facility] ([phone]) or report to the closest Emergency Room. Call 911 if necessary. 07/02/23 [id number] <Electronically signed by Estevan Aguila DO> Cosigner Signature (if applicable): CC: Dr. Lavon Vicente MD ~ Signed [facility] Work Phone: [phone] Note ORIGINAL EXAMINATION: CT OF THE ABDOMEN [...] Sign Date: 07/01/2023 1:15:25 PM Ordering Provider: [employer]08-16-2023 Discharge summary Author Christine Lee [facility] January 27, 2023 12:00am Note Date/Time January 26, 2023 11 :42pm [facility] Medical Records Department [address] [place] [address] Emergency Department Summary 01/26/23 MR#: [id number] Acct: [id number] Name: HENRIK REED Rep #:[id number] : 1975 48 From: Christine Dailey PCP: Dr. Lavon Vicente MD Status:REG E R Location: ED HPI HPI - Female History of Present Illness Chief Complaint: Vag Bleeding Informant: patient Narrative Narrative: Patient is a 48-year-old female with history of C7 quadriplegia, suprapubic indwelling catheter and prior hysterectomy presenting with vaginal bleeding. Apparently patient developed vaginal bleeding tonight at her nursing facility ([facility], [place]). She wanted to be evaluated in the emergency room so she was transferred here. Shows the past few days she has had some burning around her bladder and her left lower pelvis and was prescribed antibiotics for this today however she has not started them yet. She is not any blood thinners. Shestates she has had some increased fatigue and feeling hot and cold denies any fever. No other complaints or concerns at this time. She states her last bowel movement was 5 days ago and quite large. She feels confident the bleeding is not coming from her rectum. [facility] Medical History Abnormal EKG Chronic headaches Chronic pain Cocaine abuse Deep vein thrombosis of right lower extremity Depression Exogenous obesity Heroin use History of Pbswn-Vjjzwwidg-Kwqfm (WPW) syndrome Hx: UTI (urinary tract infection) Hypothyroidism Left femoral shaft fracture Malnutrition of mild degree Neuromuscular dysfunction of bladder Paraplegia Pre-operative cardiovascular exam, new EKG abnormalities c/w ischemia Quadriparesis Right ischial pressure sore, stage 4 Spinal cord injury (2010) Suprapubic catheter Home Medications levothyroxine 75 mcg tablet 75 mcg PO DAILY hypothyroidism 05/28/15 [History Last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 Plan Assessment/Plan (1) Pneumonia: PLAN: Plan Patient is a 47-year-old lady with paraplegia secondary to spinal cord injury [id number] presented with shortness of breath CT demonstrated a right-sided pneumonia admitted to monitored bed for further management 1. Pneumonia ? Initially thought to be bacterial placed on broad-spectrum antibiotic therapy. Patient seen by Dr. Ho with ID who recommended discontinuation of IV antibiotics his suspicion was patient 2. Neurogenic bladder ? Status post suprapubic catheter placement ? Patient has history of recurrent bladder infection 3. Paraplegia ? From spinal cord injury supportive care 4. GERD ? On PPI 5. Hypothyroidism - Patient is on levothyroxine home dose continued 6. Class III obesity with BMI of 50.7 ? Weight loss advised 7. DVT prophylaxis - On enoxaparin Time spent in the patient's overall evaluation,decision-making process, review of diagnostic data, adjustment of management, discussion with other providers, nursing nursing and ancillary staff involved in patient's care documentation, 38-minute minutes Charges/Coding Visit Charges Inpatient E&M: 08858 Subs Hosp L2 09/14/22 1241 <Electronically signed by Renzo Alva MD> Cosigner Signature (if applicable): CC: ~ [facility]igned [facility] Work Phone: [phone] Ho [facility] September 14, 2022 11:03am Note Date/Time September 14, 2022 11:0 3am [facility] Medical Records Department [address] [place] [address] Consultation - Infectious Dx 09/14/22 1100 MR#: [id number] Acct: [id number] Name: HENRIK REED Rep #:[id number] : 1975 47 From: Paolo Ho MD PCP: Dr. Lavon Vicente MD Status:ADM I N Location: [place] [id number]- Assessment & Plan Assessment/Plan (1) Pneumonia: PLAN: Strongly suspect viral pneumonia at this point will discontinue parenteralantibacterial therapy and continue supportive care. HPI Consult Data Date of Consult: 09/14/22 HPI Narrative Reason for Consultation: Pneumonia/urinary tract infection HPI Narrative: HENRIK REED, is a 47 F who presents from [facility] with a history of spinal cord disease has a suprapubic Mccarthy catheter in place who presents with chest congestion/productive phlegm. Patient has underlying lung disease and baseline on 4 L of oxygen at the facility. Low-grade fever during this admission initially. Chest film reviewed. Blood cultures remain sterile. Respiratory specimen isolated rhinovirus. No hemoptysis. No pleuritic chest pain. Patient overall clinically stable on broad-spectrum antimicrobial therapyempirically. No gastrointestinal distress. Overall hemodynamically stable. 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 Hx: UTI (urinary tract infection) Hypothyroidism Left femoral shaft fracture Malnutrition of mild degree Neuromuscular dysfunction of bladder Paraplegia Pre-operative cardiovascular exam, new EKG abnormalities c/w ischemia Quadriparesis Right ischial pressure sore, stage 4 Spinal cord injury (2010) Suprapubic catheter Home Medications levothyroxine 75 mcg tablet 75 mcg PO DAILY 05/28/15 [History Last Taken 04/22/21] duloxetine 60 mg capsule,delayed release 90 mg PO QHS 08/21/15 [History Last Taken 04/21/21] baclofen 10 mg tablet 40 mg PO Q6H SPASMS 08/16/16 [History Last Taken 04/22/21] acetaminophen 325 mg tablet 650 mg PO Q4H PRN PRN Pain 03/01/18 [History Last Taken 04/21/21] bisacodyl 10 mg rectal suppository 10 mg [place] QHS PRN Constipation 03/01/18 [History Last Taken 04/21/21] omeprazole 20 mg capsule,delayed release 20 mg PO LUNCH 03/01/18 [History Last Taken 04/22/21] furosemide 40 mg tablet 40 mg PO BREAKFAST 05/26/18 [History Last Taken 04/22/21] sennosides 8.6 mg tablet 17.2 mg PO BID 08/16/18 [History Last Taken 04/22/21] cholecalciferol (vitamin D3) 50 mcg (2,000 unit) capsule 2,000 unit PO LUNCH SUPPLEMENT 08/08/19 [History Last Taken 04/22/21] polyethylene glycol 3350 17 gram oral powder packet 17 gm PO QHS 08/08/19 [History Last Taken 04/21/21] docusate sodium 100 mg capsule (Colace) 200 mg PO QHS 10/11/20 [History Last Taken 04/21/21] furosemide 20 mg tablet 20 mg PO LUNCH 04/21/21 [History Last Taken 04/22/21] buspirone 7.5 mg tablet 10 mg PO TID 04/22/21 [History Last Taken 04/22/21] gabapentin 800 mg tablet 1,600 mg PO TID NEUROPATHY 04/22/21 [History Last Taken 04/22/21] isosorbide mononitrate 30 mg tablet,extended release 24 hr 30 mg PO QHS 04/22/21[History Last Taken 04/21/21] oxybutynin chloride 10 mg tablet,extended release 24 hr 30 mg PO DAILY BLADDER 04/22/21 [History Last Taken 04/22/21] potassium chloride 10 mEq capsule,extended release 10 meq PO DAILY 04/22/21 [History Last Taken 04/22/21] phenazopyridine 200 mg tablet (Pyridium) 200 mg PO TID PRN Bladder Spasms 05/27/21 [History Last Taken Unknown] loperamide 2 mg tablet 1 mg PO Q4H PRN Diarrhea 06/03/22 [History Last Taken Unknown] magnesium hydroxide 400 mg/5 mL oral suspension (Milk of Magnesia) 30 ml PO DAILY PRN Constipation 06/03/22 [History Last Taken Unknown] melatonin 5 mg tablet 5 mg PO QHS 06/03/22 [History Last Taken Unknown] mirtazapine 30 mg tablet 15 mg PO QHS 06/03/22 [History Last Taken Unknown] ondansetron HCl 4 mg tablet 4 mg PO Q4H PRN Nausea 06/03/22 [History Last Taken Unknown] paroxetine HCl 10 mg tablet 10 mg PO QHS 06/03/22 [History Last Taken Unknown] simethicone 80 mg tablet 80 mg PO DAILY PRN Gastric Reflux 06/03/22 [History Last Taken Unknown] buprenorphine 15 mcg/hour weekly transdermal patch (Butrans) 1 mcg transdermal QWEEK 09/12/22 [History Last Taken Unknown] cephalexin 250 mg capsule 250 mg PO DAILY 09/12/22 [History Last Taken Unknown] cetirizine 10 mg tablet 10 mg PO DAILY 09/12/22 [History Last Taken Unknown] Allergy/AdvReac Type Severity Reaction Status Date / Time apixaban [From [facility]] Allergy Rash Verified 09/12/22 09:06 coconut oil Allergy cant breath Verified 09/12/22 09:06 mometasone furoate Allergy Rash Verified 09/12/22 09:06 [From Elocon] morphine Allergy NEEDS Verified 09/12/22 09:06 FOLLOW-UP nitrofurantoin Allergy Unknown Verified 09/12/22 09:06 rivaroxaban [From Xarelto] Allergy Rash Verified 09/12/22 09:06 Sulfa (Sulfonamide Allergy Shortness Verified 09/12/22 09:06 Antibiotics) of breath Penicillins AdvReac NEEDS Verified 09/12/22 09:06 FOLLOW-UP Family History Mother Diabetes Grandfather CAD (coronary artery disease) Colon cancer Grandmother Breast cancer Aunt Ovarian cancer Surgical History History of tracheostomy (2010) Social History Smoking Status: Never smoker ROS ROS Narrative As stated in history of present illness others negative Physical Exam Narrative Alert responsive does not appear toxic on nasal cannula O2. Lungs with some scattered rhonchi heart exam S1-S2 abdomen is obese but soft. Mccarthy catheter inplace/suprapubic Lab / Micro Data Result Diagrams: 09/14/22 05:29 09/14/22 05:29 Labs: Laboratory Results - last 24 hr 09/13/22 09:35: MRSA (PCR) POSITIVE H 09/14/22 05:29: WBC 9.0, RBC 3.86 L, Hgb 10.1 L, Hct 34.7 L, MCV 89.9, MCH 26.2 L, MCHC 29.1 L, RDW Std Deviation 53.1 H, RDW Coeff of Juan Antonio 16.1 H, Plt Count 277, MPV 9.2, Immature Gran % (Auto) 0.400, Neut % (Auto) 62.5, Lymph % (Auto) 24.0, Mower % (Auto) 8.3, Eos % (Auto) 4.2, Baso % (Auto) 0.6, Absolute Neuts (auto) 5.6, Absolute Lymphs (auto) 2.16, Nucleated RBC % 0 09/14/22 05:29: Sodium 139, Potassium 3.8, Chloride 106, Carbon Dioxide 31.0, Anion Gap 2 L, BUN 8, Creatinine 0.23 L, Estim Creat Clear Calc 225.72, Est GFR (MDRD) Af Amer 414, Est GFR (MDRD) Non-Af 342, BUN/Creatinine Ratio 34.8 H, Glucose 117 H, Calcium 8.3 L, Total Bilirubin 0.20, AST 23, ALT 36, Alkaline Phosphatase 73, Total Protein 6.7, Albumin 2.5 L, Globulin 4.2, Albumin/GlobulinRatio 0.6 L Micro: Microbiology 09/13/22 09:35 Suprapubic Tap Urine Culture - Preliminary 09/13/22 09:35 Urine Catheter - Catheter Legionella Antigen - Final 09/13/22 09:35 Urine Catheter - Catheter Streptococcus pneumoniae Antigen (M- Final 09/14/22 1103 <Electronically signed by Paolo Ho MD> Cosigner Signature (if applicable): CC: Dr. Shari Pastro MD; Dr. Lavon Vicente MD; Dr. Paul Walsh MD~ [facility]igned [facility] Work Phone: 1([phone]) 264-558904-02-[address] Pastor [facility] September 13, 2022 11:53am Note Date/Time September 13, 2022 10:0 2am [facility] Medical Records Department [address] [place] [id number] Progress Note - Hospitalist 09/13/22 1002 MR#: [id number] Acct: [id number] Name: HENRIK REED Rep #:[id number] : 1975 47 From: Shari Pastor MD PCP: Dr. Lavon Vicente MD Status:ADM I N Location: [place] [address] Reason for Visit Reason for Visit: Diagnoses Pneumonia, unspecified organism (09/12/22) Subjective Subjective Continues to have shortness of breath and cough, reports she feels slightly improved Objective Data Objective Data Vital Signs: Vital Signs Temp Pulse Resp BP Pulse Ox O2 Del Method O2 Flow Rate 97 F L 88 18 110/68 87 Nasal Cannula 6 09/13/22 04:20 09/13/22 07:30 09/13/22 07:30 09/13/22 04:20 09/13/22 07:30 09/13/22 07:30 09/13/22 07:30 Oxygen Flow Rate (L/min) 6 Oxygen Delivery Method Nasal Cannula Weight: 120 kg Body Mass Index (BMI) 49.9 Intake & Output: Intake and Output for Last 24 Hours 09/11/22 09/12/22 09/13/22 23:59 23:59 23:59 Intake Total 2865 / 2865 540 / 540 Output Total 501 900 / 900 Balance 2864 / 2364 -360 / -360 Lab / Micro Data Result Diagrams: 09/13/22 08:00 09/13/22 08:00 Labs: Laboratory Results - last 24 hr 09/12/22 09:20: WBC 17.3 H, RBC 4.67, Hgb 12.3, Hct 40.2, MCV 86.1, MCH 26.3 L, MCHC 30.6 L, RDW Std Deviation 50.2 H, RDW Coeff of Juan Antonio 15.9 H, Plt Count 321, MPV 9.4, Immature Gran % (Auto) 0.300, Neut % (Auto) 84.0 H, Lymph % (Auto) 8.3 L, Mower % (Auto) 5.4, Eos % (Auto) 1.7, Baso % (Auto) 0.3, Absolute Neuts (auto)14.5 H, Absolute Lymphs (auto) 1.43, Nucleated RBC % 0 09/12/22 09:20: Sodium 136, Potassium 3.5, Chloride 100, Carbon Dioxide 29.0, Anion Gap 7, BUN 6 L, Creatinine 0.35 L, Estim Creat Clear Calc 148.33, Est GFR (MDRD) Af Amer 256, Est GFR (MDRD) Non-Af 211, BUN/Creatinine Ratio 17.2, Glucose 141 H, Calcium 9.0, Troponin I High Sens 8 09/12/22 09:20: D-Dimer Quant (PE/DVT) 1.11 H* 09/12/22 09:20: B-Natriuretic Peptide 45.3 09/12/22 10:05: Urine Color Red, Urine Clarity Cloudy, Urine pH 8.0, Ur SpecificGravity 1.015, Urine Protein 100 H, Urine Glucose (UA) Normal, Urine Ketones Negative, Urine Occult Blood 250 H, Urine Nitrite Negative, Urine Bilirubin Negative, Urine Urobilinogen Normal, Ur Leukocyte Esterase 500 H, Urine RBC > 100 SEEN, Urine WBC 10-25 SEEN, Ur Squamous Epith Cells 0 SEEN, Urine Bacteria 2+, Urine Mucus 0 SEEN 09/12/22 12:55: Troponin I High Sens 7 09/12/22 15:15: Lactic Acid 0.9 09/12/22 15:15: Procalcitonin 0.15 H 09/13/22 08:00: WBC 10.1, RBC 3.78 L, Hgb 9.9 L, Hct 33.5 L, MCV 88.6, MCH 26.2 L, MCHC 29.6 L, RDW Std Deviation 52.8 H, RDW Coeff of Juan Antonio 16.3 H, Plt Count 298, MPV 9.1, Immature Gran % (Auto) 0.500, Neut % (Auto) 64.4, Lymph % (Auto) 25.5, Mower % (Auto) 6.1, Eos % (Auto) 3.1, Baso % (Auto) 0.4, Absolute Neuts (auto) 6.5, Absolute Lymphs (auto) 2.59, Nucleated RBC % 0 09/13/22 08:00: Sodium 138, Potassium 3.0 L, Chloride 105, Carbon Dioxide 30.0, Anion Gap 3 L, BUN 6 L, Creatinine 0.33 L, Estim Creat Clear Calc 157.32, Est GFR (MDRD) Af Amer 275, Est GFR (MDRD) Non-Af 227, BUN/Creatinine Ratio 18.3, Glucose 113 H, Calcium 8.7, Total Bilirubin 0.30, AST 21, ALT 38, Alkaline Phosphatase 77, Total Protein 7.0, Albumin 2.6 L, Globulin 4.4 H, Albumin/Globulin Ratio 0.6 L, TSH 1.88 Micro: Microbiology 09/12/22 16:29 Mucosa - Nose Respiratory Panel (PCR) - Final Rhinovirus 09/12/22 09:32 Nasal Secretion SARS-CoV-2 & FLU Antigen (Rapid) - Final Radiography Diagnostic Testing: Radiology Impression Chest X-Ray 09/12/22 10:03 IMPRESSION: Mild pulmonary vascular congestion and perihilar opacities, concerning for mild pulmonary edema. Electronically Signed: Mary Keller MD at 11:03 EDT Reading Location ID and State: [facility] / [place] Tel , Service support , Chest CTA 09/12/22 10:52 IMPRESSION: No evidence of acute pulmonary embolism or aortic aneurysm or dissection. Diffuse right-sided pneumonia. Bibasilar atelectasis. Enlarged steatotic liver. Electronically Signed: Steven Rodney MD at 12:23 EDT Reading Location ID and State: [facility] / [place] Tel , Service support , Physical Exam Narrative General: Alert, oriented, no apparent distress HEENT: Atraumatic, normocephalic Eyes: Anicteric, normal conjunctiva, extraocular movements grossly intact Neck: Supple Respiratory: Diffuse wheezes, coarse throughout, slight increased work of breathing Cardiovascular: Regular rate and rhythm GI: Soft, nontender, nondistended Extremities: Trace edema bilateral lower extremities Musculoskeletal: Does not move lower extremities Neuro: Paraplegic Skin: No overt rashes appreciated Psych: Cooperative Assessment & Plan Assessment/Plan (1) Pneumonia: PLAN: Plan #Urinary tract infection/neurogenic bladder status post suprapubic catheter -In the past she has grown VRE as well as Morganella and Proteus with various resistance patterns. -White blood cell count 17 but is vitally stable, blood pressure recorded of 86/61 was rechecked by ED physician and systolic was in the 1 teens. Tmax of 100.1. Heart rates been in the 90s, had one heart rate of 110 -Do not think that she is septic at this time -Given penicillin allergy she will be started on Merrem given VRE she will be given linezolid -UA suggestive of UTI -Cultures ordered -We will plan to consult ID -Of note she is supposed to see Dr. Rodriguez next week to establish care -09/13: Urine culture and blood culture is pending, ID consult pending #Right-sided pneumonia/shortness of breath/history of sleep apnea noncompliant with CPAP/rhinovirus -CT with diffuse right-sided pneumonia -COVID-negative -We will obtain respiratory cultures, respiratory panel -DuoNebs and as needed albuterol -Sputum culture -Urine antigens -We will also send Pro-Ye for antibiotic de-escalation purposes -Mucinex, I/S -On Merrem and linezolid, will add azithromycin for atypicals though less likely -Received 2 L of IV fluid -CTA negative for PE, BNP 45 -Suspect this is all secondary to pneumonia -Discussed BiPAP if breathing worsens and she is very resistant to this. Does report that she is DO NOT RESUSCITATE but okay for intubation however -Theoretically willing to try BiPAP if no other option -/: Positive for rhinovirus, continue supportive care. Antibiotics continued as per #1 and will de-escalate as appropriate with cultures and appreciate ID recommendations #Paraplegia secondary to spinal cord injury in 2010 -Continue home pain medications -Suprapubic catheter care -Home medications listed as BuSpar, mirtazapine, Paxil, Cymbalta. Paxil is an SSRI and Cymbalta as an SNRI certainly should not be used together due to increased risk of side effects, will attempt to verify if she is taking both of these. We will hold BuSpar, Paxil, Cymbalta while getting linezolid but will de-escalate this as quickly as possible so she can resume her home medications #Hypothyroidism -Continue Synthroid #Morbid obesity -BMI 50.6 kg/m? -Complicates treatment, prognosis, outcomes -Recommend weight loss and lifestyle changes #DVT ppx: Lovenox subcu Shari Pastor MD Time spent in the patient's overall evaluation,decision-making process, review of diagnostic data, adjustment of management, discussion with other providers, nursing nursing and ancillary staff involved in patient's care documentation, 30minutes Charges/Coding Visit Charges Inpatient E&M: 87189 Subs Hosp L2 09/13/22 1153 <Electronically signed by Shari Pastor MD> Cosigner Signature (if applicable): CC: ~ Signed [facility] Work Phone: 1(933) 454-191204-01-[address] Aguila [facility] September 12, 2022 3:58pm Note Date/Time September 12, 2022 10:0 9am [facility] Medical Records Department [address] [place] [address] Emergency Department Summary 09/12/22 MR#: [id number] Acct: [id number] Name: HENRIK REED Rep #:[id number] : 1975 47 From: Estevan Aguila DO PCP: Dr. Lavon Vicente MD Status:ADM I N Location: [address] History of Present Illness Chief Complaint: Shortness of Breath Narrative Narrative: 47-year-old female with history of paraplegia, neurogenic bladder presenting with cough, shortness of breath x3 to 4 days. Patient states that she is producing sputum. She does not noted any body aches or fevers. She states she was told when she arrived that she had a temperature of 100.1. She also reportsintermittent chest pains which occur when she is coughing. Patient also states she has blood in her urine. She is concerned she might have a UTI. She states that she supposed to be establishing with Dr. Rodriguez next week. Previously shesaw somebody at [facility]. She has a suprapubic catheter. [facility] Medical History Abnormal EKG Chronic headaches Chronic pain Cocaine abuse Deep vein thrombosis of right lower extremity Depression Exogenous obesity Heroin use History of Tamxh-Ulqzatzde-Yqvqy (WPW) syndrome Hx: UTI (urinary tract infection) Hypothyroidism Left femoral shaft fracture Malnutrition of mild degree Neuromuscular dysfunction of bladder Paraplegia Pre-operative cardiovascular exam, new EKG abnormalities c/w ischemia Quadriparesis Right ischial pressure sore, stage 4 Spinal cord injury (2010) Suprapubic catheter Home Medications levothyroxine 75 mcg tablet 75 mcg PO DAILY 05/28/15 [History Last Taken 04/22/21] duloxetine 60 mg capsule,delayed release 90 mg PO QHS 08/21/15 [History Last Taken 04/21/21] baclofen 10 mg tablet 40 mg PO Q6H SPASMS 08/16/16 [History Last Taken 04/22/21] acetaminophen 325 mg tablet 650 mg PO Q4H PRN PRN Pain 03/01/18 [History Last Taken 04/21/21] bisacodyl 10 mg rectal suppository 10 mg [place] QHS PRN Constipation 03/01/18 [History Last Taken 04/21/21] omeprazole 20 mg capsule,delayed release 20 mg PO LUNCH 03/01/18 [History Last Taken 04/22/21] furosemide 40 mg tablet 40 mg PO BREAKFAST 05/26/18 [History Last Taken 04/22/21] sennosides 8.6 mg tablet 17.2 mg PO BID 08/16/18 [History Last Taken 04/22/21] cholecalciferol (vitamin D3) 50 mcg (2,000 unit) capsule 2,000 unit PO LUNCH SUPPLEMENT 08/08/19 [History Last Taken 04/22/21] polyethylene glycol 3350 17 gram oral powder packet 17 gm PO QHS 08/08/19 [History Last Taken 04/21/21] docusate sodium 100 mg capsule (Colace) 200 mg PO QHS 10/11/20 [History Last Taken 04/21/21] furosemide 20 mg tablet 20 mg PO LUNCH 04/21/21 [History Last Taken 04/22/21] buspirone 7.5 mg tablet 10 mg PO TID 04/22/21 [History Last Taken 04/22/21] gabapentin 800 mg tablet 1,600 mg PO TID NEUROPATHY 04/22/21 [History Last Taken 04/22/21] isosorbide mononitrate 30 mg tablet,extended release 24 hr 30 mg PO QHS 04/22/21[History Last Taken 04/21/21] oxybutynin chloride 10 mg tablet,extended release 24 hr 30 mg PO DAILY BLADDER 04/22/21 [History Last Taken 04/22/21] potassium chloride 10 mEq capsule,extended release 10 meq PO DAILY 04/22/21 [History Last Taken 04/22/21] phenazopyridine 200 mg tablet (Pyridium) 200 mg PO TID PRN Bladder Spasms 05/27/21 [History Last Taken Unknown] loperamide 2 mg tablet 1 mg PO Q4H PRN Diarrhea 06/03/22 [History Last Taken Unknown] magnesium hydroxide 400 mg/5 mL oral suspension (Milk of Magnesia) 30 ml PO DAILY PRN Constipation 06/03/22 [History Last Taken Unknown] melatonin 5 mg tablet 5 mg PO QHS 06/03/22 [History Last Taken Unknown] mirtazapine 30 mg tablet 15 mg PO QHS 06/03/22 [History Last Taken Unknown] ondansetron HCl 4 mg tablet 4 mg PO Q4H PRN Nausea 06/03/22 [History Last Taken Unknown] paroxetine HCl 10 mg tablet 10 mg PO QHS 06/03/22 [History Last Taken Unknown] simethicone 80 mg tablet 80 mg PO DAILY PRN Gastric Reflux 06/03/22 [History Last Taken Unknown] buprenorphine 15 mcg/hour weekly transdermal patch (Butrans) 1 mcg transdermal QWEEK 09/12/22 [History Last Taken Unknown] cephalexin 250 mg capsule 250 mg PO DAILY 09/12/22 [History Last Taken Unknown] cetirizine 10 mg tablet 10 mg PO DAILY 09/12/22 [History Last Taken Unknown] Allergy/AdvReac Type Severity Reaction Status Date / Time apixaban [From Eliquis] Allergy Rash Verified 09/12/22 09:06 coconut oil Allergy cant breath Verified 09/12/22 09:06 mometasone furoate Allergy Rash Verified 09/12/22 09:06 [From Elocon] morphine Allergy NEEDS Verified 09/12/22 09:06 FOLLOW-UP nitrofurantoin Allergy Unknown Verified 09/12/22 09:06 rivaroxaban [From Xarelto] Allergy Rash Verified 09/12/22 09:06 Sulfa (Sulfonamide Allergy Shortness Verified 09/12/22 09:06 Antibiotics) of breath Penicillins AdvReac NEEDS Verified 09/12/22 09:06 FOLLOW-UP Family History Mother Diabetes Grandfather CAD (coronary artery disease) Colon cancer Grandmother Breast cancer Aunt Ovarian cancer Surgical History History of tracheostomy (2010) Social History Smoking Status: Never smoker ROS ROS ED Review of Systems ROS Unobtainable: Denies due to encephalopathy Constitutional Constitutional ED: Reports fever(s); Denies chills Eyes Eyes: Denies change in vision or diplopia ENT ENT ED: Denies rhinorrhea or sore throat Cardiovascular Cardiovascular: Reports chest pain Respiratory/Chest Respiratory/Chest: Reports cough and dyspnea Gastrointestinal Gastrointestinal: Denies abdominal pain, nausea or other Genitourinary Genitourinary ED: Reports hematuria Musculoskeletal Musculoskeletal: Denies arthralgias or back pain Integumentary Denies abscess Neurologic Neurologic: Denies headache(s) or paresthesias EXAM Physical Exam Const Vital Signs: 09/12/22 09:06 09/12/22 09:29 09/12/22 09:31 Temperature 100.1 F H 100.1 F H Temperature Source Oral Oral Pulse Rate 91 68 Respiratory Rate 29 H 16 Respiratory Effort Short of Breath Labored Accessory Muscle Use Respiratory Depth Normal Respiratory Pattern Tachypnea Blood Pressure 181/109 H 96/78 Blood Pressure Mean 133 84 Pulse Ox 94 94 Oxygen Delivery Method Nasal Cannula Nasal Cannula Nasal Cannula Oxygen Flow Rate (L/min) 4 4 4 09/12/22 10:10 09/12/22 11:53 09/12/22 13:12 Temperature 98.9 F Temperature Source Oral Pulse Rate 110 H 96 Respiratory Rate 22 H 16 Respiratory Effort Respiratory Depth Respiratory Pattern Blood Pressure 116/69 86/61 L Blood Pressure Mean 84 69 Pulse Ox 94 96 94 Oxygen Delivery Method Nasal Cannula Nasal Cannula Oxygen Flow Rate (L/min) 4 4 09/12/22 13:54 Temperature 97.6 F L Temperature Source Oral Pulse Rate 92 Respiratory Rate 20 H Respiratory Effort Respiratory Depth Respiratory Pattern Blood Pressure 107/67 Blood Pressure Mean 80 Pulse Ox 99 Oxygen Delivery Method Nasal Cannula Oxygen Flow Rate (L/min) 6 Positive well nourished and obese General Appearance ED: NAD Nutritional Appearance: obese HEENT Reports moist mucous membranes atraumatic Eyes PERRL and EOMs intact bilaterally Neck no lymphadenopathy Resp normal respiratory effort and clear to auscultation bilaterally Auscultation: Negative for rales, rhonchi or wheezes Cardio regular rate and regular rhythm GI non-tender Auscultation: normoactive bowel sounds Neuro oriented x3 and CN's II-XII intact bilaterally Motor Exam: strength 5/5 throughout Psych mental status grossly normal MDM MDM MDM Narrative Medical decision making narrative: Patient presenting with shortness of breath and coughing for the last few days. Is a low-grade fever on arrival. Otherwise her vital signs are stable. Patientcomplaining of intermittent chest pain with coughing as well. Differential includes but is not limited to ACS, PE, aortic dissection, pneumonia, pneumothorax, muscle strain, costochondritis. CBC to assess white blood cell count, hemoglobin, platelets, differential. BMP to assess renal function, electrolytes, glucose, anion gap. D- dimer to assess for PE/DVT. High-sensitivity troponin. Test for cardiac source as well as EKG and chest x-ray. EKG on my interpretation shows a sinus rhythm 88 bpm without sign ischemic change or dysrhythmia. Chest x-ray on my interpretation shows concern for vascular congestion but does appear to show a right-sided infiltrate. CBC showsleukocytosis at 17.3 with left shift. Hemoglobin macular stable. Platelets arenormal. D-dimer not elevated 1.11 and patient had a CTA of the chest which shows right-sided pneumonia fairly diffusely. No evidence of PE or dissection. High-sensitivity troponin came back at 7 BMP shows normal renal function and electrolytes. Glucose slightly elevated 141 without anion gap. Urinalysis consistent with UTI. Review of the medical record shows that her last urine culture showed resistance pattern to oral antibiotics. She also has VRE. Giventhe pneumonia and UTI I think she benefit from inpatient care. Discussed with the hospitalist who recommended meropenem given her allergy to penicillin and linezolid given she has a history of VRE. Patient was amenable to hospitalization. Admitted in stable condition. Impression: 1. Chest pain 2. Right-sided pneumonia 3. UTI Lab Data Labs: Laboratory Results - last 24 hr 09/12/22 09/12/22 09/12/22 09:20 09:20 09:20 WBC 17.3 H RBC 4.67 Hgb 12.3 Hct 40.2 MCV 86.1 MCH 26.3 L MCHC 30.6 L RDW Std Deviation 50.2 H RDW Coeff of Juan Antonio 15.9 H Plt Count 321 MPV 9.4 Immature Gran % (Auto) 0.300 Neut % (Auto) 84.0 H Lymph % (Auto) 8.3 L Mower % (Auto) 5.4 Eos % (Auto) 1.7 Baso % (Auto) 0.3 Absolute Neuts (auto) 14.5 H Absolute Lymphs (auto) 1.43 Nucleated RBC % 0 D-Dimer Quant (PE/DVT) 1.11 H* Sodium 136 Potassium 3.5 Chloride 100 Carbon Dioxide 29.0 Anion Gap 7 BUN 6 L Creatinine 0.35 L Estim Creat Clear Calc 148.33 Est GFR (MDRD) Af Amer 256 Est GFR (MDRD) Non-Af 211 BUN/Creatinine Ratio 17.2 Glucose 141 H Calcium 9.0 Troponin I High Sens 8 B-Natriuretic Peptide Urine Color Urine Clarity Urine pH Ur Specific Prince Urine Protein Urine Glucose (UA) Urine Ketones Urine Occult Blood Urine Nitrite Urine Bilirubin Urine Urobilinogen Ur Leukocyte Esterase Urine RBC Urine WBC Ur Squamous Epith Cells Urine Bacteria Urine Mucus 09/12/22 09/12/22 09/12/22 09:20 10:05 12:55 WBC RBC Hgb Hct MCV MCH MCHC RDW Std Deviation RDW Coeff of Juan Antonio Plt Count MPV Immature Gran % (Auto) Neut % (Auto) Lymph % (Auto) Mower % (Auto) Eos % (Auto) Baso % (Auto) Absolute Neuts (auto) Absolute Lymphs (auto) Nucleated RBC % D-Dimer Quant (PE/DVT) Sodium Potassium Chloride Carbon Dioxide Anion Gap BUN Creatinine Estim Creat Clear Calc Est GFR (MDRD) Af Amer Est GFR (MDRD) Non-Af BUN/Creatinine Ratio Glucose Calcium Troponin I High Sens 7 B-Natriuretic Peptide 45.3 Urine Color Red Urine Clarity Cloudy Urine pH 8.0 Ur Specific Prince 1.015 Urine Protein 100 H Urine Glucose (UA) Normal Urine Ketones Negative Urine Occult Blood 250 H Urine Nitrite Negative Urine Bilirubin Negative Urine Urobilinogen Normal Ur Leukocyte Esterase 500 H Urine RBC > 100 SEEN Urine WBC 10-25 SEEN Ur Squamous Epith Cells 0 SEEN Urine Bacteria 2+ Urine Mucus 0 SEEN Radiography Diagnostic Testing: Clinical Impression(s) from Imaging Studies Chest X-Ray 09/12/22 10:03 IMPRESSION: Mild pulmonary vascular congestion and perihilar opacities, concerning for mild pulmonary edema. Electronically Signed: Mary Keller MD at 11:03 EDT , Chest CTA 09/12/22 10:52 IMPRESSION: No evidence of acute pulmonary embolism or aortic aneurysm or dissection. Diffuse right-sided pneumonia. Bibasilar atelectasis. Enlarged steatotic liver. Electronically Signed: Steven Rodney MD at 12:23 EDT , Discharge Plan Disposition Disposition: Acute Care Hospital [facility] Discharge Date/Time: 09/12/22 15:44 What to do if you have Problems For any increased pain, shortness of breath, bleeding, nausea or vomiting, chestpain, or any unexpected problems, contact your Primary Care Provider. Call [facility] ([phone]) or report to the closest Emergency Room. Call 911 if necessary. 09/12/22 1558 <Electronically signed by Estevan Aguila DO> Cosigner Signature (if applicable): CC: Dr. Lavon Vicente MD ~ Signed [facility] Work Phone: 1(534) 768-164104-01-2023 History and physical note Author Dr. Pastor [facility] September 12, 2022 3:13pm Note Date/Time September 12, 2022 2:55 pm [facility] Medical Records Department [address] [place] [id number] H&P Exam - Hospitalist 09/12/22 1449 MR#: [id number] Acct: [id number] Name: HENRIK REED Rep #:[id number] : 1975 47 From: Shari Pastor MD PCP: Dr. Lavon Vicente MD Status:ADM I N Location: [facility] [id number] HPI - General General Date of Admission: 09/12/22 Date of Service: 09/12/22 Chief Complaint: SOB HPI Narrative Ms. Reed is a 47-year-old female with a history of paraplegia since 2010 with a suprapubic catheter and history of UTIs as well as DVT of right lower extremity, and morbid obesity who presented to [facility] from [facility] 09/12 due to shortness of breath for 3 to 4 days with sputum production and she was also concerned she might have a UTI because there was blood in her suprapubic catheter. In ED her white blood cell count was 17.3, D-dimer 1.11, troponin 8 and then 7, BNP 45, and UA suggestive of UTI. CT obtained that demonstrated diffuse right-sided pneumonia and bibasilar atelectasis as well as enlarged steatotic liver. Hospitalist consulted for admission for UTI, pneumonia, IV antibiotics. Patient evaluated at bedside and she reports she has had shortness of breath worsening over the past week and productive cough that she has felt very bad overall. Has not had her temperature measured and she is unsure if she was febrile. Reports that she haschest pain when she coughs or takes a deep breath and that is very uncomfortablefor her. Had a slight headache earlier today. Also concerned she had a UTI dueto blood in her suprapubic catheter. Denies any bedsores at present or other wounds of note. [facility] Medical History Abnormal EKG Chronic headaches Chronic pain Cocaine abuse Deep vein thrombosis of right lower extremity Depression Exogenous obesity Heroin use History of Mgelv-Xiwtccpkb-Jggqs (WPW) syndrome Hx: UTI (urinary tract infection) Hypothyroidism Left femoral shaft fracture Malnutrition of mild degree Neuromuscular dysfunction of bladder Paraplegia Pre-operative cardiovascular exam, new EKG abnormalities c/w ischemia Quadriparesis Right ischial pressure sore, stage 4 Spinal cord injury (2010) Suprapubic catheter Home Medications levothyroxine 75 mcg tablet 75 mcg PO DAILY 05/28/15 [History Last Taken 04/22/21] duloxetine 60 mg capsule,delayed release 90 mg PO QHS 08/21/15 [History Last Taken 04/21/21] baclofen 10 mg tablet 40 mg PO Q6H SPASMS 08/16/16 [History Last Taken 04/22/21] acetaminophen 325 mg tablet 650 mg PO Q4H PRN PRN Pain 03/01/18 [History Last Taken 04/21/21] bisacodyl 10 mg rectal suppository 10 mg [place] QHS PRN Constipation 03/01/18 [History Last Taken 04/21/21] omeprazole 20 mg capsule,delayed release 20 mg PO LUNCH 03/01/18 [History Last Taken 04/22/21] furosemide 40 mg tablet 40 mg PO BREAKFAST 05/26/18 [History Last Taken 04/22/21] sennosides 8.6 mg tablet 17.2 mg PO BID 08/16/18 [History Last Taken 04/22/21] cholecalciferol (vitamin D3) 50 mcg (2,000 unit) capsule 2,000 unit PO LUNCH SUPPLEMENT 08/08/19 [History Last Taken 04/22/21] polyethylene glycol 3350 17 gram oral powder packet 17 gm PO QHS 08/08/19 [History Last Taken 04/21/21] docusate sodium 100 mg capsule (Colace) 200 mg PO QHS 10/11/20 [History Last Taken 04/21/21] furosemide 20 mg tablet 20 mg PO LUNCH 04/21/21 [History Last Taken 04/22/21] buspirone 7.5 mg tablet 10 mg PO TID 04/22/21 [History Last Taken 04/22/21] gabapentin 800 mg tablet 1,600 mg PO TID NEUROPATHY 04/22/21 [History Last Taken 04/22/21] isosorbide mononitrate 30 mg tablet,extended release 24 hr 30 mg PO QHS 04/22/21[History Last Taken 04/21/21] oxybutynin chloride 10 mg tablet,extended release 24 hr 30 mg PO DAILY BLADDER 04/22/21 [History Last Taken 04/22/21] potassium chloride 10 mEq capsule,extended release 10 meq PO DAILY 04/22/21 [History Last Taken 04/22/21] phenazopyridine 200 mg tablet (Pyridium) 200 mg PO TID PRN Bladder Spasms 05/27/21 [History Last Taken Unknown] loperamide 2 mg tablet 1 mg PO Q4H PRN Diarrhea 06/03/22 [History Last Taken Unknown] magnesium hydroxide 400 mg/5 mL oral suspension (Milk of Magnesia) 30 ml PO DAILY PRN Constipation 06/03/22 [History Last Taken Unknown] melatonin 5 mg tablet 5 mg PO QHS 06/03/22 [History Last Taken Unknown] mirtazapine 30 mg tablet 15 mg PO QHS 06/03/22 [History Last Taken Unknown] ondansetron HCl 4 mg tablet 4 mg PO Q4H PRN Nausea 06/03/22 [History Last Taken Unknown] paroxetine HCl 10 mg tablet 10 mg PO QHS 06/03/22 [History Last Taken Unknown] simethicone 80 mg tablet 80 mg PO DAILY PRN Gastric Reflux 06/03/22 [History Last Taken Unknown] buprenorphine 15 mcg/hour weekly transdermal patch (Butrans) 1 mcg transdermal QWEEK 09/12/22 [History Last Taken Unknown] cephalexin 250 mg capsule 250 mg PO DAILY 09/12/22 [History Last Taken Unknown] cetirizine 10 mg tablet 10 mg PO DAILY 09/12/22 [History Last Taken Unknown] Allergy/AdvReac Type Severity Reaction Status Date / Time apixaban [From [facility]] Allergy Rash Verified 09/12/22 09:06 coconut oil Allergy cant breath Verified 09/12/22 09:06 mometasone furoate Allergy Rash Verified 09/12/22 09:06 [From Elocon] morphine Allergy NEEDS Verified 09/12/22 09:06 FOLLOW-UP nitrofurantoin Allergy Unknown Verified 09/12/22 09:06 rivaroxaban [From Xarelto] Allergy Rash Verified 09/12/22 09:06 Sulfa (Sulfonamide Allergy Shortness Verified 09/12/22 09:06 Antibiotics) of breath Penicillins AdvReac NEEDS Verified 09/12/22 09:06 FOLLOW-UP Family History Mother Diabetes Grandfather CAD (coronary artery disease) Colon cancer Grandmother Breast cancer Aunt Ovarian cancer Surgical History History of tracheostomy (2010) Social History Smoking Status: Never smoker ROS ROS Narrative General: Has felt generally unwell HENT: Earlier had a headache, denies stuffy nose, denies sore throat EYES: Denies changes in vision Resp: Shortness of breath and productive cough Cardiac: Denies chest pain GI: Denies abdominal pain, feels she needs to have a bowel movement, denies nausea/vomiting : Red in her suprapubic catheter bag Extremity: Reports she does feel little bit swollen MSK: Cannot move legs Neuro: Paraplegic Heme: Bleeding and suprapubic catheter Skin: Denies rashes Psychiatric: No complaints voiced Vital Signs Vital Signs Vital Signs: 09/12/22 09:06 09/12/22 09:29 09/12/22 09:31 Temperature 100.1 F H 100.1 F H Temperature Source Oral Oral Pulse Rate 91 68 Respiratory Rate 29 H 16 Respiratory Effort Short of Breath Labored Accessory Muscle Use Respiratory Depth Normal Respiratory Pattern Tachypnea Blood Pressure 181/109 H 96/78 Blood Pressure Mean 133 84 Pulse Ox 94 94 Oxygen Delivery Method Nasal Cannula Nasal Cannula Nasal Cannula Oxygen Flow Rate (L/min) 4 4 4 09/12/22 10:10 09/12/22 11:53 09/12/22 13:12 Temperature 98.9 F Temperature Source Oral Pulse Rate 110 H 96 Respiratory Rate 22 H 16 Respiratory Effort Respiratory Depth Respiratory Pattern Blood Pressure 116/69 86/61 L Blood Pressure Mean 84 69 Pulse Ox 94 96 94 Oxygen Delivery Method Nasal Cannula Nasal Cannula Oxygen Flow Rate (L/min) 4 4 09/12/22 13:54 Temperature 97.6 F L Temperature Source Oral Pulse Rate 92 Respiratory Rate 20 H Respiratory Effort Respiratory Depth Respiratory Pattern Blood Pressure 107/67 Blood Pressure Mean 80 Pulse Ox 99 Oxygen Delivery Method Nasal Cannula Oxygen Flow Rate (L/min) 6 Weight Weight: 121.5 kg Body Mass Index (BMI) 50.5 Physical Exam Narrative General: Alert, oriented, no apparent distress HEENT: Atraumatic, normocephalic Eyes: Anicteric, normal conjunctiva, extraocular movements grossly intact Neck: Supple Respiratory: Diffuse wheezes, coarse throughout, slight increased work of breathing Cardiovascular: Regular rate and rhythm GI: Soft, nontender, nondistended Extremities: Trace edema bilateral lower extremities Musculoskeletal: Does not move lower extremities Neuro: Paraplegic Skin: Seems to have a faint red rash on left arm Psych: Cooperative Results Lab / Micro Data Result Diagrams: 09/12/22 09:20 09/12/22 09:20 Labs: Laboratory Results - last 24 hr 09/12/22 09:20: WBC 17.3 H, RBC 4.67, Hgb 12.3, Hct 40.2, MCV 86.1, MCH 26.3 L, MCHC 30.6 L, RDW Std Deviation 50.2 H, RDW Coeff of Juan Antonio 15.9 H, Plt Count 321, MPV 9.4, Immature Gran % (Auto) 0.300, Neut % (Auto) 84.0 H, Lymph % (Auto) 8.3 L, Mower % (Auto) 5.4, Eos % (Auto) 1.7, Baso % (Auto) 0.3, Absolute Neuts (auto)14.5 H, Absolute Lymphs (auto) 1.43, Nucleated RBC % 0 09/12/22 09:20: Sodium 136, Potassium 3.5, Chloride 100, Carbon Dioxide 29.0, Anion Gap 7, BUN 6 L, Creatinine 0.35 L, Estim Creat Clear Calc 148.33, Est GFR (MDRD) Af Amer 256, Est GFR (MDRD) Non-Af 211, BUN/Creatinine Ratio 17.2, Glucose 141 H, Calcium 9.0, Troponin I High Sens 8 09/12/22 09:20: D-Dimer Quant (PE/DVT) 1.11 H* 09/12/22 09:20: B-Natriuretic Peptide 45.3 09/12/22 10:05: Urine Color Red, Urine Clarity Cloudy, Urine pH 8.0, Ur SpecificGravity 1.015, Urine Protein 100 H, Urine Glucose (UA) Normal, Urine Ketones Negative, Urine Occult Blood 250 H, Urine Nitrite Negative, Urine Bilirubin Negative, Urine Urobilinogen Normal, Ur Leukocyte Esterase 500 H, Urine RBC > 100 SEEN, Urine WBC 10-25 SEEN, Ur Squamous Epith Cells 0 SEEN, Urine Bacteria 2+, Urine Mucus 0 SEEN 09/12/22 12:55: Troponin I High Sens 7 Micro: Microbiology 09/12/22 09:32 Nasal Secretion SARS-CoV-2 & FLU Antigen (Rapid) - Final Radiology Impression Chest X-Ray 09/12/22 10:03 IMPRESSION: Mild pulmonary vascular congestion and perihilar opacities, concerning for mild pulmonary edema. Electronically Signed: Mary Keller MD at 11:03 EDT , Chest CTA 09/12/22 10:52 IMPRESSION: No evidence of acute pulmonary embolism or aortic aneurysm or dissection. Diffuse right-sided pneumonia. Bibasilar atelectasis. Enlarged steatotic liver. Electronically Signed: Steven Rodney MD at 12:23 EDT , Assessment & Plan Assessment/Plan (1) Pneumonia: PLAN: Plan #Urinary tract infection/neurogenic bladder status post suprapubic catheter -In the past she has grown VRE as well as Morganella and Proteus with various resistance patterns. -White blood cell count 17 but is vitally stable, blood pressure recorded of 86/61 was rechecked by ED physician and systolic was in the 1 teens. Tmax of 100.1. Heart rates been in the 90s, had one heart rate of 110 -Do not think that she is septic at this time -Given penicillin allergy she will be started on Merrem given VRE she will be given linezolid -UA suggestive of UTI -Cultures ordered -We will plan to consult ID -Of note she is supposed to see Dr. Rodriguez next week to establish care #Right-sided pneumonia/shortness of breath/history of sleep apnea noncompliant with CPAP -CT with diffuse right-sided pneumonia -COVID-negative -We will obtain respiratory cultures, respiratory panel -DuoNebs and as needed albuterol -Sputum culture -Urine antigens -We will also send Pro-Ye for antibiotic de-escalation purposes -Mucinex, I/S -On Merrem and linezolid, will add azithromycin for atypicals though less likely -Received 2 L of IV fluid -CTA negative for PE, BNP 45 -Suspect this is all secondary to pneumonia -Discussed BiPAP if breathing worsens and she is very resistant to this. Does report that she is DO NOT RESUSCITATE but okay for intubation however -Theoretically willing to try BiPAP if no other option #Paraplegia secondary to spinal cord injury in 2010 -Continue home pain medications -Suprapubic catheter care -Home medications listed as BuSpar, mirtazapine, Paxil, Cymbalta. Paxil is an SSRI and Cymbalta as an SNRI certainly should not be used together due to increased risk of side effects, will attempt to verify if she is taking both of these. We will hold BuSpar, Paxil, Cymbalta while getting linezolid but will de-escalate this as quickly as possible so she can resume her home medications #Hypothyroidism -Continue Synthroid #Morbid obesity -BMI 50.6 kg/m? -Complicates treatment, prognosis, outcomes -Recommend weight loss and lifestyle changes #DVT ppx: Lovenox subcu Shari Pastor MD Time spent in the patient's overall evaluation,decision-making process, review of diagnostic data, adjustment of management, discussion with other providers, nursing nursing and ancillary staff involved in patient's care documentation, 60minutes Charges/Coding Visit Charges Inpatient E&M: 21599 Init Hosp L2 09/12/22 6722 <Electronically signed by Shari Pastor MD> Cosigner Signature (if applicable): CC: Dr. Shari Pastor MD; Dr. Lavon Vicente MD~ Signed [facility] Work Phone: [phone]) 352-444902-10-[address] [facility] July 24, 2022 9:48pm Note Date/Time July 24, 2022 7:22pm [facility] Medical Records Department [address] [place] [address] Emergency Department Summary 07/24/22 MR#: [id number] Acct: [id number] Name: HENRIK ERED Rep #:[id number] 05 : 1975 47 From: Marc Beasley MD PCP: Dr. Lavon Vicente MD Status:REG E R Location: ED HPI History of Present Illness Chief Complaint: Confusion Narrative Narrative: 47-year-old female, multiple medical problems, presents with reported confusion,and reported hypoxia. She states that she may have felt like she started feeling "confused" "this morning. She states that she is a resident of [facility] [place], and they sent her in because they told her she was acting confused. She has had problems like this in the past when she has a urinary tract infection. In review of her EMR, she does have a suprapubic catheter. She denies any fevers or chills, but states, it nieves when she urinates. Additionally, it was reported that she was hypoxic at the intermediate but she denies any fevers or chills. No cough or shortness of breath. She states she wears 4 L of oxygen at all times and that started when COVID-19 started in 2019. She has chronic headaches, and states she has had a headache today. She presents for evaluation of her reported confusion. [facility] Medical History Abnormal EKG Chronic headaches Chronic pain Cocaine abuse Deep vein thrombosis of right lower extremity Depression Exogenous obesity Heroin use History of Fwral-Eyievwngm-Moiok (WPW) syndrome Hx: UTI (urinary tract infection) Hypothyroidism Left femoral shaft fracture Malnutrition of mild degree Neuromuscular dysfunction of bladder Paraplegia Pre-operative cardiovascular exam, new EKG abnormalities c/w ischemia Quadriparesis Right ischial pressure sore, stage 4 Spinal cord injury (2010) Suprapubic catheter Home Medications levothyroxine 75 mcg tablet 75 mcg PO DAILY 05/28/15 [History Last Taken 04/22/21] duloxetine 60 mg capsule,delayed release 90 mg PO QHS 08/21/15 [History Last Taken 04/21/21] baclofen 10 mg tablet 40 mg PO Q6H SPASMS 08/16/16 [History Last Taken 04/22/21] acetaminophen 325 mg tablet 650 mg PO Q4H PRN PRN Pain 03/01/18 [History Last Taken 04/21/21] bisacodyl 10 mg rectal suppository 10 mg [place] QHS PRN Constipation 03/01/18 [History Last Taken 04/21/21] omeprazole 20 mg capsule,delayed release 20 mg PO LUNCH 03/01/18 [History Last Taken 04/22/21] furosemide 40 mg tablet 40 mg PO BREAKFAST 05/26/18 [History Last Taken 04/22/21] sennosides 8.6 mg tablet 17.2 mg PO BID 08/16/18 [History Last Taken 04/22/21] cholecalciferol (vitamin D3) 50 mcg (2,000 unit) capsule 2,000 unit PO LUNCH SUPPLEMENT 08/08/19 [History Last Taken 04/22/21] polyethylene glycol 3350 17 gram oral powder packet 17 gm PO QHS 08/08/19 [History Last Taken 04/21/21] docusate sodium 100 mg capsule (Colace) 200 mg PO QHS 10/11/20 [History Last Taken 04/21/21] furosemide 20 mg tablet 20 mg PO LUNCH 04/21/21 [History Last Taken 04/22/21] buspirone 7.5 mg tablet 10 mg PO TID 04/22/21 [History Last Taken 04/22/21] gabapentin 800 mg tablet 1,600 mg PO TID NEUROPATHY 04/22/21 [History Last Taken 04/22/21] isosorbide mononitrate 30 mg tablet,extended release 24 hr 30 mg PO QHS 04/22/21[History Last Taken 04/21/21] oxybutynin chloride 10 mg tablet,extended release 24 hr 30 mg PO DAILY BLADDER 04/22/21 [History Last Taken 04/22/21] potassium chloride 10 mEq capsule,extended release 10 meq PO DAILY 04/22/21 [History Last Taken 04/22/21] phenazopyridine 200 mg tablet (Pyridium) 200 mg PO TID PRN Bladder Spasms 05/27/21 [History Last Taken Unknown] loperamide 2 mg tablet 1 mg PO Q4H PRN Diarrhea 06/03/22 [History Last Taken Unknown] magnesium hydroxide 400 mg/5 mL oral suspension (Milk of Magnesia) 30 ml PO DAILY PRN Constipation 06/03/22 [History Last Taken Unknown] melatonin 5 mg tablet 5 mg PO QHS 06/03/22 [History Last Taken Unknown] mirtazapine 30 mg tablet 30 mg PO QHS 06/03/22 [History Last Taken Unknown] ondansetron HCl 4 mg tablet 4 mg PO Q4H PRN Nausea 06/03/22 [History Last Taken Unknown] paroxetine HCl 10 mg tablet 10 mg PO QHS 06/03/22 [History Last Taken Unknown] simethicone 80 mg tablet 80 mg PO DAILY PRN Gastric Reflux 06/03/22 [History Last Taken Unknown] buprenorphine 10 mcg/hour weekly transdermal patch (Butrans) 1 patch [id number] pain 06/04/22 [History Last Taken Unknown] cefdinir 300 mg capsule 300 mg PO BID 5 days #10 caps 06/05/22 [Rx Last Taken Unknown] doxycycline monohydrate 100 mg capsule 100 mg PO BID 3 days #6 caps 06/05/22 [Rx Last Taken Unknown] Allergy/AdvReac Type Severity Reaction Status Date / Time apixaban [From Eliquis] Allergy Rash Verified 07/24/22 19:15 coconut oil Allergy cant breath Verified 07/24/22 19:15 mometasone furoate Allergy Rash Verified 07/24/22 19:15 [From Elocon] morphine Allergy NEEDS Verified 07/24/22 19:15 FOLLOW-UP nitrofurantoin Allergy Unknown Verified 07/24/22 19:15 rivaroxaban [From Xarelto] Allergy Rash Verified 07/24/22 19:15 Sulfa (Sulfonamide Allergy Shortness Verified 07/24/22 19:15 Antibiotics) of breath Penicillins AdvReac NEEDS Verified 07/24/22 19:15 FOLLOW-UP Family History Mother Diabetes Grandfather CAD (coronary artery disease) Colon cancer Grandmother Breast cancer Aunt Ovarian cancer Surgical History History of tracheostomy (2010) Social History Smoking Status: Never smoker ROS ROS ED ROS Narrative Constitutional: No fever, no chills. HEENT: No sore throat. No neck pain. No loss of vision. No rhinorrhea. Cardiovascular: No chest pain. No palpitations. No pedal edema. Respiratory: No cough, no shortness of breath. Reported hypoxia at shelter facility. Abdominal: No abdominal pain. No nausea. No vomiting. Genitourinary: Positive burning with urination/dysuria. No hematuria. Musculoskeletal: No myalgias. No arthralgias. Neurologic: No headaches. No dizziness. No lightheadedness. Skin: No rash. No change in color. Psychiatric: No depression. No anxiety. EXAM Physical Exam Narrative Exam Narrative: Afebrile. Vital signs noted. HEENT: Normocephalic. Atraumatic. PERRL, EOMI. Neck soft and supple. No pointtenderness or step off. Cardiovascular: Regular rate and rhythm. No murmurs, rubs, or gallops appreciated. Respiratory: No tachypnea. Lungs clear to auscultation bilaterally. Gastrointestinal: Abdomen soft, nontender, with normoactive bowel sounds. No rebound or guarding. Neurological: Awake. Alert. Oriented to person, place, and time. When asked year, initially she said "2017-psych". Nonfocal, nonlateralizing. Skin: No rash. Normal color. No pallor. Musculoskeletal: No pedal edema. Full range of motion extremities. Const Vital Signs: 07/24/22 19:06 07/24/22 19:11 07/24/22 19:11 Temperature 98.4 F 98.4 F 98.4 F Temperature Source Temporal Temporal Temporal Pulse Rate 99 107 H 107 H Respiratory Rate 18 14 18 Blood Pressure 159/104 H 159/104 H 159/104 H Blood Pressure Mean 122 122 122 Pulse Ox 98 96 97 Oxygen Delivery Method Room Air Nasal Cannula Nasal Cannula Oxygen Flow Rate (L/min) 4 4 07/24/22 20:44 07/24/22 20:44 07/24/22 21:02 Temperature 98.0 F 98.0 F Temperature Source Oral Oral Pulse Rate 105 H 104 H 102 H Respiratory Rate 13 12 17 Blood Pressure 91/65 91/65 166/107 H Blood Pressure Mean 73 73 126 Pulse Ox 92 92 92 Oxygen Delivery Method Room Air Room Air Room Air Oxygen Flow Rate (L/min) MDM MDM MDM Narrative Medical decision making narrative: Comprehensive work-up was pursued. I reviewed her laboratory work. CBC shows normal white count of 9.7 with hemoglobin normal at 12.9, hematocrit 42.6. Platelet count normal at 343. To look for electrolyte imbalance as a cause of her confusion or dehydration, I obtained a CMP and reviewed it but she has a normal sodium of 138, potassium normal at 4.7, CO2 of 25. Creatinine low at 0.39 with a normal BUN of 9. Glucose appropriately elevated at 128 with a normal anion gap of 8. In review of his AST is slightly elevated at 55 with an ALT of 45. Urinalysis from the suprapubic catheter was obtained and she has 5-10 WBCs and 2+ bacteria with it being turbid. She may be colonized, but given her confusion, this will be sent for culture. I will start her on Keflex which she has taken in the past. However, she states that an order needs to be written instead of a prescription. I discussed patient with Dr. Vitale who will write a prescription or orders for 3 days for antibiotics to cover her while urine culture awaits. Her lactic acid is normal at 1.4 so she is not septic. To look for causes of her confusion that was reported such as hepatic encephalopathy I obtained an ammonia level which is normal and less than 10. CTof the brain was obtained. I reviewed the radiology report after my interpretation shows no evidence of acute hemorrhage, and radiology confirms no acute process. I reviewed and interpreted her chest x-ray which shows no evidence of pneumonia or pneumothorax. I reviewed the radiology report and theyalso confirmed that there is no acute process. At this point in time, I do feel she can be discharged back to the shelter facility. Regarding her reported hypoxia, so only certain positions that she lies in, and she has been satting well on her nasal cannula oxygen here. Furthermore, I reviewed her intermediate paperwork independently and there is a DNR comfort care only order from the [facility]. I feel she be discharged back to the shelter facility. Disposition is discharged in stable condition. Lab Data Attestation: I reviewed the patient's lab results. Labs: Laboratory Results - last 24 hr 07/24/22 07/24/22 07/24/22 19:33 20:01 20:27 WBC 9.7 RBC 4.90 Hgb 12.9 Hct 42.6 MCV 86.9 MCH 26.3 L MCHC 30.3 L RDW Std Deviation 49.7 H RDW Coeff of Juan Antonio 15.8 H Plt Count 349 MPV 9.0 Immature Gran % (Auto) 0.200 Neut % (Auto) 58.0 Lymph % (Auto) 32.8 Mower % (Auto) 5.5 Eos % (Auto) 3.1 Baso % (Auto) 0.4 Absolute Neuts (auto) 5.6 Absolute Lymphs (auto) 3.18 Nucleated RBC % 0 Sodium 138 Potassium 4.7 Chloride 105 Carbon Dioxide 25.0 Anion Gap 8 BUN 9 Creatinine 0.39 L Estim Creat Clear Calc 126.71 Est GFR (MDRD) Af Amer 227 Est GFR (MDRD) Non-Af 188 BUN/Creatinine Ratio 23.3 H Glucose 128 H Lactic Acid Calcium 9.6 Total Bilirubin 0.50 AST 55 H ALT 45 Alkaline Phosphatase 91 Ammonia Total Protein 9.0 H Albumin 3.4 Globulin 5.6 H Albumin/Globulin Ratio 0.6 L Urine Color Yellow Urine Clarity Turbid Urine pH 7.0 Ur Specific Prince 1.010 Urine Protein 30 H Urine Glucose (UA) Normal Urine Ketones Negative Urine Occult Blood 150 H Urine Nitrite Negative Urine Bilirubin Negative Urine Urobilinogen Normal Ur Leukocyte Esterase 500 H Urine RBC 5-10 SEEN Urine WBC 5-10 SEEN Ur Squamous Epith Cells 0 SEEN Amorphous Sediment 2+ Urine Bacteria 2+ Urine Mucus 0 SEEN 07/24/22 07/24/22 20:27 20:27 WBC RBC Hgb Hct MCV MCH MCHC RDW Std Deviation RDW Coeff of Juan Antonio Plt Count MPV Immature Gran % (Auto) Neut % (Auto) Lymph % (Auto) Mower % (Auto) Eos % (Auto) Baso % (Auto) Absolute Neuts (auto) Absolute Lymphs (auto) Nucleated RBC % Sodium Potassium Chloride Carbon Dioxide Anion Gap BUN Creatinine Estim Creat Clear Calc Est GFR (MDRD) Af Amer Est GFR (MDRD) Non-Af BUN/Creatinine Ratio Glucose Lactic Acid 1.4 Calcium Total Bilirubin AST ALT Alkaline Phosphatase Ammonia < 10.0 L Total Protein Albumin Globulin Albumin/Globulin Ratio Urine Color Urine Clarity Urine pH Ur Specific Prince Urine Protein Urine Glucose (UA) Urine Ketones Urine Occult Blood Urine Nitrite Urine Bilirubin Urine Urobilinogen Ur Leukocyte Esterase Urine RBC Urine WBC Ur Squamous Epith Cells Amorphous Sediment Urine Bacteria Urine Mucus Radiography Diagnostic Testing: Clinical Impression(s) from Imaging Studies Brain CT 07/24/22 19:14 IMPRESSION: No acute intracranial findings. Electronically Signed: Bradley Matthews MD at 20:54 EST , Chest X-Ray 07/24/22 19:54 IMPRESSION: No radiographic evidence of acute cardiopulmonary disease. Electronically Signed: Bradley Matthews MD at 20:32 EST , Discharge Plan Triage Chief Complaint: Confusion ED Provider: Marc Beasley Dx/Rx/DC Orders Clinical Impression: UTI (urinary tract infection), Suprapubic catheter, Morbid obesity, Confusion Instructions: ED Confusion, ED Cystitis Female Adult Prescriptions: No Action levothyroxine 75 MCG tablet 75 mcg PO DAILY Label Comments: HYPOTHYROIDISM duloxetine 60 MG capsule,delayed release(DR/EC) 90 mg PO QHS Label Comments: ANXIETY baclofen 10 MG tablet 40 mg PO Q6H acetaminophen 325 MG tablet 650 mg PO Q4H PRN PRN (Reason: Pain) bisacodyl 10 MG suppository 10 mg [place] QHS PRN (Reason: Constipation) omeprazole 20 MG capsule,delayed release(DR/EC) 20 mg PO LUNCH furosemide 40 MG tablet 40 mg PO BREAKFAST sennosides 8.6 MG tablet 17.2 mg PO BID polyethylene glycol 3350 17 GM packet 17 gm PO QHS cholecalciferol (vitamin D3) 2,000 UNIT capsule 2,000 unit PO LUNCH docusate sodium [Colace] 100 mg Capsule 200 mg PO QHS furosemide 20 mg Tablet 20 mg PO LUNCH isosorbide mononitrate 30 mg Tablet Extended Release 24 Hr 30 mg PO QHS potassium chloride 10 mEq Capsule, Extended Release 10 meq PO DAILY oxybutynin chloride 10 mg Tablet Extended Release 24hr 30 mg PO DAILY gabapentin 800 mg Tablet 1,600 mg PO TID buspirone 7.5 mg Tablet 10 mg PO TID phenazopyridine [Pyridium] 200 mg Tablet 200 mg PO TID PRN (Reason: Bladder Spasms) melatonin 5 mg Tablet 5 mg PO QHS mirtazapine 30 mg Tablet 30 mg PO QHS paroxetine HCl 10 mg Tablet 10 mg PO QHS simethicone 80 mg Tablet 80 mg PO DAILY PRN (Reason: Gastric Reflux) magnesium hydroxide [Milk of Magnesia] 400 mg/5 mL Suspension 30 ml PO DAILY PRN (Reason: Constipation) loperamide 2 mg Tablet 1 mg PO Q4H PRN (Reason: Diarrhea) Rx Instructions: administer after each loose stool until symptoms controlled; do not exceed 8 mg per 24 hrs ondansetron HCl 4 mg Tablet 4 mg PO Q4H PRN (Reason: Nausea) buprenorphine [Butrans] 10 mcg/hour Patch Weekly 1 patch TRANSDERMAL Q7D cefdinir 300 mg capsule 300 mg PO BID 5 Days Qty: 10 0RF doxycycline monohydrate 100 mg capsule 100 mg PO BID 3 Days Qty: 6 0RF Primary Care Provider: Lavon Vicente Referrals: Lavon Vicente MD [Primary Care Provider] - As soon as possible Disposition Disposition: [facility] Facility Discharge Location: [facility] What to do if you have Problems For any increased pain, shortness of breath, bleeding, nausea or vomiting, chestpain, or any unexpected problems, contact your Primary Care Provider. Call [facility] ([phone]) or report to the closest Emergency Room. Call 911 if necessary. 07/24/222147 <Electronically signed by Marc Beasley MD> Cosigner Signature (if applicable): CC: Dr. Lavon Vicente MD ~ Signed [facility] Work Phone: 1(992) 283-308002-14-2022 Hospital Discharge instructions Patient Education 07/28/2021 17:04:30 [facility] Discharge Instructions Template (03/2018)(CUSTOM) JUAN JOSE SAME [...] us better serve our patients. Form: 1522 (67452) R: 09/20 Follow Up Care 05/19/2021 14:15:41 With:MAGDY VOGT MD, [facility], Urology Service Address: [phone] When: Unknown Comments:Follow-up as scheduled [facility] 08-04-2021 Evaluation + Plan note Future Appointments Future Scheduled Tests Laboratory* Basic Metabolic Panel 01/15/21 * Basic Metabolic Panel 04/30/21 * Urine Culture 04/30/21 * Complete Blood Count 04/30/21 Radiology* XR Abdomen AP 01/15/21 [facility] 08-04-2021 Evaluation + Plan note Future Scheduled Tests Laboratory* Basic Metabolic Panel 01/15/21 * Basic Metabolic Panel 04/30/21 * Urine Culture 04/30/21 * Complete Blood Count 04/30/21 Radiology* XR Abdomen AP 01/15/21 * XR Abdomen AP 09/08/21 [facility] Consult note Author Kristy [facility] July 08, 2023 1:38pm Note Date/Time July 08, 2023 1 :38pm [facility] Medical Records Department [address] [place] [address] Counseling Note - Pharmacy 07/08/23 1338 MR#: [id number] Acct: [id number] Name: HENRIK REED Rep #:[id number] 02 : 1975 48 From: Krsity Crawford PCP: Dr. Lavon Vicente MD Status:ADM I N Y Location: [place] [address] Pharmacy [place] Med Reconciliation Pharmacy Service has performed discharge medication reconciliation for this patient. The patient's discharge medication list was reviewed for discrepancies and discrepancies were resolved. Medications at Discharge Home Medications levothyroxine 75 mcg tablet 75 mcg PO DAILY hypothyroidism 05/28/15 duloxetine 60 mg capsule,delayed release 90 mg PO QHS depression 08/21/15 baclofen 10 mg tablet 40 mg PO Q6H SPASMS 08/16/16 acetaminophen 325 mg tablet 650 mg PO Q4H PRN PRN Pain or fever 03/01/18 bisacodyl 10 mg rectal suppository 10 mg [place] QHS PRN Constipation 03/01/18 omeprazole 20 mg capsule,delayed release 20 mg PO LUNCH GERD 03/01/18 furosemide 40 mg tablet 40 mg PO BREAKFAST edema 05/26/18 sennosides 8.6 mg tablet 17.2 mg PO BID constipation 08/16/18 cholecalciferol (vitamin D3) 50 mcg (2,000 unit) capsule 2,000 unit PO LUNCH SUPPLEMENT 08/08/19 polyethylene glycol 3350 17 gram oral powder packet 17 gm PO QHS constipation 08/08/19 docusate sodium 100 mg capsule (Colace) 200 mg PO BID constipation 10/11/20 furosemide 20 mg tablet 20 mg PO LUNCH edema 04/21/21 gabapentin 800 mg tablet 1,600 mg PO TID NEUROPATHY 04/22/21 isosorbide mononitrate 30 mg tablet,extended release 24 hr 30 mg PO QHS angina 04/22/21 oxybutynin chloride 10 mg tablet,extended release 24 hr 30 mg PO DAILY Bladder spasms 04/22/21 phenazopyridine 200 mg tablet (Pyridium) 200 mg PO TID PRN Bladder Spasms 05/27/21 loperamide 2 mg tablet 1 mg PO Q4H PRN Diarrhea 06/03/22 magnesium hydroxide 400 mg/5 mL oral suspension (Milk of Magnesia) 30 ml PO DAILY PRN Constipation 06/03/22 melatonin 5 mg tablet 5 mg PO QHS insomnia 06/03/22 mirtazapine 30 mg tablet 15 mg PO QHS insomnia 06/03/22 ondansetron HCl 4 mg tablet 4 mg PO Q4H PRN Nausea 06/03/22 simethicone 80 mg tablet 80 mg PO DAILY PRN Gastric Reflux 06/03/22 buprenorphine 15 mcg/hour weekly transdermal patch (Butrans) 20 mcg transdermal Q7D pain 09/12/22 cetirizine 10 mg tablet 10 mg PO QPM allergies 09/12/22 nystatin 100,000 unit/gram topical powder (Nyamyc) 1 applic topical BID #15 grams 11/16/22 benzonatate 100 mg capsule 100 mg PO Q6H PRN 07/02/23 buspirone 10 mg tablet 10 mg PO BID 07/02/23 cetirizine 10 mg capsule (All Day Allergy (cetirizine)) 10 mg PO DAILY PRN allergies 07/02/23 diphenhydramine HCl 25 mg tablet (Allergy (diphenhydramine)) 50 mg PO Q8H PRN itching 07/02/23 linaclotide 145 mcg capsule (Linzess) 145 mcg PO LUNCH constipation 07/02/23 mirabegron 25 mg tablet,extended release 24 hr (Myrbetriq) 25 mg PO LUNCH 07/02/23 paroxetine HCl 10 mg tablet 20 mg PO QHS 07/02/23 trazodone 50 mg tablet 50 mg PO QHS 07/02/23 acidophilus 25 million cell-pectin, citrus 100 mg tablet 2 tab PO BID #0 tabs 07/08/23 menthol 0.44 %-zinc oxide 20.6 % topical ointment (Calmoseptine) 1 applic topical TID #0 grams 07/08/23 piperacillin-tazobactam 3.375 gram/50 mL dextrose(iso-os) IV piggyback (Zosyn) 3.375 g (56.25 mL) IV Q8H 7 days 07/08/23 potassium chloride 10 mEq capsule,extended release 20 meq (2 x 10 mEq) PO LUNCH hypokalemia #30 caps 07/08/23 07/08/23 1338 <Electronically signed by Kristy Crawford> Date _ Kristy Crawford Cosigner Signature (if applicable): Date CC: ~ Signed [facility] Work Phone: Discharge summary Author [facility] July 08, 2023 12:19pm Note Date/Time July 08, 2023 1 2:10pm [facility] Medical Records Department [address] [place] [address] Transfer to [facility] MR#: [id number] Acct: [id number] Name: RADHA,HENRIK Pascual Rep #:[id number] : 1975 48 From: Raad Whaley PCP: Dr. Lavon Vicente MD Status:ADM I N Certification of patient admission REQUIRED AT TIME OF ADMISSION. I CERTIFY THAT POST-HOSPITAL ECF SERVICES ARE REQUIRED TO BE GIVEN ON AN IN-PATIENT BASIS BECAUSE OF THE ABOVE NAMED PATIENT'S NEED FOR [facility] CARE ON A CONTINUING BASIS FOR THE CONDITION(S) FOR WHICH HE/SHE WAS RECEIVING IN-PATIENT HOSPITAL SERVICES PRIOR TO HIS/HER TRANSFER TO THE [facility]. 07/08/23 1219<Electronically signed by Raad Hope MD> Diet Diet Order/Speech Therapy: 07/07/23 15:39 Diet: Regular - General Is pt able to select menu?: No Routine Orders/Code Status Suppository Type: Dulcolax 10mg Suppository Frequency: Daily PRN Therapies Weight Bearing: Weight bearing as tolerated Extremity Affected:: Bilateral Lower Physical Therapy: Eval and Treat Occupational Therapy: Eval and Treat Speech Therapy: Eval and Treat Problem/Diagnosis (1) Seizure: Status: Acute Code(s): R56.9 - Unspecified convulsions Aidan REED, is a 48 F was admitted on 07/02/2023 from [facility] for altered mental status. Per daughter she was at her baseline 6 PM the previous evening, brought to ED and had seizure-like activity and was also found to have evidence of UTI and concern for sepsis. Patient continued on Zosyn and linezolid and started on Keppra with EEG ordered and [facility] consult. 1. Sepsis secondary to Acute Cystitis; without hematuria in the setting of C7 spinal cord injury with quadriplegia, neurogenic bladder and suprapubic catheterwith frequent UTI's - Admit to ICU for treatment for treatment of sepsis protocol under contact precautions. Continue IV Zosyn begun in the ER and continue Linezolid as previous. Give Tylenol prn for pain or fever. 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 still. Lactic acid improved from 5.7 to 1.2. Infectious diseases consulted. -07/04: Patient on broad-spectrum antibiotics, urine culture with Proteus, ID consult pending, blood cultures pending 07/05: Urine culture shows multiple organisms Pseudomonas more than 100,000 colonies GNR, GPC possible Enterococcus and GNR 2 suggestive of contamination. 07/06: CT abdomen was done. It shows large bladder stone and multiple other stones in the bladder and urethra. Patient also has a midline inserted in right basilic vein. Chronic suprapubic indwelling catheter. Plan for cystoscopy with laser lithotripsy and placement of new suprapubic catheter tomorrow under general anesthesia. Patient on Tolterodine and Vibregron 07/07: Patient going for cystoscopy as mentioned above. 2. Septic/metabolic encephalopathy arising from #1 - Continue supportive care and monitor for improvement. -07/03: Treat underlying etiology, patient still confused -07/04: Patient on broad-spectrum antibiotics, underlying etiology being treated,patient significantly improving with treatment of infection 07/05: Patient screaming and moaning. She said her abdomen is hurting all over but could not give detailed history of characteristic of abdominal pain. On exam, abdomen feels soft with increased bowel sounds. No guarding/rigidity. Started on Seroquel. 07/07: Patient is more lucid and follows simple command. 3. Suspected absence-type seizure in the ER requiring treatment with IV Ativan compounding #1 & #2 - Check EEG to confirm suspicion. Start Keppra 1g IV BID. Finally, consult [facility] with help appreciated in advance. -07/03: On Keppra, teleneurology consult, EEG ordered. CT in ED with acute left sphenoid sinusitis but otherwise unremarkable -07/04: Patient evaluated by teleneurology, EEG with mild to moderate encephalopathy with no seizure activity, neuro recommended to pursue MRI and discontinue Keppra 07/05 patient went for MRI 07/07: MRI brain shows no evidence for acute infarct. Increased T2 flair signal in bilateral posterior parietal temporal and occipital lobes. 4. New onset abdominal pain: Abdomen is soft with generalized abdominal pain noother specific tender points. Pain medication given. Had one-time loose bowel movement. Patient having bowel movement. 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 Wound RN to see patient on-rounds in the AM with consult appreciated in advance. -07/03: Local wound care, cont linezolid -07/04: Wound care consult, ID consult, continue present management 5. Hypothyroidism - Resume Synthroid as previous and check TSH. -07/03: TSH within normal limits 6. Morbid obesity; with BMI of 42.7 this admission - Weight loss will be recommended but is unlikely given her paralysis. -07/03: Updated BMI 40.9 7. History of WPW syndrome - Noted. 8. History of RLE DVT; with listed allergies to Apixaban & Xarelto (rash) - Noted. 9. History of Left femur fracture - Noted. 10. History of cocaine and heroin abuse - Noted. 11. Depression with anxiety - Continue home medications as previous. 12. GERD - Resume PPI as previous. 13. Chronic headaches - Stable. 14. Chronic pain; on Buprenorphine patch - Continue Buprenorphine patch as previous. 15. DVT prophylaxis - Lovenox 40 mg sq BID Clinical Impression(s) from Imaging Studies Chest X-Ray 07/02/23 22:30 IMPRESSION: Poor inspiration with some bibasilar atelectasis. Cardiomegaly. Electronically Signed: Yuri Cerna MD at 23:56 EST , Brain CT 07/02/23 23:25 IMPRESSION: Normal unenhanced CT scan of the brain. Acute left sphenoid sinusitis Electronically Signed: Yuri Cerna MD at 23:45 EST , Brain MRI 07/05/23 10:00 IMPRESSION: Mild zones of increased T2 FLAIR signal in the bilateral posterior parietal and temporal occipital lobes, which can be seen with acute hypertensive encephalopathy, status epilepticus, or hypoglycemia. No evidence for acute infarct. Very mild chronic white matter changes. Electronically Signed: Mary Keller MD at 15:56 EST , KUB X-Ray 07/05/23 16:30 IMPRESSION: Normal x-ray examination of the abdomen and pelvis. Electronically Signed: David Moreno MD at 17:43 EST , Abdomen/Pelvis CT 07/06/23 10:25 IMPRESSION: Multiple stones are seen within the urinary bladder and urethra. A catheter seen within a decompressed urinary bladder. Possible tiny gallstones. Left basilar infiltrate. Findings suggestive of a linear scarring and/or atelectasis at the right lung base. Stable appearance of the right hip joint with fluid and erosive changes of the femur. Electronically Signed: Roosevelt Galvez MD at 11:35 EST , Allergies/Procedures Done in Hospital Allergies apixaban [From Eliquis] Allergy (Verified 07/02/23 22:41) Rash coconut oil Allergy (Verified 07/02/23 22:41) cant breath mometasone furoate [From Elocon] Allergy (Verified 07/02/23 22:41) Rash nitrofurantoin Allergy (Verified 07/02/23 22:41) Unknown rivaroxaban [From Xarelto] Allergy (Verified 07/02/23 22:41) Rash Sulfa (Sulfonamide Antibiotics) Allergy (Verified 07/02/23 22:41) Shortness of breath Penicillins Adverse Reaction (Verified 07/02/23 22:41) NEEDS FOLLOW-UP Type of Care/Length of Stay Estimated LOS: More Than 30 Days Type of Care Needed: Intermediate Rehab Potential: Fair Prognosis: Fair Additional Orders/Day of Discharge Day of Discharge: 07/08/23 Dietary and Speech Recommendations Dietitian Recommendations/Changes: continue regular diet w/ texture modifications as indicated; will monitor PO intake, results of CT and adjust diet/add ONS as indicated. Discharge Plan Admission Admit Date/Time: 07/03/23 00:01 Primary Reason for Your Visit: Complicated Pseudomonas CAUTI with stones Attending Provider: Raad Hope Primary Care Provider: Lavon Vicente Consulting Providers: Margarita Cortez; Alana Cavazos; Anabell Patterson; Jonna Mansfield; Renzo De Paz; Paul Walsh; Tyrell Rodriguez; Harper Quach; Wendy Correa; Javier Alfredo; Shelly Fernandez; John Minor; Roman Saunders; Keven Joseph; Jes Dumont; Fernando Salcedo; Urbano Oquendo; Duane Reyna; Jono Sharp; Heidi Carmona; Klaudia Mercado; Dulce Livingston; Yaya Neff; Beba Lewis; NAIDA MCCARTHY; Navjot Meadows; Jacklyn Queen; Shari Pastor; Flaco Choi Instructions Additional Instructions / Restrictions: Patient has a right arm PICC line. Discharge Orders/Prescriptions Prescriptions: New Zosyn in dextrose (iso-osm) 3.375 gram/50 mL piggyback 3.375 g IV Q8H 7 Days Rx Instructions: dx: pseudomonas infection acidophilus-pectin, citrus 25 million cell -100 mg Tablet 2 tab PO BID Qty: 0 0RF menthol-zinc oxide [Calmoseptine] 0.44-20.6 % Ointment 1 applic topical TID Qty: 0 0RF Protocol: *Topical Application Instructions APPLICATION INSTRUCTIONS: Apply to affected area(s) Continued levothyroxine 75 MCG tablet 75 mcg PO DAILY Patient Comments: HYPOTHYROIDISM duloxetine 60 MG capsule,delayed release(DR/EC) 90 mg PO QHS Hold Instructions: Resume on 11/23/22. Patient Comments: ANXIETY baclofen 10 MG tablet 40 mg PO Q6H acetaminophen 325 MG tablet 650 mg PO Q4H PRN PRN (Reason: Pain or fever) bisacodyl 10 MG suppository 10 mg [place] QHS PRN (Reason: Constipation) omeprazole 20 MG capsule,delayed release(DR/EC) 20 mg PO LUNCH furosemide 40 MG tablet 40 mg PO BREAKFAST sennosides 8.6 MG tablet 17.2 mg PO BID polyethylene glycol 3350 17 GM packet 17 gm PO QHS cholecalciferol (vitamin D3) 2,000 UNIT capsule 2,000 unit PO LUNCH docusate sodium [Colace] 100 mg Capsule 200 mg PO BID furosemide 20 mg Tablet 20 mg PO LUNCH isosorbide mononitrate 30 mg Tablet Extended Release 24 Hr 30 mg PO QHS oxybutynin chloride 10 mg Tablet Extended Release 24hr 30 mg PO DAILY gabapentin 800 mg Tablet 1,600 mg PO TID phenazopyridine [Pyridium] 200 mg Tablet 200 mg PO TID PRN (Reason: Bladder Spasms) melatonin 5 mg Tablet 5 mg PO QHS mirtazapine 30 mg Tablet 15 mg PO QHS simethicone 80 mg Tablet 80 mg PO DAILY PRN (Reason: Gastric Reflux) magnesium hydroxide [Milk of Magnesia] 400 mg/5 mL Suspension 30 ml PO DAILY PRN (Reason: Constipation) loperamide 2 mg Tablet 1 mg PO Q4H PRN (Reason: Diarrhea) Rx Instructions: administer after each loose stool until symptoms controlled; do not exceed 8 mg per 24 hrs ondansetron HCl 4 mg Tablet 4 mg PO Q4H PRN (Reason: Nausea) buprenorphine [Butrans] 15 mcg/hour patch weekly 20 mcg transdermal Q7D cetirizine 10 mg Tablet 10 mg PO QPM nystatin [Nyamyc] 100,000 unit/gram Powder 1 applic topical BID Qty: 15 0RF Protocol: *Topical Application Instructions APPLICATION INSTRUCTIONS: to folds and groin Rx Instructions: Apply to pannus diphenhydramine HCl [Allergy (diphenhydramine)] 25 mg tablet 50 mg PO Q8H PRN (Reason: itching) benzonatate 100 mg capsule 100 mg PO Q6H PRN buspirone 10 mg tablet 10 mg PO BID Linzess 145 mcg capsule 145 mcg PO LUNCH paroxetine HCl 10 mg tablet 20 mg PO QHS trazodone 50 mg tablet 50 mg PO QHS All Day Allergy (cetirizine) 10 mg capsule 10 mg PO DAILY PRN (Reason: allergies) Myrbetriq 25 mg tablet extended release 24 hr 25 mg PO LUNCH Changed potassium chloride 10 mEq Capsule, Extended Release 20 meq PO LUNCH Qty: 30 0RF Discontinued linezolid 600 mg Tablet 600 mg PO BID 7 Days Qty: 14 0RF fosfomycin tromethamine 3 gram packet 3 g PO X1 Rx Instructions: one time only for uti ibuprofen [Advil] 200 mg tablet 400 mg PO Q6H Referrals / Follow Up: Lavon Vicente MD [Primary Care Provider] - Flaco Choi MD [Med Staff - Active Staff] - Within 1 Month Paul Walsh MD [Med Staff - Active Staff] - Disposition Disposition (needs filled in before D/C Order can be placed): [facility] 07/08/23 1219 <Electronically signed by Raad Hope MD> Cosigner Signature (if applicable): CC: Wendy Correa; Margarita Cortez; Jonna Mansfield; Urbano Wagner; Alana Cavazos MD;Harper Quach MD; Tyrell Rodriguez MD; Dulce Livingston MD; Dr. Kendy Mccarthy MD; Dr. Renzo De Paz DO; Dr. Javier Alfredo MD; Dr. Shelly Fernandez MD; Dr. Roman Saunders MD; Dr. John Minor MD; Dr. Flaco Choi MD; Dr. Keven Joseph DO; Dr. Fernando Salcedo MD; Dr. Jes Dumont MD; Dr. Shari Pastor MD; Dr. Lavon Vicente MD; Dr. Duane Reyna MD; Dr. Paul Walsh MD; Dr. Jono Sharp MD; Dr. Heidi Carmona MD; Beba Lewis MD; Yaya Neff MD; Anabell Patterson DO; Navjot Meadows MD; Jacklyn Queen DO; Klaudia Mercado MD ~ [facility] Work Phone: Discharge summary Author Raad [facility] July 08, 2023 12:56pm Note Date/Time July 08, 2023 1 2:56pm [facility] Medical Records Department [address] [place] [address] Discharge Summary 07/08/23 1250 MR#: [id number] Acct: [id number] Name: HENRIK REED Rep #:[id number] : 1975 48 From: Raad Whaley PCP: Dr. Lavon Vicente MD Status:ADM I N Location: [place] [address]- Providers Date of Admission: 07/03/23 Date of Discharge: 07/08/23 Primary Care Physician: Dr. Lavon Vicente MD Consultations 07/03/23 00:12 Tele [Consult: Tele-Neurology] Routine Consulting Provider: [facility] Reason for Consult: Suspected Absence-type Seizure EMERGENT Consult: No Notified: Yes Date Notified: 07/03/23 Time Notified: 09:20 Method of Notification: Answering Service Method of Consult:: Telemedicine Nursing Unit Staff Notify [facility] of Tele-Neurology Consult: Yes 07/03/23 00:50 Consult: Physician President / Pulmonary Medicine Routine Consulting Provider: Intensivists/Pulmonary Med Reason for Consult: Sepsis with Septic Encephalopathy 2/2 UTI with suprapubiccath EMERGENT Consult: No Notified: Yes Date Notified: 07/03/23 Time Notified: 00:10 Method of Notification: Text 07/03/23 06:53 Consult: Infectious Disease Routine Consulting Provider: Paul Walsh Reason for Consult: Sepsis, h/o multidrug resistance EMERGENT Consult: No Notified: Yes Date Notified: 07/03/23 Time Notified: 06:53 Method of Notification: Answering Service 07/06/23 13:43 Consult: Urology Routine Consulting Provider: Flaco Choi Reason for Consult: Multiple stones in the urinary bladder and urethra. Indwelling suprapubic EMERGENT Consult: No Notified: Yes Date Notified: 07/06/23 Time Notified: 13:43 Method of Notification: Text Reason For Visit: UTI WITH SEPSIS AND SEPTIC ENCEPHALOPATHY Diagnosis Discharge Diagnosis (1) Seizure: Status: Acute Code(s): R56.9 - Unspecified convulsions ashutosh Ambrosio a 48 F was admitted on 07/02/2023 from [facility] for altered mental status. Per daughter she was at her baseline 6 PM the previous evening, brought to ED and had seizure-like activity and was also found to have evidence of UTI and concern for sepsis. Patient continued on Zosyn and linezolid and started on Keppra with EEG ordered and [facility] consult. 1. Sepsis secondary to Acute Cystitis; without hematuria in the setting of C7 spinal cord injury with quadriplegia, neurogenic bladder and suprapubic catheterwith frequent UTI's - Admit to ICU for treatment for treatment of sepsis protocol under contact precautions. Continue IV Zosyn begun in the ER and continue Linezolid as previous. Give Tylenol prn for pain or fever. 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 still. Lactic acid improved from 5.7 to 1.2. Infectious diseases consulted. -07/04: Patient on broad-spectrum antibiotics, urine culture with Proteus, ID consult pending, blood cultures pending 07/05: Urine culture shows multiple organisms Pseudomonas more than 100,000 colonies GNR, GPC possible Enterococcus and GNR 2 suggestive of contamination. 07/06: CT abdomen was done. It shows large bladder stone and multiple other stones in the bladder and urethra. Patient also has a midline inserted in right basilic vein. Chronic suprapubic indwelling catheter. Plan for cystoscopy with laser lithotripsy and placement of new suprapubic catheter tomorrow under general anesthesia. Patient on Tolterodine and Vibregron 07/07: Patient going for cystoscopy as mentioned above. 07/08: Patient had cystoscopy on 07/07 and litholapaxy and laser of bladder stonesgreater than 5 cm in size was done and a new 22 Burmese suprapubic catheter was inserted. Successful removal of significant amount of stones were done. Patient was seen by ID and wrote prescription for Zosyn through midline which was inserted in right arm on 07/07. 2. Septic/metabolic encephalopathy arising from #1 - Continue supportive care and monitor for improvement. -07/03: Treat underlying etiology, patient still confused -07/04: Patient on broad-spectrum antibiotics, underlying etiology being treated,patient significantly improving with treatment of infection 07/05: Patient screaming and moaning. She said her abdomen is hurting all over but could not give detailed history of characteristic of abdominal pain. On exam, abdomen feels soft with increased bowel sounds. No guarding/rigidity. Started on Seroquel. 07/07: Patient is more lucid and follows simple command. 07/08: Acute encephalopathy resolved. 3. Suspected absence-type seizure in the ER requiring treatment with IV Ativan compounding #1 & #2 - Check EEG to confirm suspicion. Start Keppra 1g IV BID. Finally, consult [facility] with help appreciated in advance. -07/03: On Keppra, teleneurology consult, EEG ordered. CT in ED with acute left sphenoid sinusitis but otherwise unremarkable -07/04: Patient evaluated by teleneurology, EEG with mild to moderate encephalopathy with no seizure activity, neuro recommended to pursue MRI and discontinue Keppra 07/05 patient went for MRI 07/07: MRI brain shows no evidence for acute infarct. Increased T2 flair signal in bilateral posterior parietal temporal and occipital lobes. 4. New onset abdominal pain most likely due to stool/bladder stone: Abdomen is soft with generalized abdominal pain no other specific tender points. Pain medication given. Had one-time loose bowel movement. Patient having bowel movement. 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 Wound RN to see patient on-rounds in the AM with consult appreciated in advance. -07/03: Local wound care, cont linezolid -07/04: Wound care consult, ID consult, continue present management 5. Hypothyroidism - Resume Synthroid as previous and check TSH. -07/03: TSH within normal limits 6. Morbid obesity; with BMI of 42.7 this admission - Weight loss will be recommended but is unlikely given her paralysis. -07/03: Updated BMI 40.9 7. History of WPW syndrome - Noted. 8. History of RLE DVT; with listed allergies to Apixaban & Xarelto (rash) - Noted. 9. History of Left femur fracture - Noted. 10. History of cocaine and heroin abuse - Noted. 11. Depression with anxiety - Continue home medications as previous. 12. GERD - Resume PPI as previous. 13. Chronic headaches - Stable. 14. Chronic pain; on Buprenorphine patch - Continue Buprenorphine patch as previous. 15. DVT prophylaxis - Lovenox 40 mg sq BID Discharge medication reconciliation done. Discharge follow-up instructions completed. Discharge process discussed with the patient and all questions wereanswered to patient's satisfaction. Follow with PCP in 1 to 2 weeks Total time spent, exact 35 minutes on discharge meds reconciliation, examination, coordination of care with nurses and ancillary staff, review of imaging and blood test and discussion with the patient on follow-up instructions. Clinical Impression(s) from Imaging Studies Chest X-Ray 07/02/23 22:30 IMPRESSION: Poor inspiration with some bibasilar atelectasis. Cardiomegaly. Electronically Signed: Yuri Cerna MD at 23:56 EST , Brain CT 07/02/23 23:25 IMPRESSION: Normal unenhanced CT scan of the brain. Acute left sphenoid sinusitis Electronically Signed: Yuri Cerna MD at 23:45 EST , Brain MRI 07/05/23 10:00 IMPRESSION: Mild zones of increased T2 FLAIR signal in the bilateral posterior parietal and temporal occipital lobes, which can be seen with acute hypertensive encephalopathy, status epilepticus, or hypoglycemia. No evidence for acute infarct. Very mild chronic white matter changes. Electronically Signed: Mary Keller MD at 15:56 EST , KUB X-Ray 07/05/23 16:30 IMPRESSION: Normal x-ray examination of the abdomen and pelvis. Electronically Signed: David Moreno MD at 17:43 EST , Abdomen/Pelvis CT 07/06/23 10:25 IMPRESSION: Multiple stones are seen within the urinary bladder and urethra. A catheter seen within a decompressed urinary bladder. Possible tiny gallstones. Left basilar infiltrate. Findings suggestive of a linear scarring and/or atelectasis at the right lung base. Stable appearance of the right hip joint with fluid and erosive changes of the femur. Electronically Signed: Roosevelt Galvez MD at 11:35 EST , Medications at Discharge Home Medications levothyroxine 75 mcg tablet 75 mcg PO DAILY hypothyroidism 05/28/15 duloxetine 60 mg capsule,delayed release 90 mg PO QHS depression 08/21/15 baclofen 10 mg tablet 40 mg PO Q6H SPASMS 08/16/16 acetaminophen 325 mg tablet 650 mg PO Q4H PRN PRN Pain or fever 03/01/18 bisacodyl 10 mg rectal suppository 10 mg [place] QHS PRN Constipation 03/01/18 omeprazole 20 mg capsule,delayed release 20 mg PO LUNCH GERD 03/01/18 furosemide 40 mg tablet 40 mg PO BREAKFAST edema 05/26/18 sennosides 8.6 mg tablet 17.2 mg PO BID constipation 08/16/18 cholecalciferol (vitamin D3) 50 mcg (2,000 unit) capsule 2,000 unit PO LUNCH SUPPLEMENT 08/08/19 polyethylene glycol 3350 17 gram oral powder packet 17 gm PO QHS constipation 08/08/19 docusate sodium 100 mg capsule (Colace) 200 mg PO BID constipation 10/11/20 furosemide 20 mg tablet 20 mg PO LUNCH edema 04/21/21 gabapentin 800 mg tablet 1,600 mg PO TID NEUROPATHY 04/22/21 isosorbide mononitrate 30 mg tablet,extended release 24 hr 30 mg PO QHS angina 04/22/21 oxybutynin chloride 10 mg tablet,extended release 24 hr 30 mg PO DAILY Bladder spasms 04/22/21 phenazopyridine 200 mg tablet (Pyridium) 200 mg PO TID PRN Bladder Spasms 05/27/21 loperamide 2 mg tablet 1 mg PO Q4H PRN Diarrhea 06/03/22 magnesium hydroxide 400 mg/5 mL oral suspension (Milk of Magnesia) 30 ml PO DAILY PRN Constipation 06/03/22 melatonin 5 mg tablet 5 mg PO QHS insomnia 06/03/22 mirtazapine 30 mg tablet 15 mg PO QHS insomnia 06/03/22 ondansetron HCl 4 mg tablet 4 mg PO Q4H PRN Nausea 06/03/22 simethicone 80 mg tablet 80 mg PO DAILY PRN Gastric Reflux 06/03/22 buprenorphine 15 mcg/hour weekly transdermal patch (Butrans) 20 mcg transdermal Q7D pain 09/12/22 cetirizine 10 mg tablet 10 mg PO QPM allergies 09/12/22 nystatin 100,000 unit/gram topical powder (Nyamyc) 1 applic topical BID #15 grams 11/16/22 benzonatate 100 mg capsule 100 mg PO Q6H PRN 07/02/23 buspirone 10 mg tablet 10 mg PO BID 07/02/23 cetirizine 10 mg capsule (All Day Allergy (cetirizine)) 10 mg PO DAILY PRN allergies 07/02/23 diphenhydramine HCl 25 mg tablet (Allergy (diphenhydramine)) 50 mg PO Q8H PRN itching 07/02/23 linaclotide 145 mcg capsule (Linzess) 145 mcg PO LUNCH constipation 07/02/23 mirabegron 25 mg tablet,extended release 24 hr (Myrbetriq) 25 mg PO LUNCH 07/02/23 paroxetine HCl 10 mg tablet 20 mg PO QHS 07/02/23 trazodone 50 mg tablet 50 mg PO QHS 07/02/23 acidophilus 25 million cell-pectin, citrus 100 mg tablet 2 tab PO BID #0 tabs 07/08/23 menthol 0.44 %-zinc oxide 20.6 % topical ointment (Calmoseptine) 1 applic topical TID #0 grams 07/08/23 piperacillin-tazobactam 3.375 gram/50 mL dextrose(iso-os) IV piggyback (Zosyn) 3.375 g (56.25 mL) IV Q8H 7 days 07/08/23 potassium chloride 10 mEq capsule,extended release 20 meq (2 x 10 mEq) PO LUNCH hypokalemia #30 caps 07/08/23 Physical Exam Narrative Seen and examined. Patient is more awake and complaining of upper abdominal pain. CT abdomen reported bladder stone but abdominal pain not consistent with the CT report. CTabdomen/pelvis shows bladder and ureteral stones. Has indwelling suprapubic catheter. Had bowel movement. Physical exam: General: Awake. Oriented x3, Cooperative, morbid obesity BMI 41.2 kg square meter HEENT: Atraumatic, PERRLA, EOMI, Normocephalic Oral: Oral mucosa dry. No Gingival or Mucosal Lesions/ Ulcerations Neck: Supple, No JVD, Negative Carotid Bruits Lungs: Air entry diminished in bilateral lung bases. No crepitation/rhonchi Cardiovascular: Regular rate, Regular Rhythm, Normal S1, Normal S2, No murmurs Abdomen: Bowel Sounds present soft, no tenderness, no guarding/rigidity. No rebound tenderness. : Indwelling suprapubic catheter. Mild pus flecks. No renal angle tenderness. No suprapubic tenderness. Extremities: Right arm PICC line. No palpable swelling or tenderness in right arm. Slight edema, Capillary Refill Less than 3 Seconds Skin: No rashes, No breakdown Musculoskeletal: Functional quadriplegia. Could not move her legs, chronic paraplegia. No Tenderness to Palpation of Joints or Extremities Neurological: Cranial nerves II-XII grossly intact, chronic neurological deficit. Psych/Mental Status: Flat affect. Patient more quiet and lucid Weight / BMI Weight Weight: 239 lb 6.752 oz Body Mass Index (BMI) 41.1 ABG / Lab / Microbiology Data 07/08/23 06:15 07/08/23 06:15 Laboratory: Laboratory Results - last 24 hr 07/08/23 06:15: WBC 5.6, RBC 4.55, Hgb 11.6 L, Hct 38.0, MCV 83.5, MCH 25.5 L, MCHC 30.5 L, RDW Std Deviation 48.1 H, RDW Coeff of Juan Antonio 15.9 H, Plt Count 370, MPV 9.2, Immature Gran % (Auto) 0.700, Neut % (Auto) 56.9, Lymph % (Auto) 34.4, Mower % (Auto) 7.6, Eos % (Auto) 0.0, Baso % (Auto) 0.4, Absolute Neuts (auto) 3.2, Absolute Lymphs (auto) 1.94, Nucleated RBC % 0, Sodium 134 L, Potassium 3.4L, Chloride 103, Carbon Dioxide 28.0, Anion Gap 3 L, BUN 9, Creatinine 0.28 L, Estim Creat Clear Calc 292.59, Est GFR (MDRD) Af Amer 331, Est GFR (MDRD) Non-Af274, BUN/Creatinine Ratio 32.4 H, Glucose 111 H, Calcium 8.6, Total Bilirubin 0.30, AST 42 H, ALT 64 H, Alkaline Phosphatase 72, Total Protein 8.1, Albumin 3.2, Globulin 4.9 H, Albumin/Globulin Ratio 0.7 L Microbiology: Microbiology 07/02/23 23:15 Blood Culture (Wb) - Arm Left Blood Culture - Final No growth in 5 days. 07/02/23 22:45 Blood Culture (Wb) - Arm Left Blood Culture - Final No growth in 5 days. 07/03/23 02:05 Urine Catheter - Mccarthy Urine Culture - Final Pseudomonas aeruginosa Enterococcus faecalis Proteus mirabilis 07/02/23 23:10 Urine, Catheterized Urine Culture - Final Proteus mirabilis Enterococcus faecalis 07/02/23 22:55 Mucosa - Nose SARS-CoV-2, Influenza & RSV (PCR) - Final Meaningful Use Info Meaningful Use Diagnoses (Choose all that apply): None applicable Discharge Plan Admission Admit Date/Time: 07/03/23 00:01 Primary Reason for Your Visit: Complicated Pseudomonas CAUTI with stones Attending Provider: Raad Hope Primary Care Provider: Lavon Vicente Consulting Providers: Margarita Cortez; Alana Cavazos; Anabell Patterson; Jonna Mansfield; Renzo De Paz; Paul Walsh; Tyrell Rodriguez; Harper Quach; Wendy Correa; Javier Alfredo; Shelly Fernandez; John Minor; Roman Saunders; Keven Joseph; Jes Dumont; Fernando Salcedo; Urbano Oquendo; Duane Reyna; Jono Sharp; Heidi Carmona; Klaudia Mercado; Dulce Livingston; Yaya Neff; Beba Lewis; NAIDA MCCARTHY; Navjot Meadows; Jacklyn Queen; Shari Pastor; Flaco Choi Instructions Additional Instructions / Restrictions: Patient has a right arm PICC line. Discharge Orders/Prescriptions Prescriptions: New Zosyn in dextrose (iso-osm) 3.375 gram/50 mL piggyback 3.375 g IV Q8H 7 Days Rx Instructions: dx: pseudomonas infection acidophilus-pectin, citrus 25 million cell -100 mg Tablet 2 tab PO BID Qty: 0 0RF menthol-zinc oxide [Calmoseptine] 0.44-20.6 % Ointment 1 applic topical TID Qty: 0 0RF Protocol: *Topical Application Instructions APPLICATION INSTRUCTIONS: Apply to affected area(s) Continued levothyroxine 75 MCG tablet 75 mcg PO DAILY Patient Comments: HYPOTHYROIDISM duloxetine 60 MG capsule,delayed release(DR/EC) 90 mg PO QHS Hold Instructions: Resume on 11/23/22. Patient Comments: ANXIETY baclofen 10 MG tablet 40 mg PO Q6H acetaminophen 325 MG tablet 650 mg PO Q4H PRN PRN (Reason: Pain or fever) bisacodyl 10 MG suppository 10 mg [place] QHS PRN (Reason: Constipation) omeprazole 20 MG capsule,delayed release(DR/EC) 20 mg PO LUNCH furosemide 40 MG tablet 40 mg PO BREAKFAST sennosides 8.6 MG tablet 17.2 mg PO BID polyethylene glycol 3350 17 GM packet 17 gm PO QHS cholecalciferol (vitamin D3) 2,000 UNIT capsule 2,000 unit PO LUNCH docusate sodium [Colace] 100 mg Capsule 200 mg PO BID furosemide 20 mg Tablet 20 mg PO LUNCH isosorbide mononitrate 30 mg Tablet Extended Release 24 Hr 30 mg PO QHS oxybutynin chloride 10 mg Tablet Extended Release 24hr 30 mg PO DAILY gabapentin 800 mg Tablet 1,600 mg PO TID phenazopyridine [Pyridium] 200 mg Tablet 200 mg PO TID PRN (Reason: Bladder Spasms) melatonin 5 mg Tablet 5 mg PO QHS mirtazapine 30 mg Tablet 15 mg PO QHS simethicone 80 mg Tablet 80 mg PO DAILY PRN (Reason: Gastric Reflux) magnesium hydroxide [Milk of Magnesia] 400 mg/5 mL Suspension 30 ml PO DAILY PRN (Reason: Constipation) loperamide 2 mg Tablet 1 mg PO Q4H PRN (Reason: Diarrhea) Rx Instructions: administer after each loose stool until symptoms controlled; do not exceed 8 mg per 24 hrs ondansetron HCl 4 mg Tablet 4 mg PO Q4H PRN (Reason: Nausea) buprenorphine [Butrans] 15 mcg/hour patch weekly 20 mcg transdermal Q7D cetirizine 10 mg Tablet 10 mg PO QPM nystatin [Nyamyc] 100,000 unit/gram Powder 1 applic topical BID Qty: 15 0RF Protocol: *Topical Application Instructions APPLICATION INSTRUCTIONS: to folds and groin Rx Instructions: Apply to pannus diphenhydramine HCl [Allergy (diphenhydramine)] 25 mg tablet 50 mg PO Q8H PRN (Reason: itching) benzonatate 100 mg capsule 100 mg PO Q6H PRN buspirone 10 mg tablet 10 mg PO BID Linzess 145 mcg capsule 145 mcg PO LUNCH paroxetine HCl 10 mg tablet 20 mg PO QHS trazodone 50 mg tablet 50 mg PO QHS All Day Allergy (cetirizine) 10 mg capsule 10 mg PO DAILY PRN (Reason: allergies) Myrbetriq 25 mg tablet extended release 24 hr 25 mg PO LUNCH Changed potassium chloride 10 mEq Capsule, Extended Release 20 meq PO LUNCH Qty: 30 0RF Discontinued linezolid 600 mg Tablet 600 mg PO BID 7 Days Qty: 14 0RF fosfomycin tromethamine 3 gram packet 3 g PO X1 Rx Instructions: one time only for uti ibuprofen [Advil] 200 mg tablet 400 mg PO Q6H Referrals / Follow Up: Flaco Choi MD [Med Staff - Active Staff] - Within 1 Month Lavon Vicente MD [Primary Care Provider] - Paul Walsh MD [Med Staff - Active Staff] - Disposition Disposition (needs filled in before D/C Order can be placed): [facility] Facility Charges/Coding Visit Charges Inpatient E&M: 21000 Disch Hosp >30min 07/08/23 1256 <Electronically signed by Raad Hope MD> Cosigner Signature (if applicable): CC: Dr. Lavon Vicente MD; Dr. Raad Hope MD~ Signed [facility] Work Phone: Evaluation + Plan note Future Appointments Appointment Date:04/30/2021 01:40:00 PM Scheduled Provider:ISREAL PAGE APRN-CLEMENTINA Location:URO CAN Appointment Type:URO OV Future Scheduled Tests Laboratory* Basic Metabolic Panel 01/15/21 Radiology* XR Abdomen AP 01/15/21 [facility] Evaluation + Plan note Future Appointments Appointment Date:06/21/2023 02:40:00 PM Scheduled Provider:ISREAL PAGE Location:UROLOGY Appointment Type:URO OV Future Scheduled Tests Radiology* CT Abdomen and Pelvis w/o contrast 04/21/23 [facility] evaluation + Plan note Future Appointments Appointment Date:02/02/2024 03:00:00 PM Scheduled Provider:ISREAL PAGE Location:UROLOGY Appointment Type:URO OV Future Scheduled Tests Radiology* XR Abdomen AP 02/02/24 * US Renal 09/02/23 [facility] Evaluation + Plan note Future Appointments Appointment Date:02/02/2024 03:00:00 PM Scheduled Provider:ISREAL PAGE Location:UROLOGY Appointment Type:URO OV [facility] Evaluation + Plan note Future Appointments Appointment Date:03/17/2024 10:20:00 AM Scheduled Provider:CHERIE RENEE MD Location:UROLOGY Appointment Type:URO OV Post Op Future Scheduled Tests Laboratory* Basic Metabolic Panel 02/02/24 * Complete Blood Count 02/02/24 [facility] evaluation noteNo assessment information available [facility] Work Phone: evaluation note* Diagnosis Onset Date Resolution Status Encephalopathy acute Pneumonia acute Urinary tract infection acut e Quadriparesis chronic Spinal cord injury 2010 chronic [facility] Work Phone: evaluation note* Diagnosis Onset Date Resolution Status Altered mental status acute Encephalopathy acute Pneumonia acute Urinary tract infection acut e Quadriparesis chronic Spinal cord injury 2010 chronic [facility] Work Phone: evaluation note* Diagnosis Onset Date Resolution Status Pneumonia acute Urinary tract infection acut e Quadriparesis chronic Spinal cord injury 2010 chronic Altered mental status resolv ed Encephalopathy resolved [facility] Work Phone: evaluation note* Diagnosis Onset Date Resolution Status Pneumonia acute Urinary tract infection acut e Quadriparesis chronic Spinal cord injury 2010 chronic Altered mental status resolv ed Encephalopathy resolved Pneumonia acute [facility] Work Phone: Evaluation note* Diagnosis Onset Date Resolution Status Pneumonia acute Urinary tract infection acut e Quadriparesis chronic Spinal cord injury 2010 chronic Altered mental status resolv ed Encephalopathy resolved Pneumonia resolved [facility] Work Phone: Evaluation note* Diagnosis Bladder stones- Primary Other calculus in bladder Paraplegia (HCC) [facility] Diagnosis Onset Date Resolution Status Pneumonia resolved [facility] Work Phone: Evaluation note* Diagnosis Onset Date Resolution Status Pneumonia resolved UTI (urinary tract infection) acute Quadriparesis chronic Suprapubic catheter chronic [facility] Work Phone: Evaluation note* Diagnosis Onset Date Resolution Status Pneumonia resolved Candidiasis acute UTI (urinary tract infection) acute VRE infection (vancomycin resistant Enterococcus) acute Quadriparesis chronic Suprapubic catheter chronic [facility] Work Phone: Evaluation note* Diagnosis Onset Date Resolution Status Candidiasis acute UTI (urinary tract infection) acute VRE infection (vancomycin resistant Enterococcus) acute Quadriparesis chronic Suprapubic catheter chronic [facility] Work Phone: Evaluation note* Diagnosis Onset Date Resolution Status Seizure acute [facility] Work Phone: Evaluation note* Diagnosis Onset Date Resolution Status Seizure acute Sepsis acute UTI (urinary tract infection) acute VRE infection (vancomycin resistant Enterococcus) acute [facility] Work Phone: Evaluation note* Diagnosis Onset Date Resolution Status UTI (urinary tract infection) acute VRE infection (vancomycin resistant Enterococcus) acute Sepsis resolved [facility] Work Phone: History and physical note Author Dr. Pastor [facility] September 12, 2022 3:13pm Note Date/Time September 12, 2022 2:55 pm [facility] Medical Records Department [address] [place] [address] H&P Exam - Hospitalist 09/12/22 1449 MR#: [id number] Acct: [id number] Name: HENRIK REED Rep #:[id number] : 1975 47 From: Shari Pastor MD PCP: Dr. Lavon Vicente MD Status:ADM I N Location: [address] HPI - General General Date of Admission: 09/12/22 Date of Service: 09/12/22 Chief Complaint: SOB HPI Narrative Ms. Reed is a 47-year-old female with a history of paraplegia since 2010 with a suprapubic catheter and history of UTIs as well as DVT of right lower extremity, and morbid obesity who presented to [facility] from intermediate 09/12 due to shortness of breath for 3 to 4 days with sputum production and she was also concerned she might have a UTI because there was blood in her suprapubic catheter. In ED her white blood cell count was 17.3, D-dimer 1.11, troponin 8 and then 7, BNP 45, and UA suggestive of UTI. CT obtained that demonstrated diffuse right-sided pneumonia and bibasilar atelectasis as well as enlarged steatotic liver. Hospitalist consulted for admission for UTI, pneumonia, IV antibiotics. Patient evaluated at bedside and she reports she has had shortness of breath worsening over the past week and productive cough that she has felt very bad overall. Has not had her temperature measured and she is unsure if she was febrile. Reports that she haschest pain when she coughs or takes a deep breath and that is very uncomfortablefor her. Had a slight headache earlier today. Also concerned she had a UTI dueto blood in her suprapubic catheter. Denies any bedsores at present or other wounds of note. [facility] Medical History Abnormal EKG Chronic headaches Chronic pain Cocaine abuse Deep vein thrombosis of right lower extremity Depression Exogenous obesity Heroin use History of Jqkzg-Fiabfvcrt-Nkbli (WPW) syndrome Hx: UTI (urinary tract infection) Hypothyroidism Left femoral shaft fracture Malnutrition of mild degree Neuromuscular dysfunction of bladder Paraplegia Pre-operative cardiovascular exam, new EKG abnormalities c/w ischemia Quadriparesis Right ischial pressure sore, stage 4 Spinal cord injury (2010) Suprapubic catheter Home Medications levothyroxine 75 mcg tablet 75 mcg PO DAILY 05/28/15 [History Last Taken 04/22/21] duloxetine 60 mg capsule,delayed release 90 mg PO QHS 08/21/15 [History Last Taken 04/21/21] baclofen 10 mg tablet 40 mg PO Q6H SPASMS 08/16/16 [History Last Taken 04/22/21] acetaminophen 325 mg tablet 650 mg PO Q4H PRN PRN Pain 03/01/18 [History Last Taken 04/21/21] bisacodyl 10 mg rectal suppository 10 mg [place] QHS PRN Constipation 03/01/18 [History Last Taken 04/21/21] omeprazole 20 mg capsule,delayed release 20 mg PO LUNCH 03/01/18 [History Last Taken 04/22/21] furosemide 40 mg tablet 40 mg PO BREAKFAST 05/26/18 [History Last Taken 04/22/21] sennosides 8.6 mg tablet 17.2 mg PO BID 08/16/18 [History Last Taken 04/22/21] cholecalciferol (vitamin D3) 50 mcg (2,000 unit) capsule 2,000 unit PO LUNCH SUPPLEMENT 08/08/19 [History Last Taken 04/22/21] polyethylene glycol 3350 17 gram oral powder packet 17 gm PO QHS 08/08/19 [History Last Taken 04/21/21] docusate sodium 100 mg capsule (Colace) 200 mg PO QHS 10/11/20 [History Last Taken 04/21/21] furosemide 20 mg tablet 20 mg PO LUNCH 04/21/21 [History Last Taken 04/22/21] buspirone 7.5 mg tablet 10 mg PO TID 04/22/21 [History Last Taken 04/22/21] gabapentin 800 mg tablet 1,600 mg PO TID NEUROPATHY 04/22/21 [History Last Taken 04/22/21] isosorbide mononitrate 30 mg tablet,extended release 24 hr 30 mg PO QHS 04/22/21[History Last Taken 04/21/21] oxybutynin chloride 10 mg tablet,extended release 24 hr 30 mg PO DAILY BLADDER 04/22/21 [History Last Taken 04/22/21] potassium chloride 10 mEq capsule,extended release 10 meq PO DAILY 04/22/21 [History Last Taken 04/22/21] phenazopyridine 200 mg tablet (Pyridium) 200 mg PO TID PRN Bladder Spasms 05/27/21 [History Last Taken Unknown] loperamide 2 mg tablet 1 mg PO Q4H PRN Diarrhea 06/03/22 [History Last Taken Unknown] magnesium hydroxide 400 mg/5 mL oral suspension (Milk of Magnesia) 30 ml PO DAILY PRN Constipation 06/03/22 [History Last Taken Unknown] melatonin 5 mg tablet 5 mg PO QHS 06/03/22 [History Last Taken Unknown] mirtazapine 30 mg tablet 15 mg PO QHS 06/03/22 [History Last Taken Unknown] ondansetron HCl 4 mg tablet 4 mg PO Q4H PRN Nausea 06/03/22 [History Last Taken Unknown] paroxetine HCl 10 mg tablet 10 mg PO QHS 06/03/22 [History Last Taken Unknown] simethicone 80 mg tablet 80 mg PO DAILY PRN Gastric Reflux 06/03/22 [History Last Taken Unknown] buprenorphine 15 mcg/hour weekly transdermal patch (Butrans) 1 mcg transdermal QWEEK 09/12/22 [History Last Taken Unknown] cephalexin 250 mg capsule 250 mg PO DAILY 09/12/22 [History Last Taken Unknown] cetirizine 10 mg tablet 10 mg PO DAILY 09/12/22 [History Last Taken Unknown] Allergy/AdvReac Type Severity Reaction Status Date / Time apixaban [From Eliquis] Allergy Rash Verified 09/12/22 09:06 coconut oil Allergy cant breath Verified 09/12/22 09:06 mometasone furoate Allergy Rash Verified 09/12/22 09:06 [From Elocon] morphine Allergy NEEDS Verified 09/12/22 09:06 FOLLOW-UP nitrofurantoin Allergy Unknown Verified 09/12/22 09:06 rivaroxaban [From Xarelto] Allergy Rash Verified 09/12/22 09:06 Sulfa (Sulfonamide Allergy Shortness Verified 09/12/22 09:06 Antibiotics) of breath Penicillins AdvReac NEEDS Verified 09/12/22 09:06 FOLLOW-UP Family History Mother Diabetes Grandfather CAD (coronary artery disease) Colon cancer Grandmother Breast cancer Aunt Ovarian cancer Surgical History History of tracheostomy (2010) Social History Smoking Status: Never smoker ROS ROS Narrative General: Has felt generally unwell HENT: Earlier had a headache, denies stuffy nose, denies sore throat EYES: Denies changes in vision Resp: Shortness of breath and productive cough Cardiac: Denies chest pain GI: Denies abdominal pain, feels she needs to have a bowel movement, denies nausea/vomiting : Red in her suprapubic catheter bag Extremity: Reports she does feel little bit swollen MSK: Cannot move legs Neuro: Paraplegic Heme: Bleeding and suprapubic catheter Skin: Denies rashes Psychiatric: No complaints voiced Vital Signs Vital Signs Vital Signs: 09/12/22 09:06 09/12/22 09:29 09/12/22 09:31 Temperature 100.1 F H 100.1 F H Temperature Source Oral Oral Pulse Rate 91 68 Respiratory Rate 29 H 16 Respiratory Effort Short of Breath Labored Accessory Muscle Use Respiratory Depth Normal Respiratory Pattern Tachypnea Blood Pressure 181/109 H 96/78 Blood Pressure Mean 133 84 Pulse Ox 94 94 Oxygen Delivery Method Nasal Cannula Nasal Cannula Nasal Cannula Oxygen Flow Rate (L/min) 4 4 4 09/12/22 10:10 09/12/22 11:53 09/12/22 13:12 Temperature 98.9 F Temperature Source Oral Pulse Rate 110 H 96 Respiratory Rate 22 H 16 Respiratory Effort Respiratory Depth Respiratory Pattern Blood Pressure 116/69 86/61 L Blood Pressure Mean 84 69 Pulse Ox 94 96 94 Oxygen Delivery Method Nasal Cannula Nasal Cannula Oxygen Flow Rate (L/min) 4 4 09/12/22 13:54 Temperature 97.6 F L Temperature Source Oral Pulse Rate 92 Respiratory Rate 20 H Respiratory Effort Respiratory Depth Respiratory Pattern Blood Pressure 107/67 Blood Pressure Mean 80 Pulse Ox 99 Oxygen Delivery Method Nasal Cannula Oxygen Flow Rate (L/min) 6 Weight Weight: 121.5 kg Body Mass Index (BMI) 50.5 Physical Exam Narrative General: Alert, oriented, no apparent distress HEENT: Atraumatic, normocephalic Eyes: Anicteric, normal conjunctiva, extraocular movements grossly intact Neck: Supple Respiratory: Diffuse wheezes, coarse throughout, slight increased work of breathing Cardiovascular: Regular rate and rhythm GI: Soft, nontender, nondistended Extremities: Trace edema bilateral lower extremities Musculoskeletal: Does not move lower extremities Neuro: Paraplegic Skin: Seems to have a faint red rash on left arm Psych: Cooperative Results Lab / Micro Data Result Diagrams: 09/12/22 09:20 09/12/22 09:20 Labs: Laboratory Results - last 24 hr 09/12/22 09:20: WBC 17.3 H, RBC 4.67, Hgb 12.3, Hct 40.2, MCV 86.1, MCH 26.3 L, MCHC 30.6 L, RDW Std Deviation 50.2 H, RDW Coeff of Juan Antonio 15.9 H, Plt Count 321, MPV 9.4, Immature Gran % (Auto) 0.300, Neut % (Auto) 84.0 H, Lymph % (Auto) 8.3 L, Mower % (Auto) 5.4, Eos % (Auto) 1.7, Baso % (Auto) 0.3, Absolute Neuts (auto)14.5 H, Absolute Lymphs (auto) 1.43, Nucleated RBC % 0 09/12/22 09:20: Sodium 136, Potassium 3.5, Chloride 100, Carbon Dioxide 29.0, Anion Gap 7, BUN 6 L, Creatinine 0.35 L, Estim Creat Clear Calc 148.33, Est GFR (MDRD) Af Amer 256, Est GFR (MDRD) Non-Af 211, BUN/Creatinine Ratio 17.2, Glucose 141 H, Calcium 9.0, Troponin I High Sens 8 09/12/22 09:20: D-Dimer Quant (PE/DVT) 1.11 H* 09/12/22 09:20: B-Natriuretic Peptide 45.3 09/12/22 10:05: Urine Color Red, Urine Clarity Cloudy, Urine pH 8.0, Ur SpecificGravity 1.015, Urine Protein 100 H, Urine Glucose (UA) Normal, Urine Ketones Negative, Urine Occult Blood 250 H, Urine Nitrite Negative, Urine Bilirubin Negative, Urine Urobilinogen Normal, Ur Leukocyte Esterase 500 H, Urine RBC > 100 SEEN, Urine WBC 10-25 SEEN, Ur Squamous Epith Cells 0 SEEN, Urine Bacteria 2+, Urine Mucus 0 SEEN 09/12/22 12:55: Troponin I High Sens 7 Micro: Microbiology 09/12/22 09:32 Nasal Secretion SARS-CoV-2 & FLU Antigen (Rapid) - Final Radiology Impression Chest X-Ray 09/12/22 10:03 IMPRESSION: Mild pulmonary vascular congestion and perihilar opacities, concerning for mild pulmonary edema. Electronically Signed: Mary Keller MD at 11:03 EDT , Chest CTA 09/12/22 10:52 IMPRESSION: No evidence of acute pulmonary embolism or aortic aneurysm or dissection. Diffuse right-sided pneumonia. Bibasilar atelectasis. Enlarged steatotic liver. Electronically Signed: Steven Rodney MD at 12:23 EDT , Assessment & Plan Assessment/Plan (1) Pneumonia: PLAN: Plan #Urinary tract infection/neurogenic bladder status post suprapubic catheter -In the past she has grown VRE as well as Morganella and Proteus with various resistance patterns. -White blood cell count 17 but is vitally stable, blood pressure recorded of 86/61 was rechecked by ED physician and systolic was in the 1 teens. Tmax of 100.1. Heart rates been in the 90s, had one heart rate of 110 -Do not think that she is septic at this time -Given penicillin allergy she will be started on Merrem given VRE she will be given linezolid -UA suggestive of UTI -Cultures ordered -We will plan to consult ID -Of note she is supposed to see Dr. Rodriguez next week to establish care #Right-sided pneumonia/shortness of breath/history of sleep apnea noncompliant with CPAP -CT with diffuse right-sided pneumonia -COVID-negative -We will obtain respiratory cultures, respiratory panel -DuoNebs and as needed albuterol -Sputum culture -Urine antigens -We will also send Pro-Ye for antibiotic de-escalation purposes -Mucinex, I/S -On Merrem and linezolid, will add azithromycin for atypicals though less likely -Received 2 L of IV fluid -CTA negative for PE, BNP 45 -Suspect this is all secondary to pneumonia -Discussed BiPAP if breathing worsens and she is very resistant to this. Does report that she is DO NOT RESUSCITATE but okay for intubation however -Theoretically willing to try BiPAP if no other option #Paraplegia secondary to spinal cord injury in 2011 -Continue home pain medications -Suprapubic catheter care -Home medications listed as BuSpar, mirtazapine, Paxil, Cymbalta. Paxil is an SSRI and Cymbalta as an SNRI certainly should not be used together due to increased risk of side effects, will attempt to verify if she is taking both of these. We will hold BuSpar, Paxil, Cymbalta while getting linezolid but will de-escalate this as quickly as possible so she can resume her home medications #Hypothyroidism -Continue Synthroid #Morbid obesity -BMI 50.6 kg/m? -Complicates treatment, prognosis, outcomes -Recommend weight loss and lifestyle changes #DVT ppx: Lovenox subcu Shari Pastor MD Time spent in the patient's overall evaluation,decision-making process, review of diagnostic data, adjustment of management, discussion with other providers, nursing nursing and ancillary staff involved in patient's care documentation, 60minutes Charges/Coding Visit Charges Inpatient E&M: 06474 Init Hosp L2 09/12/22 1513 <Electronically signed by Shari Pastor MD> Cosigner Signature (if applicable): CC: Dr. Shari Pastor MD; Dr. Lavon Vicente MD~ Signed [facility] Work Phone: Hospital course Narrative No data available for this section [facility] Discharge instructions No data available for this section [facility] Discharge instructions Additional Instructions You will have an order for antibiotics when you return to [facility], [place], [facility]. [facility] Work Phone: Hospital Discharge instructions Additional Instructions Hemoglobin is stable today. While you are having bleeding from your vagina the exact cause is not clear. I spoke with the jewellery designer who recommends follow-up in the next week or so. If you start passing large lots multiple times, soak through a pad an hour for 2 to 3 hours in a row, become lightheaded or have a change in vital signs please return to the emergency room. Otherwise you should be able to follow-up with a jewellery designer.[facility] Work Phone: Progress note No data available for this section [facility] Reason for referral (narrative)* Diagnostic Procedure Only (Routine) - Authorized Specialty Diagnoses / Procedures Referred By Contac t Referred To Contact US IMAGING Diagnoses Bladder stones Procedures US KIDNEY/BLADDER US RETROPERITONEAL REAL TIME W/IMAGE COMPLETE Rosa Maria Martinez PA-C [id number] [place] [address] Us Imaging Referral ID Status Reason Start Date Expiration Date Visits Requested Visits Authorized [id number] Authorized Auto-Generat ed Referral 10/06/2022 11/05/2023 1 1 [facility] for referral (narrative)No reason for referral information availableWCleveland [facility] Work Phone: Chief Complaint and Reason for Visit Chief Complaint [facility] ALT LOC [facility] Complaint [facility] K [facility] Chief Complaint [facility] Chief Complaint [facility] Chief Complaint [facility] Chief Complaint [facility] Chief Complaint [facility] Chief Complaint [facility] Chief Complaint [facility] K [facility] AMS Reason for Visit Encephalopathy Pneumonia Urinary tract infection Quadriparesis Spinal cord injury Chief Complaint [facility] K [facility] AMS AMS AMS AMS Reason for Visit Altered mental statu s Encephalopathy Pneumonia Urinary tract infection Quadriparesis Spinal cord injury Chief Complaint [facility] AMS AMS AMS AMS [facility] CONFUSION Reason for Visit Pneumonia Urinary tract infection Quadriparesis Spinal cord injury Altered mental status Encephalopathy Chief Complaint AMS AMS AMS AMS [facility] CONFUSION UTI, PNA Reason for Visit Pneumonia Urinary tract infection Quadriparesis Spinal cord injury Altered mental status Encephalopathy Pneumonia Chief Complaint AMS AMS AMS AMS [facility] CONFUSION UTI, PNA UTI, PNA UTI, PNA Reason for Visit Pneumonia Urinary tract infection Quadriparesis Spinal cord injury Altered mental status Encephalopathy Pneumonia Chief Complaint AMS AMS AMS [facility] CONFUSION UTI, PNA UTI, PNA UTI, PNA LABWORK [facility] Reason for Visit Pneumonia Urinary tract infection Quadriparesis Spinal cord injury Altered mental status Encephalopathy Pneumonia Chief Complaint [facility] CONFUSION UTI, PNA UTI, PNA UTI, PNA LABWORK [facility] Reason for Visit Pneumonia Chief Complaint CONFUSION UTI, PNA UTI, PNA UTI, PNA LABWORK [facility] ALT LOC Hematuria Reason for Visit Pneumonia Chief Complaint CONFUSION UTI, PNA UTI, PNA UTI, PNA LABWORK [facility] ALT LOC Hematuria [facility] Reason for Visit Pneumonia Chief Complaint CONFUSION UTI, PNA UTI, PNA UTI, PNA LABWORK [facility] ALT LOC Hematuria [facility] UTI Reason for Visit Pneumonia UTI (urinary tract infection) Quadriparesis Suprapubic catheter Chief Complaint CONFUSION UTI, PNA UTI, PNA UTI, PNA LABWORK [facility] ALT LOC Hematuria [facility] UTI Urinary tract infection Urinary tract infection Reason for Visit Pneumonia Candidiasis UTI (urinary tract infection) VRE infection (vancomycin resistant Enterococcus) Quadriparesis Suprapubic catheter Chief Complaint ALT LOC Hematuria [facility] UTI Urinary tract infection Urinary tract infection Vaginal Bleeding Reason for Visit Candidiasis UTI (urinary tract infection) VRE infection (vancomycin resistant Enterococcus) Quadriparesis Suprapubic catheter Chief Complaint ALT LOC Hematuria [facility] UTI Urinary tract infection Urinary tract infection [facility] Vaginal Bleeding Reason for Visit Candidiasis UTI (urinary tract infection) VRE infection (vancomycin resistant Enterococcus) Quadriparesis Suprapubic catheter Chief Complaint ALT LOC Hematuria [facility] UTI Urinary tract infection Urinary tract infection [facility] Vaginal Bleeding [facility] Reason for Visit Candidiasis UTI (urinary tract infection) VRE infection (vancomycin resistant Enterococcus) Quadriparesis Suprapubic catheter Chief Complaint ALT LOC Hematuria [facility] UTI Urinary tract infection Urinary tract infection [facility] Vaginal Bleeding [facility] LABWORK Reason for Visit Candidiasis UTI (urinary tract infection) VRE infection (vancomycin resistant Enterococcus) Quadriparesis Suprapubic catheter Chief Complaint [facility] K SEPSIS, UTI, AMS Reason for Visit Seizure Chief Complaint UTI WITH SEPSIS AND SEPTIC ENCEPHALOPATHY UTI WITH SEPSIS AND SEPTIC ENCEPHALOPATHY UTI WITH SEPSIS AND SEPTIC ENCEPHALOPATHY UTI WITH SEPSIS AND SEPTIC ENCEPHALOPATHY UTI WITH SEPSIS AND SEPTIC ENCEPHALOPATHY UTI WITH SEPSIS AND SEPTIC ENCEPHALOPATHY UTI WITH SEPSIS AND SEPTIC ENCEPHALOPATHY UTI WITH SEPSIS AND SEPTIC ENCEPHALOPATHY UTI WITH SEPSIS AND SEPTIC ENCEPHALOPATHY UTI WITH SEPSIS AND SEPTIC ENCEPHALOPATHY UTI WITH SEPSIS AND SEPTIC ENCEPHALOPATHY Reason for Visit Seizure Sepsis UTI (urinary tract infection) VRE infection (vancomycin resistant Enterococcus) Chief Complaint UTI WITH SEPSIS AND SEPTIC ENCEPHALOPATHY UTI WITH SEPSIS AND SEPTIC ENCEPHALOPATHY UTI WITH SEPSIS AND SEPTIC ENCEPHALOPATHY UTI WITH SEPSIS AND SEPTIC ENCEPHALOPATHY UTI WITH SEPSIS AND SEPTIC ENCEPHALOPATHY UTI WITH SEPSIS AND SEPTIC ENCEPHALOPATHY UTI WITH SEPSIS AND SEPTIC ENCEPHALOPATHY UTI WITH SEPSIS AND SEPTIC ENCEPHALOPATHY UTI WITH SEPSIS AND SEPTIC ENCEPHALOPATHY UTI WITH SEPSIS AND SEPTIC ENCEPHALOPATHY UTI WITH SEPSIS AND SEPTIC ENCEPHALOPATHY LABWORK [facility] Reason for Visit UTI (urinary tract i nfection) VRE infection (vancomycin resistant Enterococcus) Sepsis Chief Complaint UTI WITH SEPSIS AND SEPTIC ENCEPHALOPATHY UTI WITH SEPSIS AND SEPTIC ENCEPHALOPATHY UTI WITH SEPSIS AND SEPTIC ENCEPHALOPATHY UTI WITH SEPSIS AND SEPTIC ENCEPHALOPATHY UTI WITH SEPSIS AND SEPTIC ENCEPHALOPATHY UTI WITH SEPSIS AND SEPTIC ENCEPHALOPATHY UTI WITH SEPSIS AND SEPTIC ENCEPHALOPATHY UTI WITH SEPSIS AND SEPTIC ENCEPHALOPATHY UTI WITH SEPSIS AND SEPTIC ENCEPHALOPATHY UTI WITH SEPSIS AND SEPTIC ENCEPHALOPATHY UTI WITH SEPSIS AND SEPTIC ENCEPHALOPATHY LABWORK [facility] Reason for Visit UTI (urinary tract i nfection) VRE infection (vancomycin resistant Enterococcus) Sepsis Chief Complaint UTI WITH SEPSIS AND SEPTIC ENCEPHALOPATHY UTI WITH SEPSIS AND SEPTIC ENCEPHALOPATHY UTI WITH SEPSIS AND SEPTIC ENCEPHALOPATHY UTI WITH SEPSIS AND SEPTIC ENCEPHALOPATHY UTI WITH SEPSIS AND SEPTIC ENCEPHALOPATHY UTI WITH SEPSIS AND SEPTIC ENCEPHALOPATHY UTI WITH SEPSIS AND SEPTIC ENCEPHALOPATHY UTI WITH SEPSIS AND SEPTIC ENCEPHALOPATHY UTI WITH SEPSIS AND SEPTIC ENCEPHALOPATHY UTI WITH SEPSIS AND SEPTIC ENCEPHALOPATHY UTI WITH SEPSIS AND SEPTIC ENCEPHALOPATHY LABWORK [facility] LABWORK Reason for Visit UTI (urinary tract i nfection) VRE infection (vancomycin resistant Enterococcus) Sepsis Chief Complaint UTI WITH SEPSIS AND SEPTIC ENCEPHALOPATHY UTI WITH SEPSIS AND SEPTIC ENCEPHALOPATHY UTI WITH SEPSIS AND SEPTIC ENCEPHALOPATHY UTI WITH SEPSIS AND SEPTIC ENCEPHALOPATHY UTI WITH SEPSIS AND SEPTIC ENCEPHALOPATHY UTI WITH SEPSIS AND SEPTIC ENCEPHALOPATHY UTI WITH SEPSIS AND SEPTIC ENCEPHALOPATHY UTI WITH SEPSIS AND SEPTIC ENCEPHALOPATHY UTI WITH SEPSIS AND SEPTIC ENCEPHALOPATHY UTI WITH SEPSIS AND SEPTIC ENCEPHALOPATHY UTI WITH SEPSIS AND SEPTIC ENCEPHALOPATHY LABWORK [facility] LABWORK LABWORK Reason for Visit UTI (urinary tract i nfection) VRE infection (vancomycin resistant Enterococcus) Sepsis Chief Complaint UTI WITH SEPSIS AND SEPTIC ENCEPHALOPATHY UTI WITH SEPSIS AND SEPTIC ENCEPHALOPATHY UTI WITH SEPSIS AND SEPTIC ENCEPHALOPATHY UTI WITH SEPSIS AND SEPTIC ENCEPHALOPATHY UTI WITH SEPSIS AND SEPTIC ENCEPHALOPATHY UTI WITH SEPSIS AND SEPTIC ENCEPHALOPATHY UTI WITH SEPSIS AND SEPTIC ENCEPHALOPATHY UTI WITH SEPSIS AND SEPTIC ENCEPHALOPATHY UTI WITH SEPSIS AND SEPTIC ENCEPHALOPATHY UTI WITH SEPSIS AND SEPTIC ENCEPHALOPATHY UTI WITH SEPSIS AND SEPTIC ENCEPHALOPATHY LABWORK [facility] LABWORK LABWORK [facility] LABWORK UTI Reason for Visit UTI (urinary tract i nfection) VRE infection (vancomycin resistant Enterococcus) Sepsis Chief Complaint Admit Date [facility] June 12 5:00am [facility] July 03, 2024 7:50am [facility] July 05, 2024 4:00pm LABWORK July 07, 2024 5 :00am LABWORK July 14, 2024 5 :00am [facility] July 25 5:00am [facility] September 06, 2024 5 :00am Chief Complaint Admit Date [facility] July 03, 2024 7:50am [facility] July 05, 2024 4:00pm LABWORK July 07, 2024 5 :00am LABWORK July 14, 2024 5 :00am [facility] July 25 5:00am [facility] September 06, 2024 5 :00am LABWORK October 06, 2024 6:4 0am Family History No Family History Records Found Relationship Condition Age at Onset Recorded Date/T eda mother Diabetes mellitus Unknown grandfather Coronary artery disease Unknown Malignant neoplasm of colon Unknown grandmother Malignant neoplasm of breast Unknown aunt Malignant neoplasm of ovary Unknown Advance Directives No Advanced Directives Records Found Advance Directive Response Recorded Date/ Time Advance Directives No March 16, 2019 12:32pm Living Will Yes May 27 7:33pm Power of Inspector Material Disposition Yes May 27, 2021 7:33pm Advance Directive Response Recorded Date/ Time Advance Directives No March 16, 2019 11:32am Living Will Yes May 27 6:33pm Power of Inspector Material Disposition Yes May 27, 2021 6:33pm Advance Directive Response Recorded Date/ Time Name of Medical Power of Inspector Material Disposition ZARI GURROLA June 03, 2022 6:13am Advance Directives No March 16, 2019 11:32am Living Will Yes June 03, 2 022 6:13am Power of Inspector Material Disposition Yes June 03, 2022 6:13am Advance Directive Response Recorded Date/ Time Name of Medical Power of Inspector Material Disposition Zari Loera ly June 03, 2022 8:58am Advance Directives No March 16, 2019 11:32am Living Will No June 03, 022 8:58am Power of Inspector Material Disposition Yes June 03, 2022 8:58am Advance Directive Response Recorded Date/ Time Name of Medical Power of Inspector Material Disposition Zari Loeraly June 03, 2022 8:58am Name of Medical Power of Inspector Material Disposition ZARI LOERALY- DAUGHTER July 24, 2022 7:19pm Advance Directives No March 16, 2019 11:32am Living Will No July 24 023 7:19pm Power of Inspector Material Disposition Yes July 24, 2022 7:19pm Advance Directive Response Recorded Date/ Time Name of Medical Power of Inspector Material Disposition Zari Loeraly June 03, 2022 9:58am Name of Medical Power of Inspector Material Disposition ZARI LOERALY- DAUGHTER July 24, 2022 8:19pm Name of Medical Power of Inspector Material Disposition ZARI ZACH- DAUGHTER September 12, 2022 9:29am Advance Directives No March 16, 2019 12:32pm Living Will Yes September 12, 2022 9:29am Power of Inspector Material Disposition Yes September 12 9:29am Advance Directive Response Recorded Date/ Time Name of Medical Power of Inspector Material Disposition Zari Loeraly June 03, 2022 9:58am Name of Medical Power of Inspector Material Disposition ZARI SHAINALY- DAUGHTER July 24, 2022 8:19pm Name of Medical Power of Inspector Material Disposition ZARI ZACH- DAUGHTER September 12, 2022 9:29am Advance Directives No March 16, 2019 12:32pm Living Will No September 12, 2022 4:26pm Power of Inspector Material Disposition No September 12 4:26pm Advance Directive Response Recorded Date/ Time Name of Medical Power of Inspector Material Disposition ZARI ALVARADO- DAUGHTER July 24, 2022 8:19pm Name of Medical Power of Inspector Material Disposition ZARI ZACH- DAUGHTER September 12, 2022 9:29am Advance Directives No March 16, 2019 12:32pm Living Will No September 12, 2022 4:26pm Power of Inspector Material Disposition No September 12 4:26pm Advance Directive Response Recorded Date/ Time Name of Medical Power of Inspector Material Disposition ZARI DIANE July 24, 2022 8:19pm Name of Medical Power of Inspector Material Disposition ZARI DIANE September 12, 2022 9:29am Advance Directives No March 16, 2019 12:32pm Living Will No November 09, 2022 2 :48pm Power of Inspector Material Disposition No November 09, 2022 2:48pm Advance Directive Response Recorded Date/ Time Name of Medical Power of Inspector Material Disposition ZARI DIANE July 24, 2022 8:19pm Name of Medical Power of Inspector Material Disposition ZARI DIANE September 12, 2022 9:29am Advance Directives No March 16, 2019 12:32pm Living Will No November 14, 2022 8 :33pm Power of Inspector Material Disposition No November 14, 2022 8:33pm Advance Directive Response Recorded Date/ Time Name of Medical Power of Inspector Material Disposition ZARI DIANE July 24, 2022 8:19pm Name of Medical Power of Inspector Material Disposition ZARI DIANE September 12, 2022 9:29am Advance Directives No March 16, 2019 12:32pm Living Will No November 15, 2022 1 2:56am Power of Inspector Material Disposition No November 15, 2022 12:56am Advance Directive Response Recorded Date/ Time Name of Medical Power of Inspector Material Disposition Dght January 26, 2023 8:12pm Advance Directives No March 16, 2019 12:32pm Living Will No January 26 8:12pm Power of Inspector Material Disposition Yes January 26, 023 8:12pm Advance Directive Response Recorded Date/ Time Advance Directives No March 16, 2019 11:32am Living Will No July 02 10:37pm Power of Inspector Material Disposition No July 02, 2023 10:37pm Advance Directive Response Recorded Date/ Time Advance Directives No March 16, 2019 12:32pm Living Will No July 02 11:37pm Power of Inspector Material Disposition No July 02, 2023 11:37pm Advance Directive Response Recorded Date/ Time Advance Directives No March 16, 2019 12:32pm Summary Purpose Additional Source Comments Goals (unrecognized section and content) Goals may be documented in a n alternate section Care Teams (unrecognized sec tion and content) Team Status: Active Member Role Status Dates Dr. Lavon Vicente MD Family Provider Active Dr. Lavon Vicente MD Primary Care Provider Active Team Status: Active Member Role Status Dates Dr. Lavon Vicente MD Primary Care Provider Active Dr. Romero River DO Emergency Provider Active Dr. Valeria Duval MD Admit Provider, Atte nding Provider, Other Provider Active Team Status: Inactive Member Role Status Dates Dr. Lavon Vicente MD Primary Care Provider Active Lavon Vicente Attending Provider, Referring Provider Ac tive Team Status: Inactive Member Role Status Dates Dr. Lavon Vicente MD Primary Care Provider Active Dr. Romero River DO Emergency Provider Active Dr. Valeria Duval MD Admit Provider, Attending Provider Active Team Status: Inactive Member Role Status Dates Dr. Lavon Vicente MD Primary Care Provider Active Lavon Vicente Attending Provider Active Team Status: Active Member Role Status Dates Dr. Lavon Vicente MD Primary Care Provider Active Marc Beasley MD Emergency Provider Active Team Status: Inactive Member Role Status Dates Dr. Lavon Vicente MD Primary Care Provider Active Marc Beasley MD Emergency Provider Active Team Status: Inactive Member Role Status Dates Dr. Lavon Vicente MD Primary Care Provider Active Lavon Vicente OLS Attending Provider Active Team Status: Inactive Member Role Status Dates Dr. Lavon Vicente MD Primary Care Provider Active Marc Beasley MD Attending Provider, Emergency Provid er Active Team Status: Active Member Role Status Dates Dr. Lavon Vicente MD Primary Care Provider Active Dr. Estevan Aguila DO Emergency Provider Active Dr. Shari Pastor MD Admit Provider, Attending Provid er Active Team Status: Active Member Role Status Dates Dr. Lavon Vicente MD Primary Care Provider Active Dr. Estevan Aguila DO Emergency Provider Active Dr. Shari Pastor MD Admit Provider, At tending Provider, Other Provider Active Team Status: Active Member Role Status Dates Dr. Lavon Vicente MD Primary Care Provider Active Dr. Estevan Aguila DO Emergency Provider Active Dr. Shari Pastor MD Admit Provider, Other Provider A ctive Dr. Renzo Alva MD Attending Provider, Other Provid er Active Dr. Paul Walsh MD Other Provider Active Team Status: Inactive Member Role Status Dates Dr. Lavon Vicente MD Primary Care Provider Active Dr. Estevan Aguila DO Emergency Provider Active Dr. Shari Pastor MD Admit Provider, Other Provider A ctive Dr. Renzo Alva MD Attending Provider Active Dr. Paul Walsh MD Other Provider Active Team Status: Active Member Role Status Dates Dr. 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 Lavon Vicente MD Primary Care Provider Active Dr. Kenia Hammond MD Attending Provider, Referring Pr ovider Active Team Status: Inactive Member Role Status Dates Dr. Lavon Vicente MD Primary Care Provider Active Dr. Brendon Acharya DO Emergency Provider Active Team Status: Inactive Member Role Status Dates Dr. Lavon Vicente MD Primary Care Provider Active Dr. Romero River DO Emergency Provider Active Team Status: Inactive Member Role Status Dates Dr. Lavon Vicente MD Primary Care Provider Active Dr. Brendon Acharya DO Attending Provider, Emergency Pro vider Active Team Status: Inactive Member Role Status Dates Dr. Lavon Vicente MD Primary Care Provider Active Dr. Romero River DO Attending Provider, Emergency P rovider Active Team Status: Active Member Role Status Dates Dr. Lavon Vicente MD Primary Care Provider Active Dr. Scott Downey MD Emergency Provider Active Dr. Romero Howe DO Admit Provider, Attending Provid er Active Team Status: Active Member Role Status Dates Dr. Lavon Vicente MD Primary Care Provider Active Dr. Scott Downey MD Emergency Provider Active Dr. Romero Howe DO Admit Provider, Attending Provid er, Other Provider Active Team Status: Active Member Role Status Dates Dr. Lavon Vicente MD Primary Care Provider Active Dr. Scott Downey MD Emergency Provider Active Dr. Romero Howe DO Admit Provider, Other Provider A ctive Dr. Shari Pastor MD Attending Provider, Other Provid er Active Dr. Paul Walsh MD Other Provider Active Team Status: Inactive Member Role Status Dates Dr. Lavon Vicente MD Primary Care Provider Active Dr. Scott Downey MD Emergency Provider Active Dr. Romero Howe , DO Admit Provider, Other Provider A ctive Dr. Shari Pastor MD Attending Provider Active Dr. Paul Walsh MD Other Provider Active Team Status: Inactive Member Role Status Dates Dr. Lavon Vicente MD Primary Care Provider Active Dr. Christine Lee DO Emergency Provider Active Team Status: Inactive Member Role Status Dates Dr. Lavon Vicente MD Primary Care Provider Active Dr. Christine Lee DO Attending Provider, Emergency P brian Active Team Status: Inactive Member Role Status Dates Dr. Lavon Vicente MD Primary Care Provider Active Lavon Vicente OLS Attending Provider, Referring Provide r Active Team Status: Active Member Role Status Dates Dr. Lavon Vicente MD Primary Care Provider Active Dr. Estevan Aguila DO Emergency Provider Active Dr. Renzo De Paz DO Admit Provider , Attending Provider, Referring Provider Active Dr. Margarita Cortez MD Other Provider Active Dr. Alana Cavazos MD Other Provider Active Dulce Livingston MD Other Provider Active Yaya Neff MS Other Provider Active Beba Lewis MD Other Provider Active NAIDA MCCARTHY MD Other Provider Active Anabell Patterson MD Other Provider Active Dr. Jonna Mansfield MD Other Provider Active Navjot Meadows MD Other Provider Active Jacklyn uQeen MD Other Provider Active Team Status: Active Member Role Status Dates Dr. Lavon Vicente MD Primary Care Provider Active Dr. Estevan Aguila DO Emergency Provider Active Dr. Renzo De Paz DO Admit Provider, Other Provid er Active Dr. Salas Ely MD Other Provider Active Dr. Zana Fish MD Other Provider Active Dr. Francisco Pitts DO Other Provider Active Dr. Benjamin Morse MD Other Provider Active Dr. Janett Stallings MD Other Provider Active Dr. Barrie Berkowitz MD Other Provider Active Dr. Tia Marks MD Other Provider Active Dr. Isela Chris MD Other Provider Active Dr. Sulaiman Hardin MD Other Provider Active Dr. Mesfin Van MD Other Provider Active Dr. Patricio Myers MD Other Provider Active Dr. Malik Fair MD Other Provider Active Dr. Margarita Cortez MD Other Provider Active Dr. Alana Cavazos MD Other Provider Active Dulce Livingston MD Other Provider Active Yaya Neff , MS Other Provider Active Beba Lewis MD Other Provider Active NAIDA MCCARTHY MD Other Provider Active Anabell Patterson MD Other Provider Active Dr. Jonna Mansfield MD Other Provider Active Navjot Meadows MD Other Provider Active Jacklyn Queen MD Other Provider Active Dr. Paul Walsh MD Other Provider Active Dr. Shari Pastor MD Attending Provider, Other Provid er Active Team Status: Active Member Role Status Dates Dr. Lavon Vicente MD Primary Care Provider Active Dr. Estevan Aguila DO Emergency Provider Active Dr. Renzo De Paz , Admit Provider , Referring Provider, Other Provider Active Dr. Salas Ely MD Other Provider Active Dr. Zana Fish MD Other Provider Active Dr. Francisco Pitts , Attending Provider, Other Provide r Active Dr. Benjamin Morse MD Other Provider Active Dr. Janett Stallings MD Other Provider Active Dr. Barrie Berkowitz MD Other Provider Active Dr. Tia Marks MD Other Provider Active Dr. Isela Chris MD Other Provider Active Dr. Sulaiman Hardin MD Other Provider Active Dr. Mesfin Van MD Other Provider Active Dr. Patricio Myers MD Other Provider Active Dr. Malik Fair MD Other Provider Active Dr. Margarita Cortez MD Other Provider Active Dr. Alana Cavazos MD Other Provider Active Dulce Livingston MD Other Provider Active Yaya Neff , MS Other Provider Active Beba Lewis MD Other Provider Active NAIDA MCCARTHY MD Other Provider Active Anabell Patterson MD Other Provider Active Dr. Jonna Mansfield MD Other Provider Active Navjot Meadows MD Other Provider Active Jacklyn Queen MD Other Provider Active Dr. Paul Walsh MD Other Provider Active Dr. Shari Pastor MD Other Provider Active Tyrell Rodriguez MD Other Provider Active Harper Quach MD Other Provider Active Dr. Wendy Correa , DO Other Provider Active Dr. Javier Alfredo MD Other Provider Active Dr. Shelly Fernandez MD Other Provider Active Dr. John Minor MD Other Provider Active Dr. Roman Saunders MD Other Provider Active Dr. Keven Joseph MD Other Provider Active Dr. Jes Dumont MD Other Provider Active Dr. Fernando Salcedo MD Other Provider Active Dr. Urbano Oquendo MD Other Provider Active Dr. Duane Reyna MD Other Provider Active Dr. Jono Sharp MD Other Provider Active Dr. Heidi Carmona MD Other Provider Active Klaudia Mercado MD Other Provider Active Team Status: Active Member Role Status Dates Dr. Lavon Vicente MD Primary Care Provider Active Dr. Estevan Aguila , Emergency Provider Active Dr. Renzo De Paz , DO Admit Provider, Other Provid er Active Dr. Margarita Cortez MD Other Provider Active Dr. Alana Cavazos MD Other Provider Active Anabell Patterson MD Other Provider Active Dr. Jonna Mansfield MD Other Provider Active Dr. Shari Pastor MD Attending Provider, Other Provid er Active Dr. Paul Walsh MD Other Provider Active Dr. Salas Ely MD Other Provider Active Dr. Zana Fish MD Other Provider Active Dr. Francisco Pitts , Other Provider Active Dr. Benjamin Morse MD Other Provider Active Dr. Janett Stallings MD Other Provider Active Dr. Barrie Berkowitz MD Other Provider Active Dr. Tia Marks MD Other Provider Active Dr. Isela Chris MD Other Provider Active Dr. Sulaiman Hardin MD Other Provider Active Dr. Mesfin Van MD Other Provider Active Dr. Patricio Myers MD Other Provider Active Dr. Malik Fair MD Other Provider Active Tyrell Rodriguez MD Other Provider Active Harper Quach MD Other Provider Active Dr. Wendy Correa , Other Provider Active Dr. Javier Alfredo MD Other Provider Active Dr. Shelly Fernandez MD Other Provider Active Dr. John Minor MD Other Provider Active Dr. Roman Saunders MD Other Provider Active Dr. Keven Joseph MD Other Provider Active Dr. Jes Dumont MD Other Provider Active Dr. Fernando Salcedo MD Other Provider Active Dr. Urbano Oquendo MD Other Provider Active Dr. Duane Reyna MD Other Provider Active Dr. Jono Sharp MD Other Provider Active Dr. Heidi Carmona MD Other Provider Active Klaudia Mercado MD Other Provider Active Dulce Livingston MD Other Provider Active Yaya Neff , MS Other Provider Active Beba Lewis MD Other Provider Active NAIDA MCCARTHY MD Other Provider Active Navjot Meadows MD Other Provider Active Jacklyn Queen MD Other Provider Active Team Status: Active Member Role Status Dates Dr. Lavon Vicente MD Primary Care Provider Active Dr. Estevan Aguila , Emergency Provider Active Dr. Renzo De Paz , DO Admit Provider , Referring Provider, Other Provider Active Dr. Margarita Cortez MD Other Provider Active Dr. Alana Cavazos MD Other Provider Active Anabell Patterson MD Other Provider Active Dr. Jonna Mansfield MD Other Provider Active Dr. Paul Walsh MD Other Provider Active Tyrell Rodriguez MD Other Provider Active Harper Quach MD Other Provider Active Dr. Wendy Correa DO Other Provider Active Dr. Javier Alfredo MD Other Provider Active Dr. Shelly Fernandez MD Other Provider Active Dr. John Minor MD Other Provider Active Dr. Roman Saunders MD Other Provider Active Dr. Keven Joseph MD Other Provider Active Dr. Jes Dumont MD Other Provider Active Dr. Fernando Salcedo MD Other Provider Active Dr. Urbano Oquendo MD Other Provider Active Dr. Duane Reyna MD Other Provider Active Dr. Jono Sharp MD Other Provider Active Dr. Heidi Carmona MD Other Provider Active Klaudia Mercado MD Other Provider Active Dulce Livingston MD Other Provider Active Yaya Neff , MS Other Provider Active Beba Lewis MD Other Provider Active NAIDA MCCARTHY MD Other Provider Active Navjot Meadows MD Other Provider Active Jacklyn Queen MD Other Provider Active Dr. Raad Hope MD Other Provider Active Dr. Shari Pastor MD Other Provider Active Dr. Francisco Pitts DO Attending Provider Active Team Status: Active Member Role Status Dates Dr. Lavon Vicente MD Primary Care Provider Active Dr. Estevan Aguila , DO Emergency Provider Active Dr. Renzo De Paz , DO Admit Provider , Referring Provider, Other Provider Active Dr. Margarita Cortez MD Other Provider Active Dr. Alana Cavazos MD Other Provider Active Anabell Patterson MD Other Provider Active Dr. Jonna Mansfield MD Other Provider Active Dr. Paul Walsh MD Other Provider Active Tyrell Rodriguez MD Other Provider Active Harper Quach MD Other Provider Active Dr. Wendy Correa , Other Provider Active Dr. Javier Alfredo MD Other Provider Active Dr. Shelly Fernandez MD Other Provider Active Dr. John Minor MD Other Provider Active Dr. Roman Saunders MD Other Provider Active Dr. Keven Joseph MD Other Provider Active Dr. Jes Dumont MD Other Provider Active Dr. Fernando Salcedo MD Other Provider Active Dr. Urbano Oquendo MD Other Provider Active Dr. Duane Reyna MD Other Provider Active Dr. Jono Sharp MD Other Provider Active Dr. Heidi Carmona MD Other Provider Active Klaudia Mercado MD Other Provider Active Dulce Livingston MD Other Provider Active Yaya Neff MS Other Provider Active Beba Lewis MD Other Provider Active NAIDA MCCARTHY MD Other Provider Active Navjot Meadows MD Other Provider Active Jacklyn Queen MD Other Provider Active Dr. Raad Hope MD Attending Provider, Other Provi china Active Dr. Shari Pastor MD Other Provider Active Team Status: Active Member Role Status Dates Dr. Lavon Vicente MD Primary Care Provider Active Dr. Estevan Aguila , DO Emergency Provider Active Dr. Renzo De Paz , DO Admit Provider , Referring Provider, Other Provider Active Dr. Margarita Cortez MD Other Provider Active Dr. Alana Cavazos MD Other Provider Active Anabell Patterson MD Other Provider Active Dr. Jonna Mansfield MD Other Provider Active Dr. Paul Walsh MD Other Provider Active Tyrell Rodriguez MD Other Provider Active Harper Quach MD Other Provider Active Dr. Wendy Correa DO Other Provider Active Dr. Javier Alfredo MD Other Provider Active Dr. Shelly Fernandez MD Other Provider Active Dr. John Minor MD Other Provider Active Dr. Roman Saunders MD Other Provider Active Dr. Keven Joseph MD Other Provider Active Dr. Jes Dumont MD Other Provider Active Dr. Fernando Salcedo MD Other Provider Active Dr. Urbano Oquendo MD Other Provider Active Dr. Duane Reyna MD Other Provider Active Dr. Jono Sharp MD Other Provider Active Dr. Heidi Carmona MD Other Provider Active Klaudia Mercado MD Other Provider Active Dulce Livignston MD Other Provider Active Yaya Neff MS Other Provider Active Beba Lewis MD Other Provider Active NAIDA MCCARTHY MD Other Provider Active Navjot Meadows MD Other Provider Active Jacklyn Queen MD Other Provider Active Dr. Raad Hope MD Other Provider Active Dr. Shari Pastor MD Other Provider Active Dr. Flaco Choi MD Other Provider Active Ronel Conte NP-C Attending Provider Active Team Status: Active Member Role Status Dates Dr. Lavon Vicente MD Primary Care Provider Active Dr. Estevan Aguila , Emergency Provider Active Dr. Renzo De Paz , Admit Provider, Other Provid er Active Dr. Margarita Cortez MD Other Provider Active Dr. Alana Cavazos MD Other Provider Active Anabell Patterson MD Other Provider Active Dr. Jonna Mansfield MD Other Provider Active Dr. Paul Walsh MD Other Provider Active Tyrell Rodriguez MD Other Provider Active Harper Quach MD Other Provider Active Dr. Wendy Correa DO Other Provider Active Dr. Javier Alfredo MD Other Provider Active Dr. Shelly Fernandez MD Other Provider Active Dr. John Minor MD Other Provider Active Dr. Roman Saunders MD Other Provider Active Dr. Keven Joseph MD Other Provider Active Dr. Jes Dumont MD Other Provider Active Dr. Fernando Salcedo MD Other Provider Active Dr. Urbano Oquendo MD Other Provider Active Dr. Duane Reyna MD Other Provider Active Dr. Jono Sharp MD Other Provider Active Dr. Heidi Carmona MD Other Provider Active Klaudia Mercado MD Other Provider Active Dulce Livingston MD Other Provider Active Yaya Neff , MS Other Provider Active Beba Lewis MD Other Provider Active NAIDA MCCARTHY MD Other Provider Active Navjot Meadows MD Other Provider Active Jacklyn Queen MD Other Provider Active Dr. Raad Hope MD Attending Provider, Other Provi china Active Dr. Shari Pastor MD Other Provider Active Dr. Flaco Choi MD Other Provider Active Team Status: Active Member Role Status Dates Dr. Lavon Vicente MD Primary Care Provider Active Dr. Estevan Aguila DO Emergency Provider Active Dr. Renzo De Paz , DO Admit Provider , Referring Provider, Other Provider Active Dr. Margarita Cortez MD Other Provider Active Dr. Alana Cavazos MD Other Provider Active Anabell Patterson MD Other Provider Active Dr. Jonna Mansfield MD Other Provider Active Dr. Paul Walsh MD Other Provider Active Tyrell Rodriguez MD Other Provider Active Harper Quach MD Other Provider Active Dr. Wendy Correa DO Other Provider Active Dr. Javier Alfredo MD Other Provider Active Dr. Shelly Fernandez MD Other Provider Active Dr. John Minor MD Other Provider Active Dr. Roman Saunders MD Other Provider Active Dr. Keven Joseph MD Other Provider Active Dr. Jes Dumont MD Other Provider Active Dr. Fernando Salcedo MD Other Provider Active Dr. Urbano Oquendo MD Other Provider Active Dr. Duane Reyna MD Other Provider Active Dr. Jono Sharp MD Other Provider Active Dr. Heidi Carmona MD Other Provider Active Klaudia Mercado MD Other Provider Active Dulce Livingston MD Other Provider Active Yaya Neff , MS Other Provider Active Beba Lewis MD Other Provider Active NAIDA MCCARTHY MD Other Provider Active Navjot Meadows MD Other Provider Active Jacklyn Queen MD Other Provider Active Dr. Raad Hope MD Attending Provider, Other Provi china Active Dr. Shari Pastor MD Other Provider Active Dr. Flaco Choi MD Other Provider Active Team Status: Inactive Member Role Status Dates Dr. Lavon Vicente MD Primary Care Provider Active Dr. Estevan Mingo , DO Emergency Provider Active Dr. Renzo De Paz , DO Admit Provider , Referring Provider, Other Provider Active Dr. Margarita Cortez MD Other Provider Active Dr. Alana Cavazos MD Other Provider Active Anabell Patterson MD Other Provider Active Dr. Jonna Mansfield MD Other Provider Active Dr. Paul Walsh MD Other Provider Active Tyrell Rodriguez MD Other Provider Active Harper Quach MD Other Provider Active Dr. Wendy Correa , Other Provider Active Dr. Javier Alfredo MD Other Provider Active Dr. Shelly Fernandez MD Other Provider Active Dr. John Minor MD Other Provider Active Dr. Roman Saunders MD Other Provider Active Dr. Keven Joseph MD Other Provider Active Dr. Jes Dumont MD Other Provider Active Dr. Fernando Salcedo MD Other Provider Active Dr. Urbano Oquendo MD Other Provider Active Dr. Duane Reyna MD Other Provider Active Dr. Jono Sharp MD Other Provider Active Dr. Heidi Carmona MD Other Provider Active Klaudia Mercado MD Other Provider Active Dulce Livingston MD Other Provider Active Yaya Neff , MS Other Provider Active Beba Lewis MD Other Provider Active NAIDA MCCARTHY MD Other Provider Active Navjot Meadows MD Other Provider Active Jacklyn Queen MD Other Provider Active Dr. Raad Hope MD Attending Provider Active Dr. Shari Pastor MD Other Provider Active Dr. Flaco Choi MD Other Provider Active Team Status: Active Member Role Status Dates Dr. Lavon Vicente MD Primary Care Provider Active Dr. Estevan Aguila , Emergency Provider Active Dr. Renzo De Paz , DO Admit Provider, Other Provid er Active Dr. Margarita Cortez MD Other Provider Active Dr. Alana Cavazos MD Other Provider Active Anabell Patterson MD Other Provider Active Dr. Jonna Mansfield MD Other Provider Active Dr. Paul Walsh MD Other Provider Active Tyrell Rodriguez MD Other Provider Active Harper Quach MD Other Provider Active Dr. Wendy Correa , Other Provider Active Dr. Javier Alfredo MD Other Provider Active Dr. Shelly Fernandez MD Other Provider Active Dr. John Minor MD Other Provider Active Dr. Roman Saunders MD Other Provider Active Dr. Keven Joseph MD Other Provider Active Dr. Jes Dumont MD Other Provider Active Dr. Fernando Salcedo MD Other Provider Active Dr. Urbano Oquendo MD Other Provider Active Dr. Duane Reyna MD Other Provider Active Dr. Jono Sharp MD Other Provider Active Dr. Heidi Carmona MD Other Provider Active Klaudia Mercado MD Other Provider Active Dulce Livingston MD Other Provider Active Yaya Neff MS Other Provider Active Beba Lewis MD Other Provider Active NAIDA MCCARTHY MD Other Provider Active Navjto Meadows MD Other Provider Active Jacklyn Queen MD Other Provider Active Dr. Raad Hope MD Attending Provider, Other Provi china Active Dr. Shari Pastor MD Other Provider Active Team Status: Active Member Role Status Dates Dr. Lavon Vicente MD Primary Care Provider Active Lavon SERRANO Attending Provider, Referring Provide r Active Team Status: Active Member Role Status Dates Dr. Lavon Vicente MD Primary Care Provider Active Dr. Paul Walsh MD Attending Provider, Referrin g Provider Active Team Status: Inactive Member Role Status Dates Dr. Lavon Vicente MD Primary Care Provider Active Dr. Paul Walsh MD Attending Provider, Referrin g Provider Active Team Status: Inactive Member Role Status Dates Dr. Lavon Vicente MD Primary Care Provider Active Start: June 12, 2024 End: June 12, 2024 Dr. Kori SERRANO MD Attending Provider Active Start: June 12, 2024 End: June 12, 2024 Team Status: Inactive Member Role Status Dates Dr. Lavon Vicente MD Primary Care Provider Active Start: July 03, 2024 End: July 03, 2024 Dr. Kori SERRANO MD Attending Provider Active Start: July 03, 2024 End: July 03, 2024 Team Status: Inactive Member Role Status Dates Dr. Lavon Vicente MD Primary Care Provider Active Start: July 03, 2024 End: July 03, 2024 Dr. Kenia Hammond MD Attending Provider Active Start: July 03, 2024 End: July 03, 2024 Dr. Kenia Hammond MD Referring Provider Active Start: July 03, 2024 End: July 03, 2024 Team Status: Active Member Role Status Dates Dr. Lavon Vicente MD Primary Care Provider Active Start: July 05, 2024 Dr. Kori SERRANO MD Attending Provider Active Start: July 05, 2024 Team Status: Inactive Member Role Status Dates Dr. Lavon Vicente MD Primary Care Provider Active Start: July 07, 2024 End: July 07, 2024 Dr. Kori SERRANO MD Attending Provider Active Start: July 07, 2024 End: July 07, 2024 Team Status: Active Member Role Status Dates Dr. Lavon Vicente MD Primary Care Provider Active Start: July 14, 2024 Dr. Kori SERRANO MD Attending Provider Active Start: July 14, 2024 Team Status: Active Member Role Status Dates Dr. Lavon Vicente MD Primary Care Provider Active Start: July 25, 2024 Dr. Kori SERRANO MD Attending Provider Active Start: July 25, 2024 Team Status: Inactive Member Role Status Dates Dr. Lavon Vicente MD Primary Care Provider Active Start: September 06, 2024 End: September 06, 2024 Lavon SERRANO Attending Provider Active Start : September 06, 2024 End: September 06, 2024 Team Status: Inactive Member Role Status Dates Dr. Lavon Vicente MD Primary Care Provider Active Start: October 06, 2024 End: October 06, 2024 Dr. Kori SERRANO MD Attending Provider Active Start: October 06, 2024 End: October 06, 2024 Source Comments (unrecognize d section and content) In the event this informatio n is protected by the Federal Confidentiality of Alcohol and Drug Abuse Patient Records regulations: The Federal rules restrict any use of the information to criminally investigate or prosecute any alcohol or drug abuse patient.[facility] Reason for Visit (unrecogniz ed section and content) Reason Comments New Patient INFORMATION SOURCE (unrecogn ized section and content) DATE CREATED AUTHOR 11/23/2022 [facility] DATE CREATED AUTHOR AUTHOR'S ORGANIZ ATION 02/04/2024 [facility] [place] DATE CREATED AUTHOR AUTHOR'S ORGANIZ ATION 06/07/2024 [facility] DATE CREATED AUTHOR AUTHOR'S ORGANIZ ATION 12/05/2024 [facility] FOR RECORDS PERTAINING TO PATIENTS WHO ARE [...] BE BASED ON THE PRIMARY CLINICAL RECORDS. [employer] [facility]. provides no warranty or guarantee of the accuracy or completeness of information in this document.
[2024-12-05 08:04] LABS: Hematocrit 32.4 % (37-47); Mean Corp Hgb Conc 30.9 g/dL (32-36); Mean Corpuscular Hgb 25.6 pg (27.0-32.0); Mean Corpuscular Volume 83.1 fL (81-99); Mean Platelet Vol. 9.5 fl (6.2-12.0); Platelet Count 342 K/mm3 (150-450); RBC Distribution Width CV 14.9 % (11.6-14.6); RBC Distribution Width SD 45.4 fl (35.1-43.9); White Blood Count 7.4 K/mm3 (4.4-11.0)
== END ==
LOC: OLS.SW 05:00
PROVIDERS: PCP Family Medicine; Visit Provider Internal Medicine
DX: D64.9 Anemia, unspecified (principal)
CPT/HCPCS: 85027

== ENCOUNTER → 2024-12-19 | Outpatient (REF) | payer MEDICARE, MEDICAID, SELFPAY ==
[2024-12-19 08:33] LABS: Color, Urine Yellow (Yellow); Glucose, Dipstick Normal (Normal); Ketone-Dipstick Negative (Negative); Leukocyte Esterase-Dipstick 500 /ul (Negative); Nitrite-Dipstick Positive (Negative); Occult Blood-Urine 50 /ul (Negative); Protein-Dipstick 15 mg/dl (Negative); Specific Gravity, Urine 1.015 (1.002-1.030); Urine Bilirubin Dipstick Negative (Negative)
[2024-12-19 08:44] LABS: Hematocrit 32.5 % (37-47); Hemoglobin 9.7 g/dL (12.0-15.0); Immature Granulocytes Count 0.020 X10^3/uL (0.0-0.0); Mean Corp Hgb Conc 29.8 g/dL (32-36); Mean Corpuscular Volume 83.5 fL (81-99); Mean Platelet Vol. 9.7 fl (6.2-12.0); NRBC Flagged by Analyzer 0 % (0-5); Platelet Count 367 K/mm3 (150-450); RBC Distribution Width CV 14.7 % (11.6-14.6); RBC Distribution Width SD 44.6 fl (35.1-43.9); Red Blood Count 3.89 M/mm3 (4.2-5.4); White Blood Count 9.0 K/mm3 (4.4-11.0)
[2024-12-19 09:11] LABS: Anion Gap 10 (5-15); BUN 12 mg/dL (4-19); BUN/Creat Ratio 31.6 RATIO (10-20); Calcium,Total 8.8 mg/dL (7.6-11.0); Carbon Dioxide 29.3 mmol/L (21.0-32.0); Chloride 100 mmol/L (98-108); Glucose 104 mg/dL (70-99); Potassium 3.8 mmol/L (3.3-5.1)
== END ==
LOC: OLS.SW 05:00
PROVIDERS: PCP Family Medicine; Visit Provider Internal Medicine
DX: R10.30 Lower abdominal pain, unspecified (principal)
CPT/HCPCS: 36415; 80048; 81002; 85025; 87077; 87086; 87088; 87186

== ENCOUNTER → 2025-02-21 | Outpatient (REF) | payer MEDICARE, MEDICAID, SELFPAY | LOC: OLS.SW 13:08 | PROVIDERS: PCP Family Medicine; Visit Provider Internal Medicine | DX: K59.00 Constipation, unspecified (principal) | CPT/HCPCS: 82274 ==

== ENCOUNTER → 2025-02-27 | Outpatient (REF) | payer MEDICARE, MEDICAID, SELFPAY ==
[2025-02-27 08:12] LABS: Cholesterol 172 mg/dL (<=200); Low Density Lipoprotein Calc. 100 mg/dL; T4 Total, Thyroxin 8.2 ug/dL (4.8-13.9); Triglycerides 158 mg/dL; Very Low Density Lipoprotein 32 mg/dL (5-40); cholesterol:hdl ratio screen 4.22
== END ==
LOC: OLS.SW 05:00
PROVIDERS: PCP Family Medicine; Visit Provider Internal Medicine
DX: N39.0 Urinary tract infection, site not specified (principal); G82.50 Quadriplegia, unspecified; E03.9 Hypothyroidism, unspecified
CPT/HCPCS: 36415; 80061; 84436; 84443

== ENCOUNTER 2025-03-02 09:41 | Day surgery (SDC) | payer MEDICARE, MEDICAID, SELFPAY ==
[2025-03-02] VITALS (11 sets, daily range): BP systolic 93–127; BP diastolic 63–99; PULSE 75–94; RESP 12–18; TEMP 36.2–36.8; O2SAT 90–100; BMI 49.1
--- NOTE | 2025-03-02 10:00 | RAD_ITS ---
PROCEDURE: FLUOR GUIDANCE FOR SPINE INJ 03/02/2025 REASON FOR EXAM: CAUDAL BLOCK TECHNIQUE: Procedure Code: RADSPN Modality: DX Procedure: FLUOR GUIDANCE FOR SPINE INJ. Intraoperative fluoroscopic services provided for caudal block. Radiation dose: 8.8 seconds of fluoroscopy. 7.85 mGy. A single image was submitted. COMPARISON: Prior study dated July 03, 2024. FINDINGS: Intraoperative fluoroscopic services provided for caudal block. RAD/Fluor Guidance for Spine Inj IMPRESSION: Intraoperative fluoroscopic services provided for caudal block. Reading Location: [place] [id number]
[2025-03-02] MEDS: Lactated Ringers 1,000 ML 15 ML IV (10:20)
--- NOTE | 2025-03-02 10:24 | PCM.PRE.AN2 ---
ASA Classification* ASA Classification ASA Classification: 3 Assessment & Plan Anesthesia* Anesthesia Assessment Anesthesia Assessment: Discussed sedation and/or anesthesia options, risks, benefits, and alternatives with patient/parents/legal guardian/POA. Questions invited. The patient/parents/legal guardian/POA seems to understand and agrees to proceed with anesthesia plan. Reviewed the physical assessment, medical history, allergy history and patient home medications list prior to surgery/procedure/anesthetic and documented any changes. Performed airway and anesthesia risk assessments. Anesthesia Type Anesthesia Type: MAC (NO SUX) Anesthesia Focused Assessment* Temperature: 98.2 F Pulse Rate: 75 Blood Pressure: 119/82 Respiratory Rate: 18 Pulse Ox: 100 Oxygen Flow Rate (L/min): 4 Airway Assessment Mouth opens: >3 cm Mallampati Score: II Labs Anesthesia Preop lab: CBC WBC, (4.4-11.0) 9.0 K/mm3 12/19/24, 06:30 RBC, (4.2-5.4) 3.89 M/mm3 L 12/19/24, 06:30 Hgb, (12.0-15.0) 9.7 g/dL L 12/19/24, 06:30 Hct, (37-47) 32.5 % L 12/19/24, 06:30 Plt Count, (150-450) 367 K/mm3 12/19/24, 06:30 CHEMISTRY Potassium, (3.3-5.1) 3.8 mmol/L 12/26/24, 07:15 Sodium, (133-145) 141 mmol/L 12/26/24, 07:15 Magnesium, (1.6-2.6) 2.0 mg/dL 11/15/22, 05:08 BUN, (4-19) 12 mg/dL 12/26/24, 07:15 Creatinine, (0.70-1.20) 0.23 mg/dL L 12/26/24, 07:15 Glucose, (70-99) 103 mg/dL H 12/26/24, 07:15 TSH, (0.300-4.200) 3.120 uIU/mL 02/27/25, 06:05 COAG PT, (11.7-14.9) 14.2 SECONDS 07/02/23, 23:15 Pre-Assessment Diagnosis/Proposed Procedure Planned Operative Procedure(s): BLOCK,CAUDAL Anesthesia History 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 When Was Last Pacemaker Check QUESTION #4 FULL TEXT: You/Your Family Experience fever (hyperthermia) with Anesthesia Last Oral Intake Last Oral intake: Last Oral Intake NPO since 17:00 03/02/25 10:10 Meds taken in AM with sips of Yes 03/02/25 10:10 water? Meds patient instructed to see MAR 03/02/25 10:10 take am of surgery PONV PONV - press box custodian: PONV - press box custodian Female Yes 02/28/25 15:41 HX of Motion Sickness No 02/28/25 15:41 HX of N/V After Surgery No 02/28/25 15:41 Non-Smoker Yes 02/28/25 15:41 Duration of Surgery greater No 02/28/25 15:41 than 60 minutes Number of Risk Factors 2 02/28/25 15:41 PONV Score Moderate Risk 02/28/25 15:41 Height & Weight Height & Weight: Anesthesia: Height & Weight Height 5 ft 1 in 03/02/25 10:10 Weight: 117.934 kg 03/02/25 10:10 Body Mass Index (BMI) 49.1 03/02/25 10:10 Respiratory Assessment Respiratory Assessment - press box custodian: Respiratory Tract Infection Hx - press box custodian Hx Respiratory Tract Infection No 02/28/25 15:41 STOP Sleep Apnea STOP Sleep Apnea - press box custodian: STOP Sleep Apnea - press box custodian Hx Hypertension No 02/28/25 15:41 Hx Sleep Apnea No 02/28/25 15:41 CPAP No 07/03/24 12:45 BIPAP No 07/03/24 12:17 Do you snore loudly (louder No 02/28/25 15:41 than talking or can be heard Do you often feel tired/ Yes 02/28/25 15:41 fatigued/ sleepy during daytime? Has anyone observed you stop No 02/28/25 15:41 breathing during sleep? STOP Results Negative 02/28/25 15:41 QUESTION #5 FULL TEXT : Do you snore loudly (louder than talking or can be heard through closed doors)? Tobacco Use History Tobacco Use History - press box custodian: Tobacco Use History - press box custodian Tobacco Use Smoking Status Never smoker 02/28/25 15:41 Hx Tobacco Use No 02/28/25 15:41 Years Smoking Packs Smoked per Day Smoking Cessation Date was within the last 15 years Hx Smoking Cessation Date Hx Smoking Cessation Counseling Hematologic Medial History Hematologic Hx - press box custodian: Hematologic Medical Hx - registered dietitian Hx of Blood Transfusion Yes 02/28/25 15:41 Hx of Transfusion in last 3 No 02/28/25 15:41 Months Date of Last Transfusion (if within last 3 months) Ever experience any problems No 02/28/25 15:41 with transfusion(s)? Specify any problems Hx of Preganancy in last 3 No 02/28/25 15:41 Months Nurse Filling Out Transfusion DSCHRIBER 02/28/25 15:41 & Questions: Date: 02/28/25 02/28/25 15:41 Time: 15:47 02/28/25 15:41 Patient unable to answer at this time (ie. confused, unrespo /Reproduction History /Reproductive History - press box custodian: /Reproductive Hx- press box custodian Hx Now No 02/28/25 15:41 Gestational Age (in weeks): EDC: Hx Hx Para Hx Section SAB No 02/28/25 15:41 Active Medications Active Medications: Current Medications Generic Name Dose Route Start Last Admin Trade Name Freq PRN Reason Stop Dose Admin Lactated Ringer's 1,000 mls @ 15 mls/hr 03/02/25 10:00 03/02/25 10:20 IV 15 mls/hr .Q48H MIRIAM Administration PFSH Medical History Gastric reflux History of stress test Lives in jail On home oxygen therapy History of edema MRSA (methicillin resistant staph aureus) culture positive Seizure Neuromuscular dysfunction of bladder History of Vnskg-Fsjpiwrtw-Ntuyv (WPW) syndrome Spinal cord injury (2010) Paraplegia Cocaine abuse Heroin use Chronic headaches Right ischial pressure sore, stage 4 Left femoral shaft fracture Deep vein thrombosis of right lower extremity Hypothyroidism Chronic pain Hx: UTI (urinary tract infection) Depression Suprapubic catheter Quadriparesis Home Medications ?Medication ?Instructions ?Recorded ?Last Taken ?Type levothyroxine 75 mcg tablet 75 mcg PO MOTUWETHFRSA 05/28/15 03/02/25 History hypothyroidism duloxetine 60 mg capsule,delayed 90 mg PO QHS depression 08/21/15 07/02/24 History release acetaminophen 325 mg tablet 650 mg PO Q4H PRN PRN Pain or fever 03/01/18 04/21/21 History bisacodyl 10 mg rectal suppository 10 mg NC QHS PRN Constipation 03/01/18 04/21/21 History omeprazole 20 mg capsule,delayed 20 mg PO DAILY GERD 03/01/18 07/02/24 History release furosemide 40 mg tablet 20 mg PO BREAKFAST edema 05/26/18 03/02/25 History cholecalciferol (vitamin D3) 50 2,000 unit PO DAILY SUPPLEMENT 08/08/19 07/02/24 History mcg (2,000 unit) capsule polyethylene glycol 3350 17 gram 17 gm PO QHS constipation 08/08/19 04/21/21 History oral powder packet docusate sodium 100 mg capsule 200 mg PO BID constipation 10/11/20 04/21/21 History (Colace) furosemide 20 mg tablet 20 mg PO QHS edema 04/21/21 07/02/24 History gabapentin 800 mg tablet 1,600 mg PO TID NEUROPATHY 04/22/21 03/02/25 History loperamide 2 mg tablet 1 mg PO Q4H PRN Diarrhea 06/03/22 Unknown History magnesium hydroxide 400 mg/5 mL 30 ml PO DAILY PRN Constipation 06/03/22 07/02/24 History oral suspension (Milk of Magnesia) melatonin 5 mg tablet 10 mg PO QHS PRN insomnia 06/03/22 07/02/24 History ondansetron HCl 4 mg tablet 4 mg PO Q4H PRN Nausea 06/03/22 Unknown History simethicone 80 mg tablet 80 mg PO DAILY PRN Gastric Reflux 06/03/22 Unknown History benzonatate 100 mg capsule 100 mg PO Q6H PRN 07/02/23 Unknown History buspirone 10 mg tablet 10 mg PO QHS 07/02/23 07/02/24 History cetirizine 10 mg capsule (All Day 10 mg PO QHS allergies 07/02/23 07/03/24 History Allergy (cetirizine)) diphenhydramine HCl 25 mg tablet 50 mg PO Q8H PRN itching 07/02/23 Unknown History (Allergy (diphenhydramine)) linaclotide 145 mcg capsule 145 mcg PO DAILY constipation 07/02/23 07/02/24 History (Linzess) paroxetine HCl 10 mg tablet 10 mg PO QHS 07/02/23 07/02/24 History baclofen 20 mg tablet 40 mg PO 4X/DAY 02/28/25 03/02/25 History buprenorphine 20 mcg/hour weekly 1 patch topical QWEEK 02/28/25 Unknown History transdermal patch buspirone 7.5 mg tablet 7.5 mg PO DAILY 02/28/25 Unknown History carbamide peroxide 6.5 % ear drops 1 drp otic (ear) Q12H PRN itching 02/28/25 Unknown History (Debrox) clotrimazole 1 % topical cream 1 applic topical TID 02/28/25 Unknown History isosorbide mononitrate 20 mg tablet 20 mg PO QHS 02/28/25 Unknown History levothyroxine 150 mcg tablet 150 mcg PO CANO 02/28/25 Unknown History potassium chloride 10 mEq 10 meq PO QHS 02/28/25 Unknown History capsule,extended release potassium chloride 10 mEq 20 meq PO DAILY hypokalemia 02/28/25 Unknown History capsule,extended release sennosides 8.6 mg-docusate sodium 1 tab-cap PO DAILY PRN constipation 02/28/25 Unknown History 50 mg tablet (Senna Plus) tramadol 50 mg tablet 50 mg PO TID 02/28/25 Unknown History Allergy/AdvReac Type Severity Reaction Status Date / Time apixaban (From Eliquis) Allergy Rash Verified 03/02/25 09:59 coconut oil Allergy cant breath Verified 03/02/25 09:59 mometasone furoate (From Allergy Rash Verified 03/02/25 09:59 Elocon) nitrofurantoin Allergy Unknown Verified 03/02/25 09:59 rivaroxaban (From Xarelto) Allergy Rash Verified 03/02/25 09:59 Sulfa (Sulfonamide Allergy Shortness Verified 03/02/25 09:59 Antibiotics) of breath Penicillins AdvReac NEEDS Verified 03/02/25 09:59 FOLLOW-UP Family History Mother Diabetes Grandfather CAD (coronary artery disease) Colon cancer Grandmother Breast cancer Aunt Ovarian cancer Surgical History History of tracheostomy (2010) Social History Smoking Status: Never smoker Review of Systems (Anesthesia) ROS Narrative System reviewed and no additional complaints, except as documented.
[2025-03-02] MEDS: Midazolam 2 MG/2 ML Syringe 1 MG IV (12:24)
[2025-03-02] MEDS: fentaNYL 100 MCG/2 ML Ampul 25 MCG IV (12:26)
[2025-03-02] MEDS: Lidocaine 0.5% (50 ml) 50 ML Vial (12:29)
--- NOTE | 2025-03-02 12:46 | PCM.POST.ANE ---
Anesthesia: Postop Eval I Current Vital Signs Temperature: 97.7 F Pulse Rate: 90 Blood Pressure: 106/69 Respiratory Rate: 12 Pulse Ox: 90 Oxygen Delivery Method: Room Air Assessment Airway patent: Yes Spontaneous unlabored respirations: Yes Mental status: Awake and Calm nausea: No Vomiting: No Anesthesia Complication: No Fluid Hydration Crystalloid volume administer (ml): 300 Total IV fluid infused: 300 Progress Note Anesthesia document: Postop Eval 1 completed: Yes
--- NOTE | 2025-03-02 13:22 | POSTOPAN2_ITS ---
Anesthesia Postop Eval I Sum Postop Eval Completion status Anesthesia document: Postop Eval 1 completed: Yes Anesthesia Postop Eval I Summary Anesthesia Postop Eval I Summary: Anesthesia Postop Eval I: Assessment Summary Airway patent Yes 03/02/25 12:48 SHOOTER'S HELPER.JDEF Spontaneous unlabored Yes 03/02/25 12:48 SHOOTER'S HELPER.JDEF respirations Mental status Awake,Calm 03/02/25 12:48 SHOOTER'S HELPER.JDEF nausea No 03/02/25 12:48 SHOOTER'S HELPER.JDEF Vomiting No 03/02/25 12:48 SHOOTER'S HELPER.JDEF Anesthesia Postop Eval I: Fluid Summary Crystalloid volume administer 300 03/02/25 12:48 SHOOTER'S HELPER.JDEF (ml) Colloids volume administered ( ml) Blood Product volume administered (ml) Total IV fluid infused 300 03/02/25 12:48 SHOOTER'S HELPER.JDEF Anesthesia Postop Eval I: Summary Notes Anesthesia Complication No 03/02/25 12:48 SHOOTER'S HELPER.JDEF Anesthesia Complication Comment: Post-operative progress note Anesthesia: Postop Eval II Evaluation Mental status: Awake Pain Level: 3 nausea: No Vomiting: No
--- NOTE | 2025-03-02 13:22 | PCM.POSTANE2 ---
Anesthesia Postop Eval I Sum Postop Eval Completion status Anesthesia document: Postop Eval 1 completed: Yes Anesthesia Postop Eval I Summary Anesthesia Postop Eval I Summary: Anesthesia Postop Eval I: Assessment Summary Airway patent Yes 03/02/25 12:48 DATA VISUALIZATION DEVELOPER.JDEF Spontaneous unlabored Yes 03/02/25 12:48 DATA VISUALIZATION DEVELOPER.JDEF respirations Mental status Awake,Calm 03/02/25 12:48 DATA VISUALIZATION DEVELOPER.JDEF nausea No 03/02/25 12:48 DATA VISUALIZATION DEVELOPER.JDEF Vomiting No 03/02/25 12:48 DATA VISUALIZATION DEVELOPER.JDEF Anesthesia Postop Eval I: Fluid Summary Crystalloid volume administer 300 03/02/25 12:48 DATA VISUALIZATION DEVELOPER.JDEF (ml) Colloids volume administered ( ml) Blood Product volume administered (ml) Total IV fluid infused 300 03/02/25 12:48 DATA VISUALIZATION DEVELOPER.JDEF Anesthesia Postop Eval I: Summary Notes Anesthesia Complication No 03/02/25 12:48 DATA VISUALIZATION DEVELOPER.JDEF Anesthesia Complication Comment: Post-operative progress note Anesthesia: Postop Eval II Evaluation Mental status: Awake Pain Level: 3 nausea: No Vomiting: No
--- NOTE | 2025-03-02 14:08 | SUR.PHASEII ---
Report called to Tee at [facility]
== END 2025-03-02 14:36 | disposition home or self-care (01) ==
LOC: SDC 09:46 → AC 09:48
PROVIDERS: PCP Family Medicine; Referring Provider Anesthesiology Pain Medicine; Visit Provider Anesthesiology Pain Medicine
PROC: 3E0S3BZ Introduction of Anesthetic Agent into Epidural Space, Percutaneous Approach (ICD-10-PCS; CPT 62282; principal; 2025-03-02 10:55)
DX: M54.16 Radiculopathy, lumbar region (principal); G20.A1 Parkinson's disease without dyskinesia, without mention of fluctuations; G89.4 Chronic pain syndrome; M47.816 Spondylosis without myelopathy or radiculopathy, lumbar region; M96.1 Postlaminectomy syndrome, not elsewhere classified; M51.26 Other intervertebral disc displacement, lumbar region; M46.1 Sacroiliitis, not elsewhere classified; M54.18 Radiculopathy, sacral and sacrococcygeal region
CPT/HCPCS: 62323; 01992; 64483; 77003; J2405

== ENCOUNTER → 2025-03-22 07:10 | Outpatient (REF) | payer MEDICARE, MEDICAID, SELFPAY ==
[2025-03-22 09:25] LABS: Hematocrit 32.3 % (37-47); Hemoglobin 9.9 g/dL (12.0-15.0); Mean Corp Hgb Conc 30.7 g/dL (32-36); Mean Corpuscular Volume 82.6 fL (81-99); Mean Platelet Vol. 9.5 fl (6.2-12.0); Platelet Count 298 K/mm3 (150-450); RBC Distribution Width CV 15.0 % (11.6-14.6); RBC Distribution Width SD 45.5 fl (35.1-43.9); Red Blood Count 3.91 M/mm3 (4.2-5.4); White Blood Count 7.6 K/mm3 (4.4-11.0)
[2025-03-22 11:36] LABS: Anion Gap 10 (5-15); BUN 10 mg/dL (4-19); BUN/Creat Ratio 44.6 RATIO (10-20); Calcium,Total 8.5 mg/dL (7.6-11.0); Carbon Dioxide 30.3 mmol/L (21.0-32.0); Chloride 100 mmol/L (98-108); Glucose 113 mg/dL (70-99); Potassium 3.9 mmol/L (3.3-5.1)
== END ==
LOC: OLS.SW 07:10
PROVIDERS: PCP Family Medicine; Visit Provider Internal Medicine
DX: E78.5 Hyperlipidemia, unspecified (principal); I82.409 Acute embolism and thrombosis of unspecified deep veins of unspecified lower extremity; E03.9 Hypothyroidism, unspecified
CPT/HCPCS: 36415; 80048; 85027

== ENCOUNTER 2025-04-21 05:32 | Emergency (ER) | payer MEDICARE, MEDICAID, SELFPAY ==
[2025-04-21 05:34] VITALS: BP 155/89; PULSE 89; RESP 16; TEMP 36.7; O2SAT 98; BMI 47.7
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
--- OUTSIDE RECORDS SUMMARY | 2025-04-21 06:07 | XMS RPT_ITS | CCD ---
Author Organization [facility] Care Team Providers Care Pipe Stripper Name Role Phone PHYSICIAN, PATIENT UNSURE Primary Care Physician Unavailable Dr. Lavon Vicente Primary Care Provider Dr. Romero River Emergency Provider Simin, Dr. Shaw Admit Provider Simin, Dr. Shaw Attending Provider [facility], Dr. Shaw Other Provider Dr. Lavon Vicente Primary Care Provider Dr[facility]ero [facility] Valeria Hiit Provider Galinaashleyadriano, Dr. Shaw Attending Provider [facility], Dr. Shaw Other Provider Dr. Estevan Aguila Emergency Provider Dr. Shari Pastor Admit Provider Dr. Shari Pastor Attending Provider Dr. Shari Pastor Other Provider Dr. Renzo Alva Attending Provider Unavailable Dr. Renzo Alva Other Provider Unavailable Dr. Paul Walsh Other Provider Dr. Lavon Vicente Primary Care Provider Dr. Romero River Emergency Provider [place], Dr. Cary Admit Provider Dr. Valeria Duval Attending Provider Dr. Valeria Duval Other Provider Patricia Guo Nancie Unavailable Lavon Vicente MD Unavailable Lavon [...] Unavailabl e Dr. Salas Ely Other Provider [phone] Dr. Zana Fish Other Provider Dr. Francisco Pitts Attending Provider Dr. Francisco Pitts Other Provider Dr. Benjamin Morse Other Provider Dr. Janett Stallings Other Provider [phone] Dr. Barrie Berkowitz Other Provider Dr. Tia Marks Other Provider Dr. Isela Chris Other Provider Unavailable Dr. Sulaiman Hardin Other Provider [phone] Mesfin Van Other Provider Dr. Patricio [...] Other Provider Dr. Javier Alfredo Other Provider [phone] Shelly Fernandez Other Provider Dr. John Minor Other Provider Dr. Roman Saunders Other Provider Dr. Keven Joseph Other Provider [phone] Jes Dumont Other Provider [phone] Fernando Salcedo Other Provider Dr. Urbano Oquendo Other Provider [phone] Duane Reyna Other Provider Dr. Jono Sharp Other Provider Dr. Heidi Carmona Other Provider Unavailable MD Klaudia Mercado Other Provider Unavailable Dr. Shari Pastor Attending Provider Dr. Raad Hope Other Provider Dr. Raad Hope Attending Provider Dr. Flaco Choi Other Provider ENRRIQUE Conte-Gopal West Attending Provider JULES HAMILTON, DR DOLL R Primary Care Physician Dr. Lavon Vicente Primary Care Provider [phone] Dr. Estevan Aguila Emergency Provider [phone] Dr. Renzo De Paz Admit Provider Unavailabl [...] Other Provider Dr. Keven Joseph Other Provider [phone] Jes Dumont Other Provider Dr. Fernando Salcedo Other Provider Dr. Urbano Oquendo Other Provider Dr. Duane Reyna Other Provider Dr. Jono Sharp Other Provider Dr. Heidi Carmona Other Provider Unavailable MD Klaudia Mercado Other Provider Unavailable Dr. Shari Pastor Attending Provider Jayy, Dr. Shankar Other Provider Jayy, Dr. Shankar Attending Provider Dr. Flaco Choi Other Provider DOV Conte Attending Provider CAMILO GARCIA, LONI Herron Attending Dylan VICENTE MD, DR LAVON Kapadia Primary Care Unavailabl e CAMILO GARCIA, LONI Herron Attending Dylan VICENTE MD, DR LAVON Kapadia Primary Care Unavailabl e CAMILO [employer], LONI Herron Attending Dylan VICENTE MD, DR LAVON Kapadia Primary Care Unavailabl e CAMILO [employer], LONI Herron Attending Unav ailable PHYSICIAN, PATIENT UNSURE Primary Care Unavai urmila GARCIA, LONI Herron Attending Unav ailable PHYSICIAN, PATIENT UNSURE Primary Care Danie Vicente MD, Dr. Doll Primary Care Provider Navdeep HAMILTON, Dr. Sheikh Attending Provider Lyndon Hammond MD, Dr. Aquino Attending Provider Dr. Kenia Hammond MD Referring Provider Lavon Charles Attending Provider Unavailable Jules HAMILTON, Dr. Doll Primary Care Provider Dr. Kori Sethi MD Attending Provider Unavailbrett Vicente MD, Dr. Doll Primary Care Physician Dr. Kori Sethi MD Attending Physician Unavail Dr. Kenia Henning MD Attending Physician Dr. Kenia Hammond MD Referring Provider DR LAVON VICENTE MD Primary Care Physician Lavon Vicente Primary Care Unavailable Kori Larios Attending Unavailable Lavon Vicente Referring Unavailable Lavon Vicente Primary Care Unavailable Ana Childs Attending Unavailable Vicente, Lavon Primary Care Unavailable Basali, Ayman Referring Unavailable Basali, Ayman Attending Unavailable Vicente, Lavon Primary Care Unavailable [...] Attending Unavailable Vicente, Lavon Primary Care Unavailable Vicente OLS, Lavon Attending Unavailable Vicente, Lavon Primary Care Unavailable Vicente, Lavon Primary Care Unavailable Gudla OLS, Kori Attending Unavailable Vicente, Lavon Primary Care Unavailable Gudla OLS, Kori Attending Unavailable Vicente, Lavon Primary Care Unavailable Vicente OLS, Lavon Attending Unavailable Vicente, Lavon Primary Care Unavailable Gudla OLS, Kori Attending Unavailable Gudla OLS, Kori Attending Unavailable Vicente, Lavon Primary Care Unavailable Vicente, Lavon Primary Care Unavailable Basali, Ayman Referring Unavailable Basali, Ayman Attending Unavailable CAMILO GARCIA, LONI Herron Attending Unav andrew VICENTE MD, DR LAVON Kapadia Primary Care Unavailabl foreign VICENTE MD, DR LAVON Kapadia Primary Care Unavailabl e LONI CUEVAS Attending Unav ailable Allergies Allergy Classification Reported Allergen(s) Allergy Type Date of Onset Reaction(s) Facility (10 sources) Coconut extract; Translations: [Cocos nucifera (organism)] Drug Allergy RASH, CLOSES OFF AIRWAY [facility] (12 sources) Morphine; Translations: [morphine] Drug Allergy 05-15-20 15 Unknown [facility] (8 sources) Amoxicillin; Translations: [amoxicillin] Drug Allergy [facility] (8 sources) Penicillin; Translations: [penicillin] Drug Allergy [facility] (20 sources) apixaban; Translations: [APIXABAN] Drug Allergy 05-15-20 15 Unknown [facility] (20 sources) Coconut Oil Drug Allergy 09-13-19 cant breath [facility] (20 sources) Mometasone Drug Allergy 04-05-20 Unknown [facility] (20 sources) Nitrofurantoin; Translations: [NITROFURANTOIN] Drug Allergy 04-05-20 Unknown [facility] (20 sources) Penicillins; Translations: [Penicillins] Propensity to adverse reactions 09-13-19 NEEDS FOLLOW-UP [facility] (20 sources) rivaroxaban Drug Allergy 09-13-19 Rash [facility] (20 sources) Sulfonamides (Antibiotic); Translations: [SULFA (SULFONAMIDE ANTIBIOTICS)] Allergy to substance 04-05-20 Unknown [facility] (1 source) Mometasone; Translations: [MOMETASONE] Drug Allergy 04-05-20 [facility] (1 source) apixaban Drug Allergy 03-02-20 [facility] (1 source) Coconut Oil Drug Allergy 03-02-20 [facility] (1 source) Mometasone Drug Allergy 03-02-20 [facility] (1 source) Nitrofurantoin Drug Allergy 03-02-20 [facility] (1 source) rivaroxaban Drug Allergy 03-02-20 [facility] Medications Current Medications Medication Drug Class(es) Dates Sig (Normalized) Sig (Original) acetaminophen 120 mg rectal suppository (20 sources) Start: 08-04-2023 take 1 dose rectal route four times daily acetaminophen 120 mg rectal suppository Dose : 120 mg = 1 supp, Rectal, q4hr, PRN for pain, 650mg QID, 0 Refill(s) Start Date: 08/04/23 Status: Ordered Medication Dispense Status: Completed Total Allowed Fills: 1 Fills Dispensed: 0 Start: 04-22-2021 End: 06-05-2022 Acetaminophen 650 mg Supposi tory Discontinued 650 mg RC Q4H as needed for Pain April 22, 2021 1:00am June 05, 2022 11:25am Start: 04-03-2019 Tylenol 325 mg oral capsule Dose : 325 mg = 1 cap(s), Oral, q4h, PRN as needed for fever, # 20 cap(s), 0 Refill(s) Start Date: 04/03/19 Status: Ordered Medication Dispense Status: Completed Quantity: 20.0 Unit: cap(s) Total Allowed Fills: 1 Fills Dispensed: 0 Start: 03-01-2018 take 2 tablets by mo uth every four hours as needed for pain Acetaminophen 325 MG tablet Active 650 mg PO EVERY 4 HOURS NEEDED as needed for Pain or fever March 01, 2018 12:00am Complies with drug therapy Start: 03-01-2018 Start: 08-10-2014 End: 10-01-2014 take 2 tablets by mouth every six hours as needed for pain Acetaminophen (Tylenol) 325 MG tablet Discontinued 650 mg PO EVERY 6 HOURS NEEDED as needed for HEADACHE/ACHES/PAIN 30 0 August 10, 2014 1:00am October 01, 2014 3:29pm Start: 08-10-2014 End: 10-01-2014 Comment on above: Take 650 mg by mouth every 6 hours as needed. Every 4 hours as needed Acidophilus Extra Strength (8 sources) Start: 07-28-2021 take 1 dose by mouth once daily Acidophilus Extra Strength Oral, qDay, 0 Refill(s) Start Date: 07/28/21 Status: Ordered Medication Dispense Status: Completed Total Allowed Fills: 1 Fills Dispensed: 0 Start: 07-28-2021 Acidophilus Ex tra Strength Oral, qDay, 0 Refill(s) Start Date: 07/28/21 Status: Ordered Acidophilus-Pectin, [place] 25 million cell -100 mg Tablet (2 sources) Start: 07-08-2023 take 1 tablet by mouth twice daily Acidophilus-Pectin, [place] 25 million cell -100 mg Tablet Active 2 {tbl} PO TWICE A DAY 0 July 08, 2023 1:00am Artificial Tears ophthalmic solution (10 sources) Start: 04-03-2019 Artificial Tea rs ophthalmic solution Dose = 1 drop(s), Eyes, both, BID, PRN as needed for dry eyes, # 30 mL, 0 Refill(s) Start Date: 04/03/19 Status: Ordered Medication Dispense Status: Completed Quantity: 30.0 Unit: mL Total Allowed Fills: 1 Fills Dispensed: 0 Start: 04-03-2019 take 1 dose into the eye(s) twice daily as needed Artificial Tears ophthalmic solution Dose = 1 drop(s), Eyes, both, BID, PRN as needed for dry eyes, # 30 mL, 0 Refill(s) Start Date: 04/03/19 Status: Ordered baclofen 20 mg oral tablet (20 sources) gamma-Aminobutyric Acid-ergic Agonist Start: 02-28-2025 take 2 tablets by mouth four times daily Baclofen 20 mg tablet Active 40 mg PO 4 TIMES DAILY February 28, 2025 12:00am Complies with drug therapy Start: 04-03-2019 baclofen 20 mg oral tablet Dose : 40 mg = 2 tab(s), Oral, QID, 0 Refill(s) Start Date: 04/03/19 Status: Ordered Medication Dispense Status: Completed Total Allowed Fills: 1 Fills Dispensed: 0 Start: 08-16-2016 End: 02-28-2025 take 4 tablets by mouth every six hours Baclofen 10 MG tablet Discontinued 40 mg PO EVERY 6 HOURS August 16, 2016 10:43pm February 28, 2025 3:20pm SPASMS Start: 05-27-2016 End: 08-16-2016 take 2 tablets by mouth every six hours as needed for muscle spasms Baclofen 10 MG tablet Discontinued 20 mg PO EVERY 6 HOURS NEEDED as needed for BLADDER SPASMS 0 0 May 27, 2016 1:00am August 16, [...] Discontinued 20 mg PO 4 TIMES DAILY 30 0 August 10, 2014 9:55am October 18, 2014 [...] 27, 2014 5:21pm take 2 tablets by mo uth every six hours as needed baclofen (LIORESAL) 20 mg tablet Take 40 mg by mouth every 6 hours as needed. 0 Active Comment on above: Take 40 mg by mouth every 6 hours as needed. benzonatate 100 mg oral capsule (12 sources) Non-narcotic Antitussive Start: 07-02-19 take 1 capsule by mouth every six hours as needed Benzonatate 100 mg capsule Active 100 mg PO EVERY 6 HOURS NEEDED July 02, 2023 1:00am Complies with drug therapy bisacodyl 5 mg oral delayed release tablet (2 sources) Start: 04-03-20 bisacodyl 5 mg oral delayed release tablet Dose : 10 mg = 2 tab(s), Oral, qDay, PRN constipation, 0 Refill(s) Start Date: 04/03/19 Status: Ordered 168 hr buprenorphine 0.02 mg/hr transdermal system (20 sources) Partial Opioid Agonist Start: 08-04-19 apply 20 ug topically every week Buprenorphine 20 mcg/hour patch weekly Active 1 NMA TOPICAL EVERY WEEK February 28, 2025 12:00am Complies with drug therapy Start: 09-12-2022 End: 02-28-2025 apply 15 ug transdermal route every week Buprenorphine (Butrans) 15 mcg/hour patch weekly Discontinued 20 ug TD Q7D September 12, 2022 12:00am February 28, 2025 3:21pm pain Start: 09-12-2022 Start: 06-04-2022 apply 10 ug transder mal route every week Buprenorphine (Butrans) 10 mcg/hour Patch Weekly Active 1 PATCH TD Q7D June 04, 2022 12:00am Comment on above: Apply 1 Patch as dir ected one time a week. busPIRone hydrochloride 7.5 mg oral tablet (20 sources) Start: 02-28-2025 take 1 tablet by mouth once daily Buspirone 7.5 mg tablet Active 7.5 mg PO DAILY February 28, 2025 12:00am Complies with drug therapy Start: 07-02-2023 take 1 tablet by yuliet th at bedtime Buspirone 10 mg tablet Active 10 mg PO AT BEDTIME July 02, 2023 1:00am Complies with drug therapy Start: 06-23-2021 busPIRone 5 mg oral tablet 0 Refill(s) Start Date: 06/23/21 Status: Ordered Medication Dispense Status: Completed Total Allowed Fills: 1 Fills Dispensed: 0 Start: 04-22-2021 End: 07-02-2023 take 10 mg by mouth three times daily Buspirone 7.5 mg Tablet Discontinued 10 mg PO THREE TIMES A DAY April 22, 2021 1:00am July 03, 2023 12:18am anxiety Start: 04-22-2021 End: 07-02-2023 Start: 04-22-2021 take 7.5 mg by mouth twice daily Buspirone Active 7.5 MG PO TWICE A DAY April 22, 2021 12:00am Start: 02-26-2021 BUSPIRONE HYDR OCHLORIDE 7.5 MG TABS BUSPIRONE HYDROCHLORIDE 7.5 MG TABS, 0 Refill(s), 103 Start Date: 02/26/21 Status: Ordered Medication Dispense Status: Completed Total Allowed Fills: 1 Fills Dispensed: 0 Start: 02-26-2021 BUSPIRONE HYDR OCHLORIDE 7.5 MG [...] 0 Refill(s) Start Date: 04/03/19 Status: Ordered carbamide peroxide 65 mg/ml otic solution (2 sources) Start: 02-29-20 Carbamide Peroxide (Debrox) 6.5 % drops Active 1 NMA OTIC Q12H as needed for itching February 28, 2025 12:00am Complies with drug therapy cefdinir 300 mg oral capsule (3 sources) Cephalosporin Antibacterial Start: 06-05-20 take 300 mg by mouth twice daily Cefdinir Active 300 MG PO TWICE A DAY 10 June 05, 2022 12:00am cetirizine hydrochloride 10 mg oral capsule (20 sources) Histamine-1 Receptor Antagonist Start: 07-02-19 take 1 capsule by mouth once at bedtime Cetirizine (All Day Allergy (Cetirizine)) 10 mg capsule Active 10 mg PO AT BEDTIME July 02, 2023 1:00am allergies Complies with drug therapy Start: 09-12-2022 End: 02-28-2025 take 1 tablet by mouth once daily in the evening Cetirizine 10 mg Tablet Discontinued 10 mg PO EVERY EVENING September 12, 2022 12:00am February 28, 2025 3:22pm allergies Start: 04-30-2021 cetirizine 0 R efill(s) Start Date: 04/30/21 Status: Ordered take 1 capsule by mo [facility] once daily Cetirizine 10 mg cap Take 10 mg by mouth once daily. 0 Active Comment on above: Take 10 mg by mouth once daily. cholecalciferol 0.05 mg oral capsule (20 sources) Vitamin D Start: 08-08-19 take 1 capsule by mouth once daily Cholecalciferol (Vitamin D3) 2,000 UNIT capsule Active 2000 U PO DAILY August 08, 2019 1:00am SUPPLEMENT Complies with drug therapy Start: 08-08-2019 take 1 capsule by mo ut at lunch Cholecalciferol (Vitamin D3) 2,000 UNIT capsule Active 2000 U PO WITH LUNCH August 08, 2019 1:00am take 2 capsules by m outh once daily Cholecalciferol, Vitamin D3, 1,000 unit cap Take 2,000 Units by mouth once daily. 0 Active Comment on above: Take 2,000 Units by mouth once daily. clotrimazole 10 mg/ml topical cream (3 sources) Azole Antifungal Start: 02-28-2025 Clotrimazole 1 % cream Active 1 NMA TOPICAL THREE TIMES A DAY February 28, 2025 12:00am Complies with drug therapy clotrimazole (LO TRIMIN, CLOTRIM) 1 % cream Apply to affected area twice daily. 0 Active Comment on above: Apply to affected ar ea twice daily. diphenhydrAMINE hydrochloride 25 mg oral tablet (20 sources) Histamine-1 Receptor Antagonist Start: 07-02-19 take 2 tablets by mouth every eight hours as needed Diphenhydramine Hcl (Allergy (Diphenhydramine)) 25 mg tablet Active 50 mg PO Q8H as needed for itching July 02, 2023 1:00am Complies with drug therapy Start: 06-03-2022 End: 06-05-2022 take 1 tablet [...] 0 Refill(s) Start Date: 02/26/21 Status: Ordered Medication Dispense Status: Completed Quantity: 20.0 Unit: cap(s) Total Allowed Fills: 1 Fills Dispensed: 0 Start: 10-11-2020 take 2 capsules by m outh twice daily Docusate Sodium (Colace) 100 mg Capsule Active 200 mg PO TWICE A DAY October 11, 2020 12:00am constipation Complies with drug therapy Start: 10-11-2020 Start: 08-10-2014 End: 10-01-2014 take 1 capsule by mouth twice daily Docusate Sodium (Dok) 100 MG capsule Discontinued 100 mg PO TWICE A DAY 30 0 August 10, 2014 1:00am October 01, 2014 3:29pm Start: 08-10-2014 End: 10-01-2014 Comment on above: Take 200 mg by mouth daily at bedtime. docusate sodium 50 mg / sennosides, [facility] 8.6 mg oral tablet (20 sources) Start: 02-28-2025 Sennosides-Docusate Sodium (Senna Plus) 8.6-50 mg tablet Active 1 NMA PO DAILY as needed for constipation February 28, 2025 12:00am Complies with drug therapy Start: 07-31-2014 End: 08-10-2014 Sennosides-Docusate Sodium ( Senna Plus Tablet) 1 EACH tablet Discontinued 2 NMA PO DAILY July 31, 2014 1:00am August 10, 2014 9:56am Start: 07-31-2014 End: 08-10-2014 doxycycline monohydrate 100 mg oral capsule (3 sources) Tetracycline-class Drug Start: 06-05-2022 take 100 mg by mouth twice daily Doxycycline Monohydrate Active 100 MG PO TWICE A DAY 6 June 05, 2022 12:00am DULoxetine 60 mg delayed release oral capsule (20 sources) Serotonin and Norepinephrine Reuptake Inhibitor Start: 08-21-2015 Duloxetine 60 MG capsule,delayed release(DR/EC) Active 90 mg PO AT BEDTIME August 21, 2015 1:00am depression Complies with drug therapy Start: 08-21-2015 DULoxetine 60 mg oral delayed release capsule Dose : 120 mg = 2 cap(s), Oral, qDay, 0 Refill(s) Start Date: 04/03/19 Status: Ordered Medication Dispense Status: Completed Total Allowed Fills: 1 Fills Dispensed: 0 Start: 08-21-2015 take 90 mg by mouth [...] bedtime ferrous gluconate 240 mg oral tablet (19 sources) Start: 1 ferrous gluconate 240 mg (27 mg elemental iron) oral tablet Dose : 240 mg = 1 tab(s), Oral, qDay, 0 Refill(s) Start Date: 07/28/21 Status: Ordered Medication Dispense Status: Completed Total Allowed Fills: 1 Fills Dispensed: 0 Fleet Enema 7 g-19 g rectal enema (10 sources) Start: 9 take 1 dose rectal route once as needed for constipation Fleet Enema 7 g-19 g rectal enema Dose = 1 EA, Rectal, Once, PRN for constipation, # 133 mL, 0 Refill(s) Start Date: 04/03/19 Status: Ordered Medication Dispense Status: Completed Quantity: 133.0 Unit: mL Total Allowed Fills: 1 Fills Dispensed: 0 Start: 04-03-2019 take 1 dose rectal r oute once as needed for constipation Fleet Enema 7 g-19 g rectal enema Dose = 1 EA, Rectal, Once, PRN for constipation, # 133 mL, 0 Refill(s) Start Date: 04/03/19 Status: Ordered Flonase 50 mcg/inh nasal spray (2 sources) Start: 02-26-2021 take 1 dose nasal route twice daily Flonase 50 mcg/inh nasal spray Dose = 1 spray(s), Nostril, each, BID, 0 Refill(s) Start Date: 02/26/21 Status: Ordered furosemide 20 mg oral tablet (20 sources) Loop Diuretic Start: 04-21-2021 Start: 04-03-2019 take 1 tablet by yuliet th at bedtime Furosemide 20 mg Tablet Active 20 mg PO AT BEDTIME April 21, 2021 1:00am edema Complies with drug therapy Start: 05-26-2018 Furosemide 40 MG tablet Active 20 mg PO WITH BREAKFAST May 26, 2018 1:00am edema Complies with drug therapy Start: 05-26-2018 take 1 tablet by yuliet th at breakfast Furosemide 40 MG tablet Active 40 mg PO WITH BREAKFAST May 26, 2018 1:00am Start: 10-01-2014 End: 10-18-2014 take 1 tablet by mouth once daily Furosemide 40 MG tablet Discontinued 40 mg PO DAILY 30 0 October 01, 2014 12:00am October 18, 2014 4:17pm Start: 03-22-2013 End: 08-10-2014 take 2 tablets by mouth once daily Furosemide 20 MG tablet Discontinued 40 mg PO DAILY March 22, 2013 12:00am August 10, 2014 9:56am Start: 03-22-2013 End: 08-10-2014 Comment on above: Take 40 mg by mouth once daily. Also takes 20 MG by mouth at lunch Inulin / Lactobacillus rhamnosus GG (2 sources) Start: 9 [facility] oral tablet, chewable Chewed, qDay, 0 Refill(s) Start Date: 04/03/19 Status: Ordered isosorbide mononitrate 20 mg oral tablet (20 sources) Nitrate Vasodilator Start: take 1 tablet by mouth at bedtime Isosorbide Mononitrate 20 mg tablet Active 20 mg PO AT BEDTIME February 28, 2025 12:00am Complies with drug therapy Start: 04-22-2021 End: 02-28-2025 take 1 tablet by mouth at bedtime, then take 1 tablet by mouth every twenty-four hours Isosorbide Mononitrate 30 mg Tablet Extended Release 24 Hr Discontinued 30 mg PO AT BEDTIME April 22, 2021 1:00am February 28, 2025 3:28pm angina Comment on above: Take 30 mg by mouth daily at bedtime. levothyroxine sodium 0.15 mg oral tablet (20 sources) l-Thyroxine Start: 02-28-2025 Levothyroxine 150 mcg tablet Active 150 ug PO CANO February 28, 2025 12:00am Complies with drug therapy Start: 04-03-2019 levothyroxine 75 mcg (0.075 mg) oral tablet Dose : 75 mcg = 1 tab(s), Oral, qDay, # 30 tab(s), 0 Refill(s) Start Date: 04/03/19 Status: Ordered Medication Dispense Status: Completed Quantity: 30.0 Unit: tab(s) Total Allowed Fills: 1 Fills Dispensed: 0 Start: 05-28-2015 Levothyroxine 75 MCG tablet Active 75 ug PO MOTUWETHFRSA May 28, 2015 1:00am hypothyroidism Complies with drug therapy Start: 03-22-2013 End: 10-01-2014 Levothyroxine 50 MCG tablet Discontinued 75 ug PO DAILY 30 0 August 10, 2014 9:55am October 01, 2014 3:29pm Start: 03-22-2013 End: 10-01-2014 Comment on above: Take 75 mcg by mouth once daily. linaclotide 0.145 mg oral capsule (20 sources) Guanylate Cyclase-C Agonist Start: 08-04-2023 Linzess 145 mcg oral capsule 0 Refill(s) Start Date: 08/04/23 Status: Ordered Medication Dispense Status: Completed Total Allowed Fills: 1 Fills Dispensed: 0 Start: 07-02-2023 take 1 capsule by [facility] once daily Linaclotide (Linzess) 145 mcg capsule Active 145 ug PO DAILY July 02, 2023 1:00am constipation Complies with drug therapy Start: 04-03-2019 Linzess 290 mc g oral capsule Dose : 290 mcg = 1 cap(s), Oral, qDay, # 30 cap(s), 0 Refill(s) Start Date: 04/03/19 Status: Ordered Start: 07-31-2014 End: 10-01-2014 take 1 capsule by mouth once daily Linaclotide (Linzess) 290 MCG capsule Discontinued 290 ug PO DAILY 30 0 August 10, 2014 9:55am October 01, 2014 [...] not exceed 8 mg per 24 hrs Complies with drug therapy Start: 06-03-2022 Start: 02-26-2021 loperamide 2 m g oral tablet Dose : 2 mg = 1 tab(s), Oral, q4h, PRN as needed for loose stool, # 24 tab(s), 0 Refill(s) Start Date: 02/26/21 Status: Ordered magnesium hydroxide 80 mg/ml oral suspension (15 sources) Start: 06-03-2022 take 1 mL by mouth once daily as needed for constipation Magnesium Hydroxide (Milk Of Magnesia) 400 mg/5 mL Suspension Active 30 mL PO DAILY as needed for Constipation June 03, 2022 1:00am Complies with drug therapy Start: 06-03-2022 take 1 mL by mouth [...] ML PO DAILY June 03, 2022 12:00am Comment on above: Take 30 mL by mouth once daily as needed. melatonin 5 mg oral tablet (20 sources) Start: 06-03-2022 take 2 tablets by mouth at bedtime as needed Melatonin 5 mg Tablet Active 10 mg PO AT BEDTIME as needed for insomnia June 03, 2022 1:00am Complies with drug therapy Start: 02-26-2021 melatonin 5 mg oral tablet Dose : 5 mg = 1 tab(s), Oral, qHS, PRN as needed for insomnia, # 60 tab(s), 0 Refill(s) Start Date: 02/26/21 Status: Ordered Medication Dispense Status: Completed Quantity: 60.0 Unit: tab(s) Total Allowed Fills: 1 Fills Dispensed: 0 Comment on above: Take 5 mg by mouth d aily at bedtime. Milk of Magnesia 8% oral suspension (10 sources) Start: 04-03-2019 Milk of Magnesia 8% oral suspension 2.4 gram(s) Dose = 30 mL, Oral, qHS, PRN for constipation, 0 Refill(s) Start Date: 04/03/19 Status: Ordered Medication Dispense Status: Completed Total Allowed Fills: 1 Fills Dispensed: 0 Start: 04-03-2019 Milk of Magnes ia 8% oral suspension 2.4 gram(s) Dose = 30 mL, Oral, qHS, PRN for constipation, 0 Refill(s) Start Date: 04/03/19 Status: Ordered Nasacort Allergy 24HR 55 mcg/inh nasal spray (1 source) Start: 07-28-2021 take 1 dose nasal route once daily Nasacort Allergy 24HR 55 mcg/inh nasal spray Dose = 1 spray(s), Nostril, each, qDay, # 16.9 mL, 0 Refill(s) Start Date: 07/28/21 Status: Ordered nystatin 100,000 units/g topical cream (3 sources) Start: 04-03-2019 nystatin 100,0 00 units/g topical cream Apply 1 magdalena, Topical, BID, # 15 gram(s), 0 Refill(s), Cream Start Date: 04/03/19 Status: Ordered omeprazole 20 mg delayed release oral capsule (20 sources) Proton Pump Inhibitor Start: 03-01-2018 take 1 capsule by mouth once daily Omeprazole 20 MG capsule,delayed release(DR/EC) Active 20 mg PO DAILY March 01, 2018 12:00am GERD Complies with drug therapy Comment on above: Take 20 mg by mouth once daily. ondansetron 4 mg oral tablet (20 sources) Serotonin-3 Receptor Antagonist Start: 04-03-2019 take 1 tablet by mouth every four hours as needed for nausea Ondansetron Hcl 4 mg Tablet Active 4 mg PO Q4H as needed for Nausea June 03, 2022 1:00am Complies with drug therapy Start: 08-27-2018 End: 10-13-2018 take 1 tablet [...] NEEDED as needed for nausea and emesis 20 0 February 01, 2014 12:00am April 24, 2014 5:09pm oxybutynin chloride 5 mg oral tablet (20 sources) Cholinergic Muscarinic Antagonist Start: 03-01-2024 oxybutynin 5 mg oral tablet Dose : 10 mg = 2 tab(s), Oral, TID, 0 Refill(s) Start Date: 03/01/24 Status: Ordered Medication Dispense Status: Completed Total Allowed Fills: 1 Fills Dispensed: 0 Start: 06-23-2021 oxybutynin 15 mg/24 hr oral tablet, extended release 0 Refill(s) Start Date: 06/23/21 Status: Ordered Start: 04-22-2021 End: 02-28-2025 take 1 tablet by mouth once daily Oxybutynin Chloride 10 mg Tablet Extended Release 24hr Discontinued 30 mg PO DAILY April 22, 2021 1:00am February 28, 2025 3:31pm Bladder spasms Start: 04-22-2021 take 30 mg by mouth [...] 0 Refill(s) Start Date: 03/01/24 Status: Ordered Medication Dispense Status: Completed Total Allowed Fills: 1 Fills Dispensed: 0 Start: 07-02-2023 take 1 tablet by yuliet at bedtime Paroxetine Hcl 10 mg tablet Active 10 mg PO AT BEDTIME July 02, 2023 1:00am Complies with drug therapy Start: 07-02-2023 take 2 tablets by mo [facility] at bedtime Paroxetine Hcl 10 mg tablet Active 20 mg PO AT BEDTIME July 02, 2023 1:00am Start: 07-02-2023 take 20 mg by mouth at bedtime Paroxetine Hcl Active 20 MG PO AT BEDTIME July 02, 2023 12:00am Start: 06-03-2022 End: 11-16-2022 take 2 tablets by mouth at dinner Paroxetine Hcl 10 mg Tablet Discontinued 20 mg PO WITH DINNER June 03, 2022 1:00am November 16, 2022 2:05pm anxiety On Hold: Resume on 11/23/22. Start: 06-03-2022 End: 11-16-2022 Start: 06-03-2022 End: 11-16-2022 take 20 mg by mouth at dinner Paroxetine Hcl Discontin ued 20 MG PO WITH DINNER June 03, 2022 12:00am November 16, 2022 1:05pm Comment on above: Take 10 mg by mouth daily at bedtime. phenazopyridine hydrochloride 100 mg oral tablet (20 sources) Start: 4 take 1 tablet by mouth three times daily as needed Pyridium 100 mg oral tablet See Instructions, PRN as needed for urinary discomfort, 1 tab(s) Oral TID 3 day(s) PRN for catheter changes, # 3 cap(s), 0 Refill(s), Chronic suprapubic catheter Start Date: 05/17/24 Status: Ordered Medication Dispense Status: Completed Quantity: 3.0 Unit: cap(s) Total Allowed Fills: 1 Fills Dispensed: 0 Indications: Other cystostomy status; Start: 04-03-2019 End: 02-28-2025 take 1 tablet by mouth three times daily as needed for muscle spasms Phenazopyridine (Pyridium) 200 mg Tablet Discontinued 200 mg PO THREE TIMES A DAY as needed for Bladder Spasms May 27, 2021 1:00am February 28, 2025 4:00pm Comment on above: Take 200 mg by mouth three times daily as needed. polyethylene glycol 3350 39575 mg powder for oral solution (20 sources) Osmotic Laxative Start: 0 take 17 g by mouth at bedtime Polyethylene Glycol 3350 17 GM packet Active 17 g PO AT BEDTIME August 08, 2019 1:00am constipation Complies with drug therapy Start: 03-22-2013 End: 10-01-2014 take 17 g by mouth once daily as needed for constipation Polyethylene Glycol 3350 17 GM Packet Discontinued 17 g PO DAILY as needed for Constipation 30 0 August 10, 2014 9:55am October 01, 2014 [...] extended release oral capsule (20 sources) Start: 02-28-2025 take 1 capsule by mouth at bedtime Potassium Chloride 10 mEq capsule, extended release Active 10 meq PO AT BEDTIME February 28, 2025 12:00am Complies with drug therapy Start: 07-08-2023 End: 02-28-2025 take 2 capsules by mouth once daily Potassium Chloride 10 mEq Capsule, Extended Release Active 20 meq PO DAILY February 28, 2025 12:00am hypokalemia Complies with drug therapy Start: 04-22-2021 End: 07-08-2023 take 1 capsule by mouth at lunch Potassium Chloride 10 mEq Capsule, Extended Release Discontinued 10 meq PO WITH LUNCH April 22, 2021 1:00am July 08, 2023 1:16pm hypokalemia Start: 02-26-2021 Potassium Chlo ride (Isw-Hhpi-Sxk M10) 10 mEq oral tablet, extended release 0 Refill(s) Start Date: 02/26/21 Status: Ordered Medication Dispense Status: Completed Total Allowed Fills: 1 Fills Dispensed: 0 Start: 02-26-2021 Potassium Chlo ride (Oxi-Aoud-Xsy M10) 10 mEq oral tablet, extended release [...] A DAY August 16, 2018 1:00am sennosides, prison 8.6 mg oral tablet (20 sources) Start: 04-03-2019 senna 8.6 mg o ral tablet Dose : 8.6 mg = 1 tab(s), Oral, BID, PRN for constipation, 0 Refill(s) Start Date: 04/03/19 Status: Ordered Medication Dispense Status: Completed Total Allowed Fills: 1 Fills Dispensed: 0 Start: 08-16-2018 End: 02-28-2025 take 2 tablets by mouth twice daily Sennosides 8.6 MG tablet Discontinued 17.2 mg PO TWICE A DAY August 16, 2018 1:00am February 28, 2025 3:33pm constipation Start: 08-16-2018 take 17.2 mg by mout [...] for Gastric Reflux June 03, 2022 1:00am Complies with drug therapy Start: 04-03-2019 simethicone 80 mg oral tablet Dose : 80 mg = 1 tab(s), Chewed, QID, PRN for gas, # 60 tab(s), 0 Refill(s) Start Date: 04/03/19 Status: Ordered Medication Dispense Status: Completed Quantity: 60.0 Unit: tab(s) Total Allowed Fills: 1 Fills Dispensed: 0 Comment on above: Take 80 mg by mouth once daily as needed. traMADol hydrochloride 50 mg oral tablet (5 sources) Opioid Agonist Start: take 1 tablet by mouth three times daily Tramadol 50 mg tablet Active 50 mg PO THREE TIMES A DAY February 28, 2025 12:00am Complies with drug therapy Trazodone (19 sources) Serotonin Reuptake Inhibitor Start: traZODone Oral, 0 Refill(s) Start Date: 08/04/23 Status: Ordered Medication Dispense Status: Completed Total Allowed Fills: 1 Fills Dispensed: 0 Start: 08-04-2023 traZODone Oral , 0 Refill(s) Start Date: 08/04/23 Status: Ordered Start: 07-02-2023 End: 02-28-2025 take 1 tablet by mouth three times daily Trazodone 50 mg tablet Discontinued 50 mg PO THREE TIMES A DAY July 02, 2023 1:00am February 28, 2025 4:00pm Start: 04-03-2019 traZODone 100 mg oral tablet Dose : 100 mg = 1 tab(s), Oral, qHS, # 60 tab(s), 0 Refill(s) Start Date: 04/03/19 Status: Ordered triamcinolone acetonide 0.055 mg/actuat metered dose nasal spray (7 sources) Corticosteroid Start: 07-28-2021 take 1 dose nasal route once daily Nasacort Allergy 24HR 55 mcg/inh nasal spray Dose = 1 spray(s), Nostril, each, qDay, # 16.9 mL, 0 Refill(s) Start Date: 07/28/21 Status: Ordered Medication Dispense Status: Completed Quantity: 16.9 Unit: mL Total Allowed Fills: 1 Fills Dispensed: 0 Vitamin D with Minerals oral tablet, chewable (2 sources) Start: 04-03-2019 take 1 tablet by mouth once daily Vitamin D with Minerals oral tablet, chewable Dose = 1 tab(s), Chewed, qDay, # 90 tab(s), 0 Refill(s) Start Date: 04/03/19 Status: Ordered Vitamin D3 (10 sources) Start: 02-26-2021 Vitamin D3 Dos e : 2,000 unit(s) = 1 tab(s), Oral, Daily, # 60 tab(s), 0 Refill(s) Start Date: 02/26/21 Status: Ordered Medication Dispense Status: Completed Quantity: 60.0 Unit: tab(s) Total Allowed Fills: 1 Fills Dispensed: 0 Start: 02-26-2021 Vitamin D3 Dos e : [...] Sig (Original) albuterol 0.21 mg/ml inhalation solution (20 sources) beta2-Adrenergic Agonist Start: 11-14-2022 End: 11-16-2022 [...] MG tablet Discontinued 875 mg PO Q12H 20 April 27, 2014 1:00am April 27, 2014 6:21pm one po bid with food Yitfq-Getl-Lprby-Angel ag-Mv-Min (Darío (With Collagen)) 1 PACKET Packet (20 sources) Start: End: take 1 dose by mouth twice daily at mealtime Ujrnd-Hwak-Eyenc-Col lag-Mv-Min (Darío (With Collagen)) 1 PACKET Packet Discontinued 1 PACKET PO TWICE DAILY WITH MEALS September 20, 2014 3:12pm October 01, 2014 3:29pm Start: 09-20-2014 End: 10-01-2014 take 1 dose by mouth twice daily at mealtime Aabxe-Auri-Djxch-Pnsjnq-Hn-Aoy (Darío (W ith Collagen)) 1 PACKET Packet Discontinued 1 NMA PO TWICE DAILY WITH MEALS September 20, 2014 12:00am October 01, 2014 3:29pm Start: 09-20-2014 End: 10-01-2014 take 1 dose by mouth twice daily at mealtime Gxjoh-Hofu-Gbxnq-Ebxloc-Zp-Msd (Darío (W ith Collagen)) 1 PACKET Packet Discontinued 1 NMA PO TWICE DAILY WITH MEALS September 20, 2014 12:00am October 01, 2014 3:29pm Start: 09-20-2014 End: 10-01-2014 take 1 dose by mouth twice daily at mealtime Tnvxv-Ovia-Qrqls-Qfpydv-Mc-Dyd (Darío (W ith Collagen)) 1 PACKET Packet Discontinued 1 PACKET PO TWICE DAILY WITH MEALS September 19, 2014 11:00pm October 01, 2014 2:29pm Start: 09-20-2014 End: 10-01-2014 take 1 dose by mouth twice daily at mealtime Rzoyy-Pqxj-Zputo-Rqddym-Dy-Azj (Darío (W ith Collagen)) 1 PACKET Packet Discontinued 1 PACKET PO TWICE DAILY WITH MEALS September 20, 2014 12:00am October 01, 2014 3:29pm ascorbic acid 500 mg oral tablet (20 sources) Vitamin C Start: 05-03-2014 End: 10-01-2014 take 2 tablets by mouth once daily Ascorbic Acid (Vitamin C) (Vitamin C) 500 MG tablet Discontinued 1000 mg PO DAILY 1 August 10, 2014 9:55am October 01, 2014 3:29pm take 1 tablet by mouth once katya y Ascorbic Acid 1,000 mg tablet Take 1,000 mg by mouth once daily. 0 Active Ascorbic Acid 50 0 mg wafr Take by mouth twice daily. 0 Active Comment on above: Take by mouth twice daily. Take 1,000 mg by yuliet once daily. bisacodyl 10 mg rectal suppository (20 sources) Stimulant Laxative Start: 04-03-2019 Bisac-Evac 10 mg rectal suppository Dose : 10 mg = 1 supp, Rectal, Daily, PRN for constipation, # 10 supp, 0 Refill(s) Start Date: 04/03/19 Status: Ordered Start: 03-01-2018 Bisacodyl 10 M G suppository Active 10 mg NC AT BEDTIME as needed for Constipation March 01, 2018 12:00am Complies with drug therapy Start: 03-01-2018 take 10 mg rectal ro [place] every twenty-four hours as needed BISACODYL RECTAL 10 mg by RECTAL route at bedtime as needed. 0 Active Comment on above: 10 mg by RECTAL rout e at bedtime as needed. cefepime 1000 mg injection (20 sources) Cephalosporin Antibacterial Start: 09-21-19 End: [...] September 20, 2014 3:17pm Start: 08-10-2014 End: 10-01-2014 Cefepime 1 GM/10 ML Vial Discontinued 1 g IV EVERY 8 HOURS 126 0 September 20, 2014 3:17pm October 01, 2014 [...] 06, 2022 12:00am November 16, 2022 12:36pm Recurrent UTI Start: 09-12-2022 End: 09-14-2022 take 1 capsule [...] Quinolone Antimicrobial Start: 11-06-2022 End: 11-16-2022 take [id number] tablet by mouth twice daily Ciprofloxacin Hcl 500 mg tablet Discontinued 500 mg PO TWICE A DAY November 06, 2022 12:00am November 16, 2022 12:36pm for 10 days 11/06-/12/04 Start: 11-06-2022 End: 11-16-2022 Start: 05-27-2021 take 500 mg by mouth twice daily Ciprofloxacin Hcl Active 500 MG PO TWICE A DAY May 27, 2021 10:03pm Start: 03-25-2013 End: 04-21-2013 take 1 tablet by mouth twice daily Ciprofloxacin Hcl 500 MG tablet Discontinued 500 mg PO TWICE A DAY 7 0 March 25, 2013 12:00am April 21, 2013 11:42pm Start: 03-25-2013 End: 04-21-2013 0.3 ml enoxaparin sodium 100 mg/ml prefilled syringe (20 sources) Low Molecular Weight Heparin Start: 05-03-2014 End: 05-08-2014 Enoxaparin 30 MG/0.3 ML syringe Discontinued 30 mg SC DAILY@0600 1 0 May 03, 2014 1:00am May 08, 2014 1:54pm Start: 05-03-2014 End: 05-08-2014 fluconazole 100 mg oral tablet (20 sources) Azole Antifungal Start: 07-31-2014 End: 10-01-2014 take 1 tablet by mouth once daily Fluconazole 100 MG tablet Discontinued 100 mg PO DAILY 30 0 August 10, 2014 9:55am October 01, 2014 3:29pm fosfomycin 3000 mg powder for oral solution (12 sources) Start: 07-02-2023 End: 07-06-2023 take 3 g by mouth once for urinary tract infection Fosfomycin Tromethamine 3 gram packet Discontinued 3 g PO ONE TIME July 02, 2023 1:00am July 06, 2023 10:58am one time only for uti Start: 07-02-2023 End: 07-06-2023 gabapentin 600 mg oral tablet (20 sources) Anti-epileptic Agent Start: 07-03-2024 End: 02-28-2025 take 2 tablets by mouth at bedtime Gabapentin (Neurontin) 600 mg tablet Discontinued 1200 mg PO AT BEDTIME July 03, 2024 1:00am February 28, 2025 3:28pm Start: 04-22-2021 take 2 tablets by mo uth three times daily Gabapentin 800 mg Tablet Active 1600 mg PO THREE TIMES A DAY April 22, 2021 1:00am NEUROPATHY Complies with drug therapy Start: 04-22-2021 take 2 tablets by mo uth twice daily Gabapentin 800 mg Tablet Active 1600 mg PO TWICE A DAY April 22, 2021 1:00am Start: 04-22-2021 Start: 04-03-2019 gabapentin 800 mg oral tablet Dose : 1,600 mg = 2 tab(s), Oral, TID, 0 Refill(s) Start Date: 04/03/19 Status: Ordered Medication Dispense Status: Completed Total Allowed Fills: 1 Fills Dispensed: 0 Start: 05-27-2016 End: 08-16-2016 take 2 capsules by mouth three times daily at mealtime Gabapentin 400 MG capsule Discontinued 800 mg PO 3 TIMES DAILY WITH MEALS 0 May 27, 2016 1:00am August 16, [...] MG tablet Discontinued 1600 mg PO Q8H 30 0 August 10, 2014 9:55am October 01, 2014 3:29pm Start: 07-31-2014 End: 10-01-2014 Start: 07-31-2014 End: 10-01-2014 take 1600 mg by mouth every eight hours Gabapentin Discontinued 1600 MG PO Q8H 30 August 10, 2014 8:55am October 01, 2014 [...] mouth . 2 tablets every 8 hours 12 hr guaiFENesin 600 mg extended release [...] 0 Refill(s) Start Date: 02/26/21 Status: Ordered Medication Dispense Status: Completed Quantity: 20.0 Unit: tab(s) Total Allowed Fills: 1 Fills Dispensed: 0 Start: 02-26-2021 take 1 tablet by yuliet [...] 2 mg PO TWICE A DAY 60 0 May 08, 2014 1:56pm May 24, 2014 3:09pm Start: 05-03-2014 End: 06-05-2014 Start: 04-27-2014 End: 05-03-2014 take 1 tablet by mouth every eight hours as needed for pain Hydromorphone (Dilaudid) 4 MG tablet Discontinued 4 mg PO EVERY 8 HOURS NEEDED as needed for Pain 1 0 April 27, 2014 6:22pm May 03, 2014 4:02pm Start: 04-27-2014 End: 05-03-2014 Start: 02-01-2014 End: 04-27-2014 take 3 tablets by mouth every four hours as needed for pain Hydromorphone 2 MG tablet Discontinued 6 mg PO EVERY 4 HOURS NEEDED as needed for Pain 60 0 February 01, 2014 12:00am April 27, 2014 [...] Take by mouth once d aily. lactobacillus acidophilus [id number] unt / pectin 100 mg oral tablet (12 sources) Start: End: take 1 tablet by mouth twice daily Acidophilus-Pectin, [place] 25 million cell -100 mg Tablet Discontinued 2 {tbl} PO TWICE A DAY 0 0 July 08, 2023 1:00am February 28, 2025 3:19pm Start: 04-22-2021 take 1 capsule by [facility] once daily Acidophilus-Pectin, [place] (Acidophilus Probiotic) 100 million cell-10 mg Capsule Active 1 CAP PO DAILY April 22, 2021 8:50pm lactobacillus rhamnosus gg [id number] unt oral capsule (1 source) take 1 capsule by mouth once daily lactobacillus rhamnosus (CULTURELLE) 10 billion cell capsule Take 1 capsule by mouth once daily. 0 Active Comment on above: Take 1 capsule by [facility] once daily. levoFLOXacin 500 mg oral tablet (20 sources) Quinolone Antimicrobial Start: 11-10-19 End: 11-17-19 take 1 tablet by mouth once daily Levofloxacin 500 mg tablet Discontinued 500 mg PO DAILY 7 0 November 09, 2022 12:00am November 16, 2022 12:40pm lidocaine 0.05 mg/mg medicated patch (20 sources) Antiarrhythmic, Amide Local Anesthetic Start: 03-22-20 13 End: 04-24-20 14 Lidocaine 1 PATCH patch Discontinued 1 NMA TOPICAL DAILY 30 0 February 01, 2014 9:45am April 24, 2014 5:10pm Start: 03-22-2013 End: 04-24-2014 Start: 03-22-2013 End: 04-24-2014 apply 1 dose topically once daily Lidocaine Discontinued 1 PATCH TOPICAL DAILY February 01, 2014 8:45am April 24, 2014 4:10pm linezolid 600 mg oral tablet (19 sources) Oxazolidinone Antibacterial Start: 11-16-2022 End: 07-06-2023 take 1 tablet by mouth twice daily Linezolid 600 mg Tablet Discontinued 600 mg PO TWICE A DAY 14 7 0 November 16, 2022 12:00am July 06, 2023 10:58am menthol 0.0044 mg/mg / zinc oxide 0.206 mg/mg topical ointment (4 sources) Start: 07-08-2023 End: 02-28-2025 Menthol-Zinc Oxide (Calmoseptine) 0.44-20.6 % Ointment Discontinued 1 NMA TOPICAL THREE TIMES A DAY 0 0 July 08, 2023 1:00am February 28, 2025 3:31pm Please contact the information source for Protocol details. Start: 07-08-2023 Menthol-Zinc O xide (Calmoseptine) 0.44-20.6 % Ointment Active 1 NMA TOPICAL THREE TIMES A DAY 0 July 08, 2023 1:00am Please contact the information source for Protocol details. methadone hydrochloride 10 mg oral tablet (20 [...] 10 mg PO EVERY 6 HOURS 60 0 September 20, 2014 3:17pm October 01, 2014 3:29pm Start: 04-27-2014 End: 05-03-2014 take 1 tablet by mouth three times daily Methadone 5 MG tablet Discontinued 5 mg PO THREE TIMES A DAY 1 0 April 27, 2014 1:00am May 03, 2014 [...] GM tablet Discontinued 0.5 g PO DAILY 1 0 May 03, 2014 1:00am August 10, 2014 9:56am Start: 05-03-2014 End: 08-10-2014 24 hr mirabegron 25 mg extended release oral tablet (20 sources) beta3-Adrenergic Agonist Start: 04-21-2023 End: 02-28-2025 take 1 tablet by mouth every twenty-four hours at lunch Mirabegron (Myrbetriq) 25 mg tablet extended release 24 hr Discontinued 25 mg PO WITH LUNCH July 02, 2023 1:00am February 28, 2025 3:31pm take 25 mg by mouth once daily m irabegron (MYRBETRIQ) 25 mg Tb24 Take 25 mg by mouth once daily. 0 Active Comment on above: Take 25 mg by mouth once daily. mirtazapine 30 mg oral tablet (20 sources) Start: 06-03-2022 End: 02-28-2025 Mirtazapine 30 mg Tablet Discontinued 15 mg PO AT BEDTIME June 03, 2022 1:00am February 28, 2025 3:31pm insomnia Start: 06-03-2022 Start: 06-03-2022 take 15 mg by mouth at bedtime Mirtazapine Active 15 MG PO AT BEDTIME June 03, 2022 12:00am Comment on above: Take 30 mg by mouth daily at bedtime. mometasone furoate 1 mg/ml topical cream (20 sources) Corticosteroid Start: 03-22-2013 End: 03-22-2013 Mometasone (Elocon) 45 GM Cream..G. Discontinued 45 g TP March 22, 2013 12:00am March 22, 2013 10:06pm Start: 03-22-2013 End: 03-22-2013 mupirocin 0.02 mg/mg topical ointment (20 sources) RNA Synthetase Inhibitor Antibacterial Start: 10-14-2018 End: 11-03-2018 Mupirocin 1 APPLIC ointment Discontinued 1 NMA TOPICAL THREE TIMES A DAY October 14, 2018 12:00am November 02, 2018 [...] Disc ontinued 1 NMA TOPICAL DAILY 2 0 October 01, 2014 12:00am October 18, 2014 3:27pm Start: 10-01-2014 End: 10-18-2014 Start: 10-01-2014 End: 10-18-2014 Mupirocin Discontinued 1 MAGDALENA LIC TOPICAL DAILY 2 September 30, 2014 11:00pm October 18, 2014 [...] 10, 2013 12:00am April 24, 2014 5:10pm nystatin 100 unt/mg topical powder (20 sources) Polyene Antifungal Start: 11-16-2022 End: 02-28-2025 Nystatin (Nyamyc) 100,000 unit/gram Powder Discontinued 1 NMA TOPICAL TWICE A DAY 15 0 November 16, 2022 12:00am February 28, 2025 3:31pm Apply to pannus Please contact the information source for Protocol details. Start: 11-16-2022 Start: 11-16-2022 Nystatin (Nyam yc) 100,000 unit/gram Powder Active 1 APPLIC TOPICAL TWICE A DAY November 15, 2022 11:00pm Apply to pannus Start: 04-03-2019 apply 1 dose topical ly twice daily nystatin 100,000 units/g topical cream Apply 1 magdalena, Topical, BID, # 15 gram(s), 0 Refill(s), Cream Start Date: 04/03/19 Status: Ordered Medication Dispense Status: Completed Quantity: 15.0 Unit: g Total Allowed Fills: 1 Fills Dispensed: 0 Start: 08-21-2015 End: 10-13-2018 Nystatin 60 GM powder Discon tinued 1 APPLICATIO topical TWICE A DAY as needed for skin irritation August 21, 2015 1:00am October 13, 2018 7:46am Start: 08-21-2015 End: 10-13-2018 Start: 08-21-2015 End: 10-13-2018 Nystatin Discontinued 1 APPL ICATIO topical TWICE A DAY August 21, 2015 12:00am October 13, 2018 6:46am Start: 03-22-2013 End: 03-22-2013 [facility] [place] Discontinued THREE TI MES A DAY March 22, 2013 6:34pm March 22, 2013 10:09pm Start: 03-22-2013 End: 03-22-2013 [facility] [place] Discontinued THREE TI MES A DAY March 21, 2013 11:00pm March 22, 2013 9:09pm Start: 03-22-2013 End: 03-22-2013 [facility] [place] [facility] Discontinued THREE TI MES A DAY March 22, 2013 12:00am March 22, 2013 10:09pm nystatin (MYCOST ATIN) powder Apply to affected area four times daily. 0 Active Comment on above: Apply to affected ar ea four times daily. oxyCODONE hydrochloride 10 mg oral tablet (20 sources) Opioid Agonist Start: 07-28-2021 OxyContin 10 mg oral tablet, extended release Dose : 10 [...] HOURS NEEDED as needed for Severe Pain (-03/23) 30 7 0 October 13, 2018 12:00am October 19, 2018 12:00am October 20, 2018 12:07am Postoperative pain Other acute postprocedural pain Start: 10-13-2018 End: 10-20-2018 Start: 06-05-2014 End: [...] by mouth twice daily for 30 days. piperacillin 3000 mg / tazobactam 375 mg injection (20 sources) Penicillin-class Antibacterial, beta Lactamase Inhibitor Start: 07-08-2023 End: 02-28-2025 Piperacillin-Tazobactam- Dextrs (Zosyn In Dextrose (Iso-Osm)) 3.375 gram/50 mL piggyback Discontinued 3.375 g IV Q8H 7 0 July 08, 2023 1:00am February 28, 2025 3:35pm dx: pseudomonas infection Start: 05-03-2014 End: 05-08-2014 take 3.375 g intravenously every six hours Piperacillin-Tazobactam Discontinued 3.375 GM IV EVERY 6 HOURS May 03, 2014 4:02pm May 08, 2014 1:55pm Start: 05-03-2014 End: 05-08-2014 Piperacillin-Tazobactam 3.37 5 GM/16.875 ML Vial Discontinued 3.375 g IV EVERY 6 HOURS 1 0 May 03, 2014 1:00am May 08, 2014 [...] May 08, 2014 1:55pm polyethylene glycol 3350 044150 mg / potassium chloride 2970 mg / sodium bicarbonate 6740 mg / sodium chloride 5860 mg / sodium sulfate 39115 mg powder for oral solution (1 source) Osmotic Laxative Start: 04-05-2019 peg 3350-Electrolytes (GOLYTELY) 236-22.74-6.74 -5.86 gram suspension [...] mg oral tablet (20 sources) Phenothiazine Start: 10-01-2014 End: 10-18-2014 take 1 tablet by mouth every four hours as needed for nausea Promethazine 25 MG tablet Discontinued 25 mg PO EVERY 4 HOURS NEEDED as needed for NAUSEA/VOMITING 30 0 October 01, 2014 12:00am October 18, 2014 3:25pm Start: 08-10-2014 End: 09-25-2014 take 1 tablet by mouth four times daily as needed for nausea Promethazine 25 MG tablet Discontinued 25 mg PO 4 TIMES DAILY NEEDED as needed for NAUSEA/VOMITING 30 0 August 10, 2014 9:39am September 25, 2014 [...] 2013 12:00am March 22, 2013 9:56pm sodium phosphate,mono-di basic (FLEET ENEMA RECTAL) (1 source) sodium phosphate,mono-di basic (FLEET ENEMA RECTAL) by RECTAL route as needed. 0 Active Comment on above: by RECTAL route as n eeded. trimethoprim 100 mg oral tablet (19 sources) Dihydrofolate Reductase Inhibitor Antibacterial Start: 08-16-2018 trimethoprim 100 mg oral tablet Dose : 100 mg = 1 tab(s), Oral, Daily, 0 Refill(s), 100.5 Start Date: 07/28/21 Status: Ordered Medication Dispense Status: Completed Total Allowed Fills: 1 Fills Dispensed: 0 vancomycin 50 mg/ml injectable solution (20 sources) Glycopeptide Antibacterial Start: 10-01-2014 End: 10-18-2014 take 1500 mg intravenously every twelve hours Vancomycin 1,000 MG/20 ML Vial Discontinued 1500 mg IV Q12H October 01, 2014 12:00am October 18, 2014 3:24pm enterococcus wound infect enteroccus deep decubital infection vanc trough with [...] MG tablet Discontinued 7.5 mg PO DAILY 20 0 April 24, 2013 1:00am May 12, 2013 4:39pm Start: 04-22-2013 End: 04-24-2013 take 1 tablet by mouth once daily Warfarin (Jantoven) 5 MG tablet Discontinued 5 mg PO DAILY@1700 20 0 April 22, 2013 1:00am April 24, 2013 [...] Date Documented Da te Episodic/Chronic Abdominal pain (11 sources) Acute abdominal pain; Translations: [Pelvic and perineal pain] Onset: 5 07-01-2020 Episodic Anxiety disorders (20 sources) Anxiety disorder; Translations: [Mixed anxiety and depressive disorder] 07-01-2020 Chronic Bacterial infection; unspecified site (20 sources) 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; Translations: [Streptococcal infection, unspecified site] 11-16-2022 Episodic Calculus of urinary tract (13 sources) Urinary bladder stone; Translations: [Calculus in bladder] Onset: 2 07-01-2020 Episodic Comment on above: Numerous 1-2 cm blad china calculi s/p cystolitholapaxy (04/03/19) Chronic obstructive pulmonary disease and bronchiectasis (1 source) Chronic obstructive pulmonary disease, unspecified; Translations: [Chronic obstructive pulmonary disease, unspecified] Onset: 5 Chronic Chronic ulcer of skin (20 sources) Pressure ulcer of buttock; Translations: [Pressure ulcer of right buttock, stage 4] 02-01-2019 Chronic Comment on above: DRESSING CHANGES AT [facility] Complications of surgical procedures or medical care (20 sources) Iatrogenic disorder; Translations: [Iatrogenic enterotomy] 02-01-2019 Episodic Congestive heart failure; nonhypertensive (1 source) Heart failure, unspecified; Translations: [Heart failure, unspecified] Onset: 5 Chronic Deficiency and other anemia (1 source) Anemia, unspecified; Translations: [Anemia, unspecified] Onset: 5 Episodic Diabetes mellitus without complication (1 source) Type 2 diabetes mellitus without complications; Translations: [Type 2 diabetes mellitus without complications] Onset: 5 Chronic Diseases of white blood cells (20 sources) Leukocytosis; Translations: [Elevated white blood cell count, unspecified] 02-01-2019 Chronic Epilepsy; convulsions (14 sources) Seizure; Translations: [Unspecified convulsions] 07-03-2023 Episodic Fever of unknown origin (20 sources) Fever; Translations: [Fever, unspecified] 02-01-2019 Episodic Fluid and electrolyte disorders (20 sources) Dehydration; Translations: [Dehydration] 11-06-2022 Episodic Fracture of lower limb (20 sources) [...] Chronic Other diseases of bladder and urethra (10 sources) Spasm of bladder 07-18-2020 Chronic Other diseases of bladder and urethra (1 source) Neurogenic dysfunction of the urinary bladder; Translations: [Neuromuscular dysfunction of bladder, unspecified] Onset: 4 Chronic Other female genital disorders (18 sources) Abnormal vaginal bleeding; Translations: [Abnormal uterine and vaginal bleeding, unspecified] 01-27-2023 Chronic Other gastrointestinal disorders (1 source) Neurogenic bowel, not elsewhere classified; Translations: [Neurogenic bowel, not elsewhere classified] Onset: 5 Chronic Other gastrointestinal disorders (2 sources) Constipation, unspecified; Translations: [Constipation, unspecified] Onset: 4 Episodic Other nervous system disorders (20 sources) Disorder of brain; Translations: [Encephalopathy, unspecified] 02-01-2019 Chronic Other nervous system disorders (20 sources) Chronic pain; Translations: [Other chronic pain] 02-01-2019 Chronic Comment on above: PAIN MANAGEMENT Other nervous system disorders (7 sources) Encephalopathy, unspecified; Translations: [Encephalopathy, unspecified] Chronic Other nervous system disorders (1 source) Chronic pain syndrome; Translations: [Chronic pain syndrome] Onset: 5 05-15-2015 Chronic Other nervous system disorders (1 source) Polyneuropathy, unspecified; Translations: [Polyneuropathy, unspecified] Onset: 5 Chronic Other nutritional; endocrine; and metabolic disorders [...] Tetraparesis; Translations: [Quadriplegia, unspecified] Onset: 5 Chronic Comment on above: MOTORIZED WHEELCHAIR Phlebitis; thrombophlebitis and thromboembolism (20 sources) Deep venous thrombosis; Translations: [Acute embolism and thrombosis of unspecified deep veins of unspecified lower extremity] 02-01-2019 Episodic Comment on above: IN THE PAST Pneumonia (except that caused by tuberculosis or [...] of mental health and substance abuse codes (10 sources) H/O: depression 07-01-2020 Episodic Septicemia (except in labor) (18 sources) Sepsis; Translations: [Sepsis, unspecified organism] 07-03-2023 [...] Translations: [Hypothyroidism, unspecified] Onset: 5 02-01-2019 Chronic Comment on above: ON MED Unclassified (20 sources) chronic ostemyelitis rt ischial area 02-01-2019 Unclassified (20 sources) mild compromise flap rt ischial area 02-01-2019 Comment on above: myocutaneous flap to right ischial pressure sore Unclassified (1 source) Low back pain, unspecified; Translations: [Low back pain, unspecified] Onset: 5 Urinary tract infections (20 sources) Recurrent urinary tract infection; Translations: [Urinary tract infectious disease] Onset: 5 07-01-2020 Episodic Past or Other Problems Problem Classification Problem Date Documented Da te Episodic/Chronic Other aftercare (1 source) Other shelter (current) drug therapy; Translations: [Other shelter (current) drug therapy] Onset: 07-14-2024 Episodic Results Test Name Value Interpretation Reference Range Facility Basic Metabolic Profile (BMP )on 03-22-2025 BUN/CRE 44.6 RATIO High 04-02 [facility] Comment on above: Performed By: #### L 400.0001, L500.2500, L100.0100, M100.2200 #### [facility] [address] [place], [address] Calcium [Mass/Vol] 8.5 mg/dL Normal 7.6-11.0 [facility] Comment on above: Performed By: #### L 400.0001, L500.2500, L100.0100, M100.2200 #### [facility] [address] [place], [address] Chloride [Moles/Vol] 100 mmol/L Normal 98-108 [facility] Comment on above: Performed By: #### L 400.0001, L500.2500, L100.0100, M100.2200 #### [facility] [address] [place], [address] CO2 [Moles/Vol] 30.3 mmol/L Normal 21.0-32.0 [facility] Comment on above: Performed By: #### L 400.0001, L500.2500, L100.0100, M100.2200 #### [facility] [address] [place], [address] Creatinine [Mass/Vol] 0.22 mg/dL Low 0.70-1.20 [facility] Comment on above: Performed By: #### L 400.0001, L500.2500, L100.0100, M100.2200 #### [facility] [address] [place], [address] GAP 10 Normal 5-15 [facility] Comment on above: Performed By: #### L 400.0001, L500.2500, L100.0100, M100.2200 #### [facility] [address] [place], [address] GFR/1.73 sq M.predicted among non-blacks MDRD (S/P/Bld) [Vol rate/Area] 138 mL/min/{1.73_m2} Normal >60 [facility] Comment on above: Result Comment: mL/m in/1.73m2 CKD-EPI Creatinine Equation (2020) Performed By: #### L 400.0001, L500.2500, L100.0100, M100.2200 #### [facility] [address] [place], [address] Glucose [Mass/Vol] 113 mg/dL High 70-99 [facility] Comment on above: Performed By: #### L 400.0001, L500.2500, L100.0100, M100.2200 #### [facility] [address] [place], [address] Potassium [Moles/Vol] 3.9 mmol/L Normal 3.3-5.1 [facility] Comment on above: Performed By: #### L 400.0001, L500.2500, L100.0100, M100.2200 #### [facility] [address] [place], [address] Sodium [Moles/Vol] 140 mmol/L Normal 133-145 [facility] Comment on above: Performed By: #### L 400.0001, L500.2500, L100.0100, M100.2200 #### [facility] [address] [place], [address] Urea nitrogen [Mass/Vol] 10 mg/dL Normal 4-19 [facility] Comment on above: Performed By: #### L 400.0001, L500.2500, L100.0100, M100.2200 #### [facility] [address] [place], [address] CBC-Complete Blood Cnt No Di ffon 03-22-2025 Erythrocyte distribution width (RBC) [Ratio] 15.0 % High 11.6-14.6 [facility] Comment on above: Performed By: #### L 400.0001, L500.2500, L100.0100, M100.2200 #### [facility] [address] [place], [address] Hematocrit (Bld) [Volume fraction] 32.3 % Low 37-47 [facility] Comment on above: Performed By: #### L 400.0001, L500.2500, L100.0100, M100.2200 #### [facility] [address] [place], [address] Hemoglobin (Bld) [Mass/Vol] 9.9 g/dL Low 12.0-15.0 [facility] Comment on above: Performed By: #### L 400.0001, L500.2500, L100.0100, M100.2200 #### [facility] [address] [place], [address] MCH (RBC) [Entitic mass] 25.3 pg Low 27.0-32.0 [facility] Comment on above: Performed By: #### L 400.0001, L500.2500, L100.0100, M100.2200 #### [facility] [address] [place], [address] MCHC (RBC) [Mass/Vol] 30.7 g/dL Low 32-36 [facility] Comment on above: Performed By: #### L 400.0001, L500.2500, L100.0100, M100.2200 #### [facility] [address] [place], [address] MCV (RBC) [Entitic vol] 82.6 fL Normal 81-99 [facility] Comment on above: Performed By: #### L 400.0001, L500.2500, L100.0100, M100.2200 #### [facility] [address] [place], [address] Platelet mean volume (Bld) [Entitic vol] 9.5 fL Normal 6.2-12.0 [facility] Comment on above: Performed By: #### L 400.0001, L500.2500, L100.0100, M100.2200 #### [facility] [address] [place], [address] Platelets (Bld) [#/Vol] 298 10*3/uL Normal 150-450 [facility] Comment on above: Performed By: #### L 400.0001, L500.2500, L100.0100, M100.2200 #### [facility] [address] [place], [address] RBC (Bld) [#/Vol] 3.91 10*6/uL Low 4.2-5.4 [facility] Comment on above: Performed By: #### L 400.0001, L500.2500, L100.0100, M100.2200 #### [facility] [address] [place], [address] RDW SD 45.5 fl High 35.1-43.9 [facility] Comment on above: Performed By: #### L 400.0001, L500.2500, L100.0100, M100.2200 #### [facility] [address] [place], [address] WBC (Bld) [#/Vol] 7.6 10*3/uL Normal 4.4-11.0 [facility] Comment on above: Performed By: #### L 400.0001, L500.2500, L100.0100, M100.2200 #### [facility] [address] [place], [address] Fluor Guidance for Spine Inj on 03-02-2025 Fluor Guidance for Spine Inj [facility] Imaging Services [address] [place] [address] Fluor Guidance for Spine Inj MR#: [id number] Acct: [id number] Name: HENRIK REED Rep #: [id number] : 1975 F 50 From: Roosevelt wall MD PCP: Dr. Lavon Vicente MD Status: [facility] Study: Fluor Guidance for Spine Inj Date of Exam: Exam# [id number] Ordering Dr: Kenia Hammond MD PROCEDURE: FLUOR GUIDANCE FOR SPINE INJ 03/02/2025 REASON FOR EXAM: CAUDAL BLOCK TECHNIQUE: Procedure Code: RADSPN Modality: DX Procedure: FLUOR GUIDANCE FOR SPINE INJ. Intraoperative fluoroscopic services provided for caudal block. Radiation dose: 8.8 seconds of fluoroscopy. 7.85 mGy. A single image was submitted. COMPARISON: Prior study dated July 03, 2024. FINDINGS: Intraoperative fluoroscopic services provided for caudal block. RAD/Fluor Guidance for Spine Inj IMPRESSION: Intraoperative fluoroscopic services provided for caudal block. Reading Location: [place] [address] CC: Dr. Kenia Hammond MD; Dr. Lavon Vicente MD Delivery Table Operator: Signed [facility] MR/POSTOP.ANE 03-02-2025 MR/POSTOP.[facility] Medical Records Department [address] [place] [address] Anesthesia Postop Eval I 03/02/25 1246 MR#: [id number] Acct: [id number] Name: HENRIK REED Rep #: [id number] : 1975 50 From: Charo Joseph CRNA PCP: Dr. Lavon Vicente MD Status:REG [facility] Race: C Location: [place] [address] Anesthesia: Postop Eval I Current Vital Signs Temperature: 97.7 F Pulse Rate: 90 Blood Pressure: 106/69 Respiratory Rate: 12 Pulse Ox: 90 Oxygen Delivery Method: Room Air Assessment Airway patent: Yes Spontaneous unlabored respirations: Yes Mental status: Awake and Calm nausea: No Vomiting: No Anesthesia Complication: No Fluid Hydration Crystalloid volume administer (ml): 300 Total IV fluid infused: 300 Progress Note Anesthesia document: Postop Eval 1 completed: Yes 03/02/25 1248 Date Charo Joseph [employer] Cosigner Signature: Date CC: Signed [facility] [id number] 03-02-2025 MR/POST[address] Medical Records Department [address] [place] [address] Anesthesia Postop Eval II 03/02/25 1322 MR#: [id number] Acct: [id number] Name: HENRIK REED Rep #: [id number] : 1975 50 From: Corey Lauren MD PCP: Dr. Lavon Vicente MD Status:REG SDC Y Race: C Location: [facility]- Anesthesia Postop Eval I Sum Postop Eval Completion status Anesthesia document: Postop Eval 1 completed: Yes Anesthesia Postop Eval I Summary Anesthesia Postop Eval I Summary: Anesthesia Postop Eval I: Assessment Summary Airway patent Yes 03/02/25 12:48 [employer]ITAL[email or web address] Spontaneous unlabored Yes 03/02/25 12:48 [employer].JDEF respirations Mental status Awake,Calm 03/02/25 12:48 [employer].JDEF nausea No 03/02/25 12:48 [employer]ITAL[employer].JDEF Vomiting No 03/02/25 12:48 [employer].JDEF Anesthesia Postop Eval I: Fluid Summary Crystalloid volume administer 300 03/02/25 12:48 [employer]ITAL[employer].JDEF (ml) Colloids volume administered ( ml) Blood Product volume administered (ml) Total IV fluid infused 300 03/02/25 12:48 [employer]ITAL[email or web address].JDEF Anesthesia Postop Eval I: Summary Notes Anesthesia Complication No 03/02/25 12:48 [employer]PITAL[employer].JDEF Anesthesia Complication Comment: Post-operative progress note Anesthesia: Postop Eval II Evaluation Mental status: Awake Pain Level: 3 nausea: No Vomiting: No 03/02/25 1323 Date Corey Lauren MD Cosigner Signature: Date CC: Signed Normal [facility] Calculated very low density lipoprotein (VLDL) cholesterol measurementOrdered By: Kori Sethi on 02-27-2025 Calculated very low density lipoprotein (VLDL) cholesterol measurement 32 mg/dL 5-40 [facility] LDL calc ser/plasOrdered By: Kori Sethi on 02-27-2025 Cholesterol in LDL [Mass/Vol] 100 mg/dL [facility] Comment on above: Ympusjsifp=209-756 m g/dL & Higher Imse=647 mg/dL or greaterFriedwald Equation for LDL-C Lipid Profileon 02-27-2025 CHOL:HDL 4.22 Normal [facility] Comment on above: Order Comment: 517.2 Performed By: #### L 400.0001, L500.2500, L100.0100, M100.2200 #### [facility] [address] [place], [address] Cholesterol [Mass/Vol] 172 mg/dL Normal <=200 [facility] Comment on above: Order Comment: 517.2 Result Comment: Chol esterol level, Desirable <200 mg/dL Borderline high cholesterol 200-239 mg/dL High cholesterol >=240 mg/dL Recommendations of the NCEP Adult Treatment Panel for the following risk-cutoff thresholds for the [place] population. Performed By: #### L 400.0001, L500.2500, L100.0100, M100.2200 #### [facility] [address] [place], [address] Cholesterol in HDL [Mass/Vol] 41 mg/dL Normal [facility] Comment on above: Order Comment: 517.2 Result Comment: Rosa onal Cholesterol Education Program (NCEP) guidelines: <40 mg/dL: Low HDL-cholesterol (major risk factor for CHD) >= 60 mg/dL: High HDL-cholesterol (negative risk factor for CHD) HDL-cholesterol is affected by a number of factors, e.g. smoking, exercise, hormones, sex and age. Performed By: #### L 400.0001, L500.2500, L100.0100, M100.2200 #### [facility] [address] [place], [address] Cholesterol in LDL [Mass/Vol] 100 mg/dL Normal [facility] Comment on above: Order Comment: 517.2 Result Comment: Bord hmojpf=058-783 mg/dL Higher Mxtd=906 mg/dL or greater Friedwald Equation for LDL-C Performed By: #### L 400.0001, L500.2500, L100.0100, M100.2200 #### [facility] [address] [place], [address] Cholesterol in VLDL [Mass/Vol] 32 mg/dL Normal 5-40 [facility] Comment on above: Order Comment: 517.2 Performed By: #### L 400.0001, L500.2500, L100.0100, M100.2200 #### [facility] [address] [place], [address] Triglyceride [Mass/Vol] 158 mg/dL Normal [facility] Comment on above: Order Comment: 517.2 Result Comment: The drugs N-Acetylcysteine and Metamizole may falsely depress this assay. Normal range: <150 mg/dL Borderline High: 150-199 mg/dL High: 200-499 mg/dL Very High: >500 mg/dL Performed By: #### L 400.0001, L500.2500, L100.0100, M100.2200 #### [facility] [address] [place], [address] Screening total cholesterol/ high density lipoprotein (HDL) cholesterol ratioOrdered By: Kori Sethi on 02-27-2025 Cholesterol.total/Briana sterol in HDL [Mass ratio] 4.22 {ratio} [facility] Serum or plasma cholesterol in HDL measurement (mass/volume)Ordered By: Kori Sethi on 02-27-2025 Cholesterol in HDL [Mass/Vol] 41 mg/dL >40 [facility] Comment on above: National Cholesterol Education Program (NCEP) guidelines:<40 mg/dL: Low HDL-cholesterol (major risk factor for CHD)>= 60 mg/dL: High HDL-cholesterol (negative risk factor for CHD)HDL-cholesterol is affected by a number of factors, e.g. smoking, exercise, hormones, sex and age. Serum or plasma cholesterol measurement (mass/volume)Ordered By: Kori Sethi on 02-27-2025 Cholesterol [Mass/Vol] 172 mg/dL <201 [facility] Comment on above: Cholesterol level, D esirable <200 mg/dLBorderline high cholesterol 200-239 mg/dLHigh cholesterol >=240 mg/dLRecommendations of the NCEP Adult Treatment Panel for the following risk-cutoff thresholds for the [place] population. T4 Total, Thyroxinon 025 T4 [Mass/Vol] 8.2 ug/dL Normal 4.8-13.9 [facility] Comment on above: Order Comment: 517.2 Performed By: #### L 400.0001, L500.2500, L100.0100, M100.2200 #### [facility] [address] [place], [address] TSH DL <= 0.005 mIU/L QnOrde red By: Kori Sethi on 02-27-2025 TSH Qn 3.120 uIU/mL 0.300-4.200 [facility] Thyroid Stim Hormone (TSH)on 02-27-2025 TSH 3.120 uIU/mL Normal 0.300-4.200 [facility] Comment on above: Order Comment: 517.2 Performed By: #### L 400.0001, L500.2500, L100.0100, M100.2200 #### [facility] [address] [place], [place], [address] ThyroxineOrdered By: Kori Sethi on 02-27-2025 T4 [Mass/Vol] 8.2 ug/dL 4.8-13.9 [facility] Triglycerides measurementOrd ered By: Kori Sethi on 02-27-2025 Triglyceride [Mass/Vol] 158 mg/dL <199 [facility] Comment on above: The drugs N-Acetylcy steine and Metamizole may falsely depress this assay. Normal range: <150 mg/dLBorderline High: 150-199 mg/dLHigh: 200-499 mg/dLVery High: >500 mg/dL Stool Occult Blood iFOBon STOB Normal Reference Ran ge = Negative Immunochemical Fecal Occult Blood (iFOBT) method. Hemoccult Stl Ql IA Limitation: Menstrual bleeding, constipation bleeding, bleeding hemorrhoids, and urinary bleeding conditions may interfere with test. Occult Blood A Positive A OCCULT BLOOD POSITIVE Normal [facility] Comment on above: Performed By: #### L 400.0001, L500.2500, L100.0100, M100.2200 #### [facility] [address] [place], [address] Stool gastrointestinal hemog lobin detection by immunologic methodOrdered By: Kori Sethi on 02-21-2025 Lower GI hemoglobin IA Ql (Stl) Positive Abnormal [facility] Anion gap in Serum or Plasma Ordered By: Kori Sethi on 12-26-2024 Anion gap [Moles/Vol] 12 mmol/L 10-26 [facility] BUN/creatinine ratioOrdered By: Kori Sethi on 12-26-2024 Urea nitrogen/Creatinine [Mass ratio] 53.2 mg/mg High - [facility] Basic Metabolic Profile (BMP )on 12-26-2024 BUN/CRE 53.2 RATIO High 04-02 [facility] Comment on above: Order Comment: 517.2 Performed By: #### L 400.0001, L500.2500, L100.0100, M100.2200 #### [facility] [address] [place], [address] Calcium [Mass/Vol] 8.6 mg/dL Normal 7.6-11.0 [facility] Comment on above: Order Comment: 517.2 Performed By: #### L 400.0001, L500.2500, L100.0100, M100.2200 #### [facility] [address] [place], [address] Chloride [Moles/Vol] 99 mmol/L Normal 98-108 [facility] Comment on above: Order Comment: 517.2 Performed By: #### L 400.0001, L500.2500, L100.0100, M100.2200 #### [facility] [address] [place], [address] CO2 [Moles/Vol] 30.4 mmol/L Normal 21.0-32.0 [facility] Comment on above: Order Comment: 517.2 Performed By: #### L 400.0001, L500.2500, L100.0100, M100.2200 #### [facility] [address] [place], [address] Creatinine [Mass/Vol] 0.23 mg/dL Low 0.70-1.20 [facility] Comment on above: Order Comment: 517.2 Performed By: #### L 400.0001, L500.2500, L100.0100, M100.2200 #### [facility] [address] [place], [address] GAP 12 Normal 5-15 [facility] Comment on above: Order Comment: 517.2 Performed By: #### L 400.0001, L500.2500, L100.0100, M100.2200 #### [facility] [address] [place], [address] GFR/1.73 sq M.predicted among non-blacks MDRD (S/P/Bld) [Vol rate/Area] 138 mL/min/{1.73_m2} Normal >60 [facility] Comment on above: Order Comment: 517.2 Result Comment: mL/m in/1.73m2 CKD-EPI Creatinine Equation (2020) Performed By: #### L 400.0001, L500.2500, L100.0100, M100.2200 #### [facility] [address] [place], [address] Glucose [Mass/Vol] 103 mg/dL High 70-99 [facility] Comment on above: Order Comment: 517.2 Performed By: #### L 400.0001, L500.2500, L100.0100, M100.2200 #### [facility] [address] [place], [address] Potassium [Moles/Vol] 3.8 mmol/L Normal 3.3-5.1 [facility] Comment on above: Order Comment: 517.2 Performed By: #### L 400.0001, L500.2500, L100.0100, M100.2200 #### [facility] [address] [place], [address] Sodium [Moles/Vol] 141 mmol/L Normal 133-145 [facility] Comment on above: Order Comment: 517.2 Performed By: #### L 400.0001, L500.2500, L100.0100, M100.2200 #### [facility] [address] [place], [address] Urea nitrogen [Mass/Vol] 12 mg/dL Normal 4-19 [facility] Comment on above: Order Comment: 517.2 Performed By: #### L 400.0001, L500.2500, L100.0100, M100.2200 #### [facility] [address] [place], [address] Carbon dioxide, total [Moles /volume] in Central venous bloodOrdered By: Kori Sethi on 12-26-2024 CO2 [Moles/Vol] 30.4 mmol/L 21.0-32.0 [facility] Chloride assayOrdered By: Edenilson Sethi on 12-26-2024 Chloride [Moles/Vol] 99 mmol/L 98-108 [facility] Glomerular filtration rate ( GFR) estimation/1.73 sq m using serum, plasma, or whole bOrdered By: Kori Sethi on 12-26-2024 GFR/1.73 sq M.predicted among non-blacks MDRD (S/P/Bld) [Vol rate/Area] 138 mL/min/{1.73_m2} >60 [facility] Comment on above: mL/min/1.73m2 CKD-EP I Creatinine Equation (2020) Potassium measurement (mass/ volume)Ordered By: Kori Sethi on 12-26-2024 Potassium (Unsp spec) [Mass/Vol] 3.8 mmol/L 3.3-5.1 [facility] Serum creatinine measurement (mass/volume)Ordered By: Kori Sethi on 12-26-2024 Creatinine [Mass/Vol] 0.23 mg/dL Low 0.70-1.20 [facility] Serum glucose measurement (m ass/volume)Ordered By: Kori Sethi on 12-26-2024 Glucose [Mass/Vol] 103 mg/dL High 70-99 [facility] Serum or plasma calcium miguel angel urement (mass/volume)Ordered By: Kori Sethi on 12-26-2024 Calcium [Mass/Vol] 8.6 mg/dL 7.6-11.0 [facility] Serum or plasma urea nitroge n measurement (mass/volume)Ordered By: Kori Sethi on 12-26-2024 Urea nitrogen [Mass/Vol] 12 mg/dL 4-19 [facility] Sodium levelOrdered By: Bailey Sethi on 12-26-2024 Sodium [Moles/Vol] 141 mmol/L 133-145 [facility] Urine Cultureon 12-22-2024 URC Escherichia coli [place] Count 80,000-100,000 Klebsiella pneumoniae sp pneum Klebsiella pneumoniae sp pneum PMIR [place] Count 80,000-100,000 Proteus mirabilis Ampicillin Islt SUNG 4 Ampicillin+Sulbac Islt SUNG <=2 S Cefepime Islt SUNG <=0.12 cefTRIAXone Islt SUNG <=0.25 S Ciprofloxacin Islt SUNG >=4 R B-Lactamase Extended Susc Islt NEG Gentamicin Islt SUNG <=1 S levoFLOXacin Islt SUNG >=8 R Meropenem Islt SUNG <=0.25 S Nitrofurantoin Islt SUNG <=16 S Pip+Tazo Islt SUNG <=4 S TMP SMX Islt SUNG <=20 S Klebsiella pneumoniae sp pneum: REACTION Ampicillin Islt SUNG R Ampicillin+Sulbac Islt SUNG <=2 S Cefepime Islt SUNG <=0.12 cefTRIAXone Islt SUNG <=0.25 S Ciprofloxacin Islt SUNG <=0.06 S B-Lactamase Extended Susc Islt NEG Gentamicin Islt SUNG <=1 S levoFLOXacin Islt SUNG <=0.12 S Meropenem Islt SUNG <=0.25 S Nitrofurantoin Islt SUNG <=16 S Pip+Tazo Islt SUNG <=4 S TMP SMX Islt SUNG <=20 S Proteus mirabilis: REACTION Ampicillin Islt SUNG >=32 R Ampicillin+Sulbac Islt SUNG 8 S Cefepime Islt SUNG 2 cefTRIAXone Islt SUNG >=64 R Ciprofloxacin Islt SUNG >=4 R Gentamicin Islt SUNG <=1 S levoFLOXacin Islt SUNG >=8 R Meropenem Islt SUNG 1 S Nitrofurantoin Islt SUNG R Pip+Tazo Islt SUNG <=4 S TMP SMX Islt SUNG >=320 R Normal [facility] Comment on above: Performed By: #### L 500.4050, L503.0105, L506.1000, L100.0100, L500.4100, L501.9520 #### [facility] [address] [place], [address] Basic Metabolic Profile (BMP )on 12-21-2024 BUN Normal - [facility] Comment on above: Order Comment: 517.2 Result Comment: LABS WERE DRAWN 12/19/24 DO NOT NEED REPEATED Performed By: #### L 400.0001, L500.2500, L100.0100, M100.2200 #### [facility] [address] [place], [address] BUN/CRE Normal 10- [facility] Comment on above: Order Comment: 517.2 Result Comment: LABS WERE DRAWN 12/19/24 DO NOT NEED REPEATED Performed By: #### L 400.0001, L500.2500, L100.0100, M100.2200 #### [facility] [address] [place], [address] Calcium Normal 7.6-11.0 [facility] Comment on above: Order Comment: 517.2 Result Comment: LABS WERE DRAWN 12/19/24 DO NOT NEED REPEATED Performed By: #### L 400.0001, L500.2500, L100.0100, M100.2200 #### [facility] [address] [place], [address] CL Normal 98-108 [facility] Comment on above: Order Comment: 517.2 Result Comment: LABS WERE DRAWN 12/19/24 DO NOT NEED REPEATED Performed By: #### L 400.0001, L500.2500, L100.0100, M100.2200 #### [facility] [address] [place], [address] CO2 Normal 21.0-32.0 [facility] Comment on above: Order Comment: 517.2 Result Comment: LABS WERE DRAWN 12/19/24 DO NOT NEED REPEATED Performed By: #### L 400.0001, L500.2500, L100.0100, M100.2200 #### [facility] [address] [place], [address] CREAT,SERUM Normal 0.70-1.20 [facility] Comment on above: Order Comment: 517.2 Result Comment: LABS WERE DRAWN 12/19/24 DO NOT NEED REPEATED Performed By: #### L 400.0001, L500.2500, L100.0100, M100.2200 #### [facility] [address] [place], [address] eGFR Normal >60 [facility] Comment on above: Order Comment: 517.2 Result Comment: LABS WERE DRAWN 12/19/24 DO NOT NEED REPEATED Performed By: #### L 400.0001, L500.2500, L100.0100, M100.2200 #### [facility] [address] [place], [address] GAP Normal 5-15 [facility] Comment on above: Order Comment: 517.2 Result Comment: LABS WERE DRAWN 12/19/24 DO NOT NEED REPEATED Performed By: #### L 400.0001, L500.2500, L100.0100, M100.2200 #### [facility] [address] [place], [address] GLU Normal 70-99 [facility] Comment on above: Order Comment: 517.2 Result Comment: LABS WERE DRAWN 12/19/24 DO NOT NEED REPEATED Performed By: #### L 400.0001, L500.2500, L100.0100, M100.2200 #### [facility] [address] [place], [address] Potassium Normal 3.3-5.1 [facility] Comment on above: Order Comment: 517.2 Result Comment: LABS WERE DRAWN 12/19/24 DO NOT NEED REPEATED Performed By: #### L 400.0001, L500.2500, L100.0100, M100.2200 #### [facility] [address] [place], [address] Basic Metabolic Profile (BMP) Normal 133-145 [facility] Comment on above: Order Comment: 517.2 Result Comment: LABS WERE DRAWN 12/19/24 DO NOT NEED REPEATED Performed By: #### L 400.0001, L500.2500, L100.0100, M100.2200 #### [facility] [address] [place], [address] CBC W/Diff, Automatedon 07-1 0-2024 Absolute Neut Normal 2.0-7.7 [facility] Comment on above: Order Comment: 517.2 Result Comment: LABS WERE DRAWN 12/19/24 DO NOT NEED REPEATED Performed By: #### L 400.0001, L500.2500, L100.0100, M100.2200 #### [facility] [address] [place], [address] HCT Normal 37-47 [facility] Comment on above: Order Comment: 517.2 Result Comment: LABS WERE DRAWN 12/19/24 DO NOT NEED REPEATED Performed By: #### L 400.0001, L500.2500, L100.0100, M100.2200 #### [facility] [address] [place], [address] HGB Normal 12.0-15.0 [facility] Comment on above: Order Comment: 517.2 Result Comment: LABS WERE DRAWN 12/19/24 DO NOT NEED REPEATED Performed By: #### L 400.0001, L500.2500, L100.0100, M100.2200 #### [facility] [address] [place], [address] MCH Normal 27.0-32.0 [facility] Comment on above: Order Comment: 517.2 Result Comment: LABS WERE DRAWN 12/19/24 DO NOT NEED REPEATED Performed By: #### L 400.0001, L500.2500, L100.0100, M100.2200 #### [facility] [address] [place], [address] MCHC Normal 32-36 [facility] Comment on above: Order Comment: 517.2 Result Comment: LABS WERE DRAWN 12/19/24 DO NOT NEED REPEATED Performed By: #### L 400.0001, L500.2500, L100.0100, M100.2200 #### [facility] [address] [place], [address] MCV Normal 81-99 [facility] Comment on above: Order Comment: 517.2 Result Comment: LABS WERE DRAWN 12/19/24 DO NOT NEED REPEATED Performed By: #### L 400.0001, L500.2500, L100.0100, M100.2200 #### [facility] [address] [place], [address] NEUT% Normal 47-70 [facility] Comment on above: Order Comment: 517.2 Result Comment: LABS WERE DRAWN 12/19/24 DO NOT NEED REPEATED Performed By: #### L 400.0001, L500.2500, L100.0100, M100.2200 #### [facility] [address] [place], [address] PLT Normal 150-450 [facility] Comment on above: Order Comment: 517.2 Result Comment: LABS WERE DRAWN 12/19/24 DO NOT NEED REPEATED Performed By: #### L 400.0001, L500.2500, L100.0100, M100.2200 #### [facility] [address] [place], [address] RBC Normal 4.2-5.4 [facility] Comment on above: Order Comment: 517.2 Result Comment: LABS WERE DRAWN 12/19/24 DO NOT NEED REPEATED Performed By: #### L 400.0001, L500.2500, L100.0100, M100.2200 #### [facility] [address] [place], [address] RDW CV Normal 11.6-14.6 [facility] Comment on above: Order Comment: 517.2 Result Comment: LABS WERE DRAWN 12/19/24 DO NOT NEED REPEATED Performed By: #### L 400.0001, L500.2500, L100.0100, M100.2200 #### [facility] [address] [place], [address] RDW SD Normal 35.1-43.9 [facility] Comment on above: Order Comment: 517.2 Result Comment: LABS WERE DRAWN 12/19/24 DO NOT NEED REPEATED Performed By: #### L 400.0001, L500.2500, L100.0100, M100.2200 #### [facility] [address] [place], [address] WBC Normal 4.4-11.0 [facility] Comment on above: Order Comment: 517.2 Result Comment: LABS WERE DRAWN 12/19/24 DO NOT NEED REPEATED Performed By: #### L 400.0001, L500.2500, L100.0100, M100.2200 #### [facility] [address] [place], [address] Absolute lymphocyte countOrd ered By: Kori Sethi on 12-19-2024 Lymphocytes Auto (Unsp spec) [#/Vol] 2.67 10*3/uL 0.83-4.51 [facility] Absolute neutrophil countOrd ered By: Kori Sethi on 12-19-2024 Neutrophils (Bld) [#/Vol] 5.3 10*3/uL 2.0-7.7 [facility] Anion gap in Serum or Plasma Ordered By: Kori Sethi on 12-19-2024 Anion gap [Moles/Vol] 10 mmol/L 5-15 [facility] Automated lymphocyte count a s percentage of total leukocytesOrdered By: Kori Sethi on 12-19-2024 Lymphocytes/100 WBC Auto (Unsp spec) 29.8 % -41 [facility] BUN/creatinine ratioOrdered By: Kori Sethi on 12-19-2024 Urea nitrogen/Creatinine [Mass ratio] 31.6 mg/mg High 10-20 [facility] Basic Metabolic Profile (BMP )on 12-19-2024 BUN/CRE 31.6 RATIO High 10- [facility] Comment on above: Order Comment: 517.2 Performed By: #### L 400.0001, L500.2500, L100.0100, M100.2200 #### [facility] [address] [place], [address] Calcium [Mass/Vol] 8.8 mg/dL Normal 7.6-11.0 [facility] Comment on above: Order Comment: 517.2 Performed By: #### L 400.0001, L500.2500, L100.0100, M100.2200 #### [facility] [address] [place], [address] Chloride [Moles/Vol] 100 mmol/L Normal 98-108 [facility] Comment on above: Order Comment: 517.2 Performed By: #### L 400.0001, L500.2500, L100.0100, M100.2200 #### [facility] [address] [place], [address] CO2 [Moles/Vol] 29.3 mmol/L Normal 21.0-32.0 [facility] Comment on above: Order Comment: 517.2 Performed By: #### L 400.0001, L500.2500, L100.0100, M100.2200 #### [facility] [address] [place], [address] Creatinine [Mass/Vol] 0.37 mg/dL Low 0.70-1.20 [facility] Comment on above: Order Comment: 517.2 Performed By: #### L 400.0001, L500.2500, L100.0100, M100.2200 #### [facility] [address] [place], [address] GAP 10 Normal 5-15 [facility] Comment on above: Order Comment: 517.2 Performed By: #### L 400.0001, L500.2500, L100.0100, M100.2200 #### [facility] [address] [place], [address] GFR/1.73 sq M.predicted among non-blacks MDRD (S/P/Bld) [Vol rate/Area] 123 mL/min/{1.73_m2} Normal >60 [facility] Comment on above: Order Comment: 517.2 Result Comment: mL/m in/1.73m2 CKD-EPI Creatinine Equation (2020) Performed By: #### L 400.0001, L500.2500, L100.0100, M100.2200 #### [facility] [address] [place], [address] Glucose [Mass/Vol] 104 mg/dL High 70-99 [facility] Comment on above: Order Comment: 517.2 Performed By: #### L 400.0001, L500.2500, L100.0100, M100.2200 #### [facility] [address] [place], [address] Potassium [Moles/Vol] 3.8 mmol/L Normal 3.3-5.1 [facility] Comment on above: Order Comment: 517.2 Performed By: #### L 400.0001, L500.2500, L100.0100, M100.2200 #### [facility] [address] [place], [address] Sodium [Moles/Vol] 138 mmol/L Normal 133-145 [facility] Comment on above: Order Comment: 517.2 Performed By: #### L 400.0001, L500.2500, L100.0100, M100.2200 #### [facility] [address] [place], [address] Urea nitrogen [Mass/Vol] 12 mg/dL Normal 4-19 [facility] Comment on above: Order Comment: 517.2 Performed By: #### L 400.0001, L500.2500, L100.0100, M100.2200 #### [facility] [address] [place], [address] Basophil percentageOrdered B y: Kori Sethi on 12-19-2024 Basophils/100 WBC (Bld) 0.4 % 0-1 [facility] Bilirubin Test strip Ql (U)O rdered By: Kori Sethi on 12-19-2024 Bilirubin Ql (U) Negative Negative [facility] CBC W/Diff, Automatedon 07-0 Absolute Lymph 2.67 X10 3/uL Normal 0.83-4.51 [facility] Comment on above: Order Comment: 517.2 Performed By: #### L 400.0001, L500.2500, L100.0100, M100.2200 #### [facility] [address] [place], [address] Absolute Neut 5.3 X10 3/uL Normal 2.0-7.7 [facility] Comment on above: Order Comment: 517.2 Performed By: #### L 400.0001, L500.2500, L100.0100, M100.2200 #### [facility] [address], [address] Basophils/100 WBC (Bld) 0.4 % Normal 0-1 [facility] Comment on above: Order Comment: 517.2 Performed By: #### L 400.0001, L500.2500, L100.0100, M100.2200 #### [facility] [address] [place], [address] Eosinophils/100 WBC (Bld) 3.7 % Normal 0-5 [facility] Comment on above: Order Comment: 517.2 Performed By: #### L 400.0001, L500.2500, L100.0100, M100.2200 #### [facility] [address] [place], [address] Erythrocyte distribution width (RBC) [Ratio] 14.7 % High 11.6-14.6 [facility] Comment on above: Order Comment: 517.2 Performed By: #### L 400.0001, L500.2500, L100.0100, M100.2200 #### [facility] [address] [place], [address] Hematocrit (Bld) [Volume fraction] 32.5 % Low 37-47 [facility] Comment on above: Order Comment: 517.2 Performed By: #### L 400.0001, L500.2500, L100.0100, M100.2200 #### [facility] [address] [place], [address] Hemoglobin (Bld) [Mass/Vol] 9.7 g/dL Low 12.0-15.0 [facility] Comment on above: Order Comment: 517.2 Performed By: #### L 400.0001, L500.2500, L100.0100, M100.2200 #### [facility] [address] [place], [address] IG% 0.200 Normal 0.0-0.9 [facility] Comment on above: Order Comment: 517.2 Result Comment: IG% - Immature Granulocytes (promyelocytes, myelocytes and metamyelocytes) > 1% indicates that a LEFT SHIFT is Present. Performed By: #### L 400.0001, L500.2500, L100.0100, M100.2200 #### [facility] [address] [place], [address] Lymphocytes/100 WBC (Bld) 29.8 % Normal 19-41 [facility] Comment on above: Order Comment: 517.2 Performed By: #### L 400.0001, L500.2500, L100.0100, M100.2200 #### [facility] [address] [place], [address] MCH (RBC) [Entitic mass] 24.9 pg Low 27.0-32.0 [facility] Comment on above: Order Comment: 517.2 Performed By: #### L 400.0001, L500.2500, L100.0100, M100.2200 #### [facility] [address] [place], [address] MCHC (RBC) [Mass/Vol] 29.8 g/dL Low 32-36 [facility] Comment on above: Order Comment: 517.2 Performed By: #### L 400.0001, L500.2500, L100.0100, M100.2200 #### [facility] [address] [place], [address] MCV (RBC) [Entitic vol] 83.5 fL Normal 81-99 [facility] Comment on above: Order Comment: 517.2 Performed By: #### L 400.0001, L500.2500, L100.0100, M100.2200 #### [facility] [address] [place], [address] Monocytes/100 WBC (Bld) 6.6 % Normal 0-10 [facility] Comment on above: Order Comment: 517.2 Performed By: #### L 400.0001, L500.2500, L100.0100, M100.2200 #### [facility] [address] [place], [address] Neutrophils/100 WBC (Bld) 59.3 % Normal 47-70 [facility] Comment on above: Order Comment: 517.2 Performed By: #### L 400.0001, L500.2500, L100.0100, M100.2200 #### [facility] [address] [place], [address] Nucleated RBC (Bld) [#/Vol] 0 10*3/uL Normal 0-5 [facility] Comment on above: Order Comment: 517.2 Performed By: #### L 400.0001, L500.2500, L100.0100, M100.2200 #### [facility] [address] [place], [address] Platelet mean volume (Bld) [Entitic vol] 9.7 fL Normal 6.2-12.0 [facility] Comment on above: Order Comment: 517.2 Performed By: #### L 400.0001, L500.2500, L100.0100, M100.2200 #### [facility] [address] [place], [address] Platelets (Bld) [#/Vol] 367 10*3/uL Normal 150-450 [facility] Comment on above: Order Comment: 517.2 Performed By: #### L 400.0001, L500.2500, L100.0100, M100.2200 #### [facility] [address] [place], [address] RBC (Bld) [#/Vol] 3.89 10*6/uL Low 4.2-5.4 [facility] Comment on above: Order Comment: 517.2 Performed By: #### L 400.0001, L500.2500, L100.0100, M100.2200 #### [facility] [address] [place], [address] RDW SD 44.6 fl High 35.1-43.9 [facility] Comment on above: Order Comment: 517.2 Performed By: #### L 400.0001, L500.2500, L100.0100, M100.2200 #### [facility] [address] [place], [address] WBC (Bld) [#/Vol] 9.0 10*3/uL Normal 4.4-11.0 [facility] Comment on above: Order Comment: 517.2 Performed By: #### L 400.0001, L500.2500, L100.0100, M100.2200 #### [facility] [address] [place], [address] Carbon dioxide, total [Moles /volume] in Central venous bloodOrdered By: Kori Sethi on 12-19-2024 CO2 [Moles/Vol] 29.3 mmol/L 21.0-32.0 [facility] Chloride assayOrdered By: Edenilson Sethi on 12-19-2024 Chloride [Moles/Vol] 100 mmol/L 98-108 [facility] Eosinophil percentageOrdered By: Kori Sethi on 12-19-2024 Eosinophils/100 WBC (Bld) 3.7 % 0-5 [facility] Erythrocyte distribution wid th ratioOrdered By: Kori Sethi on 12-19-2024 Erythrocyte distribution width (RBC) [Ratio] 14.7 % High 11.6-14.6 [facility] Erythrocyte distribution wid th standard deviationOrdered By: Kori Sethi on 12-19-2024 Erythrocyte distribution width (RBC) [Ratio] 44.6 fl High 35.1-43.9 [facility] Glomerular filtration rate ( GFR) estimation/1.73 sq m using serum, plasma, or whole bOrdered By: Kori Sethi on 12-19-2024 GFR/1.73 sq M.predicted among non-blacks MDRD (S/P/Bld) [Vol rate/Area] 123 mL/min/{1.73_m2} >60 [facility] Comment on above: mL/min/1.73m2 CKD-EP I Creatinine Equation (2020) Hematocrit Auto (Bld) [Volum e fraction]Ordered By: Kori Sethi on 12-19-2024 Hematocrit (Bld) [Volume fraction] 32.5 % Low 37-47 [facility] Hemoglobin measurementOrdere d By: Kori Sethi on 12-19-2024 Hemoglobin (Bld) [Mass/Vol] 9.7 g/dL Low 12.0-15.0 [facility] Immature granulocytes/100 WB C Auto (Bld)Ordered By: Kori Sethi on 12-19-2024 Immature granulocytes/100 WBC (Bld) 0.200 % 0.0-0.9 [facility] Comment on above: IG% - Immature Granu locytes (promyelocytes, myelocytes and metamyelocytes) > 1% indicates that a LEFT SHIFT is Present. Ketones Test strip Ql (U)Ord ered By: Kori Sethi on 12-19-2024 Ketones Ql (U) Negative Negative [facility] MCV (mean corpuscular volume ) determinationOrdered By: Kori Sethi on 12-19-2024 MCV (RBC) [Entitic vol] 83.5 fL 81-99 [facility] Mean corpuscular hemoglobin (MCH) determinationOrdered By: Kori Sethi on 12-19-2024 MCH (RBC) [Entitic mass] 24.9 pg Low 27.0-32.0 [facility] Mean corpuscular hemoglobin concentration (MCHC) determinationOrdered By: Kori Sethi on 12-19-2024 MCHC (RBC) [Mass/Vol] 29.8 g/dL Low 32-36 [facility] Mean platelet volume determi nationOrdered By: Kori Sethi on 12-19-2024 Platelet mean volume (Bld) [Entitic vol] 9.7 fL 6.2-12.0 [facility] Monocyte percentageOrdered B y: Kori Sethi on 12-19-2024 Monocytes/100 WBC (Bld) 6.6 % 0-10 [facility] Neutrophil percentageOrdered By: Kori Sethi on 12-19-2024 Neutrophils/100 WBC (Bld) 59.3 % 47-70 [facility] Nucleated red blood cell per centageOrdered By: Kori Sethi on 12-19-2024 Nucleated RBC/100 WBC (Bld) [Ratio] 0 % 0-5 [facility] Platelet countOrdered By: Edenilson Sethi on 12-19-2024 Platelets (Bld) [#/Vol] 367 10*3/uL 150-450 [facility] Potassium measurement (mass/ volume)Ordered By: Kori Sethi on 12-19-2024 Potassium (Unsp spec) [Mass/Vol] 3.8 mmol/L 3.3-5.1 [facility] Protein Test strip Ql (U)Ord ered By: Kori Sethi on 12-19-2024 Protein Ql (U) 15 mg/dl High Negative [facility] RBC Auto (Bld) [#/Vol]Ordere d By: Kori Sethi on 12-19-2024 RBC (Bld) [#/Vol] 3.89 10*6/uL Low 4.2-5.4 [facility] Serum creatinine measurement (mass/volume)Ordered By: Kori Sethi on 12-19-2024 Creatinine [Mass/Vol] 0.37 mg/dL Low 0.70-1.20 [facility] Serum glucose measurement (m ass/volume)Ordered By: Kori Sethi on 12-19-2024 Glucose [Mass/Vol] 104 mg/dL High 70-99 [facility] Serum or plasma calcium miguel angel urement (mass/volume)Ordered By: Kori Sethi on 12-19-2024 Calcium [Mass/Vol] 8.8 mg/dL 7.6-11.0 [facility] Serum or plasma urea nitroge n measurement (mass/volume)Ordered By: Kori Sethi on 12-19-2024 Urea nitrogen [Mass/Vol] 12 mg/dL 4-19 [facility] Sodium levelOrdered By: Bailey Sethi on 12-19-2024 Sodium [Moles/Vol] 138 mmol/L 133-145 [facility] Urinalysis, Routine (Dipstic k)on 12-19-2024 BILIRUBIN URINE Negative Normal Negative [facility] Comment on above: Order Comment: CLEAN CATCH Performed By: #### L 400.0001, L500.2500, L100.0100, M100.2200 #### [facility] [address] [place], [address] GLUCOSE, UR Normal Normal Normal [facility] Comment on above: Order Comment: CLEAN CATCH Performed By: #### L 400.0001, L500.2500, L100.0100, M100.2200 #### [facility] [address] [place], [address] KETONE UR Negative Normal Negative [facility] Comment on above: Order Comment: CLEAN CATCH Performed By: #### L 400.0001, L500.2500, L100.0100, M100.2200 #### [facility] [address] [place], [address] LEUK ESTERASE 500 /ul Abnormal Negative [facility] Comment on above: Order Comment: CLEAN CATCH Performed By: #### L 400.0001, L500.2500, L100.0100, M100.2200 #### [facility] [address] [place], [address] OCCULT BLOOD-UR 50 /ul Abnormal Negative [facility] Comment on above: Order Comment: CLEAN CATCH Performed By: #### L 400.0001, L500.2500, L100.0100, M100.2200 #### [facility] [address] [place], [address] pH UR 6.0 Normal 5.0 - 8.0 [facility] Comment on above: Order Comment: CLEAN CATCH Performed By: #### L 400.0001, L500.2500, L100.0100, M100.2200 #### [facility] [address] [place], [address] PROT DIPSTX 15 mg/dl Abnormal Negative [facility] Comment on above: Order Comment: CLEAN CATCH Performed By: #### L 400.0001, L500.2500, L100.0100, M100.2200 #### [facility] [address] [place], [address] SP.GR. DIPSTX 1.015 Normal 1.002-1.030 [facility] Comment on above: Order Comment: CLEAN CATCH Performed By: #### L 400.0001, L500.2500, L100.0100, M100.2200 #### [facility] [address] [place], [address] UROBILI Normal Normal Normal [facility] Comment on above: Order Comment: CLEAN CATCH Performed By: #### L 400.0001, L500.2500, L100.0100, M100.2200 #### [facility] [address] [place], [address] Urine clarityOrdered By: Shavonne Sethi on 12-19-2024 Clarity (U) Sl. Cloudy Normal Clear [facility] Comment on above: Order Comment: CLEAN CATCH Performed By: #### L 400.0001, L500.2500, L100.0100, M100.2200 #### [facility] [address] [place], [address] Urine color determinationOrd ered By: Kori Sethi on 12-19-2024 Color (U) Yellow Normal Yellow [facility] Comment on above: Order Comment: CLEAN CATCH Performed By: #### L 400.0001, L500.2500, L100.0100, M100.2200 #### [facility] [address] [place], [address] Urine cultureOrdered By: Shavonne Sethi on 12-19-2024 Bacteria identified Cx Nom (U) Escherichia coli Abnormal [facility] Bacteria identified Cx Nom (U) Klebsiella pneumoniae sp pneum Abnormal [facility] Bacteria identified Cx Nom (U) Proteus mirabilis Abnormal [facility] Urine glucose detectionOrder ed By: Kori Sethi on 12-19-2024 Glucose Ql (U) Normal mg/dl Normal [facility] Urine leukocyte esterase det ection by dipstickOrdered By: Kori Sethi on 12-19-2024 Leukocyte esterase Test strip Ql (U) 500 /ul High Negative [facility] Urine nitrite test by dipsti ckOrdered By: Kori Sethi on 12-19-2024 Nitrite Ql (U) Positive Abnormal Negative [facility] Comment on above: Order Comment: CLEAN CATCH Performed By: #### L 400.0001, L500.2500, L100.0100, M100.2200 #### [facility] [address] [place], [place], [id number] Urine pHOrdered By: Kori finnegan on 12-19-2024 pH (U) 6.0 [pH] 5.0 - 8.0 [facility] Urine specific gravity measu rementOrdered By: Kori Sethi on 12-19-2024 Specific gravity (U) [Rel density] 1.015 1.002-1.030 [facility] Urine urobilinogen measureme ntOrdered By: Kori Sethi on 12-19-2024 Urobilinogen Ql (U) Normal mg/dl Normal [facility] White blood cell (WBC) count Ordered By: Kori Sethi on 12-19-2024 WBC (Bld) [#/Vol] 9.0 10*3/uL 4.4-11.0 [facility] CBC-Complete Blood Cnt No Di ffon 12-05-2024 Erythrocyte distribution width (RBC) [Ratio] 14.9 % High 11.6-14.6 [facility] Comment on above: Order Comment: 517.2 Performed By: #### L 400.0001, L500.2500, L100.0100, M100.2200 #### [facility] [address] [facility] [place], [address] Hematocrit (Bld) [Volume fraction] 32.4 % Low 37-47 [facility] Comment on above: Order Comment: 517.2 Performed By: #### L 400.0001, L500.2500, L100.0100, M100.2200 #### [facility] [address] [place], [address] Hemoglobin (Bld) [Mass/Vol] 10.0 g/dL Low 12.0-15.0 [facility] Comment on above: Order Comment: 517.2 Performed By: #### L 400.0001, L500.2500, L100.0100, M100.2200 #### [facility] [address] [place], [address] MCH (RBC) [Entitic mass] 25.6 pg Low 27.0-32.0 [facility] Comment on above: Order Comment: 517.2 Performed By: #### L 400.0001, L500.2500, L100.0100, M100.2200 #### [facility] [address] [place], [address] MCHC (RBC) [Mass/Vol] 30.9 g/dL Low 32-36 [facility] Comment on above: Order Comment: 517.2 Performed By: #### L 400.0001, L500.2500, L100.0100, M100.2200 #### [facility] [address] [place], [address] MCV (RBC) [Entitic vol] 83.1 fL Normal 81-99 [facility] Comment on above: Order Comment: 517.2 Performed By: #### L 400.0001, L500.2500, L100.0100, M100.2200 #### [facility] [address] [place], [address] Platelet mean volume (Bld) [Entitic vol] 9.5 fL Normal 6.2-12.0 [facility] Comment on above: Order Comment: 517.2 Performed By: #### L 400.0001, L500.2500, L100.0100, M100.2200 #### [facility] [address] [place], [address] Platelets (Bld) [#/Vol] 342 10*3/uL Normal 150-450 [facility] Comment on above: Order Comment: 517.2 Performed By: #### L 400.0001, L500.2500, L100.0100, M100.2200 #### [facility] [address] [place], [address] RBC (Bld) [#/Vol] 3.90 10*6/uL Low 4.2-5.4 [facility] Comment on above: Order Comment: 517.2 Performed By: #### L 400.0001, L500.2500, L100.0100, M100.2200 #### [facility] [address] [place], [address] RDW SD 45.4 fl High 35.1-43.9 [facility] Comment on above: Order Comment: 517.2 Performed By: #### L 400.0001, L500.2500, L100.0100, M100.2200 #### [facility] [address] [place], [address] WBC (Bld) [#/Vol] 7.4 10*3/uL Normal 4.4-11.0 [facility] Comment on above: Order Comment: 517.2 Performed By: #### L 400.0001, L500.2500, L100.0100, M100.2200 #### [facility] [address] [place], [address] Erythrocyte distribution wid th ratioOrdered By: Kori Sethi on 12-05-2024 Erythrocyte distribution width (RBC) [Ratio] 14.9 % High 11.6-14.6 [facility] Erythrocyte distribution wid th standard deviationOrdered By: Kori Sethi on 12-05-2024 Erythrocyte distribution width (RBC) [Ratio] 45.4 fl High 35.1-43.9 [facility] Hematocrit Auto (Bld) [Volum e fraction]Ordered By: Kori Sethi on 12-05-2024 Hematocrit (Bld) [Volume fraction] 32.4 % Low 37-47 [facility] Hemoglobin measurementOrdere d By: Kori Sethi on 12-05-2024 Hemoglobin (Bld) [Mass/Vol] 10.0 g/dL Low 12.0-15.0 [facility] MCV (mean corpuscular volume ) determinationOrdered By: Kori Sethi on 12-05-2024 MCV (RBC) [Entitic vol] 83.1 fL 81-99 [facility] Mean corpuscular hemoglobin (MCH) determinationOrdered By: Kori Sethi on 12-05-2024 MCH (RBC) [Entitic mass] 25.6 pg Low 27.0-32.0 [facility] Mean corpuscular hemoglobin concentration (MCHC) determinationOrdered By: Kori Sethi on 12-05-2024 MCHC (RBC) [Mass/Vol] 30.9 g/dL Low 32-36 [facility] Mean platelet volume determi nationOrdered By: Kori Sethi on 12-05-2024 Platelet mean volume (Bld) [Entitic vol] 9.5 fL 6.2-12.0 [facility] Platelet countOrdered By: Edenilson Sethi on 12-05-2024 Platelets (Bld) [#/Vol] 342 10*3/uL 150-450 [facility] RBC Auto (Bld) [#/Vol]Ordere d By: Kori Sethi on 12-05-2024 RBC (Bld) [#/Vol] 3.90 10*6/uL Low 4.2-5.4 [facility] White blood cell (WBC) count Ordered By: Kori Sethi on 12-05-2024 WBC (Bld) [#/Vol] 7.4 10*3/uL 4.4-11.0 [facility] Anion gap in Serum or Plasma Ordered By: Kori Sethi on 12-04-2024 Anion gap [Moles/Vol] 16 mmol/L High 5-15 [facility] BUN/creatinine ratioOrdered By: Kori Sethi on 12-04-2024 Urea nitrogen/Creatinine [Mass ratio] 39.2 mg/mg High 10-20 [facility] Bilirubin, totalOrdered By: Kori Sethi on 12-04-2024 Bilirubin [Mass/Vol] 0.18 mg/dL 0.00-1.30 [facility] CBC-Complete Blood Cnt No Di ffon 12-04-2024 HCT Normal 37-47 [facility] Comment on above: Order Comment: - Result Comment: This specimen has been REJECTED due to Laboratory criteria: Clotted. LAB has been notified of need of recollection. 12/04/24 0850 [facility] Performed By: #### L 500.4050, L503.0105, L506.1000, L100.0100, L500.4100, L501.9520 #### [facility] [address] [place], [address] HGB Normal 12.0-15.0 [facility] Comment on above: Order Comment: 517-2 Result Comment: This specimen has been REJECTED due to Laboratory criteria: Clotted. LAB has been notified of need of recollection. 12/04/24 0850 [facility] Performed By: #### L 500.4050, L503.0105, L506.1000, L100.0100, L500.4100, L501.9520 #### [facility] [address] [place], [address] MCH Normal 27.0-32.0 [facility] Comment on above: Order Comment: 517-2 Result Comment: This specimen has been REJECTED due to Laboratory criteria: Clotted. LAB has been notified of need of recollection. 12/04/24 0850 [facility] Performed By: #### L 500.4050, L503.0105, L506.1000, L100.0100, L500.4100, L501.9520 #### [facility] [address] [place], [address] MCHC Normal 32-36 [facility] Comment on above: Order Comment: 517-2 Result Comment: This specimen has been REJECTED due to Laboratory criteria: Clotted. LAB has been notified of need of recollection. 12/04/24 0850 [facility] Performed By: #### L 500.4050, L503.0105, L506.1000, L100.0100, L500.4100, L501.9520 #### [facility] [address] [place], [address] MCV Normal 81-99 [facility] Comment on above: Order Comment: 517-2 Result Comment: This specimen has been REJECTED due to Laboratory criteria: Clotted. LAB has been notified of need of recollection. 12/04/24 0850 [facility] Performed By: #### L 500.4050, L503.0105, L506.1000, L100.0100, L500.4100, L501.9520 #### [facility] [address] [place], [address] PLT Normal 150-450 [facility] Comment on above: Order Comment: 517-2 Result Comment: This specimen has been REJECTED due to Laboratory criteria: Clotted. LAB has been notified of need of recollection. 12/04/24 0850 [facility] Performed By: #### L 500.4050, L503.0105, L506.1000, L100.0100, L500.4100, L501.9520 #### [facility] [address] [place], [address] RBC Normal 4.2-5.4 [facility] Comment on above: Order Comment: 517-2 Result Comment: This specimen has been REJECTED due to Laboratory criteria: Clotted. LAB has been notified of need of recollection. 12/04/24 0850 [facility] Performed By: #### L 500.4050, L503.0105, L506.1000, L100.0100, L500.4100, L501.9520 #### [facility] [address] [place], [address] RDW CV Normal 11.6-14.6 [facility] Comment on above: Order Comment: 517-2 Result Comment: This specimen has been REJECTED due to Laboratory criteria: Clotted. LAB has been notified of need of recollection. 12/04/24 0850 [facility] Performed By: #### L 500.4050, L503.0105, L506.1000, L100.0100, L500.4100, L501.9520 #### [facility] [address] [place], [address] RDW SD Normal 35.1-43.9 [facility] Comment on above: Order Comment: 517-2 Result Comment: This specimen has been REJECTED due to Laboratory criteria: Clotted. LAB has been notified of need of recollection. 12/04/24 0850 [facility] Performed By: #### L 500.4050, L503.0105, L506.1000, L100.0100, L500.4100, L501.9520 #### [facility] [address] [place], [address] WBC Normal 4.4-11.0 [facility] Comment on above: Order Comment: 517-2 Result Comment: This specimen has been REJECTED due to Laboratory criteria: Clotted. LAB has been notified of need of recollection. 12/04/24 0850 [facility] Performed By: #### L 500.4050, L503.0105, L506.1000, L100.0100, L500.4100, L501.9520 #### [facility] [address] [place], [address] Carbon dioxide, total [Moles /volume] in Central venous bloodOrdered By: Kori Sethi on 12-04-2024 CO2 [Moles/Vol] 23.9 mmol/L 21.0-32.0 [facility] Chloride assayOrdered By: Edenilson Sethi on 12-04-2024 Chloride [Moles/Vol] 99 mmol/L 98-108 [facility] Comprehensive Metabolic Prof ilon 12-04-2024 Albumin [Mass/Vol] 3.7 g/dL Normal 3.5-5.0 [facility] Comment on above: Order Comment: 517-2 Performed By: #### L 500.4050, L503.0105, L506.1000, L100.0100, L500.4100, L501.9520 #### [facility] [address] [place], [address] Albumin/Globulin [Mass ratio] 1.0 {ratio} Normal 0.9-2.4 [facility] Comment on above: Order Comment: 517-2 Performed By: #### L 500.4050, L503.0105, L506.1000, L100.0100, L500.4100, L501.9520 #### [facility] [address] [place], [address] ALK PHOS 86 U/L Normal 35-104 [facility] Comment on above: Order Comment: 517-2 Performed By: #### L 500.4050, L503.0105, L506.1000, L100.0100, L500.4100, L501.9520 #### [facility] [address] [place], [address] ALT [Catalytic activity/Vol] 11 U/L Normal <=34 [facility] Comment on above: Order Comment: 517-2 Performed By: #### L 500.4050, L503.0105, L506.1000, L100.0100, L500.4100, L501.9520 #### [facility] [address] [place], [address] AST [Catalytic activity/Vol] 17 U/L Normal <=31 [facility] Comment on above: Order Comment: 517-2 Performed By: #### L 500.4050, L503.0105, L506.1000, L100.0100, L500.4100, L501.9520 #### [facility] [address] [place], [address] Bilirubin [Mass/Vol] 0.18 mg/dL Normal 0.00-1.30 [facility] Comment on above: Order Comment: 517-2 Performed By: #### L 500.4050, L503.0105, L506.1000, L100.0100, L500.4100, L501.9520 #### [facility] [address] [place], [address] BUN/CRE 39.2 RATIO High 10-20 [facility] Comment on above: Order Comment: 517-2 Performed By: #### L 500.4050, L503.0105, L506.1000, L100.0100, L500.4100, L501.9520 #### [facility] [address] [place], [address] Calcium [Mass/Vol] 9.0 mg/dL Normal 7.6-11.0 [facility] Comment on above: Order Comment: 517-2 Performed By: #### L 500.4050, L503.0105, L506.1000, L100.0100, L500.4100, L501.9520 #### [facility] [address] [place], [address] Chloride [Moles/Vol] 99 mmol/L Normal 98-108 [facility] Comment on above: Order Comment: 517-2 Performed By: #### L 500.4050, L503.0105, L506.1000, L100.0100, L500.4100, L501.9520 #### [facility] [address] [place], [address] CO2 [Moles/Vol] 23.9 mmol/L Normal 21.0-32.0 [facility] Comment on above: Order Comment: 517-2 Performed By: #### L 500.4050, L503.0105, L506.1000, L100.0100, L500.4100, L501.9520 #### [facility] [address] [place], [address] Creatinine [Mass/Vol] 0.27 mg/dL Low 0.70-1.20 [facility] Comment on above: Order Comment: 517-2 Performed By: #### L 500.4050, L503.0105, L506.1000, L100.0100, L500.4100, L501.9520 #### [facility] [address] [place], [address] GAP 16 High 5-15 [facility] Comment on above: Order Comment: 517-2 Performed By: #### L 500.4050, L503.0105, L506.1000, L100.0100, L500.4100, L501.9520 #### [facility] [address] [place], [address] GFR/1.73 sq M.predicted among non-blacks MDRD (S/P/Bld) [Vol rate/Area] 133 mL/min/{1.73_m2} Normal >60 [facility] Comment on above: Order Comment: 517-2 Result Comment: mL/m in/1.73m2 CKD-EPI Creatinine Equation (2020) Performed By: #### L 500.4050, L503.0105, L506.1000, L100.0100, L500.4100, L501.9520 #### [facility] [address] [place], [address] Globulin (S) [Mass/Vol] 3.7 g/dL Normal 2.2-4.2 [facility] Comment on above: Order Comment: 517-2 Performed By: #### L 500.4050, L503.0105, L506.1000, L100.0100, L500.4100, L501.9520 #### [facility] [address] [place], [address] Glucose [Mass/Vol] 120 mg/dL High 70-99 [facility] Comment on above: Order Comment: 517-2 Performed By: #### L 500.4050, L503.0105, L506.1000, L100.0100, L500.4100, L501.9520 #### [facility] [address] [place], [address] Potassium [Moles/Vol] 3.6 mmol/L Normal 3.3-5.1 [facility] Comment on above: Order Comment: 517-2 Performed By: #### L 500.4050, L503.0105, L506.1000, L100.0100, L500.4100, L501.9520 #### [facility] [address] [place], [address] Sodium [Moles/Vol] 139 mmol/L Normal 133-145 [facility] Comment on above: Order Comment: 517-2 Performed By: #### L 500.4050, L503.0105, L506.1000, L100.0100, L500.4100, L501.9520 #### [facility] [address] [place], [address] T PROT 7.4 g/dL Normal 5.9-8.4 [facility] Comment on above: Order Comment: 517-2 Performed By: #### L 500.4050, L503.0105, L506.1000, L100.0100, L500.4100, L501.9520 #### [facility] [address] [place], [address] Urea nitrogen [Mass/Vol] 10 mg/dL Normal 4-19 [facility] Comment on above: Order Comment: 517-2 Performed By: #### L 500.4050, L503.0105, L506.1000, L100.0100, L500.4100, L501.9500 #### [facility] [address] [place], [address] Glomerular filtration rate ( GFR) estimation/1.73 sq m using serum, plasma, or whole bOrdered By: Kori Sethi on 12-04-2024 GFR/1.73 sq M.predicted among non-blacks MDRD (S/P/Bld) [Vol rate/Area] 133 mL/min/{1.73_m2} >60 [facility] Comment on above: mL/min/1.73m2 CKD-EP I Creatinine Equation (2020) Laboratory - Chemistry and C hemistry - challengeOrdered By: Kori Sethi on 12-04-2024 AST [Catalytic activity/Vol] 17 U/L <32 [facility] Potassium measurement (mass/ volume)Ordered By: Kori Sethi on 12-04-2024 Potassium (Unsp spec) [Mass/Vol] 3.6 mmol/L 3.3-5.1 [facility] Serum creatinine measurement (mass/volume)Ordered By: Kori Sethi on 12-04-2024 Creatinine [Mass/Vol] 0.27 mg/dL Low 0.70-1.20 [facility] Serum globulin measurementOr dered By: Kori Sethi on 12-04-2024 Globulin (S) [Mass/Vol] 3.7 g/dL 2.2-4.2 [facility] Serum glucose measurement (m ass/volume)Ordered By: Kori Sethi on 12-04-2024 Glucose [Mass/Vol] 120 mg/dL High 70-99 [facility] Serum or plasma alanine lyon otransferase (ALT) measurementOrdered By: Kori Sethi on 12-04-2024 ALT [Catalytic activity/Vol] 11 U/L <35 [facility] Serum or plasma albumin miguel angel urement (mass/volume)Ordered By: Kori Sethi on 12-04-2024 Albumin [Mass/Vol] 3.7 g/dL 3.5-5.0 [facility] Serum or plasma albumin/glob ulin mass ratioOrdered By: Kori Sethi on 12-04-2024 Albumin/Globulin [Mass ratio] 1.0 {ratio} 0.9-2.4 [facility] Serum or plasma alkaline raghu sphatase measurementOrdered By: Kori Sethi on 12-04-2024 ALP [Catalytic activity/Vol] 86 U/L 35-104 [facility] Serum or plasma calcium miguel angel urement (mass/volume)Ordered By: Kori Sethi on 12-04-2024 Calcium [Mass/Vol] 9.0 mg/dL 7.6-11.0 [facility] Serum or plasma urea nitroge n measurement (mass/volume)Ordered By: Kori Sethi on 12-04-2024 Urea nitrogen [Mass/Vol] 10 mg/dL 4-19 [facility] Sodium levelOrdered By: Bailey Sethi on 12-04-2024 Sodium [Moles/Vol] 139 mmol/L 133-145 [facility] T4 Total, Thyroxinon 025 T4 [Mass/Vol] 9.6 ug/dL Normal 4.8-13.9 [facility] Comment on above: Order Comment: 517-2 Performed By: #### L 500.4050, L503.0105, L506.1000, L100.0100, L500.4100, L501.9520 #### [facility] [address] [place], [place] [address] foreign. [place], [place], [id number] TSH DL <= 0.005 mIU/L QnOrde red By: Kori Sethi on 12-04-2024 TSH Qn 2.040 uIU/mL 0.300-4.200 [facility] Thyroid Stim Hormone (TSH)on 12-04-2024 TSH 2.040 uIU/mL Normal 0.300-4.200 [facility] Comment on above: Order Comment: 517-2 Performed By: #### L 500.4050, L503.0105, L506.1000, L100.0100, L500.4100, L501.9520 #### [facility] [place], [address] ThyroxineOrdered By: Kori Sethi on 12-04-2024 T4 [Mass/Vol] 9.6 ug/dL 4.8-13.9 [facility] Total proteinOrdered By: Shavonne Sethi on 12-04-2024 Protein [Mass/Vol] 7.4 g/dL 5.9-8.4 [facility] Absolute lymphocyte countOrd ered By: Korijonathan Sethi on 10-06-2024 Lymphocytes Auto (Unsp spec) [#/Vol] 2.68 10*3/uL 0.83-4.51 [facility] Absolute neutrophil countOrd ered By: Korijonathan Sethi on 10-06-2024 Neutrophils (Bld) [#/Vol] 5.5 10*3/uL 2.0-7.7 [facility] Anion gap in Serum or Plasma Ordered By: Kori Sethi on 10-06-2024 Anion gap [Moles/Vol] 14 mmol/L 5- [facility] Automated lymphocyte count a s percentage of total leukocytesOrdered By: Kori Sethi on 10-06-2024 Lymphocytes/100 WBC Auto (Unsp spec) 29.3 % 19-41 [facility] BUN/creatinine ratioOrdered By: Korijonathan Sethi on 10-06-2024 Urea nitrogen/Creatinine [Mass ratio] 24.7 mg/mg High 10-20 [facility] Basophil percentageOrdered B y: Kori Sethi on 10-06-2024 Basophils/100 WBC (Bld) 0.4 % 0-1 [facility] Bilirubin, totalOrdered By: Kori Sethi on 10-06-2024 Bilirubin [Mass/Vol] 0.23 mg/dL 0.00-1.30 [facility] CBC W/Diff, Automatedon 09-13 Absolute Lymph 2.68 X10 3/uL Normal 0.83-4.51 [facility] Comment on above: Performed By: #### L 500.4050, L503.0105, L506.1000, L100.0100, L500.4100, L501.9520 #### [facility] [address] [place], [address] Absolute Neut 5.5 X10 3/uL Normal 2.0-7.7 [facility] Comment on above: Performed By: #### L 500.4050, L503.0105, L506.1000, L100.0100, L500.4100, L501.9520 #### [facility] [address] [place], [address] Basophils/100 WBC (Bld) 0.4 % Normal 0-1 [facility] Comment on above: Performed By: #### L 500.4050, L503.0105, L506.1000, L100.0100, L500.4100, L501.9520 #### [facility] [address] [place], [address] Eosinophils/100 WBC (Bld) 3.5 % Normal 0-5 [facility] Comment on above: Performed By: #### L 500.4050, L503.0105, L506.1000, L100.0100, L500.4100, L501.9520 #### [facility] [address] [place], [address] Erythrocyte distribution width (RBC) [Ratio] 15.4 % High 11.6-14.6 [facility] Comment on above: Performed By: #### L 500.4050, L503.0105, L506.1000, L100.0100, L500.4100, L501.9520 #### [facility] [address] [place], [address] Hematocrit (Bld) [Volume fraction] 33.0 % Low 37-47 [facility] Comment on above: Performed By: #### L 500.4050, L503.0105, L506.1000, L100.0100, L500.4100, L501.9520 #### [facility] [address] [place], [address] Hemoglobin (Bld) [Mass/Vol] 10.0 g/dL Low 12.0-15.0 [facility] Comment on above: Performed By: #### L 500.4050, L503.0105, L506.1000, L100.0100, L500.4100, L501.9520 #### [facility] [address] [place], [address] IG% 0.400 Normal 0.0-0.9 [facility] Comment on above: Result Comment: IG% - Immature Granulocytes (promyelocytes, myelocytes and metamyelocytes) > 1% indicates that a LEFT SHIFT is Present. Performed By: #### L 500.4050, L503.0105, L506.1000, L100.0100, L500.4100, L501.9520 #### [facility] [address] [place], [address] Lymphocytes/100 WBC (Bld) 29.3 % Normal 19-41 [facility] Comment on above: Performed By: #### L 500.4050, L503.0105, L506.1000, L100.0100, L500.4100, L501.9520 #### [facility] [address] [place], [address] MCH (RBC) [Entitic mass] 25.3 pg Low 27.0-32.0 [facility] Comment on above: Performed By: #### L 500.4050, L503.0105, L506.1000, L100.0100, L500.4100, L501.9520 #### [facility] [address] [place], [address] MCHC (RBC) [Mass/Vol] 30.3 g/dL Low 32-36 [facility] Comment on above: Performed By: #### L 500.4050, L503.0105, L506.1000, L100.0100, L500.4100, L501.9520 #### [facility] [address] [place], [address] MCV (RBC) [Entitic vol] 83.5 fL Normal 81-99 [facility] Comment on above: Performed By: #### L 500.4050, L503.0105, L506.1000, L100.0100, L500.4100, L501.9520 #### [facility] [address] [place], [address] Monocytes/100 WBC (Bld) 6.7 % Normal 0-10 [facility] Comment on above: Performed By: #### L 500.4050, L503.0105, L506.1000, L100.0100, L500.4100, L501.9520 #### [facility] [address] [place], [address] Neutrophils/100 WBC (Bld) 59.7 % Normal 47-70 [facility] Comment on above: Performed By: #### L 500.4050, L503.0105, L506.1000, L100.0100, L500.4100, L501.9520 #### [facility] [address] [place], [address] Nucleated RBC (Bld) [#/Vol] 0 10*3/uL Normal 0-5 [facility] Comment on above: Performed By: #### L 500.4050, L503.0105, L506.1000, L100.0100, L500.4100, L501.9520 #### [facility] [address] [place], [address] Platelet mean volume (Bld) [Entitic vol] 9.6 fL Normal 6.2-12.0 [facility] Comment on above: Performed By: #### L 500.4050, L503.0105, L506.1000, L100.0100, L500.4100, L501.9520 #### [facility] [address] [place], [address] Platelets (Bld) [#/Vol] 357 10*3/uL Normal 150-450 [facility] Comment on above: Performed By: #### L 500.4050, L503.0105, L506.1000, L100.0100, L500.4100, L501.9520 #### [facility] [address] [place], [address] RBC (Bld) [#/Vol] 3.95 10*6/uL Low 4.2-5.4 [facility] Comment on above: Performed By: #### L 500.4050, L503.0105, L506.1000, L100.0100, L500.4100, L501.9520 #### [facility] [address] [place], [address] RDW SD 47.2 fl High 35.1-43.9 [facility] Comment on above: Performed By: #### L 500.4050, L503.0105, L506.1000, L100.0100, L500.4100, L501.9520 #### [facility] [address] [place], [address] WBC (Bld) [#/Vol] 9.2 10*3/uL Normal 4.4-11.0 [facility] Comment on above: Performed By: #### L 500.4050, L503.0105, L506.1000, L100.0100, L500.4100, L501.9520 #### [facility] [address] [place], [address] Carbon dioxide, total [Moles /volume] in Central venous bloodOrdered By: Kori Sethi on 10-06-2024 CO2 [Moles/Vol] 26.1 mmol/L 21.0-32.0 [facility] Chloride assayOrdered By: Edenilson Sethi on 10-06-2024 Chloride [Moles/Vol] 98 mmol/L 98-108 [facility] Comprehensive Metabolic Prof ilon 10-06-2024 Albumin [Mass/Vol] 3.6 g/dL Normal 3.5-5.0 [facility] Comment on above: Performed By: #### L 500.4050, L503.0105, L506.1000, L100.0100, L500.4100, L501.9520 #### [facility] [address] [place], [address] Albumin/Globulin [Mass ratio] 1.0 {ratio} Normal 0.9-2.4 [facility] Comment on above: Performed By: #### L 500.4050, L503.0105, L506.1000, L100.0100, L500.4100, L501.9520 #### [facility] [address] [place], [address] ALK PHOS 77 U/L Normal 35-104 [facility] Comment on above: Performed By: #### L 500.4050, L503.0105, L506.1000, L100.0100, L500.4100, L501.9520 #### [facility] [address] [place], [address] ALT [Catalytic activity/Vol] 10 U/L Normal <=34 [facility] Comment on above: Performed By: #### L 500.4050, L503.0105, L506.1000, L100.0100, L500.4100, L501.9520 #### [facility] [address] [place], [address] AST [Catalytic activity/Vol] 15 U/L Normal <=31 [facility] Comment on above: Performed By: #### L 500.4050, L503.0105, L506.1000, L100.0100, L500.4100, L501.9520 #### [facility] [address] [place], [address] Bilirubin [Mass/Vol] 0.23 mg/dL Normal 0.00-1.30 [facility] Comment on above: Performed By: #### L 500.4050, L503.0105, L506.1000, L100.0100, L500.4100, L501.9520 #### [facility] [address] [place], [address] BUN/CRE 24.7 RATIO High 10-20 [facility] Comment on above: Performed By: #### L 500.4050, L503.0105, L506.1000, L100.0100, L500.4100, L501.9520 #### [facility] [address] [place], [address] Calcium [Mass/Vol] 8.3 mg/dL Normal 7.6-11.0 [facility] Comment on above: Performed By: #### L 500.4050, L503.0105, L506.1000, L100.0100, L500.4100, L501.9520 #### [facility] [address] [place], [address] Chloride [Moles/Vol] 98 mmol/L Normal 98-108 [facility] Comment on above: Performed By: #### L 500.4050, L503.0105, L506.1000, L100.0100, L500.4100, L501.9520 #### [facility] [address] [place], [address] CO2 [Moles/Vol] 26.1 mmol/L Normal 21.0-32.0 [facility] Comment on above: Performed By: #### L 500.4050, L503.0105, L506.1000, L100.0100, L500.4100, L501.9520 #### [facility] [address] [place], [address] Creatinine [Mass/Vol] 0.28 mg/dL Low 0.70-1.20 [facility] Comment on above: Performed By: #### L 500.4050, L503.0105, L506.1000, L100.0100, L500.4100, L501.9520 #### [facility] [address] [place], [address] GAP 14 Normal 5-15 [facility] Comment on above: Performed By: #### L 500.4050, L503.0105, L506.1000, L100.0100, L500.4100, L501.9520 #### [facility] [address] [place], [address] GFR/1.73 sq M.predicted among non-blacks MDRD (S/P/Bld) [Vol rate/Area] 131 mL/min/{1.73_m2} Normal >60 [facility] Comment on above: Result Comment: mL/m in/1.73m2 CKD-EPI Creatinine Equation (2020) Performed By: #### L 500.4050, L503.0105, L506.1000, L100.0100, L500.4100, L501.9520 #### [facility] [address] [place], [address] Globulin (S) [Mass/Vol] 3.5 g/dL Normal 2.2-4.2 [facility] Comment on above: Performed By: #### L 500.4050, L503.0105, L506.1000, L100.0100, L500.4100, L501.9520 #### [facility] [address] [place], [address] Glucose [Mass/Vol] 127 mg/dL High 70-99 [facility] Comment on above: Performed By: #### L 500.4050, L503.0105, L506.1000, L100.0100, L500.4100, L501.9520 #### [facility] [address] [place], [address] Potassium [Moles/Vol] 3.7 mmol/L Normal 3.3-5.1 [facility] Comment on above: Performed By: #### L 500.4050, L503.0105, L506.1000, L100.0100, L500.4100, L501.9520 #### [facility] [address] [place], [address] Sodium [Moles/Vol] 138 mmol/L Normal 133-145 [facility] Comment on above: Performed By: #### L 500.4050, L503.0105, L506.1000, L100.0100, L500.4100, L501.9520 #### [facility] [address] [place], [address] T PROT 7.1 g/dL Normal 5.9-8.4 [facility] Comment on above: Performed By: #### L 500.4050, L503.0105, L506.1000, L100.0100, L500.4100, L501.9520 #### [facility] [address] [place], [address] Urea nitrogen [Mass/Vol] 7 mg/dL Normal 4-19 [facility] Comment on above: Performed By: #### L 500.4050, L503.0105, L506.1000, L100.0100, L500.4100, L501.9520 #### [facility] [address] [place], [address] Eosinophil percentageOrdered By: Kori Sethi on 10-06-2024 Eosinophils/100 WBC (Bld) 3.5 % 0-5 [facility] Erythrocyte distribution wid th ratioOrdered By: Kori Sethi on 10-06-2024 Erythrocyte distribution width (RBC) [Ratio] 15.4 % High 11.6-14.6 [facility] Erythrocyte distribution wid th standard deviationOrdered By: Kori Sethi on 10-06-2024 Erythrocyte distribution width (RBC) [Ratio] 47.2 fl High 35.1-43.9 [facility] Glomerular filtration rate ( GFR) estimation/1.73 sq m using serum, plasma, or whole bOrdered By: Kori Sethi on 10-06-2024 GFR/1.73 sq M.predicted among non-blacks MDRD (S/P/Bld) [Vol rate/Area] 131 mL/min/{1.73_m2} >60 [facility] Comment on above: mL/min/1.73m2 CKD-EP I Creatinine Equation (2020) Hematocrit Auto (Bld) [Volum e fraction]Ordered By: Kori Sethi on 10-06-2024 Hematocrit (Bld) [Volume fraction] 33.0 % Low 37-47 [facility] Hemoglobin measurementOrdere d By: Kori Sethi on 10-06-2024 Hemoglobin (Bld) [Mass/Vol] 10.0 g/dL Low 12.0-15.0 [facility] Immature granulocytes/100 WB C Auto (Bld)Ordered By: Kori Sethi on 10-06-2024 Immature granulocytes/100 WBC (Bld) 0.400 % 0.0-0.9 [facility] Comment on above: IG% - Immature Granu locytes (promyelocytes, myelocytes and metamyelocytes) > 1% indicates that a LEFT SHIFT is Present. Laboratory - Chemistry and C hemistry - challengeOrdered By: Kori Sethi on 10-06-2024 AST [Catalytic activity/Vol] 15 U/L <32 [facility] MCV (mean corpuscular volume ) determinationOrdered By: Kori Sethi on 10-06-2024 MCV (RBC) [Entitic vol] 83.5 fL 81-99 [facility] Mean corpuscular hemoglobin (MCH) determinationOrdered By: Kroi Sethi on 10-06-2024 MCH (RBC) [Entitic mass] 25.3 pg Low 27.0-32.0 [facility] Mean corpuscular hemoglobin concentration (MCHC) determinationOrdered By: Kori Sethi on 10-06-2024 MCHC (RBC) [Mass/Vol] 30.3 g/dL Low 32-36 [facility] Mean platelet volume determi nationOrdered By: Kori Sethi on 10-06-2024 Platelet mean volume (Bld) [Entitic vol] 9.6 fL 6.2-12.0 [facility] Monocyte percentageOrdered B y: Kori Sethi on 10-06-2024 Monocytes/100 WBC (Bld) 6.7 % 0-10 [facility] Neutrophil percentageOrdered By: Kori Sethi on 10-06-2024 Neutrophils/100 WBC (Bld) 59.7 % 47-70 [facility] Nucleated red blood cell per centageOrdered By: Kori Sethi on 10-06-2024 Nucleated RBC/100 WBC (Bld) [Ratio] 0 % 0-5 [facility] Platelet countOrdered By: Edenilson Sethi on 10-06-2024 Platelets (Bld) [#/Vol] 357 10*3/uL 150-450 [facility] Potassium measurement (mass/ volume)Ordered By: Kori Sethi on 10-06-2024 Potassium (Unsp spec) [Mass/Vol] 3.7 mmol/L 3.3-5.1 [facility] RBC Auto (Bld) [#/Vol]Ordere d By: Kori Sethi on 10-06-2024 RBC (Bld) [#/Vol] 3.95 10*6/uL Low 4.2-5.4 [facility] Serum creatinine measurement (mass/volume)Ordered By: Kori Sethi on 10-06-2024 Creatinine [Mass/Vol] 0.28 mg/dL Low 0.70-1.20 [facility] Serum globulin measurementOr dered By: Kori Sethi on 10-06-2024 Globulin (S) [Mass/Vol] 3.5 g/dL 2.2-4.2 [facility] Serum glucose measurement (m ass/volume)Ordered By: Kori Sethi on 10-06-2024 Glucose [Mass/Vol] 127 mg/dL High 70-99 [facility] Serum or plasma alanine lyon otransferase (ALT) measurementOrdered By: Kori Sethi on 10-06-2024 ALT [Catalytic activity/Vol] 10 U/L <35 [facility] Serum or plasma albumin miguel angel urement (mass/volume)Ordered By: Kori Sethi on 10-06-2024 Albumin [Mass/Vol] 3.6 g/dL 3.5-5.0 [facility] Serum or plasma albumin/glob ulin mass ratioOrdered By: Kori Sethi on 10-06-2024 Albumin/Globulin [Mass ratio] 1.0 {ratio} 0.9-2.4 [facility] Serum or plasma alkaline raghu sphatase measurementOrdered By: Kori Sethi on 10-06-2024 ALP [Catalytic activity/Vol] 77 U/L 35-104 [facility] Serum or plasma calcium miguel angel urement (mass/volume)Ordered By: Kori Sethi on 10-06-2024 Calcium [Mass/Vol] 8.3 mg/dL 7.6-11.0 [facility] Serum or plasma urea nitroge n measurement (mass/volume)Ordered By: Kori Sethi on 10-06-2024 Urea nitrogen [Mass/Vol] 7 mg/dL 4-19 [facility] Sodium levelOrdered By: Bailey Sethi on 10-06-2024 Sodium [Moles/Vol] 138 mmol/L 133-145 [facility] Total proteinOrdered By: Shavonne Sethi on 10-06-2024 Protein [Mass/Vol] 7.1 g/dL 5.9-8.4 [facility] White blood cell (WBC) count Ordered By: Kori Sethi on 10-06-2024 WBC (Bld) [#/Vol] 9.2 10*3/uL 4.4-11.0 [facility] Anion gap in Serum or Plasma Ordered By: Lavon Vicente on 09-06-2024 Anion gap [Moles/Vol] 11 mmol/L 5-15 [facility] BUN/creatinine ratioOrdered By: Lavon Vicente on 09-06-2024 Urea nitrogen/Creatinine [Mass ratio] 35.3 mg/mg High 10-20 [facility] Bilirubin, totalOrdered By: Lavon Vicente on 09-06-2024 Bilirubin [Mass/Vol] mg/dL 0.00-1.30 [facility] CBC-Complete Blood Cnt No Di ffon 09-06-2024 Erythrocyte distribution width (RBC) [Ratio] 16.5 % High 11.6-14.6 [facility] Comment on above: Order Comment: 517.2 Performed By: #### L 400.0001, L500.2500, L100.0100, M100.2200 #### [facility] [address] [place], [address] Hematocrit (Bld) [Volume fraction] 31.5 % Low 37-47 [facility] Comment on above: Order Comment: 517.2 Performed By: #### L 400.0001, L500.2500, L100.0100, M100.2200 #### [facility] [address] [place], [address] Hemoglobin (Bld) [Mass/Vol] 9.7 g/dL Low 12.0-15.0 [facility] Comment on above: Order Comment: 517.2 Performed By: #### L 400.0001, L500.2500, L100.0100, M100.2200 #### [facility] [address] [place], [address] MCH (RBC) [Entitic mass] 26.0 pg Low 27.0-32.0 [facility] Comment on above: Order Comment: 517.2 Performed By: #### L 400.0001, L500.2500, L100.0100, M100.2200 #### [facility] [address] [place], [address] MCHC (RBC) [Mass/Vol] 30.8 g/dL Low 32-36 [facility] Comment on above: Order Comment: 517.2 Performed By: #### L 400.0001, L500.2500, L100.0100, M100.2200 #### [facility] [address] [place], [address] MCV (RBC) [Entitic vol] 84.5 fL Normal 81-99 [facility] Comment on above: Order Comment: 517.2 Performed By: #### L 400.0001, L500.2500, L100.0100, M100.2200 #### [facility] [address] [place], [address] Platelet mean volume (Bld) [Entitic vol] 9.6 fL Normal 6.2-12.0 [facility] Comment on above: Order Comment: 517.2 Performed By: #### L 400.0001, L500.2500, L100.0100, M100.2200 #### [facility] [address] [place], [address] Platelets (Bld) [#/Vol] 295 10*3/uL Normal 150-450 [facility] Comment on above: Order Comment: 517.2 Performed By: #### L 400.0001, L500.2500, L100.0100, M100.2200 #### [facility] [address] [place], [address] RBC (Bld) [#/Vol] 3.73 10*6/uL Low 4.2-5.4 [facility] Comment on above: Order Comment: 517.2 Performed By: #### L 400.0001, L500.2500, L100.0100, M100.2200 #### [facility] [address] [place], [address] RDW SD 51.1 fl High 35.1-43.9 [facility] Comment on above: Order Comment: 517.2 Performed By: #### L 400.0001, L500.2500, L100.0100, M100.2200 #### [facility] [address] [place], [address] WBC (Bld) [#/Vol] 6.5 10*3/uL Normal 4.4-11.0 [facility] Comment on above: Order Comment: 517.2 Performed By: #### L 400.0001, L500.2500, L100.0100, M100.2200 #### [facility] [address] [place], [address] Carbon dioxide, total [Moles /volume] in Central venous bloodOrdered By: Lavon Vicente on 09-06-2024 CO2 [Moles/Vol] 27.9 mmol/L 21.0-32.0 [facility] Chloride assayOrdered By: Cristi Vicente on 09-06-2024 Chloride [Moles/Vol] 103 mmol/L 98-108 [facility] Comprehensive Metabolic Prof ilon 09-06-2024 Albumin [Mass/Vol] 3.4 g/dL Low 3.5-5.0 [facility] Comment on above: Order Comment: 517.2 Performed By: #### L 400.0001, L500.2500, L100.0100, M100.2200 #### [facility] [address] [place], [address] Albumin/Globulin [Mass ratio] 1.0 {ratio} Normal 0.9-2.4 [facility] Comment on above: Order Comment: 517.2 Performed By: #### L 400.0001, L500.2500, L100.0100, M100.2200 #### [facility] [address] [place], [address] ALK PHOS 59 U/L Normal 35-104 [facility] Comment on above: Order Comment: 517.2 Performed By: #### L 400.0001, L500.2500, L100.0100, M100.2200 #### [facility] [address] [place], [address] ALT [Catalytic activity/Vol] 15 U/L Normal <=34 [facility] Comment on above: Order Comment: 517.2 Performed By: #### L 400.0001, L500.2500, L100.0100, M100.2200 #### [facility] [address] [place], [address] AST [Catalytic activity/Vol] 20 U/L Normal <=31 [facility] Comment on above: Order Comment: 517.2 Performed By: #### L 400.0001, L500.2500, L100.0100, M1.0 #### [facility] [address] [place], [address] BUN/CRE 35.3 RATIO High 10-20 [facility] Comment on above: Order Comment: 517.2 Performed By: #### L 400.0001, L500.2500, L100.0100, M100.0 #### [facility] [address] [place], [address] Calcium [Mass/Vol] 6.8 mg/dL Low 7.6-11.0 [facility] Comment on above: Order Comment: 517.2 Performed By: #### L 400.0001, L500.2500, L100.0100, M100.2200 #### [facility] [address] [place], [address] Chloride [Moles/Vol] 103 mmol/L Normal 98-108 [facility] Comment on above: Order Comment: 517.2 Performed By: #### L 400.0001, L500.2500, L100.0100, M100.2200 #### [facility] [address] [place], [address] CO2 [Moles/Vol] 27.9 mmol/L Normal 21.0-32.0 [facility] Comment on above: Order Comment: 517.2 Performed By: #### L 400.0001, L500.2500, L100.0100, M100.2200 #### [facility] [address] [place], [address] Creatinine [Mass/Vol] 0.25 mg/dL Low 0.70-1.20 [facility] Comment on above: Order Comment: 517.2 Performed By: #### L 400.0001, L500.2500, L100.0100, M100.2200 #### [facility] [address] [place], [address] GAP 11 Normal 5-15 [facility] Comment on above: Order Comment: 517.2 Performed By: #### L 400.0001, L500.2500, L100.0100, M100.2200 #### [facility] [address] [place], [address] GFR/1.73 sq M.predicted among non-blacks MDRD (S/P/Bld) [Vol rate/Area] 135 mL/min/{1.73_m2} Normal >60 [facility] Comment on above: Order Comment: 517.2 Result Comment: mL/m in/1.73m2 CKD-EPI Creatinine Equation (2020) Performed By: #### L 400.0001, L500.2500, L100.0100, M100.2200 #### [facility] [address] [place], [address] Globulin (S) [Mass/Vol] 3.4 g/dL Normal 2.2-4.2 [facility] Comment on above: Order Comment: 517.2 Performed By: #### L 400.0001, L500.2500, L100.0100, M100.2200 #### [facility] [address] [place], [address] Glucose [Mass/Vol] 110 mg/dL High 70-99 [facility] Comment on above: Order Comment: 517.2 Performed By: #### L 400.0001, L500.2500, L100.0100, M100.2200 #### [facility] [address] [place], [address] Potassium [Moles/Vol] 3.9 mmol/L Normal 3.3-5.1 [facility] Comment on above: Order Comment: 517.2 Performed By: #### L 400.0001, L500.2500, L100.0100, M100.2200 #### [facility] [address] [place], [address] Sodium [Moles/Vol] 142 mmol/L Normal 133-145 [facility] Comment on above: Order Comment: 517.2 Performed By: #### L 400.0001, L500.2500, L100.0100, M100.2200 #### [facility] [address] [place], [address] T BILI < 0.15 Normal 0.00-1.30 [facility] Comment on above: Order Comment: 517.2 Performed By: #### L 400.0001, L500.2500, L100.0100, M100.2200 #### [facility] [address] [place], [address] T PROT 6.9 g/dL Normal 5.9-8.4 [facility] Comment on above: Order Comment: 517.2 Performed By: #### L 400.0001, L500.2500, L100.0100, M100.2200 #### [facility] [address] [place], [address] Urea nitrogen [Mass/Vol] 9 mg/dL Normal 4-19 [facility] Comment on above: Order Comment: 517.2 Performed By: #### L 400.0001, L500.2500, L100.0100, M100.2200 #### [facility] [address] [place], [address] Erythrocyte distribution wid th (RBC) [Ratio]Ordered By: Lavon Vicente on 09-06-2024 Erythrocyte distribution width (RBC) [Entitic vol] 51.1 fL High 35.1-43.9 [facility] Erythrocyte distribution wid th ratioOrdered By: Lavon Vicente on 09-06-2024 Erythrocyte distribution width (RBC) [Ratio] 16.5 % High 11.6-14.6 [facility] Erythrocyte distribution wid th standard deviationOrdered By: Lavon Vicente on 09-06-2024 Erythrocyte distribution width (RBC) [Ratio] 51.1 fl High 35.1-43.9 [facility] GFR/1.73 sq M.predicted juvenal g non-blacks MDRD (S/P/Bld) [Vol rate/Area]Ordered By: Lavon Vicente on 09-06-2024 Estimated GFR (MDRD) Non-Af Amer 135 >60 [facility] Comment on above: mL/min/1.73m2 CKD-EP I Creatinine Equation (2020) Glomerular filtration rate ( GFR) estimation/1.73 sq m using serum, plasma, or whole bOrdered By: Lavon Vicente on 09-06-2024 GFR/1.73 sq M.predicted among non-blacks MDRD (S/P/Bld) [Vol rate/Area] 135 mL/min/{1.73_m2} >60 [facility] Comment on above: mL/min/1.73m2 CKD-EP I Creatinine Equation (2020) Hematocrit Auto (Bld) [Volum e fraction]Ordered By: Lavon Vicente on 09-06-2024 Hematocrit (Bld) [Volume fraction] 31.5 % Low 37-47 [facility] Hemoglobin measurementOrdere d By: Lavon Vicente on 09-06-2024 Hemoglobin (Bld) [Mass/Vol] 9.7 g/dL Low 12.0-15.0 [facility] L506.1001on 09-06-2024 Vitamin D 25-OH 31.2 ng/mL Normal 30-100 [facility] Comment on above: Order Comment: 517.2 Result Comment: Rosalba min D Status Deficiency: <20 ng/mL (50nmol/L) Insufficiency: 20-30 ng/mL (50-75 nmol/L) Sufficiency: 30-100 ng/mL (75-250 nmol/L) Toxicity: >100 ng/mL (>250 nmol/L) Performed By: #### L 400.0001, L500.2500, L100.0100, M100.2200 #### [facility] [address] [place], [address] Laboratory - Chemistry and C hemistry - challengeOrdered By: Lavon Vicente on 09-06-2024 AST [Catalytic activity/Vol] 20 U/L <32 [facility] MCV (mean corpuscular volume ) determinationOrdered By: Lavon Vicente on 09-06-2024 MCV (RBC) [Entitic vol] 84.5 fL 81-99 [facility] Mean corpuscular hemoglobin (MCH) determinationOrdered By: Lavon Vicente on 09-06-2024 MCH (RBC) [Entitic mass] 26.0 pg Low 27.0-32.0 [facility] Mean corpuscular hemoglobin concentration (MCHC) determinationOrdered By: Lavon Vicente on 09-06-2024 MCHC (RBC) [Mass/Vol] 30.8 g/dL Low 32-36 [facility] Mean platelet volume determi nationOrdered By: Lavon Vicente on 09-06-2024 Platelet mean volume (Bld) [Entitic vol] 9.6 fL 6.2-12.0 [facility] Platelet countOrdered By: Pa ul Jules on 09-06-2024 Platelets (Bld) [#/Vol] 295 10*3/uL 150-450 [facility] Potassium (Unsp spec) [Mass/ Vol]Ordered By: Lavon Vicente on 09-06-2024 Potassium [Moles/Vol] 3.9 mmol/L 3.3-5.1 [facility] Potassium measurement (mass/ volume)Ordered By: Lavon Vicente on 09-06-2024 Potassium (Unsp spec) [Mass/Vol] 3.9 mmol/L 3.3-5.1 [facility] RBC Auto (Bld) [#/Vol]Ordere d By: Lavon Vicente on 09-06-2024 RBC (Bld) [#/Vol] 3.73 10*6/uL Low 4.2-5.4 [facility] Serum creatinine measurement (mass/volume)Ordered By: Lavon Vicente on 09-06-2024 Creatinine [Mass/Vol] 0.25 mg/dL Low 0.70-1.20 [facility] Serum globulin measurementOr dered By: Lavon Vicente on 09-06-2024 Globulin (S) [Mass/Vol] 3.4 g/dL 2.2-4.2 [facility] Serum glucose measurement (m ass/volume)Ordered By: Lavon Vicente on 09-06-2024 Glucose [Mass/Vol] 110 mg/dL High 70-99 [facility] Serum or plasma alanine lyon otransferase (ALT) measurementOrdered By: Lavon Vicente on 09-06-2024 ALT [Catalytic activity/Vol] 15 U/L <35 [facility] Serum or plasma albumin miguel angel urement (mass/volume)Ordered By: Lavon Vicente on 09-06-2024 Albumin [Mass/Vol] 3.4 g/dL Low 3.5-5.0 [facility] Serum or plasma albumin/glob ulin mass ratioOrdered By: Lavon Vicente on 09-06-2024 Albumin/Globulin [Mass ratio] 1.0 {ratio} 0.9-2.4 [facility] Serum or plasma alkaline raghu sphatase measurementOrdered By: Lavon Vicente on 09-06-2024 ALP [Catalytic activity/Vol] 59 U/L 35-104 [facility] Serum or plasma calcium miguel angel urement (mass/volume)Ordered By: Lavon Vicente on 09-06-2024 Calcium [Mass/Vol] 6.8 mg/dL Low 7.6-11.0 [facility] Serum or plasma urea nitroge n measurement (mass/volume)Ordered By: Lavon Vicente on 09-06-2024 Urea nitrogen [Mass/Vol] 9 mg/dL 4-19 [facility] Sodium levelOrdered By: Lavon Vicente on 09-06-2024 Sodium [Moles/Vol] 142 mmol/L 133-145 [facility] T4 Free Directon 09-06-2024 T4 FREE DIRECT 1.40 ng/dL Normal 0.76-1.46 [facility] Comment on above: Order Comment: 517.2 Performed By: #### L 400.0001, L500.2500, L100.0100, M100.2200 #### [facility] [address] [place], [place], [address] T4 freeOrdered By: Laovn syed on 09-06-2024 Free T4 [Mass/Vol] 1.40 ng/dL 0.76-1.46 [facility] TSH DL <= 0.005 mIU/L QnOrde red By: Lavon Vicente on 09-06-2024 Thyroid Stimulating Hormone (TSH) 2.120 uIU/mL 0.300-4.200 [facility] TSH Qn 2.120 uIU/mL 0.300-4.200 [facility] Thyroid Stim Hormone (TSH)on 09-06-2024 TSH 2.120 uIU/mL Normal 0.300-4.200 [facility] Comment on above: Order Comment: 517.2 Performed By: #### L 400.0001, L500.2500, L100.0100, M100.2200 #### [facility] [address] [place], [place], [id number] Total proteinOrdered By: Estefany Vicente on 09-06-2024 Protein [Mass/Vol] 6.9 g/dL 5.9-8.4 [facility] Vitamin D, 25-hydroxyOrdered By: Lavon Vicente on 09-06-2024 Vitamin D 25-Hydroxy 31.2 ng/mL 30-100 [facility] Comment on above: Vitamin D StatusDefi ciency: <20 ng/mL (50nmol/L)Insufficiency: 20-30 ng/mL (50-75 nmol/L)Sufficiency: 30-100 ng/mL (75-250 nmol/L)Toxicity: >100 ng/mL (>250 nmol/L) White blood cell (WBC) count Ordered By: Lavon Vicente on 09-06-2024 WBC (Bld) [#/Vol] 6.5 10*3/uL 4.4-11.0 [facility] Serum or plasma thyroid stim ulating hormone (TSH) measurement (units/volume)Ordered By: Kori Sethi on 07-25-2024 TSH Qn 0.989 uIU/mL 0.358-3.740 [facility] TSH QnOrdered By: Kori patterson on 07-25-2024 Thyroid Stimulating Hormone (TSH) 0.989 uIU/mL 0.358-3.740 [facility] Thyroid Stim Hormone (TSH)on 07-25-2024 TSH 0.989 uIU/mL Normal 0.358-3.740 [facility] Comment on above: Order Comment: 517.2 Performed By: #### L 400.0001, L500.2500, L100.0100, M100.2200 #### [facility] [address] [place], [address] Absolute lymphocyte countOrd ered By: Kori Sethi on 07-14-2024 Lymphocytes Auto (Unsp spec) [#/Vol] 2.86 10*3/uL 0.83-4.51 [facility] Absolute neutrophil countOrd ered By: Korijonathan Sethi on 07-14-2024 Neutrophils (Bld) [#/Vol] 5.7 10*3/uL 2.0-7.7 [facility] Albumin to globulin ratioOrd ered By: Kori Sethi on 07-14-2024 Albumin/Globulin [Mass ratio] 0.6 {ratio} Low 0.9-2.4 [facility] Automated lymphocyte count a s percentage of total leukocytesOrdered By: Kori Sethi on 07-14-2024 Lymphocytes/100 WBC Auto (Unsp spec) 30.2 % 19-41 [facility] Basophil percentageOrdered B y: Kori Sethi on 07-14-2024 Basophils/100 WBC (Bld) 0.5 % 0-1 [facility] Bilirubin, totalOrdered By: Kori Sethi on 07-14-2024 Bilirubin [Mass/Vol] 0.20 mg/dL 0.20-1.00 [facility] Comment on above: For patients on eltr ombopag therapy, use of Dimension [place] TBIL is not recommended. Blood urea nitrogen (BUN)/cr eatinine ratioOrdered By: Kori Sethi on 07-14-2024 Urea nitrogen/Creatinine [Mass ratio] 43.2 mg/mg High 10-20 [facility] CBC W/Diff, Automatedon 06-16 Absolute Lymph 2.86 X10 3/uL Normal 0.83-4.51 [facility] Comment on above: Order Comment: 517-2 Performed By: #### L 400.0001, L500.2500, L100.0100, M100.2200 #### [facility] [address] [place], [address] Absolute Neut 5.7 X10 3/uL Normal 2.0-7.7 [facility] Comment on above: Order Comment: 517-2 Performed By: #### L 400.0001, L500.2500, L100.0100, M100.2200 #### [facility] [address] [place], [address] Basophils/100 WBC (Bld) 0.5 % Normal 0-1 [facility] Comment on above: Order Comment: 517-2 Performed By: #### L 400.0001, L500.2500, L100.0100, M100.2200 #### [facility] [address] [place], [address] Eosinophils/100 WBC (Bld) 2.5 % Normal 0-5 [facility] Comment on above: Order Comment: 517-2 Performed By: #### L 400.0001, L500.2500, L100.0100, M100.2200 #### [facility] [address] [place], [address] Erythrocyte distribution width (RBC) [Ratio] 16.2 % High 11.6-14.6 [facility] Comment on above: Order Comment: 517-2 Performed By: #### L 400.0001, L500.2500, L100.0100, M100.2200 #### [facility] [address] [place], [address] Hematocrit (Bld) [Volume fraction] 32.1 % Low 37-47 [facility] Comment on above: Order Comment: 517-2 Performed By: #### L 400.0001, L500.2500, L100.0100, M100.2200 #### [facility] [address] [place], [address] Hemoglobin (Bld) [Mass/Vol] 9.9 g/dL Low 12.0-15.0 [facility] Comment on above: Order Comment: 517-2 Performed By: #### L 400.0001, L500.2500, L100.0100, M100.2200 #### [facility] [address] [place], [address] IG% 0.400 Normal 0.0-0.9 [facility] Comment on above: Order Comment: 517-2 Result Comment: IG% - Immature Granulocytes (promyelocytes, myelocytes and metamyelocytes) > 1% indicates that a LEFT SHIFT is Present. Performed By: #### L 400.0001, L500.2500, L100.0100, M100.2200 #### [facility] [address] [place], [address] Lymphocytes/100 WBC (Bld) 30.2 % Normal 19-41 [facility] Comment on above: Order Comment: 517-2 Performed By: #### L 400.0001, L500.2500, L100.0100, M100.2200 #### [facility] [address] [place], [address] MCH (RBC) [Entitic mass] 25.7 pg Low 27.0-32.0 [facility] Comment on above: Order Comment: 517-2 Performed By: #### L 400.0001, L500.2500, L100.0100, M100.2200 #### [facility] [address] [place], [address] MCHC (RBC) [Mass/Vol] 30.8 g/dL Low 32-36 [facility] Comment on above: Order Comment: 517-2 Performed By: #### L 400.0001, L500.2500, L100.0100, M100.2200 #### [facility] [address] [place], [address] MCV (RBC) [Entitic vol] 83.4 fL Normal 81-99 [facility] Comment on above: Order Comment: 517-2 Performed By: #### L 400.0001, L500.2500, L100.0100, M100.2200 #### [facility] [address] [place], [address] Monocytes/100 WBC (Bld) 6.8 % Normal 0-10 [facility] Comment on above: Order Comment: 517-2 Performed By: #### L 400.0001, L500.2500, L100.0100, M100.2200 #### [facility] [address] [place], [address] Neutrophils/100 WBC (Bld) 59.6 % Normal 47-70 [facility] Comment on above: Order Comment: 517-2 Performed By: #### L 400.0001, L500.2500, L100.0100, M100.2200 #### [facility] [address] [place], [address] Nucleated RBC (Bld) [#/Vol] 0 10*3/uL Normal 0-5 [facility] Comment on above: Order Comment: 517-2 Performed By: #### L 400.0001, L500.2500, L100.0100, M100.2200 #### [facility] [address] [place], [address] Platelet mean volume (Bld) [Entitic vol] 9.2 fL Normal 6.2-12.0 [facility] Comment on above: Order Comment: 517-2 Performed By: #### L 400.0001, L500.2500, L100.0100, M100.2200 #### [facility] [address] [place], [address] Platelets (Bld) [#/Vol] 338 10*3/uL Normal 150-450 [facility] Comment on above: Order Comment: 517-2 Performed By: #### L 400.0001, L500.2500, L100.0100, M100.2200 #### [facility] [address] [place], [address] RBC (Bld) [#/Vol] 3.85 10*6/uL Low 4.2-5.4 [facility] Comment on above: Order Comment: 517-2 Performed By: #### L 400.0001, L500.2500, L100.0100, M100.2200 #### [facility] [address] [place], [address] RDW SD 48.8 fl High 35.1-43.9 [facility] Comment on above: Order Comment: 517-2 Performed By: #### L 400.0001, L500.2500, L100.0100, M100.2200 #### [facility] [address] [place], [address] WBC (Bld) [#/Vol] 9.5 10*3/uL Normal 4.4-11.0 [facility] Comment on above: Order Comment: 517-2 Performed By: #### L 400.0001, L500.2500, L100.0100, M100.2200 #### [facility] [address] [place], [address] Carbon dioxide measurementOr dered By: Kori Sethi on 07-14-2024 CO2 [Moles/Vol] 32.0 mmol/L 21.0-32.0 [facility] Chloride measurementOrdered By: Kori Sethi on 07-14-2024 Chloride [Moles/Vol] 102 mmol/L 98-107 [facility] Comprehensive Metabolic Prof ilon 07-14-2024 Albumin [Mass/Vol] 2.8 g/dL Low 3.2-5.0 [facility] Comment on above: Order Comment: 517-2 Performed By: #### L 400.0001, L500.2500, L100.0100, M100.2200 #### [facility] [address] [place], [address] Albumin/Globulin [Mass ratio] 0.6 {ratio} Low 0.9-2.4 [facility] Comment on above: Order Comment: 517-2 Performed By: #### L 400.0001, L500.2500, L100.0100, M100.2200 #### [facility] [address] [place], [address] ALK P 86 U/L Normal 45-117 [facility] Comment on above: Order Comment: 517-2 Performed By: #### L 400.0001, L500.2500, L100.0100, M100.2200 #### [facility] [address] [place], [address] ALT [Catalytic activity/Vol] 15 U/L Normal 13-56 [facility] Comment on above: Order Comment: 517-2 Performed By: #### L 400.0001, L500.2500, L100.0100, M100.2200 #### [facility] [address] [place], [address] AST [Catalytic activity/Vol] 8 U/L Low 15-37 [facility] Comment on above: Order Comment: 517-2 Performed By: #### L 400.0001, L500.2500, L100.0100, M100.2200 #### [facility] [address] [place], [address] Bilirubin [Mass/Vol] 0.20 mg/dL Normal 0.20-1.00 [facility] Comment on above: Order Comment: 517-2 Result Comment: For patients on eltrombopag therapy, use of Dimension [place] TBIL is not recommended. Performed By: #### L 400.0001, L500.2500, L100.0100, M100.2200 #### [facility] [address] [place], [address] BUN/CRE 43.2 RATIO High 10-20 [facility] Comment on above: Order Comment: 517-2 Performed By: #### L 400.0001, L500.2500, L100.0100, M100.2200 #### [facility] [address] [place], [address] CA,Total 8.6 mg/dL Normal 8.5-10.1 [facility] Comment on above: Order Comment: 517-2 Performed By: #### L 400.0001, L500.2500, L100.0100, M100.2200 #### [facility] [address] [place], [address] Chloride [Moles/Vol] 102 mmol/L Normal 98-107 [facility] Comment on above: Order Comment: 517-2 Performed By: #### L 400.0001, L500.2500, L100.0100, M100.2200 #### [facility] [address] [place], [address] CO2 [Moles/Vol] 32.0 mmol/L Normal 21.0-32.0 [facility] Comment on above: Order Comment: 517-2 Performed By: #### L 400.0001, L500.2500, L100.0100, M100.2200 #### [facility] [address] [place], [address] Creatinine [Mass/Vol] 0.32 mg/dL Low 0.55-1.02 [facility] Comment on above: Order Comment: 517-2 Result Comment: The validity of the calculated GFR GFRAA in patients over 70 years has not been determined. Clinical correlation is essential. Performed By: #### L 400.0001, L500.2500, L100.0100, M100.2200 #### [facility] [address] [place], [address] EST GFR - AA 277 mL/min Normal >60 [facility] Comment on above: Order Comment: - Result Comment: Afri can Dutch GFR Calc Performed By: #### L 400.0001, L500.2500, L100.0100, M100.2200 #### [facility] [address] [place], [address] GAP 4 Low 5-15 [facility] Comment on above: Order Comment: -2 Performed By: #### L 400.0001, L500.2500, L100.0100, M100.2200 #### [facility] [address] [place], [address] GFR/1.73 sq M.predicted among non-blacks MDRD (S/P/Bld) [Vol rate/Area] 229 mL/min/{1.73_m2} Normal >60 [facility] Comment on above: Order Comment: Result Comment: Non- GFR Calc Performed By: #### L 400.0001, L500.2500, L100.0100, M100.2200 #### [facility] [address] [place], [address] Globulin (S) [Mass/Vol] 4.5 g/dL High 2.2-4.2 [facility] Comment on above: Order Comment: -2 Performed By: #### L 400.0001, L500.2500, L100.0100, M100.2200 #### [facility] [address] [place], [address] Glucose [Mass/Vol] 105 mg/dL Normal 74-106 [facility] Comment on above: Order Comment: 517-2 Result Comment: Fast ing Glucose result from 100 to 125 mg/dL suggests IMPAIRED HOMEOSTASIS per A.D.A. criteria. Performed By: #### L 400.0001, L500.2500, L100.0100, M100.2200 #### [facility] [address] [place], [address] Potassium [Moles/Vol] 3.8 mmol/L Normal 3.5-5.1 [facility] Comment on above: Order Comment: 517-2 Performed By: #### L 400.0001, L500.2500, L100.0100, M100.2200 #### [facility] [address] [place], [address] Sodium [Moles/Vol] 137 mmol/L Normal 136-145 [facility] Comment on above: Order Comment: 517-2 Performed By: #### L 400.0001, L500.2500, L100.0100, M100.2200 #### [facility] [address] [place], [address] T PROT 7.3 g/dL Normal 6.4-8.2 [facility] Comment on above: Order Comment: 517-2 Performed By: #### L 400.0001, L500.2500, L100.0100, M100.2200 #### [facility] [address] [place], [address] Urea nitrogen [Mass/Vol] 14 mg/dL Normal 7-18 [facility] Comment on above: Order Comment: 517-2 Performed By: #### L 400.0001, L500.2500, L100.0100, M100.2200 #### [facility] [address] [place], [address] Eosinophil percentageOrdered By: Kori Sethi on 07-14-2024 Eosinophils/100 WBC (Bld) 2.5 % 0-5 [facility] Erythrocyte distribution wid th (RBC) [Ratio]Ordered By: Kori Sethi on 07-14-2024 Erythrocyte distribution width (RBC) [Entitic vol] 48.8 fL High 35.1-43.9 [facility] Erythrocyte distribution wid th ratioOrdered By: Kori Sethi on 07-14-2024 Erythrocyte distribution width (RBC) [Ratio] 16.2 % High 11.6-14.6 [facility] Erythrocyte distribution wid th standard deviationOrdered By: Kori Sethi on 07-14-2024 Erythrocyte distribution width (RBC) [Ratio] 48.8 fl High 35.1-43.9 [facility] Estimated glomerular filtrat ion rate (GFR) AmericanOrdered By: Kori Sethi on 07-14-2024 Estimated GFR (MDRD) Amer 277 mL/min >60 [facility] Comment on above: GFR Calc Glomerular filtration rate ( GFR) estimationOrdered By: Kori Sethi on 07-14-2024 Estimated GFR (MDRD) Non-Af Amer 229 mL/min >60 [facility] Comment on above: Non- GFR Calc GFR/1.73 sq M.predicted among non-blacks MDRD (S/P/Bld) [Vol rate/Area] 229 mL/min/{1.73_m2} >60 [facility] Comment on above: Non- GFR Calc Glucose measurementOrdered B y: Kori Sethi on 07-14-2024 Glucose [Mass/Vol] 105 mg/dL 74-106 [facility] Comment on above: Fasting Glucose resu lt from 100 to 125 mg/dL suggests IMPAIRED HOMEOSTASIS per A.D.A. criteria. Hematocrit Auto (Bld) [Volum e fraction]Ordered By: Kori Sethi on 07-14-2024 Hematocrit (Bld) [Volume fraction] 32.1 % Low 37-47 [facility] Hemoglobin measurementOrdere d By: Kori Sethi on 07-14-2024 Hemoglobin (Bld) [Mass/Vol] 9.9 g/dL Low 12.0-15.0 [facility] Immature granulocytes/100 WB C Auto (Bld)Ordered By: Kori Sethi on 07-14-2024 Immature granulocytes/100 WBC (Bld) 0.400 % 0.0-0.9 [facility] Comment on above: IG% - Immature Granu locytes (promyelocytes, myelocytes and metamyelocytes) > 1% indicates that a LEFT SHIFT is Present. Laboratory - Chemistry and C hemistry - challengeOrdered By: Kori Sethi on 07-14-2024 AST [Catalytic activity/Vol] 8 U/L Low 15-37 [facility] Lymphocytes Auto (Unsp spec) [#/Vol]Ordered By: Kori Sethi on 07-14-2024 Lymphocytes (Bld) [#/Vol] 2.86 10*3/uL 0.83-4.51 [facility] Lymphocytes/100 WBC Auto (Un sp spec)Ordered By: Kori Sethi on 07-14-2024 Lymphocytes/100 WBC (Bld) 30.2 % 19-41 [facility] MCV (mean corpuscular volume ) determinationOrdered By: Kori Sethi on 07-14-2024 MCV (RBC) [Entitic vol] 83.4 fL 81-99 [facility] Mean corpuscular hemoglobin (MCH) determinationOrdered By: Kori Sethi on 07-14-2024 MCH (RBC) [Entitic mass] 25.7 pg Low 27.0-32.0 [facility] Mean corpuscular hemoglobin concentration (MCHC) determinationOrdered By: Kori Sethi on 07-14-2024 MCHC (RBC) [Mass/Vol] 30.8 g/dL Low 32-36 [facility] Mean platelet volume determi nationOrdered By: Kori Sethi on 07-14-2024 Platelet mean volume (Bld) [Entitic vol] 9.2 fL 6.2-12.0 [facility] Monocyte percentageOrdered B y: Kori Sethi on 07-14-2024 Monocytes/100 WBC (Bld) 6.8 % 0-10 [facility] Neutrophil percentageOrdered By: Kori Sethi on 07-14-2024 Neutrophils/100 WBC (Bld) 59.6 % 47-70 [facility] Nucleated red blood cell per centageOrdered By: Kori Sethi on 07-14-2024 Nucleated RBC/100 WBC (Bld) [Ratio] 0 % 0-5 [facility] Platelet countOrdered By: Edenilson Sethi on 07-14-2024 Platelets (Bld) [#/Vol] 338 10*3/uL 150-450 [facility] Potassium measurementOrdered By: Kori Sethi on 07-14-2024 Potassium [Moles/Vol] 3.8 mmol/L 3.5-5.1 [facility] RBC Auto (Bld) [#/Vol]Ordere d By: Kori Sethi on 07-14-2024 RBC (Bld) [#/Vol] 3.85 10*6/uL Low 4.2-5.4 [facility] Serum anion gap measurementO rdered By: Kori Sethi on 07-14-2024 Anion gap [Moles/Vol] 4 mmol/L Low 5-15 [facility] Serum globulin measurementOr dered By: Kori Sethi on 07-14-2024 Globulin (S) [Mass/Vol] 4.5 g/dL High 2.2-4.2 [facility] Serum or plasma alanine lyon otransferase (ALT) measurementOrdered By: Kori Sethi on 07-14-2024 ALT [Catalytic activity/Vol] 15 U/L 13-56 [facility] Serum or plasma albumin miguel angel urement (mass/volume)Ordered By: Kori Sethi on 07-14-2024 Albumin [Mass/Vol] 2.8 g/dL Low 3.2-5.0 [facility] Serum or plasma alkaline raghu sphatase measurementOrdered By: Kori Sethi on 07-14-2024 ALP [Catalytic activity/Vol] 86 U/L 45-117 [facility] Serum or plasma calcium miguel angel urement (mass/volume)Ordered By: Kori Sethi on 07-14-2024 Calcium [Mass/Vol] 8.6 mg/dL 8.5-10.1 [facility] Serum or plasma creatinine m easurement (mass/volume)Ordered By: Kori Sethi on 07-14-2024 Creatinine [Mass/Vol] 0.32 mg/dL Low 0.55-1.02 [facility] Comment on above: The validity of the calculated GFR & GFRAA in patients over 70 years has not been determined. Clinical correlation is essential. Serum or plasma urea nitroge n measurement (mass/volume)Ordered By: Kori Sethi on 07-14-2024 Urea nitrogen [Mass/Vol] 14 mg/dL 7-18 [facility] Sodium levelOrdered By: Bailey Sethi on 07-14-2024 Sodium [Moles/Vol] 137 mmol/L 136-145 [facility] Total proteinOrdered By: Shavonne Sethi on 07-14-2024 Protein [Mass/Vol] 7.3 g/dL 6.4-8.2 [facility] White blood cell (WBC) count Ordered By: Korijonathan Sethi on 07-14-2024 WBC (Bld) [#/Vol] 9.5 10*3/uL 4.4-11.0 [facility] Urine Cultureon 07-09-2024 [facility] Providencia stuartii [place] Count >100,000 Escherichia coli Escherichia coli EFAC [place] Count >100,000 Enterococcus faecalis Ampicillin Islt SUNG [...] R Vancomycin Islt SUNG 1 S Normal [facility] Comment on above: Performed By: #### L 400.0001, L500.2500, L100.0100, M100.2200 #### [facility] [address] [place], [address] Absolute lymphocyte countOrd ered By: Kori Sethi on 07-07-2024 Lymphocytes Auto (Unsp spec) [#/Vol] 3.08 10*3/uL 0.83-4.51 [facility] Absolute neutrophil countOrd ered By: Korijonathan Sethi on 07-07-2024 Neutrophils (Bld) [#/Vol] 5.3 10*3/uL 2.0-7.7 [facility] Albumin to globulin ratioOrd ered By: Kori Sethi on 07-07-2024 Albumin/Globulin [Mass ratio] 0.6 {ratio} Low 0.9-2.4 [facility] Automated lymphocyte count a s percentage of total leukocytesOrdered By: Kori Sethi on 07-07-2024 Lymphocytes/100 WBC Auto (Unsp spec) 32.7 % 19-41 [facility] Basophil percentageOrdered B y: Kori Sethi on 07-07-2024 Basophils/100 WBC (Bld) 0.5 % 0-1 [facility] Bilirubin, totalOrdered By: Kori Sethi on 07-07-2024 Bilirubin [Mass/Vol] 0.20 mg/dL 0.20-1.00 [facility] Comment on above: For patients on eltr ombopag therapy, use of Dimension [place] TBIL is not recommended. Blood urea nitrogen (BUN)/cr eatinine ratioOrdered By: Kori Sethi on 07-07-2024 Urea nitrogen/Creatinine [Mass ratio] 52.6 mg/mg High 10-20 [facility] CBC W/Diff, Automatedon 06-15 Absolute Lymph 3.08 X10 3/uL Normal 0.83-4.51 [facility] Comment on above: Order Comment: 517-2 Performed By: #### L 500.4050, L503.0105, L506.1000, L100.0100, L500.4100, L501.9520 #### [facility] [address] [place], [address] Absolute Neut 5.3 X10 3/uL Normal 2.0-7.7 [facility] Comment on above: Order Comment: 517-2 Performed By: #### L 500.4050, L503.0105, L506.1000, L100.0100, L500.4100, L501.9520 #### [facility] [address] [place], [address] Basophils/100 WBC (Bld) 0.5 % Normal 0-1 [facility] Comment on above: Order Comment: 517-2 Performed By: #### L 500.4050, L503.0105, L506.1000, L100.0100, L500.4100, L501.9520 #### [facility] [address] [place], [address] Eosinophils/100 WBC (Bld) 0.9 % Normal 0-5 [facility] Comment on above: Order Comment: 517-2 Performed By: #### L 500.4050, L503.0105, L506.1000, L100.0100, L500.4100, L501.9520 #### [facility] [address] [place], [address] Erythrocyte distribution width (RBC) [Ratio] 15.7 % High 11.6-14.6 [facility] Comment on above: Order Comment: 517-2 Performed By: #### L 500.4050, L503.0105, L506.1000, L100.0100, L500.4100, L501.9520 #### [facility] [address] [place], [address] Hematocrit (Bld) [Volume fraction] 33.2 % Low 37-47 [facility] Comment on above: Order Comment: 517-2 Performed By: #### L 500.4050, L503.0105, L506.1000, L100.0100, L500.4100, L501.9520 #### [facility] [address] [place], [address] Hemoglobin (Bld) [Mass/Vol] 10.2 g/dL Low 12.0-15.0 [facility] Comment on above: Order Comment: 517-2 Performed By: #### L 500.4050, L503.0105, L506.1000, L100.0100, L500.4100, L501.9520 #### [facility] [address] [facility] [place], [address] IG% 0.300 Normal 0.0-0.9 [facility] Comment on above: Order Comment: 517-2 Result Comment: IG% - Immature Granulocytes (promyelocytes, myelocytes and metamyelocytes) > 1% indicates that a LEFT SHIFT is Present. Performed By: #### L 500.4050, L503.0105, L506.1000, L100.0100, L500.4100, L501.9520 #### [facility] [address] [place], [address] Lymphocytes/100 WBC (Bld) 32.7 % Normal 19-41 [facility] Comment on above: Order Comment: 517-2 Performed By: #### L 500.4050, L503.0105, L506.1000, L100.0100, L500.4100, L501.9520 #### [facility] [address] [place], [address] MCH (RBC) [Entitic mass] 25.5 pg Low 27.0-32.0 [facility] Comment on above: Order Comment: 517-2 Performed By: #### L 500.4050, L503.0105, L506.1000, L100.0100, L500.4100, L501.9520 #### [facility] [address] [place], [address] MCHC (RBC) [Mass/Vol] 30.7 g/dL Low 32-36 [facility] Comment on above: Order Comment: 517-2 Performed By: #### L 500.4050, L503.0105, L506.1000, L100.0100, L500.4100, L501.9520 #### [facility] [address] [place], [address] MCV (RBC) [Entitic vol] 83.0 fL Normal 81-99 [facility] Comment on above: Order Comment: 517-2 Performed By: #### L 500.4050, L503.0105, L506.1000, L100.0100, L500.4100, L501.9520 #### [facility] [address] [place], [address] Monocytes/100 WBC (Bld) 9.4 % Normal 0-10 [facility] Comment on above: Order Comment: 517-2 Performed By: #### L 500.4050, L503.0105, L506.1000, L100.0100, L500.4100, L501.9520 #### [facility] [address] [place], [address] Neutrophils/100 WBC (Bld) 56.2 % Normal 47-70 [facility] Comment on above: Order Comment: 517-2 Performed By: #### L 500.4050, L503.0105, L506.1000, L100.0100, L500.4100, L501.9520 #### [facility] [address] [place], [address] Nucleated RBC (Bld) [#/Vol] 0 10*3/uL Normal 0-5 [facility] Comment on above: Order Comment: 517-2 Performed By: #### L 500.4050, L503.0105, L506.1000, L100.0100, L500.4100, L501.9520 #### [facility] [address] [place], [address] Platelet mean volume (Bld) [Entitic vol] 9.5 fL Normal 6.2-12.0 [facility] Comment on above: Order Comment: 517-2 Performed By: #### L 500.4050, L503.0105, L506.1000, L100.0100, L500.4100, L501.9520 #### [facility] [address] [place], [address] Platelets (Bld) [#/Vol] 359 10*3/uL Normal 150-450 [facility] Comment on above: Order Comment: 517-2 Performed By: #### L 500.4050, L503.0105, L506.1000, L100.0100, L500.4100, L501.9520 #### [facility] [address] [place], [address] RBC (Bld) [#/Vol] 4.00 10*6/uL Low 4.2-5.4 [facility] Comment on above: Order Comment: 517-2 Performed By: #### L 500.4050, L503.0105, L506.1000, L100.0100, L500.4100, L501.9520 #### [facility] [address] [place], [address] RDW SD 47.6 fl High 35.1-43.9 [facility] Comment on above: Order Comment: 517-2 Performed By: #### L 500.4050, L503.0105, L506.1000, L100.0100, L500.4100, L501.9520 #### [facility] [address] [place], [address] WBC (Bld) [#/Vol] 9.4 10*3/uL Normal 4.4-11.0 [facility] Comment on above: Order Comment: 517-2 Performed By: #### L 500.4050, L503.0105, L506.1000, L100.0100, L500.4100, L501.9520 #### [facility] [address] [place], [address] Carbon dioxide measurementOr dered By: Kori Sethi on 07-07-2024 CO2 [Moles/Vol] 32.0 mmol/L 21.0-32.0 [facility] Chloride measurementOrdered By: Kori Sethi on 07-07-2024 Chloride [Moles/Vol] 101 mmol/L 98-107 [facility] Comprehensive Metabolic Prof ilon 07-07-2024 Albumin [Mass/Vol] 3.0 g/dL Low 3.2-5.0 [facility] Comment on above: Order Comment: 517-2 Performed By: #### L 500.4050, L503.0105, L506.1000, L100.0100, L500.4100, L501.9520 #### [facility] [address] [place], [address] Albumin/Globulin [Mass ratio] 0.6 {ratio} Low 0.9-2.4 [facility] Comment on above: Order Comment: 517-2 Performed By: #### L 500.4050, L503.0105, L506.1000, L100.0100, L500.4100, L501.9520 #### [facility] [address] [place], [address] ALK P 86 U/L Normal 45-117 [facility] Comment on above: Order Comment: 517-2 Performed By: #### L 500.4050, L503.0105, L506.1000, L100.0100, L500.4100, L501.9520 #### [facility] [address] [place], [address] ALT [Catalytic activity/Vol] 15 U/L Normal 13-56 [facility] Comment on above: Order Comment: 517-2 Performed By: #### L 500.4050, L503.0105, L506.1000, L100.0100, L500.4100, L501.9520 #### [facility] [address] [place], [address] AST [Catalytic activity/Vol] 10 U/L Low 15-37 [facility] Comment on above: Order Comment: 517-2 Performed By: #### L 500.4050, L503.0105, L506.1000, L100.0100, L500.4100, L501.9520 #### [facility] [address] [place], [address] Bilirubin [Mass/Vol] 0.20 mg/dL Normal 0.20-1.00 [facility] Comment on above: Order Comment: 517-2 Result Comment: For patients on eltrombopag therapy, use of Dimension [place] TBIL is not recommended. Performed By: #### L 500.4050, L503.0105, L506.1000, L100.0100, L500.4100, L501.9520 #### [facility] [address] [place], [address] BUN/CRE 52.6 RATIO High 10-20 [facility] Comment on above: Order Comment: 517-2 Performed By: #### L 500.4050, L503.0105, L506.1000, L100.0100, L500.4100, L501.9520 #### [facility] [address] [place], [address] CA,Total 9.0 mg/dL Normal 8.5-10.1 [facility] Comment on above: Order Comment: 517-2 Performed By: #### L 500.4050, L503.0105, L506.1000, L100.0100, L500.4100, L501.9520 #### [facility] [address] [place], [address] Chloride [Moles/Vol] 101 mmol/L Normal 98-107 [facility] Comment on above: Order Comment: 517-2 Performed By: #### L 500.4050, L503.0105, L506.1000, L100.0100, L500.4100, L501.9520 #### [facility] [address] [place], [address] CO2 [Moles/Vol] 32.0 mmol/L Normal 21.0-32.0 [facility] Comment on above: Order Comment: 517-2 Performed By: #### L 500.4050, L503.0105, L506.1000, L100.0100, L500.4100, L501.9520 #### [facility] [address] [place], [address] Creatinine [Mass/Vol] 0.34 mg/dL Low 0.55-1.02 [facility] Comment on above: Order Comment: -2 Result Comment: The validity of the calculated GFR GFRAA in patients over 70 years has not been determined. Clinical correlation is essential. Performed By: #### L 500.4050, L503.0105, L506.1000, L100.0100, L500.4100, L501.9520 #### [facility] [address] [place], [address] EST GFR - AA 260 mL/min Normal >60 [facility] Comment on above: Order Comment: -2 Result Comment: Afri can Dutch GFR Calc Performed By: #### L 500.4050, L503.0105, L506.1000, L100.0100, L500.4100, L501.9520 #### [facility] [address] [place], [address] GAP 5 Normal 5-15 [facility] Comment on above: Order Comment: 517-2 Performed By: #### L 500.4050, L503.0105, L506.1000, L100.0100, L500.4100, L501.9520 #### [facility] [address] [place], [address] GFR/1.73 sq M.predicted among non-blacks MDRD (S/P/Bld) [Vol rate/Area] 215 mL/min/{1.73_m2} Normal >60 [facility] Comment on above: Order Comment: 517-2 Result Comment: Non- GFR Calc Performed By: #### L 500.4050, L503.0105, L506.1000, L100.0100, L500.4100, L501.9520 #### [facility] [address] [place], [address] Globulin (S) [Mass/Vol] 4.8 g/dL High 2.2-4.2 [facility] Comment on above: Order Comment: 517-2 Performed By: #### L 500.4050, L503.0105, L506.1000, L100.0100, L500.4100, L501.9520 #### [facility] [address] [place], [address] Glucose [Mass/Vol] 102 mg/dL Normal 74-106 [facility] Comment on above: Order Comment: 517-2 Result Comment: Fast ing Glucose result from 100 to 125 mg/dL suggests IMPAIRED HOMEOSTASIS per A.D.A. criteria. Performed By: #### L 500.4050, L503.0105, L506.1000, L100.0100, L500.4100, L501.9520 #### [facility] [address] [place], [address] Potassium [Moles/Vol] 4.0 mmol/L Normal 3.5-5.1 [facility] Comment on above: Order Comment: 517-2 Performed By: #### L 500.4050, L503.0105, L506.1000, L100.0100, L500.4100, L501.9520 #### [facility] [address] [place], [address] Sodium [Moles/Vol] 138 mmol/L Normal 136-145 [facility] Comment on above: Order Comment: 517-2 Performed By: #### L 500.4050, L503.0105, L506.1000, L100.0100, L500.4100, L501.9520 #### [facility] [address] [place], [address] T PROT 7.8 g/dL Normal 6.4-8.2 [facility] Comment on above: Order Comment: 517-2 Performed By: #### L 500.4050, L503.0105, L506.1000, L100.0100, L500.4100, L501.9520 #### [facility] [address] [place], [address] Urea nitrogen [Mass/Vol] 18 mg/dL Normal 7-18 [facility] Comment on above: Order Comment: 517-2 Performed By: #### L 500.4050, L503.0105, L506.1000, L100.0100, L500.4100, L501.9520 #### [facility] [address] [place], [address] Eosinophil percentageOrdered By: Kori Sethi on 07-07-2024 Eosinophils/100 WBC (Bld) 0.9 % 0-5 [facility] Erythrocyte distribution wid th (RBC) [Ratio]Ordered By: Kori Sethi on 07-07-2024 Erythrocyte distribution width (RBC) [Entitic vol] 47.6 fL High 35.1-43.9 [facility] Erythrocyte distribution wid th ratioOrdered By: Kori Sethi on 07-07-2024 Erythrocyte distribution width (RBC) [Ratio] 15.7 % High 11.6-14.6 [facility] Erythrocyte distribution wid th standard deviationOrdered By: Kori Sethi on 07-07-2024 Erythrocyte distribution width (RBC) [Ratio] 47.6 fl High 35.1-43.9 [facility] Estimated glomerular filtrat ion rate (GFR) AmericanOrdered By: Kori Sethi on 07-07-2024 Estimated GFR (MDRD) Amer 260 mL/min >60 [facility] Comment on above: GFR Calc Glomerular filtration rate ( GFR) estimationOrdered By: Kori Sethi on 07-07-2024 Estimated GFR (MDRD) Non-Af Amer 215 mL/min >60 [facility] Comment on above: Non- GFR Calc GFR/1.73 sq M.predicted among non-blacks MDRD (S/P/Bld) [Vol rate/Area] 215 mL/min/{1.73_m2} >60 [facility] Comment on above: Non- GFR Calc Glucose measurementOrdered B y: Kori Sethi on 07-07-2024 Glucose [Mass/Vol] 102 mg/dL 74-106 [facility] Comment on above: Fasting Glucose resu lt from 100 to 125 mg/dL suggests IMPAIRED HOMEOSTASIS per A.D.A. criteria. Hematocrit Auto (Bld) [Volum e fraction]Ordered By: Kori Stehi on 07-07-2024 Hematocrit (Bld) [Volume fraction] 33.2 % Low 37-47 [facility] Hemoglobin measurementOrdere d By: Kori Sethi on 07-07-2024 Hemoglobin (Bld) [Mass/Vol] 10.2 g/dL Low 12.0-15.0 [facility] Immature granulocytes/100 WB C Auto (Bld)Ordered By: Kori Sethi on 07-07-2024 Immature granulocytes/100 WBC (Bld) 0.300 % 0.0-0.9 [facility] Comment on above: IG% - Immature Granu locytes (promyelocytes, myelocytes and metamyelocytes) > 1% indicates that a LEFT SHIFT is Present. Laboratory - Chemistry and C hemistry - challengeOrdered By: Kori Sethi on 07-07-2024 AST [Catalytic activity/Vol] 10 U/L Low 15-37 [facility] Lymphocytes Auto (Unsp spec) [#/Vol]Ordered By: Kori Sethi on 07-07-2024 Lymphocytes (Bld) [#/Vol] 3.08 10*3/uL 0.83-4.51 [facility] Lymphocytes/100 WBC Auto (Un sp spec)Ordered By: Kori Sethi on 07-07-2024 Lymphocytes/100 WBC (Bld) 32.7 % 19-41 [facility] MCV (mean corpuscular volume ) determinationOrdered By: Kori Sethi on 07-07-2024 MCV (RBC) [Entitic vol] 83.0 fL 81-99 [facility] Mean corpuscular hemoglobin (MCH) determinationOrdered By: Kori Sethi on 07-07-2024 MCH (RBC) [Entitic mass] 25.5 pg Low 27.0-32.0 [facility] Mean corpuscular hemoglobin concentration (MCHC) determinationOrdered By: Kori Sethi on 07-07-2024 MCHC (RBC) [Mass/Vol] 30.7 g/dL Low 32-36 [facility] Mean platelet volume determi nationOrdered By: Kori Sethi on 07-07-2024 Platelet mean volume (Bld) [Entitic vol] 9.5 fL 6.2-12.0 [facility] Monocyte percentageOrdered B y: Kori Sethi on 07-07-2024 Monocytes/100 WBC (Bld) 9.4 % 0-10 [facility] Neutrophil percentageOrdered By: Kori Sethi on 07-07-2024 Neutrophils/100 WBC (Bld) 56.2 % 47-70 [facility] Nucleated red blood cell per centageOrdered By: Kori Sethi on 07-07-2024 Nucleated RBC/100 WBC (Bld) [Ratio] 0 % 0-5 [facility] Platelet countOrdered By: Edenilson Sethi on 07-07-2024 Platelets (Bld) [#/Vol] 359 10*3/uL 150-450 [facility] Potassium measurementOrdered By: Kori Sethi on 07-07-2024 Potassium [Moles/Vol] 4.0 mmol/L 3.5-5.1 [facility] RBC Auto (Bld) [#/Vol]Ordere d By: Kori Sethi on 07-07-2024 RBC (Bld) [#/Vol] 4.00 10*6/uL Low 4.2-5.4 [facility] Serum anion gap measurementO rdered By: Kori Sethi on 07-07-2024 Anion gap [Moles/Vol] 5 mmol/L 5-15 [facility] Serum globulin measurementOr dered By: Kori Sethi on 07-07-2024 Globulin (S) [Mass/Vol] 4.8 g/dL High 2.2-4.2 [facility] Serum or plasma alanine lyon otransferase (ALT) measurementOrdered By: Kori Sethi on 07-07-2024 ALT [Catalytic activity/Vol] 15 U/L 13-56 [facility] Serum or plasma albumin miguel angel urement (mass/volume)Ordered By: Kori Sethi on 07-07-2024 Albumin [Mass/Vol] 3.0 g/dL Low 3.2-5.0 [facility] Serum or plasma alkaline raghu sphatase measurementOrdered By: Kori Sethi on 07-07-2024 ALP [Catalytic activity/Vol] 86 U/L 45-117 [facility] Serum or plasma calcium miguel angel urement (mass/volume)Ordered By: Kori Sethi on 07-07-2024 Calcium [Mass/Vol] 9.0 mg/dL 8.5-10.1 [facility] Serum or plasma creatinine m easurement (mass/volume)Ordered By: Kori Sethi on 07-07-2024 Creatinine [Mass/Vol] 0.34 mg/dL Low 0.55-1.02 [facility] Comment on above: The validity of the calculated GFR & GFRAA in patients over 70 years has not been determined. Clinical correlation is essential. Serum or plasma urea nitroge n measurement (mass/volume)Ordered By: Kori Sethi on 07-07-2024 Urea nitrogen [Mass/Vol] 18 mg/dL 7-18 [facility] Sodium levelOrdered By: Bailey Sethi on 07-07-2024 Sodium [Moles/Vol] 138 mmol/L 136-145 [facility] Total proteinOrdered By: Shavonne Sethi on 07-07-2024 Protein [Mass/Vol] 7.8 g/dL 6.4-8.2 [facility] White blood cell (WBC) count Ordered By: Kori Sethi on 07-07-2024 WBC (Bld) [#/Vol] 9.4 10*3/uL 4.4-11.0 [facility] Urinalysis, Completeon 07-06 BACTERIA 1+ /hpf Normal None Seen [facility] Comment on above: Order Comment: NORMA TER SPECIMEN Performed By: #### L 400.0001, L500.2500, L100.0100, M100.2200 #### [facility] [address] [place], [address] CA OX CRYSTAL 2+ /hpf Normal [facility] Comment on above: Order Comment: NORMA TER SPECIMEN Performed By: #### L 400.0001, L500.2500, L100.0100, M100.2200 #### [facility] [address] [place], [address] RBC 0-5 SEEN Normal 0-5 [facility] Comment on above: Order Comment: NORMA TER SPECIMEN Performed By: #### L 400.0001, L500.2500, L100.0100, M100.2200 #### [facility] [address] [place], [address] TRIPLE PHOS 1+ /hpf Normal [facility] Comment on above: Order Comment: NORMA TER SPECIMEN Performed By: #### L 400.0001, L500.2500, L100.0100, M100.2200 #### [facility] [address] [place], [address] WBC 25-50 SEEN Normal 0-5 [facility] Comment on above: Order Comment: NORMA TER SPECIMEN Performed By: #### L 400.0001, L500.2500, L100.0100, M100.2200 #### [facility] [address] [place], [address] EPI,SQUAMOUS 0 SEEN Normal 5-10 [facility] Comment on above: Order Comment: NORMA TER SPECIMEN Performed By: #### L 400.0001, L500.2500, L100.0100, M100.2200 #### [facility] [address] [place], [address] Mucus Ql (Urine sed) 0 SEEN Normal [facility] Comment on above: Order Comment: NORMA TER SPECIMEN Performed By: #### L 400.0001, L500.2500, L100.0100, M100.2200 #### [facility] [address] [place], [address] Bilirubin Test strip Ql (U)O rdered By: Kori Sethi on 07-05-2024 Bilirubin Ql (U) Negative Negative [facility] Calcium oxalate crystals LM Ql (Urine sed)Ordered By: Kori Sethi on 07-05-2024 Urine Calcium Oxalate Crystals 2+ /hpf [facility] Calcium oxalate crystals det ection in urine sediment by light microscopyOrdered By: Kori Sethi on 07-05-2024 Calcium oxalate crystals LM Ql (Urine sed) 2+ /hpf [facility] Epithelial cells.squamous LM Ql (Urine sed)Ordered By: Kori Sethi on 07-05-2024 Epithelial cells.squamous LM.HPF (Urine sed) [#/Area] 0 /[HPF] 5-10 [facility] Glucose Ql (U)Ordered By: Edenilson Sethi on 07-05-2024 Urine Glucose (UA) Normal mg/dl Normal [facility] Ketones Test strip Ql (U)Ord ered By: Kori Sethi on 07-05-2024 Ketones Ql (U) 5 mg/dl High Negative [facility] Microscopic analysis of urin e for red blood cells (RBC)Ordered By: Kori Sethi on 07-05-2024 Microscopic analysis of urine for red blood cells (RBC) 0-5 SEEN /hpf 0-5 [facility] Urine RBC 0-5 SEEN /hpf 0-5 [facility] Mucus LM Ql (Urine sed)Order ed By: Kori Sethi on 07-05-2024 Mucus Ql (Urine sed) 0 SEEN /hpf [facility] Nitrite Test strip Ql (U)Ord ered By: Kori Sethi on 07-05-2024 Nitrite Ql (U) Positive High Negative [facility] Protein Test strip Ql (U)Ord ered By: Kori Sethi on 07-05-2024 Protein Ql (U) 30 mg/dl High Negative [facility] Squamous epithelial cells de tection in urine sediment by light microscopyOrdered By: Kori Sethi on 07-05-2024 Epithelial cells.squamous LM Ql (Urine sed) 0 SEEN /hpf 5-10 [facility] Triple phosphate crystals LM Ql (Urine sed)Ordered By: Kori Sethi on 07-05-2024 Urine Triple Phosphate Crystals 1+ /hpf [facility] Triple phosphate crystals de tection in urine sediment by light microscopyOrdered By: Kori Sethi on 07-05-2024 Triple phosphate crystals LM Ql (Urine sed) 1+ /hpf [facility] Urine blood detectionOrdered By: Kori Sethi on 07-05-2024 Urine Occult Blood 250 /ul High Negative [facility] Urine clarityOrdered By: Shavonne Sethi on 07-05-2024 Clarity (U) Sl. Cloudy Clear [facility] Urine color determinationOrd ered By: Kori Sethi on 07-05-2024 Color (U) Yellow Yellow [facility] Urine cultureOrdered By: Shavonne Sethi on 07-05-2024 Bacteria identified Cx Nom (U) Providencia stuartii Abnormal [facility] Bacteria identified Cx Nom (U) Escherichia coli Abnormal [facility] Bacteria identified Cx Nom (U) Enterococcus faecalis Abnormal [facility] Urine glucose detectionOrder ed By: Kori Sethi on 07-05-2024 Glucose Ql (U) Normal mg/dl Normal [facility] [facility] leukocyte esterase det ection by dipstickOrdered By: Koir Sethi on 07-05-2024 Leukocyte esterase Test strip Ql (U) 500 /ul High Negative [facility] Urine pHOrdered By: Kori Rider udla on 07-05-2024 pH (U) 7.0 [pH] 5.0 - 8.0 [facility] Urine sediment bacteria coun t by microscopy (number/high power field)Ordered By: Kori Sethi on 07-05-2024 Bacteria LM.HPF (Urine sed) [#/Area] 1 /[HPF] None Seen [facility] Urine specific gravity measu rementOrdered By: Kori Sethi on 07-05-2024 Specific gravity (U) [Rel density] 1.010 1.002-1.030 [facility] Urine urobilinogen measureme ntOrdered By: Kori Sethi on 07-05-2024 Urobilinogen Ql (U) Normal mg/dl Normal [facility] Urobilinogen Ql (U)Ordered B y: Kori Sethi on 07-05-2024 Urine Urobilinogen Normal mg/dl Normal [facility] White blood cell countOrdere d By: Kori Sethi on 07-05-2024 Urine WBC 25-50 SEEN /hpf 0-5 [facility] White blood cell count 25-50 SEEN /hpf 0-5 [facility] Urine Cultureon 07-04-2024 URC Mixed Gram Pos Gram Neg Org [place] Count 80,000-100,000 MIX[facility] Mixed contaminants. Submit a new specimen if indicated. Normal [facility] Comment on above: Performed By: #### L 400.0001, L500.2500, L100.0100, M100.2200 #### [facility] [address] [place], [place], [address] Absolute lymphocyte countOrd ered By: Kori Sethi on 07-03-2024 Lymphocytes Auto (Unsp spec) [#/Vol] 2.57 10*3/uL 0.83-4.51 [facility] Absolute neutrophil countOrd ered By: Kori Sethi on 07-03-2024 Neutrophils (Bld) [#/Vol] 3.5 10*3/uL 2.0-7.7 [facility] Amorphous sediment detection in urine sediment by light microscopyOrdered By: Kori Sethi on 07-03-2024 Amorphous sediment LM Ql (Urine sed) 2+ [facility] Automated lymphocyte count a s percentage of total leukocytesOrdered By: Kori Sethi on 07-03-2024 Lymphocytes/100 WBC Auto (Unsp spec) 36.8 % - [facility] Basic Metabolic Profile (BMP )on 07-03-2024 BUN/CRE 40.3 RATIO High 04-02 [facility] Comment on above: Performed By: #### L 400.0001, L500.2500, L100.0100, M100.2200 #### [facility] [address] [place], [address] CA,Total 9.0 mg/dL Normal 8.5-10.1 [facility] Comment on above: Performed By: #### L 400.0001, L500.2500, L100.0100, M100.2200 #### [facility] [address] [place], [address] Chloride [Moles/Vol] 100 mmol/L Normal 98-107 [facility] Comment on above: Performed By: #### L 400.0001, L500.2500, L100.0100, M100.2200 #### [facility] [address] [place], [address] CO2 [Moles/Vol] 34.0 mmol/L High 21.0-32.0 [facility] Comment on above: Performed By: #### L 400.0001, L500.2500, L100.0100, M100.2200 #### [facility] [address] [place], [address] Creatinine [Mass/Vol] 0.30 mg/dL Low 0.55-1.02 [facility] Comment on above: Result Comment: The validity of the calculated GFR GFRAA in patients over 70 years has not been determined. Clinical correlation is essential. Performed By: #### L 400.0001, L500.2500, L100.0100, M100.2200 #### [facility] [address] [place], [address] EST GFR - AA 305 mL/min Normal >60 [facility] Comment on above: Result Comment: Afri can Dutch GFR Calc Performed By: #### L 400.0001, L500.2500, L100.0100, M100.2200 #### [facility] [address] [place], [address] GAP 4 Low 5-15 [facility] Comment on above: Performed By: #### L 400.0001, L500.2500, L100.0100, M100.2200 #### [facility] [address] [place], [address] GFR/1.73 sq M.predicted among non-blacks MDRD (S/P/Bld) [Vol rate/Area] 252 mL/min/{1.73_m2} Normal >60 [facility] Comment on above: Result Comment: Non- GFR Calc Performed By: #### L 400.0001, L500.2500, L100.0100, M100.2200 #### [facility] [address] [place], [address] Glucose [Mass/Vol] 105 mg/dL Normal 74-106 [facility] Comment on above: Result Comment: Fast ing Glucose result from 100 to 125 mg/dL suggests IMPAIRED HOMEOSTASIS per A.D.A. criteria. Performed By: #### L 400.0001, L500.2500, L100.0100, M100.2200 #### [facility] [address] [place], [address] Potassium [Moles/Vol] 3.8 mmol/L Normal 3.5-5.1 [facility] Comment on above: Performed By: #### L 400.0001, L500.2500, L100.0100, M100.2200 #### [facility] [address] [place], [address] Sodium [Moles/Vol] 138 mmol/L Normal 136-145 [facility] Comment on above: Performed By: #### L 400.0001, L500.2500, L100.0100, M100.2200 #### [facility] [address] [place], [address] Urea nitrogen [Mass/Vol] 12 mg/dL Normal 12-29 [facility] Comment on above: Performed By: #### L 400.0001, L500.2500, L100.0100, M100.2200 #### [facility] [address] [place], [address] Basophil percentageOrdered B y: Kori Sethi on 07-03-2024 Basophils/100 WBC (Bld) 0.6 % 0-1 [facility] Bilirubin Test strip Ql (U)O rdered By: Kori Sethi on 07-03-2024 Bilirubin Ql (U) Negative Negative [facility] Blood urea nitrogen (BUN)/cr eatinine ratioOrdered By: Kori Sethi on 07-03-2024 Urea nitrogen/Creatinine [Mass ratio] 40.3 mg/mg High 04-02 [facility] CBC W/Diff, Automatedon 06-15 Absolute Lymph 2.57 X10 3/uL Normal 0.83-4.51 [facility] Comment on above: Performed By: #### L 400.0001, L500.2500, L100.0100, M100.2200 #### [facility] [address] [place], [address] Absolute Neut 3.5 X10 3/uL Normal 2.0-7.7 [facility] Comment on above: Performed By: #### L 400.0001, L500.2500, L100.0100, M100.2200 #### [facility] [address] [place], [address] Basophils/100 WBC (Bld) 0.6 % Normal 0-1 [facility] Comment on above: Performed By: #### L 400.0001, L500.2500, L100.0100, M100.2200 #### [facility] [address] [place], [address] Eosinophils/100 WBC (Bld) 3.9 % Normal 0-5 [facility] Comment on above: Performed By: #### L 400.0001, L500.2500, L100.0100, M100.2200 #### [facility] [address] [place], [address] Erythrocyte distribution width (RBC) [Ratio] 15.4 % High 11.6-14.6 [facility] Comment on above: Performed By: #### L 400.0001, L500.2500, L100.0100, M100.2200 #### [facility] [address] [place], [address] Hematocrit (Bld) [Volume fraction] 33.1 % Low 37-47 [facility] Comment on above: Performed By: #### L 400.0001, L500.2500, L100.0100, M100.2200 #### [facility] [address] [place], [address] Hemoglobin (Bld) [Mass/Vol] 10.1 g/dL Low 12.0-15.0 [facility] Comment on above: Performed By: #### L 400.0001, L500.2500, L100.0100, M100.2200 #### [facility] [address] [place], [address] IG% 0.300 Normal 0.0-0.9 [facility] Comment on above: Result Comment: IG% - Immature Granulocytes (promyelocytes, myelocytes and metamyelocytes) > 1% indicates that a LEFT SHIFT is Present. Performed By: #### L 400.0001, L500.2500, L100.0100, M100.2200 #### [facility] [address] [place], [address] Lymphocytes/100 WBC (Bld) 36.8 % Normal 19-41 [facility] Comment on above: Performed By: #### L 400.0001, L500.2500, L100.0100, M100.2200 #### [facility] [address] [place], [address] MCH (RBC) [Entitic mass] 25.6 pg Low 27.0-32.0 [facility] Comment on above: Performed By: #### L 400.0001, L500.2500, L100.0100, M100.2200 #### [facility] [address] [place], [address] MCHC (RBC) [Mass/Vol] 30.5 g/dL Low 32-36 [facility] Comment on above: Performed By: #### L 400.0001, L500.2500, L100.0100, M100.2200 #### [facility] [address] [place], [address] MCV (RBC) [Entitic vol] 83.8 fL Normal 81-99 [facility] Comment on above: Performed By: #### L 400.0001, L500.2500, L100.0100, M100.2200 #### [facility] [address] [place], [address] Monocytes/100 WBC (Bld) 8.0 % Normal 0-10 [facility] Comment on above: Performed By: #### L 400.0001, L500.2500, L100.0100, M100.2200 #### [facility] [address] [place], [address] Neutrophils/100 WBC (Bld) 50.4 % Normal 47-70 [facility] Comment on above: Performed By: #### L 400.0001, L500.2500, L100.0100, M100.2200 #### [facility] [address] [place], [address] Nucleated RBC (Bld) [#/Vol] 0 10*3/uL Normal 0-5 [facility] Comment on above: Performed By: #### L 400.0001, L500.2500, L100.0100, M100.2200 #### [facility] [address] [place], [address] Platelet mean volume (Bld) [Entitic vol] 9.6 fL Normal 6.2-12.0 [facility] Comment on above: Performed By: #### L 400.0001, L500.2500, L100.0100, M100.2200 #### [facility] [address] [place], [address] Platelets (Bld) [#/Vol] 312 10*3/uL Normal 150-450 [facility] Comment on above: Performed By: #### L 400.0001, L500.2500, L100.0100, M100.2200 #### [facility] [address] [place], [address] RBC (Bld) [#/Vol] 3.95 10*6/uL Low 4.2-5.4 [facility] Comment on above: Performed By: #### L 400.0001, L500.2500, L100.0100, M100.2200 #### [facility] [address] [place], [address] RDW SD 47.0 fl High 35.1-43.9 [facility] Comment on above: Performed By: #### L 400.0001, L500.2500, L100.0100, M100.2200 #### [facility] [address] [place] [place], [address] WBC (Bld) [#/Vol] 7.0 10*3/uL Normal 4.4-11.0 [facility] Comment on above: Performed By: #### L 400.0001, L500.2500, L100.0100, M100.2200 #### [facility] [address] [place], [address] Carbon dioxide measurementOr dered By: Kori Sethi on 07-03-2024 CO2 [Moles/Vol] 34.0 mmol/L High 21.0-32.0 [facility] Chloride measurementOrdered By: Kori Sethi on 07-03-2024 Chloride [Moles/Vol] 100 mmol/L 98-107 [facility] Eosinophil percentageOrdered By: Kori Sethi on 07-03-2024 Eosinophils/100 WBC (Bld) 3.9 % 0-5 [facility] Epithelial cells.squamous LM Ql (Urine sed)Ordered By: Kori Sethi on 07-03-2024 Epithelial cells.squamous LM.HPF (Urine sed) [#/Area] 0 /[HPF] 5-10 [facility] Erythrocyte distribution wid th (RBC) [Ratio]Ordered By: Kori Sethi on 07-03-2024 Erythrocyte distribution width (RBC) [Entitic vol] 47.0 fL High 35.1-43.9 [facility] Erythrocyte distribution wid th ratioOrdered By: Kori Sethi on 07-03-2024 Erythrocyte distribution width (RBC) [Ratio] 15.4 % High 11.6-14.6 [facility] Erythrocyte distribution wid th standard deviationOrdered By: Kori Sethi on 07-03-2024 Erythrocyte distribution width (RBC) [Ratio] 47.0 fl High 35.1-43.9 [facility] Estimated glomerular filtrat ion rate (GFR) AmericanOrdered By: Kori Sethi on 07-03-2024 Estimated GFR (MDRD) Amer 305 mL/min >60 [facility] Comment on above: GFR Calc Fluor Guidance for Spine Inj on 07-03-2024 Fluor Guidance for Spine Inj [facility] Imaging Services [address] [place] [address] Fluor Guidance for Spine Inj MR#: [id number] Acct: [id number] Name: HENRIK REED Rep #: [id number] : 1975 F 49 From: Roosevelt wall MD PCP: Dr. Lavon Vicente MD Status: [facility] Study: Fluor Guidance for Spine Inj Date of Exam: Exam# [id number] Ordering Dr: [place] [id number] PROCEDURE: Caudal block. DATE OF EXAMINATION: July 03, 2024 INDICATION: Female, 49 years old. Chronic low-back pain FLUOROSCOPY TIME (if supplied): (5.1 second) minutes/seconds. 4.37 mGy. One image was provided. RAD/Fluor Guidance for Spine Inj IMPRESSION: Intraoperative imaging provided for caudal block. Electronically Signed: Roosevelt Galvez MD at 15:10 EST , CC: Dr. Kenia Hammond MD; Dr. Lavon Vicente MD Delivery Table Operator: Signed Normal [facility] Glomerular filtration rate ( GFR) estimationOrdered By: Kori Sethi on 07-03-2024 Estimated GFR (MDRD) Non-Af Amer 252 mL/min >60 [facility] Comment on above: Non- GFR Calc GFR/1.73 sq M.predicted among non-blacks MDRD (S/P/Bld) [Vol rate/Area] 252 mL/min/{1.73_m2} >60 [facility] Comment on above: Non- GFR Calc Glucose Ql (U)Ordered By: Edenilson Sethi on 07-03-2024 Urine Glucose (UA) Normal mg/dl Normal [facility] Glucose measurementOrdered B y: Kori Sethi on 07-03-2024 Glucose [Mass/Vol] 105 mg/dL 74-106 [facility] Comment on above: Fasting Glucose resu lt from 100 to 125 mg/dL suggests IMPAIRED HOMEOSTASIS per A.D.A. criteria. Hematocrit Auto (Bld) [Volum e fraction]Ordered By: Kori Sethi on 07-03-2024 Hematocrit (Bld) [Volume fraction] 33.1 % Low 37-47 [facility] Hemoglobin measurementOrdere d By: Kori Sethi on 07-03-2024 Hemoglobin (Bld) [Mass/Vol] 10.1 g/dL Low 12.0-15.0 [facility] Immature granulocytes/100 WB C Auto (Bld)Ordered By: Kori Sethi on 07-03-2024 Immature granulocytes/100 WBC (Bld) 0.300 % 0.0-0.9 [facility] Comment on above: IG% - Immature Granu locytes (promyelocytes, myelocytes and metamyelocytes) > 1% indicates that a LEFT SHIFT is Present. Ketones Test strip Ql (U)Ord ered By: Kori Sethi on 07-03-2024 Ketones Ql (U) Negative Negative [facility] Lymphocytes Auto (Unsp spec) [#/Vol]Ordered By: Kori Sethi on 07-03-2024 Lymphocytes (Bld) [#/Vol] 2.57 10*3/uL 0.83-4.51 [facility] Lymphocytes/100 WBC Auto (Un sp spec)Ordered By: Kori Sethi on 07-03-2024 Lymphocytes/100 WBC (Bld) 36.8 % 19-41 [facility] MCV (mean corpuscular volume ) determinationOrdered By: Kori Sethi on 07-03-2024 MCV (RBC) [Entitic vol] 83.8 fL 81-99 [facility] MR/POSTOP.ANEon 07-03-2024 MR/POSTOP.ANE [facility] Medical Records Department [address] [place] [address] Anesthesia Postop Eval I 07/03/24 1244 MR#: [id number] Acct: [id number] Name: HENRIK REED Rep #: [id number] : 1975 49 From: Allie Ritchie PCP: Dr. Lavon Vicente MD Status:REG [facility] [place] Race: C Location: [place] [address] Anesthesia: Postop Eval I Current Vital Signs [...] Allie Ahuja Signature: Date CC: Signed Normal [facility] [id number] 07-03-2024 [facility] Medical Records Department [address] [facility] [address] [place] [address] Anesthesia Postop Eval II 07/03/24 1421 MR#: [id number] Acct: [id number] Name: HENRIK REED Rep #: [id number] : 1975 49 From: Filiberto Ureña MD PCP: Dr. Lavon Vicente MD Status:REG [facility] [place] Race: C Location: [place] [address] Anesthesia Postop Eval I Sum Postop Eval Completion status Anesthesia document: Postop Eval 1 completed: Yes Anesthesia Postop Eval I Summary Anesthesia Postop Eval I Summary: Anesthesia Postop Eval I: Assessment Summary Airway patent Yes 07/03/24 12:44 [employer] Spontaneous unlabored Yes 07/03/24 12:44 [employer] respirations Mental status nausea No 07/03/24 12:44 [employer] Vomiting No 07/03/24 12:44 [employer] Anesthesia Postop Eval I: Fluid Summary Crystalloid volume administer 0 07/03/24 12:44 [employer] (ml) Colloids volume administered ( ml) Blood Product volume administered (ml) Total IV fluid infused 0 07/03/24 12:44 [employer] Anesthesia Postop Eval I: Summary Notes Anesthesia Complication No 07/03/24 12:44 [employer] Anesthesia Complication Comment: Post-operative progress note Anesthesia: Postop Eval II Evaluation Mental status: Awake Pain Level: 2 nausea: No Vomiting: No Complications Anesthesia Complication: No 07/03/24 1421 Date Filiberto Ureña MD Cosigner Signature: Date CC: Signed Normal [facility] Mean corpuscular hemoglobin (MCH) determinationOrdered By: Kori Sethi on 07-03-2024 MCH (RBC) [Entitic mass] 25.6 pg Low 27.0-32.0 [facility] Mean corpuscular hemoglobin concentration (MCHC) determinationOrdered By: Kori Sethi on 07-03-2024 MCHC (RBC) [Mass/Vol] 30.5 g/dL Low 32-36 [facility] Mean platelet volume determi nationOrdered By: Kori Sethi on 07-03-2024 Platelet mean volume (Bld) [Entitic vol] 9.6 fL 6.2-12.0 [facility] Microscopic analysis of urin e for red blood cells (RBC)Ordered By: Kori Sethi on 07-03-2024 Microscopic analysis of urine for red blood cells (RBC) 0 SEEN /hpf 0-5 [facility] Urine RBC 0 SEEN /hpf 0-5 [facility] Monocyte percentageOrdered B y: Kori Sethi on 07-03-2024 Monocytes/100 WBC (Bld) 8.0 % 0-10 [facility] Mucus LM Ql (Urine sed)Order ed By: Kori Sethi on 07-03-2024 Mucus Ql (Urine sed) 0 SEEN /hpf [facility] Neutrophil percentageOrdered By: Kori Sethi on 07-03-2024 Neutrophils/100 WBC (Bld) 50.4 % 47-70 [facility] Nitrite Test strip Ql (U)Ord ered By: Kori Sethi on 07-03-2024 Nitrite Ql (U) Positive High Negative [facility] Nucleated red blood cell per centageOrdered By: Kori Sethi on 07-03-2024 Nucleated RBC/100 WBC (Bld) [Ratio] 0 % 0-5 [facility] Platelet countOrdered By: Edenilson Sethi on 07-03-2024 Platelets (Bld) [#/Vol] 312 10*3/uL 150-450 [facility] Potassium measurementOrdered By: Kori Sethi on 07-03-2024 Potassium [Moles/Vol] 3.8 mmol/L 3.5-5.1 [facility] Protein Test strip Ql (U)Ord ered By: Kori Sethi on 07-03-2024 Protein Ql (U) 15 mg/dl High Negative [facility] RBC Auto (Bld) [#/Vol]Ordere d By: Kori Sethi on 07-03-2024 RBC (Bld) [#/Vol] 3.95 10*6/uL Low 4.2-5.4 [facility] Serum anion gap measurementO rdered By: Kori Sethi on 07-03-2024 Anion gap [Moles/Vol] 4 mmol/L Low 5-15 [facility] Serum or plasma calcium miguel angel urement (mass/volume)Ordered By: Kori Sethi on 07-03-2024 Calcium [Mass/Vol] 9.0 mg/dL 8.5-10.1 [facility] Serum or plasma creatinine m easurement (mass/volume)Ordered By: Kori Sethi on 07-03-2024 Creatinine [Mass/Vol] 0.30 mg/dL Low 0.55-1.02 [facility] Comment on above: The validity of the calculated GFR & GFRAA in patients over 70 years has not been determined. Clinical correlation is essential. Serum or plasma urea nitroge n measurement (mass/volume)Ordered By: Kori Sethi on 07-03-2024 Urea nitrogen [Mass/Vol] 12 mg/dL 7-18 [facility] Sodium levelOrdered By: Bailey Sethi on 07-03-2024 Sodium [Moles/Vol] 138 mmol/L 136-145 [facility] Squamous epithelial cells de tection in urine sediment by light microscopyOrdered By: Kori Sethi on 07-03-2024 Epithelial cells.squamous LM Ql (Urine sed) 0-5 SEEN /hpf 5-10 [facility] Triple phosphate crystals LM Ql (Urine sed)Ordered By: Kori Sethi on 07-03-2024 Urine Triple Phosphate Crystals 1+ /hpf [facility] Triple phosphate crystals de tection in urine sediment by light microscopyOrdered By: Kori Sethi on 07-03-2024 Triple phosphate crystals LM Ql (Urine sed) 1+ /hpf [facility] Urinalysis, Completeon 07-03 AMORPHOUS 2+ Normal [facility] Comment on above: Order Comment: NORMA TER SPECIMEN Performed By: #### L 400.0001, L500.2500, L100.0100, M100.2200 #### [facility] [address] [place], [address] TRIPLE PHOS 1+ /hpf Normal [facility] Comment on above: Order Comment: NORMA TER SPECIMEN Performed By: #### L 400.0001, L500.2500, L100.0100, M100.2200 #### [facility] [address] [place], [address] BACTERIA 1+ /hpf Normal None Seen [facility] Comment on above: Order Comment: NORMA TER SPECIMEN Performed By: #### L 400.0001, L500.2500, L100.0100, M100.2200 #### [facility] [address] [place], [address] EPI,SQUAMOUS 0-5 SEEN Normal 5-10 [facility] Comment on above: Order Comment: NORMA TER SPECIMEN Performed By: #### L 400.0001, L500.2500, L100.0100, M100.2200 #### [facility] [address] [place], [address] WBC 0-5 SEEN Normal 0-5 [facility] Comment on above: Order Comment: NORMA TER SPECIMEN Performed By: #### L 400.0001, L500.2500, L100.0100, M100.2200 #### [facility] [address] [place], [address] Mucus Ql (Urine sed) 0 SEEN Normal [facility] Comment on above: Order Comment: NORMA TER SPECIMEN Performed By: #### L 400.0001, L500.2500, L100.0100, M100.2200 #### [facility] [address] [place], [address] RBC 0 SEEN Normal 0-5 [facility] Comment on above: Order Comment: NORMA TER SPECIMEN Performed By: #### L 400.0001, L500.2500, L100.0100, M100.2200 #### [facility] [address] [place], [address] Urine blood detectionOrdered By: Kori Sethi on 07-03-2024 Urine Occult Blood 50 /ul High Negative [facility] Urine clarityOrdered By: Shavonne Sethi on 07-03-2024 Clarity (U) Sl. Cloudy Clear [facility] Urine color determinationOrd ered By: Kori Sethi on 07-03-2024 Color (U) Yellow Yellow [facility] Urine cultureOrdered By: Shavonne Sethi on 07-03-2024 Bacteria identified Cx Nom (U) Mixed Gram Pos & Gram Neg Org Abnormal [facility] Urine glucose detectionOrder ed By: Kori Sethi on 07-03-2024 Glucose Ql (U) Normal mg/dl Normal [facility] Urine leukocyte esterase det ection by dipstickOrdered By: Kori Sethi on 07-03-2024 Leukocyte esterase Test strip Ql (U) 500 /ul High Negative [facility] Urine pHOrdered By: Kori Rider udla on 07-03-2024 pH (U) 8.0 [pH] 5.0 - 8.0 [facility] Urine sediment bacteria coun t by microscopy (number/high power field)Ordered By: Kori Sethi on 07-03-2024 Bacteria LM.HPF (Urine sed) [#/Area] 1 /[HPF] None Seen [facility] Urine specific gravity measu rementOrdered By: Kori Sethi on 07-03-2024 Specific gravity (U) [Rel density] 1.010 1.002-1.030 [facility] Urine urobilinogen measureme ntOrdered By: Kori Sethi on 07-03-2024 Urobilinogen Ql (U) 1 mg/dl High Normal [facility] Urobilinogen Ql (U)Ordered B y: Kori Sethi on 07-03-2024 Urobilinogen (U) [Mass/Vol] 1 mg/dL High Normal [facility] White blood cell (WBC) count Ordered By: Kori Sethi on 07-03-2024 WBC (Bld) [#/Vol] 7.0 10*3/uL 4.4-11.0 [facility] White blood cell countOrdere d By: Kori Sethi on 07-03-2024 Urine WBC 0-5 SEEN /hpf 0-5 [facility] White blood cell count 0-5 SEEN /hpf 0-5 [facility] [id number] DOrdered By: Nancie Sethi on 06-12-2024 Vitamin D 25-Hydroxy 41.4 ng/mL [facility] Comment on above: Vitamin D 25(OH) Sta tus Range Deficiency <20 ng/mL (50nmol/L) Insufficiency 20 - 30 ng/mL (50 - 75 nmol/L) Sufficiency 30 - 100 ng/mL (75 - 250 nmol/L) Toxicity >100 ng/mL (>250 nmol/L) Absolute neutrophil countOrd ered By: Kori Sethi on 06-12-2024 Neutrophils (Bld) [#/Vol] 3.3 10*3/uL 2.0-7.7 [facility] Albumin to globulin ratioOrd ered By: Kori Sethi on 06-12-2024 Albumin/Globulin [Mass ratio] 0.5 {ratio} Low 0.9-2.4 [facility] Basophil percentageOrdered B y: Kori Sethi on 06-12-2024 Basophils/100 WBC (Bld) 0.7 % 0-1 [facility] Bilirubin, totalOrdered By: Kori Sethi on 06-12-2024 Bilirubin [Mass/Vol] 0.30 mg/dL 0.20-1.00 [facility] Comment on above: For patients on eltr ombopag therapy, use of Dimension [place] TBIL is not recommended. Blood urea nitrogen (BUN)/cr eatinine ratioOrdered By: Kori Sethi on 06-12-2024 Urea nitrogen/Creatinine [Mass ratio] 30.7 mg/mg High 04-02 [facility] CBC W/Diff, Automatedon 05-16 Absolute Lymph 2.55 X10 3/uL Normal 0.83-4.51 [facility] Comment on above: Order Comment: 517-2 Performed By: #### L 500.4050, L503.0105, L506.1000, L100.0100, L500.4100, L501.9520 #### [facility] [address] [place], [place], [id number] Absolute Neut 3.3 X10 3/uL Normal 2.0-7.7 [facility] Comment on above: Order Comment: 517-2 Performed By: #### L 500.4050, L503.0105, L506.1000, L100.0100, L500.4100, L501.9520 #### [facility] [address] [place], [address] Basophils/100 WBC (Bld) 0.7 % Normal 0-1 [facility] Comment on above: Order Comment: 517-2 Performed By: #### L 500.4050, L503.0105, L506.1000, L100.0100, L500.4100, L501.9520 #### [facility] [address] [place], [address] Eosinophils/100 WBC (Bld) 5.2 % High 0-5 [facility] Comment on above: Order Comment: 517-2 Performed By: #### L 500.4050, L503.0105, L506.1000, L100.0100, L500.4100, L501.9520 #### [facility] [address] [place], [address] Erythrocyte distribution width (RBC) [Ratio] 16.0 % High 11.6-14.6 [facility] Comment on above: Order Comment: 517-2 Performed By: #### L 500.4050, L503.0105, L506.1000, L100.0100, L500.4100, L501.9520 #### [facility] [address] [place], [address] Hematocrit (Bld) [Volume fraction] 32.9 % Low 37-47 [facility] Comment on above: Order Comment: 517-2 Performed By: #### L 500.4050, L503.0105, L506.1000, L100.0100, L500.4100, L501.9520 #### [facility] [address] [place], [address] Hemoglobin (Bld) [Mass/Vol] 9.9 g/dL Low 12.0-15.0 [facility] Comment on above: Order Comment: 517-2 Performed By: #### L 500.4050, L503.0105, L506.1000, L100.0100, L500.4100, L501.9520 #### [facility] [address] [place], [address] IG% 0.300 Normal 0.0-0.9 [facility] Comment on above: Order Comment: 517-2 Result Comment: IG% - Immature Granulocytes (promyelocytes, myelocytes and metamyelocytes) > 1% indicates that a LEFT SHIFT is Present. Performed By: #### L 500.4050, L503.0105, L506.1000, L100.0100, L500.4100, L501.9520 #### [facility] [address] [place] [place], [address] Lymphocytes/100 WBC (Bld) 37.6 % Normal 19-41 [facility] Comment on above: Order Comment: 517-2 Performed By: #### L 500.4050, L503.0105, L506.1000, L100.0100, L500.4100, L501.9520 #### [facility] [address] [place], [address] MCH (RBC) [Entitic mass] 25.0 pg Low 27.0-32.0 [facility] Comment on above: Order Comment: 517-2 Performed By: #### L 500.4050, L503.0105, L506.1000, L100.0100, L500.4100, L501.9520 #### [facility] [address] [place], [address] MCHC (RBC) [Mass/Vol] 30.1 g/dL Low 32-36 [facility] Comment on above: Order Comment: 517-2 Performed By: #### L 500.4050, L503.0105, L506.1000, L100.0100, L500.4100, L501.9520 #### [facility] [address] [place], [address] MCV (RBC) [Entitic vol] 83.1 fL Normal 81-99 [facility] Comment on above: Order Comment: 517-2 Performed By: #### L 500.4050, L503.0105, L506.1000, L100.0100, L500.4100, L501.9520 #### [facility] [address] [place], [address] Monocytes/100 WBC (Bld) 7.4 % Normal 0-10 [facility] Comment on above: Order Comment: 517-2 Performed By: #### L 500.4050, L503.0105, L506.1000, L100.0100, L500.4100, L501.9520 #### [facility] [address] [place], [address] Neutrophils/100 WBC (Bld) 48.8 % Normal 47-70 [facility] Comment on above: Order Comment: 517-2 Performed By: #### L 500.4050, L503.0105, L506.1000, L100.0100, L500.4100, L501.9520 #### [facility] [address] [place], [address] Nucleated RBC (Bld) [#/Vol] 0 10*3/uL Normal 0-5 [facility] Comment on above: Order Comment: 517-2 Performed By: #### L 500.4050, L503.0105, L506.1000, L100.0100, L500.4100, L501.9520 #### [facility] [address] [place], [address] Platelet mean volume (Bld) [Entitic vol] 9.4 fL Normal 6.2-12.0 [facility] Comment on above: Order Comment: 517-2 Performed By: #### L 500.4050, L503.0105, L506.1000, L100.0100, L500.4100, L501.9520 #### [facility] [address] [place], [address] Platelets (Bld) [#/Vol] 342 10*3/uL Normal 150-450 [facility] Comment on above: Order Comment: 517-2 Performed By: #### L 500.4050, L503.0105, L506.1000, L100.0100, L500.4100, L501.9520 #### [facility] [address] [place], [address] RBC (Bld) [#/Vol] 3.96 10*6/uL Low 4.2-5.4 [facility] Comment on above: Order Comment: 517-2 Performed By: #### L 500.4050, L503.0105, L506.1000, L100.0100, L500.4100, L501.9520 #### [facility] [address] [place], [address] RDW SD 48.2 fl High 35.1-43.9 [facility] Comment on above: Order Comment: 517-2 Performed By: #### L 500.4050, L503.0105, L506.1000, L100.0100, L500.4100, L501.9520 #### [facility] [address] [place], [address] WBC (Bld) [#/Vol] 6.8 10*3/uL Normal 4.4-11.0 [facility] Comment on above: Order Comment: 517-2 Performed By: #### L 500.4050, L503.0105, L506.1000, L100.0100, L500.4100, L501.9520 #### [facility] [address] [place], [address] Carbon dioxide measurementOr dered By: Kori Sethi on 06-12-2024 CO2 [Moles/Vol] 29.0 mmol/L 21.0-32.0 [facility] Chloride measurementOrdered By: Kori Sethi on 06-12-2024 Chloride [Moles/Vol] 102 mmol/L 98-107 [facility] Comprehensive Metabolic Prof ilon 06-12-2024 Albumin [Mass/Vol] 2.8 g/dL Low 3.2-5.0 [facility] Comment on above: Order Comment: 517-2 Performed By: #### L 500.4050, L503.0105, L506.1000, L100.0100, L500.4100, L501.9520 #### [facility] [address] [place], [address] Albumin/Globulin [Mass ratio] 0.5 {ratio} Low 0.9-2.4 [facility] Comment on above: Order Comment: 517-2 Performed By: #### L 500.4050, L503.0105, L506.1000, L100.0100, L500.4100, L501.9520 #### [facility] [address] [place], [address] ALK P 94 U/L Normal 45-117 [facility] Comment on above: Order Comment: 517-2 Performed By: #### L 500.4050, L503.0105, L506.1000, L100.0100, L500.4100, L501.9520 #### [facility] [address] [place], [address] ALT [Catalytic activity/Vol] 27 U/L Normal 13-56 [facility] Comment on above: Order Comment: 517-2 Performed By: #### L 500.4050, L503.0105, L506.1000, L100.0100, L500.4100, L501.9520 #### [facility] [address] [place], [address] AST [Catalytic activity/Vol] 18 U/L Normal 15-37 [facility] Comment on above: Order Comment: 517-2 Performed By: #### L 500.4050, L503.0105, L506.1000, L100.0100, L500.4100, L501.9520 #### [facility] [address] [place], [address] Bilirubin [Mass/Vol] 0.30 mg/dL Normal 0.20-1.00 [facility] Comment on above: Order Comment: 517-2 Result Comment: For patients on eltrombopag therapy, use of Dimension [place] TBIL is not recommended. Performed By: #### L 500.4050, L503.0105, L506.1000, L100.0100, L500.4100, L501.9520 #### [facility] [address] [place], [address] BUN/CRE 30.7 RATIO High 10-20 [facility] Comment on above: Order Comment: 517-2 Performed By: #### L 500.4050, L503.0105, L506.1000, L100.0100, L500.4100, L501.9520 #### [facility] [address] [place], [address] CA,Total 8.8 mg/dL Normal 8.5-10.1 [facility] Comment on above: Order Comment: 517-2 Performed By: #### L 500.4050, L503.0105, L506.1000, L100.0100, L500.4100, L501.9520 #### [facility] [address] [place], [address] Chloride [Moles/Vol] 102 mmol/L Normal 98-107 [facility] Comment on above: Order Comment: 517-2 Performed By: #### L 500.4050, L503.0105, L506.1000, L100.0100, L500.4100, L501.9520 #### [facility] [address] [place], [address] CO2 [Moles/Vol] 29.0 mmol/L Normal 21.0-32.0 [facility] Comment on above: Order Comment: -2 Performed By: #### L 500.4050, L503.0105, L506.1000, L100.0100, L500.4100, L501.9520 #### [facility] [address] [place], [address] Creatinine [Mass/Vol] 0.36 mg/dL Low 0.55-1.02 [facility] Comment on above: Order Comment: -2 Result Comment: The validity of the calculated GFR GFRAA in patients over 70 years has not been determined. Clinical correlation is essential. Performed By: #### L 500.4050, L503.0105, L506.1000, L100.0100, L500.4100, L501.9520 #### [facility] [address] [place], [address] EST GFR - AA 247 mL/min Normal >60 [facility] Comment on above: Order Comment: - Result Comment: Afri can Dutch GFR Calc Performed By: #### L 500.4050, L503.0105, L506.1000, L100.0100, L500.4100, L501.9520 #### [facility] [address] [place], [address] GAP 8 Normal 5-15 [facility] Comment on above: Order Comment: -2 Performed By: #### L 500.4050, L503.0105, L506.1000, L100.0100, L500.4100, L501.9520 #### [facility] [address] [place], [address] GFR/1.73 sq M.predicted among non-blacks MDRD (S/P/Bld) [Vol rate/Area] 204 mL/min/{1.73_m2} Normal >60 [facility] Comment on above: Order Comment: -2 Result Comment: Non- GFR Calc Performed By: #### L 500.4050, L503.0105, L506.1000, L100.0100, L500.4100, L501.9520 #### [facility] [address] [place], [address] Globulin (S) [Mass/Vol] 5.1 g/dL High 2.2-4.2 [facility] Comment on above: Order Comment: 517-2 Performed By: #### L 500.4050, L503.0105, L506.1000, L100.0100, L500.4100, L501.9520 #### [facility] [address] [place], [address] Glucose [Mass/Vol] 106 mg/dL Normal 74-106 [facility] Comment on above: Order Comment: 517-2 Result Comment: Fast ing Glucose result from 100 to 125 mg/dL suggests IMPAIRED HOMEOSTASIS per A.D.A. criteria. Performed By: #### L 500.4050, L503.0105, L506.1000, L100.0100, L500.4100, L501.9520 #### [facility] [address] [place], [address] Potassium [Moles/Vol] 3.4 mmol/L Low 3.5-5.1 [facility] Comment on above: Order Comment: 517-2 Performed By: #### L 500.4050, L503.0105, L506.1000, L100.0100, L500.4100, L501.9520 #### [facility] [address] [place], [address] Sodium [Moles/Vol] 139 mmol/L Normal 136-145 [facility] Comment on above: Order Comment: 517-2 Performed By: #### L 500.4050, L503.0105, L506.1000, L100.0100, L500.4100, L501.9520 #### [facility] [address] [place], [address] T PROT 7.9 g/dL Normal 6.4-8.2 [facility] Comment on above: Order Comment: 517-2 Performed By: #### L 500.4050, L503.0105, L506.1000, L100.0100, L500.4100, L501.9520 #### [facility] [address] [place], [address] Urea nitrogen [Mass/Vol] 11 mg/dL Normal 7-18 [facility] Comment on above: Order Comment: 517-2 Performed By: #### L 500.4050, L503.0105, L506.1000, L100.0100, L500.4100, L501.9520 #### [facility] [address] [place], [address] Eosinophil percentageOrdered By: Kori Sethi on 06-12-2024 Eosinophils/100 WBC (Bld) 5.2 % High 0-5 [facility] Erythrocyte distribution wid th (RBC) [Ratio]Ordered By: Kori Sehti on 06-12-2024 Erythrocyte distribution width (RBC) [Entitic vol] 48.2 fL High 35.1-43.9 [facility] Erythrocyte distribution wid th ratioOrdered By: Kori Sethi on 06-12-2024 Erythrocyte distribution width (RBC) [Ratio] 16.0 % High 11.6-14.6 [facility] Estimated glomerular filtrat ion rate (GFR) AmericanOrdered By: Kori Sethi on 06-12-2024 Estimated GFR (MDRD) Amer 247 mL/min >60 [facility] Comment on above: GFR Calc Glomerular filtration rate ( GFR) estimationOrdered By: Kori Sethi on 06-12-2024 Estimated GFR (MDRD) Non-Af Amer 204 mL/min >60 [facility] Comment on above: Non- GFR Calc Glucose measurementOrdered B y: Kori Sethi on 06-12-2024 Glucose [Mass/Vol] 106 mg/dL 74-106 [facility] Comment on above: Fasting Glucose resu lt from 100 to 125 mg/dL suggests IMPAIRED HOMEOSTASIS per A.D.A. criteria. Hematocrit Auto (Bld) [Volum e fraction]Ordered By: Kori Sethi on 06-12-2024 Hematocrit (Bld) [Volume fraction] 32.9 % Low 37-47 [facility] Hemoglobin measurementOrdere d By: Kori Sethi on 06-12-2024 Hemoglobin (Bld) [Mass/Vol] 9.9 g/dL Low 12.0-15.0 [facility] High density lipoprotein (HD L) measurementOrdered By: Kori Sethi on 06-12-2024 Cholesterol in HDL [Mass/Vol] 58 mg/dL >40 [facility] Comment on above: The drugs N-Acetylcy steine and Metamizole may falsely depress this assay. Reference Range HDL <40 mg/dL Low HDL Cholesterol HDL >or= 60 mg/dL High HDL Cholesterol Immature granulocytes/100 WB C Auto (Bld)Ordered By: Kori Sethi on 06-12-2024 Immature granulocytes/100 WBC (Bld) 0.300 % 0.0-0.9 [facility] Comment on above: IG% - Immature Granu locytes (promyelocytes, myelocytes and metamyelocytes) > 1% indicates that a LEFT SHIFT is Present. Laboratory - Chemistry and C hemistry - challengeOrdered By: Kori Sethi on 06-12-2024 AST [Catalytic activity/Vol] 18 U/L 15-37 [facility] Lipid Profileon 06-12-2024 Cholesterol [Mass/Vol] 184 mg/dL Normal 200 [facility] Comment on above: Order Comment: 517-2 Result Comment: <200 mg/dL Desirable 200-240 mg/dL Borderline >240 mg/dL High Risk Performed By: #### L 500.4050, L503.0105, L506.1000, L100.0100, L500.4100, L501.9520 #### [facility] [address] [place], [address] Cholesterol in HDL [Mass/Vol] 58 mg/dL Normal [facility] Comment on above: Order Comment: 517-2 Result Comment: The drugs N-Acetylcysteine and Metamizole may falsely depress this assay. Reference Range HDL <40 mg/dL Low HDL Cholesterol HDL >or= 60 mg/dL High HDL Cholesterol Performed By: #### L 500.4050, L503.0105, L506.1000, L100.0100, L500.4100, L501.9520 #### [facility] [address] [place], [address] Cholesterol in LDL [Mass/Vol] 108 mg/dL Normal 0-130 [facility] Comment on above: Order Comment: 517-2 Performed By: #### L 500.4050, L503.0105, L506.1000, L100.0100, L500.4100, L501.9520 #### [facility] [address] [place], [address] Cholesterol in VLDL [Mass/Vol] 18 mg/dL Normal 5-40 [facility] Comment on above: Order Comment: 517-2 Performed By: #### L 500.4050, L503.0105, L506.1000, L100.0100, L500.4100, L501.9520 #### [facility] [address] [place], [address] Triglyceride [Mass/Vol] 91 mg/dL Normal [facility] Comment on above: Order Comment: 517-2 Result Comment: The drugs N-Acetylcysteine and Metamizole may falsely depress this assay. Serum Triglycerides Reference Interval Normal <150 mg/dL Borderline high 150 - 199 mg/dL High 200 - 499 mg/dL Very High > or = 500 mg/dL Performed By: #### L 500.4050, L503.0105, L506.1000, L100.0100, L500.4100, L501.9520 #### [facility] [address] [place], [address] Low density lipoprotein (LDL ) cholesterol measurementOrdered By: Kori Sethi on 06-12-2024 Cholesterol in LDL [Mass/Vol] 108 mg/dL 0-130 [facility] Lymphocytes Auto (Unsp spec) [#/Vol]Ordered By: Kori Sethi on 06-12-2024 Lymphocytes (Bld) [#/Vol] 2.55 10*3/uL 0.83-4.51 [facility] Lymphocytes/100 WBC Auto (Un sp spec)Ordered By: Kori Sethi on 06-12-2024 Lymphocytes/100 WBC (Bld) 37.6 % 19-41 [facility] MCV (mean corpuscular volume ) determinationOrdered By: Kori Sethi on 06-12-2024 MCV (RBC) [Entitic vol] 83.1 fL 81-99 [facility] Mean corpuscular hemoglobin (MCH) determinationOrdered By: Kori Sethi on 06-12-2024 MCH (RBC) [Entitic mass] 25.0 pg Low 27.0-32.0 [facility] Mean corpuscular hemoglobin concentration (MCHC) determinationOrdered By: Kori Sethi on 06-12-2024 MCHC (RBC) [Mass/Vol] 30.1 g/dL Low 32-36 [facility] Mean platelet volume determi nationOrdered By: Kori Sethi on 06-12-2024 Platelet mean volume (Bld) [Entitic vol] 9.4 fL 6.2-12.0 [facility] Monocyte percentageOrdered B y: Kori Sethi on 06-12-2024 Monocytes/100 WBC (Bld) 7.4 % 0-10 [facility] Neutrophil percentageOrdered By: Kori Sethi on 06-12-2024 Neutrophils/100 WBC (Bld) 48.8 % 47-70 [facility] Nucleated red blood cell per centageOrdered By: Kori Sethi on 06-12-2024 Nucleated RBC/100 WBC (Bld) [Ratio] 0 % 0-5 [facility] Platelet countOrdered By: Edenilson Sethi on 06-12-2024 Platelets (Bld) [#/Vol] 342 10*3/uL 150-450 [facility] Potassium measurementOrdered By: Kori Sethi on 06-12-2024 Potassium [Moles/Vol] 3.4 mmol/L Low 3.5-5.1 [facility] RBC Auto (Bld) [#/Vol]Ordere d By: Kori Sethi on 06-12-2024 RBC (Bld) [#/Vol] 3.96 10*6/uL Low 4.2-5.4 [facility] Serum anion gap measurementO rdered By: Kori Sethi on 06-12-2024 Anion gap [Moles/Vol] 8 mmol/L 5-15 [facility] Serum globulin measurementOr dered By: Kori Sethi on 06-12-2024 Globulin (S) [Mass/Vol] 5.1 g/dL High 2.2-4.2 [facility] Serum or plasma alanine lyon otransferase (ALT) measurementOrdered By: Kori Sethi on 06-12-2024 ALT [Catalytic activity/Vol] 27 U/L 13-56 [facility] Serum or plasma albumin miguel angel urement (mass/volume)Ordered By: Kori Sethi on 06-12-2024 Albumin [Mass/Vol] 2.8 g/dL Low 3.2-5.0 [facility] Serum or plasma alkaline raghu sphatase measurementOrdered By: oKri Sethi on 06-12-2024 ALP [Catalytic activity/Vol] 94 U/L 45-117 [facility] Serum or plasma calcium miguel angel urement (mass/volume)Ordered By: Kori Sethi on 06-12-2024 Calcium [Mass/Vol] 8.8 mg/dL 8.5-10.1 [facility] Serum or plasma cholesterol measurement (mass/volume)Ordered By: Kori Sethi on 06-12-2024 Cholesterol [Mass/Vol] 184 mg/dL <200 [facility] Comment on above: <200 mg/dL Desirable 200-240 mg/dL Borderline >240 mg/dL High Risk Serum or plasma creatinine m easurement (mass/volume)Ordered By: Kori Sethi on 06-12-2024 Creatinine [Mass/Vol] 0.36 mg/dL Low 0.55-1.02 [facility] Comment on above: The validity of the calculated GFR & GFRAA in patients over 70 years has not been determined. Clinical correlation is essential. Serum or plasma urea nitroge n measurement (mass/volume)Ordered By: Kori Sethi on 06-12-2024 Urea nitrogen [Mass/Vol] 11 mg/dL 7-18 [facility] Sodium levelOrdered By: Bailey Sethi on 06-12-2024 Sodium [Moles/Vol] 139 mmol/L 136-145 [facility] TSH QnOrdered By: Kori patterson on 06-12-2024 Thyroid Stimulating Hormone (TSH) 4.310 uIU/mL High 0.358-3.740 [facility] Thyroid Stim Hormone (TSH)on 06-12-2024 TSH 4.310 uIU/mL High 0.358-3.740 [facility] Comment on above: Order Comment: 517-2 Performed By: #### L 500.4050, L503.0105, L506.1000, L100.0100, L500.4100, L501.9520 #### [facility] [address] [place], [place], [id number] Total proteinOrdered By: Shavonne Sethi on 06-12-2024 Protein [Mass/Vol] 7.9 g/dL 6.4-8.2 [facility] Triglycerides measurementOrd ered By: Kori Sethi on 06-12-2024 Triglyceride [Mass/Vol] 91 mg/dL <199 [facility] Comment on above: The drugs N-Acetylcy steine and Metamizole may falsely depress this assay.Serum Triglycerides Reference Interval Normal <150 mg/dL Borderline high 150 - 199 mg/dL High 200 - 499 mg/dL Very High > or = 500 mg/dL Very low density lipoprotein (VLDL) cholesterol measurementOrdered By: Kori Sethi on 06-12-2024 VLDL Cholesterol 18 mg/dL 5-40 [facility] Vitamin B12on 06-12-2024 Cobalamin (Vitamin B12) [Mass/Vol] 414 pg/mL Normal 211-911 [facility] Comment on above: Order Comment: 517-2 Performed By: #### L 500.4050, L503.0105, L506.1000, L100.0100, L500.4100, L501.9520 #### [facility] [address] [place], [place], [address] Vitamin B12 measurementOrder ed By: Kori Sethi on 06-12-2024 Cobalamin (Vitamin B12) [Mass/Vol] 414 pg/mL 211-911 [facility] Vitamin D,25 Hydroxyon 06-12 Vitamin D 25-OH 41.4 ng/mL Normal [facility] Comment on above: Order Comment: Result Comment: Rosalba min D 25(OH) Status Range Deficiency <20 ng/mL (50nmol/L) Insufficiency 20 - 30 ng/mL (50 - 75 nmol/L) Sufficiency 30 - 100 ng/mL (75 - 250 nmol/L) Toxicity >100 ng/mL (>250 nmol/L) Performed By: #### L 500.4050, L503.0105, L506.1000, L100.0100, L500.4100, L501.9520 #### [facility] [address] [place], [address] White blood cell (WBC) count Ordered By: Kori Sethi on 06-12-2024 WBC (Bld) [#/Vol] 6.8 10*3/uL 4.4-11.0 [facility] Stool Occult Blood iFOBon STOB Negative Normal [facility] Comment on above: Performed By: #### L 400.0001, L500.2500, L100.0100, M100.2200 #### [facility] [address] [place], [address] LABORATORYOrdered By: SYSTEM SYSTEM on 03-01-2024 Calcium [Mass/Vol] 9.3 mg/dL Normal 8.7 - 10. 4 mg/dL AH ADM SS Chloride [Moles/Vol] 103 mmol/L Normal 98 - 11 0 mEq/L AH ADM SS CO2 [Moles/Vol] 36 mmol/L High 22 - 32 mEq/L AH ADM SS Creatinine [Mass/Vol] 0.22 mg/dL Low 0.50 - 1.20 mg/dL AH ADM SS Comment on above: Interpretive Data: T esting performed on [employer] analyzer using enzymatic creatinine methodology. Electrolyte Balance 1.0 mEq/L Low 4.0 - 15 .0 mEq/L AH ADM SS GFR/1.73 sq M.predicted among blacks MDRD (S/P/Bld) [Vol rate/Area] ml/min/1.73sqm Invalid Interpretation Code [employer] Chemistry S Comment on above: Interpretive Data: [...] (S/P/Bld) [Vol rate/Area] ml/min/1.73sqm Invalid Interpretation Code [employer] Chemistry S Comment on above: Interpretive Data: [...] 111 mg/dL High 70 - 110 mg/dL AH ADM SS Potassium [Moles/Vol] 3.8 mmol/L Normal 3.5 - 5.0 mEq/L AH ADM SS Sodium [Moles/Vol] 140 mmol/L Normal [...] 4.5 - 10.8 10^3/mcL AH Workflow SS US RENALon 01-27-2024 US RENAL ORIGINAL EXAMINATION: [...] Sign Date: 01/27/2024 1:20:23 PM Ordering Provider: LONI PAGE [facility] ([place]) XR ABDOMEN APon 01-27-2024 XR ABDOMEN AP [...] Sign Date: 01/27/2024 10:48:47 PM Ordering Provider: LONI PAGE [facility] ([place]) Basophil percentageOrdered B y: Lavon Vicente on 10-21-2023 Basophil percentage 9.4 g/dL 12.0-15.0 [facility] Basophil percentage 137 mg/dL 74-106 [facility] Basophil percentage 7.5 g/dL 6.4-8.2 [facility] Basophil percentage 0.20 mg/dL 0.20-1.00 [facility] Basophil percentage 138 mmol/L 136-145 [facility] Basophil percentage 3.4 mmol/L 3.5-5.1 [facility] Basophil percentage 101 mmol/L 98-107 [facility] Basophils (Bld) [#/Vol] 8.3 10*3/uL 4.4-11.0 [facility] Determination of erythrocyte mean corpuscular volume (MCV)Ordered By: Lavon Vicente on 10-21-2023 MCV (RBC) [Entitic vol] 83.5 fL 81-99 [facility] Erythrocyte distribution wid th ratioOrdered By: Lavon Vicente on 10-21-2023 Erythrocyte distribution width (RBC) [Ratio] 15.6 % 11.6-14.6 [facility] Erythrocyte distribution wid th standard deviationOrdered By: Lavon Vicente on 10-21-2023 Erythrocyte distribution width (RBC) [Entitic vol] 47.5 fL 35.1-43.9 [facility] Hematocrit Auto (Bld) [Volum e fraction]Ordered By: Lavon Vicente on 10-21-2023 Hematocrit (Bld) [Volume fraction] 31.3 % 37-47 [facility] No Panel InformationOrdered By: Lavon Vicente on 10-21-2023 25.1 pg 27.0-32.0 [facility] 30.0 g/dL 32-36 [facility] 293 K/mm3 150-450 [facility] 9.3 fl 6.2-12.0 [facility] 304 mL/min >60 [facility] 367 mL/min >60 [facility] 47.2 RATIO 10-20 [facility] 4.8 g/dL 2.2-4.2 [facility] 0.6 RATIO 0.9-2.4 [facility] 114 U/L 45-117 [facility] 20 U/L 13-56 [facility] 34.0 mmol/L 21.0-32.0 [facility] RBC Auto (Bld) [#/Vol]Ordere d By: Lavon Vicente on 10-21-2023 RBC (Bld) [#/Vol] 3.75 10*6/uL 4.2-5.4 [facility] Serum or plasma calcium miguel angel urement (mass/volume)Ordered By: Lavon Vicente on 10-21-2023 Calcium [Mass/Vol] 8.5 mg/dL 8.5-10.1 [facility] Serum or plasma creatinine m easurement (mass/volume)Ordered By: Lavon Vicente on 10-21-2023 Creatinine [Mass/Vol] 0.25 mg/dL 0.55-1.02 [facility] Serum or plasma urea nitroge n measurement (mass/volume)Ordered By: Lavon Vicente on 10-21-2023 Urea nitrogen [Mass/Vol] 12 mg/dL 7-18 [facility] Thin prep Papanicolaou smear with manual screeningOrdered By: Lavon Vicente on 10-21-2023 Thin prep Papanicolaou smear with manual screening 2.7 g/dL 3.2-5.0 [facility] Thin prep Papanicolaou smear with manual screening 14 U/L 15-37 [facility] Thin prep Papanicolaou smear with manual screening 3 5-15 [facility] Basophil percentageOrdered B y: Lavon Vicente on 10-15-2023 Basophil percentage 10.2 g/dL 12.0-15.0 [facility] Basophil percentage 126 mg/dL 74-106 [facility] Basophil percentage 7.8 g/dL 6.4-8.2 [facility] Basophil percentage 0.20 mg/dL 0.20-1.00 [facility] Basophil percentage 137 mmol/L 136-145 [facility] Basophil percentage 4.0 mmol/L 3.5-5.1 [facility] Basophil percentage 100 mmol/L 98-107 [facility] Basophils (Bld) [#/Vol] 8.8 10*3/uL 4.4-11.0 [facility] Determination of erythrocyte mean corpuscular volume (MCV)Ordered By: Lavon Vicente on 10-15-2023 MCV (RBC) [Entitic vol] 81.8 fL 81-99 [facility] Erythrocyte distribution wid th ratioOrdered By: Lavon Vicente on 10-15-2023 Erythrocyte distribution width (RBC) [Ratio] 15.5 % 11.6-14.6 [facility] Erythrocyte distribution wid th standard deviationOrdered By: Lavon Vicente on 10-15-2023 Erythrocyte distribution width (RBC) [Entitic vol] 46.4 fL 35.1-43.9 [facility] Hematocrit Auto (Bld) [Volum e fraction]Ordered By: Lavon Vicente on 10-15-2023 Hematocrit (Bld) [Volume fraction] 33.8 % 37-47 [facility] No Panel InformationOrdered By: Lavon Vicente on 10-15-2023 24.7 pg 27.0-32.0 [facility] 30.2 g/dL 32-36 [facility] 301 K/mm3 150-450 [facility] 9.4 fl 6.2-12.0 [facility] 253 mL/min >60 [facility] 306 mL/min >60 [facility] 50.3 RATIO 10-20 [facility] 4.9 g/dL 2.2-4.2 [facility] 0.6 RATIO 0.9-2.4 [facility] 121 U/L 45-117 [facility] 27 U/L 13-56 [facility] 35.0 mmol/L 21.0-32.0 [facility] RBC Auto (Bld) [#/Vol]Ordere d By: Lavon Vicente on 10-15-2023 RBC (Bld) [#/Vol] 4.13 10*6/uL 4.2-5.4 [facility] Serum or plasma calcium miguel angel urement (mass/volume)Ordered By: Lavon Vicente on 10-15-2023 Calcium [Mass/Vol] 9.2 mg/dL 8.5-10.1 [facility] Serum or plasma creatinine m easurement (mass/volume)Ordered By: Lavon Vicente on 10-15-2023 Creatinine [Mass/Vol] 0.30 mg/dL 0.55-1.02 [facility] Serum or plasma urea nitroge n measurement (mass/volume)Ordered By: Lavon Vicente on 10-15-2023 Urea nitrogen [Mass/Vol] 15 mg/dL 7-18 [facility] Thin prep Papanicolaou smear with manual screeningOrdered By: Lavon Vicente on 10-15-2023 Thin prep Papanicolaou smear with manual screening 2.9 g/dL 3.2-5.0 [facility] Thin prep Papanicolaou smear with manual screening 20 U/L 15-37 [facility] Thin prep Papanicolaou smear with manual screening 2 5-15 [facility] Bacteria identified Cx Nom ( U)Ordered By: Lavon Vicente on 10-01-2023 Culture, urine Proteus mirabilis [facility] Basophil percentageOrdered B y: Lavon Vicente on 10-01-2023 Basophil percentage 0 SEEN /hpf 0-5 [facility] Bilirubin Test strip Ql (U)O rdered By: Lavon Vicente on 10-01-2023 Bilirubin Ql (U) Negative Negative [facility] Ketones Test strip Ql (U)Ord ered By: Lavon Vicente on 10-01-2023 Ketones Ql (U) Negative Negative [facility] Magnesium ammonium phosphate crystal detectionOrdered By: Lavon Vicente on 10-01-2023 Triple phosphate crystals LM Ql (Urine sed) 3+ /hpf [facility] Mucus LM Ql (Urine sed)Order ed By: Lavon Vicente on 10-01-2023 Mucus Ql (Urine sed) 0 SEEN /hpf [facility] Nitrite Test strip Ql (U)Ord ered By: Lavon Vicente on 10-01-2023 Nitrite Ql (U) Positive Negative [facility] No Panel InformationOrdered By: Lavon Vicente on 10-01-2023 0 SEEN /hpf 0-5 [facility] Protein Test strip Ql (U)Ord ered By: Lavon Vicente on 10-01-2023 Protein Ql (U) 30 mg/dl Negative [facility] Squamous epithelial cells de tection in urine sediment by light microscopyOrdered By: Lavon Vicente on 10-01-2023 Epithelial cells.squamous LM Ql (Urine sed) 0 SEEN /hpf 5-10 [facility] Urine blood detectionOrdered By: Lavon Vicente on 10-01-2023 RBC Ql (U) Negative Negative [facility] Urine clarityOrdered By: Estefany Vicente on 10-01-2023 Clarity (U) Cloudy Clear [facility] Urine color determinationOrd ered By: Lavon Vicente on 10-01-2023 Color (U) Yellow Yellow [facility] Urine glucose detectionOrder ed By: Lavon Vicente on 10-01-2023 Glucose Ql (U) Normal mg/dl Normal [facility] Urine leukocyte esterase det ection by dipstickOrdered By: Lavon Vicente on 10-01-2023 Leukocyte esterase Test strip Ql (U) 500 /ul Negative [facility] Urine pHOrdered By: Lavon alcala on 10-01-2023 pH (U) 9.0 [pH] 5.0 - 8.0 [facility] Urine sediment bacteria coun t by microscopy (number/high power field)Ordered By: Lavon Vicente on 10-01-2023 Bacteria LM.HPF (Urine sed) [#/Area] 0 /[HPF] None Seen [facility] Urine specific gravity measu rementOrdered By: Lavon Vicente on 10-01-2023 Specific gravity (U) [Rel density] 1.015 1.002-1.030 [facility] Urine urobilinogen measureme ntOrdered By: Lavon Vicente on 10-01-2023 Urobilinogen Ql (U) Normal mg/dl Normal [facility] Basophil percentageOrdered B y: Lavon Vicente on 09-07-2023 Basophil percentage 9.5 g/dL 12.0-15.0 [facility] Basophil percentage 158 mg/dL 74-106 [facility] Basophil percentage 7.0 g/dL 6.4-8.2 [facility] Basophil percentage 0.20 mg/dL 0.20-1.00 [facility] Basophil percentage 138 mmol/L 136-145 [facility] Basophil percentage 3.6 mmol/L 3.5-5.1 [facility] Basophil percentage 101 mmol/L 98-107 [facility] Basophils (Bld) [#/Vol] 6.6 10*3/uL 4.4-11.0 [facility] Determination of erythrocyte mean corpuscular volume (MCV)Ordered By: Lavon Vicente on 09-07-2023 MCV (RBC) [Entitic vol] 84.1 fL 81-99 [facility] Erythrocyte distribution wid th ratioOrdered By: Lavon Vicente on 09-07-2023 Erythrocyte distribution width (RBC) [Ratio] 15.8 % 11.6-14.6 [facility] Erythrocyte distribution wid th standard deviationOrdered By: Lavon Vicente on 09-07-2023 Erythrocyte distribution width (RBC) [Entitic vol] 47.5 fL 35.1-43.9 [facility] Hematocrit Auto (Bld) [Volum e fraction]Ordered By: Lavon Vicente on 09-07-2023 Hematocrit (Bld) [Volume fraction] 31.3 % 37-47 [facility] No Panel InformationOrdered By: Lavon Vicente on 09-07-2023 25.5 pg 27.0-32.0 [facility] 30.4 g/dL 32-36 [facility] 267 K/mm3 150-450 [facility] 9.5 fl 6.2-12.0 [facility] 219 mL/min >60 [facility] 265 mL/min >60 [facility] 38.6 RATIO 10-20 [facility] 4.3 g/dL 2.2-4.2 [facility] 0.6 RATIO 0.9-2.4 [facility] 82 U/L 45-117 [facility] 21 U/L 13-56 [facility] 29.0 mmol/L 21.0-32.0 [facility] 39.8 ng/mL [facility] RBC Auto (Bld) [#/Vol]Ordere d By: Lavon Vicente on 09-07-2023 RBC (Bld) [#/Vol] 3.72 10*6/uL 4.2-5.4 [facility] Serum or plasma calcium miguel angel urement (mass/volume)Ordered By: Lavon Vicente on 09-07-2023 Calcium [Mass/Vol] 8.6 mg/dL 8.5-10.1 [facility] Serum or plasma creatinine m easurement (mass/volume)Ordered By: Lavon Vicente on 09-07-2023 Creatinine [Mass/Vol] 0.34 mg/dL 0.55-1.02 [facility] Serum or plasma thyroid stim ulating hormone (TSH) measurement (units/volume)Ordered By: Lavon Vicente on 09-07-2023 TSH Qn 4.04 uIU/mL 0.358-3.74 [facility] Serum or plasma urea nitroge n measurement (mass/volume)Ordered By: Lavon Vicente on 09-07-2023 Urea nitrogen [Mass/Vol] 13 mg/dL 7-18 [facility] Thin prep Papanicolaou smear with manual screeningOrdered By: Lavon Vicente on 09-07-2023 Thin prep Papanicolaou smear with manual screening 2.7 g/dL 3.2-5.0 [facility] Thin prep Papanicolaou smear with manual screening 14 U/L 15-37 [facility] Thin prep Papanicolaou smear with manual screening 8 5-15 [facility] Thin prep Papanicolaou smear with manual screening 1.11 ng/dL 0.76-1.46 [facility] Bacteria identified Cx Nom ( U)Ordered By: Lavon Vicente on 09-06-2023 Culture, urine Proteus mirabilis [facility] Culture, urine Meth. resistant Stap h. aureus [facility] Bilirubin Test strip Ql (U)O rdered By: Lavon Vicente on 09-06-2023 Bilirubin Ql (U) Negative Negative [facility] Ketones Test strip Ql (U)Ord ered By: Lavon Vicente on 09-06-2023 Ketones Ql (U) Negative Negative [facility] Nitrite Test strip Ql (U)Ord ered By: Lavon Vicente on 09-06-2023 Nitrite Ql (U) Positive Negative [facility] Protein Test strip Ql (U)Ord ered By: Lavon Vicente on 09-06-2023 Protein Ql (U) Negative Negative [facility] Urine blood detectionOrdered By: Lavon Vicente on 09-06-2023 RBC Ql (U) 25 /ul Negative [facility] Urine clarityOrdered By: Estefany Vicente on 09-06-2023 Clarity (U) Clear Clear [facility] Urine color determinationOrd ered By: Lavon Vicente on 09-06-2023 Color (U) Yellow Yellow [facility] Urine glucose detectionOrder ed By: Lavon Vicente on 09-06-2023 Glucose Ql (U) Normal mg/dl Normal [facility] Urine leukocyte esterase det ection by dipstickOrdered By: Lavon Vicente on 09-06-2023 Leukocyte esterase Test strip Ql (U) 500 /ul Negative [facility] Urine pHOrdered By: Lavon alcala on 09-06-2023 pH (U) 8.0 [pH] 5.0 - 8.0 [facility] Urine specific gravity measu rementOrdered By: Lavon Vicente on 09-06-2023 Specific gravity (U) [Rel density] 1.010 1.002-1.030 [facility] Urine urobilinogen measureme ntOrdered By: Lavon Vicente on 09-06-2023 Urobilinogen Ql (U) Normal mg/dl Normal [facility] Basophil percentageOrdered B y: Lavon Vicente on 08-11-2023 Basophil percentage 10.9 g/dL 12.0-15.0 [facility] Basophil percentage 121 mg/dL 74-106 [facility] Basophil percentage 8.4 g/dL 6.4-8.2 [facility] Basophil percentage 0.30 mg/dL 0.20-1.00 [facility] Basophil percentage 136 mmol/L 136-145 [facility] Basophil percentage 3.8 mmol/L 3.5-5.1 [facility] Basophil percentage 102 mmol/L 98-107 [facility] Basophils (Bld) [#/Vol] 7.8 10*3/uL 4.4-11.0 [facility] Determination of erythrocyte mean corpuscular volume (MCV)Ordered By: Lavon Vicente on 08-11-2023 MCV (RBC) [Entitic vol] 83.8 fL 81-99 [facility] Erythrocyte distribution wid th ratioOrdered By: Lavon Vicente on 08-11-2023 Erythrocyte distribution width (RBC) [Ratio] 15.6 % 11.6-14.6 [facility] Erythrocyte distribution wid th standard deviationOrdered By: Lavon Vicente on 08-11-2023 Erythrocyte distribution width (RBC) [Entitic vol] 47.7 fL 35.1-43.9 [facility] Hematocrit Auto (Bld) [Volum e fraction]Ordered By: Lavon Vicente on 08-11-2023 Hematocrit (Bld) [Volume fraction] 36.1 % 37-47 [facility] No Panel InformationOrdered By: Lavon Vicente on 08-11-2023 25.3 pg 27.0-32.0 [facility] 30.2 g/dL 32-36 [facility] 323 K/mm3 150-450 [facility] 9.4 fl 6.2-12.0 [facility] 175 mL/min >60 [facility] 212 mL/min >60 [facility] 39.0 RATIO 10-20 [facility] 5.4 g/dL 2.2-4.2 [facility] 0.6 RATIO 0.9-2.4 [facility] 98 U/L 45-117 [facility] 29 U/L 13-56 [facility] 27.0 mmol/L 21.0-32.0 [facility] RBC Auto (Bld) [#/Vol]Ordere d By: Lavon Vicente on 08-11-2023 RBC (Bld) [#/Vol] 4.31 10*6/uL 4.2-5.4 [facility] Serum or plasma calcium miguel angel urement (mass/volume)Ordered By: Lavon Vicente on 08-11-2023 Calcium [Mass/Vol] 9.6 mg/dL 8.5-10.1 [facility] Serum or plasma creatinine m easurement (mass/volume)Ordered By: Lavon Vicente on 08-11-2023 Creatinine [Mass/Vol] 0.41 mg/dL 0.55-1.02 [facility] Serum or plasma urea nitroge n measurement (mass/volume)Ordered By: Lavon Vicente on 08-11-2023 Urea nitrogen [Mass/Vol] 16 mg/dL 7-18 [facility] Thin prep Papanicolaou smear with manual screeningOrdered By: Lavon Vicente on 08-11-2023 Thin prep Papanicolaou smear with manual screening 3.0 g/dL 3.2-5.0 [facility] Thin prep Papanicolaou smear with manual screening 24 U/L 15-37 [facility] Thin prep Papanicolaou smear with manual screening 7 5-15 [facility] Basophil percentageOrdered B y: Lavon Vicente on 07-28-2023 Basophil percentage 10.1 g/dL 12.0-15.0 [facility] Basophil percentage 124 mg/dL 74-106 [facility] Basophil percentage 7.6 g/dL 6.4-8.2 [facility] Basophil percentage 0.20 mg/dL 0.20-1.00 [facility] Basophil percentage 140 mmol/L 136-145 [facility] Basophil percentage 3.7 mmol/L 3.5-5.1 [facility] Basophil percentage 104 mmol/L 98-107 [facility] Basophils (Bld) [#/Vol] 7.4 10*3/uL 4.4-11.0 [facility] Determination of erythrocyte mean corpuscular volume (MCV)Ordered By: Lavon Vicente on 07-28-2023 MCV (RBC) [Entitic vol] 84.0 fL 81-99 [facility] Erythrocyte distribution wid th ratioOrdered By: Lavon Vicente on 07-28-2023 Erythrocyte distribution width (RBC) [Ratio] 15.7 % 11.6-14.6 [facility] Erythrocyte distribution wid th standard deviationOrdered By: Lavon Vicente on 07-28-2023 Erythrocyte distribution width (RBC) [Entitic vol] 47.8 fL 35.1-43.9 [facility] Hematocrit Auto (Bld) [Volum e fraction]Ordered By: Lavon Vicente on 07-28-2023 Hematocrit (Bld) [Volume fraction] 34.1 % 37-47 [facility] No Panel InformationOrdered By: Lavon Vicente on 07-28-2023 24.9 pg 27.0-32.0 [facility] 29.6 g/dL 32-36 [facility] 362 K/mm3 150-450 [facility] 9.7 fl 6.2-12.0 [facility] 188 mL/min >60 [facility] 227 mL/min >60 [facility] 33.7 RATIO 10-20 [facility] 4.8 g/dL 2.2-4.2 [facility] 0.6 RATIO 0.9-2.4 [facility] 90 U/L 45-117 [facility] 31 U/L 13-56 [facility] 31.0 mmol/L 21.0-32.0 [facility] RBC Auto (Bld) [#/Vol]Ordere d By: Lavon Vicente on 07-28-2023 RBC (Bld) [#/Vol] 4.06 10*6/uL 4.2-5.4 [facility] Serum or plasma calcium miguel angel urement (mass/volume)Ordered By: Lavon Vicente on 07-28-2023 Calcium [Mass/Vol] 8.8 mg/dL 8.5-10.1 [facility] Serum or plasma creatinine m easurement (mass/volume)Ordered By: Lavon Vicente on 07-28-2023 Creatinine [Mass/Vol] 0.39 mg/dL 0.55-1.02 [facility] Serum or plasma urea nitroge n measurement (mass/volume)Ordered By: Lavon Vicente on 07-28-2023 Urea nitrogen [Mass/Vol] 13 mg/dL 7-18 [facility] Thin prep Papanicolaou smear with manual screeningOrdered By: Lavon Vicente on 07-28-2023 Thin prep Papanicolaou smear with manual screening 2.8 g/dL 3.2-5.0 [facility] Thin prep Papanicolaou smear with manual screening 19 U/L 15-37 [facility] Thin prep Papanicolaou smear with manual screening 5 5-15 [facility] Basophil percentageOrdered B y: Lavon Vicente on 07-14-2023 Basophil percentage 10.0 g/dL 12.0-15.0 [facility] Basophil percentage 102 mg/dL 74-106 [facility] Basophil percentage 6.8 g/dL 6.4-8.2 [facility] Basophil percentage 0.20 mg/dL 0.20-1.00 [facility] Basophil percentage 142 mmol/L 136-145 [facility] Basophil percentage 3.8 mmol/L 3.5-5.1 [facility] Basophil percentage 104 mmol/L 98-107 [facility] Basophils (Bld) [#/Vol] 7.3 10*3/uL 4.4-11.0 [facility] Determination of erythrocyte mean corpuscular volume (MCV)Ordered By: Lavon Vicente on 07-14-2023 MCV (RBC) [Entitic vol] 86.5 fL 81-99 [facility] Erythrocyte distribution wid th ratioOrdered By: Lavon Vicente on 07-14-2023 Erythrocyte distribution width (RBC) [Ratio] 16.2 % 11.6-14.6 [facility] Erythrocyte distribution wid th standard deviationOrdered By: Lavon Vicente on 07-14-2023 Erythrocyte distribution width (RBC) [Entitic vol] 50.8 fL 35.1-43.9 [facility] Hematocrit Auto (Bld) [Volum e fraction]Ordered By: Lavon Vicente on 07-14-2023 Hematocrit (Bld) [Volume fraction] 33.9 % 37-47 [facility] No Panel InformationOrdered By: Lavon Vicente on 07-14-2023 25.5 pg 27.0-32.0 [facility] 29.5 g/dL 32-36 [facility] 304 K/mm3 150-450 [facility] 258 mL/min >60 [facility] 312 mL/min >60 [facility] 47.8 RATIO 10-20 [facility] 4.0 g/dL 2.2-4.2 [facility] 0.7 RATIO 0.9-2.4 [facility] 70 U/L 45-117 [facility] 32 U/L 13-56 [facility] 30.0 mmol/L 21.0-32.0 [facility] 37.3 ng/mL [facility] Platelet mean volume Ankur-Ec ker (Bld) [Entitic vol]Ordered By: Lavon Vicente on 07-14-2023 Platelet mean volume (Bld) [Entitic vol] 10.0 fL 6.2-12.0 [facility] RBC Auto (Bld) [#/Vol]Ordere d By: Lavon Vicente on 07-14-2023 RBC (Bld) [#/Vol] 3.92 10*6/uL 4.2-5.4 [facility] Serum or plasma calcium miguel angel urement (mass/volume)Ordered By: Lavon Vicente on 07-14-2023 Calcium [Mass/Vol] 8.6 mg/dL 8.5-10.1 [facility] Serum or plasma creatinine m easurement (mass/volume)Ordered By: Lavon Vicente on 07-14-2023 Creatinine [Mass/Vol] 0.29 mg/dL 0.55-1.02 [facility] Serum or plasma thyroid stim ulating hormone (TSH) measurement (units/volume)Ordered By: Lavon Vicente on 07-14-2023 TSH Qn 1.99 uIU/mL 0.358-3.74 [facility] Serum or plasma urea nitroge n measurement (mass/volume)Ordered By: Lavon Vicente on 07-14-2023 Urea nitrogen [Mass/Vol] 14 mg/dL 7-18 [facility] Thin prep Papanicolaou smear with manual screeningOrdered By: Lavon Vicente on 07-14-2023 Thin prep Papanicolaou smear with manual screening 2.8 g/dL 3.2-5.0 [facility] Thin prep Papanicolaou smear with manual screening 23 U/L 15-37 [facility] Thin prep Papanicolaou smear with manual screening 8 5-15 [facility] Thin prep Papanicolaou smear with manual screening 1.48 ng/dL 0.76-1.46 [facility] Whole blood hemoglobin A1c/t otal hemoglobin ratio (mass fraction)Ordered By: Lavon Vicente on 07-14-2023 HbA1c (Bld) [Mass fraction] 5.6 % 3.8-5.6 [facility] Absolute lymphocyte countOrd ered By: Shari Pastor on 07-08-2023 Lymphocytes Auto (Unsp spec) [#/Vol] 1.94 10*3/uL 0.83-4.51 [facility] Automated lymphocyte count a s percentage of total leukocytesOrdered By: Shari Pastor on 07-08-2023 Lymphocytes/100 WBC Auto (Unsp spec) 34.4 % 19-41 [facility] Basophil percentageOrdered B y: Shari Pastor on 07-08-2023 Basophil percentage 11.6 g/dL 12.0-15.0 [facility] Basophil percentage 111 mg/dL 74-106 [facility] Basophil percentage 8.1 g/dL 6.4-8.2 [facility] Basophil percentage 0.30 mg/dL 0.20-1.00 [facility] Basophil percentage 134 mmol/L 136-145 [facility] Basophil percentage 3.4 mmol/L 3.5-5.1 [facility] Basophil percentage 103 mmol/L 98-107 [facility] Basophils (Bld) [#/Vol] 5.6 10*3/uL 4.4-11.0 [facility] Basophils (Bld) [#/Vol] 3.2 10*3/uL 2.0-7.7 [facility] Basophils/100 WBC (Bld) 56.9 % 47-70 [facility] Basophils/100 WBC (Bld) 7.6 % 0-10 [facility] Basophils/100 WBC (Bld) 0.0 % 0-5 [facility] Basophils/100 WBC (Bld) 0.4 % 0-1 [facility] Determination of erythrocyte mean corpuscular volume (MCV)Ordered By: Shari Pastor on 07-08-2023 MCV (RBC) [Entitic vol] 83.5 fL 81-99 [facility] Erythrocyte distribution wid th ratioOrdered By: Shari Pastor on 07-08-2023 Erythrocyte distribution width (RBC) [Ratio] 15.9 % 11.6-14.6 [facility] Erythrocyte distribution wid th standard deviationOrdered By: Shari Pastor on 07-08-2023 Erythrocyte distribution width (RBC) [Entitic vol] 48.1 fL 35.1-43.9 [facility] Hematocrit Auto (Bld) [Volum e fraction]Ordered By: Shari Pastor on 07-08-2023 Hematocrit (Bld) [Volume fraction] 38.0 % 37-47 [facility] Immature granulocytes/100 WB C Auto (Bld)Ordered By: Shari Pastor on 07-08-2023 Immature granulocytes/100 WBC (Bld) 0.700 % 0.0-0.9 [facility] No Panel InformationOrdered By: Shari Pastor on 07-08-2023 25.5 pg 27.0-32.0 [facility] 30.5 g/dL 32-36 [facility] 370 K/mm3 150-450 [facility] 0 % 0-5 [facility] 274 mL/min >60 [facility] 331 mL/min >60 [facility] 292.59 ml/min [facility] 32.4 RATIO 10-20 [facility] 4.9 g/dL 2.2-4.2 [facility] 0.7 RATIO 0.9-2.4 [facility] 72 U/L 45-117 [facility] 64 U/L 13-56 [facility] 28.0 mmol/L 21.0-32.0 [facility] Platelet mean volume Ankur-Ec ker (Bld) [Entitic vol]Ordered By: Shari Pastor on 07-08-2023 Platelet mean volume (Bld) [Entitic vol] 9.2 fL 6.2-12.0 [facility] RBC Auto (Bld) [#/Vol]Ordere d By: Shari Pastor on 07-08-2023 RBC (Bld) [#/Vol] 4.55 10*6/uL 4.2-5.4 [facility] Serum or plasma calcium miguel angel urement (mass/volume)Ordered By: Shari Pastor on 07-08-2023 Calcium [Mass/Vol] 8.6 mg/dL 8.5-10.1 [facility] Serum or plasma creatinine m easurement (mass/volume)Ordered By: Shari Pastor on 07-08-2023 Creatinine [Mass/Vol] 0.28 mg/dL 0.55-1.02 [facility] Serum or plasma urea nitroge n measurement (mass/volume)Ordered By: Shari Pastor on 07-08-2023 Urea nitrogen [Mass/Vol] 9 mg/dL 7-18 [facility] Thin prep Papanicolaou smear with manual screeningOrdered By: Shari Pastor on 07-08-2023 Thin prep Papanicolaou smear with manual screening 3.2 g/dL 3.2-5.0 [facility] Thin prep Papanicolaou smear with manual screening 42 U/L 15-37 [facility] Thin prep Papanicolaou smear with manual screening 3 5-15 [facility] Assessment of wrist artery p atency prior to arterial punctureOrdered By: Renzo Del Angel on 07-03-2023 Arterial patency Wrist artery --pre arterial puncture Positive [facility] Bacteria identified Cx Nom ( U)Ordered By: Renzo Del Angel on 07-03-2023 Culture, urine Pseudomonas aeruginosa [facility] Culture, urine Enterococcus faecalis [facility] Culture, urine Proteus mirabilis [facility] Culture, urine Pseudomonas aeruginosa [facility] Culture, urine Enterococcus faecalis [facility] Culture, urine Proteus mirabilis [facility] Base excessOrdered By: Renzo Del Angel on 07-03-2023 Base excess Calc (BldV) [Moles/Vol] 1 mmol/L -2-2 [facility] Base excess Calc (BldV) [Moles/Vol] -1 mmol/L -1.0-3.5 [facility] Basophil percentageOrdered B y: Renzo Del Angel on 07-03-2023 Basophil percentage 25 mmol/L [facility] Basophils/100 WBC (Bld) 90 % 95-99 [facility] Basophil percentageOrdered B y: Estevan Aguila on 07-03-2023 Basophil percentage 1.2 mmol/L 0.4-2.0 [facility] Blood lymphocytes/100 leukoc ytesOrdered By: Shari Pastor on 07-03-2023 Lymphocytes/100 WBC (Bld) 13 % 19-41 [facility] Blood monocytes/100 leukocyt esOrdered By: Shari Pastor on 07-03-2023 Monocytes/100 WBC (Bld) 4 % 0-10 [facility] Blood platelet adequacy dete ction by light microscopyOrdered By: Shari Pastor on 07-03-2023 Platelets LM Ql (Bld) ADEQUATE ADEQ [facility] Blood segmented neutrophils/ 100 leukocytesOrdered By: Shari Pastor on 07-03-2023 Segmented neutrophils/100 WBC (Bld) 83 % 47-70 [facility] CO2 (BldV) [Moles/Vol]Ordere d By: Renzo Del Angel on 07-03-2023 CO2 [Moles/Vol] 24 mmol/L 23-33 [facility] Measurement, pHOrdered By: Judd Del Angel on 07-03-2023 pH (Unsp spec) 7.47 [pH] 7.35-7.45 [facility] No Panel InformationOrdered By: Renzo Del Angel on 07-03-2023 ART [facility] R Radial [facility] Not entered [facility] Room Air [facility] 21.0 [facility] 24.3 mmol/L - [facility] PCO2 venousOrdered By: Renzo Del Angel on 07-03-2023 CO2 (BldV) [Partial pressure] 29.7 mm[Hg] 41-51 [facility] PO2 venousOrdered By: Renzo Del Angel on 07-03-2023 Oxygen (BldV) [Partial pressure] 90 mm[Hg] 25-40 [facility] Partial pressure of carbon d ioxide measurementOrdered By: Renzo Del Angel on 07-03-2023 CO2 (Dial fld) [Partial pressure] 33.5 mmHg 35-45 [facility] Partial pressure of oxygen m easurementOrdered By: Renzo Del Angel on 07-03-2023 Oxygen [Partial pressure] in Capillary blood by Transcutaneous O2 monitor 54 mmHG 75-100 [facility] RBC morphologyOrdered By: Cristi Pastor on 07-03-2023 RBC morphology finding Nom (Bld) NORM C+C NORMAL NORM C&C [facility] Total cell countOrdered By: Shari Pastor on 07-03-2023 Cells counted Molgen (Bld/Tiss) [#] 100 MANUAL DIFF [facility] Venous blood bicarbonate shantel surementOrdered By: Renzo Del Angel on 07-03-2023 HCO3 (BldCoV) [Moles/Vol] 23 mmol/L - [facility] Venous blood oxygen saturati on (pure mass fraction)Ordered By: Renzo Del Angel on 07-03-2023 SaO2% (BldV) [Pure mass fraction] 98 % 50-70 [facility] Venous blood pH measurementO rdered By: Renzo Del Angel on 07-03-2023 pH (BldV) 7.49 [pH] 7.32-7.42 [facility] Absolute lymphocyte countOrd ered By: Estevan Aguila on 07-02-2023 Lymphocytes Auto (Unsp spec) [#/Vol] 1.49 10*3/uL 0.83-4.51 [facility] Activated partial thrombopla stin time (aPTT) in platelet poor plasma by coagulation aOrdered By: Estevan Aguila on 07-02-2023 aPTT Coag (PPP) [Time] 29.3 s 24.1-36.2 [facility] Amorphous sediment detection in urine sediment by light microscopyOrdered By: Estevan Aguila on 07-02-2023 Amorphous sediment LM Ql (Urine sed) 1+ [facility] Automated lymphocyte count a s percentage of total leukocytesOrdered By: Estevan Aguila on 07-02-2023 Lymphocytes/100 WBC Auto (Unsp spec) 8.7 % 19-41 [facility] Basophil percentageOrdered B y: Estevan Aguila on 07-02-2023 Basophils/100 WBC (Bld) 0.3 % 0-1 [facility] Eosinophils/100 WBC (Bld) 0.3 % 0-5 [facility] Hemoglobin (Bld) [Mass/Vol] 11.9 g/dL 12.0-15.0 [facility] Monocytes/100 WBC (Bld) 4.0 % 0-10 [facility] Neutrophils (Bld) [#/Vol] 14.7 10*3/uL 2.0-7.7 [facility] Neutrophils/100 WBC (Bld) 86.2 % 47-70 [facility] WBC (Bld) [#/Vol] 17.1 10*3/uL 4.4-11.0 [facility] Basophil percentage 50-100 SEEN /hpf 0-5 [facility] Bilirubin [Mass/Vol] 0.50 mg/dL 0.20-1.00 [facility] Comment on above: For patients on eltr ombopag therapy, use of Dimension [place] TBIL is not recommended. Chloride [Moles/Vol] 101 mmol/L 98-107 [facility] Glucose [Mass/Vol] 162 mg/dL 74-106 [facility] Comment on above: Fasting Glucose resu lt greater than or equal to 126 mg/dL suggests DIABETES MELLITUS per A.D.A. criteria. Lactate [Moles/Vol] 5.7 mmol/L 0.4-2.0 [facility] Comment on above: Critical Result(s) C alled at: 23:28:10 07/02/2023 by: Boo Nieves. TO BLANKA RN (ED). Results read back by same. Potassium [Moles/Vol] 3.7 mmol/L 3.5-5.1 [facility] Protein [Mass/Vol] 9.2 g/dL 6.4-8.2 [facility] Sodium [Moles/Vol] 139 mmol/L 136-145 [facility] Bilirubin Test strip Ql (U)O rdered By: Estevan Aguila on 07-02-2023 Bilirubin Ql (U) 1 mg/dL Negative [facility] Comment on above: COLOR OF URINE MAY A FFECT DIPSTICK RESULTS. Determination of erythrocyte mean corpuscular volume (MCV)Ordered By: Estevan Aguila on 07-02-2023 MCV (RBC) [Entitic vol] 82.8 fL 81-99 [facility] Erythrocyte distribution wid th ratioOrdered By: Estevan Aguila on 07-02-2023 Erythrocyte distribution width (RBC) [Ratio] 15.8 % 11.6-14.6 [facility] Erythrocyte distribution wid th standard deviationOrdered By: Estevan Aguila on 07-02-2023 Erythrocyte distribution width (RBC) [Entitic vol] 47.5 fL 35.1-43.9 [facility] Hematocrit Auto (Bld) [Volum e fraction]Ordered By: Estevan Aguila on 07-02-2023 Hematocrit (Bld) [Volume fraction] 38.5 % 37-47 [facility] Immature granulocytes/100 WB C Auto (Bld)Ordered By: Estevan Aguila on 07-02-2023 Immature granulocytes/100 WBC (Bld) 0.500 % 0.0-0.9 [facility] Comment on above: IG% - Immature Granu locytes (promyelocytes, myelocytes and metamyelocytes) > 1% indicates that a LEFT SHIFT is Present. International normalized rat io (INR) calculationOrdered By: Estevan Aguila on 07-02-2023 INR Coag (PPP) [Relative time] 1.1 {INR} [facility] Ketones Test strip Ql (U)Ord ered By: Estevan Aguila on 07-02-2023 Ketones Ql (U) 150 mg/dl Negative [facility] Comment on above: CRITICAL VALUE *HCRI TICAL VALUE VERIFIED. CALLED TO [id number] Martha Quesada.RESULTS READ BACK BY SAME . Laboratory - Chemistry and C hemistry - challengeOrdered By: Estevan Aguila on 07-02-2023 Albumin/Globulin [Mass ratio] 0.6 {ratio} 0.9-2.4 [facility] ALP [Catalytic activity/Vol] 96 U/L 45-117 [facility] ALT [Catalytic activity/Vol] 40 U/L 13-56 [facility] CK [Catalytic activity/Vol] 137 U/L 26-192 [facility] CO2 [Moles/Vol] 27.0 mmol/L 21.0-32.0 [facility] Globulin (S) [Mass/Vol] 5.6 g/dL 2.2-4.2 [facility] Urea nitrogen/Creatinine [Mass ratio] 18.0 mg/mg 10-20 [facility] Laboratory - CoagulationOrde red By: Estevan Aguila on 07-02-2023 PT Coag (PPP) [Time] 14.2 s 11.7-14.9 [facility] Laboratory - Hematology and Cell countsOrdered By: Estevan Aguila on 07-02-2023 MCH (RBC) [Entitic mass] 25.6 pg 27.0-32.0 [facility] MCHC (RBC) [Mass/Vol] 30.9 g/dL 32-36 [facility] Nucleated RBC/100 WBC (Bld) [Ratio] 0 % 0-5 [facility] Platelets (Bld) [#/Vol] 408 10*3/uL 150-450 [facility] Laboratory - Microbiology an d Antimicrobial susceptibilityOrdered By: Estevan Aguila on 07-02-2023 SARS-CoV-2 (COVID-19) RNA NBA+probe Ql (Unsp spec) [facility] Mucus LM Ql (Urine sed)Order ed By: Estevan Aguila on 07-02-2023 Mucus Ql (Urine sed) 0 SEEN /hpf [facility] Nitrite Test strip Ql (U)Ord ered By: Estevan Aguila on 07-02-2023 Nitrite Ql (U) Positive Negative [facility] No Panel InformationOrdered By: Estevan Aguila on 07-02-2023 14.2 SECONDS 11.7-14.9 [facility] No growth in 5 days. [facility] Urine RBC 10-25 SEEN /hpf 0-5 [facility] 10-25 SEEN /hpf 0-5 [facility] Estimated Creatinine Clearance Calc 149.60 ml/min [facility] Estimated GFR (MDRD) Amer 149 mL/min >60 [facility] Comment on above: GFR Calc Estimated GFR (MDRD) Non-Af Amer 123 mL/min >60 [facility] Comment on above: Non- GFR Calc Troponin I High Sensitivity 35 pg/mL 3.0-54.0 [facility] Comment on above: Please Note: New [place] t Units and Gender Specific Reference Ranges. For more information see Policy Stat Procedure [place] High Sensitivity Troponin (TNIH) and attachments. 137 U/L 26-192 [facility] 35 pg/mL 3.0-54.0 [facility] No growth in 5 days. [facility] Platelet mean volume Ankur-Ec ker (Bld) [Entitic vol]Ordered By: Estevan Aguila on 07-02-2023 Platelet mean volume (Bld) [Entitic vol] 9.3 fL 6.2-12.0 [facility] Protein Test strip Ql (U)Ord ered By: Estevan Aguila on 07-02-2023 Protein Ql (U) 500 mg/dl Negative [facility] RBC Auto (Bld) [#/Vol]Ordere d By: Estevan Aguila on 07-02-2023 RBC (Bld) [#/Vol] 4.65 10*6/uL 4.2-5.4 [facility] Serum or plasma calcium miguel angel urement (mass/volume)Ordered By: Estevan Aguila on 07-02-2023 Calcium [Mass/Vol] 9.6 mg/dL 8.5-10.1 [facility] Serum or plasma creatinine m easurement (mass/volume)Ordered By: Estevan Aguila on 07-02-2023 Creatinine [Mass/Vol] 0.56 mg/dL 0.55-1.02 [facility] Comment on above: The validity of the calculated GFR & GFRAA in patients over 70 years has not been determined. Clinical correlation is essential. Serum or plasma thyroid stim ulating hormone (TSH) measurement (units/volume)Ordered By: Francisco Pitts on 07-02-2023 TSH Qn 1.86 uIU/mL 0.358-3.74 [facility] Serum or plasma urea nitroge n measurement (mass/volume)Ordered By: Estevan Aguila on 07-02-2023 Urea nitrogen [Mass/Vol] 10 mg/dL 7-18 [facility] Squamous epithelial cells de tection in urine sediment by light microscopyOrdered By: Estevan Aguila on 07-02-2023 Epithelial cells.squamous LM Ql (Urine sed) 0-5 SEEN /hpf 5-10 [facility] Thin prep Papanicolaou smear with manual screeningOrdered By: Estevan Aguila on 07-02-2023 Thin prep Papanicolaou smear with manual screening 3.6 g/dL 3.2-5.0 [facility] Thin prep Papanicolaou smear with manual screening 25 U/L 15-37 [facility] Thin prep Papanicolaou smear with manual screening 11 5-15 [facility] Transitional cells detection in urine sediment by light microscopyOrdered By: Estevan Aguila on 07-02-2023 Transitional cells LM Ql (Urine sed) 0-5 SEEN /hpf 0-5 [facility] Urine blood detectionOrdered By: Estevan Aguila on 07-02-2023 RBC Ql (U) 250 /ul Negative [facility] Urine clarityOrdered By: Alejandro Aguila on 07-02-2023 Clarity (U) Turbid Clear [facility] Urine color determinationOrd ered By: Estevan Aguila on 07-02-2023 Color (U) Yellow Yellow [facility] Urine glucose detectionOrder ed By: Estevan Aguila on 07-02-2023 Glucose Ql (U) Normal mg/dl Normal [facility] Urine leukocyte esterase det ection by dipstickOrdered By: Estevan Aguila on 07-02-2023 Leukocyte esterase Test strip Ql (U) 500 /ul Negative [facility] Urine pHOrdered By: Estevan woods on 07-02-2023 pH (U) 7.0 [pH] 5.0 - 8.0 [facility] Urine sediment bacteria coun t by microscopy (number/high power field)Ordered By: Estevan Aguila on 07-02-2023 Bacteria LM.HPF (Urine sed) [#/Area] 3 /[HPF] None Seen [facility] Urine specific gravity measu rementOrdered By: Estevan Aguila on 07-02-2023 Specific gravity (U) [Rel density] 1.010 1.002-1.030 [facility] Urine urobilinogen measureme ntOrdered By: Estevan Aguila on 07-02-2023 Urobilinogen Ql (U) 1 mg/dl Normal [facility] CT ABDOMEN/PELVIS W/O CONTRA STon 07-01-2023 [...] Date: 07/01/2023 1:15:25 PM Ordering Provider: LONI Martinez [facility] ([place]) Amorphous sediment detection in urine sediment by light microscopyOrdered By: Lavon Vicente on 03-09-2023 Amorphous sediment LM Ql (Urine sed) 1+ [facility] Basophil percentageOrdered B y: Lavon Vicente on 03-09-2023 Basophil percentage 10-25 SEEN /hpf 0-5 [facility] Bilirubin Test strip Ql (U)O rdered By: Lavon Vicente on 03-09-2023 Bilirubin Ql (U) Negative Negative [facility] Culture, urineOrdered By: Cristi Vicente on 03-09-2023 Bacteria identified Cx Nom (U) Pseudomonas aeruginosa [facility] Bacteria identified Cx Nom (U) Proteus mirabilis [facility] Bacteria identified Cx Nom (U) Vancomycin Resist. E. faecalis [facility] Ketones Test strip Ql (U)Ord ered By: Lavon Vicente on 03-09-2023 Ketones Ql (U) Negative Negative [facility] Magnesium ammonium phosphate crystal detectionOrdered By: Lavon Vicente on 03-09-2023 Triple phosphate crystals LM Ql (Urine sed) 1+ /hpf [facility] Mucus LM Ql (Urine sed)Order ed By: Lavon Vicente on 03-09-2023 Mucus Ql (Urine sed) 0 SEEN /hpf [facility] Nitrite Test strip Ql (U)Ord ered By: Lavon Vicente on 03-09-2023 Nitrite Ql (U) Positive Negative [facility] Protein Test strip Ql (U)Ord ered By: Lavon Vicente on 03-09-2023 Protein Ql (U) 30 mg/dl Negative [facility] Squamous epithelial cells de tection in urine sediment by light microscopyOrdered By: Lavon Vicente on 03-09-2023 Epithelial cells.squamous LM Ql (Urine sed) 5-10 SEEN /hpf 5-10 [facility] Urine blood detectionOrdered By: Lavon Vicente on 03-09-2023 RBC Ql (U) 10 /ul Negative [facility] RBC Ql (U) 0 SEEN /hpf 0-5 [facility] Urine clarityOrdered By: Estefany Vicente on 03-09-2023 Clarity (U) Cloudy Clear [facility] Urine color determinationOrd ered By: Lavon Vicente on 03-09-2023 Color (U) Yellow Yellow [facility] Urine glucose detectionOrder ed By: Lavon Vicente on 03-09-2023 Glucose Ql (U) Normal mg/dl Normal [facility] Urine leukocyte esterase det ection by dipstickOrdered By: Lavon Vicente on 03-09-2023 Leukocyte esterase Test strip Ql (U) 500 /ul Negative [facility] Urine pHOrdered By: Lavon alcala on 03-09-2023 pH (U) 7.0 [pH] 5.0 - 8.0 [facility] Urine sediment bacteria coun t by microscopy (number/high power field)Ordered By: Lavon Vicente on 03-09-2023 Bacteria LM.HPF (Urine sed) [#/Area] 1 /[HPF] None Seen [facility] Urine specific gravity measu rementOrdered By: Lavon Vicente on 03-09-2023 Specific gravity (U) [Rel density] 1.010 1.002-1.030 [facility] Urobilinogen Auto test strip Ql (U)Ordered By: Lavon Vicente on 03-09-2023 Urobilinogen Ql (U) Normal mg/dl Normal [facility] Throat specimen bacteria irma ntification by cultureOrdered By: Lavon Vicente on 02-26-2023 Bacteria identified Cx Nom (Throat) streptococcus isolated. [facility] Bacteria identified Cx Nom ( Wound)Ordered By: Lavon Vicente on 02-22-2023 Routine wound culture Meth. resistant St aph. aureus [facility] Routine wound culture Streptococcus group A [facility] Gram stain for investigation of transfusion reactionOrdered By: Lavon Vicente on 02-22-2023 Microscopic observation Gram stain Nom (Unsp spec) [facility] Basophil percentageOrdered B y: Lavon Vicente on 02-02-2023 Basophils (Bld) [#/Vol] 9.1 10*3/uL 4.4-11.0 [facility] Blood erythrocytes count (nu mber/volume)Ordered By: Lavon Vicente on 02-02-2023 RBC (Bld) [#/Vol] 4.01 10*6/uL 4.2-5.4 [facility] Blood hemoglobin measurement (mass/volume)Ordered By: Lavon Vicente on 02-02-2023 Hemoglobin (Bld) [Mass/Vol] 10.1 g/dL 12.0-15.0 [facility] Blood platelet mean volumeOr dered By: Lavon Vicente on 02-02-2023 Platelet mean volume (Bld) [Entitic vol] 9.4 fL 6.2-12.0 [facility] Determination of erythrocyte mean corpuscular volume (MCV)Ordered By: Lavon Vicente on 02-02-2023 MCV (RBC) [Entitic vol] 83.8 fL 81-99 [facility] Hematocrit Auto (Bld) [Volum e fraction]Ordered By: Lavon Vicente on 02-02-2023 Hematocrit (Bld) [Volume fraction] 33.6 % 37-47 [facility] MCHC Auto (RBC) [Mass/Vol]Or dered By: Lavon Vicente on 02-02-2023 MCHC (RBC) [Mass/Vol] 30.1 g/dL 32-36 [facility] No Panel InformationOrdered By: Lavon Vicente on 02-02-2023 25.2 pg 27.0-32.0 [facility] 16.0 % 11.6-14.6 [facility] 49.2 fl 35.1-43.9 [facility] Platelets bldOrdered By: Estefany Vicente on 02-02-2023 Platelets (Bld) [#/Vol] 346 10*3/uL 150-450 [facility] Basophil percentageOrdered B y: Lavon Vicente on 02-01-2023 Basophils (Bld) [#/Vol] 9.9 10*3/uL 4.4-11.0 [facility] Blood erythrocytes count (nu mber/volume)Ordered By: Lavon Vicente on 02-01-2023 RBC (Bld) [#/Vol] 4.33 10*6/uL 4.2-5.4 [facility] Blood hemoglobin measurement (mass/volume)Ordered By: Lavon Vicente on 02-01-2023 Hemoglobin (Bld) [Mass/Vol] 10.9 g/dL 12.0-15.0 [facility] Blood platelet mean volumeOr dered By: Lavon Vicente on 02-01-2023 Platelet mean volume (Bld) [Entitic vol] 9.4 fL 6.2-12.0 [facility] Determination of erythrocyte mean corpuscular volume (MCV)Ordered By: Lavon Vicente on 02-01-2023 MCV (RBC) [Entitic vol] 86.1 fL 81-99 [facility] Hematocrit Auto (Bld) [Volum e fraction]Ordered By: Lavon Vicente on 02-01-2023 Hematocrit (Bld) [Volume fraction] 37.3 % 37-47 [facility] MCHC Auto (RBC) [Mass/Vol]Or dered By: Lavon Vicente on 02-01-2023 MCHC (RBC) [Mass/Vol] 29.2 g/dL 32-36 [facility] No Panel InformationOrdered By: Lavon Vicente on 02-01-2023 25.2 pg 27.0-32.0 [facility] 16.2 % 11.6-14.6 [facility] 51.0 fl 35.1-43.9 [facility] Platelets bldOrdered By: Estefany Vicente on 02-01-2023 Platelets (Bld) [#/Vol] 359 10*3/uL 150-450 [facility] Absolute lymphocyte countOrd ered By: Christine Lee on 01-26-2023 Lymphocytes Auto (Unsp spec) [#/Vol] 3.16 10*3/uL 0.83-4.51 [facility] Basophil percentageOrdered B y: Christine Lee on 01-26-2023 Basophil percentage 112 mg/dL 74-106 [facility] Basophil percentage 7.7 g/dL 6.4-8.2 [facility] Basophil percentage 0.20 mg/dL 0.20-1.00 [facility] Basophil percentage 139 mmol/L 136-145 [facility] Basophil percentage 3.9 mmol/L 3.5-5.1 [facility] Basophil percentage 103 mmol/L 98-107 [facility] Basophils (Bld) [#/Vol] 9.0 10*3/uL 4.4-11.0 [facility] Basophils (Bld) [#/Vol] 4.8 10*3/uL 2.0-7.7 [facility] Basophils/100 WBC (Bld) 53.6 % 47-70 [facility] Basophils/100 WBC (Bld) 2.8 % 0-5 [facility] Basophils/100 WBC (Bld) 0.7 % 0-1 [facility] Blood erythrocytes count (nu mber/volume)Ordered By: Christine Lee on 01-26-2023 RBC (Bld) [#/Vol] 4.28 10*6/uL 4.2-5.4 [facility] Blood hemoglobin measurement (mass/volume)Ordered By: Christine Lee on 01-26-2023 Hemoglobin (Bld) [Mass/Vol] 11.0 g/dL 12.0-15.0 [facility] Blood lymphocytes/100 leukoc ytesOrdered By: Christine Lee on 01-26-2023 Lymphocytes/100 WBC (Bld) 35.3 % 19-41 [facility] Blood monocytes/100 leukocyt esOrdered By: Christine Lee on 01-26-2023 Monocytes/100 WBC (Bld) 7.0 % 0-10 [facility] Blood platelet mean volumeOr dered By: Christine Lee on 01-26-2023 Platelet mean volume (Bld) [Entitic vol] 8.9 fL 6.2-12.0 [facility] Determination of erythrocyte mean corpuscular volume (MCV)Ordered By: Christine Lee on 01-26-2023 MCV (RBC) [Entitic vol] 84.6 fL 81-99 [facility] Hematocrit Auto (Bld) [Volum e fraction]Ordered By: Christine Lee on 01-26-2023 Hematocrit (Bld) [Volume fraction] 36.2 % 37-47 [facility] MCHC Auto (RBC) [Mass/Vol]Or dered By: Christine Lee on 01-26-2023 MCHC (RBC) [Mass/Vol] 30.4 g/dL 32-36 [facility] No Panel InformationOrdered By: Christine Lee on 01-26-2023 25.7 pg 27.0-32.0 [facility] 16.4 % 11.6-14.6 [facility] 50.8 fl 35.1-43.9 [facility] 0.600 % 0.0-0.9 [facility] 0 % 0-5 [facility] 151 mL/min >60 [facility] 183 mL/min >60 [facility] 109.26 ml/min [facility] 23.6 RATIO 10-20 [facility] 4.9 g/dL 2.2-4.2 [facility] 95 U/L 45-117 [facility] 29 U/L 13-56 [facility] 32.0 mmol/L 21.0-32.0 [facility] Platelets bldOrdered By: Diya Lee on 01-26-2023 Platelets (Bld) [#/Vol] 370 10*3/uL 150-450 [facility] Serum or plasma albumin miguel angel urement (mass/volume)Ordered By: Christine Lee on 01-26-2023 Albumin [Mass/Vol] 2.8 g/dL 3.2-5.0 [facility] Serum or plasma albumin/glob ulin mass ratioOrdered By: Christine Lee on 01-26-2023 Albumin/Globulin [Mass ratio] 0.6 {ratio} 0.9-2.4 [facility] Serum or plasma calcium miguel angel urement (mass/volume)Ordered By: Christine Lee on 01-26-2023 Calcium [Mass/Vol] 8.8 mg/dL 8.5-10.1 [facility] Serum or plasma creatinine m easurement (mass/volume)Ordered By: Christine Lee on 01-26-2023 Creatinine [Mass/Vol] 0.47 mg/dL 0.55-1.02 [facility] Serum or plasma urea nitroge n measurement (mass/volume)Ordered By: Christine Lee on 01-26-2023 Urea nitrogen [Mass/Vol] 11 mg/dL 7-18 [facility] Thin prep Papanicolaou smear with manual screeningOrdered By: Christine Lee on 01-26-2023 Thin prep Papanicolaou smear with manual screening 21 U/L 15-37 [facility] Thin prep Papanicolaou smear with manual screening 4 5-15 [facility] Absolute lymphocyte countOrd ered By: Lavon Vicente on 01-21-2023 Lymphocytes Auto (Unsp spec) [#/Vol] 3.22 10*3/uL 0.83-4.51 [facility] Bacteria identified Cx Nom ( U)Ordered By: Lavon Vicente on 01-21-2023 Culture, urine Morganella morganii sp morgani [facility] Culture, urine Pseudomonas aeruginosa [facility] Basophil percentageOrdered B y: Lavon Vicente on 01-21-2023 Basophils (Bld) [#/Vol] 11.2 10*3/uL 4.4-11.0 [facility] Basophils (Bld) [#/Vol] 6.7 10*3/uL 2.0-7.7 [facility] Basophils/100 WBC (Bld) 59.9 % 47-70 [facility] Basophils/100 WBC (Bld) 3.3 % 0-5 [facility] Basophils/100 WBC (Bld) 0.5 % 0-1 [facility] Bilirubin Test strip Ql (U)O rdered By: Lavon Vicente on 01-21-2023 Bilirubin Ql (U) 6 mg/dL Negative [facility] Blood erythrocytes count (nu mber/volume)Ordered By: Lavon Vicente on 01-21-2023 RBC (Bld) [#/Vol] 4.40 10*6/uL 4.2-5.4 [facility] Blood hemoglobin measurement (mass/volume)Ordered By: Lavon Vicente on 01-21-2023 Hemoglobin (Bld) [Mass/Vol] 10.9 g/dL 12.0-15.0 [facility] Blood lymphocytes/100 leukoc ytesOrdered By: Lavon Vicente on 01-21-2023 Lymphocytes/100 WBC (Bld) 28.8 % 19-41 [facility] Blood monocytes/100 leukocyt esOrdered By: Lavon Vicente on 01-21-2023 Monocytes/100 WBC (Bld) 7.1 % 0-10 [facility] Blood platelet mean volumeOr dered By: Lavon Vicente on 01-21-2023 Platelet mean volume (Bld) [Entitic vol] 9.9 fL 6.2-12.0 [facility] Determination of erythrocyte mean corpuscular volume (MCV)Ordered By: Lavon Vicente on 01-21-2023 MCV (RBC) [Entitic vol] 85.7 fL 81-99 [facility] Hematocrit Auto (Bld) [Volum e fraction]Ordered By: Lavon Vicente on 01-21-2023 Hematocrit (Bld) [Volume fraction] 37.7 % 37-47 [facility] Ketones Test strip Ql (U)Ord ered By: Lavon Vicente on 01-21-2023 Ketones Ql (U) 5 mg/dl Negative [facility] MCHC Auto (RBC) [Mass/Vol]Or dered By: Lavon Vicente on 01-21-2023 MCHC (RBC) [Mass/Vol] 28.9 g/dL 32-36 [facility] Nitrite Test strip Ql (U)Ord ered By: Lavon Vicente on 01-21-2023 Nitrite Ql (U) Positive Negative [facility] No Panel InformationOrdered By: Lavon Vicente on 01-21-2023 24.8 pg 27.0-32.0 [facility] 17.1 % 11.6-14.6 [facility] 53.5 fl 35.1-43.9 [facility] 0.400 % 0.0-0.9 [facility] 0 % 0-5 [facility] Platelets bldOrdered By: Estefany Vicente on 01-21-2023 Platelets (Bld) [#/Vol] 352 10*3/uL 150-450 [facility] Protein Test strip Ql (U)Ord ered By: Lavon Vicente on 01-21-2023 Protein Ql (U) 500 mg/dl Negative [facility] Urine blood detectionOrdered By: Lavon Vicente on 01-21-2023 RBC Ql (U) 150 /ul Negative [facility] Urine clarityOrdered By: Estefany Vicente on 01-21-2023 Clarity (U) Cloudy Clear [facility] Urine color determinationOrd ered By: Lavon Vicente on 01-21-2023 Color (U) Brown Yellow [facility] Urine glucose detectionOrder ed By: Lavon Vicente on 01-21-2023 Glucose Ql (U) Normal mg/dl Normal [facility] Urine leukocyte esterase det ection by dipstickOrdered By: Lavon Vicente on 01-21-2023 Leukocyte esterase Test strip Ql (U) 100 /ul Negative [facility] Urine pHOrdered By: Lavon alcala on 01-21-2023 pH (U) 8.0 [pH] 5.0 - 8.0 [facility] Urine specific gravity measu rementOrdered By: Lavon Vicente on 01-21-2023 Specific gravity (U) [Rel density] 1.015 1.002-1.030 [facility] Urobilinogen Auto test strip Ql (U)Ordered By: Lavon Vicente on 01-21-2023 Urobilinogen Ql (U) 8 mg/dl Normal [facility] Absolute lymphocyte countOrd ered By: Dr. Pastor on 11-16-2022 Lymphocytes Auto (Unsp spec) [#/Vol] 1.85 10*3/uL 0.83-4.51 [facility] Bacteria identified Cx Nom ( U)Ordered By: Nancy Wilcox on 11-16-2022 Culture, urine Escherichia coli [facility] Culture, urine Vancomycin Resist. E . faecium [facility] Basophil percentageOrdered B y: Dr. Pastor on 11-16-2022 Basophil percentage 121 mg/dL 74-106 [facility] Basophil percentage 7.3 g/dL 6.4-8.2 [facility] Basophil percentage 0.50 mg/dL 0.20-1.00 [facility] Basophil percentage 135 mmol/L 136-145 [facility] Basophil percentage 3.1 mmol/L 3.5-5.1 [facility] Basophil percentage 100 mmol/L 98-107 [facility] Basophils (Bld) [#/Vol] 8.8 10*3/uL 4.4-11.0 [facility] Basophils (Bld) [#/Vol] 6.1 10*3/uL 2.0-7.7 [facility] Basophils/100 WBC (Bld) 70.0 % 47-70 [facility] Basophils/100 WBC (Bld) 1.9 % 0-5 [facility] Basophils/100 WBC (Bld) 0.3 % 0-1 [facility] Blood erythrocytes count (nu mber/volume)Ordered By: Dr. Pastor on 11-16-2022 RBC (Bld) [#/Vol] 4.72 10*6/uL 4.2-5.4 [facility] Blood hemoglobin measurement (mass/volume)Ordered By: Dr. Pastor on 11-16-2022 Hemoglobin (Bld) [Mass/Vol] 12.2 g/dL 12.0-15.0 [facility] Blood lymphocytes/100 leukoc ytesOrdered By: Dr. Pastor on 11-16-2022 Lymphocytes/100 WBC (Bld) 21.1 % 19-41 [facility] Blood monocytes/100 leukocyt esOrdered By: Dr. Pastor on 11-16-2022 Monocytes/100 WBC (Bld) 6.4 % 0-10 [facility] Blood platelet mean volumeOr dered By: Dr. Pastor on 11-16-2022 Platelet mean volume (Bld) [Entitic vol] 9.5 fL 6.2-12.0 [facility] Determination of erythrocyte mean corpuscular volume (MCV)Ordered By: Dr. Pastor on 11-16-2022 MCV (RBC) [Entitic vol] 82.8 fL 81-99 [facility] Hematocrit Auto (Bld) [Volum e fraction]Ordered By: Dr. Pastor on 11-16-2022 Hematocrit (Bld) [Volume fraction] 39.1 % 37-47 [facility] MCHC Auto (RBC) [Mass/Vol]Or dered By: Dr. Pastor on 11-16-2022 MCHC (RBC) [Mass/Vol] 31.2 g/dL 32-36 [facility] No Panel InformationOrdered By: Dr. Pastor on 11-16-2022 25.8 pg 27.0-32.0 [facility] 15.9 % 11.6-14.6 [facility] 48.6 fl 35.1-43.9 [facility] 0.300 % 0.0-0.9 [facility] 0 % 0-5 [facility] 193 mL/min >60 [facility] 233 mL/min >60 [facility] 136.62 ml/min [facility] 42.3 RATIO 10-20 [facility] 4.6 g/dL 2.2-4.2 [facility] 90 U/L 45-117 [facility] 42 U/L 13-56 [facility] 26.0 mmol/L 21.0-32.0 [facility] Platelets bldOrdered By: Dr. Pastor on 11-16-2022 Platelets (Bld) [#/Vol] 260 10*3/uL 150-450 [facility] Serum or plasma albumin miguel angel urement (mass/volume)Ordered By: Dr. Pastor on 11-16-2022 Albumin [Mass/Vol] 2.7 g/dL 3.2-5.0 [facility] Serum or plasma albumin/glob ulin mass ratioOrdered By: Dr. Pastor on 11-16-2022 Albumin/Globulin [Mass ratio] 0.6 {ratio} 0.9-2.4 [facility] Serum or plasma calcium miguel angel urement (mass/volume)Ordered By: Dr. Pastor on 11-16-2022 Calcium [Mass/Vol] 8.8 mg/dL 8.5-10.1 [facility] Serum or plasma creatinine m easurement (mass/volume)Ordered By: Dr. Pastor on 11-16-2022 Creatinine [Mass/Vol] 0.38 mg/dL 0.55-1.02 [facility] Serum or plasma urea nitroge n measurement (mass/volume)Ordered By: Dr. Pastor on 11-16-2022 Urea nitrogen [Mass/Vol] 16 mg/dL 7-18 [facility] Thin prep Papanicolaou smear with manual screeningOrdered By: Dr. Pastor on 11-16-2022 Thin prep Papanicolaou smear with manual screening 25 U/L 15-37 [facility] Thin prep Papanicolaou smear with manual screening 9 5-15 [facility] Basophil percentageOrdered B y: Nancy Wilcox on 11-15-2022 Basophil percentage 1.1 mmol/L 0.4-2.0 [facility] No Panel InformationOrdered By: Dr. Howe on 11-15-2022 2.0 mg/dL 1.6-2.6 [facility] No Panel InformationOrdered By: Dr. River on 11-15-2022 No growth in 5 days. [facility] Absolute lymphocyte countOrd ered By: Nancy Wilcox on 11-14-2022 Lymphocytes Auto (Unsp spec) [#/Vol] 3.91 10*3/uL 0.83-4.51 [facility] Bacteria identified Cx Nom ( U)Ordered By: Nancy Wilcox on 11-14-2022 Culture, urine Escherichia coli [facility] Culture, urine Vancomycin Resist. E . faecium [facility] Bacteria identified Cx Nom ( U)Ordered By: Lavon Vicente on 11-14-2022 Culture, urine Vancomycin Resist. E . faecium [facility] Basophil percentageOrdered B y: Nancy Wilcox on 11-14-2022 Basophil percentage 116 mg/dL 74-106 [facility] Basophil percentage 8.5 g/dL 6.4-8.2 [facility] Basophil percentage 0.40 mg/dL 0.20-1.00 [facility] Basophil percentage 140 mmol/L 136-145 [facility] Basophil percentage 3.3 mmol/L 3.5-5.1 [facility] Basophil percentage 101 mmol/L 98-107 [facility] Basophil percentage 2.3 mmol/L 0.4-2.0 [facility] Basophils (Bld) [#/Vol] 12.6 10*3/uL 4.4-11.0 [facility] Basophils (Bld) [#/Vol] 7.3 10*3/uL 2.0-7.7 [facility] Basophils/100 WBC (Bld) 57.6 % 47-70 [facility] Basophils/100 WBC (Bld) 1.6 % 0-5 [facility] Basophils/100 WBC (Bld) 0.4 % 0-1 [facility] Basophil percentage 50-100 SEEN /hpf 0-5 [facility] Bilirubin Test strip Ql (U)O rdered By: Nancy Wilcox on 11-14-2022 Bilirubin Ql (U) 1 mg/dL Negative [facility] Blood erythrocytes count (nu mber/volume)Ordered By: Nancy Wilcox on 11-14-2022 RBC (Bld) [#/Vol] 5.04 10*6/uL 4.2-5.4 [facility] Blood hemoglobin measurement (mass/volume)Ordered By: Nancy Wilcox on 11-14-2022 Hemoglobin (Bld) [Mass/Vol] 13.2 g/dL 12.0-15.0 [facility] Blood lymphocytes/100 leukoc ytesOrdered By: Nancy Wilcox on 11-14-2022 Lymphocytes/100 WBC (Bld) 31.0 % 19-41 [facility] Blood monocytes/100 leukocyt esOrdered By: Nancy Wilcox on 11-14-2022 Monocytes/100 WBC (Bld) 9.1 % 0-10 [facility] Blood platelet mean volumeOr dered By: Nancy Wilcox on 11-14-2022 Platelet mean volume (Bld) [Entitic vol] 9.4 fL 6.2-12.0 [facility] Determination of erythrocyte mean corpuscular volume (MCV)Ordered By: Nancy Wilcox on 11-14-2022 MCV (RBC) [Entitic vol] 82.7 fL 81-99 [facility] Hematocrit Auto (Bld) [Volum e fraction]Ordered By: Nancy Wilcox on 11-14-2022 Hematocrit (Bld) [Volume fraction] 41.7 % 37-47 [facility] Hyaline casts LM.LPF (Urine sed) [#/Area]Ordered By: Nancy Wilcox on 11-14-2022 Hyaline casts (Urine sed) [#/Area] 0 /[LPF] 0-5 [facility] INR in Blood by Coagulation assayOrdered By: Nancy Wilcox on 11-14-2022 INR Coag (Bld) [Relative time] 1.1 {INR} [facility] Ketones Test strip Ql (U)Ord ered By: Nancy Wilcox on 11-14-2022 Ketones Ql (U) 15 mg/dl Negative [facility] MCHC Auto (RBC) [Mass/Vol]Or dered By: Nancy Wilcox on 11-14-2022 MCHC (RBC) [Mass/Vol] 31.7 g/dL 32-36 [facility] Mucus LM Ql (Urine sed)Order ed By: Nancy Wilcox on 11-14-2022 Mucus Ql (Urine sed) 1+ /hpf [facility] Nitrite Test strip Ql (U)Ord ered By: Nancy Wilcox on 11-14-2022 Nitrite Ql (U) Negative Negative [facility] No Panel InformationOrdered By: Nancy Wilocx on 11-14-2022 No growth in 5 days. [facility] 26.2 pg 27.0-32.0 [facility] 16.8 % 11.6-14.6 [facility] 50.3 fl 35.1-43.9 [facility] 0.300 % 0.0-0.9 [facility] 0 % 0-5 [facility] 13.8 SECONDS 11.7-14.9 [facility] 20.8 Seconds 24.1-36.2 [facility] 88 mL/min >60 [facility] 106 mL/min >60 [facility] 69.22 ml/min [facility] 29.5 RATIO 10-20 [facility] 5.2 g/dL 2.2-4.2 [facility] 99 U/L 45-117 [facility] 72 U/L 13-56 [facility] 31.0 mmol/L 21.0-32.0 [facility] 0-5 SEEN /hpf 0-5 [facility] Platelets bldOrdered By: Rebecca Wilcox on 11-14-2022 Platelets (Bld) [#/Vol] 376 10*3/uL 150-450 [facility] Protein Test strip Ql (U)Ord ered By: Nancy Wilcox on 11-14-2022 Protein Ql (U) 500 mg/dl Negative [facility] Serum or plasma albumin miguel angel urement (mass/volume)Ordered By: Nancy Wilcox on 11-14-2022 Albumin [Mass/Vol] 3.3 g/dL 3.2-5.0 [facility] Serum or plasma albumin/glob ulin mass ratioOrdered By: Nancy Wilcox on 11-14-2022 Albumin/Globulin [Mass ratio] 0.6 {ratio} 0.9-2.4 [facility] Serum or plasma calcium miguel angel urement (mass/volume)Ordered By: Nancy Wilcox on 11-14-2022 Calcium [Mass/Vol] 9.4 mg/dL 8.5-10.1 [facility] Serum or plasma creatinine m easurement (mass/volume)Ordered By: Nancy Wilcox on 11-14-2022 Creatinine [Mass/Vol] 0.75 mg/dL 0.55-1.02 [facility] Serum or plasma urea nitroge n measurement (mass/volume)Ordered By: Nancy Wilcox on 11-14-2022 Urea nitrogen [Mass/Vol] 22 mg/dL 7-18 [facility] Squamous epithelial cells de tection in urine sediment by light microscopyOrdered By: Nancy Wilcox on 11-14-2022 Epithelial cells.squamous LM Ql (Urine sed) 10-25 SEEN /hpf 5-10 [facility] Thin prep Papanicolaou smear with manual screeningOrdered By: Nancy Wilcox on 11-14-2022 Thin prep Papanicolaou smear with manual screening 55 U/L 15-37 [facility] Thin prep Papanicolaou smear with manual screening 8 5-15 [facility] Urine blood detectionOrdered By: Nancy Wilcox on 11-14-2022 RBC Ql (U) 250 /ul Negative [facility] RBC Ql (U) 10-25 SEEN /hpf 0-5 [facility] Urine clarityOrdered By: Rebecca Wilcox on 11-14-2022 Clarity (U) Cloudy Clear [facility] Urine color determinationOrd ered By: Nancy Wilcox on 11-14-2022 Color (U) Yellow Yellow [facility] Urine glucose detectionOrder ed By: Nancy Wilcox on 11-14-2022 Glucose Ql (U) Normal mg/dl Normal [facility] Urine leukocyte esterase det ection by dipstickOrdered By: Nancy Wilcox on 11-14-2022 Leukocyte esterase Test strip Ql (U) 500 /ul Negative [facility] Urine pHOrdered By: Nancy martinez on 11-14-2022 pH (U) 6.5 [pH] 5.0 - 8.0 [facility] Urine sediment bacteria coun t by microscopy (number/high power field)Ordered By: Nancy Wilcox on 11-14-2022 Bacteria LM.HPF (Urine sed) [#/Area] 2 /[HPF] None Seen [facility] Urine specific gravity measu rementOrdered By: Nancy Wilcox on 11-14-2022 Specific gravity (U) [Rel density] 1.020 1.002-1.030 [facility] Urobilinogen Auto test strip Ql (U)Ordered By: Nancy Wilcox on 11-14-2022 Urobilinogen Ql (U) 1 mg/dl Normal [facility] Bacteria identified Cx Nom ( U)Ordered By: Dr. River on 11-13-2022 Culture, urine Vancomycin Resist. E . faecium [facility] Bacteria identified Cx Nom ( U)Ordered By: Lavon Vicente on 11-12-2022 Culture, urine Vancomycin Resist. E . faecium [facility] Bilirubin Test strip Ql (U)O rdered By: Lavon Vicente on 11-12-2022 Bilirubin Ql (U) 1 mg/dL Negative [facility] Ketones Test strip Ql (U)Ord ered By: Lavon Vicente on 11-12-2022 Ketones Ql (U) 150 mg/dl Negative [facility] Nitrite Test strip Ql (U)Ord ered By: Lavon Vicente on 11-12-2022 Nitrite Ql (U) Negative Negative [facility] No Panel InformationOrdered By: Lavon Vicente on 11-12-2022 [facility] Negative < 50 ng/mL [facility] Protein Test strip Ql (U)Ord ered By: Lavon Vicente on 11-12-2022 Protein Ql (U) 100 mg/dl Negative [facility] Urine blood detectionOrdered By: Lavon Vicente on 11-12-2022 RBC Ql (U) 250 /ul Negative [facility] Urine clarityOrdered By: Estefany Vicente on 11-12-2022 Clarity (U) Sl. Cloudy Clear [facility] Urine color determinationOrd ered By: Lavon Vicente on 11-12-2022 Color (U) Yellow Yellow [facility] Urine glucose detectionOrder ed By: Lavon Vicente on 11-12-2022 Glucose Ql (U) Normal mg/dl Normal [facility] Urine leukocyte esterase det ection by dipstickOrdered By: Lavon Vicente on 11-12-2022 Leukocyte esterase Test strip Ql (U) 500 /ul Negative [facility] Urine pHOrdered By: Lavon alcala on 11-12-2022 pH (U) 6.0 [pH] 5.0 - 8.0 [facility] Urine phencyclidine (PCP) de tectionOrdered By: Lavon Vicente on 11-12-2022 Phencyclidine Ql (U) Negative < 25 ng/mL [facility] Urine specific gravity measu rementOrdered By: Lavon Vicente on 11-12-2022 Specific gravity (U) [Rel density] 1.020 1.002-1.030 [facility] Urobilinogen Auto test strip Ql (U)Ordered By: Lavon Vicente on 11-12-2022 Urobilinogen Ql (U) Normal mg/dl Normal [facility] Basophil percentageOrdered B y: Lavon Vicente on 11-11-2022 Basophil percentage 102 mg/dL 74-106 [facility] Basophil percentage 7.7 g/dL 6.4-8.2 [facility] Basophil percentage 0.40 mg/dL 0.20-1.00 [facility] Basophil percentage 139 mmol/L 136-145 [facility] Basophil percentage 3.3 mmol/L 3.5-5.1 [facility] Basophil percentage 105 mmol/L 98-107 [facility] Basophil percentage 26.0 umol/L 11-32 [facility] Basophils (Bld) [#/Vol] 11.2 10*3/uL 4.4-11.0 [facility] Blood erythrocytes count (nu mber/volume)Ordered By: Lavon Vicente on 11-11-2022 RBC (Bld) [#/Vol] 4.60 10*6/uL 4.2-5.4 [facility] Blood hemoglobin measurement (mass/volume)Ordered By: Lavon Vicente on 11-11-2022 Hemoglobin (Bld) [Mass/Vol] 11.9 g/dL 12.0-15.0 [facility] Blood platelet mean volumeOr dered By: Lavon Vicente on 11-11-2022 Platelet mean volume (Bld) [Entitic vol] 9.3 fL 6.2-12.0 [facility] Determination of erythrocyte mean corpuscular volume (MCV)Ordered By: Lavon Vicente on 11-11-2022 MCV (RBC) [Entitic vol] 81.5 fL 81-99 [facility] Hematocrit Auto (Bld) [Volum e fraction]Ordered By: Lavon Vicente on 11-11-2022 Hematocrit (Bld) [Volume fraction] 37.5 % 37-47 [facility] MCHC Auto (RBC) [Mass/Vol]Or dered By: Lavon Vicente on 11-11-2022 MCHC (RBC) [Mass/Vol] 31.7 g/dL 32-36 [facility] No Panel InformationOrdered By: Lavon Vicente on 11-11-2022 25.9 pg 27.0-32.0 [facility] 16.0 % 11.6-14.6 [facility] 47.1 fl 35.1-43.9 [facility] 127 mL/min >60 [facility] 154 mL/min >60 [facility] 40.7 RATIO 10-20 [facility] 4.6 g/dL 2.2-4.2 [facility] 94 U/L 45-117 [facility] 72 U/L 13-56 [facility] 21.0 mmol/L 21.0-32.0 [facility] 1.58 uIU/mL 0.358-3.74 [facility] 35.2 ng/mL [facility] Platelets bldOrdered By: Estefany Vicente on 11-11-2022 Platelets (Bld) [#/Vol] 384 10*3/uL 150-450 [facility] Serum or plasma albumin miguel angel urement (mass/volume)Ordered By: Lavon Vicente on 11-11-2022 Albumin [Mass/Vol] 3.1 g/dL 3.2-5.0 [facility] Serum or plasma albumin/glob ulin mass ratioOrdered By: Lavon Vicente on 11-11-2022 Albumin/Globulin [Mass ratio] 0.7 {ratio} 0.9-2.4 [facility] Serum or plasma calcium miguela ngel urement (mass/volume)Ordered By: Lavon Vicente on 11-11-2022 Calcium [Mass/Vol] 9.2 mg/dL 8.5-10.1 [facility] Serum or plasma creatinine m easurement (mass/volume)Ordered By: Lavon Vicente on 11-11-2022 Creatinine [Mass/Vol] 0.54 mg/dL 0.55-1.02 [facility] Serum or plasma urea nitroge n measurement (mass/volume)Ordered By: Lavon Vicente on 11-11-2022 Urea nitrogen [Mass/Vol] 22 mg/dL 7-18 [facility] Thin prep Papanicolaou smear with manual screeningOrdered By: Lavon Vicente on 11-11-2022 Thin prep Papanicolaou smear with manual screening 62 U/L 15-37 [facility] Thin prep Papanicolaou smear with manual screening 13 5-15 [facility] Basophil percentageOrdered B y: Lavon Vicente on 11-10-2022 Basophil percentage 87 mg/dL 74-106 [facility] Basophil percentage 137 mmol/L 136-145 [facility] Basophil percentage 3.7 mmol/L 3.5-5.1 [facility] Basophil percentage 106 mmol/L 98-107 [facility] No Panel InformationOrdered By: Lavon Vicente on 11-10-2022 191 mL/min >60 [facility] 232 mL/min >60 [facility] 39.5 RATIO 10-20 [facility] 16.0 mmol/L 21.0-32.0 [facility] Serum or plasma calcium miguel angel urement (mass/volume)Ordered By: Lavon Vicente on 11-10-2022 Calcium [Mass/Vol] 8.2 mg/dL 8.5-10.1 [facility] Serum or plasma creatinine m easurement (mass/volume)Ordered By: Lavon Vicente on 11-10-2022 Creatinine [Mass/Vol] 0.38 mg/dL 0.55-1.02 [facility] Serum or plasma urea nitroge n measurement (mass/volume)Ordered By: Lavon Vicente on 11-10-2022 Urea nitrogen [Mass/Vol] 15 mg/dL 7-18 [facility] Thin prep Papanicolaou smear with manual screeningOrdered By: Lavon Vicente on 11-10-2022 Thin prep Papanicolaou smear with manual screening 15 -15 [facility] Absolute lymphocyte countOrd ered By: Dr. River on 11-09-2022 Lymphocytes Auto (Unsp spec) [#/Vol] 2.85 10*3/uL 0.83-4.51 [facility] Bacteria identified Cx Nom ( U)Ordered By: Romero River on 05-29-2023 Culture, urine Vancomycin Resist. E . faecium [facility] Basophil percentageOrdered B y: Dr. River on 11-09-2022 Basophil percentage 50-100 SEEN /hpf 0-5 [facility] Basophil percentage 1.6 mmol/L 0.4-2.0 [facility] Basophils (Bld) [#/Vol] 12.3 10*3/uL 4.4-11.0 [facility] Basophils (Bld) [#/Vol] 8.1 10*3/uL 2.0-7.7 [facility] Basophils/100 WBC (Bld) 0.4 % 0-1 [facility] Basophils/100 WBC (Bld) 65.6 % 47-70 [facility] Basophils/100 WBC (Bld) 3.3 % 0-5 [facility] Eosinophils/100 WBC (Bld) 3.3 % 0-5 [facility] Lactate [Moles/Vol] 1.6 mmol/L 0.4-2.0 [facility] Neutrophils (Bld) [#/Vol] 8.1 10*3/uL 2.0-7.7 [facility] Neutrophils/100 WBC (Bld) 65.6 % 47-70 [facility] WBC (Bld) [#/Vol] 12.3 10*3/uL 4.4-11.0 [facility] Basophil percentage 100 mg/dL 74-106 [facility] Basophil percentage 139 mmol/L 136-145 [facility] Basophil percentage 3.6 mmol/L 3.5-5.1 [facility] Basophil percentage 106 mmol/L 98-107 [facility] Chloride [Moles/Vol] 106 mmol/L 98-107 [facility] Glucose [Mass/Vol] 100 mg/dL 74-106 [facility] Comment on above: Fasting Glucose resu lt from 100 to 125 mg/dL suggests IMPAIRED HOMEOSTASIS per A.D.A. criteria. Potassium [Moles/Vol] 3.6 mmol/L 3.5-5.1 [facility] Comment on above: Moderate Hemolysis, Result may be falsely increased. Sodium [Moles/Vol] 139 mmol/L 136-145 [facility] Bilirubin Test strip Ql (U)O rdered By: Dr. River on 11-09-2022 Bilirubin Ql (U) 1 mg/dL Negative [facility] Comment on above: COLOR OF URINE MAY A FFECT DIPSTICK RESULTS. Blood erythrocytes count (nu mber/volume)Ordered By: Dr. River on 11-09-2022 RBC (Bld) [#/Vol] 4.68 10*6/uL 4.2-5.4 [facility] Blood hemoglobin measurement (mass/volume)Ordered By: Dr. River on 11-09-2022 Hemoglobin (Bld) [Mass/Vol] 12.4 g/dL 12.0-15.0 [facility] Blood lymphocytes/100 leukoc ytesOrdered By: Dr. River on 11-09-2022 Lymphocytes/100 WBC (Bld) 23.2 % 19-41 [facility] Blood monocytes/100 leukocyt esOrdered By: Dr. River on 11-09-2022 Monocytes/100 WBC (Bld) 7.2 % 0-10 [facility] Blood platelet mean volumeOr dered By: Dr. River on 11-09-2022 Platelet mean volume (Bld) [Entitic vol] 9.1 fL 6.2-12.0 [facility] Determination of erythrocyte mean corpuscular volume (MCV)Ordered By: Dr. River on 11-09-2022 MCV (RBC) [Entitic vol] 83.1 fL 81-99 [facility] Hematocrit Auto (Bld) [Volum e fraction]Ordered By: Dr. River on 11-09-2022 Hematocrit (Bld) [Volume fraction] 38.9 % 37-47 [facility] INR in Blood by Coagulation assayOrdered By: Dr. River on 11-09-2022 INR Coag (Bld) [Relative time] 1.1 {INR} [facility] Ketones Test strip Ql (U)Ord ered By: Dr. River on 11-09-2022 Ketones Ql (U) 150 mg/dl Negative [facility] Comment on above: CRITICAL VALUE *HCRI TICAL VALUE VERIFIED. CALLED TO 11/09/22 1703 Roman Bradford.RESULTS READ BACK BY SAME CHARO CHAVEZ. Laboratory - Chemistry and C hemistry - challengeOrdered By: Dr. River on 11-09-2022 CO2 [Moles/Vol] 20.0 mmol/L 21.0-32.0 [facility] Urea nitrogen/Creatinine [Mass ratio] 59.0 mg/mg 10-20 [facility] Laboratory - CoagulationOrde red By: Dr. River on 11-09-2022 aPTT Coag (Bld) [Time] 30.2 s 24.1-36.2 [facility] PT Coag (PPP) [Time] 14.0 s 11.7-14.9 [facility] Laboratory - Hematology and Cell countsOrdered By: Dr. River on 11-09-2022 Erythrocyte distribution width (RBC) [Entitic vol] 46.9 fL 35.1-43.9 [facility] Erythrocyte distribution width (RBC) [Ratio] 15.9 % 11.6-14.6 [facility] Immature granulocytes/100 WBC (Bld) 0.300 % 0.0-0.9 [facility] Comment on above: IG% - Immature Granu locytes (promyelocytes, myelocytes and metamyelocytes) > 1% indicates that a LEFT SHIFT is Present. MCH (RBC) [Entitic mass] 26.5 pg 27.0-32.0 [facility] Nucleated RBC/100 WBC (Bld) [Ratio] 0 % 0-5 [facility] MCHC Auto (RBC) [Mass/Vol]Or dered By: Dr. River on 11-09-2022 MCHC (RBC) [Mass/Vol] 31.9 g/dL 32-36 [facility] Mucus LM Ql (Urine sed)Order ed By: Dr. River on 11-09-2022 Mucus Ql (Urine sed) 0 SEEN /hpf [facility] Nitrite Test strip Ql (U)Ord ered By: Dr. River on 11-09-2022 Nitrite Ql (U) Positive Negative [facility] No Panel InformationOrdered By: Dr. River on 11-09-2022 26.5 pg 27.0-32.0 [facility] 15.9 % 11.6-14.6 [facility] 46.9 fl 35.1-43.9 [facility] 0.300 % 0.0-0.9 [facility] 0 % 0-5 [facility] 14.0 SECONDS 11.7-14.9 [facility] 30.2 Seconds 24.1-36.2 [facility] Estimated Creatinine Clearance Calc 173.05 ml/min [facility] Estimated GFR (MDRD) Amer 299 mL/min >60 [facility] Comment on above: GFR Calc Estimated GFR (MDRD) Non-Af Amer 247 mL/min >60 [facility] Comment on above: Non- GFR Calc 247 mL/min >60 [facility] 299 mL/min >60 [facility] 173.05 ml/min [facility] 59.0 RATIO 10-20 [facility] 20.0 mmol/L 21.0-32.0 [facility] No Panel InformationOrdered By: Romero River on 11-09-2022 No growth in 5 days. [facility] Platelets bldOrdered By: Dr. River on 11-09-2022 Platelets (Bld) [#/Vol] 391 10*3/uL 150-450 [facility] Protein Test strip Ql (U)Ord ered By: Dr. River on 11-09-2022 Protein Ql (U) 100 mg/dl Negative [facility] Serum or plasma calcium miguel angel urement (mass/volume)Ordered By: Dr. River on 11-09-2022 Calcium [Mass/Vol] 8.6 mg/dL 8.5-10.1 [facility] Serum or plasma creatinine m easurement (mass/volume)Ordered By: Dr. River on 11-09-2022 Creatinine [Mass/Vol] 0.30 mg/dL 0.55-1.02 [facility] Comment on above: The validity of the calculated GFR & GFRAA in patients over 70 years has not been determined. Clinical correlation is essential. Serum or plasma urea nitroge n measurement (mass/volume)Ordered By: Dr. River on 11-09-2022 Urea nitrogen [Mass/Vol] 18 mg/dL 7-18 [facility] Squamous epithelial cells de tection in urine sediment by light microscopyOrdered By: Dr. River on 11-09-2022 Epithelial cells.squamous LM Ql (Urine sed) 0-5 SEEN /hpf 5-10 [facility] Thin prep Papanicolaou smear with manual screeningOrdered By: Dr. River on 11-09-2022 Thin prep Papanicolaou smear with manual screening 13 5-15 [facility] Urine blood detectionOrdered By: Dr. River on 11-09-2022 RBC Ql (U) 250 /ul Negative [facility] RBC Ql (U) > 100 SEEN /hpf 0-5 [facility] Urine clarityOrdered By: Dr. River on 11-09-2022 Clarity (U) Cloudy Clear [facility] Urine color determinationOrd ered By: Dr. River on 11-09-2022 Color (U) Latonya Yellow [facility] Urine glucose detectionOrder ed By: Dr. River on 11-09-2022 Glucose Ql (U) Normal mg/dl Normal [facility] Urine leukocyte esterase det ection by dipstickOrdered By: Dr. River on 11-09-2022 Leukocyte esterase Test strip Ql (U) 500 /ul Negative [facility] Urine pHOrdered By: Dr. Janae payton on 11-09-2022 pH (U) 6.0 [pH] 5.0 - 8.0 [facility] Urine sediment bacteria coun t by microscopy (number/high power field)Ordered By: Dr. River on 11-09-2022 Bacteria LM.HPF (Urine sed) [#/Area] RARE /hpf None Seen [facility] Urine specific gravity measu rementOrdered By: Dr. River on 11-09-2022 Specific gravity (U) [Rel density] 1.025 1.002-1.030 [facility] Urobilinogen Auto test strip Ql (U)Ordered By: Dr. River on 11-09-2022 Urobilinogen Ql (U) 1 mg/dl Normal [facility] Absolute lymphocyte countOrd ered By: Dr. Acharya on 11-06-2022 Lymphocytes Auto (Unsp spec) [#/Vol] 3.39 10*3/uL 0.83-4.51 [facility] Basophil percentageOrdered B y: Dr. Acharya on 11-06-2022 Basophil percentage >100 SEEN /hpf 0-5 [facility] Basophil percentage 157 mg/dL 74-106 [facility] Basophil percentage 7.7 g/dL 6.4-8.2 [facility] Basophil percentage 0.30 mg/dL 0.20-1.00 [facility] Basophil percentage 143 mmol/L 136-145 [facility] Basophil percentage 4.5 mmol/L 3.5-5.1 [facility] Basophil percentage 103 mmol/L 98-107 [facility] Basophil percentage 1.2 mmol/L 0.4-2.0 [facility] Basophils (Bld) [#/Vol] 11.9 10*3/uL 4.4-11.0 [facility] Basophils (Bld) [#/Vol] 7.6 10*3/uL 2.0-7.7 [facility] Basophils/100 WBC (Bld) 0.4 % 0-1 [facility] Basophils/100 WBC (Bld) 64.3 % 47-70 [facility] Basophils/100 WBC (Bld) 1.3 % 0-5 [facility] Bilirubin [Mass/Vol] 0.30 mg/dL 0.20-1.00 [facility] Comment on above: For patients on eltr ombopag therapy, use of Dimension [place] TBIL is not recommended. Chloride [Moles/Vol] 103 mmol/L 98-107 [facility] Eosinophils/100 WBC (Bld) 1.3 % 0-5 [facility] Glucose [Mass/Vol] 157 mg/dL 74-106 [facility] Comment on above: Fasting Glucose resu lt greater than or equal to 126 mg/dL suggests DIABETES MELLITUS per A.D.A. criteria. Lactate [Moles/Vol] 1.2 mmol/L 0.4-2.0 [facility] Neutrophils (Bld) [#/Vol] 7.6 10*3/uL 2.0-7.7 [facility] Neutrophils/100 WBC (Bld) 64.3 % 47-70 [facility] Potassium [Moles/Vol] 4.5 mmol/L 3.5-5.1 [facility] Protein [Mass/Vol] 7.7 g/dL 6.4-8.2 [facility] Sodium [Moles/Vol] 143 mmol/L 136-145 [facility] WBC (Bld) [#/Vol] 11.9 10*3/uL 4.4-11.0 [facility] Bilirubin Test strip Ql (U)O rdered By: Dr. Acharya on 11-06-2022 Bilirubin Ql (U) Negative Negative [facility] Blood erythrocytes count (nu mber/volume)Ordered By: Dr. Acharya on 11-06-2022 RBC (Bld) [#/Vol] 4.64 10*6/uL 4.2-5.4 [facility] Blood hemoglobin measurement (mass/volume)Ordered By: Dr. Acharya on 11-06-2022 Hemoglobin (Bld) [Mass/Vol] 11.8 g/dL 12.0-15.0 [facility] Blood lymphocytes/100 leukoc ytesOrdered By: Dr. Acharya on 11-06-2022 Lymphocytes/100 WBC (Bld) 28.6 % 19-41 [facility] Blood monocytes/100 leukocyt esOrdered By: Dr. Acharya on 11-06-2022 Monocytes/100 WBC (Bld) 4.8 % 0-10 [facility] Blood platelet mean volumeOr dered By: Dr. Acharya on 11-06-2022 Platelet mean volume (Bld) [Entitic vol] 9.0 fL 6.2-12.0 [facility] Determination of erythrocyte mean corpuscular volume (MCV)Ordered By: Dr. Acharya on 11-06-2022 MCV (RBC) [Entitic vol] 83.0 fL 81-99 [facility] HCO3 (BldA) [Moles/Vol]Order ed By: Dr. Acharya on 11-06-2022 HCO3 (Bld) [Moles/Vol] 34 mmol/L 22- [facility] Hematocrit Auto (Bld) [Volum e fraction]Ordered By: Dr. Acharya on 11-06-2022 Hematocrit (Bld) [Volume fraction] 38.5 % 37-47 [facility] Ketones Test strip Ql (U)Ord ered By: Dr. Acharya on 11-06-2022 Ketones Ql (U) Negative Negative [facility] Laboratory - Chemistry and C hemistry - challengeOrdered By: Dr. Acharya on 11-06-2022 CO2 [Moles/Vol] 36 mmol/L 23-33 [facility] ALP [Catalytic activity/Vol] 117 U/L 45-117 [facility] ALT [Catalytic activity/Vol] 58 U/L 13-56 [facility] CO2 [Moles/Vol] 36.0 mmol/L 21.0-32.0 [facility] Globulin (S) [Mass/Vol] 4.6 g/dL 2.2-4.2 [facility] Lipase [Catalytic activity/Vol] 42 U/L 13-75 [facility] Comment on above: Please note:LIPASE r evised reference range effective 22. New Lipase methodology. Expected to produce lower values than the previous assay method. NEW Reference Range: 13 - 75 U/L Urea nitrogen/Creatinine [Mass ratio] 26.8 mg/mg 10-20 [facility] Laboratory - Drug toxicology Ordered By: Dr. Acharya on 11-06-2022 Amphetamines Ql (U) Negative <1000 ng/mL [facility] Benzodiazepines Ql (U) Negative < 200 ng/mL [facility] Cannabinoids Screen Ql (U) Negative < 50 ng/mL [facility] Cocaine Ql (U) Negative < 300 ng/mL [facility] Opiates Ql (U) Negative < 300 ng/mL [facility] Laboratory - Hematology and Cell countsOrdered By: Dr. Acharya on 11-06-2022 Erythrocyte distribution width (RBC) [Entitic vol] 47.9 fL 35.1-43.9 [facility] Erythrocyte distribution width (RBC) [Ratio] 15.9 % 11.6-14.6 [facility] Immature granulocytes/100 WBC (Bld) 0.600 % 0.0-0.9 [facility] Comment on above: IG% - Immature Granu locytes (promyelocytes, myelocytes and metamyelocytes) > 1% indicates that a LEFT SHIFT is Present. MCH (RBC) [Entitic mass] 25.4 pg 27.0-32.0 [facility] Nucleated RBC/100 WBC (Bld) [Ratio] 0 % 0-5 [facility] MCHC Auto (RBC) [Mass/Vol]Or dered By: Dr. Acharya on 11-06-2022 MCHC (RBC) [Mass/Vol] 30.6 g/dL 32-36 [facility] Mucus LM Ql (Urine sed)Order ed By: Dr. Acharya on 11-06-2022 Mucus Ql (Urine sed) 0 SEEN /hpf [facility] Nitrite Test strip Ql (U)Ord ered By: Dr. Acharya on 11-06-2022 Nitrite Ql (U) Positive Negative [facility] No Panel InformationOrdered By: Dr. Acharya on 11-06-2022 MDMA (Ecstasy) Screen Negative < 500 ng/mL [facility] Urine Barbiturates Screen Negative < 200 ng/mL [facility] Urine Drug Screen Comment [facility] Comment on above: CONFIRMATORY TESTING FOR ALL [...] Urine Methadone Screen Negative < 300 ng/mL [facility] Negative < 50 ng/mL [facility] Bed Mix Venous Bld PCO2 at Pat Temp 54.1 mmHg 41-51 [facility] Blood Gas Liter Flow 2.0 /min [facility] Blood Gas Specimen Type BHUPINDER [facility] Oxygen Delivery Device Cannula [facility] Venous Blood Base Excess 9 mmol/L -1.0-3.5 [facility] BHUPINDER [facility] Cannula [facility] 2.0 /min [facility] 54.1 mmHg 41-51 [facility] 9 mmol/L -1.0-3.5 [facility] 82 % 50-70 [facility] 36 mmol/L 23-33 [facility] Estimated Creatinine Clearance Calc 115.37 ml/min [facility] Estimated GFR (MDRD) Amer 192 mL/min >60 [facility] Comment on above: GFR Calc Estimated GFR (MDRD) Non-Af Amer 159 mL/min >60 [facility] Comment on above: Non- GFR Calc Ethyl Alcohol Level 6.0 mg/dL [facility] Comment on above: The serum:whole bloo d ethanol ratio is approximately 1.14and varies slightly with hematocrit. Medical Alcohol reference interval and critical value innon-tolerant individuals; 50 - 100 Impairment 100 Intoxication 100 - 250 Severe Poisoning 250 - 400 Deep/possible fatal coma 25.4 pg 27.0-32.0 [facility] 15.9 % 11.6-14.6 [facility] 47.9 fl 35.1-43.9 [facility] 0.600 % 0.0-0.9 [facility] 0 % 0-5 [facility] 159 mL/min >60 [facility] 192 mL/min >60 [facility] 115.37 ml/min [facility] 26.8 RATIO 10-20 [facility] 4.6 g/dL 2.2-4.2 [facility] 42 U/L 13-75 [facility] 117 U/L 45-117 [facility] 58 U/L 13-56 [facility] 36.0 mmol/L 21.0-32.0 [facility] 6.0 mg/dL [facility] PO2 venousOrdered By: Dr. Cristi otto on 11-06-2022 Oxygen (BldV) [Partial pressure] 48 mm[Hg] 25-40 [facility] Platelets bldOrdered By: Dr. Acharya on 11-06-2022 Platelets (Bld) [#/Vol] 360 10*3/uL 150-450 [facility] Protein Test strip Ql (U)Ord ered By: Dr. Acharya on 11-06-2022 Protein Ql (U) 100 mg/dl Negative [facility] Serum or plasma albumin miguel angel urement (mass/volume)Ordered By: Dr. Acharya on 11-06-2022 Albumin [Mass/Vol] 3.1 g/dL 3.2-5.0 [facility] Serum or plasma albumin/glob ulin mass ratioOrdered By: Dr. Acharya on 11-06-2022 Albumin/Globulin [Mass ratio] 0.7 {ratio} 0.9-2.4 [facility] Serum or plasma calcium miguel angel urement (mass/volume)Ordered By: Dr. Acharya on 11-06-2022 Calcium [Mass/Vol] 8.7 mg/dL 8.5-10.1 [facility] Serum or plasma creatinine m easurement (mass/volume)Ordered By: Dr. Acharya on 11-06-2022 Creatinine [Mass/Vol] 0.45 mg/dL 0.55-1.02 [facility] Comment on above: The validity of the calculated GFR & GFRAA in patients over 70 years has not been determined. Clinical correlation is essential. Serum or plasma urea nitroge n measurement (mass/volume)Ordered By: Dr. Acharya on 11-06-2022 Urea nitrogen [Mass/Vol] 12 mg/dL 7-18 [facility] Squamous epithelial cells de tection in urine sediment by light microscopyOrdered By: Dr. Acharya on 11-06-2022 Epithelial cells.squamous LM Ql (Urine sed) 0-5 SEEN /hpf 5-10 [facility] Thin prep Papanicolaou smear with manual screeningOrdered By: Dr. Acharya on 11-06-2022 Thin prep Papanicolaou smear with manual screening 33 U/L 15-37 [facility] Thin prep Papanicolaou smear with manual screening 4 5-15 [facility] Urine blood detectionOrdered By: Dr. cAharya on 11-06-2022 RBC Ql (U) 150 /ul Negative [facility] RBC Ql (U) 0 SEEN /hpf 0-5 [facility] Urine clarityOrdered By: Dr. Acharya on 11-06-2022 Clarity (U) Cloudy Clear [facility] Urine color determinationOrd ered By: Dr. Acharya on 11-06-2022 Color (U) Yellow Yellow [facility] Urine glucose detectionOrder ed By: Dr. Acharya on 11-06-2022 Glucose Ql (U) Normal mg/dl Normal [facility] Urine leukocyte esterase det ection by dipstickOrdered By: Dr. Acharya on 11-06-2022 Leukocyte esterase Test strip Ql (U) 500 /ul Negative [facility] Urine pHOrdered By: Dr. Acharya on 11-06-2022 pH (U) 6.5 [pH] 5.0 - 8.0 [facility] Urine phencyclidine (PCP) de tectionOrdered By: Dr. Acharya on 11-06-2022 Phencyclidine Ql (U) Negative < 25 ng/mL [facility] Urine sediment bacteria coun t by microscopy (number/high power field)Ordered By: Dr. Acharya on 11-06-2022 Bacteria LM.HPF (Urine sed) [#/Area] 3 /[HPF] None Seen [facility] Urine specific gravity measu rementOrdered By: Dr. Acharya on 11-06-2022 Specific gravity (U) [Rel density] 1.020 1.002-1.030 [facility] Urobilinogen Auto test strip Ql (U)Ordered By: Dr. Acharya on 11-06-2022 Urobilinogen Ql (U) Normal mg/dl Normal [facility] Vital signsOrdered By: Dr. Edmundo rcuz on 11-06-2022 Oxygen saturation in Blood 82 % 50-70 [facility] pH measurementOrdered By: Dr Kimberly Acharya on 11-06-2022 pH (Unsp spec) 7.41 [pH] 7.32-7.42 [facility] CNPNon 10-21-2022 CNPN Telephone (UROLWS) HENRIK REED ([id number]) 1975 F Date Time Provider Department 10/21/22 ROSA MARIA MARTINEZ During your visit today, we recorded the following information about you: Justine Morrow Pss 10/21/2022 12:53 PM Signed [facility] calling [facility] let provider know that [...] Encounter Status:Closed by JUSTINE SIMMONS on 11/20/22 [facility] CNOVon 10-06-2022 CNOV Office Visit (UROLWS ) HENRIK REED ([id number]) 1975 F Date Time Provider Department 10/06/22 11:20 AM ROSA MARIA MARTINEZ During your visit today, we recorded the following information about you: Temperature Pulse Respiration Blood pressure 97 degrees 86/minute 16/minute 110/70 Weight Height 104.3 kg 1.6 m Rosa Maria Martinez PA-C 10/06/2022 7:08 PM Signed [facility] [facility] [employer] NEW PATIENT CLINIC NOTE SERVICE [...] 10/06/2022) PAS (more content not included)... Normal [facility] 09-30-2022 DARRIAN Telephone (AIDAN) HENRIK REED ([id number]) 1975 F Date Time Provider Department 09/30/22 ROSA MARIA MARTINEZ During your visit today, we recorded the following information about you: Karis José Miguel [employer] 09/30/2022 4:46 PM Signed Wrong number. Karis José Miguel [employer] 09/30/2022 4:47 PM Signed Busy signal. Karis José Miguel [employer] Karis José Miguel [employer] MECH[employer] 10/02/2022 3:36 PM Signed Busy signal. Karis José Miguel [employer] ME[employer] Karis José Miguel [employer] MECH[employer] 10/05/2022 8:33 AM Signed Called patient's mothers number- no answer. Left message. Karis José Miguel [employer] MECH[employer] Karis José Miguel [employer] MECH[employer] 10/06/2022 2:39 PM Signed Patient seen today for office visit with Rosa Maria Martinez PA-C and updated phone number in [facility]. Patient does reside at [facility]. Karis Valdez RICK Allergies As of Date: 09/30/2022 Noted Allergy Reaction ELIQUIS (APIXABAN) 05/15/2015 16 - Unknown MOMETASONE 04/05/2019 16 - Unknown MORPHINE 05/15/2015 16 - Unknown NITROFURANTOIN 04/05/2019 16 - Unknown SULFA (SULFONAMIDE ANTIBIOTICS) 04/05/2019 16 - Unknown Date Reviewed: 04/12/2019 Reviewed by: Karis Calderon Ct - Fully Assessed Reason for Visit: Appointment [...] by KARIS VALDEZ LPN on 10/02/22 Normal [facility] Basophil percentageOrdered B y: Lavon Vicente on 09-18-2022 Basophils (Bld) [#/Vol] 8.1 10*3/uL 4.4-11.0 [facility] WBC (Bld) [#/Vol] 8.1 10*3/uL 4.4-11.0 [facility] Blood erythrocytes count (nu mber/volume)Ordered By: Lavon Vicente on 09-18-2022 RBC (Bld) [#/Vol] 4.34 10*6/uL 4.2-5.4 [facility] Blood hemoglobin measurement (mass/volume)Ordered By: Lavon Vicente on 09-18-2022 Hemoglobin (Bld) [Mass/Vol] 11.3 g/dL 12.0-15.0 [facility] Blood platelet mean volumeOr dered By: Lavon Vicente on 09-18-2022 Platelet mean volume (Bld) [Entitic vol] 9.7 fL 6.2-12.0 [facility] Determination of erythrocyte mean corpuscular volume (MCV)Ordered By: Lavon Vicente on 09-18-2022 MCV (RBC) [Entitic vol] 81.6 fL 81-99 [facility] Comment on above: Delta: 89.1 on 09/16 Hematocrit Auto (Bld) [Volum e fraction]Ordered By: Lavon Vicente on 09-18-2022 Hematocrit (Bld) [Volume fraction] 35.4 % 37-47 [facility] Laboratory - Hematology and Cell countsOrdered By: Lavon Vicente on 09-18-2022 Erythrocyte distribution width (RBC) [Entitic vol] 45.0 fL 35.1-43.9 [facility] Erythrocyte distribution width (RBC) [Ratio] 15.1 % 11.6-14.6 [facility] MCH (RBC) [Entitic mass] 26.0 pg 27.0-32.0 [facility] - Microbiology an d Antimicrobial susceptibilityOrdered By: Dr. Pastor on 09-18-2022 Bacteria identified Cx Nom (Bld) No growth in 5 days. [facility] MCHC Auto (RBC) [Mass/Vol]Or dered By: Lavon Vicente on 09-18-2022 MCHC (RBC) [Mass/Vol] 31.9 g/dL 32-36 [facility] Comment on above: Delta: 29.2 on 09/16 No Panel InformationOrdered By: Lavon Vicente on 09-18-2022 26.0 pg 27.0-32.0 [facility] 15.1 % 11.6-14.6 [facility] 45.0 fl 35.1-43.9 [facility] No Panel InformationOrdered By: Dr. Pastor on 09-18-2022 No growth in 5 days. [facility] Platelets bldOrdered By: Estefany Vicente on 09-18-2022 Platelets (Bld) [#/Vol] 255 10*3/uL 150-450 [facility] Bacteria identified Cx Nom ( U)Ordered By: Dr. Pastor on 09-16-2022 Culture, urine Enterococcus faecalis [facility] Culture, urine Morganella morganii sp morgani [facility] Basophil percentageOrdered B y: Lavon Vicente on 09-16-2022 Basophil percentage 131 mg/dL 74-106 [facility] Basophil percentage 137 mmol/L 136-145 [facility] Basophil percentage 3.5 mmol/L 3.5-5.1 [facility] Basophil percentage 99 mmol/L 98-107 [facility] Basophils (Bld) [#/Vol] 7.9 10*3/uL 4.4-11.0 [facility] Chloride [Moles/Vol] 99 mmol/L 98-107 [facility] Glucose [Mass/Vol] 131 mg/dL 74-106 [facility] Comment on above: Fasting Glucose resu lt greater than or equal to 126 mg/dL suggests DIABETES MELLITUS per A.D.A. criteria. Potassium [Moles/Vol] 3.5 mmol/L 3.5-5.1 [facility] Sodium [Moles/Vol] 137 mmol/L 136-145 [facility] WBC (Bld) [#/Vol] 7.9 10*3/uL 4.4-11.0 [facility] Blood erythrocytes count (nu mber/volume)Ordered By: Lavon Vicente on 09-16-2022 RBC (Bld) [#/Vol] 3.77 10*6/uL 4.2-5.4 [facility] Blood hemoglobin measurement (mass/volume)Ordered By: Lavon Vicente on 09-16-2022 Hemoglobin (Bld) [Mass/Vol] 9.8 g/dL 12.0-15.0 [facility] Blood platelet mean volumeOr dered By: Lavon Vicente on 09-16-2022 Platelet mean volume (Bld) [Entitic vol] 9.1 fL 6.2-12.0 [facility] Culture, urineOrdered By: Dr Kimberly Pastor on 09-16-2022 Bacteria identified Cx Nom (U) Enterococcus faecalis [facility] Bacteria identified Cx Nom (U) Morganella morganii sp morgani [facility] Determination of erythrocyte mean corpuscular volume (MCV)Ordered By: Lavon Vicente on 09-16-2022 MCV (RBC) [Entitic vol] 89.1 fL 81-99 [facility] Hematocrit Auto (Bld) [Volum e fraction]Ordered By: Lavon Vicente on 09-16-2022 Hematocrit (Bld) [Volume fraction] 33.6 % 37-47 [facility] - Chemistry and C hemistry - challengeOrdered By: Lavon Vicente on 09-16-2022 CO2 [Moles/Vol] 32.0 mmol/L 21.0-32.0 [facility] Urea nitrogen/Creatinine [Mass ratio] 21.1 mg/mg 10-20 [facility] - Hematology and Cell countsOrdered By: Lavon Vicente on 09-16-2022 Erythrocyte distribution width (RBC) [Entitic vol] 52.0 fL 35.1-43.9 [facility] Erythrocyte distribution width (RBC) [Ratio] 15.8 % 11.6-14.6 [facility] MCH (RBC) [Entitic mass] 26.0 pg 27.0-32.0 [facility] MCHC Auto (RBC) [Mass/Vol]Or dered By: Lavon Vicente on 09-16-2022 MCHC (RBC) [Mass/Vol] 29.2 g/dL 32-36 [facility] No Panel InformationOrdered By: Lavon Vicente on 09-16-2022 Estimated GFR (MDRD) Amer 324 mL/min >60 [facility] Comment on above: GFR Calc Estimated GFR (MDRD) Non-Af Amer 268 mL/min >60 [facility] Comment on above: Non- GFR Calc 26.0 pg 27.0-32.0 [facility] 15.8 % 11.6-14.6 [facility] 52.0 fl 35.1-43.9 [facility] 268 mL/min >60 [facility] 324 mL/min >60 [facility] 21.1 RATIO 10-20 [facility] 32.0 mmol/L 21.0-32.0 [facility] Platelets bldOrdered By: Estefany Vicente on 09-16-2022 Platelets (Bld) [#/Vol] 304 10*3/uL 150-450 [facility] Serum or plasma calcium miguel angel urement (mass/volume)Ordered By: Lavon Vicente on 09-16-2022 Calcium [Mass/Vol] 8.7 mg/dL 8.5-10.1 [facility] Serum or plasma creatinine m easurement (mass/volume)Ordered By: Lavon Vicente on 09-16-2022 Creatinine [Mass/Vol] 0.28 mg/dL 0.55-1.02 [facility] Comment on above: The validity of the calculated GFR & GFRAA in patients over 70 years has not been determined. Clinical correlation is essential. Serum or plasma urea nitroge n measurement (mass/volume)Ordered By: Lavon Vicente on 09-16-2022 Urea nitrogen [Mass/Vol] 6 mg/dL 7-18 [facility] Thin prep Papanicolaou smear with manual screeningOrdered By: Lavon Vicente on 09-16-2022 Thin prep Papanicolaou smear with manual screening 6 5-15 [facility] Absolute lymphocyte countOrd ered By: Dr. Pastor on 09-14-2022 Lymphocytes Auto (Unsp spec) [#/Vol] 2.16 10*3/uL 0.83-4.51 [facility] Basophil percentageOrdered B y: Dr. Pastor on 09-14-2022 Basophil percentage 117 mg/dL 74-106 [facility] Basophil percentage 6.7 g/dL 6.4-8.2 [facility] Basophil percentage 0.20 mg/dL 0.20-1.00 [facility] Basophil percentage 139 mmol/L 136-145 [facility] Basophil percentage 3.8 mmol/L 3.5-5.1 [facility] Basophil percentage 106 mmol/L 98-107 [facility] Basophils (Bld) [#/Vol] 9.0 10*3/uL 4.4-11.0 [facility] Basophils (Bld) [#/Vol] 5.6 10*3/uL 2.0-7.7 [facility] Basophils/100 WBC (Bld) 0.6 % 0-1 [facility] Basophils/100 WBC (Bld) 62.5 % 47-70 [facility] Basophils/100 WBC (Bld) 4.2 % 0-5 [facility] Bilirubin [Mass/Vol] 0.20 mg/dL 0.20-1.00 [facility] Comment on above: For patients on eltr ombopag therapy, use of Dimension [place] TBIL is not recommended. Chloride [Moles/Vol] 106 mmol/L 98-107 [facility] Eosinophils/100 WBC (Bld) 4.2 % 0-5 [facility] Glucose [Mass/Vol] 117 mg/dL 74-106 [facility] Comment on above: Fasting Glucose resu lt from 100 to 125 mg/dL suggests IMPAIRED HOMEOSTASIS per A.D.A. criteria. Neutrophils (Bld) [#/Vol] 5.6 10*3/uL 2.0-7.7 [facility] Neutrophils/100 WBC (Bld) 62.5 % 47-70 [facility] Potassium [Moles/Vol] 3.8 mmol/L 3.5-5.1 [facility] Protein [Mass/Vol] 6.7 g/dL 6.4-8.2 [facility] Sodium [Moles/Vol] 139 mmol/L 136-145 [facility] WBC (Bld) [#/Vol] 9.0 10*3/uL 4.4-11.0 [facility] Blood erythrocytes count (nu mber/volume)Ordered By: Dr. Pastor on 09-14-2022 RBC (Bld) [#/Vol] 3.86 10*6/uL 4.2-5.4 [facility] Blood hemoglobin measurement (mass/volume)Ordered By: Dr. Pastor on 09-14-2022 Hemoglobin (Bld) [Mass/Vol] 10.1 g/dL 12.0-15.0 [facility] Blood lymphocytes/100 leukoc ytesOrdered By: Dr. Pastor on 09-14-2022 Lymphocytes/100 WBC (Bld) 24.0 % 19-41 [facility] Blood monocytes/100 leukocyt esOrdered By: Dr. Pastor on 09-14-2022 Monocytes/100 WBC (Bld) 8.3 % 0-10 [facility] Blood platelet mean volumeOr dered By: Dr. Pastor on 09-14-2022 Platelet mean volume (Bld) [Entitic vol] 9.2 fL 6.2-12.0 [facility] Determination of erythrocyte mean corpuscular volume (MCV)Ordered By: Dr. Pastor on 09-14-2022 MCV (RBC) [Entitic vol] 89.9 fL 81-99 [facility] Hematocrit Auto (Bld) [Volum e fraction]Ordered By: Dr. Pastor on 09-14-2022 Hematocrit (Bld) [Volume fraction] 34.7 % 37-47 [facility] Laboratory - Chemistry and C hemistry - challengeOrdered By: Dr. Pastor on 09-14-2022 ALP [Catalytic activity/Vol] 73 U/L 45-117 [facility] ALT [Catalytic activity/Vol] 36 U/L 13-56 [facility] CO2 [Moles/Vol] 31.0 mmol/L 21.0-32.0 [facility] Globulin (S) [Mass/Vol] 4.2 g/dL 2.2-4.2 [facility] Urea nitrogen/Creatinine [Mass ratio] 34.8 mg/mg 10-20 [facility] - Hematology and Cell countsOrdered By: Dr. Pastor on 09-14-2022 Erythrocyte distribution width (RBC) [Entitic vol] 53.1 fL 35.1-43.9 [facility] Erythrocyte distribution width (RBC) [Ratio] 16.1 % 11.6-14.6 [facility] Immature granulocytes/100 WBC (Bld) 0.400 % 0.0-0.9 [facility] Comment on above: IG% - Immature Granu locytes (promyelocytes, myelocytes and metamyelocytes) > 1% indicates that a LEFT SHIFT is Present. MCH (RBC) [Entitic mass] 26.2 pg 27.0-32.0 [facility] Nucleated RBC/100 WBC (Bld) [Ratio] 0 % 0-5 [facility] MCHC Auto (RBC) [Mass/Vol]Or dered By: Dr. Pastor on 09-14-2022 MCHC (RBC) [Mass/Vol] 29.1 g/dL 32-36 [facility] No Panel InformationOrdered By: Dr. Pastor on 09-14-2022 Estimated Creatinine Clearance Calc 225.72 ml/min [facility] Estimated GFR (MDRD) Amer 414 mL/min >60 [facility] Comment on above: GFR Calc Estimated GFR (MDRD) Non-Af Amer 342 mL/min >60 [facility] Comment on above: Non- GFR Calc 26.2 pg 27.0-32.0 [facility] 16.1 % 11.6-14.6 [facility] 53.1 fl 35.1-43.9 [facility] 0.400 % 0.0-0.9 [facility] 0 % 0-5 [facility] 342 mL/min >60 [facility] 414 mL/min >60 [facility] 225.72 ml/min [facility] 34.8 RATIO 10-20 [facility] 4.2 g/dL 2.2-4.2 [facility] 73 U/L 45-117 [facility] 36 U/L 13-56 [facility] 31.0 mmol/L 21.0-32.0 [facility] Platelets bldOrdered By: Dr. Pastor on 09-14-2022 Platelets (Bld) [#/Vol] 277 10*3/uL 150-450 [facility] Serum or plasma albumin miguel angel urement (mass/volume)Ordered By: Dr. Pastor on 09-14-2022 Albumin [Mass/Vol] 2.5 g/dL 3.2-5.0 [facility] Serum or plasma albumin/glob ulin mass ratioOrdered By: Dr. Pastor on 09-14-2022 Albumin/Globulin [Mass ratio] 0.6 {ratio} 0.9-2.4 [facility] Serum or plasma calcium miguel angel urement (mass/volume)Ordered By: Dr. Pastor on 09-14-2022 Calcium [Mass/Vol] 8.3 mg/dL 8.5-10.1 [facility] Serum or plasma creatinine m easurement (mass/volume)Ordered By: Dr. Pastor on 09-14-2022 Creatinine [Mass/Vol] 0.23 mg/dL 0.55-1.02 [facility] Comment on above: The validity of the calculated GFR & GFRAA in patients over 70 years has not been determined. Clinical correlation is essential. Serum or plasma urea nitroge n measurement (mass/volume)Ordered By: Dr. Pastor on 09-14-2022 Urea nitrogen [Mass/Vol] 8 mg/dL 7-18 [facility] Thin prep Papanicolaou smear with manual screeningOrdered By: Dr. Pastor on 09-14-2022 Thin prep Papanicolaou smear with manual screening 23 U/L 15-37 [facility] Thin prep Papanicolaou smear with manual screening 2 5-15 [facility] No Panel InformationOrdered By: Dr. Pastor on 09-13-2022 Methicillin-Resist S.aureus DNA PCR Positive Negative [facility] Comment on above: RESULTS CALLED TO JOSE CARLOS MORGAN 09/13/22 1150 Maame Nolen.REPORT READ BACK BY [facility].Copy of report sent to In[facility] MS#[id number] [id number] DESTINEEICK. Positive Negative [facility] Thyroid Stimulating Hormone (TSH) 1.88 uIU/mL 0.358-3.74 [facility] 1.88 uIU/mL 0.358-3.74 [facility] Absolute lymphocyte countOrd ered By: Dr. Aguila on 09-12-2022 Lymphocytes Auto (Unsp spec) [#/Vol] 1.43 10*3/uL 0.83-4.51 [facility] Basophil percentageOrdered B y: Dr. Pastor on 09-12-2022 Basophil percentage 0.9 mmol/L 0.4-2.0 [facility] Lactate [Moles/Vol] 0.9 mmol/L 0.4-2.0 [facility] Basophil percentageOrdered B y: Dr. Aguila on 09-12-2022 Basophil percentage 10-25 SEEN /hpf 0-5 [facility] Basophils/100 WBC (Bld) 0.3 % 0-1 [facility] Chloride [Moles/Vol] 100 mmol/L 98-107 [facility] Eosinophils/100 WBC (Bld) 1.7 % 0-5 [facility] Glucose [Mass/Vol] 141 mg/dL 74-106 [facility] Comment on above: Fasting Glucose resu lt greater than or equal to 126 mg/dL suggests DIABETES MELLITUS per A.D.A. criteria. Neutrophils (Bld) [#/Vol] 14.5 10*3/uL 2.0-7.7 [facility] Neutrophils/100 WBC (Bld) 84.0 % 47-70 [facility] Potassium [Moles/Vol] 3.5 mmol/L 3.5-5.1 [facility] Sodium [Moles/Vol] 136 mmol/L 136-145 [facility] WBC (Bld) [#/Vol] 17.3 10*3/uL 4.4-11.0 [facility] Bilirubin Test strip Ql (U)O rdered By: Dr. Aguila on 09-12-2022 Bilirubin Ql (U) Negative Negative [facility] Blood erythrocytes count (nu mber/volume)Ordered By: Dr. Aguila on 09-12-2022 RBC (Bld) [#/Vol] 4.67 10*6/uL 4.2-5.4 [facility] Blood hemoglobin measurement (mass/volume)Ordered By: Dr. Aguila on 09-12-2022 Hemoglobin (Bld) [Mass/Vol] 12.3 g/dL 12.0-15.0 [facility] Blood lymphocytes/100 leukoc ytesOrdered By: Dr. Aguila on 09-12-2022 Lymphocytes/100 WBC (Bld) 8.3 % 19-41 [facility] Blood monocytes/100 leukocyt esOrdered By: Dr. Aguila on 09-12-2022 Monocytes/100 WBC (Bld) 5.4 % 0-10 [facility] Blood platelet mean volumeOr dered By: Dr. Aguila on 09-12-2022 Platelet mean volume (Bld) [Entitic vol] 9.4 fL 6.2-12.0 [facility] Determination of erythrocyte mean corpuscular volume (MCV)Ordered By: Dr. Aguila on 09-12-2022 MCV (RBC) [Entitic vol] 86.1 fL 81-99 [facility] Hematocrit Auto (Bld) [Volum e fraction]Ordered By: Dr. Aguila on 09-12-2022 Hematocrit (Bld) [Volume fraction] 40.2 % 37-47 [facility] Influenza virus A and B and SARS-CoV-2 (COVID-19) Ag panel - Upper respiratory specimOrdered By: Dr. Aguila on 09-12-2022 SARS-CoV-2 (COVID-19) RNA NBA+probe Ql (Resp) [facility] Ketones Test strip Ql (U)Ord ered By: Dr. Aguila on 09-12-2022 Ketones Ql (U) Negative Negative [facility] Laboratory - Chemistry and C hemistry - challengeOrdered By: Dr. Aguila on 09-12-2022 CO2 [Moles/Vol] 29.0 mmol/L 21.0-32.0 [facility] Natriuretic peptide B (Bld) [Mass/Vol] 45.3 pg/mL 0-100 [facility] Urea nitrogen/Creatinine [Mass ratio] 17.2 mg/mg 10-20 [facility] Laboratory - Hematology and Cell countsOrdered By: Dr. Aguila on 09-12-2022 Erythrocyte distribution width (RBC) [Entitic vol] 50.2 fL 35.1-43.9 [facility] Erythrocyte distribution width (RBC) [Ratio] 15.9 % 11.6-14.6 [facility] Immature granulocytes/100 WBC (Bld) 0.300 % 0.0-0.9 [facility] Comment on above: IG% - Immature Granu locytes (promyelocytes, myelocytes and metamyelocytes) > 1% indicates that a LEFT SHIFT is Present. MCH (RBC) [Entitic mass] 26.3 pg 27.0-32.0 [facility] Nucleated RBC/100 WBC (Bld) [Ratio] 0 % 0-5 [facility] MCHC Auto (RBC) [Mass/Vol]Or dered By: Dr. Aguila on 09-12-2022 MCHC (RBC) [Mass/Vol] 30.6 g/dL 32-36 [facility] Mucus LM Ql (Urine sed)Order ed By: Dr. Aguila on 09-12-2022 Mucus Ql (Urine sed) 0 SEEN /hpf [facility] Nitrite Test strip Ql (U)Ord ered By: Dr. Aguila on 09-12-2022 Nitrite Ql (U) Negative Negative [facility] No Panel InformationOrdered By: Dr. Aguila on 09-12-2022 Troponin I High Sensitivity 7 pg/mL 3.0-54.0 [facility] Comment on above: Please Note: New [place] t Units and Gender Specific Reference Ranges. For more information see Policy Stat Procedure [place] High Sensitivity Troponin (TNIH) and attachments. 7 pg/mL 3.0-54.0 [facility] D-Dimer Quantitative (PE/DVT) 1.11 FEU/ug/m 0.27-0.49 [facility] Comment on above: D-Dimer ELEVATED (>0 .49): Additional studies and clinicalassessments are indicated to conclude diagnosis of:Deep Vein Thrombosis (DVT) or Pulmonary Embolism (PE)CRITICAL VALUE VERIFIED. CALLED TO BALWINDER BETANCOURT09/12/22 1050 Whit Brito.RESULTS READ BACK BY SAME . Estimated Creatinine Clearance Calc 148.33 ml/min [facility] Estimated GFR (MDRD) Amer 256 mL/min >60 [facility] Comment on above: GFR Calc Estimated GFR (MDRD) Non-Af Amer 211 mL/min >60 [facility] Comment on above: Non- GFR Calc 1.11 FEU/ug/m 0.27-0.49 [facility] 45.3 pg/mL 0-100 [facility] Platelets bldOrdered By: Dr. Aguila on 09-12-2022 Platelets (Bld) [#/Vol] 321 10*3/uL 150-450 [facility] Protein Test strip Ql (U)Ord ered By: Dr. Aguila on 09-12-2022 Protein Ql (U) 100 mg/dl Negative [facility] Respiratory pathogens DNA an d RNA 12b panel NBA+probe (Unsp spec)Ordered By: Dr. Pastor on 09-12-2022 Respiratory Panel (PCR) Rhinovirus [facility] Rhinovirus [facility] Serum or plasma calcium miguel angel urement (mass/volume)Ordered By: Dr. Aguila on 09-12-2022 Calcium [Mass/Vol] 9.0 mg/dL 8.5-10.1 [facility] Serum or plasma creatinine m easurement (mass/volume)Ordered By: Dr. Aguila on 09-12-2022 Creatinine [Mass/Vol] 0.35 mg/dL 0.55-1.02 [facility] Comment on above: The validity of the calculated GFR & GFRAA in patients over 70 years has not been determined. Clinical correlation is essential. Serum or plasma urea nitroge n measurement (mass/volume)Ordered By: Dr. Aguila on 09-12-2022 Urea nitrogen [Mass/Vol] 6 mg/dL 7-18 [facility] Serum procalcitonin measurem entOrdered By: Dr. Pastor on 09-12-2022 Procalcitonin [Mass/Vol] 0.15 ng/mL 0.00-0.09 [facility] Comment on above: A procalcitonin (PCT ) [...] Ql (Urine sed) 0 SEEN /hpf 5-10 [facility] Thin prep Papanicolaou smear with manual screeningOrdered By: Dr. Aguila on 09-12-2022 Thin prep Papanicolaou smear with manual screening 7 5-15 [facility] Urine blood detectionOrdered By: Dr. Aguila on 09-12-2022 RBC Ql (U) 250 /ul Negative [facility] RBC Ql (U) > 100 SEEN /hpf 0-5 [facility] Urine clarityOrdered By: Dr. Aguila on 09-12-2022 Clarity (U) Cloudy Clear [facility] Urine color determinationOrd ered By: Dr. Aguila on 09-12-2022 Color (U) Red Yellow [facility] Urine glucose detectionOrder ed By: Dr. Aguila on 09-12-2022 Glucose Ql (U) Normal mg/dl Normal [facility] Urine leukocyte esterase det ection by dipstickOrdered By: Dr. Aguila on 09-12-2022 Leukocyte esterase Test strip Ql (U) 500 /ul Negative [facility] Urine pHOrdered By: Dr. Taiwo rosado on 09-12-2022 pH (U) 8.0 [pH] 5.0 - 8.0 [facility] Urine sediment bacteria coun t by microscopy (number/high power field)Ordered By: Dr. Aguila on 09-12-2022 Bacteria LM.HPF (Urine sed) [#/Area] 2 /[HPF] None Seen [facility] Urine specific gravity measu rementOrdered By: Dr. Aguila on 09-12-2022 Specific gravity (U) [Rel density] 1.015 1.002-1.030 [facility] Urobilinogen Auto test strip Ql (U)Ordered By: Dr. Aguila on 09-12-2022 Urobilinogen Ql (U) Normal mg/dl Normal [facility] Bacteria identified Cx Nom ( U)Ordered By: Dr. Beasley on 07-26-2022 Culture, urine [facility]ii [facility] Culture, urineOrdered By: Dr Kimberly Beasley on 07-26-2022 Bacteria identified Cx Nom (U) Morganella morganii sp [facility] Absolute lymphocyte countOrd ered By: Dr. Beasley on 07-24-2022 Lymphocytes Auto (Unsp spec) [#/Vol] 3.18 10*3/uL 0.83-4.51 [facility] Amorphous sediment detection in urine sediment by light microscopyOrdered By: Dr. Beasley on 07-24-2022 Amorphous sediment LM Ql (Urine sed) 2+ [facility] Basophil percentageOrdered B y: Dr. Beasley on 07-24-2022 Basophil percentage < 10.0 umol/L 11-32 [facility] Basophil percentage 1.4 mmol/L 0.4-2.0 [facility] Basophils (Bld) [#/Vol] 9.7 10*3/uL 4.4-11.0 [facility] Basophils (Bld) [#/Vol] 5.6 10*3/uL 2.0-7.7 [facility] Basophils/100 WBC (Bld) 0.4 % 0-1 [facility] Basophils/100 WBC (Bld) 58.0 % 47-70 [facility] Basophils/100 WBC (Bld) 3.1 % 0-5 [facility] Eosinophils/100 WBC (Bld) 3.1 % 0-5 [facility] Lactate [Moles/Vol] 1.4 mmol/L 0.4-2.0 [facility] Neutrophils (Bld) [#/Vol] 5.6 10*3/uL 2.0-7.7 [facility] Neutrophils/100 WBC (Bld) 58.0 % 47-70 [facility] WBC (Bld) [#/Vol] 9.7 10*3/uL 4.4-11.0 [facility] Basophil percentage 5-10 SEEN /hpf 0-5 [facility] Basophil percentage 128 mg/dL 74-106 [facility] Basophil percentage 9.0 g/dL 6.4-8.2 [facility] Basophil percentage 0.50 mg/dL 0.20-1.00 [facility] Basophil percentage 138 mmol/L 136-145 [facility] Basophil percentage 4.7 mmol/L 3.5-5.1 [facility] Basophil percentage 105 mmol/L 98-107 [facility] Bilirubin [Mass/Vol] 0.50 mg/dL 0.20-1.00 [facility] Comment on above: For patients on eltr ombopag therapy, use of Dimension [place] TBIL is not recommended. Chloride [Moles/Vol] 105 mmol/L 98-107 [facility] Glucose [Mass/Vol] 128 mg/dL 74-106 [facility] Comment on above: Fasting Glucose resu lt greater than or equal to 126 mg/dL suggests DIABETES MELLITUS per A.D.A. criteria. Potassium [Moles/Vol] 4.7 mmol/L 3.5-5.1 [facility] Comment on above: Moderate Hemolysis, Result may be falsely increased. Protein [Mass/Vol] 9.0 g/dL 6.4-8.2 [facility] Sodium [Moles/Vol] 138 mmol/L 136-145 [facility] Bilirubin Test strip Ql (U)O rdered By: Dr. Beasley on 07-24-2022 Bilirubin Ql (U) Negative Negative [facility] Blood erythrocytes count (nu mber/volume)Ordered By: Dr. Beasley on 07-24-2022 RBC (Bld) [#/Vol] 4.90 10*6/uL 4.2-5.4 [facility] Blood hemoglobin measurement (mass/volume)Ordered By: Dr. Beasley on 07-24-2022 Hemoglobin (Bld) [Mass/Vol] 12.9 g/dL 12.0-15.0 [facility] Blood lymphocytes/100 leukoc ytesOrdered By: Dr. Beasley on 07-24-2022 Lymphocytes/100 WBC (Bld) 32.8 % 19-41 [facility] Blood monocytes/100 leukocyt esOrdered By: Dr. Beasley on 07-24-2022 Monocytes/100 WBC (Bld) 5.5 % 0-10 [facility] Blood platelet mean volumeOr dered By: Dr. Beasley on 07-24-2022 Platelet mean volume (Bld) [Entitic vol] 9.0 fL 6.2-12.0 [facility] Determination of erythrocyte mean corpuscular volume (MCV)Ordered By: Dr. Beasley on 07-24-2022 MCV (RBC) [Entitic vol] 86.9 fL 81-99 [facility] Hematocrit Auto (Bld) [Volum e fraction]Ordered By: Dr. Beasley on 07-24-2022 Hematocrit (Bld) [Volume fraction] 42.6 % 37-47 [facility] Ketones Test strip Ql (U)Ord ered By: Dr. Beasley on 07-24-2022 Ketones Ql (U) Negative Negative [facility] Laboratory - Chemistry and C hemistry - challengeOrdered By: Dr. Beasley on 07-24-2022 ALP [Catalytic activity/Vol] 91 U/L 45-117 [facility] ALT [Catalytic activity/Vol] 45 U/L 13-56 [facility] CO2 [Moles/Vol] 25.0 mmol/L 21.0-32.0 [facility] Globulin (S) [Mass/Vol] 5.6 g/dL 2.2-4.2 [facility] Urea nitrogen/Creatinine [Mass ratio] 23.3 mg/mg 10-20 [facility] Laboratory - Hematology and Cell countsOrdered By: Dr. Beasley on 07-24-2022 Erythrocyte distribution width (RBC) [Entitic vol] 49.7 fL 35.1-43.9 [facility] Erythrocyte distribution width (RBC) [Ratio] 15.8 % 11.6-14.6 [facility] Immature granulocytes/100 WBC (Bld) 0.200 % 0.0-0.9 [facility] Comment on above: IG% - Immature Granu locytes (promyelocytes, myelocytes and metamyelocytes) > 1% indicates that a LEFT SHIFT is Present. MCH (RBC) [Entitic mass] 26.3 pg 27.0-32.0 [facility] Nucleated RBC/100 WBC (Bld) [Ratio] 0 % 0-5 [facility] MCHC Auto (RBC) [Mass/Vol]Or dered By: Dr. Beasley on 07-24-2022 MCHC (RBC) [Mass/Vol] 30.3 g/dL 32-36 [facility] Mucus LM Ql (Urine sed)Order ed By: Dr. Beasley on 07-24-2022 Mucus Ql (Urine sed) 0 SEEN /hpf [facility] Nitrite Test strip Ql (U)Ord ered By: Dr. Beasley on 07-24-2022 Nitrite Ql (U) Negative Negative [facility] No Panel InformationOrdered By: Dr. Beasley on 07-24-2022 26.3 pg 27.0-32.0 [facility] 15.8 % 11.6-14.6 [facility] 49.7 fl 35.1-43.9 [facility] 0.200 % 0.0-0.9 [facility] 0 % 0-5 [facility] Estimated Creatinine Clearance Calc 126.71 ml/min [facility] Estimated GFR (MDRD) Amer 227 mL/min >60 [facility] Comment on above: GFR Calc Estimated GFR (MDRD) Non-Af Amer 188 mL/min >60 [facility] Comment on above: Non- GFR Calc 188 mL/min >60 [facility] 227 mL/min >60 [facility] 126.71 ml/min [facility] 23.3 RATIO 10-20 [facility] 5.6 g/dL 2.2-4.2 [facility] 91 U/L 45-117 [facility] 45 U/L 13-56 [facility] 25.0 mmol/L 21.0-32.0 [facility] Platelets bldOrdered By: Dr. Beasley on 07-24-2022 Platelets (Bld) [#/Vol] 349 10*3/uL 150-450 [facility] Protein Test strip Ql (U)Ord ered By: Dr. Beasley on 07-24-2022 Protein Ql (U) 30 mg/dl Negative [facility] Serum or plasma albumin miguel angel urement (mass/volume)Ordered By: Dr. Beasley on 07-24-2022 Albumin [Mass/Vol] 3.4 g/dL 3.2-5.0 [facility] Serum or plasma albumin/glob ulin mass ratioOrdered By: Dr. Beasley on 07-24-2022 Albumin/Globulin [Mass ratio] 0.6 {ratio} 0.9-2.4 [facility] Serum or plasma calcium miguel angel urement (mass/volume)Ordered By: Dr. Beasley on 07-24-2022 Calcium [Mass/Vol] 9.6 mg/dL 8.5-10.1 [facility] Serum or plasma creatinine m easurement (mass/volume)Ordered By: Dr. Beasley on 07-24-2022 Creatinine [Mass/Vol] 0.39 mg/dL 0.55-1.02 [facility] Comment on above: The validity of the calculated GFR & GFRAA in patients over 70 years has not been determined. Clinical correlation is essential. Serum or plasma urea nitroge n measurement (mass/volume)Ordered By: Dr. Beasley on 07-24-2022 Urea nitrogen [Mass/Vol] 9 mg/dL 7-18 [facility] Squamous epithelial cells de tection in urine sediment by light microscopyOrdered By: Dr. Beasley on 07-24-2022 Epithelial cells.squamous LM Ql (Urine sed) 0 SEEN /hpf 5-10 [facility] Thin prep Papanicolaou smear with manual screeningOrdered By: Dr. Beasley on 07-24-2022 Thin prep Papanicolaou smear with manual screening 55 U/L 15-37 [facility] Comment on above: Moderate Hemolysis, Result may be falsely increased. Thin prep Papanicolaou smear with manual screening 8 5-15 [facility] Urine blood detectionOrdered By: Dr. Beasley on 07-24-2022 RBC Ql (U) 150 /ul Negative [facility] RBC Ql (U) 5-10 SEEN /hpf 0-5 [facility] Urine clarityOrdered By: Dr. Beasley on 07-24-2022 Clarity (U) Turbid Clear [facility] Urine color determinationOrd ered By: Dr. Beasley on 07-24-2022 Color (U) Yellow Yellow [facility] Urine glucose detectionOrder ed By: Dr. Beasley on 07-24-2022 Glucose Ql (U) Normal mg/dl Normal [facility] Urine leukocyte esterase det ection by dipstickOrdered By: Dr. Beasley on 07-24-2022 Leukocyte esterase Test strip Ql (U) 500 /ul Negative [facility] Urine pHOrdered By: Dr. Devika stout on 07-24-2022 pH (U) 7.0 [pH] 5.0 - 8.0 [facility] Urine sediment bacteria coun t by microscopy (number/high power field)Ordered By: Dr. Beasley on 07-24-2022 Bacteria LM.HPF (Urine sed) [#/Area] 2 /[HPF] None Seen [facility] Urine specific gravity measu rementOrdered By: Dr. Beasley on 07-24-2022 Specific gravity (U) [Rel density] 1.010 1.002-1.030 [facility] Urobilinogen Auto test strip Ql (U)Ordered By: Dr. Beasley on 07-24-2022 Urobilinogen Ql (U) Normal mg/dl Normal [facility] Culture, urineOrdered By: Cristi Vicente on 07-07-2022 Bacteria identified Cx Nom (U) Morganella morganii sp morgani [facility] Bacteria identified Cx Nom (U) Proteus mirabilis [facility] Bacteria identified Cx Nom (U) Vancomycin Resist. E. faecalis [facility] Bilirubin Test strip Ql (U)O rdered By: Lavon Vicente on 07-02-2022 Bilirubin Ql (U) Negative Negative [facility] Ketones Test strip Ql (U)Ord ered By: Lavon Vicente on 07-02-2022 Ketones Ql (U) Negative Negative [facility] Nitrite Test strip Ql (U)Ord ered By: Lavon Vicente on 07-02-2022 Nitrite Ql (U) Negative Negative [facility] Protein Test strip Ql (U)Ord ered By: Lavon Vicente on 07-02-2022 Protein Ql (U) Negative Negative [facility] Urine blood detectionOrdered By: Lavon Vicente on 07-02-2022 RBC Ql (U) Negative Negative [facility] Urine clarityOrdered By: Estefany Vicente on 07-02-2022 Clarity (U) Clear Clear [facility] Urine color determinationOrd ered By: Lavon Vicente on 07-02-2022 Color (U) Straw Yellow [facility] Urine glucose detectionOrder ed By: Lavon Vicente on 07-02-2022 Glucose Ql (U) Normal mg/dl Normal [facility] Urine leukocyte esterase det ection by dipstickOrdered By: Lavon Vicente on 07-02-2022 Leukocyte esterase Test strip Ql (U) 500 /ul Negative [facility] Urine pHOrdered By: Lavon alcala on 07-02-2022 pH (U) 7.0 [pH] 5.0 - 8.0 [facility] Urine specific gravity measu rementOrdered By: Lavon Vicente on 07-02-2022 Specific gravity (U) [Rel density] 1.005 1.002-1.030 [facility] Urobilinogen Auto test strip Ql (U)Ordered By: Lavon Vicente on 07-02-2022 Urobilinogen Ql (U) Normal mg/dl Normal [facility] Laboratory - Microbiology an d Antimicrobial susceptibilityOrdered By: Dr. River on 06-08-2022 Bacteria identified Cx Nom (Bld) No growth in 5 days. [facility] Absolute lymphocyte countOrd ered By: Dr. Duval on 06-05-2022 Lymphocytes Auto (Unsp spec) [#/Vol] 2.91 10*3/uL 0.83-4.51 [facility] Basophil percentageOrdered B y: Dr. Duval on 06-05-2022 Basophils/100 WBC (Bld) 0.7 % 0-1 [facility] Bilirubin [Mass/Vol] 0.30 mg/dL 0.20-1.00 [facility] Comment on above: For patients on eltr ombopag therapy, use of Dimension [place] TBIL is not recommended. Chloride [Moles/Vol] 104 mmol/L 98-107 [facility] Eosinophils/100 WBC (Bld) 2.8 % 0-5 [facility] Glucose [Mass/Vol] 142 mg/dL 74-106 [facility] Comment on above: Fasting Glucose resu lt greater than or equal to 126 mg/dL suggests DIABETES MELLITUS per A.D.A. criteria. Neutrophils (Bld) [#/Vol] 3.7 10*3/uL 2.0-7.7 [facility] Neutrophils/100 WBC (Bld) 49.7 % 47-70 [facility] Potassium [Moles/Vol] 3.6 mmol/L 3.5-5.1 [facility] Protein [Mass/Vol] 7.4 g/dL 6.4-8.2 [facility] Sodium [Moles/Vol] 138 mmol/L 136-145 [facility] WBC (Bld) [#/Vol] 7.5 10*3/uL 4.4-11.0 [facility] Blood erythrocytes count (nu mber/volume)Ordered By: Dr. Duval on 06-05-2022 RBC (Bld) [#/Vol] 3.84 10*6/uL 4.2-5.4 [facility] Blood hemoglobin measurement (mass/volume)Ordered By: Dr. Duval on 06-05-2022 Hemoglobin (Bld) [Mass/Vol] 10.4 g/dL 12.0-15.0 [facility] Blood lymphocytes/100 leukoc ytesOrdered By: Dr. Duval on 06-05-2022 Lymphocytes/100 WBC (Bld) 38.7 % 19-41 [facility] Blood monocytes/100 leukocyt esOrdered By: Dr. Duval on 06-05-2022 Monocytes/100 WBC (Bld) 7.6 % 0-10 [facility] Blood platelet mean volumeOr dered By: Dr. Duval on 06-05-2022 Platelet mean volume (Bld) [Entitic vol] 8.7 fL 6.2-12.0 [facility] Culture, urineOrdered By: Dr Kimberly River on 06-05-2022 Bacteria identified Cx Nom (U) Proteus mirabilis [facility] Determination of erythrocyte mean corpuscular volume (MCV)Ordered By: Dr. Duval on 06-05-2022 MCV (RBC) [Entitic vol] 87.8 fL 81-99 [facility] Hematocrit Auto (Bld) [Volum e fraction]Ordered By: Dr. Duval on 06-05-2022 Hematocrit (Bld) [Volume fraction] 33.7 % 37-47 [facility] Laboratory - Chemistry and C hemistry - challengeOrdered By: Dr. Duval on 06-05-2022 ALP [Catalytic activity/Vol] 83 U/L 45-117 [facility] ALT [Catalytic activity/Vol] 56 U/L 13-56 [facility] CO2 [Moles/Vol] 27.0 mmol/L 21.0-32.0 [facility] Globulin (S) [Mass/Vol] 4.6 g/dL 2.2-4.2 [facility] Urea nitrogen/Creatinine [Mass ratio] 20.1 mg/mg 10-20 [facility] Laboratory - Hematology and Cell countsOrdered By: Dr. Duval on 06-05-2022 Erythrocyte distribution width (RBC) [Entitic vol] 50.2 fL 35.1-43.9 [facility] Erythrocyte distribution width (RBC) [Ratio] 15.7 % 11.6-14.6 [facility] Immature granulocytes/100 WBC (Bld) 0.500 % 0.0-0.9 [facility] Comment on above: IG% - Immature Granu locytes (promyelocytes, myelocytes and metamyelocytes) > 1% indicates that a LEFT SHIFT is Present. MCH (RBC) [Entitic mass] 27.1 pg 27.0-32.0 [facility] Nucleated RBC/100 WBC (Bld) [Ratio] 0.3 % 0-5 [facility] MCHC Auto (RBC) [Mass/Vol]Or dered By: Dr. Duval on 06-05-2022 MCHC (RBC) [Mass/Vol] 30.9 g/dL 32-36 [facility] No Panel InformationOrdered By: Dr. Duval on 06-05-2022 Estimated Creatinine Clearance Calc 109.82 ml/min [facility] Estimated GFR (MDRD) Amer 192 mL/min >60 [facility] Comment on above: GFR Calc Estimated GFR (MDRD) Non-Af Amer 159 mL/min >60 [facility] Comment on above: Non- GFR Calc Platelets bldOrdered By: Dr. Duval on 06-05-2022 Platelets (Bld) [#/Vol] 313 10*3/uL 150-450 [facility] Serum or plasma albumin miguel angel urement (mass/volume)Ordered By: Dr. Duval on 06-05-2022 Albumin [Mass/Vol] 2.8 g/dL 3.2-5.0 [facility] Serum or plasma albumin/glob ulin mass ratioOrdered By: Dr. Duval on 06-05-2022 Albumin/Globulin [Mass ratio] 0.6 {ratio} 0.9-2.4 [facility] Serum or plasma calcium miguel angel urement (mass/volume)Ordered By: Dr. Duval on 06-05-2022 Calcium [Mass/Vol] 8.7 mg/dL 8.5-10.1 [facility] Serum or plasma creatinine m easurement (mass/volume)Ordered By: Dr. Duval on 06-05-2022 Creatinine [Mass/Vol] 0.45 mg/dL 0.55-1.02 [facility] Comment on above: The validity of the calculated GFR & GFRAA in patients over 70 years has not been determined. Clinical correlation is essential. Serum or plasma urea nitroge n measurement (mass/volume)Ordered By: Dr. Duval on 06-05-2022 Urea nitrogen [Mass/Vol] 9 mg/dL 7-18 [facility] Thin prep Papanicolaou smear with manual screeningOrdered By: Dr. Duval on 06-05-2022 Thin prep Papanicolaou smear with manual screening 27 U/L 15- [facility] Thin prep Papanicolaou smear with manual screening 7 5-15 [facility] Absolute lymphocyte counton 06-03-2022 Lymphocytes Auto (Unsp spec) [#/Vol] 2.86 10*3/uL 0.83-4.51 [facility] Work Phone: Amorphous sediment detection in urine sediment by light microscopyOrdered By: Dr. River on 06-03-2022 Amorphous sediment LM Ql (Urine sed) 2+ [facility] Basophil percentageOrdered B y: Dr. River on 06-03-2022 Basophil percentage >100 SEEN /hpf 0-5 [facility] Lactate [Moles/Vol] 0.8 mmol/L 0.4-2.0 [facility] Basophil percentageon 2021 Basophils/100 WBC (Bld) 0.5 % 0-1 [facility] Work Phone: Bilirubin [Mass/Vol] 0.20 mg/dL 0.20-1.00 [facility] Work Phone: Comment on above: For patients on eltr ombopag therapy, use of Dimension [place] TBIL is not recommended. Chloride [Moles/Vol] 102 mmol/L 98-107 [facility] Work Phone: Eosinophils/100 WBC (Bld) 3.7 % 0-5 [facility] Work Phone: Glucose [Mass/Vol] 127 mg/dL 74-106 [facility] Work Phone: Comment on above: Fasting Glucose resu lt greater than or equal to 126 mg/dL suggests DIABETES MELLITUS per A.D.A. criteria. Neutrophils (Bld) [#/Vol] 4.1 10*3/uL 2.0-7.7 [facility] Work Phone: Neutrophils/100 WBC (Bld) 52.3 % 47-70 [facility] Work Phone: [phone] Potassium [Moles/Vol] 3.8 mmol/L 3.5-5.1 [facility] Work Phone: Comment on above: Slight Hemolysis, Re sult may be falsely increased. Protein [Mass/Vol] 7.6 g/dL 6.4-8.2 [facility] Work Phone: Sodium [Moles/Vol] 138 mmol/L 136-145 [facility] Work Phone: [phone] WBC (Bld) [#/Vol] 7.9 10*3/uL 4.4-11.0 [facility] Work Phone: Bilirubin Test strip Ql (U)O rdered By: Dr. River on 06-03-2022 Bilirubin Ql (U) 3 mg/dL Negative [facility] Comment on above: COLOR OF URINE MAY A FFECT DIPSTICK RESULTS. Blood erythrocytes count (nu mber/volume)on 06-03-2022 RBC (Bld) [#/Vol] 4.04 10*6/uL 4.2-5.4 [facility] Work Phone: Blood hemoglobin measurement (mass/volume)on 06-03-2022 Hemoglobin (Bld) [Mass/Vol] 10.7 g/dL 12.0-15.0 [facility] Work Phone: Blood lymphocytes/100 leukoc yteson 06-03-2022 Lymphocytes/100 WBC (Bld) 36.2 % 19-41 [facility] Work Phone: Blood monocytes/100 leukocyt eson 06-03-2022 Monocytes/100 WBC (Bld) 6.8 % 0-10 [facility] Work Phone: [phone] Blood platelet mean volumeon 06-03-2022 Platelet mean volume (Bld) [Entitic vol] 8.8 fL 6.2-12.0 [facility] Work Phone: [phone] Determination of erythrocyte mean corpuscular volume (MCV)on 06-03-2022 MCV (RBC) [Entitic vol] 87.4 fL 81-99 [facility] Work Phone: [phone] Hematocrit Auto (Bld) [Volum e fraction]on 06-03-2022 Hematocrit (Bld) [Volume fraction] 35.3 % 37-47 [facility] Work Phone: INR in Blood by Coagulation assayOrdered By: Dr. River on 06-03-2022 INR Coag (Bld) [Relative time] 1.2 {INR} [facility] Influenza virus A and B and SARS-CoV-2 (COVID-19) Ag panel - Upper respiratory specimOrdered By: Dr. River on 06-03-2022 SARS-CoV-2 (COVID-19) RNA NBA+probe Ql (Resp) [facility] Ketones Test strip Ql (U)Ord ered By: Dr. River on 06-03-2022 Ketones Ql (U) 15 mg/dl Negative [facility] Laboratory - Chemistry and C hemistry - challengeon 06-03-2022 ALP [Catalytic activity/Vol] 96 U/L 45-117 [facility] Work Phone: [phone] ALT [Catalytic activity/Vol] 69 U/L 13-56 [facility] Work Phone: [phone] CO2 [Moles/Vol] 31.0 mmol/L 21.0-32.0 [facility] Work Phone: Globulin (S) [Mass/Vol] 4.7 g/dL 2.2-4.2 [facility] Work Phone: Urea nitrogen/Creatinine [Mass ratio] 49.4 mg/mg 10-20 [facility] Work Phone: Laboratory - CoagulationOrde red By: Dr. River on 06-03-2022 aPTT Coag (Bld) [Time] 34.1 s 24.1-36.2 [facility] PT Coag (PPP) [Time] 14.6 s 11.7-14.9 [facility] Laboratory - Hematology and Cell countson 06-03-2022 Erythrocyte distribution width (RBC) [Entitic vol] 50.6 fL 35.1-43.9 [facility] Work Phone: Erythrocyte distribution width (RBC) [Ratio] 15.8 % 11.6-14.6 [facility] Work Phone: Immature granulocytes/100 WBC (Bld) 0.500 % 0.0-0.9 [facility] Work Phone: Comment on above: IG% - Immature Granu locytes (promyelocytes, myelocytes and metamyelocytes) > 1% indicates that a LEFT SHIFT is Present. MCH (RBC) [Entitic mass] 26.5 pg 27.0-32.0 [facility] Work Phone: Nucleated RBC/100 WBC (Bld) [Ratio] 0 % 0-5 [facility] Work Phone: MCHC Auto (RBC) [Mass/Vol]on 06-03-2022 MCHC (RBC) [Mass/Vol] 30.3 g/dL 32-36 [facility] Work Phone: Magnesium ammonium phosphate crystal detectionOrdered By: Dr. River on 06-03-2022 Triple phosphate crystals LM Ql (Urine sed) 1+ /hpf [facility] Mucus LM Ql (Urine sed)Order ed By: Dr. River on 06-03-2022 Mucus Ql (Urine sed) 0 SEEN /hpf [facility] Nitrite Test strip Ql (U)Ord ered By: Dr. River on 06-03-2022 Nitrite Ql (U) Positive Negative [facility] No Panel InformationOrdered By: Dr. River on 06-03-2022 Urine Transitional Epithelial Cells 0-5 SEEN /hpf 0-5 [facility] No Panel Informationon 06-03 Estimated Creatinine Clearance Calc 142.28 ml/min [facility] Work Phone: Estimated GFR (MDRD) Amer 216 mL/min >60 [facility] Work Phone: Comment on above: GFR Calc Estimated GFR (MDRD) Non-Af Amer 178 mL/min >60 [facility] Work Phone: Comment on above: Non- GFR Calc Platelets bldon 06-03-2022 Platelets (Bld) [#/Vol] 363 10*3/uL 150-450 [facility] Work Phone: Protein Test strip Ql (U)Ord ered By: Dr. River on 06-03-2022 Protein Ql (U) 100 mg/dl Negative [facility] Serum or plasma albumin miguel angel urement (mass/volume)on 06-03-2022 Albumin [Mass/Vol] 2.9 g/dL 3.2-5.0 [facility] Work Phone: Serum or plasma albumin/glob ulin mass ratioon 06-03-2022 Albumin/Globulin [Mass ratio] 0.6 {ratio} 0.9-2.4 [facility] Work Phone: Serum or plasma calcium miguel angel urement (mass/volume)on 06-03-2022 Calcium [Mass/Vol] 8.7 mg/dL 8.5-10.1 [facility] Work Phone: [phone] Serum or plasma creatinine m easurement (mass/volume)on 06-03-2022 Creatinine [Mass/Vol] 0.40 mg/dL 0.55-1.02 [facility] Work Phone: Comment on above: The validity of the calculated GFR & GFRAA in patients over 70 years has not been determined. Clinical correlation is essential. Serum or plasma urea nitroge n measurement (mass/volume)on 06-03-2022 Urea nitrogen [Mass/Vol] 20 mg/dL 7-18 [facility] Work Phone: Squamous epithelial cells de tection in urine sediment by light microscopyOrdered By: Dr. River on 06-03-2022 Epithelial cells.squamous LM Ql (Urine sed) 0-5 SEEN /hpf 5-10 [facility] Thin prep Papanicolaou smear with manual screeningon 06-03-2022 Thin prep Papanicolaou smear with manual screening 39 U/L 15-37 [facility] Work Phone: Comment on above: Slight Hemolysis, Re sult may be falsely increased. Thin prep Papanicolaou smear with manual screening 5 5-15 [facility] Work Phone: Urine blood detectionOrdered By: Dr. River on 06-03-2022 RBC Ql (U) 150 /ul Negative [facility] RBC Ql (U) 10-25 SEEN /hpf 0-5 [facility] Urine clarityOrdered By: Dr. River on 06-03-2022 Clarity (U) Cloudy Clear [facility] Urine color determinationOrd ered By: Dr. River on 06-03-2022 Color (U) Yellow Yellow [facility] Urine glucose detectionOrder ed By: Dr. River on 06-03-2022 Glucose Ql (U) Normal mg/dl Normal [facility] Urine leukocyte esterase det ection by dipstickOrdered By: Dr. River on 06-03-2022 Leukocyte esterase Test strip Ql (U) 500 /ul Negative [facility] Urine pHOrdered By: Dr. Janae payton on 06-03-2022 pH (U) 7.0 [pH] 5.0 - 8.0 [facility] Urine sediment bacteria coun t by microscopy (number/high power field)Ordered By: Dr. River on 06-03-2022 Bacteria LM.HPF (Urine sed) [#/Area] 4 /[HPF] None Seen [facility] Urine sediment renal epithel ial cell count by microscopy (number/high power field)Ordered By: Dr. River on 06-03-2022 Epithelial cells.renal LM.HPF (Urine sed) [#/Area] 0 /[HPF] 0-5 [facility] Urine specific gravity measu rementOrdered By: Dr. River on 06-03-2022 Specific gravity (U) [Rel density] 1.015 1.002-1.030 [facility] Urobilinogen Auto test strip Ql (U)Ordered By: Dr. River on 06-03-2022 Urobilinogen Ql (U) 4 mg/dl Normal [facility] Culture, urineOrdered By: Cristi Vicente on 04-01-2022 Bacteria identified Cx Nom (U) Proteus mirabilis [facility] Basophil percentageOrdered B y: Lavon Vicente on 03-27-2022 Basophil percentage 10-25 SEEN /hpf 0-5 [facility] Bilirubin Test strip Ql (U)O rdered By: Lavon Vicente on 03-27-2022 Bilirubin Ql (U) Negative Negative [facility] Ketones Test strip Ql (U)Ord ered By: Lavon Vicente on 03-27-2022 Ketones Ql (U) Negative Negative [facility] Magnesium ammonium phosphate crystal detectionOrdered By: Lvaon Vicente on 03-27-2022 Triple phosphate crystals LM Ql (Urine sed) 3+ /hpf [facility] Mucus LM Ql (Urine sed)Order ed By: Lavon Vicente on 03-27-2022 Mucus Ql (Urine sed) 0 SEEN /hpf [facility] Nitrite Test strip Ql (U)Ord ered By: Lavon Vicente on 03-27-2022 Nitrite Ql (U) Positive Negative [facility] Protein Test strip Ql (U)Ord ered By: Lavon Vicente on 03-27-2022 Protein Ql (U) 30 mg/dl Negative [facility] Squamous epithelial cells de tection in urine sediment by light microscopyOrdered By: Lavon Vicente on 03-27-2022 Epithelial cells.squamous LM Ql (Urine sed) 0-5 SEEN /hpf 5-10 [facility] Urine blood detectionOrdered By: Lavon Vicente on 03-27-2022 RBC Ql (U) 250 /ul Negative [facility] RBC Ql (U) 10-25 SEEN /hpf 0-5 [facility] Urine clarityOrdered By: Estefany Vicente on 03-27-2022 Clarity (U) Cloudy Clear [facility] Urine color determinationOrd ered By: Lavon Vicente on 03-27-2022 Color (U) Yellow Yellow [facility] Urine glucose detectionOrder ed By: Lavon Vicente on 03-27-2022 Glucose Ql (U) Normal mg/dl Normal [facility] Urine leukocyte esterase det ection by dipstickOrdered By: Lavon Vicente on 03-27-2022 Leukocyte esterase Test strip Ql (U) 500 /ul Negative [facility] Urine pHOrdered By: Lavon alcala on 03-27-2022 pH (U) 8.0 [pH] 5.0 - 8.0 [facility] Urine sediment bacteria coun t by microscopy (number/high power field)Ordered By: Lavon Vicente on 03-27-2022 Bacteria LM.HPF (Urine sed) [#/Area] 4 /[HPF] None Seen [facility] Urine specific gravity measu rementOrdered By: Lavon Vicente on 03-27-2022 Specific gravity (U) [Rel density] 1.010 1.002-1.030 [facility] Urobilinogen Auto test strip Ql (U)Ordered By: Lavon Vicente on 03-27-2022 Urobilinogen Ql (U) Normal mg/dl Normal [facility] Iron measurement (mass/mass) on 03-18-2022 Iron (Unsp spec) [Mass/Mass] 45 ug/dL 50-170 [facility] Work Phone: No Panel Informationon 03-18 Total Iron Binding Capacity 281 ug/dL 250-450 [facility] Work Phone: Serum or plasma iron saturat ion measurement (mass fraction)on 03-18-2022 Iron saturation [Mass fraction] 16.0 % 15.0-55.0 [facility] Work Phone: Basophil percentageon 2021 Basophil percentage 25-50 SEEN /hpf 0-5 [facility] Work Phone: Bilirubin Test strip Ql (U)o n 02-27-2022 Bilirubin Ql (U) Negative Negative [facility] Work Phone: Ketones Test strip Ql (U)on 02-27-2022 Ketones Ql (U) Negative Negative [facility] Work Phone: Mucus LM Ql (Urine sed)on Mucus Ql (Urine sed) 0 SEEN /hpf [facility] Work Phone: Nitrite Test strip Ql (U)on 02-27-2022 Nitrite Ql (U) Negative Negative [facility] Work Phone: Protein Test strip Ql (U)on 02-27-2022 Protein Ql (U) 15 mg/dl Negative [facility] Work Phone: Squamous epithelial cells de tection in urine sediment by light microscopyon 02-27-2022 Epithelial cells.squamous LM Ql (Urine sed) 0-5 SEEN /hpf 5-10 [facility] Work Phone: Urine blood detectionon 02-12 RBC Ql (U) 250 /ul Negative [facility] Work Phone: RBC Ql (U) 25-50 SEEN /hpf 0-5 [facility] Work Phone: Urine clarityon 02-27-2022 Clarity (U) Sl. Cloudy Clear [facility] Work Phone: Urine color determinationon 02-27-2022 Color (U) Yellow Yellow [facility] Work Phone: Urine glucose detectionon Glucose Ql (U) Normal mg/dl Normal [facility] Work Phone: Urine leukocyte esterase det ection by dipstickon 02-27-2022 Leukocyte esterase Test strip Ql (U) 500 /ul Negative [facility] Work Phone: Urine pHon 02-27-2022 pH (U) 8.0 [pH] 5.0 - 8.0 [facility] Work Phone: Urine sediment bacteria coun t by microscopy (number/high power field)on 02-27-2022 Bacteria LM.HPF (Urine sed) [#/Area] 1 /[HPF] None Seen [facility] Work Phone: Urine specific gravity measu rementon 02-27-2022 Specific gravity (U) [Rel density] 1.010 1.002-1.030 [facility] Work Phone: Urobilinogen Auto test strip Ql (U)on 02-27-2022 Urobilinogen Ql (U) Normal mg/dl Normal [facility] Work Phone: Basophil percentageon 2021 Chloride [Moles/Vol] 103 mmol/L 98-107 [facility] Work Phone: [phone] Glucose [Mass/Vol] 191 mg/dL 74-106 [facility] Work Phone: [phone] Comment on above: Fasting Glucose resu lt greater than or equal to 126 mg/dL suggests DIABETES MELLITUS per A.D.A. criteria. Potassium [Moles/Vol] 3.8 mmol/L 3.5-5.1 [facility] Work Phone: [phone] Sodium [Moles/Vol] 140 mmol/L 136-145 [facility] Work Phone: [phone] WBC (Bld) [#/Vol] 6.8 10*3/uL 4.4-11.0 [facility] Work Phone: [phone] Blood erythrocytes count (nu mber/volume)on 02-19-2022 RBC (Bld) [#/Vol] 4.10 10*6/uL 4.2-5.4 [facility] Work Phone: [phone] Blood hemoglobin measurement (mass/volume)on 02-19-2022 Hemoglobin (Bld) [Mass/Vol] 11.3 g/dL 12.0-15.0 [facility] Work Phone: [phone] Blood platelet mean volumeon 02-19-2022 Platelet mean volume (Bld) [Entitic vol] 9.2 fL 6.2-12.0 [facility] Work Phone: [phone] Determination of erythrocyte mean corpuscular volume (MCV)on 02-19-2022 MCV (RBC) [Entitic vol] 90.2 fL 81-99 [facility] Work Phone: [phone] Hematocrit Auto (Bld) [Volum e fraction]on 02-19-2022 Hematocrit (Bld) [Volume fraction] 37.0 % 37-47 [facility] Work Phone: Laboratory - Chemistry and C hemistry - challengeon 02-19-2022 CO2 [Moles/Vol] 29.0 mmol/L 21.0-32.0 [facility] Work Phone: Urea nitrogen/Creatinine [Mass ratio] 24.0 mg/mg 10-20 [facility] Work Phone: [phone] Laboratory - Hematology and Cell countson 02-19-2022 Erythrocyte distribution width (RBC) [Entitic vol] 52.4 fL 35.1-43.9 [facility] Work Phone: Erythrocyte distribution width (RBC) [Ratio] 16.0 % 11.6-14.6 [facility] Work Phone: [phone] MCH (RBC) [Entitic mass] 27.6 pg 27.0-32.0 [facility] Work Phone: MCHC Auto (RBC) [Mass/Vol]on 02-19-2022 MCHC (RBC) [Mass/Vol] 30.5 g/dL 32-36 [facility] Work Phone: No Panel Informationon 02-19 Estimated GFR (MDRD) Amer 187 mL/min >60 [facility] Work Phone: Comment on above: GFR Calc Estimated GFR (MDRD) Non-Af Amer 154 mL/min >60 [facility] Work Phone: Comment on above: Non- GFR Calc Thyroid Stimulating Hormone (TSH) 2.26 uIU/mL 0.358-3.74 [facility] Work Phone: Vitamin D 25-Hydroxy 32.3 ng/mL [facility] Work Phone: Comment on above: Vitamin D 25(OH) Sta tus Range Deficiency <20 ng/mL (50nmol/L) Insufficiency 20 - 30 ng/mL (50 - 75 nmol/L) Sufficiency 30 - 100 ng/mL (75 - 250 nmol/L) Toxicity >100 ng/mL (>250 nmol/L) Platelets bldon 02-19-2022 Platelets (Bld) [#/Vol] 301 10*3/uL 150-450 [facility] Work Phone: Serum or plasma calcium miguel angel urement (mass/volume)on 02-19-2022 Calcium [Mass/Vol] 8.8 mg/dL 8.5-10.1 [facility] Work Phone: Serum or plasma creatinine m easurement (mass/volume)on 02-19-2022 Creatinine [Mass/Vol] 0.46 mg/dL 0.55-1.02 [facility] Work Phone: Comment on above: The validity of the calculated GFR & GFRAA in patients over 70 years has not been determined. Clinical correlation is essential. Serum or plasma urea nitroge n measurement (mass/volume)on 02-19-2022 Urea nitrogen [Mass/Vol] 11 mg/dL 7-18 [facility] Work Phone: Thin prep Papanicolaou smear with manual screeningon 02-19-2022 Thin prep Papanicolaou smear with manual screening 8 5-15 [facility] Work Phone: Basophil percentageon 2021 Basophil percentage 25-50 SEEN /hpf 0-5 [facility] Work Phone: Bilirubin Test strip Ql (U)o n 01-13-2022 Bilirubin Ql (U) 3 mg/dL Negative [facility] Work Phone: Comment on above: COLOR OF URINE MAY A FFECT DIPSTICK RESULTS. Ketones Test strip Ql (U)on 01-13-2022 Ketones Ql (U) Negative Negative [facility] Work Phone: Magnesium ammonium phosphate crystal detectionon 01-13-2022 Triple phosphate crystals LM Ql (Urine sed) 2+ /hpf [facility] Work Phone: Mucus LM Ql (Urine sed)on Mucus Ql (Urine sed) 0 SEEN /hpf [facility] Work Phone: Nitrite Test strip Ql (U)on 01-13-2022 Nitrite Ql (U) Positive Negative [facility] Work Phone: Protein Test strip Ql (U)on 01-13-2022 Protein Ql (U) 15 mg/dl Negative [facility] Work Phone: Squamous epithelial cells de tection in urine sediment by light microscopyon 01-13-2022 Epithelial cells.squamous LM Ql (Urine sed) 0 SEEN /hpf 5-10 [facility] Work Phone: Urine blood detectionon 08-0 RBC Ql (U) 50 /ul Negative [facility] Work Phone: RBC Ql (U) 0-5 SEEN /hpf 0-5 [facility] Work Phone: Urine clarityon 01-13-2022 Clarity (U) Sl. Cloudy Clear [facility] Work Phone: Urine color determinationon 01-13-2022 Color (U) Yellow Yellow [facility] Work Phone: Urine glucose detectionon Glucose Ql (U) Normal mg/dl Normal [facility] Work Phone: Urine leukocyte esterase det ection by dipstickon 01-13-2022 Leukocyte esterase Test strip Ql (U) 500 /ul Negative [facility] Work Phone: Urine pHon 01-13-2022 pH (U) 8.0 [pH] 5.0 - 8.0 [facility] Work Phone: Urine sediment bacteria coun t by microscopy (number/high power field)on 01-13-2022 Bacteria LM.HPF (Urine sed) [#/Area] 1 /[HPF] None Seen [facility] Work Phone: Urine specific gravity measu rementon 01-13-2022 Specific gravity (U) [Rel density] 1.010 1.002-1.030 [facility] Work Phone: Urobilinogen Auto test strip Ql (U)on 01-13-2022 Urobilinogen Ql (U) 4 mg/dl Normal [facility] Work Phone: Basophil percentageon 2021 Basophil percentage 0-5 SEEN /hpf 0-5 [facility] Work Phone: Bilirubin Test strip Ql (U)o n 12-24-2021 Bilirubin Ql (U) Negative Negative [facility] Work Phone: Ketones Test strip Ql (U)on 12-24-2021 Ketones Ql (U) Negative Negative [facility] Work Phone: Mucus LM Ql (Urine sed)on Mucus Ql (Urine sed) 0 SEEN /hpf [facility] Work Phone: Nitrite Test strip Ql (U)on 12-24-2021 Nitrite Ql (U) Negative Negative [facility] Work Phone: Protein Test strip Ql (U)on 12-24-2021 Protein Ql (U) 30 mg/dl Negative [facility] Work Phone: Squamous epithelial cells de tection in urine sediment by light microscopyon 12-24-2021 Epithelial cells.squamous LM Ql (Urine sed) 0-5 SEEN /hpf 5-10 [facility] Work Phone: Urine blood detectionon 12-12 RBC Ql (U) 50 /ul Negative [facility] Work Phone: RBC Ql (U) 0-5 SEEN /hpf 0-5 [facility] Work Phone: Urine clarityon 12-24-2021 Clarity (U) Sl. Cloudy Clear [facility] Work Phone: Urine color determinationon 12-24-2021 Color (U) Yellow Yellow [facility] Work Phone: Urine glucose detectionon Glucose Ql (U) Normal mg/dl Normal [facility] Work Phone: Urine leukocyte esterase det ection by dipstickon 12-24-2021 Leukocyte esterase Test strip Ql (U) 500 /ul Negative [facility] Work Phone: Urine pHon 12-24-2021 pH (U) 7.0 [pH] 5.0 - 8.0 [facility] Work Phone: Urine sediment bacteria coun t by microscopy (number/high power field)on 12-24-2021 Bacteria LM.HPF (Urine sed) [#/Area] 0 /[HPF] None Seen [facility] Work Phone: Urine specific gravity measu rementon 12-24-2021 Specific gravity (U) [Rel density] 1.010 1.002-1.030 [facility] Work Phone: Urobilinogen Auto test strip Ql (U)on 12-24-2021 Urobilinogen Ql (U) Normal mg/dl Normal [facility] Work Phone: Iron measurement (mass/mass) on 11-24-2021 Iron (Unsp spec) [Mass/Mass] 59 ug/dL 50-170 [facility] Work Phone: No Panel Informationon 11-24 Total Iron Binding Capacity 294 ug/dL 250-450 [facility] Work Phone: Serum or plasma ferritin shantel surement (mass/volume)on 11-24-2021 Ferritin [Mass/Vol] 90 ng/mL 8-252 [facility] Work Phone: Amorphous sediment detection in urine sediment by light microscopyon 10-27-2021 Amorphous sediment LM Ql (Urine sed) 2+ [facility] Work Phone: Basophil percentageon 2021 Basophil percentage 10-25 SEEN /hpf 0-5 [facility] Work Phone: Bilirubin Test strip Ql (U)o n 10-27-2021 Bilirubin Ql (U) Negative Negative [facility] Work Phone: Culture, urineon 10-27-2021 Bacteria identified Cx Nom (U) Proteus mirabilis [facility] Work Phone: Ketones Test strip Ql (U)on 10-27-2021 Ketones Ql (U) Negative Negative [facility] Work Phone: Magnesium ammonium phosphate crystal detectionon 10-27-2021 Triple phosphate crystals LM Ql (Urine sed) 1+ /hpf [facility] Work Phone: Mucus LM Ql (Urine sed)on Mucus Ql (Urine sed) 0 SEEN /hpf [facility] Work Phone: Nitrite Test strip Ql (U)on 10-27-2021 Nitrite Ql (U) Positive Negative [facility] Work Phone: Protein Test strip Ql (U)on 10-27-2021 Protein Ql (U) 15 mg/dl Negative [facility] Work Phone: Squamous epithelial cells de tection in urine sediment by light microscopyon 10-27-2021 Epithelial cells.squamous LM Ql (Urine sed) 0-5 SEEN /hpf 5-10 [facility] Work Phone: Urine blood detectionon 10-12 RBC Ql (U) 25 /ul Negative [facility] Work Phone: RBC Ql (U) 0 SEEN /hpf 0-5 [facility] Work Phone: Urine clarityon 10-27-2021 Clarity (U) Cloudy Clear [facility] Work Phone: Urine color determinationon 10-27-2021 Color (U) Yellow Yellow [facility] Work Phone: Urine glucose detectionon Glucose Ql (U) Normal mg/dl Normal [facility] Work Phone: Urine leukocyte esterase det ection by dipstickon 10-27-2021 Leukocyte esterase Test strip Ql (U) 500 /ul Negative [facility] Work Phone: Urine pHon 10-27-2021 pH (U) 8.0 [pH] 5.0 - 8.0 [facility] Work Phone: Urine sediment bacteria coun t by microscopy (number/high power field)on 10-27-2021 Bacteria LM.HPF (Urine sed) [#/Area] 2 /[HPF] None Seen [facility] Work Phone: Urine specific gravity measu rementon 10-27-2021 Specific gravity (U) [Rel density] 1.010 1.002-1.030 [facility] Work Phone: Urobilinogen Auto test strip Ql (U)on 10-27-2021 Urobilinogen Ql (U) Normal mg/dl Normal [facility] Work Phone: Basophil percentageon 2021 Chloride [Moles/Vol] 106 mmol/L 98-107 [facility] Work Phone: [phone] Glucose [Mass/Vol] 120 mg/dL 74-106 [facility] Work Phone: [phone] Comment on above: Fasting Glucose resu lt from 100 to 125 mg/dL suggests IMPAIRED HOMEOSTASIS per A.D.A. criteria. Potassium [Moles/Vol] 3.7 mmol/L 3.5-5.1 [facility] Work Phone: [phone] Sodium [Moles/Vol] 138 mmol/L 136-145 [facility] Work Phone: [phone] WBC (Bld) [#/Vol] 9.0 10*3/uL 4.4-11.0 [facility] Work Phone: [phone] Blood erythrocytes count (nu mber/volume)on 08-21-2021 RBC (Bld) [#/Vol] 3.98 10*6/uL 4.2-5.4 [facility] Work Phone: [phone] Blood hemoglobin measurement (mass/volume)on 08-21-2021 Hemoglobin (Bld) [Mass/Vol] 11.3 g/dL 12.0-15.0 [facility] Work Phone: [phone] Blood platelet mean volumeon 08-21-2021 Platelet mean volume (Bld) [Entitic vol] 8.9 fL 6.2-12.0 [facility] Work Phone: [phone] Determination of erythrocyte mean corpuscular volume (MCV)on 08-21-2021 MCV (RBC) [Entitic vol] 91.5 fL 81-99 [facility] Work Phone: Hematocrit Auto (Bld) [Volum e fraction]on 08-21-2021 Hematocrit (Bld) [Volume fraction] 36.4 % 37-47 [facility] Work Phone: [phone] Laboratory - Chemistry and C hemistry - challengeon 08-21-2021 CO2 [Moles/Vol] 28.0 mmol/L 21.0-32.0 [facility] Work Phone: [phone] Urea nitrogen/Creatinine [Mass ratio] 38.8 mg/mg 10- [facility] Work Phone: [phone] Laboratory - Hematology and Cell countson 08-21-2021 Erythrocyte distribution width (RBC) [Entitic vol] 51.8 fL 35.1-43.9 [facility] Work Phone: [phone] Erythrocyte distribution width (RBC) [Ratio] 15.7 % 11.6-14.6 [facility] Work Phone: [phone] MCH (RBC) [Entitic mass] 28.4 pg 27.0-32.0 [facility] Work Phone: [phone] MCHC Auto (RBC) [Mass/Vol]on 08-21-2021 MCHC (RBC) [Mass/Vol] 31.0 g/dL 32-36 [facility] Work Phone: No Panel Informationon 08-21 Estimated GFR (MDRD) Amer 269 mL/min >60 [facility] Work Phone: Comment on above: GFR Calc Estimated GFR (MDRD) Non-Af Amer 223 mL/min >60 [facility] Work Phone: [phone] Comment on above: Non- GFR Calc Thyroid Stimulating Hormone (TSH) 1.55 uIU/mL 0.358-3.74 [facility] Work Phone: [phone] Vitamin D 25-Hydroxy 26.9 ng/mL [facility] Work Phone: [phone] Comment on above: Vitamin D 25(OH) Sta tus Range Deficiency <20 ng/mL (50nmol/L) Insufficiency 20 - 30 ng/mL (50 - 75 nmol/L) Sufficiency 30 - 100 ng/mL (75 - 250 nmol/L) Toxicity >100 ng/mL (>250 nmol/L) Platelets bldon 08-21-2021 Platelets (Bld) [#/Vol] 351 10*3/uL 150-450 [facility] Work Phone: Serum or plasma calcium miguel angel urement (mass/volume)on 08-21-2021 Calcium [Mass/Vol] 8.7 mg/dL 8.5-10.1 [facility] Work Phone: Serum or plasma creatinine m easurement (mass/volume)on 08-21-2021 Creatinine [Mass/Vol] 0.34 mg/dL 0.55-1.02 [facility] Work Phone: Comment on above: The validity of the calculated GFR & GFRAA in patients over 70 years has not been determined. Clinical correlation is essential. Serum or plasma urea nitroge n measurement (mass/volume)on 08-21-2021 Urea nitrogen [Mass/Vol] 13 mg/dL 7-18 [facility] Work Phone: Thin prep Papanicolaou smear with manual screeningon 08-21-2021 Thin prep Papanicolaou smear with manual screening 4 5-15 [facility] Work Phone: Basophil percentageon 2021 Basophil percentage 50-100 SEEN /hpf [facility] Work Phone: Bilirubin Test strip Ql (U)o n 08-13-2021 Bilirubin Ql (U) Negative Negative [facility] Work Phone: Ketones Test strip Ql (U)on 08-13-2021 Ketones Ql (U) 5 mg/dl Negative [facility] Work Phone: Mucus LM Ql (Urine sed)on Mucus Ql (Urine sed) 0 SEEN /hpf [facility] Work Phone: [phone] Nitrite Test strip Ql (U)on 08-13-2021 Nitrite Ql (U) Positive Negative [facility] Work Phone: Protein Test strip Ql (U)on 08-13-2021 Protein Ql (U) 100 mg/dl Negative [facility] Work Phone: Squamous epithelial cells de tection in urine sediment by light microscopyon 08-13-2021 Epithelial cells.squamous LM Ql (Urine sed) 0-5 SEEN /hpf [facility] Work Phone: Urine blood detectionon RBC Ql (U) 250 /ul Negative [facility] Work Phone: RBC Ql (U) 0 SEEN /hpf [facility] Work Phone: Urine clarityon 08-13-2021 Clarity (U) Clear Clear [facility] Work Phone: Urine color determinationon 08-13-2021 Color (U) Yellow Yellow [facility] Work Phone: Urine glucose detectionon Glucose Ql (U) Normal mg/dl Normal [facility] Work Phone: Urine leukocyte esterase det ection by dipstickon 08-13-2021 Leukocyte esterase Test strip Ql (U) 500 /ul Negative [facility] Work Phone: Urine pHon 08-13-2021 pH (U) 8.0 [pH] [facility] Work Phone: Urine sediment bacteria coun t by microscopy (number/high power field)on 08-13-2021 Bacteria LM.HPF (Urine sed) [#/Area] 4 /[HPF] None Seen [facility] Work Phone: Urine specific gravity measu rementon 08-13-2021 Specific gravity (U) [Rel density] 1.010 [facility] Work Phone: Urobilinogen Auto test strip Ql (U)on 08-13-2021 Urobilinogen Ql (U) Normal mg/dl Normal [facility] Work Phone: Culture, urineon 08-12-2021 Bacteria identified Cx Nom (U) Proteus mirabilis [facility] Work Phone: Bacteria identified Cx Nom (U) Vancomycin Resist. E. faecalis [facility] Work Phone: LABORATORYOrdered By: SYSTEM SYSTEM on 07-28-2021 Basophils (Bld) [#/Vol] 0.00 103/mcL Invalid Interpretation Code 0.00 - 0.27 10^3/mcL AH Remisol SS Basophils/100 WBC (Bld) 0.2 % Invalid Interpretation Code 0.0 - 2.5 % AH Remisol SS Eosinophils (Bld) [#/Vol] 0.10 103/mcL Invalid Interpretation Code 0.00 - 0.65 10^3/mcL AH Remisol SS Eosinophils/100 WBC (Bld) 0.9 % [...] Invalid Interpretation Code 2.25 - 8.10 10^3/mcL Remisol SS Neutrophils/100 WBC (Bld) 66.4 % Invalid Interpretation Code 50.0 - 75.0 % AH Remisol SS Platelet mean volume (Bld) [Entitic vol] 7.5 fL Invalid Interpretation Code 6.6 - 10.5 fL Remisol SS Platelets (Bld) [#/Vol] 320 103/mcL Invalid Interpretation Code 150 - 450 10^3/mcL Remisol SS RBC (Bld) [#/Vol] 4.80 106/mcL Invalid Interpretation Code 4.10 - 5.30 10^6/mcL Remisol SS WBC (Bld) [#/Vol] 12.90 103/mcL Invalid Interpretation Code 4.50 - 10.80 10^3/mcL Remisol SS Basophil percentageon 2021 Chloride [Moles/Vol] 107 mmol/L 98-107 [facility] Work Phone: Glucose [Mass/Vol] 87 mg/dL 74-106 [facility] Work Phone: Comment on above: Please note revised GLUCOSE reference range effective 2017. Potassium [Moles/Vol] 4.1 mmol/L 3.5-5.1 [facility] Work Phone: Sodium [Moles/Vol] 141 mmol/L 136-145 [facility] Work Phone: WBC (Bld) [#/Vol] 8.3 10*3/uL 4.4-11.0 [facility] Work Phone: Blood erythrocytes count (nu mber/volume)on 06-16-2021 RBC (Bld) [#/Vol] 4.22 10*6/uL 4.2-5.4 [facility] Work [facility]: Blood hemoglobin measurement (mass/volume)on 06-16-2021 Hemoglobin (Bld) [Mass/Vol] 11.2 g/dL 12.0-15.0 [facility] Work Phone: Blood platelet mean volumeon 06-16-2021 Platelet mean volume (Bld) [Entitic vol] 9.3 fL 6.2-12.0 [facility] Work Phone: [phone] Determination of erythrocyte mean corpuscular volume (MCV)on 06-16-2021 MCV (RBC) [Entitic vol] 88.6 fL 81-99 [facility] Work Phone: [phone] Hematocrit Auto (Bld) [Volum e fraction]on 06-16-2021 Hematocrit (Bld) [Volume fraction] 37.4 % 37-47 [facility] Work Phone: [phone] Laboratory - Chemistry and C hemistry - challengeon 06-16-2021 CO2 [Moles/Vol] 30.0 mmol/L 21.0-32.0 [facility] Work Phone: [phone] Urea nitrogen/Creatinine [Mass ratio] 21.1 mg/mg 10-20 [facility] Work Phone: [phone] Laboratory - Hematology and Cell countson 06-16-2021 Erythrocyte distribution width (RBC) [Entitic vol] 48.0 fL 35.1-43.9 [facility] Work Phone: [phone] Erythrocyte distribution width (RBC) [Ratio] 15.1 % 11.6-14.6 [facility] Work Phone: [phone] MCH (RBC) [Entitic mass] 26.5 pg 27.0-32.0 [facility] Work Phone: [phone] MCHC Auto (RBC) [Mass/Vol]on 06-16-2021 MCHC (RBC) [Mass/Vol] 29.9 g/dL 32-36 [facility] Work Phone: [phone] No Panel Informationon 06-16 Estimated GFR (MDRD) Amer 181 mL/min >60 [facility] Work Phone: [phone] Comment on above: GFR Calc Estimated GFR (MDRD) Non-Af Amer 149 mL/min >60 [facility] Work Phone: [phone] Comment on above: Non- GFR Calc Platelets bldon 06-16-2021 Platelets (Bld) [#/Vol] 353 10*3/uL 150-450 [facility] Work Phone: Serum or plasma calcium miguel angel urement (mass/volume)on 06-16-2021 Calcium [Mass/Vol] 8.7 mg/dL 8.5-10.1 [facility] Work Phone: Serum or plasma creatinine m easurement (mass/volume)on 06-16-2021 Creatinine [Mass/Vol] 0.47 mg/dL 0.55-1.02 [facility] Work Phone: Comment on above: The validity of the calculated GFR & GFRAA in patients over 70 years has not been determined. Clinical correlation is essential. Serum or plasma urea nitroge n measurement (mass/volume)on 06-16-2021 Urea nitrogen [Mass/Vol] 10 mg/dL 7-18 [facility] Work Phone: Thin prep Papanicolaou smear with manual screeningon 06-16-2021 Thin prep Papanicolaou smear with manual screening 4 5-15 [facility] Work Phone: Absolute lymphocyte counton 05-27-2021 Lymphocytes Auto (Unsp spec) [#/Vol] 2.72 10*3/uL 0.83-4.51 [facility] Work Phone: Basophil percentageon 2020 Basophil percentage >100 SEEN /hpf [facility] Work Phone: Chloride [Moles/Vol] 102 mmol/L 98-107 [facility] Work Phone: Eosinophils/100 WBC (Bld) 2.3 % 0-5 [facility] Work Phone: Glucose [Mass/Vol] 125 mg/dL 74-106 [facility] Work Phone: Comment on above: Fasting Glucose resu lt from 100 to 125 mg/dL suggests IMPAIRED HOMEOSTASIS per A.D.A. criteria.Please note revised GLUCOSE reference range effective 2017. Neutrophils (Bld) [#/Vol] 6.7 10*3/uL 2.0-7.7 [facility] Work Phone: Potassium [Moles/Vol] 3.3 mmol/L 3.5-5.1 [facility] Work Phone: [phone] Sodium [Moles/Vol] 139 mmol/L 136-145 [facility] Work Phone: [phone] WBC (Bld) [#/Vol] 10.5 10*3/uL 4.4-11.0 [facility] Work Phone: [phone] Bilirubin Test strip Ql (U)o n 05-27-2021 Bilirubin Ql (U) 3 mg/dL Negative [facility] Work Phone: [phone] Comment on above: COLOR OF URINE MAY A FFECT DIPSTICK RESULTS. Blood erythrocytes count (nu mber/volume)on 05-27-2021 RBC (Bld) [#/Vol] 4.95 10*6/uL 4.2-5.4 [facility] Work Phone: [phone] Blood hemoglobin measurement (mass/volume)on 05-27-2021 Hemoglobin (Bld) [Mass/Vol] 13.2 g/dL 12.0-15.0 [facility] Work Phone: [phone] Blood lymphocytes/100 leukoc yteson 05-27-2021 Lymphocytes/100 WBC (Bld) 26.0 % 19-41 [facility] Work Phone: [phone] Blood monocytes/100 leukocyt eson 05-27-2021 Monocytes/100 WBC (Bld) 6.7 % 0-10 [facility] Work Phone: [phone] Blood platelet mean volumeon 05-27-2021 Platelet mean volume (Bld) [Entitic vol] 9.5 fL 6.2-12.0 [facility] Work Phone: [phone] Culture, urineon 05-27-2021 Bacteria identified Cx Nom (U) Enterococcus faecalis [facility] Work Phone: [phone] Determination of erythrocyte mean corpuscular volume (MCV)on 05-27-2021 MCV (RBC) [Entitic vol] 87.5 fL 81-99 [facility] Work Phone: [phone] Hematocrit Auto (Bld) [Volum e fraction]on 05-27-2021 Hematocrit (Bld) [Volume fraction] 43.3 % 37-47 [facility] Work Phone: [phone] Ketones Test strip Ql (U)on 05-27-2021 Ketones Ql (U) 5 mg/dl Negative [facility] Work Phone: [phone] Laboratory - Chemistry and C hemistry - challengeon 05-27-2021 CO2 [Moles/Vol] 26.0 mmol/L 21.0-32.0 [facility] Work Phone: [phone] Urea nitrogen/Creatinine [Mass ratio] 31.3 mg/mg 10-20 [facility] Work Phone: [phone] Laboratory - Hematology and Cell countson 05-27-2021 Basophils/100 WBC (Unsp spec) 0.5 % 0-1 [facility] Work Phone: [phone] Erythrocyte distribution width (RBC) [Entitic vol] 47.5 fL 35.1-43.9 [facility] Work Phone: [phone] Erythrocyte distribution width (RBC) [Ratio] 14.7 % 11.6-14.6 [facility] Work Phone: [phone] Immature granulocytes/100 WBC (Bld) 0.300 % 0.0-0.9 [facility] Work Phone: [phone] Comment on above: IG% - Immature Granu locytes (promyelocytes, myelocytes and metamyelocytes) > 1% indicates that a LEFT SHIFT is Present. MCH (RBC) [Entitic mass] 26.7 pg 27.0-32.0 [facility] Work Phone: [phone] Neutrophils/100 WBC (Bld) 64.2 % 47-70 [facility] Work Phone: [phone] Nucleated RBC/100 WBC (Bld) [Ratio] 0 % 0-5 [facility] Work Phone: [phone] MCHC Auto (RBC) [Mass/Vol]on 05-27-2021 MCHC (RBC) [Mass/Vol] 30.5 g/dL 32-36 [facility] Work Phone: Mucus LM Ql (Urine sed)on Mucus Ql (Urine sed) 0 SEEN /hpf [facility] Work Phone: Nitrite Test strip Ql (U)on 05-27-2021 Nitrite Ql (U) Positive Negative [facility] Work Phone: No Panel Informationon 05-27 Estimated Creatinine Clearance Calc 97.19 ml/min [facility] Work Phone: [phone] Estimated GFR (MDRD) Amer 154 mL/min >60 [facility] Work Phone: Comment on above: GFR Calc Estimated GFR (MDRD) Non-Af Amer 128 mL/min >60 [facility] Work Phone: Comment on above: Non- GFR Calc Platelets bldon 05-27-2021 Platelets (Bld) [#/Vol] 388 10*3/uL 150-450 [facility] Work Phone: Protein Test strip Ql (U)on 05-27-2021 Protein Ql (U) 100 mg/dl Negative [facility] Work Phone: Serum or plasma calcium miguel angel urement (mass/volume)on 05-27-2021 Calcium [Mass/Vol] 9.2 mg/dL 8.5-10.1 [facility] Work Phone: Serum or plasma creatinine m easurement (mass/volume)on 05-27-2021 Creatinine [Mass/Vol] 0.54 mg/dL 0.55-1.02 [facility] Work Phone: Comment on above: The validity of the calculated GFR & GFRAA in patients over 70 years has not been determined. Clinical correlation is essential. Serum or plasma urea nitroge n measurement (mass/volume)on 05-27-2021 Urea nitrogen [Mass/Vol] 17 mg/dL 7-18 [facility] Work Phone: Squamous epithelial cells de tection in urine sediment by light microscopyon 05-27-2021 Epithelial cells.squamous LM Ql (Urine sed) 5-10 SEEN /hpf [facility] Work Phone: Thin prep Papanicolaou smear with manual screeningon 05-27-2021 Thin prep Papanicolaou smear with manual screening 11 5-15 [facility] Work Phone: Urine blood detectionon 05-14 RBC Ql (U) 250 /ul Negative [facility] Work Phone: RBC Ql (U) 50-100 SEEN /hpf [facility] Work Phone: Urine clarityon 05-27-2021 Clarity (U) Cloudy Clear [facility] Work Phone: Urine color determinationon 05-27-2021 Color (U) Latonya Yellow [facility] Work Phone: Urine glucose detectionon Glucose Ql (U) Normal mg/dl Normal [facility] Work Phone: Urine leukocyte esterase det ection by dipstickon 05-27-2021 Leukocyte esterase Test strip Ql (U) 500 /ul Negative [facility] Work Phone: Urine pHon 05-27-2021 pH (U) 6.5 [pH] [facility] Work Phone: Urine sediment bacteria coun t by microscopy (number/high power field)on 05-27-2021 Bacteria LM.HPF (Urine sed) [#/Area] 2 /[HPF] None Seen [facility] Work Phone: Urine specific gravity measu rementon 05-27-2021 Specific gravity (U) [Rel density] 1.015 [facility] Work Phone: Urobilinogen Auto test strip Ql (U)on 05-27-2021 Urobilinogen Ql (U) 8 mg/dl Normal [facility] Work Phone: Basophil percentageon 2020 Basophil percentage 50-100 SEEN /hpf [facility] Work Phone: Bilirubin Test strip Ql (U)o n 05-26-2021 Bilirubin Ql (U) 6 mg/dL Negative [facility] Work Phone: Comment on above: COLOR OF URINE MAY A FFECT DIPSTICK RESULTS. Culture, urineon 05-26-2021 Bacteria identified Cx Nom (U) Enterococcus faecalis [facility] Work Phone: Ketones Test strip Ql (U)on 05-26-2021 Ketones Ql (U) Negative Negative [facility] Work Phone: Mucus LM Ql (Urine sed)on Mucus Ql (Urine sed) 0 SEEN /hpf [facility] Work Phone: Nitrite Test strip Ql (U)on 05-26-2021 Nitrite Ql (U) Positive Negative [facility] Work Phone: Protein Test strip Ql (U)on 05-26-2021 Protein Ql (U) 100 mg/dl Negative [facility] Work Phone: Squamous epithelial cells de tection in urine sediment by light microscopyon 05-26-2021 Epithelial cells.squamous LM Ql (Urine sed) 0-5 SEEN /hpf [facility] Work Phone: Urine blood detectionon 05-14 RBC Ql (U) 250 /ul Negative [facility] Work Phone: RBC Ql (U) 5-10 SEEN /hpf [facility] Work Phone: Urine clarityon 05-26-2021 Clarity (U) Sl. Cloudy Clear [facility] Work Phone: Urine color determinationon 05-26-2021 Color (U) Yellow Yellow [facility] Work Phone: Urine glucose detectionon Glucose Ql (U) Normal mg/dl Normal [facility] Work Phone: Urine leukocyte esterase det ection by dipstickon 05-26-2021 Leukocyte esterase Test strip Ql (U) 500 /ul Negative [facility] Work Phone: Urine pHon 05-26-2021 pH (U) 7.0 [pH] [facility] Work Phone: Urine sediment bacteria coun t by microscopy (number/high power field)on 05-26-2021 Bacteria LM.HPF (Urine sed) [#/Area] 1 /[HPF] None Seen [facility] Work Phone: Urine specific gravity measu rementon 05-26-2021 Specific gravity (U) [Rel density] 1.010 [facility] Work Phone: Urobilinogen Auto test strip Ql (U)on 05-26-2021 Urobilinogen Ql (U) 12 mg/dl Normal [facility] Work Phone: Culture, urine Bacteria identified Cx Nom (U) Proteus mirabilis [facility] Work Phone: Bacteria identified Cx Nom (U) Morganella morganii sp chellyi [facility] Work Phone: Influenza virus A and B and SARS-CoV-2 (COVID-19) Ag panel - Upper respiratory specim SARS-CoV-2 (COVID-19) RNA NBA+probe Ql (Resp) [facility] Work Phone: Vital Signs Date Time Vital Sign Value Performing Clinician Faci lity 03-02-2025 13:33-0400 Body temperature 97.1 [degF] Dr. Lavon Vicente MD Work Phone: [facility] 03-02-2025 13:33-0400 Diastolic blood pressure 99 mm[Hg] Dr. Lavon Vicente MD Work Phone: [facility] 03-02-2025 13:33-0400 Heart rate 86 /min Dr. Lavon Vicente MD Work Phone: [facility] 03-02-2025 13:33-0400 Inhaled oxygen flow rate 4 L/min Dr. Lavon Vicente MD Work Phone: [facility] 03-02-2025 13:33-0400 Respiratory rate 16 /min Dr. Lavon Vicente MD Work Phone: [facility] 03-02-2025 13:33-0400 SaO2% (BldA) [Mass fraction] 99 % Dr. Lavon Vicente MD Work Phone: [phone] [place] [address] 03-02-2025 13:33-0400 Systolic blood pressure 127 mm[Hg] Dr. Lavon Vicente MD Work Phone: [phone] [place] [address] 03-02-2025 10:10-0400 Body height 154.[address] Lavon Vicente MD Work Phone: [phone] [place] [address] 03-02-2025 10:10-0400 Body mass index (BMI) [Ratio] 49.1 kg/m2 Dr. Lavon Vicente MD Work Phone: [phone])246-577433 [place] [address] 03-02-2025 10:10-0400 Body weight 117.[address] Lavon Vicente MD Work Phone: [phone])[phone] [place] [address] 07-03-2024 13:03-0500 Body temperature 97.5 [degF] Dr. Lavon Vicente MD Work Phone: [phone])[phone] [place] [address] 07-03-2024 13:03-0500 Diastolic blood pressure 77 mm[Hg] Dr. Lavon Vicente MD Work Phone: [phone])945-494733 [place] [address] 07-03-2024 13:03-0500 Heart rate 93 /min Dr. Lavon Vicente MD Work Phone: 4(711)469-293233 [place] [address] 07-03-2024 13:03-0500 Inhaled oxygen flow rate 4 L/min Dr. Lavon Vicente MD Work Phone: 6([phone])993-361633 [place] [address] 07-03-2024 13:03-0500 Respiratory rate 20 /min Dr. Lavon Vicente MD Work Phone: [phone] [place] [address] 07-03-2024 13:03-0500 SaO2% (BldA) [Mass fraction] 96 % Dr. Lavon Vicente MD Work Phone: [phone])[phone] [place] [address] 07-03-2024 13:03-0500 Systolic blood pressure 103 mm[Hg] Dr. Lavon Vicente MD Work Phone: [phone])237-872333 [place] [address] 07-03-2024 11:20-0500 Body height 154.[address] Lavon Vicente MD Work Phone: [facility] 07-03-2024 11:20-0500 Body mass index (BMI) [Ratio] 47.2 kg/m2 Dr. Lavon Vicente MD Work Phone: [facility] 07-03-2024 11:20-0500 Body weight 113.[address] Lavon Vicente MD Work Phone: [facility] 03-01-2024 15:11-0400 Body temperature 98.24 [degF] DR CHERIE RENEE MD [facility] 03-01-2024 15:11-0400 Diastolic Blood Pressure Non-Invasive 91 mm[Hg] DR CHERIE RENEE MD [facility] 03-01-2024 15:11-0400 Heart rate 97 /min DR CHERIE RENEE MD [facility] 03-01-2024 15:11-0400 Respiratory rate 18 /min DR CHERIE RENEE MD [facility] 03-01-2024 15:11-0400 Systolic Blood Pressure Non-Invasive 135 mm[Hg] DR CHERIE RENEE MD [facility] 03-01-2024 13:40-0400 Body temperature 97.52 [degF] DR CHERIE RENEE MD [facility] 03-01-2024 13:40-0400 Diastolic Blood Pressure Non-Invasive 96 mm[Hg] DR CHERIE RENEE MD [facility] 03-01-2024 13:40-0400 Heart rate 75 /min DR CHERIE RENEE MD [facility] 03-01-2024 13:40-0400 Respiratory rate 16 /min DR CHERIE RENEE MD [facility] 03-01-2024 13:40-0400 Systolic Blood Pressure Non-Invasive 133 mm[Hg] DR CHERIE RENEE MD [facility] 03-01-2024 13:13-0400 Body temperature 98.42 [degF] DR CHERIE RENEE MD [facility] 03-01-2024 13:13-0400 Diastolic Blood Pressure Non-Invasive 80 mm[Hg] DR CHERIE RENEE MD [facility] 03-01-2024 13:13-0400 Heart rate 78 /min DR CHERIE RENEE MD [facility] 03-01-2024 13:13-0400 Mean blood pressure 89 mm[Hg] DR CHERIE RENEE MD [facility] 03-01-2024 13:13-0400 Respiratory rate 16 /min DR CHERIE RENEE MD [facility] 03-01-2024 13:13-0400 Systolic Blood Pressure Non-Invasive 118 mm[Hg] DR CHERIE RENEE MD [facility] 03-01-2024 12:58-0400 Mean blood pressure 102 mm[Hg] DR CHERIE RENEE MD [facility] 03-01-2024 12:43-0400 Mean blood pressure 103 mm[Hg] DR CHERIE RENEE MD [facility] 03-01-2024 12:20-0400 Respiratory Rate - Anes 11 br/min DR CHERIE RENEE MD [facility] 03-01-2024 12:15-0400 Body temperature 98.42 [degF] DR CHERIE RENEE MD [facility] 03-01-2024 12:15-0400 Respiratory Rate - Anes 10 br/min DR CHERIE RENEE MD [facility] 03-01-2024 12:10-0400 Body temperature 98.4 [degF] DR CHERIE RENEE MD [facility] 03-01-2024 12:10-0400 Respiratory Rate - Anes 10 br/min DR CHERIE RENEE MD [facility] 03-01-2024 12:05-0400 Body temperature 98.29 [degF] DR CHERIE RENEE MD [facility] 03-01-2024 07:48-0400 Body height 154.[address] CHERIE RENEE MD [facility] 03-01-2024 07:48-0400 Body weight 113.[address] CHERIE RENEE MD [facility] 03-01-2024 07:48-0400 Heart rate 84 /min DR CHERIE RENEE MD [facility] 07-08-2023 05:21-0500 Body temperature 97.6 [degF] Dr. Lavon Vicente Work Phone: [facility] 07-08-2023 05:21-0500 Diastolic blood pressure 79 mm[Hg] Dr. Lavon Vicente Work Phone: [facility] 07-08-2023 05:21-0500 Heart rate 81 /min Dr. Lavon Vicente Work Phone: [facility] 07-08-2023 05:21-0500 Respiratory rate 16 /min Dr. Lavon Vicente Work Phone: [facility] 07-08-2023 05:21-0500 SaO2% (BldA) [Mass fraction] 98 % Dr. Lavon Vicente Work Phone: [facility] 07-08-2023 05:21-0500 Systolic blood pressure 134 mm[Hg] Dr. Lavon Vicente Work Phone: [facility] 07-08-2023 04:19-0500 Body mass index (BMI) [Ratio] 41.1 kg/m2 Dr. Lavon Vicente Work Phone: [facility] 07-08-2023 04:19-0500 Body weight 108.[address] Lavon Vicente Work Phone: [facility] 07-08-2023 00:25-0500 Inhaled oxygen flow rate 3 L/min Dr. Lavon Vicente Work Phone: [facility] 07-06-2023 14:28-0500 Body height 162.[address] Lavon Vicente Work Phone: [facility] 07-02-2023 23:55-0500 Body temperature 98.1 [degF] [facility] 07-02-2023 23:55-0500 Diastolic blood pressure 96 mm[Hg] [facility] 07-02-2023 23:55-0500 Heart rate 118 /min [facility] 07-02-2023 23:55-0500 Inhaled oxygen flow rate 2 L/min [facility] 07-02-2023 23:55-0500 Respiratory rate 23 /min [facility] 07-02-2023 23:55-0500 SaO2% (BldA) [Mass fraction] 94 % [facility] 07-02-2023 23:55-0500 Systolic blood pressure 167 mm[Hg] [facility] 07-02-2023 22:22-0500 Body height 162.56 cm [facility] 07-02-2023 22:22-0500 Body mass index (BMI) [Ratio] 42.7 kg/m2 [facility] 07-02-2023 22:22-0500 Body weight 112.9 kg [facility] 03-17-2023 14:50-0400 Diastolic blood pressure 43 mm[Hg] [facility] 03-17-2023 14:50-0400 Heart rate 90 /min [facility] 03-17-2023 14:50-0400 Inhaled oxygen flow rate 4 L/min [facility] 03-17-2023 14:50-0400 Respiratory rate 16 /min [facility] 03-17-2023 14:50-0400 SaO2% (BldA) [Mass fraction] 94 % [facility] 03-17-2023 14:50-0400 Systolic blood pressure 83 mm[Hg] [facility] 03-17-2023 14:45-0400 Body temperature 98.2 [degF] [facility] 03-17-2023 12:28-0400 Body mass index (BMI) [Ratio] 44.9 kg/m2 [facility] 03-17-2023 12:28-0400 Body weight 111.58 kg [facility] 01-26-2023 23:42-0400 Diastolic blood pressure 77 mm[Hg] Dr. Lavon Vicente Work Phone: [facility] 01-26-2023 23:42-0400 Heart rate 88 /min Dr. Lavon Vicente Work Phone: [facility] 01-26-2023 23:42-0400 Respiratory rate 18 /min Dr. Lavon Vicente Work Phone: [facility] 01-26-2023 23:42-0400 SaO2% (BldA) [Mass fraction] 93 % Dr. Lavon Vicente Work Phone: [facility] 01-26-2023 23:42-0400 Systolic blood pressure 108 mm[Hg] Dr. Lavon Vicente Work Phone: [facility] 01-26-2023 22:05-0400 Body temperature 98 [degF] Dr. Lavon Vicente Work Phone: [facility] 01-26-2023 22:05-0400 Inhaled oxygen flow rate 4 L/min Dr. Lavon Vicente Work Phone: [facility] 01-26-2023 20:06-0400 Body height 154.[address] Lavon Vicente Work Phone: [facility] 01-26-2023 20:06-0400 Body mass index (BMI) [Ratio] 46.9 kg/m2 Dr. Lavon Vicente Work Phone: [facility] 01-26-2023 20:06-0400 Body weight 112.[address] Lavon Vicente Work Phone: [facility] 11-16-2022 14:40-0400 Body temperature 98.5 [degF] Dr. Lavon Vicente Work Phone: [facility] 11-16-2022 14:40-0400 Diastolic blood pressure 69 mm[Hg] Dr. Lavon Vicente Work Phone: [facility] 11-16-2022 14:40-0400 Heart rate 100 /min Dr. Lavon Vicente Work Phone: [facility] 11-16-2022 14:40-0400 Inhaled oxygen flow rate 1 L/min Dr. Lavon Vicente Work Phone: [facility] 11-16-2022 14:40-0400 Respiratory rate 18 /min Dr. Lavon Vicente Work Phone: [facility] 11-16-2022 14:40-0400 SaO2% (BldA) [Mass fraction] 97 % Dr. Lavon Vicente Work Phone: [facility] 11-16-2022 14:40-0400 Systolic blood pressure 113 mm[Hg] Dr. Lavon Vicente Work Phone: [facility] 11-15-2022 10:27-0400 Body height 154.[address] Lavon Vicente Work Phone: [facility] 11-15-2022 10:27-0400 Body weight 110.[address] Lavon Vicente Work Phone: [facility] 11-15-2022 00:51-0400 Body mass index (BMI) [Ratio] 46.1 kg/m2 Dr. Lavon Vicente Work Phone: [facility] 11-14-2022 23:48-0400 Body temperature 99.1 [degF] Dr. Lavon Vicente Work Phone: [facility] 11-14-2022 23:48-0400 Diastolic blood pressure 91 mm[Hg] Dr. Lavon Vicente Work Phone: [facility] 11-14-2022 23:48-0400 Heart rate 97 /min Dr. Lavon Vicente Work Phone: [facility] 11-14-2022 23:48-0400 Inhaled oxygen flow rate 4 L/min Dr. Lavon Vicente Work Phone: [facility] 11-14-2022 23:48-0400 Respiratory rate 20 /min Dr. Lavon Vicente Work Phone: [facility] 11-14-2022 23:48-0400 SaO2% (BldA) [Mass fraction] 97 % Dr. Lavon Vicente Work Phone: [facility] 11-14-2022 23:48-0400 Systolic blood pressure 137 mm[Hg] Dr. Lavon Vicente Work Phone: [facility] 11-14-2022 19:40-0400 Body height 154.[address] Lavon Vicente Work Phone: [facility] 11-14-2022 19:40-0400 Body mass index (BMI) [Ratio] 37.1 kg/m2 Dr. Lavon Vicente Work Phone: [facility] 11-14-2022 19:40-0400 Body weight 89.[address] Lavon Vicente Work Phone: [facility] 11-09-2022 19:16-0400 Heart rate 79 /min Dr. Lavon Vicente Work Phone: [facility] 11-09-2022 19:16-0400 Respiratory rate 16 /min Dr. Lavon Vicente Work Phone: [facility] 11-09-2022 18:49-0400 Diastolic blood pressure 99 mm[Hg] Dr. Lavon Vicente Work Phone: [facility] 11-09-2022 18:49-0400 SaO2% (BldA) [Mass fraction] 97 % Dr. Lavon Vicente Work Phone: [facility] 11-09-2022 18:49-0400 Systolic blood pressure 149 mm[Hg] Dr. Lavon Vicente Work Phone: [facility] 11-09-2022 17:13-0400 Body temperature 97.5 [degF] Dr. Lavon Vicente Work Phone: [facility] 11-09-2022 14:41-0400 Body height 154.[address] Lavon Vicente Work Phone: [facility] 11-09-2022 14:41-0400 Body mass index (BMI) [Ratio] 48.1 kg/m2 Dr. Lavon Vicente Work Phone: [facility] 11-09-2022 14:41-0400 Body weight 115.[address] Lavon Vicente Work Phone: [facility] 11-06-2022 13:13-0400 Diastolic blood pressure 85 mm[Hg] Dr. Lavon Vicente Work Phone: [facility] 11-06-2022 13:13-0400 Heart rate 76 /min Dr. Lavon Vicente Work Phone: 6(870)806-518615 [place] [address] 11-06-2022 13:13-0400 Inhaled oxygen flow rate 2 L/min Dr. Lavon Vicente Work Phone: [facility] 11-06-2022 13:13-0400 Respiratory rate 18 /min Dr. Lavon Vicente Work Phone: [facility] 11-06-2022 13:13-0400 SaO2% (BldA) [Mass fraction] 99 % Dr. Lavon Vicente Work Phone: [facility] 11-06-2022 13:13-0400 Systolic blood pressure 117 mm[Hg] Dr. Lavon Vicente Work Phone: [facility] 11-06-2022 09:05-0400 Body mass index (BMI) [Ratio] 52.9 kg/m2 Dr. Lavon Vicente Work Phone: [facility] 11-06-2022 09:05-0400 Body temperature 96.8 [degF] Dr. Lavon Vicente Work Phone: [facility] 11-06-2022 09:05-0400 Body weight 127.[address] Lavon Vicente Work Phone: [facility] 10-28-2022 15:20-0400 Body temperature 98 [degF] Dr. Lavon Vicente Work Phone: [facility] 10-28-2022 15:20-0400 Diastolic blood pressure 56 mm[Hg] Dr. Lavon Vicente Work Phone: [facility] 10-28-2022 15:20-0400 Heart rate 86 /min Dr. Lavon Vicente Work Phone: [facility] 10-28-2022 15:20-0400 Inhaled oxygen flow rate 4 L/min Dr. Lavon Vicente Work Phone: [facility] 10-28-2022 15:20-0400 Respiratory rate 16 /min Dr. Lavon Vicente Work Phone: [facility] 10-28-2022 15:20-0400 SaO2% (BldA) [Mass fraction] 96 % Dr. Lavon Vicente Work Phone: [facility] 10-28-2022 15:20-0400 Systolic blood pressure 86 mm[Hg] Dr. Lavon Vicente Work Phone: [facility] 10-28-2022 13:56-0400 Body height 154.[address] Lavon Vicente Work Phone: [facility] 10-28-2022 13:56-0400 Body mass index (BMI) [Ratio] 49.7 kg/m2 Dr. Lavon Vicente Work Phone: [facility] 10-28-2022 13:56-0400 Body weight 119.[address] Lavon Vicente Work Phone: [facility] 10-06-2022 11:29-0400 Body height 160 cm Rosa Maria Martinez PA-C Work Phone: [facility] 10-06-2022 11:29-0400 Body temperature 97 [degF] Rosa Maria Martinez PA-C Work Phone: [facility] 10-06-2022 11:29-0400 Body weight 104.33 kg Rosa Maria Martinez PA-C Work Phone: [facility] 10-06-2022 11:29-0400 Diastolic blood pressure 70 mm[Hg] Rosa Maria Martinez PA-C Work Phone: [facility] 10-06-2022 11:29-0400 Heart rate 86 /min Rosa Maria Martinez PA-C Work Phone: [facility] 10-06-2022 11:29-0400 Respiratory rate 16 /min Rosa Maria Martinez PA-C Work Phone: [facility] 10-06-2022 11:29-0400 SaO2% (BldA) [Mass fraction] 100 % Rosa Maria Martinez PA-C Work Phone: [facility] 10-06-2022 11:29-0400 Systolic blood pressure 110 mm[Hg] Rosa Maria Martinez PA-C Work Phone: [facility] 09-14-2022 15:00-0400 Inhaled oxygen flow rate 2 L/min Dr. Lavon Vicente Work Phone: [facility] 09-14-2022 14:07-0400 Body temperature 97.7 [degF] Dr. Lavon Vicente Work Phone: [facility] 09-14-2022 14:07-0400 Diastolic blood pressure 64 mm[Hg] Dr. Lavon Vicente Work Phone: [facility] 09-14-2022 14:07-0400 Heart rate 97 /min Dr. Lavon Vicente Work Phone: [facility] 09-14-2022 14:07-0400 Respiratory rate 20 /min Dr. Lavon Vicente Work Phone: [facility] 09-14-2022 14:07-0400 SaO2% (BldA) [Mass fraction] 97 % Dr. Lavon Vicente Work Phone: [facility] 09-14-2022 14:07-0400 Systolic blood pressure 110 mm[Hg] Dr. Lavon Vicente Work Phone: [facility] 09-14-2022 06:00-0400 Body mass index (BMI) [Ratio] 50.7 kg/m2 Dr. Lavon Vicente Work Phone: [facility] 09-14-2022 06:00-0400 Body weight 121.[address] Lavon Vicente Work Phone: [facility] 09-12-2022 16:22-0400 Body height 154.[address] Lavon Vicente Work Phone: [facility] 09-12-2022 15:23-0400 Body temperature 98 [degF] Dr. Lavon Vicente Work Phone: 8(842)[phone] [place] [address] 09-12-2022 15:23-0400 Diastolic blood pressure 84 mm[Hg] Dr. Lavon Vicente Work Phone: 0(397)116-331733 [place] [address] 09-12-2022 15:23-0400 Heart rate 102 /min Dr. Lavon Vicente Work Phone: 5(875)[phone] [place] [address] 09-12-2022 15:23-0400 Inhaled oxygen flow rate 6 L/min Dr. Lavon Vicente Work Phone: 1(216)701-615515 [place] [address] 09-12-2022 15:23-0400 Respiratory rate 18 /min Dr. Lavon Vicente Work Phone: 2(461)207-453815 [place] [address] 09-12-2022 15:23-0400 SaO2% (BldA) [Mass fraction] 95 % Dr. Lavon Vicente Work Phone: [facility] 09-12-2022 15:23-0400 Systolic blood pressure 127 mm[Hg] Dr. Lavon Vicente Work Phone: 9(265)256-220915 [place] [address] 09-12-2022 09:06-0400 Body height 154.[address] Lavon Vicente Work Phone: [facility] 09-12-2022 09:06-0400 Body mass index (BMI) [Ratio] 50.5 kg/m2 Dr. Lavon Vicente Work Phone: [facility] 09-12-2022 09:06-0400 Body weight 121.[address] Lavon Vicente Work Phone: [facility] 07-24-2022 22:33-0500 Diastolic blood pressure 54 mm[Hg] Dr. Lavon Vicente Work Phone: [facility] 07-24-2022 22:33-0500 SaO2% (BldA) [Mass fraction] 93 % Dr. Lavon Vicente Work Phone: [facility] 07-24-2022 22:33-0500 Systolic blood pressure 104 mm[Hg] Dr. Lavon Vicente Work Phone: [facility] 07-24-2022 22:11-0500 Heart rate 101 /min Dr. Lavon Vicente Work Phone: [facility] 07-24-2022 22:11-0500 Respiratory rate 20 /min Dr. Lavon Vicente Work Phone: [facility] 07-24-2022 21:57-0500 Body temperature 98 [degF] Dr. Lavon Vicente Work Phone: [facility] 07-24-2022 19:11-0500 Body temperature 98.4 [degF] Dr. Lavon Vicente Work Phone: [facility] 07-24-2022 19:11-0500 Diastolic blood pressure 104 mm[Hg] Dr. Lavon Vicente Work Phone: [facility] 07-24-2022 19:11-0500 Heart rate 107 /min Dr. Lavon Vicente Work Phone: [facility] 07-24-2022 19:11-0500 Inhaled oxygen flow rate 4 L/min Dr. Lavon Vicente Work Phone: [facility] 07-24-2022 19:11-0500 Respiratory rate 18 /min Dr. Lavon Vicente Work Phone: [facility] 07-24-2022 19:11-0500 SaO2% (BldA) [Mass fraction] 97 % Dr. Lavon Vicente Work Phone: [facility] 07-24-2022 19:11-0500 Systolic blood pressure 159 mm[Hg] Dr. Lavon Vicente Work Phone: [facility] 07-24-2022 19:06-0500 Body height 152.[address] Lavon Vicente Work Phone: [facility] 07-24-2022 19:06-0500 Body mass index (BMI) [Ratio] 52.3 kg/m2 Dr. Lavon Vicente Work Phone: [facility] 07-24-2022 19:06-0500 Body weight 121.[address] Lavon Vicente Work Phone: [facility] 06-05-2022 09:49-0500 Inhaled oxygen flow rate 4 L/min Dr. Lavon Vicente Work Phone: [facility] 06-05-2022 09:47-0500 Body temperature 98 [degF] Dr. Lavon Vicente Work Phone: [facility] 06-05-2022 09:47-0500 Diastolic blood pressure 69 mm[Hg] Dr. Lavon Vicente Work Phone: [facility] 06-05-2022 09:47-0500 Heart rate 100 /min Dr. Lavon Vicente Work Phone: [facility] 06-05-2022 09:47-0500 Respiratory rate 18 /min Dr. Lavon Vicente Work Phone: [facility] 06-05-2022 09:47-0500 SaO2% (BldA) [Mass fraction] 94 % Dr. Lavon Vicente Work Phone: [facility] 06-05-2022 09:47-0500 Systolic blood pressure 116 mm[Hg] Dr. Lavon Vicente Work Phone: [facility] 06-05-2022 04:34-0500 Body weight 121.[address] Lavon Vicente Work Phone: [facility] 06-03-2022 15:20-0500 Body height 152.[address] Lavon Vicente Work Phone: [facility] Work Phone: 06-03-2022 08:58-0500 Body mass index (BMI) [Ratio] 49.9 kg/m2 Dr. Lavon Vicente Work Phone: [facility] 06-03-2022 07:52-0500 Body temperature 98.3 [degF] [facility] Work Phone: 06-03-2022 07:52-0500 Diastolic blood pressure 108 mm[Hg] [facility] Work Phone: 06-03-2022 07:52-0500 Heart rate 63 /min [facility] Work Phone: 06-03-2022 07:52-0500 Inhaled oxygen flow rate 2 L/min [facility] Work Phone: 06-03-2022 07:52-0500 Respiratory rate 20 /min [facility] Work Phone: 06-03-2022 07:52-0500 SaO2% (BldA) [Mass fraction] 94 % [facility] Work Phone: 06-03-2022 07:52-0500 Systolic blood pressure 129 mm[Hg] [facility] Work Phone: 06-03-2022 06:00-0500 Body height 160.02 cm [facility] Work Phone: 06-03-2022 06:00-0500 Body mass index (BMI) [Ratio] 44.4 kg/m2 [facility] Work Phone: 06-03-2022 06:00-0500 Body weight 113.9 kg [facility] Work Phone: 01-09-2022 12:11-0400 Body temperature 98.5 [degF] [facility] Work Phone: 01-09-2022 12:11-0400 Diastolic blood pressure 85 mm[Hg] [facility] Work Phone: 01-09-2022 12:11-0400 Heart rate 102 /min [facility] Work Phone: 01-09-2022 12:11-0400 Inhaled oxygen flow rate 2 L/min [facility] Work Phone: 01-09-2022 12:11-0400 Respiratory rate 16 /min [facility] Work Phone: 01-09-2022 12:11-0400 SaO2% (BldA) [Mass fraction] 93 % [facility] Work Phone: 01-09-2022 12:11-0400 Systolic blood pressure 125 mm[Hg] [facility] Work Phone: 01-09-2022 09:51-0400 Body height 154.94 cm [facility] Work Phone: 01-09-2022 09:51-0400 Body mass index (BMI) [Ratio] 45.3 kg/m2 [facility] Work Phone: 01-09-2022 09:51-0400 Body weight 108.86 kg [facility] Work Phone: 09-12-2021 12:00-0400 Body temperature 99.4 [degF] [facility] Work Phone: 09-12-2021 12:00-0400 Diastolic blood pressure 68 mm[Hg] [facility] Work Phone: 09-12-2021 12:00-0400 Heart rate 85 /min [facility] Work Phone: 09-12-2021 12:00-0400 Respiratory rate 16 /min [facility] Work Phone: 09-12-2021 12:00-0400 SaO2% (BldA) [Mass fraction] 92 % [facility] Work Phone: 04-01-2022 12:00-0400 Systolic blood pressure 117 mm[Hg] [facility] Work Phone: 09-12-2021 11:40-0400 Inhaled oxygen flow rate 4 L/min [facility] Work Phone: 09-12-2021 08:27-0400 Body height 154.94 cm [facility] Work Phone: 09-12-2021 08:27-0400 Body mass index (BMI) [Ratio] 43.4 kg/m2 [facility] Work Phone: 09-12-2021 08:27-0400 Body weight 104.32 kg [facility] Work Phone: 07-28-2021 17:53-0500 Body temperature 97.34 [degF] DR MAGDY VOGT MD [facility] 07-28-2021 17:53-0500 Diastolic blood pressure 90 mm[Hg] DR MAGDY VOGT MD [facility] 07-28-2021 17:53-0500 Heart rate 85 /min DR MAGDY VOGT MD [facility] 07-28-2021 17:53-0500 Mean blood pressure 109 mm[Hg] DR MAGDY VOGT MD [facility] 07-28-2021 17:53-0500 Reason For Taking VItal Signs DR MAGDY VOGT MD [facility] 07-28-2021 17:53-0500 Respiratory rate 16 /min DR MAGDY VOGT MD [facility] 07-28-2021 17:53-0500 Systolic blood pressure 146 mm[Hg] DR MAGDY VOGT MD [facility] 07-28-2021 16:09-0500 Body temperature 97.16 [degF] DR MAGDY VOGT MD [facility] 07-28-2021 16:09-0500 Diastolic blood pressure 91 mm[Hg] DR MAGDY VOGT MD [facility] 07-28-2021 16:09-0500 Heart rate 81 /min DR MAGDY VOGT MD [facility] 07-28-2021 16:09-0500 Mean blood pressure 110 mm[Hg] DR MAGDY VOGT MD [facility] 07-28-2021 16:09-0500 Reason For Taking VItal Signs DR MAGDY VOGT MD [facility] 07-28-2021 16:09-0500 Respiratory rate 16 /min DR MAGDY VOGT MD [facility] 07-28-2021 16:09-0500 Systolic blood pressure 148 mm[Hg] DR MAGDY VOGT MD [facility] 07-28-2021 15:56-0500 Body temperature 98.06 [degF] DR MAGDY VOGT MD [facility] 07-28-2021 15:56-0500 Diastolic Blood Pressure NBP [address] MAGDY VOGT MD [facility] 07-28-2021 15:56-0500 Heart rate 85 /min DR MAGDY VOGT MD [facility] 07-28-2021 15:56-0500 Mean blood pressure 101 mm[Hg] DR MAGDY VOGT MD [facility] 07-28-2021 15:56-0500 Respiratory rate 16 /min DR MAGDY VOGT MD [facility] 07-28-2021 15:56-0500 Systolic Blood Pressure NBP [address] MAGDY VOGT MD [facility] 07-28-2021 15:40-0500 Diastolic Blood Pressure NBP [address] MAGDY VOGT MD [facility] 07-28-2021 15:40-0500 Heart rate 87 /min DR MAGDY VOGT MD [facility] 07-28-2021 15:40-0500 Mean blood pressure 108 mm[Hg] DR MAGDY VOGT MD [facility] 07-28-2021 15:40-0500 Systolic Blood Pressure NBP [address] MAGDY VOGT MD [facility] 07-28-2021 15:24-0500 Diastolic Blood Pressure NBP [address] MAGDY VOGT MD [facility] 07-28-2021 15:24-0500 Heart rate 91 /min DR MAGDY VOGT MD [facility] 07-28-2021 15:24-0500 Mean blood pressure 103 mm[Hg] DR MAGDY VOGT MD [facility] 07-28-2021 15:24-0500 Systolic Blood Pressure NBP [address] MAGDY VOGT MD [facility] 07-28-2021 10:28-0500 Body height [address] MAGDY VOGT MD [facility] 07-28-2021 10:28-0500 Diastolic blood pressure 93 mm[Hg] DR MAGDY VOGT MD [facility] 07-28-2021 10:28-0500 Heart rate 79 /min DR MAGDY VOGT MD [facility] 07-28-2021 10:28-0500 Mean blood pressure 113 mm[Hg] DR MAGDY VOGT MD [facility] 07-28-2021 10:28-0500 Systolic blood pressure 153 mm[Hg] DR MAGDY VOGT MD [facility] 07-28-2021 10:23-0500 Body weight 100.[address] MAGDY VOGT MD [facility] 07-21-2021 14:45-0500 Body temperature 97.8 [degF] [facility] Work Phone: 07-21-2021 14:45-0500 Diastolic blood pressure 70 mm[Hg] [facility] Work Phone: 07-21-2021 14:45-0500 Heart rate 78 /min [facility] Work Phone: 07-21-2021 14:45-0500 Respiratory rate 16 /min [facility] Work Phone: 07-21-2021 14:45-0500 SaO2% (BldA) [Mass fraction] 94 % [facility] Work Phone: 07-21-2021 14:45-0500 Systolic blood pressure 105 mm[Hg] [facility] Work Phone: 07-21-2021 13:17-0500 Body mass index (BMI) [Ratio] 41.1 kg/m2 [facility] Work Phone: 07-21-2021 13:17-0500 Body weight 105.23 kg [facility] Work Phone: 05-27-2021 20:43-0500 Diastolic blood pressure 81 mm[Hg] [facility] Work Phone: 05-27-2021 20:43-0500 Heart rate 73 /min [facility] Work Phone: 05-27-2021 20:43-0500 Respiratory rate 18 /min [facility] Work Phone: 05-27-2021 20:43-0500 SaO2% (BldA) [Mass fraction] 92 % [facility] Work Phone: 05-27-2021 20:43-0500 Systolic blood pressure 116 mm[Hg] [facility] Work Phone: 05-27-2021 17:27-0500 Body mass index (BMI) [Ratio] 44.1 kg/m2 [facility] Work Phone: 05-27-2021 17:27-0500 Body temperature 96.8 [degF] [facility] Work Phone: 05-27-2021 17:27-0500 Body weight 105.99 kg [facility] Work Phone: Encounters Encounter Date Encounter Type Care Provider Facility Start: 03-27-2025 ambulatory Lavon Vicente Facility:[facility] [place] Start: 03-22-2025 ambulatory Lavon Vicente Facility:[facility] Start: 03-13-2025 End: 03-13-2025 ambulatory LONI PAGE TYPE PROOF REPRODUCER-AIR TRANSPORTATION PROVIDER Facility:A Start: 03-13-2025 End: 03-13-2025 Patient encounter procedure LONI PAGE TYPE PROOF REPRODUCER-AIR TRANSPORTATION PROVIDER [facility] Start: 03-02-2025 End: 03-02-2025 Admission to same day surgery center Dr. Kenia Hammond [facility] Start: 03-02-2025 End: 03-02-[address] Lavon Vicente MD Work Phone: [facility] Start: 02-27-[address] Kori Sethi MD -[facility] Start: 02-27-2025 End: 02-27-2025 ambulatory Lavon Vicente Facility:[facility] Start: 02-21-[address] Kori Sethi MD [facility] Start: 02-21-2025 End: 02-21-2025 ambulatory [facility] Facility:[facility] Start: 12-26-2024 ambulatory [facility] Facility:[facility] Start: 12-26-[address] Kori Sethi MD -[facility] Start: 12-19-[address] Kori Sethi MD [facility] Start: 12-19-2024 End: 12-19-2024 ambulatory Kori SERRANO Facility:[facility] Start: 12-05-2024 End: 12-05-[address] Lavon Vicente MD Work Phone: -[facility] Start: 12-05-2024 End: 12-05-[address] Kori Sethi MD [facility] Start: 12-05-[address] Kori Sethi MD [facility] Start: 12-05-2024 End: 12-05-2024 ambulatory oKri SERRANO Facility:[facility] Start: 12-04-[address] Kori Sethi MD [facility] Start: 12-04-2024 End: 12-04-2024 ambulatory Kori SERRANO Facility:[facility] Start: 10-06-2024 End: 10-06-[address] Lavon Vicente MD Work Phone: [facility] Work Phone: Start: 10-06-2024 End: 10-06-[address] Kori Sethi MD [facility] Start: 10-06-2024 End: 10-06-2024 ambulatory Kori SERRANO Facility:[facility] Start: 09-06-2024 End: 09-06-[address] Lavon Vicente MD Work Phone: [facility] Work Phone: Start: 09-06-2024 End: 09-06-2024 Departed Referred Lavon Vicente -[facility] Start: 09-06-2024 End: 09-06-2024 ambulatory Lavon SERRANO Facility:[facility] Start: 07-25-2024 ambulatory Lavon Vicente Facility:[facility] Start: 07-25-[address] Kori Sethi MD [facility] Start: 07-14-2024 ambulatory Kori SERRANO Facili ty:[facility] Start: 07-14-[address] Kori Sethi MD -[facility] Start: 07-07-2024 End: 07-07-[address] Kori Sethi MD [facility] Start: 07-07-2024 End: 07-07-2024 ambulatory Kori SERRANO Facility:[facility] Start: 07-05-2024 ambulatory Lavon Vicente Facility:[facility] Start: 07-05-[address] Kori Sethi MD [facility] Start: 07-03-2024 End: 07-03-2024 Admission to same day surgery center Dr. Kenia Hammond MD [facility] Start: 07-03-2024 End: 07-03-2024 ambulatory Lavon Vicente Facility:[facility] Start: 07-03-2024 End: 07-03-[address] Kori Sethi MD -[facility] Start: 07-03-2024 End: 07-03-2024 ambulatory Lavon Vicente Facility:[facility] Start: 06-12-2024 End: 06-12-[address] 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 Unknown [id number] 2.16.840.1.301158.3.579.2. 462 Unknown [id number] 2.16.840.1.633493.3.579.2. 462 Unknown [id number] 2.16.840.1.225930.3.579.2. 462 Unknown [id number] 2.16.840.1.894302.3.579.2. 462 Social History Date Type Detail Facility Start: 04-03-2019 End: 02-28-2025 Never smoked tobacco (finding) [facility] Start: 1975 Sex Assigned At Female A [facility] Start: 05-27-2021 End: 07-02-2023 Tobacco smoking status NHIS Unknown if ever smoked [facility] Start: 01-30-2021 None [facility] Start: 08-28-2018 Skilled Nursing [facility] Start: 08-08-2019 Non-smoker [facility] Start: 04-05-2019 Tobacco use and exposure Smokeless tobacco non-user [facility] Start: 10-06-2022 Alcohol intake 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 Sexual Orientation [facility] NEGATED: Highlighted row [facility] Goals Date Patient Goal Desired Activity /State Functional Status Date Assessment Result Facility 03-01-2024 Functional Status Awake, Other: up to wheelchair with terra and 3 assist [facility] 03-01-2024 Functional Status [facility] 03-01-2024 Functional Status [facility] 03-01-2024 Functional Status Maintained [facility] 07-08-2023 Functional status Bedrest [facility] Work Phone: 11-16-2022 [facility] Work Phone: 09-14-2022 Functional status Bedrest [facility] Work Phone: 06-05-2022 Functional status Bedrest [facility] Work Phone: Mental Status Date Assessment Result Facility 03-02-2025 Cognitive function Voice/Name [facility] Work Phone: 07-03-2024 Cognitive function [facility]/Name [facility] Work Phone: 03-01-2024 Mental Status Oriented x 4 [facility] 03-01-2024 Mental Status [facility] 03-01-2024 Mental Status Orientation Asse ssment Oriented x 4 [facility] 07-08-2023 Cognitive function Voice/Name [facility] Work Phone: 07-02-2023 Cognitive function Level Of Consciousness Awake [facility] Work Phone: 03-17-2023 Cognitive function Voice/Name [facility] Work Phone: 11-16-2022 Cognitive function Voice/Name [facility] Work Phone: 11-06-2022 Cognitive function Deep Pain [facility] Work Phone: 10-28-2022 Cognitive function Voice/Name [facility] Work Phone: 09-14-2022 Cognitive function Voice/Name [facility] Work Phone: 07-24-2022 Cognitive function Voice/Name [facility] Work Phone: 06-05-2022 Cognitive function Voice/Name [facility] Work Phone: 06-03-2022 Cognitive function Voice/Name [facility] Work Phone: 01-09-2022 Cognitive function Voice/Name [facility] Work Phone: 09-12-2021 Cognitive function Voice/Name [facility] Work Phone: 07-21-2021 Cognitive function Voice/Name [facility] Work Phone: 05-27-2021 Cognitive function Level Of Cons ciousness Awake;Alert;Appropriate;Follow s Commands [facility] Work Phone: Clinical Notes 01-15-2021 to 03-13-2025 Radiology Note Date & Type Note Facility 03-13-2025 Evaluation + Plan note Future Scheduled TestsXR Abdomen AP 03/13/25XR Abdomen AP 09/10/25 [facility] 03-02-2025 Radiology Diagnostic study note [facility] Imaging Services [address] [place] [address] Fluor Guidance for Spine Inj MR#: [id number] Acct: [id number] Name: HENRIK REED Rep #: [id number] : 1975 F 50 From: Jeff Galvez MD PCP: Dr. Lavon Vicente MD Status: REG S DC Study:Fluor Guidance for Spine Inj Date of Ex am: 03/02/25 Exam# [id number] Ordering Dr: Brett Hammond MD PROCEDURE: FLUOR GUIDANCE FOR SPINE INJ 03/02/2025 REASON FOR EXAM: CAUDAL BLOCK TECHNIQUE: Procedure Code: RADSPN Modality: DX Procedure: FLUOR GUIDANCE FOR SPINE INJ. Intraoperative fluoroscopic services provided for caudal block. Radiation dose: 8.8 seconds of fluoroscopy. 7.85 mGy. A single image was submitted. COMPARISON: Prior study dated July 03, 2024. FINDINGS: Intraoperative fluoroscopic services provided for caudal block. RAD/Fluor Guidance for Spine Inj IMPRESSION: Intraoperative fluoroscopic services provided for caudal block. Reading Location: [place] [address] CC: Dr. Kenia Hammond MD; Dr. Lavon Vicente MD ~ Delivery Table Operator: Signed [facility] 03-02-2025 Consult note [facility] 03-02-2025 Consult note [facility] 03-02-2025 Consult note Note Date/Time March 02, 2025 10:25am [facility] Medical Records Department [address] [place] [address] Pre-Anesthesia Evaluation 03/02/25 1024 MR#: [id number] Acct: [id number] Name: HENRIK REED Rep #:[id number] : 1975 50 From: Corey Lauren MD PCP: Dr. Lavon Vicente MD Status:REG S DC Y Race: C Location: [place] [address] ASA Classification* ASA Classification ASA Classification: 3 Assessment & Plan Anesthesia* Anesthesia Assessment Anesthesia Assessment: Discussed sedation and/or anesthesia options, risks, benefits, and alternatives with patient/parents/legal guardian/POA. Questions invited. The patient/parents/legal guardian/POA seems to understand and agrees to proceedwith anesthesia plan. Reviewed the physical assessment, medical history, allergy history and patient home medications list prior to surgery/procedure/anesthetic and documented any changes. Performed airway and anesthesia risk assessments. Anesthesia Type Anesthesia Type: MAC (NO SUX) Anesthesia Focused Assessment* Temperature: 98.2 F Pulse Rate: 75 Blood Pressure: 119/82 Respiratory Rate: 18 Pulse Ox: 100 Oxygen Flow Rate (L/min): 4 Airway Assessment Mouth opens: >3 cm Mallampati Score: II Labs Anesthesia Preop lab: CBC WBC, (4.4-11.0) 9.0 K/mm3 12/19/24, 06:30 RBC, (4.2-5.4) 3.89 M/mm3 L 12/19/24, 06:30 Hgb, (12.0-15.0) 9.7 g/dL L 12/19/24, 06:30 Hct, (37-47) 32.5 % L 12/19/24, 06:30 Plt Count, (150-450) 367 K/mm3 12/19/24, 06:30 CHEMISTRY Potassium, (3.3-5.1) 3.8 mmol/L 12/26/24, 07:15 Sodium, (133-145) 141 mmol/L 12/26/24, 07:15 Magnesium, (1.6-2.6) 2.0 mg/dL 11/15/22, 05:08 BUN, (4-19) 12 mg/dL 12/26/24, 07:15 Creatinine, (0.70-1.20) 0.23 mg/dL L 12/26/24, 07:15 Glucose, (70-99) 103 mg/dL H 12/26/24, 07:15 TSH, (0.300-4.200) 3.120 uIU/mL 02/27/25, 06:05 COAG PT, (11.7-14.9) 14.2 SECONDS 07/02/23, 23:15 Pre-Assessment Diagnosis/Proposed Procedure Planned Operative Procedure(s): BLOCK,CAUDAL Anesthesia History Anesthesia History - beading sawyer: Anesthesia History - beading sawyer Hx Hospitalization No 02/28/25 15:41 Any Problems With Anesthesia No 02/28/25 15:41 Cholinesterase deficiency No 02/28/25 15:41 You/Your Family Experience No 02/28/25 15:41 fever (hyperthermia) with Relationship Recent Exposure to Contagious No 03/02/25 10:10 Disease Does patient have nerve No 02/28/25 15:41 stimulator Patient instructed to have device shut off --Does patient have Pacemaker No 03/02/25 10:10 or ICD? When Was Last Pacemaker Check QUESTION #4 FULL TEXT: You/Your Family Experience fever (hyperthermia) with Anesthesia Last Oral Intake Last Oral intake: Last Oral Intake NPO since 17:00 03/02/25 10:10 Meds taken in AM with sips of Yes 03/02/25 10:10 water? Meds patient instructed to see MAR 03/02/25 10:10 take am of surgery PONV PONV - beading sawyer: PONV - beading sawyer Female Yes 02/28/25 15:41 HX of Motion Sickness No 02/28/25 15:41 HX of N/V After Surgery No 02/28/25 15:41 Non-Smoker Yes 02/28/25 15:41 Duration of Surgery greater No 02/28/25 15:41 than 60 minutes Number of Risk Factors 2 02/28/25 15:41 PONV Score Moderate Risk 02/28/25 15:41 Height & Weight Height & Weight: Anesthesia: Height & Weight Height 5 ft 1 in 03/02/25 10:10 Weight: 117.934 kg 03/02/25 10:10 Body Mass Index (BMI) 49.1 03/02/25 10:10 Respiratory Assessment Respiratory Assessment - beading sawyer: Respiratory Tract Infection Hx - beading sawyer Hx Respiratory Tract Infection No 02/28/25 15:41 STOP Sleep Apnea STOP Sleep Apnea - beading sawyer: STOP Sleep Apnea - beading sawyer Hx Hypertension No 02/28/25 15:41 Hx Sleep Apnea No 02/28/25 15:41 CPAP No 07/03/24 12:45 BIPAP No 07/03/24 12:17 Do you snore loudly (louder No 02/28/25 15:41 than talking or can be heard Do you often feel tired/ Yes 02/28/25 15:41 fatigued/ sleepy during daytime? Has anyone observed you stop No 02/28/25 15:41 breathing during sleep? STOP Results Negative 02/28/25 15:41 QUESTION #5 FULL TEXT : Do you snore loudly (louder than talking or can be heard through closed doors)? 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 Specify any problems Hx of Preganancy in last 3 No 02/28/25 15:41 Months Nurse Filling Out Transfusion DSCHRIBER 02/28/25 15:41 & Questions: Date: 02/28/25 02/28/25 15:41 Time: 15:47 02/28/25 15:41 Patient unable to answer at this time (ie. confused, unrespo /Reproduction History /Reproductive History - beading sawyer: /Reproductive Hx- beading sawyer Hx Now No 02/28/25 15:41 Gestational Age (in weeks): EDC: Hx Hx Para Hx Section SAB No 02/28/25 15:41 Active Medications Active Medications: Current Medications Generic Name Dose Route Start Last Admin Trade Name Freq PRN Reason Stop Dose Admin Lactated Ringer's 1,000 mls @ 15 mls/hr 03/02/25 10:00 03/02/25 10:20 IV 15 mls/hr .Q48H MIRIAM Administration PFSH Medical History Gastric reflux History of stress test Lives in alf On home oxygen therapy History of edema MRSA (methicillin resistant staph aureus) culture positive Seizure Neuromuscular dysfunction of bladder History of Flxxx-Oqvgrqigp-Hxrhb (WPW) syndrome Spinal cord injury (2010) Paraplegia Cocaine abuse Heroin use Chronic headaches Right ischial pressure sore, stage 4 Left femoral shaft fracture Deep vein thrombosis of right lower extremity Hypothyroidism Chronic pain Hx: UTI (urinary tract infection) Depression Suprapubic catheter Quadriparesis Home Medications ?Medication ?Instructions ?Recorded ?Last Taken ?Type levothyroxine 75 mcg tablet 75 mcg PO MOTUWETHFRSA 03/02/25 History hypothyroidism duloxetine 60 mg capsule,delayed 90 mg PO QHS depressi on 08/21/15 07/02/24 History release acetaminophen 325 mg tablet 650 mg PO Q4H PRN PRN Pain or fever 03/01/18 04/21/21 History bisacodyl 10 mg rectal suppository 10 mg NC QHS PRN Co nstipation 03/01/18 04/21/21 History omeprazole 20 mg capsule,delayed 20 mg PO DAILY GERD 0 03/01/18 07/02/24 History release furosemide 40 mg tablet 20 mg PO BREAKFAST edema 03/02/25 History cholecalciferol (vitamin D3) 50 2,000 unit PO DAILY CANO PPLEMENT 08/08/19 07/02/24 History mcg (2,000 unit) capsule polyethylene glycol 3350 17 gram 17 gm PO QHS constipa tion 08/08/19 04/21/21 History oral powder packet docusate sodium 100 mg capsule 200 mg PO BID constipat ion 10/11/20 04/21/21 History (Colace) furosemide 20 mg tablet 20 mg PO QHS edema 04/21/21 07/02/24 History gabapentin 800 mg tablet 1,600 mg PO TID NEUROPATHY 1 06/22/20 03/02/25 History loperamide 2 mg tablet 1 mg PO Q4H PRN Diarrhea Unknown History magnesium hydroxide 400 mg/5 mL 30 ml PO DAILY PRN Con stipation 06/03/22 07/02/24 History oral suspension (Milk of Magnesia) melatonin 5 mg tablet 10 mg PO QHS PRN insomnia 07/02/24 History ondansetron HCl 4 mg tablet 4 mg PO Q4H PRN Nausea Unknown History simethicone 80 mg tablet 80 mg PO DAILY PRN Gastric R eflux 06/03/22 Unknown History benzonatate 100 mg capsule 100 mg PO Q6H PRN 07/02/23 Unknown History buspirone 10 mg tablet 10 mg PO QHS 07/02/23 History cetirizine 10 mg capsule (All Day 10 mg PO QHS allergi es 07/02/23 07/03/24 History Allergy (cetirizine)) diphenhydramine HCl 25 mg tablet 50 mg PO Q8H PRN itch ing 07/02/23 Unknown History (Allergy (diphenhydramine)) linaclotide 145 mcg capsule 145 mcg PO DAILY constipat ion 07/02/23 07/02/24 History (Linzess) paroxetine HCl 10 mg tablet 10 mg PO QHS 07/02/2306/14 History baclofen 20 mg tablet 40 mg PO 4X/DAY 02/28/25 History buprenorphine 20 mcg/hour weekly 1 patch topical QWEEK 02/28/25 Unknown History transdermal patch buspirone 7.5 mg tablet 7.5 mg PO DAILY 02/28/25 Unk nown History carbamide peroxide 6.5 % ear drops 1 drp otic (ear) Q1 2H PRN itching 02/28/25 Unknown History (Debrox) clotrimazole 1 % topical cream 1 applic topical TID Unknown History isosorbide mononitrate 20 mg tablet 20 mg PO QHS 02/28 Unknown History levothyroxine 150 mcg tablet 150 mcg PO CANO 02/28/25 Un known History potassium chloride 10 mEq 10 meq PO QHS 02/28/25 Unkno wn History capsule,extended release potassium chloride 10 mEq 20 meq PO DAILY hypokalemia 02/28/25 Unknown History capsule,extended release sennosides 8.6 mg-docusate sodium 1 tab-cap PO DAILY P RN constipation 02/28/25 Unknown History 50 mg tablet (Senna Plus) tramadol 50 mg tablet 50 mg PO TID 02/28/25 Unknow n History Allergy/AdvReac Type Severity Reaction Status Date / Time apixaban (From Eliquis) Allergy Rash Verified 03/02/25 09:59 coconut oil Allergy cant breath Verified 03/02/25 09:59 mometasone furoate (From Allergy Rash Verified 03/02/25 09:59 Elocon) nitrofurantoin Allergy Unknown Verified 03/02/25 09:59 rivaroxaban (From Xarelto) Allergy Rash Verified 03/02/25 09:59 Sulfa (Sulfonamide Allergy Shortness Verified 03/02/25 09:59 Antibiotics) of breath Penicillins AdvReac NEEDS Verified 03/02/25 09:59 FOLLOW-UP Family History Mother Diabetes Grandfather CAD (coronary artery disease) Colon cancer Grandmother Breast cancer Aunt Ovarian cancer Surgical History History of tracheostomy (2010) Social History Smoking Status: Never smoker Review of Systems (Anesthesia) ROS Narrative System reviewed and no additional complaints, except as documented. 03/02/25 1025 <Electronically signed by Corey Lauren MD > Date _ Corey Lauren MD Cosigner Signature: Date CC: ~ Signed [facility] Work Phone: 1(669) 590-794509-19-2025 Consult note [facility] Medical Records Department [address] [place] [id number] Pre-Anesthesia Evaluation 03/02/25 1024 MR#: [id number] Acct: [id number] Name: HENRIK REED Rep #:[id number] : 1975 50 From: Corey Lauren MD PCP: Dr. Lavon Vicente MD Status:REG S DC Y Race: C Location: [place] [address] ASA Classification* ASA Classification ASA Classification: 3 Assessment & Plan Anesthesia* Anesthesia Assessment Anesthesia Assessment: Discussed sedation and/or anesthesia options, risks, benefits, and alternatives with patient/parents/legal guardian/POA. Questions invited. The patient/parents/legal guardian/POA seems to understand and agrees to proceedwith anesthesia plan. Reviewed the physical assessment, medical history, allergy history and patient home medications list prior to surgery/procedure/anesthetic and documented any changes. Performed airway and anesthesia risk assessments. Anesthesia Type Anesthesia Type: MAC (NO SUX) Anesthesia Focused Assessment* Temperature: 98.2 F Pulse Rate: 75 Blood Pressure: 119/82 Respiratory Rate: 18 Pulse Ox: 100 Oxygen Flow Rate (L/min): 4 Airway Assessment Mouth opens: >3 cm Mallampati Score: II Labs Anesthesia Preop lab: CBC WBC, (4.4-11.0) 9.0 K/mm3 12/19/24, 06:30 RBC, (4.2-5.4) 3.89 M/mm3 L 12/19/24, 06:30 Hgb, (12.0-15.0) 9.7 g/dL L 12/19/24, 06:30 Hct, (37-47) 32.5 % L 12/19/24, 06:30 Plt Count, (150-450) 367 K/mm3 12/19/24, 06:30 CHEMISTRY Potassium, (3.3-5.1) 3.8 mmol/L 12/26/24, 07:15 Sodium, (133-145) 141 mmol/L 12/26/24, 07:15 Magnesium, (1.6-2.6) 2.0 mg/dL 11/15/22, 05:08 BUN, (4-19) 12 mg/dL 12/26/24, 07:15 Creatinine, (0.70-1.20) 0.23 mg/dL L 12/26/24, 07:15 Glucose, (70-99) 103 mg/dL H 12/26/24, 07:15 TSH, (0.300-4.200) 3.120 uIU/mL 02/27/25, 06:05 COAG PT, (11.7-14.9) 14.2 SECONDS 07/02/23, 23:15 Pre-Assessment Diagnosis/Proposed Procedure Planned Operative Procedure(s): BLOCK,CAUDAL Anesthesia History Anesthesia History - beading sawyer: Anesthesia History - beading sawyer Hx Hospitalization No 02/28/25 15:41 Any Problems With Anesthesia No 02/28/25 15:41 Cholinesterase deficiency No 02/28/25 15:41 You/Your Family Experience No 02/28/25 15:41 fever (hyperthermia) with Relationship Recent Exposure to Contagious No 03/02/25 10:10 Disease Does patient have nerve No 02/28/25 15:41 stimulator Patient instructed to have device shut off --Does patient have Pacemaker No 03/02/25 10:10 or ICD? When Was Last Pacemaker Check QUESTION #4 FULL TEXT: You/Your Family Experience fever (hyperthermia) with Anesthesia Last Oral Intake Last Oral intake: Last Oral Intake NPO since 17:00 03/02/25 10:10 Meds taken in AM with sips of Yes 03/02/25 10:10 water? Meds patient instructed to see MAR 03/02/25 10:10 take am of surgery PONV PONV - beading sawyer: PONV - beading sawyer Female Yes 02/28/25 15:41 HX of Motion Sickness No 02/28/25 15:41 HX of N/V After Surgery No 02/28/25 15:41 Non-Smoker Yes 02/28/25 15:41 Duration of Surgery greater No 02/28/25 15:41 than 60 minutes Number of Risk Factors 2 02/28/25 15:41 PONV Score Moderate Risk 02/28/25 15:41 Height & Weight Height & Weight: Anesthesia: Height & Weight Height 5 ft 1 in 03/02/25 10:10 Weight: 117.934 kg 03/02/25 10:10 Body Mass Index (BMI) 49.1 03/02/25 10:10 Respiratory Assessment Respiratory Assessment - beading sawyer: Respiratory Tract Infection Hx - beading sawyer Hx Respiratory Tract Infection No 02/28/25 15:41 STOP Sleep Apnea STOP Sleep Apnea - beading sawyer: STOP Sleep Apnea - beading sawyer Hx Hypertension No 02/28/25 15:41 Hx Sleep Apnea No 02/28/25 15:41 CPAP No 07/03/24 12:45 BIPAP No 07/03/24 12:17 Do you snore loudly (louder No 02/28/25 15:41 than talking or can be heard Do you often feel tired/ Yes 02/28/25 15:41 fatigued/ sleepy during daytime? Has anyone observed you stop No 02/28/25 15:41 breathing during sleep? STOP Results Negative 02/28/25 15:41 QUESTION #5 FULL TEXT : Do you snore loudly (louder than talking or can be heard through closeddoors)? 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 Specify any problems Hx of Preganancy in last 3 No 02/28/25 15:41 Months Nurse Filling Out Transfusion DSCHRIBER 02/28/25 15:41 & Questions: Date: 02/28/25 02/28/25 15:41 Time: 15:47 02/28/25 15:41 Patient unable to answer at this time (ie. confused, unrespo /Reproduction History /Reproductive History - beading sawyer: /Reproductive Hx- beading sawyer Hx Now No 02/28/25 15:41 Gestational Age (in weeks): EDC: Hx Hx Para Hx Section SAB No 02/28/25 15:41 Active Medications Active Medications: Current Medications Generic Name Dose Route Start Last Admin Trade Name Freq PRN Reason Stop Dose Admin Lactated Ringer's 1,000 mls @ 15 mls/hr 03/02/25 10:00 03/02/25 10:20 IV 15 mls/hr .Q48H MIRIAM Administration PFSH Medical History Gastric reflux History of stress test Lives in alf On home oxygen therapy History of edema MRSA (methicillin resistant staph aureus) culture positive Seizure Neuromuscular dysfunction of bladder History of Utjib-Qmenmtzsf-Xlupn (WPW) syndrome Spinal cord injury (2010) Paraplegia Cocaine abuse Heroin use Chronic headaches Right ischial pressure sore, stage 4 Left femoral shaft fracture Deep vein thrombosis of right lower extremity Hypothyroidism Chronic pain Hx: UTI (urinary tract infection) Depression Suprapubic catheter Quadriparesis Home Medications ?Medication ?Instructions ?Recorded ?Last Taken ?Type levothyroxine 75 mcg tablet 75 mcg PO MOTUWETHFRSA 03/02/25 History hypothyroidism duloxetine 60 mg capsule,delayed 90 mg PO QHS depressi on 08/21/15 07/02/24 History release acetaminophen 325 mg tablet 650 mg PO Q4H PRN PRN Pain or fever 03/01/18 04/21/21 History bisacodyl 10 mg rectal suppository 10 mg NC QHS PRN Co nstipation 03/01/18 04/21/21 History omeprazole 20 mg capsule,delayed 20 mg PO DAILY GERD 0 03/01/18 07/02/24 History release furosemide 40 mg tablet 20 mg PO BREAKFAST edema 03/02/25 History cholecalciferol (vitamin D3) 50 2,000 unit PO DAILY CANO PPLEMENT 08/08/19 07/02/24 History mcg (2,000 unit) capsule polyethylene glycol 3350 17 gram 17 gm PO QHS constipa tion 08/08/19 04/21/21 History oral powder packet docusate sodium 100 mg capsule 200 mg PO BID constipat ion 10/11/20 04/21/21 History (Colace) furosemide 20 mg tablet 20 mg PO QHS edema 04/21/21 07/02/24 History gabapentin 800 mg tablet 1,600 mg PO TID NEUROPATHY 1 06/22/20 03/02/25 History loperamide 2 mg tablet 1 mg PO Q4H PRN Diarrhea Unknown History magnesium hydroxide 400 mg/5 mL 30 ml PO DAILY PRN Con stipation 06/03/22 07/02/24 History oral suspension (Milk of Magnesia) melatonin 5 mg tablet 10 mg PO QHS PRN insomnia 07/02/24 History ondansetron HCl 4 mg tablet 4 mg PO Q4H PRN Nausea Unknown History simethicone 80 mg tablet 80 mg PO DAILY PRN Gastric R eflux 06/03/22 Unknown History benzonatate 100 mg capsule 100 mg PO Q6H PRN 07/02/23 Unknown History buspirone 10 mg tablet 10 mg PO QHS 07/02/23 History cetirizine 10 mg capsule (All Day 10 mg PO QHS allergi es 07/02/23 07/03/24 History Allergy (cetirizine)) diphenhydramine HCl 25 mg tablet 50 mg PO Q8H PRN itch ing 07/02/23 Unknown History (Allergy (diphenhydramine)) linaclotide 145 mcg capsule 145 mcg PO DAILY constipat ion 07/02/23 07/02/24 History (Linzess) paroxetine HCl 10 mg tablet 10 mg PO QHS 07/02/2306/14 History baclofen 20 mg tablet 40 mg PO 4X/DAY 02/28/25 History buprenorphine 20 mcg/hour weekly 1 patch topical QWEEK 02/28/25 Unknown History transdermal patch buspirone 7.5 mg tablet 7.5 mg PO DAILY 02/28/25 Unk nown History carbamide peroxide 6.5 % ear drops 1 drp otic (ear) Q1 2H PRN itching 02/28/25 Unknown History (Debrox) clotrimazole 1 % topical cream 1 applic topical TID Unknown History isosorbide mononitrate 20 mg tablet 20 mg PO QHS 02/28 Unknown History levothyroxine 150 mcg tablet 150 mcg PO CANO 02/28/25 Un known History potassium chloride 10 mEq 10 meq PO QHS 02/28/25 Unkno wn History capsule,extended release potassium chloride 10 mEq 20 meq PO DAILY hypokalemia 02/28/25 Unknown History capsule,extended release sennosides 8.6 mg-docusate sodium 1 tab-cap PO DAILY P RN constipation 02/28/25 Unknown History 50 mg tablet (Senna Plus) tramadol 50 mg tablet 50 mg PO TID 02/28/25 Unknow n History Allergy/AdvReac Type Severity Reaction Status Date / Time apixaban (From Eliquis) Allergy Rash Verified 03/02/25 09:59 coconut oil Allergy cant breath Verified 03/02/25 09:59 mometasone furoate (From Allergy Rash Verified 03/02/25 09:59 Elocon) nitrofurantoin Allergy Unknown Verified 03/02/25 09:59 rivaroxaban (From Xarelto) Allergy Rash Verified 03/02/25 09:59 Sulfa (Sulfonamide Allergy Shortness Verified 03/02/25 09:59 Antibiotics) of breath Penicillins AdvReac NEEDS Verified 03/02/25 09:59 FOLLOW-UP Family History Mother Diabetes Grandfather CAD (coronary artery disease) Colon cancer Grandmother Breast cancer Aunt Ovarian cancer Surgical History History of tracheostomy (2010) Social History Smoking Status: Never smoker Review of Systems (Anesthesia) ROS Narrative System reviewed and no additional complaints, except as documented. 03/02/25 1025 > Date _ Corey Lauren MD Cosign Signature: Date CC: ~ Signed [facility]09-18-2024 Hospital Discharge instructions Patient Education 03/01/2024 14:05:50 1-SDS URO Cystoscopy (03/2022) (Custom) YOU HAVE BEEN [...] chills please contact our office immediately at [phone], Option 1 for the nurse line. POST CYSTOSCOPY: After the cystoscopy, you might experience mild discomfort with the first little urination and possibly experience some blood in the urine. You should increase your water intake for the next 1-2 daysfollowing the procedure. You will also get a prescription of antibiotics to take following the procedure. 03/01/2024 14:05:50 Cystogram Cystogram A cystogram, which is also called cystography, is a type of X-ray exam that is used to check for problems with the bladder. You may need this exam if you have blood in your urine (hematuria), urinarytract infections that keep coming back, or possible [...] including vitamins, herbs, eye drops, creams, and edsu-knf-polfvzb medicines. Any problems you or family members [...] provider tells you to take them. ?Taking eygm-xlm-txmadft medicines, vitamins, herbs, and supplements. Follow instructions [...] 07/02/2005 Document Revised: 05/13/2018 Document Reviewed: 05/09/2018 [employer] Patient Education 2020 [employer]. 03/01/2024 14:01:34 1- [facility] General Discharge Guidelines (02/26/2023) (CUSTOM) [facility] SAME DAY SURGERY DISCHARGE INSTRUCTIONS PLEASE FOLLOW THE INSTRUCTIONS BELOW MARKED WITH AN X: __X_Regular Diet: Start with clear liquids, then soup and crackers. Gradually add other foods unless otherwise instructed by your surgeon __X_Drink extra fluids ACTIVTY: __X_Since you have had anesthetic, it would be advisable not to drive, drink alcohol, or make majordecisions over the next 24 hours. You may [...] Up Care 02/10/2024 13:34:32 With:CHERIE RENEE MD, [facility], Urology Service Address: [address] [place] [address] [address] [place] [address] [phone] When: Unknown Comments:Follow-up as scheduled With:LONI PAGE, [facility] [place], Urology Service Address: [address] [place] [address] [address] [place] [address] [phone] When: Unknown [facility] 09-18-2024 Summary of episode note Discharge Instructions Thank you for allowing [facility] to assist you with your healthcare needs. The following is importantdischarge information regarding your hospital visit. Your Diagnosis [...] 03/17/2024 10:20 AM EDT CHERIE RENEE MD [facility] Confirmed Follow Up Appointments Follow Up with CHERIE RENEE MD, [facility] Where:[address] [place] [address] [address] [place] [address] [phone] Additional Information: Follow-up as scheduled Follow Up with LONI PAGE, [facility], Urology Service Where:[address] [facility] [address] [place] [address]- [phone] The Following Activity and Diet Have Been [...] and or supplements as they may interact withyour home medications. What How Much When Why [...] for Constipation Unchanged potassium chloride (Potassium Chloride (Akr-Uvhm-Scx M10) 10 mEq oral tablet, extended release) [...] chills please contact our office immediately at [phone], Option 1 for the nurse line. POST CYSTOSCOPY: After the cystoscopy, you might experience mild discomfort with the first little urination and possibly experience some blood in the urine. You should increase your water intake for the next 1-2 daysfollowing the procedure. You will also get a prescription of antibiotics to take following the procedure. Cystogram A cystogram, which is also called cystography, is a type of X-ray exam that is used to check for problems with the bladder. You may need this exam if you have blood in your urine (hematuria), urinarytract infections that keep coming back, or possible [...] including vitamins, herbs, eye drops, creams, and xhoi-awf-dbqgdng medicines. Any problems you or family members [...] tells you to take them. ? Taking iwtu-vhk-mpzjhic medicines, vitamins, herbs, and supplements. Follow instructions [...] 07/02/2005 Document Revised: 05/13/2018 Document Reviewed: 05/09/2018 [employer] Patient Education 2020 [employer] [facility] JOSE SAME DAY SURGERY DISCHARGE INSTRUCTIONS PLEASE FOLLOW THE INSTRUCTIONS BELOW MARKED WITH AN X: __X_Regular Diet: Start with clear liquids, then soup and crackers. Gradually add other foods unless otherwise instructed by your surgeon __X_Drink extra fluids ACTIVTY: __X_Since you have had anesthetic, it would be advisable not to drive, drink alcohol, or make majordecisions over the next 24 hours. You may [...] to receive it can visit one of [facility] vaccine clinics. There are many vaccine clinic locations within the [facility]. For locations and available times, please visit [email or web address].coronavirus.[place].gov/. It is important to note that some COVID mobile vaccine clinics are held outdoors and may be canceled in rainy or stormy conditions. To learn more about pediatric vaccinations (ages 5-11), we invite you to visit the [facility] webpage. https://www.[facility].org/pages/0339-Foyop-Ovgymdjdlqu-Dazbxcbkgo-Crkgq-Lya stions.htmlTo learn more about the COVID-19 vaccine, we invite you to visit the CDC website for a list of frequently asked questions.https://www.cdc.gov/coronavirus/2019-ncov/vaccines/faq.html [facility] Patient Portal Access Instructions: Stay connected with your healthcare team and access your personal medical information anytime with the [employer] Patient Portal. Please follow the directions below to create your [employer] account: 1.Access the email account you provided upon registration to the hospital/physician office.2.Look for an invitation email from [facility].3.Open the email and access the invitation link: AcceptInvitation to [facility].4.Fill in the required lback to create your account. To access your account, visit [email or web address]. Click the blue button labeled "Access Patient Portal" and then log in with the username and password that you created in the steps above. You will be able to view your test results, lab results, a summary of your visits, upcoming appointments and more. There is also a convenient messaging option where you can send secure messages to your p rovider. In addition, you will have the ability to download any documents or summaries to your computer and/or send the information securely to a physician. Remember that your healthcare information is confidential, so carefully consider who you will allowto register on the [facility] Patient Portal for access to your information. You can also access the [facility] Patient Portal on the [facility] magdalena. Simply click on "Patient Portal" and then log into your account. If you would like to receive a full copy of your medical records, please contact the [facility] Medical Records Department by calling [phone], Wednesday through Wednesday between 8 a.m. and 4:30 p.m. HOW TO SAFELY DISPOSE OF PRESCRIPTION MEDICATIONS Please use one of the following methods to safely dispose of your unused medications. 1.Use a drug disposal kit: the drug disposal pouch allows you to safely discard your old and unuseddrugs. Ask your nurse to give you one when you are discharged.2.Visit a local take-back location: Many local pharmacies and police departments have programs that collect old and unwanted prescriptiondrugs. Call your local pharmacy or go to http://bit.TrialBee/5F9Hi0u to find one close to you.3.Make use of household items: Use cat litter or old coffee grounds to dispose medications if other options arenot available. Mix your drugs with these household products, seal them in an airtight container andthrow it into the garbage. Call [facility]: [phone] to be sure your drugs can be [...] and explained to me and I,HENRIK REED my current condition and have read and understand these discharge instructions. I have received a written copy of the plan/instructions. If I have questions, I am aware that I should contact my doctor. 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: Date/Time: Relationship to Patient: Witness Name/Signature: Date/Time: [facility] [id number] Anesthesiology Consult note Patient: HENRIK REED Age: [...] YFN CANTU MD on 03/01/2024 01:26 PM [facility] [id number] History and physical note Date of Service [...] CHERIE RENEE MD on 03/01/2024 11:05 AM [facility] [id number] Anesthesiology Consult note Patient: HENRIK REED Age: [...] tab(s), Oral, qDay, 0 Refill(s) Potassium Chloride (Bkc-Liku-Nyu M10) 10 mEq oral tablet, extended release: [...] Medical Abdominal pain, acute / SNOMED CT 009159332 / Confirmed Anxiety disorder / SNOMED CT 642370627 / Confirmed Depression / SNOMED CT 531263554 / Confirmed Neurogenic bladder: s/p SPT (placed by Dr. Choi) / SNOMED CT 3065329858 / Confirmed Recurrent UTI / SNOMED CT 895880557 / Confirmed Bladder spasms / SNOMED CT 249170240 / Confirmed Chronic suprapubic catheter / SNOMED CT 8271800809 / Confirmed Bladder calculi / SNOMED CT 619884914 / Confirmed, Active Problems (20) Abdominal pain, [...] selected or recorded. Procedure history: H/O: tracheostomy (291544771). Abdominal hysterectomy (526741615). Laparotomy (189937167). Comments: 04/03/2019 11:42 EDT - ISAEL Oglesby for repair of bowel after hysterectomy Closed fracture of cervical spine (341730598). Comments: 07/28/2021 10:35 Brooke Dhaliwal RN c7 [...] Weight Lbs 250.1 lb Weight Method Actual Mckenzie Body Weight 47.76 kg Admission Body Mass [...] records, Reviewed prior records. Assessment and Plan [place] [employer] Anesthesiologists (ASA) physical status classification: Class III. H/o hypothyroidism, chronic hypoxic resp insufficiency (4 LNC 24/), Anxiety, Chronic suprapubic catheter, Depression, H/O quadriplegia, [...] YFN CANTU MD on 03/01/2024 12:36 PM [facility] [id number] Note ORIGINAL EXAMINATION: 2 SUPINE XRAY VIEW(S) [...] Sign Date: 03/01/2024 2:10:42 PM Ordering Provider: [facility]08-21-2024 Evaluation + Plan note Future Scheduled Tests Laboratory* Basic Metabolic Panel 02/02/24 * Complete Blood Count 02/02/24 Radiology* XR Abdomen AP 05/17/24 [facility] 08-15-2024 Note ORIGINAL EXAMINATION: ONE SUPINE XRAY VIEW(S) [...] Sign Date: 01/27/2024 10:48:47 PM Ordering Provider: [facility]08-15-2024 Note ORIGINAL EXAMINATION: ULTRASOUND OF THE KIDNEYS [...] Sign Date: 01/27/2024 1:20:23 PM Ordering Provider: [facility]01-25-2024 Progress note Author Paul Walsh [facility] July 08, 2023 10:09am Note Date/Time July 08, 2023 1 0:09am [facility] Medical Records Department [address] [place] [address] Progress Note - Infect Disease 07/08/23 1008 MR#: [id number] Acct: [id number] Name: HENRIK REED Rep #:[id number] : 1975 48 From: Paul kapadia MD PCP: Dr. Lavon Vicente MD Status:ADM I N Location: [place] [address] Physical Exam Narrative Feeling better, no abd [...] 1009 <Electronically signed by Paul Walsh MD> Cosigner Signature (if applicable): CC: ~ Signed [facility] Work Phone: 1(288) 283-630401-24-2024 Progress note Author Raad Hope [facility] July 07, 2023 2:02pm Note Date/Time July 07, 2023 2 :02pm [facility] Medical Records Department [address] [place] [address] Progress Note - Hospitalist 07/07/23 1358 MR#: [id number] Acct: [id number] Name: HENRIK REED Rep #:[id number] : 1975 48 From: Raad Whaley PCP: Dr. Lavon Vicente MD Status:ADM I N Location: [place] [address] Reason for Visit Reason for Visit: Diagnoses [...] / 870 340 / 340 Output Total 2025 / 2225 800 / 1100 550 / 550 Balance [...] % (Auto) 52.7, Lymph % (Auto) 33.9, [place] % (Auto) 7.6, Eos % (Auto) 4.8, [...] F was admitted on 07/02/2023 from [facility] for altered mental status. Per daughter she [...] EST , Charges/Coding Visit Charges Inpatient E&M: 24431 Subs Hosp L2 07/07/23 1402 <Electronically signed by Raad Hope MD> Cosigner Signature (if applicable): CC: ~ Signed [facility] Work Phone: 1(534) 393-271801-24-2024 [facility] Progress note Author Raad Hope [facility] July 06, 2023 4:34pm Note Date/Time July 06, 2023 4 :34pm [facility] Medical Records Department [address] [place] [address] Progress Note - Hospitalist 07/06/23 1625 MR#: [id number] Acct: [id number] Name: HENRIK REED Rep #:[id number] : 1975 48 From: Raad Whaley PCP: Dr. Lavon Vicente MD Status:ADM I N Location: [place] [address] Reason for Visit Reason for Visit: Diagnoses [...] % (Auto) 66.8, Lymph % (Auto) 21.7, [place] % (Auto) 6.5, Eos % (Auto) 4.0, [...] F was admitted on 07/02/2023 from [facility] for altered mental status. Per daughter she [...] sq BID Charges/Coding Visit Charges Inpatient E&M: 22008 Subs Hosp L2 07/06/23 1634 <Electronically signed by Raad Hope MD> Cosigner Signature (if applicable): CC: ~ Signed [facility] Work Phone: 1(934) 513-252201-23-2024 Consult note Author Flaco Choi [facility] July 06, 2023 3:04pm Note Date/Time July 06, 2023 3 :04pm [facility] Medical Records Department [address] [place] [address] Consultation - Urology 07/06/23 1503 MR#: [id number] Acct: [id number] Name: HENRIK REED Rep #:[id number] : 1975 48 From: Flaco Choi MD PCP: Dr. Lavon Vicente MD Status:ADM I N Location: [place] [address] HPI Consult Data Date of Consult: 07/06/23 [...] operating room to laser the bladder stones. [facility] Medical History Abnormal EKG Chronic headaches Chronic pain Cocaine abuse Deep vein thrombosis of right lower extremity Depression Exogenous obesity Heroin use History of Nszlx-Gnjaijven-Icmel (WPW) syndrome Hx: UTI (urinary tract infection) [...] bisacodyl 10 mg rectal suppository 10 mg NC QHS PRN Constipation 03/01/18 [History Last Taken [...] 400 mg/5 mL oral suspension (Milk of MagnPayPlug) 30 ml PO DAILY PRN Constipation 06/03/22 [...] solution 3.375 g IV Q8H 4 days 01/23/24 [Rx Last Taken Unknown] Allergy/AdvReac Type Severity [...] % (Auto) 66.8, Lymph % (Auto) 21.7, [place] % (Auto) 6.5, Eos % (Auto) 4.0, [...] Cosigner Signature (if applicable): CC: Wendy Correa; Maria Gthierno Cortez; Jonnahuy Mansfield; Urbano Wagner; Alana Cavazos MD;Harper Quach [...] Jacklyn Queen DO; Klaudia Mercado MD~ Signed [facility] Work Phone: 1(363) 977-256501-23-2024 Procedure [facility] 07-06-2023 Progress note Author Paul [facility] July 06, 2023 10:28am Note Date/Time July 06, 2023 1 0:28am [facility] Medical Records Department [address] [place] [address] Progress Note - Infect Disease 07/06/23 1025 MR#: [id number] Acct: [id number] Name: HENRIK REED Rep #:[id number] : 1975 48 From: Paul kapadia MD PCP: Dr. Lavon Vicente MD Status:ADM I N Location: [facility] HVK509- 1 Physical Exam Narrative C/o moderate abd pain, [...] Cosigner Signature (if applicable): CC: ~ Signed [facility] Work Phone: 1(220) 650-224401-22-2024 Consult note Author Paul [facility] July 05, 2023 3:18pm Note Date/Time July 05, 2023 3 :19pm [facility] Medical Records Department [address] [place] [address] Consultation - Infectious Dx 07/05/23 1516 MR#: [id number] Acct: [id number] Name: HENRIK REED Rep #:[id number] : 1975 48 From: Paul kapadia MD PCP: Dr. Lavon Vicente MD Status:ADM I N Location: [place] [address] Assessment & Plan Assessment/Plan (1) VRE infection [...] performed and neg except as noted above. [facility] Medical History Abnormal EKG Chronic headaches Chronic pain Cocaine abuse Deep vein thrombosis of right lower extremity Depression Exogenous obesity Heroin use History of Dfujr-Dxrodwmiq-Gllfi (WPW) syndrome Hx: UTI (urinary tract infection) [...] bisacodyl 10 mg rectal suppository 10 mg NC QHS PRN Constipation 03/01/18 [History Last Taken [...] % (Auto) 55.0, Lymph % (Auto) 33.4, [place] % (Auto) 7.5, Eos % (Auto) 3.1, [...] Poss Enterococcus sp Gram negative luann#2 07/05/23 1518 <Electronically signed by Paul Walsh MD> Cosigner [...] Jacklyn Queen DO; Klaudia Mercado MD~ Signed [facility] Work Phone: 1(821) 678-947401-22-2024 Progress note Author Raad Hope [facility] July 05, 2023 2:43pm Note Date/Time July 05, 2023 9 :18am [facility] Medical Records Department [address] [place] [address] Progress Note - Hospitalist 07/05/23 0913 MR#: [id number] Acct: [id number] Name: HENRIK REED Rep #:[id number] : 1975 48 From: Raad Whaley PCP: Dr. Lavon Vicente MD Status:ADM I N Location: [place] [address] Reason for Visit Reason for Visit: Diagnoses [...] % (Auto) 55.0, Lymph % (Auto) 33.4, [place] % (Auto) 7.5, Eos % (Auto) 3.1, [...] F was admitted on 07/02/2023 from [facility] for altered mental status. Per daughter she [...] sq BID Charges/Coding Visit Charges Inpatient E&M: 96449 Subs Hosp L2 07/05/23 2826 <Electronically signed by Raad Hope MD> Cosigner Signature (if applicable): CC: ~ Signed [facility] Work Phone: 1(162) 877-573701-22-2024 Progress note Author Franciscochang Pitts [facility] July 05, 2023 11:33am Note Date/Time July 05, 2023 8 :19am [facility] Medical Records Department [address] [place] [address] Progress Note - Panelbeater 07/05/23 0819 MR#: [id number] Acct: [id number] Name: HENRIK REED Rep #:[id number] : 1975 48 From: Francisco Hong CORRIGAN PCP: Dr. Lavon Vicente MD Status:ADM I N Location: [place] [address] Assessment & Plan Assessment/Plan (1) Sepsis: PLAN: [...] noted above. This note was generated with Geos[employer]ation software. It may contain incorrectwords, spelling, and [...] % (Auto) 55.0, Lymph % (Auto) 33.4, [place] % (Auto) 7.5, Eos % (Auto) 3.1, [...] flat affect Charges/Coding Visit Charges Inpatient E&M: 97121 Subs Hosp L2 07/05/23 1133 <Electronically signed by Francisco Pitts DO> Cosigner Signature (if applicable): CC: ~ Signed [facility] Work Phone: 1(630) 435-410201-21-2024 Progress note Author Shari Pastor [facility] July 04, 2023 11:07am Note Date/Time July 04, 2023 6 :54am [facility] Medical Records Department [address] [place] [address] Progress Note - Hospitalist 07/04/23 0651 MR#: [id number] Acct: [id number] Name: HENRIK REED Rep #:[id number] : 1975 48 From: Shari Pastor MD PCP: Dr. Lavon Vicente MD Status:ADM I N [facility] Reason for Visit Reason for Visit: Diagnoses [...] % (Auto) 59.8, Lymph % (Auto) 30.5, [place] % (Auto) 7.8, Eos % (Auto) 1.1, [...] pain; on Buprenorphine patch who presents to [facility] ER 07/02/2023 from [facility] for altered mental status. Per daughter she [...] documentation, 37Minutes Charges/Coding Visit Charges Inpatient E&M: 05589 Subs Hosp L2 07/04/23 1107 <Electronically signed by Shari Pastor MD> Cosigner Signature (if applicable): CC: ~ Signed [facility] Work Phone: 1(893) 364-220401-21-2024 Progress note Author Jonna Mansfield [facility] July 04, 2023 10:09am Note Date/Time July 04, 2023 9 :50am [facility] Medical Records Department [address] [place] [address] Progress Note - Neurology 07/04/23 0942 MR#: [id number] Acct: [id number] Name: HENRIK REED Rep #:[id number] : [...] home baclofen and discontinue Keppra. Transfer to [facility] for the following reasons: none I personally attended this patient and spent a total time of 30 minutes evaluating this patient including clinical assessment, review of chart, medical history imaging, and determining appropriate treatment and workup. Jonna Mansfield MD [facility] Neurology Department Subject: Neurology Subjective HENRIK REED [...] moderate degree of encephalopathy. EEG performed by: [facility], [facility] [place] [place] Physicians JOHNSON Brown M.D. 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 Detailed reflex exam as performed by the nurse/MAGDALENA and witnessed by the physician: R L Biceps Patellar Ankle Babinski -? Tone: is normal and bulk is normal -? Sensation- Intact to light touch bilaterally -? Coordination: No dysmetria on rjpmhl-fuwp-okrchc, finger follow finger or xaok-gtuo-xyic. -? Gait- Gait initiation was normal. Narrow base with good heel strike and stride length was observed during ambulation. Turns were in stride. Patient was able to walk normally in tandem. Romberg was normal. 07/04/23 1009 <Electronically signed by Jonna Mansfield MD> Cosigner Signature (if applicable): CC: ~ Signed [facility] Work Phone: 1(984) 542-881001-21-2024 Progress note Author Francisco Pitts [facility] July 04, 2023 6:23am Note Date/Time July 04, 2023 5 :40am [facility] Medical Records Department [address] [place], [place] [address] [address] Progress Note - Panelbeater 07/04/23 0538 MR#: [id number] Acct: [id number] Name: HENRIK REED Rep #:[id number] : [...] noted above. This note was generated with [employer] dictation software. It may contain incorrectwords, spelling, [...] % (Auto) 59.8, Lymph % (Auto) 30.5, [place] % (Auto) 7.8, Eos % (Auto) 1.1, [...] flat affect Charges/Coding Visit Charges Inpatient E&M: 83368 Subs Hosp L2 07/04/2323 <Electronically signed by Francisco Pitts DO> Cosigner Signature (if applicable): CC: ~ Signed [facility] Work Phone: 1(436) 706-944301-21-2024 Consult note Author Francisco Pitts [facility] July 04, 2023 5:38am Note Date/Time July 03, 2023 6 :09am [facility] Medical Records Department [address] [place] [address] Consultation - Panelbeater 07/03/23604 MR#: [id number] Acct: [id number] Name: HENRIK REED Rep #:[id number] : 1975 48 From: Francisco Pitts DO PCP: Dr. Lavon Vicente MD Status:ADM I N Location: ICU CVICU 1-1 Assessment & Plan Assessment/Plan (1) Sepsis: [...] noted above. This note was generated with [employer] dictation software. It may contain incorrectwords, spelling, [...] The patient currently resides at a local [facility] facility. She has a history of morbid obesity, hypothyroidism, baseline quadriplegia, neurogenic bladder with suprapubic catheter and frequent UTIs, history of VRE, Qngkb-Bfoabdxap-Dvhez syndrome, chronic pain syndrome and chronic wounds. [...] present time. Her lactic acidemia has resolved. [facility] Medical History Abnormal EKG Chronic headaches Chronic pain Cocaine abuse Deep vein thrombosis of right lower extremity Depression Exogenous obesity Heroin use History of Jtost-Xriehtdzr-Hceqh (WPW) syndrome Hx: UTI (urinary tract infection) [...] bisacodyl 10 mg rectal suppository 10 mg NC QHS PRN Constipation 03/01/18 [History Last Taken [...] % (Auto) Cancelled, Lymph % (Auto) Cancelled, [place] % (Auto) Cancelled, Eos % (Auto) Cancelled, [...] Tear DropCells Cancelled, Ovalocytes Cancelled, Stomatocytes Cancelled, Sanders-Campobello Bodies Cancelled, Kelsey Cells Cancelled, Bite Cells [...] Clarity Turbid, Urine pH 7.0, Ur Specific Carrie 1.010, Urine Protein 500 H, Urine Glucose [...] 86.2 H, Lymph % (Auto) 8.7 L, [place] % (Auto) 4.0, Eos % (Auto) 0.3, [...] 23:56 EST Reading Location ID and State: [id number] / [employer] , Service support , Brain CT 07/02/23 23:25 IMPRESSION: Normal unenhanced CT scan of the brain. Acute left sphenoid sinusitis Electronically Signed: Yuri Cerna MD at 23:45 EST Reading Location ID and State: [id number] / [employer] , Service support , Charges/Coding Visit Charges Inpatient E&M: 21882 Init Hosp L3 07/04/23 0538 <Electronically signed by Francisco Pitts DO> Cosigner Signature (if applicable): CC: Wendy Correa; Margarita Cortez; Jonna Mansfield; Urbano Wagner; Alana Cavazos MD;Harper Quach MD; Tyrell Rodriguez MD; Dulce Livingston MD; Dr. Kendy Mccarthy MD; Dr. Salas Ely MD; Dr. Zaan Fish MD; Dr. Renzo De Paz DO; [...] Jacklyn Queen DO; Klaudia Mercado MD~ Signed [facility] Work Phone: 1(625) 553-287501-21-2024 Consult note Author Alana Cavazos [facility] July 04, 2023 12:09am Note Date/Time July 03, 2023 1 2:57pm [facility] Medical Records Department [address] [place] [address] Consultation - Neurology 07/03/23 1255 MR#: [id number] Acct: [id number] Name: HENRIK REED Rep #:[id number] : [...] pain; on Buprenorphine patch who presents to [facility] ER 07/02/2023 from [facility] for altered mental status. Per daughter she [...] reported she saw her yesterday at her F and she was alert and at her [...] Unable to maintain enteral access d/t confusion [facility] Medical History Abnormal EKG Chronic headaches Chronic pain Cocaine abuse Deep vein thrombosis of right lower extremity Depression Exogenous obesity Heroin use History of Mbjdz-Djjlvwuky-Dkzla (WPW) syndrome Hx: UTI (urinary tract infection) [...] bisacodyl 10 mg rectal suppository 10 mg NC QHS PRN Constipation 03/01/18 [History Last Taken [...] % (Auto) Cancelled, Lymph % (Auto) Cancelled, [place] % (Auto) Cancelled, Eos % (Auto) Cancelled, [...] Drop Cells Cancelled, Ovalocytes Cancelled, Stomatocytes Cancelled, Sanders-Campobello Bodies Cancelled, Kelsey Cells Cancelled, Bite Cells [...] Clarity Turbid, Urine pH 7.0, Ur Specific Carrie 1.010, Urine Protein 500 H, Urine Glucose [...] 86.2 H, Lymph % (Auto) 8.7 L, [place] % (Auto) 4.0, Eos % (Auto) 0.3, [...] 23:56 EST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 47 From: Renzo Alva MD PCP: Dr. Lavon Vicente MD Status:ADM I N Location: [place] [address] Providers Date of Admission: 09/12/22 Date of [...] with paraplegia secondary to spinal cord injury [id number] presented with shortness of breath CT demonstrated [...] bisacodyl 10 mg rectal suppository 10 mg NC QHS PRN Constipation 03/01/18 omeprazole 20 mg [...] % (Auto) 62.5, Lymph % (Auto) 24.0, [place] % (Auto) 8.3, Eos % (Auto) 4.2, [...] Pain) bisacodyl 10 MG suppository 10 mg NC QHS PRN (Reason: Constipation) omeprazole 20 MG [...] in before D/C Order can be placed): Nursing Home Facility Charges/Coding Visit Charges Inpatient E&M: 20492 Disch Hosp >30min 09/14/22 1244 <Electronically signed by Renzo Alva MD> Cosigner Signature (if applicable): CC: Dr. Renzo Alva MD; Dr. Lavon Vicente MD~ Signed [facility] Work Phone: [phone] 739-550904-03-[address] Alva [facility] September 14, 2022 12:42pm Note Date/Time September 14, 2022 12:4 2pm [facility] Medical Records Department [address] [place] [address] Transfer to Extended Care MR#: [id number] Acct: [id number] Name: HENRIK REED Rep #:[id number] : 1975 47 From: Renzo Alva MD PCP: Dr. Lavon Vicente MD Status:ADM I N Certification of patient admission REQUIRED AT TIME OF ADMISSION. I CERTIFY THAT POST-HOSPITAL ECF SERVICES ARE REQUIRED TO BE GIVEN ON AN IN-PATIENT BASIS BECAUSE OF THE ABOVE NAMED PATIENT'S NEED FOR FPC CARE ON A CONTINUING BASIS FOR THE CONDITION(S) FOR WHICH HE/SHE WAS RECEIVING IN-PATIENT HOSPITAL SERVICES PRIOR TO HIS/HER TRANSFER TO THE ECF. 09/14/22 1242<Electronically signed by Renzo Alva MD> Diet Diet Order/Speech Therapy: 09/12/22 15:51 Diet: Cardiac: Calorie-Controlled Food consistency:: Regular Liquid Consistency:: Regular/Thin How many daily calories?: 2000 calorie Problem/Diagnosis (1) Pneumonia: Status: Acute Code(s): J18.9 - Pneumonia, unspecified organism Plan Patient is a 47-year-old lady with paraplegia secondary to spinal cord injury [id number] presented with shortness of breath CT demonstrated [...] Pain) bisacodyl 10 MG suppository 10 mg NC QHS PRN (Reason: Constipation) omeprazole 20 MG [...] in before D/C Order can be placed): Nursing Home Facility 09/14/22 1242 <Electronically signed by Renzo Alva MD> Cosigner Signature (if applicable): CC: Dr. Shari Pastor MD; Dr. Lavon Vicente MD; Dr. Paul Walsh MD ~ [facility] Work Phone: 1(585) 742-515804-03-[address] Alva [facility] September 14, 2022 12:41pm Note Date/Time September 14, 2022 11:4 3am [facility] Medical Records Department [address] [place] [address] Progress Note - Hospitalist 09/14/22 1143 MR#: [id number] Acct: [id number] Name: HENRIK REED Rep #:[id number] : 1975 47 From: Renzo Alva MD PCP: Dr. Lavon Vicente MD Status:ADM I N [facility] Reason for Visit Reason for Visit: Diagnoses Pneumonia, unspecified organism (09/12/22) Subjective Subjective Patient is a 47-year-old lady with paraplegia secondary to spinal cord injury [id number] presented with shortness of breath CT demonstrated [...] / 1795 540 / 540 Output Total 1575 / 1975 1000 / 1000 Balance 2864 / 2364 [...] % (Auto) 62.5, Lymph % (Auto) 24.0, [place] % (Auto) 8.3, Eos % (Auto) 4.2, [...] with paraplegia secondary to spinal cord injury [id number] presented with shortness of breath CT demonstrated [...] 38-minute minutes Charges/Coding Visit Charges Inpatient E&M: 24669 Subs Hosp L2 09/14/22 1241 <Electronically signed by Renzo Alva MD> Cosigner Signature (if applicable): CC: ~ Signed [facility] Work Phone: [phone] 900-896904-03-[address] Ho [facility] September 14, 2022 11:03am Note Date/Time September 14, 2022 11:0 3am [facility] Medical Records Department [address] [place] [address] Consultation - Infectious Dx 09/14/22 1100 MR#: [id number] Acct: [id number] Name: HENRIK REED Rep #:[id number] : 1975 47 From: Paolo Ho MD PCP: Dr. Lavon Vicente MD Status:ADM I N Location: [place] [address] Assessment & Plan Assessment/Plan (1) Pneumonia: PLAN: Strongly suspect viral pneumonia at this point will discontinue parenteralantibacterial therapy and continue supportive care. HPI Consult Data Date of Consult: 09/14/22 HPI Narrative Reason for Consultation: Pneumonia/urinary tract infection HPI Narrative: HENRIK REED, is a 47 F who presents from [facility] with a history of spinal cord [...] therapyempirically. No gastrointestinal distress. Overall hemodynamically stable. [facility] Medical History Abnormal EKG Chronic headaches Chronic pain Cocaine abuse Deep vein thrombosis of right lower extremity Depression Exogenous obesity Heroin use History of Iqmuq-Cgmfvoycf-Ltnpr (WPW) syndrome Hx: UTI (urinary tract infection) [...] bisacodyl 10 mg rectal suppository 10 mg NC QHS PRN Constipation 03/01/18 [History Last Taken [...] % (Auto) 62.5, Lymph % (Auto) 24.0, [place] % (Auto) 8.3, Eos % (Auto) 4.2, [...] Pastor MD; Dr. Lavon Vicente MD; Dr. Paul Walsh MD~ Signed [facility] Work Phone: 1(521) 821-308404-02-[address] Pastor [facility] September 13, 2022 11:53am Note Date/Time September 13, 2022 10:0 2am [facility] Medical Records Department [address] [place] [address] Progress Note - Hospitalist 09/13/22 1002 MR#: [id number] Acct: [id number] Name: HENRIK REED Rep #:[id number] : 1975 47 From: Shari Pastor MD PCP: Dr. Lavon Vicente MD Status:ADM I N Location: [place] [address] Reason for Visit Reason for Visit: Diagnoses [...] / 2865 540 / 540 Output Total 900 / 900 Balance 2864 / 2364 [...] 84.0 H, Lymph % (Auto) 8.3 L, [place] % (Auto) 5.4, Eos % (Auto) 1.7, [...] % (Auto) 64.4, Lymph % (Auto) 25.5, [place] % (Auto) 6.1, Eos % (Auto) 3.1, [...] Steven Rodney MD at 12:23 EDT , Physical Exam Narrative General: Alert, oriented, [...] Dr. Rodriguez next week to establish care -4/2: Urine culture and blood culture is pending, [...] to try BiPAP if no other option -4/2: Positive for rhinovirus, continue supportive care. Antibiotics [...] documentation, 30minutes Charges/Coding Visit Charges Inpatient E&M: 10964 Subs Hosp L2 09/13/22 1153 <Electronically signed by Shari Pastor MD> Cosigner Signature (if applicable): CC: ~ Signed [facility] Work Phone: 1([phone]) 658-504704-01-[address] Aguila [facility] September 12, 2022 3:58pm Note Date/Time September 12, 2022 10:0 9am [facility] Medical Records Department [address] [place] [address] Emergency Department Summary 09/12/22 MR#: [id number] Acct: [id number] Name: HENRIK REED Rep #:[id number] : 1975 47 From: Estevan Aguila DO PCP: Dr. Lavon Vicente MD Status:ADM I N Location: [place] [address] HPI History of Present Illness Chief Complaint: Shortness [...] Rodriguez next week. Previously shesaw somebody at [facility]. She has a suprapubic catheter. [facility] Medical History Abnormal EKG Chronic headaches Chronic pain Cocaine abuse Deep vein thrombosis of right lower extremity Depression Exogenous obesity Heroin use History of Silvt-Gmszcvraa-Hmefa (WPW) syndrome Hx: UTI (urinary tract infection) [...] bisacodyl 10 mg rectal suppository 10 mg NC QHS PRN Constipation 03/01/18 [History Last Taken [...] Status Date / Time apixaban [From [facility]] Allergy Rash Verified 09/12/22 09:06 coconut oil [...] 84.0 H Lymph % (Auto) 8.3 L [place] % (Auto) 5.4 Eos % (Auto) 1.7 [...] Color Urine Clarity Urine pH Ur Specific Carrie Urine Protein Urine Glucose (UA) Urine Ketones [...] (Auto) Neut % (Auto) Lymph % (Auto) [place] % (Auto) Eos % (Auto) Baso % [...] Clarity Cloudy Urine pH 8.0 Ur Specific Carrie 1.015 Urine Protein 100 H Urine Glucose [...] Discharge Plan Disposition Disposition: Acute Care Hospital [facility] Discharge Date/Time: 09/12/22 15:44 What to do if you have Problems For any increased pain, shortness of breath, bleeding, nausea or vomiting, chestpain, or any unexpected problems, contact your Primary Care Provider. Call [facility] ([phone]) or report to the closest Emergency Room. Call 911 if necessary. 09/12/22 9444 <Electronically signed by Estevan Aguila DO> Cosigner Signature (if applicable): CC: Dr. Lavon Vicente MD ~ Signed [facility] Work Phone: 1(390) 296-406804-01-2023 History and physical note Author Dr. Pastor [facility] September 12, 2022 3:13pm Note Date/Time September 12, 2022 2:55 pm [facility] Medical Records Department [address] [place] [address] H&P Exam - Hospitalist 09/12/22 1449 MR#: [id number] Acct: [id number] Name: HENRIK REED Rep #:[id number] : 1975 47 From: Shari Pastor MD PCP: Dr. Lavon Vicente MD Status:ADM I N Location: [place] [address] HPI - General General Date of Admission: 09/12/22 Date of Service: 09/12/22 Chief Complaint: SOB HPI Narrative Ms. Reed is a 47-year-old female with a history of paraplegia since 2010 with a suprapubic catheter and history of UTIs as well as DVT of right lower extremity, and morbid obesity who presented to [facility] from alf 09/12 due to shortness of breath for [...] at present or other wounds of note. [facility] Medical History Abnormal EKG Chronic headaches Chronic pain Cocaine abuse Deep vein thrombosis of right lower extremity Depression Exogenous obesity Heroin use History of Xfjtw-Xwoigqfux-Moggd (WPW) syndrome Hx: UTI (urinary tract infection) [...] bisacodyl 10 mg rectal suppository 10 mg NC QHS PRN Constipation 03/01/18 [History Last Taken [...] 84.0 H, Lymph % (Auto) 8.3 L, [place] % (Auto) 5.4, Eos % (Auto) 1.7, [...] documentation, 60minutes Charges/Coding Visit Charges Inpatient E&M: 85721 Init Hosp L2 09/12/22 1513 <Electronically signed by Shari Pastor MD> Cosigner Signature (if applicable): CC: Dr. Shari Pastor MD; Dr. Lavon Vicente MD~ Signed [facility] Work Phone: [phone]) 981-250702-10-[address] Beasley [facility] July 24, 2022 9:48pm Note Date/Time July 24, 2022 7:22pm [facility] Medical Records Department [address] [place] [address] Emergency Department Summary 07/24/22 MR#: [id number] Acct: [id number] Name: HENRIK REED Rep #:[id number] : 1975 47 From: Marc Beasley MD PCP: Dr. Lavon Vicente MD Status:REG E R Location: ED HPI History of Present Illness Chief Complaint: Confusion Narrative Narrative: 47-year-old female, multiple medical problems, presents with reported confusion,and reported hypoxia. She states that she may have felt like she started feeling "confused" "this morning. She states that she is a resident of [facility], and they sent her in because they told her she was acting confused. She has had problems like this in the past when she has a urinary tract infection. In review of her EMR, she does have a suprapubic catheter. She denies any fevers or chills, but states, it nieves when she urinates. Additionally, it was reported that she was hypoxic at the alf but she denies any fevers or chills. No cough or shortness of breath. She states she wears 4 L of oxygen at all times and that started when COVID-19 started in 2019. She has chronic headaches, and states she has had a headache today. She presents for evaluation of her reported confusion. [facility] Medical History Abnormal EKG Chronic headaches Chronic pain Cocaine abuse Deep vein thrombosis of right lower extremity Depression Exogenous obesity Heroin use History of Pknjw-Oclbgrsjz-Ewgod (WPW) syndrome Hx: UTI (urinary tract infection) [...] bisacodyl 10 mg rectal suppository 10 mg NC QHS PRN Constipation 03/01/18 [History Last Taken [...] mcg/hour weekly transdermal patch (Butrans) 1 patch [id number] pain 06/04/22 [History Last Taken Unknown] cefdinir [...] no shortness of breath. Reported hypoxia at prison facility. Abdominal: No abdominal pain. No nausea. [...] she can be discharged back to the prison facility. Regarding her reported hypoxia, so only certain positions that she lies in, and she has been satting well on her nasal cannula oxygen here. Furthermore, I reviewed her alf paperwork independently and there is a DNR comfort care only order from the [facility]. I feel she be discharged back to the prison facility. Disposition is discharged in stable condition. [...] % (Auto) 58.0 Lymph % (Auto) 32.8 [place] % (Auto) 5.5 Eos % (Auto) 3.1 [...] Clarity Turbid Urine pH 7.0 Ur Specific Carrie 1.010 Urine Protein 30 H Urine Glucose [...] (Auto) Neut % (Auto) Lymph % (Auto) [place] % (Auto) Eos % (Auto) Baso % [...] Color Urine Clarity Urine pH Ur Specific Carrie Urine Protein Urine Glucose (UA) Urine Ketones Urine Occult Blood Urine Nitrite Urine Bilirubin Urine Urobilinogen Ur Leukocyte Esterase Urine RBC Urine WBC Ur Squamous Epith Cells Amorphous Sediment Urine Bacteria Urine Mucus Radiography Diagnostic Testing: Clinical Impression(s) from Imaging Studies Brain CT 07/24/22 19:14 IMPRESSION: No acute intracranial findings. Electronically Signed: Bradley Matthews MD at 20:54 EST Reading Location ID and State: [facility] / [place] Tel , Service support , Chest X-Ray 07/24/22 19:54 IMPRESSION: No [...] Pain) bisacodyl 10 MG suppository 10 mg NC QHS PRN (Reason: Constipation) omeprazole 20 MG [...] - As soon as possible Disposition Disposition: Nursing Home Facility Discharge Location: [facility] What to do if you have Problems For any increased pain, shortness of breath, bleeding, nausea or vomiting, chestpain, or any unexpected problems, contact your Primary Care Provider. Call [facility] ([phone]) or report to the closest Emergency Room. Call 911 if necessary. 07/24/222147 <Electronically signed by Marc Beasley MD> Cosigner Signature (if applicable): CC: Dr. Lavon Vicente MD ~ Signed [facility] Work Phone: 1(746) 597-790002-14-2022 Hospital Discharge instructions Patient Education 07/28/2021 17:04:30 -[facility] Discharge Instructions Template (03/2018)(CUSTOM) JUAN JOSE [...] us better serve our patients. Form: 1522 (92272) R: 09/20 Follow Up Care 05/19/2021 14:15:41 With:MAGDY VOGT MD, [facility], Urology Service Address: [phone] When: Unknown Comments:Follow-up as scheduled [facility] 08-04-2021 Evaluation + Plan note Future Appointments Future Scheduled Tests Laboratory* Basic Metabolic Panel 01/15/21 * Basic Metabolic Panel 04/30/21 * Urine Culture 04/30/21 * Complete Blood Count 04/30/21 Radiology* XR Abdomen AP 01/15/21 [facility] 08-04-2021 Evaluation + Plan note Future Scheduled Tests Laboratory* Basic Metabolic Panel 01/15/21 * Basic Metabolic Panel 04/30/21 * Urine Culture 04/30/21 * Complete Blood Count 04/30/21 Radiology* XR Abdomen AP 01/15/21 * XR Abdomen AP 09/08/21 [facility] Consult note Author Kristy Crawford [facility] July 08, 2023 1:38pm Note Date/Time July 08, 2023 1 :38pm [facility] Medical Records Department [address] [place] [address] Counseling Note - Pharmacy 07/08/23 1338 MR#: [id number] Acct: [id number] Name: HENRIK REED Rep #:[id number] : 1975 48 From: Kristy Crawford PCP: Dr. Lavon Vicente MD Status:ADM I N Y Location: [place] [address] Pharmacy [place] Med Reconciliation Pharmacy Service has performed discharge [...] bisacodyl 10 mg rectal suppository 10 mg NC QHS PRN Constipation 03/01/18 omeprazole 20 mg [...] Signature (if applicable): Date CC: ~ Signed [facility] Work Phone: Consult note Author [facility]o [facility] Note Date/Time March 02, 2025 12:48pm [facility] Medical Records Department [address] [place] [address] Anesthesia Postop Eval I 03/02/25 1246 MR#: [id number] Acct: [id number] Name: HENRIK REED Rep #:[id number] : 1975 50 From: Charo Joseph CRNA PCP: Dr. Lavon Vicente MD Status:REG S DC Y Race: C Location: [place] [address] Anesthesia: Postop Eval I Current Vital Signs Temperature: 97.7 F Pulse Rate: 90 Blood Pressure: 106/69 Respiratory Rate: 12 Pulse Ox: 90 Oxygen Delivery Method: Room Air Assessment Airway patent: Yes Spontaneous unlabored respirations: Yes Mental status: Awake and Calm nausea: No Vomiting: No Anesthesia Complication: No Fluid Hydration Crystalloid volume administer (ml): 300 Total IV fluid infused: 300 Progress Note Anesthesia document: Postop Eval 1 completed: Yes 03/02/25 1248 <Electronically signed by Charo levy CRNA> Date _ Charo Joseph CRNA Cosigner Signature: Date CC: ~ Signed [facility] Work Phone: Consult note Author Corey Lauren [facility] Note Date/Time March 02, 2025 1:23pm [facility] Medical Records Department [address] [place] [address] Anesthesia Postop Eval II 03/02/25 1322 MR#: [id number] Acct: [id number] Name: HENRIK REED Rep #:[id number] : 1975 50 From: Corey Lauren MD PCP: Dr. Lavon Vicente MD Status:REG S DC Y Race: C Location: [place] [address] Anesthesia Postop Eval I Sum Postop Eval Completion status Anesthesia document: Postop Eval 1 completed: Yes Anesthesia Postop Eval I Summary Anesthesia Postop Eval I Summary: Anesthesia Postop Eval I: Assessment Summary Airway patent Yes 03/02/25 12:48 HOSPITALITY TEAM MEMBER.JDEF Spontaneous unlabored Yes 03/02/25 12:48 HOSPITALITY TEAM MEMBER.JDEF respirations Mental status Awake,Calm 03/02/25 12:48 HOSPITALITY TEAM MEMBER.JDEF nausea No 03/02/25 12:48 HOSPITALITY TEAM MEMBER.JDEF Vomiting No 03/02/25 12:48 HOSPITALITY TEAM MEMBER.JDEF Anesthesia Postop Eval I: Fluid Summary Crystalloid volume administer 300 03/02/25 12:48 HOSPITALITY TEAM MEMBER.JDEF (ml) Colloids volume administered ( ml) Blood Product volume administered (ml) Total IV fluid infused 300 03/02/25 12:48 HOSPITALITY TEAM MEMBER.JDEF Anesthesia Postop Eval I: Summary Notes Anesthesia Complication No 03/02/25 12:48 HOSPITALITY TEAM MEMBER.JDEF Anesthesia Complication Comment: Post-operative progress note Anesthesia: Postop Eval II Evaluation Mental status: Awake Pain Level: 3 nausea: No Vomiting: No 03/02/25 1323 <Electronically signed by Corey Lauren MD > Date _ Corey Ahuja Signature: Date CC: ~ Signed [facility] Work Phone: Discharge summary Author Raad Hope [facility] July 08, 2023 12:19pm Note Date/Time July 08, 2023 1 2:10pm [facility] Medical Records Department [address] [place] [address] Transfer to [facility] MR#: [id number] Acct: [id number] Name: HENRIK REED Rep #:[id number] : 1975 48 From: Raad Whaley PCP: Dr. Lavon Vicente MD Status:ADM I N Certification of patient admission REQUIRED AT TIME OF ADMISSION. I CERTIFY THAT POST-HOSPITAL F SERVICES ARE REQUIRED TO BE GIVEN ON AN IN-PATIENT BASIS BECAUSE OF THE ABOVE NAMED PATIENT'S NEED FOR FPC CARE ON A CONTINUING BASIS FOR THE CONDITION(S) FOR WHICH HE/SHE WAS RECEIVING IN-PATIENT HOSPITAL SERVICES PRIOR TO HIS/HER TRANSFER TO THE [facility]. 07/08/23 1219<Electronically signed by Raad Hope MD> [...] Status: Acute Code(s): R56.9 - Unspecified convulsions Plan HENRIK REED, is a 48 F was admitted on 07/02/2023 from [facility] for altered mental status. [...] fever) bisacodyl 10 MG suppository 10 mg NC QHS PRN (Reason: Constipation) omeprazole 20 MG [...] in before D/C Order can be placed): Nursing Home Facility 07/08/23 1219 <Electronically signed by Raad [...] Jacklyn Queen DO; Klaudia Mercado MD ~ [facility] Work Phone: Discharge summary Author Raad Hope [facility] July 08, 2023 12:56pm Note Date/Time July 08, 2023 1 2:56pm [facility] Medical Records [facility] [address] [facility] [place] [address] Discharge Summary 07/08/23 1250 MR#: [id number] Acct: [id number] Name: HENRIK REED Rep #:[id number] : 1975 48 From: Raad Whaley PCP: Dr. Lavon Vicente MD Status:ADM I N Location: [facility] [place] [address] Providers Date of Admission: 07/03/23 Date of [...] of Tele-Neurology Consult: Yes 07/03/23 00:50 Consult: Panelbeater / Pulmonary Medicine Routine Consulting Provider: Intensivists/Pulmonary [...] Notified: 06:53 Method of Notification: Answering Service 01/23/24 13:43 Consult: Urology Routine Consulting Provider: Flaco Choi Reason for Consult: Multiple stones in the urinary bladder and urethra. Indwelling suprapubic EMERGENT Consult: No MD Notified: Yes Date Notified: 07/06/23 Time Notified: 13:43 Method of Notification: Text Reason For Visit: UTI WITH SEPSIS AND SEPTIC ENCEPHALOPATHY Diagnosis Discharge Diagnosis (1) Seizure: Status: Acute Code(s): R56.9 - Unspecified convulsions Plan HENRIK REED, is a 48 F was admitted on 07/02/2023 from [facility] for altered mental status. Per daughter she [...] size was done and a new 22 Kinyarwanda suprapubic catheter was inserted. Successful removal of [...] Reading Location ID and State: [id number] / [employer] , Service support , Brain CT [...] bisacodyl 10 mg rectal suppository 10 mg NC QHS PRN Constipation 03/01/18 omeprazole 20 mg [...] % (Auto) 56.9, Lymph % (Auto) 34.4, [place] % (Auto) 7.6, Eos % (Auto) 0.0, [...] fever) bisacodyl 10 MG suppository 10 mg NC QHS PRN (Reason: Constipation) omeprazole 20 MG [...] in before D/C Order can be placed): Nursing Home Facility Charges/Coding Visit Charges Inpatient E&M: 43083 Disch Hosp >30min 07/08/23 1256 <Electronically signed by Raad Hope MD> Cosigner Signature (if applicable): CC: Dr. Lavon Vicente MD; Dr. Raad Hope MD~ Signed [facility] Work Phone: Evaluation + Plan note Future Appointments Appointment Date:04/30/2021 01:40:00 PM Scheduled Provider:LONI PAGE Location:[facility] Appointment Type:URO OV Future Scheduled Tests Laboratory* Basic Metabolic Panel 01/15/21 Radiology* XR Abdomen AP 01/15/21 [facility] Evaluation + Plan note Future Appointments Appointment Date:06/21/2023 02:40:00 PM Scheduled Provider:LONI PAGE Location:UROLOGY Appointment Type:URO OV Future Scheduled Tests Radiology* CT Abdomen and Pelvis w/o contrast 04/21/23 [facility] evaluation + Plan note Future Appointments Appointment Date:02/02/2024 03:00:00 PM Scheduled Provider:LONI PAGE Location:UROLOGY Appointment Type:URO OV Future Scheduled Tests Radiology* XR Abdomen AP 02/02/24 * US Renal 09/02/23 [facility] Evaluation + Plan note Future Appointments Appointment Date:02/02/2024 03:00:00 PM Scheduled Provider:LONI PAGE Location:UROLOGY Appointment Type:URO OV [facility] Evaluation + Plan note Future Appointments Appointment Date:03/17/2024 10:20:00 AM Scheduled Provider:CHERIE RENEE MD Location:UROLOGY Appointment Type:URO OV Post Op Future Scheduled Tests Laboratory* Basic Metabolic Panel 02/02/24 * Complete Blood Count 02/02/24 [facility] evaluation noteNo assessment information available [facility] Work Phone: evaluation note* Diagnosis Onset Date Resolution Status Encephalopathy acute Pneumonia acute Urinary tract infection acut e Quadriparesis chronic Spinal cord injury 2010 chronic [facility] Work Phone: evaluation note* Diagnosis Onset Date Resolution Status Altered mental status acute Encephalopathy acute Pneumonia acute Urinary tract infection acut e Quadriparesis chronic Spinal cord injury 2010 chronic [facility] Work Phone: evaluation note* Diagnosis Onset Date Resolution Status Pneumonia acute Urinary tract infection acut e Quadriparesis chronic Spinal cord injury 2010 chronic Altered mental status resolv ed Encephalopathy resolved [facility] Work Phone: evaluation note* Diagnosis Onset Date Resolution Status Pneumonia acute Urinary tract infection acut e Quadriparesis chronic Spinal cord injury 2010 chronic Altered mental status resolv ed Encephalopathy resolved Pneumonia acute [facility] Work Phone: Evaluation note* Diagnosis Onset Date Resolution Status Pneumonia acute Urinary tract infection acut e Quadriparesis chronic Spinal cord injury 2010 chronic Altered mental status resolv ed Encephalopathy resolved Pneumonia resolved [facility] Work Phone: evaluation note* Diagnosis Bladder stones- Primary Other calculus in bladder Paraplegia (HCC) [facility] Onset Date Resolution Status Pneumonia resolved [facility] Work Phone: Evaluation note* Diagnosis Onset Date Resolution Status Pneumonia resolved UTI (urinary tract infection) acute Quadriparesis chronic Suprapubic catheter chronic [facility] Work Phone: evaluation note* Diagnosis Onset Date Resolution Status Pneumonia resolved Candidiasis acute UTI (urinary tract infection) acute VRE infection (vancomycin resistant Enterococcus) acute Quadriparesis chronic Suprapubic catheter chronic [facility] Work Phone: Evaluation note* Diagnosis Onset Date Resolution Status Candidiasis acute UTI (urinary tract infection) acute VRE infection (vancomycin resistant Enterococcus) acute Quadriparesis chronic Suprapubic catheter chronic [facility] Work Phone: Evaluation note* Diagnosis Onset Date Resolution Status Seizure acute [facility] Work Phone: Evaluation note* Diagnosis Onset Date Resolution Status Seizure acute Sepsis acute UTI (urinary tract infection) acute VRE infection (vancomycin resistant Enterococcus) acute [facility] Work Phone: Evaluation note* Diagnosis Onset Date Resolution Status UTI (urinary tract infection) acute VRE infection (vancomycin resistant Enterococcus) acute Sepsis resolved [facility] Work Phone: History and physical note Author Dr. Pastor [facility] September 12, 2022 3:13pm Note Date/Time September 12, 2022 2:55 pm [facility] Medical Records Department [address] [place] [address] H&P Exam - Hospitalist 09/12/22 1449 MR#: [id number] Acct: [id number] Name: HENRIK REED Rep #:[id number] : 1975 47 From: Shari Pastor MD PCP: Dr. Lavon Vicente MD Status:ADM I N Location: [place] [address] HPI - General General Date of Admission: 09/12/22 Date of Service: 09/12/22 Chief Complaint: SOB HPI Narrative Ms. Reed is a 47-year-old female with a history of paraplegia since 2010 with a suprapubic catheter and history of UTIs as well as DVT of right lower extremity, and morbid obesity who presented to [facility] from alf 09/12 due to shortness of breath for [...] at present or other wounds of note. 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 Enlarged steatotic liver. Electronically Signed: tSeven Rodney MD at 12:23 EDT , Assessment [...] documentation, 60minutes Charges/Coding Visit Charges Inpatient E&M: 05088 Init Hosp L2 09/12/22 1513 <Electronically signed by Shari Pastor MD> Cosigner Signature (if applicable): CC: Dr. Shari Pastor MD; Dr. Lavon Vicente MD~ Signed [facility] Work Phone: Hospital course Narrative No data available for this section [facility] Hospital Discharge instructions No data available for this section [facility] Hospital Discharge instructions Additional Instructions You will have an order for antibiotics when you return to [facility]. [facility] Work Phone: Hospital Discharge instructions Additional Instructions Hemoglobin is stable today. While you are having bleeding from your vagina the exact cause is not clear. I spoke with the adult neurologist who recommends follow-up in the next week or so. If you start passing large lots multiple times, soak through a pad an hour for 2 to 3 hours in a row, become lightheaded or have a change in vital signs please return to the emergency room. Otherwise you should be able to follow-up with a adult neurologist.[facility] Work Phone: Progress note No data available for this section [facility] Reason for referral (narrative)* Diagnostic Procedure Only (Routine) - Authorized Specialty Diagnoses / Procedures Referred By Contac t Referred To Contact US IMAGING Diagnoses Bladder stones Procedures US KIDNEY/BLADDER US RETROPERITONEAL REAL TIME W/IMAGE COMPLETE Rosa Maria Martinez PA-C [address] [place] [address] Us Imaging Referral ID Status Reason Start Date Expiration Date Visits Requested Visits Authorized [id number] Authorized Auto-Generat ed Referral 10/06/2022 11/05/2023 1 [facility]No reason for referral [facility] Work Phone: Chief Complaint and Reason for Visit Chief Complaint FPC LABWORK ALT LOC FPC LAB WORK FPC LAB WORK FPC LABWORK Chief Complaint FPC LAB WOR K FPC LABWORK FPC LABWORK Chief Complaint FPC LABWORK FPC LAB WORK Chief Complaint FPC LABWORK FPC LAB WORK FPC LABWORK FPC LAB WORK Chief Complaint FPC LAB WOR K FPC LABWORK FPC LAB WORK FPC LAB WORK Chief Complaint FPC LAB WOR K FPC LABWORK FPC LAB WORK FPC LAB WORK FPC LABWORK Chief Complaint FPC LABWORK FPC LAB WORK FPC LAB WORK FPC LABWORK FPC LAB WORK Chief Complaint FPC LAB WOR K FPC LAB WORK FPC LABWORK FPC LAB WORK FPC LAB WORK Chief Complaint FPC LAB WOR K FPC LABWORK FPC LAB WORK FPC LAB WORK AMS Reason for Visit Encephalopathy Pneumonia Urinary tract infection Quadriparesis Spinal cord injury Chief Complaint FPC LAB WOR K FPC LABWORK FPC LAB WORK FPC LAB WORK AMS AMS AMS AMS Reason for Visit Altered mental statu s Encephalopathy Pneumonia Urinary tract infection Quadriparesis Spinal cord injury Chief Complaint FPC LAB WOR K AMS AMS AMS AMS FPC LABWORK CONFUSION Reason for Visit Pneumonia Urinary tract infection Quadriparesis Spinal cord injury Altered mental status Encephalopathy Chief Complaint AMS AMS AMS AMS FPC LABWORK CONFUSION UTI, PNA Reason for Visit Pneumonia Urinary tract infection Quadriparesis Spinal cord injury Altered mental status Encephalopathy Pneumonia Chief Complaint AMS AMS AMS AMS FPC LABWORK CONFUSION UTI, PNA UTI, PNA UTI, PNA Reason for Visit Pneumonia Urinary tract infection Quadriparesis Spinal cord injury Altered mental status Encephalopathy Pneumonia Chief Complaint AMS AMS AMS FPC LABWORK CONFUSION UTI, PNA UTI, PNA UTI, PNA LABWORK FPC LABWORK Reason for Visit Pneumonia Urinary tract infection Quadriparesis Spinal cord injury Altered mental status Encephalopathy Pneumonia Chief Complaint FPC LABWORK CONFUSION UTI, PNA UTI, PNA UTI, PNA LABWORK FPC LABWORK Reason for Visit Pneumonia Chief Complaint CONFUSION UTI, PNA UTI, PNA UTI, PNA LABWORK FPC LABWORK ALT LOC Hematuria Reason for Visit Pneumonia Chief Complaint CONFUSION UTI, PNA UTI, PNA UTI, PNA LABWORK FPC LABWORK ALT LOC Hematuria FPC LABWORK Reason for Visit Pneumonia Chief Complaint CONFUSION UTI, PNA UTI, PNA UTI, PNA LABWORK FPC LABWORK ALT LOC Hematuria FPC LABWORK UTI Reason for Visit Pneumonia UTI (urinary tract infection) Quadriparesis Suprapubic catheter Chief Complaint CONFUSION UTI, PNA UTI, PNA UTI, PNA LABWORK FPC LABWORK ALT LOC Hematuria FPC LABWORK UTI Urinary tract infection Urinary tract infection Reason for Visit Pneumonia Candidiasis UTI (urinary tract infection) VRE infection (vancomycin resistant Enterococcus) Quadriparesis Suprapubic catheter Chief Complaint ALT LOC Hematuria FPC LABWORK UTI Urinary tract infection Urinary tract infection Vaginal Bleeding Reason for Visit Candidiasis UTI (urinary tract infection) VRE infection (vancomycin resistant Enterococcus) Quadriparesis Suprapubic catheter Chief Complaint ALT LOC Hematuria FPC LABWORK UTI Urinary tract infection Urinary tract infection FPC LABWORK Vaginal Bleeding Reason for Visit Candidiasis UTI (urinary tract infection) VRE infection (vancomycin resistant Enterococcus) Quadriparesis Suprapubic catheter Chief Complaint ALT LOC Hematuria FPC LABWORK UTI Urinary tract infection Urinary tract infection FPC LABWORK Vaginal Bleeding FPC LAB WORK FPC LAB WORK Reason for Visit Candidiasis UTI (urinary tract infection) VRE infection (vancomycin resistant Enterococcus) Quadriparesis Suprapubic catheter Chief Complaint ALT LOC Hematuria FPC LABWORK UTI Urinary tract infection Urinary tract infection FPC LABWORK Vaginal Bleeding FPC LAB WORK FPC LAB WORK LABWORK Reason for Visit Candidiasis UTI (urinary tract infection) VRE infection (vancomycin resistant Enterococcus) Quadriparesis Suprapubic catheter Chief Complaint FPC LAB WOR K SEPSIS, UTI, AMS Reason [...] UTI WITH SEPSIS AND SEPTIC ENCEPHALOPATHY LABWORK FPC LAB WORK Reason for Visit UTI (urinary [...] UTI WITH SEPSIS AND SEPTIC ENCEPHALOPATHY LABWORK FPC LAB WORK FPC LAB WORK Reason for Visit UTI (urinary [...] UTI WITH SEPSIS AND SEPTIC ENCEPHALOPATHY LABWORK FPC LAB WORK FPC LAB WORK LABWORK Reason for Visit UTI [...] UTI WITH SEPSIS AND SEPTIC ENCEPHALOPATHY LABWORK FPC LAB WORK FPC LAB WORK LABWORK LABWORK Reason for Visit [...] UTI WITH SEPSIS AND SEPTIC ENCEPHALOPATHY LABWORK FPC LAB WORK FPC LAB WORK LABWORK LABWORK FPC LAB WORK LABWORK UTI Reason for Visit UTI (urinary tract i nfection) VRE infection (vancomycin resistant Enterococcus) Sepsis Chief Complaint Admit Date FPC LAB WORK June 12 5:00am FPC LAB WORK July 03, 2024 7:50am FPC LAB WORK July 05, 2024 4:00pm LABWORK July 07, 2024 5 :00am LABWORK July 14, 2024 5 :00am FPC LAB WORK July 25 5:00am FPC LAB WORK September 06, 2024 5 :00am Chief Complaint Admit Date FPC LAB WORK July 03, 2024 7:50am FPC LAB WORK July 05, 2024 4:00pm LABWORK July 07, 2024 5 :00am LABWORK July 14, 2024 5 :00am FPC LAB WORK July 25 5:00am FPC LAB WORK September 06, 2024 5 :00am LABWORK October 06, 2024 6:4 0am Chief Complaint Admit Date LABWORK December 04, 2024 5:00 am FPC LAB WORK December 05, 2024 5: 00am FPC LAB WORK December 19, 2024 5:0 0am LAB WORK December 26, 2024 5:00 am FPC LAB WORK February 21 1:08pm Family History No Family History Records Found [...] Will Yes May 27 7:33pm Power of Metal Mockup Maker Yes May 27, 2021 7:33pm Advance Directive Response Recorded Date/ Time Advance Directives No March 16, 2019 11:32am Living Will Yes May 27 6:33pm Power of Metal Mockup Maker Yes May 27, 2021 6:33pm Advance Directive Response Recorded Date/ Time Name of Medical Power of Metal Mockup Maker ZARITRACY LOERA JOHNATHON June 03, 2022 6:13am Advance Directives No March 16, 2019 11:32am Living Will Yes June 03 6:13am Power of Metal Mockup Maker Yes June 03, 2022 6:13am Advance Directive Response Recorded Date/ Time Name of Medical Power of Metal Mockup Maker Zaritracy Loera johnathon June 03, 2022 8:58am Advance Directives No March 16, 2019 11:32am Living Will No June 03 022 8:58am Power of Metal Mockup Maker Yes June 03, 2022 8:58am Advance Directive Response Recorded Date/ Time Name of Medical Power of Metal Mockup Maker Zari Alvarado June 03, 2022 8:58am Name of Medical Power of Metal Mockup Maker ZARI ALVARADO- DAUGHTER July 24, 2022 7:19pm Advance Directives No March 16, 2019 11:32am Living Will No February 10th, 2 023 7:19pm Power of Metal Mockup Maker Yes July 24, 2022 7:19pm Advance Directive Response Recorded Date/ Time Name of Medical Power of Metal Mockup Maker Zari Alvarado June 03, 2022 9:58am Name of Medical Power of Metal Mockup Maker ZARI ALVARADO- DAUGHTER July 24, 2022 8:19pm Name of Medical Power of Metal Mockup Maker ZARI SERRANO- DAUGHTER September 12, 2022 9:29am Advance Directives No March 16, 2019 12:32pm Living Will Yes September 12, 2022 9:29am Power of Metal Mockup Maker Yes September 12 9:29am Advance Directive Response Recorded Date/ Time Name of Medical Power of Metal Mockup Maker Zari Alvaraod June 03, 2022 9:58am Name of Medical Power of Metal Mockup Maker ZARI ALVARADO- DAUGHTER July 24, 2022 8:19pm Name of Medical Power of Metal Mockup Maker ZARI SERRANO- DAUGHTER September 12, 2022 9:29am Advance Directives No March 16, 2019 12:32pm Living Will No September 12, 2022 4:26pm Power of Metal Mockup Maker No September 12 4:26pm Advance Directive Response Recorded Date/ Time Name of Medical Power of Metal Mockup Maker ZARI ALVARADO- DAUGHTER July 24, 2022 8:19pm Name of Medical Power of Metal Mockup Maker ZARI SERRANO- DAUGHTER September 12, 2022 9:29am Advance Directives No March 16, 2019 12:32pm Living Will No September 12, 2022 4:26pm Power of Metal Mockup Maker No September 12 4:26pm Advance Directive Response Recorded Date/ Time Name of Medical Power of Metal Mockup Maker ZARI ALVARADO- DAUGHTER July 24, 2022 8:19pm Name of Medical Power of Metal Mockup Maker ZARI SERRANO- DAUGHTER September 12, 2022 9:29am Advance Directives No March 16, 2019 12:32pm Living Will No November 09, 2022 2 :48pm Power of Metal Mockup Maker No November 09, 2022 2:48pm Advance Directive Response Recorded Date/ Time Name of Medical Power of Metal Mockup Maker ZARI ALVARADO- DAUGHTER July 24, 2022 8:19pm Name of Medical Power of Metal Mockup Maker ZARI SERRANO- DAUGHTER September 12, 2022 9:29am Advance Directives No March 16, 2019 12:32pm Living Will No November 14, 2022 8 :33pm Power of Metal Mockup Maker No November 14, 2022 8:33pm Advance Directive Response Recorded Date/ Time Name of Medical Power of Metal Mockup Maker ZARI ALVARADO- DAUGHTER July 24, 2022 8:19pm Name of Medical Power of Metal Mockup Maker ZARI SERRANO- DAUGHTER September 12, 2022 9:29am Advance Directives No March 16, 2019 12:32pm Living Will No November 15, 2022 1 2:56am Power of Metal Mockup Maker No November 15, 2022 12:56am Advance Directive Response Recorded Date/ Time Name of Medical Power of Metal Mockup Maker Dg January 26, 2023 8:12pm Advance Directives No March 16, 2019 12:32pm Living Will No January 26 8:12pm Power of Metal Mockup Maker Yes January 26, 023 8:12pm Advance Directive Response Recorded Date/ Time Advance Directives No March 16, 2019 11:32am Living Will No July 02 10:37pm Power of Metal Mockup Maker No July 02, 2023 10:37pm Advance Directive Response Recorded Date/ Time Advance Directives No March 16, 2019 12:32pm Living Will No July 02 11:37pm Power of Metal Mockup Maker No July 02, 2023 11:37pm Advance Directive Response Recorded Date/ Time Advance Directives No March 16, 2019 12:32pm Advance Directive Response Recorded Date/ Time Do you have a Healthcare Power of Metal Mockup Maker? No February 28, 2025 3:41pm Advance Directives No March 16, 2019 12:32pm [...] Status: Inactive Member Role Status Dates Dr. Laovn Vicente MD Primary Care Provider Active Lavon [...] Provider Active Lavon SERRANO Attending Provider Active Team Status: Inactive Member [...] MD Primary Care Provider Active Dr. Estevan gAuila DO Emergency Provider Active Dr. Shari Pastor MD Admit Provider, Other Provider A ctive Dr. Renzo Alva MD Attending Provider Active Dr. Paul Walsh MD Other Provider Active Team Status: Active Member Role Status Dates Dr. Lavon Vicente MD Primary Care Provider Active Lavon SERRANO Attending Provider Active Pipe Stripper Relationship Specialty Start Date End Date Lavon Vicente MD [address] [facility] [address] [place] [address] PCP - General Family Medicine 04/05/19 Patricia Guo [address] [facility] [place] [address] Referring Cardiology 03/13/19 Lavon Vicente MD [address] [place] [address] Referring Family Medicine 03/13/19 Team Status: Inactive [...] MD Primary Care Provider Active Dr. Christine Godman , DO Emergency Provider Active Team Status: Inactive Member Role Status Dates Dr. Lavon Vicente MD Primary Care Provider Active Dr. Christine Lee , DO Attending Provider, Emergency P brian Active Team Status: Inactive Member Role Status Dates Dr. Lavon Vicente MD Primary Care Provider Active Lavon Vicente OLS Attending Provider, Referring Provide r Active Team Status: Active Member Role Status Dates Dr. Lavon Vicente MD Primary Care Provider Active Dr. Estevan Aguila , DO Emergency Provider Active Dr. Renzo De Paz , DO Admit Provider , Attending Provider, Referring [...] Margarita Cortez MD Other Provider Active Dr. Aalna Cavazos MD Other Provider Active Dulce Livingston [...] Provider Active Dr. Francisco Pitts , Attending Provider Active Team Status: Active Member [...] Choi MD Other Provider Active Ronel Conte [facility] Attending Provider Active Team Status: Active Member [...] Roman Saunders MD Other Provider Active Dr. Keevn Joseph MD Other Provider Active Dr. Jes [...] Sharp MD Other Provider Active Dr. Heidi aCrmona MD Other Provider Active Klaudia Mercado MD [...] October 06, 2024 End: October 06, 2024 Team Status: Active Member Role/Relationship Status Dates Dr. Lavon Vicente MD Primary care physician Active Team Status: Active Member Role/Relationship Status Dates Dr. Lavon Vicente MD Primary care physician Active Start: December 04, 2024 Dr. Kori SERRANO MD Attending physician Active Start: December 04, 2024 Team Status: Active Member Role/Relationship Status Dates Dr. Lavon Vicente MD Primary care physician Active Start: December 05, 2024 Dr. Kori SERRANO MD Attending physician Active Start: December 05, 2024 Team Status: Active Member Role/Relationship Status Dates Dr. Lavon Vicente MD Primary care physician Active Start: December 19, 2024 Dr. Kori SERRANO MD Attending physician Active Start: December 19, 2024 Team Status: Active Member Role/Relationship Status Dates Dr. Lavon Vicente MD Primary care physician Active Start: December 26, 2024 Dr. Kori SERRANO MD Attending physician Active Start: December 26, 2024 Team Status: Active Member Role/Relationship Status Dates Dr. Lavon Vicente MD Primary care physician Active Start: February 21, 2025 Dr. Kroi SERRANO MD Attending physician Active Start: February 21, 2025 Team Status: Active Member Role/Relationship Status Dates Dr. Lavon Vicente MD Primary care physician Active Start: February 27, 2025 Dr. Kori SERRANO MD Attending physician Active Start: February 27, 2025 Team Status: Inactive Member Role/Relationship Status Dates Dr. Lavon Vicente MD Primary care physician Active Start: March 02, 2025 End: March 02, 2025 Dr. Kenia Hammond MD Attending physician Active Start: March 02, 2025 End: March 02, 2025 Dr. Kenia Hammond MD Referring Provider Active Start: March 02, 2025 End: March 02, 2025 Team Status: Inactive Member Role/Relationship Status Dates Dr. Lavon Vicente MD Primary care physician Active Start: December 05, 2024 End: December 05, 2024 Dr. Kori SERRANO MD Attending physician Active Start: December 05, 2024 End: December 05, 2024 Source Comments (unrecognize d section and content) In the event this informatio n is protected by the Federal Confidentiality of Alcohol and Drug Abuse Patient Records regulations: The Federal rules restrict any use of the information to criminally investigate or prosecute any alcohol or drug abuse patient.[facility] Reason for Visit (unrecogniz ed section and content) Reason Comments New Patient INFORMATION SOURCE (unrecogn ized section and content) DATE CREATED AUTHOR 11/23/2022 [facility] DATE CREATED AUTHOR AUTHOR'S ORGANIZ ATION 02/04/2024 [facility] DATE CREATED AUTHOR AUTHOR'S ORGANIZ ATION 04/14/2025 [facility] DATE CREATED AUTHOR AUTHOR'S ORGANIZ ATION 04/17/2025 [facility] FOR RECORDS PERTAINING TO PATIENTS WHO ARE [...] BE BASED ON THE PRIMARY CLINICAL RECORDS. [facility] [employer] [facility]. provides no warranty or guarantee of the accuracy or completeness of information in this document.
--- NOTE | 2025-04-21 06:26 | RAD_ITS ---
PROCEDURE: SHOULDER MIN 2 VIEWS 04/21/2025 REASON FOR EXAM: SHOULDER PAIN TECHNIQUE: Procedure Code: RADSH Modality: DX Procedure: SHOULDER MIN 2 VIEWS Laterality: Left COMPARISON: None. FINDINGS: Bones: No acute bony abnormalities. Joints: Well aligned. Soft tissues: No soft tissue abnormalities. RAD/Shoulder min 2 Views IMPRESSION: No acute osseous abnormalities. Reading Location: [id number]
[2025-04-21 07:02] VITALS: BP 102/62; PULSE 80; RESP 18; TEMP 36.6; O2SAT 97
== END 2025-04-21 08:23 | disposition home or self-care (01) ==
PROVIDERS: Emergency Provider Specialist/Technologist Athletic Trainer; PCP Internal Medicine; Visit Provider Specialist/Technologist Athletic Trainer
DX: M25.512 Pain in left shoulder (principal); G82.50 Quadriplegia, unspecified; R29.898 Other symptoms and signs involving the musculoskeletal system; G89.29 Other chronic pain; Z86.718 Personal history of other venous thrombosis and embolism; K21.9 Gastro-esophageal reflux disease without esophagitis; E03.9 Hypothyroidism, unspecified; Z86.14 Personal history of Methicillin resistant Staphylococcus aureus infection
CPT/HCPCS: 73030; 96372; 99285

== ENCOUNTER → 2025-05-22 | Outpatient (REF) | payer MEDICARE, MEDICAID, SELFPAY ==
--- OUTSIDE RECORDS SUMMARY | 2025-05-22 04:31 | XMS RPT_ITS | CCD ---
Author Organization [facility] Care Team Providers Care Manager Produce Name Role Phone PHYSICIAN, PATIENT UNSURE Primary Care Physician Unavailable Dr. Lavon Vicente Primary Care Provider Dr. Romero River Emergency Provider Simin, Dr. Shaw Admit Provider Simni, Dr. Shaw Attending Provider [facility], Dr. Shaw Other Provider Dr. Lavon Vicente Primary Care Provider Dr. Romero [facility] Valeria Hiit Provider [place], Dr. Shaw Attending Provider [facility], Dr. Shaw Other Provider Dr. Estevan Aguila Emergency Provider Dr. Shari Pastor Admit Provider Dr. Shari Pastor Attending Provider Dr. Shari Pastor Other Provider Dr. Renzo Alva Attending Provider Unavailable Dr. Renzo Alva Other Provider Unavailable Dr. Paul Walsh Other Provider [phone] Dr. Lavon Vicente Primary Care Provider Dr. Romero River Emergency Provider [place], Dr. Philip Admit Provider Dr. Valeria Duval Attending Provider [...] Provider Unavailable Dr. Sulaiman Hardin Other Provider [phone] Mesfin Van Other Provider Dr. Patricio Myers Other Provider Dr. Malik Fair Other Provider Dr. Margarita Cortez Other Provider Dr. Alana Cavazos Other Provider MD Dulce Livingston Other Provider [phone] Tawanda, [place] Yaya Other Provider MD Beba Lewis Other Provider [phone] MD NAIDA MCCARTHY Other Provider MD Anabell [...] Dr. Shelly Fernandez Other Provider Dr. John Mionr Other Provider Dr. Roman Saunders Other Provider Dr. Keven Joseph Other Provider [phone] Jes Dumont Other Provider [phone] Fernando Salcedo Other Provider Dr. Urbano Oquendo Other Provider [phone] Duane Reyna Other Provider Dr. Jono Sharp Other Provider Dr. Heidi Carmona Other Provider Unavailable MD Klaudia Mercado Other Provider Unavailable Dr. Shari Pastor Attending Provider Dr. Raad Hope Other Provider Dr. Raad Hope Attending Provider Dr. Flaco Choi Other Provider ENRRIQUE Conte-Gopal West Attending Provider NILE HAMILTON, DR DOLL R Primary Care Physician [phone] Dr. Lavon Vicente Primary Care Provider Dr. Estevan Aguila Emergency Provider Dr. Renzo De Paz Admit Provider Unavailabl e Dr. Renzo De Paz Referring Provider Unavail able Dr. Renzo De Paz Other Provider Unavailabl e Dr. Salas Ely Other Provider Dr. Zana Fish Other Provider Dr. Francisco Pitts Attending Provider Dr. Francisco Pitts Other Provider Dr. Benjamin Morse Other Provider [phone] Janett Stallings Other Provider [phone] Dr. Barrie Berkowitz Other Provider Dr. Tia [...] Other Provider Dr. Javier Alfredo Other Provider [phone] Shelly Fernandez Other Provider Dr. [...] LAVON Kapadia Primary Care Unavailabl e CAMILO KINCAIDTRIAL LAWYER, LONI Herron Attending Dylan VICENTE MD, DR LAVON Kapadia Primary Care Unavailabl e CAMILO GOLDENN-TRIAL LAWYER, LONI Herron Attending Dylan VICENTE MD, DR LAVON Kapadia Primary Care Unavailabl e CAMILO DIRECTOR PRODUCT MANAGEMENT-TRIAL LAWYER, LONI Herron Attending Unav ailable PHYSICIAN, PATIENT UNSURE Primary Care Unavai urmila PAGE APRN-TRIAL LAWYER, LONI Herron Attending Unav ailable PHYSICIAN, PATIENT UNSURE Primary Care Danie Vicente MD, Dr. Doll Primary Care Provider Navdeep HAMILTON, Dr. Sheikh Attending Provider Lyndon Hammond MD, Dr. Aquino Attending Provider Manish HAMILTON, Dr. Aquino Referring Provider Lavon Charles Attending Provider Sheryl Vicente MD, Dr. Doll Primary Care Provider Navdeep HAMILTON, Dr. Sheikh Attending Provider Lyndon Vicente MD, Dr. Doll Primary Care Physician Navdeep HAMILTON, Dr. Sheikh Attending Physician Betty Hammond MD, Dr. Aquino Attending Physician Mnaish HAMILTON, Dr. Aquino Referring Provider NILE HAMILTON, DR LAVON Kapadia Primary Care Physician CAMILO GARCIA, LONI Herron Attending Dylan VICENTE MD, DR LAVON Kapadia Primary Care Unavailsrinivas VICENTE MD, DR LAVON Kapadia Primary Care Unavailsrinivas PAGE DIRECTOR PRODUCT MANAGEMENT-TRIAL LAWYER, LONI Herron Attending Unav ailable Vicente, Lavon Primary Care Unavailable Basali, Ayman Referring Unavailable Basali, Ayman Attending Unavailable Vicente, Lavon Primary Care Unavailable Basali, Ayman Referring Unavailable Basali, Ayman Attending Unavailable Vicente, Lavon Primary Care Unavailable Gudla OLS, Kori Attending Unavailable Vicente, Lavon Primary Care Unavailable Gudla OLS, Kori Attending Unavailable Vicente, Lavon Primary Care Unavailable Gudla OLS, Kori Attending Unavailable Vicente, Lavon Referring Unavailable Vicente, Lavon Primary Care Unavailable Ana Childs Attending Unavailable Vicente, Lavon Primary Care Unavailable Gudla OLS, Kori Attending Unavailable Gudla, Kori Primary Care Unavailable Josué Astudillo Attending Unavailable Vicente, Lavon Primary Care Unavailable Vicente OLS, Lavon Attending Unavailable Vicente, Lavon Primary Care Unavailable Gudla OLS, Kori Attending Unavailable Gudla OLS, Kori Attending Unavailable Vicente, Lavon Primary Care Unavailable Vicente, Lavon Primary Care Unavailable Gudla OLS, Kori Attending Unavailable Vicente OLS, Lavon Attending Unavailable Vicente, [...] Vicente, Lavon Primary Care Unavailable Gudla OLS, Koir Attending Unavailable Allergies Allergy Classification Reported Allergen(s) Allergy Type Date of Onset Reaction(s) Facility (10 sources) Coconut extract; Translations: [Cocos nucifera (organism)] Drug Allergy RASH, CLOSES OFF AIRWAY [facility] (12 sources) Morphine; Translations: [morphine] Drug Allergy 05-15-20 15 Unknown [facility] (8 sources) Amoxicillin; Translations: [amoxicillin] Drug Allergy [facility] (8 sources) Penicillin; Translations: [penicillin] Drug Allergy [facility] (20 sources) apixaban; Translations: [APIXABAN] Drug Allergy 05-15-20 15 Unknown [facility] (20 sources) Coconut Oil Drug Allergy 09-13-19 cant breath [facility] (20 sources) Mometasone Drug Allergy 04-05-20 19 Unknown [facility] (20 sources) Nitrofurantoin; Translations: [NITROFURANTOIN] Drug Allergy 04-05-20 19 Unknown [facility] (20 sources) Penicillins; Translations: [Penicillins] Propensity to adverse reactions 09-13-19 NEEDS FOLLOW-UP [facility] (20 sources) rivaroxaban Drug Allergy 09-13-19 Rash [facility] (20 sources) Sulfonamides (Antibiotic); Translations: [SULFA (SULFONAMIDE ANTIBIOTICS)] Allergy to substance 04-05-20 Unknown [facility] (1 source) Mometasone; Translations: [MOMETASONE] Drug Allergy 04-05-20 [facility] Rep[facility] (1 source) apixaban Drug Allergy 04-21-20 [facility] Repository (1 source) Coconut Oil Drug Allergy 04-21-20 [facility] Repository (1 source) Mometasone Drug Allergy 04-21-20 [facility] Repository (1 source) Nitrofurantoin Drug Allergy 04-21-20 [facility] Repository (1 source) rivaroxaban Drug Allergy 04-21-20 [facility] Repository Medications Current Medications Medication [...] Refill(s) Start Date: 07/28/21 Status: Ordered Acidophilus-Pectin, Moodys 25 million cell -100 mg Tablet (2 sources) Start: 07-08-2023 take 1 tablet by mouth twice daily Acidophilus-Pectin, Moodys 25 million cell -100 mg Tablet Active [...] 2014 5:21pm take 2 tablets by mo [facility] every six hours as needed baclofen (LIORESAL) [...] Status: Ordered take 1 capsule by mo [facility] once daily Cetirizine 10 mg cap [...] Start: 08-08-2019 take 1 capsule by mo [facility] at lunch Cholecalciferol (Vitamin D3) 2,000 UNIT [...] bedtime. docusate sodium 50 mg / sennosides, fpc 8.6 mg oral tablet (20 sources) Start: [...] Lactobacillus rhamnosus GG (2 sources) Start: 9 [facility] oral tablet, chewable Chewed, qDay, 0 [...] 75 MCG tablet Active 75 ug [facility] May 28, 2015 1:00am hypothyroidism Complies with [...] 0 Start: 07-02-2023 take 1 capsule by [facility] once daily Linaclotide (Linzess) 145 mcg capsule [...] 1 tablet by yuliet th at bedtime Paroxetine Hcl 10 mg tablet Active 10 mg PO AT BEDTIME July 02, 2023 1:00am Complies with drug therapy Start: 07-02-2023 take 2 tablets by mo [facility] at bedtime Paroxetine Hcl 10 mg tablet [...] times daily as needed. polyethylene glycol 3350 02303 mg powder for oral solution (20 sources) [...] 1:16pm hypokalemia Start: 02-26-2021 Potassium Chlo ride (Ize-Giue-Kzu M10) 10 mEq oral tablet, extended release 0 Refill(s) Start Date: 02/26/21 Status: Ordered Medication Dispense Status: Completed Total Allowed Fills: 1 Fills Dispensed: 0 Start: 02-26-2021 Potassium Chlo ride (Shl-Ylrh-Vlf M10) 10 mEq oral tablet, extended release [...] A DAY August 16, 2018 1:00am sennosides, fpc 8.6 mg oral tablet (20 sources) Start: [...] Trazodone (19 sources) Serotonin Reuptake Inhibitor Start: 4 traZODone Oral, 0 Refill(s) Start Date: 08/04/23 [...] 2014 6:21pm one po bid with food Gdhkz-Wqko-Ipzxv-Angel ag-Mv-Min (Darío (With Collagen)) 1 PACKET Packet (20 sources) Start: End: take 1 dose by mouth twice daily at mealtime Oaxfs-Ndip-Rubyc-Col lag-Mv-Min (Darío (With Collagen)) 1 PACKET Packet Discontinued 1 PACKET PO TWICE DAILY WITH MEALS September 20, 2014 3:12pm October 01, 2014 3:29pm Start: 09-20-2014 End: 10-01-2014 take 1 dose by mouth twice daily at mealtime Wtigv-Qcxt-Krbjv-Sqwcmo-Ao-Osv (Darío (W ith Collagen)) 1 PACKET Packet Discontinued 1 NMA PO TWICE DAILY WITH MEALS 30 September 20, 2014 12:00am October 01, 2014 3:29pm Start: 09-20-2014 End: 10-01-2014 take 1 dose by mouth twice daily at mealtime Xeswv-Vunz-Mudkp-Edcnay-Np-Pbs (Darío (W ith Collagen)) 1 PACKET Packet Discontinued 1 NMA PO TWICE DAILY WITH MEALS September 20, 2014 12:00am October 01, 2014 3:29pm Start: 09-20-2014 End: 10-01-2014 take 1 dose by mouth twice daily at mealtime Opqro-Ilna-Jrsus-Cmcioh-Nt-Zvx (Darío (W ith Collagen)) 1 PACKET Packet Discontinued 1 PACKET PO TWICE DAILY WITH MEALS September 19, 2014 11:00pm October 01, 2014 2:29pm Start: 09-20-2014 End: 10-01-2014 take 1 dose by mouth twice daily at mealtime Plevy-Hzix-Fnpda-Wnausq-Wx-Huh (Darío (W ith Collagen)) 1 PACKET Packet [...] 10 M G suppository Active 10 mg DE AT BEDTIME as needed for Constipation March 01, 2018 12:00am Complies with drug therapy Start: 03-01-2018 take 10 mg rectal ro jerod every twenty-four hours as needed BISACODYL RECTAL [...] Quinolone Antimicrobial Start: 11-06-2022 End: 11-16-2022 take [id number] tablet by mouth twice daily Ciprofloxacin Hcl 500 mg tablet Discontinued 500 mg PO TWICE A DAY 20 November 06, 2022 12:00am November 16, 2022 [...] Start: 04-22-2021 take 2 tablets by mo [facility] three times daily Gabapentin 800 mg Tablet [...] by mouth once d aily. lactobacillus acidophilus [id number] unt / pectin 100 mg oral tablet (12 sources) Start: End: take 1 tablet by mouth twice daily Acidophilus-Pectin, Moodys 25 million cell -100 mg Tablet Discontinued 2 {tbl} PO TWICE A DAY 0 0 July 08, 2023 1:00am February 28, 2025 3:19pm Start: 04-22-2021 take 1 capsule by [facility] once daily Acidophilus-Pectin, Moodys (Acidophilus Probiotic) 100 million cell-10 mg Capsule Active 1 CAP PO DAILY April 22, 2021 8:50pm lactobacillus rhamnosus gg [id number] unt oral capsule (1 source) take 1 capsule by mouth once daily lactobacillus rhamnosus (CULTURELLE) 10 billion cell capsule Take 1 capsule by mouth once daily. 0 Active Comment on above: Take 1 capsule by [facility] once daily. levoFLOXacin 500 mg oral tablet (20 sources) Quinolone Antimicrobial Start: 11-10-19 End: 11-17-19 take 1 tablet by mouth once daily Levofloxacin 500 mg tablet Discontinued 500 mg PO DAILY 7 0 November 09, 2022 12:00am November 16, 2022 12:40pm lidocaine 0.05 mg/mg medicated patch (20 sources) Antiarrhythmic, Amide Local Anesthetic Start: 03-22-20 13 End: 04-24-20 Lidocaine 1 PATCH patch Discontinued 1 NMA TOPICAL DAILY 30 0 February 01, 2014 9:45am April 24, 2014 5:10pm Start: 03-22-2013 End: 04-24-2014 Start: 03-22-2013 End: 04-24-2014 apply 1 dose topically once daily Lidocaine Discontinued 1 PATCH TOPICAL DAILY 30 February 01, 2014 8:45am April 24, 2014 [...] NMA TOPICAL THREE TIMES A DAY 1 10 October 14, 2018 12:00am November 02, 2018 [...] 1 NMA TOPICAL TWICE A DAY 15 November 16, 2022 12:00am February 28, 2025 [...] 13, 2018 6:46am Start: 03-22-2013 End: 03-22-2013 [facility] Discontinued THREE TI MES A DAY March 22, 2013 6:34pm March 22, 2013 10:09pm Start: 03-22-2013 End: 03-22-2013 [facility] Discontinued THREE TI MES A DAY March 21, 2013 11:00pm March 22, 2013 9:09pm Start: 03-22-2013 End: 03-22-2013 [facility] Discontinued THREE TI MES A DAY March [...] HOURS NEEDED as needed for Severe Pain () 30 7 0 October 13, 2018 12:00am [...] May 08, 2014 1:55pm polyethylene glycol 3350 487082 mg / potassium chloride 2970 mg / sodium bicarbonate 6740 mg / sodium chloride 5860 mg / sodium sulfate 51412 mg powder for oral solution (1 source) [...] Chronic Comment on above: DRESSING CHANGES AT [facility] Complications of surgical procedures or medical care [...] te Episodic/Chronic Other aftercare (1 source) Other regular senior care provider (current) drug therapy; Translations: [Other retirement (current) drug therapy] Onset: 07-14-2024 Episodic Results Test Name Value Interpretation Reference Range Facility Emergency Department Summary on 04-21-2025 Emergency Department Summary [facility] Medical Records Department [address] [place] [address] Emergency Department Summary 04/21/25 MR#: [id number] Acct: [id number] Name: HENRIK REED Rep #: [id number] : 1975 50 From: Josué Astudillo DO PCP: Kori Sethi MD Status:REG ER Location: ED HPI History of Present Illness HPI Narrative: Patient was seen and examined after presenting to ED for left shoulder pain she states has been going on for almost a week she is coming from a facility she states that she has a history of quadriparesis even though she has full range of motion of her left shoulder at baseline but just has weakness in her hand itself that is her baseline she believes that it is multifactorial because of being lifted up in bed and being pulled in multiple directions and then being rolled over on the side I did receive a phone call from the nurse practitioner at the facility who informed me that they had taken x-rays earlier in the week which were negative and also informing that she is a chronic pain management patient as well. Chief Complaint: [facility] Medical History Gastric reflux History of stress test Lives in half-way On home oxygen therapy History of edema MRSA (methicillin resistant staph aureus) culture positive Seizure Neuromuscular dysfunction of bladder History of Hnpep-Njquerjyr-Fvxwl (WPW) syndrome Spinal cord injury (2010) Paraplegia Cocaine abuse Heroin use Chronic headaches Right ischial pressure sore, stage 4 Left femoral shaft fracture Deep vein thrombosis of right lower extremity Hypothyroidism Chronic pain Hx: UTI (urinary tract infection) Depression Suprapubic catheter Quadriparesis Home Medications ???Medication ???Instructions ???Recorded ???Last Taken ???Type levothyroxine 75 mcg tablet 75 mcg PO MOTUWETHFRSA 05/28/15 History hypothyroidism duloxetine 60 mg capsule,delayed 90 mg PO QHS depression 08/21/15 0 07/02/24 History release acetaminophen 325 mg tablet 650 mg PO Q4H PRN PRN Pain or feve r 03/01/18 04/21/21 History bisacodyl 10 mg rectal suppository 10 mg DE QHS PRN Constipation 04/21/21 History omeprazole 20 mg capsule,delayed 20 mg PO DAILY GERD 03/01/1807/02 History release furosemide 40 mg tablet 20 mg PO BREAKFAST edema 05/26/18 03/02/25 History cholecalciferol (vitamin D3) 50 2,000 unit PO DAILY SUPPLEMENT 07/02/24 History mcg (2,000 unit) capsule polyethylene glycol 3350 17 gram 17 gm PO QHS constipation 08/08/19 04/21/21 History oral powder packet docusate sodium 100 mg capsule 200 mg PO BID constipation 1 04/21/21 History (Colace) furosemide 20 mg tablet 20 mg PO QHS edema 04/21/21 History gabapentin 800 mg tablet 1,600 mg PO TID NEUROPATHY 1 03/02/25 History loperamide 2 mg tablet 1 mg PO Q4H PRN Diarrhea 06/03/22 Unknown History magnesium hydroxide 400 mg/5 mL 30 ml PO DAILY PRN Constipation 07/02/24 History oral suspension (Milk of Magnesia) melatonin 5 mg tablet 10 mg PO QHS PRN insomnia 06/03/22 07/02/24 History ondansetron HCl 4 mg tablet 4 mg PO Q4H PRN Nausea 06/03/22 Un known History simethicone 80 mg tablet 80 mg PO DAILY PRN Gastric Reflux 06/03/22 Unknown History benzonatate 100 mg capsule 100 mg PO Q6H PRN 07/02/23 Unknown History buspirone 10 mg tablet 10 mg PO QHS 07/02/23 07/02/24 His tory cetirizine 10 mg capsule (All Day 10 mg PO QHS allergies 07/02/23 0 07/03/24 History Allergy (cetirizine)) diphenhydramine HCl 25 mg tablet 50 mg PO Q8H PRN itching 07/02/23 Unknown History (Allergy (diphenhydramine)) linaclotide 145 mcg capsule 145 mcg PO DAILY constipation 06/1407/02/24 History (Linzess) paroxetine HCl 10 mg tablet 10 mg PO QHS 07/02/23 07/02/24 His tory baclofen 20 mg tablet 40 mg PO 4X/DAY 02/28/25 03/02/25 History buprenorphine 20 mcg/hour weekly 1 patch topical QWEEK 02/28/25 Unk nown History transdermal patch buspirone 7.5 mg tablet 7.5 mg PO DAILY 02/28/25 Unknown H istory carbamide peroxide 6.5 % ear drops 1 drp otic (ear) Q12H PRN itchin g 02/28/25 Unknown History (Debrox) clotrimazole 1 % topical cream 1 applic topical TID 02/28/25 Unkn own History isosorbide mononitrate 20 mg tablet 20 mg PO QHS 02/28/25 Unknown H istory levothyroxine 150 mcg tablet 150 mcg PO CANO 02/28/25 Unknown His tory potassium chloride 10 mEq 10 meq PO QHS 02/28/25 Unknown His tory capsule,extended release potassium chloride 10 mEq 20 meq PO DAILY hypokalemia Unknown History capsule,extended release sennosides 8.6 mg-docusate sodium 1 tab-cap PO DAILY PRN constipati on 02/28/25 Unknown History 50 mg tablet ( (more content not included)... Normal [facility] Shoulder min 2 Viewson 04-21 Shoulder min 2 Views [facility] Imaging Services [address] [place] [address] Shoulder min 2 Views MR#: [id number] Acct: [id number] Name: HENRIK REED Rep #: [id number] : 1975 F 50 From: Matthew Fernandes MD PCP: Kori Sethi MD Status: REG ER Study: Shoulder min 2 Views Date of Exam: 04/21/25 Exam# [id number] Ordering Dr: Josué Astudillo DO PROCEDURE: SHOULDER MIN 2 VIEWS 04/21/2025 REASON FOR EXAM: SHOULDER PAIN TECHNIQUE: Procedure Code: RAD Modality: DX Procedure: SHOULDER MIN 2 VIEWS Laterality: Left COMPARISON: None. FINDINGS: Bones: No acute bony abnormalities. Joints: Well aligned. Soft tissues: No soft tissue abnormalities. RAD/Shoulder min 2 Views IMPRESSION: No acute osseous abnormalities. Reading Location: [facility] CC: Dr. Josué Astudillo DO; Kori Sethi MD Roulette Dealer: Signed Normal [facility] Basic Metabolic Profile (BMP )on 03-22-2025 BUN/CRE 44.6 RATIO High 04-02 [facility] Comment on above: Performed By: #### L 400.0001, L500.2500, L100.0100, M100.2200 #### [facility] Laboratory [address] [place], [address] Calcium [Mass/Vol] 8.5 mg/dL Normal 7.6-11.0 [facility] Comment on above: Performed By: #### L 400.0001, L500.2500, L100.0100, M100.2200 #### [facility] [address] [place], [address] Chloride [Moles/Vol] 100 mmol/L Normal 98-108 [facility] Comment on above: Performed By: #### L 400.0001, L500.2500, L100.0100, M100.2200 #### [facility] Laboratory [address] [place], [address] CO2 [Moles/Vol] 30.3 mmol/L Normal 21.0-32.0 [facility] Comment on above: Performed By: #### L 400.0001, L500.2500, L100.0100, M100.2200 #### [facility] [address] [place], [address] Creatinine [Mass/Vol] 0.22 mg/dL Low 0.70-1.20 [facility] Comment on above: Performed By: #### L 400.0001, L500.2500, L100.0100, M100.2200 #### [facility] [address] [place], [address] GAP 10 Normal 5-15 [facility] Comment on above: Performed By: #### L 400.0001, L500.2500, L100.0100, M100.2200 #### [facility] [address] [place], [address] GFR/1.73 sq M.predicted among non-blacks MDRD (S/P/Bld) [Vol rate/Area] 138 mL/min/{1.73_m2} Normal >60 [facility] Comment on above: Result Comment: mL/m in/1.73m2 CKD-EPI Creatinine Equation (2020) Performed By: #### L 400.0001, L500.2500, L100.0100, M100.2200 #### [facility] [address] [place], [address] Glucose [Mass/Vol] 113 mg/dL High 70-99 [facility] Comment on above: Performed By: #### L 400.0001, L500.2500, L100.0100, M100.2200 #### [facility] [address] [place], [address] Potassium [Moles/Vol] 3.9 mmol/L Normal 3.3-5.1 [facility] Comment on above: Performed By: #### L 400.0001, L500.2500, L100.0100, M100.2200 #### [facility] [address] [place], [address] Sodium [Moles/Vol] 140 mmol/L Normal 133-145 [facility] Comment on above: Performed By: #### L 400.0001, L500.2500, L100.0100, M100.2200 #### [facility] [address] [place], [address] Urea nitrogen [Mass/Vol] 10 mg/dL Normal 4-19 [facility] Comment on above: Performed By: #### L 400.0001, L500.2500, L100.0100, M100.2200 #### [facility] [address] [place], [address] CBC-Complete Blood Cnt No Di ffon 03-22-2025 Erythrocyte distribution width (RBC) [Ratio] 15.0 % High 11.6-14.6 [facility] Comment on above: Performed By: #### L 400.0001, L500.2500, L100.0100, M100.2200 #### [facility] [address] [place], [address] Hematocrit (Bld) [Volume fraction] 32.3 % Low 37-47 [facility] Comment on above: Performed By: #### L 400.0001, L500.2500, L100.0100, M100.2200 #### [facility] [address] [place], [address] Hemoglobin (Bld) [Mass/Vol] 9.9 g/dL Low 12.0-15.0 [facility] Comment on above: Performed By: #### L 400.0001, L500.2500, L100.0100, M100.2200 #### [facility] [address] [place], [address] MCH (RBC) [Entitic mass] 25.3 pg Low 27.0-32.0 [facility] Comment on above: Performed By: #### L 400.0001, L500.2500, L100.0100, M100.2200 #### [facility] [address] [place], [address] MCHC (RBC) [Mass/Vol] 30.7 g/dL Low 32-36 [facility] Comment on above: Performed By: #### L 400.0001, L500.2500, L100.0100, M100.2200 #### [facility] [address] [place], [address] MCV (RBC) [Entitic vol] 82.6 fL Normal 81-99 [facility] Comment on above: Performed By: #### L 400.0001, L500.2500, L100.0100, M100.2200 #### [facility] [address] [place], [address] Platelet mean volume (Bld) [Entitic vol] 9.5 fL Normal 6.2-12.0 [facility] Comment on above: Performed By: #### L 400.0001, L500.2500, L100.0100, M100.2200 #### [facility] [address] [place], [address] Platelets (Bld) [#/Vol] 298 10*3/uL Normal 150-450 [facility] Comment on above: Performed By: #### L 400.0001, L500.2500, L100.0100, M100.2200 #### [facility] [address] [place], [address] RBC (Bld) [#/Vol] 3.91 10*6/uL Low 4.2-5.4 [facility] Comment on above: Performed By: #### L 400.0001, L500.2500, L100.0100, M100.2200 #### [facility] [address] [place], [address] RDW SD 45.5 fl High 35.1-43.9 [facility] Comment on above: Performed By: #### L 400.0001, L500.2500, L100.0100, M100.2200 #### [facility] [address] [place], [address] WBC (Bld) [#/Vol] 7.6 10*3/uL Normal 4.4-11.0 [facility] Comment on above: Performed By: #### L 400.0001, L500.2500, L100.0100, M100.2200 #### [facility] [address] [place], [address] Fluor Guidance for Spine Inj on 03-02-2025 Fluor Guidance for Spine Inj [facility] Imaging Services [address] [place] [address] Fluor Guidance for Spine Inj MR#: [id number] Acct: [id number] Name: HENRIK REED Rep #: [id number] : 1975 F 50 From: Roosevelt wall MD PCP: Dr. Lavon Vicente MD Status: [facility] Study: Fluor Guidance for Spine Inj Date of Exam: Exam# [id number] Ordering Dr: Kenia Hammond MD PROCEDURE: FLUOR [...] services provided for caudal block. Reading Location: [place] [address] CC: Dr. Kenia Hammond MD; Dr. 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 [facility] MR/POSTOP.[facility] 03-02-2025 MR/POSTOP.[facility] Medical Records Department [address] [place] [address] Anesthesia Postop Eval I 03/02/25 1246 MR#: [id number] Acct: [id number] Name: HENRIK REED Rep #: [id number] : 1975 50 From: Charo Joseph CRNA PCP: Dr. Lavon Vicente MD Status:REG [place] Y Race: C Location: [place] [address] Anesthesia: Postop Eval I Current Vital Signs [...] completed: Yes 03/02/25 1248 Date Charo Joseph CLAY MOLDER Cosigner Signature: Date CC: Signed Normal [facility] MR/[id number] 03-02-2025 MR/POSTOPAN2 [facility] Medical Records Department [address] [place] [address] Anesthesia Postop Eval II 03/02/25 1322 MR#: [id number] Acct: [id number] Name: HENRIK REED Rep #: [id number] : 1975 50 From: Corey Lauren MD PCP: Dr. 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 Spontaneous unlabored Yes 03/02/25 12:48 [email or web address] [email or web address] respirations Mental status Awake,Calm 03/02/25 12:48 [email or web address] [email or web address] nausea No 03/02/25 12:48 CLAY [email or web address].JDEF Vomiting No 03/02/25 12:48 CLAY [email or web address] Anesthesia Postop Eval I: Fluid Summary Crystalloid volume administer 300 03/02/25 12:48 CLAY [email or web address].JDEF (ml) Colloids volume administered ( ml) Blood Product volume administered (ml) Total IV fluid infused 300 03/02/25 12:48 [email or web address] [email or web address] Anesthesia Postop Eval I: Summary Notes Anesthesia Complication No 03/02/25 12:48 [email or web address] [email or web address] Anesthesia Complication Comment: Post-operative progress note Anesthesia: Postop Eval II Evaluation Mental status: Awake Pain Level: 3 nausea: No Vomiting: No 03/02/25 1323 Date Corey Lauren MD Cosigner Signature: Date CC: Signed Normal [facility] Calculated very low density lipoprotein (VLDL) cholesterol measurementOrdered By: Kori Sethi on 02-27-2025 Calculated very low density lipoprotein (VLDL) cholesterol measurement 32 mg/dL 5-40 [facility] LDL calc ser/plasOrdered By: Kori Sethi on 02-27-2025 Cholesterol in LDL [Mass/Vol] 100 mg/dL [facility] Comment on above: Wienwyshee=620-845 m g/dL & Higher Wwty=362 mg/dL or greaterFriedwald Equation for LDL-C Lipid Profileon 02-27-2025 CHOL:HDL 4.22 Normal [facility] Comment on above: Order Comment: 517.2 Performed By: #### L 400.0001, L500.2500, L100.0100, M100.2200 #### [facility] [address] [place], [address] Cholesterol [Mass/Vol] 172 mg/dL Normal <=200 [facility] Comment on above: Order Comment: 517.2 Result Comment: Chol esterol level, Desirable <200 mg/dL Borderline high cholesterol 200-239 mg/dL High cholesterol >=240 mg/dL Recommendations of the NCEP Adult Treatment Panel for the following risk-cutoff thresholds for the [place] population. Performed By: #### L 400.0001, L500.2500, L100.0100, M100.2200 #### [facility] [address] [place], [address] Cholesterol in HDL [Mass/Vol] 41 mg/dL Normal [facility] Comment on above: Order Comment: 517.2 Result Comment: Rosa onal Cholesterol Education Program (NCEP) guidelines: <40 mg/dL: Low HDL-cholesterol (major risk factor for CHD) >= 60 mg/dL: High HDL-cholesterol (negative risk factor for CHD) HDL-cholesterol is affected by a number of factors, e.g. smoking, exercise, hormones, sex and age. Performed By: #### L 400.0001, L500.2500, L100.0100, M100.2200 #### [facility] [address] [place], [address] Cholesterol in LDL [Mass/Vol] 100 mg/dL Normal [facility] Comment on above: Order Comment: 517.2 Result Comment: Bord ggliiv=376-504 mg/dL Higher Ofqu=502 mg/dL or greater Friedwald Equation for LDL-C Performed By: #### L 400.0001, L500.2500, L100.0100, M100.2200 #### [facility] [address] [place], [address] Cholesterol in VLDL [Mass/Vol] 32 mg/dL Normal 5-40 [facility] Comment on above: Order Comment: 517.2 Performed By: #### L 400.0001, L500.2500, L100.0100, M100.2200 #### [facility] [address] [place], [address] Triglyceride [Mass/Vol] 158 mg/dL Normal [facility] Comment on above: Order Comment: 517.2 Result Comment: The drugs N-Acetylcysteine and Metamizole may falsely depress this assay. Normal range: <150 mg/dL Borderline High: 150-199 mg/dL High: 200-499 mg/dL Very High: >500 mg/dL Performed By: #### L 400.0001, L500.2500, L100.0100, M100.2200 #### [facility] [address] [place], [address] Screening total cholesterol/ high density lipoprotein (HDL) cholesterol ratioOrdered By: Kori Sethi on 02-27-2025 Cholesterol.total/Briana sterol in HDL [Mass ratio] 4.22 {ratio} [facility] Serum or plasma cholesterol in HDL measurement (mass/volume)Ordered By: Kori Sethi on 02-27-2025 Cholesterol in HDL [Mass/Vol] 41 mg/dL >40 [facility] Comment on above: National Cholesterol Education Program (NCEP) guidelines:<40 mg/dL: Low HDL-cholesterol (major risk factor for CHD)>= 60 mg/dL: High HDL-cholesterol (negative risk factor for CHD)HDL-cholesterol is affected by a number of factors, e.g. smoking, exercise, hormones, sex and age. Serum or plasma cholesterol measurement (mass/volume)Ordered By: Kori Sethi on 02-27-2025 Cholesterol [Mass/Vol] 172 mg/dL <201 [facility] Comment on above: Cholesterol level, D esirable <200 mg/dLBorderline high cholesterol 200-239 mg/dLHigh cholesterol >=240 mg/dLRecommendations of the NCEP Adult Treatment Panel for the following risk-cutoff thresholds for the [place] population. T4 Total, Thyroxinon 025 T4 [Mass/Vol] 8.2 ug/dL Normal 4.8-13.9 [facility] Comment on above: Order Comment: 517.2 Performed By: #### L 400.0001, L500.2500, L100.0100, M100.2200 #### [facility] [address] [place], [place], [id number] TSH DL <= 0.005 mIU/L QnOrde red By: Kori Sethi on 02-27-2025 TSH Qn 3.120 uIU/mL 0.300-4.200 [facility] Thyroid Stim Hormone (TSH)on 02-27-2025 TSH 3.120 uIU/mL Normal 0.300-4.200 [facility] Comment on above: Order Comment: 517.2 Performed By: #### L 400.0001, L500.2500, L100.0100, M100.2200 #### [facility] [address] [place], [place], [id number] ThyroxineOrdered By: Kori Sethi on 02-27-2025 T4 [Mass/Vol] 8.2 ug/dL 4.8-13.9 [facility] Triglycerides measurementOrd ered By: Kori Sethi on 02-27-2025 Triglyceride [Mass/Vol] 158 mg/dL <199 [facility] Comment on above: The drugs N-Acetylcy [...] A Positive A OCCULT BLOOD POSITIVE Normal [facility] Comment on above: Performed By: #### L 400.0001, L500.2500, L100.0100, M100.2200 #### [facility] [address] [place], [place], [id number] Stool gastrointestinal hemog lobin detection by immunologic methodOrdered By: Kori Sethi on 02-21-2025 Lower GI hemoglobin IA Ql (Stl) Positive Abnormal [facility] Anion gap in Serum or Plasma Ordered By: Kori Sethi on 12-26-2024 Anion gap [Moles/Vol] 12 mmol/L 10-26 [facility] BUN/creatinine ratioOrdered By: Kori Sethi on 12-26-2024 Urea nitrogen/Creatinine [Mass ratio] 53.2 mg/mg High 04-02 [facility] Basic Metabolic Profile (BMP )on 12-26-2024 BUN/CRE 53.2 RATIO High 04-02 [facility] Comment on above: Order Comment: 517.2 Performed By: #### L 400.0001, L500.2500, L100.0100, M100.2200 #### [facility] [address] [place], [place], [address] Calcium [Mass/Vol] 8.6 mg/dL Normal 7.6-11.0 [facility] Comment on above: Order Comment: 517.2 Performed By: #### L 400.0001, L500.2500, L100.0100, M100.2200 #### [facility] [address] [place], [address] Chloride [Moles/Vol] 99 mmol/L Normal 98-108 [facility] Comment on above: Order Comment: 517.2 Performed By: #### L 400.0001, L500.2500, L100.0100, M100.2200 #### [facility] [address] [place], [address] CO2 [Moles/Vol] 30.4 mmol/L Normal 21.0-32.0 [facility] Comment on above: Order Comment: 517.2 Performed By: #### L 400.0001, L500.2500, L100.0100, M100.2200 #### [facility] [address] [place], [address] Creatinine [Mass/Vol] 0.23 mg/dL Low 0.70-1.20 [facility] Comment on above: Order Comment: 517.2 Performed By: #### L 400.0001, L500.2500, L100.0100, M100.2200 #### [facility] [address] [place], [address] GAP 12 Normal 5-15 [facility] Comment on above: Order Comment: 517.2 Performed By: #### L 400.0001, L500.2500, L100.0100, M100.2200 #### [facility] [address] [place], [address] GFR/1.73 sq M.predicted among non-blacks MDRD (S/P/Bld) [Vol rate/Area] 138 mL/min/{1.73_m2} Normal >60 [facility] Comment on above: Order Comment: 517.2 Result Comment: mL/m in/1.73m2 CKD-EPI Creatinine Equation (2020) Performed By: #### L 400.0001, L500.2500, L100.0100, M100.2200 #### [facility] [address] [place], [address] Glucose [Mass/Vol] 103 mg/dL High 70-99 [facility] Comment on above: Order Comment: 517.2 Performed By: #### L 400.0001, L500.2500, L100.0100, M100.2200 #### [facility] [address] [place], [address] Potassium [Moles/Vol] 3.8 mmol/L Normal 3.3-5.1 [facility] Comment on above: Order Comment: 517.2 Performed By: #### L 400.0001, L500.2500, L100.0100, M100.2200 #### [facility] [address] [place], [address] Sodium [Moles/Vol] 141 mmol/L Normal 133-145 [facility] Comment on above: Order Comment: 517.2 Performed By: #### L 400.0001, L500.2500, L100.0100, M100.2200 #### [facility] [address] [place], [address] Urea nitrogen [Mass/Vol] 12 mg/dL Normal 4-19 [facility] Comment on above: Order Comment: 517.2 Performed By: #### L 400.0001, L500.2500, L100.0100, M100.2200 #### [facility] [address] [place], [address] Carbon dioxide, total [Moles /volume] in Central venous bloodOrdered By: Kori Sethi on 12-26-2024 CO2 [Moles/Vol] 30.4 mmol/L 21.0-32.0 [facility] Chloride assayOrdered By: Edenilson Sethi on 12-26-2024 Chloride [Moles/Vol] 99 mmol/L 98-108 [facility] Glomerular filtration rate ( GFR) estimation/1.73 sq m using serum, plasma, or whole bOrdered By: Kori Sethi on 12-26-2024 GFR/1.73 sq M.predicted among non-blacks MDRD (S/P/Bld) [Vol rate/Area] 138 mL/min/{1.73_m2} >60 [facility] Comment on above: mL/min/1.73m2 CKD-EP I Creatinine Equation (2020) Potassium measurement (mass/ volume)Ordered By: Kori Sethi on 12-26-2024 Potassium (Unsp spec) [Mass/Vol] 3.8 mmol/L 3.3-5.1 [facility] Serum creatinine measurement (mass/volume)Ordered By: Kori Sethi on 12-26-2024 Creatinine [Mass/Vol] 0.23 mg/dL Low 0.70-1.20 [facility] Serum glucose measurement (m ass/volume)Ordered By: Kori Sethi on 12-26-2024 Glucose [Mass/Vol] 103 mg/dL High 70-99 [facility] Serum or plasma calcium miguel angel urement (mass/volume)Ordered By: Kori Sethi on 12-26-2024 Calcium [Mass/Vol] 8.6 mg/dL 7.6-11.0 [facility] Serum or plasma urea nitroge n measurement (mass/volume)Ordered By: Kori Sethi on 12-26-2024 Urea nitrogen [Mass/Vol] 12 mg/dL 4-19 [facility] Sodium levelOrdered By: Bailey Sethi on 12-26-2024 Sodium [Moles/Vol] 141 mmol/L 133-145 [facility] Urine Cultureon 12-22-2024 URC Escherichia coli [place] Count 80,000-100,000 Klebsiella pneumoniae sp pneum Klebsiella pneumoniae sp pneum PMIR [place] Count 80,000-100,000 Proteus mirabilis Ampicillin Islt SUNG [...] TMP SMX Islt SUNG >=320 R Normal [facility] Comment on above: Performed By: #### L 500.4050, L503.0105, L506.1000, L100.0100, L500.4100, L501.9520 #### [facility] [address] [place], [place], [id number] Basic Metabolic Profile (BMP )on 12-21-2024 BUN Normal - [facility] Comment on above: Order Comment: 517.2 Result Comment: LABS WERE DRAWN 12/19/24 DO NOT NEED REPEATED Performed By: #### L 400.0001, L500.2500, L100.0100, M100.2200 #### [facility] [address] [place], [place], [id number] [phone] BUN/CRE Normal - [facility] Comment on above: Order Comment: 517.2 Result Comment: LABS WERE DRAWN 12/19/24 DO NOT NEED REPEATED Performed By: #### L 400.0001, L500.2500, L100.0100, M100.2200 #### [facility] [address] [place], [address] Calcium Normal 7.6-11.0 [facility] Comment on above: Order Comment: 517.2 Result Comment: LABS WERE DRAWN 12/19/24 DO NOT NEED REPEATED Performed By: #### L 400.0001, L500.2500, L100.0100, M100.2200 #### [facility] [address] [place], [address] CL Normal 98-108 [facility] Comment on above: Order Comment: 517.2 Result Comment: LABS WERE DRAWN 12/19/24 DO NOT NEED REPEATED Performed By: #### L 400.0001, L500.2500, L100.0100, M100.2200 #### [facility] [address] [place], [address] CO2 Normal 21.0-32.0 [facility] Comment on above: Order Comment: 517.2 Result Comment: LABS WERE DRAWN 12/19/24 DO NOT NEED REPEATED Performed By: #### L 400.0001, L500.2500, L100.0100, M100.2200 #### [facility] [address] [place], [address] CREAT,SERUM Normal 0.70-1.20 [facility] Comment on above: Order Comment: 517.2 Result Comment: LABS WERE DRAWN 12/19/24 DO NOT NEED REPEATED Performed By: #### L 400.0001, L500.2500, L100.0100, M100.2200 #### [facility] [address] [place], [address] eGFR Normal >60 [facility] Comment on above: Order Comment: 517.2 Result Comment: LABS WERE DRAWN 12/19/24 DO NOT NEED REPEATED Performed By: #### L 400.0001, L500.2500, L100.0100, M100.2200 #### [facility] [address] [place], [address] GAP Normal 5-15 [facility] Comment on above: Order Comment: 517.2 Result Comment: LABS WERE DRAWN 12/19/24 DO NOT NEED REPEATED Performed By: #### L 400.0001, L500.2500, L100.0100, M100.2200 #### [facility] [address] [place], [address] GLU Normal 70-99 [facility] Comment on above: Order Comment: 517.2 Result Comment: LABS WERE DRAWN 12/19/24 DO NOT NEED REPEATED Performed By: #### L 400.0001, L500.2500, L100.0100, M100.2200 #### [facility] [address] [place], [address] Potassium Normal 3.3-5.1 [facility] Comment on above: Order Comment: 517.2 Result Comment: LABS WERE DRAWN 12/19/24 DO NOT NEED REPEATED Performed By: #### L 400.0001, L500.2500, L100.0100, M100.2200 #### [facility] [address] [place], [address] Basic Metabolic Profile (BMP) Normal 133-145 [facility] Comment on above: Order Comment: 517.2 Result Comment: LABS WERE DRAWN 12/19/24 DO NOT NEED REPEATED Performed By: #### L 400.0001, L500.2500, L100.0100, M100.2200 #### [facility] [address] [place], [address] CBC W/Diff, Automatedon 07-1 0-2025 Absolute Neut Normal 2.0-7.7 [facility] Comment on above: Order Comment: 517.2 Result Comment: LABS WERE DRAWN 12/19/24 DO NOT NEED REPEATED Performed By: #### L 400.0001, L500.2500, L100.0100, M100.2200 #### [facility] [address] [place], [address] HCT Normal 37-47 [facility] Comment on above: Order Comment: 517.2 Result Comment: LABS WERE DRAWN 12/19/24 DO NOT NEED REPEATED Performed By: #### L 400.0001, L500.2500, L100.0100, M100.2200 #### [facility] [address] [place], [address] HGB Normal 12.0-15.0 [facility] Comment on above: Order Comment: 517.2 Result Comment: LABS WERE DRAWN 12/19/24 DO NOT NEED REPEATED Performed By: #### L 400.0001, L500.2500, L100.0100, M100.2200 #### [facility] [address] [place], [address] MCH Normal 27.0-32.0 [facility] Comment on above: Order Comment: 517.2 Result Comment: LABS WERE DRAWN 12/19/24 DO NOT NEED REPEATED Performed By: #### L 400.0001, L500.2500, L100.0100, M100.2200 #### [facility] [address] [place], [address] MCHC Normal 32-36 [facility] Comment on above: Order Comment: 517.2 Result Comment: LABS WERE DRAWN 12/19/24 DO NOT NEED REPEATED Performed By: #### L 400.0001, L500.2500, L100.0100, M100.2200 #### [facility] [address] [place], [address] MCV Normal 81-99 [facility] Comment on above: Order Comment: 517.2 Result Comment: LABS WERE DRAWN 12/19/24 DO NOT NEED REPEATED Performed By: #### L 400.0001, L500.2500, L100.0100, M100.2200 #### [facility] [address] [place], [address] NEUT% Normal 47-70 [facility] Comment on above: Order Comment: 517.2 Result Comment: LABS WERE DRAWN 12/19/24 DO NOT NEED REPEATED Performed By: #### L 400.0001, L500.2500, L100.0100, M100.2200 #### [facility] [address] [place], [address] PLT Normal 150-450 [facility] Comment on above: Order Comment: 517.2 Result Comment: LABS WERE DRAWN 12/19/24 DO NOT NEED REPEATED Performed By: #### L 400.0001, L500.2500, L100.0100, M100.2200 #### [facility] [address] [place], [address] RBC Normal 4.2-5.4 [facility] Comment on above: Order Comment: 517.2 Result Comment: LABS WERE DRAWN 12/19/24 DO NOT NEED REPEATED Performed By: #### L 400.0001, L500.2500, L100.0100, M100.2200 #### [facility] [address] [place], [address] RDW CV Normal 11.6-14.6 [facility] Comment on above: Order Comment: 517.2 Result Comment: LABS WERE DRAWN 12/19/24 DO NOT NEED REPEATED Performed By: #### L 400.0001, L500.2500, L100.0100, M100.2200 #### [facility] [address] [place], [address] RDW SD Normal 35.1-43.9 [facility] Comment on above: Order Comment: 517.2 Result Comment: LABS WERE DRAWN 12/19/24 DO NOT NEED REPEATED Performed By: #### L 400.0001, L500.2500, L100.0100, M100.2200 #### [facility] [address] [place], [address] WBC Normal 4.4-11.0 [facility] Comment on above: Order Comment: 517.2 Result Comment: LABS WERE DRAWN 12/19/24 DO NOT NEED REPEATED Performed By: #### L 400.0001, L500.2500, L100.0100, M100.2200 #### [facility] [address] [place], [address] Absolute lymphocyte countOrd ered By: Kori Sethi on 12-19-2024 Lymphocytes Auto (Unsp spec) [#/Vol] 2.67 10*3/uL 0.83-4.51 [facility] Absolute neutrophil countOrd ered By: Kori Sethi on 12-19-2024 Neutrophils (Bld) [#/Vol] 5.3 10*3/uL 2.0-7.7 [facility] Anion gap in Serum or Plasma Ordered By: Kori Sethi on 12-19-2024 Anion gap [Moles/Vol] 10 mmol/L 5- [facility] Automated lymphocyte count a s percentage of total leukocytesOrdered By: Kori Sethi on 12-19-2024 Lymphocytes/100 WBC Auto (Unsp spec) 29.8 % - [facility] BUN/creatinine ratioOrdered By: Kori Sethi on 12-19-2024 Urea nitrogen/Creatinine [Mass ratio] 31.6 mg/mg High - [facility] Basic Metabolic Profile (BMP )on 12-19-2024 BUN/CRE 31.6 RATIO High - [facility] Comment on above: Order Comment: 517-2 Performed By: #### L 500.4050, L503.0105, L506.1000, L100.0100, L500.4100, L501.9520 #### [facility] Laboratory [address] [place], [address] Calcium [Mass/Vol] 8.8 mg/dL Normal 7.6-11.0 [facility] Comment on above: Order Comment: 517-2 Performed By: #### L 500.4050, L503.0105, L506.1000, L100.0100, L500.4100, L501.9520 #### [facility] [address] [place], [address] Chloride [Moles/Vol] 100 mmol/L Normal 98-108 [facility] Comment on above: Order Comment: 517-2 Performed By: #### L 500.4050, L503.0105, L506.1000, L100.0100, L500.4100, L501.9520 #### [facility] [address] [place], [address] CO2 [Moles/Vol] 29.3 mmol/L Normal 21.0-32.0 [facility] Comment on above: Order Comment: 517-2 Performed By: #### L 500.4050, L503.0105, L506.1000, L100.0100, L500.4100, L501.9520 #### [facility] Laboratory [address] [place], [address] Creatinine [Mass/Vol] 0.37 mg/dL Low 0.70-1.20 [facility] Comment on above: Order Comment: 517-2 Performed By: #### L 500.4050, L503.0105, L506.1000, L100.0100, L500.4100, L501.9520 #### [facility] [address] [place], [address] GAP 10 Normal 5-15 [facility] Comment on above: Order Comment: 517-2 Performed By: #### L 500.4050, L503.0105, L506.1000, L100.0100, L500.4100, L501.9520 #### [facility] [address] [place], [address] GFR/1.73 sq M.predicted among non-blacks MDRD (S/P/Bld) [Vol rate/Area] 123 mL/min/{1.73_m2} Normal >60 [facility] Comment on above: Order Comment: 517-2 Result Comment: mL/m in/1.73m2 CKD-EPI Creatinine Equation (2020) Performed By: #### L 500.4050, L503.0105, L506.1000, L100.0100, L500.4100, L501.9520 #### [facility] [address] [place], [address] Glucose [Mass/Vol] 104 mg/dL High 70-99 [facility] Comment on above: Order Comment: 517-2 Performed By: #### L 500.4050, L503.0105, L506.1000, L100.0100, L500.4100, L501.9520 #### [facility] [address] [place], [address] Potassium [Moles/Vol] 3.8 mmol/L Normal 3.3-5.1 [facility] Comment on above: Order Comment: 517-2 Performed By: #### L 500.4050, L503.0105, L506.1000, L100.0100, L500.4100, L501.9520 #### [facility] [address] [place], [address] Sodium [Moles/Vol] 138 mmol/L Normal 133-145 [facility] Comment on above: Order Comment: 517-2 Performed By: #### L 500.4050, L503.0105, L506.1000, L100.0100, L500.4100, L501.9520 #### [facility] [address] [place], [address] Urea nitrogen [Mass/Vol] 12 mg/dL Normal 4-19 [facility] Comment on above: Order Comment: 517-2 Performed By: #### L 500.4050, L503.0105, L506.1000, L100.0100, L500.4100, L501.9520 #### [facility] [address] [place], [address] Basophil percentageOrdered B y: Kori Sethi on 12-19-2024 Basophils/100 WBC (Bld) 0.4 % 0-1 [facility] Bilirubin Test strip Ql (U)O rdered By: Kori Sethi on 12-19-2024 Bilirubin Ql (U) Negative Negative [facility] CBC W/Diff, Automatedon Absolute Lymph 2.67 X10 3/uL Normal 0.83-4.51 [facility] Comment on above: Order Comment: 517-2 Performed By: #### L 500.4050, L503.0105, L506.1000, L100.0100, L500.4100, L501.9520 #### [facility] [address] [place], [address] Absolute Neut 5.3 X10 3/uL Normal 2.0-7.7 [facility] Comment on above: Order Comment: 517-2 Performed By: #### L 500.4050, L503.0105, L506.1000, L100.0100, L500.4100, L501.9520 #### [facility] [address] [place], [address] Basophils/100 WBC (Bld) 0.4 % Normal 0-1 [facility] Comment on above: Order Comment: 517-2 Performed By: #### L 500.4050, L503.0105, L506.1000, L100.0100, L500.4100, L501.9520 #### [facility] [address] [place], [address] Eosinophils/100 WBC (Bld) 3.7 % Normal 0-5 [facility] Comment on above: Order Comment: 517-2 Performed By: #### L 500.4050, L503.0105, L506.1000, L100.0100, L500.4100, L501.9520 #### [facility] [address] [place], [address] Erythrocyte distribution width (RBC) [Ratio] 14.7 % High 11.6-14.6 [facility] Comment on above: Order Comment: 517-2 Performed By: #### L 500.4050, L503.0105, L506.1000, L100.0100, L500.4100, L501.9520 #### [facility] [address] [place], [address] Hematocrit (Bld) [Volume fraction] 32.5 % Low 37-47 [facility] Comment on above: Order Comment: 517-2 Performed By: #### L 500.4050, L503.0105, L506.1000, L100.0100, L500.4100, L501.9520 #### [facility] [address] [place], [address] Hemoglobin (Bld) [Mass/Vol] 9.7 g/dL Low 12.0-15.0 [facility] Comment on above: Order Comment: 517-2 Performed By: #### L 500.4050, L503.0105, L506.1000, L100.0100, L500.4100, L501.9520 #### [facility] [address] [place], [address] IG% 0.200 Normal 0.0-0.9 [facility] Comment on above: Order Comment: 517-2 Result Comment: IG% - Immature Granulocytes (promyelocytes, myelocytes and metamyelocytes) > 1% indicates that a LEFT SHIFT is Present. Performed By: #### L 500.4050, L503.0105, L506.1000, L100.0100, L500.4100, L501.9520 #### [facility] [address] [place], [address] Lymphocytes/100 WBC (Bld) 29.8 % Normal 19-41 [facility] Comment on above: Order Comment: 517-2 Performed By: #### L 500.4050, L503.0105, L506.1000, L100.0100, L500.4100, L501.9520 #### [facility] [address] [place], [address] MCH (RBC) [Entitic mass] 24.9 pg Low 27.0-32.0 [facility] Comment on above: Order Comment: 517-2 Performed By: #### L 500.4050, L503.0105, L506.1000, L100.0100, L500.4100, L501.9520 #### [facility] [address] [place], [address] MCHC (RBC) [Mass/Vol] 29.8 g/dL Low 32-36 [facility] Comment on above: Order Comment: 517-2 Performed By: #### L 500.4050, L503.0105, L506.1000, L100.0100, L500.4100, L501.9520 #### [facility] [address] [place], [address] MCV (RBC) [Entitic vol] 83.5 fL Normal 81-99 [facility] Comment on above: Order Comment: 517-2 Performed By: #### L 500.4050, L503.0105, L506.1000, L100.0100, L500.4100, L501.9520 #### [facility] [address] [place], [address] Monocytes/100 WBC (Bld) 6.6 % Normal 0-10 [facility] Comment on above: Order Comment: 517-2 Performed By: #### L 500.4050, L503.0105, L506.1000, L100.0100, L500.4100, L501.9520 #### [facility] [address] [place], [address] Neutrophils/100 WBC (Bld) 59.3 % Normal 47-70 [facility] Comment on above: Order Comment: 517-2 Performed By: #### L 500.4050, L503.0105, L506.1000, L100.0100, L500.4100, L501.9520 #### [facility] [address] [place], [address] Nucleated RBC (Bld) [#/Vol] 0 10*3/uL Normal 0-5 [facility] Comment on above: Order Comment: 517-2 Performed By: #### L 500.4050, L503.0105, L506.1000, L100.0100, L500.4100, L501.9520 #### [facility] [address] [place], [address] Platelet mean volume (Bld) [Entitic vol] 9.7 fL Normal 6.2-12.0 [facility] Comment on above: Order Comment: 517-2 Performed By: #### L 500.4050, L503.0105, L506.1000, L100.0100, L500.4100, L501.9520 #### [facility] [address] [place], [address] Platelets (Bld) [#/Vol] 367 10*3/uL Normal 150-450 [facility] Comment on above: Order Comment: 517-2 Performed By: #### L 500.4050, L503.0105, L506.1000, L100.0100, L500.4100, L501.9520 #### [facility] [address] [place], [address] RBC (Bld) [#/Vol] 3.89 10*6/uL Low 4.2-5.4 [facility] Comment on above: Order Comment: 517-2 Performed By: #### L 500.4050, L503.0105, L506.1000, L100.0100, L500.4100, L501.9520 #### [facility] [address] [place], [address] RDW SD 44.6 fl High 35.1-43.9 [facility] Comment on above: Order Comment: 517-2 Performed By: #### L 500.4050, L503.0105, L506.1000, L100.0100, L500.4100, L501.9520 #### [facility] [address] [place], [address] WBC (Bld) [#/Vol] 9.0 10*3/uL Normal 4.4-11.0 [facility] Comment on above: Order Comment: 517-2 Performed By: #### L 500.4050, L503.0105, L506.1000, L100.0100, L500.4100, L501.9520 #### [facility] [address] [place], [address] Carbon dioxide, total [Moles /volume] in Central venous bloodOrdered By: Kori Sethi on 12-19-2024 CO2 [Moles/Vol] 29.3 mmol/L 21.0-32.0 [facility] Chloride assayOrdered By: Edenilson Sethi on 12-19-2024 Chloride [Moles/Vol] 100 mmol/L 98-108 [facility] Eosinophil percentageOrdered By: Kori Sethi on 12-19-2024 Eosinophils/100 WBC (Bld) 3.7 % 0-5 [facility] Erythrocyte distribution wid th ratioOrdered By: Kori Sethi on 12-19-2024 Erythrocyte distribution width (RBC) [Ratio] 14.7 % High 11.6-14.6 [facility] Erythrocyte distribution wid th standard deviationOrdered By: Kori eSthi on 12-19-2024 Erythrocyte distribution width (RBC) [Ratio] 44.6 fl High 35.1-43.9 [facility] Glomerular filtration rate ( GFR) estimation/1.73 sq m using serum, plasma, or whole bOrdered By: Kori Sethi on 12-19-2024 GFR/1.73 sq M.predicted among non-blacks MDRD (S/P/Bld) [Vol rate/Area] 123 mL/min/{1.73_m2} >60 [facility] Comment on above: mL/min/1.73m2 CKD-EP I Creatinine Equation (2020) Hematocrit Auto (Bld) [Volum e fraction]Ordered By: Kori Sethi on 12-19-2024 Hematocrit (Bld) [Volume fraction] 32.5 % Low 37-47 [facility] Hemoglobin measurementOrdere d By: Kori Sethi on 12-19-2024 Hemoglobin (Bld) [Mass/Vol] 9.7 g/dL Low 12.0-15.0 [facility] Immature granulocytes/100 WB C Auto (Bld)Ordered By: Kori Sethi on 12-19-2024 Immature granulocytes/100 WBC (Bld) 0.200 % 0.0-0.9 [facility] Comment on above: IG% - Immature Granu locytes (promyelocytes, myelocytes and metamyelocytes) > 1% indicates that a LEFT SHIFT is Present. Ketones Test strip Ql (U)Ord ered By: Kori Sethi on 12-19-2024 Ketones Ql (U) Negative Negative [facility] MCV (mean corpuscular volume ) determinationOrdered By: Kori Sethi on 12-19-2024 MCV (RBC) [Entitic vol] 83.5 fL 81-99 [facility] Mean corpuscular hemoglobin (MCH) determinationOrdered By: Kori Sethi on 12-19-2024 MCH (RBC) [Entitic mass] 24.9 pg Low 27.0-32.0 [facility] Mean corpuscular hemoglobin concentration (MCHC) determinationOrdered By: Kori Sethi on 12-19-2024 MCHC (RBC) [Mass/Vol] 29.8 g/dL Low 32-36 [facility] Mean platelet volume determi nationOrdered By: Kori Sethi on 12-19-2024 Platelet mean volume (Bld) [Entitic vol] 9.7 fL 6.2-12.0 [facility] Monocyte percentageOrdered B y: Kori Sethi on 12-19-2024 Monocytes/100 WBC (Bld) 6.6 % 0-10 [facility] Neutrophil percentageOrdered By: Kori Sethi on 12-19-2024 Neutrophils/100 WBC (Bld) 59.3 % 47-70 [facility] Nucleated red blood cell per centageOrdered By: Kori Sethi on 12-19-2024 Nucleated RBC/100 WBC (Bld) [Ratio] 0 % 0-5 [facility] Platelet countOrdered By: Edenilson Sethi on 12-19-2024 Platelets (Bld) [#/Vol] 367 10*3/uL 150-450 [facility] Potassium measurement (mass/ volume)Ordered By: Kori Sethi on 12-19-2024 Potassium (Unsp spec) [Mass/Vol] 3.8 mmol/L 3.3-5.1 [facility] Protein Test strip Ql (U)Ord ered By: Kori Sethi on 12-19-2024 Protein Ql (U) 15 mg/dl High Negative [facility] RBC Auto (Bld) [#/Vol]Ordere d By: Kori Sethi on 12-19-2024 RBC (Bld) [#/Vol] 3.89 10*6/uL Low 4.2-5.4 [facility] Serum creatinine measurement (mass/volume)Ordered By: Kori Sethi on 12-19-2024 Creatinine [Mass/Vol] 0.37 mg/dL Low 0.70-1.20 [facility] Serum glucose measurement (m ass/volume)Ordered By: Kori Stehi on 12-19-2024 Glucose [Mass/Vol] 104 mg/dL High 70-99 [facility] Serum or plasma calcium miguel angel urement (mass/volume)Ordered By: Kori Sethi on 12-19-2024 Calcium [Mass/Vol] 8.8 mg/dL 7.6-11.0 [facility] Serum or plasma urea nitroge n measurement (mass/volume)Ordered By: Kori Sethi on 12-19-2024 Urea nitrogen [Mass/Vol] 12 mg/dL 4-19 [facility] Sodium levelOrdered By: Bailey Sethi on 12-19-2024 Sodium [Moles/Vol] 138 mmol/L 133-145 [facility] Urinalysis, Routine (Dipstic k)on 12-19-2024 BILIRUBIN URINE Negative Normal Negative [facility] Comment on above: Order Comment: CLEAN CATCH Performed By: #### L 400.0001, L500.2500, L100.0100, M100.2200 #### [facility] [address] [place], [address] GLUCOSE, UR Normal Normal Normal [facility] Comment on above: Order Comment: CLEAN CATCH Performed By: #### L 400.0001, L500.2500, L100.0100, M100.2200 #### [facility] [address] [place], [address] KETONE UR Negative Normal Negative [facility] Comment on above: Order Comment: CLEAN CATCH Performed By: #### L 400.0001, L500.2500, L100.0100, M100.2200 #### [facility] [address] [place], [address] LEUK ESTERASE 500 /ul Abnormal Negative [facility] Comment on above: Order Comment: CLEAN CATCH Performed By: #### L 400.0001, L500.2500, L100.0100, M100.2200 #### [facility] [address] [place], [address] OCCULT BLOOD-UR 50 /ul Abnormal Negative [facility] Comment on above: Order Comment: CLEAN CATCH Performed By: #### L 400.0001, L500.2500, L100.0100, M100.2200 #### [facility] [address] [place], [address] pH UR 6.0 Normal 5.0 - 8.0 [facility] Comment on above: Order Comment: CLEAN CATCH Performed By: #### L 400.0001, L500.2500, L100.0100, M100.2200 #### [facility] [address] [place], [address] PROT DIPSTX 15 mg/dl Abnormal Negative [facility] Comment on above: Order Comment: CLEAN CATCH Performed By: #### L 400.0001, L500.2500, L100.0100, M100.2200 #### [facility] [address] [place], [address] SP.GR. DIPSTX 1.015 Normal 1.002-1.030 [facility] Comment on above: Order Comment: CLEAN CATCH Performed By: #### L 400.0001, L500.2500, L100.0100, M100.2200 #### [facility] [address] [place], [address] UROBILI Normal Normal Normal [facility] Comment on above: Order Comment: CLEAN CATCH Performed By: #### L 400.0001, L500.2500, L100.0100, M100.2200 #### [facility] [address] [place], [address] Urine clarityOrdered By: Shavonne Sethi on 12-19-2024 Clarity (U) Sl. Cloudy Normal Clear [facility] Comment on above: Order Comment: CLEAN CATCH Performed By: #### L 400.0001, L500.2500, L100.0100, M100.2200 #### [facility] [address] [place], [address] Urine color determinationOrd ered By: Kori Sethi on 12-19-2024 Color (U) Yellow Normal Yellow [facility] Comment on above: Order Comment: CLEAN CATCH Performed By: #### L 400.0001, L500.2500, L100.0100, M100.2200 #### [facility] [address] [place], [address] Urine cultureOrdered By: Shavonne Sethi on 12-19-2024 Bacteria identified Cx Nom (U) Escherichia coli Abnormal [facility] Bacteria identified Cx Nom (U) Klebsiella pneumoniae sp pneum Abnormal [facility] Bacteria identified Cx Nom (U) Proteus mirabilis Abnormal [facility] Urine glucose detectionOrder ed By: Kori Sethi on 12-19-2024 Glucose Ql (U) Normal mg/dl Normal [facility] Urine leukocyte esterase det ection by dipstickOrdered By: Kori Sethi on 12-19-2024 Leukocyte esterase Test strip Ql (U) 500 /ul High Negative [facility] Urine nitrite test by dipsti ckOrdered By: Kori Sethi on 12-19-2024 Nitrite Ql (U) Positive Abnormal Negative [facility] Comment on above: Order Comment: CLEAN CATCH Performed By: #### L 400.0001, L500.2500, L100.0100, M100.2200 #### [facility] [address] [place], [address] Urine pHOrdered By: Kori Rider udla on 12-19-2024 pH (U) 6.0 [pH] 5.0 - 8.0 [facility] Urine specific gravity measu rementOrdered By: Kori Sethi on 12-19-2024 Specific gravity (U) [Rel density] 1.015 1.002-1.030 [facility] Urine urobilinogen measureme ntOrdered By: Kori Sethi on 12-19-2024 Urobilinogen Ql (U) Normal mg/dl Normal [facility] White blood cell (WBC) count Ordered By: Kori Sethi on 12-19-2024 WBC (Bld) [#/Vol] 9.0 10*3/uL 4.4-11.0 [facility] CBC-Complete Blood Cnt No Di ffon 12-05-2024 Erythrocyte distribution width (RBC) [Ratio] 14.9 % High 11.6-14.6 [facility] Comment on above: Order Comment: 517.2 Performed By: #### L 400.0001, L500.2500, L100.0100, M100.2200 #### [facility] [address] [place], [address] Hematocrit (Bld) [Volume fraction] 32.4 % Low 37-47 [facility] Comment on above: Order Comment: 517.2 Performed By: #### L 400.0001, L500.2500, L100.0100, M100.2200 #### [facility] [address] [place], [address] Hemoglobin (Bld) [Mass/Vol] 10.0 g/dL Low 12.0-15.0 [facility] Comment on above: Order Comment: 517.2 Performed By: #### L 400.0001, L500.2500, L100.0100, M100.2200 #### [facility] [address] [place], [address] MCH (RBC) [Entitic mass] 25.6 pg Low 27.0-32.0 [facility] Comment on above: Order Comment: 517.2 Performed By: #### L 400.0001, L500.2500, L100.0100, M100.2200 #### [facility] [address] [place], [address] MCHC (RBC) [Mass/Vol] 30.9 g/dL Low 32-36 [facility] Comment on above: Order Comment: 517.2 Performed By: #### L 400.0001, L500.2500, L100.0100, M100.2200 #### [facility] [address] [place], [address] MCV (RBC) [Entitic vol] 83.1 fL Normal 81-99 [facility] Comment on above: Order Comment: 517.2 Performed By: #### L 400.0001, L500.2500, L100.0100, M100.2200 #### [facility] [address] [place], [address] Platelet mean volume (Bld) [Entitic vol] 9.5 fL Normal 6.2-12.0 [facility] Comment on above: Order Comment: 517.2 Performed By: #### L 400.0001, L500.2500, L100.0100, M100.2200 #### [facility] [address] [place], [address] Platelets (Bld) [#/Vol] 342 10*3/uL Normal 150-450 [facility] Comment on above: Order Comment: 517.2 Performed By: #### L 400.0001, L500.2500, L100.0100, M100.2200 #### [facility] [address] [place], [address] RBC (Bld) [#/Vol] 3.90 10*6/uL Low 4.2-5.4 [facility] Comment on above: Order Comment: 517.2 Performed By: #### L 400.0001, L500.2500, L100.0100, M100.2200 #### [facility] [address] [place], [address] RDW SD 45.4 fl High 35.1-43.9 [facility] Comment on above: Order Comment: 517.2 Performed By: #### L 400.0001, L500.2500, L100.0100, M100.2200 #### [facility] [address] [place], [address] WBC (Bld) [#/Vol] 7.4 10*3/uL Normal 4.4-11.0 [facility] Comment on above: Order Comment: 517.2 Performed By: #### L 400.0001, L500.2500, L100.0100, M100.2200 #### [facility] [address] [place], [address] Erythrocyte distribution wid th ratioOrdered By: Kori Sethi on 12-05-2024 Erythrocyte distribution width (RBC) [Ratio] 14.9 % High 11.6-14.6 [facility] Erythrocyte distribution wid th standard deviationOrdered By: Kori Sethi on 12-05-2024 Erythrocyte distribution width (RBC) [Ratio] 45.4 fl High 35.1-43.9 [facility] Hematocrit Auto (Bld) [Volum e fraction]Ordered By: Kori Sethi on 12-05-2024 Hematocrit (Bld) [Volume fraction] 32.4 % Low 37-47 [facility] Hemoglobin measurementOrdere d By: Kori Sethi on 12-05-2024 Hemoglobin (Bld) [Mass/Vol] 10.0 g/dL Low 12.0-15.0 [facility] MCV (mean corpuscular volume ) determinationOrdered By: Kori Sethi on 12-05-2024 MCV (RBC) [Entitic vol] 83.1 fL 81-99 [facility] Mean corpuscular hemoglobin (MCH) determinationOrdered By: Kori Sethi on 12-05-2024 MCH (RBC) [Entitic mass] 25.6 pg Low 27.0-32.0 [facility] Mean corpuscular hemoglobin concentration (MCHC) determinationOrdered By: Kori Sethi on 12-05-2024 MCHC (RBC) [Mass/Vol] 30.9 g/dL Low 32-36 [facility] Mean platelet volume determi nationOrdered By: Kori Sethi on 12-05-2024 Platelet mean volume (Bld) [Entitic vol] 9.5 fL 6.2-12.0 [facility] Platelet countOrdered By: Edenilson Sethi on 12-05-2024 Platelets (Bld) [#/Vol] 342 10*3/uL 150-450 [facility] RBC Auto (Bld) [#/Vol]Ordere d By: Kori Sethi on 12-05-2024 RBC (Bld) [#/Vol] 3.90 10*6/uL Low 4.2-5.4 [facility] White blood cell (WBC) count Ordered By: Kori Sethi on 12-05-2024 WBC (Bld) [#/Vol] 7.4 10*3/uL 4.4-11.0 [facility] Anion gap in Serum or Plasma Ordered By: Kori Sethi on 12-04-2024 Anion gap [Moles/Vol] 16 mmol/L High 5-15 [facility] BUN/creatinine ratioOrdered By: Kori Appiahnatividadbrett on 12-04-2024 Urea nitrogen/Creatinine [Mass ratio] 39.2 mg/mg High 10-20 [facility] Bilirubin, totalOrdered By: Kori dTnatividadbrett on 12-04-2024 Bilirubin [Mass/Vol] 0.18 mg/dL 0.00-1.30 [facility] CBC-Complete Blood Cnt No Di ffon 12-04-2024 HCT Normal 37-47 [facility] Comment on above: Order Comment: -2 Result Comment: This specimen has been REJECTED due to Laboratory criteria: Clotted. LAB has been notified of need of recollection. 12/04/24 0850 [facility] Performed By: #### L 500.4050, L503.0105, L506.1000, L100.0100, L500.4100, L501.9520 #### [facility] [address] [place], [address] HGB Normal 12.0-15.0 [facility] Comment on above: Order Comment: -2 Result Comment: This specimen has been REJECTED due to Laboratory criteria: Clotted. LAB has been notified of need of recollection. 12/04/24 0850 [facility] Performed By: #### L 500.4050, L503.0105, L506.1000, L100.0100, L500.4100, L501.9520 #### [facility] Laboratory [address] [place], [address] MCH Normal 27.0-32.0 [facility] Comment on above: Order Comment: 517-2 Result Comment: This specimen has been REJECTED due to Laboratory criteria: Clotted. LAB has been notified of need of recollection. 12/04/24 0850 [facility] Performed By: #### L 500.4050, L503.0105, L506.1000, L100.0100, L500.4100, L501.9520 #### [facility] Laboratory [address] [place], [address] MCHC Normal 32-36 [facility] Comment on above: Order Comment: 517-2 Result Comment: This specimen has been REJECTED due to Laboratory criteria: Clotted. LAB has been notified of need of recollection. 12/04/24 0850 [facility] Performed By: #### L 500.4050, L503.0105, L506.1000, L100.0100, L500.4100, L501.9520 #### [facility] Laboratory [address] [place], [address] MCV Normal 81-99 [facility] Comment on above: Order Comment: -2 Result Comment: This specimen has been REJECTED due to Laboratory criteria: Clotted. LAB has been notified of need of recollection. 12/04/24 0850 [facility] Performed By: #### L 500.4050, L503.0105, L506.1000, L100.0100, L500.4100, L501.9520 #### [facility] Laboratory [address] [place], [address] PLT Normal 150-450 [facility] Comment on above: Order Comment: -2 Result Comment: This specimen has been REJECTED due to Laboratory criteria: Clotted. LAB has been notified of need of recollection. 12/04/24 0850 [facility] Performed By: #### L 500.4050, L503.0105, L506.1000, L100.0100, L500.4100, L501.9520 #### [facility] Laboratory [address] [place], [address] RBC Normal 4.2-5.4 [facility] Comment on above: Order Comment: 517-2 Result Comment: This specimen has been REJECTED due to Laboratory criteria: Clotted. LAB has been notified of need of recollection. 12/04/24 0850 [facility] Performed By: #### L 500.4050, L503.0105, L506.1000, L100.0100, L500.4100, L501.9520 #### [facility] Laboratory [address] [place], [address] RDW CV Normal 11.6-14.6 [facility] Comment on above: Order Comment: 517-2 Result Comment: This specimen has been REJECTED due to Laboratory criteria: Clotted. LAB has been notified of need of recollection. 12/04/24 0850 [facility] Performed By: #### L 500.4050, L503.0105, L506.1000, L100.0100, L500.4100, L501.9520 #### [facility] Laboratory [address] [place], [address] RDW SD Normal 35.1-43.9 [facility] Comment on above: Order Comment: 517-2 Result Comment: This specimen has been REJECTED due to Laboratory criteria: Clotted. LAB has been notified of need of recollection. 12/04/24 0850 [facility] Performed By: #### L 500.4050, L503.0105, L506.1000, L100.0100, L500.4100, L501.9520 #### [facility] Laboratory [address] [place], [address] WBC Normal 4.4-11.0 [facility] Comment on above: Order Comment: 517-2 Result Comment: This specimen has been REJECTED due to Laboratory criteria: Clotted. LAB has been notified of need of recollection. 12/04/24 0850 [facility] Performed By: #### L 500.4050, L503.0105, L506.1000, L100.0100, L500.4100, L501.9520 #### [facility] Laboratory [address] [place], [address] Carbon dioxide, total [Moles /volume] in Central venous bloodOrdered By: Kori Sethi on 12-04-2024 CO2 [Moles/Vol] 23.9 mmol/L 21.0-32.0 [facility] Chloride assayOrdered By: Edenilson Sethi on 12-04-2024 Chloride [Moles/Vol] 99 mmol/L 98-108 [facility] Comprehensive Metabolic Prof ilon 12-04-2024 Albumin [Mass/Vol] 3.7 g/dL Normal 3.5-5.0 [facility] Comment on above: Order Comment: 517-2 Performed By: #### L 500.4050, L503.0105, L506.1000, L100.0100, L500.4100, L501.9520 #### [facility] Laboratory [address] [place], [address] Albumin/Globulin [Mass ratio] 1.0 {ratio} Normal 0.9-2.4 [facility] Comment on above: Order Comment: 517-2 Performed By: #### L 500.4050, L503.0105, L506.1000, L100.0100, L500.4100, L501.9520 #### [facility] Laboratory [address] [place], [address] ALK PHOS 86 U/L Normal 35-104 [facility] Comment on above: Order Comment: 517-2 Performed By: #### L 500.4050, L503.0105, L506.1000, L100.0100, L500.4100, L501.9520 #### [facility] Laboratory [address] [place], [address] ALT [Catalytic activity/Vol] 11 U/L Normal <=34 [facility] Comment on above: Order Comment: 517-2 Performed By: #### L 500.4050, L503.0105, L506.1000, L100.0100, L500.4100, L501.9520 #### [facility] Laboratory [address] [place], [address] AST [Catalytic activity/Vol] 17 U/L Normal <=31 [facility] Comment on above: Order Comment: 517-2 Performed By: #### L 500.4050, L503.0105, L506.1000, L100.0100, L500.4100, L501.9520 #### [facility] Laboratory [address] [place], [address] Bilirubin [Mass/Vol] 0.18 mg/dL Normal 0.00-1.30 [facility] Comment on above: Order Comment: 517-2 Performed By: #### L 500.4050, L503.0105, L506.1000, L100.0100, L500.4100, L501.9520 #### [facility] Laboratory [address] [place], [address] BUN/CRE 39.2 RATIO High 10-20 [facility] Comment on above: Order Comment: 517-2 Performed By: #### L 500.4050, L503.0105, L506.1000, L100.0100, L500.4100, L501.9520 #### [facility] Laboratory [address] [place], [address] Calcium [Mass/Vol] 9.0 mg/dL Normal 7.6-11.0 [facility] Comment on above: Order Comment: 517-2 Performed By: #### L 500.4050, L503.0105, L506.1000, L100.0100, L500.4100, L501.9520 #### [facility] Laboratory [address] [place], [address] Chloride [Moles/Vol] 99 mmol/L Normal 98-108 [facility] Comment on above: Order Comment: 517-2 Performed By: #### L 500.4050, L503.0105, L506.1000, L100.0100, L500.4100, L501.9520 #### [facility] Laboratory [address] [place], [address] CO2 [Moles/Vol] 23.9 mmol/L Normal 21.0-32.0 [facility] Comment on above: Order Comment: 517-2 Performed By: #### L 500.4050, L503.0105, L506.1000, L100.0100, L500.4100, L501.9520 #### [facility] Laboratory [address] [place], [address] Creatinine [Mass/Vol] 0.27 mg/dL Low 0.70-1.20 [facility] Comment on above: Order Comment: 517-2 Performed By: #### L 500.4050, L503.0105, L506.1000, L100.0100, L500.4100, L501.9520 #### [facility] Laboratory [address] [place], [address] GAP 16 High 5-15 [facility] Comment on above: Order Comment: 517-2 Performed By: #### L 500.4050, L503.0105, L506.1000, L100.0100, L500.4100, L501.9520 #### [facility] Laboratory [address] [place], [address] GFR/1.73 sq M.predicted among non-blacks MDRD (S/P/Bld) [Vol rate/Area] 133 mL/min/{1.73_m2} Normal >60 [facility] Comment on above: Order Comment: 517-2 Result Comment: mL/m in/1.73m2 CKD-EPI Creatinine Equation (2020) Performed By: #### L 500.4050, L503.0105, L506.1000, L100.0100, L500.4100, L501.9520 #### [facility] Laboratory [address] [place], [address] Globulin (S) [Mass/Vol] 3.7 g/dL Normal 2.2-4.2 [facility] Comment on above: Order Comment: 517-2 Performed By: #### L 500.4050, L503.0105, L506.1000, L100.0100, L500.4100, L501.9520 #### [facility] Laboratory [address] [place], [address] Glucose [Mass/Vol] 120 mg/dL High 70-99 [facility] Comment on above: Order Comment: 517-2 Performed By: #### L 500.4050, L503.0105, L506.1000, L100.0100, L500.4100, L501.9520 #### [facility] Laboratory [address] [place], [address] Potassium [Moles/Vol] 3.6 mmol/L Normal 3.3-5.1 [facility] Comment on above: Order Comment: 517-2 Performed By: #### L 500.4050, L503.0105, L506.1000, L100.0100, L500.4100, L501.9520 #### [facility] Laboratory [address] [place], [address] Sodium [Moles/Vol] 139 mmol/L Normal 133-145 [facility] Comment on above: Order Comment: 517-2 Performed By: #### L 500.4050, L503.0105, L506.1000, L100.0100, L500.4100, L501.9520 #### [facility] Laboratory [address] [place], [address] T PROT 7.4 g/dL Normal 5.9-8.4 [facility] Comment on above: Order Comment: 517-2 Performed By: #### L 500.4050, L503.0105, L506.1000, L100.0100, L500.4100, L501.9520 #### [facility] Laboratory [address] [place], [address] Urea nitrogen [Mass/Vol] 10 mg/dL Normal 4-19 [facility] Comment on above: Order Comment: 517-2 Performed By: #### L 500.4050, L503.0105, L506.1000, L100.0100, L500.4100, L501.9520 #### [facility] Laboratory [address] [place], [place], [address] Glomerular filtration rate ( GFR) estimation/1.73 sq m using serum, plasma, or whole bOrdered By: Kori Sethi on 12-04-2024 GFR/1.73 sq M.predicted among non-blacks MDRD (S/P/Bld) [Vol rate/Area] 133 mL/min/{1.73_m2} >60 [facility] Comment on above: mL/min/1.73m2 CKD-EP I Creatinine Equation (2020) Laboratory - Chemistry and C hemistry - challengeOrdered By: Kori Sethi on 12-04-2024 AST [Catalytic activity/Vol] 17 U/L <32 [facility] Potassium measurement (mass/ volume)Ordered By: Kori Sethi on 12-04-2024 Potassium (Unsp spec) [Mass/Vol] 3.6 mmol/L 3.3-5.1 [facility] Serum creatinine measurement (mass/volume)Ordered By: Kori Sethi on 12-04-2024 Creatinine [Mass/Vol] 0.27 mg/dL Low 0.70-1.20 [facility] Serum globulin measurementOr dered By: Kori Sethi on 12-04-2024 Globulin (S) [Mass/Vol] 3.7 g/dL 2.2-4.2 [facility] Serum glucose measurement (m ass/volume)Ordered By: oKri Sethi on 12-04-2024 Glucose [Mass/Vol] 120 mg/dL High 70-99 [facility] Serum or plasma alanine lyon otransferase (ALT) measurementOrdered By: Kori Sethi on 12-04-2024 ALT [Catalytic activity/Vol] 11 U/L <35 [facility] Serum or plasma albumin miguel angel urement (mass/volume)Ordered By: Kori Sethi on 12-04-2024 Albumin [Mass/Vol] 3.7 g/dL 3.5-5.0 [facility] Serum or plasma albumin/glob ulin mass ratioOrdered By: oKri Sethi on 12-04-2024 Albumin/Globulin [Mass ratio] 1.0 {ratio} 0.9-2.4 [facility] Serum or plasma alkaline raghu sphatase measurementOrdered By: Kori Sethi on 12-04-2024 ALP [Catalytic activity/Vol] 86 U/L 35-104 [facility] Serum or plasma calcium miguel angel urement (mass/volume)Ordered By: Kori Sethi on 12-04-2024 Calcium [Mass/Vol] 9.0 mg/dL 7.6-11.0 [facility] Serum or plasma urea nitroge n measurement (mass/volume)Ordered By: Kori Sethi on 12-04-2024 Urea nitrogen [Mass/Vol] 10 mg/dL 4-19 [facility] Sodium levelOrdered By: Bailey Sethi on 12-04-2024 Sodium [Moles/Vol] 139 mmol/L 133-145 [facility] T4 Total, Thyroxinon 025 T4 [Mass/Vol] 9.6 ug/dL Normal 4.8-13.9 [facility] Comment on above: Order Comment: 517-2 Performed By: #### L 500.4050, L503.0105, L506.1000, L100.0100, L500.4100, L501.9520 #### [facility] Laboratory [address] [place], [place], [id number] TSH DL <= 0.005 mIU/L QnOrde red By: Kori Sethi on 12-04-2024 TSH Qn 2.040 uIU/mL 0.300-4.200 [facility] Thyroid Stim Hormone (TSH)on 12-04-2024 TSH 2.040 uIU/mL Normal 0.300-4.200 [facility] Comment on above: Order Comment: 517-2 Performed By: #### L 500.4050, L503.0105, L506.1000, L100.0100, L500.4100, L501.9520 #### [facility] Laboratory [address] [place], [address] ThyroxineOrdered By: Kori Sethi on 12-04-2024 T4 [Mass/Vol] 9.6 ug/dL 4.8-13.9 [facility] Total proteinOrdered By: Shavonne Sethi on 12-04-2024 Protein [Mass/Vol] 7.4 g/dL 5.9-8.4 [facility] Absolute lymphocyte countOrd ered By: Kori Sethi on 10-06-2024 Lymphocytes Auto (Unsp spec) [#/Vol] 2.68 10*3/uL 0.83-4.51 [facility] Absolute neutrophil countOrd ered By: Kori Sethi on 10-06-2024 Neutrophils (Bld) [#/Vol] 5.5 10*3/uL 2.0-7.7 [facility] Anion gap in Serum or Plasma Ordered By: Kori Sethi on 10-06-2024 Anion gap [Moles/Vol] 14 mmol/L 5- [facility] Automated lymphocyte count a s percentage of total leukocytesOrdered By: Kori Sethi on 10-06-2024 Lymphocytes/100 WBC Auto (Unsp spec) 29.3 % - [facility] BUN/creatinine ratioOrdered By: Kori Sethi on 10-06-2024 Urea nitrogen/Creatinine [Mass ratio] 24.7 mg/mg High 10-20 [facility] Basophil percentageOrdered B y: Kori Sethi on 10-06-2024 Basophils/100 WBC (Bld) 0.4 % 0-1 [facility] Bilirubin, totalOrdered By: Kori Sethi on 10-06-2024 Bilirubin [Mass/Vol] 0.23 mg/dL 0.00-1.30 [facility] CBC W/Diff, Automatedon 09-13 Absolute Lymph 2.68 X10 3/uL Normal 0.83-4.51 [facility] Comment on above: Performed By: #### L 500.4050, L503.0105, L506.1000, L100.0100, L500.4100, L501.9520 #### [facility] Laboratory [address] [place], [address] Absolute Neut 5.5 X10 3/uL Normal 2.0-7.7 [facility] Comment on above: Performed By: #### L 500.4050, L503.0105, L506.1000, L100.0100, L500.4100, L501.9520 #### [facility] Laboratory [address] [place], [address] Basophils/100 WBC (Bld) 0.4 % Normal 0-1 [facility] Comment on above: Performed By: #### L 500.4050, L503.0105, L506.1000, L100.0100, L500.4100, L501.9520 #### [facility] Laboratory [address] [place], [address] Eosinophils/100 WBC (Bld) 3.5 % Normal 0-5 [facility] Comment on above: Performed By: #### L 500.4050, L503.0105, L506.1000, L100.0100, L500.4100, L501.9520 #### [facility] Laboratory [address] [place], [address] Erythrocyte distribution width (RBC) [Ratio] 15.4 % High 11.6-14.6 [facility] Comment on above: Performed By: #### L 500.4050, L503.0105, L506.1000, L100.0100, L500.4100, L501.9520 #### [facility] Laboratory [address] [place], [address] Hematocrit (Bld) [Volume fraction] 33.0 % Low 37-47 [facility] Comment on above: Performed By: #### L 500.4050, L503.0105, L506.1000, L100.0100, L500.4100, L501.9520 #### [facility] Laboratory [address] [place], [address] Hemoglobin (Bld) [Mass/Vol] 10.0 g/dL Low 12.0-15.0 [facility] Comment on above: Performed By: #### L 500.4050, L503.0105, L506.1000, L100.0100, L500.4100, L501.9520 #### [facility] Laboratory [address] [place], [address] IG% 0.400 Normal 0.0-0.9 [facility] Comment on above: Result Comment: IG% - Immature Granulocytes (promyelocytes, myelocytes and metamyelocytes) > 1% indicates that a LEFT SHIFT is Present. Performed By: #### L 500.4050, L503.0105, L506.1000, L100.0100, L500.4100, L501.9520 #### [facility] Laboratory [address] [place], [address] Lymphocytes/100 WBC (Bld) 29.3 % Normal 19-41 [facility] Comment on above: Performed By: #### L 500.4050, L503.0105, L506.1000, L100.0100, L500.4100, L501.9520 #### [facility] Laboratory [address] [place], [address] MCH (RBC) [Entitic mass] 25.3 pg Low 27.0-32.0 [facility] Comment on above: Performed By: #### L 500.4050, L503.0105, L506.1000, L100.0100, L500.4100, L501.9520 #### [facility] [address] [facility] [place], [address] MCHC (RBC) [Mass/Vol] 30.3 g/dL Low 32-36 [facility] Comment on above: Performed By: #### L 500.4050, L503.0105, L506.1000, L100.0100, L500.4100, L501.9520 #### [facility] Laboratory [address] [place], [address] MCV (RBC) [Entitic vol] 83.5 fL Normal 81-99 [facility] Comment on above: Performed By: #### L 500.4050, L503.0105, L506.1000, L100.0100, L500.4100, L501.9520 #### [facility] [address] [place], [address] Monocytes/100 WBC (Bld) 6.7 % Normal 0-10 [facility] Comment on above: Performed By: #### L 500.4050, L503.0105, L506.1000, L100.0100, L500.4100, L501.9520 #### [facility] Laboratory [address] [place], [address] Neutrophils/100 WBC (Bld) 59.7 % Normal 47-70 [facility] Comment on above: Performed By: #### L 500.4050, L503.0105, L506.1000, L100.0100, L500.4100, L501.9520 #### [facility] Laboratory [address] [place], [address] Nucleated RBC (Bld) [#/Vol] 0 10*3/uL Normal 0-5 [facility] Comment on above: Performed By: #### L 500.4050, L503.0105, L506.1000, L100.0100, L500.4100, L501.9520 #### [facility] Laboratory [address] [place], [address] Platelet mean volume (Bld) [Entitic vol] 9.6 fL Normal 6.2-12.0 [facility] Comment on above: Performed By: #### L 500.4050, L503.0105, L506.1000, L100.0100, L500.4100, L501.9520 #### [facility] Laboratory [address] [place], [address] Platelets (Bld) [#/Vol] 357 10*3/uL Normal 150-450 [facility] Comment on above: Performed By: #### L 500.4050, L503.0105, L506.1000, L100.0100, L500.4100, L501.9520 #### [facility] [address] [place], [address] RBC (Bld) [#/Vol] 3.95 10*6/uL Low 4.2-5.4 [facility] Comment on above: Performed By: #### L 500.4050, L503.0105, L506.1000, L100.0100, L500.4100, L501.9520 #### [facility] [address] [place], [address] RDW SD 47.2 fl High 35.1-43.9 [facility] Comment on above: Performed By: #### L 500.4050, L503.0105, L506.1000, L100.0100, L500.4100, L501.9520 #### [facility] [address] [place], [address] WBC (Bld) [#/Vol] 9.2 10*3/uL Normal 4.4-11.0 [facility] Comment on above: Performed By: #### L 500.4050, L503.0105, L506.1000, L100.0100, L500.4100, L501.9520 #### [facility] [address] [place], [address] Carbon dioxide, total [Moles /volume] in Central venous bloodOrdered By: Kori Sethi on 10-06-2024 CO2 [Moles/Vol] 26.1 mmol/L 21.0-32.0 [facility] Chloride assayOrdered By: Edenilson Sethi on 10-06-2024 Chloride [Moles/Vol] 98 mmol/L 98-108 [facility] Comprehensive Metabolic Prof ilon 10-06-2024 Albumin [Mass/Vol] 3.6 g/dL Normal 3.5-5.0 [facility] Comment on above: Performed By: #### L 500.4050, L503.0105, L506.1000, L100.0100, L500.4100, L501.9520 #### [facility] [address] [place], [address] Albumin/Globulin [Mass ratio] 1.0 {ratio} Normal 0.9-2.4 [facility] Comment on above: Performed By: #### L 500.4050, L503.0105, L506.1000, L100.0100, L500.4100, L501.9520 #### [facility] [facility] [address] [place], [address] ALK PHOS 77 U/L Normal 35-104 [facility] Comment on above: Performed By: #### L 500.4050, L503.0105, L506.1000, L100.0100, L500.4100, L501.9520 #### [facility] [address] [place], [address] ALT [Catalytic activity/Vol] 10 U/L Normal <=34 [facility] Comment on above: Performed By: #### L 500.4050, L503.0105, L506.1000, L100.0100, L500.4100, L501.9520 #### [facility] [address] [place], [address] AST [Catalytic activity/Vol] 15 U/L Normal <=31 [facility] Comment on above: Performed By: #### L 500.4050, L503.0105, L506.1000, L100.0100, L500.4100, L501.9520 #### [facility] [address] [place], [address] Bilirubin [Mass/Vol] 0.23 mg/dL Normal 0.00-1.30 [facility] Comment on above: Performed By: #### L 500.4050, L503.0105, L506.1000, L100.0100, L500.4100, L501.9520 #### [facility] [address] [place], [address] BUN/CRE 24.7 RATIO High 10-20 [facility] Comment on above: Performed By: #### L 500.4050, L503.0105, L506.1000, L100.0100, L500.4100, L501.9520 #### [facility] [address] [place], [address] Calcium [Mass/Vol] 8.3 mg/dL Normal 7.6-11.0 [facility] Comment on above: Performed By: #### L 500.4050, L503.0105, L506.1000, L100.0100, L500.4100, L501.9520 #### [facility] [address] [place], [address] Chloride [Moles/Vol] 98 mmol/L Normal 98-108 [facility] Comment on above: Performed By: #### L 500.4050, L503.0105, L506.1000, L100.0100, L500.4100, L501.9520 #### [facility] [address] [place], [address] CO2 [Moles/Vol] 26.1 mmol/L Normal 21.0-32.0 [facility] Comment on above: Performed By: #### L 500.4050, L503.0105, L506.1000, L100.0100, L500.4100, L501.9520 #### [facility] [address] [place], [address] Creatinine [Mass/Vol] 0.28 mg/dL Low 0.70-1.20 [facility] Comment on above: Performed By: #### L 500.4050, L503.0105, L506.1000, L100.0100, L500.4100, L501.9520 #### [facility] [address] [place], [address] GAP 14 Normal 5-15 [facility] Comment on above: Performed By: #### L 500.4050, L503.0105, L506.1000, L100.0100, L500.4100, L501.9520 #### [facility] [address] [place], [address] GFR/1.73 sq M.predicted among non-blacks MDRD (S/P/Bld) [Vol rate/Area] 131 mL/min/{1.73_m2} Normal >60 [facility] Comment on above: Result Comment: mL/m in/1.73m2 CKD-EPI Creatinine Equation (2020) Performed By: #### L 500.4050, L503.0105, L506.1000, L100.0100, L500.4100, L501.9520 #### [facility] [address] [place], [address] Globulin (S) [Mass/Vol] 3.5 g/dL Normal 2.2-4.2 [facility] Comment on above: Performed By: #### L 500.4050, L503.0105, L506.1000, L100.0100, L500.4100, L501.9520 #### [facility] [address] [place], [address] Glucose [Mass/Vol] 127 mg/dL High 70-99 [facility] Comment on above: Performed By: #### L 500.4050, L503.0105, L506.1000, L100.0100, L500.4100, L501.9520 #### [facility] [address] [place], [address] Potassium [Moles/Vol] 3.7 mmol/L Normal 3.3-5.1 [facility] Comment on above: Performed By: #### L 500.4050, L503.0105, L506.1000, L100.0100, L500.4100, L501.9520 #### [facility] [address] [place], [address] Sodium [Moles/Vol] 138 mmol/L Normal 133-145 [facility] Comment on above: Performed By: #### L 500.4050, L503.0105, L506.1000, L100.0100, L500.4100, L501.9520 #### [facility] [address] [place], [address] T PROT 7.1 g/dL Normal 5.9-8.4 [facility] Comment on above: Performed By: #### L 500.4050, L503.0105, L506.1000, L100.0100, L500.4100, L501.9520 #### [facility] [address] [place], [address] Urea nitrogen [Mass/Vol] 7 mg/dL Normal 4-19 [facility] Comment on above: Performed By: #### L 500.4050, L503.0105, L506.1000, L100.0100, L500.4100, L501.9520 #### [facility] [address] [place], [address] Eosinophil percentageOrdered By: Kori Sethi on 10-06-2024 Eosinophils/100 WBC (Bld) 3.5 % 0-5 [facility] Erythrocyte distribution wid th ratioOrdered By: Kori Sethi on 10-06-2024 Erythrocyte distribution width (RBC) [Ratio] 15.4 % High 11.6-14.6 [facility] Erythrocyte distribution wid th standard deviationOrdered By: Kori Sethi on 10-06-2024 Erythrocyte distribution width (RBC) [Ratio] 47.2 fl High 35.1-43.9 [facility] Glomerular filtration rate ( GFR) estimation/1.73 sq m using serum, plasma, or whole bOrdered By: Kori Sethi on 10-06-2024 GFR/1.73 sq M.predicted among non-blacks MDRD (S/P/Bld) [Vol rate/Area] 131 mL/min/{1.73_m2} >60 [facility] Comment on above: mL/min/1.73m2 CKD-EP I Creatinine Equation (2020) Hematocrit Auto (Bld) [Volum e fraction]Ordered By: Kori Sethi on 10-06-2024 Hematocrit (Bld) [Volume fraction] 33.0 % Low 37-47 [facility] Hemoglobin measurementOrdere d By: Kori Sethi on 10-06-2024 Hemoglobin (Bld) [Mass/Vol] 10.0 g/dL Low 12.0-15.0 [facility] Immature granulocytes/100 WB C Auto (Bld)Ordered By: Kori Sethi on 10-06-2024 Immature granulocytes/100 WBC (Bld) 0.400 % 0.0-0.9 [facility] Comment on above: IG% - Immature Granu locytes (promyelocytes, myelocytes and metamyelocytes) > 1% indicates that a LEFT SHIFT is Present. Laboratory - Chemistry and C hemistry - challengeOrdered By: Kori Sethi on 10-06-2024 AST [Catalytic activity/Vol] 15 U/L <32 [facility] MCV (mean corpuscular volume ) determinationOrdered By: Kori Sethi on 10-06-2024 MCV (RBC) [Entitic vol] 83.5 fL 81-99 [facility] Mean corpuscular hemoglobin (MCH) determinationOrdered By: Kori Sethi on 10-06-2024 MCH (RBC) [Entitic mass] 25.3 pg Low 27.0-32.0 [facility] Mean corpuscular hemoglobin concentration (MCHC) determinationOrdered By: Kori Sethi on 10-06-2024 MCHC (RBC) [Mass/Vol] 30.3 g/dL Low 32-36 [facility] Mean platelet volume determi nationOrdered By: Kori Sethi on 10-06-2024 Platelet mean volume (Bld) [Entitic vol] 9.6 fL 6.2-12.0 [facility] Monocyte percentageOrdered B y: Kori Sethi on 10-06-2024 Monocytes/100 WBC (Bld) 6.7 % 0-10 [facility] Neutrophil percentageOrdered By: Kori Sethi on 10-06-2024 Neutrophils/100 WBC (Bld) 59.7 % 47-70 [facility] Nucleated red blood cell per centageOrdered By: Kori Sethi on 10-06-2024 Nucleated RBC/100 WBC (Bld) [Ratio] 0 % 0-5 [facility] Platelet countOrdered By: Edenilson Sethi on 10-06-2024 Platelets (Bld) [#/Vol] 357 10*3/uL 150-450 [facility] Potassium measurement (mass/ volume)Ordered By: Kori Sethi on 10-06-2024 Potassium (Unsp spec) [Mass/Vol] 3.7 mmol/L 3.3-5.1 [facility] RBC Auto (Bld) [#/Vol]Ordere d By: Kori Sethi on 10-06-2024 RBC (Bld) [#/Vol] 3.95 10*6/uL Low 4.2-5.4 [facility] Serum creatinine measurement (mass/volume)Ordered By: Kori Sethi on 10-06-2024 Creatinine [Mass/Vol] 0.28 mg/dL Low 0.70-1.20 [facility] Serum globulin measurementOr dered By: Kori Sethi on 10-06-2024 Globulin (S) [Mass/Vol] 3.5 g/dL 2.2-4.2 [facility] Serum glucose measurement (m ass/volume)Ordered By: Kori Sethi on 10-06-2024 Glucose [Mass/Vol] 127 mg/dL High 70-99 [facility] Serum or plasma alanine lyon otransferase (ALT) measurementOrdered By: Kori Sethi on 10-06-2024 ALT [Catalytic activity/Vol] 10 U/L <35 [facility] Serum or plasma albumin miguel angel urement (mass/volume)Ordered By: Kori Sethi on 10-06-2024 Albumin [Mass/Vol] 3.6 g/dL 3.5-5.0 [facility] Serum or plasma albumin/glob ulin mass ratioOrdered By: Kori Sethi on 10-06-2024 Albumin/Globulin [Mass ratio] 1.0 {ratio} 0.9-2.4 [facility] Serum or plasma alkaline raghu sphatase measurementOrdered By: Kori Sethi on 10-06-2024 ALP [Catalytic activity/Vol] 77 U/L 35-104 [facility] Serum or plasma calcium miguel angel urement (mass/volume)Ordered By: Kori Sethi on 10-06-2024 Calcium [Mass/Vol] 8.3 mg/dL 7.6-11.0 [facility] Serum or plasma urea nitroge n measurement (mass/volume)Ordered By: Kori Sethi on 10-06-2024 Urea nitrogen [Mass/Vol] 7 mg/dL 4-19 [facility] Sodium levelOrdered By: Bailey Sethi on 10-06-2024 Sodium [Moles/Vol] 138 mmol/L 133-145 [facility] Total proteinOrdered By: Shavonne Sethi on 10-06-2024 Protein [Mass/Vol] 7.1 g/dL 5.9-8.4 [facility] White blood cell (WBC) count Ordered By: Kori Sethi on 10-06-2024 WBC (Bld) [#/Vol] 9.2 10*3/uL 4.4-11.0 [facility] Anion gap in Serum or Plasma Ordered By: Lavon Vicente on 09-06-2024 Anion gap [Moles/Vol] 11 mmol/L 5-15 [facility] BUN/creatinine ratioOrdered By: Lavon Vicente on 09-06-2024 Urea nitrogen/Creatinine [Mass ratio] 35.3 mg/mg High 10-20 [facility] Bilirubin, totalOrdered By: Lavon Vicente on 09-06-2024 Bilirubin [Mass/Vol] mg/dL 0.00-1.30 [facility] CBC-Complete Blood Cnt No Di ffon 09-06-2024 Erythrocyte distribution width (RBC) [Ratio] 16.5 % High 11.6-14.6 [facility] Comment on above: Order Comment: 517.2 Performed By: #### L 400.0001, L500.2500, L100.0100, M100.2200 #### [facility] [address] [place], [address] Hematocrit (Bld) [Volume fraction] 31.5 % Low 37-47 [facility] Comment on above: Order Comment: 517.2 Performed By: #### L 400.0001, L500.2500, L100.0100, M100.2200 #### [facility] [address] [place], [address] Hemoglobin (Bld) [Mass/Vol] 9.7 g/dL Low 12.0-15.0 [facility] Comment on above: Order Comment: 517.2 Performed By: #### L 400.0001, L500.2500, L100.0100, M100.2200 #### [facility] [address] [place], [address] MCH (RBC) [Entitic mass] 26.0 pg Low 27.0-32.0 [facility] Comment on above: Order Comment: 517.2 Performed By: #### L 400.0001, L500.2500, L100.0100, M100.2200 #### [facility] [address] [place], [address] MCHC (RBC) [Mass/Vol] 30.8 g/dL Low 32-36 [facility] Comment on above: Order Comment: 517.2 Performed By: #### L 400.0001, L500.2500, L100.0100, M100.2200 #### [facility] [address] [place], [address] MCV (RBC) [Entitic vol] 84.5 fL Normal 81-99 [facility] Comment on above: Order Comment: 517.2 Performed By: #### L 400.0001, L500.2500, L100.0100, M100.2200 #### [facility] [address] [place], [address] Platelet mean volume (Bld) [Entitic vol] 9.6 fL Normal 6.2-12.0 [facility] Comment on above: Order Comment: 517.2 Performed By: #### L 400.0001, L500.2500, L100.0100, M100.2200 #### [facility] [address] [place], [address] Platelets (Bld) [#/Vol] 295 10*3/uL Normal 150-450 [facility] Comment on above: Order Comment: 517.2 Performed By: #### L 400.0001, L500.2500, L100.0100, M100.2200 #### [facility] [address] [place], [address] RBC (Bld) [#/Vol] 3.73 10*6/uL Low 4.2-5.4 [facility] Comment on above: Order Comment: 517.2 Performed By: #### L 400.0001, L500.2500, L100.0100, M100.2200 #### [facility] [address] [place], [address] RDW SD 51.1 fl High 35.1-43.9 [facility] Comment on above: Order Comment: 517.2 Performed By: #### L 400.0001, L500.2500, L100.0100, M100.2200 #### [facility] [address] [place], [address] WBC (Bld) [#/Vol] 6.5 10*3/uL Normal 4.4-11.0 [facility] Comment on above: Order Comment: 517.2 Performed By: #### L 400.0001, L500.2500, L100.0100, M100.2200 #### [facility] [address] [place], [address] Carbon dioxide, total [Moles /volume] in Central venous bloodOrdered By: Lavon Vicente on 09-06-2024 CO2 [Moles/Vol] 27.9 mmol/L 21.0-32.0 [facility] Chloride assayOrdered By: Cristi Vicente on 09-06-2024 Chloride [Moles/Vol] 103 mmol/L 98-108 [facility] Comprehensive Metabolic Prof ilon 09-06-2024 Albumin [Mass/Vol] 3.4 g/dL Low 3.5-5.0 [facility] Comment on above: Order Comment: 517.2 Performed By: #### L 400.0001, L500.2500, L100.0100, M100.2200 #### [facility] [address] [place], [address] Albumin/Globulin [Mass ratio] 1.0 {ratio} Normal 0.9-2.4 [facility] Comment on above: Order Comment: 517.2 Performed By: #### L 400.0001, L500.2500, L100.0100, M100.2200 #### [facility] [address] [place], [address] ALK PHOS 59 U/L Normal 35-104 [facility] Comment on above: Order Comment: 517.2 Performed By: #### L 400.0001, L500.2500, L100.0100, M100.2200 #### [facility] [address] [place], [address] ALT [Catalytic activity/Vol] 15 U/L Normal <=34 [facility] Comment on above: Order Comment: 517.2 Performed By: #### L 400.0001, L500.2500, L100.0100, M100.2200 #### [facility] [address] [place], [address] AST [Catalytic activity/Vol] 20 U/L Normal <=31 [facility] Comment on above: Order Comment: 517.2 Performed By: #### L 400.0001, L500.2500, L100.0100, M100.2200 #### [facility] [address] [place], [address] BUN/CRE 35.3 RATIO High 10-20 [facility] Comment on above: Order Comment: 517.2 Performed By: #### L 400.0001, L500.2500, L100.0100, M100.2200 #### [facility] [address] [place], [address] Calcium [Mass/Vol] 6.8 mg/dL Low 7.6-11.0 [facility] Comment on above: Order Comment: 517.2 Performed By: #### L 400.0001, L500.2500, L100.0100, M100.2200 #### [facility] [address] [place], [address] Chloride [Moles/Vol] 103 mmol/L Normal 98-108 [facility] Comment on above: Order Comment: 517.2 Performed By: #### L 400.0001, L500.2500, L100.0100, M100.2200 #### [facility] [address] [place], [address] CO2 [Moles/Vol] 27.9 mmol/L Normal 21.0-32.0 [facility] Comment on above: Order Comment: 517.2 Performed By: #### L 400.0001, L500.2500, L100.0100, M100.2200 #### [facility] [address] [place], [address] Creatinine [Mass/Vol] 0.25 mg/dL Low 0.70-1.20 [facility] Comment on above: Order Comment: 517.2 Performed By: #### L 400.0001, L500.2500, L100.0100, M100.2200 #### [facility] [address] [place], [address] GAP 11 Normal 5-15 [facility] Comment on above: Order Comment: 517.2 Performed By: #### L 400.0001, L500.2500, L100.0100, M100.2200 #### [facility] [address] [place], [address] GFR/1.73 sq M.predicted among non-blacks MDRD (S/P/Bld) [Vol rate/Area] 135 mL/min/{1.73_m2} Normal >60 [facility] Comment on above: Order Comment: 517.2 Result Comment: mL/m in/1.73m2 CKD-EPI Creatinine Equation (2020) Performed By: #### L 400.0001, L500.2500, L100.0100, M100.2200 #### [facility] [address] [place], [address] Globulin (S) [Mass/Vol] 3.4 g/dL Normal 2.2-4.2 [facility] Comment on above: Order Comment: 517.2 Performed By: #### L 400.0001, L500.2500, L100.0100, M100.2200 #### [facility] [address] [place], [address] Glucose [Mass/Vol] 110 mg/dL High 70-99 [facility] Comment on above: Order Comment: 517.2 Performed By: #### L 400.0001, L500.2500, L100.0100, M100.2200 #### [facility] [address] [place], [address] Potassium [Moles/Vol] 3.9 mmol/L Normal 3.3-5.1 [facility] Comment on above: Order Comment: 517.2 Performed By: #### L 400.0001, L500.2500, L100.0100, M100.2200 #### [facility] [address] [place], [address] Sodium [Moles/Vol] 142 mmol/L Normal 133-145 [facility] Comment on above: Order Comment: 517.2 Performed By: #### L 400.0001, L500.2500, L100.0100, M100.2200 #### [facility] [address] [place], [address] T BILI < 0.15 Normal 0.00-1.30 [facility] Comment on above: Order Comment: 517.2 Performed By: #### L 400.0001, L500.2500, L100.0100, M100.2200 #### [facility] [address] [place], [address] T PROT 6.9 g/dL Normal 5.9-8.4 [facility] Comment on above: Order Comment: 517.2 Performed By: #### L 400.0001, L500.2500, L100.0100, M100.2200 #### [facility] [address] [place], [address] Urea nitrogen [Mass/Vol] 9 mg/dL Normal 4-19 [facility] Comment on above: Order Comment: 517.2 Performed By: #### L 400.0001, L500.2500, L100.0100, M100.2200 #### [facility] [address] [place], [address] Erythrocyte distribution wid th (RBC) [Ratio]Ordered By: Lavon Vicente on 09-06-2024 Erythrocyte distribution width (RBC) [Entitic vol] 51.1 fL High 35.1-43.9 [facility] Erythrocyte distribution wid th ratioOrdered By: Lavon Vicente on 09-06-2024 Erythrocyte distribution width (RBC) [Ratio] 16.5 % High 11.6-14.6 [facility] Erythrocyte distribution wid th standard deviationOrdered By: Lavon Vicente on 09-06-2024 Erythrocyte distribution width (RBC) [Ratio] 51.1 fl High 35.1-43.9 [facility] GFR/1.73 sq M.predicted juvenal g non-blacks MDRD (S/P/Bld) [Vol rate/Area]Ordered By: Lavon Vicente on 09-06-2024 Estimated GFR (MDRD) Non-Af Amer 135 >60 [facility] Comment on above: mL/min/1.73m2 CKD-EP I Creatinine Equation (2020) Glomerular filtration rate ( GFR) estimation/1.73 sq m using serum, plasma, or whole bOrdered By: Lavon Vicente on 09-06-2024 GFR/1.73 sq M.predicted among non-blacks MDRD (S/P/Bld) [Vol rate/Area] 135 mL/min/{1.73_m2} >60 [facility] Comment on above: mL/min/1.73m2 CKD-EP I Creatinine Equation (2020) Hematocrit Auto (Bld) [Volum e fraction]Ordered By: Lavon Vicente on 09-06-2024 Hematocrit (Bld) [Volume fraction] 31.5 % Low 37-47 [facility] Hemoglobin measurementOrdere d By: Lavon Vicente on 09-06-2024 Hemoglobin (Bld) [Mass/Vol] 9.7 g/dL Low 12.0-15.0 [facility] L506.1001on 09-06-2024 Vitamin D 25-OH 31.2 ng/mL Normal 30-100 [facility] Comment on above: Order Comment: 517.2 Result Comment: Rosalba min D Status Deficiency: <20 ng/mL (50nmol/L) Insufficiency: 20-30 ng/mL (50-75 nmol/L) Sufficiency: 30-100 ng/mL (75-250 nmol/L) Toxicity: >100 ng/mL (>250 nmol/L) Performed By: #### L 400.0001, L500.2500, L100.0100, M100.2200 #### [facility] [address] [place], [address] Laboratory - Chemistry and C hemistry - challengeOrdered By: Laovn Vicente on 09-06-2024 AST [Catalytic activity/Vol] 20 U/L <32 [facility] MCV (mean corpuscular volume ) determinationOrdered By: Lavon Vicente on 09-06-2024 MCV (RBC) [Entitic vol] 84.5 fL 81-99 [facility] Mean corpuscular hemoglobin (MCH) determinationOrdered By: Lavon Vicente on 09-06-2024 MCH (RBC) [Entitic mass] 26.0 pg Low 27.0-32.0 [facility] Mean corpuscular hemoglobin concentration (MCHC) determinationOrdered By: Lavon Vicente on 09-06-2024 MCHC (RBC) [Mass/Vol] 30.8 g/dL Low 32-36 [facility] Mean platelet volume determi nationOrdered By: Lavon Vicente on 09-06-2024 Platelet mean volume (Bld) [Entitic vol] 9.6 fL 6.2-12.0 [facility] Platelet countOrdered By: Cristi Vicente on 09-06-2024 Platelets (Bld) [#/Vol] 295 10*3/uL 150-450 [facility] Potassium (Unsp spec) [Mass/ Vol]Ordered By: Lavon Vicente on 09-06-2024 Potassium [Moles/Vol] 3.9 mmol/L 3.3-5.1 [facility] Potassium measurement (mass/ volume)Ordered By: Lavon Vicente on 09-06-2024 Potassium (Unsp spec) [Mass/Vol] 3.9 mmol/L 3.3-5.1 [facility] RBC Auto (Bld) [#/Vol]Ordere d By: Lavon Vicente on 09-06-2024 RBC (Bld) [#/Vol] 3.73 10*6/uL Low 4.2-5.4 [facility] Serum creatinine measurement (mass/volume)Ordered By: Lavon Vicente on 09-06-2024 Creatinine [Mass/Vol] 0.25 mg/dL Low 0.70-1.20 [facility] Serum globulin measurementOr dered By: Lavon Vicente on 09-06-2024 Globulin (S) [Mass/Vol] 3.4 g/dL 2.2-4.2 [facility] Serum glucose measurement (m ass/volume)Ordered By: Lavon Vicente on 09-06-2024 Glucose [Mass/Vol] 110 mg/dL High 70-99 [facility] Serum or plasma alanine lyon otransferase (ALT) measurementOrdered By: Lavon Vicente on 09-06-2024 ALT [Catalytic activity/Vol] 15 U/L <35 [facility] Serum or plasma albumin miguel angel urement (mass/volume)Ordered By: Lavon Vicente on 09-06-2024 Albumin [Mass/Vol] 3.4 g/dL Low 3.5-5.0 [facility] Serum or plasma albumin/glob ulin mass ratioOrdered By: Lavon Vicente on 09-06-2024 Albumin/Globulin [Mass ratio] 1.0 {ratio} 0.9-2.4 [facility] Serum or plasma alkaline raghu sphatase measurementOrdered By: Lavon Vicente on 09-06-2024 ALP [Catalytic activity/Vol] 59 U/L 35-104 [facility] Serum or plasma calcium miguel angel urement (mass/volume)Ordered By: Lavon Vicente on 09-06-2024 Calcium [Mass/Vol] 6.8 mg/dL Low 7.6-11.0 [facility] Serum or plasma urea nitroge n measurement (mass/volume)Ordered By: Lavon Vicente on 09-06-2024 Urea nitrogen [Mass/Vol] 9 mg/dL 4-19 [facility] Sodium levelOrdered By: Lavon Vicente on 09-06-2024 Sodium [Moles/Vol] 142 mmol/L 133-145 [facility] T4 Free Directon 09-06-2024 T4 FREE DIRECT 1.40 ng/dL Normal 0.76-1.46 [facility] Comment on above: Order Comment: 517.2 Performed By: #### L 400.0001, L500.2500, L100.0100, M100.2200 #### [facility] Laboratory [address] [place], [address] T4 freeOrdered By: Lavon syed on 09-06-2024 Free T4 [Mass/Vol] 1.40 ng/dL 0.76-1.46 [facility] TSH DL <= 0.005 mIU/L QnOrde red By: Lavon Vicente on 09-06-2024 Thyroid Stimulating Hormone (TSH) 2.120 uIU/mL 0.300-4.200 [facility] TSH Qn 2.120 uIU/mL 0.300-4.200 [facility] Thyroid Stim Hormone (TSH)on 09-06-2024 TSH 2.120 uIU/mL Normal 0.300-4.200 [facility] Comment on above: Order Comment: 517.2 Performed By: #### L 400.0001, L500.2500, L100.0100, M100.2200 #### [facility] Laboratory [address] [place], [address] Total proteinOrdered By: Estefany Vicente on 09-06-2024 Protein [Mass/Vol] 6.9 g/dL 5.9-8.4 [facility] Vitamin D, 25-hydroxyOrdered By: Lavon Vicente on 09-06-2024 Vitamin D 25-Hydroxy 31.2 ng/mL 30-100 [facility] Comment on above: Vitamin D StatusDefi ciency: <20 ng/mL (50nmol/L)Insufficiency: 20-30 ng/mL (50-75 nmol/L)Sufficiency: 30-100 ng/mL (75-250 nmol/L)Toxicity: >100 ng/mL (>250 nmol/L) White blood cell (WBC) count Ordered By: Lavon Vicente on 09-06-2024 WBC (Bld) [#/Vol] 6.5 10*3/uL 4.4-11.0 [facility] Serum or plasma thyroid stim ulating hormone (TSH) measurement (units/volume)Ordered By: Kori Sethi on 07-25-2024 TSH Qn 0.989 uIU/mL 0.358-3.740 [facility] TSH QnOrdered By: Kori patterson on 07-25-2024 Thyroid Stimulating Hormone (TSH) 0.989 uIU/mL 0.358-3.740 [facility] Thyroid Stim Hormone (TSH)on 07-25-2024 TSH 0.989 uIU/mL Normal 0.358-3.740 [facility] Comment on above: Order Comment: 517.2 Performed By: #### L 400.0001, L500.2500, L100.0100, M100.2200 #### [facility] Laboratory [address] [place], [place], [id number] Absolute lymphocyte countOrd ered By: Kori Sethi on 07-14-2024 Lymphocytes Auto (Unsp spec) [#/Vol] 2.86 10*3/uL 0.83-4.51 [facility] Absolute neutrophil countOrd ered By: Kori Sethi on 07-14-2024 Neutrophils (Bld) [#/Vol] 5.7 10*3/uL 2.0-7.7 [facility] Albumin to globulin ratioOrd ered By: Kori Sethi on 07-14-2024 Albumin/Globulin [Mass ratio] 0.6 {ratio} Low 0.9-2.4 [facility] Automated lymphocyte count a s percentage of total leukocytesOrdered By: Kori Sethi on 07-14-2024 Lymphocytes/100 WBC Auto (Unsp spec) 30.2 % 19-41 [facility] Basophil percentageOrdered B y: Kori Sethi on 07-14-2024 Basophils/100 WBC (Bld) 0.5 % 0-1 [facility] Bilirubin, totalOrdered By: Kori Sethi on 07-14-2024 Bilirubin [Mass/Vol] 0.20 mg/dL 0.20-1.00 [facility] Comment on above: For patients on eltr ombopag therapy, use of Dimension [place] TBIL is not recommended. Blood urea nitrogen (BUN)/cr eatinine ratioOrdered By: Kori Sethi on 07-14-2024 Urea nitrogen/Creatinine [Mass ratio] 43.2 mg/mg High 10-20 [facility] CBC W/Diff, Automatedon - Absolute Lymph 2.86 X10 3/uL Normal 0.83-4.51 [facility] Comment on above: Order Comment: 517-2 Performed By: #### L 400.0001, L500.2500, L100.0100, M100.2200 #### [facility] Laboratory [address] [place], [address] Absolute Neut 5.7 X10 3/uL Normal 2.0-7.7 [facility] Comment on above: Order Comment: 517-2 Performed By: #### L 400.0001, L500.2500, L100.0100, M100.2200 #### [facility] Laboratory [address] [place], [address] Basophils/100 WBC (Bld) 0.5 % Normal 0-1 [facility] Comment on above: Order Comment: 517-2 Performed By: #### L 400.0001, L500.2500, L100.0100, M100.2200 #### [facility] Laboratory [address] [place], [address] Eosinophils/100 WBC (Bld) 2.5 % Normal 0-5 [facility] Comment on above: Order Comment: 517-2 Performed By: #### L 400.0001, L500.2500, L100.0100, M100.2200 #### [facility] Laboratory [address] [place], [address] Erythrocyte distribution width (RBC) [Ratio] 16.2 % High 11.6-14.6 [facility] Comment on above: Order Comment: 517-2 Performed By: #### L 400.0001, L500.2500, L100.0100, M100.2200 #### [facility] Laboratory [address] [place], [address] Hematocrit (Bld) [Volume fraction] 32.1 % Low 37-47 [facility] Comment on above: Order Comment: 517-2 Performed By: #### L 400.0001, L500.2500, L100.0100, M100.2200 #### [facility] Laboratory [address] [place], [address] Hemoglobin (Bld) [Mass/Vol] 9.9 g/dL Low 12.0-15.0 [facility] Comment on above: Order Comment: 517-2 Performed By: #### L 400.0001, L500.2500, L100.0100, M100.2200 #### [facility] Laboratory [address] [place], [address] IG% 0.400 Normal 0.0-0.9 [facility] Comment on above: Order Comment: 517-2 Result Comment: IG% - Immature Granulocytes (promyelocytes, myelocytes and metamyelocytes) > 1% indicates that a LEFT SHIFT is Present. Performed By: #### L 400.0001, L500.2500, L100.0100, M100.2200 #### [facility] Laboratory [address] [place], [address] Lymphocytes/100 WBC (Bld) 30.2 % Normal 19-41 [facility] Comment on above: Order Comment: 517-2 Performed By: #### L 400.0001, L500.2500, L100.0100, M100.2200 #### [facility] Laboratory [address] [place], [address] MCH (RBC) [Entitic mass] 25.7 pg Low 27.0-32.0 [facility] Comment on above: Order Comment: 517-2 Performed By: #### L 400.0001, L500.2500, L100.0100, M100.2200 #### [facility] Laboratory [address] [place], [address] MCHC (RBC) [Mass/Vol] 30.8 g/dL Low 32-36 [facility] Comment on above: Order Comment: 517-2 Performed By: #### L 400.0001, L500.2500, L100.0100, M100.2200 #### [facility] Laboratory [address] [place], [address] MCV (RBC) [Entitic vol] 83.4 fL Normal 81-99 [facility] Comment on above: Order Comment: 517-2 Performed By: #### L 400.0001, L500.2500, L100.0100, M100.2200 #### [facility] Laboratory [address] [place], [address] Monocytes/100 WBC (Bld) 6.8 % Normal 0-10 [facility] Comment on above: Order Comment: 517-2 Performed By: #### L 400.0001, L500.2500, L100.0100, M100.2200 #### [facility] Laboratory [address] [place], [address] Neutrophils/100 WBC (Bld) 59.6 % Normal 47-70 [facility] Comment on above: Order Comment: 517-2 Performed By: #### L 400.0001, L500.2500, L100.0100, M100.2200 #### [facility] Laboratory [address] [place], [address] Nucleated RBC (Bld) [#/Vol] 0 10*3/uL Normal 0-5 [facility] Comment on above: Order Comment: 517-2 Performed By: #### L 400.0001, L500.2500, L100.0100, M100.2200 #### [facility] Laboratory [address] [place], [address] Platelet mean volume (Bld) [Entitic vol] 9.2 fL Normal 6.2-12.0 [facility] Comment on above: Order Comment: 517-2 Performed By: #### L 400.0001, L500.2500, L100.0100, M100.2200 #### [facility] Laboratory [address] [place], [address] Platelets (Bld) [#/Vol] 338 10*3/uL Normal 150-450 [facility] Comment on above: Order Comment: 517-2 Performed By: #### L 400.0001, L500.2500, L100.0100, M100.2200 #### [facility] Laboratory [address] [place], [address] RBC (Bld) [#/Vol] 3.85 10*6/uL Low 4.2-5.4 [facility] Comment on above: Order Comment: 517-2 Performed By: #### L 400.0001, L500.2500, L100.0100, M100.2200 #### [facility] Laboratory [address] [place], [address] RDW SD 48.8 fl High 35.1-43.9 [facility] Comment on above: Order Comment: 517-2 Performed By: #### L 400.0001, L500.2500, L100.0100, M100.2200 #### [facility] Laboratory [address] [place], [address] WBC (Bld) [#/Vol] 9.5 10*3/uL Normal 4.4-11.0 [facility] Comment on above: Order Comment: 517-2 Performed By: #### L 400.0001, L500.2500, L100.0100, M100.2200 #### [facility] Laboratory [address] [place], [address] Carbon dioxide measurementOr dered By: Kori Sethi on 07-14-2024 CO2 [Moles/Vol] 32.0 mmol/L 21.0-32.0 [facility] Chloride measurementOrdered By: Kori Sethi on 07-14-2024 Chloride [Moles/Vol] 102 mmol/L 98-107 [facility] Comprehensive Metabolic Prof ilon 07-14-2024 Albumin [Mass/Vol] 2.8 g/dL Low 3.2-5.0 [facility] Comment on above: Order Comment: 517-2 Performed By: #### L 400.0001, L500.2500, L100.0100, M100.2200 #### [facility] Laboratory [address] [place], [address] Albumin/Globulin [Mass ratio] 0.6 {ratio} Low 0.9-2.4 [facility] Comment on above: Order Comment: 517-2 Performed By: #### L 400.0001, L500.2500, L100.0100, M100.2200 #### [facility] Laboratory [address] [place], [address] ALK P 86 U/L Normal 45-117 [facility] Comment on above: Order Comment: 517-2 Performed By: #### L 400.0001, L500.2500, L100.0100, M100.2200 #### [facility] Laboratory [address] [place], [address] ALT [Catalytic activity/Vol] 15 U/L Normal 13-56 [facility] Comment on above: Order Comment: 517-2 Performed By: #### L 400.0001, L500.2500, L100.0100, M100.2200 #### [facility] Laboratory [address] [place], [address] AST [Catalytic activity/Vol] 8 U/L Low 15-37 [facility] Comment on above: Order Comment: 517-2 Performed By: #### L 400.0001, L500.2500, L100.0100, M100.2200 #### [facility] Laboratory [address] [place], [address] Bilirubin [Mass/Vol] 0.20 mg/dL Normal 0.20-1.00 [facility] Comment on above: Order Comment: 517-2 Result Comment: For patients on eltrombopag therapy, use of Dimension [place] TBIL is not recommended. Performed By: #### L 400.0001, L500.2500, L100.0100, M100.2200 #### [facility] Laboratory [address] [place], [address] BUN/CRE 43.2 RATIO High 10-20 [facility] Comment on above: Order Comment: 517-2 Performed By: #### L 400.0001, L500.2500, L100.0100, M100.2200 #### [facility] Laboratory [address] [place], [address] CA,Total 8.6 mg/dL Normal 8.5-10.1 [facility] Comment on above: Order Comment: 517-2 Performed By: #### L 400.0001, L500.2500, L100.0100, M100.2200 #### [facility] Laboratory [address] [place], [address] Chloride [Moles/Vol] 102 mmol/L Normal 98-107 [facility] Comment on above: Order Comment: 517-2 Performed By: #### L 400.0001, L500.2500, L100.0100, M100.2200 #### [facility] Laboratory [address] [place], [address] CO2 [Moles/Vol] 32.0 mmol/L Normal 21.0-32.0 [facility] Comment on above: Order Comment: 517-2 Performed By: #### L 400.0001, L500.2500, L100.0100, M100.2200 #### [facility] Laboratory [address] [place], [address] Creatinine [Mass/Vol] 0.32 mg/dL Low 0.55-1.02 [facility] Comment on above: Order Comment: 517-2 Result Comment: The validity of the calculated GFR GFRAA in patients over 70 years has not been determined. Clinical correlation is essential. Performed By: #### L 400.0001, L500.2500, L100.0100, M100.2200 #### [facility] Laboratory [address] [place], [address] EST GFR - AA 277 mL/min Normal >60 [facility] Comment on above: Order Comment: 517-2 Result Comment: Afri can [place] GFR Calc Performed By: #### L 400.0001, L500.2500, L100.0100, M100.2200 #### [facility] Laboratory [address] [place], [address] GAP 4 Low 5-15 [facility] Comment on above: Order Comment: 517-2 Performed By: #### L 400.0001, L500.2500, L100.0100, M100.2200 #### [facility] Laboratory [address] [place], [address] GFR/1.73 sq M.predicted among non-blacks MDRD (S/P/Bld) [Vol rate/Area] 229 mL/min/{1.73_m2} Normal >60 [facility] Comment on above: Order Comment: -2 Result Comment: Non- GFR Calc Performed By: #### L 400.0001, L500.2500, L100.0100, M100.2200 #### [facility] Laboratory [address] [place], [address] Globulin (S) [Mass/Vol] 4.5 g/dL High 2.2-4.2 [facility] Comment on above: Order Comment: 517-2 Performed By: #### L 400.0001, L500.2500, L100.0100, M100.2200 #### [facility] Laboratory [address] [place], [address] Glucose [Mass/Vol] 105 mg/dL Normal 74-106 [facility] Comment on above: Order Comment: 517-2 Result Comment: Fast ing Glucose result from 100 to 125 mg/dL suggests IMPAIRED HOMEOSTASIS per A.D.A. criteria. Performed By: #### L 400.0001, L500.2500, L100.0100, M100.2200 #### [facility] [address] [place], [address] Potassium [Moles/Vol] 3.8 mmol/L Normal 3.5-5.1 [facility] Comment on above: Order Comment: 517-2 Performed By: #### L 400.0001, L500.2500, L100.0100, M100.2200 #### [facility] [address] [place], [address] Sodium [Moles/Vol] 137 mmol/L Normal 136-145 [facility] Comment on above: Order Comment: 517-2 Performed By: #### L 400.0001, L500.2500, L100.0100, M100.2200 #### [facility] [address] [place], [address] T PROT 7.3 g/dL Normal 6.4-8.2 [facility] Comment on above: Order Comment: 517-2 Performed By: #### L 400.0001, L500.2500, L100.0100, M100.2200 #### [facility] [address] [place], [address] Urea nitrogen [Mass/Vol] 14 mg/dL Normal 7-18 [facility] Comment on above: Order Comment: 517-2 Performed By: #### L 400.0001, L500.2500, L100.0100, M100.2200 #### [facility] Laboratory [address] [place], [address] Eosinophil percentageOrdered By: Kori Sethi on 07-14-2024 Eosinophils/100 WBC (Bld) 2.5 % 0-5 [facility] Erythrocyte distribution wid th (RBC) [Ratio]Ordered By: Kori Sethi on 07-14-2024 Erythrocyte distribution width (RBC) [Entitic vol] 48.8 fL High 35.1-43.9 [facility] Erythrocyte distribution wid th ratioOrdered By: Kori Sethi on 07-14-2024 Erythrocyte distribution width (RBC) [Ratio] 16.2 % High 11.6-14.6 [facility] Erythrocyte distribution wid th standard deviationOrdered By: Kori Sethi on 07-14-2024 Erythrocyte distribution width (RBC) [Ratio] 48.8 fl High 35.1-43.9 [facility] Estimated glomerular filtrat ion rate (GFR) AmericanOrdered By: Kori Sethi on 07-14-2024 Estimated GFR (MDRD) Amer 277 mL/min >60 [facility] Comment on above: GFR Calc Glomerular filtration rate ( GFR) estimationOrdered By: Kori Sethi on 07-14-2024 Estimated GFR (MDRD) Non-Af Amer 229 mL/min >60 [facility] Comment on above: Non- GFR Calc GFR/1.73 sq M.predicted among non-blacks MDRD (S/P/Bld) [Vol rate/Area] 229 mL/min/{1.73_m2} >60 [facility] Comment on above: Non- GFR Calc Glucose measurementOrdered B y: Kori Sethi on 07-14-2024 Glucose [Mass/Vol] 105 mg/dL 74-106 [facility] Comment on above: Fasting Glucose resu lt from 100 to 125 mg/dL suggests IMPAIRED HOMEOSTASIS per A.D.A. criteria. Hematocrit Auto (Bld) [Volum e fraction]Ordered By: Kori Sethi on 07-14-2024 Hematocrit (Bld) [Volume fraction] 32.1 % Low 37-47 [facility] Hemoglobin measurementOrdere d By: Kori Sethi on 07-14-2024 Hemoglobin (Bld) [Mass/Vol] 9.9 g/dL Low 12.0-15.0 [facility] Immature granulocytes/100 WB C Auto (Bld)Ordered By: Kori Sethi on 07-14-2024 Immature granulocytes/100 WBC (Bld) 0.400 % 0.0-0.9 [facility] Comment on above: IG% - Immature Granu locytes (promyelocytes, myelocytes and metamyelocytes) > 1% indicates that a LEFT SHIFT is Present. Laboratory - Chemistry and C hemistry - challengeOrdered By: Kori Sethi on 07-14-2024 AST [Catalytic activity/Vol] 8 U/L Low 15-37 [facility] Lymphocytes Auto (Unsp spec) [#/Vol]Ordered By: Kori Sethi on 07-14-2024 Lymphocytes (Bld) [#/Vol] 2.86 10*3/uL 0.83-4.51 [facility] Lymphocytes/100 WBC Auto (Un sp spec)Ordered By: Kori Sethi on 07-14-2024 Lymphocytes/100 WBC (Bld) 30.2 % 19-41 [facility] MCV (mean corpuscular volume ) determinationOrdered By: Kori Sethi on 07-14-2024 MCV (RBC) [Entitic vol] 83.4 fL 81-99 [facility] Mean corpuscular hemoglobin (MCH) determinationOrdered By: Kori Sethi on 07-14-2024 MCH (RBC) [Entitic mass] 25.7 pg Low 27.0-32.0 [facility] Mean corpuscular hemoglobin concentration (MCHC) determinationOrdered By: Kori Sethi on 07-14-2024 MCHC (RBC) [Mass/Vol] 30.8 g/dL Low 32-36 [facility] Mean platelet volume determi nationOrdered By: Kori Sethi on 07-14-2024 Platelet mean volume (Bld) [Entitic vol] 9.2 fL 6.2-12.0 [facility] Monocyte percentageOrdered B y: Kori Sethi on 07-14-2024 Monocytes/100 WBC (Bld) 6.8 % 0-10 [facility] Neutrophil percentageOrdered By: Kori Sethi on 07-14-2024 Neutrophils/100 WBC (Bld) 59.6 % 47-70 [facility] Nucleated red blood cell per centageOrdered By: Kori Sethi on 07-14-2024 Nucleated RBC/100 WBC (Bld) [Ratio] 0 % 0-5 [facility] Platelet countOrdered By: Edenilson Sethi on 07-14-2024 Platelets (Bld) [#/Vol] 338 10*3/uL 150-450 [facility] Potassium measurementOrdered By: Kori Sethi on 07-14-2024 Potassium [Moles/Vol] 3.8 mmol/L 3.5-5.1 [facility] RBC Auto (Bld) [#/Vol]Ordere d By: Kori Sethi on 07-14-2024 RBC (Bld) [#/Vol] 3.85 10*6/uL Low 4.2-5.4 [facility] Serum anion gap measurementO rdered By: Kori Sethi on 07-14-2024 Anion gap [Moles/Vol] 4 mmol/L Low 5-15 [facility] Serum globulin measurementOr dered By: Kori Sethi on 07-14-2024 Globulin (S) [Mass/Vol] 4.5 g/dL High 2.2-4.2 [facility] Serum or plasma alanine lyon otransferase (ALT) measurementOrdered By: Kori Sethi on 07-14-2024 ALT [Catalytic activity/Vol] 15 U/L 13-56 [facility] Serum or plasma albumin miguel angel urement (mass/volume)Ordered By: Kori Sethi on 07-14-2024 Albumin [Mass/Vol] 2.8 g/dL Low 3.2-5.0 [facility] Serum or plasma alkaline raghu sphatase measurementOrdered By: Kori Sethi on 07-14-2024 ALP [Catalytic activity/Vol] 86 U/L 45-117 [facility] Serum or plasma calcium miguel angel urement (mass/volume)Ordered By: Kori Sethi on 07-14-2024 Calcium [Mass/Vol] 8.6 mg/dL 8.5-10.1 [facility] Serum or plasma creatinine m easurement (mass/volume)Ordered By: Kori Sethi on 07-14-2024 Creatinine [Mass/Vol] 0.32 mg/dL Low 0.55-1.02 [facility] Comment on above: The validity of the calculated GFR & GFRAA in patients over 70 years has not been determined. Clinical correlation is essential. Serum or plasma urea nitroge n measurement (mass/volume)Ordered By: Kori Sethi on 07-14-2024 Urea nitrogen [Mass/Vol] 14 mg/dL 7-18 [facility] Sodium levelOrdered By: Bailey Sethi on 07-14-2024 Sodium [Moles/Vol] 137 mmol/L 136-145 [facility] Total proteinOrdered By: Shavonne Sethi on 07-14-2024 Protein [Mass/Vol] 7.3 g/dL 6.4-8.2 [facility] White blood cell (WBC) count Ordered By: Kori Sethi on 07-14-2024 WBC (Bld) [#/Vol] 9.5 10*3/uL 4.4-11.0 [facility] Urine Cultureon 07-09-2024 [facility] Providencia stuartii [place] Count >100,000 Escherichia coli Escherichia coli EFAC [place] Count >100,000 Enterococcus faecalis Ampicillin Islt SUNG [...] R Vancomycin Islt SUNG 1 S Normal [facility] Comment on above: Performed By: #### L 400.0001, L500.2500, L100.0100, M100.2200 #### [facility] Laboratory [address] [place], [address] Absolute lymphocyte countOrd ered By: Kori Sethi on 07-07-2024 Lymphocytes Auto (Unsp spec) [#/Vol] 3.08 10*3/uL 0.83-4.51 [facility] Absolute neutrophil countOrd ered By: Kori Sethi on 07-07-2024 Neutrophils (Bld) [#/Vol] 5.3 10*3/uL 2.0-7.7 [facility] Albumin to globulin ratioOrd ered By: Kori Sethi on 07-07-2024 Albumin/Globulin [Mass ratio] 0.6 {ratio} Low 0.9-2.4 [facility] Automated lymphocyte count a s percentage of total leukocytesOrdered By: Kori Sethi on 07-07-2024 Lymphocytes/100 WBC Auto (Unsp spec) 32.7 % 19-41 [facility] Basophil percentageOrdered B y: Kori Sethi on 07-07-2024 Basophils/100 WBC (Bld) 0.5 % 0-1 [facility] Bilirubin, totalOrdered By: Kori Sethi on 07-07-2024 Bilirubin [Mass/Vol] 0.20 mg/dL 0.20-1.00 [facility] Comment on above: For patients on eltr ombopag therapy, use of Dimension [place] TBIL is not recommended. Blood urea nitrogen (BUN)/cr eatinine ratioOrdered By: Kori Sethi on 07-07-2024 Urea nitrogen/Creatinine [Mass ratio] 52.6 mg/mg High 10-20 [facility] CBC W/Diff, Automatedon 06-15 Absolute Lymph 3.08 X10 3/uL Normal 0.83-4.51 [facility] Comment on above: Order Comment: 517-2 Performed By: #### L 500.4050, L503.0105, L506.1000, L100.0100, L500.4100, L501.9520 #### [facility] Laboratory [address] [place], [address] Absolute Neut 5.3 X10 3/uL Normal 2.0-7.7 [facility] Comment on above: Order Comment: 517-2 Performed By: #### L 500.4050, L503.0105, L506.1000, L100.0100, L500.4100, L501.9520 #### [facility] Laboratory [address] [place], [address] Basophils/100 WBC (Bld) 0.5 % Normal 0-1 [facility] Comment on above: Order Comment: 517-2 Performed By: #### L 500.4050, L503.0105, L506.1000, L100.0100, L500.4100, L501.9520 #### [facility] [address] [place], [address] Eosinophils/100 WBC (Bld) 0.9 % Normal 0-5 [facility] Comment on above: Order Comment: 517-2 Performed By: #### L 500.4050, L503.0105, L506.1000, L100.0100, L500.4100, L501.9520 #### [facility] [address] [place], [address] Erythrocyte distribution width (RBC) [Ratio] 15.7 % High 11.6-14.6 [facility] Comment on above: Order Comment: 517-2 Performed By: #### L 500.4050, L503.0105, L506.1000, L100.0100, L500.4100, L501.9520 #### [facility] [address] [place], [address] Hematocrit (Bld) [Volume fraction] 33.2 % Low 37-47 [facility] Comment on above: Order Comment: 517-2 Performed By: #### L 500.4050, L503.0105, L506.1000, L100.0100, L500.4100, L501.9520 #### [facility] [address] [place], [address] Hemoglobin (Bld) [Mass/Vol] 10.2 g/dL Low 12.0-15.0 [facility] Comment on above: Order Comment: 517-2 Performed By: #### L 500.4050, L503.0105, L506.1000, L100.0100, L500.4100, L501.9520 #### [facility] Laboratory [address] [place], [address] IG% 0.300 Normal 0.0-0.9 [facility] Comment on above: Order Comment: 517-2 Result Comment: IG% - Immature Granulocytes (promyelocytes, myelocytes and metamyelocytes) > 1% indicates that a LEFT SHIFT is Present. Performed By: #### L 500.4050, L503.0105, L506.1000, L100.0100, L500.4100, L501.9520 #### [facility] [address] [place], [address] Lymphocytes/100 WBC (Bld) 32.7 % Normal 19-41 [facility] Comment on above: Order Comment: 517-2 Performed By: #### L 500.4050, L503.0105, L506.1000, L100.0100, L500.4100, L501.9520 #### [facility] Laboratory [address] [place], [address] MCH (RBC) [Entitic mass] 25.5 pg Low 27.0-32.0 [facility] Comment on above: Order Comment: 517-2 Performed By: #### L 500.4050, L503.0105, L506.1000, L100.0100, L500.4100, L501.9520 #### [facility] Laboratory [address] [place], [address] MCHC (RBC) [Mass/Vol] 30.7 g/dL Low 32-36 [facility] Comment on above: Order Comment: 517-2 Performed By: #### L 500.4050, L503.0105, L506.1000, L100.0100, L500.4100, L501.9520 #### [facility] Laboratory [address] [place], [address] MCV (RBC) [Entitic vol] 83.0 fL Normal 81-99 [facility] Comment on above: Order Comment: 517-2 Performed By: #### L 500.4050, L503.0105, L506.1000, L100.0100, L500.4100, L501.9520 #### [facility] [address] [place], [address] Monocytes/100 WBC (Bld) 9.4 % Normal 0-10 [facility] Comment on above: Order Comment: 517-2 Performed By: #### L 500.4050, L503.0105, L506.1000, L100.0100, L500.4100, L501.9520 #### [facility] [address] [place], [address] Neutrophils/100 WBC (Bld) 56.2 % Normal 47-70 [facility] Comment on above: Order Comment: 517-2 Performed By: #### L 500.4050, L503.0105, L506.1000, L100.0100, L500.4100, L501.9520 #### [facility] Laboratory [address] [place], [address] Nucleated RBC (Bld) [#/Vol] 0 10*3/uL Normal 0-5 [facility] Comment on above: Order Comment: 517-2 Performed By: #### L 500.4050, L503.0105, L506.1000, L100.0100, L500.4100, L501.9520 #### [facility] Laboratory [address] [place], [address] Platelet mean volume (Bld) [Entitic vol] 9.5 fL Normal 6.2-12.0 [facility] Comment on above: Order Comment: 517-2 Performed By: #### L 500.4050, L503.0105, L506.1000, L100.0100, L500.4100, L501.9520 #### [facility] Laboratory [address] [place], [address] Platelets (Bld) [#/Vol] 359 10*3/uL Normal 150-450 [facility] Comment on above: Order Comment: 517-2 Performed By: #### L 500.4050, L503.0105, L506.1000, L100.0100, L500.4100, L501.9520 #### [facility] Laboratory [address] [place], [address] RBC (Bld) [#/Vol] 4.00 10*6/uL Low 4.2-5.4 [facility] Comment on above: Order Comment: 517-2 Performed By: #### L 500.4050, L503.0105, L506.1000, L100.0100, L500.4100, L501.9520 #### [facility] Laboratory [address] [place], [address] RDW SD 47.6 fl High 35.1-43.9 [facility] Comment on above: Order Comment: 517-2 Performed By: #### L 500.4050, L503.0105, L506.1000, L100.0100, L500.4100, L501.9520 #### [facility] Laboratory [address] [place], [address] WBC (Bld) [#/Vol] 9.4 10*3/uL Normal 4.4-11.0 [facility] Comment on above: Order Comment: 517-2 Performed By: #### L 500.4050, L503.0105, L506.1000, L100.0100, L500.4100, L501.9520 #### [facility] Laboratory [address] [place], [place], [address] Carbon dioxide measurementOr dered By: Kori Sethi on 07-07-2024 CO2 [Moles/Vol] 32.0 mmol/L 21.0-32.0 [facility] Chloride measurementOrdered By: Kori Sethi on 07-07-2024 Chloride [Moles/Vol] 101 mmol/L 98-107 [facility] Comprehensive Metabolic Prof ilon 07-07-2024 Albumin [Mass/Vol] 3.0 g/dL Low 3.2-5.0 [facility] Comment on above: Order Comment: 517-2 Performed By: #### L 500.4050, L503.0105, L506.1000, L100.0100, L500.4100, L501.9520 #### [facility] Laboratory [address] [place], [address] Albumin/Globulin [Mass ratio] 0.6 {ratio} Low 0.9-2.4 [facility] Comment on above: Order Comment: 517-2 Performed By: #### L 500.4050, L503.0105, L506.1000, L100.0100, L500.4100, L501.9520 #### [facility] Laboratory [address] [place], [address] ALK P 86 U/L Normal 45-117 [facility] Comment on above: Order Comment: 517-2 Performed By: #### L 500.4050, L503.0105, L506.1000, L100.0100, L500.4100, L501.9520 #### [facility] [address] [place], [address] ALT [Catalytic activity/Vol] 15 U/L Normal 13-56 [facility] Comment on above: Order Comment: 517-2 Performed By: #### L 500.4050, L503.0105, L506.1000, L100.0100, L500.4100, L501.9520 #### [facility] [address] [place], [address] AST [Catalytic activity/Vol] 10 U/L Low 15-37 [facility] Comment on above: Order Comment: 517-2 Performed By: #### L 500.4050, L503.0105, L506.1000, L100.0100, L500.4100, L501.9520 #### [facility] [address] [place], [address] Bilirubin [Mass/Vol] 0.20 mg/dL Normal 0.20-1.00 [facility] Comment on above: Order Comment: 517-2 Result Comment: For patients on eltrombopag therapy, use of Dimension [place] TBIL is not recommended. Performed By: #### L 500.4050, L503.0105, L506.1000, L100.0100, L500.4100, L501.9520 #### [facility] [address] [place], [address] BUN/CRE 52.6 RATIO High 10-20 [facility] Comment on above: Order Comment: 517-2 Performed By: #### L 500.4050, L503.0105, L506.1000, L100.0100, L500.4100, L501.9520 #### [facility] [address] [place], [address] CA,Total 9.0 mg/dL Normal 8.5-10.1 [facility] Comment on above: Order Comment: 517-2 Performed By: #### L 500.4050, L503.0105, L506.1000, L100.0100, L500.4100, L501.9520 #### [facility] [address] [place], [address] Chloride [Moles/Vol] 101 mmol/L Normal 98-107 [facility] Comment on above: Order Comment: 517-2 Performed By: #### L 500.4050, L503.0105, L506.1000, L100.0100, L500.4100, L501.9520 #### [facility] [address] [place], [address] CO2 [Moles/Vol] 32.0 mmol/L Normal 21.0-32.0 [facility] Comment on above: Order Comment: -2 Performed By: #### L 500.4050, L503.0105, L506.1000, L100.0100, L500.4100, L501.9520 #### [facility] Laboratory [address] [place], [address] Creatinine [Mass/Vol] 0.34 mg/dL Low 0.55-1.02 [facility] Comment on above: Order Comment: Result Comment: The validity of the calculated GFR GFRAA in patients over 70 years has not been determined. Clinical correlation is essential. Performed By: #### L 500.4050, L503.0105, L506.1000, L100.0100, L500.4100, L501.9520 #### [facility] [address] [place], [address] EST GFR - AA 260 mL/min Normal >60 [facility] Comment on above: Order Comment: - Result Comment: Afri can [place] GFR Calc Performed By: #### L 500.4050, L503.0105, L506.1000, L100.0100, L500.4100, L501.9520 #### [facility] Laboratory [address] [place], [address] GAP 5 Normal 5-15 [facility] Comment on above: Order Comment: 517-2 Performed By: #### L 500.4050, L503.0105, L506.1000, L100.0100, L500.4100, L501.9520 #### [facility] [address] [place], [address] GFR/1.73 sq M.predicted among non-blacks MDRD (S/P/Bld) [Vol rate/Area] 215 mL/min/{1.73_m2} Normal >60 [facility] Comment on above: Order Comment: 517-2 Result Comment: Non- GFR Calc Performed By: #### L 500.4050, L503.0105, L506.1000, L100.0100, L500.4100, L501.9520 #### [facility] [address] [place], [address] Globulin (S) [Mass/Vol] 4.8 g/dL High 2.2-4.2 [facility] Comment on above: Order Comment: 517-2 Performed By: #### L 500.4050, L503.0105, L506.1000, L100.0100, L500.4100, L501.9520 #### [facility] [address] [place], [address] Glucose [Mass/Vol] 102 mg/dL Normal 74-106 [facility] Comment on above: Order Comment: 517-2 Result Comment: Fast ing Glucose result from 100 to 125 mg/dL suggests IMPAIRED HOMEOSTASIS per A.D.A. criteria. Performed By: #### L 500.4050, L503.0105, L506.1000, L100.0100, L500.4100, L501.9520 #### [facility] [address] [place], [address] Potassium [Moles/Vol] 4.0 mmol/L Normal 3.5-5.1 [facility] Comment on above: Order Comment: 517-2 Performed By: #### L 500.4050, L503.0105, L506.1000, L100.0100, L500.4100, L501.9520 #### [facility] [address] [place], [address] Sodium [Moles/Vol] 138 mmol/L Normal 136-145 [facility] Comment on above: Order Comment: 517-2 Performed By: #### L 500.4050, L503.0105, L506.1000, L100.0100, L500.4100, L501.9520 #### [facility] [address] [place], [address] T PROT 7.8 g/dL Normal 6.4-8.2 [facility] Comment on above: Order Comment: 517-2 Performed By: #### L 500.4050, L503.0105, L506.1000, L100.0100, L500.4100, L501.9520 #### [facility] [address] [place], [address] Urea nitrogen [Mass/Vol] 18 mg/dL Normal 7-18 [facility] Comment on above: Order Comment: 517-2 Performed By: #### L 500.4050, L503.0105, L506.1000, L100.0100, L500.4100, L501.9520 #### [facility] [address] [place], [address] Eosinophil percentageOrdered By: Kori Sethi on 07-07-2024 Eosinophils/100 WBC (Bld) 0.9 % 0-5 [facility] Erythrocyte distribution wid th (RBC) [Ratio]Ordered By: Kori Sethi on 07-07-2024 Erythrocyte distribution width (RBC) [Entitic vol] 47.6 fL High 35.1-43.9 [facility] Erythrocyte distribution wid th ratioOrdered By: Kori Sethi on 07-07-2024 Erythrocyte distribution width (RBC) [Ratio] 15.7 % High 11.6-14.6 [facility] Erythrocyte distribution wid th standard deviationOrdered By: Kori Sethi on 07-07-2024 Erythrocyte distribution width (RBC) [Ratio] 47.6 fl High 35.1-43.9 [facility] Estimated glomerular filtrat ion rate (GFR) AmericanOrdered By: Kori Sethi on 07-07-2024 Estimated GFR (MDRD) Amer 260 mL/min >60 [facility] Comment on above: GFR Calc Glomerular filtration rate ( GFR) estimationOrdered By: Kori Sethi on 07-07-2024 Estimated GFR (MDRD) Non-Af Amer 215 mL/min >60 [facility] Comment on above: Non- GFR Calc GFR/1.73 sq M.predicted among non-blacks MDRD (S/P/Bld) [Vol rate/Area] 215 mL/min/{1.73_m2} >60 [facility] Comment on above: Non- GFR Calc Glucose measurementOrdered B y: Kori Sethi on 07-07-2024 Glucose [Mass/Vol] 102 mg/dL 74-106 [facility] Comment on above: Fasting Glucose resu lt from 100 to 125 mg/dL suggests IMPAIRED HOMEOSTASIS per A.D.A. criteria. Hematocrit Auto (Bld) [Volum e fraction]Ordered By: Kori Sethi on 07-07-2024 Hematocrit (Bld) [Volume fraction] 33.2 % Low 37-47 [facility] Hemoglobin measurementOrdere d By: Kori Sethi on 07-07-2024 Hemoglobin (Bld) [Mass/Vol] 10.2 g/dL Low 12.0-15.0 [facility] Immature granulocytes/100 WB C Auto (Bld)Ordered By: Kori Sethi on 07-07-2024 Immature granulocytes/100 WBC (Bld) 0.300 % 0.0-0.9 [facility] Comment on above: IG% - Immature Granu locytes (promyelocytes, myelocytes and metamyelocytes) > 1% indicates that a LEFT SHIFT is Present. Laboratory - Chemistry and C hemistry - challengeOrdered By: Kori Sethi on 07-07-2024 AST [Catalytic activity/Vol] 10 U/L Low 15-37 [facility] Lymphocytes Auto (Unsp spec) [#/Vol]Ordered By: Kori Sethi on 07-07-2024 Lymphocytes (Bld) [#/Vol] 3.08 10*3/uL 0.83-4.51 [facility] Lymphocytes/100 WBC Auto (Un sp spec)Ordered By: Kori Sethi on 07-07-2024 Lymphocytes/100 WBC (Bld) 32.7 % 19-41 [facility] MCV (mean corpuscular volume ) determinationOrdered By: Kori Sethi on 07-07-2024 MCV (RBC) [Entitic vol] 83.0 fL 81-99 [facility] Mean corpuscular hemoglobin (MCH) determinationOrdered By: Kori Sethi on 07-07-2024 MCH (RBC) [Entitic mass] 25.5 pg Low 27.0-32.0 [facility] Mean corpuscular hemoglobin concentration (MCHC) determinationOrdered By: Kori Sethi on 07-07-2024 MCHC (RBC) [Mass/Vol] 30.7 g/dL Low 32-36 [facility] Mean platelet volume determi nationOrdered By: Kori Sethi on 07-07-2024 Platelet mean volume (Bld) [Entitic vol] 9.5 fL 6.2-12.0 [facility] Monocyte percentageOrdered B y: Kori Sethi on 07-07-2024 Monocytes/100 WBC (Bld) 9.4 % 0-10 [facility] Neutrophil percentageOrdered By: Kori Sethi on 07-07-2024 Neutrophils/100 WBC (Bld) 56.2 % 47-70 [facility] Nucleated red blood cell per centageOrdered By: Kroi Sethi on 07-07-2024 Nucleated RBC/100 WBC (Bld) [Ratio] 0 % 0-5 [facility] Platelet countOrdered By: Edenilson Sethi on 07-07-2024 Platelets (Bld) [#/Vol] 359 10*3/uL 150-450 [facility] Potassium measurementOrdered By: Kori Sethi on 07-07-2024 Potassium [Moles/Vol] 4.0 mmol/L 3.5-5.1 [facility] RBC Auto (Bld) [#/Vol]Ordere d By: Kori Sethi on 07-07-2024 RBC (Bld) [#/Vol] 4.00 10*6/uL Low 4.2-5.4 [facility] Serum anion gap measurementO rdered By: Kori Sethi on 07-07-2024 Anion gap [Moles/Vol] 5 mmol/L 5-15 [facility] Serum globulin measurementOr dered By: Kori Sethi on 07-07-2024 Globulin (S) [Mass/Vol] 4.8 g/dL High 2.2-4.2 [facility] Serum or plasma alanine lyon otransferase (ALT) measurementOrdered By: Kori Sethi on 07-07-2024 ALT [Catalytic activity/Vol] 15 U/L 13-56 [facility] Serum or plasma albumin miguel angel urement (mass/volume)Ordered By: Kori Sethi on 07-07-2024 Albumin [Mass/Vol] 3.0 g/dL Low 3.2-5.0 [facility] Serum or plasma alkaline raghu sphatase measurementOrdered By: Kori Sethi on 07-07-2024 ALP [Catalytic activity/Vol] 86 U/L 45-117 [facility] Serum or plasma calcium miguel angel urement (mass/volume)Ordered By: Kori Sethi on 07-07-2024 Calcium [Mass/Vol] 9.0 mg/dL 8.5-10.1 [facility] Serum or plasma creatinine m easurement (mass/volume)Ordered By: Kori Sethi on 07-07-2024 Creatinine [Mass/Vol] 0.34 mg/dL Low 0.55-1.02 [facility] Comment on above: The validity of the calculated GFR & GFRAA in patients over 70 years has not been determined. Clinical correlation is essential. Serum or plasma urea nitroge n measurement (mass/volume)Ordered By: Kori Sethi on 07-07-2024 Urea nitrogen [Mass/Vol] 18 mg/dL 7-18 [facility] Sodium levelOrdered By: Bailey Sethi on 07-07-2024 Sodium [Moles/Vol] 138 mmol/L 136-145 [facility] Total proteinOrdered By: Shavonne castillo Tdgilda on 07-07-2024 Protein [Mass/Vol] 7.8 g/dL 6.4-8.2 [facility] White blood cell (WBC) count Ordered By: Kori Sethi on 07-07-2024 WBC (Bld) [#/Vol] 9.4 10*3/uL 4.4-11.0 [facility] Urinalysis, Completeon 07-06 BACTERIA 1+ /hpf Normal None Seen [facility] Comment on above: Order Comment: NORMA TER SPECIMEN Performed By: #### L 400.0001, L500.2500, L100.0100, M100.2200 #### [facility] [address] [place], [address] CA OX CRYSTAL 2+ /hpf Normal [facility] Comment on above: Order Comment: NORMA TER SPECIMEN Performed By: #### L 400.0001, L500.2500, L100.0100, M100.2200 #### [facility] [address] [place], [address] RBC 0-5 SEEN Normal 0-5 [facility] Comment on above: Order Comment: NORMA TER SPECIMEN Performed By: #### L 400.0001, L500.2500, L100.0100, M100.2200 #### [facility] [address] [place], [address] TRIPLE PHOS 1+ /hpf Normal [facility] Comment on above: Order Comment: NORMA TER SPECIMEN Performed By: #### L 400.0001, L500.2500, L100.0100, M100.2200 #### [facility] [address] [place], [address] WBC 25-50 SEEN Normal 0-5 [facility] Comment on above: Order Comment: NORMA TER SPECIMEN Performed By: #### L 400.0001, L500.2500, L100.0100, M100.2200 #### [facility] [address] [place], [address] EPI,SQUAMOUS 0 SEEN Normal 5-10 [facility] Comment on above: Order Comment: NORMA TER SPECIMEN Performed By: #### L 400.0001, L500.2500, L100.0100, M100.2200 #### [facility] [address] [place], [address] Mucus Ql (Urine sed) 0 SEEN Normal [facility] Comment on above: Order Comment: NORMA TER SPECIMEN Performed By: #### L 400.0001, L500.2500, L100.0100, M100.2200 #### [facility] [address] [place], [address] Bilirubin Test strip Ql (U)O rdered By: Kori Sethi on 07-05-2024 Bilirubin Ql (U) Negative Negative [facility] Calcium oxalate crystals LM Ql (Urine sed)Ordered By: Kori Sethi on 07-05-2024 Urine Calcium Oxalate Crystals 2+ /hpf [facility] Calcium oxalate crystals det ection in urine sediment by light microscopyOrdered By: Kori Sethi on 07-05-2024 Calcium oxalate crystals LM Ql (Urine sed) 2+ /hpf [facility] Epithelial cells.squamous LM Ql (Urine sed)Ordered By: Kori Sethi on 07-05-2024 Epithelial cells.squamous LM.HPF (Urine sed) [#/Area] 0 /[HPF] 5-10 [facility] Glucose Ql (U)Ordered By: Edenilson Sethi on 07-05-2024 Urine Glucose (UA) Normal mg/dl Normal [facility] Ketones Test strip Ql (U)Ord ered By: Kori Sethi on 07-05-2024 Ketones Ql (U) 5 mg/dl High Negative [facility] Microscopic analysis of urin e for red blood cells (RBC)Ordered By: Kori Sethi on 07-05-2024 Microscopic analysis of urine for red blood cells (RBC) 0-5 SEEN /hpf 0-5 [facility] Urine RBC 0-5 SEEN /hpf 0-5 [facility] Mucus LM Ql (Urine sed)Order ed By: Kori Sethi on 07-05-2024 Mucus Ql (Urine sed) 0 SEEN /hpf [facility] Nitrite Test strip Ql (U)Ord ered By: Kori Sethi on 07-05-2024 Nitrite Ql (U) Positive High Negative [facility] Protein Test strip Ql (U)Ord ered By: Kori Sethi on 07-05-2024 Protein Ql (U) 30 mg/dl High Negative [facility] Squamous epithelial cells de tection in urine sediment by light microscopyOrdered By: Kori Sethi on 07-05-2024 Epithelial cells.squamous LM Ql (Urine sed) 0 SEEN /hpf 5-10 [facility] Triple phosphate crystals LM Ql (Urine sed)Ordered By: Kori Sethi on 07-05-2024 Urine Triple Phosphate Crystals 1+ /hpf [facility] Triple phosphate crystals de tection in urine sediment by light microscopyOrdered By: Kori Sethi on 07-05-2024 Triple phosphate crystals LM Ql (Urine sed) 1+ /hpf [facility] Urine blood detectionOrdered By: Kori Sethi on 07-05-2024 Urine Occult Blood 250 /ul High Negative [facility] Urine clarityOrdered By: Shavonne Sethi on 07-05-2024 Clarity (U) Sl. Cloudy Clear [facility] Urine color determinationOrd ered By: Kori Sethi on 07-05-2024 Color (U) Yellow Yellow [facility] Urine cultureOrdered By: Shavonne Sethi on 07-05-2024 Bacteria identified Cx Nom (U) Providencia stuartii Abnormal [facility] Bacteria identified Cx Nom (U) Escherichia coli Abnormal [facility] Bacteria identified Cx Nom (U) Enterococcus faecalis Abnormal [facility] Urine glucose detectionOrder ed By: Kori Sethi on 07-05-2024 Glucose Ql (U) Normal mg/dl Normal [facility] Urine leukocyte esterase det ection by dipstickOrdered By: Kori Sethi on 07-05-2024 Leukocyte esterase Test strip Ql (U) 500 /ul High Negative [facility] Urine pHOrdered By: Kori Rider udla on 07-05-2024 pH (U) 7.0 [pH] 5.0 - 8.0 [facility] Urine sediment bacteria coun t by microscopy (number/high power field)Ordered By: Kori Sethi on 07-05-2024 Bacteria LM.HPF (Urine sed) [#/Area] 1 /[HPF] None Seen [facility] Urine specific gravity measu rementOrdered By: Kori Sethi on 07-05-2024 Specific gravity (U) [Rel density] 1.010 1.002-1.030 [facility] Urine urobilinogen measureme ntOrdered By: Kori Sethi on 07-05-2024 Urobilinogen Ql (U) Normal mg/dl Normal [facility] Urobilinogen Ql (U)Ordered B y: Kori Sethi on 07-05-2024 Urine Urobilinogen Normal mg/dl Normal [facility] White blood cell countOrdere d By: Kori Sethi on 07-05-2024 Urine WBC 25-50 SEEN /hpf 0-5 [facility] White blood cell count 25-50 SEEN /hpf 0-5 [facility] Urine Cultureon 07-04-2024 URC Mixed Gram Pos Gram Neg Org [place] Count 80,000-100,000 MIX[facility] Mixed contaminants. Submit a new specimen if indicated. Normal [facility] Comment on above: Performed By: #### L 400.0001, L500.2500, L100.0100, M100.2200 #### [facility] Laboratory [address] [place], [address] Absolute lymphocyte countOrd ered By: Kori Sethi on 07-03-2024 Lymphocytes Auto (Unsp spec) [#/Vol] 2.57 10*3/uL 0.83-4.51 [facility] Absolute neutrophil countOrd ered By: Kori Sethi on 07-03-2024 Neutrophils (Bld) [#/Vol] 3.5 10*3/uL 2.0-7.7 [facility] Amorphous sediment detection in urine sediment by light microscopyOrdered By: Kori Sethi on 07-03-2024 Amorphous sediment LM Ql (Urine sed) 2+ [facility] Automated lymphocyte count a s percentage of total leukocytesOrdered By: Kori Sethi on 07-03-2024 Lymphocytes/100 WBC Auto (Unsp spec) 36.8 % 19- [facility] Basic Metabolic Profile (BMP )on 07-03-2024 BUN/CRE 40.3 RATIO High - [facility] Comment on above: Performed By: #### L 400.0001, L500.2500, L100.0100, M100.2200 #### [facility] Laboratory [address] [place], [address] CA,Total 9.0 mg/dL Normal 8.5-10.1 [facility] Comment on above: Performed By: #### L 400.0001, L500.2500, L100.0100, M100.2200 #### [facility] Laboratory [address] [place], [address] Chloride [Moles/Vol] 100 mmol/L Normal 98-107 [facility] Comment on above: Performed By: #### L 400.0001, L500.2500, L100.0100, M100.2200 #### [facility] Laboratory [address] [place], [address] CO2 [Moles/Vol] 34.0 mmol/L High 21.0-32.0 [facility] Comment on above: Performed By: #### L 400.0001, L500.2500, L100.0100, M100.2200 #### [facility] Laboratory [address] [place], [address] Creatinine [Mass/Vol] 0.30 mg/dL Low 0.55-1.02 [facility] Comment on above: Result Comment: The validity of the calculated GFR GFRAA in patients over 70 years has not been determined. Clinical correlation is essential. Performed By: #### L 400.0001, L500.2500, L100.0100, M100.2200 #### [facility] [address] [place], [address] EST GFR - AA 305 mL/min Normal >60 [facility] Comment on above: Result Comment: Afri can [place] GFR Calc Performed By: #### L 400.0001, L500.2500, L100.0100, M100.2200 #### [facility] Laboratory [address] [place], [address] GAP 4 Low 5-15 [facility] Comment on above: Performed By: #### L 400.0001, L500.2500, L100.0100, M100.2200 #### [facility] Laboratory [address] [place], [address] GFR/1.73 sq M.predicted among non-blacks MDRD (S/P/Bld) [Vol rate/Area] 252 mL/min/{1.73_m2} Normal >60 [facility] Comment on above: Result Comment: Non- GFR Calc Performed By: #### L 400.0001, L500.2500, L100.0100, M100.2200 #### [facility] Laboratory [address] [place], [address] Glucose [Mass/Vol] 105 mg/dL Normal 74-106 [facility] Comment on above: Result Comment: Fast ing Glucose result from 100 to 125 mg/dL suggests IMPAIRED HOMEOSTASIS per A.D.A. criteria. Performed By: #### L 400.0001, L500.2500, L100.0100, M100.2200 #### [facility] Laboratory [address] [place], [address] Potassium [Moles/Vol] 3.8 mmol/L Normal 3.5-5.1 [facility] Comment on above: Performed By: #### L 400.0001, L500.2500, L100.0100, M100.2200 #### [facility] Laboratory [address] [place], [address] Sodium [Moles/Vol] 138 mmol/L Normal 136-145 [facility] Comment on above: Performed By: #### L 400.0001, L500.2500, L100.0100, M100.2200 #### [facility] Laboratory [address] [place], [address] Urea nitrogen [Mass/Vol] 12 mg/dL Normal 7-18 [facility] Comment on above: Performed By: #### L 400.0001, L500.2500, L100.0100, M100.2200 #### [facility] Laboratory [address] [place], [address] Basophil percentageOrdered B y: Kori Sethi on 07-03-2024 Basophils/100 WBC (Bld) 0.6 % 0-1 [facility] Bilirubin Test strip Ql (U)O rdered By: Kori Sethi on 07-03-2024 Bilirubin Ql (U) Negative Negative [facility] Blood urea nitrogen (BUN)/cr eatinine ratioOrdered By: Kori Sethi on 07-03-2024 Urea nitrogen/Creatinine [Mass ratio] 40.3 mg/mg High 10- [facility] CBC W/Diff, Automatedon - Absolute Lymph 2.57 X10 3/uL Normal 0.83-4.51 [facility] Comment on above: Performed By: #### L 400.0001, L500.2500, L100.0100, M100.2200 #### [facility] Laboratory [address] [place], [address] Absolute Neut 3.5 X10 3/uL Normal 2.0-7.7 [facility] Comment on above: Performed By: #### L 400.0001, L500.2500, L100.0100, M100.2200 #### [facility] Laboratory [address] [place], [address] Basophils/100 WBC (Bld) 0.6 % Normal 0-1 [facility] Comment on above: Performed By: #### L 400.0001, L500.2500, L100.0100, M100.2200 #### [facility] Laboratory [address] [place], [address] Eosinophils/100 WBC (Bld) 3.9 % Normal 0-5 [facility] Comment on above: Performed By: #### L 400.0001, L500.2500, L100.0100, M100.2200 #### [facility] Laboratory [address] [place], [address] Erythrocyte distribution width (RBC) [Ratio] 15.4 % High 11.6-14.6 [facility] Comment on above: Performed By: #### L 400.0001, L500.2500, L100.0100, M100.2200 #### [facility] Laboratory [address] [place], [address] Hematocrit (Bld) [Volume fraction] 33.1 % Low 37-47 [facility] Comment on above: Performed By: #### L 400.0001, L500.2500, L100.0100, M100.2200 #### [facility] Laboratory [address] [place], [address] Hemoglobin (Bld) [Mass/Vol] 10.1 g/dL Low 12.0-15.0 [facility] Comment on above: Performed By: #### L 400.0001, L500.2500, L100.0100, M100.2200 #### [facility] Laboratory [address] [place], [address] IG% 0.300 Normal 0.0-0.9 [facility] Comment on above: Result Comment: IG% - Immature Granulocytes (promyelocytes, myelocytes and metamyelocytes) > 1% indicates that a LEFT SHIFT is Present. Performed By: #### L 400.0001, L500.2500, L100.0100, M100.2200 #### [facility] Laboratory [address] [place], [address] Lymphocytes/100 WBC (Bld) 36.8 % Normal 19-41 [facility] Comment on above: Performed By: #### L 400.0001, L500.2500, L100.0100, M100.2200 #### [facility] Laboratory [address] [place], [address] MCH (RBC) [Entitic mass] 25.6 pg Low 27.0-32.0 [facility] Comment on above: Performed By: #### L 400.0001, L500.2500, L100.0100, M100.2200 #### [facility] Laboratory [address] [place], [address] MCHC (RBC) [Mass/Vol] 30.5 g/dL Low 32-36 [facility] Comment on above: Performed By: #### L 400.0001, L500.2500, L100.0100, M100.2200 #### [facility] Laboratory [address] [place], [address] MCV (RBC) [Entitic vol] 83.8 fL Normal 81-99 [facility] Comment on above: Performed By: #### L 400.0001, L500.2500, L100.0100, M100.2200 #### [facility] Laboratory [address] [place], [address] Monocytes/100 WBC (Bld) 8.0 % Normal 0-10 [facility] Comment on above: Performed By: #### L 400.0001, L500.2500, L100.0100, M100.2200 #### [facility] Laboratory [address] [place], [address] Neutrophils/100 WBC (Bld) 50.4 % Normal 47-70 [facility] Comment on above: Performed By: #### L 400.0001, L500.2500, L100.0100, M100.2200 #### [facility] Laboratory [address] [place], [address] Nucleated RBC (Bld) [#/Vol] 0 10*3/uL Normal 0-5 [facility] Comment on above: Performed By: #### L 400.0001, L500.2500, L100.0100, M100.2200 #### [facility] Laboratory [address] [place], [address] Platelet mean volume (Bld) [Entitic vol] 9.6 fL Normal 6.2-12.0 [facility] Comment on above: Performed By: #### L 400.0001, L500.2500, L100.0100, M100.2200 #### [facility] Laboratory [address] [place], [address] Platelets (Bld) [#/Vol] 312 10*3/uL Normal 150-450 [facility] Comment on above: Performed By: #### L 400.0001, L500.2500, L100.0100, M100.2200 #### [facility] Laboratory [address] [place], [address] RBC (Bld) [#/Vol] 3.95 10*6/uL Low 4.2-5.4 [facility] Comment on above: Performed By: #### L 400.0001, L500.2500, L100.0100, M100.2200 #### [facility] Laboratory [address] [place], [address] RDW SD 47.0 fl High 35.1-43.9 [facility] Comment on above: Performed By: #### L 400.0001, L500.2500, L100.0100, M100.2200 #### [facility] Laboratory [address] [place], [address] WBC (Bld) [#/Vol] 7.0 10*3/uL Normal 4.4-11.0 [facility] Comment on above: Performed By: #### L 400.0001, L500.2500, L100.0100, M100.2200 #### [facility] Laboratory [address] [place], [address] Carbon dioxide measurementOr dered By: Kori Sethi on 07-03-2024 CO2 [Moles/Vol] 34.0 mmol/L High 21.0-32.0 [facility] Chloride measurementOrdered By: Korijonathan Sethi on 07-03-2024 Chloride [Moles/Vol] 100 mmol/L 98-107 [facility] Eosinophil percentageOrdered By: Kori Sethi on 07-03-2024 Eosinophils/100 WBC (Bld) 3.9 % 0-5 [facility] Epithelial cells.squamous LM Ql (Urine sed)Ordered By: Kori Sethi on 07-03-2024 Epithelial cells.squamous LM.HPF (Urine sed) [#/Area] 0 /[HPF] 5-10 [facility] Erythrocyte distribution wid th (RBC) [Ratio]Ordered By: Kori Sethi on 07-03-2024 Erythrocyte distribution width (RBC) [Entitic vol] 47.0 fL High 35.1-43.9 [facility] Erythrocyte distribution wid th ratioOrdered By: Korijonathan Sethi on 07-03-2024 Erythrocyte distribution width (RBC) [Ratio] 15.4 % High 11.6-14.6 [facility] Erythrocyte distribution wid th standard deviationOrdered By: Korijonathan Sethi on 07-03-2024 Erythrocyte distribution width (RBC) [Ratio] 47.0 fl High 35.1-43.9 [facility] Estimated glomerular filtrat ion rate (GFR) AmericanOrdered By: Kori Sethi on 07-03-2024 Estimated GFR (MDRD) Amer 305 mL/min >60 [facility] Comment on above: GFR Calc Fluor Guidance for Spine Inj on 07-03-2024 Fluor Guidance for Spine Inj [facility] Imaging Services [address] [place] [address] Fluor Guidance for Spine Inj MR#: [id number] Acct: [id number] Name: HENRIK REED Rep #: [id number] : 1975 F 49 From: Roosevelt wall MD PCP: Dr. Lavon Vicente MD Status: [facility] Study: Fluor Guidance for Spine Inj Date of Exam: Exam# [id number] Ordering Dr: [place] [id number] PROCEDURE: Caudal block. DATE OF EXAMINATION: July 03, 2024 INDICATION: Female, 49 years old. Chronic low-back pain FLUOROSCOPY TIME (if supplied): (5.1 second) minutes/seconds. 4.37 mGy. One image was provided. RAD/Fluor Guidance for Spine Inj IMPRESSION: Intraoperative imaging provided for caudal block. Electronically Signed: Roosevelt Galvez MD at 15:10 EST Reading Location ID and State: [address] [place] [address] , Service support , CC: Dr. Kenia Hammond MD; Dr. 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 Normal [facility] Glomerular filtration rate ( GFR) estimationOrdered By: Kori Sethi on 07-03-2024 Estimated GFR (MDRD) Non-Af Amer 252 mL/min >60 [facility] Comment on above: Non- GFR Calc GFR/1.73 sq M.predicted among non-blacks MDRD (S/P/Bld) [Vol rate/Area] 252 mL/min/{1.73_m2} >60 [facility] Comment on above: Non- GFR Calc Glucose Ql (U)Ordered By: Edenilson Sethi on 07-03-2024 Urine Glucose (UA) Normal mg/dl Normal [facility] Glucose measurementOrdered B y: Kori Sethi on 07-03-2024 Glucose [Mass/Vol] 105 mg/dL 74-106 [facility] Comment on above: Fasting Glucose resu lt from 100 to 125 mg/dL suggests IMPAIRED HOMEOSTASIS per A.D.A. criteria. Hematocrit Auto (Bld) [Volum e fraction]Ordered By: Kori Sethi on 07-03-2024 Hematocrit (Bld) [Volume fraction] 33.1 % Low 37-47 [facility] Hemoglobin measurementOrdere d By: Kori Sethi on 07-03-2024 Hemoglobin (Bld) [Mass/Vol] 10.1 g/dL Low 12.0-15.0 [facility] Immature granulocytes/100 WB C Auto (Bld)Ordered By: Kori Sethi on 07-03-2024 Immature granulocytes/100 WBC (Bld) 0.300 % 0.0-0.9 [facility] Comment on above: IG% - Immature Granu locytes (promyelocytes, myelocytes and metamyelocytes) > 1% indicates that a LEFT SHIFT is Present. Ketones Test strip Ql (U)Ord ered By: Kori Sethi on 07-03-2024 Ketones Ql (U) Negative Negative [facility] Lymphocytes Auto (Unsp spec) [#/Vol]Ordered By: Kori Sethi on 07-03-2024 Lymphocytes (Bld) [#/Vol] 2.57 10*3/uL 0.83-4.51 [facility] Lymphocytes/100 WBC Auto (Un sp spec)Ordered By: Kori Sethi on 07-03-2024 Lymphocytes/100 WBC (Bld) 36.8 % 19-41 [facility] MCV (mean corpuscular volume ) determinationOrdered By: Kori Sethi on 07-03-2024 MCV (RBC) [Entitic vol] 83.8 fL 81-99 [facility] MR/POSTOP.ANEon 07-03-2024 MR/POSTOP.ANE [facility] Medical Records Department [address] [place] [address] Anesthesia Postop Eval I 07/03/24 1244 MR#: [id number] Acct: [id number] Name: HENRIK REED Rep #: [id number] : 1975 49 From: Allie Ritchie PCP: Dr. Lavon Vicente MD Status:[facility] [place] Y Race: C Location: [place] [address] Anesthesia: Postop Eval I Current Vital Signs Temperature: 97.8 F Pulse Rate: 95 Blood Pressure: 108/78 Respiratory Rate: 20 Pulse Ox: 95 Assessment Airway patent: Yes Spontaneous unlabored respirations: Yes nausea: No Vomiting: No Anesthesia Complication: No Fluid Hydration Crystalloid volume administer (ml): 0 Total IV fluid infused: 0 Progress Note Anesthesia document: Postop Eval 1 completed: Yes 07/03/241244 Date Allie Chau Semyour Signature: Date CC: Signed Normal [facility] MR/[id number] 07-03-2024 [facility] Medical Records Department [address] [place] [address] Anesthesia Postop Eval II 07/03/24 1421 MR#: [id number] Acct: [id number] Name: HENRIK REED Rep #: [id number] : 1975 49 From: Filiberto Ureña MD PCP: Dr. Lavon Vicente MD Status:[facility] [place] Y Race: C Location: [place] [address] Anesthesia Postop Eval I Sum Postop Eval Completion status Anesthesia document: Postop Eval 1 completed: Yes Anesthesia Postop Eval I Summary Anesthesia Postop Eval I Summary: Anesthesia Postop Eval I: Assessment Summary Airway patent Yes 07/03/24 12:44 [email or web address] Spontaneous unlabored Yes 07/03/24 12:44 [email or web address] respirations Mental status nausea No 07/03/24 12:44 [email or web address] Vomiting No 07/03/24 12:44 [email or web address] Anesthesia Postop Eval I: Fluid Summary Crystalloid volume administer 0 07/03/24 12:44 C[employer] [email or web address] (ml) Colloids volume administered ( ml) Blood Product volume administered (ml) Total IV fluid infused 0 07/03/24 12:44 [email or web address] Anesthesia Postop Eval I: Summary Notes Anesthesia Complication No 07/03/24 12:44 C[employer] [email or web address] Anesthesia Complication Comment: Post-operative progress note Anesthesia: Postop Eval II Evaluation Mental status: Awake Pain Level: 2 nausea: No Vomiting: No Complications Anesthesia Complication: No 07/03/24 1421 Date Filiberto Ureña MD Cosigner Signature: Date CC: Signed Normal [facility] Mean corpuscular hemoglobin (MCH) determinationOrdered By: Kori Sethi on 07-03-2024 MCH (RBC) [Entitic mass] 25.6 pg Low 27.0-32.0 [facility] Mean corpuscular hemoglobin concentration (MCHC) determinationOrdered By: Kori Sethi on 07-03-2024 MCHC (RBC) [Mass/Vol] 30.5 g/dL Low 32-36 [facility] Mean platelet volume determi nationOrdered By: Kori Sethi on 07-03-2024 Platelet mean volume (Bld) [Entitic vol] 9.6 fL 6.2-12.0 [facility] Microscopic analysis of urin e for red blood cells (RBC)Ordered By: Kori Sethi on 07-03-2024 Microscopic analysis of urine for red blood cells (RBC) 0 SEEN /hpf 0-5 [facility] Urine RBC 0 SEEN /hpf 0-5 [facility] Monocyte percentageOrdered B y: Kori Sethi on 07-03-2024 Monocytes/100 WBC (Bld) 8.0 % 0-10 [facility] Mucus LM Ql (Urine sed)Order ed By: Kori Sethi on 07-03-2024 Mucus Ql (Urine sed) 0 SEEN /hpf [facility] Neutrophil percentageOrdered By: Kori Sethi on 07-03-2024 Neutrophils/100 WBC (Bld) 50.4 % 47-70 [facility] Nitrite Test strip Ql (U)Ord ered By: Kori Sethi on 07-03-2024 Nitrite Ql (U) Positive High Negative [facility] Nucleated red blood cell per centageOrdered By: Kori Sethi on 07-03-2024 Nucleated RBC/100 WBC (Bld) [Ratio] 0 % 0-5 [facility] Platelet countOrdered By: Edenilson Sethi on 07-03-2024 Platelets (Bld) [#/Vol] 312 10*3/uL 150-450 [facility] Potassium measurementOrdered By: Kori Sethi on 07-03-2024 Potassium [Moles/Vol] 3.8 mmol/L 3.5-5.1 [facility] Protein Test strip Ql (U)Ord ered By: Kori Sethi on 07-03-2024 Protein Ql (U) 15 mg/dl High Negative [facility] RBC Auto (Bld) [#/Vol]Ordere d By: Kori Sethi on 07-03-2024 RBC (Bld) [#/Vol] 3.95 10*6/uL Low 4.2-5.4 [facility] Serum anion gap measurementO rdered By: Kori Sethi on 07-03-2024 Anion gap [Moles/Vol] 4 mmol/L Low 5-15 [facility] Serum or plasma calcium miguel angel urement (mass/volume)Ordered By: Kori Sethi on 07-03-2024 Calcium [Mass/Vol] 9.0 mg/dL 8.5-10.1 [facility] Serum or plasma creatinine m easurement (mass/volume)Ordered By: Kori Sethi on 07-03-2024 Creatinine [Mass/Vol] 0.30 mg/dL Low 0.55-1.02 [facility] Comment on above: The validity of the calculated GFR & GFRAA in patients over 70 years has not been determined. Clinical correlation is essential. Serum or plasma urea nitroge n measurement (mass/volume)Ordered By: Kori Sethi on 07-03-2024 Urea nitrogen [Mass/Vol] 12 mg/dL 7-18 [facility] Sodium levelOrdered By: Bailey Sethi on 07-03-2024 Sodium [Moles/Vol] 138 mmol/L 136-145 [facility] Squamous epithelial cells de tection in urine sediment by light microscopyOrdered By: Kori Sethi on 07-03-2024 Epithelial cells.squamous LM Ql (Urine sed) 0-5 SEEN /hpf 5-10 [facility] Triple phosphate crystals LM Ql (Urine sed)Ordered By: Kori Sethi on 07-03-2024 Urine Triple Phosphate Crystals 1+ /hpf [facility] Triple phosphate crystals de tection in urine sediment by light microscopyOrdered By: Kori Sethi on 07-03-2024 Triple phosphate crystals LM Ql (Urine sed) 1+ /hpf [facility] Urinalysis, Completeon 07-03 AMORPHOUS 2+ Normal [facility] Comment on above: Order Comment: NORMA TER SPECIMEN Performed By: #### L 400.0001, L500.2500, L100.0100, M100.2200 #### [facility] [address] [place], [address] TRIPLE PHOS 1+ /hpf Normal [facility] Comment on above: Order Comment: NORMA TER SPECIMEN Performed By: #### L 400.0001, L500.2500, L100.0100, M100.2200 #### [facility] [address] [place], [address] BACTERIA 1+ /hpf Normal None Seen [facility] Comment on above: Order Comment: NORMA TER SPECIMEN Performed By: #### L 400.0001, L500.2500, L100.0100, M100.2200 #### [facility] [address] [place], [address] EPI,SQUAMOUS 0-5 SEEN Normal 5-10 [facility] Comment on above: Order Comment: NORMA TER SPECIMEN Performed By: #### L 400.0001, L500.2500, L100.0100, M100.2200 #### [facility] [address] [place], [address] WBC 0-5 SEEN Normal 0-5 [facility] Comment on above: Order Comment: NORMA TER SPECIMEN Performed By: #### L 400.0001, L500.2500, L100.0100, M100.2200 #### [facility] [address] [place], [address] Mucus Ql (Urine sed) 0 SEEN Normal [facility] Comment on above: Order Comment: NORMA TER SPECIMEN Performed By: #### L 400.0001, L500.2500, L100.0100, M100.2200 #### [facility] [address] [place], [address] RBC 0 SEEN Normal 0-5 [facility] Comment on above: Order Comment: NORMA TER SPECIMEN Performed By: #### L 400.0001, L500.2500, L100.0100, M100.2200 #### [facility] [address] [place], [address] Urine blood detectionOrdered By: Kori Sethi on 07-03-2024 Urine Occult Blood 50 /ul High Negative [facility] Urine clarityOrdered By: Shavonne Sethi on 07-03-2024 Clarity (U) Sl. Cloudy Clear [facility] Urine color determinationOrd ered By: Kori Sethi on 07-03-2024 Color (U) Yellow Yellow [facility] Urine cultureOrdered By: Shavonne Sethi on 07-03-2024 Bacteria identified Cx Nom (U) Mixed Gram Pos & Gram Neg Org Abnormal [facility] Urine glucose detectionOrder ed By: Kori Sethi on 07-03-2024 Glucose Ql (U) Normal mg/dl Normal [facility] Urine leukocyte esterase det ection by dipstickOrdered By: Kroi Sethi on 07-03-2024 Leukocyte esterase Test strip Ql (U) 500 /ul High Negative [facility] Urine pHOrdered By: Kori Rider udla on 07-03-2024 pH (U) 8.0 [pH] 5.0 - 8.0 [facility] Urine sediment bacteria coun t by microscopy (number/high power field)Ordered By: Kori Sethi on 07-03-2024 Bacteria LM.HPF (Urine sed) [#/Area] 1 /[HPF] None Seen [facility] Urine specific gravity measu rementOrdered By: Kori Sethi on 07-03-2024 Specific gravity (U) [Rel density] 1.010 1.002-1.030 [facility] Urine urobilinogen measureme ntOrdered By: Kori Sethi on 07-03-2024 Urobilinogen Ql (U) 1 mg/dl High Normal [facility] Urobilinogen Ql (U)Ordered B y: Kori Sethi on 07-03-2024 Urobilinogen (U) [Mass/Vol] 1 mg/dL High Normal [facility] White blood cell (WBC) count Ordered By: Kori Sethi on 07-03-2024 WBC (Bld) [#/Vol] 7.0 10*3/uL 4.4-11.0 [facility] White blood cell countOrdere d By: Kori Sethi on 07-03-2024 Urine WBC 0-5 SEEN /hpf 0-5 [facility] White blood cell count 0-5 SEEN /hpf 0-5 [facility] 91-RY-Rsecylj DOrdered By: Nancie Sethi on 06-12-2024 Vitamin D 25-Hydroxy 41.4 ng/mL [facility] Comment on above: Vitamin D 25(OH) Sta tus Range Deficiency <20 ng/mL (50nmol/L) Insufficiency 20 - 30 ng/mL (50 - 75 nmol/L) Sufficiency 30 - 100 ng/mL (75 - 250 nmol/L) Toxicity >100 ng/mL (>250 nmol/L) Absolute neutrophil countOrd ered By: Kori Sethi on 06-12-2024 Neutrophils (Bld) [#/Vol] 3.3 10*3/uL 2.0-7.7 [facility] Albumin to globulin ratioOrd ered By: Kori Sethi on 06-12-2024 Albumin/Globulin [Mass ratio] 0.5 {ratio} Low 0.9-2.4 [facility] Basophil percentageOrdered B y: Kori Sethi on 06-12-2024 Basophils/100 WBC (Bld) 0.7 % 0-1 [facility] Bilirubin, totalOrdered By: Kori Sethi on 06-12-2024 Bilirubin [Mass/Vol] 0.30 mg/dL 0.20-1.00 [facility] Comment on above: For patients on eltr ombopag therapy, use of Dimension [place] TBIL is not recommended. Blood urea nitrogen (BUN)/cr eatinine ratioOrdered By: Kori Sethi on 06-12-2024 Urea nitrogen/Creatinine [Mass ratio] 30.7 mg/mg High 10-20 [facility] CBC W/Diff, Automatedon 05-16 Absolute Lymph 2.55 X10 3/uL Normal 0.83-4.51 [facility] Comment on above: Order Comment: 517-2 Performed By: #### L 500.4050, L503.0105, L506.1000, L100.0100, L500.4100, L501.9520 #### [facility] [address] [place], [address] Absolute Neut 3.3 X10 3/uL Normal 2.0-7.7 [facility] Comment on above: Order Comment: 517-2 Performed By: #### L 500.4050, L503.0105, L506.1000, L100.0100, L500.4100, L501.9520 #### [facility] [address] [place], [address] Basophils/100 WBC (Bld) 0.7 % Normal 0-1 [facility] Comment on above: Order Comment: 517-2 Performed By: #### L 500.4050, L503.0105, L506.1000, L100.0100, L500.4100, L501.9520 #### [facility] [address] [place], [address] Eosinophils/100 WBC (Bld) 5.2 % High 0-5 [facility] Comment on above: Order Comment: 517-2 Performed By: #### L 500.4050, L503.0105, L506.1000, L100.0100, L500.4100, L501.9520 #### [facility] [address] [place], [address] Erythrocyte distribution width (RBC) [Ratio] 16.0 % High 11.6-14.6 [facility] Comment on above: Order Comment: 517-2 Performed By: #### L 500.4050, L503.0105, L506.1000, L100.0100, L500.4100, L501.9520 #### [facility] [address] [place], [address] Hematocrit (Bld) [Volume fraction] 32.9 % Low 37-47 [facility] Comment on above: Order Comment: 517-2 Performed By: #### L 500.4050, L503.0105, L506.1000, L100.0100, L500.4100, L501.9520 #### [facility] [address] [place], [address] Hemoglobin (Bld) [Mass/Vol] 9.9 g/dL Low 12.0-15.0 [facility] Comment on above: Order Comment: 517-2 Performed By: #### L 500.4050, L503.0105, L506.1000, L100.0100, L500.4100, L501.9520 #### [facility] [address] [place], [address] IG% 0.300 Normal 0.0-0.9 [facility] Comment on above: Order Comment: 517-2 Result Comment: IG% - Immature Granulocytes (promyelocytes, myelocytes and metamyelocytes) > 1% indicates that a LEFT SHIFT is Present. Performed By: #### L 500.4050, L503.0105, L506.1000, L100.0100, L500.4100, L501.9520 #### [facility] [address] [place], [address] Lymphocytes/100 WBC (Bld) 37.6 % Normal 19-41 [facility] Comment on above: Order Comment: 517-2 Performed By: #### L 500.4050, L503.0105, L506.1000, L100.0100, L500.4100, L501.9520 #### [facility] [address] [place], [address] MCH (RBC) [Entitic mass] 25.0 pg Low 27.0-32.0 [facility] Comment on above: Order Comment: 517-2 Performed By: #### L 500.4050, L503.0105, L506.1000, L100.0100, L500.4100, L501.9520 #### [facility] [address] [place], [address] MCHC (RBC) [Mass/Vol] 30.1 g/dL Low 32-36 [facility] Comment on above: Order Comment: 517-2 Performed By: #### L 500.4050, L503.0105, L506.1000, L100.0100, L500.4100, L501.9520 #### [facility] [address] [place], [address] MCV (RBC) [Entitic vol] 83.1 fL Normal 81-99 [facility] Comment on above: Order Comment: 517-2 Performed By: #### L 500.4050, L503.0105, L506.1000, L100.0100, L500.4100, L501.9520 #### [facility] [address] [place], [address] Monocytes/100 WBC (Bld) 7.4 % Normal 0-10 [facility] Comment on above: Order Comment: 517-2 Performed By: #### L 500.4050, L503.0105, L506.1000, L100.0100, L500.4100, L501.9520 #### [facility] [address] [place], [address] Neutrophils/100 WBC (Bld) 48.8 % Normal 47-70 [facility] Comment on above: Order Comment: 517-2 Performed By: #### L 500.4050, L503.0105, L506.1000, L100.0100, L500.4100, L501.9520 #### [facility] [address] [place], [address] Nucleated RBC (Bld) [#/Vol] 0 10*3/uL Normal 0-5 [facility] Comment on above: Order Comment: 517-2 Performed By: #### L 500.4050, L503.0105, L506.1000, L100.0100, L500.4100, L501.9520 #### [facility] [address] [place], [address] Platelet mean volume (Bld) [Entitic vol] 9.4 fL Normal 6.2-12.0 [facility] Comment on above: Order Comment: 517-2 Performed By: #### L 500.4050, L503.0105, L506.1000, L100.0100, L500.4100, L501.9520 #### [facility] [address] [place], [address] Platelets (Bld) [#/Vol] 342 10*3/uL Normal 150-450 [facility] Comment on above: Order Comment: 517-2 Performed By: #### L 500.4050, L503.0105, L506.1000, L100.0100, L500.4100, L501.9520 #### [facility] [address] [place], [address] RBC (Bld) [#/Vol] 3.96 10*6/uL Low 4.2-5.4 [facility] Comment on above: Order Comment: 517-2 Performed By: #### L 500.4050, L503.0105, L506.1000, L100.0100, L500.4100, L501.9520 #### [facility] [address] [place], [address] RDW SD 48.2 fl High 35.1-43.9 [facility] Comment on above: Order Comment: 517-2 Performed By: #### L 500.4050, L503.0105, L506.1000, L100.0100, L500.4100, L501.9520 #### [facility] [address] [place], [address] WBC (Bld) [#/Vol] 6.8 10*3/uL Normal 4.4-11.0 [facility] Comment on above: Order Comment: 517-2 Performed By: #### L 500.4050, L503.0105, L506.1000, L100.0100, L500.4100, L501.9520 #### [facility] [address] [place], [address] Carbon dioxide measurementOr dered By: Kori Sethi on 06-12-2024 CO2 [Moles/Vol] 29.0 mmol/L 21.0-32.0 [facility] Chloride measurementOrdered By: Kori Sethi on 06-12-2024 Chloride [Moles/Vol] 102 mmol/L 98-107 [facility] Comprehensive Metabolic Prof ilon 06-12-2024 Albumin [Mass/Vol] 2.8 g/dL Low 3.2-5.0 [facility] Comment on above: Order Comment: 517-2 Performed By: #### L 500.4050, L503.0105, L506.1000, L100.0100, L500.4100, L501.9520 #### [facility] [address] [place], [address] Albumin/Globulin [Mass ratio] 0.5 {ratio} Low 0.9-2.4 [facility] Comment on above: Order Comment: 517-2 Performed By: #### L 500.4050, L503.0105, L506.1000, L100.0100, L500.4100, L501.9520 #### [facility] [address] [place], [address] ALK P 94 U/L Normal 45-117 [facility] Comment on above: Order Comment: 517-2 Performed By: #### L 500.4050, L503.0105, L506.1000, L100.0100, L500.4100, L501.9520 #### [facility] [address] [place], [address] ALT [Catalytic activity/Vol] 27 U/L Normal 13-56 [facility] Comment on above: Order Comment: 517-2 Performed By: #### L 500.4050, L503.0105, L506.1000, L100.0100, L500.4100, L501.9520 #### [facility] [address] [place], [address] AST [Catalytic activity/Vol] 18 U/L Normal 15-37 [facility] Comment on above: Order Comment: 517-2 Performed By: #### L 500.4050, L503.0105, L506.1000, L100.0100, L500.4100, L501.9520 #### [facility] [address] [place], [address] Bilirubin [Mass/Vol] 0.30 mg/dL Normal 0.20-1.00 [facility] Comment on above: Order Comment: 517-2 Result Comment: For patients on eltrombopag therapy, use of Dimension [place] TBIL is not recommended. Performed By: #### L 500.4050, L503.0105, L506.1000, L100.0100, L500.4100, L501.9520 #### [facility] [address] [place], [address] BUN/CRE 30.7 RATIO High 10-20 [facility] Comment on above: Order Comment: 517-2 Performed By: #### L 500.4050, L503.0105, L506.1000, L100.0100, L500.4100, L501.9520 #### [facility] [address] [place], [address] CA,Total 8.8 mg/dL Normal 8.5-10.1 [facility] Comment on above: Order Comment: 517-2 Performed By: #### L 500.4050, L503.0105, L506.1000, L100.0100, L500.4100, L501.9520 #### [facility] [address] [place], [address] Chloride [Moles/Vol] 102 mmol/L Normal 98-107 [facility] Comment on above: Order Comment: 517-2 Performed By: #### L 500.4050, L503.0105, L506.1000, L100.0100, L500.4100, L501.9520 #### [facility] [address] [place], [address] CO2 [Moles/Vol] 29.0 mmol/L Normal 21.0-32.0 [facility] Comment on above: Order Comment: -2 Performed By: #### L 500.4050, L503.0105, L506.1000, L100.0100, L500.4100, L501.9520 #### [facility] [address] [place], [address] Creatinine [Mass/Vol] 0.36 mg/dL Low 0.55-1.02 [facility] Comment on above: Order Comment: -2 Result Comment: The validity of the calculated GFR GFRAA in patients over 70 years has not been determined. Clinical correlation is essential. Performed By: #### L 500.4050, L503.0105, L506.1000, L100.0100, L500.4100, L501.9520 #### [facility] [address] [place], [address] EST GFR - AA 247 mL/min Normal >60 [facility] Comment on above: Order Comment: Result Comment: Afri can Luxembourger GFR Calc Performed By: #### L 500.4050, L503.0105, L506.1000, L100.0100, L500.4100, L501.9520 #### [facility] [address] [place], [address] GAP 8 Normal 5-15 [facility] Comment on above: Order Comment: -2 Performed By: #### L 500.4050, L503.0105, L506.1000, L100.0100, L500.4100, L501.9520 #### [facility] [address] [place], [address] GFR/1.73 sq M.predicted among non-blacks MDRD (S/P/Bld) [Vol rate/Area] 204 mL/min/{1.73_m2} Normal >60 [facility] Comment on above: Order Comment: Result Comment: Non- GFR Calc Performed By: #### L 500.4050, L503.0105, L506.1000, L100.0100, L500.4100, L501.9520 #### [facility] [address] [place], [address] Globulin (S) [Mass/Vol] 5.1 g/dL High 2.2-4.2 [facility] Comment on above: Order Comment: 517-2 Performed By: #### L 500.4050, L503.0105, L506.1000, L100.0100, L500.4100, L501.9520 #### [facility] [address] [place], [address] Glucose [Mass/Vol] 106 mg/dL Normal 74-106 [facility] Comment on above: Order Comment: 517-2 Result Comment: Fast ing Glucose result from 100 to 125 mg/dL suggests IMPAIRED HOMEOSTASIS per A.D.A. criteria. Performed By: #### L 500.4050, L503.0105, L506.1000, L100.0100, L500.4100, L501.9520 #### [facility] [address] [place], [address] Potassium [Moles/Vol] 3.4 mmol/L Low 3.5-5.1 [facility] Comment on above: Order Comment: 517-2 Performed By: #### L 500.4050, L503.0105, L506.1000, L100.0100, L500.4100, L501.9520 #### [facility] [address] [place], [address] Sodium [Moles/Vol] 139 mmol/L Normal 136-145 [facility] Comment on above: Order Comment: 517-2 Performed By: #### L 500.4050, L503.0105, L506.1000, L100.0100, L500.4100, L501.9520 #### [facility] [address] [place], [address] T PROT 7.9 g/dL Normal 6.4-8.2 [facility] Comment on above: Order Comment: 517-2 Performed By: #### L 500.4050, L503.0105, L506.1000, L100.0100, L500.4100, L501.9520 #### [facility] [address] [place], [address] Urea nitrogen [Mass/Vol] 11 mg/dL Normal 7-18 [facility] Comment on above: Order Comment: 517-2 Performed By: #### L 500.4050, L503.0105, L506.1000, L100.0100, L500.4100, L501.9520 #### [facility] [address] [place], [address] Eosinophil percentageOrdered By: Kori Sethi on 06-12-2024 Eosinophils/100 WBC (Bld) 5.2 % High 0-5 [facility] Erythrocyte distribution wid th (RBC) [Ratio]Ordered By: Korijonathan Sethi on 06-12-2024 Erythrocyte distribution width (RBC) [Entitic vol] 48.2 fL High 35.1-43.9 [facility] Erythrocyte distribution wid th ratioOrdered By: Kori Sethi on 06-12-2024 Erythrocyte distribution width (RBC) [Ratio] 16.0 % High 11.6-14.6 [facility] Estimated glomerular filtrat ion rate (GFR) AmericanOrdered By: Kori Sethi on 06-12-2024 Estimated GFR (MDRD) Amer 247 mL/min >60 [facility] Comment on above: GFR Calc Glomerular filtration rate ( GFR) estimationOrdered By: Kori Sethi on 06-12-2024 Estimated GFR (MDRD) Non-Af Amer 204 mL/min >60 [facility] Comment on above: Non- GFR Calc Glucose measurementOrdered B y: Kori Sethi on 06-12-2024 Glucose [Mass/Vol] 106 mg/dL 74-106 [facility] Comment on above: Fasting Glucose resu lt from 100 to 125 mg/dL suggests IMPAIRED HOMEOSTASIS per A.D.A. criteria. Hematocrit Auto (Bld) [Volum e fraction]Ordered By: Kori Sethi on 06-12-2024 Hematocrit (Bld) [Volume fraction] 32.9 % Low 37-47 [facility] Hemoglobin measurementOrdere d By: Kori Sethi on 06-12-2024 Hemoglobin (Bld) [Mass/Vol] 9.9 g/dL Low 12.0-15.0 [facility] High density lipoprotein (HD L) measurementOrdered By: Kori Sethi on 06-12-2024 Cholesterol in HDL [Mass/Vol] 58 mg/dL >40 [facility] Comment on above: The drugs N-Acetylcy steine and Metamizole may falsely depress this assay. Reference Range HDL <40 mg/dL Low HDL Cholesterol HDL >or= 60 mg/dL High HDL Cholesterol Immature granulocytes/100 WB C Auto (Bld)Ordered By: Kori Sethi on 06-12-2024 Immature granulocytes/100 WBC (Bld) 0.300 % 0.0-0.9 [facility] Comment on above: IG% - Immature Granu locytes (promyelocytes, myelocytes and metamyelocytes) > 1% indicates that a LEFT SHIFT is Present. Laboratory - Chemistry and C hemistry - challengeOrdered By: Kori Sethi on 06-12-2024 AST [Catalytic activity/Vol] 18 U/L 15-37 [facility] Lipid Profileon 06-12-2024 Cholesterol [Mass/Vol] 184 mg/dL Normal 200 [facility] Comment on above: Order Comment: Result Comment: <200 mg/dL Desirable 200-240 mg/dL Borderline >240 mg/dL High Risk Performed By: #### L 500.4050, L503.0105, L506.1000, L100.0100, L500.4100, L501.9520 #### [facility] [address] [place], [address] Cholesterol in HDL [Mass/Vol] 58 mg/dL Normal [facility] Comment on above: Order Comment: - Result Comment: The drugs N-Acetylcysteine and Metamizole may falsely depress this assay. Reference Range HDL <40 mg/dL Low HDL Cholesterol HDL >or= 60 mg/dL High HDL Cholesterol Performed By: #### L 500.4050, L503.0105, L506.1000, L100.0100, L500.4100, L501.9520 #### [facility] [address] [place], [address] Cholesterol in LDL [Mass/Vol] 108 mg/dL Normal 0-130 [facility] Comment on above: Order Comment: 517-2 Performed By: #### L 500.4050, L503.0105, L506.1000, L100.0100, L500.4100, L501.9520 #### [facility] [address] [place], [address] Cholesterol in VLDL [Mass/Vol] 18 mg/dL Normal 5-40 [facility] Comment on above: Order Comment: 517-2 Performed By: #### L 500.4050, L503.0105, L506.1000, L100.0100, L500.4100, L501.9520 #### [facility] [address] [place], [address] Triglyceride [Mass/Vol] 91 mg/dL Normal [facility] Comment on above: Order Comment: 517-2 Result Comment: The drugs N-Acetylcysteine and Metamizole may falsely depress this assay. Serum Triglycerides Reference Interval Normal <150 mg/dL Borderline high 150 - 199 mg/dL High 200 - 499 mg/dL Very High > or = 500 mg/dL Performed By: #### L 500.4050, L503.0105, L506.1000, L100.0100, L500.4100, L501.9520 #### [facility] [address] [place], [address] Low density lipoprotein (LDL ) cholesterol measurementOrdered By: Kori Sethi on 06-12-2024 Cholesterol in LDL [Mass/Vol] 108 mg/dL 0-130 [facility] Lymphocytes Auto (Unsp spec) [#/Vol]Ordered By: Kori Sethi on 06-12-2024 Lymphocytes (Bld) [#/Vol] 2.55 10*3/uL 0.83-4.51 [facility] Lymphocytes/100 WBC Auto (Un sp spec)Ordered By: Kori Sethi on 06-12-2024 Lymphocytes/100 WBC (Bld) 37.6 % 19-41 [facility] MCV (mean corpuscular volume ) determinationOrdered By: Kori Sethi on 06-12-2024 MCV (RBC) [Entitic vol] 83.1 fL 81-99 [facility] Mean corpuscular hemoglobin (MCH) determinationOrdered By: Kori Sethi on 06-12-2024 MCH (RBC) [Entitic mass] 25.0 pg Low 27.0-32.0 [facility] Mean corpuscular hemoglobin concentration (MCHC) determinationOrdered By: Kori Setih on 06-12-2024 MCHC (RBC) [Mass/Vol] 30.1 g/dL Low 32-36 [facility] Mean platelet volume determi nationOrdered By: Kori Sethi on 06-12-2024 Platelet mean volume (Bld) [Entitic vol] 9.4 fL 6.2-12.0 [facility] Monocyte percentageOrdered B y: Kori Sethi on 06-12-2024 Monocytes/100 WBC (Bld) 7.4 % 0-10 [facility] Neutrophil percentageOrdered By: Kori Sethi on 06-12-2024 Neutrophils/100 WBC (Bld) 48.8 % 47-70 [facility] Nucleated red blood cell per centageOrdered By: Kori Sethi on 06-12-2024 Nucleated RBC/100 WBC (Bld) [Ratio] 0 % 0-5 [facility] Platelet countOrdered By: Edenilson Sethi on 06-12-2024 Platelets (Bld) [#/Vol] 342 10*3/uL 150-450 [facility] Potassium measurementOrdered By: Kori Sethi on 06-12-2024 Potassium [Moles/Vol] 3.4 mmol/L Low 3.5-5.1 [facility] RBC Auto (Bld) [#/Vol]Ordere d By: Kori Sethi on 06-12-2024 RBC (Bld) [#/Vol] 3.96 10*6/uL Low 4.2-5.4 [facility] Serum anion gap measurementO rdered By: Kori Sethi on 06-12-2024 Anion gap [Moles/Vol] 8 mmol/L 5-15 [facility] Serum globulin measurementOr dered By: Kori Sethi on 06-12-2024 Globulin (S) [Mass/Vol] 5.1 g/dL High 2.2-4.2 [facility] Serum or plasma alanine lyon otransferase (ALT) measurementOrdered By: Kori Sethi on 06-12-2024 ALT [Catalytic activity/Vol] 27 U/L 13-56 [facility] Serum or plasma albumin miguel angel urement (mass/volume)Ordered By: Kori Sethi on 06-12-2024 Albumin [Mass/Vol] 2.8 g/dL Low 3.2-5.0 [facility] Serum or plasma alkaline raghu sphatase measurementOrdered By: Kori Sethi on 06-12-2024 ALP [Catalytic activity/Vol] 94 U/L 45-117 [facility] Serum or plasma calcium miguel angel urement (mass/volume)Ordered By: Kori Sethi on 06-12-2024 Calcium [Mass/Vol] 8.8 mg/dL 8.5-10.1 [facility] Serum or plasma cholesterol measurement (mass/volume)Ordered By: Kori Sethi on 06-12-2024 Cholesterol [Mass/Vol] 184 mg/dL <200 [facility] Comment on above: <200 mg/dL Desirable 200-240 mg/dL Borderline >240 mg/dL High Risk Serum or plasma creatinine m easurement (mass/volume)Ordered By: Kori Sethi on 06-12-2024 Creatinine [Mass/Vol] 0.36 mg/dL Low 0.55-1.02 [facility] Comment on above: The validity of the calculated GFR & GFRAA in patients over 70 years has not been determined. Clinical correlation is essential. Serum or plasma urea nitroge n measurement (mass/volume)Ordered By: Kori Sethi on 06-12-2024 Urea nitrogen [Mass/Vol] 11 mg/dL 7-18 [facility] Sodium levelOrdered By: Bailey Sethi on 06-12-2024 Sodium [Moles/Vol] 139 mmol/L 136-145 [facility] TSH QnOrdered By: Kori patterson on 06-12-2024 Thyroid Stimulating Hormone (TSH) 4.310 uIU/mL High 0.358-3.740 [facility] Thyroid Stim Hormone (TSH)on 06-12-2024 TSH 4.310 uIU/mL High 0.358-3.740 [facility] Comment on above: Order Comment: 517-2 Performed By: #### L 500.4050, L503.0105, L506.1000, L100.0100, L500.4100, L501.9520 #### [facility] Laboratory [address] [place], [address] Total proteinOrdered By: Shavonne Sethi on 06-12-2024 Protein [Mass/Vol] 7.9 g/dL 6.4-8.2 [facility] Triglycerides measurementOrd ered By: Kori Sethi on 06-12-2024 Triglyceride [Mass/Vol] 91 mg/dL <199 [facility] Comment on above: The drugs N-Acetylcy steine and Metamizole may falsely depress this assay.Serum Triglycerides Reference Interval Normal <150 mg/dL Borderline high 150 - 199 mg/dL High 200 - 499 mg/dL Very High > or = 500 mg/dL Very low density lipoprotein (VLDL) cholesterol measurementOrdered By: Kori Sethi on 06-12-2024 VLDL Cholesterol 18 mg/dL 5-40 [facility] Vitamin B12on 06-12-2024 Cobalamin (Vitamin B12) [Mass/Vol] 414 pg/mL Normal 211-911 [facility] Comment on above: Order Comment: [id number] Performed By: #### L 500.4050, L503.0105, L506.1000, L100.0100, L500.4100, L501.9520 #### [facility] [address] [place], [place], [id number] Vitamin B12 measurementOrder ed By: Kori Sethi on 06-12-2024 Cobalamin (Vitamin B12) [Mass/Vol] 414 pg/mL 211-911 [facility] Vitamin D,25 Hydroxyon 06-12 Vitamin D 25-OH 41.4 ng/mL Normal [facility] Comment on above: Order Comment: 517-2 Result Comment: Rosalba min D 25(OH) Status Range Deficiency <20 ng/mL (50nmol/L) Insufficiency 20 - 30 ng/mL (50 - 75 nmol/L) Sufficiency 30 - 100 ng/mL (75 - 250 nmol/L) Toxicity >100 ng/mL (>250 nmol/L) Performed By: #### L 500.4050, L503.0105, L506.1000, L100.0100, L500.4100, L501.9520 #### [facility] [address] [place], [address] White blood cell (WBC) count Ordered By: Kori Sethi on 06-12-2024 WBC (Bld) [#/Vol] 6.8 10*3/uL 4.4-11.0 [facility] Stool Occult Blood iFOBon STOB Negative Normal [facility] Comment on above: Performed By: #### L 400.0001, L500.2500, L100.0100, M100.2200 #### [facility] [address] [place], [place], [id number] LABORATORYOrdered By: SYSTEM SYSTEM on 03-01-2024 Calcium [...] above: Interpretive Data: T esting performed on [employer] analyzer using enzymatic creatinine methodology. Electrolyte Balance 1.0 mEq/L Low 4.0 - 15 .0 mEq/L ADM SS GFR/1.73 sq M.predicted among blacks MDRD (S/P/Bld) [Vol rate/Area] ml/min/1.73sqm Invalid Interpretation Code [facility] Comment on above: Interpretive Data: [...] (S/P/Bld) [Vol rate/Area] ml/min/1.73sqm Invalid Interpretation Code [facility] Comment on above: Interpretive Data: [...] kidneys. 2. Urinary bladder drained via functioning Mccrathy catheter. Interpreted by: Niko Rendon DO Preliminary Report By: Niko Rendon DO Electronically signed By Niko Rendon DO Dictated Date: 01/27/2024 1:15:11 PM Prelim Date: 01/27/2024 1:20:23 PM Sign Date: 01/27/2024 1:20:23 PM Ordering Provider: LONI Martinez [facility] ([place]) XR ABDOMEN APon 01-27-2024 XR ABDOMEN AP [...] 01/27/2024 10:48:47 PM Ordering Provider: LONI PAGE [facility] ([place]) Basophil percentageOrdered B y: Lavon Vicente on 10-21-2023 Basophil percentage 9.4 g/dL 12.0-15.0 [facility] Basophil percentage 137 mg/dL 74-106 [facility] Basophil percentage 7.5 g/dL 6.4-8.2 [facility] Basophil percentage 0.20 mg/dL 0.20-1.00 [facility] Basophil percentage 138 mmol/L 136-145 [facility] Basophil percentage 3.4 mmol/L 3.5-5.1 [facility] Basophil percentage 101 mmol/L 98-107 [facility] Basophils (Bld) [#/Vol] 8.3 10*3/uL 4.4-11.0 [facility] Determination of erythrocyte mean corpuscular volume (MCV)Ordered By: Lavon Vicente on 10-21-2023 MCV (RBC) [Entitic vol] 83.5 fL 81-99 [facility] Erythrocyte distribution wid th ratioOrdered By: Lavon Vicente on 10-21-2023 Erythrocyte distribution width (RBC) [Ratio] 15.6 % 11.6-14.6 [facility] Erythrocyte distribution wid th standard deviationOrdered By: Lavon Vicente on 10-21-2023 Erythrocyte distribution width (RBC) [Entitic vol] 47.5 fL 35.1-43.9 [facility] Hematocrit Auto (Bld) [Volum e fraction]Ordered By: Lavon Vicente on 10-21-2023 Hematocrit (Bld) [Volume fraction] 31.3 % 37-47 [facility] No Panel InformationOrdered By: Lavon Vicente on 10-21-2023 25.1 pg 27.0-32.0 [facility] 30.0 g/dL 32-36 [facility] 293 K/mm3 150-450 [facility] 9.3 fl 6.2-12.0 [facility] 304 mL/min >60 [facility] 367 mL/min >60 [facility] 47.2 RATIO 10-20 [facility] 4.8 g/dL 2.2-4.2 [facility] 0.6 RATIO 0.9-2.4 [facility] 114 U/L 45-117 [facility] 20 U/L 13-56 [facility] 34.0 mmol/L 21.0-32.0 [facility] RBC Auto (Bld) [#/Vol]Ordere d By: Lavon Vicente on 10-21-2023 RBC (Bld) [#/Vol] 3.75 10*6/uL 4.2-5.4 [facility] Serum or plasma calcium miguel angel urement (mass/volume)Ordered By: Lavon Vicente on 10-21-2023 Calcium [Mass/Vol] 8.5 mg/dL 8.5-10.1 [facility] Serum or plasma creatinine m easurement (mass/volume)Ordered By: Lavon Vicente on 10-21-2023 Creatinine [Mass/Vol] 0.25 mg/dL 0.55-1.02 [facility] Serum or plasma urea nitroge n measurement (mass/volume)Ordered By: Lavon Vicente on 10-21-2023 Urea nitrogen [Mass/Vol] 12 mg/dL 7-18 [facility] Thin prep Papanicolaou smear with manual screeningOrdered By: Lavon Vicente on 10-21-2023 Thin prep Papanicolaou smear with manual screening 2.7 g/dL 3.2-5.0 [facility] Thin prep Papanicolaou smear with manual screening 14 U/L 15-37 [facility] Thin prep Papanicolaou smear with manual screening 3 5-15 [facility] Basophil percentageOrdered B y: Lavon Vicente on 10-15-2023 Basophil percentage 10.2 g/dL 12.0-15.0 [facility] Basophil percentage 126 mg/dL 74-106 [facility] Basophil percentage 7.8 g/dL 6.4-8.2 [facility] Basophil percentage 0.20 mg/dL 0.20-1.00 [facility] Basophil percentage 137 mmol/L 136-145 [facility] Basophil percentage 4.0 mmol/L 3.5-5.1 [facility] Basophil percentage 100 mmol/L 98-107 [facility] Basophils (Bld) [#/Vol] 8.8 10*3/uL 4.4-11.0 [facility] Determination of erythrocyte mean corpuscular volume (MCV)Ordered By: Lavon Vicente on 10-15-2023 MCV (RBC) [Entitic vol] 81.8 fL 81-99 [facility] Erythrocyte distribution wid th ratioOrdered By: Lavon Vicente on 10-15-2023 Erythrocyte distribution width (RBC) [Ratio] 15.5 % 11.6-14.6 [facility] Erythrocyte distribution wid th standard deviationOrdered By: Lavon Vicente on 10-15-2023 Erythrocyte distribution width (RBC) [Entitic vol] 46.4 fL 35.1-43.9 [facility] Hematocrit Auto (Bld) [Volum e fraction]Ordered By: Lavon Vicente on 10-15-2023 Hematocrit (Bld) [Volume fraction] 33.8 % 37-47 [facility] No Panel InformationOrdered By: Lavon Vicente on 10-15-2023 24.7 pg 27.0-32.0 [facility] 30.2 g/dL 32-36 [facility] 301 K/mm3 150-450 [facility] 9.4 fl 6.2-12.0 [facility] 253 mL/min >60 [facility] 306 mL/min >60 [facility] 50.3 RATIO 10-20 [facility] 4.9 g/dL 2.2-4.2 [facility] 0.6 RATIO 0.9-2.4 [facility] 121 U/L 45-117 [facility] 27 U/L 13-56 [facility] 35.0 mmol/L 21.0-32.0 [facility] RBC Auto (Bld) [#/Vol]Ordere d By: Lavon Vicente on 10-15-2023 RBC (Bld) [#/Vol] 4.13 10*6/uL 4.2-5.4 [facility] Serum or plasma calcium miguel angel urement (mass/volume)Ordered By: Lavon Vicente on 10-15-2023 Calcium [Mass/Vol] 9.2 mg/dL 8.5-10.1 [facility] Serum or plasma creatinine m easurement (mass/volume)Ordered By: Lavon Vicente on 10-15-2023 Creatinine [Mass/Vol] 0.30 mg/dL 0.55-1.02 [facility] Serum or plasma urea nitroge n measurement (mass/volume)Ordered By: Lavon Vicente on 10-15-2023 Urea nitrogen [Mass/Vol] 15 mg/dL 7-18 [facility] Thin prep Papanicolaou smear with manual screeningOrdered By: Lavon Vicente on 10-15-2023 Thin prep Papanicolaou smear with manual screening 2.9 g/dL 3.2-5.0 [facility] Thin prep Papanicolaou smear with manual screening 20 U/L 15-37 [facility] Thin prep Papanicolaou smear with manual screening 2 5-15 [facility] Bacteria identified Cx Nom ( U)Ordered By: Lavon Vicente on 10-01-2023 Culture, urine Proteus mirabilis [facility] Basophil percentageOrdered B y: Lavon Vicente on 10-01-2023 Basophil percentage 0 SEEN /hpf 0-5 [facility] Bilirubin Test strip Ql (U)O rdered By: Lavon Vicente on 10-01-2023 Bilirubin Ql (U) Negative Negative [facility] Ketones Test strip Ql (U)Ord ered By: Lavon Vicente on 10-01-2023 Ketones Ql (U) Negative Negative [facility] Magnesium ammonium phosphate crystal detectionOrdered By: Lavon Vicente on 10-01-2023 Triple phosphate crystals LM Ql (Urine sed) 3+ /hpf [facility] Mucus LM Ql (Urine sed)Order ed By: Lavon Vicente on 10-01-2023 Mucus Ql (Urine sed) 0 SEEN /hpf [facility] Nitrite Test strip Ql (U)Ord ered By: Lavon Vicente on 10-01-2023 Nitrite Ql (U) Positive Negative [facility] No Panel InformationOrdered By: Lavon Vicente on 10-01-2023 0 SEEN /hpf 0-5 [facility] Protein Test strip Ql (U)Ord ered By: Lavon Vicente on 10-01-2023 Protein Ql (U) 30 mg/dl Negative [facility] Squamous epithelial cells de tection in urine sediment by light microscopyOrdered By: Lavon Vicente on 10-01-2023 Epithelial cells.squamous LM Ql (Urine sed) 0 SEEN /hpf 5-10 [facility] Urine blood detectionOrdered By: Lavon Vicente on 10-01-2023 RBC Ql (U) Negative Negative [facility] Urine clarityOrdered By: Estefany Vicente on 10-01-2023 Clarity (U) Cloudy Clear [facility] Urine color determinationOrd ered By: Lavon Vicente on 10-01-2023 Color (U) Yellow Yellow [facility] Urine glucose detectionOrder ed By: Lavon Vicente on 10-01-2023 Glucose Ql (U) Normal mg/dl Normal [facility] Urine leukocyte esterase det ection by dipstickOrdered By: Lavon Vicente on 10-01-2023 Leukocyte esterase Test strip Ql (U) 500 /ul Negative [facility] Urine pHOrdered By: Lavon alcala on 10-01-2023 pH (U) 9.0 [pH] 5.0 - 8.0 [facility] Urine sediment bacteria coun t by microscopy (number/high power field)Ordered By: Lavon Vicente on 10-01-2023 Bacteria LM.HPF (Urine sed) [#/Area] 0 /[HPF] None Seen [facility] Urine specific gravity measu rementOrdered By: Lavon Vicente on 10-01-2023 Specific gravity (U) [Rel density] 1.015 1.002-1.030 [facility] Urine urobilinogen measureme ntOrdered By: Lavon Vicente on 10-01-2023 Urobilinogen Ql (U) Normal mg/dl Normal [facility] Basophil percentageOrdered B y: Lavon Vicente on 09-07-2023 Basophil percentage 9.5 g/dL 12.0-15.0 [facility] Basophil percentage 158 mg/dL 74-106 [facility] Basophil percentage 7.0 g/dL 6.4-8.2 [facility] Basophil percentage 0.20 mg/dL 0.20-1.00 [facility] Basophil percentage 138 mmol/L 136-145 [facility] Basophil percentage 3.6 mmol/L 3.5-5.1 [facility] Basophil percentage 101 mmol/L 98-107 [facility] Basophils (Bld) [#/Vol] 6.6 10*3/uL 4.4-11.0 [facility] Determination of erythrocyte mean corpuscular volume (MCV)Ordered By: Lavon Vicente on 09-07-2023 MCV (RBC) [Entitic vol] 84.1 fL 81-99 [facility] Erythrocyte distribution wid th ratioOrdered By: Lavon Vicente on 09-07-2023 Erythrocyte distribution width (RBC) [Ratio] 15.8 % 11.6-14.6 [facility] Erythrocyte distribution wid th standard deviationOrdered By: Lavon Vicente on 09-07-2023 Erythrocyte distribution width (RBC) [Entitic vol] 47.5 fL 35.1-43.9 [facility] Hematocrit Auto (Bld) [Volum e fraction]Ordered By: Lavon Vicente on 09-07-2023 Hematocrit (Bld) [Volume fraction] 31.3 % 37-47 [facility] No Panel InformationOrdered By: Lavon Vicente on 09-07-2023 25.5 pg 27.0-32.0 [facility] 30.4 g/dL 32-36 [facility] 267 K/mm3 150-450 [facility] 9.5 fl 6.2-12.0 [facility] 219 mL/min >60 [facility] 265 mL/min >60 [facility] 38.6 RATIO 10-20 [facility] 4.3 g/dL 2.2-4.2 [facility] 0.6 RATIO 0.9-2.4 [facility] 82 U/L 45-117 [facility] 21 U/L 13-56 [facility] 29.0 mmol/L 21.0-32.0 [facility] 39.8 ng/mL [facility] RBC Auto (Bld) [#/Vol]Ordere d By: Lavon Vicente on 09-07-2023 RBC (Bld) [#/Vol] 3.72 10*6/uL 4.2-5.4 [facility] Serum or plasma calcium miguel angel urement (mass/volume)Ordered By: Lavon Vicente on 09-07-2023 Calcium [Mass/Vol] 8.6 mg/dL 8.5-10.1 [facility] Serum or plasma creatinine m easurement (mass/volume)Ordered By: Lavon Vicente on 09-07-2023 Creatinine [Mass/Vol] 0.34 mg/dL 0.55-1.02 [facility] Serum or plasma thyroid stim ulating hormone (TSH) measurement (units/volume)Ordered By: Lavon Vicente on 09-07-2023 TSH Qn 4.04 uIU/mL 0.358-3.74 [facility] Serum or plasma urea nitroge n measurement (mass/volume)Ordered By: Lavon Vicente on 09-07-2023 Urea nitrogen [Mass/Vol] 13 mg/dL 7-18 [facility] Thin prep Papanicolaou smear with manual screeningOrdered By: Lavon Vicente on 09-07-2023 Thin prep Papanicolaou smear with manual screening 2.7 g/dL 3.2-5.0 [facility] Thin prep Papanicolaou smear with manual screening 14 U/L 15-37 [facility] Thin prep Papanicolaou smear with manual screening 8 5-15 [facility] Thin prep Papanicolaou smear with manual screening 1.11 ng/dL 0.76-1.46 [facility] Bacteria identified Cx Nom ( U)Ordered By: Lavon Vicente on 09-06-2023 Culture, urine Proteus mirabilis [facility] Culture, urine Meth. resistant Stap h. aureus [facility] Bilirubin Test strip Ql (U)O rdered By: Lavon Vicente on 09-06-2023 Bilirubin Ql (U) Negative Negative [facility] Ketones Test strip Ql (U)Ord ered By: Lavon Vicente on 09-06-2023 Ketones Ql (U) Negative Negative [facility] Nitrite Test strip Ql (U)Ord ered By: Lavon Vicente on 09-06-2023 Nitrite Ql (U) Positive Negative [facility] Protein Test strip Ql (U)Ord ered By: Lavon Vicente on 09-06-2023 Protein Ql (U) Negative Negative [facility] Urine blood detectionOrdered By: Lavon Vicente on 09-06-2023 RBC Ql (U) 25 /ul Negative [facility] Urine clarityOrdered By: Estefany Vicente on 09-06-2023 Clarity (U) Clear Clear [facility] Urine color determinationOrd ered By: Lavon Vicente on 09-06-2023 Color (U) Yellow Yellow [facility] Urine glucose detectionOrder ed By: Lavon Vicente on 09-06-2023 Glucose Ql (U) Normal mg/dl Normal [facility] Urine leukocyte esterase det ection by dipstickOrdered By: Lavon Vicente on 09-06-2023 Leukocyte esterase Test strip Ql (U) 500 /ul Negative [facility] Urine pHOrdered By: Lavon alcala on 09-06-2023 pH (U) 8.0 [pH] 5.0 - 8.0 [facility] Urine specific gravity measu rementOrdered By: Lavon Vicente on 09-06-2023 Specific gravity (U) [Rel density] 1.010 1.002-1.030 [facility] Urine urobilinogen measureme ntOrdered By: Lavon Vicente on 09-06-2023 Urobilinogen Ql (U) Normal mg/dl Normal [facility] Basophil percentageOrdered B y: Lavon Vicente on 08-11-2023 Basophil percentage 10.9 g/dL 12.0-15.0 [facility] Basophil percentage 121 mg/dL 74-106 [facility] Basophil percentage 8.4 g/dL 6.4-8.2 [facility] Basophil percentage 0.30 mg/dL 0.20-1.00 [facility] Basophil percentage 136 mmol/L 136-145 [facility] Basophil percentage 3.8 mmol/L 3.5-5.1 [facility] Basophil percentage 102 mmol/L 98-107 [facility] Basophils (Bld) [#/Vol] 7.8 10*3/uL 4.4-11.0 [facility] Determination of erythrocyte mean corpuscular volume (MCV)Ordered By: Lavon Vicente on 08-11-2023 MCV (RBC) [Entitic vol] 83.8 fL 81-99 [facility] Erythrocyte distribution wid th ratioOrdered By: Lavon Vicente on 08-11-2023 Erythrocyte distribution width (RBC) [Ratio] 15.6 % 11.6-14.6 [facility] Erythrocyte distribution wid th standard deviationOrdered By: Lavon Vicente on 08-11-2023 Erythrocyte distribution width (RBC) [Entitic vol] 47.7 fL 35.1-43.9 [facility] Hematocrit Auto (Bld) [Volum e fraction]Ordered By: Lavon Vicente on 08-11-2023 Hematocrit (Bld) [Volume fraction] 36.1 % 37-47 [facility] No Panel InformationOrdered By: Lavon Vicente on 08-11-2023 25.3 pg 27.0-32.0 [facility] 30.2 g/dL 32-36 [facility] 323 K/mm3 150-450 [facility] 9.4 fl 6.2-12.0 [facility] 175 mL/min >60 [facility] 212 mL/min >60 [facility] 39.0 RATIO 10-20 [facility] 5.4 g/dL 2.2-4.2 [facility] 0.6 RATIO 0.9-2.4 [facility] 98 U/L 45-117 [facility] 29 U/L 13-56 [facility] 27.0 mmol/L 21.0-32.0 [facility] RBC Auto (Bld) [#/Vol]Ordere d By: Lavon Vicente on 08-11-2023 RBC (Bld) [#/Vol] 4.31 10*6/uL 4.2-5.4 [facility] Serum or plasma calcium miguel angel urement (mass/volume)Ordered By: Lavon Vicente on 08-11-2023 Calcium [Mass/Vol] 9.6 mg/dL 8.5-10.1 [facility] Serum or plasma creatinine m easurement (mass/volume)Ordered By: Lavon Vicente on 08-11-2023 Creatinine [Mass/Vol] 0.41 mg/dL 0.55-1.02 [facility] Serum or plasma urea nitroge n measurement (mass/volume)Ordered By: Lavon Vicente on 08-11-2023 Urea nitrogen [Mass/Vol] 16 mg/dL 7-18 [facility] Thin prep Papanicolaou smear with manual screeningOrdered By: Lavon Vicente on 08-11-2023 Thin prep Papanicolaou smear with manual screening 3.0 g/dL 3.2-5.0 [facility] Thin prep Papanicolaou smear with manual screening 24 U/L 15-37 [facility] Thin prep Papanicolaou smear with manual screening 7 5-15 [facility] Basophil percentageOrdered B y: Lavon Vicente on 07-28-2023 Basophil percentage 10.1 g/dL 12.0-15.0 [facility] Basophil percentage 124 mg/dL 74-106 [facility] Basophil percentage 7.6 g/dL 6.4-8.2 [facility] Basophil percentage 0.20 mg/dL 0.20-1.00 [facility] Basophil percentage 140 mmol/L 136-145 [facility] Basophil percentage 3.7 mmol/L 3.5-5.1 [facility] Basophil percentage 104 mmol/L 98-107 [facility] Basophils (Bld) [#/Vol] 7.4 10*3/uL 4.4-11.0 [facility] Determination of erythrocyte mean corpuscular volume (MCV)Ordered By: Lavon Vicente on 07-28-2023 MCV (RBC) [Entitic vol] 84.0 fL 81-99 [facility] Erythrocyte distribution wid th ratioOrdered By: Lavon Vicente on 07-28-2023 Erythrocyte distribution width (RBC) [Ratio] 15.7 % 11.6-14.6 [facility] Erythrocyte distribution wid th standard deviationOrdered By: Lavon Vicente on 07-28-2023 Erythrocyte distribution width (RBC) [Entitic vol] 47.8 fL 35.1-43.9 [facility] Hematocrit Auto (Bld) [Volum e fraction]Ordered By: Lavon Vicente on 07-28-2023 Hematocrit (Bld) [Volume fraction] 34.1 % 37-47 [facility] No Panel InformationOrdered By: Lavon Vicente on 07-28-2023 24.9 pg 27.0-32.0 [facility] 29.6 g/dL 32-36 [facility] 362 K/mm3 150-450 [facility] 9.7 fl 6.2-12.0 [facility] 188 mL/min >60 [facility] 227 mL/min >60 [facility] 33.7 RATIO 10-20 [facility] 4.8 g/dL 2.2-4.2 [facility] 0.6 RATIO 0.9-2.4 [facility] 90 U/L 45-117 [facility] 31 U/L 13-56 [facility] 31.0 mmol/L 21.0-32.0 [facility] RBC Auto (Bld) [#/Vol]Ordere d By: Lavon Vicente on 07-28-2023 RBC (Bld) [#/Vol] 4.06 10*6/uL 4.2-5.4 [facility] Serum or plasma calcium miguel angel urement (mass/volume)Ordered By: Lavon Vicente on 07-28-2023 Calcium [Mass/Vol] 8.8 mg/dL 8.5-10.1 [facility] Serum or plasma creatinine m easurement (mass/volume)Ordered By: Lavon Vicente on 07-28-2023 Creatinine [Mass/Vol] 0.39 mg/dL 0.55-1.02 [facility] Serum or plasma urea nitroge n measurement (mass/volume)Ordered By: Lavon Vicente on 07-28-2023 Urea nitrogen [Mass/Vol] 13 mg/dL 7-18 [facility] Thin prep Papanicolaou smear with manual screeningOrdered By: Lavon Vicente on 07-28-2023 Thin prep Papanicolaou smear with manual screening 2.8 g/dL 3.2-5.0 [facility] Thin prep Papanicolaou smear with manual screening 19 U/L 15-37 [facility] Thin prep Papanicolaou smear with manual screening 5 5-15 [facility] Basophil percentageOrdered B y: Lavon Vicente on 07-14-2023 Basophil percentage 10.0 g/dL 12.0-15.0 [facility] Basophil percentage 102 mg/dL 74-106 [facility] Basophil percentage 6.8 g/dL 6.4-8.2 [facility] Basophil percentage 0.20 mg/dL 0.20-1.00 [facility] Basophil percentage 142 mmol/L 136-145 [facility] Basophil percentage 3.8 mmol/L 3.5-5.1 [facility] Basophil percentage 104 mmol/L 98-107 [facility] Basophils (Bld) [#/Vol] 7.3 10*3/uL 4.4-11.0 [facility] Determination of erythrocyte mean corpuscular volume (MCV)Ordered By: Lavon Vicente on 07-14-2023 MCV (RBC) [Entitic vol] 86.5 fL 81-99 [facility] Erythrocyte distribution wid th ratioOrdered By: Lavon Vicente on 07-14-2023 Erythrocyte distribution width (RBC) [Ratio] 16.2 % 11.6-14.6 [facility] Erythrocyte distribution wid th standard deviationOrdered By: Lavon Vicente on 07-14-2023 Erythrocyte distribution width (RBC) [Entitic vol] 50.8 fL 35.1-43.9 [facility] Hematocrit Auto (Bld) [Volum e fraction]Ordered By: Lavon Vicente on 07-14-2023 Hematocrit (Bld) [Volume fraction] 33.9 % 37-47 [facility] No Panel InformationOrdered By: Lavon Vicente on 07-14-2023 25.5 pg 27.0-32.0 [facility] 29.5 g/dL 32-36 [facility] 304 K/mm3 150-450 [facility] 258 mL/min >60 [facility] 312 mL/min >60 [facility] 47.8 RATIO 10-20 [facility] 4.0 g/dL 2.2-4.2 [facility] 0.7 RATIO 0.9-2.4 [facility] 70 U/L 45-117 [facility] 32 U/L 13-56 [facility] 30.0 mmol/L 21.0-32.0 [facility] 37.3 ng/mL [facility] Platelet mean volume Ankur-Ec ker (Bld) [Entitic vol]Ordered By: Lavon Vicente on 07-14-2023 Platelet mean volume (Bld) [Entitic vol] 10.0 fL 6.2-12.0 [facility] RBC Auto (Bld) [#/Vol]Ordere d By: Lavon Vicente on 07-14-2023 RBC (Bld) [#/Vol] 3.92 10*6/uL 4.2-5.4 [facility] Serum or plasma calcium miguel angel urement (mass/volume)Ordered By: Lavon Vicente on 07-14-2023 Calcium [Mass/Vol] 8.6 mg/dL 8.5-10.1 [facility] Serum or plasma creatinine m easurement (mass/volume)Ordered By: Lavon Vicente on 07-14-2023 Creatinine [Mass/Vol] 0.29 mg/dL 0.55-1.02 [facility] Serum or plasma thyroid stim ulating hormone (TSH) measurement (units/volume)Ordered By: Lavon Vicente on 07-14-2023 TSH Qn 1.99 uIU/mL 0.358-3.74 [facility] Serum or plasma urea nitroge n measurement (mass/volume)Ordered By: Lavon Vicente on 07-14-2023 Urea nitrogen [Mass/Vol] 14 mg/dL 7-18 [facility] Thin prep Papanicolaou smear with manual screeningOrdered By: Lavon Vicente on 07-14-2023 Thin prep Papanicolaou smear with manual screening 2.8 g/dL 3.2-5.0 [facility] Thin prep Papanicolaou smear with manual screening 23 U/L 15-37 [facility] Thin prep Papanicolaou smear with manual screening 8 5-15 [facility] Thin prep Papanicolaou smear with manual screening 1.48 ng/dL 0.76-1.46 [facility] Whole blood hemoglobin A1c/t otal hemoglobin ratio (mass fraction)Ordered By: Lavon Vicente on 07-14-2023 HbA1c (Bld) [Mass fraction] 5.6 % 3.8-5.6 [facility] Absolute lymphocyte countOrd ered By: Shari Pastor on 07-08-2023 Lymphocytes Auto (Unsp spec) [#/Vol] 1.94 10*3/uL 0.83-4.51 [facility] Automated lymphocyte count a s percentage of total leukocytesOrdered By: Shari Pastor on 07-08-2023 Lymphocytes/100 WBC Auto (Unsp spec) 34.4 % 19-41 [facility] Basophil percentageOrdered B y: Shari Pastor on 07-08-2023 Basophil percentage 11.6 g/dL 12.0-15.0 [facility] Basophil percentage 111 mg/dL 74-106 [facility] Basophil percentage 8.1 g/dL 6.4-8.2 [facility] Basophil percentage 0.30 mg/dL 0.20-1.00 [facility] Basophil percentage 134 mmol/L 136-145 [facility] Basophil percentage 3.4 mmol/L 3.5-5.1 [facility] Basophil percentage 103 mmol/L 98-107 [facility] Basophils (Bld) [#/Vol] 5.6 10*3/uL 4.4-11.0 [facility] Basophils (Bld) [#/Vol] 3.2 10*3/uL 2.0-7.7 [facility] Basophils/100 WBC (Bld) 56.9 % 47-70 [facility] Basophils/100 WBC (Bld) 7.6 % 0-10 [facility] Basophils/100 WBC (Bld) 0.0 % 0-5 [facility] Basophils/100 WBC (Bld) 0.4 % 0-1 [facility] Determination of erythrocyte mean corpuscular volume (MCV)Ordered By: Shari Pastor on 07-08-2023 MCV (RBC) [Entitic vol] 83.5 fL 81-99 [facility] Erythrocyte distribution wid th ratioOrdered By: Shari Pastor on 07-08-2023 Erythrocyte distribution width (RBC) [Ratio] 15.9 % 11.6-14.6 [facility] Erythrocyte distribution wid th standard deviationOrdered By: Shari Pastor on 07-08-2023 Erythrocyte distribution width (RBC) [Entitic vol] 48.1 fL 35.1-43.9 [facility] Hematocrit Auto (Bld) [Volum e fraction]Ordered By: Shari Pastor on 07-08-2023 Hematocrit (Bld) [Volume fraction] 38.0 % 37-47 [facility] Immature granulocytes/100 WB C Auto (Bld)Ordered By: Shari Pastor on 07-08-2023 Immature granulocytes/100 WBC (Bld) 0.700 % 0.0-0.9 [facility] No Panel InformationOrdered By: Shari Pastor on 07-08-2023 25.5 pg 27.0-32.0 [facility] 30.5 g/dL 32-36 [facility] 370 K/mm3 150-450 [facility] 0 % 0-5 [facility] 274 mL/min >60 [facility] 331 mL/min >60 [facility] 292.59 ml/min [facility] 32.4 RATIO 10-20 [facility] 4.9 g/dL 2.2-4.2 [facility] 0.7 RATIO 0.9-2.4 [facility] 72 U/L 45-117 [facility] 64 U/L 13-56 [facility] 28.0 mmol/L 21.0-32.0 [facility] Platelet mean volume Ankur-Ec ker (Bld) [Entitic vol]Ordered By: Shari Pastor on 07-08-2023 Platelet mean volume (Bld) [Entitic vol] 9.2 fL 6.2-12.0 [facility] RBC Auto (Bld) [#/Vol]Ordere d By: Shari Pastor on 07-08-2023 RBC (Bld) [#/Vol] 4.55 10*6/uL 4.2-5.4 [facility] Serum or plasma calcium miguel angel urement (mass/volume)Ordered By: Shari Pastor on 07-08-2023 Calcium [Mass/Vol] 8.6 mg/dL 8.5-10.1 [facility] Serum or plasma creatinine m easurement (mass/volume)Ordered By: Shari Pastor on 07-08-2023 Creatinine [Mass/Vol] 0.28 mg/dL 0.55-1.02 [facility] Serum or plasma urea nitroge n measurement (mass/volume)Ordered By: Shari Pastor on 07-08-2023 Urea nitrogen [Mass/Vol] 9 mg/dL 7-18 [facility] Thin prep Papanicolaou smear with manual screeningOrdered By: Shari Pastor on 07-08-2023 Thin prep Papanicolaou smear with manual screening 3.2 g/dL 3.2-5.0 [facility] Thin prep Papanicolaou smear with manual screening 42 U/L 15-37 [facility] Thin prep Papanicolaou smear with manual screening 3 5-15 [facility] Assessment of wrist artery p atency prior to arterial punctureOrdered By: Renzo Del Angel on 07-03-2023 Arterial patency Wrist artery --pre arterial puncture Positive [facility] Bacteria identified Cx Nom ( U)Ordered By: Renzo Del Angel on 07-03-2023 Culture, urine Pseudomonas aeruginosa [facility] Culture, urine Enterococcus faecalis [facility] Culture, urine Proteus mirabilis [facility] Culture, urine Pseudomonas aeruginosa [facility] Culture, urine Enterococcus faecalis [facility] Culture, urine Proteus mirabilis [facility] Base excessOrdered By: Renzo Del Angel on 07-03-2023 Base excess Calc (BldV) [Moles/Vol] 1 mmol/L -2-2 [facility] Base excess Calc (BldV) [Moles/Vol] -1 mmol/L -1.0-3.5 [facility] Basophil percentageOrdered B y: Renzo Del Angel on 07-03-2023 Basophil percentage 25 mmol/L [facility] Basophils/100 WBC (Bld) 90 % 95-99 [facility] Basophil percentageOrdered B y: Estevan Aguila on 07-03-2023 Basophil percentage 1.2 mmol/L 0.4-2.0 [facility] Blood lymphocytes/100 leukoc ytesOrdered By: Shari Pastor on 07-03-2023 Lymphocytes/100 WBC (Bld) 13 % 19-41 [facility] Blood monocytes/100 leukocyt esOrdered By: Shari Pastor on 07-03-2023 Monocytes/100 WBC (Bld) 4 % 0-10 [facility] Blood platelet adequacy dete ction by light microscopyOrdered By: Shari Pastor on 07-03-2023 Platelets LM Ql (Bld) ADEQUATE ADEQ [facility] Blood segmented neutrophils/ 100 leukocytesOrdered By: Shari Pastor on 07-03-2023 Segmented neutrophils/100 WBC (Bld) 83 % 47-70 [facility] CO2 (BldV) [Moles/Vol]Ordere d By: Renzo Del Angel on 07-03-2023 CO2 [Moles/Vol] 24 mmol/L 23-33 [facility] Measurement, pHOrdered By: Judd Del Angel on 07-03-2023 pH (Unsp spec) 7.47 [pH] 7.35-7.45 [facility] No Panel InformationOrdered By: Renzo Del Angel on 07-03-2023 ART [facility] R Radial [facility] Not entered [facility] Room Air [facility] 21.0 [facility] 24.3 mmol/L - [facility] PCO2 venousOrdered By: Renzo Del Angel on 07-03-2023 CO2 (BldV) [Partial pressure] 29.7 mm[Hg] 41-51 [facility] PO2 venousOrdered By: Renzo Del Angel on 07-03-2023 Oxygen (BldV) [Partial pressure] 90 mm[Hg] 25-40 [facility] Partial pressure of carbon d ioxide measurementOrdered By: Renzo Del Angel on 07-03-2023 CO2 (Dial fld) [Partial pressure] 33.5 mmHg 35-45 [facility] Partial pressure of oxygen m easurementOrdered By: Renzo Del Angel on 07-03-2023 Oxygen [Partial pressure] in Capillary blood by Transcutaneous O2 monitor 54 mmHG 75-100 [facility] RBC morphologyOrdered By: Cristi Pastor on 07-03-2023 RBC morphology finding Nom (Bld) NORM C+C NORMAL NORM C&C [facility] Total cell countOrdered By: Shari Pastor on 07-03-2023 Cells counted Molgen (Bld/Tiss) [#] 100 MANUAL DIFF [facility] Venous blood bicarbonate shantel surementOrdered By: Renzo Del Angel on 07-03-2023 HCO3 (BldCoV) [Moles/Vol] 23 mmol/L - [facility] Venous blood oxygen saturati on (pure mass fraction)Ordered By: Renzo Del Angel on 07-03-2023 SaO2% (BldV) [Pure mass fraction] 98 % 50-70 [facility] Venous blood pH measurementO rdered By: Renzo Del Angel on 07-03-2023 pH (BldV) 7.49 [pH] 7.32-7.42 [facility] Absolute lymphocyte countOrd ered By: Estevan Aguila on 07-02-2023 Lymphocytes Auto (Unsp spec) [#/Vol] 1.49 10*3/uL 0.83-4.51 [facility] Activated partial thrombopla stin time (aPTT) in platelet poor plasma by coagulation aOrdered By: Estevan Aguila on 07-02-2023 aPTT Coag (PPP) [Time] 29.3 s 24.1-36.2 [facility] Amorphous sediment detection in urine sediment by light microscopyOrdered By: Estevan Aguila on 07-02-2023 Amorphous sediment LM Ql (Urine sed) 1+ [facility] Automated lymphocyte count a s percentage of total leukocytesOrdered By: Estevan Aguila on 07-02-2023 Lymphocytes/100 WBC Auto (Unsp spec) 8.7 % 19-41 [facility] Basophil percentageOrdered B y: Estevan Aguila on 07-02-2023 Basophils/100 WBC (Bld) 0.3 % 0-1 [facility] Eosinophils/100 WBC (Bld) 0.3 % 0-5 [facility] Hemoglobin (Bld) [Mass/Vol] 11.9 g/dL 12.0-15.0 [facility] Monocytes/100 WBC (Bld) 4.0 % 0-10 [facility] Neutrophils (Bld) [#/Vol] 14.7 10*3/uL 2.0-7.7 [facility] Neutrophils/100 WBC (Bld) 86.2 % 47-70 [facility] WBC (Bld) [#/Vol] 17.1 10*3/uL 4.4-11.0 [facility] Basophil percentage 50-100 SEEN /hpf 0-5 [facility] Bilirubin [Mass/Vol] 0.50 mg/dL 0.20-1.00 [facility] Comment on above: For patients on eltr ombopag therapy, use of Dimension [place] TBIL is not recommended. Chloride [Moles/Vol] 101 mmol/L 98-107 [facility] Glucose [Mass/Vol] 162 mg/dL 74-106 [facility] Comment on above: Fasting Glucose resu lt greater than or equal to 126 mg/dL suggests DIABETES MELLITUS per A.D.A. criteria. Lactate [Moles/Vol] 5.7 mmol/L 0.4-2.0 [facility] Comment on above: Critical Result(s) C alled at: 23:28:10 07/02/2023 by: Boo Nieves. TO BLANKA KIRKLAND (ED). Results read back by same. Potassium [Moles/Vol] 3.7 mmol/L 3.5-5.1 [facility] Protein [Mass/Vol] 9.2 g/dL 6.4-8.2 [facility] Sodium [Moles/Vol] 139 mmol/L 136-145 [facility] Bilirubin Test strip Ql (U)O rdered By: Estevan Aguila on 07-02-2023 Bilirubin Ql (U) 1 mg/dL Negative [facility] Comment on above: COLOR OF URINE MAY A FFECT DIPSTICK RESULTS. Determination of erythrocyte mean corpuscular volume (MCV)Ordered By: Estevan Aguila on 07-02-2023 MCV (RBC) [Entitic vol] 82.8 fL 81-99 [facility] Erythrocyte distribution wid th ratioOrdered By: Estevan Aguila on 07-02-2023 Erythrocyte distribution width (RBC) [Ratio] 15.8 % 11.6-14.6 [facility] Erythrocyte distribution wid th standard deviationOrdered By: Estevan Aguila on 07-02-2023 Erythrocyte distribution width (RBC) [Entitic vol] 47.5 fL 35.1-43.9 [facility] Hematocrit Auto (Bld) [Volum e fraction]Ordered By: Estevan Aguila on 07-02-2023 Hematocrit (Bld) [Volume fraction] 38.5 % 37-47 [facility] Immature granulocytes/100 WB C Auto (Bld)Ordered By: Estevan Aguila on 07-02-2023 Immature granulocytes/100 WBC (Bld) 0.500 % 0.0-0.9 [facility] Comment on above: IG% - Immature Granu locytes (promyelocytes, myelocytes and metamyelocytes) > 1% indicates that a LEFT SHIFT is Present. International normalized rat io (INR) calculationOrdered By: Estevan Aguila on 07-02-2023 INR Coag (PPP) [Relative time] 1.1 {INR} [facility] Ketones Test strip Ql (U)Ord ered By: Estevan Aguila on 07-02-2023 Ketones Ql (U) 150 mg/dl Negative [facility] Comment on above: CRITICAL VALUE *HCRI TICAL VALUE VERIFIED. CALLED TO [id number] Martha Mary Sangita.RESULTS READ BACK BY SAME . Laboratory - Chemistry and C hemistry - challengeOrdered By: Estevan Aguila on 07-02-2023 Albumin/Globulin [Mass ratio] 0.6 {ratio} 0.9-2.4 [facility] ALP [Catalytic activity/Vol] 96 U/L 45-117 [facility] ALT [Catalytic activity/Vol] 40 U/L 13-56 [facility] CK [Catalytic activity/Vol] 137 U/L 26-192 [facility] CO2 [Moles/Vol] 27.0 mmol/L 21.0-32.0 [facility] Globulin (S) [Mass/Vol] 5.6 g/dL 2.2-4.2 [facility] Urea nitrogen/Creatinine [Mass ratio] 18.0 mg/mg 10-20 [facility] Laboratory - CoagulationOrde red By: Estevan Aguila on 07-02-2023 PT Coag (PPP) [Time] 14.2 s 11.7-14.9 [facility] Laboratory - Hematology and Cell countsOrdered By: Estevan Aguila on 07-02-2023 MCH (RBC) [Entitic mass] 25.6 pg 27.0-32.0 [facility] MCHC (RBC) [Mass/Vol] 30.9 g/dL 32-36 [facility] Nucleated RBC/100 WBC (Bld) [Ratio] 0 % 0-5 [facility] Platelets (Bld) [#/Vol] 408 10*3/uL 150-450 [facility] Laboratory - Microbiology an d Antimicrobial susceptibilityOrdered By: Estevan Aguila on 07-02-2023 SARS-CoV-2 (COVID-19) RNA NBA+probe Ql (Unsp spec) [facility] Mucus LM Ql (Urine sed)Order ed By: Estevan Aguila on 07-02-2023 Mucus Ql (Urine sed) 0 SEEN /hpf [facility] Nitrite Test strip Ql (U)Ord ered By: Estevan Aguila on 07-02-2023 Nitrite Ql (U) Positive Negative [facility] No Panel InformationOrdered By: Estevan Aguila on 07-02-2023 14.2 SECONDS 11.7-14.9 [facility] No growth in 5 days. [facility] Urine RBC 10-25 SEEN /hpf 0-5 [facility] 10-25 SEEN /hpf 0-5 [facility] Estimated Creatinine Clearance Calc 149.60 ml/min [facility] Estimated GFR (MDRD) Amer 149 mL/min >60 [facility] Comment on above: GFR Calc Estimated GFR (MDRD) Non-Af Amer 123 mL/min >60 [facility] Comment on above: Non- GFR Calc Troponin I High Sensitivity 35 pg/mL 3.0-54.0 [facility] Comment on above: Please Note: New [place] t Units and Gender Specific Reference Ranges. For more information see Policy Stat Procedure [place] High Sensitivity Troponin (TNIH) and attachments. 137 U/L 26-192 [facility] 35 pg/mL 3.0-54.0 [facility] No growth in 5 days. [facility] Platelet mean volume Ankur-Ec ker (Bld) [Entitic vol]Ordered By: Estevan Aguila on 07-02-2023 Platelet mean volume (Bld) [Entitic vol] 9.3 fL 6.2-12.0 [facility] Protein Test strip Ql (U)Ord ered By: Estevan Aguila on 07-02-2023 Protein Ql (U) 500 mg/dl Negative [facility] RBC Auto (Bld) [#/Vol]Ordere d By: Estevan Aguila on 07-02-2023 RBC (Bld) [#/Vol] 4.65 10*6/uL 4.2-5.4 [facility] Serum or plasma calcium miguel angel urement (mass/volume)Ordered By: Estevan Aguila on 07-02-2023 Calcium [Mass/Vol] 9.6 mg/dL 8.5-10.1 [facility] Serum or plasma creatinine m easurement (mass/volume)Ordered By: Estevan Aguila on 07-02-2023 Creatinine [Mass/Vol] 0.56 mg/dL 0.55-1.02 [facility] Comment on above: The validity of the calculated GFR & GFRAA in patients over 70 years has not been determined. Clinical correlation is essential. Serum or plasma thyroid stim ulating hormone (TSH) measurement (units/volume)Ordered By: Francisco Pitts on 07-02-2023 TSH Qn 1.86 uIU/mL 0.358-3.74 [facility] Serum or plasma urea nitroge n measurement (mass/volume)Ordered By: Estevan Aguila on 07-02-2023 Urea nitrogen [Mass/Vol] 10 mg/dL 7-18 [facility] Squamous epithelial cells de tection in urine sediment by light microscopyOrdered By: Estevan Aguila on 07-02-2023 Epithelial cells.squamous LM Ql (Urine sed) 0-5 SEEN /hpf 5-10 [facility] Thin prep Papanicolaou smear with manual screeningOrdered By: Estevan Aguila on 07-02-2023 Thin prep Papanicolaou smear with manual screening 3.6 g/dL 3.2-5.0 [facility] Thin prep Papanicolaou smear with manual screening 25 U/L 15-37 [facility] Thin prep Papanicolaou smear with manual screening 11 5-15 [facility] Transitional cells detection in urine sediment by light microscopyOrdered By: Estevan Aguila on 07-02-2023 Transitional cells LM Ql (Urine sed) 0-5 SEEN /hpf 0-5 [facility] Urine blood detectionOrdered By: Estevan Aguila on 07-02-2023 RBC Ql (U) 250 /ul Negative [facility] Urine clarityOrdered By: Alejandro Aguila on 07-02-2023 Clarity (U) Turbid Clear [facility] Urine color determinationOrd ered By: Estevan Aguila on 07-02-2023 Color (U) Yellow Yellow [facility] Urine glucose detectionOrder ed By: Estevan Aguila on 07-02-2023 Glucose Ql (U) Normal mg/dl Normal [facility] Urine leukocyte esterase det ection by dipstickOrdered By: Estevan Aguila on 07-02-2023 Leukocyte esterase Test strip Ql (U) 500 /ul Negative [facility] Urine pHOrdered By: Estevan woods on 07-02-2023 pH (U) 7.0 [pH] 5.0 - 8.0 [facility] Urine sediment bacteria coun t by microscopy (number/high power field)Ordered By: Estevan Aguila on 07-02-2023 Bacteria LM.HPF (Urine sed) [#/Area] 3 /[HPF] None Seen [facility] Urine specific gravity measu rementOrdered By: Estevan Aguila on 07-02-2023 Specific gravity (U) [Rel density] 1.010 1.002-1.030 [facility] Urine urobilinogen measureme ntOrdered By: Estevan Aguila on 07-02-2023 Urobilinogen Ql (U) 1 mg/dl Normal [facility] CT ABDOMEN/PELVIS W/O CONTRA STon 07-01-2023 [...] 07/01/2023 1:15:25 PM Ordering Provider: LONI Martinez [facility] ([place]) Amorphous sediment detection in urine sediment by light microscopyOrdered By: Lavon Vicente on 03-09-2023 Amorphous sediment LM Ql (Urine sed) 1+ [facility] Basophil percentageOrdered B y: Lavon Vicente on 03-09-2023 Basophil percentage 10-25 SEEN /hpf 0-5 [facility] Bilirubin Test strip Ql (U)O rdered By: Lavon Vicente on 03-09-2023 Bilirubin Ql (U) Negative Negative [facility] Culture, urineOrdered By: Cristi Vicente on 03-09-2023 Bacteria identified Cx Nom (U) Pseudomonas aeruginosa [facility] Bacteria identified Cx Nom (U) Proteus mirabilis [facility] Bacteria identified Cx Nom (U) Vancomycin Resist. E. faecalis [facility] Ketones Test strip Ql (U)Ord ered By: Lavon Vicente on 03-09-2023 Ketones Ql (U) Negative Negative [facility] Magnesium ammonium phosphate crystal detectionOrdered By: Lavon Vicente on 03-09-2023 Triple phosphate crystals LM Ql (Urine sed) 1+ /hpf [facility] Mucus LM Ql (Urine sed)Order ed By: Lavon Vicente on 03-09-2023 Mucus Ql (Urine sed) 0 SEEN /hpf [facility] Nitrite Test strip Ql (U)Ord ered By: Lavon Vicente on 03-09-2023 Nitrite Ql (U) Positive Negative [facility] Protein Test strip Ql (U)Ord ered By: Lavon Vicente on 03-09-2023 Protein Ql (U) 30 mg/dl Negative [facility] Squamous epithelial cells de tection in urine sediment by light microscopyOrdered By: Lavon Vicente on 03-09-2023 Epithelial cells.squamous LM Ql (Urine sed) 5-10 SEEN /hpf 5-10 [facility] Urine blood detectionOrdered By: Lavon Vicente on 03-09-2023 RBC Ql (U) 10 /ul Negative [facility] RBC Ql (U) 0 SEEN /hpf 0-5 [facility] Urine clarityOrdered By: Estefany Vicente on 03-09-2023 Clarity (U) Cloudy Clear [facility] Urine color determinationOrd ered By: Lavon Vicente on 03-09-2023 Color (U) Yellow Yellow [facility] Urine glucose detectionOrder ed By: Lavon Vicente on 03-09-2023 Glucose Ql (U) Normal mg/dl Normal [facility] Urine leukocyte esterase det ection by dipstickOrdered By: Lavon Vicente on 03-09-2023 Leukocyte esterase Test strip Ql (U) 500 /ul Negative [facility] Urine pHOrdered By: Lavon alcala on 03-09-2023 pH (U) 7.0 [pH] 5.0 - 8.0 [facility] Urine sediment bacteria coun t by microscopy (number/high power field)Ordered By: Lavon Vicente on 03-09-2023 Bacteria LM.HPF (Urine sed) [#/Area] 1 /[HPF] None Seen [facility] Urine specific gravity measu rementOrdered By: Lavon Vicente on 03-09-2023 Specific gravity (U) [Rel density] 1.010 1.002-1.030 [facility] Urobilinogen Auto test strip Ql (U)Ordered By: Lavon Vicente on 03-09-2023 Urobilinogen Ql (U) Normal mg/dl Normal [facility] Throat specimen bacteria irma ntification by cultureOrdered By: Lavon Vicente on 02-26-2023 Bacteria identified Cx Nom (Throat) streptococcus isolated. [facility] Bacteria identified Cx Nom ( Wound)Ordered By: Lavon Vicente on 02-22-2023 Routine wound culture Meth. resistant St aph. aureus [facility] Routine wound culture Streptococcus group A [facility] Gram stain for investigation of transfusion reactionOrdered By: Lavon Vicente on 02-22-2023 Microscopic observation Gram stain Nom (Unsp spec) [facility] Basophil percentageOrdered B y: Lavon Vicente on 02-02-2023 Basophils (Bld) [#/Vol] 9.1 10*3/uL 4.4-11.0 [facility] Blood erythrocytes count (nu mber/volume)Ordered By: Lavon Vicente on 02-02-2023 RBC (Bld) [#/Vol] 4.01 10*6/uL 4.2-5.4 [facility] Blood hemoglobin measurement (mass/volume)Ordered By: Lavon Vicente on 02-02-2023 Hemoglobin (Bld) [Mass/Vol] 10.1 g/dL 12.0-15.0 [facility] Blood platelet mean volumeOr dered By: Lavon Vicente on 02-02-2023 Platelet mean volume (Bld) [Entitic vol] 9.4 fL 6.2-12.0 [facility] Determination of erythrocyte mean corpuscular volume (MCV)Ordered By: Lavon Vicente on 02-02-2023 MCV (RBC) [Entitic vol] 83.8 fL 81-99 [facility] Hematocrit Auto (Bld) [Volum e fraction]Ordered By: Lavon Vicente on 02-02-2023 Hematocrit (Bld) [Volume fraction] 33.6 % 37-47 [facility] MCHC Auto (RBC) [Mass/Vol]Or dered By: Lavon Vicente on 02-02-2023 MCHC (RBC) [Mass/Vol] 30.1 g/dL 32-36 [facility] No Panel InformationOrdered By: Lavon Vicente on 02-02-2023 25.2 pg 27.0-32.0 [facility] 16.0 % 11.6-14.6 [facility] 49.2 fl 35.1-43.9 [facility] Platelets bldOrdered By: Estefany Vicente on 02-02-2023 Platelets (Bld) [#/Vol] 346 10*3/uL 150-450 [facility] Basophil percentageOrdered B y: Lavon Vicente on 02-01-2023 Basophils (Bld) [#/Vol] 9.9 10*3/uL 4.4-11.0 [facility] Blood erythrocytes count (nu mber/volume)Ordered By: Lavon Vicente on 02-01-2023 RBC (Bld) [#/Vol] 4.33 10*6/uL 4.2-5.4 [facility] Blood hemoglobin measurement (mass/volume)Ordered By: Lavon Vicente on 02-01-2023 Hemoglobin (Bld) [Mass/Vol] 10.9 g/dL 12.0-15.0 [facility] Blood platelet mean volumeOr dered By: Lavon Vicente on 02-01-2023 Platelet mean volume (Bld) [Entitic vol] 9.4 fL 6.2-12.0 [facility] Determination of erythrocyte mean corpuscular volume (MCV)Ordered By: Lavon Vicente on 02-01-2023 MCV (RBC) [Entitic vol] 86.1 fL 81-99 [facility] Hematocrit Auto (Bld) [Volum e fraction]Ordered By: Lavon Vicente on 02-01-2023 Hematocrit (Bld) [Volume fraction] 37.3 % 37-47 [facility] MCHC Auto (RBC) [Mass/Vol]Or dered By: Lavon Vicente on 02-01-2023 MCHC (RBC) [Mass/Vol] 29.2 g/dL 32-36 [facility] No Panel InformationOrdered By: Lavon Vicente on 02-01-2023 25.2 pg 27.0-32.0 [facility] 16.2 % 11.6-14.6 [facility] 51.0 fl 35.1-43.9 [facility] Platelets bldOrdered By: Estefany Vicente on 02-01-2023 Platelets (Bld) [#/Vol] 359 10*3/uL 150-450 [facility] Absolute lymphocyte countOrd ered By: Christine Lee on 01-26-2023 Lymphocytes Auto (Unsp spec) [#/Vol] 3.16 10*3/uL 0.83-4.51 [facility] Basophil percentageOrdered B y: Christine Lee on 01-26-2023 Basophil percentage 112 mg/dL 74-106 [facility] Basophil percentage 7.7 g/dL 6.4-8.2 [facility] Basophil percentage 0.20 mg/dL 0.20-1.00 [facility] Basophil percentage 139 mmol/L 136-145 [facility] Basophil percentage 3.9 mmol/L 3.5-5.1 [facility] Basophil percentage 103 mmol/L 98-107 [facility] Basophils (Bld) [#/Vol] 9.0 10*3/uL 4.4-11.0 [facility] Basophils (Bld) [#/Vol] 4.8 10*3/uL 2.0-7.7 [facility] Basophils/100 WBC (Bld) 53.6 % 47-70 [facility] Basophils/100 WBC (Bld) 2.8 % 0-5 [facility] Basophils/100 WBC (Bld) 0.7 % 0-1 [facility] Blood erythrocytes count (nu mber/volume)Ordered By: Christine Lee on 01-26-2023 RBC (Bld) [#/Vol] 4.28 10*6/uL 4.2-5.4 [facility] Blood hemoglobin measurement (mass/volume)Ordered By: Christine Lee on 01-26-2023 Hemoglobin (Bld) [Mass/Vol] 11.0 g/dL 12.0-15.0 [facility] Blood lymphocytes/100 leukoc ytesOrdered By: Christine Lee on 01-26-2023 Lymphocytes/100 WBC (Bld) 35.3 % 19-41 [facility] Blood monocytes/100 leukocyt esOrdered By: Christine Lee on 01-26-2023 Monocytes/100 WBC (Bld) 7.0 % 0-10 [facility] Blood platelet mean volumeOr dered By: Christine Lee on 01-26-2023 Platelet mean volume (Bld) [Entitic vol] 8.9 fL 6.2-12.0 [facility] Determination of erythrocyte mean corpuscular volume (MCV)Ordered By: Christine Lee on 01-26-2023 MCV (RBC) [Entitic vol] 84.6 fL 81-99 [facility] Hematocrit Auto (Bld) [Volum e fraction]Ordered By: Christine Lee on 01-26-2023 Hematocrit (Bld) [Volume fraction] 36.2 % 37-47 [facility] MCHC Auto (RBC) [Mass/Vol]Or dered By: Christine Lee on 01-26-2023 MCHC (RBC) [Mass/Vol] 30.4 g/dL 32-36 [facility] No Panel InformationOrdered By: Christine Lee on 01-26-2023 25.7 pg 27.0-32.0 [facility] 16.4 % 11.6-14.6 [facility] 50.8 fl 35.1-43.9 [facility] 0.600 % 0.0-0.9 [facility] 0 % 0-5 [facility] 151 mL/min >60 [facility] 183 mL/min >60 [facility] 109.26 ml/min [facility] 23.6 RATIO 10-20 [facility] 4.9 g/dL 2.2-4.2 [facility] 95 U/L 45-117 [facility] 29 U/L 13-56 [facility] 32.0 mmol/L 21.0-32.0 [facility] Platelets bldOrdered By: Diya Lee on 01-26-2023 Platelets (Bld) [#/Vol] 370 10*3/uL 150-450 [facility] Serum or plasma albumin miguel angel urement (mass/volume)Ordered By: Christine Lee on 01-26-2023 Albumin [Mass/Vol] 2.8 g/dL 3.2-5.0 [facility] Serum or plasma albumin/glob ulin mass ratioOrdered By: Christine Lee on 01-26-2023 Albumin/Globulin [Mass ratio] 0.6 {ratio} 0.9-2.4 [facility] Serum or plasma calcium miguel angel urement (mass/volume)Ordered By: Christine Lee on 01-26-2023 Calcium [Mass/Vol] 8.8 mg/dL 8.5-10.1 [facility] Serum or plasma creatinine m easurement (mass/volume)Ordered By: Christine Lee on 01-26-2023 Creatinine [Mass/Vol] 0.47 mg/dL 0.55-1.02 [facility] Serum or plasma urea nitroge n measurement (mass/volume)Ordered By: Christine Lee on 01-26-2023 Urea nitrogen [Mass/Vol] 11 mg/dL 7-18 [facility] Thin prep Papanicolaou smear with manual screeningOrdered By: Christine Lee on 01-26-2023 Thin prep Papanicolaou smear with manual screening 21 U/L 15-37 [facility] Thin prep Papanicolaou smear with manual screening 4 5-15 [facility] Absolute lymphocyte countOrd ered By: Lavon Vicente on 01-21-2023 Lymphocytes Auto (Unsp spec) [#/Vol] 3.22 10*3/uL 0.83-4.51 [facility] Bacteria identified Cx Nom ( U)Ordered By: Lavon Vicente on 01-21-2023 Culture, urine Morganella morganii sp morgani [facility] Culture, urine Pseudomonas aeruginosa [facility] Basophil percentageOrdered B y: Lavon Vicente on 01-21-2023 Basophils (Bld) [#/Vol] 11.2 10*3/uL 4.4-11.0 [facility] Basophils (Bld) [#/Vol] 6.7 10*3/uL 2.0-7.7 [facility] Basophils/100 WBC (Bld) 59.9 % 47-70 [facility] Basophils/100 WBC (Bld) 3.3 % 0-5 [facility] Basophils/100 WBC (Bld) 0.5 % 0-1 [facility] Bilirubin Test strip Ql (U)O rdered By: Lavon Vicente on 01-21-2023 Bilirubin Ql (U) 6 mg/dL Negative [facility] Blood erythrocytes count (nu mber/volume)Ordered By: Lavon Vicente on 01-21-2023 RBC (Bld) [#/Vol] 4.40 10*6/uL 4.2-5.4 [facility] Blood hemoglobin measurement (mass/volume)Ordered By: Lavon Vicente on 01-21-2023 Hemoglobin (Bld) [Mass/Vol] 10.9 g/dL 12.0-15.0 [facility] Blood lymphocytes/100 leukoc ytesOrdered By: Lavon Vicente on 01-21-2023 Lymphocytes/100 WBC (Bld) 28.8 % 19-41 [facility] Blood monocytes/100 leukocyt esOrdered By: Lavon Vicente on 01-21-2023 Monocytes/100 WBC (Bld) 7.1 % 0-10 [facility] Blood platelet mean volumeOr dered By: Lavon Vicente on 01-21-2023 Platelet mean volume (Bld) [Entitic vol] 9.9 fL 6.2-12.0 [facility] Determination of erythrocyte mean corpuscular volume (MCV)Ordered By: Lavon Vicente on 01-21-2023 MCV (RBC) [Entitic vol] 85.7 fL 81-99 [facility] Hematocrit Auto (Bld) [Volum e fraction]Ordered By: Lavon Vicente on 01-21-2023 Hematocrit (Bld) [Volume fraction] 37.7 % 37-47 [facility] Ketones Test strip Ql (U)Ord ered By: Lavon Vicente on 01-21-2023 Ketones Ql (U) 5 mg/dl Negative [facility] MCHC Auto (RBC) [Mass/Vol]Or dered By: Lavon Vicente on 01-21-2023 MCHC (RBC) [Mass/Vol] 28.9 g/dL 32-36 [facility] Nitrite Test strip Ql (U)Ord ered By: Lavon Vicente on 01-21-2023 Nitrite Ql (U) Positive Negative [facility] No Panel InformationOrdered By: Lavon Vicente on 01-21-2023 24.8 pg 27.0-32.0 [facility] 17.1 % 11.6-14.6 [facility] 53.5 fl 35.1-43.9 [facility] 0.400 % 0.0-0.9 [facility] 0 % 0-5 [facility] Platelets bldOrdered By: Estefany Vicente on 01-21-2023 Platelets (Bld) [#/Vol] 352 10*3/uL 150-450 [facility] Protein Test strip Ql (U)Ord ered By: Lavon Vicente on 01-21-2023 Protein Ql (U) 500 mg/dl Negative [facility] Urine blood detectionOrdered By: Lavon Vicente on 01-21-2023 RBC Ql (U) 150 /ul Negative [facility] Urine clarityOrdered By: Estefany Vicente on 01-21-2023 Clarity (U) Cloudy Clear [facility] Urine color determinationOrd ered By: Lavon Vicente on 01-21-2023 Color (U) Brown Yellow [facility] Urine glucose detectionOrder ed By: Lavon Vicente on 01-21-2023 Glucose Ql (U) Normal mg/dl Normal [facility] Urine leukocyte esterase det ection by dipstickOrdered By: Lavon Vicente on 01-21-2023 Leukocyte esterase Test strip Ql (U) 100 /ul Negative [facility] Urine pHOrdered By: Lavon alcala on 01-21-2023 pH (U) 8.0 [pH] 5.0 - 8.0 [facility] Urine specific gravity measu rementOrdered By: Lavon Vicente on 01-21-2023 Specific gravity (U) [Rel density] 1.015 1.002-1.030 [facility] Urobilinogen Auto test strip Ql (U)Ordered By: Lavon Vicente on 01-21-2023 Urobilinogen Ql (U) 8 mg/dl Normal [facility] Absolute lymphocyte countOrd ered By: Dr. Pastor on 11-16-2022 Lymphocytes Auto (Unsp spec) [#/Vol] 1.85 10*3/uL 0.83-4.51 [facility] Bacteria identified Cx Nom ( U)Ordered By: Nancy Wilcox on 11-16-2022 Culture, urine Escherichia coli [facility] Culture, urine Vancomycin Resist. E . faecium [facility] Basophil percentageOrdered B y: Dr. Pastor on 11-16-2022 Basophil percentage 121 mg/dL 74-106 [facility] Basophil percentage 7.3 g/dL 6.4-8.2 [facility] Basophil percentage 0.50 mg/dL 0.20-1.00 [facility] Basophil percentage 135 mmol/L 136-145 [facility] Basophil percentage 3.1 mmol/L 3.5-5.1 [facility] Basophil percentage 100 mmol/L 98-107 [facility] Basophils (Bld) [#/Vol] 8.8 10*3/uL 4.4-11.0 [facility] Basophils (Bld) [#/Vol] 6.1 10*3/uL 2.0-7.7 [facility] Basophils/100 WBC (Bld) 70.0 % 47-70 [facility] Basophils/100 WBC (Bld) 1.9 % 0-5 [facility] Basophils/100 WBC (Bld) 0.3 % 0-1 [facility] Blood erythrocytes count (nu mber/volume)Ordered By: Dr. Pastor on 11-16-2022 RBC (Bld) [#/Vol] 4.72 10*6/uL 4.2-5.4 [facility] Blood hemoglobin measurement (mass/volume)Ordered By: Dr. Pastor on 11-16-2022 Hemoglobin (Bld) [Mass/Vol] 12.2 g/dL 12.0-15.0 [facility] Blood lymphocytes/100 leukoc ytesOrdered By: Dr. Pastor on 11-16-2022 Lymphocytes/100 WBC (Bld) 21.1 % 19-41 [facility] Blood monocytes/100 leukocyt esOrdered By: Dr. Pastor on 11-16-2022 Monocytes/100 WBC (Bld) 6.4 % 0-10 [facility] Blood platelet mean volumeOr dered By: Dr. Pastor on 11-16-2022 Platelet mean volume (Bld) [Entitic vol] 9.5 fL 6.2-12.0 [facility] Determination of erythrocyte mean corpuscular volume (MCV)Ordered By: Dr. Pastor on 11-16-2022 MCV (RBC) [Entitic vol] 82.8 fL 81-99 [facility] Hematocrit Auto (Bld) [Volum e fraction]Ordered By: Dr. Pastor on 11-16-2022 Hematocrit (Bld) [Volume fraction] 39.1 % 37-47 [facility] MCHC Auto (RBC) [Mass/Vol]Or dered By: Dr. Pastor on 11-16-2022 MCHC (RBC) [Mass/Vol] 31.2 g/dL 32-36 [facility] No Panel InformationOrdered By: Dr. Pastor on 11-16-2022 25.8 pg 27.0-32.0 [facility] 15.9 % 11.6-14.6 [facility] 48.6 fl 35.1-43.9 [facility] 0.300 % 0.0-0.9 [facility] 0 % 0-5 [facility] 193 mL/min >60 [facility] 233 mL/min >60 [facility] 136.62 ml/min [facility] 42.3 RATIO 10-20 [facility] 4.6 g/dL 2.2-4.2 [facility] 90 U/L 45-117 [facility] 42 U/L 13-56 [facility] 26.0 mmol/L 21.0-32.0 [facility] Platelets bldOrdered By: Dr. Pastor on 11-16-2022 Platelets (Bld) [#/Vol] 260 10*3/uL 150-450 [facility] Serum or plasma albumin miguel angel urement (mass/volume)Ordered By: Dr. Pastor on 11-16-2022 Albumin [Mass/Vol] 2.7 g/dL 3.2-5.0 [facility] Serum or plasma albumin/glob ulin mass ratioOrdered By: Dr. Pastor on 11-16-2022 Albumin/Globulin [Mass ratio] 0.6 {ratio} 0.9-2.4 [facility] Serum or plasma calcium miguel angel urement (mass/volume)Ordered By: Dr. Pastor on 11-16-2022 Calcium [Mass/Vol] 8.8 mg/dL 8.5-10.1 [facility] Serum or plasma creatinine m easurement (mass/volume)Ordered By: Dr. Pastor on 11-16-2022 Creatinine [Mass/Vol] 0.38 mg/dL 0.55-1.02 [facility] Serum or plasma urea nitroge n measurement (mass/volume)Ordered By: Dr. Pastor on 11-16-2022 Urea nitrogen [Mass/Vol] 16 mg/dL 7-18 [facility] Thin prep Papanicolaou smear with manual screeningOrdered By: Dr. Pastor on 11-16-2022 Thin prep Papanicolaou smear with manual screening 25 U/L 15-37 [facility] Thin prep Papanicolaou smear with manual screening 9 5-15 [facility] Basophil percentageOrdered B y: Nancy Wilcox on 11-15-2022 Basophil percentage 1.1 mmol/L 0.4-2.0 [facility] No Panel InformationOrdered By: Dr. Howe on 11-15-2022 2.0 mg/dL 1.6-2.6 [facility] No Panel InformationOrdered By: Dr. River on 11-15-2022 No growth in 5 days. [facility] Absolute lymphocyte countOrd ered By: Nancy Wilcox on 11-14-2022 Lymphocytes Auto (Unsp spec) [#/Vol] 3.91 10*3/uL 0.83-4.51 [facility] Bacteria identified Cx Nom ( U)Ordered By: Nancy Wilcox on 11-14-2022 Culture, urine Escherichia coli [facility] Culture, urine Vancomycin Resist. E . faecium [facility] Bacteria identified Cx Nom ( U)Ordered By: Lavon Vicente on 11-14-2022 Culture, urine Vancomycin Resist. E . faecium [facility] Basophil percentageOrdered B y: Nancy Wilcox on 11-14-2022 Basophil percentage 116 mg/dL 74-106 [facility] Basophil percentage 8.5 g/dL 6.4-8.2 [facility] Basophil percentage 0.40 mg/dL 0.20-1.00 [facility] Basophil percentage 140 mmol/L 136-145 [facility] Basophil percentage 3.3 mmol/L 3.5-5.1 [facility] Basophil percentage 101 mmol/L 98-107 [facility] Basophil percentage 2.3 mmol/L 0.4-2.0 [facility] Basophils (Bld) [#/Vol] 12.6 10*3/uL 4.4-11.0 [facility] Basophils (Bld) [#/Vol] 7.3 10*3/uL 2.0-7.7 [facility] Basophils/100 WBC (Bld) 57.6 % 47-70 [facility] Basophils/100 WBC (Bld) 1.6 % 0-5 [facility] Basophils/100 WBC (Bld) 0.4 % 0-1 [facility] Basophil percentage 50-100 SEEN /hpf 0-5 [facility] Bilirubin Test strip Ql (U)O rdered By: Nancy Wilcox on 11-14-2022 Bilirubin Ql (U) 1 mg/dL Negative [facility] Blood erythrocytes count (nu mber/volume)Ordered By: Nancy Wilcox on 11-14-2022 RBC (Bld) [#/Vol] 5.04 10*6/uL 4.2-5.4 [facility] Blood hemoglobin measurement (mass/volume)Ordered By: Nancy Wilcox on 11-14-2022 Hemoglobin (Bld) [Mass/Vol] 13.2 g/dL 12.0-15.0 [facility] Blood lymphocytes/100 leukoc ytesOrdered By: Nancy Wilcox on 11-14-2022 Lymphocytes/100 WBC (Bld) 31.0 % 19-41 [facility] Blood monocytes/100 leukocyt esOrdered By: Nancy Wilcox on 11-14-2022 Monocytes/100 WBC (Bld) 9.1 % 0-10 [facility] Blood platelet mean volumeOr dered By: Nancy Wilcox on 11-14-2022 Platelet mean volume (Bld) [Entitic vol] 9.4 fL 6.2-12.0 [facility] Determination of erythrocyte mean corpuscular volume (MCV)Ordered By: Nancy Wilcox on 11-14-2022 MCV (RBC) [Entitic vol] 82.7 fL 81-99 [facility] Hematocrit Auto (Bld) [Volum e fraction]Ordered By: Nancy Wilcox on 11-14-2022 Hematocrit (Bld) [Volume fraction] 41.7 % 37-47 [facility] Hyaline casts LM.LPF (Urine sed) [#/Area]Ordered By: Nancy Wilcox on 11-14-2022 Hyaline casts (Urine sed) [#/Area] 0 /[LPF] 0-5 [facility] INR in Blood by Coagulation assayOrdered By: Nancy Wilcox on 11-14-2022 INR Coag (Bld) [Relative time] 1.1 {INR} [facility] Ketones Test strip Ql (U)Ord ered By: Nancy Wilcox on 11-14-2022 Ketones Ql (U) 15 mg/dl Negative [facility] MCHC Auto (RBC) [Mass/Vol]Or dered By: Nancy Wilcox on 11-14-2022 MCHC (RBC) [Mass/Vol] 31.7 g/dL 32-36 [facility] Mucus LM Ql (Urine sed)Order ed By: Nancy Wilcox on 11-14-2022 Mucus Ql (Urine sed) 1+ /hpf [facility] Nitrite Test strip Ql (U)Ord ered By: Nancy Wilcox on 11-14-2022 Nitrite Ql (U) Negative Negative [facility] No Panel InformationOrdered By: Nancy Wilcox on 11-14-2022 No growth in 5 days. [facility] 26.2 pg 27.0-32.0 [facility] 16.8 % 11.6-14.6 [facility] 50.3 fl 35.1-43.9 [facility] 0.300 % 0.0-0.9 [facility] 0 % 0-5 [facility] 13.8 SECONDS 11.7-14.9 [facility] 20.8 Seconds 24.1-36.2 [facility] 88 mL/min >60 [facility] 106 mL/min >60 [facility] 69.22 ml/min [facility] 29.5 RATIO 10-20 [facility] 5.2 g/dL 2.2-4.2 [facility] 99 U/L 45-117 [facility] 72 U/L 13-56 [facility] 31.0 mmol/L 21.0-32.0 [facility] 0-5 SEEN /hpf 0-5 [facility] Platelets bldOrdered By: Rebecca Wilcox on 11-14-2022 Platelets (Bld) [#/Vol] 376 10*3/uL 150-450 [facility] Protein Test strip Ql (U)Ord ered By: Nancy Wilcox on 11-14-2022 Protein Ql (U) 500 mg/dl Negative [facility] Serum or plasma albumin miguel angel urement (mass/volume)Ordered By: Nancy Wilcox on 11-14-2022 Albumin [Mass/Vol] 3.3 g/dL 3.2-5.0 [facility] Serum or plasma albumin/glob ulin mass ratioOrdered By: Nancy Wilcox on 11-14-2022 Albumin/Globulin [Mass ratio] 0.6 {ratio} 0.9-2.4 [facility] Serum or plasma calcium miguel angel urement (mass/volume)Ordered By: Nancy Wilcox on 11-14-2022 Calcium [Mass/Vol] 9.4 mg/dL 8.5-10.1 [facility] Serum or plasma creatinine m easurement (mass/volume)Ordered By: Nancy Wilcox on 11-14-2022 Creatinine [Mass/Vol] 0.75 mg/dL 0.55-1.02 [facility] Serum or plasma urea nitroge n measurement (mass/volume)Ordered By: Nancy Wilcox on 11-14-2022 Urea nitrogen [Mass/Vol] 22 mg/dL 7-18 [facility] Squamous epithelial cells de tection in urine sediment by light microscopyOrdered By: Nancy Wilcox on 11-14-2022 Epithelial cells.squamous LM Ql (Urine sed) 10-25 SEEN /hpf 5-10 [facility] Thin prep Papanicolaou smear with manual screeningOrdered By: Nancy Wilcox on 11-14-2022 Thin prep Papanicolaou smear with manual screening 55 U/L 15-37 [facility] Thin prep Papanicolaou smear with manual screening 8 5-15 [facility] Urine blood detectionOrdered By: Nancy Wilcox on 11-14-2022 RBC Ql (U) 250 /ul Negative [facility] RBC Ql (U) 10-25 SEEN /hpf 0-5 [facility] Urine clarityOrdered By: Rebecca Wilcox on 11-14-2022 Clarity (U) Cloudy Clear [facility] Urine color determinationOrd ered By: Nancy Wilcox on 11-14-2022 Color (U) Yellow Yellow [facility] Urine glucose detectionOrder ed By: Nancy Wilcox on 11-14-2022 Glucose Ql (U) Normal mg/dl Normal [facility] Urine leukocyte esterase det ection by dipstickOrdered By: Nancy Wilcox on 11-14-2022 Leukocyte esterase Test strip Ql (U) 500 /ul Negative [facility] Urine pHOrdered By: Nancy martinez on 11-14-2022 pH (U) 6.5 [pH] 5.0 - 8.0 [facility] Urine sediment bacteria coun t by microscopy (number/high power field)Ordered By: Nancy Wilcox on 11-14-2022 Bacteria LM.HPF (Urine sed) [#/Area] 2 /[HPF] None Seen [facility] Urine specific gravity measu rementOrdered By: Nancy Wilcox on 11-14-2022 Specific gravity (U) [Rel density] 1.020 1.002-1.030 [facility] Urobilinogen Auto test strip Ql (U)Ordered By: Nancy Wilcox on 11-14-2022 Urobilinogen Ql (U) 1 mg/dl Normal [facility] Bacteria identified Cx Nom ( U)Ordered By: Dr. River on 11-13-2022 Culture, urine Vancomycin Resist. E . faecium [facility] Bacteria identified Cx Nom ( U)Ordered By: Lavon Vicente on 11-12-2022 Culture, urine Vancomycin Resist. E . faecium [facility] Bilirubin Test strip Ql (U)O rdered By: Lavon Vicente on 11-12-2022 Bilirubin Ql (U) 1 mg/dL Negative [facility] Ketones Test strip Ql (U)Ord ered By: Lavon Vicente on 11-12-2022 Ketones Ql (U) 150 mg/dl Negative [facility] Nitrite Test strip Ql (U)Ord ered By: Lavon Vicente on 11-12-2022 Nitrite Ql (U) Negative Negative [facility] No Panel InformationOrdered By: Lavon Vicente on 11-12-2022 [facility] Negative < 50 ng/mL [facility] Protein Test strip Ql (U)Ord ered By: Lavon Vicente on 11-12-2022 Protein Ql (U) 100 mg/dl Negative [facility] Urine blood detectionOrdered By: Lavon Vicente on 11-12-2022 RBC Ql (U) 250 /ul Negative [facility] Urine clarityOrdered By: Estefany Vicente on 11-12-2022 Clarity (U) Sl. Cloudy Clear [facility] Urine color determinationOrd ered By: Lavon Vicente on 11-12-2022 Color (U) Yellow Yellow [facility] Urine glucose detectionOrder ed By: Lavon Vicente on 11-12-2022 Glucose Ql (U) Normal mg/dl Normal [facility] Urine leukocyte esterase det ection by dipstickOrdered By: Lavon Vicente on 11-12-2022 Leukocyte esterase Test strip Ql (U) 500 /ul Negative [facility] Urine pHOrdered By: Lavon alcala on 11-12-2022 pH (U) 6.0 [pH] 5.0 - 8.0 [facility] Urine phencyclidine (PCP) de tectionOrdered By: Lavon Vicente on 11-12-2022 Phencyclidine Ql (U) Negative < 25 ng/mL [facility] Urine specific gravity measu rementOrdered By: Lavon Vicente on 11-12-2022 Specific gravity (U) [Rel density] 1.020 1.002-1.030 [facility] Urobilinogen Auto test strip Ql (U)Ordered By: Lavon Vicente on 11-12-2022 Urobilinogen Ql (U) Normal mg/dl Normal [facility] Basophil percentageOrdered B y: Lavon Vicente on 11-11-2022 Basophil percentage 102 mg/dL 74-106 [facility] Basophil percentage 7.7 g/dL 6.4-8.2 [facility] Basophil percentage 0.40 mg/dL 0.20-1.00 [facility] Basophil percentage 139 mmol/L 136-145 [facility] Basophil percentage 3.3 mmol/L 3.5-5.1 [facility] Basophil percentage 105 mmol/L 98-107 [facility] Basophil percentage 26.0 umol/L 11-32 [facility] Basophils (Bld) [#/Vol] 11.2 10*3/uL 4.4-11.0 [facility] Blood erythrocytes count (nu mber/volume)Ordered By: Lavon Vicente on 11-11-2022 RBC (Bld) [#/Vol] 4.60 10*6/uL 4.2-5.4 [facility] Blood hemoglobin measurement (mass/volume)Ordered By: Lavon Vicente on 11-11-2022 Hemoglobin (Bld) [Mass/Vol] 11.9 g/dL 12.0-15.0 [facility] Blood platelet mean volumeOr dered By: Lavon Vicente on 11-11-2022 Platelet mean volume (Bld) [Entitic vol] 9.3 fL 6.2-12.0 [facility] Determination of erythrocyte mean corpuscular volume (MCV)Ordered By: Lavon Vicente on 11-11-2022 MCV (RBC) [Entitic vol] 81.5 fL 81-99 [facility] Hematocrit Auto (Bld) [Volum e fraction]Ordered By: Lavon Vicente on 11-11-2022 Hematocrit (Bld) [Volume fraction] 37.5 % 37-47 [facility] MCHC Auto (RBC) [Mass/Vol]Or dered By: Lavon Vicente on 11-11-2022 MCHC (RBC) [Mass/Vol] 31.7 g/dL 32-36 [facility] No Panel InformationOrdered By: Lavon Vicente on 11-11-2022 25.9 pg 27.0-32.0 [facility] 16.0 % 11.6-14.6 [facility] 47.1 fl 35.1-43.9 [facility] 127 mL/min >60 [facility] 154 mL/min >60 [facility] 40.7 RATIO 10-20 [facility] 4.6 g/dL 2.2-4.2 [facility] 94 U/L 45-117 [facility] 72 U/L 13-56 [facility] 21.0 mmol/L 21.0-32.0 [facility] 1.58 uIU/mL 0.358-3.74 [facility] 35.2 ng/mL [facility] Platelets bldOrdered By: Estefany Vicente on 11-11-2022 Platelets (Bld) [#/Vol] 384 10*3/uL 150-450 [facility] Serum or plasma albumin miguel angel urement (mass/volume)Ordered By: Lavon Vicente on 11-11-2022 Albumin [Mass/Vol] 3.1 g/dL 3.2-5.0 [facility] Serum or plasma albumin/glob ulin mass ratioOrdered By: Lavon Vicente on 11-11-2022 Albumin/Globulin [Mass ratio] 0.7 {ratio} 0.9-2.4 [facility] Serum or plasma calcium miguel angel urement (mass/volume)Ordered By: Lavon Vicente on 11-11-2022 Calcium [Mass/Vol] 9.2 mg/dL 8.5-10.1 [facility] Serum or plasma creatinine m easurement (mass/volume)Ordered By: Lavon Vicente on 11-11-2022 Creatinine [Mass/Vol] 0.54 mg/dL 0.55-1.02 [facility] Serum or plasma urea nitroge n measurement (mass/volume)Ordered By: Lavon Vicente on 11-11-2022 Urea nitrogen [Mass/Vol] 22 mg/dL 7-18 [facility] Thin prep Papanicolaou smear with manual screeningOrdered By: Lavon Vicente on 11-11-2022 Thin prep Papanicolaou smear with manual screening 62 U/L 15-37 [facility] Thin prep Papanicolaou smear with manual screening 13 -15 [facility] Basophil percentageOrdered B y: Lavon Vicente on 11-10-2022 Basophil percentage 87 mg/dL 74-106 [facility] Basophil percentage 137 mmol/L 136-145 [facility] Basophil percentage 3.7 mmol/L 3.5-5.1 [facility] Basophil percentage 106 mmol/L 98-107 [facility] No Panel InformationOrdered By: Lavon Vicente on 11-10-2022 191 mL/min >60 [facility] 232 mL/min >60 [facility] 39.5 RATIO 10-20 [facility] 16.0 mmol/L 21.0-32.0 [facility] Serum or plasma calcium miguel angel urement (mass/volume)Ordered By: Lavon Vicente on 11-10-2022 Calcium [Mass/Vol] 8.2 mg/dL 8.5-10.1 [facility] Serum or plasma creatinine m easurement (mass/volume)Ordered By: Lavon Vicente on 11-10-2022 Creatinine [Mass/Vol] 0.38 mg/dL 0.55-1.02 [facility] Serum or plasma urea nitroge n measurement (mass/volume)Ordered By: Lavon Vicente on 11-10-2022 Urea nitrogen [Mass/Vol] 15 mg/dL 12-29 [facility] Thin prep Papanicolaou smear with manual screeningOrdered By: Lavon Vicente on 11-10-2022 Thin prep Papanicolaou smear with manual screening 15 10-26 [facility] Absolute lymphocyte countOrd ered By: Dr. River on 11-09-2022 Lymphocytes Auto (Unsp spec) [#/Vol] 2.85 10*3/uL 0.83-4.51 [facility] Bacteria identified Cx Nom ( U)Ordered By: Romero River on 11-09-2022 Culture, urine Vancomycin Resist. E . faecium [facility] Basophil percentageOrdered B y: Dr. River on 11-09-2022 Basophil percentage 50-100 SEEN /hpf 0-5 [facility] Basophil percentage 1.6 mmol/L 0.4-2.0 [facility] Basophils (Bld) [#/Vol] 12.3 10*3/uL 4.4-11.0 [facility] Basophils (Bld) [#/Vol] 8.1 10*3/uL 2.0-7.7 [facility] Basophils/100 WBC (Bld) 0.4 % 0-1 [facility] Basophils/100 WBC (Bld) 65.6 % 47-70 [facility] Basophils/100 WBC (Bld) 3.3 % 0-5 [facility] Eosinophils/100 WBC (Bld) 3.3 % 0-5 [facility] Lactate [Moles/Vol] 1.6 mmol/L 0.4-2.0 [facility] Neutrophils (Bld) [#/Vol] 8.1 10*3/uL 2.0-7.7 [facility] Neutrophils/100 WBC (Bld) 65.6 % 47-70 [facility] WBC (Bld) [#/Vol] 12.3 10*3/uL 4.4-11.0 [facility] Basophil percentage 100 mg/dL 74-106 [facility] Basophil percentage 139 mmol/L 136-145 [facility] Basophil percentage 3.6 mmol/L 3.5-5.1 [facility] Basophil percentage 106 mmol/L 98-107 [facility] Chloride [Moles/Vol] 106 mmol/L 98-107 [facility] Glucose [Mass/Vol] 100 mg/dL 74-106 [facility] Comment on above: Fasting Glucose resu lt from 100 to 125 mg/dL suggests IMPAIRED HOMEOSTASIS per A.D.A. criteria. Potassium [Moles/Vol] 3.6 mmol/L 3.5-5.1 [facility] Comment on above: Moderate Hemolysis, Result may be falsely increased. Sodium [Moles/Vol] 139 mmol/L 136-145 [facility] Bilirubin Test strip Ql (U)O rdered By: Dr. River on 11-09-2022 Bilirubin Ql (U) 1 mg/dL Negative [facility] Comment on above: COLOR OF URINE MAY A FFECT DIPSTICK RESULTS. Blood erythrocytes count (nu mber/volume)Ordered By: Dr. River on 11-09-2022 RBC (Bld) [#/Vol] 4.68 10*6/uL 4.2-5.4 [facility] Blood hemoglobin measurement (mass/volume)Ordered By: Dr. River on 11-09-2022 Hemoglobin (Bld) [Mass/Vol] 12.4 g/dL 12.0-15.0 [facility] Blood lymphocytes/100 leukoc ytesOrdered By: Dr. River on 11-09-2022 Lymphocytes/100 WBC (Bld) 23.2 % 19-41 [facility] Blood monocytes/100 leukocyt esOrdered By: Dr. River on 11-09-2022 Monocytes/100 WBC (Bld) 7.2 % 0-10 [facility] Blood platelet mean volumeOr dered By: Dr. River on 11-09-2022 Platelet mean volume (Bld) [Entitic vol] 9.1 fL 6.2-12.0 [facility] Determination of erythrocyte mean corpuscular volume (MCV)Ordered By: Dr. River on 11-09-2022 MCV (RBC) [Entitic vol] 83.1 fL 81-99 [facility] Hematocrit Auto (Bld) [Volum e fraction]Ordered By: Dr. River on 11-09-2022 Hematocrit (Bld) [Volume fraction] 38.9 % 37-47 [facility] INR in Blood by Coagulation assayOrdered By: Dr. River on 11-09-2022 INR Coag (Bld) [Relative time] 1.1 {INR} [facility] Ketones Test strip Ql (U)Ord ered By: Dr. River on 11-09-2022 Ketones Ql (U) 150 mg/dl Negative [facility] Comment on above: CRITICAL VALUE *HCRI TICAL VALUE VERIFIED. CALLED TO 11/09/221702 Roman Bradford.RESULTS READ BACK BY SAME CHARO CHAVEZ. Laboratory - Chemistry and C hemistry - challengeOrdered By: Dr. River on 11-09-2022 CO2 [Moles/Vol] 20.0 mmol/L 21.0-32.0 [facility] Urea nitrogen/Creatinine [Mass ratio] 59.0 mg/mg 10-20 [facility] Laboratory - CoagulationOrde red By: Dr. River on 11-09-2022 aPTT Coag (Bld) [Time] 30.2 s 24.1-36.2 [facility] PT Coag (PPP) [Time] 14.0 s 11.7-14.9 [facility] Laboratory - Hematology and Cell countsOrdered By: Dr. River on 11-09-2022 Erythrocyte distribution width (RBC) [Entitic vol] 46.9 fL 35.1-43.9 [facility] Erythrocyte distribution width (RBC) [Ratio] 15.9 % 11.6-14.6 [facility] Immature granulocytes/100 WBC (Bld) 0.300 % 0.0-0.9 [facility] Comment on above: IG% - Immature Granu locytes (promyelocytes, myelocytes and metamyelocytes) > 1% indicates that a LEFT SHIFT is Present. MCH (RBC) [Entitic mass] 26.5 pg 27.0-32.0 [facility] Nucleated RBC/100 WBC (Bld) [Ratio] 0 % 0-5 [facility] MCHC Auto (RBC) [Mass/Vol]Or dered By: Dr. River on 11-09-2022 MCHC (RBC) [Mass/Vol] 31.9 g/dL 32-36 [facility] Mucus LM Ql (Urine sed)Order ed By: Dr. River on 11-09-2022 Mucus Ql (Urine sed) 0 SEEN /hpf [facility] Nitrite Test strip Ql (U)Ord ered By: Dr. River on 11-09-2022 Nitrite Ql (U) Positive Negative [facility] No Panel InformationOrdered By: Dr. River on 11-09-2022 26.5 pg 27.0-32.0 [facility] 15.9 % 11.6-14.6 [facility] 46.9 fl 35.1-43.9 [facility] 0.300 % 0.0-0.9 [facility] 0 % 0-5 [facility] 14.0 SECONDS 11.7-14.9 [facility] 30.2 Seconds 24.1-36.2 [facility] Estimated Creatinine Clearance Calc 173.05 ml/min [facility] Estimated GFR (MDRD) Amer 299 mL/min >60 [facility] Comment on above: GFR Calc Estimated GFR (MDRD) Non-Af Amer 247 mL/min >60 [facility] Comment on above: Non- GFR Calc 247 mL/min >60 [facility] 299 mL/min >60 [facility] 173.05 ml/min [facility] 59.0 RATIO 10-20 [facility] 20.0 mmol/L 21.0-32.0 [facility] No Panel InformationOrdered By: Romero River on 11-09-2022 No growth in 5 days. [facility] Platelets bldOrdered By: Dr. River on 11-09-2022 Platelets (Bld) [#/Vol] 391 10*3/uL 150-450 [facility] Protein Test strip Ql (U)Ord ered By: Dr. River on 11-09-2022 Protein Ql (U) 100 mg/dl Negative [facility] Serum or plasma calcium miguel angel urement (mass/volume)Ordered By: Dr. River on 11-09-2022 Calcium [Mass/Vol] 8.6 mg/dL 8.5-10.1 [facility] Serum or plasma creatinine m easurement (mass/volume)Ordered By: Dr. River on 11-09-2022 Creatinine [Mass/Vol] 0.30 mg/dL 0.55-1.02 [facility] Comment on above: The validity of the calculated GFR & GFRAA in patients over 70 years has not been determined. Clinical correlation is essential. Serum or plasma urea nitroge n measurement (mass/volume)Ordered By: Dr. River on 11-09-2022 Urea nitrogen [Mass/Vol] 18 mg/dL 7-18 [facility] Squamous epithelial cells de tection in urine sediment by light microscopyOrdered By: Dr. River on 11-09-2022 Epithelial cells.squamous LM Ql (Urine sed) 0-5 SEEN /hpf 5-10 [facility] Thin prep Papanicolaou smear with manual screeningOrdered By: Dr. River on 11-09-2022 Thin prep Papanicolaou smear with manual screening 13 5-15 [facility] Urine blood detectionOrdered By: Dr. River on 11-09-2022 RBC Ql (U) 250 /ul Negative [facility] RBC Ql (U) > 100 SEEN /hpf 0-5 [facility] Urine clarityOrdered By: Dr. River on 11-09-2022 Clarity (U) Cloudy Clear [facility] Urine color determinationOrd ered By: Dr. River on 11-09-2022 Color (U) Latonya Yellow [facility] Urine glucose detectionOrder ed By: Dr. River on 11-09-2022 Glucose Ql (U) Normal mg/dl Normal [facility] Urine leukocyte esterase det ection by dipstickOrdered By: Dr. River on 11-09-2022 Leukocyte esterase Test strip Ql (U) 500 /ul Negative [facility] Urine pHOrdered By: Dr. Janae payton on 11-09-2022 pH (U) 6.0 [pH] 5.0 - 8.0 [facility] Urine sediment bacteria coun t by microscopy (number/high power field)Ordered By: Dr. River on 11-09-2022 Bacteria LM.HPF (Urine sed) [#/Area] RARE /hpf None Seen [facility] Urine specific gravity measu rementOrdered By: Dr. River on 11-09-2022 Specific gravity (U) [Rel density] 1.025 1.002-1.030 [facility] Urobilinogen Auto test strip Ql (U)Ordered By: Dr. River on 11-09-2022 Urobilinogen Ql (U) 1 mg/dl Normal [facility] Absolute lymphocyte countOrd ered By: Dr. Acharya on 11-06-2022 Lymphocytes Auto (Unsp spec) [#/Vol] 3.39 10*3/uL 0.83-4.51 [facility] Basophil percentageOrdered B y: Dr. Acharya on 11-06-2022 Basophil percentage >100 SEEN /hpf 0-5 [facility] Basophil percentage 157 mg/dL 74-106 [facility] Basophil percentage 7.7 g/dL 6.4-8.2 [facility] Basophil percentage 0.30 mg/dL 0.20-1.00 [facility] Basophil percentage 143 mmol/L 136-145 [facility] Basophil percentage 4.5 mmol/L 3.5-5.1 [facility] Basophil percentage 103 mmol/L 98-107 [facility] Basophil percentage 1.2 mmol/L 0.4-2.0 [facility] Basophils (Bld) [#/Vol] 11.9 10*3/uL 4.4-11.0 [facility] Basophils (Bld) [#/Vol] 7.6 10*3/uL 2.0-7.7 [facility] Basophils/100 WBC (Bld) 0.4 % 0-1 [facility] Basophils/100 WBC (Bld) 64.3 % 47-70 [facility] Basophils/100 WBC (Bld) 1.3 % 0-5 [facility] Bilirubin [Mass/Vol] 0.30 mg/dL 0.20-1.00 [facility] Comment on above: For patients on eltr ombopag therapy, use of Dimension [place] TBIL is not recommended. Chloride [Moles/Vol] 103 mmol/L 98-107 [facility] Eosinophils/100 WBC (Bld) 1.3 % 0-5 [facility] Glucose [Mass/Vol] 157 mg/dL 74-106 [facility] Comment on above: Fasting Glucose resu lt greater than or equal to 126 mg/dL suggests DIABETES MELLITUS per A.D.A. criteria. Lactate [Moles/Vol] 1.2 mmol/L 0.4-2.0 [facility] Neutrophils (Bld) [#/Vol] 7.6 10*3/uL 2.0-7.7 [facility] Neutrophils/100 WBC (Bld) 64.3 % 47-70 [facility] Potassium [Moles/Vol] 4.5 mmol/L 3.5-5.1 [facility] Protein [Mass/Vol] 7.7 g/dL 6.4-8.2 [facility] Sodium [Moles/Vol] 143 mmol/L 136-145 [facility] WBC (Bld) [#/Vol] 11.9 10*3/uL 4.4-11.0 [facility] Bilirubin Test strip Ql (U)O rdered By: Dr. Acharya on 11-06-2022 Bilirubin Ql (U) Negative Negative [facility] Blood erythrocytes count (nu mber/volume)Ordered By: Dr. Acharya on 11-06-2022 RBC (Bld) [#/Vol] 4.64 10*6/uL 4.2-5.4 [facility] Blood hemoglobin measurement (mass/volume)Ordered By: Dr. Acharya on 11-06-2022 Hemoglobin (Bld) [Mass/Vol] 11.8 g/dL 12.0-15.0 [facility] Blood lymphocytes/100 leukoc ytesOrdered By: Dr. Acharya on 11-06-2022 Lymphocytes/100 WBC (Bld) 28.6 % 19-41 [facility] Blood monocytes/100 leukocyt esOrdered By: Dr. Acharya on 11-06-2022 Monocytes/100 WBC (Bld) 4.8 % 0-10 [facility] Blood platelet mean volumeOr dered By: Dr. Acharya on 11-06-2022 Platelet mean volume (Bld) [Entitic vol] 9.0 fL 6.2-12.0 [facility] Determination of erythrocyte mean corpuscular volume (MCV)Ordered By: Dr. Acharya on 11-06-2022 MCV (RBC) [Entitic vol] 83.0 fL 81-99 [facility] HCO3 (BldA) [Moles/Vol]Order ed By: Dr. Acharya on 11-06-2022 HCO3 (Bld) [Moles/Vol] 34 mmol/L - [facility] Hematocrit Auto (Bld) [Volum e fraction]Ordered By: Dr. Acharya on 11-06-2022 Hematocrit (Bld) [Volume fraction] 38.5 % 37-47 [facility] Ketones Test strip Ql (U)Ord ered By: Dr. Acharya on 11-06-2022 Ketones Ql (U) Negative Negative [facility] Laboratory - Chemistry and C hemistry - challengeOrdered By: Dr. Acharya on 11-06-2022 CO2 [Moles/Vol] 36 mmol/L 23-33 [facility] ALP [Catalytic activity/Vol] 117 U/L 45-117 [facility] ALT [Catalytic activity/Vol] 58 U/L 13-56 [facility] CO2 [Moles/Vol] 36.0 mmol/L 21.0-32.0 [facility] Globulin (S) [Mass/Vol] 4.6 g/dL 2.2-4.2 [facility] Lipase [Catalytic activity/Vol] 42 U/L 13-75 [facility] Comment on above: Please note:LIPASE r evised reference range effective 22. New Lipase methodology. Expected to produce lower values than the previous assay method. NEW Reference Range: 13 - 75 U/L Urea nitrogen/Creatinine [Mass ratio] 26.8 mg/mg 10-20 [facility] Laboratory - Drug toxicology Ordered By: Dr. Acharya on 11-06-2022 Amphetamines Ql (U) Negative <1000 ng/mL [facility] Benzodiazepines Ql (U) Negative < 200 ng/mL [facility] Cannabinoids Screen Ql (U) Negative < 50 ng/mL [facility] Cocaine Ql (U) Negative < 300 ng/mL [facility] Opiates Ql (U) Negative < 300 ng/mL [facility] Laboratory - Hematology and Cell countsOrdered By: Dr. Acharya on 11-06-2022 Erythrocyte distribution width (RBC) [Entitic vol] 47.9 fL 35.1-43.9 [facility] Erythrocyte distribution width (RBC) [Ratio] 15.9 % 11.6-14.6 [facility] Immature granulocytes/100 WBC (Bld) 0.600 % 0.0-0.9 [facility] Comment on above: IG% - Immature Granu locytes (promyelocytes, myelocytes and metamyelocytes) > 1% indicates that a LEFT SHIFT is Present. MCH (RBC) [Entitic mass] 25.4 pg 27.0-32.0 [facility] Nucleated RBC/100 WBC (Bld) [Ratio] 0 % 0-5 [facility] MCHC Auto (RBC) [Mass/Vol]Or dered By: Dr. Acharya on 11-06-2022 MCHC (RBC) [Mass/Vol] 30.6 g/dL 32-36 [facility] Mucus LM Ql (Urine sed)Order ed By: Dr. Acharya on 11-06-2022 Mucus Ql (Urine sed) 0 SEEN /hpf [facility] Nitrite Test strip Ql (U)Ord ered By: Dr. Acharya on 11-06-2022 Nitrite Ql (U) Positive Negative [facility] No Panel InformationOrdered By: Dr. Acharya on 11-06-2022 MDMA (Ecstasy) Screen Negative < 500 ng/mL [facility] Urine Barbiturates Screen Negative < 200 ng/mL [facility] Urine Drug Screen Comment [facility] Comment on above: CONFIRMATORY TESTING [...] Urine Methadone Screen Negative < 300 ng/mL [facility] Negative < 50 ng/mL [facility] Bed Mix Venous Bld PCO2 at Pat Temp 54.1 mmHg 41-51 [facility] Blood Gas Liter Flow 2.0 /min [facility] Blood Gas Specimen Type BHUPINDER [facility] Oxygen Delivery Device Cannula [facility] Venous Blood Base Excess 9 mmol/L -1.0-3.5 [facility] BHUPINDER [facility] Cannula [facility] 2.0 /min [facility] 54.1 mmHg 41-51 [facility] 9 mmol/L -1.0-3.5 [facility] 82 % 50-70 [facility] 36 mmol/L 23-33 [facility] Estimated Creatinine Clearance Calc 115.37 ml/min [facility] Estimated GFR (MDRD) Amer 192 mL/min >60 [facility] Comment on above: GFR Calc Estimated GFR (MDRD) Non-Af Amer 159 mL/min >60 [facility] Comment on above: Non- GFR Calc Ethyl Alcohol Level 6.0 mg/dL [facility] Comment on above: The serum:whole bloo d ethanol ratio is approximately 1.14and varies slightly with hematocrit. Medical Alcohol reference interval and critical value innon-tolerant individuals; 50 - 100 Impairment 100 Intoxication 100 - 250 Severe Poisoning 250 - 400 Deep/possible fatal coma 25.4 pg 27.0-32.0 [facility] 15.9 % 11.6-14.6 [facility] 47.9 fl 35.1-43.9 [facility] 0.600 % 0.0-0.9 [facility] 0 % 0-5 [facility] 159 mL/min >60 [facility] 192 mL/min >60 [facility] 115.37 ml/min [facility] 26.8 RATIO 10-20 [facility] 4.6 g/dL 2.2-4.2 [facility] 42 U/L 13-75 [facility] 117 U/L 45-117 [facility] 58 U/L 13-56 [facility] 36.0 mmol/L 21.0-32.0 [facility] 6.0 mg/dL [facility] PO2 venousOrdered By: Dr. Cristi otto on 11-06-2022 Oxygen (BldV) [Partial pressure] 48 mm[Hg] 25-40 [facility] Platelets bldOrdered By: Dr. Acharya on 11-06-2022 Platelets (Bld) [#/Vol] 360 10*3/uL 150-450 [facility] Protein Test strip Ql (U)Ord ered By: Dr. Acharya on 11-06-2022 Protein Ql (U) 100 mg/dl Negative [facility] Serum or plasma albumin miguel angel urement (mass/volume)Ordered By: Dr. Acharya on 11-06-2022 Albumin [Mass/Vol] 3.1 g/dL 3.2-5.0 [facility] Serum or plasma albumin/glob ulin mass ratioOrdered By: Dr. Acharya on 11-06-2022 Albumin/Globulin [Mass ratio] 0.7 {ratio} 0.9-2.4 [facility] Serum or plasma calcium miguel angel urement (mass/volume)Ordered By: Dr. Acharya on 11-06-2022 Calcium [Mass/Vol] 8.7 mg/dL 8.5-10.1 [facility] Serum or plasma creatinine m easurement (mass/volume)Ordered By: Dr. Acharya on 11-06-2022 Creatinine [Mass/Vol] 0.45 mg/dL 0.55-1.02 [facility] Comment on above: The validity of the calculated GFR & GFRAA in patients over 70 years has not been determined. Clinical correlation is essential. Serum or plasma urea nitroge n measurement (mass/volume)Ordered By: Dr. Acharya on 11-06-2022 Urea nitrogen [Mass/Vol] 12 mg/dL 7-18 [facility] Squamous epithelial cells de tection in urine sediment by light microscopyOrdered By: Dr. Acharya on 11-06-2022 Epithelial cells.squamous LM Ql (Urine sed) 0-5 SEEN /hpf 5-10 [facility] Thin prep Papanicolaou smear with manual screeningOrdered By: Dr. Acharya on 11-06-2022 Thin prep Papanicolaou smear with manual screening 33 U/L 15-37 [facility] Thin prep Papanicolaou smear with manual screening 4 5-15 [facility] Urine blood detectionOrdered By: Dr. Acharya on 11-06-2022 RBC Ql (U) 150 /ul Negative [facility] RBC Ql (U) 0 SEEN /hpf 0-5 [facility] Urine clarityOrdered By: Dr. Acharya on 11-06-2022 Clarity (U) Cloudy Clear [facility] Urine color determinationOrd ered By: Dr. Acharya on 11-06-2022 Color (U) Yellow Yellow [facility] Urine glucose detectionOrder ed By: Dr. Acharya on 11-06-2022 Glucose Ql (U) Normal mg/dl Normal [facility] Urine leukocyte esterase det ection by dipstickOrdered By: Dr. Acharya on 11-06-2022 Leukocyte esterase Test strip Ql (U) 500 /ul Negative [facility] Urine pHOrdered By: Dr. Acharya on 11-06-2022 pH (U) 6.5 [pH] 5.0 - 8.0 [facility] Urine phencyclidine (PCP) de tectionOrdered By: Dr. Acharya on 11-06-2022 Phencyclidine Ql (U) Negative < 25 ng/mL [facility] Urine sediment bacteria coun t by microscopy (number/high power field)Ordered By: Dr. Acharya on 05-26-2023 Bacteria LM.HPF (Urine sed) [#/Area] 3 /[HPF] None Seen [facility] Urine specific gravity measu rementOrdered By: Dr. Acharya on 11-06-2022 Specific gravity (U) [Rel density] 1.020 1.002-1.030 [facility] Urobilinogen Auto test strip Ql (U)Ordered By: Dr. Acharya on 11-06-2022 Urobilinogen Ql (U) Normal mg/dl Normal [facility] Vital signsOrdered By: Dr. Edmundo cruz on 11-06-2022 Oxygen saturation in Blood 82 % 50-70 [facility] pH measurementOrdered By: Dr Kimberly Acharya on 11-06-2022 pH (Unsp spec) 7.41 [pH] 7.32-7.42 [facility] CNPNon 10-21-2022 CNPN Telephone (UROLWS) HENRIK REED ([id number]) 1975 F Date Time Provider Department 10/21/22 ROSA MARIA MARTINEZ During your visit today, we recorded the following information about you: Justine Morrow Pss 10/21/2022 12:53 PM Signed senior living is calling to let provider know that [...] Encounter Status:Closed by JUSTINE SIMMONS on 11/20/22 [facility] YORDYOVchloe 10-06-2022 CNOV Office Visit (UROLWS ) HENRIK REED ([id number]) 1975 F Date Time Provider Department 10/06/22 11:20 AM ROSA MARIA MARTINEZ During your visit today, we recorded the following information about you: Temperature Pulse Respiration Blood pressure 97 degrees 86/minute 16/minute 110/70 Weight Height 104.3 kg 1.6 m Rosa Maria Martinez PA-C 10/06/2022 7:08 PM Signed [facility] [place] [facility] NEW PATIENT CLINIC NOTE SERVICE DATE: [...] needed. (Patient not taking: Reported on 10/06/2022) LENARD (more content not included)... Normal [facility] HENRIK REED ([id number]) 1975 F Date Time Provider Department 09/30/22 ROSA MARIA MARTINEZ During your visit today, we recorded the following information about you: Karis Valdez LPN 09/30/2022 4:46 PM Signed Wrong number. Karis Valdez LPN 09/30/2022 4:47 PM Signed Busy signal. Karis Valdez LPN 10/02/2022 3:36 PM Signed Busy signal. Karis Valdez LPN 10/05/2022 8:33 AM Signed Called patient's mothers number- no answer. Left message. Karis Valdez LPN 10/06/2022 2:39 PM Signed Patient seen today for office visit with Rosa Maria Martinez PA-C and updated phone number in [employer]. Patient does reside at [facility]. Karis Valdez LPN Allergies As of Date: 09/30/2022 Noted Allergy [...] Status:Closed by KARIS VALDEZ [facility]02[facility] Basophil percentageOrdered B y: Lavon Vicente on 09-18-2022 Basophils (Bld) [#/Vol] 8.1 10*3/uL 4.4-11.0 [facility] WBC (Bld) [#/Vol] 8.1 10*3/uL 4.4-11.0 [facility] Blood erythrocytes count (nu mber/volume)Ordered By: Lavon Vicente on 09-18-2022 RBC (Bld) [#/Vol] 4.34 10*6/uL 4.2-5.4 [facility] Blood hemoglobin measurement (mass/volume)Ordered By: Lavon Vicente on 09-18-2022 Hemoglobin (Bld) [Mass/Vol] 11.3 g/dL 12.0-15.0 [facility] Blood platelet mean volumeOr dered By: Lavon Vicente on 09-18-2022 Platelet mean volume (Bld) [Entitic vol] 9.7 fL 6.2-12.0 [facility] Determination of erythrocyte mean corpuscular volume (MCV)Ordered By: Lavon Vicente on 09-18-2022 MCV (RBC) [Entitic vol] 81.6 fL 81-99 [facility] Comment on above: Delta: 89.1 on 09/16 Hematocrit Auto (Bld) [Volum e fraction]Ordered By: Lavon Vicente on 09-18-2022 Hematocrit (Bld) [Volume fraction] 35.4 % 37-47 [facility] Laboratory - Hematology and Cell countsOrdered By: Lavon Vicente on 09-18-2022 Erythrocyte distribution width (RBC) [Entitic vol] 45.0 fL 35.1-43.9 [facility] Erythrocyte distribution width (RBC) [Ratio] 15.1 % 11.6-14.6 [facility] MCH (RBC) [Entitic mass] 26.0 pg 27.0-32.0 [facility] Laboratory - Microbiology an d Antimicrobial susceptibilityOrdered By: Dr. Pastor on 09-18-2022 Bacteria identified Cx Nom (Bld) No growth in 5 days. [facility] MCHC Auto (RBC) [Mass/Vol]Or dered By: Lavon Vicente on 09-18-2022 MCHC (RBC) [Mass/Vol] 31.9 g/dL 32-36 [facility] Comment on above: Delta: 29.2 on 09/16 No Panel InformationOrdered By: Lavon Vicente on 09-18-2022 26.0 pg 27.0-32.0 [facility] 15.1 % 11.6-14.6 [facility] 45.0 fl 35.1-43.9 [facility] No Panel InformationOrdered By: Dr. Pastor on 09-18-2022 No growth in 5 days. [facility] Platelets bldOrdered By: Estefany Vicente on 09-18-2022 Platelets (Bld) [#/Vol] 255 10*3/uL 150-450 [facility] Bacteria identified Cx Nom ( U)Ordered By: Dr. Pastor on 09-16-2022 Culture, urine Enterococcus faecalis [facility] Culture, urine Morganella morganii sp morgani [facility] Basophil percentageOrdered B y: Lavon Vicente on 09-16-2022 Basophil percentage 131 mg/dL 74-106 [facility] Basophil percentage 137 mmol/L 136-145 [facility] Basophil percentage 3.5 mmol/L 3.5-5.1 [facility] Basophil percentage 99 mmol/L 98-107 [facility] Basophils (Bld) [#/Vol] 7.9 10*3/uL 4.4-11.0 [facility] Chloride [Moles/Vol] 99 mmol/L 98-107 [facility] Glucose [Mass/Vol] 131 mg/dL 74-106 [facility] Comment on above: Fasting Glucose resu lt greater than or equal to 126 mg/dL suggests DIABETES MELLITUS per A.D.A. criteria. Potassium [Moles/Vol] 3.5 mmol/L 3.5-5.1 [facility] Sodium [Moles/Vol] 137 mmol/L 136-145 [facility] WBC (Bld) [#/Vol] 7.9 10*3/uL 4.4-11.0 [facility] Blood erythrocytes count (nu mber/volume)Ordered By: Lavon Vicente on 09-16-2022 RBC (Bld) [#/Vol] 3.77 10*6/uL 4.2-5.4 [facility] Blood hemoglobin measurement (mass/volume)Ordered By: Lavon Vicente on 09-16-2022 Hemoglobin (Bld) [Mass/Vol] 9.8 g/dL 12.0-15.0 [facility] Blood platelet mean volumeOr dered By: Lavon Vicente on 09-16-2022 Platelet mean volume (Bld) [Entitic vol] 9.1 fL 6.2-12.0 [facility] Culture, urineOrdered By: Dr Kimbelry Pastor on 09-16-2022 Bacteria identified Cx Nom (U) Enterococcus faecalis [facility] Bacteria identified Cx Nom (U) Morganella morganii sp morgani [facility] Determination of erythrocyte mean corpuscular volume (MCV)Ordered By: Lavon Vicente on 09-16-2022 MCV (RBC) [Entitic vol] 89.1 fL 81-99 [facility] Hematocrit Auto (Bld) [Volum e fraction]Ordered By: Lavon Vicente on 09-16-2022 Hematocrit (Bld) [Volume fraction] 33.6 % 37-47 [facility] Laboratory - Chemistry and C hemistry - challengeOrdered By: Lavon Vicente on 09-16-2022 CO2 [Moles/Vol] 32.0 mmol/L 21.0-32.0 [facility] Urea nitrogen/Creatinine [Mass ratio] 21.1 mg/mg 10-20 [facility] Laboratory - Hematology and Cell countsOrdered By: Lavon Vicente on 09-16-2022 Erythrocyte distribution width (RBC) [Entitic vol] 52.0 fL 35.1-43.9 [facility] Erythrocyte distribution width (RBC) [Ratio] 15.8 % 11.6-14.6 [facility] MCH (RBC) [Entitic mass] 26.0 pg 27.0-32.0 [facility] MCHC Auto (RBC) [Mass/Vol]Or dered By: Lavon Vicente on 09-16-2022 MCHC (RBC) [Mass/Vol] 29.2 g/dL 32-36 [facility] No Panel InformationOrdered By: Lavon Vicente on 09-16-2022 Estimated GFR (MDRD) Amer 324 mL/min >60 [facility] Comment on above: GFR Calc Estimated GFR (MDRD) Non-Af Amer 268 mL/min >60 [facility] Comment on above: Non- GFR Calc 26.0 pg 27.0-32.0 [facility] 15.8 % 11.6-14.6 [facility] 52.0 fl 35.1-43.9 [facility] 268 mL/min >60 [facility] [facility] mL/min >60 [facility] 21.1 RATIO 10-20 [facility] 32.0 mmol/L 21.0-32.0 [facility] Platelets bldOrdered By: Estefany Vicente on 09-16-2022 Platelets (Bld) [#/Vol] 304 10*3/uL 150-450 [facility] Serum or plasma calcium miguel angel urement (mass/volume)Ordered By: Lavon Vicente on 09-16-2022 Calcium [Mass/Vol] 8.7 mg/dL 8.5-10.1 [facility] Serum or plasma creatinine m easurement (mass/volume)Ordered By: Lavon Vicente on 09-16-2022 Creatinine [Mass/Vol] 0.28 mg/dL 0.55-1.02 [facility] Comment on above: The validity of the calculated GFR & GFRAA in patients over 70 years has not been determined. Clinical correlation is essential. Serum or plasma urea nitroge n measurement (mass/volume)Ordered By: Lavon Vicente on 09-16-2022 Urea nitrogen [Mass/Vol] 6 mg/dL 7-18 [facility] Thin prep Papanicolaou smear with manual screeningOrdered By: Lavon Vicente on 09-16-2022 Thin prep Papanicolaou smear with manual screening 6 5-15 [facility] Absolute lymphocyte countOrd ered By: Dr. Pastor on 09-14-2022 Lymphocytes Auto (Unsp spec) [#/Vol] 2.16 10*3/uL 0.83-4.51 [facility] Basophil percentageOrdered B y: Dr. Pastor on 09-14-2022 Basophil percentage 117 mg/dL 74-106 [facility] Basophil percentage 6.7 g/dL 6.4-8.2 [facility] Basophil percentage 0.20 mg/dL 0.20-1.00 [facility] Basophil percentage 139 mmol/L 136-145 [facility] Basophil percentage 3.8 mmol/L 3.5-5.1 [facility] Basophil percentage 106 mmol/L 98-107 [facility] Basophils (Bld) [#/Vol] 9.0 10*3/uL 4.4-11.0 [facility] Basophils (Bld) [#/Vol] 5.6 10*3/uL 2.0-7.7 [facility] Basophils/100 WBC (Bld) 0.6 % 0-1 [facility] Basophils/100 WBC (Bld) 62.5 % 47-70 [facility] Basophils/100 WBC (Bld) 4.2 % 0-5 [facility] Bilirubin [Mass/Vol] 0.20 mg/dL 0.20-1.00 [facility] Comment on above: For patients on eltr ombopag therapy, use of Dimension [place] TBIL is not recommended. Chloride [Moles/Vol] 106 mmol/L 98-107 [facility] Eosinophils/100 WBC (Bld) 4.2 % 0-5 [facility] Glucose [Mass/Vol] 117 mg/dL 74-106 [facility] Comment on above: Fasting Glucose resu lt from 100 to 125 mg/dL suggests IMPAIRED HOMEOSTASIS per A.D.A. criteria. Neutrophils (Bld) [#/Vol] 5.6 10*3/uL 2.0-7.7 [facility] Neutrophils/100 WBC (Bld) 62.5 % 47-70 [facility] Potassium [Moles/Vol] 3.8 mmol/L 3.5-5.1 [facility] Protein [Mass/Vol] 6.7 g/dL 6.4-8.2 [facility] Sodium [Moles/Vol] 139 mmol/L 136-145 [facility] WBC (Bld) [#/Vol] 9.0 10*3/uL 4.4-11.0 [facility] Blood erythrocytes count (nu mber/volume)Ordered By: Dr. Pastor on 09-14-2022 RBC (Bld) [#/Vol] 3.86 10*6/uL 4.2-5.4 [facility] Blood hemoglobin measurement (mass/volume)Ordered By: Dr. Pastor on 09-14-2022 Hemoglobin (Bld) [Mass/Vol] 10.1 g/dL 12.0-15.0 [facility] Blood lymphocytes/100 leukoc ytesOrdered By: Dr. Pastor on 09-14-2022 Lymphocytes/100 WBC (Bld) 24.0 % 19-41 [facility] Blood monocytes/100 leukocyt esOrdered By: Dr. Pastor on 09-14-2022 Monocytes/100 WBC (Bld) 8.3 % 0-10 [facility] Blood platelet mean volumeOr dered By: Dr. Pastor on 09-14-2022 Platelet mean volume (Bld) [Entitic vol] 9.2 fL 6.2-12.0 [facility] Determination of erythrocyte mean corpuscular volume (MCV)Ordered By: Dr. Pastor on 09-14-2022 MCV (RBC) [Entitic vol] 89.9 fL 81-99 [facility] Hematocrit Auto (Bld) [Volum e fraction]Ordered By: Dr. Pastor on 09-14-2022 Hematocrit (Bld) [Volume fraction] 34.7 % 37-47 [facility] Laboratory - Chemistry and C hemistry - challengeOrdered By: Dr. Pastor on 09-14-2022 ALP [Catalytic activity/Vol] 73 U/L 45-117 [facility] ALT [Catalytic activity/Vol] 36 U/L 13-56 [facility] CO2 [Moles/Vol] 31.0 mmol/L 21.0-32.0 [facility] Globulin (S) [Mass/Vol] 4.2 g/dL 2.2-4.2 [facility] Urea nitrogen/Creatinine [Mass ratio] 34.8 mg/mg 10-20 [facility] Laboratory - Hematology and Cell countsOrdered By: Dr. Pastor on 09-14-2022 Erythrocyte distribution width (RBC) [Entitic vol] 53.1 fL 35.1-43.9 [facility] Erythrocyte distribution width (RBC) [Ratio] 16.1 % 11.6-14.6 [facility] Immature granulocytes/100 WBC (Bld) 0.400 % 0.0-0.9 [facility] Comment on above: IG% - Immature Granu locytes (promyelocytes, myelocytes and metamyelocytes) > 1% indicates that a LEFT SHIFT is Present. MCH (RBC) [Entitic mass] 26.2 pg 27.0-32.0 [facility] Nucleated RBC/100 WBC (Bld) [Ratio] 0 % 0-5 [facility] MCHC Auto (RBC) [Mass/Vol]Or dered By: Dr. Pastor on 09-14-2022 MCHC (RBC) [Mass/Vol] 29.1 g/dL 32-36 [facility] No Panel InformationOrdered By: Dr. Pastor on 09-14-2022 Estimated Creatinine Clearance Calc 225.72 ml/min [facility] Estimated GFR (MDRD) Amer 414 mL/min >60 [facility] Comment on above: GFR Calc Estimated GFR (MDRD) Non-Af Amer 342 mL/min >60 [facility] Comment on above: Non- GFR Calc 26.2 pg 27.0-32.0 [facility] 16.1 % 11.6-14.6 [facility] 53.1 fl 35.1-43.9 [facility] 0.400 % 0.0-0.9 [facility] 0 % 0-5 [facility] 342 mL/min >60 [facility] 414 mL/min >60 [facility] 225.72 ml/min [facility] 34.8 RATIO 10-20 [facility] 4.2 g/dL 2.2-4.2 [facility] 73 U/L 45-117 [facility] 36 U/L 13-56 [facility] 31.0 mmol/L 21.0-32.0 [facility] Platelets bldOrdered By: Dr. Pastor on 09-14-2022 Platelets (Bld) [#/Vol] 277 10*3/uL 150-450 [facility] Serum or plasma albumin miguel angel urement (mass/volume)Ordered By: Dr. Pastor on 09-14-2022 Albumin [Mass/Vol] 2.5 g/dL 3.2-5.0 [facility] Serum or plasma albumin/glob ulin mass ratioOrdered By: Dr. Pastor on 09-14-2022 Albumin/Globulin [Mass ratio] 0.6 {ratio} 0.9-2.4 [facility] Serum or plasma calcium miguel angel urement (mass/volume)Ordered By: Dr. Pastor on 09-14-2022 Calcium [Mass/Vol] 8.3 mg/dL 8.5-10.1 [facility] Serum or plasma creatinine m easurement (mass/volume)Ordered By: Dr. Pastor on 09-14-2022 Creatinine [Mass/Vol] 0.23 mg/dL 0.55-1.02 [facility] Comment on above: The validity of the calculated GFR & GFRAA in patients over 70 years has not been determined. Clinical correlation is essential. Serum or plasma urea nitroge n measurement (mass/volume)Ordered By: Dr. Pastor on 09-14-2022 Urea nitrogen [Mass/Vol] 8 mg/dL 7-18 [facility] Thin prep Papanicolaou smear with manual screeningOrdered By: Dr. Pastor on 09-14-2022 Thin prep Papanicolaou smear with manual screening 23 U/L 15-37 [facility] Thin prep Papanicolaou smear with manual screening 2 5-15 [facility] No Panel InformationOrdered By: Dr. Pastor on 09-13-2022 Methicillin-Resist S.aureus DNA PCR Positive Negative [facility] Comment on above: RESULTS CALLED TO JOSE CARLOS MORGAN 09/13/22 1[address] Ma[address]olen.REPORT READ BACK BY JOSE MARIA.Copy of report sent to Infection [facility] MS#[id number] [id number] DEST[address]. Positive Negative [facility] Thyroid Stimulating Hormone (TSH) 1.88 uIU/mL 0.358-3.74 [facility] 1.88 uIU/mL 0.358-3.74 [facility] Absolute lymphocyte countOrd ered By: Dr. Aguila on 09-12-2022 Lymphocytes Auto (Unsp spec) [#/Vol] 1.43 10*3/uL 0.83-4.51 [facility] Basophil percentageOrdered B y: Dr. Pastor on 09-12-2022 Basophil percentage 0.9 mmol/L 0.4-2.0 [facility] Lactate [Moles/Vol] 0.9 mmol/L 0.4-2.0 [facility] Basophil percentageOrdered B y: Dr. Aguila on 09-12-2022 Basophil percentage 10-25 SEEN /hpf 0-5 [facility] Basophils/100 WBC (Bld) 0.3 % 0-1 [facility] Chloride [Moles/Vol] 100 mmol/L 98-107 [facility] Eosinophils/100 WBC (Bld) 1.7 % 0-5 [facility] Glucose [Mass/Vol] 141 mg/dL 74-106 [facility] Comment on above: Fasting Glucose resu lt greater than or equal to 126 mg/dL suggests DIABETES MELLITUS per A.D.A. criteria. Neutrophils (Bld) [#/Vol] 14.5 10*3/uL 2.0-7.7 [facility] Neutrophils/100 WBC (Bld) 84.0 % 47-70 [facility] Potassium [Moles/Vol] 3.5 mmol/L 3.5-5.1 [facility] Sodium [Moles/Vol] 136 mmol/L 136-145 [facility] WBC (Bld) [#/Vol] 17.3 10*3/uL 4.4-11.0 [facility] Bilirubin Test strip Ql (U)O rdered By: Dr. Aguila on 09-12-2022 Bilirubin Ql (U) Negative Negative [facility] Blood erythrocytes count (nu mber/volume)Ordered By: Dr. Aguila on 09-12-2022 RBC (Bld) [#/Vol] 4.67 10*6/uL 4.2-5.4 [facility] Blood hemoglobin measurement (mass/volume)Ordered By: Dr. Aguila on 09-12-2022 Hemoglobin (Bld) [Mass/Vol] 12.3 g/dL 12.0-15.0 [facility] Blood lymphocytes/100 leukoc ytesOrdered By: Dr. Aguila on 09-12-2022 Lymphocytes/100 WBC (Bld) 8.3 % 19-41 [facility] Blood monocytes/100 leukocyt esOrdered By: Dr. Aguila on 09-12-2022 Monocytes/100 WBC (Bld) 5.4 % 0-10 [facility] Blood platelet mean volumeOr dered By: Dr. Aguila on 09-12-2022 Platelet mean volume (Bld) [Entitic vol] 9.4 fL 6.2-12.0 [facility] Determination of erythrocyte mean corpuscular volume (MCV)Ordered By: Dr. Aguila on 09-12-2022 MCV (RBC) [Entitic vol] 86.1 fL 81-99 [facility] Hematocrit Auto (Bld) [Volum e fraction]Ordered By: Dr. Aguila on 09-12-2022 Hematocrit (Bld) [Volume fraction] 40.2 % 37-47 [facility] Influenza virus A and B and SARS-CoV-2 (COVID-19) Ag panel - Upper respiratory specimOrdered By: Dr. Aguila on 09-12-2022 SARS-CoV-2 (COVID-19) RNA NBA+probe Ql (Resp) [facility] Ketones Test strip Ql (U)Ord ered By: Dr. Aguila on 09-12-2022 Ketones Ql (U) Negative Negative [facility] Laboratory - Chemistry and C hemistry - challengeOrdered By: Dr. Aguila on 09-12-2022 CO2 [Moles/Vol] 29.0 mmol/L 21.0-32.0 [facility] Natriuretic peptide B (Bld) [Mass/Vol] 45.3 pg/mL 0-100 [facility] Urea nitrogen/Creatinine [Mass ratio] 17.2 mg/mg 10-20 [facility] Laboratory - Hematology and Cell countsOrdered By: Dr. Aguila on 09-12-2022 Erythrocyte distribution width (RBC) [Entitic vol] 50.2 fL 35.1-43.9 [facility] Erythrocyte distribution width (RBC) [Ratio] 15.9 % 11.6-14.6 [facility] Immature granulocytes/100 WBC (Bld) 0.300 % 0.0-0.9 [facility] Comment on above: IG% - Immature Granu locytes (promyelocytes, myelocytes and metamyelocytes) > 1% indicates that a LEFT SHIFT is Present. MCH (RBC) [Entitic mass] 26.3 pg 27.0-32.0 [facility] Nucleated RBC/100 WBC (Bld) [Ratio] 0 % 0-5 [facility] MCHC Auto (RBC) [Mass/Vol]Or dered By: Dr. Aguila on 09-12-2022 MCHC (RBC) [Mass/Vol] 30.6 g/dL 32-36 [facility] Mucus LM Ql (Urine sed)Order ed By: Dr. Aguila on 09-12-2022 Mucus Ql (Urine sed) 0 SEEN /hpf [facility] Nitrite Test strip Ql (U)Ord ered By: Dr. Aguila on 09-12-2022 Nitrite Ql (U) Negative Negative [facility] No Panel InformationOrdered By: Dr. Aguila on 09-12-2022 Troponin I High Sensitivity 7 pg/mL 3.0-54.0 [facility] Comment on above: Please Note: New [place] t Units and Gender Specific Reference Ranges. For more information see Policy Stat Procedure [place] High Sensitivity Troponin (TNIH) and attachments. 7 pg/mL 3.0-54.0 [facility] D-Dimer Quantitative (PE/DVT) 1.11 FEU/ug/m 0.27-0.49 [facility] Comment on above: D-Dimer ELEVATED (>0 .49): Additional studies and clinicalassessments are indicated to conclude diagnosis of:Deep Vein Thrombosis (DVT) or Pulmonary Embolism (PE)CRITICAL VALUE VERIFIED. CALLED TO BALWINDER BETANCOURT09/12/22 1050 Whit Brito.RESULTS READ BACK BY SAME . Estimated Creatinine Clearance Calc 148.33 ml/min [facility] Estimated GFR (MDRD) Amer 256 mL/min >60 [facility] Comment on above: GFR Calc Estimated GFR (MDRD) Non-Af Amer 211 mL/min >60 [facility] Comment on above: Non- GFR Calc 1.11 FEU/ug/m 0.27-0.49 [facility] 45.3 pg/mL 0-100 [facility] Platelets bldOrdered By: Dr. Aguila on 09-12-2022 Platelets (Bld) [#/Vol] 321 10*3/uL 150-450 [facility] Protein Test strip Ql (U)Ord ered By: Dr. Aguila on 09-12-2022 Protein Ql (U) 100 mg/dl Negative [facility] Respiratory pathogens DNA an d RNA 12b panel NBA+probe (Unsp spec)Ordered By: Dr. Pastor on 09-12-2022 Respiratory Panel (PCR) Rhinovirus [facility] Rhinovirus [facility] Serum or plasma calcium miguel angel urement (mass/volume)Ordered By: Dr. Aguila on 09-12-2022 Calcium [Mass/Vol] 9.0 mg/dL 8.5-10.1 [facility] Serum or plasma creatinine m easurement (mass/volume)Ordered By: Dr. Aguila on 09-12-2022 Creatinine [Mass/Vol] 0.35 mg/dL 0.55-1.02 [facility] Comment on above: The validity of the calculated GFR & GFRAA in patients over 70 years has not been determined. Clinical correlation is essential. Serum or plasma urea nitroge n measurement (mass/volume)Ordered By: Dr. Aguila on 09-12-2022 Urea nitrogen [Mass/Vol] 6 mg/dL 7-18 [facility] Serum procalcitonin measurem entOrdered By: Dr. Pastor on 09-12-2022 Procalcitonin [Mass/Vol] 0.15 ng/mL 0.00-0.09 [facility] Comment on above: A procalcitonin [...] Ql (Urine sed) 0 SEEN /hpf 5-10 [facility] Thin prep Papanicolaou smear with manual screeningOrdered By: Dr. Aguila on 09-12-2022 Thin prep Papanicolaou smear with manual screening 7 5-15 [facility] Urine blood detectionOrdered By: Dr. Aguila on 09-12-2022 RBC Ql (U) 250 /ul Negative [facility] RBC Ql (U) > 100 SEEN /hpf 0-5 [facility] Urine clarityOrdered By: Dr. Aguila on 09-12-2022 Clarity (U) Cloudy Clear [facility] Urine color determinationOrd ered By: Dr. Aguila on 09-12-2022 Color (U) Red Yellow [facility] Urine glucose detectionOrder ed By: Dr. Aguila on 09-12-2022 Glucose Ql (U) Normal mg/dl Normal [facility] Urine leukocyte esterase det ection by dipstickOrdered By: Dr. Aguila on 09-12-2022 Leukocyte esterase Test strip Ql (U) 500 /ul Negative [facility] Urine pHOrdered By: Dr. Taiwo rosado on 09-12-2022 pH (U) 8.0 [pH] 5.0 - 8.0 [facility] Urine sediment bacteria coun t by microscopy (number/high power field)Ordered By: Dr. Aguila on 09-12-2022 Bacteria LM.HPF (Urine sed) [#/Area] 2 /[HPF] None Seen [facility] Urine specific gravity measu rementOrdered By: Dr. Aguila on 09-12-2022 Specific gravity (U) [Rel density] 1.015 1.002-1.030 [facility] Urobilinogen Auto test strip Ql (U)Ordered By: Dr. Aguila on 09-12-2022 Urobilinogen Ql (U) Normal mg/dl Normal [facility] Bacteria identified Cx Nom ( U)Ordered By: Dr. Beasley on 07-26-2022 Culture, urine Morganella morganii sp [facility] Culture, urineOrdered By: Dr Kimberly Beasley on 07-26-2022 Bacteria identified Cx Nom (U) Morganella morganii sp [facility] Absolute lymphocyte countOrd ered By: Dr. Beasley on 07-24-2022 Lymphocytes Auto (Unsp spec) [#/Vol] 3.18 10*3/uL 0.83-4.51 [facility] Amorphous sediment detection in urine sediment by light microscopyOrdered By: Dr. Beasley on 07-24-2022 Amorphous sediment LM Ql (Urine sed) 2+ [facility] Basophil percentageOrdered B y: Dr. Beasley on 07-24-2022 Basophil percentage < 10.0 umol/L 11-32 [facility] Basophil percentage 1.4 mmol/L 0.4-2.0 [facility] Basophils (Bld) [#/Vol] 9.7 10*3/uL 4.4-11.0 [facility] Basophils (Bld) [#/Vol] 5.6 10*3/uL 2.0-7.7 [facility] Basophils/100 WBC (Bld) 0.4 % 0-1 [facility] Basophils/100 WBC (Bld) 58.0 % 47-70 [facility] Basophils/100 WBC (Bld) 3.1 % 0-5 [facility] Eosinophils/100 WBC (Bld) 3.1 % 0-5 [facility] Lactate [Moles/Vol] 1.4 mmol/L 0.4-2.0 [facility] Neutrophils (Bld) [#/Vol] 5.6 10*3/uL 2.0-7.7 [facility] Neutrophils/100 WBC (Bld) 58.0 % 47-70 [facility] WBC (Bld) [#/Vol] 9.7 10*3/uL 4.4-11.0 [facility] Basophil percentage 5-10 SEEN /hpf 0-5 [facility] Basophil percentage 128 mg/dL 74-106 [facility] Basophil percentage 9.0 g/dL 6.4-8.2 [facility] Basophil percentage 0.50 mg/dL 0.20-1.00 [facility] Basophil percentage 138 mmol/L 136-145 [facility] Basophil percentage 4.7 mmol/L 3.5-5.1 [facility] Basophil percentage 105 mmol/L 98-107 [facility] Bilirubin [Mass/Vol] 0.50 mg/dL 0.20-1.00 [facility] Comment on above: For patients on eltr ombopag therapy, use of Dimension [place] TBIL is not recommended. Chloride [Moles/Vol] 105 mmol/L 98-107 [facility] Glucose [Mass/Vol] 128 mg/dL 74-106 [facility] Comment on above: Fasting Glucose resu lt greater than or equal to 126 mg/dL suggests DIABETES MELLITUS per A.D.A. criteria. Potassium [Moles/Vol] 4.7 mmol/L 3.5-5.1 [facility] Comment on above: Moderate Hemolysis, Result may be falsely increased. Protein [Mass/Vol] 9.0 g/dL 6.4-8.2 [facility] Sodium [Moles/Vol] 138 mmol/L 136-145 [facility] Bilirubin Test strip Ql (U)O rdered By: Dr. Beasley on 07-24-2022 Bilirubin Ql (U) Negative Negative [facility] Blood erythrocytes count (nu mber/volume)Ordered By: Dr. Beasley on 07-24-2022 RBC (Bld) [#/Vol] 4.90 10*6/uL 4.2-5.4 [facility] Blood hemoglobin measurement (mass/volume)Ordered By: Dr. Beasley on 07-24-2022 Hemoglobin (Bld) [Mass/Vol] 12.9 g/dL 12.0-15.0 [facility] Blood lymphocytes/100 leukoc ytesOrdered By: Dr. Beasley on 07-24-2022 Lymphocytes/100 WBC (Bld) 32.8 % 19-41 [facility] Blood monocytes/100 leukocyt esOrdered By: Dr. Beasley on 07-24-2022 Monocytes/100 WBC (Bld) 5.5 % 0-10 [facility] Blood platelet mean volumeOr dered By: Dr. Beasley on 07-24-2022 Platelet mean volume (Bld) [Entitic vol] 9.0 fL 6.2-12.0 [facility] Determination of erythrocyte mean corpuscular volume (MCV)Ordered By: Dr. Beasley on 07-24-2022 MCV (RBC) [Entitic vol] 86.9 fL 81-99 [facility] Hematocrit Auto (Bld) [Volum e fraction]Ordered By: Dr. Beasley on 07-24-2022 Hematocrit (Bld) [Volume fraction] 42.6 % 37-47 [facility] Ketones Test strip Ql (U)Ord ered By: Dr. Beasley on 07-24-2022 Ketones Ql (U) Negative Negative [facility] Laboratory - Chemistry and C hemistry - challengeOrdered By: Dr. Beasley on 07-24-2022 ALP [Catalytic activity/Vol] 91 U/L 45-117 [facility] ALT [Catalytic activity/Vol] 45 U/L 13-56 [facility] CO2 [Moles/Vol] 25.0 mmol/L 21.0-32.0 [facility] Globulin (S) [Mass/Vol] 5.6 g/dL 2.2-4.2 [facility] Urea nitrogen/Creatinine [Mass ratio] 23.3 mg/mg 10-20 [facility] Laboratory - Hematology and Cell countsOrdered By: Dr. Beasley on 07-24-2022 Erythrocyte distribution width (RBC) [Entitic vol] 49.7 fL 35.1-43.9 [facility] Erythrocyte distribution width (RBC) [Ratio] 15.8 % 11.6-14.6 [facility] Immature granulocytes/100 WBC (Bld) 0.200 % 0.0-0.9 [facility] Comment on above: IG% - Immature Granu locytes (promyelocytes, myelocytes and metamyelocytes) > 1% indicates that a LEFT SHIFT is Present. MCH (RBC) [Entitic mass] 26.3 pg 27.0-32.0 [facility] Nucleated RBC/100 WBC (Bld) [Ratio] 0 % 0-5 [facility] MCHC Auto (RBC) [Mass/Vol]Or dered By: Dr. Beasley on 07-24-2022 MCHC (RBC) [Mass/Vol] 30.3 g/dL 32-36 [facility] Mucus LM Ql (Urine sed)Order ed By: Dr. Beasley on 07-24-2022 Mucus Ql (Urine sed) 0 SEEN /hpf [facility] Nitrite Test strip Ql (U)Ord ered By: Dr. Beasley on 07-24-2022 Nitrite Ql (U) Negative Negative [facility] No Panel InformationOrdered By: Dr. Beasley on 07-24-2022 26.3 pg 27.0-32.0 [facility] 15.8 % 11.6-14.6 [facility] 49.7 fl 35.1-43.9 [facility] 0.200 % 0.0-0.9 [facility] 0 % 0-5 [facility] Estimated Creatinine Clearance Calc 126.71 ml/min [facility] Estimated GFR (MDRD) Amer 227 mL/min >60 [facility] Comment on above: GFR Calc Estimated GFR (MDRD) Non-Af Amer 188 mL/min >60 [facility] Comment on above: Non- GFR Calc 188 mL/min >60 [facility] 227 mL/min >60 [facility] 126.71 ml/min [facility] 23.3 RATIO 10-20 [facility] 5.6 g/dL 2.2-4.2 [facility] 91 U/L 45-117 [facility] 45 U/L 13-56 [facility] 25.0 mmol/L 21.0-32.0 [facility] Platelets bldOrdered By: Dr. Beasley on 07-24-2022 Platelets (Bld) [#/Vol] 349 10*3/uL 150-450 [facility] Protein Test strip Ql (U)Ord ered By: Dr. Beasley on 07-24-2022 Protein Ql (U) 30 mg/dl Negative [facility] Serum or plasma albumin miguel angel urement (mass/volume)Ordered By: Dr. Beasley on 07-24-2022 Albumin [Mass/Vol] 3.4 g/dL 3.2-5.0 [facility] Serum or plasma albumin/glob ulin mass ratioOrdered By: Dr. Beasley on 07-24-2022 Albumin/Globulin [Mass ratio] 0.6 {ratio} 0.9-2.4 [facility] Serum or plasma calcium miguel angel urement (mass/volume)Ordered By: Dr. Beasley on 07-24-2022 Calcium [Mass/Vol] 9.6 mg/dL 8.5-10.1 [facility] Serum or plasma creatinine m easurement (mass/volume)Ordered By: Dr. Beasley on 07-24-2022 Creatinine [Mass/Vol] 0.39 mg/dL 0.55-1.02 [facility] Comment on above: The validity of the calculated GFR & GFRAA in patients over 70 years has not been determined. Clinical correlation is essential. Serum or plasma urea nitroge n measurement (mass/volume)Ordered By: Dr. Beasley on 07-24-2022 Urea nitrogen [Mass/Vol] 9 mg/dL 7-18 [facility] Squamous epithelial cells de tection in urine sediment by light microscopyOrdered By: Dr. Beasley on 07-24-2022 Epithelial cells.squamous LM Ql (Urine sed) 0 SEEN /hpf 5-10 [facility] Thin prep Papanicolaou smear with manual screeningOrdered By: Dr. Beasley on 07-24-2022 Thin prep Papanicolaou smear with manual screening 55 U/L 15-37 [facility] Comment on above: Moderate Hemolysis, Result may be falsely increased. Thin prep Papanicolaou smear with manual screening 8 5-15 [facility] Urine blood detectionOrdered By: Dr. Beasley on 07-24-2022 RBC Ql (U) 150 /ul Negative [facility] RBC Ql (U) 5-10 SEEN /hpf 0-5 [facility] Urine clarityOrdered By: Dr. Beasley on 07-24-2022 Clarity (U) Turbid Clear [facility] Urine color determinationOrd ered By: Dr. Beasley on 07-24-2022 Color (U) Yellow Yellow [facility] Urine glucose detectionOrder ed By: Dr. Beasley on 07-24-2022 Glucose Ql (U) Normal mg/dl Normal [facility] Urine leukocyte esterase det ection by dipstickOrdered By: Dr. Beasley on 07-24-2022 Leukocyte esterase Test strip Ql (U) 500 /ul Negative [facility] Urine pHOrdered By: Dr. Devika stout on 07-24-2022 pH (U) 7.0 [pH] 5.0 - 8.0 [facility] Urine sediment bacteria coun t by microscopy (number/high power field)Ordered By: Dr. Beasley on 07-24-2022 Bacteria LM.HPF (Urine sed) [#/Area] 2 /[HPF] None Seen [facility] Urine specific gravity measu rementOrdered By: Dr. Beasley on 07-24-2022 Specific gravity (U) [Rel density] 1.010 1.002-1.030 [facility] Urobilinogen Auto test strip Ql (U)Ordered By: Dr. Beasley on 07-24-2022 Urobilinogen Ql (U) Normal mg/dl Normal [facility] Culture, urineOrdered By: Cristi Vicente on 07-07-2022 Bacteria identified Cx Nom (U) Morganella morganii sp morgani [facility] Bacteria identified Cx Nom (U) Proteus mirabilis [facility] Bacteria identified Cx Nom (U) Vancomycin Resist. E. faecalis [facility] Bilirubin Test strip Ql (U)O rdered By: Lavon Vicente on 07-02-2022 Bilirubin Ql (U) Negative Negative [facility] Ketones Test strip Ql (U)Ord ered By: Lavon Vicente on 07-02-2022 Ketones Ql (U) Negative Negative [facility] Nitrite Test strip Ql (U)Ord ered By: Lavon Vicente on 07-02-2022 Nitrite Ql (U) Negative Negative [facility] Protein Test strip Ql (U)Ord ered By: Lavon Vicente on 07-02-2022 Protein Ql (U) Negative Negative [facility] Urine blood detectionOrdered By: Lavon Vicente on 07-02-2022 RBC Ql (U) Negative Negative [facility] Urine clarityOrdered By: Estefany Vicente on 07-02-2022 Clarity (U) Clear Clear [facility] Urine color determinationOrd ered By: Lavon Vicente on 07-02-2022 Color (U) Straw Yellow [facility] Urine glucose detectionOrder ed By: Lavon Vicente on 07-02-2022 Glucose Ql (U) Normal mg/dl Normal [facility] Urine leukocyte esterase det ection by dipstickOrdered By: Lavon Vicente on 07-02-2022 Leukocyte esterase Test strip Ql (U) 500 /ul Negative [facility] Urine pHOrdered By: Lavon alcala on 07-02-2022 pH (U) 7.0 [pH] 5.0 - 8.0 [facility] Urine specific gravity measu rementOrdered By: Lavon Vicente on 07-02-2022 Specific gravity (U) [Rel density] 1.005 1.002-1.030 [facility] Urobilinogen Auto test strip Ql (U)Ordered By: Lavon Vicente on 07-02-2022 Urobilinogen Ql (U) Normal mg/dl Normal [facility] Laboratory - Microbiology an d Antimicrobial susceptibilityOrdered By: Dr. River on 06-08-2022 Bacteria identified Cx Nom (Bld) No growth in 5 days. [facility] Absolute lymphocyte countOrd ered By: Dr. Duval on 06-05-2022 Lymphocytes Auto (Unsp spec) [#/Vol] 2.91 10*3/uL 0.83-4.51 [facility] Basophil percentageOrdered B y: Dr. Duval on 06-05-2022 Basophils/100 WBC (Bld) 0.7 % 0-1 [facility] Bilirubin [Mass/Vol] 0.30 mg/dL 0.20-1.00 [facility] Comment on above: For patients on eltr ombopag therapy, use of Dimension [place] TBIL is not recommended. Chloride [Moles/Vol] 104 mmol/L 98-107 [facility] Eosinophils/100 WBC (Bld) 2.8 % 0-5 [facility] Glucose [Mass/Vol] 142 mg/dL 74-106 [facility] Comment on above: Fasting Glucose resu lt greater than or equal to 126 mg/dL suggests DIABETES MELLITUS per A.D.A. criteria. Neutrophils (Bld) [#/Vol] 3.7 10*3/uL 2.0-7.7 [facility] Neutrophils/100 WBC (Bld) 49.7 % 47-70 [facility] Potassium [Moles/Vol] 3.6 mmol/L 3.5-5.1 [facility] Protein [Mass/Vol] 7.4 g/dL 6.4-8.2 [facility] Sodium [Moles/Vol] 138 mmol/L 136-145 [facility] WBC (Bld) [#/Vol] 7.5 10*3/uL 4.4-11.0 [facility] Blood erythrocytes count (nu mber/volume)Ordered By: Dr. Duval on 06-05-2022 RBC (Bld) [#/Vol] 3.84 10*6/uL 4.2-5.4 [facility] Blood hemoglobin measurement (mass/volume)Ordered By: Dr. Duval on 06-05-2022 Hemoglobin (Bld) [Mass/Vol] 10.4 g/dL 12.0-15.0 [facility] Blood lymphocytes/100 leukoc ytesOrdered By: Dr. Duval on 06-05-2022 Lymphocytes/100 WBC (Bld) 38.7 % 19-41 [facility] Blood monocytes/100 leukocyt esOrdered By: Dr. Duval on 06-05-2022 Monocytes/100 WBC (Bld) 7.6 % 0-10 [facility] Blood platelet mean volumeOr dered By: Dr. Duval on 06-05-2022 Platelet mean volume (Bld) [Entitic vol] 8.7 fL 6.2-12.0 [facility] Culture, urineOrdered By: Dr Kimberly River on 06-05-2022 Bacteria identified Cx Nom (U) Proteus mirabilis [facility] Determination of erythrocyte mean corpuscular volume (MCV)Ordered By: Dr. Duval on 06-05-2022 MCV (RBC) [Entitic vol] 87.8 fL 81-99 [facility] Hematocrit Auto (Bld) [Volum e fraction]Ordered By: Dr. Duval on 06-05-2022 Hematocrit (Bld) [Volume fraction] 33.7 % 37-47 [facility] Laboratory - Chemistry and C hemistry - challengeOrdered By: Dr. Duval on 06-05-2022 ALP [Catalytic activity/Vol] 83 U/L 45-117 [facility] ALT [Catalytic activity/Vol] 56 U/L 13-56 [facility] CO2 [Moles/Vol] 27.0 mmol/L 21.0-32.0 [facility] Globulin (S) [Mass/Vol] 4.6 g/dL 2.2-4.2 [facility] Urea nitrogen/Creatinine [Mass ratio] 20.1 mg/mg 10-20 [facility] Laboratory - Hematology and Cell countsOrdered By: Dr. Duval on 06-05-2022 Erythrocyte distribution width (RBC) [Entitic vol] 50.2 fL 35.1-43.9 [facility] Erythrocyte distribution width (RBC) [Ratio] 15.7 % 11.6-14.6 [facility] Immature granulocytes/100 WBC (Bld) 0.500 % 0.0-0.9 [facility] Comment on above: IG% - Immature Granu locytes (promyelocytes, myelocytes and metamyelocytes) > 1% indicates that a LEFT SHIFT is Present. MCH (RBC) [Entitic mass] 27.1 pg 27.0-32.0 [facility] Nucleated RBC/100 WBC (Bld) [Ratio] 0.3 % 0-5 [facility] MCHC Auto (RBC) [Mass/Vol]Or dered By: Dr. Duval on 06-05-2022 MCHC (RBC) [Mass/Vol] 30.9 g/dL 32-36 [facility] No Panel InformationOrdered By: Dr. Duval on 06-05-2022 Estimated Creatinine Clearance Calc 109.82 ml/min [facility] Estimated GFR (MDRD) Amer 192 mL/min >60 [facility] Comment on above: GFR Calc Estimated GFR (MDRD) Non-Af Amer 159 mL/min >60 [facility] Comment on above: Non- GFR Calc Platelets bldOrdered By: Dr. Duval on 06-05-2022 Platelets (Bld) [#/Vol] 313 10*3/uL 150-450 [facility] Serum or plasma albumin miguel angel urement (mass/volume)Ordered By: Dr. Duval on 06-05-2022 Albumin [Mass/Vol] 2.8 g/dL 3.2-5.0 [facility] Serum or plasma albumin/glob ulin mass ratioOrdered By: Dr. Duval on 06-05-2022 Albumin/Globulin [Mass ratio] 0.6 {ratio} 0.9-2.4 [facility] Serum or plasma calcium miguel angel urement (mass/volume)Ordered By: Dr. Duval on 06-05-2022 Calcium [Mass/Vol] 8.7 mg/dL 8.5-10.1 [facility] Serum or plasma creatinine m easurement (mass/volume)Ordered By: Dr. Duval on 06-05-2022 Creatinine [Mass/Vol] 0.45 mg/dL 0.55-1.02 [facility] Comment on above: The validity of the calculated GFR & GFRAA in patients over 70 years has not been determined. Clinical correlation is essential. Serum or plasma urea nitroge n measurement (mass/volume)Ordered By: Dr. Duval on 06-05-2022 Urea nitrogen [Mass/Vol] 9 mg/dL 7-18 [facility] Thin prep Papanicolaou smear with manual screeningOrdered By: Dr. Duval on 06-05-2022 Thin prep Papanicolaou smear with manual screening 27 U/L 15-37 [facility] Thin prep Papanicolaou smear with manual screening 7 5-15 [facility] Absolute lymphocyte counton 06-03-2022 Lymphocytes Auto (Unsp spec) [#/Vol] 2.86 10*3/uL 0.83-4.51 [facility] Work Phone: Amorphous sediment detection in urine sediment by light microscopyOrdered By: Dr. River on 06-03-2022 Amorphous sediment LM Ql (Urine sed) 2+ [facility] Basophil percentageOrdered B y: Dr. River on 06-03-2022 Basophil percentage >100 SEEN /hpf 0-5 [facility] Lactate [Moles/Vol] 0.8 mmol/L 0.4-2.0 [facility] Basophil percentageon 2021 Basophils/100 WBC (Bld) 0.5 % 0-1 [facility] Work Phone: Bilirubin [Mass/Vol] 0.20 mg/dL 0.20-1.00 [facility] Work Phone: Comment on above: For patients on eltr ombopag therapy, use of Dimension [place] TBIL is not recommended. Chloride [Moles/Vol] 102 mmol/L 98-107 [facility] Work Phone: Eosinophils/100 WBC (Bld) 3.7 % 0-5 [facility] Work Phone: Glucose [Mass/Vol] 127 mg/dL 74-106 [facility] Work Phone: Comment on above: Fasting Glucose resu lt greater than or equal to 126 mg/dL suggests DIABETES MELLITUS per A.D.A. criteria. Neutrophils (Bld) [#/Vol] 4.1 10*3/uL 2.0-7.7 [facility] Work Phone: Neutrophils/100 WBC (Bld) 52.3 % 47-70 [facility] Work Phone: Potassium [Moles/Vol] 3.8 mmol/L 3.5-5.1 [facility] Work Phone: [phone] Comment on above: Slight Hemolysis, Re sult may be falsely increased. Protein [Mass/Vol] 7.6 g/dL 6.4-8.2 [facility] Work Phone: Sodium [Moles/Vol] 138 mmol/L 136-145 [facility] Work Phone: WBC (Bld) [#/Vol] 7.9 10*3/uL 4.4-11.0 [facility] Work Phone: Bilirubin Test strip Ql (U)O rdered By: Dr. River on 06-03-2022 Bilirubin Ql (U) 3 mg/dL Negative [facility] Comment on above: COLOR OF URINE MAY A FFECT DIPSTICK RESULTS. Blood erythrocytes count (nu mber/volume)on 06-03-2022 RBC (Bld) [#/Vol] 4.04 10*6/uL 4.2-5.4 [facility] Work Phone: Blood hemoglobin measurement (mass/volume)on 06-03-2022 Hemoglobin (Bld) [Mass/Vol] 10.7 g/dL 12.0-15.0 [facility] Work Phone: Blood lymphocytes/100 leukoc yteson 06-03-2022 Lymphocytes/100 WBC (Bld) 36.2 % 19-41 [facility] Work Phone: Blood monocytes/100 leukocyt eson 06-03-2022 Monocytes/100 WBC (Bld) 6.8 % 0-10 [facility] Work Phone: [phone] Blood platelet mean volumeon 06-03-2022 Platelet mean volume (Bld) [Entitic vol] 8.8 fL 6.2-12.0 [facility] Work Phone: [phone] Determination of erythrocyte mean corpuscular volume (MCV)on 06-03-2022 MCV (RBC) [Entitic vol] 87.4 fL 81-99 [facility] Work Phone: [phone] Hematocrit Auto (Bld) [Volum e fraction]on 06-03-2022 Hematocrit (Bld) [Volume fraction] 35.3 % 37-47 [facility] Work Phone: [phone] INR in Blood by Coagulation assayOrdered By: Dr. River on 06-03-2022 INR Coag (Bld) [Relative time] 1.2 {INR} [facility] Influenza virus A and B and SARS-CoV-2 (COVID-19) Ag panel - Upper respiratory specimOrdered By: Dr. River on 06-03-2022 SARS-CoV-2 (COVID-19) RNA NBA+probe Ql (Resp) [facility] Ketones Test strip Ql (U)Ord ered By: Dr. River on 06-03-2022 Ketones Ql (U) 15 mg/dl Negative [facility] Laboratory - Chemistry and C hemistry - challengeon 06-03-2022 ALP [Catalytic activity/Vol] 96 U/L 45-117 [facility] Work Phone: [phone] ALT [Catalytic activity/Vol] 69 U/L 13-56 [facility] Work Phone: [phone] CO2 [Moles/Vol] 31.0 mmol/L 21.0-32.0 [facility] Work Phone: [phone] Globulin (S) [Mass/Vol] 4.7 g/dL 2.2-4.2 [facility] Work Phone: [phone] Urea nitrogen/Creatinine [Mass ratio] 49.4 mg/mg 10-20 [facility] Work Phone: [phone] Laboratory - CoagulationOrde red By: Dr. River on 06-03-2022 aPTT Coag (Bld) [Time] 34.1 s 24.1-36.2 [facility] PT Coag (PPP) [Time] 14.6 s 11.7-14.9 [facility] Laboratory - Hematology and Cell countson 06-03-2022 Erythrocyte distribution width (RBC) [Entitic vol] 50.6 fL 35.1-43.9 [facility] Work Phone: Erythrocyte distribution width (RBC) [Ratio] 15.8 % 11.6-14.6 [facility] Work Phone: Immature granulocytes/100 WBC (Bld) 0.500 % 0.0-0.9 [facility] Work Phone: Comment on above: IG% - Immature Granu locytes (promyelocytes, myelocytes and metamyelocytes) > 1% indicates that a LEFT SHIFT is Present. MCH (RBC) [Entitic mass] 26.5 pg 27.0-32.0 [facility] Work Phone: Nucleated RBC/100 WBC (Bld) [Ratio] 0 % 0-5 [facility] Work Phone: MCHC Auto (RBC) [Mass/Vol]on 06-03-2022 MCHC (RBC) [Mass/Vol] 30.3 g/dL 32-36 [facility] Work Phone: Magnesium ammonium phosphate crystal detectionOrdered By: Dr. River on 06-03-2022 Triple phosphate crystals LM Ql (Urine sed) 1+ /hpf [facility] Mucus LM Ql (Urine sed)Order ed By: Dr. River on 06-03-2022 Mucus Ql (Urine sed) 0 SEEN /hpf [facility] Nitrite Test strip Ql (U)Ord ered By: Dr. River on 06-03-2022 Nitrite Ql (U) Positive Negative [facility] No Panel InformationOrdered By: Dr. River on 06-03-2022 Urine Transitional Epithelial Cells 0-5 SEEN /hpf 0-5 [facility] No Panel Informationon 06-03 Estimated Creatinine Clearance Calc 142.28 ml/min [facility] Work Phone: Estimated GFR (MDRD) Amer 216 mL/min >60 [facility] Work Phone: Comment on above: GFR Calc Estimated GFR (MDRD) Non-Af Amer 178 mL/min >60 [facility] Work Phone: Comment on above: Non- GFR Calc Platelets bldon 06-03-2022 Platelets (Bld) [#/Vol] 363 10*3/uL 150-450 [facility] Work Phone: Protein Test strip Ql (U)Ord ered By: Dr. River on 06-03-2022 Protein Ql (U) 100 mg/dl Negative [facility] Serum or plasma albumin miguel angel urement (mass/volume)on 06-03-2022 Albumin [Mass/Vol] 2.9 g/dL 3.2-5.0 [facility] Work Phone: Serum or plasma albumin/glob ulin mass ratioon 06-03-2022 Albumin/Globulin [Mass ratio] 0.6 {ratio} 0.9-2.4 [facility] Work Phone: Serum or plasma calcium miguel angel urement (mass/volume)on 06-03-2022 Calcium [Mass/Vol] 8.7 mg/dL 8.5-10.1 [facility] Work Phone: Serum or plasma creatinine m easurement (mass/volume)on 06-03-2022 Creatinine [Mass/Vol] 0.40 mg/dL 0.55-1.02 [facility] Work Phone: Comment on above: The validity of the calculated GFR & GFRAA in patients over 70 years has not been determined. Clinical correlation is essential. Serum or plasma urea nitroge n measurement (mass/volume)on 06-03-2022 Urea nitrogen [Mass/Vol] 20 mg/dL 7-18 [facility] Work Phone: Squamous epithelial cells de tection in urine sediment by light microscopyOrdered By: Dr. River on 06-03-2022 Epithelial cells.squamous LM Ql (Urine sed) 0-5 SEEN /hpf 5-10 [facility] Thin prep Papanicolaou smear with manual screeningon 06-03-2022 Thin prep Papanicolaou smear with manual screening 39 U/L 15-37 [facility] Work Phone: Comment on above: Slight Hemolysis, Re sult may be falsely increased. Thin prep Papanicolaou smear with manual screening 5 5-15 [facility] Work Phone: Urine blood detectionOrdered By: Dr. River on 06-03-2022 RBC Ql (U) 150 /ul Negative [facility] RBC Ql (U) 10-25 SEEN /hpf 0-5 [facility] Urine clarityOrdered By: Dr. River on 06-03-2022 Clarity (U) Cloudy Clear [facility] Urine color determinationOrd ered By: Dr. River on 06-03-2022 Color (U) Yellow Yellow [facility] Urine glucose detectionOrder ed By: Dr. River on 06-03-2022 Glucose Ql (U) Normal mg/dl Normal [facility] Urine leukocyte esterase det ection by dipstickOrdered By: Dr. River on 06-03-2022 Leukocyte esterase Test strip Ql (U) 500 /ul Negative [facility] Urine pHOrdered By: Dr. Janae payton on 06-03-2022 pH (U) 7.0 [pH] 5.0 - 8.0 [facility] Urine sediment bacteria coun t by microscopy (number/high power field)Ordered By: Dr. River on 06-03-2022 Bacteria LM.HPF (Urine sed) [#/Area] 4 /[HPF] None Seen [facility] Urine sediment renal epithel ial cell count by microscopy (number/high power field)Ordered By: Dr. River on 06-03-2022 Epithelial cells.renal LM.HPF (Urine sed) [#/Area] 0 /[HPF] 0-5 [facility] Urine specific gravity measu rementOrdered By: Dr. River on 06-03-2022 Specific gravity (U) [Rel density] 1.015 1.002-1.030 [facility] Urobilinogen Auto test strip Ql (U)Ordered By: Dr. River on 06-03-2022 Urobilinogen Ql (U) 4 mg/dl Normal [facility] Culture, urineOrdered By: Cristi Vicente on 04-01-2022 Bacteria identified Cx Nom (U) Proteus mirabilis [facility] Basophil percentageOrdered B y: Lavon Vicente on 03-27-2022 Basophil percentage 10-25 SEEN /hpf 0-5 [facility] Bilirubin Test strip Ql (U)O rdered By: Lavon Vicente on 03-27-2022 Bilirubin Ql (U) Negative Negative [facility] Ketones Test strip Ql (U)Ord ered By: Lavon Vicente on 03-27-2022 Ketones Ql (U) Negative Negative [facility] Magnesium ammonium phosphate crystal detectionOrdered By: Lavon Vicente on 03-27-2022 Triple phosphate crystals LM Ql (Urine sed) 3+ /hpf [facility] Mucus LM Ql (Urine sed)Order ed By: Lavon Vicente on 03-27-2022 Mucus Ql (Urine sed) 0 SEEN /hpf [facility] Nitrite Test strip Ql (U)Ord ered By: Lavon Vicente on 03-27-2022 Nitrite Ql (U) Positive Negative [facility] Protein Test strip Ql (U)Ord ered By: Lavon Vicente on 03-27-2022 Protein Ql (U) 30 mg/dl Negative [facility] Squamous epithelial cells de tection in urine sediment by light microscopyOrdered By: Lavon Vicente on 03-27-2022 Epithelial cells.squamous LM Ql (Urine sed) 0-5 SEEN /hpf 5-10 [facility] Urine blood detectionOrdered By: Lavon Vicente on 03-27-2022 RBC Ql (U) 250 /ul Negative [facility] RBC Ql (U) 10-25 SEEN /hpf 0-5 [facility] Urine clarityOrdered By: Estefany Vicente on 03-27-2022 Clarity (U) Cloudy Clear [facility] Urine color determinationOrd ered By: Lavon Vicente on 03-27-2022 Color (U) Yellow Yellow [facility] Urine glucose detectionOrder ed By: Lavon Vicente on 03-27-2022 Glucose Ql (U) Normal mg/dl Normal [facility] Urine leukocyte esterase det ection by dipstickOrdered By: Lavon Vicente on 03-27-2022 Leukocyte esterase Test strip Ql (U) 500 /ul Negative [facility] Urine pHOrdered By: Lavon alcala on 03-27-2022 pH (U) 8.0 [pH] 5.0 - 8.0 [facility] Urine sediment bacteria coun t by microscopy (number/high power field)Ordered By: Lavon Vicente on 03-27-2022 Bacteria LM.HPF (Urine sed) [#/Area] 4 /[HPF] None Seen [facility] Urine specific gravity measu rementOrdered By: Lavon Vicente on 03-27-2022 Specific gravity (U) [Rel density] 1.010 1.002-1.030 [facility] Urobilinogen Auto test strip Ql (U)Ordered By: Lavon Vicente on 03-27-2022 Urobilinogen Ql (U) Normal mg/dl Normal [facility] Iron measurement (mass/mass) on 03-18-2022 Iron (Unsp spec) [Mass/Mass] 45 ug/dL 50-170 [facility] Work Phone: No Panel Informationon 03-18 Total Iron Binding Capacity 281 ug/dL 250-450 [facility] Work Phone: Serum or plasma iron saturat ion measurement (mass fraction)on 03-18-2022 Iron saturation [Mass fraction] 16.0 % 15.0-55.0 [facility] Work Phone: Basophil percentageon 2021 Basophil percentage 25-50 SEEN /hpf 0-5 [facility] Work Phone: Bilirubin Test strip Ql (U)o n 02-27-2022 Bilirubin Ql (U) Negative Negative [facility] Work Phone: Ketones Test strip Ql (U)on 02-27-2022 Ketones Ql (U) Negative Negative [facility] Work Phone: Mucus LM Ql (Urine sed)on Mucus Ql (Urine sed) 0 SEEN /hpf [facility] Work Phone: Nitrite Test strip Ql (U)on 02-27-2022 Nitrite Ql (U) Negative Negative [facility] Work Phone: Protein Test strip Ql (U)on 02-27-2022 Protein Ql (U) 15 mg/dl Negative [facility] Work Phone: Squamous epithelial cells de tection in urine sediment by light microscopyon 02-27-2022 Epithelial cells.squamous LM Ql (Urine sed) 0-5 SEEN /hpf 5-10 [facility] Work Phone: Urine blood detectionon 02-12 RBC Ql (U) 250 /ul Negative [facility] Work Phone: RBC Ql (U) 25-50 SEEN /hpf 0-5 [facility] Work Phone: Urine clarityon 02-27-2022 Clarity (U) Sl. Cloudy Clear [facility] Work Phone: Urine color determinationon 02-27-2022 Color (U) Yellow Yellow [facility] Work Phone: Urine glucose detectionon Glucose Ql (U) Normal mg/dl Normal [facility] Work Phone: Urine leukocyte esterase det ection by dipstickon 02-27-2022 Leukocyte esterase Test strip Ql (U) 500 /ul Negative [facility] Work Phone: Urine pHon 02-27-2022 pH (U) 8.0 [pH] 5.0 - 8.0 [facility] Work Phone: Urine sediment bacteria coun t by microscopy (number/high power field)on 02-27-2022 Bacteria LM.HPF (Urine sed) [#/Area] 1 /[HPF] None Seen [facility] Work Phone: Urine specific gravity measu rementon 02-27-2022 Specific gravity (U) [Rel density] 1.010 1.002-1.030 [facility] Work Phone: Urobilinogen Auto test strip Ql (U)on 02-27-2022 Urobilinogen Ql (U) Normal mg/dl Normal [facility] Work Phone: Basophil percentageon 2021 Chloride [Moles/Vol] 103 mmol/L 98-107 [facility] Work Phone: Glucose [Mass/Vol] 191 mg/dL 74-106 [facility] Work Phone: Comment on above: Fasting Glucose resu lt greater than or equal to 126 mg/dL suggests DIABETES MELLITUS per A.D.A. criteria. Potassium [Moles/Vol] 3.8 mmol/L 3.5-5.1 [facility] Work Phone: Sodium [Moles/Vol] 140 mmol/L 136-145 [facility] Work Phone: [phone] WBC (Bld) [#/Vol] 6.8 10*3/uL 4.4-11.0 [facility] Work Phone: Blood erythrocytes count (nu mber/volume)on 02-19-2022 RBC (Bld) [#/Vol] 4.10 10*6/uL 4.2-5.4 [facility] Work Phone: Blood hemoglobin measurement (mass/volume)on 02-19-2022 Hemoglobin (Bld) [Mass/Vol] 11.3 g/dL 12.0-15.0 [facility] Work Phone: Blood platelet mean volumeon 02-19-2022 Platelet mean volume (Bld) [Entitic vol] 9.2 fL 6.2-12.0 [facility] Work Phone: [phone] Determination of erythrocyte mean corpuscular volume (MCV)on 02-19-2022 MCV (RBC) [Entitic vol] 90.2 fL 81-99 [facility] Work Phone: [phone] Hematocrit Auto (Bld) [Volum e fraction]on 02-19-2022 Hematocrit (Bld) [Volume fraction] 37.0 % 37-47 [facility] Work Phone: Laboratory - Chemistry and C hemistry - challengeon 02-19-2022 CO2 [Moles/Vol] 29.0 mmol/L 21.0-32.0 [facility] Work Phone: Urea nitrogen/Creatinine [Mass ratio] 24.0 mg/mg 10-20 [facility] Work Phone: [phone] Laboratory - Hematology and Cell countson 02-19-2022 Erythrocyte distribution width (RBC) [Entitic vol] 52.4 fL 35.1-43.9 [facility] Work Phone: [phone] Erythrocyte distribution width (RBC) [Ratio] 16.0 % 11.6-14.6 [facility] Work Phone: MCH (RBC) [Entitic mass] 27.6 pg 27.0-32.0 [facility] Work Phone: [phone] MCHC Auto (RBC) [Mass/Vol]on 02-19-2022 MCHC (RBC) [Mass/Vol] 30.5 g/dL 32-36 [facility] Work Phone: No Panel Informationon 02-19 Estimated GFR (MDRD) Amer 187 mL/min >60 [facility] Work Phone: Comment on above: GFR Calc Estimated GFR (MDRD) Non-Af Amer 154 mL/min >60 [facility] Work Phone: Comment on above: Non- GFR Calc Thyroid Stimulating Hormone (TSH) 2.26 uIU/mL 0.358-3.74 [facility] Work Phone: [phone] Vitamin D 25-Hydroxy 32.3 ng/mL [facility] Work Phone: Comment on above: Vitamin D 25(OH) Sta tus Range Deficiency <20 ng/mL (50nmol/L) Insufficiency 20 - 30 ng/mL (50 - 75 nmol/L) Sufficiency 30 - 100 ng/mL (75 - 250 nmol/L) Toxicity >100 ng/mL (>250 nmol/L) Platelets bldon 02-19-2022 Platelets (Bld) [#/Vol] 301 10*3/uL 150-450 [facility] Work Phone: Serum or plasma calcium miguel angel urement (mass/volume)on 02-19-2022 Calcium [Mass/Vol] 8.8 mg/dL 8.5-10.1 [facility] Work Phone: Serum or plasma creatinine m easurement (mass/volume)on 02-19-2022 Creatinine [Mass/Vol] 0.46 mg/dL 0.55-1.02 [facility] Work Phone: Comment on above: The validity of the calculated GFR & GFRAA in patients over 70 years has not been determined. Clinical correlation is essential. Serum or plasma urea nitroge n measurement (mass/volume)on 02-19-2022 Urea nitrogen [Mass/Vol] 11 mg/dL 7-18 [facility] Work Phone: Thin prep Papanicolaou smear with manual screeningon 02-19-2022 Thin prep Papanicolaou smear with manual screening 8 5-15 [facility] Work Phone: Basophil percentageon 2021 Basophil percentage 25-50 SEEN /hpf 0-5 [facility] Work Phone: Bilirubin Test strip Ql (U)o n 01-13-2022 Bilirubin Ql (U) 3 mg/dL Negative [facility] Work Phone: Comment on above: COLOR OF URINE MAY A FFECT DIPSTICK RESULTS. Ketones Test strip Ql (U)on 01-13-2022 Ketones Ql (U) Negative Negative [facility] Work Phone: Magnesium ammonium phosphate crystal detectionon 01-13-2022 Triple phosphate crystals LM Ql (Urine sed) 2+ /hpf [facility] Work Phone: Mucus LM Ql (Urine sed)on Mucus Ql (Urine sed) 0 SEEN /hpf [facility] Work Phone: Nitrite Test strip Ql (U)on 01-13-2022 Nitrite Ql (U) Positive Negative [facility] Work Phone: [phone] Protein Test strip Ql (U)on 01-13-2022 Protein Ql (U) 15 mg/dl Negative [facility] Work Phone: Squamous epithelial cells de tection in urine sediment by light microscopyon 01-13-2022 Epithelial cells.squamous LM Ql (Urine sed) 0 SEEN /hpf 5-10 [facility] Work Phone: Urine blood detectionon 08-0 RBC Ql (U) 50 /ul Negative [facility] Work Phone: [phone] RBC Ql (U) 0-5 SEEN /hpf 0-5 [facility] Work Phone: Urine clarityon 01-13-2022 Clarity (U) Sl. Cloudy Clear [facility] Work Phone: Urine color determinationon 01-13-2022 Color (U) Yellow Yellow [facility] Work Phone: Urine glucose detectionon Glucose Ql (U) Normal mg/dl Normal [facility] Work Phone: Urine leukocyte esterase det ection by dipstickon 01-13-2022 Leukocyte esterase Test strip Ql (U) 500 /ul Negative [facility] Work Phone: Urine pHon 01-13-2022 pH (U) 8.0 [pH] 5.0 - 8.0 [facility] Work Phone: Urine sediment bacteria coun t by microscopy (number/high power field)on 01-13-2022 Bacteria LM.HPF (Urine sed) [#/Area] 1 /[HPF] None Seen [facility] Work Phone: Urine specific gravity measu rementon 01-13-2022 Specific gravity (U) [Rel density] 1.010 1.002-1.030 [facility] Work Phone: Urobilinogen Auto test strip Ql (U)on 01-13-2022 Urobilinogen Ql (U) 4 mg/dl Normal [facility] Work Phone: Basophil percentageon 2021 Basophil percentage 0-5 SEEN /hpf 0-5 [facility] Work Phone: Bilirubin Test strip Ql (U)o n 12-24-2021 Bilirubin Ql (U) Negative Negative [facility] Work Phone: Ketones Test strip Ql (U)on 12-24-2021 Ketones Ql (U) Negative Negative [facility] Work Phone: Mucus LM Ql (Urine sed)on Mucus Ql (Urine sed) 0 SEEN /hpf [facility] Work Phone: Nitrite Test strip Ql (U)on 12-24-2021 Nitrite Ql (U) Negative Negative [facility] Work Phone: Protein Test strip Ql (U)on 12-24-2021 Protein Ql (U) 30 mg/dl Negative [facility] Work Phone: Squamous epithelial cells de tection in urine sediment by light microscopyon 12-24-2021 Epithelial cells.squamous LM Ql (Urine sed) 0-5 SEEN /hpf 5-10 [facility] Work Phone: Urine blood detectionon 12-12 RBC Ql (U) 50 /ul Negative [facility] Work Phone: RBC Ql (U) 0-5 SEEN /hpf 0-5 [facility] Work Phone: Urine clarityon 12-24-2021 Clarity (U) Sl. Cloudy Clear [facility] Work Phone: Urine color determinationon 12-24-2021 Color (U) Yellow Yellow [facility] Work Phone: Urine glucose detectionon Glucose Ql (U) Normal mg/dl Normal [facility] Work Phone: Urine leukocyte esterase det ection by dipstickon 12-24-2021 Leukocyte esterase Test strip Ql (U) 500 /ul Negative [facility] Work Phone: Urine pHon 12-24-2021 pH (U) 7.0 [pH] 5.0 - 8.0 [facility] Work Phone: Urine sediment bacteria coun t by microscopy (number/high power field)on 12-24-2021 Bacteria LM.HPF (Urine sed) [#/Area] 0 /[HPF] None Seen [facility] Work Phone: Urine specific gravity measu rementon 12-24-2021 Specific gravity (U) [Rel density] 1.010 1.002-1.030 [facility] Work Phone: Urobilinogen Auto test strip Ql (U)on 12-24-2021 Urobilinogen Ql (U) Normal mg/dl Normal [facility] Work Phone: Iron measurement (mass/mass) on 11-24-2021 Iron (Unsp spec) [Mass/Mass] 59 ug/dL 50-170 [facility] Work Phone: No Panel Informationon 11-24 Total Iron Binding Capacity 294 ug/dL 250-450 [facility] Work Phone: Serum or plasma ferritin shantel surement (mass/volume)on 11-24-2021 Ferritin [Mass/Vol] 90 ng/mL 8-252 [facility] Work Phone: Amorphous sediment detection in urine sediment by light microscopyon 10-27-2021 Amorphous sediment LM Ql (Urine sed) 2+ [facility] Work Phone: Basophil percentageon 2021 Basophil percentage 10-25 SEEN /hpf 0-5 [facility] Work Phone: Bilirubin Test strip Ql (U)o n 10-27-2021 Bilirubin Ql (U) Negative Negative [facility] Work Phone: Culture, urineon 10-27-2021 Bacteria identified Cx Nom (U) Proteus mirabilis [facility] Work Phone: Ketones Test strip Ql (U)on 10-27-2021 Ketones Ql (U) Negative Negative [facility] Work Phone: Magnesium ammonium phosphate crystal detectionon 10-27-2021 Triple phosphate crystals LM Ql (Urine sed) 1+ /hpf [facility] Work Phone: Mucus LM Ql (Urine sed)on Mucus Ql (Urine sed) 0 SEEN /hpf [facility] Work Phone: Nitrite Test strip Ql (U)on 10-27-2021 Nitrite Ql (U) Positive Negative [facility] Work Phone: Protein Test strip Ql (U)on 10-27-2021 Protein Ql (U) 15 mg/dl Negative [facility] Work Phone: Squamous epithelial cells de tection in urine sediment by light microscopyon 10-27-2021 Epithelial cells.squamous LM Ql (Urine sed) 0-5 SEEN /hpf 5-10 [facility] Work Phone: Urine blood detectionon 10-12 RBC Ql (U) 25 /ul Negative [facility] Work Phone: RBC Ql (U) 0 SEEN /hpf 0-5 [facility] Work Phone: Urine clarityon 10-27-2021 Clarity (U) Cloudy Clear [facility] Work Phone: Urine color determinationon 10-27-2021 Color (U) Yellow Yellow [facility] Work Phone: Urine glucose detectionon Glucose Ql (U) Normal mg/dl Normal [facility] Work Phone: Urine leukocyte esterase det ection by dipstickon 10-27-2021 Leukocyte esterase Test strip Ql (U) 500 /ul Negative [facility] Work Phone: Urine pHon 10-27-2021 pH (U) 8.0 [pH] 5.0 - 8.0 [facility] Work Phone: Urine sediment bacteria coun t by microscopy (number/high power field)on 10-27-2021 Bacteria LM.HPF (Urine sed) [#/Area] 2 /[HPF] None Seen [facility] Work Phone: Urine specific gravity measu rementon 10-27-2021 Specific gravity (U) [Rel density] 1.010 1.002-1.030 [facility] Work Phone: Urobilinogen Auto test strip Ql (U)on 10-27-2021 Urobilinogen Ql (U) Normal mg/dl Normal [facility] Work Phone: Basophil percentageon 2021 Chloride [Moles/Vol] 106 mmol/L 98-107 [facility] Work Phone: Glucose [Mass/Vol] 120 mg/dL 74-106 [facility] Work Phone: Comment on above: Fasting Glucose resu lt from 100 to 125 mg/dL suggests IMPAIRED HOMEOSTASIS per A.D.A. criteria. Potassium [Moles/Vol] 3.7 mmol/L 3.5-5.1 [facility] Work Phone: Sodium [Moles/Vol] 138 mmol/L 136-145 [facility] Work Phone: WBC (Bld) [#/Vol] 9.0 10*3/uL 4.4-11.0 [facility] Work Phone: Blood erythrocytes count (nu mber/volume)on 08-21-2021 RBC (Bld) [#/Vol] 3.98 10*6/uL 4.2-5.4 [facility] Work Phone: Blood hemoglobin measurement (mass/volume)on 08-21-2021 Hemoglobin (Bld) [Mass/Vol] 11.3 g/dL 12.0-15.0 [facility] Work Phone: [phone] Blood platelet mean volumeon 08-21-2021 Platelet mean volume (Bld) [Entitic vol] 8.9 fL 6.2-12.0 [facility] Work Phone: [phone] Determination of erythrocyte mean corpuscular volume (MCV)on 08-21-2021 MCV (RBC) [Entitic vol] 91.5 fL 81-99 [facility] Work Phone: [phone] Hematocrit Auto (Bld) [Volum e fraction]on 08-21-2021 Hematocrit (Bld) [Volume fraction] 36.4 % 37-47 [facility] Work Phone: Laboratory - Chemistry and C hemistry - challengeon 08-21-2021 CO2 [Moles/Vol] 28.0 mmol/L 21.0-32.0 [facility] Work Phone: Urea nitrogen/Creatinine [Mass ratio] 38.8 mg/mg 10-20 [facility] Work Phone: [phone] Laboratory - Hematology and Cell countson 08-21-2021 Erythrocyte distribution width (RBC) [Entitic vol] 51.8 fL 35.1-43.9 [facility] Work Phone: Erythrocyte distribution width (RBC) [Ratio] 15.7 % 11.6-14.6 [facility] Work Phone: MCH (RBC) [Entitic mass] 28.4 pg 27.0-32.0 [facility] Work Phone: MCHC Auto (RBC) [Mass/Vol]on 08-21-2021 MCHC (RBC) [Mass/Vol] 31.0 g/dL 32-36 [facility] Work Phone: No Panel Informationon 08-21 Estimated GFR (MDRD) Amer 269 mL/min >60 [facility] Work Phone: Comment on above: GFR Calc Estimated GFR (MDRD) Non-Af Amer 223 mL/min >60 [facility] Work Phone: Comment on above: Non- GFR Calc Thyroid Stimulating Hormone (TSH) 1.55 uIU/mL 0.358-3.74 [facility] Work Phone: Vitamin D 25-Hydroxy 26.9 ng/mL [facility] Work Phone: [phone] Comment on above: Vitamin D 25(OH) Sta tus Range Deficiency <20 ng/mL (50nmol/L) Insufficiency 20 - 30 ng/mL (50 - 75 nmol/L) Sufficiency 30 - 100 ng/mL (75 - 250 nmol/L) Toxicity >100 ng/mL (>250 nmol/L) Platelets bldon 08-21-2021 Platelets (Bld) [#/Vol] 351 10*3/uL 150-450 [facility] Work Phone: Serum or plasma calcium miguel angel urement (mass/volume)on 08-21-2021 Calcium [Mass/Vol] 8.7 mg/dL 8.5-10.1 [facility] Work Phone: Serum or plasma creatinine m easurement (mass/volume)on 08-21-2021 Creatinine [Mass/Vol] 0.34 mg/dL 0.55-1.02 [facility] Work Phone: Comment on above: The validity of the calculated GFR & GFRAA in patients over 70 years has not been determined. Clinical correlation is essential. Serum or plasma urea nitroge n measurement (mass/volume)on 08-21-2021 Urea nitrogen [Mass/Vol] 13 mg/dL 7-18 [facility] Work Phone: Thin prep Papanicolaou smear with manual screeningon 08-21-2021 Thin prep Papanicolaou smear with manual screening 4 5-15 [facility] Work Phone: Basophil percentageon 2021 Basophil percentage 50-100 SEEN /hpf [facility] Work Phone: Bilirubin Test strip Ql (U)o n 08-13-2021 Bilirubin Ql (U) Negative Negative [facility] Work Phone: Ketones Test strip Ql (U)on 08-13-2021 Ketones Ql (U) 5 mg/dl Negative [facility] Work Phone: Mucus LM Ql (Urine sed)on Mucus Ql (Urine sed) 0 SEEN /hpf [facility] Work Phone: Nitrite Test strip Ql (U)on 08-13-2021 Nitrite Ql (U) Positive Negative [facility] Work Phone: Protein Test strip Ql (U)on 08-13-2021 Protein Ql (U) 100 mg/dl Negative [facility] Work Phone: Squamous epithelial cells de tection in urine sediment by light microscopyon 08-13-2021 Epithelial cells.squamous LM Ql (Urine sed) 0-5 SEEN /hpf [facility] Work Phone: Urine blood detectionon - RBC Ql (U) 250 /ul Negative [facility] Work Phone: [phone] RBC Ql (U) 0 SEEN /hpf [facility] Work Phone: Urine clarityon 08-13-2021 Clarity (U) Clear Clear [facility] Work Phone: Urine color determinationon 08-13-2021 Color (U) Yellow Yellow [facility] Work Phone: Urine glucose detectionon Glucose Ql (U) Normal mg/dl Normal [facility] Work Phone: Urine leukocyte esterase det ection by dipstickon 08-13-2021 Leukocyte esterase Test strip Ql (U) 500 /ul Negative [facility] Work Phone: Urine pHon 08-13-2021 pH (U) 8.0 [pH] [facility] Work Phone: Urine sediment bacteria coun t by microscopy (number/high power field)on 08-13-2021 Bacteria LM.HPF (Urine sed) [#/Area] 4 /[HPF] None Seen [facility] Work Phone: Urine specific gravity measu rementon 08-13-2021 Specific gravity (U) [Rel density] 1.010 [facility] Work Phone: Urobilinogen Auto test strip Ql (U)on 08-13-2021 Urobilinogen Ql (U) Normal mg/dl Normal [facility] Work Phone: Culture, urineon 08-12-2021 Bacteria identified Cx Nom (U) Proteus mirabilis [facility] Work Phone: Bacteria identified Cx Nom (U) Vancomycin Resist. E. faecalis [facility] Work Phone: LABORATORYOrdered By: SYSTEM [...] Invalid Interpretation Code 150 - 450 10^3/mcL AH Remisol SS RBC (Bld) [#/Vol] 4.80 106/mcL Invalid Interpretation Code 4.10 - 5.30 10^6/mcL AH Remisol SS WBC (Bld) [#/Vol] 12.90 103/mcL Invalid Interpretation Code 4.50 - 10.80 10^3/mcL Remisol SS Basophil percentageon 2021 Chloride [Moles/Vol] 107 mmol/L 98-107 [facility] Work Phone: Glucose [Mass/Vol] 87 mg/dL 74-106 [facility] Work Phone: Comment on above: Please note revised GLUCOSE reference range effective 2017. Potassium [Moles/Vol] 4.1 mmol/L 3.5-5.1 [facility] Work Phone: Sodium [Moles/Vol] 141 mmol/L 136-145 [facility] Work Phone: WBC (Bld) [#/Vol] 8.3 10*3/uL 4.4-11.0 [facility] Work Phone: Blood erythrocytes count (nu mber/volume)on 06-16-2021 RBC (Bld) [#/Vol] 4.22 10*6/uL 4.2-5.4 [facility] Work Phone: Blood hemoglobin measurement (mass/volume)on 06-16-2021 Hemoglobin (Bld) [Mass/Vol] 11.2 g/dL 12.0-15.0 [facility] Work Phone: Blood platelet mean volumeon 06-16-2021 Platelet mean volume (Bld) [Entitic vol] 9.3 fL 6.2-12.0 [facility] Work Phone: Determination of erythrocyte mean corpuscular volume (MCV)on 06-16-2021 MCV (RBC) [Entitic vol] 88.6 fL 81-99 [facility] Work Phone: [phone] Hematocrit Auto (Bld) [Volum e fraction]on 06-16-2021 Hematocrit (Bld) [Volume fraction] 37.4 % 37-47 [facility] Work Phone: [phone] Laboratory - Chemistry and C hemistry - challengeon 06-16-2021 CO2 [Moles/Vol] 30.0 mmol/L 21.0-32.0 [facility] Work Phone: [phone] Urea nitrogen/Creatinine [Mass ratio] 21.1 mg/mg 10-20 [facility] Work Phone: [phone] Laboratory - Hematology and Cell countson 06-16-2021 Erythrocyte distribution width (RBC) [Entitic vol] 48.0 fL 35.1-43.9 [facility] Work Phone: [phone] Erythrocyte distribution width (RBC) [Ratio] 15.1 % 11.6-14.6 [facility] Work Phone: [phone] MCH (RBC) [Entitic mass] 26.5 pg 27.0-32.0 [facility] Work Phone: [phone] MCHC Auto (RBC) [Mass/Vol]on 06-16-2021 MCHC (RBC) [Mass/Vol] 29.9 g/dL 32-36 [facility] Work [facility]: [phone] No Panel Informationon 06-16 Estimated GFR (MDRD) Amer 181 mL/min >60 [facility] Work Phone: [phone] Comment on above: GFR Calc Estimated GFR (MDRD) Non-Af Amer 149 mL/min >60 [facility] Work Phone: [phone] Comment on above: Non- GFR Calc Platelets bldon 06-16-2021 Platelets (Bld) [#/Vol] 353 10*3/uL 150-450 [facility] Work Phone: [phone] Serum or plasma calcium miguel angel urement (mass/volume)on 06-16-2021 Calcium [Mass/Vol] 8.7 mg/dL 8.5-10.1 [facility] Work Phone: Serum or plasma creatinine m easurement (mass/volume)on 06-16-2021 Creatinine [Mass/Vol] 0.47 mg/dL 0.55-1.02 [facility] Work Phone: Comment on above: The validity of the calculated GFR & GFRAA in patients over 70 years has not been determined. Clinical correlation is essential. Serum or plasma urea nitroge n measurement (mass/volume)on 06-16-2021 Urea nitrogen [Mass/Vol] 10 mg/dL 7-18 [facility] Work Phone: Thin prep Papanicolaou smear with manual screeningon 06-16-2021 Thin prep Papanicolaou smear with manual screening 4 5-15 [facility] Work Phone: Absolute lymphocyte counton 05-27-2021 Lymphocytes Auto (Unsp spec) [#/Vol] 2.72 10*3/uL 0.83-4.51 [facility] Work Phone: Basophil percentageon 2020 Basophil percentage >100 SEEN /hpf [facility] Work Phone: Chloride [Moles/Vol] 102 mmol/L 98-107 [facility] Work Phone: Eosinophils/100 WBC (Bld) 2.3 % 0-5 [facility] Work Phone: Glucose [Mass/Vol] 125 mg/dL 74-106 [facility] Work Phone: Comment on above: Fasting Glucose resu lt from 100 to 125 mg/dL suggests IMPAIRED HOMEOSTASIS per A.D.A. criteria.Please note revised GLUCOSE reference range effective 2017. Neutrophils (Bld) [#/Vol] 6.7 10*3/uL 2.0-7.7 [facility] Work Phone: Potassium [Moles/Vol] 3.3 mmol/L 3.5-5.1 [facility] Work Phone: Sodium [Moles/Vol] 139 mmol/L 136-145 [facility] Work Phone: [phone] WBC (Bld) [#/Vol] 10.5 10*3/uL 4.4-11.0 [facility] Work Phone: Bilirubin Test strip Ql (U)o n 05-27-2021 Bilirubin Ql (U) 3 mg/dL Negative [facility] Work Phone: Comment on above: COLOR OF URINE MAY A FFECT DIPSTICK RESULTS. Blood erythrocytes count (nu mber/volume)on 05-27-2021 RBC (Bld) [#/Vol] 4.95 10*6/uL 4.2-5.4 [facility] Work Phone: Blood hemoglobin measurement (mass/volume)on 05-27-2021 Hemoglobin (Bld) [Mass/Vol] 13.2 g/dL 12.0-15.0 [facility] Work Phone: Blood lymphocytes/100 leukoc yteson 05-27-2021 Lymphocytes/100 WBC (Bld) 26.0 % 19-41 [facility] Work Phone: Blood monocytes/100 leukocyt eson 05-27-2021 Monocytes/100 WBC (Bld) 6.7 % 0-10 [facility] Work Phone: Blood platelet mean volumeon 05-27-2021 Platelet mean volume (Bld) [Entitic vol] 9.5 fL 6.2-12.0 [facility] Work Phone: Culture, urineon 05-27-2021 Bacteria identified Cx Nom (U) Enterococcus faecalis [facility] Work Phone: [phone] Determination of erythrocyte mean corpuscular volume (MCV)on 05-27-2021 MCV (RBC) [Entitic vol] 87.5 fL 81-99 [facility] Work Phone: Hematocrit Auto (Bld) [Volum e fraction]on 05-27-2021 Hematocrit (Bld) [Volume fraction] 43.3 % 37-47 [facility] Work Phone: [phone] Ketones Test strip Ql (U)on 05-27-2021 Ketones Ql (U) 5 mg/dl Negative [facility] Work Phone: [phone] Laboratory - Chemistry and C hemistry - challengeon 05-27-2021 CO2 [Moles/Vol] 26.0 mmol/L 21.0-32.0 [facility] Work Phone: [phone] Urea nitrogen/Creatinine [Mass ratio] 31.3 mg/mg 10-20 [facility] Work Phone: [phone] Laboratory - Hematology and Cell countson 05-27-2021 Basophils/100 WBC (Unsp spec) 0.5 % 0-1 [facility] Work Phone: [phone] Erythrocyte distribution width (RBC) [Entitic vol] 47.5 fL 35.1-43.9 [facility] Work Phone: [phone] Erythrocyte distribution width (RBC) [Ratio] 14.7 % 11.6-14.6 [facility] Work Phone: [phone] Immature granulocytes/100 WBC (Bld) 0.300 % 0.0-0.9 [facility] Work Phone: [phone] Comment on above: IG% - Immature Granu locytes (promyelocytes, myelocytes and metamyelocytes) > 1% indicates that a LEFT SHIFT is Present. MCH (RBC) [Entitic mass] 26.7 pg 27.0-32.0 [facility] Work Phone: [phone] Neutrophils/100 WBC (Bld) 64.2 % 47-70 [facility] Work Phone: [phone] Nucleated RBC/100 WBC (Bld) [Ratio] 0 % 0-5 [facility] Work Phone: [phone] MCHC Auto (RBC) [Mass/Vol]on 05-27-2021 MCHC (RBC) [Mass/Vol] 30.5 g/dL 32-36 [facility] Work Phone: [phone] Mucus LM Ql (Urine sed)on Mucus Ql (Urine sed) 0 SEEN /hpf [facility] Work Phone: Nitrite Test strip Ql (U)on 05-27-2021 Nitrite Ql (U) Positive Negative [facility] Work Phone: No Panel Informationon 05-27 Estimated Creatinine Clearance Calc 97.19 ml/min [facility] Work Phone: Estimated GFR (MDRD) Amer 154 mL/min >60 [facility] Work Phone: Comment on above: GFR Calc Estimated GFR (MDRD) Non-Af Amer 128 mL/min >60 [facility] Work Phone: Comment on above: Non- GFR Calc Platelets bldon 05-27-2021 Platelets (Bld) [#/Vol] 388 10*3/uL 150-450 [facility] Work Phone: Protein Test strip Ql (U)on 05-27-2021 Protein Ql (U) 100 mg/dl Negative [facility] Work Phone: Serum or plasma calcium miguel angel urement (mass/volume)on 05-27-2021 Calcium [Mass/Vol] 9.2 mg/dL 8.5-10.1 [facility] Work Phone: Serum or plasma creatinine m easurement (mass/volume)on 05-27-2021 Creatinine [Mass/Vol] 0.54 mg/dL 0.55-1.02 [facility] Work Phone: Comment on above: The validity of the calculated GFR & GFRAA in patients over 70 years has not been determined. Clinical correlation is essential. Serum or plasma urea nitroge n measurement (mass/volume)on 05-27-2021 Urea nitrogen [Mass/Vol] 17 mg/dL 7-18 [facility] Work Phone: Squamous epithelial cells de tection in urine sediment by light microscopyon 05-27-2021 Epithelial cells.squamous LM Ql (Urine sed) 5-10 SEEN /hpf [facility] Work Phone: Thin prep Papanicolaou smear with manual screeningon 05-27-2021 Thin prep Papanicolaou smear with manual screening 11 5-15 [facility] Work Phone: Urine blood detectionon 05-14 RBC Ql (U) 250 /ul Negative [facility] Work Phone: RBC Ql (U) 50-100 SEEN /hpf [facility] Work Phone: Urine clarityon 05-27-2021 Clarity (U) Cloudy Clear [facility] Work Phone: Urine color determinationon 05-27-2021 Color (U) Latonya Yellow [facility] Work Phone: Urine glucose detectionon Glucose Ql (U) Normal mg/dl Normal [facility] Work Phone: Urine leukocyte esterase det ection by dipstickon 05-27-2021 Leukocyte esterase Test strip Ql (U) 500 /ul Negative [facility] Work Phone: Urine pHon 05-27-2021 pH (U) 6.5 [pH] [facility] Work Phone: Urine sediment bacteria coun t by microscopy (number/high power field)on 05-27-2021 Bacteria LM.HPF (Urine sed) [#/Area] 2 /[HPF] None Seen [facility] Work Phone: Urine specific gravity measu rementon 05-27-2021 Specific gravity (U) [Rel density] 1.015 [facility] Work Phone: Urobilinogen Auto test strip Ql (U)on 05-27-2021 Urobilinogen Ql (U) 8 mg/dl Normal [facility] Work Phone: Basophil percentageon 2020 Basophil percentage 50-100 SEEN /hpf [facility] Work Phone: Bilirubin Test strip Ql (U)o n 05-26-2021 Bilirubin Ql (U) 6 mg/dL Negative [facility] Work Phone: Comment on above: COLOR OF URINE MAY A FFECT DIPSTICK RESULTS. Culture, urineon 05-26-2021 Bacteria identified Cx Nom (U) Enterococcus faecalis [facility] Work Phone: Ketones Test strip Ql (U)on 05-26-2021 Ketones Ql (U) Negative Negative [facility] Work Phone: Mucus LM Ql (Urine sed)on Mucus Ql (Urine sed) 0 SEEN /hpf [facility] Work Phone: Nitrite Test strip Ql (U)on 05-26-2021 Nitrite Ql (U) Positive Negative [facility] Work Phone: Protein Test strip Ql (U)on 05-26-2021 Protein Ql (U) 100 mg/dl Negative [facility] Work Phone: Squamous epithelial cells de tection in urine sediment by light microscopyon 05-26-2021 Epithelial cells.squamous LM Ql (Urine sed) 0-5 SEEN /hpf [facility] Work Phone: Urine blood detectionon 05-14 RBC Ql (U) 250 /ul Negative [facility] Work Phone: RBC Ql (U) 5-10 SEEN /hpf [facility] Work Phone: Urine clarityon 05-26-2021 Clarity (U) Sl. Cloudy Clear [facility] Work Phone: Urine color determinationon 05-26-2021 Color (U) Yellow Yellow [facility] Work Phone: Urine glucose detectionon Glucose Ql (U) Normal mg/dl Normal [facility] Work Phone: Urine leukocyte esterase det ection by dipstickon 05-26-2021 Leukocyte esterase Test strip Ql (U) 500 /ul Negative [facility] Work Phone: Urine pHon 05-26-2021 pH (U) 7.0 [pH] [facility] Work Phone: Urine sediment bacteria coun t by microscopy (number/high power field)on 05-26-2021 Bacteria LM.HPF (Urine sed) [#/Area] 1 /[HPF] None Seen [facility] Work Phone: Urine specific gravity measu rementon 05-26-2021 Specific gravity (U) [Rel density] 1.010 [facility] Work Phone: Urobilinogen Auto test strip Ql (U)on 05-26-2021 Urobilinogen Ql (U) 12 mg/dl Normal [facility] Work Phone: Culture, urine Bacteria identified Cx Nom (U) Proteus mirabilis [facility] Work Phone: [phone] Bacteria identified Cx Nom (U) Morganella morganii sp ramseyonii [facility] Work Phone: Influenza virus A and B and SARS-CoV-2 (COVID-19) Ag panel - Upper respiratory specim SARS-CoV-2 (COVID-19) RNA NBA+probe Ql (Resp) [facility] Work Phone: Vital Signs Date Time Vital Sign Value Performing Clinician Faci lity 03-02-2025 13:33-0400 Body temperature 97.1 [degF] Dr. Lavon Vicente MD Work Phone: [facility] 03-02-2025 13:33-0400 Diastolic blood pressure 99 mm[Hg] Dr. Lavon Vicente MD Work Phone: [facility] 03-02-2025 13:33-0400 Heart rate 86 /min Dr. Lavon Vicente MD Work Phone: [facility] 03-02-2025 13:33-0400 Inhaled oxygen flow rate 4 L/min Dr. Lavon Vicente MD Work Phone: [facility] 03-02-2025 13:33-0400 Respiratory rate 16 /min Dr. Lavon Vicente MD Work Phone: [facility] 03-02-2025 13:33-0400 SaO2% (BldA) [Mass fraction] 99 % Dr. Lavon Vicente MD Work Phone: 0(141)095-34[address]85 [place] [address] 03-02-2025 13:33-0400 Systolic blood pressure 127 mm[Hg] Dr. Lavon Vicente MD Work Phone: 0(047)637-988[address] [place] [address] 03-02-2025 10:10-0400 Body height 154.[address] Lavon Vicente MD Work Phone: 8(696)636-424401 [place] [address] 03-02-2025 10:10-0400 Body mass index (BMI) [Ratio] 49.1 kg/m2 Dr. Lavon Vicente MD Work Phone: 8(933)929-258601 [place] [address] 03-02-2025 10:10-0400 Body weight 117.[address] Lavon Vicente MD Work Phone: 4(762)581-212601 [place] [address] 07-03-2024 13:03-0500 Body temperature 97.5 [degF] Dr. Lavon Vicente MD Work Phone: 0(803)009-136101 [place] [address] 07-03-2024 13:03-0500 Diastolic blood pressure 77 mm[Hg] Dr. Lavon Vicente MD Work Phone: 5(621)505-920101 [place] [address] 07-03-2024 13:03-0500 Heart rate 93 /min Dr. Lavon Vicente MD Work Phone: 9(457)954-741701 [place] [address] 07-03-2024 13:03-0500 Inhaled oxygen flow rate 4 L/min Dr. Lavon Vicente MD Work Phone: 7(360)750-028901 [place] [address] 07-03-2024 13:03-0500 Respiratory rate 20 /min Dr. Lavon Vicente MD Work Phone: 5(835)091-852401 [place] [address] 07-03-2024 13:03-0500 SaO2% (BldA) [Mass fraction] 96 % Dr. Lavon Vicente MD Work Phone: 6(633)226-775201 [place] [address] 07-03-2024 13:03-0500 Systolic blood pressure 103 mm[Hg] Dr. Lavon Vicente MD Work Phone: 6(632)492-422525 [place] [address] 07-03-2024 11:20-0500 Body height 154.[address] Lavon Vicente MD Work Phone: 9(025)421-626725 [place] [address] 07-03-2024 11:20-0500 Body mass index (BMI) [Ratio] 47.2 kg/m2 Dr. Lavon Vicente MD Work Phone: [facility] 07-03-2024 11:20-0500 Body weight 113.[address] Lavon Vicente MD Work Phone: [facility] 03-01-2024 15:11-0400 Body temperature 98.24 [degF] DR CHERIE RENEE MD [facility] 03-01-2024 15:11-0400 Diastolic Blood Pressure Non-Invasive 91 mm[Hg] DR CHERIE RENEE MD [facility] 03-01-2024 15:11-0400 Heart rate 97 /min DR CHERIE RENEE MD [facility] 03-01-2024 15:11-0400 Respiratory rate 18 /min DR CHERIE RENEE MD [facility] 03-01-2024 15:11-0400 Systolic Blood Pressure Non-Invasive 135 mm[Hg] DR CHERIE RENEE MD [facility] 03-01-2024 13:40-0400 Body temperature 97.52 [degF] DR CHERIE RENEE MD [facility] 03-01-2024 13:40-0400 Diastolic Blood Pressure Non-Invasive 96 mm[Hg] DR CHERIE RENEE MD [facility] 03-01-2024 13:40-0400 Heart rate 75 /min DR CHERIE RENEE MD [facility] 03-01-2024 13:40-0400 Respiratory rate 16 /min DR CHERIE RENEE MD [facility] 03-01-2024 13:40-0400 Systolic Blood Pressure Non-Invasive 133 mm[Hg] DR CHERIE RENEE MD [facility] 03-01-2024 13:13-0400 Body temperature 98.42 [degF] DR CHERIE RENEE MD [facility] 03-01-2024 13:13-0400 Diastolic Blood Pressure Non-Invasive 80 mm[Hg] DR CHERIE RENEE MD [facility] 03-01-2024 13:13-0400 Heart rate 78 /min DR CHERIE RENEE MD [facility] 03-01-2024 13:13-0400 Mean blood pressure 89 mm[Hg] DR CHERIE RENEE MD [facility] 03-01-2024 13:13-0400 Respiratory rate 16 /min DR CHEREI RENEE MD [facility] 03-01-2024 13:13-0400 Systolic Blood Pressure Non-Invasive 118 mm[Hg] DR CHERIE RENEE MD [facility] 03-01-2024 12:58-0400 Mean blood pressure 102 mm[Hg] DR CHERIE RENEE MD [facility] 03-01-2024 12:43-0400 Mean blood pressure 103 mm[Hg] DR CHERIE RENEE MD [facility] 03-01-2024 12:20-0400 Respiratory Rate - Anes 11 br/min DR CHERIE RENEE MD [facility] 03-01-2024 12:15-0400 Body temperature 98.42 [degF] DR CHERIE RENEE MD [facility] 03-01-2024 12:15-0400 Respiratory Rate - Anes 10 br/min DR CHERIE RENEE MD [facility] 03-01-2024 12:10-0400 Body temperature 98.4 [degF] DR CHERIE RENEE MD [facility] 03-01-2024 12:10-0400 Respiratory Rate - Anes 10 br/min DR CHERIE RENEE MD [facility] 03-01-2024 12:05-0400 Body temperature 98.29 [degF] DR CHERIE RENEE MD [facility] 03-01-2024 07:48-0400 Body height 154.[address] CHERIE RENEE MD [facility] 03-01-2024 07:48-0400 Body weight 113.[address] CHERIE RENEE MD [facility] 03-01-2024 07:48-0400 Heart rate 84 /min DR CHERIE RENEE MD [facility] 07-08-2023 05:21-0500 Body temperature 97.6 [degF] Dr. Lavon Vicente Work Phone: [facility] 07-08-2023 05:21-0500 Diastolic blood pressure 79 mm[Hg] Dr. Lavon Vicente Work Phone: [facility] 07-08-2023 05:21-0500 Heart rate 81 /min Dr. Lavon Vicente Work Phone: [facility] 07-08-2023 05:21-0500 Respiratory rate 16 /min Dr. Lavon Vicente Work Phone: [facility] 07-08-2023 05:21-0500 SaO2% (BldA) [Mass fraction] 98 % Dr. Lavon Vicente Work Phone: [facility] 07-08-2023 05:21-0500 Systolic blood pressure 134 mm[Hg] Dr. Lavon Vicente Work Phone: [facility] 07-08-2023 04:19-0500 Body mass index (BMI) [Ratio] 41.1 kg/m2 Dr. Lavon Vicente Work Phone: [facility] 07-08-2023 04:19-0500 Body weight 108.[address] Lavon Vicente Work Phone: [facility] 07-08-2023 00:25-0500 Inhaled oxygen flow rate 3 L/min Dr. Lavon Vicente Work Phone: [facility] 07-06-2023 14:28-0500 Body height 162.[address] Lavon Vicente Work Phone: [facility] 07-02-2023 23:55-0500 Body temperature 98.1 [degF] [facility] 07-02-2023 23:55-0500 Diastolic blood pressure 96 mm[Hg] [facility] 07-02-2023 23:55-0500 Heart rate 118 /min [facility] 07-02-2023 23:55-0500 Inhaled oxygen flow rate 2 L/min [facility] 07-02-2023 23:55-0500 Respiratory rate 23 /min [facility] 07-02-2023 23:55-0500 SaO2% (BldA) [Mass fraction] 94 % [facility] 07-02-2023 23:55-0500 Systolic blood pressure 167 mm[Hg] [facility] 07-02-2023 22:22-0500 Body height 162.56 cm [facility] 07-02-2023 22:22-0500 Body mass index (BMI) [Ratio] 42.7 kg/m2 [facility] 07-02-2023 22:22-0500 Body weight 112.9 kg [facility] 03-17-2023 14:50-0400 Diastolic blood pressure 43 mm[Hg] [facility] 03-17-2023 14:50-0400 Heart rate 90 /min [facility] 03-17-2023 14:50-0400 Inhaled oxygen flow rate 4 L/min [facility] 03-17-2023 14:50-0400 Respiratory rate 16 /min [facility] 03-17-2023 14:50-0400 SaO2% (BldA) [Mass fraction] 94 % [facility] 03-17-2023 14:50-0400 Systolic blood pressure 83 mm[Hg] [facility] 03-17-2023 14:45-0400 Body temperature 98.2 [degF] [facility] 03-17-2023 12:28-0400 Body mass index (BMI) [Ratio] 44.9 kg/m2 [facility] 03-17-2023 12:28-0400 Body weight 111.58 kg [facility] 01-26-2023 23:42-0400 Diastolic blood pressure 77 mm[Hg] Dr. Lavon Vicente Work Phone: [facility] 01-26-2023 23:42-0400 Heart rate 88 /min Dr. Lavon Vicente Work Phone: 9(814)424-25[address] [place] [address] 01-26-2023 23:42-0400 Respiratory rate 18 /min Dr. Lavon Vicente Work Phone: 7(860)897-672825 [place] [address] 01-26-2023 23:42-0400 SaO2% (BldA) [Mass fraction] 93 % Dr. Lavon Vicente Work Phone: 4(919)660-104225 [place] [address] 01-26-2023 23:42-0400 Systolic blood pressure 108 mm[Hg] Dr. Lavon Vicente Work Phone: 4(098)087-696625 [place] [address] 01-26-2023 22:05-0400 Body temperature 98 [degF] Dr. Lavon Vicente Work Phone: 4(609)945-951225 [place] [address] 01-26-2023 22:05-0400 Inhaled oxygen flow rate 4 L/min Dr. Lavon Vicente Work Phone: [facility] 01-26-2023 20:06-0400 Body height 154.[address] Lavon Vicente Work Phone: [facility] 01-26-2023 20:06-0400 Body mass index (BMI) [Ratio] 46.9 kg/m2 Dr. Lavon Vicente Work Phone: [facility] 01-26-2023 20:06-0400 Body weight 112.[address] Lavon Vicente Work Phone: [facility] 11-16-2022 14:40-0400 Body temperature 98.5 [degF] Dr. Lavon Vicente Work Phone: [facility] 11-16-2022 14:40-0400 Diastolic blood pressure 69 mm[Hg] Dr. Lavon Vicente Work Phone: [facility] 11-16-2022 14:40-0400 Heart rate 100 /min Dr. Lavon Vicente Work Phone: [facility] 11-16-2022 14:40-0400 Inhaled oxygen flow rate 1 L/min Dr. Lavon Vicente Work Phone: [facility] 11-16-2022 14:40-0400 Respiratory rate 18 /min Dr. Lavon Vicente Work Phone: [facility] 11-16-2022 14:40-0400 SaO2% (BldA) [Mass fraction] 97 % Dr. Lavon Vicente Work Phone: [facility] 11-16-2022 14:40-0400 Systolic blood pressure 113 mm[Hg] Dr. Lavon Vicente Work Phone: [facility] 11-15-2022 10:27-0400 Body height 154.[address] Lavon Vicente Work Phone: [facility] 11-15-2022 10:27-0400 Body weight 110.[address] Lavon Vicente Work Phone: [facility] 11-15-2022 00:51-0400 Body mass index (BMI) [Ratio] 46.1 kg/m2 Dr. Lavon Vicente Work Phone: [facility] 11-14-2022 23:48-0400 Body temperature 99.1 [degF] Dr. Lavon Vicente Work Phone: [facility] 11-14-2022 23:48-0400 Diastolic blood pressure 91 mm[Hg] Dr. Lavon Vicente Work Phone: [facility] 11-14-2022 23:48-0400 Heart rate 97 /min Dr. Lavon Vicente Work Phone: [facility] 11-14-2022 23:48-0400 Inhaled oxygen flow rate 4 L/min Dr. Lavon Vicente Work Phone: [facility] 11-14-2022 23:48-0400 Respiratory rate 20 /min Dr. Lavon Vicente Work Phone: [facility] 11-14-2022 23:48-0400 SaO2% (BldA) [Mass fraction] 97 % Dr. Lavon Vicente Work Phone: [facility] 11-14-2022 23:48-0400 Systolic blood pressure 137 mm[Hg] Dr. Lavon Vicente Work Phone: [facility] 11-14-2022 19:40-0400 Body height 154.[address] Lavon Vicente Work Phone: [facility] 11-14-2022 19:40-0400 Body mass index (BMI) [Ratio] 37.1 kg/m2 Dr. Lavon Vicente Work Phone: [phone] [place] [address] 11-14-2022 19:40-0400 Body weight 89.[address] Lavon Vicente Work Phone: [facility] 11-09-2022 19:16-0400 Heart rate 79 /min Dr. Lavon Vicente Work Phone: [facility] 11-09-2022 19:16-0400 Respiratory rate 16 /min Dr. Lavon Vicente Work Phone: [facility] 11-09-2022 18:49-0400 Diastolic blood pressure 99 mm[Hg] Dr. Lavon Vicente Work Phone: [facility] 11-09-2022 18:49-0400 SaO2% (BldA) [Mass fraction] 97 % Dr. Lavon Vicente Work Phone: [facility] 11-09-2022 18:49-0400 Systolic blood pressure 149 mm[Hg] Dr. Lavon Vicente Work Phone: [facility] 11-09-2022 17:13-0400 Body temperature 97.5 [degF] Dr. Lavon Vicente Work Phone: [facility] 11-09-2022 14:41-0400 Body height 154.[address] Lavon Vicente Work Phone: [facility] 11-09-2022 14:41-0400 Body mass index (BMI) [Ratio] 48.1 kg/m2 Dr. Lavon Vicente Work Phone: [facility] 11-09-2022 14:41-0400 Body weight 115.[address] Lavon Vicente Work Phone: [facility] 11-06-2022 13:13-0400 Diastolic blood pressure 85 mm[Hg] Dr. Lavon Vicente Work Phone: [facility] 11-06-2022 13:13-0400 Heart rate 76 /min Dr. Lavon Vicente Work Phone: [facility] 11-06-2022 13:13-0400 Inhaled oxygen flow rate 2 L/min Dr. Lavon Vicente Work Phone: [facility] 11-06-2022 13:13-0400 Respiratory rate 18 /min Dr. Lavon Vicente Work Phone: [facility] 11-06-2022 13:13-0400 SaO2% (BldA) [Mass fraction] 99 % Dr. Lavon Vicente Work Phone: [facility] 11-06-2022 13:13-0400 Systolic blood pressure 117 mm[Hg] Dr. Lavon Vicente Work Phone: [facility] 11-06-2022 09:05-0400 Body mass index (BMI) [Ratio] 52.9 kg/m2 Dr. Lavon Vicente Work Phone: [facility] 11-06-2022 09:05-0400 Body temperature 96.8 [degF] Dr. Lavon Vicente Work Phone: [facility] 11-06-2022 09:05-0400 Body weight 127.[address] Lavon Vicente Work Phone: [facility] 10-28-2022 15:20-0400 Body temperature 98 [degF] Dr. Lavon Vicente Work Phone: [facility] 10-28-2022 15:20-0400 Diastolic blood pressure 56 mm[Hg] Dr. Lavon Vicente Work Phone: [facility] 10-28-2022 15:20-0400 Heart rate 86 /min Dr. Lavon Vicente Work Phone: [facility] 10-28-2022 15:20-0400 Inhaled oxygen flow rate 4 L/min Dr. Lavon Vicente Work Phone: [facility] 10-28-2022 15:20-0400 Respiratory rate 16 /min Dr. Lavon Vicente Work Phone: [facility] 10-28-2022 15:20-0400 SaO2% (BldA) [Mass fraction] 96 % Dr. Lavon Vicente Work Phone: [facility] 10-28-2022 15:20-0400 Systolic blood pressure 86 mm[Hg] Dr. Lavon Vicente Work Phone: [facility] 10-28-2022 13:56-0400 Body height 154.[address] Lavon Vicente Work Phone: [facility] 10-28-2022 13:56-0400 Body mass index (BMI) [Ratio] 49.7 kg/m2 Dr. Lavon Vicente Work Phone: [facility] 10-28-2022 13:56-0400 Body weight 119.[address] Lavon Vicente Work Phone: [facility] 10-06-2022 11:29-0400 Body height 160 cm Rosa Maria Martinez PA-C Work Phone: [facility] 10-06-2022 11:29-0400 Body temperature 97 [degF] Rosa Maria Martinez PA-C Work Phone: [facility] 10-06-2022 11:29-0400 Body weight 104.33 kg Rosa Maria Martinez PA-C Work Phone: [facility] 10-06-2022 11:29-0400 Diastolic blood pressure 70 mm[Hg] Rosa Maria Martinez PA-C Work Phone: [facility] 10-06-2022 11:29-0400 Heart rate 86 /min Rosa Maria Martinez PA-C Work Phone: [facility] 10-06-2022 11:29-0400 Respiratory rate 16 /min Rosa Maria Martinez PA-C Work Phone: [facility] 10-06-2022 11:29-0400 SaO2% (BldA) [Mass fraction] 100 % Rosa Maria Martinez PA-C Work Phone: [facility] 10-06-2022 11:29-0400 Systolic blood pressure 110 mm[Hg] Rosa Maria Martinez PA-C Work Phone: [facility] 09-14-2022 15:00-0400 Inhaled oxygen flow rate 2 L/min Dr. Lavon Vicente Work Phone: [facility] 09-14-2022 14:07-0400 Body temperature 97.7 [degF] Dr. Lavon Vicente Work Phone: [facility] 09-14-2022 14:07-0400 Diastolic blood pressure 64 mm[Hg] Dr. Lavon Vicente Work Phone: [facility] 09-14-2022 14:07-0400 Heart rate 97 /min Dr. Lavon Vicente Work Phone: [facility] 09-14-2022 14:07-0400 Respiratory rate 20 /min Dr. Lavon Vicente Work Phone: [facility] 09-14-2022 14:07-0400 SaO2% (BldA) [Mass fraction] 97 % Dr. Lavon Vicente Work Phone: [facility] 09-14-2022 14:07-0400 Systolic blood pressure 110 mm[Hg] Dr. Lavon Vicente Work Phone: [facility] 09-14-2022 06:00-0400 Body mass index (BMI) [Ratio] 50.7 kg/m2 Dr. Lavon Vicente Work Phone: [facility] 09-14-2022 06:00-0400 Body weight 121.[address] Lavon Vicente Work Phone: [facility] 09-12-2022 16:22-0400 Body height 154.[address] Lavon Vicente Work Phone: [facility] 09-12-2022 15:23-0400 Body temperature 98 [degF] Dr. Lavon Vicente Work Phone: [facility] 09-12-2022 15:23-0400 Diastolic blood pressure 84 mm[Hg] Dr. Lavon Vicente Work Phone: [facility] 09-12-2022 15:23-0400 Heart rate 102 /min Dr. Lavon Vicente Work Phone: [facility] 09-12-2022 15:23-0400 Inhaled oxygen flow rate 6 L/min Dr. Lavon Vicente Work Phone: [facility] 09-12-2022 15:23-0400 Respiratory rate 18 /min Dr. Lavon Vicente Work Phone: [facility] 09-12-2022 15:23-0400 SaO2% (BldA) [Mass fraction] 95 % Dr. Lavon Vicente Work Phone: [facility] 09-12-2022 15:23-0400 Systolic blood pressure 127 mm[Hg] Dr. Lavon Vicente Work Phone: [facility] 09-12-2022 09:06-0400 Body height 154.[address] Lavon Vicente Work Phone: [facility] 09-12-2022 09:06-0400 Body mass index (BMI) [Ratio] 50.5 kg/m2 Dr. Lavon Vicente Work Phone: [facility] 09-12-2022 09:06-0400 Body weight 121.[address] Lavon Vicente Work Phone: [facility] 07-24-2022 22:33-0500 Diastolic blood pressure 54 mm[Hg] Dr. Lavon Vicente Work Phone: [facility] 07-24-2022 22:33-0500 SaO2% (BldA) [Mass fraction] 93 % Dr. Lavon Vicente Work Phone: [facility] 07-24-2022 22:33-0500 Systolic blood pressure 104 mm[Hg] Dr. Lavon Vicente Work Phone: [facility] 07-24-2022 22:11-0500 Heart rate 101 /min Dr. Lavon Vicente Work Phone: [facility] 07-24-2022 22:11-0500 Respiratory rate 20 /min Dr. Lavon Vicente Work Phone: [facility] 07-24-2022 21:57-0500 Body temperature 98 [degF] Dr. Lavon Vicente Work Phone: [facility] 07-24-2022 19:11-0500 Body temperature 98.4 [degF] Dr. Lavon Vicente Work Phone: [facility] 07-24-2022 19:11-0500 Diastolic blood pressure 104 mm[Hg] Dr. Lavon Vicente Work Phone: [facility] 07-24-2022 19:11-0500 Heart rate 107 /min Dr. Lavon Vicente Work Phone: [facility] 07-24-2022 19:11-0500 Inhaled oxygen flow rate 4 L/min Dr. Lavon Vicente Work Phone: [facility] 07-24-2022 19:11-0500 Respiratory rate 18 /min Dr. Lavon Vicente Work Phone: [facility] 07-24-2022 19:11-0500 SaO2% (BldA) [Mass fraction] 97 % Dr. Lavon Vicente Work Phone: [facility] 07-24-2022 19:11-0500 Systolic blood pressure 159 mm[Hg] Dr. Lavon Vicente Work Phone: [facility] 07-24-2022 19:06-0500 Body height 152.[address] Lavon Vicente Work Phone: [facility] 07-24-2022 19:06-0500 Body mass index (BMI) [Ratio] 52.3 kg/m2 Dr. Lavon Vicente Work Phone: [facility] 07-24-2022 19:06-0500 Body weight 121.[address] Lavon Vicente Work Phone: [facility] 06-05-2022 09:49-0500 Inhaled oxygen flow rate 4 L/min Dr. Lavon Vicente Work Phone: [facility] 06-05-2022 09:47-0500 Body temperature 98 [degF] Dr. Lavon Vicente Work Phone: [facility] 06-05-2022 09:47-0500 Diastolic blood pressure 69 mm[Hg] Dr. Lavon Vicente Work Phone: [facility] 06-05-2022 09:47-0500 Heart rate 100 /min Dr. Lavon Vicente Work Phone: [facility] 06-05-2022 09:47-0500 Respiratory rate 18 /min Dr. Lavon Vicente Work Phone: [facility] 06-05-2022 09:47-0500 SaO2% (BldA) [Mass fraction] 94 % Dr. Lavon Vicente Work Phone: [facility] 06-05-2022 09:47-0500 Systolic blood pressure 116 mm[Hg] Dr. Lavon Vicente Work Phone: [facility] 06-05-2022 04:34-0500 Body weight 121.[address] Lavon Vicente Work Phone: [facility] 06-03-2022 15:20-0500 Body height 152.[address] Lavon Vicente Work Phone: [facility] Work Phone: 06-03-2022 08:58-0500 Body mass index (BMI) [Ratio] 49.9 kg/m2 Dr. Lavon Vicente Work Phone: [facility] 06-03-2022 07:52-0500 Body temperature 98.3 [degF] [facility] Work Phone: 06-03-2022 07:52-0500 Diastolic blood pressure 108 mm[Hg] [facility] Work Phone: 06-03-2022 07:52-0500 Heart rate 63 /min [facility] Work Phone: 06-03-2022 07:52-0500 Inhaled oxygen flow rate 2 L/min [facility] Work Phone: 06-03-2022 07:52-0500 Respiratory rate 20 /min [facility] Work Phone: 06-03-2022 07:52-0500 SaO2% (BldA) [Mass fraction] 94 % [facility] Work Phone: 06-03-2022 07:52-0500 Systolic blood pressure 129 mm[Hg] [facility] Work Phone: 06-03-2022 06:00-0500 Body height 160.02 cm [facility] Work Phone: 06-03-2022 06:00-0500 Body mass index (BMI) [Ratio] 44.4 kg/m2 [facility] Work Phone: 06-03-2022 06:00-0500 Body weight 113.9 kg [facility] Work Phone: 01-09-2022 12:11-0400 Body temperature 98.5 [degF] [facility] Work Phone: 01-09-2022 12:11-0400 Diastolic blood pressure 85 mm[Hg] [facility] Work Phone: 01-09-2022 12:11-0400 Heart rate 102 /min [facility] Work Phone: 01-09-2022 12:11-0400 Inhaled oxygen flow rate 2 L/min [facility] Work Phone: 01-09-2022 12:11-0400 Respiratory rate 16 /min [facility] Work Phone: 01-09-2022 12:11-0400 SaO2% (BldA) [Mass fraction] 93 % [facility] Work Phone: 01-09-2022 12:11-0400 Systolic blood pressure 125 mm[Hg] [facility] Work Phone: 01-09-2022 09:51-0400 Body height 154.94 cm [facility] Work Phone: 01-09-2022 09:51-0400 Body mass index (BMI) [Ratio] 45.3 kg/m2 [facility] Work Phone: 01-09-2022 09:51-0400 Body weight 108.86 kg [facility] Work Phone: 09-12-2021 12:00-0400 Body temperature 99.4 [degF] [facility] Work Phone: 09-12-2021 12:00-0400 Diastolic blood pressure 68 mm[Hg] [facility] Work Phone: 09-12-2021 12:00-0400 Heart rate 85 /min [facility] Work Phone: 09-12-2021 12:00-0400 Respiratory rate 16 /min [facility] Work Phone: 09-12-2021 12:00-0400 SaO2% (BldA) [Mass fraction] 92 % [facility] Work Phone: 09-12-2021 12:00-0400 Systolic blood pressure 117 mm[Hg] [facility] Work Phone: 09-12-2021 11:40-0400 Inhaled oxygen flow rate 4 L/min [facility] Work Phone: 09-12-2021 08:27-0400 Body height 154.94 cm [facility] Work Phone: 09-12-2021 08:27-0400 Body mass index (BMI) [Ratio] 43.4 kg/m2 [facility] Work Phone: 09-12-2021 08:27-0400 Body weight 104.32 kg [facility] Work Phone: 07-28-2021 17:53-0500 Body temperature 97.34 [degF] DR MAGDY VOGT MD [facility] 07-28-2021 17:53-0500 Diastolic blood pressure 90 mm[Hg] DR MAGDY VOGT MD [facility] 07-28-2021 17:53-0500 Heart rate 85 /min DR MAGDY VOGT MD [facility] 07-28-2021 17:53-0500 Mean blood pressure 109 mm[Hg] DR MAGDY VOGT MD [facility] 07-28-2021 17:53-0500 Reason For Taking VItal Signs DR MAGDY VOGT MD [facility] 07-28-2021 17:53-0500 Respiratory rate 16 /min DR MAGDY VOGT MD [facility] 07-28-2021 17:53-0500 Systolic blood pressure 146 mm[Hg] DR MAGDY VOGT MD [facility] 07-28-2021 16:09-0500 Body temperature 97.16 [degF] DR MAGDY VOGT MD [facility] 07-28-2021 16:09-0500 Diastolic blood pressure 91 mm[Hg] DR MAGDY VOGT MD [facility] 07-28-2021 16:09-0500 Heart rate 81 /min DR MAGDY VOGT MD [facility] 07-28-2021 16:09-0500 Mean blood pressure 110 mm[Hg] DR MAGDY VOGT MD [facility] 07-28-2021 16:09-0500 Reason For Taking VItal Signs DR MAGDY VOGT MD [facility] 07-28-2021 16:09-0500 Respiratory rate 16 /min DR MAGDY VOGT MD [facility] 07-28-2021 16:09-0500 Systolic blood pressure 148 mm[Hg] DR MAGDY VOGT MD [facility] 07-28-2021 15:56-0500 Body temperature 98.06 [degF] DR MAGDY VOGT MD [facility] 07-28-2021 15:56-0500 Diastolic Blood Pressure NBP [address] MAGDY VOGT MD [facility] 07-28-2021 15:56-0500 Heart rate 85 /min DR MAGDY VOGT MD [facility] 07-28-2021 15:56-0500 Mean blood pressure 101 mm[Hg] DR MAGDY VOGT MD [facility] 07-28-2021 15:56-0500 Respiratory rate 16 /min DR MAGDY VOGT MD [facility] 07-28-2021 15:56-0500 Systolic Blood Pressure NBP [address] MAGDY VOGT MD [facility] 07-28-2021 15:40-0500 Diastolic Blood Pressure NBP [address] MAGDY VOGT MD [facility] 07-28-2021 15:40-0500 Heart rate 87 /min DR MAGDY VOGT MD [facility] 07-28-2021 15:40-0500 Mean blood pressure 108 mm[Hg] DR MAGDY VOGT MD [facility] 07-28-2021 15:40-0500 Systolic Blood Pressure NBP [address] MAGDY VOGT MD [facility] 07-28-2021 15:24-0500 Diastolic Blood Pressure NBP [address] MAGDY VOGT MD [facility] 07-28-2021 15:24-0500 Heart rate 91 /min DR MAGDY VOGT MD [facility] 07-28-2021 15:24-0500 Mean blood pressure 103 mm[Hg] DR MAGDY VOGT MD [facility] 07-28-2021 15:24-0500 Systolic Blood Pressure NBP [address] MAGDY VOGT MD [facility] 07-28-2021 10:28-0500 Body height [address] MAGDY VOGT MD [facility] 07-28-2021 10:28-0500 Diastolic blood pressure 93 mm[Hg] DR MAGDY VOGT MD [facility] 07-28-2021 10:28-0500 Heart rate 79 /min DR MAGDY VOGT MD [facility] 07-28-2021 10:28-0500 Mean blood pressure 113 mm[Hg] DR MAGDY VOGT MD [facility] 07-28-2021 10:28-0500 Systolic blood pressure 153 mm[Hg] DR MAGDY VOGT MD [facility] 07-28-2021 10:23-0500 Body weight 100.[address] MAGDY VOGT MD [facility] 07-21-2021 14:45-0500 Body temperature 97.8 [degF] [facility] Work Phone: 07-21-2021 14:45-0500 Diastolic blood pressure 70 mm[Hg] [facility] Work Phone: 07-21-2021 14:45-0500 Heart rate 78 /min [facility] Work Phone: 07-21-2021 14:45-0500 Respiratory rate 16 /min [facility] Work Phone: 07-21-2021 14:45-0500 SaO2% (BldA) [Mass fraction] 94 % [facility] Work Phone: 07-21-2021 14:45-0500 Systolic blood pressure 105 mm[Hg] [facility] Work Phone: 07-21-2021 13:17-0500 Body mass index (BMI) [Ratio] 41.1 kg/m2 [facility] Work Phone: 07-21-2021 13:17-0500 Body weight 105.23 kg [facility] Work Phone: 05-27-2021 20:43-0500 Diastolic blood pressure 81 mm[Hg] [facility] Work Phone: 05-27-2021 20:43-0500 Heart rate 73 /min [facility] Work Phone: 05-27-2021 20:43-0500 Respiratory rate 18 /min [facility] Work Phone: 05-27-2021 20:43-0500 SaO2% (BldA) [Mass fraction] 92 % [facility] Work Phone: 05-27-2021 20:43-0500 Systolic blood pressure 116 mm[Hg] [facility] Work Phone: 05-27-2021 17:27-0500 Body mass index (BMI) [Ratio] 44.1 kg/m2 [facility] Work Phone: 05-27-2021 17:27-0500 Body temperature 96.8 [degF] [facility] Work Phone: 05-27-2021 17:27-0500 Body weight 105.99 kg [facility] Work Phone: Encounters Encounter Date Encounter Type Care Provider Facility Start: 04-21-2025 End: 04-21-2025 Emergency department patient visit Kori Tdnatividadbrett Facility:[facility] Start: 03-27-2025 ambulatory Lavon Vicente Facility:[facility] Start: 03-22-2025 ambulatory Lavon Vicetne Facility:[facility] Start: 03-13-2025 End: 03-13-2025 ambulatory LONI PAGE DIRECTOR [employer] Facility:A Start: 03-13-2025 End: 03-13-2025 Patient encounter procedure LONI SAXENAHMAN DIRECTOR [employer] MANA[employer]IAL LAW[employer]ER [facility] Start: 03-02-2025 End: 03-02-2025 Admission to same day surgery center Dr. Kenia Hammond MD [facility] Start: 03-02-2025 End: 03-02-[address] Lavon Vicente MD Work Phone: [facility] Start: 02-27-[address] Kori Sethi MD -[facility] Start: 02-27-2025 End: 02-27-2025 ambulatory Lavon Vicente Facility:[facility] Start: 02-21-[address] Kori Sethi MD [facility] Start: 02-21-2025 End: 02-21-2025 ambulatory Laovn Vicente Facility:[facility] Start: 12-26-2024 ambulatory [facility] Facility:[facility] Start: 12-26-[address] Kori Sethi MD -[facility] Start: 12-19-[address] Kori Sethi MD [facility] Start: 12-19-2024 End: 12-19-2024 ambulatory Kori SERRANO Facility:[facility] Start: 12-05-2024 End: 12-05-[address] Lavon Vicente MD Work Phone: -[facility] Start: 12-05-2024 End: 12-05-[address] Kori Sethi MD -[facility] Start: 12-05-[address] Kori Sethi MD [facility] Start: 12-05-2024 End: 12-05-2024 ambulatory Kori SERRANO Facility:[facility] Start: 12-04-[address] Kori Sethi MD -[facility] Start: 12-04-2024 End: 12-04-2024 ambulatory Kori SERRANO Facility:[facility] Start: 10-06-2024 End: 10-06-[address] Lavon Vicente MD Work Phone: [facility] Work Phone: Start: 10-06-2024 End: 10-06-[address] Kori Sethi MD -[facility] Start: 10-06-2024 End: 10-06-2024 ambulatory Kori SERRANO Facility:[facility] Start: 09-06-2024 End: 09-06-[address] Lavon Vicente MD Work Phone: [facility] Work Phone: Start: 09-06-2024 End: 09-06-2024 Departed Referred Lavon Vicente -[facility] Start: 09-06-2024 End: 09-06-2024 ambulatory Lavon SERRANO Facility:[facility] Start: 07-25-2024 ambulatory Lavon Vicente Facility:[facility] Start: 07-25-[address] Kori Sethi MD -[facility] Start: 07-14-2024 ambulatory Kori SERRANO Facili ty:[facility] Start: 07-14-[address] Kori Sethi MD -[facility] Start: 07-07-2024 End: 07-07-[address] Kori Sethi MD [facility] Start: 07-07-2024 End: 07-07-2024 ambulatory Kori SERRANO Facility:[facility] Start: 07-05-2024 ambulatory Lavon Vicente Facility:[facility] Start: 07-05-[address] Kori Sethi MD -[facility] Start: 07-03-2024 End: 07-03-2024 Admission to same day surgery center Dr. Kenia Hammond MD [facility] Start: 07-03-2024 End: 07-03-2024 ambulatory Lavon Vicente Facility:[facility] Start: 07-03-2024 End: 07-03-[address] Kori Sethi MD -[facility] Start: 07-03-2024 End: 07-03-2024 ambulatory Lavon Vicente Facility:[facility] Start: 06-12-2024 End: 06-12-[address] Kori Sethi MD [facility] Start: 06-12-2024 End: 06-12-2024 ambulatory Lavon Vicente Facility:[facility] Start: 05-25-2024 ambulatory Lavon Vicente Facility:[facility] Start: 05-17-2024 End: 05-17-[address] LAVON VICENTE MD Facility:A Start: 05-17-2024 End: 05-17-2024 Patient encounter procedure LONI PAGE DIRECTOR PRODUCT MANAGEMENT-TRIAL LAWYER [facility] Start: 03-01-2024 End: 03-01-[address] CHERIE RENEE MD [facility] Start: 02-02-2024 End: 02-02-2024 ambulatory LONI PAGE DIRECTOR PRODUCT MANAGEMENT-TRIAL LAWYER Facility:A Start: 01-27-2024 End: 01-27-2024 ambulatory LONI PAGE DIRECTOR PRODUCT MANAGEMENT-TRIAL LAWYER Facility:B Start: 01-27-2024 End: 01-27-2024 Patient encounter procedure LONI PAGE DIRECTOR PRODUCT MANAGEMENT-TRIAL LAWYER [facility] Start: 10-21-2023 Dr. Lavon croft Work Phone: [facility] Start: 10-19-2023 End: 10-19-[address] Lavon Vicente Work Phone: [facility] Work Phone: Start: 10-19-2023 End: 10-19-2023 Dr. Lavon Vicente Work Phone: [facility] Work Phone: Start: 10-15-2023 Dr. Lavon Bernstein en Work Phone: [facility] Start: 10-01-2023 Dr. Lavon Bernstein en Work Phone: [facility] Start: 09-07-2023 End: 09-07-[address] Lavon Vicente Work Phone: [facility] Work Phone: Start: 09-07-2023 End: 09-07-2023 Dr. Lavon Vicente Work Phone: [facility] Start: 09-06-2023 End: 09-06-[address] Lavon Vicente Work Phone: [facility] Work Phone: Start: 09-06-2023 End: 09-06-2023 Dr. Lavon Vicente Work Phone: [facility] Start: 08-11-2023 End: 08-11-[address] Lavon Vicente Work Phone: [facility] Work Phone: Start: 08-11-2023 End: 08-11-2023 Dr. Lavon Vicente Work Phone: [facility] Start: 08-04-2023 End: 08-04-2023 ambulatory LONI PAGE APRN-CLEMETNINA Facility:A Start: 08-04-2023 End: 08-04-2023 Patient encounter procedure LONI PAGE APRN-TRIAL LAWYER [facility] Start: 07-28-2023 End: 07-28-[address] Lavon Vicente Work Phone: [facility] Work Phone: Start: 07-28-2023 End: 07-28-2023 Dr. Lavon Vicente Work Phone: [facility] Start: 07-14-2023 Dr. Lavon Bernstein en Work Phone: [facility] Start: 07-08-2023 Dr. Lavon Bernstein en Work Phone: [facility] Work Phone: Start: 07-07-2023 Dr. Lavon Bernstein en Work Phone: [facility] Work Phone: Start: 07-06-2023 Dr. Lavon Bernstein en Work Phone: [facility] Work Phone: Start: 07-06-2023 Dr. Lavon Bernstein en Work Phone: [facility] Start: 07-05-2023 Dr. Lavon Bernstein en Work Phone: [facility] Work Phone: Start: 07-04-2023 Dr. Lavon Bernstein en Work Phone: [facility] Work Phone: Start: 07-04-2023 Dr. Lavon Bernstein en Work Phone: [facility] Start: 07-03-2023 Dr. Lavon Bernstein en Work Phone: [facility] Work Phone: Start: 07-03-2023 Dr. Lavon Bernstein en Work Phone: [facility] Start: 07-03-2023 End: 07-08-2023 Dr. Lavon Vicente Work Phone: [facility]-Progressive Care Unit Work Phone: Start: 07-02-2023 End: 07-08-2023 Evaluation and management of inpatient [facility]-Intensive Care Unit Work Phone: Start: 07-01-2023 End: 07-01-2023 ambulatory LONI Herron CAMILO DIRECTOR PRODUCT MANAGEMENT-TRIAL LAWYER Facility:B Start: 07-01-2023 End: 07-01-2023 Patient encounter procedure LONI PAGE DIRECTOR PRODUCT MANAGEMENT-TRIAL LAWYER [facility] Start: 04-21-2023 End: 04-21-2023 ambulatory LONI PAGE DIRECTOR PRODUCT MANAGEMENT-TRIAL LAWYER Facility:A Start: 04-21-2023 End: 04-21-2023 Patient encounter procedure LONI PAGE DIRECTOR PRODUCT MANAGEMENT-TRIAL LAWYER [facility] Start: 03-17-2023 End: 03-17-2023 [facility] Start: 03-17-2023 End: 03-17-2023 Dr. Lav[facility] Vicente [facility] Start: 03-09-2023 End: 03-09-2023 Departed Referred [facility] Start: 02-26-2023 Dr. Lavon croft Work Phone: [facility] Start: 02-22-2023 End: 02-22-[address] Lavon Vicente Work Phone: [facility] Work Phone: Start: 02-22-2023 End: 02-22-2023 Dr. Lavon Vicente Work Phone: [facility] Start: 02-02-2023 End: 02-02-[address] Lavon Vicente Work Phone: [facility] Work Phone: Start: 02-02-2023 End: 02-02-2023 Dr. Lavon Vicente Work Phone: [facility] Start: 02-01-2023 End: 02-01-[address] Lavon Vicente Work Phone: [facility] Work Phone: Start: 02-01-2023 End: 02-01-2023 Dr. Lavon Vicente Work Phone: [facility] Start: 01-26-2023 End: 01-27-2023 Emergency department patient visit Dr. Lavon Vicente Work Phone: [facility] Work Phone: Start: 01-26-2023 End: 01-27-2023 Dr. Lavon Vicente Work Phone: [facility]-Emergency Department Work Phone: Start: 01-21-2023 End: 01-21-[address] Lavon Vicente Work Phone: [facility] Work Phone: Start: 01-21-2023 End: 01-21-2023 Dr. Lavon Vicente Work Phone: [facility] Start: 11-16-2022 Dr. Lavon Bernstein en Work Phone: [facility] Start: 11-15-2022 End: 11-16-2022 Evaluation and management of inpatient Dr. Lavon Vicente Work Phone: [facility] Work Phone: Start: 11-15-2022 End: 11-16-2022 Dr. Lavon Vicente Work Phone: [facility]-Medical Surgical 3 Start: 11-11-2022 End: 11-11-[address] Lavon Vicente Work Phone: [facility] Work Phone: Start: 11-11-2022 End: 11-11-2022 Dr. Lavon Vicente Work Phone: [facility] Start: 11-10-2022 Dr. Lavon croft Work Phone: [facility] Start: 11-09-2022 End: 11-09-2022 Emergency department patient visit Dr. Lavon Vicente Work Phone: [facility]-Emergency Department Start: 11-09-2022 End: 11-09-2022 Dr. Lavon Vicente Work Phone: [facility]-Emergency Department Start: 11-06-2022 End: 11-06-2022 Emergency department patient visit Dr. Lavon Vicente Work Phone: [facility]Emergency Department Start: 11-06-2022 End: 11-06-2022 Dr. Lavon Vicente Work Phone: [facility]-Emergency Department Start: 10-28-2022 End: 10-28-2022 Admission to same day surgery center [facility]. Lav[facility] Vicente [facility] Start: 10-28-2022 End: 10-28-[address] Lavon Vicente Work Phone: [facility] Work Phone: Start: 10-28-2022 End: 10-28-2022 Dr. Lav[facility] Vicente [facility] Start: 10-06-2022 End: 10-06-2022 ambulatory LAVON VICENTE Facility:[facility] Start: 10-06-2022 End: 10-06-2022 Patient encounter procedure Rosa Maria Martinez PA-C Work Phone: Urology Comment on above: Bladder stones (Prim jorge Dx); Paraplegia (HCC) Start: 09-18-2022 End: 09-18-[address] Lavon Vicente Work Phone: [facility] Work Phone: Start: 09-18-2022 End: 09-18-[address] Lavon Vicente Work Phone: [facility] Start: 09-18-2022 End: 09-18-2022 Dr. Lavon Vicente Work Phone: [facility] Start: 09-16-[address] Lavon herrera Work Phone: [facility] Start: 09-16-2022 Dr. Lavon Bernstein en Work Phone: [facility] Start: 09-14-2022 Non-patient / Non-visit Dr. Lavon Vicente Work Phone: [facility] Start: 09-14-2022 Dr. Lavon Bernstein en Work Phone: [facility] Start: 09-13-2022 Non-patient / Non-visit Dr. Lavon Vicente Work Phone: [facility] Start: 09-13-2022 Dr. Lavon Bernstein en Work Phone: [facility] Start: 09-12-2022 End: 09-14-2022 Evaluation and management of inpatient [facility]. Lavon Vicente [facility] Start: 09-12-2022 End: 09-14-2022 Dr. Lav[facility] Vicente [facility] Start: 07-24-2022 End: 07-24-2022 Emergency department patient visit Dr. Lavon Vicente Work Phone: [facility]-Emergency Department Start: 07-24-2022 End: 07-24-2022 Dr. Lavon Vicente Work Phone: [facility]-Emergency Department Start: 07-02-2022 End: 07-02-[address] Lavon Vicente Work Phone: [facility] Work Phone: Start: 07-02-2022 End: 07-02-[address] Lavon Vicente Work Phone: [facility] Start: 06-05-2022 Non-patient / Non-visit Dr. Lavon Vicente Work Phone: [facility] Start: 06-04-2022 Non-patient / Non-visit Dr. Lavon Vicente Work Phone: [facility] Start: 06-03-2022 Non-patient / Non-visit Dr. Lavon Vicente Work Phone: [facility] Start: 06-03-2022 End: 06-05-2022 Evaluation and management of inpatient [facility]-Intensive Care Unit Start: 03-27-2022 End: 03-27-2022 ambulatory [facility] Work Phone: Start: 03-27-2022 End: 03-27-2022 Departed Referred [place] [id number] Start: 03-27-2022 Registered Referred [place] [id number] Start: 03-18-2022 End: 03-18-2022 ambulatory [facility] Work Phone: Start: 03-18-2022 End: 03-18-2022 Departed Referred [place] [id number] Start: 03-18-2022 Registered Referred [place] [id number] Start: 02-27-2022 End: 02-27-2022 ambulatory [facility] Work Phone: Start: 02-27-2022 End: 02-27-2022 Departed Referred [place] [id number] Start: 02-27-2022 Registered Referred [place] [id number] Start: 02-19-2022 End: 02-19-2022 ambulatory [facility] Work Phone: Start: 02-19-2022 End: 02-19-2022 Departed Referred [place] [id number] Start: 01-13-2022 End: 01-13-2022 ambulatory [facility] Work Phone: Start: 01-13-2022 End: 01-13-2022 Departed Referred [place] [id number] Start: 01-09-2022 End: 01-09-2022 [facility] Start: 12-24-2021 End: 12-24-2021 Departed Referred [place] [id number] Start: 12-24-2021 Registered Referred [place] [id number] Start: 11-24-2021 End: 11-24-2021 Departed Referred [place] [id number] Start: 10-27-2021 End: 10-27-2021 Departed Referred [place] [id number] Start: 09-12-2021 End: 09-12-2021 [facility] Start: 08-21-2021 End: 08-21-2021 Departed Referred [place] [id number] Start: 08-21-2021 Registered Referred [place] [id number] Start: 08-13-2021 End: 08-13-2021 Departed Referred [place] [id number] Start: 07-28-2021 End: 07-28-[address] MAGDY VOGT MD [facility] Start: 07-21-2021 End: 07-21-2021 [facility] Start: 06-23-2021 End: 06-23-2021 Patient encounter procedure LONI PAGE APRN-TRIAL LAWYER [facility] Start: 06-16-2021 Registered Referred [place] [id number] Start: 05-27-2021 End: 05-27-2021 Emergency department patient visit [facility]Emergency Department Start: 05-26-2021 Registered Referred [place] [id number] Start: 04-09-2021 End: 04-09-2021 Patient encounter procedure LONI PAGE DIRECTOR PRODUCT MANAGEMENT-TRIAL LAWYER [facility] Start: 08-21-2018 EKG myocardial ischemia [facility] Procedures Date Procedure Procedure Detail [...] Work Phone: Start: 03-31-2024 Cystoscopy LONI MONTANEZ DIRECTOR PRODUCT MANAGEMENT-TRIAL LAWYER Start: 03-01-2024 Cystoscopy LONI MONTANEZ DIRECTOR PRODUCT MANAGEMENT-TRIAL LAWYER Start: 10-19-2023 CT of abdomen and pe lvis without contrast Dr. Lavon Vicente Work Phone: Start: 10-01-[address] Lavon Vicente Work Phone: Start: 09-06-[address] Lavon Vicente Work Phone: Start: 07-07-2023 [place] operation, litholapaxy Dr. Lavon Vicente Work Phone: [...] 05-26-2021 Urine culture Abdominal hysterectomy CHASE PAGE DIRECTOR PRODUCT MANAGEMENT-TRIAL LAWYER Bacteria identified in Blood by Culture Dr. Lavon Vicente Work Phone: Bacteria identified in Blood by Culture Dr. Lavon Vicente Work Phone: Closed fracture of c ervical spine (disorder) DR MAGDY VOGT MD Comment on above: c7 fracture after di ving accident causing quadraplegia H/O: tracheostomy LONI MONTANEZ DIRECTOR PRODUCT MANAGEMENT-TRIAL LAWYER Laparotomy LONI PAGE DIRECTOR PRODUCT MANAGEMENT-TRIAL LAWYER Comment on above: for repair of bowel [...] block/injection prone pos ANESTH N BLOCK/INJ PRONE [facility] Start: 03-02-2025 Njx dx/ther sbst intrlmnr lmbr/sac w/img gdn NJX INTERLAMINAR LMBR/SAC [facility] Start: 03-02-2025 Patient discharge [facility] Start: 07-03-2024 Njx dx/ther sbst intrlmnr lmbr/sac w/img gdn NJX INTERLAMINAR LMBR/SAC [facility] Start: 07-03-2024 Patient discharge [facility] Start: 07-08-2023 Patient discharge [facility] Start: 07-06-2023 Electrocardiographic monitoring [facility] Start: 07-06-2023 Consultation [facility] Start: 07-05-2023 [facility] Start: 07-04-2023 Care planning and problem solving actions [facility] Start: 07-03-2023 [facility] Start: 07-03-2023 Insertion of nasogastric tube [facility] Start: 07-03-2023 Electroencephalogram [facility] Start: 07-03-2023 Consultation [facility] Start: 07-03-2023 Following clinical pathway protocol [facility] Start: 07-03-2023 Cardiac monitoring [facility] Start: 07-03-2023 Catheterization of vein [facility] Start: 07-03-2023 Notification of physician [facility] Start: 07-03-2023 Contact precautions [facility] Start: 07-03-2023 Telemedicine consultation with patient [facility] Start: 07-03-2023 End: 07-03-2023 [facility] Start: 07-03-2023 Admission procedure [facility] Start: 07-02-2023 Hospital admission, emergency, from emergency room, medical nature [facility] Start: 07-02-2023 End: 07-03-2023 Blood culture [facility] Start: 07-02-2023 End: 07-02-2023 [facility] Start: 07-02-2023 Bacteria identified in Blood by Culture Blood Culture [facility] Start: 07-02-2023 Bacteria identified in Urine by Culture [facility] Start: 03-17-2023 Njx dx/ther sbst intrlmnr lmbr/sac w/img gdn [facility] Start: 03-17-2023 Patient discharge [facility] Start: 02-12-2023 Influenza vaccination INFLUENZA (Season Ended) [facility] Start: 11-22-2022 [facility] Start: 11-21-2022 [facility] Start: 11-20-2022 [facility] Start: 11-19-2022 [facility] Start: 11-18-2022 [facility] Start: 11-17-2022 [facility] Start: 11-16-2022 Patient discharge [facility] Start: 11-16-2022 Assessment of risk of venous thromboembolism [facility] Start: 11-16-2022 Consultation [facility] Start: 11-15-2022 Incentive spirometry [facility] Start: 11-15-2022 [facility] Start: 11-15-2022 Oxygen therapy [facility] Start: 11-15-2022 Following clinical pathway protocol [facility] Start: 11-15-2022 Assessment of risk of venous thromboembolism [facility] Start: 11-15-2022 Insertion of catheter into peripheral vein [facility] Start: 11-15-2022 Providing care according to standard [facility] Start: 11-15-2022 Referral to occupational therapist [facility] Start: 11-15-2022 Referral to service [facility] Start: 11-15-2022 [facility] Start: 11-15-2022 Admission procedure [facility] Start: 11-15-2022 Inhalation therapy procedure [facility] Start: 11-15-2022 Patient referral to dietitian [facility] Start: 11-14-2022 End: 11-14-2022 Blood culture [facility] Start: 11-14-2022 End: 11-15-2022 [facility] Start: 11-12-2022 [facility] Start: 11-09-2022 [facility] Start: 11-09-2022 End: 11-09-2022 Blood culture [facility] Start: 11-06-2022 [facility] Start: 10-28-2022 Radiography of spine [facility] Start: 10-28-2022 Anes dx/ther nerve block/injection prone pos [facility] Start: 10-28-2022 Njx dx/ther sbst intrlmnr lmbr/sac w/img gdn [facility] Start: 10-28-2022 Patient discharge [facility] Start: 09-14-2022 Patient discharge [facility] Start: 09-13-2022 Care planning and problem solving actions [facility] Start: 09-13-2022 [facility] Start: 09-13-2022 Respiratory secretion precautions [facility] Start: 09-12-2022 Following clinical pathway protocol [facility] Start: 09-12-2022 Assessment of risk of venous thromboembolism [facility] Start: 09-12-2022 Consultation [facility] Start: 09-12-2022 Elevation of head of bed [facility] Start: 09-12-2022 Incentive spirometry [facility] Start: 09-12-2022 Insertion of catheter into peripheral vein [facility] Start: 09-12-2022 Measuring intake and output [facility] Start: 09-12-2022 Oxygen therapy [facility] Start: 09-12-2022 Patient education [facility] Start: 09-12-2022 Providing care according to standard [facility] Start: 09-12-2022 Provision of activity privileges [facility] Start: 09-12-2022 Referral to occupational therapist [facility] Start: 09-12-2022 Referral to service [facility] Start: 09-12-2022 End: 09-12-2022 Blood culture [facility] Start: 09-12-2022 End: 09-12-2022 [facility] Start: 09-12-2022 Verification routine [facility] Start: 09-12-2022 Admission procedure [facility] Start: 09-12-2022 [facility] Start: 09-12-2022 End: 09-12-2022 [facility] Start: 07-24-2022 [facility] Start: 07-24-2022 [facility] Start: 07-24-2022 CT of head without contrast Brain/Head without Contrast [facility] Start: 07-24-2022 Plain chest X-ray Chest 1 View (Portable) [facility] Start: 06-14-2022 DEPRESSION ASSESSMENT DEPRESSION ASSESSMENT [facility] Start: 06-05-2022 Patient discharge [facility] Start: 06-05-2022 [facility] Start: 06-03-2022 Oxygen therapy [facility] Start: 06-03-2022 Following clinical pathway protocol [facility] Start: 06-03-2022 Assessment of risk of venous thromboembolism [facility] Start: 06-03-2022 Catheterization of vein [facility] Start: 06-03-2022 Incentive spirometry [facility] Start: 06-03-2022 Insertion of catheter into peripheral vein [facility] Start: 06-03-2022 Providing care according to standard [facility] Start: 06-03-2022 Provision of activity privileges [facility] Start: 06-03-2022 Referral to service [facility] Start: 06-03-2022 [facility] Start: 06-03-2022 Admission procedure [facility] Start: 06-03-2022 End: 06-04-2022 [facility] Start: 06-03-2022 End: 06-03-2022 Blood culture [facility] Work Phone: Start: 06-03-2022 Patient referral to dietitian [facility] Start: 01-09-2022 Anes dx/ther nerve block/injection prone pos ANESTH N BLOCK/INJ PRONE [facility] Work Phone: Start: 01-09-2022 Njx dx/ther sbst intrlmnr lmbr/sac w/img gdn NJX INTERLAMINAR LMBR/SAC [facility] Work Phone: Start: 01-09-2022 Patient discharge [facility] Work Phone: Start: 09-12-2021 Anes nerve musc tendon fascia & bursae upper leg ANESTH UPPER LEG SURGERY [facility] Work Phone: Start: 09-12-2021 Inject si joint arthrgrphy&/anes/steroid w/peter INJECT SACROILIAC JOINT [facility] Work Phone: Start: 09-12-2021 Fluoroscopic guidance [facility] Work Phone: Start: 09-12-2021 [facility] [facility] Work Phone: Start: 07-21-2021 Njx dx/ther sbst intrlmnr lmbr/sac w/img gdn NJX INTERLAMINAR LMBR/[facility] Work Phone: Start: 2019 COLOGUARD (FIT-DNA) COLOGUARD (FIT-DNA) [facility] Start: 2019 Colonoscopy COLONOSCOPY [facility] Start: 2019 COLORECTAL CANCER SCREENING COLORECTAL CANCER SCREENING [facility] Start: [address] COLONOGRAPHY [facility] Start: 2019 DIABETES SCREEN DIABETES SCREEN [facility] Start: 2019 FECAL OCCULT BLOOD FECAL OCCULT BLOOD [facility] Start: 2019 LIPID SCREEN LIPID SCREEN [facility] Start: 2019 SIGMOIDOSCOPY SIGMOIDOSCOPY [facility] Start: 2014 Mammography MAMMOGRAM [facility] Start: 01-11-2004 HPV TESTING HPV TESTING [facility] Start: 1995 PAP TESTING PAP TESTING [facility] Start: 1993 Urine microalbumin profile DTAP,TDAP,TD (1 - Tdap) [facility] Start: 01-11-1992 HEPATITIS C SCREENING HEPATITIS C SCREENING [facility] Start: 01-11-1992 HIV SCREENING HIV SCREENING [facility] Start: 1974 HEPATITIS B (1 of 3 - 3-dose series) HEPATITIS B (1 of 3 - 3-dose series) [facility] Alanine aminotransfe rase [Enzymatic activity/volume] in Serum or Plasma [facility] Albumin [Mass/volume ] in Serum or Plasma [facility] Alkaline phosphatase [Enzymatic activity/volume] in Serum or Plasma [facility] Anion gap measurement [facility] Aspartate aminotrans ferase [Enzymatic activity/volume] in Serum or Plasma [facility] Bacteria identified in Blood by Culture Blood Culture [facility] Bacteria identified in Urine by Culture Urine Culture [facility] Bacteria identified in Urine by Culture [facility] Bilirubin measurement, urine [facility] Bilirubin, total measurement [facility] Blood ammonia measurement [facility] Blood culture [facility] Work Phone: BUN/Creatinine ratio [facility] Calcium [Mass/volume ] in Serum or Plasma [facility] Carbon dioxide, tota l [Moles/volume] in Serum or Plasma [facility] Chloride [Moles/volu me] in Serum or Plasma [facility] Creatinine [Moles/vo lume] in Serum or Plasma [facility] Glucose [Mass/volume ] in Serum or Plasma [facility] Hematocrit [Volume F raction] of Blood [facility] Hemoglobin [Mass/vol ume] in Blood [facility] Hemoglobin [Presence ] in Urine [facility] Lactic acid measurement [facility] Lactic acid measurement [facility] Lactic acid measurement [facility] Leukocytes [#/volume ] in Blood [facility] Mean corpuscular hem oglobin concentration determination [facility] Mean corpuscular hem oglobin determination [facility] Measurement of keton es in urine using dipstick [facility] Measurement of renal function [facility] Microscopic urinalysis [facility] Neutrophil count [facility] Neutrophil percent differential count [facility] Patient Education [facility] Work Phone: Patient referral [facility] Work Phone: pH of Urine [facility] Platelets [#/volume] in Blood [facility] Potassium [Moles/vol ume] in Serum or Plasma [facility] Red blood cell count [facility] Red cell distributio n width determination [facility] Sodium [Moles/volume ] in Serum or Plasma [facility] Specific gravity of Urine [facility] Total protein measurement [facility] Urea nitrogen [Mass/ volume] in Serum or Plasma [facility] Urinalysis, blood, qualitative [facility] Urine culture Urine Culture [facility] Urine culture [facility] Urine culture [facility] Urine dipstick for glucose [facility] Urine dipstick for l eukocyte esterase [facility] Urine dipstick for nitrite [facility] Urine dipstick for protein [facility] Urine examination [facility] Urine microscopy: ep ithelial cells [facility] Urine Microscopy: white cells [facility] Urobilinogen [Presen ce] in Urine [facility] End: 11-05-2023 US KIDNEY/BLADDER US KIDNEY/BLADDER Radiology Routine Bladder stones 1 Occurrences starting 10/06/2022 until 11/05/2023 [facility] Work Phone: Comment on above: 1 Occurrences starting 10/06/2022 until 11/05/2023 [facility] Immunizations Immunization Date Immunization Notes Care Provider Caroline bush 06-23-2022 Covid Pfizer Bivalen t Booster Dr. Lavon Vicente Work Phone: [facility] 03-24-2021 Covid (Pfizer) Dr. Lavon syed Work Phone: [facility] 07-10-2020 Covid (Pfizer) Dr. Lavon syed Work Phone: [facility] 06-19-2020 Covid (Pfizer) Dr. Lavon syed Work Phone: [facility] 04-12-2018 Influenza virus vaccine [facility] 05-27-2016 influenza, injectabl e, quadrivalent, preservative free Dr. Lavon Vicente Work Phone: [facility] 05-27-2016 influenza, seasonal, injectable [facility] 03-17-2014 influenza, injectabl e, quadrivalent, preservative free Dr. Lavon Vicente Work Phone: [facility] 03-17-2014 influenza, seasonal, injectable [facility] 03-24-2013 Influenza virus vaccine [facility] 03-24-2013 influenza, injectabl e, quadrivalent, preservative free Dr. Lavon Vicente Work Phone: [facility] 03-24-2013 influenza, seasonal, injectable Dr. Lavon Vicente Work Phone: [facility] 03-18-2011 Pneumococcal Vaccine [facility] Work Phone: 03-18-2011 pneumococcal vaccine , unspecified formulation [facility] 11-12-2010 tetanus toxoid, redu chirag diphtheria toxoid, and acellular pertussis vaccine, adsorbed Dr. Lavon Vicente Work Phone: [facility] Payers Date Payer Category Payer Self-pay [id number] 2022 Medicare UHC MEDICARE [facility] MEDICARE ADVANTAGE PPO [id number] 2022-Present [phone] [address] [address] [place] [address] PPO [id number] 2022 Unknown [id number] 2019 Private Health Insurance [id number] 2014 Medicaid [id number] 2014 Unknown [id number] 2009 Unknown [id number] 1974 Unknown [id number] 2.16.840.1.822053.3.579.2. 1974 Unknown [id number] 2.16840.1.053916.3.579.2. 1974 Unknown [id number] 2.16840.1.364234.3.579.2. 1974 Unknown [id number] 2.16840.1.033768.3.579.2. 1974 Unknown [id number] 2.840.1.665886.3.579.2. 1974 Unknown [id number] 2.840.1.783554.3.579.2. 1974 Unknown [id number] 2.840.1.398296.3.579.2. 627 Unknown [id number] Unknown [id number] 2.16.840.1.941047.3.579.2. 462 Unknown [id number] 2.16840.1.752109.3.579.2. 462 Unknown [id number] 2.16840.1.450573.3.579.2. 462 Unknown [id number] 2.16840.1.288048.3.579.2. 462 Unknown [id number] 2.16840.1.104330.3.579.2. 462 Unknown [id number] 2.16840.1.180097.3.579.2. 462 Unknown [id number] 2.16840.1.652303.3.579.2. 462 Unknown [id number] 2.16840.1.179052.3.579.2. 462 Unknown [id number] 2.16.840.1.900385.3.579.2. 462 Unknown [id number] 2.16.840.1.950620.3.579.2. 462 Unknown [id number] 2.16.840.1.100443.3.579.2. 462 Unknown [id number] 2.16.840.1.231400.3.579.2. 462 Unknown [id number] 2.16.840.1.608317.3.579.2. 462 Unknown [id number] 2.16.840.1.529294.3.579.2. 462 Unknown [id number] 2.16.840.1.936792.3.579.2. 462 Unknown [id number] 2.16.840.1.236140.3.579.2. 462 Unknown [id number] 2.16.840.1.619459.3.579.2. 462 Unknown [id number] 2.16.840.1.072173.3.579.2. 462 Unknown [id number] 2.16.840.1.934342.3.579.2. 462 Unknown [id number] 2.16.840.1.579197.3.579.2. 462 Social History Date Type Detail Facility Start: 04-03-2019 End: 02-28-2025 Never smoked tobacco (finding) [facility] Start: 1975 Sex Assigned At Female A [facility] Start: 05-27-2021 End: 07-02-2023 Tobacco smoking status MEIS Unknown if ever smoked [facility] Start: 01-30-[address] [facility] Start: 08-28-2018 Skilled Nursing [facility] Start: 08-08-2019 Non-smoker [facility] Start: 04-05-2019 Tobacco use and exposure Smokeless tobacco non-user [facility] Start: 10-06-2022 Alcohol intake Current non-dr dental director of alcohol (finding) [facility] Start: 1975 Sex Assigned At Not on file [facility] Start: 02-06-2020 End: 09-29-2024 Sex Female (finding) [facility] Not [facility] Sexual Orientation [facility] ospital NEGATED: Highlighted row [facility] Goals Date Patient Goal Desired Activity /State Functional Status Date Assessment Result Facility 03-01-2024 Functional Status Awake, Other: up to wheelchair with terra and 3 assist [facility] 03-01-2024 Functional Status [facility] 03-01-2024 Functional Status [facility] 03-01-2024 Functional Status Maintained [facility] 07-08-2023 Functional status Bedrest [facility] Work Phone: 11-16-2022 Functional status Bedrest [facility] Work Phone: 09-14-2022 Functional status Bedrest [facility] Work Phone: 06-05-2022 Functional status Bedrest [facility] Work Phone: Mental Status Date Assessment Result Facility 03-02-2025 Cognitive function Voice/Name [facility] Work Phone: 07-03-2024 Cognitive function Voice/Name [facility] Work Phone: 03-01-2024 Mental Status Oriented x 4 [facility] 03-01-2024 Mental Status [facility] 03-01-2024 Mental Status Orientation Asse ssment Oriented x 4 [facility] 07-08-2023 Cognitive function [facility]/Name [facility] Work Phone: 07-02-2023 Cognitive function Level Of Consciousness Awake [facility] Work Phone: 03-17-2023 Cognitive function Voice/Name [facility] Work Phone: 11-16-2022 Cognitive function Voice/Name [facility] Work Phone: 11-06-2022 Cognitive function Deep Pain [facility] Work Phone: 10-28-2022 Cognitive function Voice/Name [facility] Work Phone: 09-14-2022 Cognitive function Voice/Name [facility] Work Phone: 07-24-2022 Cognitive function Voice/Name [facility] Work Phone: 06-05-2022 Cognitive function Voice/Name [facility] Work Phone: 06-03-2022 Cognitive function Voice/Name [facility] Work Phone: 01-09-2022 Cognitive function Voice/Name [facility] Work Phone: 09-12-2021 Cognitive function Voice/Name [facility] Work Phone: 07-21-2021 Cognitive function Voice/Name [facility] Work Phone: 05-27-2021 Cognitive function Level Of Cons ciousness Awake;Alert;Appropriate;Follow s Commands [facility] Work Phone: Clinical Notes 01-15-2021 to 03-13-2025 Radiology Note Date & Type Note Facility 03-13-2025 Evaluation + Plan note Future Scheduled TestsXR Abdomen AP 03/13/25XR Abdomen AP 09/10/25 [facility] 03-02-2025 Radiology Diagnostic study note [facility] Imaging Services [address] [place] [address] Fluor Guidance for Spine Inj MR#: [id number] Acct: [id number] Name: HENRIK REED Rep #: [id number] : 1975 F 50 From: Jeff Galvez MD PCP: Dr. Lavon Vicente MD Status: REG S DC Study:Fluor Guidance for Spine Inj Date of Ex am: 03/02/25 Exam# [id number] Ordering Dr: Brett Hammond MD PROCEDURE: FLUOR [...] services provided for caudal block. Reading Location: [place] [address] CC: Dr. Kenia Hammond MD; Dr. Lavon Vicente MD ~ Roulette Dealer: Signed [facility] 03-02-2025 Consult note [facility] 03-02-2025 Consult note [facility] 03-02-2025 Consult note Note Date/Time March 02, 2025 10:25am [facility] Medical Records Department [address] [place] [address] Pre-Anesthesia Evaluation 03/02/25 1024 MR#: [id number] Acct: [id number] Name: HENRIK REED Rep #:[id number] : 1975 50 From: Corey Lauren MD PCP: Dr. Lavon Vicente MD Status:REG S DC Y Race: C Location: [place] [address] ASA Classification* ASA Classification ASA Classification: 3 [...] Procedure(s): BLOCK,CAUDAL Anesthesia History Anesthesia History - desulfurizer operator: Anesthesia History - desulfurizer operator Hx Hospitalization No 02/28/25 15:41 Any Problems [...] take am of surgery PONV PONV - desulfurizer operator: PONV - desulfurizer operator Female Yes 02/28/25 15:41 HX of Motion [...] 03/02/25 10:10 Respiratory Assessment Respiratory Assessment - desulfurizer operator: Respiratory Tract Infection Hx - desulfurizer operator Hx Respiratory Tract Infection No 02/28/25 15:41 STOP Sleep Apnea STOP Sleep Apnea - desulfurizer operator: STOP Sleep Apnea - desulfurizer operator Hx Hypertension No 02/28/25 15:41 Hx Sleep [...] Tobacco Use History Tobacco Use History - desulfurizer operator: Tobacco Use History - desulfurizer operator Tobacco Use Smoking Status Never smoker 02/28/25 15:41 Hx Tobacco Use No 02/28/25 15:41 Years Smoking Packs Smoked per Day Smoking Cessation Date was within the last 15 years Hx Smoking Cessation Date Hx Smoking Cessation Counseling Hematologic Medial History Hematologic Hx - desulfurizer operator: 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 Hx of Blood Transfusion Yes 02/28/25 15:41 [...] confused, unrespo /Reproduction History /Reproductive History - desulfurizer operator: /Reproductive Hx- desulfurizer operator Hx Now No 02/28/25 15:41 Gestational Age [...] reflux History of stress test Lives in half-way On home oxygen therapy History of edema MRSA (methicillin resistant staph aureus) culture positive Seizure 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 Lavon Vicente MD Status:REG S DC Y Race: C Location: [place] [address] ASA Classification* ASA Classification ASA Classification: 3 [...] Procedure(s): BLOCK,CAUDAL Anesthesia History Anesthesia History - desulfurizer operator: Anesthesia History - desulfurizer operator Hx Hospitalization No 02/28/25 15:41 Any Problems [...] take am of surgery PONV PONV - desulfurizer operator: PONV - desulfurizer operator Female Yes 02/28/25 15:41 HX of Motion [...] 03/02/25 10:10 Respiratory Assessment Respiratory Assessment - desulfurizer operator: Respiratory Tract Infection Hx - desulfurizer operator Hx Respiratory Tract Infection No 02/28/25 15:41 STOP Sleep Apnea STOP Sleep Apnea - desulfurizer operator: STOP Sleep Apnea - desulfurizer operator Hx Hypertension No 02/28/25 15:41 Hx Sleep [...] Tobacco Use History Tobacco Use History - desulfurizer operator: Tobacco Use History - desulfurizer operator Tobacco Use Smoking Status Never smoker 02/28/25 15:41 Hx Tobacco Use No 02/28/25 15:41 Years Smoking Packs Smoked per Day Smoking Cessation Date was within the last 15 years Hx Smoking Cessation Date Hx Smoking Cessation Counseling Hematologic Medial History Hematologic Hx - desulfurizer operator: 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 Hx of Blood Transfusion Yes 02/28/25 15:41 [...] confused, unrespo /Reproduction History /Reproductive History - desulfurizer operator: /Reproductive Hx- desulfurizer operator Hx Now No 02/28/25 15:41 Gestational Age [...] reflux History of stress test Lives in half-way On home oxygen therapy History of edema MRSA (methicillin resistant staph aureus) culture positive Seizure Neuromuscular dysfunction of bladder History of Cwbga-Amhqmorsn-Poyhe (WPW) syndrome Spinal cord injury (2010) Paraplegia [...] bisacodyl 10 mg rectal suppository 10 mg DE QHS PRN Co nstipation 03/01/18 04/21/21 History [...] 1025 > Date _ Corey Lauren MD Cosigner Signature: Date CC: ~ Signed [facility]09-18-2024 Hospital Discharge instructions Patient Education 03/01/2024 14:05:50 [...] chills please contact our office immediately at [phone], Option 1 for the nurse line. POST [...] including vitamins, herbs, eye drops, creams, and vzjv-hos-hialbsl medicines. Any problems you or family members [...] provider tells you to take them. ?Taking yhcl-nzf-eneevdx medicines, vitamins, herbs, and supplements. Follow instructions [...] 07/02/2005 Document Revised: 05/13/2018 Document Reviewed: 05/09/2018 [employer] Patient Education 2020 [employer]. 03/01/2024 14:01:34 1- [facility] General Discharge Guidelines (02/26/2023) (CUSTOM) JUAN JOSE [...] Up Care 02/10/2024 13:34:32 With:CHERIE RENEE MD, [facility], Urology Service Address: [address] [place] [address] [address] [place] [address] [phone] When: Unknown Comments:Follow-up as scheduled With:LONI PAGE, [facility], Urology Service Address: [address] [place] [address] [address] [place] [address] [phone] When: Unknown [facility] 09-18-2024 Summary of episode note Discharge Instructions Thank you for allowing [facility] to assist you with your healthcare needs. [...] 03/17/2024 10:20 AM EDT CHERIE RENEE MD [facility] Confirmed Follow Up Appointments Follow Up with CHERIE RENEE MD, [facility], Urology Service Where:[address] [facility] [address] [place] [address]- [phone] Additional Information: Follow-up as scheduled Follow Up with LONI PAGE, [facility] Where:[address] [facility] [address] [place] [address]- [phone] The Following Activity and Diet Have Been [...] for Constipation Unchanged potassium chloride (Potassium Chloride (Pbw-Ptcb-Asp M10) 10 mEq oral tablet, extended release) [...] chills please contact our office immediately at [phone], Option 1 for the nurse line. POST [...] including vitamins, herbs, eye drops, creams, and tnns-tww-yfurlua medicines. Any problems you or family members [...] tells you to take them. ? Taking ezem-yym-vzmncch medicines, vitamins, herbs, and supplements. Follow instructions [...] 07/02/2005 Document Revised: 05/13/2018 Document Reviewed: 05/09/2018 [employer] Patient Education 2020 [employer] JUAN JOSE SAME DAY SURGERY DISCHARGE [...] to receive it can visit one of [facility] vaccine clinics. There are many vaccine clinic locations within the [facility]. For locations and available times, please visit [email or web address] It is important to note that some COVID mobile vaccine clinics are held outdoors and may be canceled in rainy or stormy conditions. To learn more about pediatric vaccinations (ages 5-11), we invite you to visit the [facility] webpage. [email or web address] learn more about the COVID-19 vaccine, we invite you to visit the CDC website for a list of frequently asked questions.https://www.cdc.gov/coronavirus/2019-ncov/vaccines/faq.html [facility] Patient Portal Access Instructions: Stay connected with your healthcare team and access your personal medical information anytime with the [facility] Patient Portal. Please follow the directions below to create your [facility] account: 1.Access the email account you provided upon registration to the hospital/physician office.2.Look for an invitation email from [facility].3.Open the email and access the invitation link: AcceptInvitation to [facility].4.Fill in the required black to create your account. To access your account, visit [email or web address]. Click the blue button labeled "Access Patient Portal" and then log in with the username and password that you created in the steps above. You will be able to view your test results, lab results, a summary of your visits, upcoming appointments and more. There is also a convenient messaging option where you can send secure messages to your p [employer]. In addition, you will have the ability to download any documents or summaries to your computer and/or send the information securely to a physician. Remember that your healthcare information is confidential, so carefully consider who you will allowto register on the [facility] Patient Portal for access to your information. You can also access the [facility] Patient Portal on the [facility] [employer] magdalena. Simply click on "Patient Portal" and then log into your account. If you would like to receive a full copy of your medical records, please contact the [facility] Medical Records Department by calling [phone], Wednesday through Wednesday between 8 a.m. and [...] Call your local pharmacy or go to http://bit.ly/9J0Tv6q to find one close to you.3.Make use of household items: Use cat litter or old coffee grounds to dispose medications if other options arenot available. Mix your drugs with these household products, seal them in an airtight container andthrow it into the garbage. Call [facility]: [phone] to be sure your drugs can be [...] reviewed and explained to me and I,HENRIK REEDd my current condition and have read and understand these discharge instructions. I have received a written copy of the plan/instructions. If I have questions, I am aware that I should contact my doctor. Patient/Education Sales Consultant Signature: Date/Time: Relationship to Patient: Witness Name/Signature: Date/Time: [id number] Anesthesiology Consult note Patient: HENRIK REED Age: [...] YFN CANTU MD on 03/01/2024 01:26 PM [id number] History and physical note Date of Service [...] CHERIE RENEE MD on 03/01/2024 11:05 AM [id number] Anesthesiology Consult note Patient: HENRIK REED Age: [...] tab(s), Oral, qDay, 0 Refill(s) Potassium Chloride (Qgi-Mmcp-Ajz M10) 10 mEq oral tablet, extended release: [...] Medical Abdominal pain, acute / SNOMED CT 717488946 / Confirmed Anxiety disorder / SNOMED CT 477979048 / Confirmed Depression / SNOMED CT 715300236 / Confirmed Neurogenic bladder: s/p SPT (placed by Dr. Choi) / SNOMED CT 1504204568 / Confirmed Recurrent UTI / SNOMED CT 391111142 / Confirmed Bladder spasms / SNOMED CT 328669903 / Confirmed Chronic suprapubic catheter / SNOMED CT 2440254714 / Confirmed Bladder calculi / SNOMED CT 336437423 / Confirmed, Active Problems (20) Abdominal pain, [...] selected or recorded. Procedure history: H/O: tracheostomy (686208448). Abdominal hysterectomy (032506453). Laparotomy (442870028). Comments: 04/03/2019 11:42 EDT - ISAEL Oglesby for repair of bowel after hysterectomy Closed fracture of cervical spine (150294566). Comments: 07/28/2021 10:35 Brooke Dhaliwal RN c7 [...] Weight Lbs 250.1 lb Weight Method Actual [place] Body Weight 47.76 kg Admission Body Mass [...] records, Reviewed prior records. Assessment and Plan [place] [employer] Anesthesiologists (ASA) physical status classification: Class III. H/o hypothyroidism, chronic hypoxic resp insufficiency (4 LNC 04/01), Anxiety, Chronic suprapubic catheter, Depression, H/O quadriplegia, [...] YFN CANTU MD on 03/01/2024 12:36 PM [facility]dgnxrhx14-[facility]-3775 Note ORIGINAL EXAMINATION: 2 SUPINE XRAY VIEW(S) [...] Sign Date: 03/01/2024 2:10:42 PM Ordering Provider: HCERIE [facility]08-21-2024 Evaluation + Plan note Future Scheduled Tests Laboratory* Basic Metabolic Panel 02/02/24 * Complete Blood Count 02/02/24 Radiology* XR Abdomen AP 05/17/24 [facility] 08-15-2024 Note ORIGINAL EXAMINATION: ONE SUPINE [...] Sign Date: 01/27/2024 10:48:47 PM Ordering Provider: [facility]08-15-2024 Note ORIGINAL EXAMINATION: ULTRASOUND OF THE [...] Niko Rendon DO Preliminary Report By: Niko eRndon DO Electronically signed By Niko Rendon DO Dictated Date: 01/27/2024 1:15:11 PM Prelim Date: 01/27/2024 1:20:23 PM Sign Date: 01/27/2024 1:20:23 PM Ordering Provider: [facility]01-25-2024 Progress note Author Paul Walsh [facility] July 08, 2023 10:09am Note Date/Time July 08, 2023 1 0:09am [facility] Medical Records Department [address] [place] [address] Progress Note - Infect Disease 07/08/23 1008 MR#: [id number] Acct: [id number] Name: HENRIK REED Rep #:[id number] : 1975 48 From: Paul kapadia MD PCP: Dr. Lavon Vicente MD Status:ADM I N Location: [place] [address] Physical Exam Narrative Feeling better, no abd [...] Cosigner Signature (if applicable): CC: ~ Signed [facility] Work Phone: 1(656) 211-836501-24-2024 Progress note Author Raad Hope [facility] July 07, 2023 2:02pm Note Date/Time July 07, 2023 2 :02pm [facility] Medical Records Department [address] [facility] [place] [address] Progress Note - Hospitalist 07/07/23 1358 MR#: [id number] Acct: [id number] Name: HENRIK REED Rep #:[id number] : 1975 48 From: Raad Whaley PCP: Dr. Lavon Vicente MD Status:ADM I N Location: [place] [address] Reason for Visit Reason for Visit: Diagnoses [...] % (Auto) 52.7, Lymph % (Auto) 33.9, [place] % (Auto) 7.6, Eos % (Auto) 4.8, [...] 48 F was admitted on 07/02/2023 from [facility] for altered mental status. Per daughter she [...] Signed: Roosevelt Galvez MD at 11:35 EST Reading Location ID and State: [address] [place] [address] , Service support , Charges/Coding Visit Charges Inpatient E&M: 68311 Subs Hosp L2 07/07/23 1402 <Electronically signed by Raad Hope MD> Cosigner Signature (if applicable): CC: ~ Signed [facility] Work Phone: 1(935) 967-536901-24-2024 Procedure [facility] 07-06-2023 Progress note Author Raad Hope [facility] July 06, 2023 4:34pm Note Date/Time July 06, 2023 4 :34pm [facility] Medical Records Department [address] [place] [address] Progress Note - Hospitalist 07/06/23 1625 MR#: [id number] Acct: [id number] Name: HENRIK REED Rep #:[id number] : 1975 48 From: Raad Whaley PCP: Dr. Lavon Vicente MD Status:ADM I N Location: [place] [address] Reason for Visit Reason for Visit: Diagnoses [...] % (Auto) 66.8, Lymph % (Auto) 21.7, [place] % (Auto) 6.5, Eos % (Auto) 4.0, [...] 48 F was admitted on 07/02/2023 from [facility] for altered mental status. Per daughter she [...] sq BID Charges/Coding Visit Charges Inpatient E&M: 26417 Subs Hosp L2 07/06/23 1634 <Electronically signed by Raad Hope MD> Cosigner Signature (if applicable): CC: ~ Signed [facility] Work Phone: 1(480) 844-198201-23-2024 Consult note Author Flaco Choi [facility] July 06, 2023 3:04pm Note Date/Time July 06, 2023 3 :04pm [facility] Medical Records Department [address] [place] [address] Consultation - Urology 07/06/23 1503 MR#: [id number] Acct: [id number] Name: HENRIK REED Rep #:[id number] : 1975 48 From: Flaco Choi MD PCP: Dr. Lavon Vicente MD Status:ADM I N Location: [place] [address] HPI Consult Data Date of Consult: 07/06/23 [...] operating room to laser the bladder stones. [facility] Medical History Abnormal EKG Chronic headaches Chronic pain Cocaine abuse Deep vein thrombosis of right lower extremity Depression Exogenous obesity Heroin use History of Wbqwz-Czknwzarq-Inwbv (WPW) syndrome Hx: UTI (urinary tract infection) [...] bisacodyl 10 mg rectal suppository 10 mg DE QHS PRN Constipation 03/01/18 [History Last Taken [...] % (Auto) 66.8, Lymph % (Auto) 21.7, [place] % (Auto) 6.5, Eos % (Auto) 4.0, [...] Jacklyn Queen DO; Klaudia Mercado MD~ Signed [facility] Work Phone: 1(232) 607-846801-23-2024 Procedure [facility] 07-06-2023 Progress note Author Paul [facility] July 06, 2023 10:28am Note Date/Time July 06, 2023 1 0:28am [facility] Medical Records Department [address] [place] [address] Progress Note - Infect Disease 07/06/23 1025 MR#: [id number] Acct: [id number] Name: HENRIK REED Rep #:[id number] : 1975 48 From: Paul kapadia MD PCP: Dr. Lavon Vicente MD Status:ADM I N Location: [place] [address] Physical Exam Narrative C/o moderate abd pain, [...] Cosigner Signature (if applicable): CC: ~ Signed [facility] Work Phone: 1(993) 471-356801-22-2024 Consult note Author Paul Walsh [facility] July 05, 2023 3:18pm Note Date/Time July 05, 2023 3 :19pm [facility] Medical Records Department [address] [place] [address] Consultation - Infectious Dx 07/05/23 1516 MR#: [id number] Acct: [id number] Name: HENRIK REED Rep #:[id number] : 1975 48 From: Paul kapadia MD PCP: Dr. Lavon Vicente MD Status:ADM I N Location: [place] [address] Assessment & Plan Assessment/Plan (1) VRE infection [...] performed and neg except as noted above. [facility] Medical History Abnormal EKG Chronic headaches Chronic pain Cocaine abuse Deep vein thrombosis of right lower extremity Depression Exogenous obesity Heroin use History of Uwiej-Ulzgabmzy-Gpwcg (WPW) syndrome Hx: UTI (urinary tract infection) [...] bisacodyl 10 mg rectal suppository 10 mg DE QHS PRN Constipation 03/01/18 [History Last Taken [...] % (Auto) 55.0, Lymph % (Auto) 33.4, [place] % (Auto) 7.5, Eos % (Auto) 3.1, [...] Poss Enterococcus sp Gram negative luann#2 07/05/23 5438 <Electronically signed by Paul Walsh MD> Cosigner Signature (if applicable): CC: Wendy Correa; Margarita Cortez; Jonna Mansfield; Urbano Wagner; Alana Cavazos MD;Harper Quach MD; Tyrell Rodriguez MD; Dulce Livingston MD; Dr. Kendy Mccarthy MD; Dr. Renzo De Paz DO; Dr. Javier Alfredo MD; Dr. Shelly Fernandez MD; Dr. Roman Saunders MD; Dr. John Minor MD; Dr. Kveen Joseph DO; Dr. Fernando Salcedo MD; Dr. Jes Dumont MD; Dr. Shari Pastor MD; Dr. Lavon Vicente MD; Dr. Duane Reyna MD; Dr. Paul Walsh MD; Dr. Jono Sharp MD; Dr. Heidi Carmona MD; Beba Lewis MD; Yaya Neff MD; Anabell Patterson DO; MD Woody; Jacklyn Queen DO; Klaudia Mercado MD~ Signed [facility] Work Phone: 1(823) 403-741201-22-2024 Progress note Author Raad Hope [facility] July 05, 2023 2:43pm Note Date/Time July 05, 2023 9 :18am [facility] Medical Records Department [address] [place] [address] Progress Note - Hospitalist 07/05/23912 MR#: [id number] Acct: [id number] Name: HENRIK REED Rep #:[id number] : 1975 48 From: Raad Whaley PCP: Dr. Lavon Vicente MD Status:ADM I N Location: [place] [address] Reason for Visit Reason for Visit: Diagnoses [...] % (Auto) 55.0, Lymph % (Auto) 33.4, [place] % (Auto) 7.5, Eos % (Auto) 3.1, [...] 48 F was admitted on 07/02/2023 from [facility] for altered mental status. Per daughter she [...] sq BID Charges/Coding Visit Charges Inpatient E&M: 88523 Subs Hosp L2 07/05/23 1443 <Electronically signed by Raad Hope MD> Cosigner Signature (if applicable): CC: ~ Signed [facility] Work Phone: 1(262) 429-371501-22-2024 Progress note Author Francisco Pitts [facility] July 05, 2023 11:33am Note Date/Time July 05, 2023 8 :19am [facility] Medical Records Department [address] [place] [address] Progress Note - Coil Shaper 07/05/23 0819 MR#: [id number] Acct: [id number] Name: HENRIK REED Rep #:[id number] : 1975 48 From: Francisco Pitts PCP: Dr. Lavon Vicente MD Status:ADM I N Location: [place] [address] Assessment & Plan Assessment/Plan (1) Sepsis: PLAN: [...] noted above. This note was generated with DocVerseation software. It may contain incorrectwords, spelling, and [...] % (Auto) 55.0, Lymph % (Auto) 33.4, [place] % (Auto) 7.5, Eos % (Auto) 3.1, [...] flat affect Charges/Coding Visit Charges Inpatient E&M: 89456 Subs Hosp L2 07/05/23 1133 <Electronically signed by Francisco Pitts DO> Cosigner Signature (if applicable): CC: ~ Signed [facility] Work Phone: 1(203) 153-800801-21-2024 Progress note Author Shari Pastor [facility] July 04, 2023 11:07am Note Date/Time July 04, 2023 6 :54am [facility] Medical Records Department [address] [facility] [place] [address] Progress Note - Hospitalist 07/04/23 0651 MR#: [id number] Acct: [id number] Name: HENRIK REED Rep #:[id number] : [...] % (Auto) 59.8, Lymph % (Auto) 30.5, [place] % (Auto) 7.8, Eos % (Auto) 1.1, [...] pain; on Buprenorphine patch who presents to [facility] ER 07/02/2023 from [facility] for altered mental status. Per daughter she [...] documentation, 37Minutes Charges/Coding Visit Charges Inpatient E&M: 02943 Subs Hosp L2 07/04/23 1107 <Electronically signed by Shari Pastor MD> Cosigner Signature (if applicable): CC: ~ Signed [facility] Work Phone: 1(135) 693-557401-21-2024 Progress note Author Jonna Mansfield [facility] July 04, 2023 10:09am Note Date/Time July 04, 2023 9 :50am [facility] Medical Records Department [address] [place] [address] Progress Note - Neurology 07/04/23 0942 MR#: [id number] Acct: [id number] Name: HENRIK REED Rep #:[id number] : [...] home baclofen and discontinue Keppra. [place] [facility] [place] for the following reasons: none I personally attended this patient and spent a total time of 30 minutes evaluating this patient including clinical assessment, review of chart, medical history imaging, and determining appropriate treatment and workup. Jonna Mansfield MD [facility] Neurology Department Subject: Neurology Subjective HENRIK [...] moderate degree of encephalopathy. EEG performed by: [facility] JOHNSON Brown [facility] JOHNSON Brown M.D. 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 Detailed reflex exam as performed by the nurse/MAGDALENA and witnessed by the physician: R L Biceps Patellar Ankle Babinski -? Tone: is normal and bulk is normal -? Sensation- Intact to light touch bilaterally -? Coordination: No dysmetria on qhcoxf-ngnb-gwdjyz, finger follow finger or ncjz-ecai-dmrd. -? Gait- Gait initiation was normal. Narrow base with good heel strike and stride length was observed during ambulation. Turns were in stride. Patient was able to walk normally in tandem. Romberg was normal. 07/04/23 1009 <Electronically signed by Jonna Mansfield MD> Cosigner Signature (if applicable): CC: ~ Signed [facility] Work Phone: 1(943) 937-195901-21-2024 Progress note Author Francisco Pitts [facility] July 04, 2023 6:23am Note Date/Time July 04, 2023 5 :40am [facility] Medical Records Department [address] [place] [address] Progress Note - Coil Shaper 07/04/23 0538 MR#: [id number] Acct: [id number] Name: HENRIK REED Rep #:[id number] : [...] noted above. This note was generated with SOLO dictation software. It may contain incorrectwords, spelling, [...] % (Auto) 59.8, Lymph % (Auto) 30.5, [place] % (Auto) 7.8, Eos % (Auto) 1.1, [...] flat affect Charges/Coding Visit Charges Inpatient E&M: 24124 Subs Hosp L2 07/04/23622 <Electronically signed by Francisco Pitts DO> Cosigner Signature (if applicable): CC: ~ Signed [facility] Work Phone: 1(516) 717-653001-21-2024 Consult note Author Francisco [facility] July 04, 2023 5:38am Note Date/Time July 03, 2023 6 :09am [facility] Medical Records Department [address] [place] [address] Consultation - Coil Shaper 07/03/23604 MR#: [id number] Acct: [id number] Name: HENRIK REED Rep #:[id number] : [...] noted above. This note was generated with DocVerseation software. It may contain incorrectwords, spelling, and [...] The patient currently [facility] a local [facility] facility. She has a history of morbid obesity, hypothyroidism, baseline quadriplegia, neurogenic bladder with suprapubic catheter and frequent UTIs, history of VRE, Ncalm-Ozrbwpfof-Wrbsk syndrome, chronic pain syndrome and chronic wounds. [...] present time. Her lactic acidemia has resolved. [facility] Medical History Abnormal EKG Chronic headaches Chronic pain Cocaine abuse Deep vein thrombosis of right lower extremity Depression Exogenous obesity Heroin use History of Mzbpe-Rxhfytafr-Yfifu (WPW) syndrome Hx: UTI (urinary tract infection) [...] bisacodyl 10 mg rectal suppository 10 mg DE QHS PRN Constipation 03/01/18 [History Last Taken [...] % (Auto) Cancelled, Lymph % (Auto) Cancelled, [place] % (Auto) Cancelled, Eos % (Auto) Cancelled, [...] Tear DropCells Cancelled, Ovalocytes Cancelled, Stomatocytes Cancelled, [place] Bodies Cancelled, [place] Cells Cancelled, Bite Cells Cancelled, Crenated Cell [...] Clarity Turbid, Urine pH 7.0, Ur Specific [place] 1.010, Urine Protein 500 H, Urine Glucose [...] 86.2 H, Lymph % (Auto) 8.7 L, [place] % (Auto) 4.0, Eos % (Auto) 0.3, [...] 23:56 EST Reading Location ID and State: [employer] / [employer] Tel , Service support , Brain CT 07/02/23 23:25 IMPRESSION: Normal unenhanced CT scan of the brain. Acute left sphenoid sinusitis Electronically Signed: Yuri Cerna MD at 23:45 EST Reading Location ID and State: [id number] / [employer] Tel , Service support , Charges/Coding Visit Charges Inpatient E&M: 98262 Init Hosp L3 07/04/23 0538 <Electronically signed [...] Jacklyn Queen DO; Klaudia Mercado MD~ Signed [facility] Work Phone: 1(862) 698-406901-21-2024 Consult note Author Alana Cavazos [facility] July 04, 2023 12:09am Note Date/Time July 03, 2023 1 2:57pm [facility] Medical Records Department [address] [place] [address] Consultation - Neurology 07/03/23 1255 MR#: [id number] Acct: [id number] Name: HENRIK REED Rep #:[id number] : [...] pain; on Buprenorphine patch who presents to [facility] ER 07/02/2023 from [facility] for altered mental status. Per daughter she [...] Unable to maintain enteral access d/t confusion [facility] Medical History Abnormal EKG Chronic headaches Chronic pain Cocaine abuse Deep vein thrombosis of right lower extremity Depression Exogenous obesity Heroin use History of Iwtqm-Httwhepon-Nzkti (WPW) syndrome Hx: UTI (urinary tract infection) [...] bisacodyl 10 mg rectal suppository 10 mg DE QHS PRN Constipation 03/01/18 [History Last Taken [...] % (Auto) Cancelled, Lymph % (Auto) Cancelled, [place] % (Auto) Cancelled, Eos % (Auto) Cancelled, [...] Drop Cells Cancelled, Ovalocytes Cancelled, Stomatocytes Cancelled, [place] Bodies Cancelled, [place] Cells Cancelled, Bite Cells Cancelled, Crenated Cell [...] Clarity Turbid, Urine pH 7.0, Ur Specific [place] 1.010, Urine Protein 500 H, Urine Glucose [...] 86.2 H, Lymph % (Auto) 8.7 L, [place] % (Auto) 4.0, Eos % (Auto) 0.3, [...] Reading Location ID and State: 1407 / [employer] Tel , Service support , Brain CT 07/02/23 23:25 IMPRESSION: Normal unenhanced CT scan of the brain. Acute left sphenoid sinusitis Electronically Signed: Yuri Cerna MD at 23:45 EST , Active Medications Active Medications Active Medications: [...] mls @ 15 mls/hr 07/03/23 00:56 IV .[id number] PRN Additional IVPB Infusion Sodium Chloride 250 mls @ 15 mls/hr 07/03/23 00:56 IV .[id number] PRN Saline Flush Potassium Chloride 10 meq in 100 mls @ 100 mls/hr 07/03/23 11:00 07/03/23 12:28 IV BOLUS 07/03/23 12:59 100 mls/hr Q1H MIRIAM Administration Lactobacillus Acidophilus 2 tablet 07/03/23 10:00 07/03/23 09:38 Lactobacillus Acidophilus PO Not Given BID [facility] Levothyroxine Sodium 75 mcg 07/03/23 06:00 07/03/23 05:01 Levothyroxine 75 Mcg Tablet PO Not Given 0600 [facility] Loperamide HCl 2 mg 07/03/23 00:50 Loperamide 2 Mg Capsule PO Q4H PRN PRN Diarrhea Loratadine 10 mg 07/03/23 10:00 Loratadine 10 Mg Tablet PO DAILY PRN allergies Magnesium Hydroxide 30 ml 07/03/23 00:50 Magnesium Hydroxide 30 Ml Udc PO DAILY PRN Constipation Melatonin 5 mg 07/03/23 22:00 Melatonin 10 Mg Tablet PO QHS [facility] Miconazole Nitrate 1 applic 07/03/23 10:00 07/03/23 10:48 Miconazole Nitrate 43 Gm Bottle TOPICAL 1 applic BID [facility] Administration Protocol Pantoprazole Sodium 20 mg 07/03/23 12:00 07/03/23 11:58 Pantoprazole Sodium 20 Mg Tablet PO Not Given LUNCH [facility] Paroxetine HCl 20 mg 07/03/23 22:00 Paroxetine 20 Mg Tablet PO QHS [facility] Phenazopyridine HCl 190 mg 07/03/23 00:50 Phenazopyridine 95 Mg Tablet PO TID PRN PRN Bladder Spasms Polyethylene Glycol 17 gm 07/03/23 22:00 Polyethylene Glycol 3350 17 Gm Packet PO QHS [facility] Potassium Chloride 10 meq 07/03/23 12:00 07/03/23 11:57 Potassium Chloride Oral Tablet 10 Meq PO Not Given LUNCH [facility] Senna 1 tablet 07/03/23 10:00 07/03/23 09:40 Senna Tablet PO Not Given BID [facility] Simethicone 80 mg 07/03/23 00:50 Simethicone 80 Mg Chewable Tablet PO DAILY PRN PRN Gastric Reflux Sodium Chloride 10 - 40 ml 07/03/23 00:56 07/03/23 02:16 0.9% Saline Lock 10 Ml Syringe IV 20 ml UD PRN Administration SALINE FLUSH Tolterodine Tartrate 4 mg 07/03/23 10:00 07/03/23 09:40 Tolterodine Tartrate 4 Mg Cap.Sa PO Not Given DAILY [facility] Trazodone HCl 50 mg 07/03/23 22:00 Trazodone 50 Mg Tablet PO QHS [facility] 07/04/23 0009 <Electronically signed by Alana Cavazos [...] Jacklyn Queen DO; Klaudia Mercado MD~ Signed [facility] Work Phone: 1(907) 452-574101-20-2024 Progress note Author Shari Pastor [facility] July 03, 2023 9:18am Note Date/Time July 03, 2023 7 :29am [facility] Medical Records Department [address] [place] [address] Progress Note - Hospitalist 07/03/23 0723 MR#: [id number] Acct: [id number] Name: HENRIK REED Rep #:[id number] : [...] pain; on Buprenorphine patch who presents to [facility] ER 07/02/2023 from [facility] for altered mental status. Per daughter she [...] Cosigner Signature (if applicable): CC: ~ Signed [facility] Work Phone: 1(172) 106-685301-20-2024 History and physical note Author Renzo Del Angel [facility] July 03, 2023 7:04am Note Date/Time July 02, 2023 1 1:17pm [facility] Medical Records Department [address] [place] [address] [place] [address] H&P Exam - Hospitalist 07/02/23 9627 MR#: [id number] Acct: [id number] Name: HENRIK REED Rep #:[id number] : 1975 48 From: Renzo Oneill DO PCP: Dr. Lavon Vicente MD Status:ADM I N Location: ICU CVICU20 06-14 HPI - General General Date of Admission: [...] pain; on Buprenorphine patch who presents to [facility] ER complaining of altered mental [...] expected to be greater than 48 hours. [facility] Medical History Abnormal EKG Chronic headaches Chronic pain Cocaine abuse Deep vein thrombosis of right lower extremity Depression Exogenous obesity Heroin use History of Nqqwk-Rdpbutmeq-Hbify (WPW) syndrome Hx: UTI (urinary tract infection) [...] bisacodyl 10 mg rectal suppository 10 mg DE QHS PRN Constipation 03/01/18 [History Last Taken [...] % (Auto) Cancelled, Lymph % (Auto) Cancelled, [place] % (Auto) Cancelled, Eos % (Auto) Cancelled, [...] Tear DropCells Cancelled, Ovalocytes Cancelled, Stomatocytes Cancelled, [place] Bodies Cancelled, [place] Cells Cancelled, Bite Cells Cancelled, Crenated Cell [...] treated with one dose of Iv Hydralazine. 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 Sepsis Attestation Sepsis [...] responsive hypotension Charges/Coding Visit Charges Inpatient E&M: 25138 Init Hosp L3 07/03/23 0704 <Electronically signed by Renzo De Paz DO> Cosigner Signature (if applicable): CC: Dr. Renzo De Paz DO; Dr. Lavon Vicente MD~ Signed [facility] [facility] Work Phone: 1(587) 739-578301-20-2024 Discharge summary Author Estevan Mingo [facility] July 02, 2023 11:58pm Note Date/Time July 02, 2023 1 0:45pm [facility] Medical Records Department [address] [place] [address] Emergency Department Summary 07/02/23 MR#: [id number] Acct: [id number] Name: HENRIK REED Rep #:[id number] : 1975 48 From: Estevan Aguila DO PCP: Dr. Lavon Vicente MD Status:REG E R Location: ED HPI History of Present Illness Chief Complaint: Alt LOC Narrative Narrative: 48-year-old female presenting to the ER with altered mental status. She is unable to give a history. Nurses report was limited. Last known well was dinnertime around [address] [facility] Medical History Abnormal EKG Chronic headaches Chronic pain Cocaine abuse Deep vein thrombosis of right lower extremity Depression Exogenous obesity Heroin use History of Kgkon-Ifcbprifx-Pjrbu (WPW) syndrome Hx: UTI (urinary tract infection) [...] bisacodyl 10 mg rectal suppository 10 mg DE QHS PRN Constipation 03/01/18 [History Last Taken [...] her the day before yesterday at her half-way and she was awake and alert at [...] % (Auto) Cancelled Lymph % (Auto) Cancelled [place] % (Auto)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 General General Date of Admission: 09/12/22 Date of Service: 09/12/22 Chief Complaint: SOB HPI Narrative Ms. Reed is a 47-year-old female with a history of paraplegia since 2010 with a suprapubic catheter and history of UTIs as well as DVT of right lower extremity, and morbid obesity who presented to [facility] from half-way 09/12 due to shortness of breath for [...] at present or other wounds of note. [facility] Medical History Abnormal EKG Chronic headaches Chronic pain Cocaine abuse Deep vein thrombosis of right lower extremity Depression Exogenous obesity Heroin use History of Suuak-Ssafswpbx-Kmgby (WPW) syndrome Hx: UTI (urinary tract infection) [...] bisacodyl 10 mg rectal suppository 10 mg DE QHS PRN Constipation 03/01/18 [History Last Taken [...] 84.0 H, Lymph % (Auto) 8.3 L, [place] % (Auto) 5.4, Eos % (Auto) 1.7, [...] documentation, 60minutes Charges/Coding Visit Charges Inpatient E&M: 37362 Init Hosp L2 09/12/22 1513 <Electronically signed by Shari Pastor MD> Cosigner Signature (if applicable): CC: Dr. Shari Pastor MD; Dr. Lavon Vicente MD~ Signed [facility] Work Phone: 1([phone]) 712-797302-10-[address] Beasley [facility] July 24, 2022 9:48pm Note Date/Time July 24, 2022 7:22pm [facility] Medical Records Department [address] [place] [address] Emergency Department Summary 07/24/22 MR#: [id number] Acct: [id number] Name: HENRIK REED Rep #:[id number] : 1975 47 From: Marc Beasley MD PCP: Dr. Lavon Vicente MD Status:REG E R Location: ED [facility] History of Present Illness Chief Complaint: Confusion Narrative Narrative: 47-year-old female, multiple medical problems, presents with reported confusion,and reported hypoxia. She states that she may have felt like she started feeling "confused" "this morning. She states that she is a resident of [facility], and they sent her in because they told her she was acting confused. She has had problems like this in the past when she has a urinary tract infection. In review of her EMR, she does have a suprapubic catheter. She denies any fevers or chills, but states, it nieves when she urinates. Additionally, it was reported that she was hypoxic at the half-way but she denies any fevers or chills. No cough or shortness of breath. She states she wears 4 L of oxygen at all times and that started when COVID-19 started in 2019. She has chronic headaches, and states she has had a headache today. She presents for evaluation of her reported confusion. [facility] Medical History Abnormal EKG Chronic headaches Chronic pain Cocaine abuse Deep vein thrombosis of right lower extremity Depression Exogenous obesity Heroin use History of Haxiq-Rxgwinfxb-Hxexc (WPW) syndrome Hx: UTI (urinary tract infection) [...] bisacodyl 10 mg rectal suppository 10 mg DE QHS PRN Constipation 03/01/18 [History Last Taken [...] mcg/hour weekly transdermal patch (Butrans) 1 patch [id number] pain 06/04/22 [History Last Taken Unknown] cefdinir [...] no shortness of breath. [facility]. Abdominal: No abdominal pain. No nausea. [...] she can be discharged back to the [facility] facility. Regarding her reported hypoxia, so only certain positions that she lies in, and she has been satting well on her nasal cannula oxygen here. Furthermore, I reviewed her half-way paperwork independently and there is a DNR comfort care only order from the [facility]. I feel she be discharged back to the [facility] facility. Disposition is discharged in stable condition. [...] % (Auto) 58.0 Lymph % (Auto) 32.8 [place] % (Auto) 5.5 Eos % (Auto) 3.1 [...] Clarity Turbid Urine pH 7.0 Ur Specific [place] 1.010 Urine Protein 30 H Urine Glucose [...] (Auto) Neut % (Auto) Lymph % (Auto) [place] % (Auto) Eos % (Auto) Baso % [...] Color Urine Clarity Urine pH Ur Specific [place] Urine Protein Urine Glucose (UA) Urine Ketones [...] Signed: Bradley Matthews MD at 20:32 EST Reading Location ID and State: [address] [place] [address] Tel , Service support , Discharge Plan Triage Chief Complaint: Confusion ED Provider: Mrac Beasley Dx/Rx/DC Orders Clinical Impression: UTI (urinary [...] Pain) bisacodyl 10 MG suppository 10 mg DE QHS PRN (Reason: Constipation) omeprazole 20 MG [...] - As soon as possible Disposition Disposition: Usp Facility Discharge Location: [facility] What to do if you have Problems For any increased pain, shortness of breath, bleeding, nausea or vomiting, chestpain, or any unexpected problems, contact your Primary Care Provider. Call [facility] ([phone]) or report to the closest Emergency Room. Call 911 if necessary. 07/24/222147 <Electronically signed by Marc Beasley MD> Cosigner Signature (if applicable): CC: Dr. Lavon Vicente MD ~ Signed [facility] Work Phone: 1(722) 624-167402-14-2022 Hospital Discharge instructions Patient Education 07/28/2021 17:04:30 1-[facility] Discharge Instructions Template (03/2018)(CUSTOM) JUAN JOSE SAME [...] us better serve our patients. Form: 1522 (44732) R: 09/20 Follow Up Care 05/19/2021 14:15:41 With:MAGDY VOGT MD, [facility], Urology Service Address: [phone] When: Unknown Comments:Follow-up as scheduled [facility] 08-04-2021 Evaluation + Plan note Future Appointments Future Scheduled Tests Laboratory* Basic Metabolic Panel 01/15/21 * Basic Metabolic Panel 04/30/21 * Urine Culture 04/30/21 * Complete Blood Count 04/30/21 Radiology* XR Abdomen AP 01/15/21 [facility] 08-04-2021 Evaluation + Plan note Future Scheduled Tests Laboratory* Basic Metabolic Panel 01/15/21 * Basic Metabolic Panel 04/30/21 * Urine Culture 04/30/21 * Complete Blood Count 04/30/21 Radiology* XR Abdomen AP 01/15/21 * XR Abdomen AP 09/08/21 [facility] Consugb note Author Kristy Crawford [facility] July 08, 2023 1:38pm Note Date/Time July 08, 2023 1 :38pm [facility] Medical Records Department [address] [place] [address] Counseling Note - Pharmacy 07/08/23 1338 MR#: [id number] Acct: [id number] Name: HENRIK REED Rep #:[id number] : 1975 48 From: Kristy Crawford PCP: Dr. Lavon Vicente MD Status:ADM I N Y Location: [place] [address] Pharmacy [place] Med Reconciliation Pharmacy Service has performed discharge [...] bisacodyl 10 mg rectal suppository 10 mg DE QHS PRN Constipation 03/01/18 omeprazole 20 mg [...] Signature (if applicable): Date CC: ~ Signed [facility] Work Phone: Consult note Author Charo Joseph [facility] Note Date/Time March 02, 2025 12:48pm [facility] Medical Records Department [address] [place] [address] Anesthesia Postop Eval I 03/02/25 1246 MR#: [id number] Acct: [id number] Name: HENRIK REED Rep #:[id number] : 1975 50 From: Charo Joseph CLAY MOLDER PCP: Dr. Lavon Vicente MD Status:REG S DC Y Race: C Location: [place] [address] Anesthesia: Postop Eval I Current Vital Signs [...] 03/02/25 1248 <Electronically signed by Charo levy CLAY MOLDER> Date _ Charo Joseph CLAY MOLDER Pauigner Signature: Date CC: ~ Signed [facility] Work Phone: Consult note Author Corey Lauren [facility] Note Date/Time March 02, 2025 1:23pm [facility] Medical Records Department [address] [place] [address] Anesthesia Postop Eval II 03/02/25 1322 MR#: [id number] Acct: [id number] Name: HENRIK REED Rep #:[id number] : 1975 50 From: Corey Lauren MD PCP: Dr. Lavon Vicente MD Status:REG S DC Y Race: C Location: [place] [address] Anesthesia Postop Eval I Sum Postop Eval Completion status Anesthesia document: Postop Eval 1 completed: Yes Anesthesia Postop Eval I Summary Anesthesia Postop Eval I Summary: Anesthesia Postop Eval I: Assessment Summary Airway patent Yes 03/02/25 12:48 [email or web address] [email or web address] Spontaneous unlabored Yes 03/02/25 12:48 [email or web address] [email or web address] respirations Mental status Awake,Calm 03/02/25 12:48 [email or web address] [email or web address] nausea No 03/02/25 12:48 [email or web address] [email or web address] Vomiting No 03/02/25 12:48 [email or web address] [email or web address] Anesthesia Postop Eval I: Fluid Summary Crystalloid volume administer 300 03/02/25 12:48 [email or web address] [email or web address] (ml) Colloids volume administered ( ml) Blood Product volume administered (ml) Total IV fluid infused 300 03/02/25 12:48 [email or web address] Anesthesia Postop Eval I: Summary Notes Anesthesia Complication No 03/02/25 12:48 [email or web address] Anesthesia Complication Comment: Post-operative progress note Anesthesia: Postop Eval II Evaluation Mental status: Awake Pain Level: 3 nausea: No Vomiting: No 03/02/25 1323 <Electronically signed by Corey Lauren MD > Date _ Corey Ahuja Signature: Date CC: ~ Signed [facility] Work Phone: Discharge summary Author Raad Hope [facility] July 08, 2023 12:19pm Note Date/Time July 08, 2023 1 2:10pm [facility] Medical Records Department [address] [place] [address] Transfer to [facility] MR#: [id number] Acct: [id number] Name: HENRIK REED Rep #:[id number] : 1975 48 From: Raad Whaley PCP: Dr. Lavon Vicente MD Status:ADM I N Certification of patient admission REQUIRED AT TIME OF ADMISSION. I CERTIFY THAT POST-HOSPITAL [facility] SERVICES ARE REQUIRED TO BE GIVEN ON AN IN-PATIENT BASIS BECAUSE OF THE ABOVE NAMED PATIENT'S NEED FOR [facility] CARE ON A CONTINUING BASIS FOR THE CONDITION(S) FOR WHICH HE/SHE WAS RECEIVING IN-PATIENT HOSPITAL SERVICES PRIOR TO HIS/HER TRANSFER TO THE [facility]. 07/08/23 1219<Electronically signed by Raad Hope MD> [...] 48 F was admitted on 07/02/2023 from [facility] for altered mental status. Per daughter she [...] fever) bisacodyl 10 MG suppository 10 mg DE QHS PRN (Reason: Constipation) omeprazole 20 MG [...] in before D/C Order can be placed): [facility] Facility 07/08/23 1219 <Electronically signed by Raad [...] Jacklyn Queen DO; Klaudia Mercado MD ~ [facility] Work Phone: Discharge summary Author Raad Hope [facility] July 08, 2023 12:56pm Note Date/Time July 08, 2023 1 2:56pm [facility] Medical Records Department [address] [place] [address] Discharge Summary 07/08/23 1250 MR#: [id number] Acct: [id number] Name: HENRIK REED Rep #:[id number] : 1975 48 From: Raad Whaley PCP: Dr. Lavon Vicente MD Status:ADM I N Location: [place] [address] Providers Date of Admission: 07/03/23 Date of [...] of Tele-Neurology Consult: Yes 07/03/23 00:50 Consult: Coil Shaper / Pulmonary Medicine Routine Consulting Provider: Intensivists/Pulmonary [...] 48 F was admitted on 07/02/2023 from [facility] for altered mental status. Per daughter she [...] size was done and a new 22 Niuean suprapubic catheter was inserted. Successful removal of [...] 23:56 EST Reading Location ID and State: [id number] / [employer] Tel , Service support , Brain CT [...] bisacodyl 10 mg rectal suppository 10 mg DE QHS PRN Constipation 03/01/18 omeprazole 20 mg [...] % (Auto) 56.9, Lymph % (Auto) 34.4, [place] % (Auto) 7.6, Eos % (Auto) 0.0, [...] 5 days. 07/03/23 02:05 Urine Catheter - Mccarhty Urine Culture - Final Pseudomonas aeruginosa Enterococcus [...] fever) bisacodyl 10 MG suppository 10 mg DE QHS PRN (Reason: Constipation) omeprazole 20 MG [...] in before D/C Order can be placed): [facility] Facility Charges/Coding Visit Charges Inpatient E&M: 30928 Disch Hosp >30min 07/08/23 1256 <Electronically signed by Raad Hope MD> Cosigner Signature (if applicable): CC: Dr. Lavon Vicente MD; Dr. Raad Hope MD~ Signed [facility] Work Phone: evaluation + Plan note Future Appointments Appointment Date:04/30/2021 01:40:00 PM Scheduled Provider:LONI PAGE Location:[facility] Appointment Type:URO OV Future Scheduled Tests Laboratory* Basic Metabolic Panel 01/15/21 Radiology* XR Abdomen AP 01/15/21 [facility] evaluation + Plan note Future Appointments Appointment Date:06/21/2023 02:40:00 PM Scheduled Provider:LONI PAGE Location:UROLOGY Appointment Type:URO OV Future Scheduled Tests Radiology* CT Abdomen and Pelvis w/o contrast 04/21/23 [facility] Evaluation + Plan note Future Appointments Appointment Date:02/02/2024 03:00:00 PM Scheduled Provider:LONI PAGE Location:UROLOGY Appointment Type:URO OV Future Scheduled Tests Radiology* XR Abdomen AP 02/02/24 * US Renal 09/02/23 [facility] evaluation + Plan note Future Appointments Appointment Date:02/02/2024 03:00:00 PM Scheduled Provider:LONI PAGE Location:UROLOGY Appointment Type:URO OV [facility] Evaluation + Plan note Future Appointments Appointment Date:03/17/2024 10:20:00 AM Scheduled Provider:CHERIE RENEE MD Location:UROLOGY Appointment Type:URO OV Post Op Future Scheduled Tests Laboratory* Basic Metabolic Panel 02/02/24 * Complete Blood Count 02/02/24 [facility] evaluation noteNo assessment information available [facility] Work Phone: Evaluation note* Diagnosis Onset Date Resolution Status Encephalopathy acute Pneumonia acute Urinary tract infection acut e Quadriparesis chronic Spinal cord injury 2010 chronic [facility] Work Phone: Evaluation note* Diagnosis Onset Date Resolution Status Altered mental status acute Encephalopathy acute Pneumonia acute Urinary tract infection acut e Quadriparesis chronic Spinal cord injury 2010 chronic [facility] Work Phone: Evaluation note* Diagnosis Onset Date Resolution Status Pneumonia acute Urinary tract infection acut e Quadriparesis chronic Spinal cord injury 2010 chronic Altered mental status resolv ed Encephalopathy resolved [facility] Work Phone: Evaluation note* Diagnosis Onset Date Resolution Status Pneumonia acute Urinary tract infection acut e Quadriparesis chronic Spinal cord injury 2010 chronic Altered mental status resolv ed Encephalopathy resolved Pneumonia acute [facility] Work Phone: Evaluation note* Diagnosis Onset Date Resolution Status Pneumonia acute Urinary tract infection acut e Quadriparesis chronic Spinal cord injury 2010 chronic Altered mental status resolv ed Encephalopathy resolved Pneumonia resolved [facility] Work Phone: Evaluation note* Diagnosis Bladder stones- Primary Other calculus in bladder Paraplegia (HCC) [facility] Onset Date Resolution Status Pneumonia resolved [facility] Work Phone: Evaluation note* Diagnosis Onset Date Resolution Status Pneumonia resolved UTI (urinary tract infection) acute Quadriparesis chronic Suprapubic catheter chronic [facility] Work Phone: Evaluation note* Diagnosis Onset Date Resolution Status Pneumonia resolved Candidiasis acute UTI (urinary tract infection) acute VRE infection (vancomycin resistant Enterococcus) acute Quadriparesis chronic Suprapubic catheter chronic [facility] Work Phone: Evaluation note* Diagnosis Onset Date Resolution Status Candidiasis acute UTI (urinary tract infection) acute VRE infection (vancomycin resistant Enterococcus) acute Quadriparesis chronic Suprapubic catheter chronic [facility] Work Phone: Evaluation note* Diagnosis Onset Date Resolution Status Seizure acute [facility] Work Phone: Evaluation note* Diagnosis Onset Date Resolution Status Seizure acute Sepsis acute UTI (urinary tract infection) acute VRE infection (vancomycin resistant Enterococcus) acute [facility] Work Phone: Evaluation note* Diagnosis Onset Date Resolution Status UTI (urinary tract infection) acute VRE infection (vancomycin resistant Enterococcus) acute Sepsis resolved [facility] Work Phone: History and physical note Author Dr. Pastor [facility] September 12, 2022 3:13pm Note Date/Time September 12, 2022 2:55 pm [facility] Medical Records Department [address] [place] [address] H&P Exam - Hospitalist 09/12/22 1449 MR#: [id number] Acct: [id number] Name: HENRIK REED Rep #:[id number] : 1975 47 From: Shari Pastor MD PCP: Dr. Lavon Vicente MD Status:ADM I N Location: [place] [address] HPI - General General Date of Admission: 09/12/22 Date of Service: 09/12/22 Chief Complaint: SOB HPI Narrative Ms. Reed is a 47-year-old female with a history of paraplegia since 2010 with a suprapubic catheter and history of UTIs as well as DVT of right lower extremity, and morbid obesity who presented to [facility] from half-way 09/12 due to shortness of breath for [...] at present or other wounds of note. [facility] Medical History Abnormal EKG Chronic headaches Chronic pain Cocaine abuse Deep vein thrombosis of right lower extremity Depression Exogenous obesity Heroin use History of Ofmtx-Swfflcgem-Rqsbw (WPW) syndrome Hx: UTI (urinary tract infection) [...] bisacodyl 10 mg rectal suppository 10 mg DE QHS PRN Constipation 03/01/18 [History Last Taken [...] 84.0 H, Lymph % (Auto) 8.3 L, [place] % (Auto) 5.4, Eos % (Auto) 1.7, [...] documentation, 60minutes Charges/Coding Visit Charges Inpatient E&M: 88264 Init Hosp L2 09/12/22 1513 <Electronically signed by Shari Pastor MD> Cosigner Signature (if applicable): CC: Dr. Shari Pastor MD; Dr. Lavon Vicente MD~ Signed [facility] Work Phone: Hospital course Narrative No data available for this section [facility] Hospital Discharge instructions No data available for this section [facility] Hospital Discharge instructions Additional Instructions You will have an order for antibiotics when you return to [facility]. [facility] Work Phone: Hospital Discharge instructions Additional Instructions Hemoglobin is stable today. While you are having bleeding from your vagina the exact cause is not clear. I spoke with the senior energy trader who recommends follow-up in the next week or so. If you start passing large lots multiple times, soak through a pad an hour for 2 to 3 hours in a row, become lightheaded or have a change in vital signs please return to the emergency room. Otherwise you should be able to follow-up with a senior energy trader.[facility] Work Phone: Progress note No data available for this section [facility] Reason for referral (narrative)* Diagnostic Procedure Only (Routine) - Authorized Specialty Diagnoses / Procedures Referred By Contac t Referred To Contact US IMAGING Diagnoses Bladder stones Procedures US KIDNEY/BLADDER US RETROPERITONEAL REAL TIME W/IMAGE COMPLETE Rosa Maria Martinez PA-C [address] [place] [address] Us Imaging Referral ID Status Reason Start Date Expiration Date Visits Requested Visits Authorized [id number] Authorized Auto-Generat ed Referral 10/06/2022 11/05/2023 1 1 [facility] for referral (narrative)No reason for referral information [facility]WC[facility] Work Phone: Chief Complaint and Reason for Visit Chief Complaint [facility] Chief Complaint [facility] LAB WOR K [facility]WORK [facility] Chief Complaint [facility] LABWORK [facility] WORK Chief Complaint [facility] LABWORK [facility] WORK [facility]WORK [facility] WORK Chief Complaint [facility] LAB WOR K [facility]WORK CH[facility] LAB WORK [facility] WORK Chief Complaint [facility] LAB WOR K [facility] LABWORK [facility] LAB WORK [facility] LAB WORK [facility] LABWORK Chief Complaint [facility] LABWORK [facility] LAB WORK [facility] LAB WORK [facility] LABWORK [facility] LAB WORK Chief Complaint [facility] LAB WOR K [facility] LAB WORK [facility] LABWORK [facility] LAB WORK [facility] LAB WORK Chief Complaint [facility] LAB WOR K [facility] LABWORK [facility] LAB WORK [facility] LAB WORK AMS Reason for Visit Encephalopathy Pneumonia Urinary tract infection Quadriparesis Spinal cord injury Chief Complaint [facility] LAB WOR K [facility] LABWORK [facility] LAB WORK [facility] LAB WORK AMS AMS AMS AMS Reason for Visit Altered mental statu s Encephalopathy Pneumonia Urinary tract infection Quadriparesis Spinal cord injury Chief Complaint [facility] LAB WOR K AMS AMS AMS AMS [facility] LABWORK CONFUSION Reason for Visit Pneumonia Urinary tract infection Quadriparesis Spinal cord injury Altered mental status Encephalopathy Chief Complaint AMS AMS AMS AMS [facility] LABWORK CONFUSION UTI, PNA Reason for Visit Pneumonia Urinary tract infection Quadriparesis Spinal cord injury Altered mental status Encephalopathy Pneumonia Chief Complaint AMS AMS AMS AMS [facility] LABWORK CONFUSION UTI, PNA UTI, PNA UTI, PNA Reason for Visit Pneumonia Urinary tract infection Quadriparesis Spinal cord injury Altered mental status Encephalopathy Pneumonia Chief Complaint AMS AMS AMS [facility] LABWORK CONFUSION UTI, PNA UTI, PNA UTI, PNA LABWORK [facility] LABWORK Reason for Visit Pneumonia Urinary tract infection Quadriparesis Spinal cord injury Altered mental status Encephalopathy Pneumonia Chief Complaint [facility] LABWORK CONFUSION UTI, PNA UTI, PNA UTI, PNA LABWORK [facility] LABWORK Reason for Visit Pneumonia Chief Complaint CONFUSION UTI, PNA UTI, PNA UTI, PNA LABWORK [facility] LABWORK ALT LOC Hematuria Reason for Visit Pneumonia Chief Complaint CONFUSION UTI, PNA UTI, PNA UTI, PNA LABWORK [facility] LABWORK ALT LOC Hematuria [facility] LABWORK Reason for Visit Pneumonia Chief Complaint CONFUSION UTI, PNA UTI, PNA UTI, PNA LABWORK [facility] LABWORK ALT LOC Hematuria [facility] LABWORK UTI Reason for Visit Pneumonia UTI (urinary tract infection) Quadriparesis Suprapubic catheter Chief Complaint CONFUSION UTI, PNA UTI, PNA UTI, PNA LABWORK [facility] LABWORK ALT LOC Hematuria [facility] LABWORK UTI Urinary tract infection Urinary tract infection Reason for Visit Pneumonia Candidiasis UTI (urinary tract infection) VRE infection (vancomycin resistant Enterococcus) Quadriparesis Suprapubic catheter Chief Complaint ALT LOC Hematuria [facility] LABWORK UTI Urinary tract infection Urinary tract infection Vaginal Bleeding Reason for Visit Candidiasis UTI (urinary tract infection) VRE infection (vancomycin resistant Enterococcus) Quadriparesis Suprapubic catheter Chief Complaint ALT LOC Hematuria [facility] LABWORK UTI Urinary tract infection Urinary tract infection [facility] LABWORK Vaginal Bleeding Reason for Visit Candidiasis UTI (urinary tract infection) VRE infection (vancomycin resistant Enterococcus) Quadriparesis Suprapubic catheter Chief Complaint ALT LOC Hematuria [facility] LABWORK UTI Urinary tract infection Urinary tract infection [facility] LABWORK Vaginal Bleeding [facility] WORK [facility] WORK Reason for Visit Candidiasis UTI (urinary tract infection) VRE infection (vancomycin resistant Enterococcus) Quadriparesis Suprapubic catheter Chief Complaint ALT LOC Hematuria [facility] LABWORK UTI Urinary tract infection Urinary tract infection [facility] LABWORK Vaginal Bleeding [facility] WORK [facility] WORK LABWORK Reason for Visit Candidiasis UTI (urinary tract infection) VRE infection (vancomycin resistant Enterococcus) Quadriparesis Suprapubic catheter Chief Complaint [facility] LAB WOR K SEPSIS, UTI, AMS Reason [...] UTI WITH SEPSIS AND SEPTIC ENCEPHALOPATHY LABWORK [facility] WORK Reason for Visit UTI (urinary [...] UTI WITH SEPSIS AND SEPTIC ENCEPHALOPATHY LABWORK [facility] LAB WORK [facility] LAB WORK Reason for Visit UTI (urinary [...] UTI WITH SEPSIS AND SEPTIC ENCEPHALOPATHY LABWORK [facility] LAB WORK [facility] LAB WORK LABWORK Reason for Visit UTI [...] UTI WITH SEPSIS AND SEPTIC ENCEPHALOPATHY LABWORK [facility] LAB WORK [facility] LAB WORK LABWORK LABWORK Reason for Visit [...] UTI WITH SEPSIS AND SEPTIC ENCEPHALOPATHY LABWORK [facility] WORK [facility] WORK LABWORK LABWORK [facility] WORK LABWORK UTI Reason for Visit UTI (urinary tract i nfection) VRE infection (vancomycin resistant Enterococcus) Sepsis Chief Complaint Admit Date [facility] LAB WORK June 12 5:00am [facility] WORK July 03, 2024 7:50am [facility] WORK July 05, 2024 4:00pm LABWORK July 07, 2024 5 :00am LABWORK July 14, 2024 5 :00am [facility] WORK July 25 5:00am [facility] WORK September 06, 2024 5 :00am Chief Complaint Admit Date [facility] LAB WORK July 03, 2024 7:50am [facility] WORK July 05, 2024 4:00pm LABWORK July 07, 2024 5 :00am LABWORK July 14, 2024 5 :00am [facility] WORK July 25 5:00am [facility] WORK September 06, 2024 5 :00am LABWORK October 06, 2024 6:4 0am Chief Complaint Admit Date LABWORK December 04, 2024 5:00 am [facility] LAB WORK December 05, 2024 5: 00am [facility] WORK December 19, 2024 5:0 0am LAB WORK December 26, 2024 5:00 am [facility] LAB WORK February 21 1:08pm Family History [...] Will Yes May 27 7:33pm Power of Customer Sales Representative Yes May 27, 2021 7:33pm Advance Directive Response Recorded Date/ Time Advance Directives No March 16, 2019 11:32am Living Will Yes May 27 6:33pm Power of Customer Sales Representative Yes May 27, 2021 6:33pm Advance Directive Response Recorded Date/ Time Name of Medical Power of Customer Sales Representative ZARI GURROLA June 03, 2022 6:13am Advance Directives No March 16, 2019 11:32am Living Will Yes June 03 6:13am Power of Customer Sales Representative Yes June 03, 2022 6:13am Advance Directive Response Recorded Date/ Time Name of Medical Power of Customer Sales Representative Zari gurrola June 03, 2022 8:58am Advance Directives No March 16, 2019 11:32am Living Will No June 03 8:58am Power of Customer Sales Representative Yes June 03, 2022 8:58am Advance Directive Response Recorded Date/ Time Name of Medical Power of Customer Sales Representative Zari Alvarado June 03, 2022 8:58am Name of Medical Power of Customer Sales Representative ZARI ALVARADO- DAUGHTER July 24, 2022 7:19pm Advance Directives No March 16, 2019 11:32am Living Will No July 24 023 7:19pm Power of Customer Sales Representative Yes July 24, 2022 7:19pm Advance Directive Response Recorded Date/ Time Name of Medical Power of Customer Sales Representative Zari Alvarado June 03, 2022 9:58am Name of Medical Power of Customer Sales Representative ZARI ALVARADO- DAUGHTER July 24, 2022 8:19pm Name of Medical Power of Customer Sales Representative ZARI SERRANO- DAUGHTER September 12, 2022 9:29am Advance Directives No March 16, 2019 12:32pm Living Will Yes September 12, 2022 9:29am Power of Customer Sales Representative Yes September 12 9:29am Advance Directive Response Recorded Date/ Time Name of Medical Power of Customer Sales Representative Zari Alvarado June 03, 2022 9:58am Name of Medical Power of Customer Sales Representative ZAIR ALVARADO- DAUGHTER July 24, 2022 8:19pm Name of Medical Power of Customer Sales Representative ZARI SERRANO- DAUGHTER September 12, 2022 9:29am Advance Directives No March 16, 2019 12:32pm Living Will No September 12, 2022 4:26pm Power of Customer Sales Representative No September 12 4:26pm Advance Directive Response Recorded Date/ Time Name of Medical Power of Customer Sales Representative ZARI ALVARADO- DAUGHTER July 24, 2022 8:19pm Name of Medical Power of Customer Sales Representative ZARI SERRANO- DAUGHTER September 12, 2022 9:29am Advance Directives No March 16, 2019 12:32pm Living Will No September 12, 2022 4:26pm Power of Customer Sales Representative No September 12 4:26pm Advance Directive Response Recorded Date/ Time Name of Medical Power of Customer Sales Representative ZARI ALVARADO- DAUGHTER July 24, 2022 8:19pm Name of Medical Power of Customer Sales Representative ZARI SERRANO- DAUGHTER September 12, 2022 9:29am Advance Directives No March 16, 2019 12:32pm Living Will No November 09, 2022 2 :48pm Power of Customer Sales Representative No November 09, 2022 2:48pm Advance Directive Response Recorded Date/ Time Name of Medical Power of Customer Sales Representative ZARI ALVARADO- DAUGHTER July 24, 2022 8:19pm Name of Medical Power of Customer Sales Representative ZARI SERRANO- DAUGHTER September 12, 2022 9:29am Advance Directives No March 16, 2019 12:32pm Living Will No November 14, 2022 8 :33pm Power of Customer Sales Representative No November 14, 2022 8:33pm Advance Directive Response Recorded Date/ Time Name of Medical Power of Customer Sales Representative ZARI ALVARADO- DAUGHTER July 24, 2022 8:19pm Name of Medical Power of Customer Sales Representative ZARI SERRANO- DAUGHTER September 12, 2022 9:29am Advance Directives No March 16, 2019 12:32pm Living Will No November 15, 2022 1 2:56am Power of Customer Sales Representative No November 15, 2022 12:56am Advance Directive Response Recorded Date/ Time Name of Medical Power of Customer Sales Representative [facility] January 26, 2023 8:12pm Advance Directives No March 16, 2019 12:32pm Living Will No January 26 8:12pm Power of Customer Sales Representative Yes January 26, 2 023 8:12pm Advance Directive Response Recorded Date/ Time Advance Directives No March 16, 2019 11:32am Living Will No July 02 10:37pm Power of Customer Sales Representative No July 02, 2023 10:37pm Advance Directive Response Recorded Date/ Time Advance Directives No March 16, 2019 12:32pm Living Will No July 02 11:37pm Power of Customer Sales Representative No July 02, 2023 11:37pm Advance Directive Response Recorded Date/ Time Advance Directives No March 16, 2019 12:32pm Advance Directive Response Recorded Date/ Time Do you have a Healthcare Power of Customer Sales Representative? 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 Brarie Berkowitz MD Other Provider Active Dr. Tia [...] Fernando Salcedo MD Other Provider Active Dr. rUbano Oquendo MD Other Provider Active Dr. Duane Reyna MD Other Provider Active Dr. Jono Sharp MD Other Provider Active Dr. Heidi Carmona MD Other Provider Active Klaudia Mercado MD Other Provider Active Dulce Livingston MD Other Provider Active Yaya Mindel , [place] Other Provider Active Beba Lewis [...] Active Tyrell Rodriguez MD Other Provider Active Haprer Quach MD Other Provider Active Dr. Wendy [...] Dulce Livingston MD Other Provider Active Yaya Shayxavier , [place] Other Provider Active Beba Lewis [...] Referring Provider, Other Provider Active Dr. Margarita Coretz MD Other Provider Active Dr. Alana Cavazos [...] Minor MD Other Provider Active Dr. Roman Saundesr MD Other Provider Active Dr. Keven Joseph [...] Alfredo MD Other Provider Active Dr. Shelly Fernanedz MD Other Provider Active Dr. John Minor [...] physician Active Start: February 21, 2025 Dr. Kori SERRANO MD Attending physician [...] or prosecute any alcohol or drug abuse patient.[facility] Reason for Visit (unrecogniz ed section and content) Reason Comments New Patient INFORMATION SOURCE (unrecogn ized section and content) DATE CREATED AUTHOR 11/23/2022 [facility] DATE CREATED AUTHOR AUTHOR'S ORGANIZ ATION 02/04/2024 [facility] ([place]) DATE CREATED AUTHOR AUTHOR'S ORGANIZ ATION 04/17/2025 [facility] DATE CREATED AUTHOR AUTHOR'S ORGANIZ ATION 04/22/2025 [facility] FOR RECORDS PERTAINING TO PATIENTS WHO [...] BE BASED ON THE PRIMARY CLINICAL RECORDS. [employer] provides no warranty or guarantee of the accuracy or completeness of information in this document.
[2025-05-22 10:32] LABS: AST(SGOT) 13 U/L (<=31); Alanine Aminotransfer ALT/SGPT 13 U/L (<=34); Albumin, Serum 3.8 g/dL (3.5-5.0); Alkaline Phosphatase 95 U/L (35-104); Anion Gap 9 (5-15); BUN 22 mg/dL (4-19); BUN/Creat Ratio 72.3 RATIO (10-20); Calcium,Total 9.2 mg/dL (7.6-11.0); Carbon Dioxide 34.0 mmol/L (21.0-32.0); Chloride 97 mmol/L (98-108); Globulin 3.6 g/dL (2.2-4.2); Glucose 103 mg/dL (70-99); Potassium 4.1 mmol/L (3.3-5.1); T4 Total, Thyroxin 7.6 ug/dL (4.8-13.9)
[2025-05-22 10:41] LABS: Hematocrit 34.1 % (37-47); Hemoglobin 10.1 g/dL (12.0-15.0); Mean Corp Hgb Conc 29.6 g/dL (32-36); Mean Corpuscular Volume 80.8 fL (81-99); Mean Platelet Vol. 9.7 fl (6.2-12.0); Platelet Count 391 K/mm3 (150-450); RBC Distribution Width CV 15.9 % (11.6-14.6); RBC Distribution Width SD 45.9 fl (35.1-43.9); Red Blood Count 4.22 M/mm3 (4.2-5.4); White Blood Count 11.0 K/mm3 (4.4-11.0)
== END ==
LOC: OLS.SW 04:00
PROVIDERS: PCP Internal Medicine; Referring Provider Internal Medicine; Visit Provider Internal Medicine
DX: G62.9 Polyneuropathy, unspecified (principal); Z79.899 Other long term (current) drug therapy
CPT/HCPCS: 36415; 80053; 84436; 84443; 85027